=== PATIENT | female | born 1940 | race Two or more races ===

== ENCOUNTER 2018-01-15 13:59 | Inpatient (IN) | payer OTHER, BC ==
--- NOTE | 2018-01-15 14:09 | PDOC ---
History of Present Illness - General Stated Complaint: Ingestion Time Seen by Provider: 01/15/18 14:09 History Source: Family - History of Present Illness Initial Comments: 01/15/18 15:40 77 year old female with PMH kidney transplant (7-8 years ago), atrial fibrillation (unknown if anticoagulated), CKD on HD T/T/S, DM, HTN, HLD BIBA from [facility]. Per pt's son she was being treated for a chronic wound infection, he did not like the care she was receiving there, so he signed out AMA, called EMS and had her brought here. Per son pt's current complaints are altered mental status, paleness, foul-smelling yellow diarrhea. He is concerned she is anemic and has C. diff again. Patient's recent clinical history per the son: Pt was diagnosed with walking pneumonia 01/2017, was given antibiotics. Pt developed C. diff 02/2017 from antibiotic use. Pt was being treated for recurrent c. 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 He states that as a result of her illness her transplanted kidney failed. Pt was born with only one kidney, had a transplant when the one kidney failed 7-8 years ago, son does not know why. Pt had her one transplanted kidney removed 09/2017. He states that as a result of her diabetes and other comorbidities the surgical incision site has been complicated by infection and delayed healing. He states that she had a blood transfusion last sunday, 2 units , he does not know why. She was scheduled to get a PICC line to treat the chronic wound infection at [facility], pt left AMA prior to PICC line being placed. He states she has not had vascular access for days, and that she has been being treated with an antibiotic with dialysis for her wound. Allergies - NKDA Past History - Past Medical History Allergies/Adverse Reactions: Allergies Allergy/AdvReac Type Severity Reaction Status Date / Time No Known Allergies Allergy Verified 01/15/18 14:21 Home Medications: Ambulatory Orders Unobtainable 01/15/18 Review of Systems - Review of Systems Able to Perform ROS?: No Comments:: 01/15/18 15:50 ROS unable to be performed due to AMS. *Physical Exam - Physical Exam Comments: 01/15/18 15:50 Constitutional: Cachectic. contracted. HEENT: head is normocephalic, atraumatic. EOMI. PERRLA. Neck: supple. Full ROM. Heart: regular rhythm. no murmurs, rubs or gallops. Lungs: clear to auscultation bilaterally. no crackles, rhonchi or wheezing. no stridor. Abdomen: linear surgical scar to RLQ, dehiscence noted, no drainage, no surrounding erythema. soft. mild tenderness to palpation of RLQ at the incision site. normal bowel sounds. no rebound, guarding, masses. Extremities: AV fistula to left arm, pulse palpated. Peripheral pulses intact. No lower extremity edema. Neurological: CN 2-12 grossly intact. Moves all four extremities. Psych: awake, alert. combative. does not follow commands. confused. Skin: 9x6 cm sacral decubitus ulcer, stage 1. 8 cm area of erythema to left hip. dressings to bilateral heels, no wound to bilateral heels. Heart Score/ECG Review - ECG Impressions Comment:: 01/15/18 17:04 Rate 86, regular rhythm, normal axis, no acute ST changes. ED Treatment Course - LABORATORY CBC & Chemistry Diagram: 01/18/18 06:00 01/18/18 06:00 Medical Decision Making - Medical Decision Making 01/15/18 15:52 77 year old female with PMH kidney transplant (7-8 years ago), atrial fibrillation (unknown if anticoagulated), CKD on HD T/T/S, DM, HTN, HLD BIBA from [facility]. Per pt's son she was being treated for a chronic wound infection, he did not like the care she was receiving there, so he signed out AMA, called EMS and had her brought here. Per son pt's current complains are altered mental status, paleness, foul-smelling yellow diarrhea. He is concerned she is anemic and has C. diff again. Patient's clinical history per the son: Pt was diagnosed with walking pneumonia 01/2017, was given antibiotics. Pt developed C. diff 02/2017 from antibiotic use. Pt was being treated for recurrent c. 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 He states that as a result of her illness her transplanted kidney failed. Pt was born with only one kidney, had a transplant when the one kidney failed 7-8 years ago, son does not know why. Pt had her one transplanted kidney removed 09/2017. He states that as a result of her diabetes and other comorbidities the surgical incision site has been complicated by infection and delayed healing. He states that she had a blood transfusion last sunday, 2 units , he does not know why. She was scheduled to get a PICC line to treat the chronic wound infection at [facility], pt left AMA prior to PICC line being placed. He states she has not had vascular access for days, and that she has been being treated with Vancomycin with dialysis for her wound. Wounds to sacrum, left hip, RLQ - see HPI. Initial Vital Signs Pulse Resp BP Pulse Ox 83 18 111/55 L 99 01/15/18 14:07 01/15/18 14:07 01/15/18 14:07 01/15/18 14:07 No tachycardia. Rectal temperature 98.9F. Mild hypotension, likely dehydrated, possible early sepsis. Nurse was unable to get vascular access. Will attempt US guided IV. 01/15/18 16:22 Line secured using US guided IV in the right upper arm. Urine is brown and turbid. 01/15/18 16:28 Pt is combative, trying to scratch and hit medical equipment sales. 1 mg IV ativan ordered. IV infiltrated with ativan injection. 01/15/18 17:03 Line secured using US guided IV in the right AC. Blood work sent. 01/15/18 17:33 Urine Test Results Urine Color Yellow 01/15/18 16:25 Urine Appearance Turbid 01/15/18 16:25 Urine pH 7.0 (5.0-8.0) 01/15/18 16:25 Ur Specific [place] 1.014 (1.001-1.035) 01/15/18 16:25 Urine Protein 2+ (NEGATIVE) H 01/15/18 16:25 Urine Glucose (UA) Negative (NEGATIVE) 01/15/18 16:25 Urine Ketones Negative (NEGATIVE) 01/15/18 16:25 Urine Blood 3+ (NEGATIVE) H 01/15/18 16:25 Urine Nitrite Negative (NEGATIVE) 01/15/18 16:25 Urine Bilirubin Negative (<2.0 mg/dL) 01/15/18 16:25 Ur Leukocyte Esterase 2+ (NEGATIVE) H 01/15/18 16:25 Urine Bacteria Many /hpf (NONE SEEN) 01/15/18 16:25 UA displays evidence of UTI. - Pending urine culture. 01/15/18 17:[address] Presley, who was taking care of the patient at [facility], Pt was located at [address]. She states the patient has been admitted for 144 days. She was initially admitted for pneumonia, had recurrent c. diff, had a rejection of her transplanted kidney, requiring dialysis, was anticoagulated for a DVT (2 months ago), transplanted kidney was resected, anticoagulation was stopped when CT non con of abdomen/pelvis revealed fluid collection behind non- healing surgical wound to RLQ, R/O abscess/seroma/hematoma. Surgery recommended an IV contrast CT abdomen/pelvis. They lost vascular access Sunday and were unable to do a contrast study. PICC line was attempted yesterday, but failed. Repeat attempt at PICC line was scheduled for today, family signed the patient out AMA. Hospital stay was complicated by anemia requiring multiple blood transfusions, positive guiac, family refused colonscopy. Pt was decreasing oral intake, was possibly going to get a peg tube. CBC WBC 9.6 K/mm3 (4.0-10.0) 01/15/18 16:49 RBC 2.67 M/mm3 (3.60-5.2) L 01/15/18 16:49 Hgb 8.3 GM/dL (10.7-15.3) L 01/15/18 16:49 Hct 25.2 % (32.4-45.2) L 01/15/18 16:49 MCV 94.5 fl (80-96) 01/15/18 16:49 MCH 30.9 pg (25.7-33.7) 01/15/18 16:49 MCHC 32.7 g/dl (32.0-36.0) 01/15/18 16:49 RDW 18.6 % (11.6-15.6) H 01/15/18 16:49 Plt Count 269 K/MM3 (134-434) 01/15/18 16:49 MPV 8.9 fl (7.5-11.1) 01/15/18 16:49 Absolute Neuts (auto) 7.9 K/mm3 (1.5-8.0) 01/15/18 16:49 Neutrophils % 82.4 % (42.8-82.8) 01/15/18 16:49 Lymphocytes % 10.2 % (8-40) 01/15/18 16:49 Monocytes % 6.8 % (3.8-10.2) 01/15/18 16:49 Eosinophils % 0.2 % (0-4.5) 01/15/18 16:49 Basophils % 0.4 % (0-2.0) 01/15/18 16:49 Nucleated RBC % 0 % (0-0) 01/15/18 16:49 No leukocytosis. No left shift. CMP Sodium 139 mmol/L (136-145) 01/15/18 16:49 Potassium 4.2 mmol/L (3.5-5.1) 01/15/18 16:49 Chloride 101 mmol/L (98-107) 01/15/18 16:49 Carbon Dioxide 26 mmol/L (21-32) 01/15/18 16:49 Anion Gap 12 MMOL/L (8-16) 01/15/18 16:49 BUN 19 mg/dL (7-18) H 01/15/18 16:49 Creatinine 2.6 mg/dL (0.55-1.3) H 01/15/18 16:49 Creat Clearance w eGFR 17.80 (>60) 01/15/18 16:49 Random Glucose 66 mg/dL (74-106) L 01/15/18 16:49 Calcium 8.6 mg/dL (8.5-10.1) 01/15/18 16:49 Total Bilirubin 0.6 mg/dL (0.2-1) 01/15/18 16:49 AST 25 U/L (15-37) 01/15/18 16:49 ALT 12 U/L (13-61) L 01/15/18 16:49 Alkaline Phosphatase 143 U/L (45-117) H 01/15/18 16:49 Troponin I 0.02 ng/ml (0.00-0.05) 01/15/18 16:52 Total Protein 6.6 g/dl (6.4-8.2) 01/15/18 16:49 Albumin 1.4 g/dl (3.4-5.0) L 01/15/18 16:49 No electrolyte abnormalities. No hyperkalemia, no need for emergent dialysis at this time. Cr 2.6, secondary to CKD. Cardiac enzymes normal. Albumin low, likely secondary to malnutrition, pt is cachetic. ABG - metabolic alkalosis. 01/15/18 19:10 I discussed the case with Dr. Carpenter, who will take over care for the patient in the Emergency Department. Pending CT abdomen/pelvis with contrast. *DC/Admit/Observation/Transfer Diagnosis at time of Disposition: Post-operative infection, UTI (urinary tract infection), Altered mental status - Referrals - Patient Instructions - Post Discharge Activity
--- NOTE | 2018-01-15 14:20 | PDOC ---
Attending Attestation - Resident Resident Name: Janet Mckeon - ED Attending Attestation I have performed the following: I have examined & evaluated the patient, The case was reviewed & discussed with the resident, I agree w/resident's findings & plan, Exceptions are as noted - HPI HPI: 01/15/18 14:53 77y F hx of ESRD (on dialysis), recent pna c/b cdiff c/b renal failure sp resection of new kidney september 2017, s/p transfusion for anemia, nonhealing abd wound currently back on dialysis, has been continually hospitalized at [facility] for the majority of 2017, presents to the ED for further mangement. per family, the pt was hospitalized at [facility] and family took the patient left AMA and came directly here due to being unhappy with how they are managed at [facility]. They note she is a bit more altered than usual. The patient is unable to give much history. on exam pt is cachectic appearing confused dry mucus membranes, pulm: cta bl card: rrr, no mrg abd: soft nontender, wound on L abdomen is c/d/i will ck basic labs, will see what pt is being treated for at [facility] 01/15/18 17:52 after multiple attempts using US guided IV, 20g IV was placed in the L AC fossa successfully pt was given 2mg of ativan IM as pt was attempting to scratch and bite me during procedure. 01/15/18 18:23 per the medical team at [facility], as of most recently had a nonhealing wound and had a collection behind the wound that was pending a CT w/ contrast to evaluate what kind of collection is within her abdomen. - Physicial Exam PE: 01/15/18 19:47 see above - Medical Decision Making 01/15/18 18:30 Aries Ceferino - son - power of legislative advocate - [phone] discussed with Aries De La Vega - He is very adamant about not being transferred back to [facility], although all of his care, surgeons and history resides at [facility]. I had an extensive discussion with Aries that [facility] is the best place as there are the appropriate services that are not present at [facility] (ie: Transplant surgery). Apparently family was very unhappy with their service at [facility] and was looking to have the pt transferred out of the hospital to any other hospital. They have been unsuccessful in securing a ' lateral transfer'. So they initiated an AMA to go to another hospital (arrived via [facility] directly from med/surg floor from [facility]). 01/15/18 19:23 pt has ESRD, is dialysis dependent. pt needs a CT to further evaluate her collection. will try to get dialysis VIPIN sp CT Team will discuss with the pts Son and PoA to discuss risk of CT w/ contrast Heart Score/ECG Review - ECG Impressions Comment:: 01/15/18 17:11 Twelve-lead EKG was performed and reviewed by me. There is normal sinus rhythm with a normal rate. Rate of 86 Abnormal R wave progression Normal axis atc Interval of 516 no prior ekg for comparison
[2018-01-15] MEDS ORDERED: SODIUM CHLORIDE 1,000 ML IV STA (15:05)
[2018-01-15] MEDS ORDERED: LORazepam 2 MG/ML SDV VIAL ONE (16:23)
--- NOTE | 2018-01-15 16:41 | EKG ---
Test Reason : Blood Pressure : / mmHG Vent. Rate : 086 BPM Atrial Rate : 086 BPM P-R Int : 178 ms QRS Dur : 110 ms QT Int : 432 ms P-R-T Axes : 081 045 092 degrees QTc Int : 516 ms POOR DATA QUALITY, INTERPRETATION MAY BE ADVERSELY AFFECTED NORMAL SINUS RHYTHM ANTERIOR INFARCT , AGE UNDETERMINED PROLONGED QT ABNORMAL ECG NO PREVIOUS ECGS AVAILABLE Confirmed by MD Megha, Josh ([id number]) on 01/15/2018 4:40:53 PM Referred By: Confirmed By:Josh Cleveland MD
[2018-01-15 16:47] LABS: URINE APPEARANCE TURBID; URINE BILIRUBIN NEGATIVE (<2.0 mg/dL); URINE COLOR YELLOW; URINE GLUCOSE (UA) NEGATIVE (NEGATIVE); URINE KETONE NEGATIVE (NEGATIVE); URINE NITRITE NEGATIVE (NEGATIVE); URINE UROBILINOGEN NEGATIVE mg/dL (0.2-1.0)
[2018-01-15 17:05] LABS: URINE LEUK ESTERASE 2+ (NEGATIVE); URINE PROTEIN 2+ (NEGATIVE)
[2018-01-15 17:13] LABS: URINE BACTERIA MANY /hpf (NONE SEEN)
[2018-01-15 17:24] LABS: BASO % 0.4 % (0-2.0); EOS % 0.2 % (0-4.5); HEMATOCRIT 25.2 % (32.4-45.2); HEMOGLOBIN 8.3 GM/dL (10.7-15.3); LYMPH % 10.2 % (8-40); MCH 30.9 pg (25.7-33.7); MCHC 32.7 g/dl (32.0-36.0); MEAN CELL VOLUME 94.5 fl (80-96); MEAN PLT VOLUME 8.9 fl (7.5-11.1); MONO % 6.8 % (3.8-10.2); NEUT % 82.4 % (42.8-82.8); PLATELET COUNT 269 K/MM3 (134-434); RBC 2.67 M/mm3 (3.60-5.2); RDW 18.6 % (11.6-15.6); WHITE BLOOD COUNT 9.6 K/mm3 (4.0-10.0)
[2018-01-15 17:35] LABS: VENOUS PC02 39.6 mmHg (38-52); VENOUS PH 7.51 (7.32-7.42)
[2018-01-15 17:37] LABS: INR 1.22 (0.83-1.09); PROTHROMBIN TIME (PATIENT) 13.8 SEC (9.7-13.0)
[2018-01-15 17:39] LABS: VENOUS PO2 15.2 mmHg (28-48)
[2018-01-15 17:40] LABS: ACTIVATED PTT 28.3 SECONDS (25.2-36.5)
[2018-01-15 17:46] LABS: ALBUMIN 1.4 g/dl (3.4-5.0); ALK PHOS 143 U/L (45-117); ANION GAP 12 MMOL/L (8-16); BILIRUBIN,TOTAL 0.6 mg/dL (0.2-1); BLOOD UREA NITROGEN 19 mg/dL (7-18); CALCIUM 8.6 mg/dL (8.5-10.1); CHLORIDE 101 mmol/L (98-107); CO2 26 mmol/L (21-32); CREATININE 2.6 mg/dL (0.55-1.3); GLUCOSE,RANDOM 66 mg/dL (74-106); POTASSIUM 4.2 mmol/L (3.5-5.1); SGOT/AST 25 U/L (15-37); SGPT/ALT 12 U/L (13-61); SODIUM 139 mmol/L (136-145); TOT PROT 6.6 g/dl (6.4-8.2)
--- NOTE | 2018-01-15 19:43 | PDOC ---
*Physical Exam - Vital Signs Last Vital Signs Temp Pulse Resp BP Pulse Ox 98.8 F 73 16 110/56 L 96 01/15/18 14:30 01/15/18 18:00 01/15/18 18:00 01/15/18 18:00 01/15/18 18:00 ED Treatment Course - LABORATORY CBC & Chemistry Diagram: 01/15/18 16:49 01/15/18 16:49 - ADDITIONAL ORDERS Additional order review: Laboratory Results 01/15/18 01/15/18 01/15/18 16:52 16:49 16:49 PT with INR INR PTT (Actin FS) VBG pH POC VBG pCO2 POC VBG pO2 Mixed VBG HCO3 Sodium 139 Potassium 4.2 Chloride 101 Carbon Dioxide 26 Anion Gap 12 BUN 19 H Creatinine 2.6 H Creat Clearance w eGFR 17.80 Random Glucose 66 L Calcium 8.6 Total Bilirubin 0.6 AST 25 ALT 12 L Alkaline Phosphatase 143 H Troponin I 0.02 Total Protein 6.6 Albumin 1.4 L Urine Color Urine Appearance Urine pH Ur Specific [place] Urine Protein Urine Glucose (UA) Urine Ketones Urine Blood Urine Nitrite Urine Bilirubin Urine Urobilinogen Ur Leukocyte Esterase Urine WBC (Auto) Urine RBC (Auto) Urine Bacteria Blood Type O POSITIVE Antibody Screen Positive H 01/15/18 01/15/18 01/15/18 16:49 16:45 16:25 PT with INR 13.80 H INR 1.22 H PTT (Actin FS) 28.3 VBG pH 7.51 H POC VBG pCO2 39.6 POC VBG pO2 15.2 L* Mixed VBG HCO3 30.9 H Sodium Potassium Chloride Carbon Dioxide Anion Gap BUN Creatinine Creat Clearance w eGFR Random Glucose Calcium Total Bilirubin AST ALT Alkaline Phosphatase Troponin I Total Protein Albumin Urine Color Yellow Urine Appearance Turbid Urine pH 7.0 Ur Specific [place] 1.014 Urine Protein 2+ H Urine Glucose (UA) Negative Urine Ketones Negative Urine Blood 3+ H Urine Nitrite Negative Urine Bilirubin Negative Urine Urobilinogen Negative Ur Leukocyte Esterase 2+ H Urine WBC (Auto) 286 Urine RBC (Auto) 5 Urine Bacteria Many Blood Type Antibody Screen 01/15/18 16:49 RBC 2.67 L MCV 94.5 MCHC 32.7 RDW 18.6 H MPV 8.9 Neutrophils % 82.4 Lymphocytes % 10.2 Monocytes % 6.8 Eosinophils % 0.2 Basophils % 0.4 - Medications Given in the ED: ED Medications Discontinued Medications Generic Name Dose Route Start Last Admin Trade Name Freq PRN Reason Stop Dose Admin Sodium Chloride 1,000 mls @ 1,000 mls/hr 01/15/18 15:05 01/15/18 17:11 Normal Saline - IV 01/15/18 16:04 Not Given ASDIR STA Lorazepam 1 mg 01/15/18 16:19 01/15/18 16:38 Ativan Injection - IM 01/15/18 16:20 1 mg ONCE ONE Administration Lorazepam 1 mg 01/15/18 16:21 01/15/18 16:25 Ativan Injection - IVPUSH 01/15/18 16:22 1 mg ONCE ONE Administration Medical Decision Making - Medical Decision Making 01/15/18 19:41 Patient signed out by Dr. Mckeon (Resident) and Dr. Awan (Attending) 77 year old female presents to ED c/o 01/15/18 19:49 Case d/w patient's son 01/15/18 21:38 CT abdomen shows
--- NOTE | 2018-01-15 19:47 | PDOC ---
*Physical Exam - Vital Signs Last Vital Signs Temp Pulse Resp BP Pulse Ox 98.8 F 73 16 110/56 L 96 01/15/18 14:30 01/15/18 18:00 01/15/18 18:00 01/15/18 18:00 01/15/18 18:00 <Mohit Rios - Last Filed: 01/16/18 01:50> - Vital Signs Last Vital Signs Temp Pulse Resp BP Pulse Ox 98.8 F 73 16 110/56 L 96 01/15/18 14:30 01/15/18 18:00 01/15/18 18:00 01/15/18 18:00 01/15/18 18:00 <LateshaJoaquin - Last Filed: 01/16/18 02:38> ED Treatment Course - LABORATORY CBC & Chemistry Diagram: 01/15/18 16:49 01/15/18 16:49 - ADDITIONAL ORDERS Additional order review: Laboratory Results 01/15/18 01/15/18 01/15/18 16:52 16:49 16:49 PT with INR INR PTT (Actin FS) VBG pH POC VBG pCO2 POC VBG pO2 Mixed VBG HCO3 Sodium 139 Potassium 4.2 Chloride 101 Carbon Dioxide 26 Anion Gap 12 BUN 19 H Creatinine 2.6 H Creat Clearance w eGFR 17.80 Random Glucose 66 L Calcium 8.6 Total Bilirubin 0.6 AST 25 ALT 12 L Alkaline Phosphatase 143 H Troponin I 0.02 Total Protein 6.6 Albumin 1.4 L Urine Color Urine Appearance Urine pH Ur Specific [place] Urine Protein Urine Glucose (UA) Urine Ketones Urine Blood Urine Nitrite Urine Bilirubin Urine Urobilinogen Ur Leukocyte Esterase Urine WBC (Auto) Urine RBC (Auto) Urine Bacteria Blood Type O POSITIVE Antibody Screen Positive H 01/15/18 01/15/18 01/15/18 16:49 16:45 16:25 PT with INR 13.80 H INR 1.22 H PTT (Actin FS) 28.3 VBG pH 7.51 H POC VBG pCO2 39.6 POC VBG pO2 15.2 L* Mixed VBG HCO3 30.9 H Sodium Potassium Chloride Carbon Dioxide Anion Gap BUN Creatinine Creat Clearance w eGFR Random Glucose Calcium Total Bilirubin AST ALT Alkaline Phosphatase Troponin I Total Protein Albumin Urine Color Yellow Urine Appearance Turbid Urine pH 7.0 Ur Specific [place] 1.014 Urine Protein 2+ H Urine Glucose (UA) Negative Urine Ketones Negative Urine Blood 3+ H Urine Nitrite Negative Urine Bilirubin Negative Urine Urobilinogen Negative Ur Leukocyte Esterase 2+ H Urine WBC (Auto) 286 Urine RBC (Auto) 5 Urine Bacteria Many Blood Type Antibody Screen 01/15/18 16:49 RBC 2.67 L MCV 94.5 MCHC 32.7 RDW 18.6 H MPV 8.9 Neutrophils % 82.4 Lymphocytes % 10.2 Monocytes % 6.8 Eosinophils % 0.2 Basophils % 0.4 - Medications Given in the ED: ED Medications Discontinued Medications Generic Name Dose Route Start Last Admin Trade Name Earleq PRN Reason Stop Dose Admin Sodium Chloride 1,000 mls @ 1,000 mls/hr 01/15/18 15:05 01/15/18 17:11 Normal Saline - IV 01/15/18 16:04 Not Given ASDIR STA Lorazepam 1 mg 01/15/18 16:19 01/15/18 16:38 Ativan Injection - IM 01/15/18 16:20 1 mg ONCE ONE Administration Lorazepam 1 mg 01/15/18 16:21 01/15/18 16:25 Ativan Injection - IVPUSH 01/15/18 16:22 1 mg ONCE ONE Administration <Mohit Rios - Last Filed: 01/16/18 01:50> - LABORATORY CBC & Chemistry Diagram: 01/15/18 16:49 01/15/18 16:49 - ADDITIONAL ORDERS Additional order review: Laboratory Results 01/15/18 01/15/18 01/15/18 16:52 16:49 16:49 PT with INR INR PTT (Actin FS) VBG pH POC VBG pCO2 POC VBG pO2 Mixed VBG HCO3 Sodium 139 Potassium 4.2 Chloride 101 Carbon Dioxide 26 Anion Gap 12 BUN 19 H Creatinine 2.6 H Creat Clearance w eGFR 17.80 Random Glucose 66 L Calcium 8.6 Total Bilirubin 0.6 AST 25 ALT 12 L Alkaline Phosphatase 143 H Troponin I 0.02 Total Protein 6.6 Albumin 1.4 L Urine Color Urine Appearance Urine pH Ur Specific [place] Urine Protein Urine Glucose (UA) Urine Ketones Urine Blood Urine Nitrite Urine Bilirubin Urine Urobilinogen Ur Leukocyte Esterase Urine WBC (Auto) Urine RBC (Auto) Urine Bacteria Blood Type O POSITIVE Antibody Screen Positive H 01/15/18 01/15/18 01/15/18 16:49 16:45 16:25 PT with INR 13.80 H INR 1.22 H PTT (Actin FS) 28.3 VBG pH 7.51 H POC VBG pCO2 39.6 POC VBG pO2 15.2 L* Mixed VBG HCO3 30.9 H Sodium Potassium Chloride Carbon Dioxide Anion Gap BUN Creatinine Creat Clearance w eGFR Random Glucose Calcium Total Bilirubin AST ALT Alkaline Phosphatase Troponin I Total Protein Albumin Urine Color Yellow Urine Appearance Turbid Urine pH 7.0 Ur Specific [place] 1.014 Urine Protein 2+ H Urine Glucose (UA) Negative Urine Ketones Negative Urine Blood 3+ H Urine Nitrite Negative Urine Bilirubin Negative Urine Urobilinogen Negative Ur Leukocyte Esterase 2+ H Urine WBC (Auto) 286 Urine RBC (Auto) 5 Urine Bacteria Many Blood Type Antibody Screen 01/15/18 16:49 RBC 2.67 L MCV 94.5 MCHC 32.7 RDW 18.6 H MPV 8.9 Neutrophils % 82.4 Lymphocytes % 10.2 Monocytes % 6.8 Eosinophils % 0.2 Basophils % 0.4 - Medications Given in the ED: ED Medications Discontinued Medications Generic Name Dose Route Start Last Admin Trade Name Freq PRN Reason Stop Dose Admin Sodium Chloride 1,000 mls @ 1,000 mls/hr 01/15/18 15:05 01/15/18 17:11 Normal Saline - IV 01/15/18 16:04 Not Given ASDIR STA Lorazepam 1 mg 01/15/18 16:19 01/15/18 16:38 Ativan Injection - IM 01/15/18 16:20 1 mg ONCE ONE Administration Lorazepam 1 mg 01/15/18 16:21 01/15/18 16:25 Ativan Injection - IVPUSH 01/15/18 16:22 1 mg ONCE ONE Administration <Ou,Joaquin - Last Filed: 01/16/18 02:38> Medical Decision Making - Medical Decision Making 01/15/18 19:47 Call placed to Aries De La Vega, patient's son and power of employment attorney, for verbal telephone consent for CT. Case was discussed with resident Dr. Jaclyn Carpenter and son agreed. 9:45pm Call placed to [facility] for transfer, awaiting call back from medicine team. 01/15/18 22:[address] Kelly's answering service, surgeon phototypesetting equipment monitor, case was discussed. 01/16/18 01:24 Call placed to [facility] transfer center, awaiting call back back. 01/16/18 01:50 Call returned from [facility] transfer center. Transfer center notes the tranplant surgery is not available overnight and case and insurance will be reviewed at 8am and they will call back in the morning. <Mohit Rios - Last Filed: 01/16/18 01:50> - Medical Decision Making 01/15/18 21:39 Sign out received from Dr. Awan at 7PM. 77y F hx of ESRD (on dialysis), recent pna c/b cdiff c/b renal failure sp resection of new kidney september 2017, s/p transfusion for anemia, nonhealing abd wound currently back on dialysis. CT obtained, showing 4.5cm collection, likely representing abscess. Call to [facility] txfer center placed. 01/15/18 22:[address] Kelly, surgeon phototypesetting equipment monitor, who agrees that this pt requires higher level of care than can be offered here. Recommends transfer for evaluation by transplant surgery. 01/15/18 23:[address] Martinez, transplant surgeon at [facility], a well as hospitalist attending, both of whom refused to accept pt. Dr. Martinez believes pt's primary issues are medical (c diff, UTI, anemia) and does not wish to accept pt to renal transplant service. [facility] hospitalist (Dr. Ansari?) refuses to take pt onto medicine service on grounds that pt has post- op abscess. 01/15/18 23:29 [facility] transfer center called, awaiting callback. 01/16/18 00:30 Pt refused by healthcare corporate account director at [facility], Dr. Reyez, who does not want to accept pt without clarification of insurance information. Attempted to call son to verify, no answer. Pt reassessed - vitals stable, pt alert. 01/16/18 01:07 Attempted to transfer to [facility], who also refused. Dr. Sotelo, hospitalist, refuses to take patient as pt has surgeons at [facility]. HOWEVER, may be amenable to accepting transfer if the transplant surgeons at [facility] are willing to consult on the pt. Transfer center unwilling to call surgeon at this time and states they will try in the morning. 01/16/18 01:25 Pt refused by [facility] for transfer. 01/16/18 01:32 Attempting to transfer to [place] 01/16/18 01:47 [place] transfer center stating they will be unable to transfer until morning , when transplant team arrives. Pt's son no longer returning calls. 01/16/18 02:38 Pt admitted to hospitalist <Joaquin Charlton - Last Filed: 01/16/18 02:38> *DC/Admit/Observation/Transfer - Attestations Scribe Attestion: 01/15/18 19:52 Documentation prepared by Mohit Rios, acting as medical imaging tech for Joaquin Charlton MD. <Mohit Rios - Last Filed: 01/16/18 01:50> - Discharge Dispostion Decision to Admit order: Yes - Attestations Physician Attestion: 01/16/18 02:38 I, Dr. Joaquin Charlton MD, attest that this document has been prepared under my direction and personally reviewed by me in its entirety. I further attest, that it accurately reflects all work, treatment, procedures and medical decision -making performed by me. <Joaquin Charlton - Last Filed: 01/16/18 02:38> Diagnosis at time of Disposition: Post-operative infection, UTI (urinary tract infection), Altered mental status
[2018-01-15] MEDS ORDERED: PIPERACILLIN/TAZOB 4.5 GM 4.5 GM in DEXTROSE 5%-WATER 100 ML IVPB ONE (21:45)
[2018-01-15] MEDS ORDERED: VANCOMYCIN 1,000 MG in DEXTROSE 5%-WATER - 250 ML IVPB ONE (21:45)
[2018-01-15] MEDS ORDERED: DEXTROSE 50%-WATER - 25 GM/50 ML VIAL IVPUSH ONE (22:57)
[2018-01-15] MEDS ORDERED: VANCOMYCIN 1 GRAM (PRE-DOCKED) 1,000 MG/250 ML BAG IVPB ONE ×2 (23:12)
[2018-01-15] MEDS ORDERED: PIPERACILLIN/TAZOB 4.5 GM 4.5 GM/100 ML BAG IVPB ONE (23:12)
[2018-01-15] MEDS ORDERED: DEXTROSE 50%-WATER 25 GM/50 ML DISP.SYRIN ONE (23:40)
--- NOTE | 2018-01-16 02:22 | PN ---
Teaching Attending Note Name of Resident: Fernando Ricci ATTENDING PHYSICIAN STATEMENT I saw and evaluated the patient. I reviewed the resident's note and discussed the case with the resident. I agree with the resident's findings and plan as documented. SUBJECTIVE: 77 Y/O F poor historian and historian taken from ED documentation and discussion with ED physician. Patient was signed out AMA from [facility] by son. Patient reported to have renal failure s/p resection of new kidney on HD and nonhealing abdominal wound. H/o Anemia S/p transfusion. Patient reported to have possible fluid collection which was pending imaging with IV contrast. Family refusing continued care in [facility] and requesting evaluation at this facility or transfer out. OBJECTIVE: GEN:In Moderate distress, arousable but nonverbal HEENT:Temporal wasting, PERRLA, EOMI, Oral mucosa dry CVS:RRR, S1, S2 no murmur appreciated LUNGS: CTA, no wheezing ABD:Soft, NT, ND, BS+ RLQ surgical wound dehiscence with purulent/serous drainage Ext:generalized muscle atrophy and limited ROM with pain on movement Neuro: Alert, not following commands. sensation intact Skin: no rashes, sacral decubitus stage 1. Laboratory Results - last 24 hr 01/15/18 01/15/18 01/15/18 16:25 16:45 16:49 WBC 9.6 RBC 2.67 L Hgb 8.3 L Hct 25.2 L MCV 94.5 MCH 30.9 MCHC 32.7 RDW 18.6 H Plt Count 269 MPV 8.9 Absolute Neuts (auto) 7.9 Neutrophils % 82.4 Lymphocytes % 10.2 Monocytes % 6.8 Eosinophils % 0.2 Basophils % 0.4 Nucleated RBC % 0 PT with INR INR PTT (Actin FS) VBG pH 7.51 H POC VBG pCO2 39.6 POC VBG pO2 15.2 L* Mixed VBG HCO3 30.9 H Sodium Potassium Chloride Carbon Dioxide Anion Gap BUN Creatinine Creat Clearance w eGFR Random Glucose Calcium Total Bilirubin AST ALT Alkaline Phosphatase Troponin I Total Protein Albumin Urine Color Yellow Urine Appearance Turbid Urine pH 7.0 Ur Specific [place] 1.014 Urine Protein 2+ H Urine Glucose (UA) Negative Urine Ketones Negative Urine Blood 3+ H Urine Nitrite Negative Urine Bilirubin Negative Urine Urobilinogen Negative Ur Leukocyte Esterase 2+ H Urine WBC (Auto) 286 Urine RBC (Auto) 5 Urine Bacteria Many Blood Type Antibody Screen Antibody Identification Antigen Identification 01/15/18 01/15/18 01/15/18 16:49 16:49 16:49 WBC RBC Hgb Hct MCV MCH MCHC RDW Plt Count MPV Absolute Neuts (auto) Neutrophils % Lymphocytes % Monocytes % Eosinophils % Basophils % Nucleated RBC % PT with INR 13.80 H INR 1.22 H PTT (Actin FS) 28.3 VBG pH POC VBG pCO2 POC VBG pO2 Mixed VBG HCO3 Sodium 139 Potassium 4.2 Chloride 101 Carbon Dioxide 26 Anion Gap 12 BUN 19 H Creatinine 2.6 H Creat Clearance w eGFR 17.80 Random Glucose 66 L Calcium 8.6 Total Bilirubin 0.6 AST 25 ALT 12 L Alkaline Phosphatase 143 H Troponin I Total Protein 6.6 Albumin 1.4 L Urine Color Urine Appearance Urine pH Ur Specific [place] Urine Protein Urine Glucose (UA) Urine Ketones Urine Blood Urine Nitrite Urine Bilirubin Urine Urobilinogen Ur Leukocyte Esterase Urine WBC (Auto) Urine RBC (Auto) Urine Bacteria Blood Type O POSITIVE Antibody Screen Positive H Antibody Identification Anti c Antigen Identification c Antigen - NEGATIVE 01/15/18 16:52 WBC RBC Hgb Hct MCV MCH MCHC RDW Plt Count MPV Absolute Neuts (auto) Neutrophils % Lymphocytes % Monocytes % Eosinophils % Basophils % Nucleated RBC % PT with INR INR PTT (Actin FS) VBG pH POC VBG pCO2 POC VBG pO2 Mixed VBG HCO3 Sodium Potassium Chloride Carbon Dioxide Anion Gap BUN Creatinine Creat Clearance w eGFR Random Glucose Calcium Total Bilirubin AST ALT Alkaline Phosphatase Troponin I 0.02 Total Protein Albumin Urine Color Urine Appearance Urine pH Ur Specific [place] Urine Protein Urine Glucose (UA) Urine Ketones Urine Blood Urine Nitrite Urine Bilirubin Urine Urobilinogen Ur Leukocyte Esterase Urine WBC (Auto) Urine RBC (Auto) Urine Bacteria Blood Type Antibody Screen Antibody Identification Antigen Identification ASSESSMENT AND PLAN: Metabolic encephalopathy most likely secondary to uremic encephalopathy vs infection. 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 DVT prophylaxis. Case discussed with residence and plans agreed on.
--- NOTE | 2018-01-16 03:08 | HP ---
CHIEF COMPLAINT: PCP: HISTORY OF PRESENT ILLNESS: Pt is a poor historian, history taken from previous records and ED Physician. Pt is a 77 y/o lady with an extensive past medical history of ESRD on HD, resection of recently transplanted kidney (September 2017), DM, HTN, recent C. Diff infection, recent pneumonia, and HLD who was BIBA to [facility] from [facility] as the pt's family signed out AMA and decided to come to [facility]. ER course was notable for: (1) Urinalysis--> Leuk Est 2+ (2) CT Abd/Pelvis--> 4.5 cm collection/Abscess R Hemipelvis (3) Bun/Cr 19/2.6 respectively Recent Travel: None PAST MEDICAL HISTORY: PAST SURGICAL HISTORY: Social History: Smoking: Alcohol: Drugs: Family History: Allergies No Known Allergies Allergy (Verified 01/15/18 14:21) HOME MEDICATIONS: Home Medications Medication Instructions Recorded Unobtainable 01/15/18 REVIEW OF SYSTEMS Pt nonverbal, nonresponsive, unable to obtain ROS PHYSICAL EXAMINATION Vital Signs - 24 hr 01/15/18 01/15/18 01/15/18 14:07 14:30 15:40 Temperature 98.8 F Pulse Rate 83 88 Pulse Rate [ 88 Radial] Respiratory 18 18 16 Rate Blood Pressure 111/55 L 118/82 Blood Pressure 105/66 [Right Arm] O2 Sat by Pulse 99 96 96 Oximetry (%) 01/15/18 01/15/18 01/15/18 17:00 18:00 20:13 Temperature Pulse Rate Pulse Rate [ 71 73 Radial] Respiratory 16 16 Rate Blood Pressure Blood Pressure 104/80 110/56 L [Right Arm] O2 Sat by Pulse 96 96 96 Oximetry (%) 01/15/18 21:22 Temperature 98.4 F Pulse Rate Pulse Rate [ 74 Radial] Respiratory 16 Rate Blood Pressure Blood Pressure 127/67 [Right Arm] O2 Sat by Pulse 97 Oximetry (%) General: Obtunded HEENT: NC/AT. PERRLA. Neck: Supple. Full ROM. Heart: RRR No MRG S1 S2 Lungs: CTA B/L Abdomen: Left abdominal open wound s/p kidney resection, no drainage or discharge. Skin: sacral decubitus ulcer, stage 1. Laboratory Results - last 24 hr 01/15/18 01/15/18 01/15/18 16:25 16:45 16:49 WBC 9.6 RBC 2.67 L Hgb 8.3 L Hct 25.2 L MCV 94.5 MCH 30.9 MCHC 32.7 RDW 18.6 H Plt Count 269 MPV 8.9 Absolute Neuts (auto) 7.9 Neutrophils % 82.4 Lymphocytes % 10.2 Monocytes % 6.8 Eosinophils % 0.2 Basophils % 0.4 Nucleated RBC % 0 PT with INR INR PTT (Actin FS) VBG pH 7.51 H POC VBG pCO2 39.6 POC VBG pO2 15.2 L* Mixed VBG HCO3 30.9 H Sodium Potassium Chloride Carbon Dioxide Anion Gap BUN Creatinine Creat Clearance w eGFR Random Glucose Calcium Total Bilirubin AST ALT Alkaline Phosphatase Troponin I Total Protein Albumin Urine Color Yellow Urine Appearance Turbid Urine pH 7.0 Ur Specific [place] 1.014 Urine Protein 2+ H Urine Glucose (UA) Negative Urine Ketones Negative Urine Blood 3+ H Urine Nitrite Negative Urine Bilirubin Negative Urine Urobilinogen Negative Ur Leukocyte Esterase 2+ H Urine WBC (Auto) 286 Urine RBC (Auto) 5 Urine Bacteria Many Blood Type Antibody Screen Antibody Identification Antigen Identification 01/15/18 01/15/18 01/15/18 16:49 16:49 16:49 WBC RBC Hgb Hct MCV MCH MCHC RDW Plt Count MPV Absolute Neuts (auto) Neutrophils % Lymphocytes % Monocytes % Eosinophils % Basophils % Nucleated RBC % PT with INR 13.80 H INR 1.22 H PTT (Actin FS) 28.3 VBG pH POC VBG pCO2 POC VBG pO2 Mixed VBG HCO3 Sodium 139 Potassium 4.2 Chloride 101 Carbon Dioxide 26 Anion Gap 12 BUN 19 H Creatinine 2.6 H Creat Clearance w eGFR 17.80 Random Glucose 66 L Calcium 8.6 Total Bilirubin 0.6 AST 25 ALT 12 L Alkaline Phosphatase 143 H Troponin I Total Protein 6.6 Albumin 1.4 L Urine Color Urine Appearance Urine pH Ur Specific [place] Urine Protein Urine Glucose (UA) Urine Ketones Urine Blood Urine Nitrite Urine Bilirubin Urine Urobilinogen Ur Leukocyte Esterase Urine WBC (Auto) Urine RBC (Auto) Urine Bacteria Blood Type O POSITIVE Antibody Screen Positive H Antibody Identification Anti c Antigen Identification c Antigen - NEGATIVE 01/15/18 16:52 WBC RBC Hgb Hct MCV MCH MCHC RDW Plt Count MPV Absolute Neuts (auto) Neutrophils % Lymphocytes % Monocytes % Eosinophils % Basophils % Nucleated RBC % PT with INR INR PTT (Actin FS) VBG pH POC VBG pCO2 POC VBG pO2 Mixed VBG HCO3 Sodium Potassium Chloride Carbon Dioxide Anion Gap BUN Creatinine Creat Clearance w eGFR Random Glucose Calcium Total Bilirubin AST ALT Alkaline Phosphatase Troponin I 0.02 Total Protein Albumin Urine Color Urine Appearance Urine pH Ur Specific [place] Urine Protein Urine Glucose (UA) Urine Ketones Urine Blood Urine Nitrite Urine Bilirubin Urine Urobilinogen Ur Leukocyte Esterase Urine WBC (Auto) Urine RBC (Auto) Urine Bacteria Blood Type Antibody Screen Antibody Identification Antigen Identification ASSESSMENT/PLAN: Pt is a 77 y/o lady with an extensive past medical history of ESRD on HD, resection of recently transplanted kidney (September 2017), DM, HTN, recent C. Diff infection, recent pneumonia, and HLD who was BIBA to [facility] from [facility] as the pt's family signed out AMA and decided to come to [facility]. #Post-op fluid collection/Abscess Vanc/Zosyn in ED No WBC VSS UTI Pt already on Vanc/Zosyn #Renal Failure S/p recent resection of transplanted kidney #Hepatic Encephalopathy Mildly elevated BUN Per chart, pt's family states pt is less alert compared to yesterday #Common Bile duct Dilation No overt cholecystitis, sludge noted on CT FEN No Fluids Monitor electrolytes Renal Diet when tolerated DVT ppx: SCD's Dispo: Awaiting possible transfer to transplant center Visit type - Emergency Visit Emergency Visit: Yes Care time: The patient presented to the Emergency Department on the above date and was hospitalized for further evaluation of their emergent condition. - New Patient This patient is new to me today: Yes Date on this admission: 01/16/18 - Critical Care Critical Care patient: No Hospitalist Screening - Colonoscopy Questionnaire Colonoscopy Questionnaire: Colonoscopy Questionnaire - Patient: 50 - 75 years old and never had a screening colonoscopy: Unknown History of colon or rectal polyps, or CA: Unknown History of IBD, Crohn's disease or UC: Unknown History of abdominal radiation therapy as a child: Unknown - Relative: 1 with colon or rectal CA, or polyps at age 60 or younger: Unknown Colon or rectal CA diagnosed at age 45 or younger: Unknown Multiple relatives with colon or rectal CA: Unknown - Outcome: Screening Result: Negative Screen
[2018-01-16] MEDS ORDERED: MORPHINE SULFATE 2 MG/ML VIAL IVPUSH PRN (06:38)
[2018-01-16] MEDS ORDERED: MORPHINE SULFATE 2 MG/ML VIAL ONE (06:44)
[2018-01-16 09:09] LABS: BASO % 1.1 % (0-2.0); EOS % 0.6 % (0-4.5); HEMATOCRIT 23.7 % (32.4-45.2); HEMOGLOBIN 7.8 GM/dL (10.7-15.3); MCH 30.6 pg (25.7-33.7); MCHC 32.7 g/dl (32.0-36.0); MEAN CELL VOLUME 93.7 fl (80-96); MEAN PLT VOLUME 8.4 fl (7.5-11.1); MONO % 7.8 % (3.8-10.2); NEUT % 79.5 % (42.8-82.8); PLATELET COUNT 247 K/MM3 (134-434); RBC 2.53 M/mm3 (3.60-5.2); RDW 18.7 % (11.6-15.6); WHITE BLOOD COUNT 8.9 K/mm3 (4.0-10.0)
[2018-01-16 09:31] LABS: INR 1.15 (0.83-1.09)
[2018-01-16 09:34] LABS: ACTIVATED PTT 21.1 SECONDS (25.2-36.5)
[2018-01-16 09:44] LABS: ANION GAP 8 MMOL/L (8-16); BLOOD UREA NITROGEN 23 mg/dL (7-18); CALCIUM 8.6 mg/dL (8.5-10.1); CHLORIDE 100 mmol/L (98-107); CO2 27 mmol/L (21-32); CREATININE 3.1 mg/dL (0.55-1.3); GLUCOSE,RANDOM 117 mg/dL (74-106); MAGNESIUM 2.1 mg/dL (1.8-2.4); PHOSPHOROUS 4.2 mg/dL (2.5-4.9); POTASSIUM 4.3 mmol/L (3.5-5.1); SODIUM 135 mmol/L (136-145)
--- NOTE | 2018-01-16 12:30 | CONSULT ---
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 She is unable to give history. I called her son and he was able to give most of the history. She had a failed renal transplant. THe kidney was removed. She was taken off of immunusuppresive agents. She was last dialyzed yesterday. She received about 2 and a half hours of HD then it was stopped as her blood pressure was low. She received abx here in the ER. She is arousable but is very uncomfortable and unable to give history. There was a fluid colleciton seen on CT scan in the right hemipelvis that is about 4.5 cm. Family do not want the patient to go back to [facility]. Family feel that her mental status has been deteriorating over the last few weeks. - History Source History Provided By: Patient - Past Medical History Cardio/Vascular: Yes: HTN, Hyperlipdemia Renal/: Yes: Renal Failure, Renal Inusuff, Hemodialysis Heme/Onc: Yes: Anemia Infectious Disease: Yes: C-Diff Endocrine: Yes: Diabetes Mellitus - Past Surgical History Past Surgical History: Yes: Kidney Transplant Additional Surgical History: resection of transplanted kidney - Smoking History Smoking history: Never smoked Home Medications - Allergies Allergies/Adverse Reactions: Allergies Allergy/AdvReac Type Severity Reaction Status Date / Time No Known Allergies Allergy Verified 01/15/18 14:21 - Home Medications Home Medications: Ambulatory Orders Unobtainable 01/15/18 Family Disease History - Family Disease History Family History: Unable to Obtain Review of Systems Unable to obtain ROS, reason: pt not cooperating - Review of Systems Constitutional: reports: Malaise Eyes: reports: No Symptoms Cardiovascular: denies: Shortness of Breath Gastrointestinal: reports: Abdominal Pain Musculoskeletal: reports: No Symptoms Neurological: reports: Change in LOC, Other (pt is more drowsy) Physical Exam Vital Signs: Vital Signs Temperature 98.2 F 01/16/18 09:39 Pulse Rate 73 01/16/18 09:39 Respiratory Rate 14 01/16/18 09:39 Blood Pressure 108/62 01/16/18 09:39 O2 Sat by Pulse Oximetry (%) 96 01/16/18 09:39 Constitutional: Yes: Mild Distress Eyes: Yes: Conjunctiva Clear HENT: Yes: Atraumatic Cardiovascular: Yes: S1, S2 Respiratory: Yes: CTA Bilaterally Gastrointestinal: Yes: Tenderness, Other (dressing in place) Renal/: Yes: Other (dressing in place) Musculoskeletal: Yes: Muscle Weakness Edema: Yes Edema: LLE: Trace, RLE: Trace Neurological: Yes: Other (drowsy) Labs: CBC, BMP 01/16/18 08:50 01/16/18 08:50 Laboratory Tests 01/15/18 01/15/18 01/15/18 16:25 16:49 16:49 WBC 9.6 Hgb 8.3 L Plt Count 269 Sodium Potassium Chloride BUN 19 H Creatinine 2.6 H Albumin 1.4 L Urine Color Yellow Urine Protein 2+ H 01/16/18 01/16/18 08:50 08:50 WBC 8.9 Hgb 7.8 L Plt Count 247 Sodium 135 L Potassium 4.3 Chloride 100 BUN 23 H Creatinine 3.1 H Albumin Urine Color Urine Protein Imaging - Results Cat Scan: Report Reviewed Assessment/Plan Current Medications Generic Name Dose Route Start Last Admin Trade Name Freq PRN Reason Stop Dose Admin Morphine Sulfate 1 mg 01/16/18 06:38 01/16/18 06:55 Morphine Sulfate IVPUSH 1 mg Q4H PRN Administration PAIN LEVEL 7 - 10 Impression 1. ESRD 2. failed kidney transplant 3. hx DM 4. Hx HTN 5. altered mental status 6. post op infection 7. c.diff 8. a-fib Plan - called and discussed care with her son at length - awaiting records from [facility] arrange for HD tomorrow - ID eval - surgery eval - cont wound care - pt is not off of immunosuppresive agents - discussed with medical team - will follow pt
--- NOTE | 2018-01-16 13:21 | EKG ---
Test Reason : Blood Pressure : / mmHG Vent. Rate : 071 BPM Atrial Rate : 071 BPM P-R Int : 198 ms QRS Dur : 108 ms QT Int : 458 ms P-R-T Axes : 056 064 011 degrees QTc Int : 497 ms NORMAL SINUS RHYTHM LOW VOLTAGE QRS CANNOT RULE OUT ANTERIOR INFARCT (CITED ON OR BEFORE 15-JAN-2018) ABNORMAL ECG WHEN COMPARED WITH ECG OF 15-JAN-2018 15:15, T WAVE INVERSION NO LONGER EVIDENT IN LATERAL LEADS Confirmed by ADELAIDE MYERS MD ([id number]) on 01/16/2018 1:21:12 PM Referred By: Confirmed By:ADELAIDE MYERS MD
--- NOTE | 2018-01-16 14:55 | CON.ID ---
Consult Consult Specialty:: infectious disease Referred by:: hospitalist Reason for Consultation:: wound - History of Present Illness Chief Complaint: post op infection History of Present Illness: 77 yo female history of renal transplant left AMA after 144 day admission at [facility] - she was orignally admitted for pneumonia, then had cdiff with 4 recurrences requiring fecal transplan she had rejection of the transplanted kidney on September 2017 and is on HD she had a wound dehiscence and a question of a fluid collection at the site of the removed kidney no immunosuppressives now we are waiting records from [facility] no fevers apparently has been more lethargic over the last 2 weeks she got vancomycin and zosyn in ED no access, was supposed to get a picc line at [facility] family refuses to return there - History Source History Provided By: Medical Record Limitations to Obtaining History: Clinical Condition - Past Medical History Cardio/Vascular: Yes: AFIB, Deep Vein Thrombosis (2 months ago), HTN Renal/: Yes: Renal Failure Endocrine: Yes: Diabetes Mellitus - Past Surgical History Additional Surgical History: s/p kidney transplant and removal - Smoking History Smoking history: Never smoked - Social History Usual Living Arrangement: With Child ADL: Family Assistance Home Medications - Allergies Allergies/Adverse Reactions: Allergies Allergy/AdvReac Type Severity Reaction Status Date / Time No Known Allergies Allergy Verified 01/15/18 14:21 - Home Medications Home Medications: Ambulatory Orders Unobtainable 01/15/18 Family Disease History - Family Disease History Family History: Unable to Obtain Physical Exam Vital Signs: Vital Signs Temperature 98.2 F 01/16/18 09:39 Pulse Rate 73 01/16/18 09:39 Respiratory Rate 14 01/16/18 09:39 Blood Pressure 108/62 01/16/18 09:39 O2 Sat by Pulse Oximetry (%) 96 01/16/18 09:39 Constitutional: Yes: Cachectic, Other (combative) HENT: Yes: WNL Neck: Yes: WNL Cardiovascular: Yes: Regular Rate and Rhythm Respiratory: Yes: Regular, CTA Bilaterally Gastrointestinal: Yes: Normal Bowel Sounds, Soft, Other (shallow open wound no purulence or erythema at site of surgical incision) ...Rectal Exam: Yes: Deferred Musculoskeletal: Yes: WNL Edema: No Wound/Incision: Yes: Other (sacral ulcer eschar, no purulence, no erythema) Labs: CBC, BMP 01/16/18 08:50 01/16/18 08:50 Imaging - Results Chest X-ray: Report Reviewed, Image Reviewed Cat Scan: Report Reviewed Problem List - Problems (1) Post-operative infection Assessment/Plan: superficial abdominal wound is clean, no erythema collection at site of prior surgical removal of kidney- no fevers, would hold antibiotics and evaluate, ?IR drainage with cultures Code(s): T81.4XXA - INFECTION FOLLOWING A PROCEDURE, INITIAL ENCOUNTER (2) C. difficile colitis Assessment/Plan: history recurrence requiring fecal transplant will follow avoid unnescessary antibiotics Code(s): A04.72 - ENTEROCOLITIS D/T CLOSTRIDIUM DIFFICILE, NOT SPCF RECUR (3) Altered mental status Assessment/Plan: answers questions, knows name in Macedonian, is quite combative Code(s): R41.82 - ALTERED MENTAL STATUS, UNSPECIFIED (4) ESRD (end stage renal disease) on dialysis Code(s): N18.6 - END STAGE RENAL DISEASE; Z99.2 - DEPENDENCE ON RENAL DIALYSIS Assessment/Plan hold antibiotics evaluate abdominal collection, ir drainage if possible with appropriate cultures - routine, fungal clinically stable from ID standpoint
--- NOTE | 2018-01-16 15:52 | CONSULT ---
Consultation: REQUESTING PROVIDER:Ramses JOSÉ CONSULT REQUEST: We have been asked to evaluate this patient for sequelae of explantation of a renal transplant doen 10/08 HISTORY OF PRESENT ILLNESS:patient left [facility] after 140+ days after sequelae of a failed renal transplant; she was brought her by family for evaluation. Chart reviewed; patient cannot provide hx. PHYSICAL EXAMINATION Vital Signs - 24 hr 01/15/18 01/15/18 01/15/18 17:00 18:00 20:13 Temperature Pulse Rate [ Left Radial] Pulse Rate [ 71 73 Radial] Respiratory 16 16 Rate Blood Pressure 104/80 110/56 L [Right Arm] O2 Sat by Pulse 96 96 96 Oximetry (%) 01/15/18 01/16/18 01/16/18 21:22 08:23 09:39 Temperature 98.4 F 98 F 98.2 F Pulse Rate [ 73 Left Radial] Pulse Rate [ 74 76 Radial] Respiratory 16 16 14 Rate Blood Pressure 127/67 117/67 108/62 [Right Arm] O2 Sat by Pulse 97 97 96 Oximetry (%) 01/16/18 15:12 Temperature 98 F Pulse Rate [ 83 Left Radial] Pulse Rate [ Radial] Respiratory 18 Rate Blood Pressure 118/63 [Right Arm] O2 Sat by Pulse 98 Oximetry (%) GENERAL: Awake, alert, and not oriented, in no acute distress. HEAD: Normal with no signs of trauma. NECK: Normal range of motion, supple without lymphadenopathy, JVD, or masses. ABDOMEN: Soft, nontender, not distended, normoactive bowel sounds, no guarding, no rebound, no masses. No hepatomegaly or splenomegaly. No hernias; open wound right lower quadrant 98% healed by secondary intention MUSCULOSKELETAL: Normal range of motion at all joints. No bony deformities or tenderness. No CVA tenderness. UPPER EXTREMITIES: 2+ pulses, warm, well-perfused. No cyanosis. No clubbing. Cap refill <2 seconds. No peripheral edema. LOWER EXTREMITIES: 2+ pulses, warm, well-perfused. No calf tenderness. No peripheral edema. NEUROLOGICAL: Cranial nerves II-XII intact. PSYCHIATRIC: UnCooperative. Poor eye contact. InAppropriate mood and affect. SKIN: Warm, dry, normal turgor, no rashes or lesions noted. Laboratory Results - last 24 hr 01/15/18 01/15/18 01/15/18 08:50 16:25 16:45 WBC RBC Hgb Hct MCV MCH MCHC RDW Plt Count MPV Absolute Neuts (auto) Neutrophils % Lymphocytes % Monocytes % Eosinophils % Basophils % Nucleated RBC % PT with INR INR PTT (Actin FS) VBG pH 7.51 H POC VBG pCO2 39.6 POC VBG pO2 15.2 L* Mixed VBG HCO3 30.9 H Sodium Potassium Chloride Carbon Dioxide Anion Gap BUN Creatinine Creat Clearance w eGFR Random Glucose Calcium Phosphorus Magnesium Total Bilirubin AST ALT Alkaline Phosphatase Troponin I Total Protein Albumin Urine Color Yellow Urine Appearance Turbid Urine pH 7.0 Ur Specific [place] 1.014 Urine Protein 2+ H Urine Glucose (UA) Negative Urine Ketones Negative Urine Blood 3+ H Urine Nitrite Negative Urine Bilirubin Negative Urine Urobilinogen Negative Ur Leukocyte Esterase 2+ H Urine WBC (Auto) 286 Urine RBC (Auto) 5 Urine Bacteria Many Blood Type O POSITIVE Antibody Screen Antibody Identification Antigen Identification 01/15/18 01/15/18 01/15/18 16:49 16:49 16:49 WBC 9.6 RBC 2.67 L Hgb 8.3 L Hct 25.2 L MCV 94.5 MCH 30.9 MCHC 32.7 RDW 18.6 H Plt Count 269 MPV 8.9 Absolute Neuts (auto) 7.9 Neutrophils % 82.4 Lymphocytes % 10.2 Monocytes % 6.8 Eosinophils % 0.2 Basophils % 0.4 Nucleated RBC % 0 PT with INR 13.80 H INR 1.22 H PTT (Actin FS) 28.3 VBG pH POC VBG pCO2 POC VBG pO2 Mixed VBG HCO3 Sodium 139 Potassium 4.2 Chloride 101 Carbon Dioxide 26 Anion Gap 12 BUN 19 H Creatinine 2.6 H Creat Clearance w eGFR 17.80 Random Glucose 66 L Calcium 8.6 Phosphorus Magnesium Total Bilirubin 0.6 AST 25 ALT 12 L Alkaline Phosphatase 143 H Troponin I Total Protein 6.6 Albumin 1.4 L Urine Color Urine Appearance Urine pH Ur Specific [place] Urine Protein Urine Glucose (UA) Urine Ketones Urine Blood Urine Nitrite Urine Bilirubin Urine Urobilinogen Ur Leukocyte Esterase Urine WBC (Auto) Urine RBC (Auto) Urine Bacteria Blood Type Antibody Screen Antibody Identification Antigen Identification 01/15/18 01/15/18 01/16/18 16:49 16:52 08:50 WBC 8.9 RBC 2.53 L Hgb 7.8 L Hct 23.7 L MCV 93.7 MCH 30.6 MCHC 32.7 RDW 18.7 H Plt Count 247 MPV 8.4 Absolute Neuts (auto) 7.1 Neutrophils % 79.5 Lymphocytes % 11.0 Monocytes % 7.8 Eosinophils % 0.6 D Basophils % 1.1 Nucleated RBC % 0 PT with INR INR PTT (Actin FS) VBG pH POC VBG pCO2 POC VBG pO2 Mixed VBG HCO3 Sodium Potassium Chloride Carbon Dioxide Anion Gap BUN Creatinine Creat Clearance w eGFR Random Glucose Calcium Phosphorus Magnesium Total Bilirubin AST ALT Alkaline Phosphatase Troponin I 0.02 Total Protein Albumin Urine Color Urine Appearance Urine pH Ur Specific [place] Urine Protein Urine Glucose (UA) Urine Ketones Urine Blood Urine Nitrite Urine Bilirubin Urine Urobilinogen Ur Leukocyte Esterase Urine WBC (Auto) Urine RBC (Auto) Urine Bacteria Blood Type O POSITIVE Antibody Screen Positive H Antibody Identification Anti c Antigen Identification c Antigen - NEGATIVE 01/16/18 01/16/18 08:50 08:50 WBC RBC Hgb Hct MCV MCH MCHC RDW Plt Count MPV Absolute Neuts (auto) Neutrophils % Lymphocytes % Monocytes % Eosinophils % Basophils % Nucleated RBC % PT with INR 13.00 INR 1.15 H PTT (Actin FS) 21.1 L VBG pH POC VBG pCO2 POC VBG pO2 Mixed VBG HCO3 Sodium 135 L Potassium 4.3 Chloride 100 Carbon Dioxide 27 Anion Gap 8 BUN 23 H Creatinine 3.1 H Creat Clearance w eGFR 14.53 Random Glucose 117 H Calcium 8.6 Phosphorus 4.2 Magnesium 2.1 Total Bilirubin AST ALT Alkaline Phosphatase Troponin I Total Protein Albumin Urine Color Urine Appearance Urine pH Ur Specific [place] Urine Protein Urine Glucose (UA) Urine Ketones Urine Blood Urine Nitrite Urine Bilirubin Urine Urobilinogen Ur Leukocyte Esterase Urine WBC (Auto) Urine RBC (Auto) Urine Bacteria Blood Type Antibody Screen Antibody Identification Antigen Identification Active Medications Generic Name Dose Route Start Last Admin Trade Name Freq PRN Reason Stop Dose Admin Morphine Sulfate 1 mg 01/16/18 06:38 01/16/18 06:55 Morphine Sulfate IVPUSH 1 mg Q4H PRN Administration PAIN LEVEL 7 - 10 CT a/p reviewed ASSESSMENT/PLAN: Healing surgical wound and intraabdominal abscess; suggest IR evaluation for drainage and local wound care; no surgical intervention is indicated at this time. Joaquin Kelly MD FACS Visit type - Emergency Visit Emergency Visit: Yes ED Registration Date: 01/16/18 Care time: The patient presented to the Emergency Department on the above date and was hospitalized for further evaluation of their emergent condition. - New Patient This patient is new to me today: Yes Date on this admission: 01/17/18 - Critical Care Critical Care patient: No
[2018-01-16] MEDS ORDERED: SODIUM CHLORIDE 250 ML IV PRN (16:30)
[2018-01-16] MEDS ORDERED: ACETAMINOPHEN 1000 MG/100 ML VIAL (NON FORMULARY) IVPB PRN (17:50)
--- NOTE | 2018-01-16 17:53 | PN ---
Physical Exam: SUBJECTIVE: Patient seen and examined at bedside this morning. At baseline, patient is nonverbal, and moans with pain. OBJECTIVE: Vital Signs Period Temp Pulse Resp BP Sys/Franco Pulse Ox Last 24 Hr 98 F-98.4 F 73-83 14-18 108-127/56-67 96-98 GENERAL: Lying in bed, in no acute distress. LUNGS: Breath soundsclear to auscultation bilaterally. HEART: Regular rate and rhythm, S1, S2 without murmur, rub or gallop. ABDOMEN: Soft, nontender, nondistended, normoactive bowel sounds, +open wound, nonpurulent, no swelling or erythema, R periumbilical area EXTREMITIES: 2+ pulses, warm, well-perfused, no edema. SKIN: Warm, dry, normal turgor. Laboratory Results - last 24 hr 01/15/18 01/15/18 01/16/18 08:50 16:49 08:50 WBC 8.9 RBC 2.53 L Hgb 7.8 L Hct 23.7 L MCV 93.7 MCH 30.6 MCHC 32.7 RDW 18.7 H Plt Count 247 MPV 8.4 Absolute Neuts (auto) 7.1 Neutrophils % 79.5 Lymphocytes % 11.0 Monocytes % 7.8 Eosinophils % 0.6 D Basophils % 1.1 Nucleated RBC % 0 PT with INR INR PTT (Actin FS) Sodium Potassium Chloride Carbon Dioxide Anion Gap BUN Creatinine Creat Clearance w eGFR Random Glucose Calcium Phosphorus Magnesium Blood Type O POSITIVE O POSITIVE Antibody Screen Positive H Antibody Identification Anti c Antigen Identification c Antigen - NEGATIVE 01/16/18 01/16/18 08:50 08:50 WBC RBC Hgb Hct MCV MCH MCHC RDW Plt Count MPV Absolute Neuts (auto) Neutrophils % Lymphocytes % Monocytes % Eosinophils % Basophils % Nucleated RBC % PT with INR 13.00 INR 1.15 H PTT (Actin FS) 21.1 L Sodium 135 L Potassium 4.3 Chloride 100 Carbon Dioxide 27 Anion Gap 8 BUN 23 H Creatinine 3.1 H Creat Clearance w eGFR 14.53 Random Glucose 117 H Calcium 8.6 Phosphorus 4.2 Magnesium 2.1 Blood Type Antibody Screen Antibody Identification Antigen Identification Active Medications Generic Name Dose Route Start Last Admin Trade Name Freq PRN Reason Stop Dose Admin Acetaminophen 1,000 mg 01/16/18 17:50 Ofirmev Injection - IVPB Q6H PRN PAIN LEVEL 6-10 ASSESSMENT/PLAN: Patient is a 77 year old female, previously admitted at [facility] for 144 days (s/p failed renal transplant, s/p removal), discharged AMA, as per son, brought at the ED yesterday for lethargy. #Abdominal wound: post-op wound dehiscence -wound is clean, no purulence or erythema, with fluid collection -ID (Dr. Shanks) consulted. -Will hold antibiotics for now pending cultures -For IR-guided drainage of fluid collection -Send GS/routine culture with fungal cultures #ESRD: failed renal transplant, s/p removal -Nephrology (Dr. Winters) consulted. -For hemodialysis tomorrow. #Altered mental status -rule out metabolic encephalopathy from renal failure vs wound infection -Nephrology, ID, and surgery consulted. -Speech and swallow evaluation. -monitor closely #FEN -No access at this time. -Will need computer terminal operator access -Puree diet. -NPO after midnight for IR-guided drainage of fluid collection #Prophylaxis -SCDs,for possible IR-guided drainage of fluid collection #Disposition -Declined for transfer by multiple tertiary care centers. -Son declines transfer to [facility]. Visit type - Emergency Visit Emergency Visit: Yes ED Registration Date: 01/16/18 Care time: The patient presented to the Emergency Department on the above date and was hospitalized for further evaluation of their emergent condition. - New Patient This patient is new to me today: Yes Date on this admission: 01/16/18 - Critical Care Critical Care patient: No
--- NOTE | 2018-01-16 18:01 | PN ---
Teaching Attending Note Name of Resident: Marisela Simmons ATTENDING PHYSICIAN STATEMENT I saw and evaluated the patient. I reviewed the resident's note and discussed the case with the resident. I agree with the resident's findings and plan as documented with exceptions below. SUBJECTIVE: Patient seen and examined. Non verbal, moans, unable to do ROS. OBJECTIVE: Vital Signs Period Temp Pulse Resp BP Sys/Franco Pulse Ox Last 24 Hr 98 F-98.4 F 73-83 14-18 108-127/56-67 96-98 Intake & Output 01/13/18 01/14/18 01/15/18 01/16/18 23:59 23:59 23:59 23:59 Weight 90 lb General: lying in bed in no acute distress Chest: poor effort, no rales or wheezing Abdomen: soft, 4 cm open wound right jaspal-umbilical region, clean base, no active discharge or surrounding swelling or erythema noted, non specific on general palpation, no voluntary or involuntary guarding or rigidity, positive bowel sounds Extremities: no edema, moves freely Active Medications Acetaminophen (Ofirmev Injection -) 750 mg IVPB Q6H PRN PRN Reason: PAIN LEVEL 6-10 Laboratory Results - last 24 hr 01/15/18 01/15/18 01/16/18 08:50 16:49 08:50 WBC 8.9 RBC 2.53 L Hgb 7.8 L Hct 23.7 L MCV 93.7 MCH 30.6 MCHC 32.7 RDW 18.7 H Plt Count 247 MPV 8.4 Absolute Neuts (auto) 7.1 Neutrophils % 79.5 Lymphocytes % 11.0 Monocytes % 7.8 Eosinophils % 0.6 D Basophils % 1.1 Nucleated RBC % 0 PT with INR INR PTT (Actin FS) Sodium Potassium Chloride Carbon Dioxide Anion Gap BUN Creatinine Creat Clearance w eGFR Random Glucose Calcium Phosphorus Magnesium Blood Type O POSITIVE O POSITIVE Antibody Screen Positive H Antibody Identification Anti c Antigen Identification c Antigen - NEGATIVE 01/16/18 01/16/18 08:50 08:50 WBC RBC Hgb Hct MCV MCH MCHC RDW Plt Count MPV Absolute Neuts (auto) Neutrophils % Lymphocytes % Monocytes % Eosinophils % Basophils % Nucleated RBC % PT with INR 13.00 INR 1.15 H PTT (Actin FS) 21.1 L Sodium 135 L Potassium 4.3 Chloride 100 Carbon Dioxide 27 Anion Gap 8 BUN 23 H Creatinine 3.1 H Creat Clearance w eGFR 14.53 Random Glucose 117 H Calcium 8.6 Phosphorus 4.2 Magnesium 2.1 Blood Type Antibody Screen Antibody Identification Antigen Identification CT a/p results reviewed Microbiology 01/15/18 16:52 Blood - Peripheral Venous Blood Culture - Preliminary NO GROWTH OBTAINED AFTER 24 HOURS, INCUBATION TO CONTINUE FOR 4 DAYS. 01/15/18 16:52 Blood - Peripheral Venous Blood Culture - Preliminary NO GROWTH OBTAINED AFTER 24 HOURS, INCUBATION TO CONTINUE FOR 4 DAYS. Urine Test Results Urine Color Yellow 01/15/18 16:25 Urine Appearance Turbid 01/15/18 16:25 Urine pH 7.0 (5.0-8.0) 01/15/18 16:25 Ur Specific [place] 1.014 (1.001-1.035) 01/15/18 16:25 Urine Protein 2+ (NEGATIVE) H 01/15/18 16:25 Urine Glucose (UA) Negative (NEGATIVE) 01/15/18 16:25 Urine Ketones Negative (NEGATIVE) 01/15/18 16:25 Urine Blood 3+ (NEGATIVE) H 01/15/18 16:25 Urine Nitrite Negative (NEGATIVE) 01/15/18 16:25 Urine Bilirubin Negative (<2.0 mg/dL) 01/15/18 16:25 Ur Leukocyte Esterase 2+ (NEGATIVE) H 01/15/18 16:25 Urine Bacteria Many /hpf (NONE SEEN) 01/15/18 16:25 ASSESSMENT AND PLAN: 77 yof with reportedly prolonged stay at [facility] for PNA, cdiff (requiring fecal transplant), also with failed transplant kidney in 09/2017 s/p removal/off immunosuppressants on HD, son signed patient AMA, brought in with lethargy and for further care. 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 Surgery/ID input noted. u/a noted. Discussed with ID, given extensive C difficile history, hold off on antibiotics for now. IR guided fluid aspiration for gm stain/culture/fungal studies. Monitor closely for now. Renal consulted with Dr. Winters, case discussed. Plan for HD tomorrow. Retrieve prior records from [facility]. jail access RUE duplex neg. Dysphagia pureed diet with aspiration precautions. Speech/swallow eval. DVTPPX, hold for now pending possible IR guided drainage of the same. SOn adamantly declines transfer to [facility]. Declined for transfer by multiple tertiary care centers including [facility], [facility], [place]. Monitor closely, plan as above, address further management based on clinical course.
--- NOTE | 2018-01-17 08:36 | PN ---
Teaching Attending Note Name of Resident: Marisela Simmons ATTENDING PHYSICIAN STATEMENT I saw and evaluated the patient. I reviewed the resident's note and discussed the case with the resident. I agree with the resident's findings and plan as documented with exceptions below. SUBJECTIVE: Patient seen and examined. combative, son Constantin at bedside. unable to do ROS. OBJECTIVE: Vital Signs Period Temp Pulse Resp BP Sys/Franco Pulse Ox Last 24 Hr 96.8 F-98.2 F 73-103 14-20 92-119/52-63 94-98 Intake & Output 01/14/18 01/15/18 01/16/18 01/17/18 23:59 23:59 23:59 23:59 Weight 90 lb 90 lb 110 lb General: combative in bed, no acute distress Chest: limited exam given lack of co-operation, no rales or wheezing appreciated Abdomen: soft, non specific moaning on generalized exam, no voluntary or involuntary guarding or rigidity, ND, positive bowel sounds mild yellowish foul smelling ?purulent discharge from wound site, no surrounding swelling or erythema, unchanged exam otherwise Extremities: no edema Active Medications Acetaminophen (Ofirmev Injection -) 750 mg IVPB Q6H PRN PRN Reason: PAIN LEVEL 6-10 Albumin Human (Albumin Human 25%) 12.5 gm IVPB Q30M HARPAL Artificial Tears (Artificial Tears) 1 drop OU DAILY PRN PRN Reason: DRY EYES Epoetin Abe (Epogen -) 4,000 unit IVPUSH ONCE ONE Stop: 01/17/18 18:18 Sodium Chloride (Normal Saline -) 250 mls @ 3,000 mls/hr IV PRN PRN PRN Reason: Hypotension during Dialysis Stop: 01/17/18 18:17 Laboratory Results - last 24 hr 01/15/18 01/16/18 01/16/18 08:50 08:50 08:50 WBC 8.9 RBC 2.53 L Hgb 7.8 L Hct 23.7 L MCV 93.7 MCH 30.6 MCHC 32.7 RDW 18.7 H Plt Count 247 MPV 8.4 Absolute Neuts (auto) 7.1 Neutrophils % 79.5 Lymphocytes % 11.0 Monocytes % 7.8 Eosinophils % 0.6 D Basophils % 1.1 Nucleated RBC % 0 PT with INR 13.00 INR 1.15 H PTT (Actin FS) 21.1 L Sodium Potassium Chloride Carbon Dioxide Anion Gap BUN Creatinine Creat Clearance w eGFR Random Glucose Calcium Phosphorus Magnesium Blood Type O POSITIVE 01/16/18 08:50 WBC RBC Hgb Hct MCV MCH MCHC RDW Plt Count MPV Absolute Neuts (auto) Neutrophils % Lymphocytes % Monocytes % Eosinophils % Basophils % Nucleated RBC % PT with INR INR PTT (Actin FS) Sodium 135 L Potassium 4.3 Chloride 100 Carbon Dioxide 27 Anion Gap 8 BUN 23 H Creatinine 3.1 H Creat Clearance w eGFR 14.53 Random Glucose 117 H Calcium 8.6 Phosphorus 4.2 Magnesium 2.1 Blood Type Microbiology 01/15/18 16:25 Abdomen Wound Culture - Preliminary Non Lactose Fermenting Gnb Non Lactose Fermenting Gnb#2 Non Lactose Fermenting Gnb#3 01/15/18 16:25 Urine - Urine German Urine Culture - Preliminary Proteus Species 01/15/18 16:52 Blood - Peripheral Venous Blood Culture - Preliminary NO GROWTH OBTAINED AFTER 24 HOURS, INCUBATION TO CONTINUE FOR 4 DAYS. 01/15/18 16:52 Blood - Peripheral Venous Blood Culture - Preliminary NO GROWTH OBTAINED AFTER 24 HOURS, INCUBATION TO CONTINUE FOR 4 DAYS. ASSESSMENT AND PLAN: 77 yof with reportedly prolonged stay at [facility] for PNA, cdiff (requiring fecal transplant), also with failed transplant kidney in 09/2017 s/p removal/off immunosuppressants on HD, son signed patient AMA, brought in with lethargy and for further care. 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 Wound drainage recultures. Wound/urine cultures noted, discussed with Dr. Shanks, follow up recs. Surgery input noted. IR guided fluid aspiration for gm stain/culture/fungal studies. Discussed with Dr. Apple, recommend CT A/P with contrast study. Discussed with Dr. Winters, plan for HD after the study. Monitor closely for now. Plan for transfusion with HD today. Retrieve prior records from [facility]. Per son Constantin, his brother Aries who is the POA to bring in records today. terminal operator access RUE duplex neg. Check LE DVT. Dysphagia pureed diet with aspiration precautions. Speech/swallow eval. DVTPPX, hold for now pending possible IR guided drainage of the same. Son adamantly declines transfer to [facility]. Declined for transfer by multiple tertiary care centers including [facility], [facility], [place]. Monitor closely, plan as above, address further management based on clinical course. Plan discussed with dion Killian at bedside in detail, care co-ordinated with IR , Dr. Apple, Dr. Winters, Dr. Shanks nursing. Total time spent in patient care including above 45 min.
[2018-01-17] MEDS ORDERED: ARTIFICIAL TEARS (POLYVINYL ALCOHOL) OPTH DROPS OU PRN (10:00)
--- NOTE | 2018-01-17 10:35 | CONSULT ---
Admitting History and Physical - Primary Care Physician PCP: Alfredo Islas - Admission History of Present Illness: Per EMR: 77 yo f with reportedly prolonged stay at [facility] for PNA, cdiff (requiring fecal transplant), also with failed transplant kidney in 09/2017 s/p removal/off immunosuppressants on HD, son signed patient AMA, brought in with lethargy and for further care. 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 Selected Entries 01/17/18 01/17/18 02:00 06:00 Temperature 97.7 F 96.8 F L Laboratory Tests 01/16/18 08:50 WBC 8.9 History Source: Medical Record Limitations to Obtaining History: Clinical Condition - Past Medical History Cardiovascular: Yes: HTN, Hyperlipdemia Renal/: Yes: Renal Failure, Renal Inusuff, Hemodialysis ...: No Heme/Onc: Yes: Anemia Infectious Disease: Yes: C-Diff Endocrine: Yes: Diabetes Mellitus - Past Surgical History Past Surgical History: Yes: Kidney Transplant - Advance Directives Advance Directives: Yes: Health Care Proxy - Smoking History Smoking history: Never smoked Have you smoked in the past 12 months: No - Alcohol/Substance Use Hx Alcohol Use: No - Social History ADL: Family Assistance History - Admission Reason For Visit: POSTOPERATIVE INFECTION - Diagnostics X-ray: Report Reviewed - General Mental Status: Uncooperative Attention: Moderate Impairment (Opens eyes when aroused, seems completely awake but then curls up and closes eyes. Poor cooperation.) Speech Evaluation - Communication Primary Language: SOUTH SUDANESE - Speech Production Intelligibility: Yes: WNL (said a couple of words? "can't?") - Speech Characteristics Voice Phonatory-based Quality: Yes: Normal Nasal Resonance: Normal Articulation: Yes: Precise - Swallow Evaluation/Bedside Assessment Current Nutritional Intake: Dysphagia Pureed, Thin Liquids Oral Secretions: Yes: WFL Recommendations - Speech Evaluation, Impression/Plan Impression: Opens eyes when aroused, seems completely awake but then curls up and closes eyes. Poor cooperation.Lethargy vs confusion/AMS vs depression. Pt did not cooperate/participate. No PO trials could be given. Agree with puree for now. Feed only if interactive.To follow.
[2018-01-17] MEDS: ACETAMINOPHEN 1000 MG/100 ML VIAL (NON FORMULARY) IVPB PRN (13:30)
--- NOTE | 2018-01-17 14:13 | PN ---
Progress Note, Physician History of Present Illness: Pt seen and examined at bedside. She is going for a ct scan today with contrast. Will get HD after. She is more awake today but is uncomfortable. She denies shortness of breath. - Current Medication List Current Medications: Active Medications Acetaminophen (Ofirmev Injection -) 750 mg IVPB Q6H PRN PRN Reason: PAIN LEVEL 6-10 Last Admin: 01/17/18 13:30 Dose: 750 mg Albumin Human (Albumin Human 25%) 12.5 gm IVPB Q30M [facility] Artificial Tears (Artificial Tears) 1 drop OU DAILY PRN PRN Reason: DRY EYES Epoetin Abe (Epogen -) 4,000 unit IVPUSH ONCE ONE Stop: 01/17/18 18:18 Sodium Chloride (Normal Saline -) 250 mls @ 3,000 mls/hr IV PRN PRN PRN Reason: Hypotension during Dialysis Stop: 01/17/18 18:17 - Objective Vital Signs: Vital Signs Temperature 96.8 F L 01/17/18 06:00 Pulse Rate 76 01/17/18 06:00 Respiratory Rate 18 01/17/18 06:00 Blood Pressure 117/58 L 01/17/18 06:00 O2 Sat by Pulse Oximetry (%) 94 L 01/16/18 19:30 Constitutional: Yes: Mild Distress Eyes: Yes: Conjunctiva Clear HENT: Yes: Atraumatic Cardiovascular: Yes: S1, S2 Respiratory: Yes: CTA Bilaterally Gastrointestinal: Yes: Soft Genitourinary: Yes: Incontinence Musculoskeletal: Yes: Muscle Weakness Edema: No Wound/Incision: Yes: Dressing Dry and Intact Neurological: Yes: Oriented Psychiatric: Yes: Oriented Labs: CBC, BMP 01/16/18 08:50 01/16/18 08:50 INR, PTT INR 1.15 (0.83-1.09) H 01/16/18 08:50 Problem List - Problems (1) ESRD (end stage renal disease) on dialysis Code(s): N18.6 - END STAGE RENAL DISEASE; Z99.2 - DEPENDENCE ON RENAL DIALYSIS Assessment/Plan Current Medications Generic Name Dose Route Start Last Admin Trade Name Freq PRN Reason Stop Dose Admin Acetaminophen 750 mg 01/16/18 17:54 01/17/18 13:30 Ofirmev Injection - IVPB 750 mg Q6H PRN Administration PAIN LEVEL 6-10 Albumin Human 12.5 gm 01/17/18 18:30 Albumin Human 25% IVPB Q30M [facility] Artificial Tears 1 drop 01/17/18 10:00 Artificial Tears OU DAILY PRN DRY EYES Epoetin Abe 4,000 unit 01/17/18 18:17 Epogen - IVPUSH 01/17/18 18:18 ONCE ONE Sodium Chloride 250 mls @ 3,000 mls/hr 01/16/18 18:17 Normal Saline - IV 01/17/18 18:17 PRN PRN Hypotension during Dialysis Impression 1. ESRD 2. failed kidney transplant 3. hx DM 4. Hx HTN 5. altered mental status 6. post op infection 7. c.diff 8. a-fib Plan - will arrange for HD today - pt getting a unit of blood, can give on HD - follow up ct scan results - surgery follow up - pts son is bringing in her records - cont wound care - pt is off of immunosuppresive agents - discussed with medical team - will follow pt
[2018-01-17] MEDS ORDERED: EPOETIN ALFA 2,000 UNIT/1 ML VIAL IVPUSH ONE (16:45)
[2018-01-17] MEDS: LIDOCAINE 5% TOPICAL PATCH TP SCH (17:34)
--- NOTE | 2018-01-17 18:19 | PN ---
Physical Exam: SUBJECTIVE: Patient seen and examined at bedside this morning. No acute events overnight. Patient is nonverbal at baseline. OBJECTIVE: Vital Signs Period Temp Pulse Resp BP Sys/Franco Pulse Ox Last 24 Hr 96.5 F-98.1 F 76-113 18-20 92-117/43-58 94-94 GENERAL: Lying in bed, in no acute distress. LUNGS: Breath sounds clear to auscultation bilaterally. HEART: Regular rate and rhythm, S1, S2 without murmur, rub or gallop. ABDOMEN: Soft, nontender, nondistended, normoactive bowel sounds, +open wound with yellowish discharge, no swelling or erythema. EXTREMITIES: 2+ pulses, warm, well-perfused, no edema. SKIN: Warm, dry, normal turgor. Laboratory Results - last 24 hr 01/15/18 01/15/18 08:50 16:49 Blood Type O POSITIVE O POSITIVE Antibody Screen Positive H Antibody Identification Anti c Antigen Identification E Antigen - NEGATIVE c Antigen - NEGATIVE Crossmatch See Detail Active Medications Generic Name Dose Route Start Last Admin Trade Name Freq PRN Reason Stop Dose Admin Acetaminophen 750 mg 01/16/18 17:54 01/17/18 13:30 Ofirmev Injection - IVPB 750 mg Q6H PRN Administration PAIN LEVEL 6-10 Artificial Tears 1 drop 01/17/18 10:00 Artificial Tears OU DAILY PRN DRY EYES Lidocaine 1 patch 01/17/18 14:45 01/17/18 17:34 Lidoderm Patch - TP 1 patch DAILY [facility] Administration Miscellaneous 1 each 01/17/18 22:00 Lidoderm Patch Removal DAILY@2200 [facility] Microbiology 01/15/18 16:52 Blood - Peripheral Venous Blood Culture - Preliminary NO GROWTH OBTAINED AFTER 48 HOURS, INCUBATION TO CONTINUE FOR 3 DAYS. 01/15/18 16:52 Blood - Peripheral Venous Blood Culture - Preliminary NO GROWTH OBTAINED AFTER 48 HOURS, INCUBATION TO CONTINUE FOR 3 DAYS. 01/15/18 16:25 Abdomen Gram Stain - Final 01/15/18 16:25 Abdomen Wound Culture - Preliminary Non Lactose Fermenting Gnb Non Lactose Fermenting Gnb#2 Non Lactose Fermenting Gnb#3 01/15/18 16:25 Urine - Urine German Urine Culture - Preliminary Proteus Species ASSESSMENT/PLAN: Patient is a 77 year old female, previously admitted at [facility] for 144 days (s/p failed renal transplant, s/p removal), discharged AMA, as per son, brought at the ED for lethargy. #Abdominal wound: post-op wound dehiscence -(+)yellowish discharge draining from wound -Repeat wound cultures. -Surgery (Dr. Kelly) consulted. Recommendations appreciated. -ID (Dr. Shanks) consulted. Recommendations appreciated. -Will hold antibiotics. -For IR-guided drainage of fluid collection -Send GS/routine culture with fungal cultures. -Dr. Gamez consulted. Recommendations appreciated. -CT scan with contrast ordered for evaluation of fluid collection. -Obtained and reviewed records from [facility]. #ESRD: failed renal transplant, s/p removal -Nephrology (Dr. Winters) consulted. Recommendations appreciated. -For hemodialysis today after CT with contrast done. -For transfusion of 1 unit pRBC, can be given while on HD #Altered mental status -rule out metabolic encephalopathy from renal failure vs wound infection -Nephrology, ID, and surgery consulted. -Speech and swallow evaluation. Recommendations appreciated. -No PO trials could be given. -Agree with puree for now. -Feed only if interactive. -monitor closely #FEN -No access at this time. -Will need [facility] access -Puree diet. -NPO after midnight for IR-guided drainage of fluid collection #Prophylaxis -SCDs, for possible IR-guided drainage of fluid collection #Disposition -Declined for transfer by multiple tertiary care centers. -Son declines transfer to [facility]. Visit type - Emergency Visit Emergency Visit: Yes ED Registration Date: 01/16/18 Care time: The patient presented to the Emergency Department on the above date and was hospitalized for further evaluation of their emergent condition. - New Patient This patient is new to me today: Yes Date on this admission: 01/17/18 - Critical Care Critical Care patient: No
[2018-01-17] MEDS: ALBUMIN HUMAN 25% 12.5 GM/50 ML VIAL IVPB SCH ×4 (22:28→22:33)
[2018-01-17 22:31] LABS: HEMATOCRIT 29.2 % (32.4-45.2); HEMOGLOBIN 9.7 GM/dL (10.7-15.3); MCH 30.6 pg (25.7-33.7); MCHC 33.3 g/dl (32.0-36.0); MEAN CELL VOLUME 91.9 fl (80-96); MEAN PLT VOLUME 8.4 fl (7.5-11.1); PLATELET COUNT 287 K/MM3 (134-434); RBC 3.18 M/mm3 (3.60-5.2); RDW 16.8 % (11.6-15.6); WHITE BLOOD COUNT 3.4 K/mm3 (4.0-10.0)
[2018-01-17 22:59] LABS: ANION GAP 13 MMOL/L (8-16); BLOOD UREA NITROGEN 26 mg/dL (7-18); CALCIUM 9.1 mg/dL (8.5-10.1); CHLORIDE 100 mmol/L (98-107); CO2 24 mmol/L (21-32); CREATININE 3.2 mg/dL (0.55-1.3); GLUCOSE,RANDOM 98 mg/dL (74-106); POTASSIUM 4.3 mmol/L (3.5-5.1); SODIUM 136 mmol/L (136-145)
[2018-01-18] MEDS: LIDOCAINE PATCH REMOVAL MC SCH ×2 (00:11→22:24)
[2018-01-18] MEDS: ACETAMINOPHEN 1000 MG/100 ML VIAL (NON FORMULARY) IVPB PRN ×2 (01:46→10:34)
[2018-01-18 06:50] LABS: BASO % 0.9 % (0-2.0); EOS % 1.1 % (0-4.5); HEMATOCRIT 24.6 % (32.4-45.2); HEMOGLOBIN 8.3 GM/dL (10.7-15.3); LYMPH % 12.7 % (8-40); MCH 30.5 pg (25.7-33.7); MCHC 33.6 g/dl (32.0-36.0); MEAN CELL VOLUME 90.7 fl (80-96); MEAN PLT VOLUME 8.6 fl (7.5-11.1); MONO % 7.7 % (3.8-10.2); NEUT % 77.6 % (42.8-82.8); PLATELET COUNT 266 K/MM3 (134-434); RBC 2.71 M/mm3 (3.60-5.2); RDW 17.8 % (11.6-15.6); WHITE BLOOD COUNT 9.2 K/mm3 (4.0-10.0)
[2018-01-18 08:02] LABS: ALBUMIN 1.6 g/dl (3.4-5.0); ALK PHOS 111 U/L (45-117); ANION GAP 14 MMOL/L (8-16); BILIRUBIN,TOTAL 1.6 mg/dL (0.2-1); BLOOD UREA NITROGEN 23 mg/dL (7-18); CALCIUM 8.8 mg/dL (8.5-10.1); CHLORIDE 106 mmol/L (98-107); CO2 25 mmol/L (21-32); GLUCOSE,RANDOM 62 mg/dL (74-106); MAGNESIUM 1.9 mg/dL (1.8-2.4); PHOSPHOROUS 3.3 mg/dL (2.5-4.9); POTASSIUM 3.8 mmol/L (3.5-5.1); SGOT/AST 29 U/L (15-37); SGPT/ALT 14 U/L (13-61); SODIUM 144 mmol/L (136-145)
[2018-01-18] MEDS: LIDOCAINE 5% TOPICAL PATCH TP SCH (10:21)
--- NOTE | 2018-01-18 14:16 | PN ---
Progress Note, Physician History of Present Illness: Pt seen and examined at bedside. She had a BIJU drain placed by IR today. She was dialyzed last night. - Current Medication List Current Medications: Active Medications Acetaminophen (Ofirmev Injection -) 750 mg IVPB Q6H PRN PRN Reason: PAIN LEVEL 6-10 Last Admin: 01/18/18 10:34 Dose: 750 mg Artificial Tears (Artificial Tears) 1 drop OU DAILY PRN PRN Reason: DRY EYES Lidocaine (Lidoderm Patch -) 1 patch TP DAILY [facility] Last Admin: 01/18/18 10:21 Dose: 1 patch Miscellaneous (Lidoderm Patch Removal) 1 each MC DAILY@2200 [facility] Last Admin: 01/18/18 00:11 Dose: 1 each - Objective Vital Signs: Vital Signs Temperature 97.8 F 01/18/18 10:00 Pulse Rate 67 01/18/18 13:19 Respiratory Rate 19 01/18/18 13:19 Blood Pressure 120/71 01/18/18 13:19 O2 Sat by Pulse Oximetry (%) 100 01/18/18 13:19 Constitutional: Yes: Cachectic Cardiovascular: Yes: S1, S2 Respiratory: Yes: CTA Bilaterally Gastrointestinal: Yes: Soft, Other Genitourinary: Yes: Other (dressing in place, pt s/p IR drainage) Musculoskeletal: Yes: Muscle Weakness Edema: No Neurological: Yes: Other (awake) Psychiatric: Yes: Agitated Labs: CBC, BMP 01/18/18 06:00 01/18/18 06:00 INR, PTT INR 1.15 (0.83-1.09) H 01/16/18 08:50 Problem List - Problems (1) ESRD (end stage renal disease) on dialysis Code(s): N18.6 - END STAGE RENAL DISEASE; Z99.2 - DEPENDENCE ON RENAL DIALYSIS Assessment/Plan Current Medications Generic Name Dose Route Start Last Admin Trade Name Freq PRN Reason Stop Dose Admin Acetaminophen 750 mg 01/16/18 17:54 01/18/18 10:34 Ofirmev Injection - IVPB 750 mg Q6H PRN Administration PAIN LEVEL 6-10 Artificial Tears 1 drop 01/17/18 10:00 Artificial Tears OU DAILY PRN DRY EYES Lidocaine 1 patch 01/17/18 14:45 01/18/18 10:21 Lidoderm Patch - TP 1 patch DAILY [facility] Administration Miscellaneous 1 each 01/17/18 22:00 01/18/18 00:11 Lidoderm Patch Removal MC 1 each DAILY@2200 [facility] Administration Impression 1. ESRD 2. failed kidney transplant 3. hx DM 4. Hx HTN 5. altered mental status 6. post op infection 7. c.diff 8. a-fib Plan - HD tomorrow - s/p IR drainage - follow cultures - ID follow up - monitor hg - epogen for anemia - discussed with medical team - cont wound care - pt is off of immunosuppresive agents - discussed with medical team - will follow pt
--- NOTE | 2018-01-18 15:14 | PN ---
Teaching Attending Note Name of Resident: Marisela Simmons ATTENDING PHYSICIAN STATEMENT I saw and evaluated the patient. I reviewed the resident's note and discussed the case with the resident. I agree with the resident's findings and plan as documented with exceptions below. SUBJECTIVE: Patient seen and examined, calmer today, incomprehensible speech, unable to assess for ROS. Looks more comfortable today. OBJECTIVE: Vital Signs Period Temp Pulse Resp BP Sys/Franco Pulse Ox Last 24 Hr 97.4 F-98.4 F 67-106 18-27 94-142/43-95 95-100 Intake & Output 01/15/18 01/16/18 01/17/18 01/18/18 23:59 23:59 23:59 23:59 Intake Total 400 100 Balance 400 100 Weight 90 lb 90 lb 110 lb 110 lb General: lying in bed, opens eyes, comfortable, incomprehensible Chest: poor effort, no rales or wheezing Abdomen:soft, right sided abdominal wound exam unchanged, no surrounding erythema or discharge, Extremities: no edema Active Medications Acetaminophen (Ofirmev Injection -) 750 mg IVPB Q6H PRN PRN Reason: PAIN LEVEL 6-10 Last Admin: 01/18/18 10:34 Dose: 750 mg Albumin Human (Albumin Human 25%) 12.5 gm IVPB Q30M [facility] Artificial Tears (Artificial Tears) 1 drop OU DAILY PRN PRN Reason: DRY EYES Epoetin Abe (Epogen -) 6,000 unit IVPUSH ONCE ONE Stop: 01/19/18 14:17 Sodium Chloride (Normal Saline -) 250 mls @ 3,000 mls/hr IV PRN PRN PRN Reason: Hypotension during Dialysis Stop: 01/19/18 14:16 Lidocaine (Lidoderm Patch -) 1 patch TP DAILY [facility] Last Admin: 01/18/18 10:21 Dose: 1 patch Miscellaneous (Lidoderm Patch Removal) 1 each MC DAILY@2200 [facility] Last Admin: 01/18/18 00:11 Dose: 1 each Laboratory Results - last 24 hr 01/15/18 01/17/18 01/17/18 16:49 21:45 21:45 WBC 3.4 L RBC 3.18 L Hgb 9.7 L Hct 29.2 L D MCV 91.9 MCH 30.6 MCHC 33.3 RDW 16.8 H Plt Count 287 MPV 8.4 Absolute Neuts (auto) Neutrophils % Lymphocytes % Monocytes % Eosinophils % Basophils % Nucleated RBC % Sodium 136 Potassium 4.3 Chloride 100 Carbon Dioxide 24 Anion Gap 13 BUN 26 H Creatinine 3.2 H Creat Clearance w eGFR 14.01 Random Glucose 98 Calcium 9.1 Phosphorus Magnesium Total Bilirubin AST ALT Alkaline Phosphatase Total Protein Albumin Blood Type O POSITIVE Antibody Screen Positive H Antibody Identification Anti c Antigen Identification c Antigen - NEGATIVE Crossmatch See Detail 01/18/18 01/18/18 06:00 06:00 WBC 9.2 RBC 2.71 L Hgb 8.3 L Hct 24.6 L D MCV 90.7 MCH 30.5 MCHC 33.6 RDW 17.8 H Plt Count 266 MPV 8.6 Absolute Neuts (auto) 7.1 Neutrophils % 77.6 Lymphocytes % 12.7 Monocytes % 7.7 Eosinophils % 1.1 D Basophils % 0.9 Nucleated RBC % 0 Sodium 144 Potassium 3.8 Chloride 106 Carbon Dioxide 25 Anion Gap 14 BUN 23 H Creatinine 3.0 H Creat Clearance w eGFR 15.09 Random Glucose 62 L Calcium 8.8 Phosphorus 3.3 Magnesium 1.9 Total Bilirubin 1.6 H AST 29 ALT 14 Alkaline Phosphatase 111 Total Protein 6.0 L Albumin 1.6 L Blood Type Antibody Screen Antibody Identification Antigen Identification Crossmatch Microbiology 01/15/18 16:25 Abdomen Gram Stain - Final 01/15/18 16:25 Abdomen Wound Culture - Final Escherichia Coli Esbl Ship Ceiler Escherichia Coli Esbl Ship Ceiler#2 Proteus Mirabilis 01/15/18 16:25 Urine - Urine German Urine Culture - Final Escherichia Coli Esbl Ship Ceiler 01/17/18 11:40 Wound-Other Gram Stain - Final 01/17/18 11:40 Wound-Other Wound Culture - Preliminary Non Lactose Fermenting Gnb Proteus Species 01/15/18 16:52 Blood - Peripheral Venous Blood Culture - Preliminary NO GROWTH OBTAINED AFTER 48 HOURS, INCUBATION TO CONTINUE FOR 3 DAYS. 01/15/18 16:52 Blood - Peripheral Venous Blood Culture - Preliminary NO GROWTH OBTAINED AFTER 48 HOURS, INCUBATION TO CONTINUE FOR [address] guided ASSESSMENT AND PLAN: 77 yof with reportedly prolonged stay at [facility] for PNA, cdiff (requiring fecal transplant), 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 Superficial wound cx with ESBL. Discussed with Dr. Shanks, Ertapenem HD dosing. PO vanco given extensive C difficile history. Afebrile, normal WBC, hemodynamics stable. Surgery input noted. Renal Input appreciated, for HD tomorrow. Will need car painter access. Records from [facility] reviewed in detail, prolonged hospital stay with transplant nephrectomy 11/05, course complicated by afib/wide complex tachycardia (family declined coumadin, was on eliquis), also severe anemia (Hb 5.6 requiring multiple transfusion), declined PEG, was seen by palliative care. Found on fluid collection on CT A/p in 01/07, plan was for CT with contrast and IR guided aspiration as the last documentation. She was also planned for PICC, also reported MDR E. Coli, was on meropenem with HD for the same. Eliquis was discontinued given her anemia, fluid collection and plan for intervention. LE duplex here neg for DVT. Plan was discussed with son in detail and all questions answered on 01/17. DIscussed with Dr. Gamez, Dr. Winters, Dr. Shanks. Dysphagia pureed diet with aspiration precautions when awake as tolerated. Speech/swallow eval. DVTPPX, start on heparin now. Risks outweigh benefits for full dose AC given ongoing anemia, fluid collection, need for intervention and close hemodynamic monitoring. Current Duplex LE neg. . Son adamantly declines transfer to [facility]. Declined for transfer by multiple tertiary care centers including [facility], [facility], [facility]. Monitor closely, plan as above, address further management based on clinical course. Total time spent including detailed review of [facility] records, discussion with ID, production operations manager, IR, surgery and co-ordination of care 50 min.
--- NOTE | 2018-01-18 15:57 | PN ---
Progress Note (short form) - Note Progress Note: much more alert Vital Signs Period Temp Pulse Resp BP Sys/Franco Pulse Ox Last 24 Hr 97.4 F-98.4 F 67-106 18-27 94-142/43-95 95-100 cor-rrr lungs clear abd soft, +hanny drain with bloody cloudy fluid ext no edema CBC, BMP 01/18/18 06:00 01/18/18 06:00 Microbiology 01/15/18 16:25 Abdomen Gram Stain - Final 01/15/18 16:25 Abdomen Wound Culture - Final Escherichia Coli Esbl Trauma Nurse Escherichia Coli Esbl Trauma Nurse#2 Proteus Mirabilis 01/15/18 16:25 Urine - Urine German Urine Culture - Final Escherichia Coli Esbl Trauma Nurse 01/17/18 11:40 Wound-Other Gram Stain - Final 01/17/18 11:40 Wound-Other Wound Culture - Preliminary Non Lactose Fermenting Gnb Proteus Species 01/15/18 16:52 Blood - Peripheral Venous Blood Culture - Preliminary NO GROWTH OBTAINED AFTER 48 HOURS, INCUBATION TO CONTINUE FOR 3 DAYS. 01/15/18 16:52 Blood - Peripheral Venous Blood Culture - Preliminary NO GROWTH OBTAINED AFTER 48 HOURS, INCUBATION TO CONTINUE FOR 3 DAYS. a/p s/p IR drainage of infected hematoma?? start ertapenem dosed for HD add po vancomycin given cdiff history if no iv access this weekend can give gent 80 mg after hd in am until iv access can be obtained esrd/hd d/w hospitalist Problem List - Problems (1) Post-operative infection Code(s): T81.4XXA - (2) C. difficile colitis Code(s): A04.72 - ENTEROCOLITIS D/T CLOSTRIDIUM DIFFICILE, NOT SPCF RECUR (3) Altered mental status Code(s): R41.82 - ALTERED MENTAL STATUS, UNSPECIFIED (4) ESRD (end stage renal disease) on dialysis Code(s): N18.6 - END STAGE RENAL DISEASE; Z99.2 - DEPENDENCE ON RENAL DIALYSIS
[2018-01-18] MEDS: ERTAPENEM SODIUM 0.5 GM in SODIUM CHLORIDE 50 ML IVPB SCH (17:14)
[2018-01-18] MEDS: VANCOMYCIN 250 MG/5 ML ORAL SOLUTION PO SCH (17:14)
--- NOTE | 2018-01-18 17:18 | PN ---
Physical Exam: SUBJECTIVE: Patient seen and examined at bedside this morning. No acute events overnight. Patient is nonverbal at baseline. OBJECTIVE: Vital Signs Period Temp Pulse Resp BP Sys/Franco Pulse Ox Last 24 Hr 97.4 F-98.4 F 67-106 18- 94-142/43-95 95-100 GENERAL: Lying in bed, in no acute distress. LUNGS: Breath sounds clear to auscultation bilaterally. HEART: Regular rate and rhythm, S1, S2 without murmur, rub or gallop. ABDOMEN: Soft, nontender, nondistended, normoactive bowel sounds, +open wound with yellowish discharge, no swelling or erythema. BIJU drain in place draining thick, dark red fluid. EXTREMITIES: 2+ pulses, warm, well-perfused, no edema. SKIN: Warm, dry, normal turgor. Laboratory Results - last 24 hr 01/15/18 01/17/18 01/17/18 16:49 21:45 21:45 WBC 3.4 L RBC 3.18 L Hgb 9.7 L Hct 29.2 L D MCV 91.9 MCH 30.6 MCHC 33.3 RDW 16.8 H Plt Count 287 MPV 8.4 Absolute Neuts (auto) Neutrophils % Lymphocytes % Monocytes % Eosinophils % Basophils % Nucleated RBC % Sodium 136 Potassium 4.3 Chloride 100 Carbon Dioxide 24 Anion Gap 13 BUN 26 H Creatinine 3.2 H Creat Clearance w eGFR 14.01 Random Glucose 98 Calcium 9.1 Phosphorus Magnesium Total Bilirubin AST ALT Alkaline Phosphatase Total Protein Albumin Blood Type O POSITIVE Antibody Screen Positive H Antibody Identification Anti c Antigen Identification c Antigen - NEGATIVE Crossmatch See Detail 01/18/18 01/18/18 06:00 06:00 WBC 9.2 RBC 2.71 L Hgb 8.3 L Hct 24.6 L D MCV 90.7 MCH 30.5 MCHC 33.6 RDW 17.8 H Plt Count 266 MPV 8.6 Absolute Neuts (auto) 7.1 Neutrophils % 77.6 Lymphocytes % 12.7 Monocytes % 7.7 Eosinophils % 1.1 D Basophils % 0.9 Nucleated RBC % 0 Sodium 144 Potassium 3.8 Chloride 106 Carbon Dioxide 25 Anion Gap 14 BUN 23 H Creatinine 3.0 H Creat Clearance w eGFR 15.09 Random Glucose 62 L Calcium 8.8 Phosphorus 3.3 Magnesium 1.9 Total Bilirubin 1.6 H AST 29 ALT 14 Alkaline Phosphatase 111 Total Protein 6.0 L Albumin 1.6 L Blood Type Antibody Screen Antibody Identification Antigen Identification Crossmatch Active Medications Generic Name Dose Route Start Last Admin Trade Name Berta PRN Reason Stop Dose Admin Acetaminophen 750 mg 01/16/18 17:54 01/18/18 10:34 Ofirmev Injection - IVPB 750 mg Q6H PRN Administration PAIN LEVEL 6-10 Albumin Human 12.5 gm 01/19/18 14:30 Albumin Human 25% IVPB Q30M HARPAL Artificial Tears 1 drop 01/17/18 10:00 Artificial Tears OU DAILY PRN DRY EYES Epoetin Abe 6,000 unit 01/19/18 14:16 Epogen - IVPUSH 01/19/18 14:17 ONCE ONE Sodium Chloride 250 mls @ 3,000 mls/hr 01/18/18 14:16 Normal Saline - IV 01/19/18 14:16 PRN PRN Hypotension during Dialysis Ertapenem 0.5 gm/ Sodium 50 mls @ 100 mls/hr 01/18/18 16:00 01/18/18 17:14 Chloride IVPB 100 mls/hr DAILY HARPAL Administration Protocol Lidocaine 1 patch 01/17/18 14:45 01/18/18 10:21 Lidoderm Patch - TP 1 patch DAILY HARPAL Administration Miscellaneous 1 each 01/17/18 22:00 01/18/18 00:11 Lidoderm Patch Removal MC 1 each DAILY@2200 HARPAL Administration Vancomycin HCl 125 mg 01/18/18 18:00 01/18/18 17:14 Vancomycin Oral Solution PO 125 mg Q6HPO HARPAL Administration Microbiology 01/15/18 16:52 Blood - Peripheral Venous Blood Culture - Preliminary NO GROWTH OBTAINED AFTER 72 HOURS, INCUBATION TO CONTINUE FOR 2 DAYS. 01/15/18 16:52 Blood - Peripheral Venous Blood Culture - Preliminary NO GROWTH OBTAINED AFTER 72 HOURS, INCUBATION TO CONTINUE FOR 2 DAYS. 01/15/18 16:25 Abdomen Gram Stain - Final 01/15/18 16:25 Abdomen Wound Culture - Final Escherichia Coli Esbl Construction Management Instructor Escherichia Coli Esbl Construction Management Instructor#2 Proteus Mirabilis 01/15/18 16:25 Urine - Urine German Urine Culture - Final Escherichia Coli Esbl Construction Management Instructor 01/17/18 11:40 Wound-Other Gram Stain - Final 01/17/18 11:40 Wound-Other Wound Culture - Preliminary Non Lactose Fermenting Gnb Proteus Species ASSESSMENT/PLAN: Patient is a 77 year old female, previously admitted at [facility] for 144 days (s/p failed renal transplant, s/p removal), discharged AMA, as per son, brought at the ED for lethargy. #Abdominal wound: s/p IR-guided drainage of purulent fluid, 6cc drained -BIJU drain in place, flush catheter q8h -Fluid sent for cultures. -(+)yellowish discharge draining from wound -Repeat wound cultures - pending. -Surgery (Dr. Kelly) consulted. Recommendations appreciated. -ID (Dr. Shanks) consulted. Recommendations appreciated. -Will start Ertapenem dosed for HD -Add Vancomycin in the AM given Cdiff history -If no IV access this weekend, can give Gentamicin 80mg after HD in AM until IV access can be obtained. #ESRD: failed renal transplant, s/p removal -Nephrology (Dr. Winters) consulted. Recommendations appreciated. -For hemodialysis tomorrow. -For transfusion of 1 unit pRBC, can be given while on HD #Altered mental status -Speech and swallow evaluation. Recommendations appreciated. -No PO trials could be given. -Agree with puree for now. -Feed only if interactive. -monitor closely #Anemia -likely 2/2 iron deficiency and ESRD -Epogen may be given. #FEN -Will need termite inspector access -Electrolytes wnl, routine bmp monitoring -Puree diet. #Prophylaxis -Heparin 5000 units sq tid #Disposition -Declined for transfer by multiple tertiary care centers. -Son declines transfer to [facility]. Visit type - Emergency Visit Emergency Visit: Yes ED Registration Date: 01/16/18 Care time: The patient presented to the Emergency Department on the above date and was hospitalized for further evaluation of their emergent condition. - New Patient This patient is new to me today: Yes Date on this admission: 01/18/18 - Critical Care Critical Care patient: No
[2018-01-18] MEDS: ACETAMINOPHEN 325 MG TABLET (FP) PO PRN (18:08)
[2018-01-18] MEDS ORDERED: PT OWN MED DRAWER 7, Y5N ONE (22:07)
[2018-01-18] MEDS: HEPARIN NA (PORCINE) 5,000 UNITS/ML 1ML VIAL SQ SCH (22:24)
[2018-01-19] MEDS: VANCOMYCIN 250 MG/5 ML ORAL SOLUTION PO SCH ×5 (00:14→23:19)
[2018-01-19] MEDS: ACETAMINOPHEN 1000 MG/100 ML VIAL (NON FORMULARY) IVPB PRN (02:25)
[2018-01-19] MEDS ORDERED: EPOETIN ALFA 3,000 UNIT/1 ML ML IVPUSH ONE (06:30)
[2018-01-19] MEDS ORDERED: SODIUM CHLORIDE 250 ML IV PRN (06:35)
[2018-01-19] MEDS: HEPARIN NA (PORCINE) 5,000 UNITS/ML 1ML VIAL SQ SCH ×3 (06:44→23:19)
[2018-01-19] MEDS: ALBUMIN HUMAN 25% 12.5 GM/50 ML VIAL IVPB SCH ×5 (08:14→11:04)
[2018-01-19 08:57] LABS: BASO % 0.9 % (0-2.0); EOS % 0.6 % (0-4.5); HEMATOCRIT 24.9 % (32.4-45.2); HEMOGLOBIN 8.2 GM/dL (10.7-15.3); LYMPH % 18.7 % (8-40); MCH 30.2 pg (25.7-33.7); MCHC 32.8 g/dl (32.0-36.0); MEAN CELL VOLUME 91.9 fl (80-96); MEAN PLT VOLUME 9.1 fl (7.5-11.1); MONO % 8.3 % (3.8-10.2); NEUT % 71.5 % (42.8-82.8); PLATELET COUNT 273 K/MM3 (134-434); RBC 2.71 M/mm3 (3.60-5.2); RDW 17.7 % (11.6-15.6); WHITE BLOOD COUNT 9.4 K/mm3 (4.0-10.0)
--- NOTE | 2018-01-19 09:03 | PN ---
Teaching Attending Note Name of Resident: Amrik Carreon ATTENDING PHYSICIAN STATEMENT I saw and evaluated the patient. I reviewed the resident's note and discussed the case with the resident. I agree with the resident's findings and plan as documented with exceptions below. SUBJECTIVE: Patient seen and examined. More awake today, denies pain, further ROS limited. OBJECTIVE: Vital Signs Period Temp Pulse Resp BP Sys/Franco Pulse Ox Last 24 Hr 97.8 F-98.5 F 67-102 18-27 90-142/43-85 93-100 Intake & Output 01/16/18 01/17/18 01/18/18 01/19/18 23:59 23:59 23:59 23:59 Intake Total 400 275 Output Total 70 Balance 400 205 Weight 90 lb 110 lb 110 lb 110 lb General: anxious, restless in bed, attempting to get out of bed Chest: lack of co-operation, no rales or wheezing appreciated Abdomen:Soft, RLQ BIJU drain with dark red fluid, NT throughout, ND, positive bowel sounds Extremities: no edema, restraints as risk of pulling drain/harm to self, no edema or calf tenderness Active Medications Acetaminophen (Tylenol -) 650 mg PO Q6H PRN PRN Reason: Fever Last Admin: 01/18/18 18:08 Dose: 650 mg Artificial Tears (Artificial Tears) 1 drop OU DAILY PRN PRN Reason: DRY EYES Heparin Sodium (Porcine) (Heparin -) 5,000 unit SQ TID [facility] Last Admin: 01/19/18 06:44 Dose: 5,000 unit Sodium Chloride (Normal Saline -) 250 mls @ 3,000 mls/hr IV PRN PRN PRN Reason: Hypotension during Dialysis Stop: 01/20/18 06:34 Ertapenem 0.5 gm/ Sodium (Chloride) 50 mls @ 100 mls/hr IVPB DAILY [facility]; Protocol Last Admin: 01/18/18 17:14 Dose: 100 mls/hr Lidocaine (Lidoderm Patch -) 1 patch TP DAILY [facility] Last Admin: 01/18/18 10:21 Dose: 1 patch Miscellaneous (Lidoderm Patch Removal) 1 each MC DAILY@2200 HARPAL Last Admin: 01/18/18 22:24 Dose: 1 each Vancomycin HCl (Vancomycin Oral Solution) 125 mg PO Q6HPO [facility] Last Admin: 01/19/18 06:44 Dose: 125 mg Laboratory Results - last 24 hr 09/28/18 13:00 Hep C Ab Diagnostic 0.2 Liver Fibrosis Interp Microbiology 01/15/18 16:52 Blood - Peripheral Venous Blood Culture - Preliminary NO GROWTH OBTAINED AFTER 72 HOURS, INCUBATION TO CONTINUE FOR 2 DAYS. 01/15/18 16:52 Blood - Peripheral Venous Blood Culture - Preliminary NO GROWTH OBTAINED AFTER 72 HOURS, INCUBATION TO CONTINUE FOR 2 DAYS. 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 Plan: Follow up BIJU drain culturse. ID input noted. Superficial wound cx with ESBL. Ertapenem/PO vanco day 2. Afebrile, normal WBC, hemodynamics stable. Surgery input noted. Renal Input appreciated, continue HD. Will need usp access. Records from [facility] reviewed in detail, prolonged hospital stay with transplant nephrectomy 11/05, course complicated by afib/wide complex tachycardia (family declined coumadin, was on eliquis), also severe anemia (Hb 5.6 requiring multiple transfusion), declined PEG, was seen by palliative care. Found on fluid collection on CT A/p in 01/07, plan was for CT with contrast and IR guided aspiration as the last documentation. She was also planned for PICC, also reported MDR E. Coli, was on meropenem with HD for the same. Eliquis was discontinued given her anemia, fluid collection and plan for intervention. LE duplex here neg for DVT. Resume lopressor in 24 hours as hemodynamics tolerate. Dysphagia pureed diet with aspiration precautions when awake as tolerated. Speech/swallow eval noted. . DVTPPX, start on heparin now. Risks outweigh benefits for full dose AC given ongoing anemia, fluid collection, need for intervention and close hemodynamic monitoring. Current Duplex LE neg. . Son adamantly declines transfer to [facility]. Declined for transfer by multiple tertiary care centers including [facility], [place], [facility]. Monitor closely, plan as above, address further management based on clinical course.
[2018-01-19 10:07] LABS: ALBUMIN 1.5 g/dl (3.4-5.0); ALK PHOS 120 U/L (45-117); ANION GAP 9 MMOL/L (8-16); BILIRUBIN,TOTAL 0.6 mg/dL (0.2-1); BLOOD UREA NITROGEN 29 mg/dL (7-18); CALCIUM 8.5 mg/dL (8.5-10.1); CHLORIDE 106 mmol/L (98-107); CO2 26 mmol/L (21-32); CREATININE 4.1 mg/dL (0.55-1.3); GLUCOSE,RANDOM 80 mg/dL (74-106); PHOSPHOROUS 3.7 mg/dL (2.5-4.9); SGOT/AST 28 U/L (15-37); SGPT/ALT 14 U/L (13-61); SODIUM 142 mmol/L (136-145); TOT PROT 6.2 g/dl (6.4-8.2)
--- NOTE | 2018-01-19 10:17 | PN ---
Physical Exam: SUBJECTIVE: Patient seen and examined at bedside. Patient was concurrently undergoing hemodialysis. Patient was unable to respond to my questions, but she did nod "yes" when asked if she was in pain. OBJECTIVE: Vital Signs Period Temp Pulse Resp BP Sys/Franco Pulse Ox Last 24 Hr 97.8 F-98.5 F 67-102 18-27 90-142/43-76 93-100 GENERAL: A&Ox1, mild distress EYES: PERRLA, EOMI ENT: Dry NECK: No JVD LUNGS: Clear breath sounds HEART: mild systolic murmur noted on exam, RRR ABDOMEN: Soft, nontender, BS present, Drain noted on R side of abdomen, nontender and no surrounding erythema EXTREMITIES: 2+ pulses, no edema. Laboratory Results - last 24 hr 01/18/18 01/19/18 01/19/18 13:00 07:15 07:15 WBC 9.4 RBC 2.71 L Hgb 8.2 L Hct 24.9 L MCV 91.9 MCH 30.2 MCHC 32.8 RDW 17.7 H Plt Count 273 MPV 9.1 Absolute Neuts (auto) 6.7 Neutrophils % 71.5 Lymphocytes % 18.7 D Monocytes % 8.3 Eosinophils % 0.6 Basophils % 0.9 Nucleated RBC % 0 Sodium 142 Potassium 4.0 Chloride 106 Carbon Dioxide 26 Anion Gap 9 BUN 29 H Creatinine 4.1 H Creat Clearance w eGFR 10.52 Random Glucose 80 Calcium 8.5 Phosphorus 3.7 Magnesium 2.0 Total Bilirubin 0.6 AST 28 ALT 14 Alkaline Phosphatase 120 H Total Protein 6.2 L Albumin 1.5 L Hep C Ab Diagnostic 0.2 Liver Fibrosis Interp Active Medications Generic Name Dose Route Start Last Admin Trade Name Freq PRN Reason Stop Dose Admin Acetaminophen 650 mg 01/18/18 17:48 01/18/18 18:08 Tylenol - PO 650 mg Q6H PRN Administration Fever Artificial Tears 1 drop 01/17/18 10:00 Artificial Tears OU DAILY PRN DRY EYES Heparin Sodium (Porcine) 5,000 unit 01/18/18 22:00 01/19/18 06:44 Heparin - SQ 5,000 unit TID HARPAL Administration Sodium Chloride 250 mls @ 3,000 mls/hr 01/19/18 06:35 Normal Saline - IV 01/20/18 06:34 PRN PRN Hypotension during Dialysis Ertapenem 0.5 gm/ Sodium 50 mls @ 100 mls/hr 01/18/18 16:00 01/18/18 17:14 Chloride IVPB 100 mls/hr DAILY HARPAL Administration Protocol Lidocaine 1 patch 01/17/18 14:45 01/18/18 10:21 Lidoderm Patch - TP 1 patch DAILY HARPAL Administration Miscellaneous 1 each 01/17/18 22:00 01/18/18 22:24 Lidoderm Patch Removal MC 1 each DAILY@2200 HARPAL Administration Vancomycin HCl 125 mg 01/18/18 18:00 01/19/18 06:44 Vancomycin Oral Solution PO 125 mg Q6HPO HARPAL Administration ASSESSMENT/PLAN: Patient is a 77 year old female, previously admitted at [facility] for 144 days (s/p failed renal transplant, s/p removal), discharged AMA, as per son, brought at the ED for lethargy and currently being treated for abdominal wound infection, ESBL E. 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 #ESRD: failed renal transplant, s/p removal -Nephrology following -HD today -Hgb stable today #Altered mental status: unclear etiology, could be urine infection with ESBL vs renal origin vs abdominal infection as cause -continue to treat infection -Speech and swallow -Feed only if interactive -monitor for changes #Anemia: likely due to ESRD -stable, continue to monitor -follow nephro reccs for possibility of epogen #FEN -Will need manager terminal access -Electrolytes wnl, routine bmp monitoring -Puree diet. #Prophylaxis -Heparin 5000 units sq tid #Disposition -Declined for transfer by multiple tertiary care centers. -Son declines transfer to [facility]. Visit type - Emergency Visit Emergency Visit: No - New Patient This patient is new to me today: No - Critical Care Critical Care patient: No
[2018-01-19] MEDS: LIDOCAINE 5% TOPICAL PATCH TP SCH (10:50)
[2018-01-19] MEDS: ERTAPENEM SODIUM 0.5 GM in SODIUM CHLORIDE 50 ML IVPB SCH (10:50)
--- NOTE | 2018-01-19 15:05 | PN ---
Progress Note (short form) - Note Progress Note: covering dr belcher Problems 1. ESRD 2. failed kidney transplant 3. hx DM 4. Hx HTN 5. altered mental status 6. post op infection 7. c.diff 8. a-fib Current Medications Acetaminophen (Tylenol -) 650 mg PO Q6H PRN PRN Reason: Fever Last Admin: 01/18/18 18:08 Dose: 650 mg Artificial Tears (Artificial Tears) 1 drop OU DAILY PRN PRN Reason: DRY EYES Heparin Sodium (Porcine) (Heparin -) 5,000 unit SQ TID HARPAL Last Admin: 01/19/18 13:06 Dose: 5,000 unit Sodium Chloride (Normal Saline -) 250 mls @ 3,000 mls/hr IV PRN PRN PRN Reason: Hypotension during Dialysis Stop: 01/20/18 06:34 Ertapenem 0.5 gm/ Sodium (Chloride) 50 mls @ 100 mls/hr IVPB DAILY HARPAL; Protocol Last Admin: 01/19/18 10:50 Dose: 100 mls/hr Lidocaine (Lidoderm Patch -) 1 patch TP DAILY HARPAL Last Admin: 01/19/18 10:50 Dose: 1 patch Miscellaneous (Lidoderm Patch Removal) 1 each MC DAILY@2200 HARPAL Last Admin: 01/18/18 22:24 Dose: 1 each Vancomycin HCl (Vancomycin Oral Solution) 125 mg PO Q6HPO HARPAL Last Admin: 01/19/18 11:42 Dose: 125 mg Last Vital Signs Temp Pulse Resp BP Pulse Ox 98.2 F 100 H 18 114/72 94 L 01/19/18 07:10 01/19/18 11:02 01/19/18 11:02 01/19/18 11:02 01/19/18 10:00 CBC, BMP 01/19/18 07:15 01/19/18 07:15 s/p hemodialysis Plan - HD tomorrow - s/p IR drainage - follow cultures - ID follow up - monitor hg - epogen for anemia - discussed with medical team - cont wound care - pt is off of immunosuppresive agents - discussed with medical team - will follow pt
--- NOTE | 2018-01-19 16:21 | PN ---
Progress Note, Physician History of Present Illness: Awake. Not conversant Afebrile WBC 9.4 Final abscess c/s pending - Current Medication List Current Medications: Active Medications Acetaminophen (Tylenol -) 650 mg PO Q6H PRN PRN Reason: Fever Last Admin: 01/18/18 18:08 Dose: 650 mg Artificial Tears (Artificial Tears) 1 drop OU DAILY PRN PRN Reason: DRY EYES Heparin Sodium (Porcine) (Heparin -) 5,000 unit SQ TID [facility] Last Admin: 01/19/18 13:06 Dose: 5,000 unit Sodium Chloride (Normal Saline -) 250 mls @ 3,000 mls/hr IV PRN PRN PRN Reason: Hypotension during Dialysis Stop: 01/20/18 06:34 Ertapenem 0.5 gm/ Sodium (Chloride) 50 mls @ 100 mls/hr IVPB DAILY [facility]; Protocol Last Admin: 01/19/18 10:50 Dose: 100 mls/hr Lidocaine (Lidoderm Patch -) 1 patch TP DAILY [facility] Last Admin: 01/19/18 10:50 Dose: 1 patch Miscellaneous (Lidoderm Patch Removal) 1 each MC DAILY@2200 [facility] Last Admin: 01/18/18 22:24 Dose: 1 each Vancomycin HCl (Vancomycin Oral Solution) 125 mg PO Q6HPO [facility] Last Admin: 01/19/18 11:42 Dose: 125 mg - Objective Vital Signs: Vital Signs Temperature 98.3 F 01/19/18 15:21 Pulse Rate 98 H 01/19/18 15:21 Respiratory Rate 18 01/19/18 15:21 Blood Pressure 107/51 L 01/19/18 15:21 O2 Sat by Pulse Oximetry (%) 94 L 01/19/18 10:00 Constitutional: Yes: Thin Cardiovascular: Yes: Regular Rate and Rhythm, S1, S2 Respiratory: Yes: Diminished, Rhonchi Gastrointestinal: Yes: Normal Bowel Sounds. No: Tenderness Edema: Yes Labs: CBC, BMP 01/19/18 07:15 01/19/18 07:15 INR, PTT INR 1.15 (0.83-1.09) H 01/16/18 08:50 Assessment/Plan S/P IR drainage ? infected hematoma Hx ESBL Hx C difficile Continue ertapenem/ po vancomycin
[2018-01-19] MEDS: ACETAMINOPHEN 325 MG TABLET (FP) PO PRN (19:02)
[2018-01-19] MEDS ORDERED: PT OWN MED DRAWER 7, Y5N ONE (23:17)
[2018-01-19] MEDS: LIDOCAINE PATCH REMOVAL MC SCH (23:19)
[2018-01-20] MEDS: HEPARIN NA (PORCINE) 5,000 UNITS/ML 1ML VIAL SQ SCH ×3 (05:35→21:08)
[2018-01-20] MEDS: VANCOMYCIN 250 MG/5 ML ORAL SOLUTION PO SCH ×4 (05:35→23:32)
[2018-01-20 06:36] LABS: HBSAG SCREEN Negative (Negative); HEP A AB, IGM Negative (Negative); HEP B CORE AB, TOT Negative (Negative)
[2018-01-20] MEDS: METOPROLOL TARTRATE 25 MG TABLET (FP) PO SCH ×2 (11:24→21:09)
[2018-01-20] MEDS: LIDOCAINE 5% TOPICAL PATCH TP SCH (11:24)
[2018-01-20] MEDS: ERTAPENEM SODIUM 0.5 GM in SODIUM CHLORIDE 50 ML IVPB SCH (11:24)
--- NOTE | 2018-01-20 15:09 | PN ---
Physical Exam: SUBJECTIVE: Patient seen and examined, restless in bed, no acute distress. Limited ROS. OBJECTIVE: Vital Signs Period Temp Pulse Resp BP Sys/Franco Pulse Ox Last 24 Hr 97.1 F-98.6 F 71-98 18-20 99-160/51-81 97 GENERAL: restless in bed, no acute distress Abdomen;Soft, Minimal serosanguinous drainage from BIJU drain, ND, no voluntary or involuntary guarding or rigidity, positive bowel sounds, non specific grimacing on exam limited palpation Chest: no rales or wheezing, limited exam given lack of co-operation and poor effort CVS;S1S2 irregular Extremities: no edema or calf tenderness Laboratory Results - last 24 hr 01/18/18 06:00 Hep A IgM Ab Confirm Negative Hepatitis A Ab Total Positive H Hep Bs Antigen Negative Hep Bs Antibody Reactive Hep B Core Total Ab Negative Active Medications Generic Name Dose Route Start Last Admin Trade Name Freq PRN Reason Stop Dose Admin Acetaminophen 650 mg 01/18/18 17:48 01/19/18 19:02 Tylenol - PO 650 mg Q6H PRN Administration Fever Artificial Tears 1 drop 01/17/18 10:00 Artificial Tears OU DAILY PRN DRY EYES Heparin Sodium (Porcine) 5,000 unit 01/18/18 22:00 01/20/18 14:42 Heparin - SQ 5,000 unit TID HARPAL Administration Ertapenem 0.5 gm/ Sodium 50 mls @ 100 mls/hr 01/18/18 16:00 01/20/18 11:24 Chloride IVPB 100 mls/hr DAILY HARPAL Administration Protocol Lidocaine 1 patch 01/17/18 14:45 01/20/18 11:24 Lidoderm Patch - TP 1 patch DAILY HARPAL Administration Metoprolol Tartrate 25 mg 01/20/18 10:00 01/20/18 11:24 Lopressor - PO 25 mg BID HARPAL Administration Miscellaneous 1 each 01/17/18 22:00 01/19/18 23:19 Lidoderm Patch Removal MC 1 each DAILY@2200 HARPAL Administration Vancomycin HCl 125 mg 01/18/18 18:00 01/20/18 11:24 Vancomycin Oral Solution PO 125 mg Q6HPO HARPAL Administration Microbiology 01/18/18 12:52 Abscess Gram Stain - Final 01/18/18 12:52 Abscess Body Fluid Culture - Preliminary Escherichia Coli Esbl Closing Agent Non Lactose Fermenting Gnb#3 01/18/18 12:52 Abscess Anaerobic Culture - Preliminary Pending Organism 01/17/18 11:40 Wound-Other Gram Stain - Final 01/17/18 11:40 Wound-Other Wound Culture - Preliminary Escherichia Coli Proteus Species 01/15/18 16:52 Blood - Peripheral Venous Blood Culture - Preliminary NO GROWTH OBTAINED AFTER 96 HOURS, INCUBATION TO CONTINUE FOR 1 DAYS. 01/15/18 16:52 Blood - Peripheral Venous Blood Culture - Preliminary NO GROWTH OBTAINED AFTER 96 HOURS, INCUBATION TO CONTINUE FOR 1 DAYS. 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 -Prolonged QTc Plan: BIJU cultures noted. ID input noted. Superficial wound cx with ESBL. Ertapenem/PO vanco day 3. Afebrile, normal WBC, hemodynamics stable. Surgery input noted. Renal Input appreciated, continue HD. Will need long-term access. Start lopressor 25 mg BID and titrate as needed. Records from [facility] reviewed in detail, prolonged hospital stay with transplant nephrectomy 11/05, course complicated by afib/wide complex tachycardia (family declined coumadin, was on eliquis), also severe anemia (Hb 5.6 requiring multiple transfusion), declined PEG, was seen by palliative care. Found on fluid collection on CT A/p in 01/07, plan was for CT with contrast and IR guided aspiration as the last documentation. She was also planned for PICC, also reported MDR E. Coli, was on meropenem with HD for the same. Eliquis was discontinued given her anemia, fluid collection and plan for intervention. LE duplex here neg for DVT. Dysphagia pureed diet with aspiration precautions when awake as tolerated. Speech/swallow eval noted. Abdominal binder to minimize risk of pulling drain. Avoid haldol for now. Psych input if concerns of agitation or non -coperation noted. DVTPPX, subq heparin for now. Risks outweigh benefits for full dose AC given ongoing anemia, fluid collection, need for intervention and close hemodynamic monitoring. Current Duplex LE neg. . Son adamantly declined transfer to [facility]. Declined for transfer by multiple tertiary care centers including [facility], [facility], [facility]. Monitor closely, plan as above, address further management based on clinical course. Plan discussed with nursing and all questions answered. Visit type - Emergency Visit Emergency Visit: Yes ED Registration Date: 01/16/18 Care time: The patient presented to the Emergency Department on the above date and was hospitalized for further evaluation of their emergent condition. - New Patient This patient is new to me today: No - Critical Care Critical Care patient: No - Discharge Referral Referred to [facility] No
--- NOTE | 2018-01-20 19:38 | PN ---
Progress Note (short form) - Note Progress Note: covering dr belcher Problems 1. ESRD 2. failed kidney transplant 3. hx DM 4. Hx HTN 5. altered mental status 6. post op infection 7. c.diff 8. a-fib Current Medications Acetaminophen (Tylenol -) 650 mg PO Q6H PRN PRN Reason: Fever Last Admin: 01/19/18 19:02 Dose: 650 mg Artificial Tears (Artificial Tears) 1 drop OU DAILY PRN PRN Reason: DRY EYES Heparin Sodium (Porcine) (Heparin -) 5,000 unit SQ TID [facility] Last Admin: 01/20/18 14:42 Dose: 5,000 unit Ertapenem 0.5 gm/ Sodium (Chloride) 50 mls @ 100 mls/hr IVPB DAILY [facility]; Protocol Last Admin: 01/20/18 11:24 Dose: 100 mls/hr Lidocaine (Lidoderm Patch -) 1 patch TP DAILY [facility] Last Admin: 01/20/18 11:24 Dose: 1 patch Metoprolol Tartrate (Lopressor -) 25 mg PO BID [facility] Last Admin: 01/20/18 11:24 Dose: 25 mg Miscellaneous (Lidoderm Patch Removal) 1 each MC DAILY@2200 [facility] Last Admin: 01/19/18 23:19 Dose: 1 each Vancomycin HCl (Vancomycin Oral Solution) 125 mg PO Q6HPO [facility] Last Admin: 01/20/18 17:43 Dose: 125 mg Last Vital Signs Temp Pulse Resp BP Pulse Ox 98.4 F 76 18 139/73 97 01/20/18 16:30 01/20/18 16:30 01/20/18 16:30 01/20/18 16:30 01/20/18 09:00 non verbal today Lungs william Heart reg Abd soft nontender ext no edema CBC, BMP 01/19/18 07:15 01/19/18 07:15 esrd euvolemic Plan - HD sunday
[2018-01-20] MEDS: LIDOCAINE PATCH REMOVAL MC SCH (21:08)
[2018-01-21] MEDS: VANCOMYCIN 250 MG/5 ML ORAL SOLUTION PO SCH ×4 (05:43→23:07)
[2018-01-21] MEDS: HEPARIN NA (PORCINE) 5,000 UNITS/ML 1ML VIAL SQ SCH ×2 (05:54→14:09)
[2018-01-21 06:55] LABS: BASO % 1.4 % (0-2.0); EOS % 1.8 % (0-4.5); HEMATOCRIT 27.6 % (32.4-45.2); HEMOGLOBIN 9.2 GM/dL (10.7-15.3); LYMPH % 26.9 % (8-40); MCH 31.1 pg (25.7-33.7); MCHC 33.3 g/dl (32.0-36.0); MEAN CELL VOLUME 93.5 fl (80-96); MEAN PLT VOLUME 8.4 fl (7.5-11.1); MONO % 8.1 % (3.8-10.2); NEUT % 61.8 % (42.8-82.8); PLATELET COUNT 256 K/MM3 (134-434); RBC 2.95 M/mm3 (3.60-5.2); RDW 17.5 % (11.6-15.6)
[2018-01-21 07:13] LABS: ALK PHOS 126 U/L (45-117); ANION GAP 9 MMOL/L (8-16); BILIRUBIN,TOTAL 0.7 mg/dL (0.2-1); BLOOD UREA NITROGEN 21 mg/dL (7-18); CALCIUM 9.6 mg/dL (8.5-10.1); CHLORIDE 107 mmol/L (98-107); CO2 30 mmol/L (21-32); CREATININE 3.3 mg/dL (0.55-1.3); GLUCOSE,RANDOM 73 mg/dL (74-106); MAGNESIUM 1.9 mg/dL (1.8-2.4); POTASSIUM 4.1 mmol/L (3.5-5.1); SGOT/AST 20 U/L (15-37); SGPT/ALT 14 U/L (13-61); SODIUM 145 mmol/L (136-145); TOT PROT 6.6 g/dl (6.4-8.2)
--- NOTE | 2018-01-21 08:17 | PN ---
Teaching Attending Note Name of Resident: Marisela Simmons ATTENDING PHYSICIAN STATEMENT I saw and evaluated the patient. I reviewed the resident's note and discussed the case with the resident. I agree with the resident's findings and plan as documented with exceptions below. SUBJECTIVE: Patient seen and examined, no complaints, restless. No distress OBJECTIVE: Vital Signs Period Temp Pulse Resp BP Sys/Franco Pulse Ox Last 24 Hr 96.9 F-98.6 F 71-88 18-20 99-147/71-80 93-97 Intake & Output 01/18/18 01/19/18 01/20/18 01/21/18 23:59 23:59 23:59 23:59 Intake Total 275 470 570 Output Total 70 15 60 25 Balance 205 455 510 -25 Weight 110 lb 110 lb 110 lb general: lying in bed restless but no acute distress Abdomen:soft ND, BIJU drain with serosanguinous fluid, non specific grimacing on palpation limiting exam, positive bowel sounds, no voluntary or involuntary guarding or rigidity Extremities: no edema Chest: decreased effort, no rales or wheezing Active Medications Acetaminophen (Tylenol -) 650 mg PO Q6H PRN PRN Reason: Fever Last Admin: 01/19/18 19:02 Dose: 650 mg Artificial Tears (Artificial Tears) 1 drop OU DAILY PRN PRN Reason: DRY EYES Heparin Sodium (Porcine) (Heparin -) 5,000 unit SQ TID [facility] Last Admin: 01/21/18 05:54 Dose: 5,000 unit Ertapenem 0.5 gm/ Sodium (Chloride) 50 mls @ 100 mls/hr IVPB DAILY [facility]; Protocol Last Admin: 01/20/18 11:24 Dose: 100 mls/hr Lidocaine (Lidoderm Patch -) 1 patch TP DAILY [facility] Last Admin: 01/20/18 11:24 Dose: 1 patch Metoprolol Tartrate (Lopressor -) 25 mg PO BID [facility] Last Admin: 01/20/18 21:09 Dose: 25 mg Miscellaneous (Lidoderm Patch Removal) 1 each MC DAILY@2200 [facility] Last Admin: 01/20/18 21:08 Dose: 1 each Vancomycin HCl (Vancomycin Oral Solution) 125 mg PO Q6HPO [facility] Last Admin: 01/21/18 05:43 Dose: 125 mg Laboratory Results - last 24 hr 01/15/18 01/21/18 01/21/18 16:49 06:00 06:00 WBC 7.0 RBC 2.95 L Hgb 9.2 L Hct 27.6 L MCV 93.5 MCH 31.1 MCHC 33.3 RDW 17.5 H Plt Count 256 MPV 8.4 Absolute Neuts (auto) 4.3 Neutrophils % 61.8 Lymphocytes % 26.9 D Monocytes % 8.1 Eosinophils % 1.8 D Basophils % 1.4 Nucleated RBC % 0 Sodium 145 Potassium 4.1 Chloride 107 Carbon Dioxide 30 Anion Gap 9 BUN 21 H Creatinine 3.3 H Creat Clearance w eGFR 13.52 Random Glucose 73 L Calcium 9.6 Phosphorus 3.0 Magnesium 1.9 Total Bilirubin 0.7 AST 20 ALT 14 Alkaline Phosphatase 126 H Total Protein 6.6 Albumin 2.0 L Blood Type O POSITIVE Antibody Screen Positive H Antibody Identification Anti c Antigen Identification c Antigen - NEGATIVE Crossmatch See Detail Microbiology 01/15/18 16:52 Blood - Peripheral Venous Blood Culture - Final NO GROWTH AFTER 5 DAYS INCUBATION 01/15/18 16:52 Blood - Peripheral Venous Blood Culture - Final NO GROWTH AFTER 5 DAYS INCUBATION 01/18/18 12:52 Abscess Gram Stain - Final 01/18/18 12:52 Abscess Body Fluid Culture - Preliminary Escherichia Coli Esbl Furnace [employer] Wash Equipment Operator Non Lactose Fermenting Gnb#3 01/18/18 12:52 Abscess Anaerobic Culture - Preliminary Pending Organism 01/17/18 11:40 Wound-Other Gram Stain - Final 01/17/18 11:40 Wound-Other Wound Culture - Preliminary Escherichia Coli Proteus Species 01/15/18 16:25 Abdomen Gram Stain - Final 01/15/18 16:25 Abdomen Wound Culture - Final Escherichia Coli Esbl Furnace And Wash Equipment Operator Escherichia Coli Esbl Furnace And Wash Equipment Operator#2 Proteus Mirabilis 01/15/18 16:25 Urine - Urine German Urine Culture - Final Escherichia Coli Esbl Furnace And Wash Equipment Operator ASSESSMENT AND PLAN: 77 yof with reportedly prolonged stay at [facility] for PNA, cdiff (requiring fecal transplant), 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 -Prolonged QTc Plan: BIJU drain/superficial wound cultures noted. ID input noted. Ertapenem/PO vanco day 4. Afebrile, normal WBC, hemodynamics stable. Surgery input noted. Renal Input appreciated, continue HD. Discussed with paolo Gaona to start AC. HOld off on repeat imaging unless minimal drainage or new concerns. Patient with h/o splenic infarcts, also Afib and RLE at [facility]. Coumadin was offered but son declined and wanted his mother on eliquis. Called son again, confirmed wants his mother on eliquis and not coumadin. Resume eliquis with h/h monitoring. Will need rn long term care access. Continue lopressor 25 mg BID and titrate as needed. Dysphagia pureed diet with aspiration precautions when awake as tolerated. Speech/swallow eval noted. Abdominal binder to minimize risk of pulling drain. Avoid psychotropics given QTc > 500. Psych input if concerns of agitation or non -coperation noted. DVTPPX, start eliquis as above. Son adamantly declined transfer to [facility]. Declined for transfer by multiple tertiary care centers including [facility], [facility], [facility]. Monitor closely, plan as above, address further management based on clinical course. Plan discussed with nursing and all questions answered. Records from [facility] reviewed in detail, prolonged hospital stay with transplant nephrectomy 11/05, course complicated by afib/wide complex tachycardia (family declined coumadin, was on eliquis), also severe anemia (Hb 5.6 requiring multiple transfusion), declined PEG, was seen by palliative care. Found on fluid collection on CT A/p in 01/07, plan was for CT with contrast and IR guided aspiration as the last documentation. She was also planned for PICC, also reported MDR E. Coli, was on meropenem with HD for the same. Eliquis was discontinued given her anemia, fluid collection and plan for intervention.
[2018-01-21] MEDS: LIDOCAINE 5% TOPICAL PATCH TP SCH (10:29)
[2018-01-21] MEDS: ERTAPENEM SODIUM 0.5 GM in SODIUM CHLORIDE 50 ML IVPB SCH (10:29)
[2018-01-21] MEDS: METOPROLOL TARTRATE 25 MG TABLET (FP) PO SCH ×2 (10:29→22:18)
[2018-01-21] MEDS: ACETAMINOPHEN 325 MG TABLET (FP) PO PRN ×2 (12:42→22:18)
--- NOTE | 2018-01-21 14:34 | PN ---
Progress Note (short form) - Note Progress Note: much more alert Vital Signs Period Temp Pulse Resp BP Sys/Franco Pulse Ox Last 24 Hr 96.9 F-98.4 F 76-88 18-18 131-139/71-73 93-93 cor-rrr lungs clear abd +BIJU with minimal drainage ext Left arm AVF CBC, BMP 01/21/18 06:00 01/21/18 06:00 Microbiology 01/17/18 11:40 Wound-Other Gram Stain - Final 01/17/18 11:40 Wound-Other Wound Culture - Final Escherichia Coli Proteus Mirabilis 01/18/18 12:52 Abscess Gram Stain - Final 01/18/18 12:52 Abscess Body Fluid Culture - Final Escherichia Coli Esbl Filler Block Inserter Remover 01/18/18 12:52 Abscess Anaerobic Culture - Final 01/15/18 16:52 Blood - Peripheral Venous Blood Culture - Final NO GROWTH AFTER 5 DAYS INCUBATION 01/15/18 16:52 Blood - Peripheral Venous Blood Culture - Final NO GROWTH AFTER 5 DAYS INCUBATION 01/15/18 16:25 Abdomen Gram Stain - Final 01/15/18 16:25 Abdomen Wound Culture - Final Escherichia Coli Esbl Filler Block Inserter Remover Escherichia Coli Esbl Filler Block Inserter Remover#2 Proteus Mirabilis 01/15/18 16:25 Urine - Urine German Urine Culture - Final Escherichia Coli Esbl Filler Block Inserter Remover a/p s/p IR drainage of infected hematoma-ecolli esbl sensitive to ertapenem history cdiff- continue po vancomycin esrd/hd- faile renal transplant with removal of transplanted kidney contact isolation Problem List - Problems (1) Post-operative infection Code(s): T81.4XXA - (2) C. difficile colitis Code(s): A04.72 - ENTEROCOLITIS D/T CLOSTRIDIUM DIFFICILE, NOT SPCF RECUR (3) Altered mental status Code(s): R41.82 - ALTERED MENTAL STATUS, UNSPECIFIED (4) ESRD (end stage renal disease) on dialysis Code(s): N18.6 - END STAGE RENAL DISEASE; Z99.2 - DEPENDENCE ON RENAL DIALYSIS
[2018-01-21] MEDS ORDERED: SODIUM CHLORIDE 250 ML IV PRN (15:39)
--- NOTE | 2018-01-21 15:39 | PN ---
Progress Note, Physician History of Present Illness: Pt seen and examined at bedside. She is awake and appears comfortable. - Current Medication List Current Medications: Active Medications Acetaminophen (Tylenol -) 650 mg PO Q6H PRN PRN Reason: Fever Last Admin: 01/21/18 12:42 Dose: 650 mg Artificial Tears (Artificial Tears) 1 drop OU DAILY PRN PRN Reason: DRY EYES Heparin Sodium (Porcine) (Heparin -) 5,000 unit SQ TID [facility] Last Admin: 01/21/18 14:09 Dose: 5,000 unit Ertapenem 0.5 gm/ Sodium (Chloride) 50 mls @ 100 mls/hr IVPB DAILY [facility]; Protocol Last Admin: 01/21/18 10:29 Dose: 100 mls/hr Lidocaine (Lidoderm Patch -) 1 patch TP DAILY [facility] Last Admin: 01/21/18 10:29 Dose: 1 patch Metoprolol Tartrate (Lopressor -) 25 mg PO BID [facility] Last Admin: 01/21/18 10:29 Dose: 25 mg Miscellaneous (Lidoderm Patch Removal) 1 each MC DAILY@2200 [facility] Last Admin: 01/20/18 21:08 Dose: 1 each Vancomycin HCl (Vancomycin Oral Solution) 125 mg PO Q6HPO [facility] Last Admin: 01/21/18 12:42 Dose: 125 mg - Objective Vital Signs: Vital Signs Temperature 97.4 F L 01/21/18 14:49 Pulse Rate 73 01/21/18 14:49 Respiratory Rate 18 01/21/18 14:49 Blood Pressure 158/78 01/21/18 14:49 O2 Sat by Pulse Oximetry (%) 93 L 01/21/18 09:00 Constitutional: Yes: Calm, Cachectic Eyes: Yes: Conjunctiva Clear Cardiovascular: Yes: S1, S2 Respiratory: Yes: CTA Bilaterally Gastrointestinal: Yes: Soft Genitourinary: Yes: Other (hanny drain in place) Musculoskeletal: Yes: Muscle Weakness Edema: No Neurological: Yes: Other (awake) Labs: CBC, BMP 01/21/18 06:00 01/21/18 06:00 INR, PTT INR 1.15 (0.83-1.09) H 01/16/18 08:50 Problem List - Problems (1) ESRD (end stage renal disease) on dialysis Code(s): N18.6 - END STAGE RENAL DISEASE; Z99.2 - DEPENDENCE ON RENAL DIALYSIS Assessment/Plan Current Medications Generic Name Dose Route Start Last Admin Trade Name Berta PRN Reason Stop Dose Admin Acetaminophen 650 mg 01/18/18 17:48 01/21/18 12:42 Tylenol - PO 650 mg Q6H PRN Administration Fever Artificial Tears 1 drop 01/17/18 10:00 Artificial Tears OU DAILY PRN DRY EYES Heparin Sodium (Porcine) 5,000 unit 01/18/18 22:00 01/21/18 14:09 Heparin - SQ 5,000 unit TID [facility] Administration Ertapenem 0.5 gm/ Sodium 50 mls @ 100 mls/hr 01/18/18 16:00 01/21/18 10:29 Chloride IVPB 100 mls/hr DAILY [facility] Administration Protocol Lidocaine 1 patch 01/17/18 14:45 01/21/18 10:29 Lidoderm Patch - TP 1 patch DAILY [facility] Administration Metoprolol Tartrate 25 mg 01/20/18 10:00 01/21/18 10:29 Lopressor - PO 25 mg BID [facility] Administration Miscellaneous 1 each 01/17/18 22:00 01/20/18 21:08 Lidoderm Patch Removal MC 1 each DAILY@2200 [facility] Administration Vancomycin HCl 125 mg 01/18/18 18:00 01/21/18 12:42 Vancomycin Oral Solution PO 125 mg Q6HPO [facility] Administration Impression 1. ESRD 2. failed kidney transplant 3. hx DM 4. Hx HTN 5. altered mental status 6. post op infection 7. c.diff 8. a-fib Plan - will arrange for HD in am - can add nepro - monitor j/p output - epogen for anemia - cont wound care - discussed with family - will follow pt
--- NOTE | 2018-01-21 16:12 | PN ---
Physical Exam: SUBJECTIVE: Patient seen and examined at bedside this morning. No acute events overnight. Patient is more verbal and more alert. OBJECTIVE: Vital Signs Period Temp Pulse Resp BP Sys/Franco Pulse Ox Last 24 Hr 96.9 F-98.4 F 73-88 - 131-158/71-78 93-93 GENERAL: Lying in bed, in no acute distress. LUNGS: Breath sounds clear to auscultation bilaterally. HEART: Regular rate and rhythm, S1, S2 without murmur, rub or gallop. ABDOMEN: Soft, nontender, nondistended, normoactive bowel sounds, +open wound with yellowish discharge, no swelling or erythema. BIJU drain in place draining serosanguinous fluid. EXTREMITIES: palpable DP pulses bilaterally, warm, well-perfused, no edema. SKIN: Warm, dry, normal turgor. Laboratory Results - last 24 hr 01/15/18 01/21/18 01/21/18 16:49 06:00 06:00 WBC 7.0 RBC 2.95 L Hgb 9.2 L Hct 27.6 L MCV 93.5 MCH 31.1 MCHC 33.3 RDW 17.5 H Plt Count 256 MPV 8.4 Absolute Neuts (auto) 4.3 Neutrophils % 61.8 Lymphocytes % 26.9 D Monocytes % 8.1 Eosinophils % 1.8 D Basophils % 1.4 Nucleated RBC % 0 Sodium 145 Potassium 4.1 Chloride 107 Carbon Dioxide 30 Anion Gap 9 BUN 21 H Creatinine 3.3 H Creat Clearance w eGFR 13.52 Random Glucose 73 L Calcium 9.6 Phosphorus 3.0 Magnesium 1.9 Total Bilirubin 0.7 AST 20 ALT 14 Alkaline Phosphatase 126 H Total Protein 6.6 Albumin 2.0 L Blood Type O POSITIVE Antibody Screen Positive H Antibody Identification Anti c Antigen Identification c Antigen - NEGATIVE Crossmatch See Detail Active Medications Generic Name Dose Route Start Last Admin Trade Name Freq PRN Reason Stop Dose Admin Acetaminophen 650 mg 01/18/18 17:48 01/21/18 12:42 Tylenol - PO 650 mg Q6H PRN Administration Fever Albumin Human 12.5 gm 01/22/18 15:45 Albumin Human 25% IVPB Q30M [facility] Artificial Tears 1 drop 01/17/18 10:00 Artificial Tears OU DAILY PRN DRY EYES Epoetin Abe 6,000 unit 01/22/18 15:39 Epogen - IVPUSH 10/02/18 15:40 ONCE ONE Heparin Sodium (Porcine) 5,000 unit 01/18/18 22:00 01/21/18 14:09 Heparin - SQ 5,000 unit TID [facility] Administration Ertapenem 0.5 gm/ Sodium 50 mls @ 100 mls/hr 01/18/18 16:00 01/21/18 10:29 Chloride IVPB 100 mls/hr DAILY [facility] Administration Protocol Sodium Chloride 250 mls @ 3,000 mls/hr 01/21/18 15:39 Normal Saline - IV 01/22/18 15:39 PRN PRN Hypotension during Dialysis Lidocaine 1 patch 01/17/18 14:45 01/21/18 10:29 Lidoderm Patch - TP 1 patch DAILY [facility] Administration Metoprolol Tartrate 25 mg 01/20/18 10:00 01/21/18 10:29 Lopressor - PO 25 mg BID [facility] Administration Miscellaneous 1 each 01/17/18 22:00 01/20/18 21:08 Lidoderm Patch Removal MC 1 each DAILY@2200 [facility] Administration Vancomycin HCl 125 mg 01/18/18 18:00 01/21/18 12:42 Vancomycin Oral Solution PO 125 mg Q6HPO [facility] Administration Microbiology 01/18/18 12:52 Abscess AFB Smear Concentration - Preliminary 01/18/18 12:52 Abscess Mycobacterial Culture - Preliminary 01/18/18 12:52 Abscess ADOLFO Preparation - Preliminary 01/18/18 12:52 Abscess Fungal Culture - Preliminary 01/17/18 11:40 Wound-Other Gram Stain - Final 01/17/18 11:40 Wound-Other Wound Culture - Final Escherichia Coli Proteus Mirabilis 01/18/18 12:52 Abscess Gram Stain - Final 01/18/18 12:52 Abscess Body Fluid Culture - Final Escherichia Coli Esbl [employer] 01/18/18 12:52 Abscess Anaerobic Culture - Final 01/15/18 16:52 Blood - Peripheral Venous Blood Culture - Final NO GROWTH AFTER 5 DAYS INCUBATION 01/15/18 16:52 Blood - Peripheral Venous Blood Culture - Final NO GROWTH AFTER [address] abdomen/pelvis with contrast (01/17/2018) - Multiple surgical metallic clips again limiting evaluation of the right hemipelvis soft tissue due to beam hardening artifacts. Interval slight increase in size of previously described collection in the right hemipelvis with thick, irregular and enhancing wall. It is at the expected anatomical location of a resected pelvic kidney as per history. No gross free air or free fluid in the abdomen or pelvis. Multiple cystic densities in the pancreas for which correlation with MRI is needed. Limited visualization of the gallbladder due to motion/breathing artifact with suggestion of a sludge layering posteriorly again seen. Duplex US of RUE - No evidence of deep venous thrombosis. CT abdomen/pelvis with contrast (01/15/2018) - Small to moderate size hiatus hernia. Atelectatic changes with nodular opacities in the left lung base likely representing infiltrates for which a follow-up CT scan of the chest in one to 2 weeks is recommended. Moderate size hiatus hernia. Slightly overdistended gallbladder with suggestion of a sludge layering posteriorly. Dilated common bile duct measuring 1.3 cm multiple cystic densities in the pancreas with correlation with MRI. Bilateral atrophic kidneys. Multiple surgical metallic clips in the right hemipelvis obscuring the soft tissue details. However, there is a focal low-attenuation density in the right hemipelvis measuring 4.5 cm likely representing a collection/abscess at the site of prior right renal transplant that was resected according to the submitted clinical history. Extensive diverticulosis coli mainly in the sigmoid colon without evidence of acute diverticulitis. CXR - [id number] cardiomegaly without evidence of acute lung disease. ASSESSMENT/PLAN: Patient is a 77 year old female, previously admitted at [facility] for 144 days (s/p failed renal transplant, s/p removal), discharged AMA, as per son, brought at the ED for lethargy. #Abdominal wound: s/p IR-guided drainage of serosanguinous fluid -BIJU drain in place, drained 25ml today, flush catheter q8h -(+)yellowish discharge draining from wound -Fluid sent for cultures - +ESBL, +non-lactose fermenting gram negative bacilli -Repeat wound cultures -+E.coli, +Proteus -Surgery (Dr. Kelly) consulted. Recommendations appreciated. -ID (Dr. Shanks) consulted. Recommendations appreciated. -Continue Ertapenem and Vancomycin (Day 4) -Contact isolation. -Proper wound care. #ESRD: failed renal transplant, s/p removal -Nephrology (Dr. Winters) consulted. Recommendations appreciated. -For hemodialysis tomorrow (TTS) #Altered mental status -Speech and swallow evaluation. Recommendations appreciated. -No PO trials could be given. -Dysphagia puree diet. -Feed only if interactive. -monitor closely #RLE DVT -SCDs applied -Eliquis 2.5 mg BID started today. -I called the son, Aries, who is the HCP, and informed him that we will start patient on Eliquis. The son understood and agreed with the plan. -Will monitor H/H. -Will continue eliquis as long as patient remains hemodynamically stable. #Atrial fibrillation -Started eliquis 2.5 mg BID -Metoprolol (Lopressor) 25mg BID. #Anemia -likely 2/2 iron deficiency and ESRD -Epogen given. #FEN -Will need halfway access -Electrolytes wnl, routine bmp monitoring -dysphagia puree diet. #Prophylaxis -Eliquis 2.5 mg BID. #Disposition -Declined for transfer by multiple tertiary care centers. -Son declines transfer to [facility]. Visit type - Emergency Visit Emergency Visit: Yes ED Registration Date: 01/16/18 Care time: The patient presented to the Emergency Department on the above date and was hospitalized for further evaluation of their emergent condition. - New Patient This patient is new to me today: Yes Date on this admission: 01/21/18 - Critical Care Critical Care patient: No
[2018-01-21] MEDS: APIXABAN 2.5 MG TABLET PO SCH (22:18)
[2018-01-21] MEDS: LIDOCAINE PATCH REMOVAL MC SCH (22:18)
[2018-01-22] MEDS: ACETAMINOPHEN 325 MG TABLET (FP) PO PRN ×3 (05:33→22:30)
[2018-01-22] MEDS: VANCOMYCIN 250 MG/5 ML ORAL SOLUTION PO SCH ×4 (05:34→23:58)
[2018-01-22] MEDS: METOPROLOL TARTRATE 25 MG TABLET (FP) PO SCH ×2 (10:24→22:30)
[2018-01-22] MEDS: APIXABAN 2.5 MG TABLET PO SCH ×2 (10:24→22:30)
[2018-01-22] MEDS: LIDOCAINE 5% TOPICAL PATCH TP SCH (10:24)
--- NOTE | 2018-01-22 11:18 | PN ---
Progress Note, MUSEUM ARCHIVIST - Note Progress Note: Selected Entries 01/21/18 01/21/18 01/21/18 06:00 09:19 10:00 Breakfast 25% Supper Temperature 96.9 F L 97.5 F L 01/21/18 01/21/18 01/21/18 14:49 16:55 21:30 Breakfast Supper 100% Temperature 97.4 F L 97.8 F 01/21/18 01/22/18 01/22/18 22:31 06:00 10:00 Breakfast Supper Temperature 97.8 F 97.4 F L 98.0 F Improving. Lethargiuc but arousable. To continue on puree/thin for now. Not drinking a lot.Encourage Nepro.
[2018-01-22] MEDS: ERTAPENEM SODIUM 0.5 GM in SODIUM CHLORIDE 50 ML IVPB SCH (11:34)
[2018-01-22] MEDS ORDERED: EPOETIN ALFA 3,000 UNIT/1 ML ML IVPUSH ONE (12:00)
--- NOTE | 2018-01-22 12:38 | PN ---
Teaching Attending Note Name of Resident: Marisela Simmons ATTENDING PHYSICIAN STATEMENT I saw and evaluated the patient. I reviewed the resident's note and discussed the case with the resident. I agree with the resident's findings and plan as documented. SUBJECTIVE:resting comfortable OBJECTIVE: Last Vital Signs Temp Pulse Resp BP Pulse Ox 98.0 F 76 20 142/78 94 L 01/22/18 10:00 01/22/18 10:00 01/22/18 10:00 01/22/18 10:00 01/22/18 09:00 Intake & Output 01/19/18 01/20/18 01/21/18 01/22/18 23:59 23:59 23:59 23:59 Intake Total 470 570 450 0 Output Total 15 60 25 20 Balance 455 510 425 -20 Weight 110 lb 110 lb 113 lb 8 oz General NAD A&O x1 (self only) CV S1 S2 RRR +murmur Lungs CTA anteriorly Abdomen soft +guarding and refuses palpation. +abdominal binder +BIJU Drain in RLQ. 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 1. Abdominal wound dehiscence with fluid collection s/ BIJU drain placement 01/18. 20cc drainage. +ESBL ecoli in wound. on ertapenem day 5. will likely require mcfp abx. will d/w ID about duration and possible need for tunneled catheter.ID on board 2. Failed transplant kidney in 09/2017, s/p removal/off immunosuppressants, on HD. cont HD per normal schedule. renal on board 3. Acute metabolic toxic encephalopathy- likely due to renal failure and infection in setting of gradual decline from recent prolonged hospital stay. informed she is at baseline from her hospital course here. 4. 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 on vanco po, likely will require life long treatment. contact precautions. start pro-biotic 5. ESBL Ecoli UTI- on ertapenem 6. h/o RLE DVT, repeat duplex neg here 7. Anemia of chronic disease- 1 unit PRBC during this hospital stay. no indication for transfusion. no signs of bleeding 8. h/o AFib with wide complex tachycardia- on metoprolol/eliquis. Hgb remains stable 9. Prolonged QTc- Qtc 496. avoid QT prolonging medication 10. DVT ppx- eliquis 11. will need to d/w son about dispo when medically stable for discharge if desires to take home or placement.
--- NOTE | 2018-01-22 12:58 | PN ---
Physical Exam: SUBJECTIVE: Patient seen and examined at bedside this morning. No acute events overnight. Patient remains alert and is resting comfortably. OBJECTIVE: Vital Signs Period Temp Pulse Resp BP Sys/Franco Pulse Ox Last 24 Hr 97.4 F-98.0 F 73-76 18-20 142-158/73-91 94-94 GENERAL: Lying in bed, in no acute distress. LUNGS: Breath sounds clear to auscultation bilaterally. HEART: Regular rate and rhythm, S1, S2 without murmur, rub or gallop. ABDOMEN: Soft, nontender, nondistended, normoactive bowel sounds, +open wound with yellowish discharge, no swelling or erythema. BIJU drain in place draining serosanguinous fluid. EXTREMITIES: palpable DP pulses bilaterally, warm, well-perfused, no edema. SKIN: Warm, dry, normal turgor. Active Medications Generic Name Dose Route Start Last Admin Trade Name Freq PRN Reason Stop Dose Admin Acetaminophen 650 mg 01/18/18 17:48 01/22/18 05:33 Tylenol - PO 650 mg Q6H PRN Administration Fever Albumin Human 12.5 gm 01/22/18 12:00 Albumin Human 25% IVPB 01/22/18 13:31 Q30M [facility] Apixaban 2.5 mg 01/21/18 22:00 01/22/18 10:24 Eliquis - PO 2.5 mg BID [facility] Administration Artificial Tears 1 drop 01/17/18 10:00 Artificial Tears OU DAILY PRN DRY EYES Ertapenem 0.5 gm/ Sodium 50 mls @ 100 mls/hr 01/18/18 16:00 01/22/18 11:34 Chloride IVPB 100 mls/hr DAILY [facility] Administration Protocol Sodium Chloride 250 mls @ 3,000 mls/hr 01/21/18 15:39 Normal Saline - IV 01/22/18 15:39 PRN PRN Hypotension during Dialysis Lactobacillus Acidophilus 1 tab 01/23/18 10:00 Bacid - PO DAILY [facility] Lidocaine 1 patch 01/17/18 14:45 01/22/18 10:24 Lidoderm Patch - TP 1 patch DAILY [facility] Administration Metoprolol Tartrate 25 mg 01/20/18 10:00 01/22/18 10:24 Lopressor - PO 25 mg BID [facility] Administration Miscellaneous 1 each 01/17/18 22:00 01/21/18 22:18 Lidoderm Patch Removal MC 1 each DAILY@2200 [facility] Administration Vancomycin HCl 125 mg 01/18/18 18:00 01/22/18 11:46 Vancomycin Oral Solution PO 125 mg Q6HPO [facility] Administration Microbiology 01/18/18 12:52 Abscess AFB Smear Concentration - Preliminary 01/18/18 12:52 Abscess Mycobacterial Culture - Preliminary 01/18/18 12:52 Abscess ADOLFO Preparation - Preliminary 01/18/18 12:52 Abscess Fungal Culture - Preliminary 01/17/18 11:40 Wound-Other Gram Stain - Final 01/17/18 11:40 Wound-Other Wound Culture - Final Escherichia Coli Proteus Mirabilis 01/18/18 12:52 Abscess Gram Stain - Final 01/18/18 12:52 Abscess Body Fluid Culture - Final Escherichia Coli Esbl Control Specialist 01/18/18 12:52 Abscess Anaerobic Culture - Final 01/15/18 16:52 Blood - Peripheral Venous Blood Culture - Final NO GROWTH AFTER 5 DAYS INCUBATION 01/15/18 16:52 Blood - Peripheral Venous Blood Culture - Final NO GROWTH AFTER [address] abdomen/pelvis with contrast (01/17/2018) - Multiple surgical metallic clips again limiting evaluation of the right hemipelvis soft tissue due to beam hardening artifacts. Interval slight increase in size of previously described collection in the right hemipelvis with thick, irregular and enhancing wall. It is at the expected anatomical location of a resected pelvic kidney as per history. No gross free air or free fluid in the abdomen or pelvis. Multiple cystic densities in the pancreas for which correlation with MRI is needed. Limited visualization of the gallbladder due to motion/breathing artifact with suggestion of a sludge layering posteriorly again seen. Duplex US of RUE - No evidence of deep venous thrombosis. CT abdomen/pelvis with contrast (01/15/2018) - Small to moderate size hiatus hernia. Atelectatic changes with nodular opacities in the left lung base likely representing infiltrates for which a follow-up CT scan of the chest in one to 2 weeks is recommended. Moderate size hiatus hernia. Slightly overdistended gallbladder with suggestion of a sludge layering posteriorly. Dilated common bile duct measuring 1.3 cm multiple cystic densities in the pancreas with correlation with MRI. Bilateral atrophic kidneys. Multiple surgical metallic clips in the right hemipelvis obscuring the soft tissue details. However, there is a focal low-attenuation density in the right hemipelvis measuring 4.5 cm likely representing a collection/abscess at the site of prior right renal transplant that was resected according to the submitted clinical history. Extensive diverticulosis coli mainly in the sigmoid colon without evidence of acute diverticulitis. CXR - [id number] cardiomegaly without evidence of acute lung disease. ASSESSMENT/PLAN: Patient is a 77 year old female, previously admitted at [facility] for 144 days (s/p failed renal transplant, s/p removal), discharged AMA, as per son, brought at the ED for lethargy. #Abdominal wound: s/p IR-guided drainage of serosanguinous fluid -BIJU drain in place, drained 20ml today, flush catheter q8h -(+)yellowish discharge draining from wound -Fluid sent for cultures - +ESBL, +non-lactose fermenting gram negative bacilli -Repeat wound cultures -+E.coli, +Proteus -Surgery (Dr. Kelly) consulted. Recommendations appreciated. -ID (Dr. Shanks) consulted. Recommendations appreciated. -Continue Ertapenem and Vancomycin (Day 5) -Probiotic therapy. -Contact isolation. -Proper wound care. #ESRD: failed renal transplant, s/p removal -Nephrology (Dr. Winters) consulted. Recommendations appreciated. -For hemodialysis today.(TTS) #Altered mental status: patient remains at baseline from when she came here -likely acute metabolic toxic encephalopathy from renal failure and infection. -Speech and swallow evaluation. Recommendations appreciated. -No PO trials could be given. -Dysphagia puree diet. -Feed only if interactive. -monitor closely #RLE DVT -Duplex US of RUE - No evidence of deep venous thrombosis. -SCDs applied -Eliquis 2.5 mg BID started. -I called the son, Aries, who is the HCP, and informed him that we will start patient on Eliquis. The son understood and agreed with the plan. -Will monitor H/H. -Will continue eliquis as long as patient remains hemodynamically stable. #Atrial fibrillation -Started eliquis 2.5 mg BID -Metoprolol (Lopressor) 25mg BID. #Anemia -likely 2/2 iron deficiency and ESRD -Epogen given. #FEN -Not on any standing fluids. -Electrolytes wnl, routine bmp monitoring -dysphagia puree diet. #Prophylaxis -Eliquis 2.5 mg BID. #Disposition -Declined for transfer by multiple tertiary care centers. -Will discuss with son about dispo when patient is medically stable. Visit type - Emergency Visit Emergency Visit: Yes ED Registration Date: 01/16/18 Care time: The patient presented to the Emergency Department on the above date and was hospitalized for further evaluation of their emergent condition. - New Patient This patient is new to me today: Yes Date on this admission: 01/22/18 - Critical Care Critical Care patient: No
[2018-01-22 13:09] LABS: BASO % 1.1 % (0-2.0); EOS % 1.5 % (0-4.5); HEMATOCRIT 28.8 % (32.4-45.2); HEMOGLOBIN 9.4 GM/dL (10.7-15.3); LYMPH % 17.9 % (8-40); MCHC 32.5 g/dl (32.0-36.0); MEAN CELL VOLUME 95.3 fl (80-96); MEAN PLT VOLUME 8.9 fl (7.5-11.1); MONO % 7.7 % (3.8-10.2); NEUT % 71.8 % (42.8-82.8); PLATELET COUNT 284 K/MM3 (134-434); RBC 3.03 M/mm3 (3.60-5.2); RDW 17.5 % (11.6-15.6); WHITE BLOOD COUNT 7.4 K/mm3 (4.0-10.0)
[2018-01-22 13:34] LABS: ALBUMIN 1.8 g/dl (3.4-5.0); ALK PHOS 136 U/L (45-117); ANION GAP 0 MMOL/L (8-16); BILIRUBIN,TOTAL 0.5 mg/dL (0.2-1); BLOOD UREA NITROGEN 30 mg/dL (7-18); CALCIUM 8.9 mg/dL (8.5-10.1); CHLORIDE 109 mmol/L (98-107); CO2 28 mmol/L (21-32); CREATININE 4.4 mg/dL (0.55-1.3); GLUCOSE,RANDOM 122 mg/dL (74-106); PHOSPHOROUS 3.4 mg/dL (2.5-4.9); POTASSIUM 4.3 mmol/L (3.5-5.1); SGOT/AST 13 U/L (15-37); SGPT/ALT 13 U/L (13-61); SODIUM 137 mmol/L (136-145); TOT PROT 6.4 g/dl (6.4-8.2)
[2018-01-22] MEDS: ALBUMIN HUMAN 25% 12.5 GM/50 ML VIAL IVPB SCH ×2 (16:06→16:07)
--- NOTE | 2018-01-22 16:12 | PN ---
Progress Note, Physician History of Present Illness: Pt seen and examined at bedside. She is awake and appears comfortable. She is tolerating HD. - Current Medication List Current Medications: Active Medications Acetaminophen (Tylenol -) 650 mg PO Q6H PRN PRN Reason: Fever Last Admin: 01/22/18 14:29 Dose: 650 mg Apixaban (Eliquis -) 2.5 mg PO BID [facility] Last Admin: 01/22/18 10:24 Dose: 2.5 mg Artificial Tears (Artificial Tears) 1 drop OU DAILY PRN PRN Reason: DRY EYES Ertapenem 0.5 gm/ Sodium (Chloride) 50 mls @ 100 mls/hr IVPB DAILY [facility]; Protocol Last Admin: 01/22/18 11:34 Dose: 100 mls/hr Lactobacillus Acidophilus (Bacid -) 1 tab PO DAILY [facility] Lidocaine (Lidoderm Patch -) 1 patch TP DAILY [facility] Last Admin: 01/22/18 10:24 Dose: 1 patch Metoprolol Tartrate (Lopressor -) 25 mg PO BID [facility] Last Admin: 01/22/18 10:24 Dose: 25 mg Miscellaneous (Lidoderm Patch Removal) 1 each MC DAILY@2200 [facility] Last Admin: 01/21/18 22:18 Dose: 1 each Vancomycin HCl (Vancomycin Oral Solution) 125 mg PO Q6HPO [facility] Last Admin: 01/22/18 11:46 Dose: 125 mg - Objective Vital Signs: Vital Signs Temperature 98.1 F 01/22/18 12:25 Pulse Rate 87 01/22/18 15:35 Respiratory Rate 18 01/22/18 15:35 Blood Pressure 120/66 01/22/18 15:35 O2 Sat by Pulse Oximetry (%) 94 L 01/22/18 09:00 Constitutional: Yes: Calm, Cachectic Eyes: Yes: Conjunctiva Clear HENT: Yes: Atraumatic Neck: Yes: Supple Cardiovascular: Yes: S1, S2 Respiratory: Yes: CTA Bilaterally Gastrointestinal: Yes: Soft Genitourinary: Yes: Other (dressings in place) Edema: No Neurological: Yes: Other (awake) Labs: CBC, BMP 01/22/18 12:30 01/22/18 12:30 INR, PTT INR 1.15 (0.83-1.09) H 01/16/18 08:50 Problem List - Problems (1) ESRD (end stage renal disease) on dialysis Code(s): N18.6 - END STAGE RENAL DISEASE; Z99.2 - DEPENDENCE ON RENAL DIALYSIS Assessment/Plan Current Medications Generic Name Dose Route Start Last Admin Trade Name Freq PRN Reason Stop Dose Admin Acetaminophen 650 mg 01/18/18 17:48 01/22/18 14:29 Tylenol - PO 650 mg Q6H PRN Administration Fever Apixaban 2.5 mg 01/21/18 22:00 01/22/18 10:24 Eliquis - PO 2.5 mg BID [facility] Administration Artificial Tears 1 drop 01/17/18 10:00 Artificial Tears OU DAILY PRN DRY EYES Ertapenem 0.5 gm/ Sodium 50 mls @ 100 mls/hr 01/18/18 16:00 01/22/18 11:34 Chloride IVPB 100 mls/hr DAILY [facility] Administration Protocol Lactobacillus Acidophilus 1 tab 01/23/18 10:00 Bacid - PO DAILY [facility] Lidocaine 1 patch 01/17/18 14:45 01/22/18 10:24 Lidoderm Patch - TP 1 patch DAILY [facility] Administration Metoprolol Tartrate 25 mg 01/20/18 10:00 01/22/18 10:24 Lopressor - PO 25 mg BID [facility] Administration Miscellaneous 1 each 01/17/18 22:00 01/21/18 22:18 Lidoderm Patch Removal MC 1 each DAILY@2200 [facility] Administration Vancomycin HCl 125 mg 01/18/18 18:00 01/22/18 11:46 Vancomycin Oral Solution PO 125 mg Q6HPO [facility] Administration Impression 1. ESRD 2. failed kidney transplant 3. hx DM 4. Hx HTN 5. altered mental status 6. post op infection 7. c.diff 8. a-fib Plan - HD today - epogen for anemia - abx per primary team - surgery follow up for abscess/wound - encourage PO intake - cont wound care - will follow pt
--- NOTE | 2018-01-22 17:03 | PN ---
Progress Note (short form) - Note Progress Note: much more alert Vital Signs Period Temp Pulse Resp BP Sys/Franco Pulse Ox Last 24 Hr 97.4 F-98.1 F 74-97 18-20 103-157/63-91 94-94 cor-rrr lungs clear abd soft,nt, less hanny drainage ext no edema CBC, BMP 01/22/18 12:30 01/22/18 12:30 Microbiology 01/18/18 12:52 Abscess AFB Smear Concentration - Final 01/18/18 12:52 Abscess Mycobacterial Culture - Preliminary 01/18/18 12:52 Abscess ADOLFO Preparation - Preliminary 01/18/18 12:52 Abscess Fungal Culture - Preliminary 01/17/18 11:40 Wound-Other Gram Stain - Final 01/17/18 11:40 Wound-Other Wound Culture - Final Escherichia Coli Proteus Mirabilis 01/18/18 12:52 Abscess Gram Stain - Final 01/18/18 12:52 Abscess Body Fluid Culture - Final Escherichia Coli Esbl Controller Repairer And Tester 01/18/18 12:52 Abscess Anaerobic Culture - Final 01/15/18 16:52 Blood - Peripheral Venous Blood Culture - Final NO GROWTH AFTER 5 DAYS INCUBATION 01/15/18 16:52 Blood - Peripheral Venous Blood Culture - Final NO GROWTH AFTER 5 DAYS INCUBATION 01/15/18 16:25 Abdomen Gram Stain - Final 01/15/18 16:25 Abdomen Wound Culture - Final Escherichia Coli Esbl Controller Repairer And Tester Escherichia Coli Esbl Controller Repairer And Tester#2 Proteus Mirabilis 01/15/18 16:25 Urine - Urine German Urine Culture - Final Escherichia Coli Esbl Controller Repairer And Tester Current Medications Acetaminophen (Tylenol -) 650 mg PO Q6H PRN PRN Reason: Fever Last Admin: 01/22/18 14:29 Dose: 650 mg Apixaban (Eliquis -) 2.5 mg PO BID [facility] Last Admin: 01/22/18 10:24 Dose: 2.5 mg Artificial Tears (Artificial Tears) 1 drop OU DAILY PRN PRN Reason: DRY EYES Ertapenem 0.5 gm/ Sodium (Chloride) 50 mls @ 100 mls/hr IVPB DAILY [facility]; Protocol Last Admin: 01/22/18 11:34 Dose: 100 mls/hr Lactobacillus Acidophilus (Bacid -) 1 tab PO DAILY [facility] Lidocaine (Lidoderm Patch -) 1 patch TP DAILY [facility] Last Admin: 01/22/18 10:24 Dose: 1 patch Metoprolol Tartrate (Lopressor -) 25 mg PO BID [facility] Last Admin: 01/22/18 10:24 Dose: 25 mg Miscellaneous (Lidoderm Patch Removal) 1 each MC DAILY@2200 [facility] Last Admin: 01/21/18 22:18 Dose: 1 each Vancomycin HCl (Vancomycin Oral Solution) 125 mg PO Q6HPO [facility] Last Admin: 01/22/18 11:46 Dose: 125 mg d/w son at bedside a/p s/p IR drainage of infected hematoma-ecolli esbl sensitive to ertapenem-day #4 history cdiff- continue po vancomycin 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 difficile colitis Code(s): A04.72 - ENTEROCOLITIS D/T CLOSTRIDIUM DIFFICILE, NOT SPCF RECUR (3) Altered mental status Code(s): R41.82 - ALTERED MENTAL STATUS, UNSPECIFIED (4) ESRD (end stage renal disease) on dialysis Code(s): N18.6 - END STAGE RENAL DISEASE; Z99.2 - DEPENDENCE ON RENAL DIALYSIS
[2018-01-22] MEDS: LIDOCAINE PATCH REMOVAL MC SCH (22:31)
[2018-01-23] MEDS: ACETAMINOPHEN 325 MG TABLET (FP) PO PRN (05:26)
[2018-01-23] MEDS: VANCOMYCIN 250 MG/5 ML ORAL SOLUTION PO SCH ×3 (05:26→18:06)
[2018-01-23 06:33] LABS: HEMATOCRIT 29.2 % (32.4-45.2); HEMOGLOBIN 9.2 GM/dL (10.7-15.3); MCH 30.3 pg (25.7-33.7); MCHC 31.5 g/dl (32.0-36.0); MEAN CELL VOLUME 96.2 fl (80-96); MEAN PLT VOLUME 8.7 fl (7.5-11.1); PLATELET COUNT 242 K/MM3 (134-434); RBC 3.04 M/mm3 (3.60-5.2); RDW 17.2 % (11.6-15.6); WHITE BLOOD COUNT 9.3 K/mm3 (4.0-10.0)
[2018-01-23 06:59] LABS: ANION GAP 4 MMOL/L (8-16); BLOOD UREA NITROGEN 18 mg/dL (7-18); CALCIUM 9.1 mg/dL (8.5-10.1); CHLORIDE 106 mmol/L (98-107); CO2 35 mmol/L (21-32); CREATININE 2.7 mg/dL (0.55-1.3); GLUCOSE,RANDOM 92 mg/dL (74-106); POTASSIUM 3.9 mmol/L (3.5-5.1); SODIUM 145 mmol/L (136-145)
[2018-01-23] MEDS ORDERED: PT OWN MED DRAWER 7, Y5N ONE ×2 (08:45→09:10)
[2018-01-23] MEDS: LACTOBACILLUS ACIDOPHILUS 1 TABLET PO SCH (09:08)
[2018-01-23] MEDS: METOPROLOL TARTRATE 25 MG TABLET (FP) PO SCH ×2 (09:08→22:17)
[2018-01-23] MEDS: APIXABAN 2.5 MG TABLET PO SCH ×2 (09:09→22:17)
[2018-01-23] MEDS: LIDOCAINE 5% TOPICAL PATCH TP SCH (10:05)
[2018-01-23] MEDS: ERTAPENEM SODIUM 0.5 GM in SODIUM CHLORIDE 50 ML IVPB SCH (10:05)
[2018-01-23] MEDS ORDERED: SODIUM CHLORIDE 250 ML IV PRN (10:21)
--- NOTE | 2018-01-23 10:21 | PN ---
Progress Note, Physician History of Present Illness: Pt seen and examined at bedside. SHe is awake and appears comfortable. - Current Medication List Current Medications: Active Medications Acetaminophen (Tylenol -) 650 mg PO Q6H PRN PRN Reason: Fever Last Admin: 01/23/18 05:26 Dose: 650 mg Apixaban (Eliquis -) 2.5 mg PO BID [facility] Last Admin: 01/23/18 09:09 Dose: 2.5 mg Artificial Tears (Artificial Tears) 1 drop OU DAILY PRN PRN Reason: DRY EYES Ertapenem 0.5 gm/ Sodium (Chloride) 50 mls @ 100 mls/hr IVPB DAILY [facility]; Protocol Last Admin: 01/23/18 10:05 Dose: 100 mls/hr Lactobacillus Acidophilus (Bacid -) 1 tab PO DAILY [facility] Last Admin: 01/23/18 09:08 Dose: 1 tab Lidocaine (Lidoderm Patch -) 1 patch TP DAILY [facility] Last Admin: 01/23/18 10:05 Dose: 1 patch Metoprolol Tartrate (Lopressor -) 25 mg PO BID [facility] Last Admin: 01/23/18 09:08 Dose: 25 mg Miscellaneous (Lidoderm Patch Removal) 1 each MC DAILY@2200 [facility] Last Admin: 01/22/18 22:31 Dose: 1 each Vancomycin HCl (Vancomycin Oral Solution) 125 mg PO Q6HPO [facility] Last Admin: 01/23/18 05:26 Dose: 125 mg - Objective Vital Signs: Vital Signs Temperature 97.9 F 01/23/18 05:36 Pulse Rate 73 01/23/18 05:36 Respiratory Rate 20 01/23/18 05:36 Blood Pressure 146/75 01/23/18 05:36 O2 Sat by Pulse Oximetry (%) 100 01/22/18 21:00 Constitutional: Yes: Calm Eyes: Yes: Conjunctiva Clear HENT: Yes: Atraumatic Cardiovascular: Yes: S1, S2 Respiratory: Yes: CTA Bilaterally Gastrointestinal: Yes: Soft, Other (dressing in place, j/p drain in place) Genitourinary: Yes: Incontinence Musculoskeletal: Yes: Muscle Weakness Edema: No Neurological: Yes: Confusion, Other (awake) Labs: CBC, BMP 01/23/18 06:00 01/23/18 06:00 INR, PTT INR 1.15 (0.83-1.09) H 01/16/18 08:50 Problem List - Problems (1) ESRD (end stage renal disease) on dialysis Code(s): N18.6 - END STAGE RENAL DISEASE; Z99.2 - DEPENDENCE ON RENAL DIALYSIS Assessment/Plan Current Medications Generic Name Dose Route Start Last Admin Trade Name Freq PRN Reason Stop Dose Admin Acetaminophen 650 mg 01/18/18 17:48 01/23/18 05:26 Tylenol - PO 650 mg Q6H PRN Administration Fever Apixaban 2.5 mg 01/21/18 22:00 01/23/18 09:09 Eliquis - PO 2.5 mg BID [facility] Administration Artificial Tears 1 drop 01/17/18 10:00 Artificial Tears OU DAILY PRN DRY EYES Ertapenem 0.5 gm/ Sodium 50 mls @ 100 mls/hr 01/18/18 16:00 01/23/18 10:05 Chloride IVPB 100 mls/hr DAILY [facility] Administration Protocol Lactobacillus Acidophilus 1 tab 01/23/18 10:00 01/23/18 09:08 Bacid - PO 1 tab DAILY [facility] Administration Lidocaine 1 patch 01/17/18 14:45 01/23/18 10:05 Lidoderm Patch - TP 1 patch DAILY [facility] Administration Metoprolol Tartrate 25 mg 01/20/18 10:00 01/23/18 09:08 Lopressor - PO 25 mg BID [facility] Administration Miscellaneous 1 each 01/17/18 22:00 01/22/18 22:31 Lidoderm Patch Removal MC 1 each DAILY@2200 [facility] Administration Vancomycin HCl 125 mg 01/18/18 18:00 01/23/18 05:26 Vancomycin Oral Solution PO 125 mg Q6HPO [facility] Administration Impression 1. ESRD 2. failed kidney transplant 3. hx DM 4. Hx HTN 5. altered mental status 6. post op infection 7. c.diff 8. a-fib Plan - next hd tomorrow - epogen for anemia - encourage PO intake, continue nepro - abx per primary team - surgery follow up for abscess/wound - cont wound care - will follow pt
--- NOTE | 2018-01-23 10:55 | PN ---
Teaching Attending Note Name of Resident: Marisela Simmons ATTENDING PHYSICIAN STATEMENT I saw and evaluated the patient. I reviewed the resident's note and discussed the case with the resident. I agree with the resident's findings and plan as documented. SUBJECTIVE:resting comfortable. denies CP, SOB, fever, chills, N/V/C/D OBJECTIVE: Last Vital Signs Temp Pulse Resp BP Pulse Ox 97.9 F 73 20 146/75 94 L 01/23/18 05:36 01/23/18 05:36 01/23/18 09:00 01/23/18 05:36 01/23/18 09:00 Intake & Output 01/20/18 01/21/18 01/22/18 01/23/18 23:59 23:59 23:59 23:59 Intake Total 570 450 300 0 Output Total 60 25 40 15 Balance 510 425 260 -15 Weight 110 lb 113 lb 8 oz 112 lb 8 oz General NAD A&O x1 (self only) CV S1 S2 RRR +murmur Lungs CTA anteriorly Abdomen soft +guarding and refuses palpation. +abdominal binder +BIJU Drain in RLQ. no surrounding erythema Extremities no pedal edema ASSESSMENT AND PLAN: 77 yo F with reportedly prolonged stay at [facility] for PNA, cdiff (requiring fecal transplant), 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 1. Abdominal wound dehiscence with fluid collection s/ BIJU drain placement 01/18. +ESBL ecoli in wound. on ertapenem day 6. will likely require technician terminal and repeater abx. will d/w ID about duration and possible need for tunneled catheter.ID on board 2. Failed transplant kidney in 09/2017, s/p removal/off immunosuppressants, on HD. cont HD per normal schedule. renal on board 3. Acute metabolic toxic encephalopathy- likely due to renal failure and infection in setting of gradual decline from recent prolonged hospital stay. informed she is at baseline from her hospital course here. 4. 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 on vanco po, likely will require life long treatment. contact precautions. cont pro-biotic 5. ESBL Ecoli UTI- on ertapenem 6. h/o RLE DVT, repeat duplex neg here 7. Anemia of chronic disease- 1 unit PRBC during this hospital stay. no indication for transfusion. no signs of bleeding 8. h/o AFib with wide complex tachycardia- on metoprolol/eliquis. Hgb remains stable 9. Prolonged QTc- Qtc 496. avoid QT prolonging medication 10. DVT ppx- eliquis 11. will need to d/w son about dispo when medically stable for discharge if desires to take home or placement.
--- NOTE | 2018-01-23 11:50 | PN ---
Progress Note, CHIEF ANALYTICS OFFICER - Note Progress Note: Selected Entries 01/21/18 01/21/18 01/21/18 06:00 09:19 10:00 Breakfast 25% Supper Temperature 96.9 F L 97.5 F L 01/21/18 01/21/18 01/21/18 14:49 16:55 21:30 Breakfast Supper 100% Temperature 97.4 F L 97.8 F 01/21/18 01/22/18 01/22/18 22:31 06:00 10:00 Breakfast Supper Temperature 97.8 F 97.4 F L 98.0 F Selected Entries 01/22/18 01/22/18 01/22/18 06:00 10:00 11:14 Breakfast 100% Skin Risk Level Supper Total Score - Skin Risk Assessment Temperature 97.4 F L 98.0 F 01/22/18 01/22/18 01/22/18 12:25 17:00 19:41 Breakfast Skin Risk Level Supper 25% Total Score - Skin Risk Assessment Temperature 98.1 F 98.4 F 01/22/18 01/23/18 01/23/18 21:00 05:36 08:50 Breakfast 75% Skin Risk Level Supper Total Score - Skin Risk Assessment Temperature 98.1 F 97.9 F 01/23/18 10:00 Breakfast Skin Risk Level High Risk Supper Total Score - 12 Skin Risk Assessment Temperature 98.3 F Laboratory Tests 01/23/18 06:00 WBC 9.3 Improving. Lethargiuc but arousable. To continue on puree/thin . Please provide/encourage supplements. RD consult.
--- NOTE | 2018-01-23 13:05 | PN ---
Progress Note (short form) - Note Progress Note: much more alert son at bedside Vital Signs Period Temp Pulse Resp BP Sys/Franco Pulse Ox Last 24 Hr 97.9 F-98.4 F 73-97 18-20 103-154/55-88 94-100 cor-rrr lungs clear abd soft,nincision no drainage, no erythema hanny with minimal cloudy drainage ext no edema CBC, BMP 01/23/18 06:00 01/23/18 06:00 Microbiology 01/18/18 12:52 Abscess AFB Smear Concentration - Final 01/18/18 12:52 Abscess Mycobacterial Culture - Preliminary 01/18/18 12:52 Abscess ADOLFO Preparation - Preliminary 01/18/18 12:52 Abscess Fungal Culture - Preliminary 01/17/18 11:40 Wound-Other Gram Stain - Final 01/17/18 11:40 Wound-Other Wound Culture - Final Escherichia Coli Proteus Mirabilis 01/18/18 12:52 Abscess Gram Stain - Final 01/18/18 12:52 Abscess Body Fluid Culture - Final Escherichia Coli Esbl Production Posting Clerk 01/18/18 12:52 Abscess Anaerobic Culture - Final 01/15/18 16:52 Blood - Peripheral Venous Blood Culture - Final NO GROWTH AFTER 5 DAYS INCUBATION 01/15/18 16:52 Blood - Peripheral Venous Blood Culture - Final NO GROWTH AFTER 5 DAYS INCUBATION 01/15/18 16:25 Abdomen Gram Stain - Final 01/15/18 16:25 Abdomen Wound Culture - Final Escherichia Coli Esbl Production Posting Clerk Escherichia Coli Esbl Production Posting Clerk#2 Proteus Mirabilis 01/15/18 16:25 Urine - Urine German Urine Culture - Final Escherichia Coli Esbl Production Posting Clerk d/w son at bedside a/p s/p IR drainage of infected hematoma-ecolli esbl sensitive to ertapenem-day #[address] scan this week suspect she will need antibiotics for about a week after drain is pulled no po options history cdiff- continue po vancomycin- keep qid while on BS antibiotics and then slow taper 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 difficile colitis Code(s): A04.72 - ENTEROCOLITIS D/T CLOSTRIDIUM DIFFICILE, NOT SPCF RECUR (3) Altered mental status Code(s): R41.82 - ALTERED MENTAL STATUS, UNSPECIFIED (4) ESRD (end stage renal disease) on dialysis Code(s): N18.6 - END STAGE RENAL DISEASE; Z99.2 - DEPENDENCE ON RENAL DIALYSIS
--- NOTE | 2018-01-23 13:15 | PN ---
Physical Exam: SUBJECTIVE: Patient seen and examined at bedside this morning. No acute events overnight. Patient is resting comfortably and alert. OBJECTIVE: Vital Signs Period Temp Pulse Resp BP Sys/Franco Pulse Ox Last 24 Hr 97.9 F-98.4 F 73-97 18-20 103-154/55-88 94-100 GENERAL: Lying in bed, in no acute distress. LUNGS: Breath sounds clear to auscultation bilaterally. HEART: Regular rate and rhythm, S1, S2 without murmur, rub or gallop. ABDOMEN: Soft, nontender, nondistended, normoactive bowel sounds, +open wound with yellowish discharge, no swelling or erythema. BIJU drain in place draining serosanguinous fluid. EXTREMITIES: palpable DP pulses bilaterally, warm, well-perfused, no edema. SKIN: Warm, dry, normal turgor Laboratory Results - last 24 hr 01/22/18 01/23/18 01/23/18 12:30 06:00 06:00 WBC 9.3 RBC 3.04 L Hgb 9.2 L Hct 29.2 L MCV 96.2 H MCH 30.3 MCHC 31.5 L RDW 17.2 H Plt Count 242 MPV 8.7 Sodium 137 145 Potassium 4.3 3.9 Chloride 109 H 106 Carbon Dioxide 28 35 H Anion Gap 0 L 4 L BUN 30 H 18 Creatinine 4.4 H 2.7 H Creat Clearance w eGFR 9.70 17.04 POC Glucometer Random Glucose 122 H 92 Calcium 8.9 9.1 Phosphorus 3.4 Magnesium 2.0 Total Bilirubin 0.5 AST 13 L ALT 13 Alkaline Phosphatase 136 H Total Protein 6.4 Albumin 1.8 L 01/23/18 12:07 WBC RBC Hgb Hct MCV MCH MCHC RDW Plt Count MPV Sodium Potassium Chloride Carbon Dioxide Anion Gap BUN Creatinine Creat Clearance w eGFR POC Glucometer 150 Random Glucose Calcium Phosphorus Magnesium Total Bilirubin AST ALT Alkaline Phosphatase Total Protein Albumin Active Medications Generic Name Dose Route Start Last Admin Trade Name Freq PRN Reason Stop Dose Admin Acetaminophen 650 mg 01/18/18 17:48 01/23/18 05:26 Tylenol - PO 650 mg Q6H PRN Administration Fever Albumin Human 12.5 gm 01/24/18 10:30 Albumin Human 25% IVPB Q30M [facility] Apixaban 2.5 mg 01/21/18 22:00 01/23/18 09:09 Eliquis - PO 2.5 mg BID [facility] Administration Artificial Tears 1 drop 01/17/18 10:00 Artificial Tears OU DAILY PRN DRY EYES Epoetin Abe 6,000 unit 01/24/18 10:21 Epogen - IVPUSH 01/24/18 10:22 ONCE ONE Ertapenem 0.5 gm/ Sodium 50 mls @ 100 mls/hr 01/18/18 16:00 01/23/18 10:05 Chloride IVPB 100 mls/hr DAILY [facility] Administration Protocol Sodium Chloride 250 mls @ 3,000 mls/hr 01/23/18 10:21 Normal Saline - IV 01/24/18 10:21 PRN PRN Hypotension during Dialysis Lactobacillus Acidophilus 1 tab 01/23/18 10:00 01/23/18 09:08 Bacid - PO 1 tab DAILY [facility] Administration Lidocaine 1 patch 01/17/18 14:45 01/23/18 10:05 Lidoderm Patch - TP 1 patch DAILY [facility] Administration Metoprolol Tartrate 25 mg 01/20/18 10:00 01/23/18 09:08 Lopressor - PO 25 mg BID [facility] Administration Miscellaneous 1 each 01/17/18 22:00 01/22/18 22:31 Lidoderm Patch Removal MC 1 each DAILY@2200 [facility] Administration Vancomycin HCl 125 mg 01/18/18 18:00 01/23/18 12:24 Vancomycin Oral Solution PO 125 mg Q6HPO [facility] Administration Microbiology 01/18/18 12:52 Abscess AFB Smear Concentration - Preliminary 01/18/18 12:52 Abscess Mycobacterial Culture - Preliminary 01/18/18 12:52 Abscess ADOLFO Preparation - Preliminary 01/18/18 12:52 Abscess Fungal Culture - Preliminary 01/17/18 11:40 Wound-Other Gram Stain - Final 01/17/18 11:40 Wound-Other Wound Culture - Final Escherichia Coli Proteus Mirabilis 01/18/18 12:52 Abscess Gram Stain - Final 01/18/18 12:52 Abscess Body Fluid Culture - Final Escherichia Coli Esbl Risk Compliance Manager 01/18/18 12:52 Abscess Anaerobic Culture - Final 01/15/18 16:52 Blood - Peripheral Venous Blood Culture - Final NO GROWTH AFTER 5 DAYS INCUBATION 01/15/18 16:52 Blood - Peripheral Venous Blood Culture - Final NO GROWTH AFTER [address] abdomen/pelvis with contrast (01/17/2018) - Multiple surgical metallic clips again limiting evaluation of the right hemipelvis soft tissue due to beam hardening artifacts. Interval slight increase in size of previously described collection in the right hemipelvis with thick, irregular and enhancing wall. It is at the expected anatomical location of a resected pelvic kidney as per history. No gross free air or free fluid in the abdomen or pelvis. Multiple cystic densities in the pancreas for which correlation with MRI is needed. Limited visualization of the gallbladder due to motion/breathing artifact with suggestion of a sludge layering posteriorly again seen. Duplex US of RUE - No evidence of deep venous thrombosis. CT abdomen/pelvis with contrast (01/15/2018) - Small to moderate size hiatus hernia. Atelectatic changes with nodular opacities in the left lung base likely representing infiltrates for which a follow-up CT scan of the chest in one to 2 weeks is recommended. Moderate size hiatus hernia. Slightly overdistended gallbladder with suggestion of a sludge layering posteriorly. Dilated common bile duct measuring 1.3 cm multiple cystic densities in the pancreas with correlation with MRI. Bilateral atrophic kidneys. Multiple surgical metallic clips in the right hemipelvis obscuring the soft tissue details. However, there is a focal low-attenuation density in the right hemipelvis measuring 4.5 cm likely representing a collection/abscess at the site of prior right renal transplant that was resected according to the submitted clinical history. Extensive diverticulosis coli mainly in the sigmoid colon without evidence of acute diverticulitis. CXR - [id number] cardiomegaly without evidence of acute lung disease. ASSESSMENT/PLAN: Patient is a 77 year old female, previously admitted at [facility] for 144 days (s/p failed renal transplant, s/p removal), discharged AMA, as per son, brought at the ED for lethargy. #Abdominal wound: s/p IR-guided drainage of serosanguinous fluid -BIJU drain in place, drained 20ml today, flush catheter q8h -(+)yellowish discharge draining from wound -Fluid sent for cultures - +ESBL, +non-lactose fermenting gram negative bacilli -Repeat wound cultures -+E.coli, +Proteus -Surgery (Dr. Kelly) consulted. Recommendations appreciated. -ID (Dr. Shanks) consulted. Recommendations appreciated. -Continue Ertapenem (day 5) -Continue PO Vancomycin for hx of cdiff. Q6h while on Ertapenem and then slow taper -Probiotic therapy. -Contact isolation. -Consider repeat CT scan this week. -Suspect would need antibiotics for about a week after drain is pulled. -No PO options. -Proper wound care. #ESRD: failed renal transplant, s/p removal -Nephrology (Dr. Winters) consulted. Recommendations appreciated. -For hemodialysis tomorrow (TTS) #Altered mental status: patient improving from baseline from when she came here -likely acute metabolic toxic encephalopathy from renal failure and infection. -Speech and swallow evaluation. Recommendations appreciated. -No PO trials could be given. -Dysphagia puree diet/ thin liquids. -Please provide/encourage supplements. -monitor closely #RLE DVT -Duplex US of RUE - No evidence of deep venous thrombosis. -SCDs applied -Eliquis 2.5 mg BID started. -I called the son, Aries, who is the HCP, and informed him that we will start patient on Eliquis. The son understood and agreed with the plan. -Will monitor H/H. -Will continue eliquis as long as patient remains hemodynamically stable. #Atrial fibrillation -Started eliquis 2.5 mg BID -Metoprolol (Lopressor) 25mg BID. #Anemia -likely 2/2 iron deficiency and ESRD -Epogen given. #FEN -Not on any standing fluids. -Electrolytes wnl, routine bmp monitoring -dysphagia puree diet. #Prophylaxis -Eliquis 2.5 mg BID. #Disposition -Declined for transfer by multiple tertiary care centers. -Discussed with son about dispo when patient is medically stable. -Son will bring patient home with him once medically optimized. Visit type - Emergency Visit Emergency Visit: Yes ED Registration Date: 01/16/18 Care time: The patient presented to the Emergency Department on the above date and was hospitalized for further evaluation of their emergent condition. - New Patient This patient is new to me today: Yes Date on this admission: 01/23/18 - Critical Care Critical Care patient: No
[2018-01-23] MEDS: LIDOCAINE PATCH REMOVAL MC SCH (22:18)
[2018-01-24] MEDS: VANCOMYCIN 250 MG/5 ML ORAL SOLUTION PO SCH ×4 (00:27→17:42)
[2018-01-24] MEDS ORDERED: PT OWN MED DRAWER 7, Y5N ONE ×2 (08:35→10:01)
[2018-01-24] MEDS: LACTOBACILLUS ACIDOPHILUS 1 TABLET PO SCH (09:06)
[2018-01-24] MEDS: LIDOCAINE 5% TOPICAL PATCH TP SCH (09:06)
[2018-01-24] MEDS: APIXABAN 2.5 MG TABLET PO SCH ×2 (09:06→22:55)
[2018-01-24] MEDS: METOPROLOL TARTRATE 25 MG TABLET (FP) PO SCH ×2 (09:06→22:54)
[2018-01-24] MEDS ORDERED: EPOETIN ALFA 2,000 UNIT/1 ML VIAL IVPUSH ONE (10:21)
[2018-01-24] MEDS: ERTAPENEM SODIUM 0.5 GM in SODIUM CHLORIDE 50 ML IVPB SCH (10:25)
[2018-01-24] MEDS ORDERED: ALBUMIN HUMAN 25% 12.5 GM/50 ML VIAL IVPB SCH (10:30)
--- NOTE | 2018-01-24 11:20 | PN ---
Progress Note, CREATIVE DESIGNER - Note Progress Note: Maintain head of bed elevated with chin to neutral or flexed during mealtime and for at least an hour after meals. Feed slowly, teaspoon at a time Watch for swallow reflex before next bite/sip is given Inform Nursing if patient coughs, clears throat or sounds wet and gurgly during or after meals.
--- NOTE | 2018-01-24 12:47 | PN ---
Teaching Attending Note Name of Resident: Marisela Simmons ATTENDING PHYSICIAN STATEMENT I saw and evaluated the patient. I reviewed the resident's note and discussed the case with the resident. I agree with the resident's findings and plan as documented. SUBJECTIVE:resting comfortable. denies Cp, SOB, fever, chills, N/V/C/D OBJECTIVE: Last Vital Signs Temp Pulse Resp BP Pulse Ox 98.7 F 77 18 125/57 L 94 L 01/24/18 06:00 01/24/18 06:00 01/24/18 06:00 01/24/18 06:00 01/23/18 21:00 General NAD A&O x1 (self only) CV S1 S2 RRR +murmur Lungs CTA anteriorly Abdomen soft Nt/ND. +abdominal binder +BIJU Drain in RLQ. 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 1. Abdominal wound dehiscence with fluid collection s/ BIJU drain placement 01/18. +ESBL ecoli in wound. BIJU drain with 20cc output. will d/w IR about possible removing drain today. on ertapenem day 7. will need abx for 7 days after drain is removed and repeat imaging to evaluate if resolved.ID on board 2. Failed transplant kidney in 09/2017, s/p removal/off immunosuppressants, on HD. cont HD per normal schedule. renal on board 3. Acute metabolic toxic encephalopathy- likely due to renal failure and infection in setting of gradual decline from recent prolonged hospital stay. informed she is at baseline from her hospital course here. 4. 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 on vanco po, likely will require life long treatment. contact precautions. cont pro-biotic 5. ESBL Ecoli UTI- on ertapenem 6. h/o RLE DVT, repeat duplex neg here 7. Anemia of chronic disease- 1 unit PRBC during this hospital stay. no indication for transfusion. no signs of bleeding 8. h/o AFib with wide complex tachycardia- on metoprolol/eliquis. Hgb remains stable 9. Prolonged QTc- Qtc 496. avoid QT prolonging medication 10. DVT ppx- eliquis 11. spoke with son present at bedside. updated on current plan and need for longterm abx. will speak with brother about dispo
--- NOTE | 2018-01-24 13:16 | PN ---
Progress Note, Physician History of Present Illness: Pt seen and examined at bedside. She is awake and appears comfortable. Family at bedside and care was discussed with them. - Current Medication List Current Medications: Active Medications Acetaminophen (Tylenol -) 650 mg PO Q6H PRN PRN Reason: Fever Last Admin: 01/23/18 05:26 Dose: 650 mg Albumin Human (Albumin Human 25%) 12.5 gm IVPB Q30M [facility] Apixaban (Eliquis -) 2.5 mg PO BID [facility] Last Admin: 01/24/18 09:06 Dose: 2.5 mg Artificial Tears (Artificial Tears) 1 drop OU DAILY PRN PRN Reason: DRY EYES Epoetin Abe (Epogen -) 6,000 unit IVPUSH ONCE ONE Stop: 01/24/18 10:22 Ertapenem 0.5 gm/ Sodium (Chloride) 50 mls @ 100 mls/hr IVPB DAILY [facility]; Protocol Last Admin: 01/24/18 10:25 Dose: 100 mls/hr Sodium Chloride (Normal Saline -) 250 mls @ 3,000 mls/hr IV PRN PRN PRN Reason: Hypotension during Dialysis Stop: 01/24/18 10:21 Lactobacillus Acidophilus (Bacid -) 1 tab PO DAILY [facility] Last Admin: 01/24/18 09:06 Dose: 1 tab Lidocaine (Lidoderm Patch -) 1 patch TP DAILY [facility] Last Admin: 01/24/18 09:06 Dose: 1 patch Metoprolol Tartrate (Lopressor -) 25 mg PO BID [facility] Last Admin: 01/24/18 09:06 Dose: 25 mg Miscellaneous (Lidoderm Patch Removal) 1 each MC DAILY@2200 [facility] Last Admin: 01/23/18 22:18 Dose: 1 each Vancomycin HCl (Vancomycin Oral Solution) 125 mg PO Q6HPO [facility] Last Admin: 01/24/18 12:22 Dose: 125 mg - Objective Vital Signs: Vital Signs Temperature 98.7 F 01/24/18 06:00 Pulse Rate 77 01/24/18 06:00 Respiratory Rate 18 01/24/18 06:00 Blood Pressure 125/57 L 01/24/18 06:00 O2 Sat by Pulse Oximetry (%) 94 L 01/23/18 21:00 Constitutional: Yes: Calm Eyes: Yes: Conjunctiva Clear HENT: Yes: Atraumatic Neck: Yes: Supple Cardiovascular: Yes: S1, S2 Respiratory: Yes: CTA Bilaterally, Wheezes Gastrointestinal: Yes: Soft, Other Genitourinary: Yes: Other (j/p drain in place) Musculoskeletal: Yes: Muscle Weakness Edema: Yes Edema: LLE: Trace, RLE: Trace Neurological: Yes: Confusion, Other (awake) Labs: CBC, BMP 01/23/18 06:00 01/23/18 06:00 INR, PTT INR 1.15 (0.83-1.09) H 01/16/18 08:50 Problem List - Problems (1) ESRD (end stage renal disease) on dialysis Code(s): N18.6 - END STAGE RENAL DISEASE; Z99.2 - DEPENDENCE ON RENAL DIALYSIS Assessment/Plan Current Medications Generic Name Dose Route Start Last Admin Trade Name Freq PRN Reason Stop Dose Admin Acetaminophen 650 mg 01/18/18 17:48 01/23/18 05:26 Tylenol - PO 650 mg Q6H PRN Administration Fever Albumin Human 12.5 gm 01/24/18 10:30 Albumin Human 25% IVPB Q30M [facility] Apixaban 2.5 mg 01/21/18 22:00 01/24/18 09:06 Eliquis - PO 2.5 mg BID [facility] Administration Artificial Tears 1 drop 01/17/18 10:00 Artificial Tears OU DAILY PRN DRY EYES Epoetin Abe 6,000 unit 01/24/18 10:21 Epogen - IVPUSH 01/24/18 10:22 ONCE ONE Ertapenem 0.5 gm/ Sodium 50 mls @ 100 mls/hr 01/18/18 16:00 01/24/18 10:25 Chloride IVPB 100 mls/hr DAILY [facility] Administration Protocol Sodium Chloride 250 mls @ 3,000 mls/hr 01/23/18 10:21 Normal Saline - IV 01/24/18 10:21 PRN PRN Hypotension during Dialysis Lactobacillus Acidophilus 1 tab 01/23/18 10:00 01/24/18 09:06 Bacid - PO 1 tab DAILY [facility] Administration Lidocaine 1 patch 01/17/18 14:45 01/24/18 09:06 Lidoderm Patch - TP 1 patch DAILY [facility] Administration Metoprolol Tartrate 25 mg 01/20/18 10:00 01/24/18 09:06 Lopressor - PO 25 mg BID [facility] Administration Miscellaneous 1 each 01/17/18 22:00 01/23/18 22:18 Lidoderm Patch Removal MC 1 each DAILY@2200 [facility] Administration Vancomycin HCl 125 mg 01/18/18 18:00 01/24/18 12:22 Vancomycin Oral Solution PO 125 mg Q6HPO [facility] Administration Impression 1. ESRD 2. failed kidney transplant 3. hx DM 4. Hx HTN 5. altered mental status 6. post op infection 7. c.diff 8. a-fib Plan - HD today - cont wound care - epogen for anemia - encourage PO intake, continue nepro - abx per primary team - surgery follow up for abscess/wound
[2018-01-24 16:44] LABS: HEMATOCRIT 27.5 % (32.4-45.2); HEMOGLOBIN 8.8 GM/dL (10.7-15.3); MCH 30.9 pg (25.7-33.7); MEAN CELL VOLUME 96.4 fl (80-96); MEAN PLT VOLUME 9.3 fl (7.5-11.1); PLATELET COUNT 247 K/MM3 (134-434); RBC 2.85 M/mm3 (3.60-5.2); RDW 18.5 % (11.6-15.6); WHITE BLOOD COUNT 23.3 K/mm3 (4.0-10.0)
[2018-01-24 17:15] LABS: ANION GAP 5 MMOL/L (8-16); BLOOD UREA NITROGEN 27 mg/dL (7-18); CALCIUM 9.4 mg/dL (8.5-10.1); CHLORIDE 107 mmol/L (98-107); CO2 30 mmol/L (21-32); CREATININE 3.8 mg/dL (0.55-1.3); GLUCOSE,RANDOM 82 mg/dL (74-106); POTASSIUM 4.3 mmol/L (3.5-5.1); SODIUM 142 mmol/L (136-145)
--- NOTE | 2018-01-24 17:31 | PN ---
Physical Exam: SUBJECTIVE: Patient seen and examined at bedside this morning. No acute events overnight. Patient is lying in bed comfortably. OBJECTIVE: Vital Signs Period Temp Pulse Resp BP Sys/Franco Pulse Ox Last 24 Hr 97.1 F-99.5 F 54-78 18-18 125-151/57-83 94-94 GENERAL: Lying in bed, in no acute distress. LUNGS: Breath sounds clear to auscultation bilaterally. HEART: Regular rate and rhythm, S1, S2 without murmur, rub or gallop. ABDOMEN: Soft, nontender, nondistended, normoactive bowel sounds, +open wound with yellowish discharge, no swelling or erythema. BIJU drain in place draining yellowish fluid. EXTREMITIES: palpable DP pulses bilaterally, warm, well-perfused, no edema. SKIN: Warm, dry, normal turgor Laboratory Results - last 24 hr 01/24/18 01/24/18 16:00 16:00 WBC 23.3 H RBC 2.85 L Hgb 8.8 L Hct 27.5 L MCV 96.4 H MCH 30.9 MCHC 32.0 RDW 18.5 H Plt Count 247 MPV 9.3 Sodium 142 Potassium 4.3 Chloride 107 Carbon Dioxide 30 Anion Gap 5 L BUN 27 H Creatinine 3.8 H Creat Clearance w eGFR 11.49 Random Glucose 82 Calcium 9.4 Active Medications Generic Name Dose Route Start Last Admin Trade Name Freq PRN Reason Stop Dose Admin Acetaminophen 650 mg 01/18/18 17:48 01/23/18 05:26 Tylenol - PO 650 mg Q6H PRN Administration Fever Albumin Human 12.5 gm 01/24/18 10:30 Albumin Human 25% IVPB Q30M [facility] Apixaban 2.5 mg 01/21/18 22:00 01/24/18 09:06 Eliquis - PO 2.5 mg BID [facility] Administration Artificial Tears 1 drop 01/17/18 10:00 Artificial Tears OU DAILY PRN DRY EYES Epoetin Abe 6,000 unit 01/24/18 10:21 Epogen - IVPUSH 01/24/18 10:22 ONCE ONE Ertapenem 0.5 gm/ Sodium 50 mls @ 100 mls/hr 01/18/18 16:00 01/24/18 10:25 Chloride IVPB 100 mls/hr DAILY [facility] Administration Protocol Sodium Chloride 250 mls @ 3,000 mls/hr 01/23/18 10:21 Normal Saline - IV 01/24/18 10:21 PRN PRN Hypotension during Dialysis Lactobacillus Acidophilus 1 tab 01/23/18 10:00 01/24/18 09:06 Bacid - PO 1 tab DAILY [facility] Administration Lidocaine 1 patch 01/17/18 14:45 01/24/18 09:06 Lidoderm Patch - TP 1 patch DAILY [facility] Administration Metoprolol Tartrate 25 mg 01/20/18 10:00 01/24/18 09:06 Lopressor - PO 25 mg BID [facility] Administration Miscellaneous 1 each 01/17/18 22:00 01/23/18 22:18 Lidoderm Patch Removal MC 1 each DAILY@2200 [facility] Administration Vancomycin HCl 125 mg 01/18/18 18:00 01/24/18 12:22 Vancomycin Oral Solution PO 125 mg Q6HPO [facility] Administration Microbiology 01/18/18 12:52 Abscess AFB Smear Concentration - Preliminary 01/18/18 12:52 Abscess Mycobacterial Culture - Preliminary 01/18/18 12:52 Abscess ADOLFO Preparation - Preliminary 01/18/18 12:52 Abscess Fungal Culture - Preliminary 01/17/18 11:40 Wound-Other Gram Stain - Final 01/17/18 11:40 Wound-Other Wound Culture - Final Escherichia Coli Proteus Mirabilis 01/18/18 12:52 Abscess Gram Stain - Final 01/18/18 12:52 Abscess Body Fluid Culture - Final Escherichia Coli Esbl Chief Bank Examiner 01/18/18 12:52 Abscess Anaerobic Culture - Final 01/15/18 16:52 Blood - Peripheral Venous Blood Culture - Final NO GROWTH AFTER 5 DAYS INCUBATION 01/15/18 16:52 Blood - Peripheral Venous Blood Culture - Final NO GROWTH AFTER [address] abdomen/pelvis with contrast (01/17/2018) - Multiple surgical metallic clips again limiting evaluation of the right hemipelvis soft tissue due to beam hardening artifacts. Interval slight increase in size of previously described collection in the right hemipelvis with thick, irregular and enhancing wall. It is at the expected anatomical location of a resected pelvic kidney as per history. No gross free air or free fluid in the abdomen or pelvis. Multiple cystic densities in the pancreas for which correlation with MRI is needed. Limited visualization of the gallbladder due to motion/breathing artifact with suggestion of a sludge layering posteriorly again seen. Duplex US of RUE - No evidence of deep venous thrombosis. CT abdomen/pelvis with contrast (01/15/2018) - Small to moderate size hiatus hernia. Atelectatic changes with nodular opacities in the left lung base likely representing infiltrates for which a follow-up CT scan of the chest in one to 2 weeks is recommended. Moderate size hiatus hernia. Slightly overdistended gallbladder with suggestion of a sludge layering posteriorly. Dilated common bile duct measuring 1.3 cm multiple cystic densities in the pancreas with correlation with MRI. Bilateral atrophic kidneys. Multiple surgical metallic clips in the right hemipelvis obscuring the soft tissue details. However, there is a focal low-attenuation density in the right hemipelvis measuring 4.5 cm likely representing a collection/abscess at the site of prior right renal transplant that was resected according to the submitted clinical history. Extensive diverticulosis coli mainly in the sigmoid colon without evidence of acute diverticulitis. CXR - [id number] cardiomegaly without evidence of acute lung disease. ASSESSMENT/PLAN: Patient is a 77 year old female, previously admitted at [facility] for 144 days (s/p failed renal transplant, s/p removal), discharged AMA, as per son, brought at the ED for lethargy. #Abdominal wound: s/p IR-guided drainage of serosanguinous fluid -BIJU drain in place, drained 25ml today, flush catheter q8h -Fluid sent for cultures - +ESBL, +non-lactose fermenting gram negative bacilli -Repeat wound cultures -+E.coli, +Proteus -Surgery (Dr. Kelly) consulted. Recommendations appreciated. -ID (Dr. Shanks) consulted. Recommendations appreciated. -Continue Ertapenem (day 6) -Continue PO Vancomycin for hx of cdiff. Q6h while on Ertapenem and then slow taper -Probiotic therapy. -Contact isolation. -Consider repeat CT scan this week after BIJU removal. -Abscessogram ordered for evaluation of collection prior to BIJU withdrawal. -Would need antibiotics for about a week after drain is pulled. -No PO options. -Proper wound care. #ESRD: failed renal transplant, s/p removal -Nephrology (Dr. Winters) consulted. Recommendations appreciated. -Had HD today. (TTS) #Altered mental status: -likely acute metabolic toxic encephalopathy from renal failure and infection. -Speech and swallow evaluation. Recommendations appreciated: -Maintain head of bed elevated with chin to neutral or flexed during mealtime and for at least an hour after meals. -Feed slowly, 1/2 teaspoon at a time. -Watch for swallow reflex before next bite/sip is given. -Inform Nursing if patient coughs, clears throat or sounds wet and gurgly during or after meals. #RLE DVT -Duplex US of RUE - No evidence of deep venous thrombosis. -SCDs applied -Eliquis 2.5 mg BID started. -I called the sonAries, who is the HCP, and informed him that we will start patient on Eliquis. The son understood and agreed with the plan. -Will monitor H/H. -Will continue eliquis as long as patient remains hemodynamically stable. #Atrial fibrillation -Started eliquis 2.5 mg BID -Metoprolol (Lopressor) 25mg BID. #Anemia -likely 2/2 iron deficiency and ESRD -Epogen given. #FEN -Not on any standing fluids. -Electrolytes wnl, routine bmp monitoring -dysphagia puree diet. #Prophylaxis -Eliquis 2.5 mg BID. #Disposition -Declined for transfer by multiple tertiary care centers. -Son wants to bring patient home once medically optimized. -Tried to reach sonAries, today to explain option for SNF since plan to continue IV antibiotics for 1 week as outpatient. -Called 5 times but did not answer. Did not leave any other number to call. Visit type - Emergency Visit Emergency Visit: Yes ED Registration Date: 01/16/18 Care time: The patient presented to the Emergency Department on the above date and was hospitalized for further evaluation of their emergent condition. - New Patient This patient is new to me today: Yes Date on this admission: 01/24/18 - Critical Care Critical Care patient: No
[2018-01-24] MEDS: LIDOCAINE PATCH REMOVAL MC SCH (22:56)
[2018-01-24] MEDS: ACETAMINOPHEN 325 MG TABLET (FP) PO PRN (23:06)
[2018-01-25] MEDS: VANCOMYCIN 250 MG/5 ML ORAL SOLUTION PO SCH ×4 (00:49→17:44)
[2018-01-25 07:05] LABS: HEMOGLOBIN 9.4 GM/dL (10.7-15.3)
[2018-01-25 07:08] LABS: BASO % 0.4 % (0-2.0); EOS % 1.1 % (0-4.5); HEMATOCRIT 29.6 % (32.4-45.2); LYMPH % 8.4 % (8-40); MCH 30.9 pg (25.7-33.7); MCHC 31.7 g/dl (32.0-36.0); MEAN CELL VOLUME 97.3 fl (80-96); MONO % 4.2 % (3.8-10.2); NEUT % 85.9 % (42.8-82.8); RBC 3.04 M/mm3 (3.60-5.2); RDW 18.3 % (11.6-15.6); WHITE BLOOD COUNT 17.2 K/mm3 (4.0-10.0)
[2018-01-25 07:29] LABS: ALBUMIN 1.7 g/dl (3.4-5.0); ALK PHOS 142 U/L (45-117); ANION GAP 6 MMOL/L (8-16); BILIRUBIN,TOTAL 0.9 mg/dL (0.2-1); BLOOD UREA NITROGEN 33 mg/dL (7-18); CALCIUM 8.9 mg/dL (8.5-10.1); CHLORIDE 107 mmol/L (98-107); CO2 31 mmol/L (21-32); CREATININE 4.4 mg/dL (0.55-1.3); GLUCOSE,RANDOM 74 mg/dL (74-106); MAGNESIUM 2.1 mg/dL (1.8-2.4); PHOSPHOROUS 3.8 mg/dL (2.5-4.9); POTASSIUM 4.4 mmol/L (3.5-5.1); SGOT/AST 16 U/L (15-37); SGPT/ALT 8 U/L (13-61); SODIUM 144 mmol/L (136-145); TOT PROT 6.6 g/dl (6.4-8.2)
[2018-01-25] MEDS: ERTAPENEM SODIUM 0.5 GM in SODIUM CHLORIDE 50 ML IVPB SCH (09:35)
[2018-01-25] MEDS: METOPROLOL TARTRATE 25 MG TABLET (FP) PO SCH ×2 (09:43→21:09)
[2018-01-25] MEDS: LACTOBACILLUS ACIDOPHILUS 1 TABLET PO SCH (09:43)
[2018-01-25] MEDS: LIDOCAINE 5% TOPICAL PATCH TP SCH (09:44)
[2018-01-25] MEDS: APIXABAN 2.5 MG TABLET PO SCH ×2 (09:44→21:09)
--- NOTE | 2018-01-25 11:37 | PN ---
Progress Note (short form) - Note Progress Note: for tube check today now with elevated WBC for abscess tube check today nurse reports no diarrhea Vital Signs Period Temp Pulse Resp BP Sys/Franco Pulse Ox Last 24 Hr 97.4 F-99.5 F 72-74 18-18 137-156/65-92 94-94 cor-rrr lungs clear abd soft,nt ext no edema minimal drainage in BIJU drain CBC, BMP 01/25/18 06:00 01/25/18 06:00 Microbiology 01/18/18 12:52 Abscess AFB Smear Concentration - Final 01/18/18 12:52 Abscess Mycobacterial Culture - Preliminary 01/18/18 12:52 Abscess ADOLFO Preparation - Preliminary 01/18/18 12:52 Abscess Fungal Culture - Preliminary 01/17/18 11:40 Wound-Other Gram Stain - Final 01/17/18 11:40 Wound-Other Wound Culture - Final Escherichia Coli Proteus Mirabilis 01/18/18 12:52 Abscess Gram Stain - Final 01/18/18 12:52 Abscess Body Fluid Culture - Final Escherichia Coli Esbl Toaster Operator 01/18/18 12:52 Abscess Anaerobic Culture - Final 01/15/18 16:52 Blood - Peripheral Venous Blood Culture - Final NO GROWTH AFTER 5 DAYS INCUBATION 01/15/18 16:52 Blood - Peripheral Venous Blood Culture - Final NO GROWTH AFTER 5 DAYS INCUBATION 01/15/18 16:25 Abdomen Gram Stain - Final 01/15/18 16:25 Abdomen Wound Culture - Final Escherichia Coli Esbl Toaster Operator Escherichia Coli Esbl Toaster Operator#2 Proteus Mirabilis 01/15/18 16:25 Urine - Urine German Urine Culture - Final Escherichia Coli Esbl Toaster Operator Current Medications Acetaminophen (Tylenol -) 650 mg PO Q6H PRN PRN Reason: Fever Last Admin: 01/24/18 23:06 Dose: 650 mg Albumin Human (Albumin Human 25%) 12.5 gm IVPB Q30M [facility] Apixaban (Eliquis -) 2.5 mg PO BID [facility] Last Admin: 01/25/18 09:44 Dose: 2.5 mg Artificial Tears (Artificial Tears) 1 drop OU DAILY PRN PRN Reason: DRY EYES Epoetin Abe (Epogen -) 6,000 unit IVPUSH ONCE ONE Stop: 01/24/18 10:22 Ertapenem 0.5 gm/ Sodium (Chloride) 50 mls @ 100 mls/hr IVPB DAILY REPLACED BY [facility]; Protocol Last Admin: 01/24/18 10:25 Dose: 100 mls/hr Sodium Chloride (Normal Saline -) 250 mls @ 3,000 mls/hr IV PRN PRN PRN Reason: Hypotension during Dialysis Stop: 01/24/18 10:21 Lactobacillus Acidophilus (Bacid -) 1 tab PO DAILY REPLACED BY [facility] Last Admin: 01/25/18 09:43 Dose: 1 tab Lidocaine (Lidoderm Patch -) 1 patch TP DAILY REPLACED BY [facility] Last Admin: 01/25/18 09:44 Dose: 1 patch Metoprolol Tartrate (Lopressor -) 25 mg PO BID REPLACED BY [facility] Last Admin: 01/25/18 09:43 Dose: 25 mg Miscellaneous (Lidoderm Patch Removal) 1 each MC DAILY@2200 REPLACED BY [facility] Last Admin: 01/24/18 22:56 Dose: Not Given Vancomycin HCl (Vancomycin Oral Solution) 125 mg PO Q6HPO REPLACED BY [facility] Last Admin: 01/25/18 06:23 Dose: 125 mg a/p new leukocytosis s/p IR drainage of infected hematoma-ecolli esbl sensitive to ertapenem-day #7 d/w Dr Cuevas- for tube check today ct abdp/pelvis in am if needed repeat blood cultures with HD in am continue ertapenem for now history cdiff- continue po vancomycin- keep qid while on BS antibiotics and then slow taper no diarrhea per rn 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 difficile colitis Code(s): A04.72 - ENTEROCOLITIS D/T CLOSTRIDIUM DIFFICILE, NOT SPCF RECUR (3) Altered mental status Code(s): R41.82 - ALTERED MENTAL STATUS, UNSPECIFIED (4) ESRD (end stage renal disease) on dialysis Code(s): N18.6 - END STAGE RENAL DISEASE; Z99.2 - DEPENDENCE ON RENAL DIALYSIS
--- NOTE | 2018-01-25 11:45 | PN ---
Teaching Attending Note Name of Resident: Marisela Simmons ATTENDING PHYSICIAN STATEMENT I saw and evaluated the patient. I reviewed the resident's note and discussed the case with the resident. I agree with the resident's findings and plan as documented. SUBJECTIVE:resting comfortable. denies CP, SOB, fever, chills, N/V/C/D OBJECTIVE: Last Vital Signs Temp Pulse Resp BP Pulse Ox 97.4 F L 73 18 137/92 94 L 01/25/18 06:00 01/25/18 06:00 01/25/18 10:00 01/25/18 06:00 01/25/18 10:00 General NAD A&O x1 (self only) CV S1 S2 RRR +murmur Lungs CTA anteriorly Abdomen soft Nt/ND. +abdominal binder +BIJU Drain in RLQ. 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 1. Abdominal wound dehiscence with fluid collection s/ BIJU drain placement 01/18. +ESBL ecoli in wound. BIJU drain with 10cc output. leukocytosis trended up yesterday. will obtain abscessogram to evaluate if drain needs to be re- positioned. if nothing is seen with need to obtain CT abdomen/pelvis with contrast tomorrow prior to HD to further evaluate. on ertapenem day 8. will need abx for 7 days after drain is removed and repeat imaging to evaluate if resolved. ID on board 2. Failed transplant kidney in 09/2017, s/p removal/off immunosuppressants, on HD. cont HD per normal schedule. renal on board 3. Acute metabolic toxic encephalopathy- likely due to renal failure and infection in setting of gradual decline from recent prolonged hospital stay. informed she is at baseline from her hospital course here. 4. 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 on vanco po, cont QID dosing while on IV abx. contact precautions. cont pro-biotic 5. ESBL Ecoli UTI- on ertapenem 6. h/o RLE DVT, repeat duplex neg here 7. Anemia of chronic disease- 1 unit PRBC during this hospital stay. no indication for transfusion. no signs of bleeding 8. h/o AFib with wide complex tachycardia- on metoprolol/eliquis. Hgb remains stable 9. Prolonged QTc- Qtc 496. avoid QT prolonging medication 10. DVT ppx- eliquis 11. Family is still deciding on SNF vs home with home infusions.
--- NOTE | 2018-01-25 14:39 | PN ---
Physical Exam: SUBJECTIVE: Patient seen and examined at bedside this morning. Resting comfortably. No acute events overnight. 10cc BIJU drain overnight. OBJECTIVE: Vital Signs Period Temp Pulse Resp BP Sys/Franco Pulse Ox Last 24 Hr 97.4 F-99.5 F 72-74 18-18 137-156/65-92 94-94 GENERAL: Lying in bed, in no acute distress. LUNGS: Breath sounds clear to auscultation bilaterally. HEART: Regular rate and rhythm, S1, S2 without murmur, rub or gallop. ABDOMEN: Soft, nontender, nondistended, normoactive bowel sounds, +open wound with yellowish discharge, no swelling or erythema. BIJU drain in place draining yellowish fluid. EXTREMITIES: palpable DP pulses bilaterally, warm, well-perfused, no edema. SKIN: Warm, dry, normal turgor Laboratory Results - last 24 hr 01/24/18 01/24/18 01/25/18 16:00 16:00 06:00 WBC 23.3 H 17.2 H RBC 2.85 L 3.04 L Hgb 8.8 L 9.4 L Hct 27.5 L 29.6 L MCV 96.4 H 97.3 H MCH 30.9 30.9 MCHC 32.0 31.7 L RDW 18.5 H 18.3 H Plt Count 247 No Result Required. MPV 9.3 Compliance Intern Absolute Neuts (auto) 14.8 H Neutrophils % 85.9 H Lymphocytes % 8.4 D Monocytes % 4.2 Eosinophils % 1.1 Basophils % 0.4 Nucleated RBC % 0 Platelet Comment Slt plt clumping Sodium 142 Potassium 4.3 Chloride 107 Carbon Dioxide 30 Anion Gap 5 L BUN 27 H Creatinine 3.8 H Creat Clearance w eGFR 11.49 Random Glucose 82 Calcium 9.4 Phosphorus Magnesium Total Bilirubin AST ALT Alkaline Phosphatase Total Protein Albumin 01/25/18 06:00 WBC RBC Hgb Hct MCV MCH MCHC RDW Plt Count MPV Absolute Neuts (auto) Neutrophils % Lymphocytes % Monocytes % Eosinophils % Basophils % Nucleated RBC % Platelet Comment Sodium 144 Potassium 4.4 Chloride 107 Carbon Dioxide 31 Anion Gap 6 L BUN 33 H Creatinine 4.4 H Creat Clearance w eGFR 9.70 Random Glucose 74 Calcium 8.9 Phosphorus 3.8 Magnesium 2.1 Total Bilirubin 0.9 AST 16 ALT 8 L Alkaline Phosphatase 142 H Total Protein 6.6 Albumin 1.7 L Active Medications Generic Name Dose Route Start Last Admin Trade Name Freq PRN Reason Stop Dose Admin Acetaminophen 650 mg 01/18/18 17:48 01/24/18 23:06 Tylenol - PO 650 mg Q6H PRN Administration Fever Albumin Human 12.5 gm 01/24/18 10:30 Albumin Human 25% IVPB Q30M [facility] Apixaban 2.5 mg 01/21/18 22:00 01/25/18 09:44 Eliquis - PO 2.5 mg BID [facility] Administration Artificial Tears 1 drop 01/17/18 10:00 Artificial Tears OU DAILY PRN DRY EYES Epoetin Abe 6,000 unit 01/24/18 10:21 Epogen - IVPUSH 01/24/18 10:22 ONCE ONE Ertapenem 0.5 gm/ Sodium 50 mls @ 100 mls/hr 01/18/18 16:00 01/25/18 09:35 Chloride IVPB 100 mls/hr DAILY [facility] Administration Protocol Sodium Chloride 250 mls @ 3,000 mls/hr 01/23/18 10:21 Normal Saline - IV 01/24/18 10:21 PRN PRN Hypotension during Dialysis Lactobacillus Acidophilus 1 tab 01/23/18 10:00 01/25/18 09:43 Bacid - PO 1 tab DAILY [facility] Administration Lidocaine 1 patch 01/17/18 14:45 01/25/18 09:44 Lidoderm Patch - TP 1 patch DAILY [facility] Administration Metoprolol Tartrate 25 mg 01/20/18 10:00 01/25/18 09:43 Lopressor - PO 25 mg BID [facility] Administration Miscellaneous 1 each 01/17/18 22:00 01/24/18 22:56 Lidoderm Patch Removal MC Not Given DAILY@2200 [facility] Vancomycin HCl 125 mg 01/18/18 18:00 01/25/18 13:00 Vancomycin Oral Solution PO 125 mg Q6HPO [facility] Administration Microbiology 01/18/18 12:52 Abscess AFB Smear Concentration - Preliminary 01/18/18 12:52 Abscess Mycobacterial Culture - Preliminary 01/18/18 12:52 Abscess ADOLFO Preparation - Preliminary 01/18/18 12:52 Abscess Fungal Culture - Preliminary 01/17/18 11:40 Wound-Other Gram Stain - Final 01/17/18 11:40 Wound-Other Wound Culture - Final Escherichia Coli Proteus Mirabilis 01/18/18 12:52 Abscess Gram Stain - Final 01/18/18 12:52 Abscess Body Fluid Culture - Final Escherichia Coli Esbl Microbiology Teacher 01/18/18 12:52 Abscess Anaerobic Culture - Final 01/15/18 16:52 Blood - Peripheral Venous Blood Culture - Final NO GROWTH AFTER 5 DAYS INCUBATION 01/15/18 16:52 Blood - Peripheral Venous Blood Culture - Final NO GROWTH AFTER [address] abdomen/pelvis with contrast (01/17/2018) - Multiple surgical metallic clips again limiting evaluation of the right hemipelvis soft tissue due to beam hardening artifacts. Interval slight increase in size of previously described collection in the right hemipelvis with thick, irregular and enhancing wall. It is at the expected anatomical location of a resected pelvic kidney as per history. No gross free air or free fluid in the abdomen or pelvis. Multiple cystic densities in the pancreas for which correlation with MRI is needed. Limited visualization of the gallbladder due to motion/breathing artifact with suggestion of a sludge layering posteriorly again seen. Duplex US of RUE - No evidence of deep venous thrombosis. CT abdomen/pelvis with contrast (01/15/2018) - Small to moderate size hiatus hernia. Atelectatic changes with nodular opacities in the left lung base likely representing infiltrates for which a follow-up CT scan of the chest in one to 2 weeks is recommended. Moderate size hiatus hernia. Slightly overdistended gallbladder with suggestion of a sludge layering posteriorly. Dilated common bile duct measuring 1.3 cm multiple cystic densities in the pancreas with correlation with MRI. Bilateral atrophic kidneys. Multiple surgical metallic clips in the right hemipelvis obscuring the soft tissue details. However, there is a focal low-attenuation density in the right hemipelvis measuring 4.5 cm likely representing a collection/abscess at the site of prior right renal transplant that was resected according to the submitted clinical history. Extensive diverticulosis coli mainly in the sigmoid colon without evidence of acute diverticulitis. CXR - [id number] cardiomegaly without evidence of acute lung disease. ASSESSMENT/PLAN: Patient is a 77 year old female, previously admitted at [facility] for 144 days (s/p failed renal transplant, s/p removal), discharged AMA, as per son, brought at the ED for lethargy. #Abdominal wound: s/p IR-guided drainage of serosanguinous fluid -BIJU drain in place, drained 10ml today, flush catheter q8h -Fluid sent for cultures - +ESBL, +non-lactose fermenting gram negative bacilli -Repeat wound cultures -+E.coli, +Proteus -Abscessogram done today to assess if BIJU drain can be removed. -Surgery (Dr. Kelly) consulted. Recommendations appreciated. -ID (Dr. Shanks) consulted. Recommendations appreciated. -Continue Ertapenem (day 7) -Continue PO Vancomycin for hx of cdiff. Q6h while on Ertapenem and then slow taper -Probiotic therapy. -Contact isolation. -Consider repeat CT scan after BIJU removal. -Would need antibiotics for about a week after drain is pulled. -No PO options. -Proper wound care. #ESRD: failed renal transplant, s/p removal -Hemodialysis (TTS) -Nephrology (Dr. Winters) consulted. Recommendations appreciated. - pt could not complete HD yesterday as she appeared to be recirculating - called vascular surgery to evaluate the fistula - will likely dialyze in am - surgery follow up for abscess/wound -Vascular surgery (Dr. Neri) consulted. Recommendations appreciated. - Left femoral shiley placed. - Guidewire removed. - All ports flushed - consent obtained from son - Can use for HD #Altered mental status: -likely acute metabolic toxic encephalopathy from renal failure and infection. -Speech and swallow evaluation. Recommendations appreciated: -Maintain head of bed elevated with chin to neutral or flexed during mealtime and for at least an hour after meals. -Feed slowly, 1/2 teaspoon at a time. -Watch for swallow reflex before next bite/sip is given. -Inform Nursing if patient coughs, clears throat or sounds wet and gurgly during or after meals. #RLE DVT -Duplex US of RUE - No evidence of deep venous thrombosis. -SCDs applied -Eliquis 2.5 mg BID started. -I called the son, Aries, who is the HCP, and informed him that we will start patient on Eliquis. The son understood and agreed with the plan. -Will monitor H/H. -Will continue eliquis as long as patient remains hemodynamically stable. #Atrial fibrillation -Eliquis 2.5 mg BID -Metoprolol (Lopressor) 25mg BID. #Anemia -likely 2/2 iron deficiency and ESRD -Epogen given. #FEN -Not on any standing fluids. -Electrolytes wnl, routine bmp monitoring -dysphagia puree diet. #Prophylaxis -Eliquis 2.5 mg BID. #Disposition -Declined for transfer by multiple tertiary care centers. -Son wants to bring patient home once medically optimized. -Called HCP Aries to get telephone consent for abscessogram. SNF placement on discharge also brought up, explained to him that patient will need IV antibiotics that's why a long term is recommended. The son understood and said he will think about it. Will follow-up again tomorrow. Visit type - Emergency Visit Emergency Visit: Yes ED Registration Date: 01/16/18 Care time: The patient presented to the Emergency Department on the above date and was hospitalized for further evaluation of their emergent condition. - New Patient This patient is new to me today: Yes Date on this admission: 01/26/18 - Critical Care Critical Care patient: No
--- NOTE | 2018-01-25 16:23 | PN ---
Progress Note, Physician History of Present Illness: Pt seen and examined at bedside. She is awake and appears comfortable. She was not able to get HD yesterday. - Current Medication List Current Medications: Active Medications Acetaminophen (Tylenol -) 650 mg PO Q6H PRN PRN Reason: Fever Last Admin: 01/24/18 23:06 Dose: 650 mg Albumin Human (Albumin Human 25%) 12.5 gm IVPB Q30M [facility] Apixaban (Eliquis -) 2.5 mg PO BID [facility] Last Admin: 01/25/18 09:44 Dose: 2.5 mg Artificial Tears (Artificial Tears) 1 drop OU DAILY PRN PRN Reason: DRY EYES Epoetin Abe (Epogen -) 6,000 unit IVPUSH ONCE ONE Stop: 01/24/18 10:22 Ertapenem 0.5 gm/ Sodium (Chloride) 50 mls @ 100 mls/hr IVPB DAILY [facility]; Protocol Last Admin: 01/25/18 09:35 Dose: 100 mls/hr Sodium Chloride (Normal Saline -) 250 mls @ 3,000 mls/hr IV PRN PRN PRN Reason: Hypotension during Dialysis Stop: 01/24/18 10:21 Lactobacillus Acidophilus (Bacid -) 1 tab PO DAILY [facility] Last Admin: 01/25/18 09:43 Dose: 1 tab Lidocaine (Lidoderm Patch -) 1 patch TP DAILY [facility] Last Admin: 01/25/18 09:44 Dose: 1 patch Metoprolol Tartrate (Lopressor -) 25 mg PO BID [facility] Last Admin: 01/25/18 09:43 Dose: 25 mg Miscellaneous (Lidoderm Patch Removal) 1 each MC DAILY@2200 [facility] Last Admin: 01/24/18 22:56 Dose: Not Given Vancomycin HCl (Vancomycin Oral Solution) 125 mg PO Q6HPO [facility] Last Admin: 01/25/18 13:00 Dose: 125 mg - Objective Vital Signs: Vital Signs Temperature 98.2 F 01/25/18 14:41 Pulse Rate 75 01/25/18 14:41 Respiratory Rate 18 01/25/18 14:41 Blood Pressure 120/68 01/25/18 14:41 O2 Sat by Pulse Oximetry (%) 94 L 01/25/18 10:00 Constitutional: Yes: Calm Eyes: Yes: Conjunctiva Clear HENT: Yes: Atraumatic Neck: Yes: Supple Cardiovascular: Yes: S1, S2 Respiratory: Yes: Rhonchi Gastrointestinal: Yes: Soft, Other (dressing in place) Musculoskeletal: Yes: Muscle Weakness Edema: No Neurological: Yes: Confusion Labs: CBC, BMP 01/25/18 06:00 01/25/18 06:00 INR, PTT INR 1.15 (0.83-1.09) H 01/16/18 08:50 Problem List - Problems (1) ESRD (end stage renal disease) on dialysis Code(s): N18.6 - END STAGE RENAL DISEASE; Z99.2 - DEPENDENCE ON RENAL DIALYSIS Assessment/Plan Current Medications Generic Name Dose Route Start Last Admin Trade Name Freq PRN Reason Stop Dose Admin Acetaminophen 650 mg 01/18/18 17:48 01/24/18 23:06 Tylenol - PO 650 mg Q6H PRN Administration Fever Albumin Human 12.5 gm 01/24/18 10:30 Albumin Human 25% IVPB Q30M [facility] Apixaban 2.5 mg 01/21/18 22:00 01/25/18 09:44 Eliquis - PO 2.5 mg BID [facility] Administration Artificial Tears 1 drop 01/17/18 10:00 Artificial Tears OU DAILY PRN DRY EYES Epoetin Abe 6,000 unit 01/24/18 10:21 Epogen - IVPUSH 01/24/18 10:22 ONCE ONE Ertapenem 0.5 gm/ Sodium 50 mls @ 100 mls/hr 01/18/18 16:00 01/25/18 09:35 Chloride IVPB 100 mls/hr DAILY [facility] Administration Protocol Sodium Chloride 250 mls @ 3,000 mls/hr 01/23/18 10:21 Normal Saline - IV 01/24/18 10:21 PRN PRN Hypotension during Dialysis Lactobacillus Acidophilus 1 tab 01/23/18 10:00 01/25/18 09:43 Bacid - PO 1 tab DAILY [facility] Administration Lidocaine 1 patch 01/17/18 14:45 01/25/18 09:44 Lidoderm Patch - TP 1 patch DAILY [facility] Administration Metoprolol Tartrate 25 mg 01/20/18 10:00 01/25/18 09:43 Lopressor - PO 25 mg BID [facility] Administration Miscellaneous 1 each 01/17/18 22:00 01/24/18 22:56 Lidoderm Patch Removal MC Not Given DAILY@2200 [facility] Vancomycin HCl 125 mg 01/18/18 18:00 01/25/18 13:00 Vancomycin Oral Solution PO 125 mg Q6HPO [facility] Administration Impression 1. ESRD 2. failed kidney transplant 3. hx DM 4. Hx HTN 5. altered mental status 6. post op infection 7. c.diff 8. a-fib Plan - pt could not complete HD yesterday as she appeared to be recirculating - called vascular surgery to evaluate the fistula - will likely dialyze in am - cont wound care - epogen for anemia - encourage PO intake, continue nepro - abx per primary team - surgery follow up for abscess/wound
--- NOTE | 2018-01-25 18:28 | PN ---
Progress Note (short form) - Note Progress Note: Vascular Surgery Left femoral shiley placed. Guidewire removed. All ports flushed consent obtained from son Can use for HD
[2018-01-25] MEDS: ACETAMINOPHEN 325 MG TABLET (FP) PO PRN (21:10)
[2018-01-25] MEDS: LIDOCAINE PATCH REMOVAL MC SCH (21:10)
[2018-01-26] MEDS: VANCOMYCIN 250 MG/5 ML ORAL SOLUTION PO SCH ×4 (00:45→17:06)
[2018-01-26 08:24] LABS: HEMATOCRIT 28.4 % (32.4-45.2); HEMOGLOBIN 9.1 GM/dL (10.7-15.3); MCH 31.1 pg (25.7-33.7); MCHC 31.9 g/dl (32.0-36.0); MEAN CELL VOLUME 97.4 fl (80-96); MEAN PLT VOLUME 9.2 fl (7.5-11.1); PLATELET COUNT 222 K/MM3 (134-434); RBC 2.92 M/mm3 (3.60-5.2); RDW 19.8 % (11.6-15.6); WHITE BLOOD COUNT 7.5 K/mm3 (4.0-10.0)
[2018-01-26 08:38] LABS: ANION GAP 6 MMOL/L (8-16); BLOOD UREA NITROGEN 41 mg/dL (7-18); CALCIUM 9.2 mg/dL (8.5-10.1); CHLORIDE 107 mmol/L (98-107); CO2 33 mmol/L (21-32); CREATININE 4.9 mg/dL (0.55-1.3); GLUCOSE,RANDOM 71 mg/dL (74-106); POTASSIUM 4.3 mmol/L (3.5-5.1); SODIUM 145 mmol/L (136-145)
[2018-01-26] MEDS ORDERED: EPOETIN ALFA 4,000 UNIT, EPOETIN ALFA 3,000 UNIT IVPUSH ONE (09:00)
[2018-01-26] MEDS: ALBUMIN HUMAN 25% 12.5 GM/50 ML VIAL IVPB SCH ×3 (10:00→11:26)
[2018-01-26] MEDS: ERTAPENEM SODIUM 0.5 GM in SODIUM CHLORIDE 50 ML IVPB SCH (11:27)
--- NOTE | 2018-01-26 12:13 | PN ---
Progress Note (short form) - Note Progress Note: BIJU removed yesterday now with femoral dialysis access just completed HD Vital Signs Period Temp Pulse Resp BP Sys/Franco Pulse Ox Last 24 Hr 97.4 F-98.2 F 67-87 17-18 113-165/58-91 94 cor-rrr lungs clear abd soft,nt ext no edema +left femoral catheter CBC, BMP 01/26/18 07:45 01/26/18 07:45 Microbiology 01/18/18 12:52 Abscess AFB Smear Concentration - Final 01/18/18 12:52 Abscess Mycobacterial Culture - Preliminary 01/18/18 12:52 Abscess ADOLFO Preparation - Preliminary 01/18/18 12:52 Abscess Fungal Culture - Preliminary 01/17/18 11:40 Wound-Other Gram Stain - Final 01/17/18 11:40 Wound-Other Wound Culture - Final Escherichia Coli Proteus Mirabilis 01/18/18 12:52 Abscess Gram Stain - Final 01/18/18 12:52 Abscess Body Fluid Culture - Final Escherichia Coli Esbl Partition Assembler 01/18/18 12:52 Abscess Anaerobic Culture - Final 01/15/18 16:52 Blood - Peripheral Venous Blood Culture - Final NO GROWTH AFTER 5 DAYS INCUBATION 01/15/18 16:52 Blood - Peripheral Venous Blood Culture - Final NO GROWTH AFTER 5 DAYS INCUBATION 01/15/18 16:25 Abdomen Gram Stain - Final 01/15/18 16:25 Abdomen Wound Culture - Final Escherichia Coli Esbl Partition Assembler Escherichia Coli Esbl Partition Assembler#2 Proteus Mirabilis 01/15/18 16:25 Urine - Urine German Urine Culture - Final Escherichia Coli Esbl Partition Assembler Current Medications Acetaminophen (Tylenol -) 650 mg PO Q6H PRN PRN Reason: Fever Last Admin: 01/25/18 21:10 Dose: 650 mg Apixaban (Eliquis -) 2.5 mg PO BID [facility] Last Admin: 01/25/18 21:09 Dose: 2.5 mg Artificial Tears (Artificial Tears) 1 drop OU DAILY PRN PRN Reason: DRY EYES Ertapenem 0.5 gm/ Sodium (Chloride) 50 mls @ 100 mls/hr IVPB DAILY [facility]; Protocol Last Admin: 01/26/18 11:27 Dose: 100 mls/hr Sodium Chloride (Normal Saline -) 250 mls @ 3,000 mls/hr IV PRN PRN PRN Reason: Hypotension during Dialysis Stop: 01/26/18 17:43 Lactobacillus Acidophilus (Bacid -) 1 tab PO DAILY REPLACED BY [facility] Last Admin: 01/25/18 09:43 Dose: 1 tab Lidocaine (Lidoderm Patch -) 1 patch TP DAILY REPLACED BY [facility] Last Admin: 01/25/18 09:44 Dose: 1 patch Metoprolol Tartrate (Lopressor -) 25 mg PO BID REPLACED BY [facility] Last Admin: 01/25/18 21:09 Dose: 25 mg Miscellaneous (Lidoderm Patch Removal) 1 each MC DAILY@2200 REPLACED BY [facility] Last Admin: 01/25/18 21:10 Dose: 1 each Vancomycin HCl (Vancomycin Oral Solution) 125 mg PO Q6HPO REPLACED BY [facility] Last Admin: 01/26/18 06:07 Dose: 125 mg a/p new leukocytosis s/p IR drainage of infected hematoma-ecolli esbl sensitive to ertapenem-day #8 leukocytosis resolved continue ertapenem for now- will discuss duration with primary service history cdiff- continue po vancomycin- keep qid while on BS antibiotics and then slow taper no diarrhea per rn 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 difficile colitis Code(s): A04.72 - ENTEROCOLITIS D/T CLOSTRIDIUM DIFFICILE, NOT SPCF RECUR (3) Altered mental status Code(s): R41.82 - ALTERED MENTAL STATUS, UNSPECIFIED (4) ESRD (end stage renal disease) on dialysis Code(s): N18.6 - END STAGE RENAL DISEASE; Z99.2 - DEPENDENCE ON RENAL DIALYSIS
[2018-01-26] MEDS: APIXABAN 2.5 MG TABLET PO SCH ×2 (13:30→22:07)
[2018-01-26] MEDS: METOPROLOL TARTRATE 25 MG TABLET (FP) PO SCH ×2 (13:30→22:07)
[2018-01-26] MEDS: LACTOBACILLUS ACIDOPHILUS 1 TABLET PO SCH (13:31)
[2018-01-26] MEDS: LIDOCAINE 5% TOPICAL PATCH TP SCH (13:31)
--- NOTE | 2018-01-26 15:43 | PN ---
Progress Note, Physician History of Present Illness: Pt seen and examined at bedside. Pt tolerated HD today. Dejon was placed by vascular. - Current Medication List Current Medications: Active Medications Acetaminophen (Tylenol -) 650 mg PO Q6H PRN PRN Reason: Fever Last Admin: 01/25/18 21:10 Dose: 650 mg Apixaban (Eliquis -) 2.5 mg PO BID [facility] Last Admin: 01/26/18 13:30 Dose: 2.5 mg Artificial Tears (Artificial Tears) 1 drop OU DAILY PRN PRN Reason: DRY EYES Last Admin: 01/26/18 13:31 Dose: 1 drop Ertapenem 0.5 gm/ Sodium (Chloride) 50 mls @ 100 mls/hr IVPB DAILY [facility]; Protocol Last Admin: 01/26/18 11:27 Dose: 100 mls/hr Sodium Chloride (Normal Saline -) 250 mls @ 3,000 mls/hr IV PRN PRN PRN Reason: Hypotension during Dialysis Stop: 01/26/18 17:43 Lactobacillus Acidophilus (Bacid -) 1 tab PO DAILY [facility] Last Admin: 01/26/18 13:31 Dose: 1 tab Lidocaine (Lidoderm Patch -) 1 patch TP DAILY [facility] Last Admin: 01/26/18 13:31 Dose: 1 patch Metoprolol Tartrate (Lopressor -) 25 mg PO BID [facility] Last Admin: 01/26/18 13:30 Dose: 25 mg Miscellaneous (Lidoderm Patch Removal) 1 each MC DAILY@2200 [facility] Last Admin: 01/25/18 21:10 Dose: 1 each Vancomycin HCl (Vancomycin Oral Solution) 125 mg PO Q6HPO [facility] Last Admin: 01/26/18 13:31 Dose: 125 mg - Objective Vital Signs: Vital Signs Temperature 98.3 F 01/26/18 14:33 Pulse Rate 67 01/26/18 11:00 Respiratory Rate 18 01/26/18 14:33 Blood Pressure 109/78 01/26/18 14:33 O2 Sat by Pulse Oximetry (%) 94 L 01/26/18 10:00 Constitutional: Yes: Mild Distress Eyes: Yes: Conjunctiva Clear HENT: Yes: Atraumatic Neck: Yes: Supple Cardiovascular: Yes: S1, S2 Respiratory: Yes: CTA Bilaterally Gastrointestinal: Yes: Soft Genitourinary: Yes: Incontinence Musculoskeletal: Yes: Muscle Weakness Edema: No Integumentary: Yes: Pressure Ulcer Neurological: Yes: Confusion Labs: CBC, BMP 01/26/18 07:45 01/26/18 07:45 INR, PTT INR 1.15 (0.83-1.09) H 01/16/18 08:50 Problem List - Problems (1) ESRD (end stage renal disease) on dialysis Code(s): N18.6 - END STAGE RENAL DISEASE; Z99.2 - DEPENDENCE ON RENAL DIALYSIS Assessment/Plan Current Medications Generic Name Dose Route Start Last Admin Trade Name Freq PRN Reason Stop Dose Admin Acetaminophen 650 mg 01/18/18 17:48 01/25/18 21:10 Tylenol - PO 650 mg Q6H PRN Administration Fever Apixaban 2.5 mg 01/21/18 22:00 01/26/18 13:30 Eliquis - PO 2.5 mg BID [facility] Administration Artificial Tears 1 drop 01/17/18 10:00 01/26/18 13:31 Artificial Tears OU 1 drop DAILY PRN Administration DRY EYES Ertapenem 0.5 gm/ Sodium 50 mls @ 100 mls/hr 01/18/18 16:00 01/26/18 11:27 Chloride IVPB 100 mls/hr DAILY [facility] Administration Protocol Sodium Chloride 250 mls @ 3,000 mls/hr 01/26/18 17:42 Normal Saline - IV 01/26/18 17:43 PRN PRN Hypotension during Dialysis Lactobacillus Acidophilus 1 tab 01/23/18 10:00 01/26/18 13:31 Bacid - PO 1 tab DAILY [facility] Administration Lidocaine 1 patch 01/17/18 14:45 01/26/18 13:31 Lidoderm Patch - TP 1 patch DAILY [facility] Administration Metoprolol Tartrate 25 mg 01/20/18 10:00 01/26/18 13:30 Lopressor - PO 25 mg BID [facility] Administration Miscellaneous 1 each 01/17/18 22:00 01/25/18 21:10 Lidoderm Patch Removal MC 1 each DAILY@2200 [facility] Administration Vancomycin HCl 125 mg 01/18/18 18:00 01/26/18 13:31 Vancomycin Oral Solution PO 125 mg Q6HPO [facility] Administration Impression 1. ESRD 2. failed kidney transplant 3. hx DM 4. Hx HTN 5. altered mental status 6. post op infection 7. c.diff 8. a-fib Plan - HD today via shiley cath - vascular follow up for access plan - discussed with family - cont wound care - epogen for anemia - encourage PO intake, continue nepro - abx per primary team - surgery follow up for abscess/wound
--- NOTE | 2018-01-26 17:07 | PN ---
Progress Note (short form) - Note Progress Note: resting comfortable Current Medications Generic Name Dose Route Start Last Admin Trade Name Freq PRN Reason Stop Dose Admin Acetaminophen 650 mg 01/18/18 17:48 01/25/18 21:10 Tylenol - PO 650 mg Q6H PRN Administration Fever Apixaban 2.5 mg 01/21/18 22:00 01/26/18 13:30 Eliquis - PO 2.5 mg BID [facility] Administration Artificial Tears 1 drop 01/17/18 10:00 01/26/18 13:31 Artificial Tears OU 1 drop DAILY PRN Administration DRY EYES Ertapenem 0.5 gm/ Sodium 50 mls @ 100 mls/hr 01/18/18 16:00 01/26/18 11:27 Chloride IVPB 100 mls/hr DAILY [facility] Administration Protocol Sodium Chloride 250 mls @ 3,000 mls/hr 01/26/18 17:42 Normal Saline - IV 01/26/18 17:43 PRN PRN Hypotension during Dialysis Lactobacillus Acidophilus 1 tab 01/23/18 10:00 01/26/18 13:31 Bacid - PO 1 tab DAILY [facility] Administration Lidocaine 1 patch 01/17/18 14:45 01/26/18 13:31 Lidoderm Patch - TP 1 patch DAILY [facility] Administration Metoprolol Tartrate 25 mg 01/20/18 10:00 01/26/18 13:30 Lopressor - PO 25 mg BID [facility] Administration Miscellaneous 1 each 01/17/18 22:00 01/25/18 21:10 Lidoderm Patch Removal MC 1 each DAILY@2200 [facility] Administration Vancomycin HCl 125 mg 01/18/18 18:00 01/26/18 13:31 Vancomycin Oral Solution PO 125 mg Q6HPO [facility] Administration Last Vital Signs Temp Pulse Resp BP Pulse Ox 98.3 F 67 18 109/78 94 L 01/26/18 14:33 01/26/18 11:00 01/26/18 14:33 01/26/18 14:33 01/26/18 10:00 General NAD A&O x1 (self only) CV S1 S2 RRR +murmur Lungs CTA anteriorly Abdomen soft Nt/ND. bandage in RLQ c/d/i Extremities no pedal edema CBCD WBC 7.5 K/mm3 (4.0-10.0) 01/26/18 07:45 RBC 2.92 M/mm3 (3.60-5.2) L 01/26/18 07:45 Hgb 9.1 GM/dL (10.7-15.3) L 01/26/18 07:45 Hct 28.4 % (32.4-45.2) L 01/26/18 07:45 MCV 97.4 fl (80-96) H 01/26/18 07:45 MCHC 31.9 g/dl (32.0-36.0) L 01/26/18 07:45 RDW 19.8 % (11.6-15.6) H 01/26/18 07:45 Plt Count 222 K/MM3 (134-434) 01/26/18 07:45 MPV 9.2 fl (7.5-11.1) 01/26/18 07:45 CMP Sodium 145 mmol/L (136-145) 01/26/18 07:45 Potassium 4.3 mmol/L (3.5-5.1) 01/26/18 07:45 Chloride 107 mmol/L (98-107) 01/26/18 07:45 Carbon Dioxide 33 mmol/L (21-32) H 01/26/18 07:45 Anion Gap 6 MMOL/L (8-16) L 01/26/18 07:45 BUN 41 mg/dL (7-18) H 01/26/18 07:45 Creatinine 4.9 mg/dL (0.55-1.3) H 01/26/18 07:45 Creat Clearance w eGFR 8.57 (>60) 01/26/18 07:45 Calcium 9.2 mg/dL (8.5-10.1) 01/26/18 07:45 Total Bilirubin 0.9 mg/dL (0.2-1) 01/25/18 06:00 AST 16 U/L (15-37) 01/25/18 06:00 ALT 8 U/L (13-61) L 01/25/18 06:00 Alkaline Phosphatase 142 U/L (45-117) H 01/25/18 06:00 Total Protein 6.6 g/dl (6.4-8.2) 01/25/18 06:00 Albumin 1.7 g/dl (3.4-5.0) L 01/25/18 06:00 Microbiology 01/18/18 12:52 Abscess AFB Smear Concentration - Final 01/18/18 12:52 Abscess Mycobacterial Culture - Preliminary 01/18/18 12:52 Abscess ADOLFO Preparation - Preliminary 01/18/18 12:52 Abscess Fungal Culture - Preliminary 01/17/18 11:40 Wound-Other Gram Stain - Final 01/17/18 11:40 Wound-Other Wound Culture - Final Escherichia Coli Proteus Mirabilis 01/18/18 12:52 Abscess Gram Stain - Final 01/18/18 12:52 Abscess Body Fluid Culture - Final Escherichia Coli Esbl Bingo Worker 01/18/18 12:52 Abscess Anaerobic Culture - Final 01/15/18 16:52 Blood - Peripheral Venous Blood Culture - Final NO GROWTH AFTER 5 DAYS INCUBATION 01/15/18 16:52 Blood - Peripheral Venous Blood Culture - Final NO GROWTH AFTER 5 DAYS INCUBATION 01/15/18 16:25 Abdomen Gram Stain - Final 01/15/18 16:25 Abdomen Wound Culture - Final Escherichia Coli Esbl Bingo Worker Escherichia Coli Esbl Bingo Worker#2 Proteus Mirabilis 01/15/18 16:25 Urine - Urine German Urine Culture - Final Escherichia Coli Esbl Bingo Worker ASSESSMENT AND PLAN: 77 yo F with reportedly prolonged stay at [facility] for PNA, cdiff (requiring fecal transplant), 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 1. Abdominal wound dehiscence with fluid collection s/ BIJU drain placement 01/18. +ESBL ecoli in wound. BIJU drain removed yesterday. abscessogram done but not read. leukocytosis resolved with no fevers. will hold on repeat CT scan at this time. Spoke with ID about abx duration and possibly will only require a couple more days of IV abx. on ertapenem day 9. ID on board 2. Failed transplant kidney in 09/2017, s/p removal/off immunosuppressants, on HD. permacath was not working and shiley placed. will need to place permacath prior to leaving. HD today. cont HD per normal schedule. renal on board 3. Acute metabolic toxic encephalopathy- likely due to renal failure and infection in setting of gradual decline from recent prolonged hospital stay. informed she is at baseline from her hospital course here. 4. 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 on vanco po, cont QID dosing while on IV abx. contact precautions. cont pro-biotic 5. ESBL Ecoli UTI- on ertapenem 6. h/o RLE DVT, repeat duplex neg here 7. Anemia of chronic disease- 1 unit PRBC during this hospital stay. no indication for transfusion. no signs of bleeding 8. h/o AFib with wide complex tachycardia- on metoprolol/eliquis. Hgb remains stable 9. Prolonged QTc- Qtc 496. avoid QT prolonging medication 10. DVT ppx- eliquis Visit type - Emergency Visit Emergency Visit: Yes ED Registration Date: 01/16/18 Care time: The patient presented to the Emergency Department on the above date and was hospitalized for further evaluation of their emergent condition. - New Patient This patient is new to me today: No - Critical Care Critical Care patient: No - Discharge Referral Referred to [facility] No
[2018-01-26] MEDS ORDERED: SODIUM CHLORIDE 250 ML IV PRN (17:42)
[2018-01-26] MEDS ORDERED: EPOETIN ALFA 2,000 UNIT/1 ML VIAL IVPUSH ONE (17:42)
[2018-01-26] MEDS: LIDOCAINE PATCH REMOVAL MC SCH (22:07)
[2018-01-26] MEDS: ACETAMINOPHEN 325 MG TABLET (FP) PO PRN (22:09)
[2018-01-27] MEDS: VANCOMYCIN 250 MG/5 ML ORAL SOLUTION PO SCH ×4 (00:15→17:04)
--- NOTE | 2018-01-27 09:46 | PN ---
Teaching Attending Note Name of Resident: Amrik Carreon ATTENDING PHYSICIAN STATEMENT I saw and evaluated the patient. I reviewed the resident's note and discussed the case with the resident. I agree with the resident's findings and plan as documented. SUBJECTIVE:resting comfortable OBJECTIVE: Last Vital Signs Temp Pulse Resp BP Pulse Ox 98 F 68 20 164/85 92 L 01/27/18 06:19 01/27/18 06:19 01/27/18 06:19 01/27/18 06:19 01/26/18 21:00 General NAD Abdomen soft, ND. bandage in RLQ c/d/i ASSESSMENT AND PLAN: 77 yo F with reportedly prolonged stay at [facility] for PNA, cdiff (requiring fecal transplant), 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 1. Abdominal wound dehiscence with fluid collection s/ BIJU drain placement 01/18. +ESBL ecoli in wound. BIJU drain removed. abscessogram done but not read. leukocytosis resolved with no fevers. will hold on repeat CT scan at this time. Spoke with ID about abx duration and possibly will only require a couple more days of IV abx. on ertapenem day 10. ID on board 2. Failed transplant kidney in 09/2017, s/p removal/off immunosuppressants, on HD. permacath was not working and shiley placed. will need to place permacath prior to leaving. HD today. cont HD per normal schedule. renal on board 3. Acute metabolic toxic encephalopathy- likely due to renal failure and infection in setting of gradual decline from recent prolonged hospital stay. informed she is at baseline from her hospital course here. 4. 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 on vanco po, cont QID dosing while on IV abx. contact precautions. cont pro-biotic 5. ESBL Ecoli UTI- on ertapenem 6. h/o RLE DVT, repeat duplex neg here 7. Anemia of chronic disease- 1 unit PRBC during this hospital stay. no indication for transfusion. no signs of bleeding 8. h/o AFib with wide complex tachycardia- on metoprolol/eliquis. Hgb remains stable 9. Prolonged QTc- Qtc 496. avoid QT prolonging medication 10. DVT ppx- eliquis
[2018-01-27 09:56] LABS: BASO % 1.2 % (0-2.0); EOS % 1.1 % (0-4.5); HEMATOCRIT 26.7 % (32.4-45.2); HEMOGLOBIN 8.6 GM/dL (10.7-15.3); LYMPH % 23.7 % (8-40); MCH 31.4 pg (25.7-33.7); MCHC 32.2 g/dl (32.0-36.0); MEAN CELL VOLUME 97.3 fl (80-96); MEAN PLT VOLUME 9.5 fl (7.5-11.1); MONO % 10.3 % (3.8-10.2); NEUT % 63.7 % (42.8-82.8); PLATELET COUNT 196 K/MM3 (134-434); RBC 2.74 M/mm3 (3.60-5.2); RDW 19.1 % (11.6-15.6)
[2018-01-27] MEDS: APIXABAN 2.5 MG TABLET PO SCH ×2 (10:23→22:11)
[2018-01-27] MEDS: LIDOCAINE 5% TOPICAL PATCH TP SCH (10:24)
[2018-01-27] MEDS: METOPROLOL TARTRATE 25 MG TABLET (FP) PO SCH ×2 (10:24→22:11)
[2018-01-27] MEDS: LACTOBACILLUS ACIDOPHILUS 1 TABLET PO SCH (10:24)
[2018-01-27] MEDS: ERTAPENEM SODIUM 0.5 GM in SODIUM CHLORIDE 50 ML IVPB SCH (10:31)
[2018-01-27 11:51] LABS: ANION GAP 6 MMOL/L (8-16); BLOOD UREA NITROGEN 28 mg/dL (7-18); CALCIUM 9.4 mg/dL (8.5-10.1); CHLORIDE 103 mmol/L (98-107); CO2 31 mmol/L (21-32); CREATININE 3.9 mg/dL (0.55-1.3); GLUCOSE,RANDOM 69 mg/dL (74-106); POTASSIUM 4.3 mmol/L (3.5-5.1); SODIUM 141 mmol/L (136-145)
[2018-01-27] MEDS ORDERED: SODIUM CHLORIDE 250 ML IV PRN (12:00)
--- NOTE | 2018-01-27 12:53 | PN ---
Progress Note (short form) - Note Progress Note: BIJU removed Sunday s/p HD yesterday Vital Signs Period Temp Pulse Resp BP Sys/Franco Pulse Ox Last 24 Hr 97.4 F-98.3 F 62-68 18-20 109-164/57-85 92 cor-rrr lungs clear abd soft,nt ext no edema CBC, BMP 01/27/18 09:15 01/27/18 11:05 Microbiology 01/18/18 12:52 Abscess AFB Smear Concentration - Final 01/18/18 12:52 Abscess Mycobacterial Culture - Preliminary 01/18/18 12:52 Abscess ADOLFO Preparation - Preliminary 01/18/18 12:52 Abscess Fungal Culture - Preliminary 01/17/18 11:40 Wound-Other Gram Stain - Final 01/17/18 11:40 Wound-Other Wound Culture - Final Escherichia Coli Proteus Mirabilis 01/18/18 12:52 Abscess Gram Stain - Final 01/18/18 12:52 Abscess Body Fluid Culture - Final Escherichia Coli Esbl Ball Points Inspector 01/18/18 12:52 Abscess Anaerobic Culture - Final 01/15/18 16:52 Blood - Peripheral Venous Blood Culture - Final NO GROWTH AFTER 5 DAYS INCUBATION 01/15/18 16:52 Blood - Peripheral Venous Blood Culture - Final NO GROWTH AFTER 5 DAYS INCUBATION 01/15/18 16:25 Abdomen Gram Stain - Final 01/15/18 16:25 Abdomen Wound Culture - Final Escherichia Coli Esbl Ball Points Inspector Escherichia Coli Esbl Ball Points Inspector#2 Proteus Mirabilis 01/15/18 16:25 Urine - Urine German Urine Culture - Final Escherichia Coli Esbl Ball Points Inspector a/p new leukocytosis s/p IR drainage of infected hematoma-ecolli esbl sensitive to ertapenem-day #9 leukocytosis resolved continue ertapenem for now- will discuss duration with primary service-will d/w IR in am results of abscessogram history cdiff- continue po vancomycin- keep qid while on BS antibiotics and then slow taper no diarrhea per rn 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 difficile colitis Code(s): A04.72 - ENTEROCOLITIS D/T CLOSTRIDIUM DIFFICILE, NOT SPCF RECUR (3) Altered mental status Code(s): R41.82 - ALTERED MENTAL STATUS, UNSPECIFIED (4) ESRD (end stage renal disease) on dialysis Code(s): N18.6 - END STAGE RENAL DISEASE; Z99.2 - DEPENDENCE ON RENAL DIALYSIS
--- NOTE | 2018-01-27 15:24 | PN ---
Physical Exam: SUBJECTIVE: Patient seen and examined at bedside. No current complaints. OBJECTIVE: Vital Signs Period Temp Pulse Resp BP Sys/Franco Pulse Ox Last 24 Hr 97.4 F-98.6 F 62-70 18-20 112-164/57-85 92-92 GENERAL: A&Ox1, mild distress EYES: PERRLA, EOMI ENT: Moist mucus membranes NECK: No JVD LUNGS: CTA, no wheezes HEART: systolic murmur appreciated on exam, no murmurs ABDOMEN: Soft, nontender, BS present, shiley catheter in L groin placed, small healed incisions in place where drainage tube used to be. MUSCULOSKELETAL: No CVA Tenderness EXTREMITIES: 2+ pulses, no edema. Laboratory Results - last 24 hr 01/27/18 01/27/18 01/27/18 09:15 11:05 12:04 WBC 7.0 RBC 2.74 L Hgb 8.6 L Hct 26.7 L MCV 97.3 H MCH 31.4 MCHC 32.2 RDW 19.1 H Plt Count 196 MPV 9.5 Absolute Neuts (auto) 4.5 Neutrophils % 63.7 D Lymphocytes % 23.7 D Monocytes % 10.3 H D Eosinophils % 1.1 Basophils % 1.2 Nucleated RBC % 0 Sodium 141 Potassium 4.3 Chloride 103 Carbon Dioxide 31 Anion Gap 6 L BUN 28 H Creatinine 3.9 H Creat Clearance w eGFR 11.15 POC Glucometer 65 Random Glucose 69 L Calcium 9.4 01/27/18 13:16 WBC RBC Hgb Hct MCV MCH MCHC RDW Plt Count MPV Absolute Neuts (auto) Neutrophils % Lymphocytes % Monocytes % Eosinophils % Basophils % Nucleated RBC % Sodium Potassium Chloride Carbon Dioxide Anion Gap BUN Creatinine Creat Clearance w eGFR POC Glucometer 72 Random Glucose Calcium Active Medications Generic Name Dose Route Start Last Admin Trade Name Freq PRN Reason Stop Dose Admin Acetaminophen 650 mg 01/18/18 17:48 01/26/18 22:09 Tylenol - PO 650 mg Q6H PRN Administration Fever Apixaban 2.5 mg 01/21/18 22:00 01/27/18 10:23 Eliquis - PO 2.5 mg BID [facility] Administration Artificial Tears 1 drop 01/17/18 10:00 01/26/18 13:31 Artificial Tears OU 1 drop DAILY PRN Administration DRY EYES Ertapenem 0.5 gm/ Sodium 50 mls @ 100 mls/hr 01/18/18 16:00 01/27/18 10:31 Chloride IVPB 100 mls/hr DAILY [facility] Administration Protocol Lactobacillus Acidophilus 1 tab 01/23/18 10:00 01/27/18 10:24 Bacid - PO 1 tab DAILY [facility] Administration Lidocaine 1 patch 01/17/18 14:45 01/27/18 10:24 Lidoderm Patch - TP 1 patch DAILY [facility] Administration Metoprolol Tartrate 25 mg 01/20/18 10:00 01/27/18 10:24 Lopressor - PO 25 mg BID [facility] Administration Miscellaneous 1 each 01/17/18 22:00 01/26/18 22:07 Lidoderm Patch Removal MC 1 each DAILY@2200 [facility] Administration Vancomycin HCl 125 mg 01/18/18 18:00 01/27/18 12:32 Vancomycin Oral Solution PO 125 mg Q6HPO [facility] Administration ASSESSMENT/PLAN: Patient is a 77 year old female, previously admitted at [facility] for 144 days (s/p failed renal transplant, s/p removal), discharged AMA, as per son, brought at the ED for lethargy. #Infected Abdominal Hematoma: s/p IR-guided drainage of serosanguinous fluid -BIJU drain removed -Abscessogram done today to assess if BIJU drain can be removed. -Surgery (Dr. Kelly) consulted. Recommendations appreciated. -ID (Dr. Shanks) consulted. Recommendations appreciated. -Continue Ertapenem (day 10) -Continue PO Vancomycin for hx of cdiff. Q6h -Contact isolation. #ESRD: failed renal transplant, s/p removal -Hemodialysis (TTS), had dialysis yesterday, stable -Nephrology (Dr. Winters) consulted. Recommendations appreciated. -Vascular surgery (Dr. Neri) consulted. Recommendations appreciated. -L shiley placed and used for dialysis -will need permacath prior to discharge -epogen for anemia -for dialysis sunday #Altered mental status: likely acute metabolic toxic encephalopathy from renal failure and infection - patient currently at baseline -Maintain head of bed elevated with chin to neutral or flexed during mealtime and for at least an hour after meals. -follow speech reccs #RLE DVT: previous -Duplex US of RUE - No evidence of deep venous thrombosis. -SCDs applied -Eliquis 2.5 mg BID started. #Atrial fibrillation -Eliquis 2.5 mg BID -Metoprolol (Lopressor) 25mg BID. #Anemia -likely 2/2 iron deficiency and ESRD -Epogen given. #FEN -Not on any standing fluids. -Electrolytes wnl, routine bmp monitoring -dysphagia puree diet. #Prophylaxis -Eliquis 2.5 mg BID. #Disposition -continue to monitor on tele Visit type - Emergency Visit Emergency Visit: No - New Patient This patient is new to me today: No - Critical Care Critical Care patient: No
--- NOTE | 2018-01-27 15:43 | PN ---
Progress Note, Physician History of Present Illness: Pt seen and examined at bedside. She is awake however is uncomfortable from ulcer. Her PO intake remains poor. - Current Medication List Current Medications: Active Medications Acetaminophen (Tylenol -) 650 mg PO Q6H PRN PRN Reason: Fever Last Admin: 01/26/18 22:09 Dose: 650 mg Apixaban (Eliquis -) 2.5 mg PO BID [facility] Last Admin: 01/27/18 10:23 Dose: 2.5 mg Artificial Tears (Artificial Tears) 1 drop OU DAILY PRN PRN Reason: DRY EYES Last Admin: 01/26/18 13:31 Dose: 1 drop Ertapenem 0.5 gm/ Sodium (Chloride) 50 mls @ 100 mls/hr IVPB DAILY [facility]; Protocol Last Admin: 01/27/18 10:31 Dose: 100 mls/hr Lactobacillus Acidophilus (Bacid -) 1 tab PO DAILY [facility] Last Admin: 01/27/18 10:24 Dose: 1 tab Lidocaine (Lidoderm Patch -) 1 patch TP DAILY [facility] Last Admin: 01/27/18 10:24 Dose: 1 patch Metoprolol Tartrate (Lopressor -) 25 mg PO BID [facility] Last Admin: 01/27/18 10:24 Dose: 25 mg Miscellaneous (Lidoderm Patch Removal) 1 each MC DAILY@2200 [facility] Last Admin: 01/26/18 22:07 Dose: 1 each Vancomycin HCl (Vancomycin Oral Solution) 125 mg PO Q6HPO [facility] Last Admin: 01/27/18 12:32 Dose: 125 mg - Objective Vital Signs: Vital Signs Temperature 98.6 F 01/27/18 14:11 Pulse Rate 70 01/27/18 14:11 Respiratory Rate 20 01/27/18 14:11 Blood Pressure 145/66 01/27/18 14:11 O2 Sat by Pulse Oximetry (%) 92 L 01/27/18 09:00 Constitutional: Yes: Calm Eyes: Yes: Conjunctiva Clear HENT: Yes: Atraumatic Neck: Yes: Supple Cardiovascular: Yes: S1, S2 Respiratory: Yes: CTA Bilaterally Gastrointestinal: Yes: Soft, Other (dressing in place) Genitourinary: Yes: Incontinence Musculoskeletal: Yes: Muscle Weakness Edema: No Neurological: Yes: Other (awake) Labs: CBC, BMP 01/27/18 09:15 01/27/18 11:05 INR, PTT INR 1.15 (0.83-1.09) H 01/16/18 08:50 Problem List - Problems (1) ESRD (end stage renal disease) on dialysis Code(s): N18.6 - END STAGE RENAL DISEASE; Z99.2 - DEPENDENCE ON RENAL DIALYSIS Assessment/Plan Current Medications Generic Name Dose Route Start Last Admin Trade Name Freq PRN Reason Stop Dose Admin Acetaminophen 650 mg 01/18/18 17:48 01/26/18 22:09 Tylenol - PO 650 mg Q6H PRN Administration Fever Apixaban 2.5 mg 01/21/18 22:00 01/27/18 10:23 Eliquis - PO 2.5 mg BID [facility] Administration Artificial Tears 1 drop 01/17/18 10:00 01/26/18 13:31 Artificial Tears OU 1 drop DAILY PRN Administration DRY EYES Ertapenem 0.5 gm/ Sodium 50 mls @ 100 mls/hr 01/18/18 16:00 01/27/18 10:31 Chloride IVPB 100 mls/hr DAILY [facility] Administration Protocol Lactobacillus Acidophilus 1 tab 01/23/18 10:00 01/27/18 10:24 Bacid - PO 1 tab DAILY [facility] Administration Lidocaine 1 patch 01/17/18 14:45 01/27/18 10:24 Lidoderm Patch - TP 1 patch DAILY [facility] Administration Metoprolol Tartrate 25 mg 01/20/18 10:00 01/27/18 10:24 Lopressor - PO 25 mg BID [facility] Administration Miscellaneous 1 each 01/17/18 22:00 01/26/18 22:07 Lidoderm Patch Removal MC 1 each DAILY@2200 [facility] Administration Vancomycin HCl 125 mg 01/18/18 18:00 01/27/18 12:32 Vancomycin Oral Solution PO 125 mg Q6HPO [facility] Administration Impression 1. ESRD 2. failed kidney transplant 3. hx DM 4. Hx HTN 5. altered mental status 6. post op infection 7. c.diff 8. a-fib Plan - HD tomorrow - remove shiley after HD - vascular follow up for thrombectomy/access placement - discussed with family - cont wound care - epogen for anemia - encourage PO intake, continue nepro - abx per primary team - surgery follow up for abscess/wound
[2018-01-27] MEDS: ACETAMINOPHEN 325 MG TABLET (FP) PO PRN ×2 (17:17→22:11)
[2018-01-27] MEDS: LIDOCAINE PATCH REMOVAL MC SCH (22:12)
[2018-01-28] MEDS: VANCOMYCIN 250 MG/5 ML ORAL SOLUTION PO SCH ×5 (00:11→23:01)
[2018-01-28] MEDS ORDERED: PT OWN MED DRAWER 7, Y5N ONE ×2 (09:41→10:38)
[2018-01-28] MEDS: APIXABAN 2.5 MG TABLET PO SCH ×2 (09:56→22:42)
[2018-01-28] MEDS: LACTOBACILLUS ACIDOPHILUS 1 TABLET PO SCH (09:56)
[2018-01-28] MEDS: LIDOCAINE 5% TOPICAL PATCH TP SCH (09:56)
[2018-01-28] MEDS: METOPROLOL TARTRATE 25 MG TABLET (FP) PO SCH ×2 (10:30→22:42)
--- NOTE | 2018-01-28 12:01 | PN ---
Progress Note (short form) - Note Progress Note: alert, being fed lunch by son both sons at bedside d/w IR- no residual fluid noted, no fustula noted Vital Signs Period Temp Pulse Resp BP Sys/Franco Pulse Ox Last 24 Hr 97.5 F-98.6 F 60-72 18-20 140-189/62-97 92-93 cor-rrr lungs clear abd soft,nt, no drainage from incision site ext no edema CBC, BMP 01/27/18 09:15 01/27/18 11:05 Microbiology 01/18/18 12:52 Abscess AFB Smear Concentration - Final 01/18/18 12:52 Abscess Mycobacterial Culture - Preliminary 01/18/18 12:52 Abscess ADOLFO Preparation - Preliminary 01/18/18 12:52 Abscess Fungal Culture - Preliminary 01/17/18 11:40 Wound-Other Gram Stain - Final 01/17/18 11:40 Wound-Other Wound Culture - Final Escherichia Coli Proteus Mirabilis 01/18/18 12:52 Abscess Gram Stain - Final 01/18/18 12:52 Abscess Body Fluid Culture - Final Escherichia Coli Esbl Banking Supervisor 01/18/18 12:52 Abscess Anaerobic Culture - Final 01/15/18 16:52 Blood - Peripheral Venous Blood Culture - Final NO GROWTH AFTER 5 DAYS INCUBATION 01/15/18 16:52 Blood - Peripheral Venous Blood Culture - Final NO GROWTH AFTER 5 DAYS INCUBATION 01/15/18 16:25 Abdomen Gram Stain - Final 01/15/18 16:25 Abdomen Wound Culture - Final Escherichia Coli Esbl Banking Supervisor Escherichia Coli Esbl Banking Supervisor#2 Proteus Mirabilis 01/15/18 16:25 Urine - Urine German Urine Culture - Final Escherichia Coli Esbl Banking Supervisor a/p s/p drainage of infected fluid collection- ecoli esbl continue ertapenem for now- will discuss duration with primary service day #10 ertapenem history cdiff- continue po vancomycin- keep qid while on BS antibiotics and then slow taper no diarrhea per rn s/p fecal transplant in June 2017 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 difficile colitis Code(s): A04.72 - ENTEROCOLITIS D/T CLOSTRIDIUM DIFFICILE, NOT SPCF RECUR (3) Altered mental status Code(s): R41.82 - ALTERED MENTAL STATUS, UNSPECIFIED (4) ESRD (end stage renal disease) on dialysis Code(s): N18.6 - END STAGE RENAL DISEASE; Z99.2 - DEPENDENCE ON RENAL DIALYSIS
[2018-01-28] MEDS: ERTAPENEM SODIUM 0.5 GM in SODIUM CHLORIDE 50 ML IVPB SCH (12:08)
--- NOTE | 2018-01-28 12:33 | PN ---
Progress Note, Physician History of Present Illness: Pt seen and examined at bedside. She is awake and more interactive today. She still is confused. - Current Medication List Current Medications: Active Medications Acetaminophen (Tylenol -) 650 mg PO Q6H PRN PRN Reason: Fever Last Admin: 01/27/18 22:11 Dose: 650 mg Albumin Human (Albumin Human 25%) 12.5 gm IVPB Q30M [facility] Stop: 01/28/18 13:46 Apixaban (Eliquis -) 2.5 mg PO BID [facility] Last Admin: 01/28/18 09:56 Dose: 2.5 mg Artificial Tears (Artificial Tears) 1 drop OU DAILY PRN PRN Reason: DRY EYES Last Admin: 01/26/18 13:31 Dose: 1 drop Epoetin Abe (Procrit -) 7,000 unit IVPUSH ONCE ONE Stop: 01/28/18 13:01 Ertapenem 0.5 gm/ Sodium (Chloride) 50 mls @ 100 mls/hr IVPB DAILY [facility]; Protocol Last Admin: 01/28/18 12:08 Dose: 100 mls/hr Lactobacillus Acidophilus (Bacid -) 1 tab PO DAILY [facility] Last Admin: 01/28/18 09:56 Dose: 1 tab Lidocaine (Lidoderm Patch -) 1 patch TP DAILY [facility] Last Admin: 01/28/18 09:56 Dose: 1 patch Metoprolol Tartrate (Lopressor -) 25 mg PO BID [facility] Last Admin: 01/28/18 10:30 Dose: 25 mg Miscellaneous (Lidoderm Patch Removal) 1 each MC DAILY@2200 [facility] Last Admin: 01/27/18 22:12 Dose: 1 each Vancomycin HCl (Vancomycin Oral Solution) 125 mg PO Q6HPO [facility] Last Admin: 01/28/18 12:17 Dose: 125 mg - Objective Vital Signs: Vital Signs Temperature 97.6 F 01/28/18 10:00 Pulse Rate 63 01/28/18 10:00 Respiratory Rate 18 01/28/18 10:00 Blood Pressure 173/88 H 01/28/18 10:00 O2 Sat by Pulse Oximetry (%) 93 L 01/28/18 09:00 Constitutional: Yes: Cachectic Eyes: Yes: Conjunctiva Clear Cardiovascular: Yes: S1, S2 Respiratory: Yes: Rhonchi Gastrointestinal: Yes: Soft Genitourinary: Yes: Incontinence Musculoskeletal: Yes: Muscle Weakness Edema: No Neurological: Yes: Confusion Labs: CBC, BMP 01/27/18 09:15 01/27/18 11:05 INR, PTT INR 1.15 (0.83-1.09) H 01/16/18 08:50 Problem List - Problems (1) ESRD (end stage renal disease) on dialysis Code(s): N18.6 - END STAGE RENAL DISEASE; Z99.2 - DEPENDENCE ON RENAL DIALYSIS Assessment/Plan Current Medications Generic Name Dose Route Start Last Admin Trade Name Freq PRN Reason Stop Dose Admin Acetaminophen 650 mg 01/18/18 17:48 01/27/18 22:11 Tylenol - PO 650 mg Q6H PRN Administration Fever Albumin Human 12.5 gm 01/28/18 12:15 Albumin Human 25% IVPB 01/28/18 13:46 Q30M [facility] Apixaban 2.5 mg 01/21/18 22:00 01/28/18 09:56 Eliquis - PO 2.5 mg BID [facility] Administration Artificial Tears 1 drop 01/17/18 10:00 01/26/18 13:31 Artificial Tears OU 1 drop DAILY PRN Administration DRY EYES Epoetin Abe 7,000 unit 01/28/18 13:00 Procrit - IVPUSH 01/28/18 13:01 ONCE ONE Ertapenem 0.5 gm/ Sodium 50 mls @ 100 mls/hr 01/18/18 16:00 01/28/18 12:08 Chloride IVPB 100 mls/hr DAILY [facility] Administration Protocol Lactobacillus Acidophilus 1 tab 01/23/18 10:00 01/28/18 09:56 Bacid - PO 1 tab DAILY [facility] Administration Lidocaine 1 patch 01/17/18 14:45 01/28/18 09:56 Lidoderm Patch - TP 1 patch DAILY [facility] Administration Metoprolol Tartrate 25 mg 01/20/18 10:00 01/28/18 10:30 Lopressor - PO 25 mg BID [facility] Administration Miscellaneous 1 each 01/17/18 22:00 01/27/18 22:12 Lidoderm Patch Removal MC 1 each DAILY@2200 [facility] Administration Vancomycin HCl 125 mg 01/18/18 18:00 01/28/18 12:17 Vancomycin Oral Solution PO 125 mg Q6HPO [facility] Administration Impression 1. ESRD 2. failed kidney transplant 3. hx DM 4. Hx HTN 5. altered mental status 6. post op infection 7. c.diff 8. a-fib 9. failure to thrive 10.malnutrition Plan - HD today - spoke to gracie davalos to be removed after HD - thrombectomy to be done in OR - cont wound care - epogen for anemia - encourage PO intake, continue nepro to help with nutritional status - abx per primary team - surgery follow up for abscess/wound
[2018-01-28] MEDS ORDERED: EPOETIN ALFA 10,000 UNIT/1 ML VIAL IVPUSH ONE (13:00)
[2018-01-28 13:48] LABS: HEMATOCRIT 28.6 % (32.4-45.2); HEMOGLOBIN 9.2 GM/dL (10.7-15.3); MCH 31.4 pg (25.7-33.7); MCHC 32.1 g/dl (32.0-36.0); MEAN CELL VOLUME 97.9 fl (80-96); MEAN PLT VOLUME 9.4 fl (7.5-11.1); PLATELET COUNT 215 K/MM3 (134-434); RBC 2.92 M/mm3 (3.60-5.2); RDW 20.6 % (11.6-15.6)
[2018-01-28 14:13] LABS: ANION GAP 5 MMOL/L (8-16); BLOOD UREA NITROGEN 26 mg/dL (7-18); CALCIUM 8.5 mg/dL (8.5-10.1); CHLORIDE 103 mmol/L (98-107); CO2 32 mmol/L (21-32); CREATININE 3.8 mg/dL (0.55-1.3); GLUCOSE,RANDOM 123 mg/dL (74-106); POTASSIUM 4.1 mmol/L (3.5-5.1); SODIUM 141 mmol/L (136-145)
[2018-01-28] MEDS: ALBUMIN HUMAN 25% 12.5 GM/50 ML VIAL IVPB SCH ×3 (15:05→15:07)
--- NOTE | 2018-01-28 16:15 | PN ---
Progress Note (short form) - Note Progress Note: VAsc[facility] Surgery Will do declot of left avf possible permacath on sun. PA service will remove left femoral shiley after hd today. Simeon Neri DO
--- NOTE | 2018-01-28 16:33 | PN ---
Physical Exam: SUBJECTIVE: Patient seen and examined at bedside this morning. No acute events overnight. Patient is more alert today and resting comfortably. OBJECTIVE: Vital Signs Period Temp Pulse Resp BP Sys/Franco Pulse Ox Last 24 Hr 97.5 F-98.2 F 60-72 16-48 116-189/60-97 92-93 GENERAL: Lying in bed, in no acute distress. LUNGS: Breath sounds clear to auscultation bilaterally. HEART: Regular rate and rhythm, S1, S2 without murmur, rub or gallop. ABDOMEN: Soft, nontender, nondistended, normoactive bowel sounds, +open wound with yellowish discharge, no swelling or erythema. BIJU drain in place draining yellowish fluid. EXTREMITIES: palpable DP pulses bilaterally, warm, well-perfused, no edema. SKIN: Warm, dry, normal turgor Laboratory Results - last 24 hr 01/28/18 01/28/18 12:30 12:30 WBC 5.0 RBC 2.92 L Hgb 9.2 L Hct 28.6 L MCV 97.9 H MCH 31.4 MCHC 32.1 RDW 20.6 H Plt Count 215 MPV 9.4 Sodium 141 Potassium 4.1 Chloride 103 Carbon Dioxide 32 Anion Gap 5 L BUN 26 H Creatinine 3.8 H Creat Clearance w eGFR 11.49 Random Glucose 123 H Calcium 8.5 Active Medications Generic Name Dose Route Start Last Admin Trade Name Freq PRN Reason Stop Dose Admin Acetaminophen 650 mg 01/18/18 17:48 01/27/18 22:11 Tylenol - PO 650 mg Q6H PRN Administration Fever Apixaban 2.5 mg 01/21/18 22:00 01/28/18 09:56 Eliquis - PO 2.5 mg BID [facility] Administration Artificial Tears 1 drop 01/17/18 10:00 01/26/18 13:31 Artificial Tears OU 1 drop DAILY PRN Administration DRY EYES Ertapenem 0.5 gm/ Sodium 50 mls @ 100 mls/hr 01/18/18 16:00 01/28/18 12:08 Chloride IVPB 100 mls/hr DAILY [facility] Administration Protocol Lactobacillus Acidophilus 1 tab 01/23/18 10:00 01/28/18 09:56 Bacid - PO 1 tab DAILY [facility] Administration Lidocaine 1 patch 01/17/18 14:45 01/28/18 09:56 Lidoderm Patch - TP 1 patch DAILY [facility] Administration Metoprolol Tartrate 25 mg 01/20/18 10:00 01/28/18 10:30 Lopressor - PO 25 mg BID [facility] Administration Miscellaneous 1 each 01/17/18 22:00 01/27/18 22:12 Lidoderm Patch Removal MC 1 each DAILY@2200 [facility] Administration Vancomycin HCl 125 mg 01/18/18 18:00 01/28/18 12:17 Vancomycin Oral Solution PO 125 mg Q6HPO [facility] Administration Microbiology 01/18/18 12:52 Abscess AFB Smear Concentration - Preliminary 01/18/18 12:52 Abscess Mycobacterial Culture - Preliminary 01/18/18 12:52 Abscess ADOLFO Preparation - Preliminary 01/18/18 12:52 Abscess Fungal Culture - Preliminary 01/17/18 11:40 Wound-Other Gram Stain - Final 01/17/18 11:40 Wound-Other Wound Culture - Final Escherichia Coli Proteus Mirabilis 01/18/18 12:52 Abscess Gram Stain - Final 01/18/18 12:52 Abscess Body Fluid Culture - Final Escherichia Coli Esbl Polysomnography Technologist 01/18/18 12:52 Abscess Anaerobic Culture - Final 01/15/18 16:52 Blood - Peripheral Venous Blood Culture - Final NO GROWTH AFTER 5 DAYS INCUBATION 01/15/18 16:52 Blood - Peripheral Venous Blood Culture - Final NO GROWTH AFTER [address] abdomen/pelvis with contrast (01/17/2018) - Multiple surgical metallic clips again limiting evaluation of the right hemipelvis soft tissue due to beam hardening artifacts. Interval slight increase in size of previously described collection in the right hemipelvis with thick, irregular and enhancing wall. It is at the expected anatomical location of a resected pelvic kidney as per history. No gross free air or free fluid in the abdomen or pelvis. Multiple cystic densities in the pancreas for which correlation with MRI is needed. Limited visualization of the gallbladder due to motion/breathing artifact with suggestion of a sludge layering posteriorly again seen. Duplex US of RUE - No evidence of deep venous thrombosis. CT abdomen/pelvis with contrast (01/15/2018) - Small to moderate size hiatus hernia. Atelectatic changes with nodular opacities in the left lung base likely representing infiltrates for which a follow-up CT scan of the chest in one to 2 weeks is recommended. Moderate size hiatus hernia. Slightly overdistended gallbladder with suggestion of a sludge layering posteriorly. Dilated common bile duct measuring 1.3 cm multiple cystic densities in the pancreas with correlation with MRI. Bilateral atrophic kidneys. Multiple surgical metallic clips in the right hemipelvis obscuring the soft tissue details. However, there is a focal low-attenuation density in the right hemipelvis measuring 4.5 cm likely representing a collection/abscess at the site of prior right renal transplant that was resected according to the submitted clinical history. Extensive diverticulosis coli mainly in the sigmoid colon without evidence of acute diverticulitis. CXR - [id number] cardiomegaly without evidence of acute lung disease. ASSESSMENT/PLAN: Patient is a 77 year old female, previously admitted at [facility] for 144 days (s/p failed renal transplant, s/p removal), discharged AMA, as per son, brought at the ED for lethargy. #Abdominal wound: s/p IR-guided drainage of serosanguinous fluid -Fluid sent for cultures - +ESBL, +non-lactose fermenting gram negative bacilli -Repeat wound cultures -+E.coli, +Proteus -Surgery (Dr. Kelly) consulted. Recommendations appreciated. -ID (Dr. Shanks) consulted. Recommendations appreciated. -Continue Ertapenem (day 11) -Continue PO Vancomycin for hx of cdiff. Q6h while on Ertapenem and then slow taper -Probiotic therapy. -Contact isolation. -BIJU removed -Will follow up abscessogram results -Decision to continue IV antibiotics pending abscessogram results -Proper wound care. #ESRD: failed renal transplant, s/p removal -Hemodialysis (TTS) -Nephrology (Dr. Winters) consulted. Recommendations appreciated. - HD today - spoke to vascular, shiley to be removed after HD - thrombectomy to be done in OR -Vascular surgery (Dr. Neri) consulted. Recommendations appreciated. - PA service will remove left femoral shiley after HD today. - Will do declot of left avf possible permacath on sun. #Altered mental status: -likely acute metabolic toxic encephalopathy from renal failure and infection. -Speech and swallow evaluation. Recommendations appreciated: -Maintain head of bed elevated with chin to neutral or flexed during mealtime and for at least an hour after meals. -Feed slowly, 1/2 teaspoon at a time. -Watch for swallow reflex before next bite/sip is given. -Inform Nursing if patient coughs, clears throat or sounds wet and gurgly during or after meals. #RLE DVT -Duplex US of RUE - No evidence of deep venous thrombosis. -SCDs applied -Eliquis 2.5 mg BID started. -I called the son, Aries, who is the HCP, and informed him that we will start patient on Eliquis. The son understood and agreed with the plan. -Will monitor H/H. -Will continue eliquis as long as patient remains hemodynamically stable. #Atrial fibrillation -Eliquis 2.5 mg BID -Metoprolol (Lopressor) 25mg BID. #Anemia -likely 2/2 iron deficiency and ESRD -Epogen given. #FEN -Not on any standing fluids. -Electrolytes wnl, routine bmp monitoring -dysphagia puree diet. #Prophylaxis -Eliquis 2.5 mg BID. #Disposition -Declined for transfer by multiple tertiary care centers. -Son wants to bring patient home once medically optimized. - SNF placement on discharge also brought up, explained to him that patient will need IV antibiotics that's why a assisted is recommended. The son understood and said he will think about it. Will follow-up again tomorrow. Visit type - Emergency Visit Emergency Visit: Yes ED Registration Date: 01/16/18 Care time: The patient presented to the Emergency Department on the above date and was hospitalized for further evaluation of their emergent condition. - New Patient This patient is new to me today: Yes Date on this admission: 01/28/18 - Critical Care Critical Care patient: No
--- NOTE | 2018-01-28 17:00 | PN ---
Teaching Attending Note Name of Resident: Marisela Simmons ATTENDING PHYSICIAN STATEMENT I saw and evaluated the patient. I reviewed the resident's note and discussed the case with the resident. I agree with the resident's findings and plan as documented. SUBJECTIVE:resting comfortable OBJECTIVE: Last Vital Signs Temp Pulse Resp BP Pulse Ox 98.1 F 64 48 H 135/88 93 L 01/28/18 15:34 01/28/18 16:12 01/28/18 16:12 01/28/18 16:12 01/28/18 09:00 General NAD Abdomen soft, ND. bandage in RLQ c/d/i ASSESSMENT AND PLAN: 77 yo F with reportedly prolonged stay at [facility] for PNA, cdiff (requiring fecal transplant), 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 1. Abdominal wound dehiscence with fluid collection s/ BIJU drain placement 01/18. +ESBL ecoli in wound. BIJU drain removed. abscessogram done but not read. leukocytosis resolved with no fevers. Spoke with ID about abx duration and possibly will only require a couple more days of IV abx. on ertapenem day 10. ID on board 2. Failed transplant kidney in 09/2017, s/p removal/off immunosuppressants, on HD. permacath was not working and shiley placed. will need to place permacath prior to leaving. HD today. cont HD per normal schedule. renal on board 3. Acute metabolic toxic encephalopathy- likely due to renal failure and infection in setting of gradual decline from recent prolonged hospital stay. informed she is at baseline from her hospital course here. 4. 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 on vanco po, cont QID dosing while on IV abx. contact precautions. cont pro-biotic 5. ESBL Ecoli UTI- on ertapenem 6. h/o RLE DVT, repeat duplex neg here 7. Anemia of chronic disease- 1 unit PRBC during this hospital stay. no indication for transfusion. no signs of bleeding 8. h/o AFib with wide complex tachycardia- on metoprolol/eliquis. Hgb remains stable 9. Prolonged QTc- Qtc 496. avoid QT prolonging medication 10. DVT ppx- eliquis
[2018-01-28] MEDS: LIDOCAINE PATCH REMOVAL MC SCH (22:42)
[2018-01-28] MEDS: ACETAMINOPHEN 325 MG TABLET (FP) PO PRN (22:48)
[2018-01-29] MEDS: VANCOMYCIN 250 MG/5 ML ORAL SOLUTION PO SCH ×4 (05:07→23:21)
--- NOTE | 2018-01-29 08:03 | PROC ---
Procedure Note Procedure: Vascular surgery: Left femoral shiley removed(intact). Pressure held for 10 minutes and pressure dressing applied. The site remained dry/without masses or bleeding. Plan for AVF /permacath tomorrow.
--- NOTE | 2018-01-29 09:06 | SPA.PREOP ---
- PRE-OP NOTE Dx: ESRD. Thrombosed AV fistula Planned Procedure: AV fistula thrombectomy, possible permacath insertion Surgeon: Simeon Neri Consent: To be obtained by surgeon after risks, benefits and alternatives explained to patient. Last Vital Signs Temp Pulse Resp BP Pulse Ox 98.3 F 62 18 140/78 94 L 01/29/18 06:00 01/29/18 06:00 01/29/18 06:00 01/29/18 06:00 01/28/18 21:00 Lab Results WBC 5.0 K/mm3 (4.0-10.0) 01/28/18 12:30 RBC 2.92 M/mm3 (3.60-5.2) L 01/28/18 12:30 Hgb 9.2 GM/dL (10.7-15.3) L 01/28/18 12:30 Hct 28.6 % (32.4-45.2) L 01/28/18 12:30 MCV 97.9 fl (80-96) H 01/28/18 12:30 MCHC 32.1 g/dl (32.0-36.0) 01/28/18 12:30 RDW 20.6 % (11.6-15.6) H 01/28/18 12:30 Plt Count 215 K/MM3 (134-434) 01/28/18 12:30 Sodium 141 mmol/L (136-145) 01/28/18 12:30 Potassium 4.1 mmol/L (3.5-5.1) 01/28/18 12:30 Chloride 103 mmol/L (98-107) 01/28/18 12:30 Carbon Dioxide 32 mmol/L (21-32) 01/28/18 12:30 Anion Gap 5 MMOL/L (8-16) L 01/28/18 12:30 BUN 26 mg/dL (7-18) H 01/28/18 12:30 Creatinine 3.8 mg/dL (0.55-1.3) H 01/28/18 12:30 Random Glucose 123 mg/dL (74-106) H 01/28/18 12:30 Calcium 8.5 mg/dL (8.5-10.1) 01/28/18 12:30 Blood Type O POSITIVE 01/15/18 16:49 Antibody Screen Positive H 01/15/18 16:49 INR 1.15 (0.83-1.09) H 01/16/18 08:50 - ASSESSMENT/PLAN 1. Make NPO after midnight except po meds 2. GI/DVT PPX 3. Medical optimization / clearance Visit type - Case Type Case Type: ED Admission - New patient This patient is new to me today: Yes Date on this admission: 01/29/18
[2018-01-29] MEDS: ERTAPENEM SODIUM 0.5 GM in SODIUM CHLORIDE 50 ML IVPB SCH (09:43)
[2018-01-29] MEDS: LIDOCAINE 5% TOPICAL PATCH TP SCH (09:43)
[2018-01-29] MEDS: METOPROLOL TARTRATE 25 MG TABLET (FP) PO SCH ×2 (09:44→21:37)
[2018-01-29] MEDS: LACTOBACILLUS ACIDOPHILUS 1 TABLET PO SCH (09:44)
[2018-01-29] MEDS: APIXABAN 2.5 MG TABLET PO SCH ×2 (09:44→21:37)
--- NOTE | 2018-01-29 12:55 | PN ---
Progress Note, TOPPER PRESS OPERATOR AUTOMATIC - Note Progress Note: Family bring pt soft foods including rice and beans, cheese, with good tolerance. Maintain head of bed elevated with chin to neutral or flexed during mealtime and for at least an hour after meals. Feed slowly, teaspoon at a time Watch for swallow reflex before next bite/sip is given Inform Nursing if patient coughs, clears throat or sounds wet and gurgly during or after meals. Consider :diet upgrade to Chopped diet, as tolerated. Monitor tolerance
--- NOTE | 2018-01-29 13:08 | PN ---
Teaching Attending Note Name of Resident: Marisela Simmons ATTENDING PHYSICIAN STATEMENT I saw and evaluated the patient. I reviewed the resident's note and discussed the case with the resident. I agree with the resident's findings and plan as documented with exceptions below SUBJECTIVE: Patient seen and examined. Minimal interactions, more awake and interactive today than seen last week. OBJECTIVE: Vital Signs Period Temp Pulse Resp BP Sys/Franco Pulse Ox Last 24 Hr 97.9 F-98.3 F 59-67 16-48 120-145/60-88 94 Intake & Output 01/26/18 01/27/18 01/28/18 01/29/18 23:59 23:59 23:59 23:59 Intake Total 150 100 450 Balance 150 100 450 Weight 113 lb 7.995 oz General: lying in bed in no acute distress Abdomen:soft, grimacing on non specific palpation of chest/abdomen, ND, positive bowel sounds, no voluntary or involuntary guarding or rigidity positive bowel sounds Extremities: no edema Chest: decreased effort, no rales or wheezing Active Medications Acetaminophen (Tylenol -) 650 mg PO Q6H PRN PRN Reason: Fever Last Admin: 01/28/18 22:48 Dose: 650 mg Apixaban (Eliquis -) 2.5 mg PO BID [facility] Last Admin: 01/29/18 09:44 Dose: 2.5 mg Artificial Tears (Artificial Tears) 1 drop OU DAILY PRN PRN Reason: DRY EYES Last Admin: 01/26/18 13:31 Dose: 1 drop Ertapenem 0.5 gm/ Sodium (Chloride) 50 mls @ 100 mls/hr IVPB DAILY [facility]; Protocol Last Admin: 01/29/18 09:43 Dose: 100 mls/hr Lactobacillus Acidophilus (Bacid -) 1 tab PO DAILY [facility] Last Admin: 01/29/18 09:44 Dose: 1 tab Lidocaine (Lidoderm Patch -) 1 patch TP DAILY [facility] Last Admin: 01/29/18 09:43 Dose: 1 patch Metoprolol Tartrate (Lopressor -) 25 mg PO BID [facility] Last Admin: 01/29/18 09:44 Dose: 25 mg Miscellaneous (Lidoderm Patch Removal) 1 each MC DAILY@2200 [facility] Last Admin: 01/28/18 22:42 Dose: 1 each Vancomycin HCl (Vancomycin Oral Solution) 125 mg PO Q6HPO [facility] Last Admin: 01/29/18 05:07 Dose: 125 mg Laboratory Results - last 24 hr 01/28/18 01/28/18 01/29/18 12:30 12:30 11:17 WBC 5.0 RBC 2.92 L Hgb 9.2 L Hct 28.6 L MCV 97.9 H MCH 31.4 MCHC 32.1 RDW 20.6 H Plt Count 215 MPV 9.4 Sodium 141 Potassium 4.1 Chloride 103 Carbon Dioxide 32 Anion Gap 5 L BUN 26 H Creatinine 3.8 H Creat Clearance w eGFR 11.49 POC Glucometer 85 Random Glucose 123 H Calcium 8.5 Microbiology 01/18/18 12:52 Abscess AFB Smear Concentration - Final 01/18/18 12:52 Abscess Mycobacterial Culture - Preliminary 01/18/18 12:52 Abscess ADOLFO Preparation - Preliminary 01/18/18 12:52 Abscess Fungal Culture - Preliminary 01/17/18 11:40 Wound-Other Gram Stain - Final 01/17/18 11:40 Wound-Other Wound Culture - Final Escherichia Coli Proteus Mirabilis 01/18/18 12:52 Abscess Gram Stain - Final 01/18/18 12:52 Abscess Body Fluid Culture - Final Escherichia Coli Esbl Mainstreaming Facilitator 01/18/18 12:52 Abscess Anaerobic Culture - Final 01/15/18 16:52 Blood - Peripheral Venous Blood Culture - Final NO GROWTH AFTER 5 DAYS INCUBATION 01/15/18 16:52 Blood - Peripheral Venous Blood Culture - Final NO GROWTH AFTER 5 DAYS INCUBATION 01/15/18 16:25 Abdomen Gram Stain - Final 01/15/18 16:25 Abdomen Wound Culture - Final Escherichia Coli Esbl Mainstreaming Facilitator Escherichia Coli Esbl Mainstreaming Facilitator#2 Proteus Mirabilis 01/15/18 16:25 Urine - Urine German Urine Culture - Final Escherichia Coli Esbl Mainstreaming Facilitator ASSESSMENT AND PLAN: 77 yof with reportedly prolonged stay at [facility] for PNA, cdiff (requiring fecal transplant), 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 -Abdominal wound dehiscence with fluid collection s/ BIJU drain placement 01/18, s/ p removal 01/25/2018 -Left AV fistula thrombus -Failed transplant kidney in 09/2017, s/p removal/off immunosuppressants, on HD -AMS, r/o metabolic toxic encephalopathy from renal failure/infection vs gradual decline in mental status from above,improved, close to baseline -Bacteruria -Recent reported PNA -Reported C difficile x 4 s/p fecal transplant -h/o RLE DVT, repeat duplex neg here -h/o AFib with wide complex tachycardia. -Prolonged QTc Plan: ID input noted. Ertapenem/PO vanco day 10. Discuss with ID about duration of abx. PO vanco while on ertapenem, then slow taper. Discussed with Dr. Gamez, no concerns reported on abscessogram, BIJU drain removed accordingly, no additional testing indicated. Vascular surgery input noted For AV fistulogram/clot removal in AM. NPO after midnight. Afebrile, normal WBC, hemodynamics stable. Surgery input noted. Renal Input appreciated, continue HD. Shiley cath removed. Patient with h/o splenic infarcts, also Afib and RLE at [facility]. Coumadin was offered but son declined and wanted his mother on eliquis. Continue eliquis.. Continue lopressor 25 mg BID and titrate as needed. Dysphagia pureed diet with aspiration precautions when awake as tolerated. Speech/swallow eval noted. Avoid psychotropics given QTc > 500. Psych input if concerns of agitation or non -coperation noted. DVTPPX, Eliquis as above. Dispo planning in 24 hours pending ID input, surgical intervention for Av fistula .Address dc planning with family. (Son adamantly declined transfer to [facility] on admission. Declined for transfer by multiple tertiary care centers including [facility], [facility], [place]. Records from [facility] have been reviewed in detail, prolonged hospital stay with transplant nephrectomy 11/05, course complicated by afib/wide complex tachycardia (family declined coumadin, was on eliquis), also severe anemia (Hb 5.6 requiring multiple transfusion), declined PEG, was seen by palliative care. Found on fluid collection on CT A/p in 01/07, plan was for CT with contrast and IR guided aspiration as the last documentation. She was also planned for PICC, also reported MDR E. Coli, was on meropenem with HD for the same. Eliquis was discontinued given her anemia, fluid collection and plan for intervention.)
[2018-01-29 13:41] LABS: EOS % 1.3 % (0-4.5); HEMATOCRIT 32.3 % (32.4-45.2); HEMOGLOBIN 10.3 GM/dL (10.7-15.3); MCH 31.3 pg (25.7-33.7); MCHC 31.8 g/dl (32.0-36.0); MEAN CELL VOLUME 98.4 fl (80-96); NEUT % 66.7 % (42.8-82.8); PLATELET COUNT 227 K/MM3 (134-434); RBC 3.29 M/mm3 (3.60-5.2); RDW 20.2 % (11.6-15.6); WHITE BLOOD COUNT 5.5 K/mm3 (4.0-10.0)
[2018-01-29 13:54] LABS: INR 1.81 (0.83-1.09); PROTHROMBIN TIME (PATIENT) 21.5 SEC (9.7-13.0)
[2018-01-29 14:07] LABS: ALBUMIN 2.3 g/dl (3.4-5.0); ALK PHOS 163 U/L (45-117); ANION GAP 4 MMOL/L (8-16); BILIRUBIN,TOTAL 0.8 mg/dL (0.2-1); BLOOD UREA NITROGEN 20 mg/dL (7-18); CALCIUM 9.1 mg/dL (8.5-10.1); CHLORIDE 107 mmol/L (98-107); CO2 34 mmol/L (21-32); CREATININE 3.3 mg/dL (0.55-1.3); GLUCOSE,RANDOM 91 mg/dL (74-106); PHOSPHOROUS 3.6 mg/dL (2.5-4.9); POTASSIUM 4.1 mmol/L (3.5-5.1); SGOT/AST 20 U/L (15-37); SGPT/ALT 10 U/L (13-61); SODIUM 145 mmol/L (136-145); TOT PROT 7.6 g/dl (6.4-8.2)
--- NOTE | 2018-01-29 15:41 | PN ---
Progress Note, Physician History of Present Illness: Pt seen and examined at bedside. She is awake and appears comfortable. - Current Medication List Current Medications: Active Medications Acetaminophen (Tylenol -) 650 mg PO Q6H PRN PRN Reason: Fever Last Admin: 01/28/18 22:48 Dose: 650 mg Apixaban (Eliquis -) 2.5 mg PO BID [facility] Last Admin: 01/29/18 09:44 Dose: 2.5 mg Artificial Tears (Artificial Tears) 1 drop OU DAILY PRN PRN Reason: DRY EYES Last Admin: 01/26/18 13:31 Dose: 1 drop Ertapenem 0.5 gm/ Sodium (Chloride) 50 mls @ 100 mls/hr IVPB DAILY [facility]; Protocol Last Admin: 01/29/18 09:43 Dose: 100 mls/hr Lactobacillus Acidophilus (Bacid -) 1 tab PO DAILY [facility] Last Admin: 01/29/18 09:44 Dose: 1 tab Lidocaine (Lidoderm Patch -) 1 patch TP DAILY [facility] Last Admin: 01/29/18 09:43 Dose: 1 patch Metoprolol Tartrate (Lopressor -) 25 mg PO BID [facility] Last Admin: 01/29/18 09:44 Dose: 25 mg Miscellaneous (Lidoderm Patch Removal) 1 each MC DAILY@2200 [facility] Last Admin: 01/28/18 22:42 Dose: 1 each Vancomycin HCl (Vancomycin Oral Solution) 125 mg PO Q6HPO [facility] Last Admin: 01/29/18 12:28 Dose: 125 mg - Objective Vital Signs: Vital Signs Temperature 97.4 F L 01/29/18 13:45 Pulse Rate 60 01/29/18 13:45 Respiratory Rate 14 01/29/18 13:45 Blood Pressure 133/65 01/29/18 13:45 O2 Sat by Pulse Oximetry (%) 94 L 01/29/18 09:00 Constitutional: Yes: Calm, Cachectic Eyes: Yes: Conjunctiva Clear Cardiovascular: Yes: S1, S2 Respiratory: Yes: CTA Bilaterally Gastrointestinal: Yes: Soft Genitourinary: Yes: Incontinence Musculoskeletal: Yes: Muscle Weakness Edema: No Neurological: Yes: Confusion Labs: CBC, BMP 01/29/18 13:20 01/29/18 13:20 INR, PTT INR 1.81 (0.83-1.09) H 01/29/18 13:20 Problem List - Problems (1) ESRD (end stage renal disease) on dialysis Code(s): N18.6 - END STAGE RENAL DISEASE; Z99.2 - DEPENDENCE ON RENAL DIALYSIS Assessment/Plan Current Medications Generic Name Dose Route Start Last Admin Trade Name Berta PRN Reason Stop Dose Admin Acetaminophen 650 mg 01/18/18 17:48 01/28/18 22:48 Tylenol - PO 650 mg Q6H PRN Administration Fever Apixaban 2.5 mg 01/21/18 22:00 01/29/18 09:44 Eliquis - PO 2.5 mg BID [facility] Administration Artificial Tears 1 drop 01/17/18 10:00 01/26/18 13:31 Artificial Tears OU 1 drop DAILY PRN Administration DRY EYES Ertapenem 0.5 gm/ Sodium 50 mls @ 100 mls/hr 01/18/18 16:00 01/29/18 09:43 Chloride IVPB 100 mls/hr DAILY [facility] Administration Protocol Lactobacillus Acidophilus 1 tab 01/23/18 10:00 01/29/18 09:44 Bacid - PO 1 tab DAILY [facility] Administration Lidocaine 1 patch 01/17/18 14:45 01/29/18 09:43 Lidoderm Patch - TP 1 patch DAILY [facility] Administration Metoprolol Tartrate 25 mg 01/20/18 10:00 01/29/18 09:44 Lopressor - PO 25 mg BID [facility] Administration Miscellaneous 1 each 01/17/18 22:00 01/28/18 22:42 Lidoderm Patch Removal MC 1 each DAILY@2200 [facility] Administration Vancomycin HCl 125 mg 01/18/18 18:00 01/29/18 12:28 Vancomycin Oral Solution PO 125 mg Q6HPO [facility] Administration Impression 1. ESRD 2. failed kidney transplant 3. hx DM 4. Hx HTN 5. altered mental status 6. post op infection 7. c.diff 8. a-fib 9. failure to thrive 10.malnutrition Plan - pt tolerated HD yesterday - going for thrombectomy tomorrow - gracie removed - hanny removed - repeat labs in am - cont wound care - epogen for anemia - encourage PO intake, continue nepro to help with nutritional status - abx per primary team
[2018-01-29] MEDS: ACETAMINOPHEN 325 MG TABLET (FP) PO PRN (17:41)
--- NOTE | 2018-01-29 18:57 | PN ---
Physical Exam: SUBJECTIVE: Patient seen and examined at bedside this morning. Patient is resting comfortably. No acute events overnight. OBJECTIVE: Vital Signs Period Temp Pulse Resp BP Sys/Franco Pulse Ox Last 24 Hr 97.0 F-98.3 F 59-67 14-19 133-158/62-84 94-94 GENERAL: Lying in bed, in no acute distress. LUNGS: Breath sounds clear to auscultation bilaterally. HEART: Regular rate and rhythm, S1, S2 without murmur, rub or gallop. ABDOMEN: Soft, nontender, nondistended, normoactive bowel sounds, +open wound with yellowish discharge, no swelling or erythema. BIJU drain in place draining yellowish fluid. EXTREMITIES: palpable DP pulses bilaterally, warm, well-perfused, no edema. SKIN: Warm, dry, normal turgor Laboratory Results - last 24 hr 01/29/18 01/29/18 01/29/18 11:17 13:20 13:20 WBC 5.5 RBC 3.29 L Hgb 10.3 L Hct 32.3 L MCV 98.4 H MCH 31.3 MCHC 31.8 L RDW 20.2 H Plt Count 227 MPV 9.0 Absolute Neuts (auto) 3.7 Neutrophils % 66.7 Lymphocytes % 21.0 Monocytes % 10.0 Eosinophils % 1.3 Basophils % 1.0 Nucleated RBC % 0 PT with INR 21.50 H INR 1.81 H Sodium Potassium Chloride Carbon Dioxide Anion Gap BUN Creatinine Creat Clearance w eGFR POC Glucometer 85 Random Glucose Calcium Phosphorus Total Bilirubin AST ALT Alkaline Phosphatase Total Protein Albumin 01/29/18 13:20 WBC RBC Hgb Hct MCV MCH MCHC RDW Plt Count MPV Absolute Neuts (auto) Neutrophils % Lymphocytes % Monocytes % Eosinophils % Basophils % Nucleated RBC % PT with INR INR Sodium 145 Potassium 4.1 Chloride 107 Carbon Dioxide 34 H Anion Gap 4 L BUN 20 H Creatinine 3.3 H Creat Clearance w eGFR 13.52 POC Glucometer Random Glucose 91 Calcium 9.1 Phosphorus 3.6 Total Bilirubin 0.8 AST 20 ALT 10 L Alkaline Phosphatase 163 H Total Protein 7.6 Albumin 2.3 L Active Medications Generic Name Dose Route Start Last Admin Trade Name Freq PRN Reason Stop Dose Admin Acetaminophen 650 mg 01/18/18 17:48 01/29/18 17:41 Tylenol - PO 650 mg Q6H PRN Administration Fever Apixaban 2.5 mg 01/21/18 22:00 01/29/18 09:44 Eliquis - PO 2.5 mg BID [facility] Administration Artificial Tears 1 drop 01/17/18 10:00 01/26/18 13:31 Artificial Tears OU 1 drop DAILY PRN Administration DRY EYES Ertapenem 0.5 gm/ Sodium 50 mls @ 100 mls/hr 01/18/18 16:00 01/29/18 09:43 Chloride IVPB 100 mls/hr DAILY [facility] Administration Protocol Lactobacillus Acidophilus 1 tab 01/23/18 10:00 01/29/18 09:44 Bacid - PO 1 tab DAILY [facility] Administration Lidocaine 1 patch 01/17/18 14:45 01/29/18 09:43 Lidoderm Patch - TP 1 patch DAILY [facility] Administration Metoprolol Tartrate 25 mg 01/20/18 10:00 01/29/18 09:44 Lopressor - PO 25 mg BID [facility] Administration Miscellaneous 1 each 01/17/18 22:00 01/28/18 22:42 Lidoderm Patch Removal MC 1 each DAILY@2200 [facility] Administration Vancomycin HCl 125 mg 01/18/18 18:00 01/29/18 17:40 Vancomycin Oral Solution PO 125 mg Q6HPO [facility] Administration Microbiology 01/18/18 12:52 Abscess AFB Smear Concentration - Preliminary 01/18/18 12:52 Abscess Mycobacterial Culture - Preliminary 01/18/18 12:52 Abscess ADOLFO Preparation - Preliminary 01/18/18 12:52 Abscess Fungal Culture - Preliminary 01/17/18 11:40 Wound-Other Gram Stain - Final 01/17/18 11:40 Wound-Other Wound Culture - Final Escherichia Coli Proteus Mirabilis 01/18/18 12:52 Abscess Gram Stain - Final 01/18/18 12:52 Abscess Body Fluid Culture - Final Escherichia Coli Esbl Interface Developer 01/18/18 12:52 Abscess Anaerobic Culture - Final 01/15/18 16:52 Blood - Peripheral Venous Blood Culture - Final NO GROWTH AFTER 5 DAYS INCUBATION 01/15/18 16:52 Blood - Peripheral Venous Blood Culture - Final NO GROWTH AFTER [address] abdomen/pelvis with contrast (01/17/2018) - Multiple surgical metallic clips again limiting evaluation of the right hemipelvis soft tissue due to beam hardening artifacts. Interval slight increase in size of previously described collection in the right hemipelvis with thick, irregular and enhancing wall. It is at the expected anatomical location of a resected pelvic kidney as per history. No gross free air or free fluid in the abdomen or pelvis. Multiple cystic densities in the pancreas for which correlation with MRI is needed. Limited visualization of the gallbladder due to motion/breathing artifact with suggestion of a sludge layering posteriorly again seen. Duplex US of RUE - No evidence of deep venous thrombosis. CT abdomen/pelvis with contrast (01/15/2018) - Small to moderate size hiatus hernia. Atelectatic changes with nodular opacities in the left lung base likely representing infiltrates for which a follow-up CT scan of the chest in one to 2 weeks is recommended. Moderate size hiatus hernia. Slightly overdistended gallbladder with suggestion of a sludge layering posteriorly. Dilated common bile duct measuring 1.3 cm multiple cystic densities in the pancreas with correlation with MRI. Bilateral atrophic kidneys. Multiple surgical metallic clips in the right hemipelvis obscuring the soft tissue details. However, there is a focal low-attenuation density in the right hemipelvis measuring 4.5 cm likely representing a collection/abscess at the site of prior right renal transplant that was resected according to the submitted clinical history. Extensive diverticulosis coli mainly in the sigmoid colon without evidence of acute diverticulitis. CXR - [id number] cardiomegaly without evidence of acute lung disease. ASSESSMENT/PLAN: Patient is a 77 year old female, previously admitted at [facility] for 144 days (s/p failed renal transplant, s/p removal), discharged AMA, as per son, brought at the ED for lethargy. #Abdominal wound: s/p IR-guided drainage of serosanguinous fluid -Fluid sent for cultures - +ESBL, +non-lactose fermenting gram negative bacilli -Repeat wound cultures -+E.coli, +Proteus -Surgery (Dr. Kelly) consulted. Recommendations appreciated. -ID (Dr. Shanks) consulted. Recommendations appreciated. -Continue Ertapenem (day 11) -Continue PO Vancomycin for hx of cdiff. Q6h while on Ertapenem and then slow taper -Probiotic therapy. -Contact isolation. -Abscessogram done. BIJU removed. -Proper wound care. #ESRD: failed renal transplant, s/p removal -Hemodialysis ([facility]) -Nephrology (Dr. Winters) consulted. Recommendations appreciated. - HD ([facility]) -Vascular surgery (Dr. Neri) consulted. Recommendations appreciated. - Left femoral shiley removed today. - Thrombectomy of AVF, or possible permacath insertion tomorrow - NPO after midnight. #Altered mental status: -likely acute metabolic toxic encephalopathy from renal failure and infection. -Speech and swallow evaluation. Recommendations appreciated: -May advance to chopped diet. -Maintain head of bed elevated with chin to neutral or flexed during mealtime and for at least an hour after meals. -Feed slowly, 1/2 teaspoon at a time. -Watch for swallow reflex before next bite/sip is given. -Inform Nursing if patient coughs, clears throat or sounds wet and gurgly during or after meals. #RLE DVT -Duplex US of RUE - No evidence of deep venous thrombosis. -SCDs applied -Eliquis 2.5 mg BID started. -I called the son, Aries, who is the HCP, and informed him that we will start patient on Eliquis. The son understood and agreed with the plan. -Will monitor H/H. -Will continue eliquis as long as patient remains hemodynamically stable. #Atrial fibrillation -Eliquis 2.5 mg BID -Metoprolol (Lopressor) 25mg BID. #Anemia -likely 2/2 iron deficiency and ESRD -Epogen given. #FEN -Not on any standing fluids. -Electrolytes wnl, routine bmp monitoring -dysphagia puree diet. #Prophylaxis -Eliquis 2.5 mg BID. #Disposition -Declined for transfer by multiple tertiary care centers. -Son wants to bring patient home once medically optimized. - SNF placement on discharge also brought up, explained to him that patient might need prolonged IV antibiotics that's why a skilled nursing is suggested. The son understood and said he will think about it. Will follow-up again tomorrow. Visit type - Emergency Visit Emergency Visit: Yes ED Registration Date: 01/16/18 Care time: The patient presented to the Emergency Department on the above date and was hospitalized for further evaluation of their emergent condition. - New Patient This patient is new to me today: Yes Date on this admission: 01/29/18 - Critical Care Critical Care patient: No
[2018-01-29] MEDS: LIDOCAINE PATCH REMOVAL MC SCH (21:38)
[2018-01-30] MEDS: VANCOMYCIN 250 MG/5 ML ORAL SOLUTION PO SCH ×4 (05:06→23:20)
[2018-01-30 07:03] LABS: BASO % 0.9 % (0-2.0); HEMATOCRIT 24.4 % (32.4-45.2); LYMPH % 31.8 % (8-40); MCH 32.4 pg (25.7-33.7); MCHC 32.8 g/dl (32.0-36.0); MEAN CELL VOLUME 98.5 fl (80-96); MONO % 10.3 % (3.8-10.2); PLATELET COUNT 226 K/MM3 (134-434); RBC 2.48 M/mm3 (3.60-5.2); RDW 19.8 % (11.6-15.6); WHITE BLOOD COUNT 5.8 K/mm3 (4.0-10.0)
--- NOTE | 2018-01-30 07:19 | PN ---
Teaching Attending Note Name of Resident: Marisela Simmons ATTENDING PHYSICIAN STATEMENT I saw and evaluated the patient. I reviewed the resident's note and discussed the case with the resident. I agree with the resident's findings and plan as documented with exceptions below. SUBJECTIVE: Patient seen and examined. awake but minimal responses. Unable to assess for ROS. OBJECTIVE: Vital Signs Period Temp Pulse Resp BP Sys/Franco Pulse Ox Last 24 Hr 97.0 F-98.5 F 59-68 14-19 133-158/62-84 94-96 Intake & Output 01/27/18 01/28/18 01/29/18 01/30/18 23:59 23:59 23:59 23:59 Intake Total 100 450 850 Balance 100 450 850 General: lying in bed, no acute distres Chest:decreased effort, no rales or wheezing Abdomen:soft, ND, positive bowel sounds, non specific grimacing on generalized palpation of chest or abdomen Extremities: no edema Rectal: stool with dark blood half cupful in the diaper Active Medications Acetaminophen (Tylenol -) 650 mg PO Q6H PRN PRN Reason: Fever Last Admin: 01/29/18 17:41 Dose: 650 mg Apixaban (Eliquis -) 2.5 mg PO BID [facility] Last Admin: 01/29/18 21:37 Dose: 2.5 mg Artificial Tears (Artificial Tears) 1 drop OU DAILY PRN PRN Reason: DRY EYES Last Admin: 01/26/18 13:31 Dose: 1 drop Ertapenem 0.5 gm/ Sodium (Chloride) 50 mls @ 100 mls/hr IVPB DAILY [facility]; Protocol Last Admin: 01/29/18 09:43 Dose: 100 mls/hr Lactobacillus Acidophilus (Bacid -) 1 tab PO DAILY [facility] Last Admin: 01/29/18 09:44 Dose: 1 tab Lidocaine (Lidoderm Patch -) 1 patch TP DAILY [facility] Last Admin: 01/29/18 09:43 Dose: 1 patch Metoprolol Tartrate (Lopressor -) 25 mg PO BID [facility] Last Admin: 01/29/18 21:37 Dose: 25 mg Miscellaneous (Lidoderm Patch Removal) 1 each MC DAILY@2200 [facility] Last Admin: 01/29/18 21:38 Dose: Not Given Vancomycin HCl (Vancomycin Oral Solution) 125 mg PO Q6HPO [facility] Last Admin: 01/30/18 05:06 Dose: 125 mg Laboratory Results - last 24 hr 01/29/18 01/29/18 01/29/18 11:17 13:20 13:20 WBC 5.5 RBC 3.29 L Hgb 10.3 L Hct 32.3 L MCV 98.4 H MCH 31.3 MCHC 31.8 L RDW 20.2 H Plt Count 227 MPV 9.0 Absolute Neuts (auto) 3.7 Neutrophils % 66.7 Lymphocytes % 21.0 Monocytes % 10.0 Eosinophils % 1.3 Basophils % 1.0 Nucleated RBC % 0 PT with INR 21.50 H INR 1.81 H Sodium Potassium Chloride Carbon Dioxide Anion Gap BUN Creatinine Creat Clearance w eGFR POC Glucometer 85 Random Glucose Calcium Phosphorus Total Bilirubin AST ALT Alkaline Phosphatase Total Protein Albumin 01/29/18 01/30/18 13:20 06:00 WBC 5.8 RBC 2.48 L Hgb 8.0 L Hct 24.4 L D MCV 98.5 H MCH 32.4 MCHC 32.8 RDW 19.8 H Plt Count 226 MPV 9.0 Absolute Neuts (auto) 3.2 Neutrophils % 55.0 Lymphocytes % 31.8 D Monocytes % 10.3 H Eosinophils % 2.0 Basophils % 0.9 Nucleated RBC % 0 PT with INR INR Sodium 145 Potassium 4.1 Chloride 107 Carbon Dioxide 34 H Anion Gap 4 L BUN 20 H Creatinine 3.3 H Creat Clearance w eGFR 13.52 POC Glucometer Random Glucose 91 Calcium 9.1 Phosphorus 3.6 Total Bilirubin 0.8 AST 20 ALT 10 L Alkaline Phosphatase 163 H Total Protein 7.6 Albumin 2.3 L Microbiology 01/28/18 14:25 Blood - Pre-Dialysis Blood Culture - Preliminary NO GROWTH OBTAINED AFTER 24 HOURS, INCUBATION TO CONTINUE FOR 4 DAYS. 01/28/18 15:00 Blood - Pre-Dialysis Blood Culture - Preliminary NO GROWTH OBTAINED AFTER 24 HOURS, INCUBATION TO CONTINUE FOR 4 DAYS. 01/18/18 12:52 Abscess AFB Smear Concentration - Final 01/18/18 12:52 Abscess Mycobacterial Culture - Preliminary 01/18/18 12:52 Abscess ADOLFO Preparation - Preliminary 01/18/18 12:52 Abscess Fungal Culture - Preliminary 01/17/18 11:40 Wound-Other Gram Stain - Final 01/17/18 11:40 Wound-Other Wound Culture - Final Escherichia Coli Proteus Mirabilis 01/18/18 12:52 Abscess Gram Stain - Final 01/18/18 12:52 Abscess Body Fluid Culture - Final Escherichia Coli Esbl Petrol Tanker Driver 01/18/18 12:52 Abscess Anaerobic Culture - Final 01/15/18 16:52 Blood - Peripheral Venous Blood Culture - Final NO GROWTH AFTER 5 DAYS INCUBATION 01/15/18 16:52 Blood - Peripheral Venous Blood Culture - Final NO GROWTH AFTER 5 DAYS INCUBATION 01/15/18 16:25 Abdomen Gram Stain - Final 01/15/18 16:25 Abdomen Wound Culture - Final Escherichia Coli Esbl Petrol Tanker Driver Escherichia Coli Esbl Petrol Tanker Driver#2 Proteus Mirabilis 01/15/18 16:25 Urine - Urine German Urine Culture - Final Escherichia Coli Esbl Petrol Tanker Driver ASSESSMENT AND PLAN: 77 yof with reportedly prolonged stay at [facility] for PNA, cdiff (requiring fecal transplant), 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 -Prolonged QTc Plan: Overnight events noted. Hold eliquis for now, monitor h/h. Transfuse PRBC with HD. GI consult, case discussed with Dr. Ro. Place on PPI, monitor closely for now. Place cardiac surgeon, discussed with nursing. Discussed with Dr. Neri, plan to hold off on AVF thrombectomy for now as will need heparin for the same. Plan for SHiley and PRBC with HD. Care co-ordinated with Surgery PA and Dr. Winters. Hypoglycemic this AM, D50 25 gm X1. Discussed with renal, place on D5w at 30 cc/hr while NPO. ID input noted. Ertapenem/PO vanco day 11. Discussed with Dr. Shanks, plan for abx for next 2-3 days. PO flagyl for now. Discussed with Dr. Gamez, no concerns reported on abscessogram, BIJU drain removed accordingly, no additional testing indicated. Afebrile, normal WBC, hemodynamics stable. Surgery input noted. Patient with h/o splenic infarcts, also Afib and RLE at [facility]. Coumadin was offered but son declined and wanted his mother on eliquis. Eliquis on hold as above, will address based on clinical course. Continue lopressor 25 mg BID as tolerated. NPO for now. Avoid psychotropics given QTc > 500. Psych input if concerns of agitation or non -coperation noted. DVTPPX, SCDs in bed while eliquis on hold. no DVT on current exam, CT A/P with splenic concerns. Continuation of eliquis risks outweigh benefits at this stage. d/c for now. Dispo planning on hold given GIB concerns. Total time spent including patient visit, discussion with RN, Dr. Neri, Dr. Winters, Dr. Shanks, GI and co-ordination of care 45 min. (Son adamantly declined transfer to [facility] on admission. Declined for transfer by multiple tertiary care centers including [facility], [facility], [facility]. Records from [facility] have been reviewed in detail, prolonged hospital stay with transplant nephrectomy 11/05, course complicated by afib/wide complex tachycardia (family declined coumadin, was on eliquis), also severe anemia (Hb 5.6 requiring multiple transfusion), declined PEG, was seen by palliative care. Found on fluid collection on CT A/p in 01/07, plan was for CT with contrast and IR guided aspiration as the last documentation. She was also planned for PICC, also reported MDR E. Coli, was on meropenem with HD for the same. Eliquis was discontinued given her anemia, fluid collection and plan for intervention.)
[2018-01-30 08:33] LABS: ALK PHOS 145 U/L (45-117); ANION GAP 6 MMOL/L (8-16); BILIRUBIN,TOTAL 0.6 mg/dL (0.2-1); BLOOD UREA NITROGEN 23 mg/dL (7-18); CALCIUM 9.4 mg/dL (8.5-10.1); CHLORIDE 110 mmol/L (98-107); CO2 30 mmol/L (21-32); CREATININE 3.7 mg/dL (0.55-1.3); GLUCOSE,RANDOM 61 mg/dL (74-106); MAGNESIUM 2.1 mg/dL (1.8-2.4); PHOSPHOROUS 3.9 mg/dL (2.5-4.9); POTASSIUM 4.6 mmol/L (3.5-5.1); SGOT/AST 14 U/L (15-37); SGPT/ALT 7 U/L (13-61); SODIUM 146 mmol/L (136-145); TOT PROT 6.6 g/dl (6.4-8.2)
[2018-01-30] MEDS ORDERED: PANTOPRAZOLE SODIUM 40 MG VIAL IVPUSH SCH (10:00)
[2018-01-30] MEDS: LIDOCAINE 5% TOPICAL PATCH TP SCH (10:06)
[2018-01-30] MEDS: LACTOBACILLUS ACIDOPHILUS 1 TABLET PO SCH (10:06)
[2018-01-30] MEDS: ERTAPENEM SODIUM 0.5 GM in SODIUM CHLORIDE 50 ML IVPB SCH (10:06)
[2018-01-30] MEDS: METOPROLOL TARTRATE 25 MG TABLET (FP) PO SCH ×2 (10:07→22:24)
--- NOTE | 2018-01-30 11:54 | PROC ---
Central Line Insertion - Procedure Note TIME OUT performed prior to this procedure with verbal confirmation of correct patient identity, correct side, agreement of the procedure, correct patient position, availability of necessary equipment. The consent form is complete and accurate. Risk of possible infection, bleeding and pneumothorax have been discussed with the patient. Safety precautions based on patient history or medication use has been addressed. Indication: Poor Venous Access ( and Dialysis) Consent on Chart: Yes (telephone consent via HCP) Central Line: Dialysis Cath, Tri Lumen Position: Supine Area prepped with Chlorhexidine solution then draped using sterile barrier protection. Anesthesia: Lidocaine 1% Technique used: Seldinger Ultrasound Guided Assistance: Yes Site: Right Femoral Dark venous non-pulsatile flow noted from hub of needle. The catheter was introduced. Guide wire removed intact. Each port aspirated then flushed with heparin flush in preparation for dialysis later today. normal saline and capped. Line secured to skin with silk suture. Biopatch placed around base of line. Sterile occlusive dressing applied. No complications. Patient tolerated the procedure well. Senior PA, Kitty Cardoza, was present and supervised for the entire procedure.
[2018-01-30] MEDS ORDERED: DEXTROSE 50%-WATER 25 GM/50 ML DISP.SYRIN IVPUSH ONE (12:29)
[2018-01-30] MEDS ORDERED: EPOETIN ALFA 2,000 UNIT/1 ML VIAL IVPUSH ONE (12:35)
--- NOTE | 2018-01-30 12:35 | PN ---
Progress Note, Physician History of Present Illness: Pt seen and examined at bedside. She is having a GI bleed and her Hg is dropping. - Current Medication List Current Medications: Active Medications Acetaminophen (Tylenol -) 650 mg PO Q6H PRN PRN Reason: Fever Last Admin: 01/29/18 17:41 Dose: 650 mg Artificial Tears (Artificial Tears) 1 drop OU DAILY PRN PRN Reason: DRY EYES Last Admin: 01/26/18 13:31 Dose: 1 drop Ertapenem 0.5 gm/ Sodium (Chloride) 50 mls @ 100 mls/hr IVPB DAILY [facility]; Protocol Last Admin: 01/30/18 10:06 Dose: 100 mls/hr Lactobacillus Acidophilus (Bacid -) 1 tab PO DAILY [facility] Last Admin: 01/30/18 10:06 Dose: Not Given Lidocaine (Lidoderm Patch -) 1 patch TP DAILY [facility] Last Admin: 01/30/18 10:06 Dose: 1 patch Metoprolol Tartrate (Lopressor -) 25 mg PO BID [facility] Last Admin: 01/30/18 10:07 Dose: Not Given Miscellaneous (Lidoderm Patch Removal) 1 each MC DAILY@2200 [facility] Last Admin: 01/29/18 21:38 Dose: Not Given Pantoprazole Sodium (Protonix Iv) 40 mg IVPUSH DAILY [facility] Last Admin: 01/30/18 10:07 Dose: 40 mg Vancomycin HCl (Vancomycin Oral Solution) 125 mg PO Q6HPO [facility] Last Admin: 01/30/18 12:14 Dose: Not Given - Objective Vital Signs: Vital Signs Temperature 97.4 F L 01/30/18 08:50 Pulse Rate 67 01/30/18 08:50 Respiratory Rate 18 01/30/18 09:00 Blood Pressure 148/80 01/30/18 08:50 O2 Sat by Pulse Oximetry (%) 94 L 01/30/18 09:00 Constitutional: Yes: Calm Eyes: Yes: Conjunctiva Clear HENT: Yes: Atraumatic Cardiovascular: Yes: S1, S2 Respiratory: Yes: CTA Bilaterally Gastrointestinal: Yes: Soft, Other (dressing in place) Genitourinary: Yes: Incontinence Musculoskeletal: Yes: Muscle Weakness Edema: No Neurological: Yes: Confusion Labs: CBC, BMP 01/30/18 06:00 01/30/18 06:00 INR, PTT INR 1.81 (0.83-1.09) H 01/29/18 13:20 Problem List - Problems (1) ESRD (end stage renal disease) on dialysis Code(s): N18.6 - END STAGE RENAL DISEASE; Z99.2 - DEPENDENCE ON RENAL DIALYSIS Assessment/Plan Current Medications Generic Name Dose Route Start Last Admin Trade Name Freq PRN Reason Stop Dose Admin Acetaminophen 650 mg 01/18/18 17:48 01/29/18 17:41 Tylenol - PO 650 mg Q6H PRN Administration Fever Artificial Tears 1 drop 01/17/18 10:00 01/26/18 13:31 Artificial Tears OU 1 drop DAILY PRN Administration DRY EYES Dextrose 25 gm 01/30/18 12:29 D50w (Vial) - IVPUSH 01/30/18 12:30 NOW ONE Ertapenem 0.5 gm/ Sodium 50 mls @ 100 mls/hr 01/18/18 16:00 01/30/18 10:06 Chloride IVPB 100 mls/hr DAILY [facility] Administration Protocol Lactobacillus Acidophilus 1 tab 01/23/18 10:00 01/30/18 10:06 Bacid - PO Not Given DAILY [facility] Lidocaine 1 patch 01/17/18 14:45 01/30/18 10:06 Lidoderm Patch - TP 1 patch DAILY [facility] Administration Metoprolol Tartrate 25 mg 01/20/18 10:00 01/30/18 10:07 Lopressor - PO Not Given BID [facility] Miscellaneous 1 each 01/17/18 22:00 01/29/18 21:38 Lidoderm Patch Removal MC Not Given DAILY@2200 [facility] Pantoprazole Sodium 40 mg 01/30/18 10:00 01/30/18 10:07 Protonix Iv IVPUSH 40 mg DAILY [facility] Administration Vancomycin HCl 125 mg 01/18/18 18:00 01/30/18 12:14 Vancomycin Oral Solution PO Not Given Q6HPO [facility] Impression 1. ESRD 2. failed kidney transplant 3. hx DM 4. Hx HTN 5. altered mental status 6. post op infection 7. c.diff 8. a-fib 9. failure to thrive 10.malnutrition 11. anemia 12. GI bleed Plan - prbc transfusion per primary team - gracie placed for HD - can give blood products with HD - GI eval - can give an amp of d50 and start d5w at 30 as her sugar was low, cont to monitor blood sugar - cont wound care - epogen for anemia - abx per primary team
[2018-01-30 13:08] LABS: BASO % 1.1 % (0-2.0); EOS % 0.7 % (0-4.5); HEMATOCRIT 27.1 % (32.4-45.2); HEMOGLOBIN 8.7 GM/dL (10.7-15.3); LYMPH % 25.2 % (8-40); MCH 31.6 pg (25.7-33.7); MEAN CELL VOLUME 98.7 fl (80-96); MONO % 9.8 % (3.8-10.2); NEUT % 63.2 % (42.8-82.8); PLATELET COUNT 246 K/MM3 (134-434); RBC 2.75 M/mm3 (3.60-5.2); RDW 20.1 % (11.6-15.6)
[2018-01-30] MEDS ORDERED: DEXTROSE 50%-WATER 25 GM/50 ML DISP.SYRIN ONE (13:15)
[2018-01-30] MEDS ORDERED: SODIUM CHLORIDE 250 ML IV PRN (15:05)
--- NOTE | 2018-01-30 15:12 | PN ---
Physical Exam: SUBJECTIVE: Patient seen and examined at bedside this morning. Patient complains of vague abdominal pain. Patient was noted to have dark red blood per rectum. OBJECTIVE: Vital Signs Period Temp Pulse Resp BP Sys/Franco Pulse Ox Last 24 Hr 97.0 F-98.5 F 64-78 16-18 118-158/71-84 94-96 GENERAL: Lying in bed, in no acute distress. LUNGS: Breath sounds clear to auscultation bilaterally. HEART: Regular rate and rhythm, S1, S2 without murmur, rub or gallop. ABDOMEN: Soft, nontender, nondistended, normoactive bowel sounds, +open wound with yellowish discharge, no swelling or erythema. BIJU drain in place draining yellowish fluid. EXTREMITIES: palpable DP pulses bilaterally, warm, well-perfused, no edema. SKIN: Warm, dry, normal turgor JOSE: +dark red, clotted blood per rectum, amounting to more than 1 cup on the diaper; sphincter intact, no fissures, hemorrhoids or masses appreciated. Laboratory Results - last 24 hr 01/30/18 01/30/18 01/30/18 06:00 06:00 09:40 WBC 5.8 RBC 2.48 L Hgb 8.0 L Hct 24.4 L D MCV 98.5 H MCH 32.4 MCHC 32.8 RDW 19.8 H Plt Count 226 MPV 9.0 Absolute Neuts (auto) 3.2 Neutrophils % 55.0 Lymphocytes % 31.8 D Monocytes % 10.3 H Eosinophils % 2.0 Basophils % 0.9 Nucleated RBC % 0 Sodium 146 H Potassium 4.6 Chloride 110 H Carbon Dioxide 30 Anion Gap 6 L BUN 23 H Creatinine 3.7 H Creat Clearance w eGFR 11.85 POC Glucometer Random Glucose 61 L Calcium 9.4 Phosphorus 3.9 Magnesium 2.1 Total Bilirubin 0.6 AST 14 L ALT 7 L Alkaline Phosphatase 145 H Total Protein 6.6 Albumin 2.0 L Blood Type O POSITIVE Antibody Screen Positive H Antibody Identification Anti-lc Antigen Identification c Antigen - NEGATIVE Crossmatch See Detail 01/30/18 01/30/18 12:40 12:53 WBC 7.0 RBC 2.75 L Hgb 8.7 L Hct 27.1 L MCV 98.7 H MCH 31.6 MCHC 32.0 RDW 20.1 H Plt Count 246 MPV 9.0 Absolute Neuts (auto) 4.4 Neutrophils % 63.2 Lymphocytes % 25.2 D Monocytes % 9.8 Eosinophils % 0.7 Basophils % 1.1 Nucleated RBC % 0 Sodium Potassium Chloride Carbon Dioxide Anion Gap BUN Creatinine Creat Clearance w eGFR POC Glucometer 65 Random Glucose Calcium Phosphorus Magnesium Total Bilirubin AST ALT Alkaline Phosphatase Total Protein Albumin Blood Type Antibody Screen Antibody Identification Antigen Identification Crossmatch Active Medications Generic Name Dose Route Start Last Admin Trade Name Freq PRN Reason Stop Dose Admin Acetaminophen 650 mg 01/18/18 17:48 01/29/18 17:41 Tylenol - PO 650 mg Q6H PRN Administration Fever Artificial Tears 1 drop 01/17/18 10:00 01/26/18 13:31 Artificial Tears OU 1 drop DAILY PRN Administration DRY EYES Epoetin Abe 3,000 unit/ 5,000 unit 01/30/18 15:15 Epoetin Abe 2,000 unit IVPUSH 01/30/18 15:16 ONCE ONE Ertapenem 0.5 gm/ Sodium 50 mls @ 100 mls/hr 01/18/18 16:00 01/30/18 10:06 Chloride IVPB 100 mls/hr DAILY [facility] Administration Protocol Sodium Chloride 250 mls @ 3,000 mls/hr 01/30/18 15:05 Normal Saline - IV 01/31/18 15:04 PRN PRN Hypotension during Dialysis Lactobacillus Acidophilus 1 tab 01/23/18 10:00 01/30/18 10:06 Bacid - PO Not Given DAILY [facility] Lidocaine 1 patch 01/17/18 14:45 01/30/18 10:06 Lidoderm Patch - TP 1 patch DAILY [facility] Administration Metoprolol Tartrate 25 mg 01/20/18 10:00 01/30/18 10:07 Lopressor - PO Not Given BID [facility] Miscellaneous 1 each 01/17/18 22:00 01/29/18 21:38 Lidoderm Patch Removal MC Not Given DAILY@2200 [facility] Pantoprazole Sodium 40 mg 01/30/18 10:00 01/30/18 10:07 Protonix Iv IVPUSH 40 mg DAILY [facility] Administration Vancomycin HCl 125 mg 01/18/18 18:00 01/30/18 12:14 Vancomycin Oral Solution PO Not Given Q6HPO [facility] Microbiology 01/18/18 12:52 Abscess AFB Smear Concentration - Preliminary 01/18/18 12:52 Abscess Mycobacterial Culture - Preliminary 01/18/18 12:52 Abscess ADOLFO Preparation - Preliminary 01/18/18 12:52 Abscess Fungal Culture - Preliminary 01/17/18 11:40 Wound-Other Gram Stain - Final 01/17/18 11:40 Wound-Other Wound Culture - Final Escherichia Coli Proteus Mirabilis 01/18/18 12:52 Abscess Gram Stain - Final 01/18/18 12:52 Abscess Body Fluid Culture - Final Escherichia Coli Esbl Bingo Floater 01/18/18 12:52 Abscess Anaerobic Culture - Final 01/15/18 16:52 Blood - Peripheral Venous Blood Culture - Final NO GROWTH AFTER 5 DAYS INCUBATION 01/15/18 16:52 Blood - Peripheral Venous Blood Culture - Final NO GROWTH AFTER [address] abdomen/pelvis with contrast (01/17/2018) - Multiple surgical metallic clips again limiting evaluation of the right hemipelvis soft tissue due to beam hardening artifacts. Interval slight increase in size of previously described collection in the right hemipelvis with thick, irregular and enhancing wall. It is at the expected anatomical location of a resected pelvic kidney as per history. No gross free air or free fluid in the abdomen or pelvis. Multiple cystic densities in the pancreas for which correlation with MRI is needed. Limited visualization of the gallbladder due to motion/breathing artifact with suggestion of a sludge layering posteriorly again seen. Duplex US of RUE - No evidence of deep venous thrombosis. CT abdomen/pelvis with contrast (01/15/2018) - Small to moderate size hiatus hernia. Atelectatic changes with nodular opacities in the left lung base likely representing infiltrates for which a follow-up CT scan of the chest in one to 2 weeks is recommended. Moderate size hiatus hernia. Slightly overdistended gallbladder with suggestion of a sludge layering posteriorly. Dilated common bile duct measuring 1.3 cm multiple cystic densities in the pancreas with correlation with MRI. Bilateral atrophic kidneys. Multiple surgical metallic clips in the right hemipelvis obscuring the soft tissue details. However, there is a focal low-attenuation density in the right hemipelvis measuring 4.5 cm likely representing a collection/abscess at the site of prior right renal transplant that was resected according to the submitted clinical history. Extensive diverticulosis coli mainly in the sigmoid colon without evidence of acute diverticulitis. CXR - [id number] cardiomegaly without evidence of acute lung disease. ASSESSMENT/PLAN: Patient is a 77 year old female, previously admitted at [facility] for 144 days (s/p failed renal transplant, s/p removal), discharged AMA, as per son, brought at the ED for lethargy. #Abdominal wound: s/p IR-guided drainage of serosanguinous fluid -Fluid sent for cultures - +ESBL, +non-lactose fermenting gram negative bacilli -Repeat wound cultures -+E.coli, +Proteus -Surgery (Dr. Kelly) consulted. Recommendations appreciated. -ID (Dr. Shanks) consulted. Recommendations appreciated. -Continue Ertapenem (day 12 of 14) -Continue PO Vancomycin for hx of cdiff. Plan to extend for 2 weeks and then slow taper. -Probiotic therapy. -Contact isolation. -Abscessogram done. BIJU removed. -Proper wound care. #ESRD: failed renal transplant, s/p removal -Hemodialysis (MWF) -Nephrology (Dr. Winters) consulted. Recommendations appreciated. - HD (MWF) - Can give blood products with HD - Can give an amp of D50 and start D5W at 30ml/hr as sugar was low - continue to monitor blood sugar -Vascular surgery (Dr. Neri) consulted. Recommendations appreciated. - Thrombectomy of AVF, or possible permacath insertion - procedure withheld - Insertion of tri lumen catheter done for HD #Acute GI bleeding: likely LGIB t/c diverticular vs angiectasis vs adenoCA; can not totally rule out UGIB -Dark red, clotted blood per rectum, amounting to more than a cup, noted this morning. -Eliquis discontinued -Tri lumen catheter established. -Type and screen stat. Patient received 2 u pRBC today. -Repeat Hgb post transfusion : 11 -Will continue to monitor. -GI (Dr. Cruz) consulted. Recommendations appreciated. -NPO except ice chips. -Protonix 40mg IV BID -Transfuse to a Hgb between 9 and 10 -Hold anticoagulation -For Upper endoscopy tomorrow if family agrees. -If patient were to re-bleed again, would also order a nuclear medicine bleeding scan or CT angiogram -Cardiology (Dr. Holden) consulted. Recommendations appreciated. -Prolonged QTc: More likely secondary to prominent U-waves than an actual QT prolongation -Would continue Beta Blockers if tolerated -Holding AC for GI bleed -There are no direct cardiac contraindications to GI procedures. #Altered mental status: -likely acute metabolic toxic encephalopathy from renal failure and infection. -Speech and swallow evaluation. Recommendations appreciated: -May advance to chopped diet. -Maintain head of bed elevated with chin to neutral or flexed during mealtime and for at least an hour after meals. -Feed slowly, 1/2 teaspoon at a time. -Watch for swallow reflex before next bite/sip is given. -Inform Nursing if patient coughs, clears throat or sounds wet and gurgly during or after meals. #RLE DVT -Duplex US of RUE - No evidence of deep venous thrombosis. -SCDs applied -Eliquis 2.5 mg BID put on hold in setting of GI bleed. -Will monitor H/H. #Atrial fibrillation -Eliquis 2.5 mg BID -Metoprolol (Lopressor) 25mg BID. #Anemia -likely 2/2 iron deficiency and ESRD -Epogen given. #FEN -D5W at 30ml/hr for hypoglycemia -Electrolytes wnl, routine bmp monitoring -dysphagia puree diet. NPO after midnight for EGD tomorrow. #Prophylaxis -Hold Eliquis 2.5 mg BID due to GI bleed. #Disposition -Declined for transfer by multiple tertiary care centers. -Son wants to bring patient home once medically optimized. Visit type - Emergency Visit Emergency Visit: Yes ED Registration Date: 01/16/18 Care time: The patient presented to the Emergency Department on the above date and was hospitalized for further evaluation of their emergent condition. - New Patient This patient is new to me today: Yes Date on this admission: 01/30/18 - Critical Care Critical Care patient: No
[2018-01-30] MEDS ORDERED: EPOETIN ALFA 3,000 UNIT, EPOETIN ALFA 2,000 UNIT IVPUSH ONE (15:15)
--- NOTE | 2018-01-30 15:16 | EKG ---
Test Reason : Blood Pressure : / mmHG Vent. Rate : 068 BPM Atrial Rate : 068 BPM P-R Int : 196 ms QRS Dur : 110 ms QT Int : 482 ms P-R-T Axes : 065 007 090 degrees QTc Int : 512 ms NORMAL SINUS RHYTHM INCOMPLETE LEFT BUNDLE BRANCH BLOCK PROLONGED QT ABNORMAL ECG WHEN COMPARED WITH ECG OF 16-JAN-2018 10:45, MINIMAL CRITERIA FOR ANTERIOR INFARCT ARE NO LONGER PRESENT NONSPECIFIC T WAVE ABNORMALITY NOW EVIDENT IN LATERAL LEADS Confirmed by ADELAIDE MYERS MD ([id number]) on 01/30/2018 3:16:06 PM [facility] By[facility] Confirmed By:ADELAIDE MYERS MD
--- NOTE | 2018-01-30 15:30 | CON.CARD ---
Consult Consult Specialty:: Cardiology Consult Reason for Consultation:: AFIB - History of Present Illness Chief Complaint: Agitated History of Present Illness: This is a 77 year old female with a PMH of a renal transplant about 7 years ago , AFIB, ESRD on HD, and HLD. She was at [facility] but signed out AMA. H/O a DVT right femoral 06/14/17 and AC was started. Last echcardiogram at [facility] was 06/12/17 EF 60%, normal LV function. LVEF 60% QTc Noted to be 516 ms. GI bleed, AC is currently held. GI evaluation in progress. - Past Medical History Cardio/Vascular: Yes: HTN, Hyperlipdemia Renal/: Yes: Renal Failure, Renal Inusuff, Hemodialysis ...: No Infectious Disease: Yes: C-Diff Endocrine: Yes: Diabetes Mellitus - Past Surgical History Past Surgical History: Yes: Kidney Transplant Additional Surgical History: resection of transplanted kidney - Alcohol/Substance Use Hx Alcohol Use: No - Smoking History Smoking history: Never smoked Have you smoked in the past 12 months: No - Social History Usual Living Arrangement: With Child ADL: Family Assistance Home Medications - Allergies Allergies/Adverse Reactions: Allergies Allergy/AdvReac Type Severity Reaction Status Date / Time No Known Allergies Allergy Verified 01/15/18 14:21 - Home Medications Home Medications: Ambulatory Orders Unobtainable 01/15/18 Vital Signs: Vital Signs Temperature 97.5 F L 01/30/18 14:35 Pulse Rate 78 01/30/18 14:40 Respiratory Rate 18 01/30/18 14:40 Blood Pressure 118/74 01/30/18 14:40 O2 Sat by Pulse Oximetry (%) 94 L 01/30/18 09:00 Constitutional: Yes: Anxious Eyes: Yes: WNL HENT: Yes: WNL Neck: Yes: WNL Respiratory: Yes: CTA Bilaterally Gastrointestinal: Yes: Normal Bowel Sounds, Soft Cardiovascular: Yes: Regular Rate and Rhythm (NL S1S2) JVD: No Extremities: Yes: WNL Edema: No Neurological: Yes: Alert (Agitated) - Other Data Labs, Other Data: CBC, BMP 01/30/18 12:40 01/30/18 06:00 INR, PTT INR 1.81 (0.83-1.09) H 01/29/18 13:20 Assessment/Plan 77 year old female with a PMH of a renal transplant about 7 years ago, AFIB, ESRD on HD, and HLD. She was at [facility] but signed out AMA. H/O a DVT right femoral 06/14/17 and AC was started. Last echcardiogram at [facility] was 06/12/17 EF 60%, normal LV function. LVEF 60% QTc Noted to be 516 ms. GI bleed, AC is currently held. GI evaluation in progress. Prolonged QTc More likely secondary to prominent U-waves than an actual QT prolongation Would continue Beta Blockers if tolerated AFIB Now in NSR. Holding AC for GI bleed There are no direct cardiac contraindications to GI procedures.
--- NOTE | 2018-01-30 15:30 | PN ---
Progress Note (short form) - Note Progress Note: episode rectal bleeding this am much more alert Vital Signs Period Temp Pulse Resp BP Sys/Franco Pulse Ox Last 24 Hr 97.0 F-98.5 F 64-78 16-18 118-158/71-84 94-96 cor-rrr lungs clear abd soft,+BS superficial wound clean +right femoral HD access ext no edema CBC, BMP 01/30/18 12:40 01/30/18 06:00 Microbiology 01/28/18 14:25 Blood - Pre-Dialysis Blood Culture - Preliminary NO GROWTH OBTAINED AFTER 24 HOURS, INCUBATION TO CONTINUE FOR 4 DAYS. 01/28/18 15:00 Blood - Pre-Dialysis Blood Culture - Preliminary NO GROWTH OBTAINED AFTER 24 HOURS, INCUBATION TO CONTINUE FOR 4 DAYS. 01/18/18 12:52 Abscess AFB Smear Concentration - Final 01/18/18 12:52 Abscess Mycobacterial Culture - Preliminary 01/18/18 12:52 Abscess ADOLFO Preparation - Preliminary 01/18/18 12:52 Abscess Fungal Culture - Preliminary 01/17/18 11:40 Wound-Other Gram Stain - Final 01/17/18 11:40 Wound-Other Wound Culture - Final Escherichia Coli Proteus Mirabilis 01/18/18 12:52 Abscess Gram Stain - Final 01/18/18 12:52 Abscess Body Fluid Culture - Final Escherichia Coli Esbl Facility Coordinator 01/18/18 12:52 Abscess Anaerobic Culture - Final 01/15/18 16:52 Blood - Peripheral Venous Blood Culture - Final NO GROWTH AFTER 5 DAYS INCUBATION 01/15/18 16:52 Blood - Peripheral Venous Blood Culture - Final NO GROWTH AFTER 5 DAYS INCUBATION 01/15/18 16:25 Abdomen Gram Stain - Final 01/15/18 16:25 Abdomen Wound Culture - Final Escherichia Coli Esbl Facility Coordinator Escherichia Coli Esbl Facility Coordinator#2 Proteus Mirabilis 01/15/18 16:25 Urine - Urine German Urine Culture - Final Escherichia Coli Esbl Facility Coordinator a/p gi bleed- d/w hospitalist, has had prior gi bleeding while on coumadin while at [facility]- now NPO, GI consult s/p IR drainage of infected fluid collection ertapenem day #12/ continue po vancomycin plan to extend 2 weeks qid then slow taper esrd/hd d/w hospitalist Problem List - Problems (1) Post-operative infection Code(s): T81.4XXA - (2) C. difficile colitis Code(s): A04.72 - ENTEROCOLITIS D/T CLOSTRIDIUM DIFFICILE, NOT SPCF RECUR (3) Altered mental status Code(s): R41.82 - ALTERED MENTAL STATUS, UNSPECIFIED (4) ESRD (end stage renal disease) on dialysis Code(s): N18.6 - END STAGE RENAL DISEASE; Z99.2 - DEPENDENCE ON RENAL DIALYSIS
--- NOTE | 2018-01-30 17:46 | CONS ---
DATE OF CONSULTATION: DATE OF DICTATION: 01-30-2017 The patient is a 77-year-old female, past medical history of renal transplant 7 years ago, atrial fibrillation, end-stage renal disease, on hemodialysis, hyperlipidemia, history of DVT, on anticoagulation, also with a history of C difficile colitis and diabetes. She has been on Eliquis, last received it last night, and developed episodes, as per the nursing staff, of hematochezia with clots. There is no history of any melena, abdominal pain, nausea, vomiting, or hematemesis. She has not had a recent endoscopic examination. Last colonoscopy was three years ago reported normal and egd was done last year - no ulcers reported. Past medical and surgical history as listed in the HPI. ALLERGIES: No known drug allergies. SOCIAL HISTORY: Does not drink, smoke, or use drugs. FAMILY HISTORY: Noncontributory. MEDICATIONS: Home medications were reviewed. REVIEW OF SYSTEMS: Negative except for pertinent positives as in the HPI. LABORATORY DATA: White blood cell count 7, hemoglobin 8.7, hematocrit 27, MCV 98, platelet count 246. Currently receiving a blood transfusion. Hemoglobin on the 9th was 10 and earlier this morning, hemoglobin was 8. Baseline hemoglobin appears to be between 8 and 10. Platelet count 246. INR 1.8, PT 21. Sodium 146, potassium 4.6, BUN 23, creatinine 3.7, glucose 61, alkaline phosphatase 145, ALT 7, AST 14. Blood cultures are negative. She does have a positive Gram stain from the of body fluid culture, which was positive for ESBL E coli. Blood cultures have been negative. Urine culture with E coli also. There has been no recent abdominal imaging performed on this patient. PHYSICAL EXAMINATION: Vital Signs: Temperature 97, pulse 74, respiratory rate 12, blood pressure 130/ 80. She has not been tachycardic or hypotensive. General: No acute distress. Divehi speaking. HEENT: Anicteric sclerae. Cardiovascular: S1, S2, regular rate and rhythm. Lungs: Bilaterally clear to auscultation anteriorly. Abdomen: Soft, nontender. Extremities: No edema. Currently on hemodialysis at the time of my exam. IMPRESSION: Normocytic anemia and hematochezia in the setting of Eliquis therapy. Included in the differential diagnosis is diverticular bleed, angiectasias, adenocarcinoma. She is hemodynamically stable. I doubt that this is an upper GI bleed; however, it cannot be completely excluded at this time. RECOMMENDATION: N.p.o. except ice chips. Start her on Protonix 40 mg IV b.i.d. , transfuse to a hemoglobin between 9 and 10, hold anticoagulation. Cardiac risk stratification noted. Clear liquid diet tomorrow plan for diagnostic upper endoscopy Sunday. Discussed the plan of care with the sone and HCP - he is in agreement with an egd and if needed colonoscopy. Risk of the procedure including but not limited to perforation bleeding sedation missed lesion explained in detail. If the patient were to develop any further episode of GI bleed obtain a nuclear medicine bleeding scan . This patient will be followed by the GI service. DO LEONID WILDER/[id number] MTDD
[2018-01-30 18:52] LABS: HEMATOCRIT 33.5 % (32.4-45.2); MCH 31.2 pg (25.7-33.7); MEAN CELL VOLUME 94.6 fl (80-96); MEAN PLT VOLUME 9.3 fl (7.5-11.1); PLATELET COUNT 198 K/MM3 (134-434); RBC 3.54 M/mm3 (3.60-5.2); RDW 17.3 % (11.6-15.6); WHITE BLOOD COUNT 6.4 K/mm3 (4.0-10.0)
[2018-01-30] MEDS ORDERED: DEXTROSE 5%-WATER - 1,000 ML IV SCH ×2 (19:00→19:45)
[2018-01-30] MEDS: PANTOPRAZOLE SODIUM 40 MG VIAL IVPUSH SCH (22:24)
[2018-01-30] MEDS: LIDOCAINE PATCH REMOVAL MC SCH (22:24)
[2018-01-31] MEDS ORDERED: ACETAMINOPHEN 1000 MG/100 ML VIAL (NON FORMULARY) IVPB ONE (01:13)
[2018-01-31] MEDS: VANCOMYCIN 250 MG/5 ML ORAL SOLUTION PO SCH ×4 (05:47→23:34)
--- NOTE | 2018-01-31 07:20 | PN ---
Teaching Attending Note Name of Resident: Marisela Simmons ATTENDING PHYSICIAN STATEMENT I saw and evaluated the patient. I reviewed the resident's note and discussed the case with the resident. I agree with the resident's findings and plan as documented with exceptions below. SUBJECTIVE: Patient seen and examined. awake but wouldn't answer except when asked if could turn her, when stated an emphatic 'no'. OBJECTIVE: Vital Signs Period Temp Pulse Resp BP Sys/Franco Pulse Ox Last 24 Hr 97.2 F-98.1 F 61-84 18-20 96-160/52-89 94-94 Intake & Output 01/28/18 01/29/18 01/30/18 01/31/18 23:59 23:59 23:59 23:59 Intake Total 450 850 800 Balance 450 850 800 General: lying in bed, no acute distress Chest: poor effort, no rales or wheezing Abdomen:soft, non specific grimacing on generalized chest and abdominal palpation, no voluntary or involuntary guarding or rigidity Rectal: stool mixed with blood in the diaper Extremities: no edema Active Medications Acetaminophen (Tylenol -) 650 mg PO Q6H PRN PRN Reason: Fever Last Admin: 01/29/18 17:41 Dose: 650 mg Artificial Tears (Artificial Tears) 1 drop OU DAILY PRN PRN Reason: DRY EYES Last Admin: 01/26/18 13:31 Dose: 1 drop Ertapenem 0.5 gm/ Sodium (Chloride) 50 mls @ 100 mls/hr IVPB DAILY [facility]; Protocol Last Admin: 01/30/18 10:06 Dose: 100 mls/hr Sodium Chloride (Normal Saline -) 250 mls @ 3,000 mls/hr IV PRN PRN PRN Reason: Hypotension during Dialysis Stop: 01/31/18 15:04 Dextrose (D5w -) 1,000 mls @ 41.987 mls/hr IV ASDIR [facility] Last Admin: 01/30/18 19:46 Dose: 30 mls/hr Lactobacillus Acidophilus (Bacid -) 1 tab PO DAILY [facility] Last Admin: 01/30/18 10:06 Dose: Not Given Lidocaine (Lidoderm Patch -) 1 patch TP DAILY [facility] Last Admin: 01/30/18 10:06 Dose: 1 patch Metoprolol Tartrate (Lopressor -) 25 mg PO BID [facility] Last Admin: 01/30/18 22:24 Dose: 25 mg Miscellaneous (Lidoderm Patch Removal) 1 each MC DAILY@2200 [facility] Last Admin: 01/30/18 22:24 Dose: 1 each Pantoprazole Sodium (Protonix Iv) 40 mg IVPUSH BID [facility] Last Admin: 01/30/18 22:24 Dose: 40 mg Vancomycin HCl (Vancomycin Oral Solution) 125 mg PO Q6HPO [facility] Last Admin: 01/31/18 05:47 Dose: 125 mg ASSESSMENT AND PLAN: 77 yof with reportedly prolonged stay at 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 -Prolonged QTc Plan: s/p 2 units PRBC 01/30, h/h drifting down, still with ongoing bloody stools. Hemodynamics stable. Start protonix drip. GI input noted, plan for EGD tomorrow. Discuss colonoscopy and additional w/u including nuclear bleeding scan. Close h/h monitoring. Discussed with Dr. Neri, plan to hold off on AVF thrombectomy for now as will need heparin for the same. s/p Shiley and HD on 01/30. D5W at 30 cc/hr , d/c as tolerating po and blood sugars stable. ID input noted. Ertapenem/PO vanco day 12. Discussed with Dr. Gamez, no concerns reported on abscessogram, BIJU drain removed accordingly, no additional testing indicated. Afebrile, normal WBC, hemodynamics stable. Surgery input noted. Cardiology input appreciated. Patient with h/o splenic infarcts, also Afib and RLE at [facility]. Coumadin was offered but son declined and wanted his mother on eliquis. Eliquis on hold as above, will address based on clinical course. recurrent bleed and severe anemia concerns on AC in the past, poor candidate for intermediate card tender AC. Continue lopressor 25 mg BID as tolerated. Avoid psychotropics given QTc > 500. Psych input if concerns of agitation or non -coperation noted. DVTPPX, SCDs in bed while eliquis on hold. no DVT on current exam, CT A/P with no current splenic concerns. Continuation of eliquis risks outweigh benefits at this stage. Dispo planning on hold given GIB concerns. Plan discussed with nursing and all questions answered. (Son adamantly declined transfer to [facility] on admission. Declined for transfer by multiple tertiary care centers including [facility], [facility], [place]. Records from [facility] have been reviewed in detail, prolonged hospital stay with transplant nephrectomy 11/05, course complicated by afib/wide complex tachycardia (family declined coumadin, was on eliquis), also severe anemia (Hb 5.6 requiring multiple transfusion), declined PEG, was seen by palliative care. Found on fluid collection on CT A/p in 01/07, plan was for CT with contrast and IR guided aspiration as the last documentation. She was also planned for PICC, also reported MDR E. Coli, was on meropenem with HD for the same. Eliquis was discontinued given her anemia, fluid collection and plan for intervention.)
[2018-01-31 07:37] LABS: HEMATOCRIT 31.2 % (32.4-45.2); HEMOGLOBIN 10.3 GM/dL (10.7-15.3); MCH 30.8 pg (25.7-33.7); MEAN CELL VOLUME 93.3 fl (80-96); MEAN PLT VOLUME 9.3 fl (7.5-11.1); PLATELET COUNT 193 K/MM3 (134-434); RBC 3.34 M/mm3 (3.60-5.2); RDW 17.8 % (11.6-15.6); WHITE BLOOD COUNT 5.2 K/mm3 (4.0-10.0)
[2018-01-31 08:03] LABS: INR 1.5 (0.83-1.09); PROTHROMBIN TIME (PATIENT) 17.8 SEC (9.7-13.0)
[2018-01-31] MEDS ORDERED: DEXTROSE 50%-WATER - 25 GM/50 ML VIAL IVPUSH ONE (10:00)
[2018-01-31] MEDS ORDERED: DEXTROSE 50%-WATER 25 GM/50 ML DISP.SYRIN ONE (10:01)
[2018-01-31] MEDS ORDERED: PT OWN MED DRAWER 7, Y5N ONE ×2 (10:02→13:46)
[2018-01-31] MEDS: LIDOCAINE 5% TOPICAL PATCH TP SCH (10:08)
[2018-01-31] MEDS: METOPROLOL TARTRATE 25 MG TABLET (FP) PO SCH ×2 (10:08→21:17)
[2018-01-31] MEDS: ERTAPENEM SODIUM 0.5 GM in SODIUM CHLORIDE 50 ML IVPB SCH (10:08)
[2018-01-31] MEDS: LACTOBACILLUS ACIDOPHILUS 1 TABLET PO SCH (10:08)
[2018-01-31] MEDS: PANTOPRAZOLE SODIUM 40 MG VIAL IVPUSH SCH (10:17)
[2018-01-31] MEDS: DEXTROSE 5%-WATER - 1,000 ML IV SCH (11:40)
--- NOTE | 2018-01-31 13:23 | PN ---
Physical Exam: SUBJECTIVE: Patient seen and examined at bedside this morning. Patient reported to have 2 episodes of BRBPR overnight. She remains hemodynamically stable. For EGD and possible colonoscopy tomorrow. OBJECTIVE: Vital Signs Period Temp Pulse Resp BP Sys/Franco Pulse Ox Last 24 Hr 97.2 F-98.1 F 58-84 18-20 96-177/52-89 94-94 GENERAL: Lying in bed, in no acute distress. LUNGS: Breath sounds clear to auscultation bilaterally. HEART: Regular rate and rhythm, S1, S2 without murmur, rub or gallop. ABDOMEN: Soft, nontender, nondistended, normoactive bowel sounds, +open wound with yellowish discharge, no swelling or erythema. EXTREMITIES: palpable DP pulses bilaterally, warm, well-perfused, no edema. SKIN: Warm, dry, normal turgor Laboratory Results - last 24 hr 01/30/18 01/30/18 01/30/18 09:40 15:13 16:48 WBC RBC Hgb Hct MCV MCH MCHC RDW Plt Count MPV PT with INR INR POC Glucometer 173 123 Blood Type O POSITIVE Antibody Screen Positive H Antibody Identification Anti-lc Antigen Identification c Antigen - NEGATIVE Crossmatch See Detail 01/30/18 01/31/18 01/31/18 18:00 00:50 06:00 WBC 6.4 RBC 3.54 L Hgb 11.0 Hct 33.5 D MCV 94.6 MCH 31.2 MCHC 33.0 RDW 17.3 H Plt Count 198 MPV 9.3 PT with INR 17.80 H INR 1.50 H POC Glucometer 65 Blood Type Antibody Screen Antibody Identification Antigen Identification Crossmatch 01/31/18 01/31/18 01/31/18 06:00 08:59 11:38 WBC 5.2 RBC 3.34 L Hgb 10.3 L Hct 31.2 L MCV 93.3 MCH 30.8 MCHC 33.0 RDW 17.8 H Plt Count 193 MPV 9.3 PT with INR INR POC Glucometer 60 118 Blood Type Antibody Screen Antibody Identification Antigen Identification Crossmatch Active Medications Generic Name Dose Route Start Last Admin Trade Name Freq PRN Reason Stop Dose Admin Acetaminophen 650 mg 01/18/18 17:48 01/29/18 17:41 Tylenol - PO 650 mg Q6H PRN Administration Fever Artificial Tears 1 drop 01/17/18 10:00 01/26/18 13:31 Artificial Tears OU 1 drop DAILY PRN Administration DRY EYES Ertapenem 0.5 gm/ Sodium 50 mls @ 100 mls/hr 01/18/18 16:00 01/31/18 10:08 Chloride IVPB 100 mls/hr DAILY [facility] Administration Protocol Sodium Chloride 250 mls @ 3,000 mls/hr 01/30/18 15:05 Normal Saline - IV 01/31/18 15:04 PRN PRN Hypotension during Dialysis Dextrose 1,000 mls @ 30 mls/hr 01/31/18 10:00 01/31/18 11:40 D5w - IV 30 mls/hr ASDIR [facility] Administration Pantoprazole Sodium 80 mg/ 100 mls @ 10 mls/hr 01/31/18 13:00 Sodium Chloride IVPB Q10H [facility] 8 MG/HR Lactobacillus Acidophilus 1 tab 01/23/18 10:00 01/31/18 10:08 Bacid - PO 1 tab DAILY [facility] Administration Lidocaine 1 patch 01/17/18 14:45 01/31/18 10:08 Lidoderm Patch - TP 1 patch DAILY [facility] Administration Metoprolol Tartrate 25 mg 01/20/18 10:00 01/31/18 10:08 Lopressor - PO 25 mg BID [facility] Administration Miscellaneous 1 each 01/17/18 22:00 01/30/18 22:24 Lidoderm Patch Removal MC 1 each DAILY@2200 [facility] Administration Vancomycin HCl 125 mg 01/18/18 18:00 01/31/18 05:47 Vancomycin Oral Solution PO 125 mg Q6HPO [facility] Administration Microbiology 01/18/18 12:52 Abscess AFB Smear Concentration - Preliminary 01/18/18 12:52 Abscess Mycobacterial Culture - Preliminary 01/18/18 12:52 Abscess ADOLFO Preparation - Preliminary 01/18/18 12:52 Abscess Fungal Culture - Preliminary 01/17/18 11:40 Wound-Other Gram Stain - Final 01/17/18 11:40 Wound-Other Wound Culture - Final Escherichia Coli Proteus Mirabilis 01/18/18 12:52 Abscess Gram Stain - Final 01/18/18 12:52 Abscess Body Fluid Culture - Final Escherichia Coli Esbl [employer] 01/18/18 12:52 Abscess Anaerobic Culture - Final 01/15/18 16:52 Blood - Peripheral Venous Blood Culture - Final NO GROWTH AFTER 5 DAYS INCUBATION 01/15/18 16:52 Blood - Peripheral Venous Blood Culture - Final NO GROWTH AFTER [address] abdomen/pelvis with contrast (01/17/2018) - Multiple surgical metallic clips again limiting evaluation of the right hemipelvis soft tissue due to beam hardening artifacts. Interval slight increase in size of previously described collection in the right hemipelvis with thick, irregular and enhancing wall. It is at the expected anatomical location of a resected pelvic kidney as per history. No gross free air or free fluid in the abdomen or pelvis. Multiple cystic densities in the pancreas for which correlation with MRI is needed. Limited visualization of the gallbladder due to motion/breathing artifact with suggestion of a sludge layering posteriorly again seen. Duplex US of RUE - No evidence of deep venous thrombosis. CT abdomen/pelvis with contrast (01/15/2018) - Small to moderate size hiatus hernia. Atelectatic changes with nodular opacities in the left lung base likely representing infiltrates for which a follow-up CT scan of the chest in one to 2 weeks is recommended. Moderate size hiatus hernia. Slightly overdistended gallbladder with suggestion of a sludge layering posteriorly. Dilated common bile duct measuring 1.3 cm multiple cystic densities in the pancreas with correlation with MRI. Bilateral atrophic kidneys. Multiple surgical metallic clips in the right hemipelvis obscuring the soft tissue details. However, there is a focal low-attenuation density in the right hemipelvis measuring 4.5 cm likely representing a collection/abscess at the site of prior right renal transplant that was resected according to the submitted clinical history. Extensive diverticulosis coli mainly in the sigmoid colon without evidence of acute diverticulitis. CXR - [id number] cardiomegaly without evidence of acute lung disease. ASSESSMENT/PLAN: Patient is a 77 year old female, previously admitted at [facility] for 144 days (s/p failed renal transplant, s/p removal), discharged AMA, as per son, brought at the ED for lethargy. #Abdominal wound: s/p IR-guided drainage of serosanguinous fluid -Fluid sent for cultures - +ESBL, +non-lactose fermenting gram negative bacilli -Repeat wound cultures -+E.coli, +Proteus -Surgery (Dr. Kelly) consulted. Recommendations appreciated. -ID (Dr. Shanks) consulted. Recommendations appreciated. -Continue Ertapenem (day 12 of 14) -Continue PO Vancomycin for hx of cdiff. Plan to extend for 2 weeks and then slow taper. -Probiotic therapy. -Contact isolation. -Abscessogram done. BIJU removed. -Proper wound care. #ESRD: failed renal transplant, s/p removal -Hemodialysis (MWF) -Nephrology (Dr. Winters) consulted. Recommendations appreciated. - HD ([facility]) - Can give blood products with HD - Continue D5W at 30ml/hr as sugar was low - continue to monitor blood sugar -Vascular surgery (Dr. Neri) consulted. Recommendations appreciated. - Thrombectomy of AVF, or possible permacath insertion - procedure withheld - Insertion of tri lumen catheter done for HD #Acute GI bleeding: likely LGIB t/c diverticular vs angiectasis vs adenoCA; can not totally rule out UGIB -JOSE: +dark red, clotted blood per rectum, amounting to more than 1 cup on the diaper; sphincter intact, no fissures, hemorrhoids or masses appreciated. -Eliquis discontinued -Tri lumen catheter established. -Type and screen stat. Patient received 2 u pRBC. Hgb post transfusion: 11 -Will continue to monitor. -Protonix drip started. -GI (Dr. Cruz) consulted. Recommendations appreciated. -NPO except ice chips. -Transfuse to a Hgb between 9 and 10 -Hold anticoagulation -For Upper endoscopy on Sunday. Possible Colonscopy. -CT scan with contrast ordered. -Cardiology (Dr. Holden) consulted. Recommendations appreciated. -Prolonged QTc: More likely secondary to prominent U-waves than an actual QT prolongation -Would continue Beta Blockers if tolerated -Holding AC for GI bleed -There are no direct cardiac contraindications to GI procedures. #Altered mental status: -likely acute metabolic toxic encephalopathy from renal failure and infection. -Speech and swallow evaluation. Recommendations appreciated: -May advance to chopped diet. -Maintain head of bed elevated with chin to neutral or flexed during mealtime and for at least an hour after meals. -Feed slowly, 1/2 teaspoon at a time. -Watch for swallow reflex before next bite/sip is given. -Inform Nursing if patient coughs, clears throat or sounds wet and gurgly during or after meals. #RLE DVT -Duplex US of RUE - No evidence of deep venous thrombosis. -SCDs applied -Eliquis 2.5 mg BID put on hold in setting of GI bleed. -Will monitor H/H. #Atrial fibrillation -Eliquis 2.5 mg BID held. -Metoprolol (Lopressor) 25mg BID. #Anemia -likely 2/2 iron deficiency and ESRD -Epogen given. #FEN -D5W at 30ml/hr for hypoglycemia -Electrolytes wnl, routine bmp monitoring -Clear liquid diet. #Prophylaxis -Hold Eliquis 2.5 mg BID due to GI bleed. #Disposition -Declined for transfer by multiple tertiary care centers. -Son wants to bring patient home once medically optimized. Visit type - Emergency Visit Emergency Visit: Yes ED Registration Date: 01/16/18 Care time: The patient presented to the Emergency Department on the above date and was hospitalized for further evaluation of their emergent condition. - New Patient This patient is new to me today: Yes Date on this admission: 01/31/18 - Critical Care Critical Care patient: No
[2018-01-31] MEDS: PANTOPRAZOLE SODIUM 80 MG in SODIUM CHLORIDE 100 ML IVPB SCH ×2 (13:55→23:34)
--- NOTE | 2018-01-31 15:55 | PN ---
Progress Note (short form) - Note Progress Note: episode rectal bleeding this am again s/p transfusion yestereday Vital Signs Period Temp Pulse Resp BP Sys/Franco Pulse Ox Last 24 Hr 97.4 F-98.1 F 58-84 18-20 96-177/61-89 94-94 cor-rrr lungs clear abd soft,nt, incision no drainage ext no edema CBC, BMP 01/30/18 06:00 cbc pending a/p gi bleed- - now NPO, GI consult for endoscopy in am s/p IR drainage of infected fluid collection ertapenem day #13/ continue po vancomycin plan to extend 2 weeks qid then slow taper esrd/hd Problem List - Problems (1) Post-operative infection Code(s): T81.4XXA - (2) C. difficile colitis Code(s): A04.72 - ENTEROCOLITIS D/T CLOSTRIDIUM DIFFICILE, NOT SPCF RECUR (3) Altered mental status Code(s): R41.82 - ALTERED MENTAL STATUS, UNSPECIFIED (4) ESRD (end stage renal disease) on dialysis Code(s): N18.6 - END STAGE RENAL DISEASE; Z99.2 - DEPENDENCE ON RENAL DIALYSIS
[2018-01-31] MEDS ORDERED: SODIUM CHLORIDE 250 ML IV PRN (16:02)
--- NOTE | 2018-01-31 16:02 | PN ---
Progress Note, Physician History of Present Illness: Pt seen and examined at bedside. She remain in tele. She is awake but confused. - Current Medication List Current Medications: Active Medications Acetaminophen (Tylenol -) 650 mg PO Q6H PRN PRN Reason: Fever Last Admin: 01/29/18 17:41 Dose: 650 mg Artificial Tears (Artificial Tears) 1 drop OU DAILY PRN PRN Reason: DRY EYES Last Admin: 01/26/18 13:31 Dose: 1 drop Ertapenem 0.5 gm/ Sodium (Chloride) 50 mls @ 100 mls/hr IVPB DAILY [facility]; Protocol Last Admin: 01/31/18 10:08 Dose: 100 mls/hr Dextrose (D5w -) 1,000 mls @ 30 mls/hr IV ASDIR [facility] Last Admin: 01/31/18 11:40 Dose: 30 mls/hr Pantoprazole Sodium 80 mg/ (Sodium Chloride) 100 mls @ 10 mls/hr IVPB Q10H [facility] Last Admin: 01/31/18 13:55 Dose: 10 mls/hr Lactobacillus Acidophilus (Bacid -) 1 tab PO DAILY [facility] Last Admin: 01/31/18 10:08 Dose: 1 tab Lidocaine (Lidoderm Patch -) 1 patch TP DAILY [facility] Last Admin: 01/31/18 10:08 Dose: 1 patch Metoprolol Tartrate (Lopressor -) 25 mg PO BID [facility] Last Admin: 01/31/18 10:08 Dose: 25 mg Miscellaneous (Lidoderm Patch Removal) 1 each MC DAILY@2200 [facility] Last Admin: 01/30/18 22:24 Dose: 1 each Vancomycin HCl (Vancomycin Oral Solution) 125 mg PO Q6HPO [facility] Last Admin: 01/31/18 13:30 Dose: 125 mg - Objective Vital Signs: Vital Signs Temperature 97.7 F 01/31/18 08:28 Pulse Rate 58 L 01/31/18 08:28 Respiratory Rate 20 01/31/18 08:28 Blood Pressure 165/76 01/31/18 08:28 O2 Sat by Pulse Oximetry (%) 94 L 01/31/18 08:28 Constitutional: Yes: Mild Distress Eyes: Yes: Conjunctiva Clear HENT: Yes: Atraumatic Cardiovascular: Yes: S1, S2 Respiratory: Yes: CTA Bilaterally Gastrointestinal: Yes: Soft Genitourinary: Yes: Incontinence Musculoskeletal: Yes: Muscle Weakness Edema: No Neurological: Yes: Confusion Labs: CBC, BMP 01/30/18 06:00 INR, PTT INR 1.50 (0.83-1.09) H 01/31/18 06:00 Problem List - Problems (1) ESRD (end stage renal disease) on dialysis Code(s): N18.6 - END STAGE RENAL DISEASE; Z99.2 - DEPENDENCE ON RENAL DIALYSIS Assessment/Plan Current Medications Generic Name Dose Route Start Last Admin Trade Name Freq PRN Reason Stop Dose Admin Acetaminophen 650 mg 01/18/18 17:48 01/29/18 17:41 Tylenol - PO 650 mg Q6H PRN Administration Fever Artificial Tears 1 drop 01/17/18 10:00 01/26/18 13:31 Artificial Tears OU 1 drop DAILY PRN Administration DRY EYES Ertapenem 0.5 gm/ Sodium 50 mls @ 100 mls/hr 01/18/18 16:00 01/31/18 10:08 Chloride IVPB 100 mls/hr DAILY [facility] Administration Protocol Dextrose 1,000 mls @ 30 mls/hr 01/31/18 10:00 01/31/18 11:40 D5w - IV 30 mls/hr ASDIR [facility] Administration Pantoprazole Sodium 80 mg/ 100 mls @ 10 mls/hr 01/31/18 13:00 01/31/18 13:55 Sodium Chloride IVPB 10 mls/hr Q10H [facility] Administration 8 MG/HR Lactobacillus Acidophilus 1 tab 01/23/18 10:00 01/31/18 10:08 Bacid - PO 1 tab DAILY [facility] Administration Lidocaine 1 patch 01/17/18 14:45 01/31/18 10:08 Lidoderm Patch - TP 1 patch DAILY [facility] Administration Metoprolol Tartrate 25 mg 01/20/18 10:00 01/31/18 10:08 Lopressor - PO 25 mg BID [facility] Administration Miscellaneous 1 each 01/17/18 22:00 01/30/18 22:24 Lidoderm Patch Removal MC 1 each DAILY@2200 [facility] Administration Vancomycin HCl 125 mg 01/18/18 18:00 01/31/18 13:30 Vancomycin Oral Solution PO 125 mg Q6HPO [facility] Administration Impression 1. ESRD 2. failed kidney transplant 3. hx DM 4. Hx HTN 5. altered mental status 6. post op infection 7. c.diff 8. a-fib 9. failure to thrive 10.malnutrition 11. anemia 12. GI bleed Plan - HD in am - monitor hg - monitor blood sugar - cont wound care - epogen for anemia - abx per primary team - vascular follow up for thrombectomy
--- NOTE | 2018-01-31 16:45 | PN ---
Progress Note, Physician Chief Complaint: No new complaints History of Present Illness: This is a 77 year old female with a PMH of a renal transplant about 7 years ago , AFIB, ESRD on HD, and HLD. She was at [facility] but signed out AMA. H/O a DVT right femoral 06/14/17 and AC was started. Last echcardiogram at [facility] was 06/12/17 EF 60%, normal LV function. LVEF 60% QTc Noted to be 516 ms. GI bleed, AC is currently held. GI evaluation in progress. S/P PRBC - Current Medication List Current Medications: Active Medications Acetaminophen (Tylenol -) 650 mg PO Q6H PRN PRN Reason: Fever Last Admin: 01/29/18 17:41 Dose: 650 mg Artificial Tears (Artificial Tears) 1 drop OU DAILY PRN PRN Reason: DRY EYES Last Admin: 01/26/18 13:31 Dose: 1 drop Epoetin Abe (Epogen -) 7,000 unit IVPUSH ONCE ONE Stop: 02/01/18 16:03 Ertapenem 0.5 gm/ Sodium (Chloride) 50 mls @ 100 mls/hr IVPB DAILY [facility]; Protocol Last Admin: 01/31/18 10:08 Dose: 100 mls/hr Dextrose (D5w -) 1,000 mls @ 30 mls/hr IV ASDIR [facility] Last Admin: 01/31/18 11:40 Dose: 30 mls/hr Pantoprazole Sodium 80 mg/ (Sodium Chloride) 100 mls @ 10 mls/hr IVPB Q10H [facility] Last Admin: 01/31/18 13:55 Dose: 10 mls/hr Sodium Chloride (Normal Saline -) 250 mls @ 3,000 mls/hr IV PRN PRN PRN Reason: Hypotension during Dialysis Stop: 02/01/18 16:02 Lactobacillus Acidophilus (Bacid -) 1 tab PO DAILY [facility] Last Admin: 01/31/18 10:08 Dose: 1 tab Lidocaine (Lidoderm Patch -) 1 patch TP DAILY [facility] Last Admin: 01/31/18 10:08 Dose: 1 patch Metoprolol Tartrate (Lopressor -) 25 mg PO BID [facility] Last Admin: 01/31/18 10:08 Dose: 25 mg Miscellaneous (Lidoderm Patch Removal) 1 each MC DAILY@2200 [facility] Last Admin: 01/30/18 22:24 Dose: 1 each Vancomycin HCl (Vancomycin Oral Solution) 125 mg PO Q6HPO [facility] Last Admin: 01/31/18 13:30 Dose: 125 mg - Objective Vital Signs: Vital Signs Temperature 97.5 F L 01/31/18 13:40 Pulse Rate 58 L 01/31/18 13:40 Respiratory Rate 16 01/31/18 13:40 Blood Pressure 162/65 01/31/18 13:40 O2 Sat by Pulse Oximetry (%) 94 L 01/31/18 08:28 Constitutional: Yes: No Distress HENT: Yes: WNL Neck: Yes: WNL Cardiovascular: Yes: WNL, Regular Rate and Rhythm (NL S1S2) Respiratory: Yes: CTA Bilaterally Gastrointestinal: Yes: Soft Neurological: Yes: Alert (Restrainted Agitated) Labs: CBC, BMP 01/30/18 06:00 INR, PTT INR 1.50 (0.83-1.09) H 01/31/18 06:00 Assessment/Plan 77 year old female with a PMH of a renal transplant about 7 years ago, AFIB, ESRD on HD, and HLD. She was at [facility] but signed out AMA. H/O a DVT right femoral 06/14/17 and AC was started. Last echcardiogram at [facility] was 06/12/17 EF 60%, normal LV function. LVEF 60% QTc Noted to be 516 ms. GI bleed, AC is currently held. GI evaluation in progress. Prolonged QTc More likely secondary to prominent U-waves than an actual QT prolongation Would continue Beta Blockers if tolerated AFIB Now in NSR. Holding AC for GI bleed There are no direct cardiac contraindications to GI procedures. Call us prn
[2018-01-31 16:54] LABS: HEMATOCRIT 30.7 % (32.4-45.2); HEMOGLOBIN 10.4 GM/dL (10.7-15.3); MCH 31.8 pg (25.7-33.7); MCHC 33.8 g/dl (32.0-36.0); MEAN CELL VOLUME 93.9 fl (80-96); MEAN PLT VOLUME 9.5 fl (7.5-11.1); PLATELET COUNT 198 K/MM3 (134-434); RBC 3.27 M/mm3 (3.60-5.2)
[2018-01-31] MEDS ORDERED: PEG3350/SOD SULF,BICARB,CL/KCL 4,000 ML SOLN.RECON PO ONE (18:45)
--- NOTE | 2018-01-31 18:51 | PN ---
GI Progress Note Subjective: Appreciate Dr. Cruz's evaluation yesterday Continued rectal bleeding. Received 2 U PRBC during HD yesterday No abdominal pain - Objective Vital Signs: Vital Signs Temperature 97.5 F L 01/31/18 13:40 Pulse Rate 58 L 01/31/18 13:40 Respiratory Rate 16 01/31/18 13:40 Blood Pressure 162/65 01/31/18 13:40 O2 Sat by Pulse Oximetry (%) 94 L 01/31/18 08:28 Constitutional: Calm Eyes: No: Sclera Icterus Cardiovascular: Yes: Regular Rate and Rhythm Respiratory: Yes: Diminished (at bases bilaterally) Gastrointestinal Inspection: No: Distention ...Auscultate: Yes: Normoactive Bowel Sounds, Other (+ wound dressed in RLQ) ...Palpate: No: Hepatomegaly, Splenomegaly, Tenderness Edema: No (No LE edema) Neurological: Yes: Alert Labs: CBC, BMP 01/31/18 15:10 01/30/18 06:00 INR, PTT INR 1.50 (0.83-1.09) H 01/31/18 06:00 Problem List - Problems (1) Rectal bleeding Assessment/Plan: continued rectal bleeding reported Plan was for upper endoscopy tomorrow however given hemodynamic stability and response to PRBC transfusion, lower GI source would need to be considered. I ordered a bowel prep as well with marco antonio to have colonoscopy performed as well. I explained this to Ms. De La Vega. She stated that she wanted to discuss things with her son first. I explained this to her nurse and she in turn called her son Aries to explain this to him. he in turn asked her why I went in to speak to his mother and hung up the phone. I called him back but he could not talk to me "because he was driving to the hospital. I will discuss this with him when able. Code(s): K62.5 - HEMORRHAGE OF ANUS AND RECTUM
[2018-01-31] MEDS: ACETAMINOPHEN 325 MG TABLET (FP) PO PRN (21:16)
[2018-01-31] MEDS: LIDOCAINE PATCH REMOVAL MC SCH (21:17)
[2018-01-31 22:11] LABS: HEMATOCRIT 27.8 % (32.4-45.2); HEMOGLOBIN 9.3 GM/dL (10.7-15.3); MCH 31.5 pg (25.7-33.7); MCHC 33.5 g/dl (32.0-36.0); MEAN PLT VOLUME 9.9 fl (7.5-11.1); PLATELET COUNT 186 K/MM3 (134-434); RBC 2.96 M/mm3 (3.60-5.2); RDW 17.6 % (11.6-15.6); WHITE BLOOD COUNT 7.3 K/mm3 (4.0-10.0)
[2018-02-01] MEDS: VANCOMYCIN 250 MG/5 ML ORAL SOLUTION PO SCH ×4 (06:06→23:22)
[2018-02-01 08:39] LABS: BASO % 0.7 % (0-2.0); EOS % 2.5 % (0-4.5); HEMATOCRIT 31.3 % (32.4-45.2); HEMOGLOBIN 10.2 GM/dL (10.7-15.3); LYMPH % 27.6 % (8-40); MCH 30.9 pg (25.7-33.7); MCHC 32.5 g/dl (32.0-36.0); MEAN CELL VOLUME 95.2 fl (80-96); MEAN PLT VOLUME 8.2 fl (7.5-11.1); MONO % 8.6 % (3.8-10.2); NEUT % 60.6 % (42.8-82.8); PLATELET COUNT 74 K/MM3 (134-434); RBC 3.29 M/mm3 (3.60-5.2); RDW 17.8 % (11.6-15.6); WHITE BLOOD COUNT 6.5 K/mm3 (4.0-10.0)
[2018-02-01] MEDS ORDERED: DEXTROSE 50%-WATER 25 GM/50 ML DISP.SYRIN ONE (08:51)
[2018-02-01] MEDS ORDERED: DEXTROSE 50%-WATER 25 GM/50 ML DISP.SYRIN IVPUSH ONE (08:55)
[2018-02-01 09:06] LABS: ALBUMIN 1.8 g/dl (3.4-5.0); ALK PHOS 137 U/L (45-117); ANION GAP 9 MMOL/L (8-16); BLOOD UREA NITROGEN 15 mg/dL (7-18); CALCIUM 8.3 mg/dL (8.5-10.1); CHLORIDE 101 mmol/L (98-107); CO2 27 mmol/L (21-32); GLUCOSE,RANDOM 63 mg/dL (74-106); MAGNESIUM 1.8 mg/dL (1.8-2.4); PHOSPHOROUS 4.4 mg/dL (2.5-4.9); POTASSIUM 4.5 mmol/L (3.5-5.1); SGOT/AST 41 U/L (15-37); SGPT/ALT 7 U/L (13-61); SODIUM 137 mmol/L (136-145); TOT PROT 6.4 g/dl (6.4-8.2)
[2018-02-01] MEDS ORDERED: PT OWN MED DRAWER 7, Y5N ONE ×2 (10:29→18:45)
[2018-02-01] MEDS: PANTOPRAZOLE SODIUM 80 MG in SODIUM CHLORIDE 100 ML IVPB SCH (10:32)
[2018-02-01] MEDS: LACTOBACILLUS ACIDOPHILUS 1 TABLET PO SCH (10:32)
[2018-02-01] MEDS: LIDOCAINE 5% TOPICAL PATCH TP SCH (10:33)
[2018-02-01] MEDS: METOPROLOL TARTRATE 25 MG TABLET (FP) PO SCH ×2 (10:33→22:12)
[2018-02-01] MEDS: DEXTROSE 5%-WATER - 1,000 ML IV SCH (10:34)
[2018-02-01] MEDS: ERTAPENEM SODIUM 0.5 GM in SODIUM CHLORIDE 50 ML IVPB SCH (10:34)
[2018-02-01] MEDS ORDERED: ACETAMINOPHEN 1000 MG/100 ML VIAL (NON FORMULARY) IVPB PRN (10:57)
--- NOTE | 2018-02-01 11:46 | PN ---
Teaching Attending Note Name of Resident: Marisela Simmons ATTENDING PHYSICIAN STATEMENT I saw and evaluated the patient. I reviewed the resident's note and discussed the case with the resident. I agree with the resident's findings and plan as documented with exceptions below. SUBJECTIVE: Patient seen and examined, awake smiling, conversant in upper sorbian. denies any pain or new concerns. OBJECTIVE: Vital Signs Period Temp Pulse Resp BP Sys/Franco Pulse Ox Last 24 Hr 97.5 F-97.6 F 58-68 16-20 128-162/65-78 94-98 Intake & Output 01/29/18 01/30/18 01/31/18 02/01/18 23:59 23:59 23:59 23:59 Intake Total 850 800 870 280 Balance 850 800 870 280 Weight 107 lb 109 lb General: lying in bed awake,smiling, no acute distress Chest: decreased effort, no rales or wheezing Abdomen:soft, RLQ wound clean with no surrounding swelling or erythema, no voluntary or involuntary guarding or rigidity, positive bowel sounds Extremities: no edema Active Medications Acetaminophen (Tylenol -) 650 mg PO Q6H PRN PRN Reason: Fever Last Admin: 01/31/18 21:16 Dose: 650 mg Acetaminophen (Ofirmev Injection -) 1,000 mg IVPB Q6H PRN PRN Reason: PAIN Artificial Tears (Artificial Tears) 1 drop OU DAILY PRN PRN Reason: DRY EYES Last Admin: 01/26/18 13:31 Dose: 1 drop Epoetin Abe 3,000 unit/ (Epoetin Abe 4,000 unit) 7,000 unit IVPUSH ONCE ONE Stop: 02/01/18 12:01 Ertapenem 0.5 gm/ Sodium (Chloride) 50 mls @ 100 mls/hr IVPB DAILY [facility]; Protocol Last Admin: 02/01/18 10:34 Dose: 100 mls/hr Dextrose (D5w -) 1,000 mls @ 30 mls/hr IV ASDIR [facility] Last Admin: 02/01/18 10:34 Dose: Not Given Pantoprazole Sodium 80 mg/ (Sodium Chloride) 100 mls @ 10 mls/hr IVPB Q10H [facility] Last Admin: 02/01/18 10:32 Dose: 10 mls/hr Sodium Chloride (Normal Saline -) 250 mls @ 3,000 mls/hr IV PRN PRN PRN Reason: Hypotension during Dialysis Stop: 02/01/18 16:02 Lactobacillus Acidophilus (Bacid -) 1 tab PO DAILY [facility] Last Admin: 02/01/18 10:32 Dose: 1 tab Lidocaine (Lidoderm Patch -) 1 patch TP DAILY [facility] Last Admin: 02/01/18 10:33 Dose: 1 patch Metoprolol Tartrate (Lopressor -) 25 mg PO BID [facility] Last Admin: 02/01/18 10:33 Dose: 25 mg Miscellaneous (Lidoderm Patch Removal) 1 each MC DAILY@2200 [facility] Last Admin: 01/31/18 21:17 Dose: 1 each Vancomycin HCl (Vancomycin Oral Solution) 125 mg PO Q6HPO [facility] Last Admin: 02/01/18 06:06 Dose: 125 mg Laboratory Results - last 24 hr 01/31/18 01/31/18 01/31/18 11:38 15:10 16:46 WBC 6.0 RBC 3.27 L Hgb 10.4 L Hct 30.7 L MCV 93.9 MCH 31.8 MCHC 33.8 RDW 18.0 H Plt Count 198 MPV 9.5 Absolute Neuts (auto) Neutrophils % Lymphocytes % Monocytes % Eosinophils % Basophils % Nucleated RBC % Sodium Potassium Chloride Carbon Dioxide Anion Gap BUN Creatinine Creat Clearance w eGFR POC Glucometer 118 67 Random Glucose Calcium Phosphorus Magnesium Total Bilirubin AST ALT Alkaline Phosphatase Total Protein Albumin 01/31/18 02/01/18 02/01/18 21:45 01:55 08:13 WBC 7.3 RBC 2.96 L Hgb 9.3 L Hct 27.8 L MCV 94.0 MCH 31.5 MCHC 33.5 RDW 17.6 H Plt Count 186 MPV 9.9 Absolute Neuts (auto) Neutrophils % Lymphocytes % Monocytes % Eosinophils % Basophils % Nucleated RBC % Sodium Potassium Chloride Carbon Dioxide Anion Gap BUN Creatinine Creat Clearance w eGFR POC Glucometer 68 63 Random Glucose Calcium Phosphorus Magnesium Total Bilirubin AST ALT Alkaline Phosphatase Total Protein Albumin 02/01/18 02/01/18 08:25 08:25 WBC 6.5 RBC 3.29 L Hgb 10.2 L Hct 31.3 L MCV 95.2 MCH 30.9 MCHC 32.5 RDW 17.8 H Plt Count 74 L D MPV 8.2 D Absolute Neuts (auto) 3.9 Neutrophils % 60.6 Lymphocytes % 27.6 Monocytes % 8.6 Eosinophils % 2.5 D Basophils % 0.7 Nucleated RBC % 1 H Sodium 137 Potassium 4.5 Chloride 101 Carbon Dioxide 27 Anion Gap 9 BUN 15 Creatinine 3.0 H Creat Clearance w eGFR 15.09 POC Glucometer Random Glucose 63 L Calcium 8.3 L Phosphorus 4.4 Magnesium 1.8 Total Bilirubin 1.0 AST 41 H ALT 7 L Alkaline Phosphatase 137 H Total Protein 6.4 Albumin 1.8 L Microbiology 01/28/18 14:25 Blood - Pre-Dialysis Blood Culture - Preliminary NO GROWTH OBTAINED AFTER 72 HOURS, INCUBATION TO CONTINUE FOR 2 DAYS. 01/28/18 15:00 Blood - Pre-Dialysis Blood Culture - Preliminary NO GROWTH OBTAINED AFTER 72 HOURS, INCUBATION TO CONTINUE FOR 2 DAYS. 01/18/18 12:52 Abscess AFB Smear Concentration - Final 01/18/18 12:52 Abscess Mycobacterial Culture - Preliminary 01/18/18 12:52 Abscess ADOLFO Preparation - Preliminary 01/18/18 12:52 Abscess Fungal Culture - Preliminary 01/17/18 11:40 Wound-Other Gram Stain - Final 01/17/18 11:40 Wound-Other Wound Culture - Final Escherichia Coli Proteus Mirabilis 01/18/18 12:52 Abscess Gram Stain - Final 01/18/18 12:52 Abscess Body Fluid Culture - Final Escherichia Coli Esbl Blueprinter 01/18/18 12:52 Abscess Anaerobic Culture - Final 01/15/18 16:52 Blood - Peripheral Venous Blood Culture - Final NO GROWTH AFTER 5 DAYS INCUBATION 01/15/18 16:52 Blood - Peripheral Venous Blood Culture - Final NO GROWTH AFTER 5 DAYS INCUBATION 01/15/18 16:25 Abdomen Gram Stain - Final 01/15/18 16:25 Abdomen Wound Culture - Final Escherichia Coli Esbl Blueprinter Escherichia Coli Esbl Blueprinter#2 Proteus Mirabilis 01/15/18 16:25 Urine - Urine German Urine Culture - Final Escherichia Coli Esbl Blueprinter CTA abdomen/Pelvis done, results pending ASSESSMENT AND PLAN: 77 yof with reportedly prolonged stay at [facility] for PNA, cdiff (requiring fecal transplant), 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 -Prolonged QTc Plan: s/p 2 units PRBC 01/30, h/h stable today Still with ongoing bloody stools. GI input noted, for EGD +/- colonoscopy today. Patient unable to tolerate bowel prep, son declined NG tube. Continue protonix drip. Discussed with Dr. Neri, plan to hold off on AVF thrombectomy for now as will need heparin for the same. s/p Shiley and HD on 01/30. Plan per vascular/renal. D5W at 30 cc/hr , d/c once tolerating po and blood sugars stable. ID input noted. Ertapenem/PO vanco day 13/14. Discussed with Dr. Gamez, no concerns reported on abscessogram, BIJU drain removed accordingly, no additional testing indicated. Afebrile, normal WBC, hemodynamics stable. Surgery input noted. Cardiology input appreciated. Patient with h/o splenic infarcts, also Afib and RLE at [facility]. Coumadin was offered but son declined and wanted his mother on eliquis. Eliquis on hold as above, will address based on clinical course. Recurrent bleed and severe anemia concerns on AC in the past, poor candidate for jail AC. Continue lopressor 25 mg BID as tolerated. Avoid psychotropics given QTc > 500. Psych input if concerns of agitation or non -coperation noted. DVTPPX, SCDs in bed while eliquis on hold. no DVT on current exam, CT A/P with no current splenic concerns. Continuation of eliquis risks outweigh benefits at this stage. Dispo planning on hold given GIB concerns. Plan discussed with nursing and all questions answered. (Son adamantly declined transfer to [facility] on admission. Declined for transfer by multiple tertiary care centers including [facility], [facility], [facility]. Records from [facility] have been reviewed in detail, prolonged hospital stay with transplant nephrectomy 11/05, course complicated by afib/wide complex tachycardia (family declined coumadin, was on eliquis), also severe anemia (Hb 5.6 requiring multiple transfusion), declined PEG, was seen by palliative care. Found on fluid collection on CT A/p in 01/07, plan was for CT with contrast and IR guided aspiration as the last documentation. She was also planned for PICC, also reported MDR E. Coli, was on meropenem with HD for the same. Eliquis was discontinued given her anemia, fluid collection and plan for intervention.)
[2018-02-01] MEDS ORDERED: EPOETIN ALFA 3,000 UNIT, EPOETIN ALFA 4,000 UNIT IVPUSH ONE (12:00)
--- NOTE | 2018-02-01 14:06 | PN ---
Progress Note (short form) - Note Progress Note: EGD / Colonoscopy complete. Reports left in procedural section of the physical chart and to be scanned into [facility] Problem List - Problems (1) Rectal bleeding Code(s): K62.5 - HEMORRHAGE OF ANUS AND RECTUM
--- NOTE | 2018-02-01 15:04 | PN ---
Progress Note (short form) - Note Progress Note: s/p egd and colonoscopy- suspected diverticular bleed alert no abdominal pain Vital Signs Period Temp Pulse Resp BP Sys/Franco Pulse Ox Last 24 Hr 97.5 F-97.6 F 56-68 16-20 84-155/60-78 94-99 cor-rrr lungs clear abd soft,nt ext no edema CBC, BMP 02/01/18 08:25 02/01/18 08:25 a/p gi bleed- - s/p endoscopy management per primary service s/p IR drainage of infected fluid collection ertapenem day # will d/c continue po vancomycin for 2 weeks qid then slow taper esrd/hd please call back if needed Problem List - Problems (1) Post-operative infection Code(s): T81.4XXA - (2) C. difficile colitis Code(s): A04.72 - ENTEROCOLITIS D/T CLOSTRIDIUM DIFFICILE, NOT SPCF RECUR (3) Altered mental status Code(s): R41.82 - ALTERED MENTAL STATUS, UNSPECIFIED (4) ESRD (end stage renal disease) on dialysis Code(s): N18.6 - END STAGE RENAL DISEASE; Z99.2 - DEPENDENCE ON RENAL DIALYSIS
--- NOTE | 2018-02-01 15:24 | PN ---
Progress Note, Physician History of Present Illness: Pt seen and examined at bedside. She went for endoscopy today. - Current Medication List Current Medications: Active Medications Acetaminophen (Tylenol -) 650 mg PO Q6H PRN PRN Reason: Fever Last Admin: 01/31/18 21:16 Dose: 650 mg Acetaminophen (Ofirmev Injection -) 1,000 mg IVPB Q6H PRN PRN Reason: PAIN Artificial Tears (Artificial Tears) 1 drop OU DAILY PRN PRN Reason: DRY EYES Last Admin: 01/26/18 13:31 Dose: 1 drop Ertapenem 0.5 gm/ Sodium (Chloride) 50 mls @ 100 mls/hr IVPB DAILY [facility]; Protocol Last Admin: 02/01/18 10:34 Dose: 100 mls/hr Dextrose (D5w -) 1,000 mls @ 30 mls/hr IV ASDIR [facility] Last Admin: 02/01/18 10:34 Dose: Not Given Sodium Chloride (Normal Saline -) 250 mls @ 3,000 mls/hr IV PRN PRN PRN Reason: Hypotension during Dialysis Stop: 02/01/18 16:02 Lactobacillus Acidophilus (Bacid -) 1 tab PO DAILY [facility] Last Admin: 02/01/18 10:32 Dose: 1 tab Lidocaine (Lidoderm Patch -) 1 patch TP DAILY [facility] Last Admin: 02/01/18 10:33 Dose: 1 patch Metoprolol Tartrate (Lopressor -) 25 mg PO BID [facility] Last Admin: 02/01/18 10:33 Dose: 25 mg Miscellaneous (Lidoderm Patch Removal) 1 each MC DAILY@2200 [facility] Last Admin: 01/31/18 21:17 Dose: 1 each Vancomycin HCl (Vancomycin Oral Solution) 125 mg PO Q6HPO [facility] Last Admin: 02/01/18 14:52 Dose: Not Given - Objective Vital Signs: Vital Signs Temperature 97.5 F L 02/01/18 14:20 Pulse Rate 64 02/01/18 14:47 Respiratory Rate 20 02/01/18 14:47 Blood Pressure 115/61 02/01/18 14:47 O2 Sat by Pulse Oximetry (%) 97 02/01/18 14:20 Constitutional: Yes: Calm Eyes: Yes: Conjunctiva Clear Cardiovascular: Yes: S1, S2 Respiratory: Yes: Rhonchi Gastrointestinal: Yes: Soft Genitourinary: Yes: Incontinence Musculoskeletal: Yes: Muscle Weakness Edema: No Neurological: Yes: Confusion Labs: CBC, BMP 02/01/18 08:25 02/01/18 08:25 INR, PTT INR 1.50 (0.83-1.09) H 01/31/18 06:00 Problem List - Problems (1) ESRD (end stage renal disease) on dialysis Code(s): N18.6 - END STAGE RENAL DISEASE; Z99.2 - DEPENDENCE ON RENAL DIALYSIS Assessment/Plan Current Medications Generic Name Dose Route Start Last Admin Trade Name Freq PRN Reason Stop Dose Admin Acetaminophen 650 mg 01/18/18 17:48 01/31/18 21:16 Tylenol - PO 650 mg Q6H PRN Administration Fever Acetaminophen 1,000 mg 02/01/18 10:57 Ofirmev Injection - IVPB Q6H PRN PAIN Artificial Tears 1 drop 01/17/18 10:00 01/26/18 13:31 Artificial Tears OU 1 drop DAILY PRN Administration DRY EYES Ertapenem 0.5 gm/ Sodium 50 mls @ 100 mls/hr 01/18/18 16:00 02/01/18 10:34 Chloride IVPB 100 mls/hr DAILY [facility] Administration Protocol Dextrose 1,000 mls @ 30 mls/hr 01/31/18 10:00 02/01/18 10:34 D5w - IV Not Given ASDIR [facility] Sodium Chloride 250 mls @ 3,000 mls/hr 01/31/18 16:02 Normal Saline - IV 02/01/18 16:02 PRN PRN Hypotension during Dialysis Lactobacillus Acidophilus 1 tab 01/23/18 10:00 02/01/18 10:32 Bacid - PO 1 tab DAILY [facility] Administration Lidocaine 1 patch 01/17/18 14:45 02/01/18 10:33 Lidoderm Patch - TP 1 patch DAILY [facility] Administration Metoprolol Tartrate 25 mg 01/20/18 10:00 02/01/18 10:33 Lopressor - PO 25 mg BID [facility] Administration Miscellaneous 1 each 01/17/18 22:00 01/31/18 21:17 Lidoderm Patch Removal MC 1 each DAILY@2200 [facility] Administration Vancomycin HCl 125 mg 01/18/18 18:00 02/01/18 14:52 Vancomycin Oral Solution PO Not Given Q6HPO [facility] Impression 1. ESRD 2. failed kidney transplant 3. hx DM 4. Hx HTN 5. altered mental status 6. post op infection 7. c.diff 8. a-fib 9. failure to thrive 10.malnutrition 11. anemia 12. GI bleed Plan - HD today - spoke to vascular to remove shiley after HD - will still need fistula repair - monitor Hg - cont wound care - epogen for anemia - abx per primary team
[2018-02-01] MEDS ORDERED: EPOETIN ALFA 2,000 UNIT/1 ML VIAL IVPUSH ONE (16:02)
--- NOTE | 2018-02-01 16:15 | PN ---
Physical Exam: SUBJECTIVE: Patient seen and examined at bedside this morning. Patient reported to still have rectal bleeding. Otherwise, remains hemodynamically stable. For CT scan with contrast, EGD/Colonoscopy and HD today. OBJECTIVE: Vital Signs Period Temp Pulse Resp BP Sys/Franco Pulse Ox Last 24 Hr 97.5 F-97.6 F 56-68 16-20 84-155/60-78 94-99 GENERAL: Lying in bed, in no acute distress. LUNGS: Breath sounds clear to auscultation bilaterally. HEART: Regular rate and rhythm, S1, S2 without murmur, rub or gallop. ABDOMEN: Soft, nontender, nondistended, normoactive bowel sounds, +open wound on the RLQ, clean, dry, intact, no purulent discharge. EXTREMITIES: palpable DP pulses bilaterally, warm, well-perfused, no edema. SKIN: Warm, dry, normal turgor Laboratory Results - last 24 hr 01/31/18 01/31/18 01/31/18 15:10 16:46 21:45 WBC 6.0 7.3 RBC 3.27 L 2.96 L Hgb 10.4 L 9.3 L Hct 30.7 L 27.8 L MCV 93.9 94.0 MCH 31.8 31.5 MCHC 33.8 33.5 RDW 18.0 H 17.6 H Plt Count 198 186 MPV 9.5 9.9 Absolute Neuts (auto) Neutrophils % Lymphocytes % Monocytes % Eosinophils % Basophils % Nucleated RBC % Sodium Potassium Chloride Carbon Dioxide Anion Gap BUN Creatinine Creat Clearance w eGFR POC Glucometer 67 Random Glucose Calcium Phosphorus Magnesium Total Bilirubin AST ALT Alkaline Phosphatase Total Protein Albumin 02/01/18 02/01/18 02/01/18 01:55 08:13 08:25 WBC 6.5 RBC 3.29 L Hgb 10.2 L Hct 31.3 L MCV 95.2 MCH 30.9 MCHC 32.5 RDW 17.8 H Plt Count 74 L D MPV 8.2 D Absolute Neuts (auto) 3.9 Neutrophils % 60.6 Lymphocytes % 27.6 Monocytes % 8.6 Eosinophils % 2.5 D Basophils % 0.7 Nucleated RBC % 1 H Sodium Potassium Chloride Carbon Dioxide Anion Gap BUN Creatinine Creat Clearance w eGFR POC Glucometer 68 63 Random Glucose Calcium Phosphorus Magnesium Total Bilirubin AST ALT Alkaline Phosphatase Total Protein Albumin 02/01/18 08:25 WBC RBC Hgb Hct MCV MCH MCHC RDW Plt Count MPV Absolute Neuts (auto) Neutrophils % Lymphocytes % Monocytes % Eosinophils % Basophils % Nucleated RBC % Sodium 137 Potassium 4.5 Chloride 101 Carbon Dioxide 27 Anion Gap 9 BUN 15 Creatinine 3.0 H Creat Clearance w eGFR 15.09 POC Glucometer Random Glucose 63 L Calcium 8.3 L Phosphorus 4.4 Magnesium 1.8 Total Bilirubin 1.0 AST 41 H ALT 7 L Alkaline Phosphatase 137 H Total Protein 6.4 Albumin 1.8 L Active Medications Generic Name Dose Route Start Last Admin Trade Name Freq PRN Reason Stop Dose Admin Acetaminophen 650 mg 01/18/18 17:48 01/31/18 21:16 Tylenol - PO 650 mg Q6H PRN Administration Fever Acetaminophen 1,000 mg 02/01/18 10:57 Ofirmev Injection - IVPB Q6H PRN PAIN Artificial Tears 1 drop 01/17/18 10:00 01/26/18 13:31 Artificial Tears OU 1 drop DAILY PRN Administration DRY EYES Ertapenem 0.5 gm/ Sodium 50 mls @ 100 mls/hr 01/18/18 16:00 02/01/18 10:34 Chloride IVPB 100 mls/hr DAILY [facility]ARP[facility] Administration Protocol Dextrose 1,000 mls @ 30 mls/hr 01/31/18 10:00 02/01/18 10:34 D5w - IV Not Given ASDIR [facility] Lactobacillus Acidophilus 1 tab 01/23/18 10:00 02/01/18 10:32 Bacid - PO 1 tab DAILY HARP[facility] Administration Lidocaine 1 patch 01/17/18 14:45 02/01/18 10:33 Lidoderm Patch - TP 1 patch DAILY [facility] Administration Metoprolol Tartrate 25 mg 01/20/18 10:00 02/01/18 10:33 Lopressor - PO 25 mg BID HARPAL Administration Miscellaneous 1 each 01/17/18 22:00 01/31/18 21:17 Lidoderm Patch Removal MC 1 each DAILY@2200 HARP[facility] Administration Vancomycin HCl 125 mg 01/18/18 18:00 02/01/18 14:52 Vancomycin Oral Solution PO Not Given Q6HPO [facility] Microbiology 01/18/18 12:52 Abscess AFB Smear Concentration - Preliminary 01/18/18 12:52 Abscess Mycobacterial Culture - Preliminary 01/18/18 12:52 Abscess ADOLFO Preparation - Preliminary 01/18/18 12:52 Abscess Fungal Culture - Preliminary 01/17/18 11:40 Wound-Other Gram Stain - Final 01/17/18 11:40 Wound-Other Wound Culture - Final Escherichia Coli Proteus Mirabilis 01/18/18 12:52 Abscess Gram Stain - Final 01/18/18 12:52 Abscess Body Fluid Culture - Final Escherichia Coli Esbl Cyber Security Manager 01/18/18 12:52 Abscess Anaerobic Culture - Final 01/15/18 16:52 Blood - Peripheral Venous Blood Culture - Final NO GROWTH AFTER 5 DAYS INCUBATION 01/15/18 16:52 Blood - Peripheral Venous Blood Culture - Final NO GROWTH AFTER [address] abdomen/pelvis with contrast (01/17/2018) - Multiple surgical metallic clips again limiting evaluation of the right hemipelvis soft tissue due to beam hardening artifacts. Interval slight increase in size of previously described collection in the right hemipelvis with thick, irregular and enhancing wall. It is at the expected anatomical location of a resected pelvic kidney as per history. No gross free air or free fluid in the abdomen or pelvis. Multiple cystic densities in the pancreas for which correlation with MRI is needed. Limited visualization of the gallbladder due to motion/breathing artifact with suggestion of a sludge layering posteriorly again seen. Duplex US of RUE - No evidence of deep venous thrombosis. CT abdomen/pelvis with contrast (01/15/2018) - Small to moderate size hiatus hernia. Atelectatic changes with nodular opacities in the left lung base likely representing infiltrates for which a follow-up CT scan of the chest in one to 2 weeks is recommended. Moderate size hiatus hernia. Slightly overdistended gallbladder with suggestion of a sludge layering posteriorly. Dilated common bile duct measuring 1.3 cm multiple cystic densities in the pancreas with correlation with MRI. Bilateral atrophic kidneys. Multiple surgical metallic clips in the right hemipelvis obscuring the soft tissue details. However, there is a focal low-attenuation density in the right hemipelvis measuring 4.5 cm likely representing a collection/abscess at the site of prior right renal transplant that was resected according to the submitted clinical history. Extensive diverticulosis coli mainly in the sigmoid colon without evidence of acute diverticulitis. CXR - [id number] cardiomegaly without evidence of acute lung disease. ASSESSMENT/PLAN: Patient is a 77 year old female, previously admitted at [facility] for 144 days (s/p failed renal transplant, s/p removal), discharged AMA, as per son, brought at the ED for lethargy. #Abdominal wound: s/p IR-guided drainage of serosanguinous fluid -Fluid sent for cultures - +ESBL, +non-lactose fermenting gram negative bacilli -Repeat wound cultures -+E.coli, +Proteus -Surgery (Dr. Kelly) consulted. Recommendations appreciated. -ID (Dr. Shanks) consulted. Recommendations appreciated. -Ertapenem completed . Will discontinue. -Continue PO Vancomycin for hx of cdiff. Plan to extend for 2 weeks and then slow taper. -Probiotic therapy. -Contact isolation. -Proper wound care. #ESRD: failed renal transplant, s/p removal -Hemodialysis (MWF) -Nephrology (Dr. Winters) consulted. Recommendations appreciated. - HD today - spoke to vascular to remove shiley after HD - will still need fistula repair - monitor Hg - epogen for anemia -Vascular surgery (Dr. Neri) consulted. Recommendations appreciated. - Thrombectomy of AVF, or possible permacath insertion - procedure withheld - Removal of tri lumen catheter today #GI bleeding: s/p EGD/Colonoscopy: Hiatal hernia, Gastritis, Diverticulosis, Hemorrhoids, No active bleeding -Eliquis discontinued -Will continue to monitor H/H and GI bleeding. -Protonix drip discontinued -GI (Dr. Torres) consulted. Recommendations appreciated. -Full liquid diet -CT scan with contrast done -pending final read -Cardiology (Dr. Holden) consulted. Recommendations appreciated. -Prolonged QTc: More likely secondary to prominent U-waves than an actual QT prolongation -Would continue Beta Blockers if tolerated -Holding AC for GI bleed #Altered mental status: improving -likely acute metabolic toxic encephalopathy from renal failure and infection. -Speech and swallow evaluation. Recommendations appreciated: -May advance to chopped diet. -Maintain head of bed elevated with chin to neutral or flexed during mealtime and for at least an hour after meals. -Feed slowly, 1/2 teaspoon at a time. -Watch for swallow reflex before next bite/sip is given. -Inform Nursing if patient coughs, clears throat or sounds wet and gurgly during or after meals. #RLE DVT -Duplex US of RUE - No evidence of deep venous thrombosis. -SCDs applied -Eliquis 2.5 mg BID put on hold in setting of GI bleed. -Will monitor H/H. #Atrial fibrillation -Eliquis 2.5 mg BID held. -Metoprolol (Lopressor) 25mg BID. #Anemia -likely 2/2 iron deficiency and ESRD -Epogen given. #FEN -D5W at 30ml/hr for hypoglycemia -Electrolytes wnl, routine bmp monitoring -Full liquid diet. #Prophylaxis -Hold Eliquis 2.5 mg BID due to GI bleed. -SCDs to both legs #Disposition -Declined for transfer by multiple tertiary care centers. -Son wants to bring patient home once medically optimized. Visit type - Emergency Visit Emergency Visit: Yes ED Registration Date: 01/16/18 Care time: The patient presented to the Emergency Department on the above date and was hospitalized for further evaluation of their emergent condition. - New Patient This patient is new to me today: Yes Date on this admission: 02/01/18 - Critical Care Critical Care patient: No
[2018-02-01] MEDS: ACETAMINOPHEN 325 MG TABLET (FP) PO PRN (17:34)
[2018-02-01 17:42] LABS: ANION GAP 10 MMOL/L (8-16); BLOOD UREA NITROGEN 16 mg/dL (7-18); CALCIUM 8.3 mg/dL (8.5-10.1); CHLORIDE 100 mmol/L (98-107); CO2 28 mmol/L (21-32); CREATININE 3.1 mg/dL (0.55-1.3); GLUCOSE,RANDOM 77 mg/dL (74-106); POTASSIUM 3.8 mmol/L (3.5-5.1); SODIUM 138 mmol/L (136-145)
[2018-02-01] MEDS: LIDOCAINE PATCH REMOVAL MC SCH (22:12)
[2018-02-02] MEDS: ACETAMINOPHEN 325 MG TABLET (FP) PO PRN (01:07)
[2018-02-02] MEDS: VANCOMYCIN 250 MG/5 ML ORAL SOLUTION PO SCH ×4 (05:33→23:25)
--- NOTE | 2018-02-02 08:26 | PN ---
Progress Note, Physician Chief Complaint: Covering for Dr. Ro per the staff and record - no further episodes of GI bleed - Current Medication List Current Medications: Active Medications Acetaminophen (Tylenol -) 650 mg PO Q6H PRN PRN Reason: Fever Last Admin: 02/02/18 01:07 Dose: 650 mg Acetaminophen (Ofirmev Injection -) 1,000 mg IVPB Q6H PRN PRN Reason: PAIN Artificial Tears (Artificial Tears) 1 drop OU DAILY PRN PRN Reason: DRY EYES Last Admin: 01/26/18 13:31 Dose: 1 drop Dextrose (D5w -) 1,000 mls @ 30 mls/hr IV ASDIR [facility] Last Admin: 02/01/18 10:34 Dose: Not Given Lactobacillus Acidophilus (Bacid -) 1 tab PO DAILY [facility] Last Admin: 02/01/18 10:32 Dose: 1 tab Lidocaine (Lidoderm Patch -) 1 patch TP DAILY [facility] Last Admin: 02/01/18 10:33 Dose: 1 patch Metoprolol Tartrate (Lopressor -) 25 mg PO BID [facility] Last Admin: 02/01/18 22:12 Dose: 25 mg Miscellaneous (Lidoderm Patch Removal) 1 each MC DAILY@2200 [facility] Last Admin: 02/01/18 22:12 Dose: 1 each Vancomycin HCl (Vancomycin Oral Solution) 125 mg PO Q6HPO [facility] Last Admin: 02/02/18 05:33 Dose: 125 mg - Objective Vital Signs: Vital Signs Temperature 97.7 F 02/02/18 02:14 Pulse Rate 68 02/02/18 02:14 Respiratory Rate 18 02/02/18 02:14 Blood Pressure 113/67 02/02/18 02:14 O2 Sat by Pulse Oximetry (%) 94 L 02/01/18 21:00 Constitutional: Yes: Well Nourished, No Distress, Calm Eyes: Yes: WNL HENT: Yes: WNL Neck: Yes: WNL Cardiovascular: Yes: WNL, Regular Rate and Rhythm Respiratory: Yes: WNL, Regular, CTA Bilaterally Gastrointestinal: Yes: WNL, Normal Bowel Sounds Musculoskeletal: Yes: WNL Extremities: Yes: WNL Edema: No Labs: CBC, BMP 02/01/18 08:25 02/01/18 16:20 INR, PTT INR 1.50 (0.83-1.09) H 01/31/18 06:00 Problem List - Problems (1) GI bleed Assessment/Plan: S/p egd / colonoscopy etiology of her GI bleed appears to be secondary to a diverticular bleed. H/H noted - no clinical sign of recurrent active GI bleed at this time. REC: transfuse PRBC trend h/h qd while hospitalized c/w PPI therapy for gastritis avoid nsaid Code(s): K92.2 - GASTROINTESTINAL HEMORRHAGE, UNSPECIFIED
[2018-02-02] MEDS ORDERED: DEXTROSE 50%-WATER - 25 GM/50 ML VIAL IVPUSH ONE (08:54)
[2018-02-02 08:58] LABS: EOS % 1.2 % (0-4.5); HEMATOCRIT 21.3 % (32.4-45.2); HEMOGLOBIN 7.1 GM/dL (10.7-15.3); MCH 31.7 pg (25.7-33.7); MCHC 33.3 g/dl (32.0-36.0); MEAN CELL VOLUME 95.2 fl (80-96); MEAN PLT VOLUME 9.6 fl (7.5-11.1); NEUT % 64.8 % (42.8-82.8); PLATELET COUNT 149 K/MM3 (134-434); RBC 2.24 M/mm3 (3.60-5.2); RDW 17.4 % (11.6-15.6); WHITE BLOOD COUNT 6.5 K/mm3 (4.0-10.0)
--- NOTE | 2018-02-02 09:08 | PN ---
Teaching Attending Note Name of Resident: Marisela Simmons ATTENDING PHYSICIAN STATEMENT I saw and evaluated the patient. I reviewed the resident's note and discussed the case with the resident. I agree with the resident's findings and plan as documented with exceptions below. SUBJECTIVE: Patient seen and examined. Says "good morning" but then no further response. Denies any pain. OBJECTIVE: Vital Signs Period Temp Pulse Resp BP Sys/Franco Pulse Ox Last 24 Hr 97.5 F-97.7 F 56-73 17-20 84-133/41-78 94-99 Intake & Output 01/30/18 01/31/18 02/01/18 02/02/18 23:59 23:59 23:59 23:59 Intake Total 023 491 8792 210 Balance 102 303 3240 210 Weight 107 lb 109 lb General:lying in bed in no acute distress Chest: Decreased effort, no rales or wheezing Abdomen:soft, surgical wound clean, no voluntary or involuntary guarding or rigidity Positive bowel sounds Extremities: no edema Active Medications Acetaminophen (Tylenol -) 650 mg PO Q6H PRN PRN Reason: Fever Last Admin: 02/02/18 01:07 Dose: 650 mg Acetaminophen (Ofirmev Injection -) 1,000 mg IVPB Q6H PRN PRN Reason: PAIN Artificial Tears (Artificial Tears) 1 drop OU DAILY PRN PRN Reason: DRY EYES Last Admin: 01/26/18 13:31 Dose: 1 drop Dextrose (D5w -) 1,000 mls @ 30 mls/hr IV ASDIR [facility] Last Admin: 02/01/18 10:34 Dose: Not Given Lactobacillus Acidophilus (Bacid -) 1 tab PO DAILY [facility] Last Admin: 02/01/18 10:32 Dose: 1 tab Lidocaine (Lidoderm Patch -) 1 patch TP DAILY [facility] Last Admin: 02/01/18 10:33 Dose: 1 patch Metoprolol Tartrate (Lopressor -) 25 mg PO BID [facility] Last Admin: 02/01/18 22:12 Dose: 25 mg Miscellaneous (Lidoderm Patch Removal) 1 each MC DAILY@2200 [facility] Last Admin: 02/01/18 22:12 Dose: 1 each Vancomycin HCl (Vancomycin Oral Solution) 125 mg PO Q6HPO [facility] Last Admin: 02/02/18 05:33 Dose: 125 mg Laboratory Results - last 24 hr 02/01/18 02/01/18 02/02/18 16:20 16:38 00:24 WBC RBC Hgb Hct MCV MCH MCHC RDW Plt Count MPV Absolute Neuts (auto) Neutrophils % Lymphocytes % Monocytes % Eosinophils % Basophils % Nucleated RBC % Sodium 138 Potassium 3.8 Chloride 100 Carbon Dioxide 28 Anion Gap 10 BUN 16 Creatinine 3.1 H Creat Clearance w eGFR 14.53 POC Glucometer 68 67 Random Glucose 77 Calcium 8.3 L 02/02/18 02/02/18 08:10 08:44 WBC 6.5 RBC 2.24 L Hgb 7.1 L Hct 21.3 L D MCV 95.2 MCH 31.7 MCHC 33.3 RDW 17.4 H Plt Count 149 D MPV 9.6 D Absolute Neuts (auto) 4.2 Neutrophils % 64.8 Lymphocytes % 26.0 Monocytes % 7.0 Eosinophils % 1.2 Basophils % 1.0 Nucleated RBC % 0 Sodium Potassium Chloride Carbon Dioxide Anion Gap BUN Creatinine Creat Clearance w eGFR POC Glucometer 59 Random Glucose Calcium Microbiology 01/28/18 14:25 Blood - Pre-Dialysis Blood Culture - Preliminary NO GROWTH OBTAINED AFTER 96 HOURS, INCUBATION TO CONTINUE FOR 1 DAYS. 01/28/18 15:00 Blood - Pre-Dialysis Blood Culture - Preliminary NO GROWTH OBTAINED AFTER 96 HOURS, INCUBATION TO CONTINUE FOR 1 DAYS. 01/18/18 12:52 Abscess AFB Smear Concentration - Final 01/18/18 12:52 Abscess Mycobacterial Culture - Preliminary 01/18/18 12:52 Abscess ADOLFO Preparation - Preliminary 01/18/18 12:52 Abscess Fungal Culture - Preliminary 01/17/18 11:40 Wound-Other Gram Stain - Final 01/17/18 11:40 Wound-Other Wound Culture - Final Escherichia Coli Proteus Mirabilis 01/18/18 12:52 Abscess Gram Stain - Final 01/18/18 12:52 Abscess Body Fluid Culture - Final Escherichia Coli Esbl Security Consultant 01/18/18 12:52 Abscess Anaerobic Culture - Final 01/15/18 16:52 Blood - Peripheral Venous Blood Culture - Final NO GROWTH AFTER 5 DAYS INCUBATION 01/15/18 16:52 Blood - Peripheral Venous Blood Culture - Final NO GROWTH AFTER 5 DAYS INCUBATION 01/15/18 16:25 Abdomen Gram Stain - Final 01/15/18 16:25 Abdomen Wound Culture - Final Escherichia Coli Esbl Security Consultant Escherichia Coli Esbl Security Consultant#2 Proteus Mirabilis 01/15/18 16:25 Urine - Urine German Urine Culture - Final Escherichia Coli Esbl Security Consultant ASSESSMENT AND PLAN: 77 yof with reportedly prolonged stay at [facility] for PNA, cdiff (requiring fecal transplant), 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 -Prolonged QTc Plan: EGD/colonscopy results noted. No further bleed overnight. h/h dropped this AM, but no gross evidence of bleed or hemodynamic instability. Repeat h/h. Follow up BMP. Follow up CT results. Transfusion +/- HD accordingly. Shiley clogged removed. s/p 2 units PRBC 01/30 Off PPI drip. Discuss with dr. Neri for additional HD access as indicated. Poor po intake, recurrent hypoglycemia, Continue D5w at 30 cc/hr. encourage PO intake. ID input noted. Ertapenem day . D/c today. PO vanco q6hy x 2 weeks then slow taper. Discussed with Dr. Gamez, no concerns reported on abscessogram, BIJU drain removed accordingly, no additional testing indicated. Afebrile, normal WBC, hemodynamics stable. Surgery input noted. Cardiology input appreciated. Patient with h/o splenic infarcts, also Afib and RLE at [facility]. Coumadin was offered but son declined and wanted his mother on eliquis. Eliquis on hold as above, will address based on clinical course. Recurrent bleed and severe anemia concerns on AC in the past, poor candidate for care home AC. Continue lopressor 25 mg BID as tolerated. Avoid psychotropics given QTc > 500. Psych input if concerns of agitation or non -coperation noted. DVTPPX, SCDs in bed while eliquis on hold. no DVT on current exam, CT A/P with no current splenic concerns. Continuation of eliquis risks outweigh benefits at this stage. Dispo planning on hold given GIB and acute anemia concerns. (Son adamantly declined transfer to [facility] on admission. Declined for transfer by multiple tertiary care centers including [facility], [facility], [facility]. Records from [facility] have been reviewed in detail, prolonged hospital stay with transplant nephrectomy 11/05, course complicated by afib/wide complex tachycardia (family declined coumadin, was on eliquis), also severe anemia (Hb 5.6 requiring multiple transfusion), declined PEG, was seen by palliative care. Found on fluid collection on CT A/p in 01/07, plan was for CT with contrast and IR guided aspiration as the last documentation. She was also planned for PICC, also reported MDR E. Coli, was on meropenem with HD for the same. Eliquis was discontinued given her anemia, fluid collection and plan for intervention.)
[2018-02-02 09:17] LABS: ALBUMIN 1.8 g/dl (3.4-5.0); ALK PHOS 127 U/L (45-117); ANION GAP 7 MMOL/L (8-16); BILIRUBIN,TOTAL 0.6 mg/dL (0.2-1); BLOOD UREA NITROGEN 16 mg/dL (7-18); CALCIUM 8.2 mg/dL (8.5-10.1); CHLORIDE 102 mmol/L (98-107); CO2 27 mmol/L (21-32); CREATININE 3.3 mg/dL (0.55-1.3); GLUCOSE,RANDOM 55 mg/dL (74-106); MAGNESIUM 1.6 mg/dL (1.8-2.4); PHOSPHOROUS 4.4 mg/dL (2.5-4.9); POTASSIUM 3.9 mmol/L (3.5-5.1); SGOT/AST 11 U/L (15-37); SGPT/ALT < 6 U/L (13-61); SODIUM 135 mmol/L (136-145)
--- NOTE | 2018-02-02 09:43 | PN ---
Physical Exam: SUBJECTIVE: Patient seen and examined at bedside this morning. Patient remained hemodynamically stable. BGM has been at the 60s overnight on D5W. BGM this morning is 55, D50 given. No rectal bleeding noted overnight. Patient reported to have poor appetite. Otherwise, she's alert and awake today, with no complaints of pain. OBJECTIVE: Vital Signs Period Temp Pulse Resp BP Sys/Franco Pulse Ox Last 24 Hr 97.5 F-97.7 F 56-73 17-20 84-133/41-78 94-99 GENERAL: Lying in bed, in no acute distress. LUNGS: Breath sounds clear to auscultation bilaterally. HEART: Regular rate and rhythm, S1, S2 without murmur, rub or gallop. ABDOMEN: Soft, nontender, nondistended, normoactive bowel sounds, +open wound on the RLQ, clean, dry, intact, no purulent discharge. EXTREMITIES: palpable DP pulses bilaterally, warm, well-perfused, no edema. SKIN: Warm, dry, normal turgor Laboratory Results - last 24 hr 02/01/18 02/01/18 02/02/18 16:20 16:38 00:24 WBC RBC Hgb Hct MCV MCH MCHC RDW Plt Count MPV Absolute Neuts (auto) Neutrophils % Lymphocytes % Monocytes % Eosinophils % Basophils % Nucleated RBC % Sodium 138 Potassium 3.8 Chloride 100 Carbon Dioxide 28 Anion Gap 10 BUN 16 Creatinine 3.1 H Creat Clearance w eGFR 14.53 POC Glucometer 68 67 Random Glucose 77 Calcium 8.3 L Phosphorus Magnesium Total Bilirubin AST ALT Alkaline Phosphatase Total Protein Albumin 02/02/18 02/02/18 02/02/18 08:10 08:10 08:44 WBC 6.5 RBC 2.24 L Hgb 7.1 L Hct 21.3 L D MCV 95.2 MCH 31.7 MCHC 33.3 RDW 17.4 H Plt Count 149 D MPV 9.6 D Absolute Neuts (auto) 4.2 Neutrophils % 64.8 Lymphocytes % 26.0 Monocytes % 7.0 Eosinophils % 1.2 Basophils % 1.0 Nucleated RBC % 0 Sodium 135 L Potassium 3.9 Chloride 102 Carbon Dioxide 27 Anion Gap 7 L BUN 16 Creatinine 3.3 H Creat Clearance w eGFR 13.52 POC Glucometer 59 Random Glucose 55 L Calcium 8.2 L Phosphorus 4.4 Magnesium 1.6 L Total Bilirubin 0.6 AST 11 L ALT < 6 L Alkaline Phosphatase 127 H Total Protein 6.0 L Albumin 1.8 L Active Medications Generic Name Dose Route Start Last Admin Trade Name Berta PRN Reason Stop Dose Admin Acetaminophen 650 mg 01/18/18 17:48 02/02/18 01:07 Tylenol - PO 650 mg Q6H PRN Administration Fever Acetaminophen 1,000 mg 02/01/18 10:57 Ofirmev Injection - IVPB Q6H PRN PAIN Artificial Tears 1 drop 01/17/18 10:00 01/26/18 13:31 Artificial Tears OU 1 drop DAILY PRN Administration DRY EYES Dextrose 1,000 mls @ 30 mls/hr 01/31/18 10:00 02/01/18 10:34 D5w - IV Not Given ASDIR HARPAL Lactobacillus Acidophilus 1 tab 01/23/18 10:00 02/01/18 10:32 Bacid - PO 1 tab DAILY HARPAL Administration Lidocaine 1 patch 01/17/18 14:45 02/01/18 10:33 Lidoderm Patch - TP 1 patch DAILY HARPAL Administration Metoprolol Tartrate 25 mg 01/20/18 10:00 02/01/18 22:12 Lopressor - PO 25 mg BID HARPAL Administration Miscellaneous 1 each 01/17/18 22:00 02/01/18 22:12 Lidoderm Patch Removal MC 1 each DAILY@2200 HARPAL Administration Vancomycin HCl 125 mg 01/18/18 18:00 02/02/18 05:33 Vancomycin Oral Solution PO 125 mg Q6HPO HARPAL Administration Microbiology 01/18/18 12:52 Abscess AFB Smear Concentration - Preliminary 01/18/18 12:52 Abscess Mycobacterial Culture - Preliminary 01/18/18 12:52 Abscess ADOLFO Preparation - Preliminary 01/18/18 12:52 Abscess Fungal Culture - Preliminary 01/17/18 11:40 Wound-Other Gram Stain - Final 01/17/18 11:40 Wound-Other Wound Culture - Final Escherichia Coli Proteus Mirabilis 01/18/18 12:52 Abscess Gram Stain - Final 01/18/18 12:52 Abscess Body Fluid Culture - Final Escherichia Coli Esbl Tissue Technician 01/18/18 12:52 Abscess Anaerobic Culture - Final 01/15/18 16:52 Blood - Peripheral Venous Blood Culture - Final NO GROWTH AFTER 5 DAYS INCUBATION 01/15/18 16:52 Blood - Peripheral Venous Blood Culture - Final NO GROWTH AFTER [address] abdomen/pelvis with contrast (01/17/2018) - Multiple surgical metallic clips again limiting evaluation of the right hemipelvis soft tissue due to beam hardening artifacts. Interval slight increase in size of previously described collection in the right hemipelvis with thick, irregular and enhancing wall. It is at the expected anatomical location of a resected pelvic kidney as per history. No gross free air or free fluid in the abdomen or pelvis. Multiple cystic densities in the pancreas for which correlation with MRI is needed. Limited visualization of the gallbladder due to motion/breathing artifact with suggestion of a sludge layering posteriorly again seen. Duplex US of RUE - No evidence of deep venous thrombosis. CT abdomen/pelvis with contrast (01/15/2018) - Small to moderate size hiatus hernia. Atelectatic changes with nodular opacities in the left lung base likely representing infiltrates for which a follow-up CT scan of the chest in one to 2 weeks is recommended. Moderate size hiatus hernia. Slightly overdistended gallbladder with suggestion of a sludge layering posteriorly. Dilated common bile duct measuring 1.3 cm multiple cystic densities in the pancreas with correlation with MRI. Bilateral atrophic kidneys. Multiple surgical metallic clips in the right hemipelvis obscuring the soft tissue details. However, there is a focal low-attenuation density in the right hemipelvis measuring 4.5 cm likely representing a collection/abscess at the site of prior right renal transplant that was resected according to the submitted clinical history. Extensive diverticulosis coli mainly in the sigmoid colon without evidence of acute diverticulitis. CXR - [id number] cardiomegaly without evidence of acute lung disease. ASSESSMENT/PLAN: Patient is a 77 year old female, previously admitted at [facility] for 144 days (s/p failed renal transplant, s/p removal), discharged AMA, as per son, brought at the ED for lethargy. #Abdominal wound: s/p IR-guided drainage of serosanguinous fluid -Fluid sent for cultures - +ESBL, +non-lactose fermenting gram negative bacilli -Repeat wound cultures -+E.coli, +Proteus -ID (Dr. Shanks) consulted. Recommendations appreciated. -Ertapenem completed . Will discontinue. -Continue PO Vancomycin for hx of cdiff. Plan to extend for 2 weeks and then slow taper. -Probiotic therapy. -Contact isolation. -Proper wound care. #ESRD: failed renal transplant, s/p removal -Hemodialysis (MWF) -Nephrology (Dr. Winters) consulted. Recommendations appreciated. - HD yesterday incomplete as line clotted. - Monitor H/H and bmp - BMP wnl, HD not indicated today. Will dialyze on Sunday. - will still need fistula repair - epogen for anemia -Vascular surgery (Dr. Neri) consulted. Recommendations appreciated. - Thrombectomy of AVF, or possible permacath insertion - procedure withheld - Tri lumen catheter removed yesterday #GI bleeding: no active bleeding overnight -s/p EGD/Colonoscopy: Hiatal hernia, Gastritis, Diverticulosis, Hemorrhoids, No active bleeding -Will continue to monitor H/H and GI bleeding. -Will transfuse as needed. -Protonix drip discontinued -GI (Dr. Torres) consulted. Recommendations appreciated. -Full liquid diet -CTA of abdomen and pelvis done -pending final read -Cardiology (Dr. Holden) consulted. Recommendations appreciated. -Prolonged QTc: More likely secondary to prominent U-waves than an actual QT prolongation -Would continue Beta Blockers if tolerated -Holding AC for GI bleed #Hypoglycemia: BGM today at 55, at 60s overnight -D50 IVpush ordered. -On D5W at 30ml/hr -Encouraged patient to increase PO intake. -on full liquid diet #Altered mental status: ?at baseline from when she came in at the hospital -likely acute metabolic toxic encephalopathy from renal failure and infection. -Speech and swallow evaluation. Recommendations appreciated: -May advance to chopped diet. -Maintain head of bed elevated with chin to neutral or flexed during mealtime and for at least an hour after meals. -Feed slowly, 1/2 teaspoon at a time. -Watch for swallow reflex before next bite/sip is given. -Inform Nursing if patient coughs, clears throat or sounds wet and gurgly during or after meals. #Hx of RLE DVT -Duplex US of RUE - No evidence of deep venous thrombosis. -SCDs applied -Eliquis 2.5 mg BID put on hold in setting of GI bleed. -Will monitor H/H. #Atrial fibrillation -Eliquis 2.5 mg BID held. -Metoprolol (Lopressor) 25mg BID. #Anemia -likely 2/2 iron deficiency and ESRD -Epogen given. #FEN -D5W at 30ml/hr for hypoglycemia -Electrolytes wnl, routine bmp monitoring -Full liquid diet. #Prophylaxis -Hold Eliquis 2.5 mg BID due to GI bleed. -SCDs to both legs #Disposition -Declined for transfer by multiple tertiary care centers. -Son wants to bring patient home once medically optimized. Visit type - Emergency Visit Emergency Visit: Yes ED Registration Date: 01/16/18 Care time: The patient presented to the Emergency Department on the above date and was hospitalized for further evaluation of their emergent condition. - New Patient This patient is new to me today: Yes Date on this admission: 02/02/18 - Critical Care Critical Care patient: No
[2018-02-02] MEDS: LACTOBACILLUS ACIDOPHILUS 1 TABLET PO SCH (10:39)
[2018-02-02] MEDS: LIDOCAINE 5% TOPICAL PATCH TP SCH (10:39)
[2018-02-02] MEDS: METOPROLOL TARTRATE 25 MG TABLET (FP) PO SCH ×2 (10:40→21:18)
[2018-02-02] MEDS: DEXTROSE 5%-WATER - 1,000 ML IV SCH (10:41)
--- NOTE | 2018-02-02 13:33 | PN ---
Progress Note (short form) - Note Progress Note: RENAL Pt is awake and alert family by bedside Last Vital Signs Temp Pulse Resp BP Pulse Ox 97.5 F L 68 18 127/74 94 L 02/02/18 09:37 02/02/18 09:37 02/02/18 09:37 02/02/18 09:37 02/01/18 21:00 lungs clear anteriorly cvs s1s2 rr abd soft ext no edema neuro a+o CBC, BMP 02/02/18 08:10 02/02/18 08:10
--- NOTE | 2018-02-02 13:36 | PN ---
Progress Note (short form) - Note Progress Note: RENAL Pt is awake and alert family by bedside Last Vital Signs Temp Pulse Resp BP Pulse Ox 97.5 F L 68 18 127/74 94 L 02/02/18 09:37 02/02/18 09:37 02/02/18 09:37 02/02/18 09:37 02/01/18 21:00 lungs clear anteriorly cvs s1s2 rr abd soft ext no edema neuro a+o CBC, BMP 02/02/18 08:10 02/02/18 08:10 Impression 1. ESRD- no acute indication for HDnow 2. failed kidney transplant 3. hx DM 4. Hx HTN 5. altered mental status 6. post op infection 7. c.diff 8. a-fib 9. failure to thrive 10.malnutrition 11. anemia 12. GI bleed Plan - would repeat cbc to rule out lab error. If hgb dropping would insert a trialysis catheter so she can be transfused one unit. I would not dialyze however until Sunday 02/04 - cont wound care - epogen for anemia - abx per primary team MV
[2018-02-02 14:19] LABS: HEMATOCRIT 24.5 % (32.4-45.2); HEMOGLOBIN 8.2 GM/dL (10.7-15.3); MCH 32.1 pg (25.7-33.7); MCHC 33.3 g/dl (32.0-36.0); MEAN CELL VOLUME 96.3 fl (80-96); MEAN PLT VOLUME 9.4 fl (7.5-11.1); PLATELET COUNT 169 K/MM3 (134-434); RBC 2.54 M/mm3 (3.60-5.2); RDW 18.9 % (11.6-15.6); WHITE BLOOD COUNT 8.2 K/mm3 (4.0-10.0)
--- NOTE | 2018-02-02 16:32 | PN ---
Progress Note (short form) - Note Progress Note: Vascular Surgery Pt seen and examined. Left femoral trialysis cath placed. cAn transfuse PRBC Can do HD on sunday Can place permacath on sunday. Guidewire removed. all ports flushed. Can use cath for HD Simeon Neri DO
[2018-02-02] MEDS: LIDOCAINE PATCH REMOVAL MC SCH (21:18)
[2018-02-03] MEDS: VANCOMYCIN 250 MG/5 ML ORAL SOLUTION PO SCH ×5 (05:11→23:25)
[2018-02-03 09:28] LABS: EOS % 1.7 % (0-4.5); HEMATOCRIT 22.2 % (32.4-45.2); HEMOGLOBIN 7.7 GM/dL (10.7-15.3); LYMPH % 21.8 % (8-40); MCH 32.1 pg (25.7-33.7); MCHC 34.4 g/dl (32.0-36.0); MEAN CELL VOLUME 93.3 fl (80-96); MEAN PLT VOLUME 9.6 fl (7.5-11.1); MONO % 8.5 % (3.8-10.2); PLATELET COUNT 167 K/MM3 (134-434); RBC 2.38 M/mm3 (3.60-5.2); RDW 17.3 % (11.6-15.6); WHITE BLOOD COUNT 7.1 K/mm3 (4.0-10.0)
[2018-02-03] MEDS: LACTOBACILLUS ACIDOPHILUS 1 TABLET PO SCH (10:28)
[2018-02-03] MEDS: DEXTROSE 5%-WATER - 1,000 ML IV SCH (10:29)
[2018-02-03] MEDS: LIDOCAINE 5% TOPICAL PATCH TP SCH (10:29)
[2018-02-03] MEDS: METOPROLOL TARTRATE 25 MG TABLET (FP) PO SCH ×2 (10:30→21:51)
--- NOTE | 2018-02-03 11:14 | PN ---
Progress Note (short form) - Note Progress Note: RENAL pt is awake appears comfortable Last Vital Signs Temp Pulse Resp BP Pulse Ox 97.3 F L 63 18 127/60 96 02/03/18 06:00 02/03/18 06:00 02/03/18 06:00 02/03/18 06:00 02/02/18 21:00 lungs clear cvs s1s2 rr abd soft ext no edema neuro alert CBC, BMP 02/03/18 08:30 02/02/18 08:10 Current Medications Generic Name Dose Route Start Last Admin Trade Name Freq PRN Reason Stop Dose Admin Acetaminophen 650 mg 01/18/18 17:48 02/02/18 01:07 Tylenol - PO 650 mg Q6H PRN Administration Fever Acetaminophen 1,000 mg 02/01/18 10:57 Ofirmev Injection - IVPB Q6H PRN PAIN Artificial Tears 1 drop 01/17/18 10:00 01/26/18 13:31 Artificial Tears OU 1 drop DAILY PRN Administration DRY EYES Dextrose 1,000 mls @ 30 mls/hr 01/31/18 10:00 02/03/18 10:29 D5w - IV 30 mls/hr ASDIR HARPAL Administration Lactobacillus Acidophilus 1 tab 01/23/18 10:00 02/03/18 10:28 Bacid - PO 1 tab DAILY HARPAL Administration Lidocaine 1 patch 01/17/18 14:45 02/03/18 10:29 Lidoderm Patch - TP 1 patch DAILY HARAPL Administration Metoprolol Tartrate 25 mg 01/20/18 10:00 02/03/18 10:30 Lopressor - PO 25 mg BID HARPAL Administration Miscellaneous 1 each 01/17/18 22:00 02/02/18 21:18 Lidoderm Patch Removal MC 1 each DAILY@2200 HARPAL Administration Vancomycin HCl 125 mg 01/18/18 18:00 02/03/18 05:13 Vancomycin Oral Solution PO Not Given Q6HPO HARPAL Impression 1. ESRD- no acute indication for HDnow 2. failed kidney transplant 3. hx DM 4. Hx HTN 5. altered mental status 6. post op infection 7. c.diff 8. a-fib 9. failure to thrive 10.malnutrition 11. anemia 12. GI bleed Plan -hd tomorrow -give ddavp if not already given for bleeding 0.3 mg per kg - cont wound care - epogen for anemia - abx per primary team MV
[2018-02-03] MEDS ORDERED: EPOETIN ALFA 3,000 UNIT/1 ML ML SQ ONE (11:17)
--- NOTE | 2018-02-03 11:23 | PN ---
Physical Exam: SUBJECTIVE: Patient seen and examined, opens eyes, nods to few questions, occasional verbal responses. OBJECTIVE: Vital Signs Period Temp Pulse Resp BP Sys/Franco Pulse Ox Last 24 Hr 97.3 F-97.7 F 59-70 16-20 108-151/43-84 96 GENERAL: lying in bed in no acute distress CVS;S1s2 irregular Chest: poor effort, no rales or wheezing appreciated, limited exam Abdomen:soft, RLQ wound clean, ND, no voluntary or involuntary guarding or rigidity, positive bowel sounds Extremities: no edema Laboratory Results - last 24 hr 01/30/18 02/02/18 02/02/18 09:40 09:55 13:40 WBC 8.2 RBC 2.54 L Hgb 8.2 L Hct 24.5 L D MCV 96.3 H MCH 32.1 MCHC 33.3 RDW 18.9 H Plt Count 169 MPV 9.4 Absolute Neuts (auto) Neutrophils % Lymphocytes % Monocytes % Eosinophils % Basophils % Nucleated RBC % POC Glucometer Blood Type O POSITIVE O POSITIVE Antibody Screen Positive H Positive H Antibody Identification Anti-lc Anti-c Antigen Identification c Antigen - NEGATIVE No Result Required. Crossmatch See Detail See Detail 02/02/18 02/03/18 16:56 08:30 WBC 7.1 RBC 2.38 L Hgb 7.7 L Hct 22.2 L MCV 93.3 MCH 32.1 MCHC 34.4 RDW 17.3 H Plt Count 167 MPV 9.6 Absolute Neuts (auto) 4.7 Neutrophils % 67.0 Lymphocytes % 21.8 Monocytes % 8.5 Eosinophils % 1.7 Basophils % 1.0 Nucleated RBC % 0 POC Glucometer 70 Blood Type Antibody Screen Antibody Identification Antigen Identification Crossmatch Active Medications Generic Name Dose Route Start Last Admin Trade Name Freq PRN Reason Stop Dose Admin Acetaminophen 650 mg 01/18/18 17:48 02/02/18 01:07 Tylenol - PO 650 mg Q6H PRN Administration Fever Acetaminophen 1,000 mg 02/01/18 10:57 Ofirmev Injection - IVPB Q6H PRN PAIN Artificial Tears 1 drop 01/17/18 10:00 01/26/18 13:31 Artificial Tears OU 1 drop DAILY PRN Administration DRY EYES Epoetin Abe 5,000 unit 02/03/18 11:17 Procrit - SQ 02/03/18 11:18 ONCE ONE Dextrose 1,000 mls @ 30 mls/hr 01/31/18 10:00 02/03/18 10:29 D5w - IV 30 mls/hr ASDIR HARPAL Administration Sodium Chloride 250 mls @ 3,000 mls/hr 02/03/18 11:17 Normal Saline - IV 02/04/18 11:17 PRN PRN Hypotension during Dialysis Lactobacillus Acidophilus 1 tab 01/23/18 10:00 02/03/18 10:28 Bacid - PO 1 tab DAILY HARPAL Administration Lidocaine 1 patch 01/17/18 14:45 02/03/18 10:29 Lidoderm Patch - TP 1 patch DAILY HARPAL Administration Metoprolol Tartrate 25 mg 01/20/18 10:00 02/03/18 10:30 Lopressor - PO 25 mg BID HARPAL Administration Miscellaneous 1 each 01/17/18 22:00 02/02/18 21:18 Lidoderm Patch Removal MC 1 each DAILY@2200 HARPAL Administration Vancomycin HCl 125 mg 01/18/18 18:00 02/03/18 05:13 Vancomycin Oral Solution PO Not Given Q6HPO HARPAL ASSESSMENT/PLAN: 77 yof with reportedly prolonged stay at [facility] for PNA, cdiff (requiring fecal transplant), 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 -Prolonged QTc Plan: EGD/colonscopy results noted. s/p 1 U pRBC on 02/02 (2 units on 01/30) recurrent anemia with no gross evidence of bleed or hemodynamic instability currently. Suspect multifactorial. Transfuse 1 unit PRBC. Hold off ddavp for now. CT A/P prelim results noted. renal input noted. Plan for HD tomorrow. vascular surgery input appreciated, s/p Dejon on 02/02. Plan for permacath on sunday, will follow up. Off PPI drip. ID input noted. Ertapenem day . stopped 02/03. PO vanco q6hy x 2 weeks day 05/06 then slow taper. Discussed with Dr. Gamez, no concerns reported on abscessogram, BIJU drain removed accordingly, no additional testing indicated. Afebrile, normal WBC, hemodynamics stable. Surgery input noted. Cardiology input appreciated. Continue lopressor 25 mg BID as tolerated. Avoid psychotropics given QTc > 500. Psych input if concerns of agitation or non -coperation noted. Patient with h/o splenic infarcts, also Afib and RLE at [facility]. Coumadin was offered but son declined and wanted his mother on eliquis. Eliquis on hold as above, will address based on clinical course. Recurrent bleed and severe anemia concerns on AC in the past, poor candidate for jail AC. DVTPPX, SCDs in bed while eliquis on hold. no DVT on current exam, CT A/P with no current splenic concerns. Continuation of eliquis risks outweigh benefits at this stage. Dispo planning on hold given renal access and anemia concerns. Recurrent hypoglycemia with poor oral intake and ongoing refusal to care. Palliative care consult to continue to address overall goals of care. (Son adamantly declined transfer to [facility] on admission. Declined for transfer by multiple tertiary care centers including [facility], [facility], [facility]. Records from [facility] have been reviewed in detail, prolonged hospital stay with transplant nephrectomy 11/05, course complicated by afib/wide complex tachycardia (family declined coumadin, was on eliquis), also severe anemia (Hb 5.6 requiring multiple transfusion), declined PEG, was seen by palliative care. Found on fluid collection on CT A/p in 01/07, plan was for CT with contrast and IR guided aspiration as the last documentation. She was also planned for PICC, also reported MDR E. Coli, was on meropenem with HD for the same. Eliquis was discontinued given her anemia, fluid collection and plan for intervention.) Visit type - Emergency Visit Emergency Visit: Yes ED Registration Date: 01/16/18 Care time: The patient presented to the Emergency Department on the above date and was hospitalized for further evaluation of their emergent condition. - New Patient This patient is new to me today: No - Critical Care Critical Care patient: No - Discharge Referral Referred to [facility] No
[2018-02-03] MEDS: ACETAMINOPHEN 325 MG TABLET (FP) PO PRN (15:28)
[2018-02-03] MEDS ORDERED: SODIUM CHLORIDE 250 ML IV PRN (16:13)
[2018-02-03] MEDS: LIDOCAINE PATCH REMOVAL MC SCH (21:51)
[2018-02-04] MEDS: VANCOMYCIN 250 MG/5 ML ORAL SOLUTION PO SCH ×4 (06:07→23:42)
--- NOTE | 2018-02-04 08:17 | PN ---
Teaching Attending Note Name of Resident: Marisela Simmons ATTENDING PHYSICIAN STATEMENT I saw and evaluated the patient. I reviewed the resident's note and discussed the case with the resident. I agree with the resident's findings and plan as documented with exceptions below. SUBJECTIVE: Patient seen and examined. No complaints, limited co-operation and ROS. OBJECTIVE: Vital Signs Period Temp Pulse Resp BP Sys/Franco Pulse Ox Last 24 Hr 97 F-98.4 F 59-72 18-20 139-162/58-88 95-95 Intake & Output 02/01/18 02/02/18 02/03/18 02/04/18 23:59 23:59 23:59 23:59 Intake Total 1000 1630 670 360 Balance 1000 1630 670 360 Weight 109 lb General: lying in bed in no acute distress, responds to questions in rwandan, reports had breakfast chest: poor effort, no rales or wheezing appreciated, exam limited by lack of co -operation Abdomen:soft, wound site clean, no voluntary or involuntary guarding or rigidity , positive bowel sounds Extremities: no edema Active Medications Acetaminophen (Tylenol -) 650 mg PO Q6H PRN PRN Reason: Fever Last Admin: 02/03/18 15:28 Dose: 650 mg Acetaminophen (Ofirmev Injection -) 1,000 mg IVPB Q6H PRN PRN Reason: PAIN Artificial Tears (Artificial Tears) 1 drop OU DAILY PRN PRN Reason: DRY EYES Last Admin: 01/26/18 13:31 Dose: 1 drop Epoetin Abe 3,000 unit/ (Epoetin Abe 2,000 unit) 5,000 unit IVPUSH ONCE ONE Stop: 02/03/18 12:08 Dextrose (D5w -) 1,000 mls @ 30 mls/hr IV ASDIR [facility] Last Admin: 02/03/18 10:29 Dose: 30 mls/hr Sodium Chloride (Normal Saline -) 250 mls @ 3,000 mls/hr IV PRN PRN PRN Reason: Hypotension during Dialysis Stop: 02/04/18 11:17 Lactobacillus Acidophilus (Bacid -) 1 tab PO DAILY [facility] Last Admin: 02/03/18 10:28 Dose: 1 tab Lidocaine (Lidoderm Patch -) 1 patch TP DAILY [facility] Last Admin: 02/03/18 10:29 Dose: 1 patch Metoprolol Tartrate (Lopressor -) 25 mg PO BID [facility] Last Admin: 02/03/18 21:51 Dose: 25 mg Miscellaneous (Lidoderm Patch Removal) 1 each MC DAILY@2200 [facility] Last Admin: 02/03/18 21:51 Dose: 1 each Vancomycin HCl (Vancomycin Oral Solution) 125 mg PO Q6HPO [facility] Last Admin: 02/04/18 06:07 Dose: 125 mg ASSESSMENT AND PLAN: 77 yof with reportedly prolonged stay at [facility] for PNA, cdiff (requiring fecal transplant), 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 -Prolonged QTc Plan: EGD/colonscopy results noted. s/p 4 units PRBC ( 2 on 01/30, 1 on 02/02 and 1 on 02/03) recurrent anemia with no gross evidence of bleed or hemodynamic instability currently. Suspect multifactorial. Hold off ddavp for now as high risk for thrombosis. Follow up labs today. CT A/P prelim results noted. renal input noted. Plan for HD via trialysis today. vascular surgery input appreciated, for permacath tomorrow Off PPI drip. ID input noted. s/p 14 days of ertapenem on 02/03 PO vanco q6hy x 2 weeks day 06/06 then slow taper. Surgery input noted. Cardiology input appreciated. Continue lopressor 25 mg BID as tolerated. Avoid psychotropics given QTc > 500. Psych input if concerns of agitation or non -coperation noted. Patient with h/o splenic infarcts, also Afib and RLE at [facility]. Coumadin was offered but son declined and wanted his mother on eliquis. Eliquis on hold as above, will address based on clinical course. No DVT on current exam, CT A/P with no current splenic concerns. Continuation of eliquis risks outweigh benefits at this stage. 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 DVTPPX, SCDs in bed while eliquis on hold. will place on heparin DVTPPx once h/ h stable Dispo planning on hold given renal access and anemia concerns. Recurrent hypoglycemia with poor oral intake and ongoing refusal to care. Palliative care consult to continue to address overall goals of care. psychology input to assess for underlying depression/anxiety disorder. (Son adamantly declined transfer to [facility] on admission. Declined for transfer by multiple tertiary care centers including [facility], [facility], [facility]. Records from [facility] have been reviewed in detail, prolonged hospital stay with transplant nephrectomy 11/05, course complicated by afib/wide complex tachycardia (family declined coumadin, was on eliquis), also severe anemia (Hb 5.6 requiring multiple transfusion), declined PEG, was seen by palliative care. Found on fluid collection on CT A/p in 01/07, plan was for CT with contrast and IR guided aspiration as the last documentation. She was also planned for PICC, also reported MDR E. Coli, was on meropenem with HD for the same. Eliquis was discontinued given her anemia, fluid collection and plan for intervention.)
[2018-02-04] MEDS ORDERED: PT OWN MED DRAWER 7, Y5N ONE (09:37)
[2018-02-04] MEDS: LACTOBACILLUS ACIDOPHILUS 1 TABLET PO SCH (09:46)
[2018-02-04] MEDS: METOPROLOL TARTRATE 25 MG TABLET (FP) PO SCH ×2 (09:46→22:35)
[2018-02-04] MEDS: LIDOCAINE 5% TOPICAL PATCH TP SCH (09:46)
[2018-02-04] MEDS: DEXTROSE 5%-WATER - 1,000 ML IV SCH ×2 (09:47→19:35)
--- NOTE | 2018-02-04 11:20 | PN ---
Progress Note, Physician History of Present Illness: Pt seen and examined at bedside. She is much more awake and alert. She denies shortness of breath. - Current Medication List Current Medications: Active Medications Acetaminophen (Tylenol -) 650 mg PO Q6H PRN PRN Reason: Fever Last Admin: 02/03/18 15:28 Dose: 650 mg Acetaminophen (Ofirmev Injection -) 1,000 mg IVPB Q6H PRN PRN Reason: PAIN Artificial Tears (Artificial Tears) 1 drop OU DAILY PRN PRN Reason: DRY EYES Last Admin: 01/26/18 13:31 Dose: 1 drop Epoetin Abe 3,000 unit/ (Epoetin Abe 2,000 unit) 5,000 unit IVPUSH ONCE ONE Stop: 02/03/18 12:08 Dextrose (D5w -) 1,000 mls @ 30 mls/hr IV ASDIR [facility] Last Admin: 02/04/18 09:47 Dose: Not Given Sodium Chloride (Normal Saline -) 250 mls @ 3,000 mls/hr IV PRN PRN PRN Reason: Hypotension during Dialysis Stop: 02/04/18 11:17 Lactobacillus Acidophilus (Bacid -) 1 tab PO DAILY [facility] Last Admin: 02/04/18 09:46 Dose: 1 tab Lidocaine (Lidoderm Patch -) 1 patch TP DAILY [facility] Last Admin: 02/04/18 09:46 Dose: 1 patch Metoprolol Tartrate (Lopressor -) 25 mg PO BID [facility] Last Admin: 02/04/18 09:46 Dose: 25 mg Miscellaneous (Lidoderm Patch Removal) 1 each MC DAILY@2200 [facility] Last Admin: 02/03/18 21:51 Dose: 1 each Vancomycin HCl (Vancomycin Oral Solution) 125 mg PO Q6HPO [facility] Last Admin: 02/04/18 06:07 Dose: 125 mg - Objective Vital Signs: Vital Signs Temperature 98.4 F 02/04/18 06:00 Pulse Rate 72 02/04/18 06:00 Respiratory Rate 18 02/04/18 06:00 Blood Pressure 145/66 02/04/18 06:00 O2 Sat by Pulse Oximetry (%) 95 02/03/18 21:00 Constitutional: Yes: Calm Eyes: Yes: Conjunctiva Clear HENT: Yes: Atraumatic Neck: Yes: Supple Cardiovascular: Yes: S1, S2 Respiratory: Yes: CTA Bilaterally Gastrointestinal: Yes: Soft Genitourinary: Yes: Incontinence Musculoskeletal: Yes: Muscle Weakness Edema: No Neurological: Yes: Other (mental status is improved) Labs: CBC, BMP 02/03/18 08:30 02/02/18 08:10 INR, PTT INR 1.50 (0.83-1.09) H 01/31/18 06:00 Problem List - Problems (1) ESRD (end stage renal disease) on dialysis Code(s): N18.6 - END STAGE RENAL DISEASE; Z99.2 - DEPENDENCE ON RENAL DIALYSIS Assessment/Plan Current Medications Generic Name Dose Route Start Last Admin Trade Name Freq PRN Reason Stop Dose Admin Acetaminophen 650 mg 01/18/18 17:48 02/03/18 15:28 Tylenol - PO 650 mg Q6H PRN Administration Fever Acetaminophen 1,000 mg 02/01/18 10:57 Ofirmev Injection - IVPB Q6H PRN PAIN Artificial Tears 1 drop 01/17/18 10:00 01/26/18 13:31 Artificial Tears OU 1 drop DAILY PRN Administration DRY EYES Epoetin Abe 3,000 unit/ 5,000 unit 02/03/18 12:07 Epoetin Abe 2,000 unit IVPUSH 02/03/18 12:08 ONCE ONE Dextrose 1,000 mls @ 30 mls/hr 01/31/18 10:00 02/04/18 09:47 D5w - IV Not Given ASDIR [facility] Sodium Chloride 250 mls @ 3,000 mls/hr 02/03/18 11:17 Normal Saline - IV 02/04/18 11:17 PRN PRN Hypotension during Dialysis Lactobacillus Acidophilus 1 tab 01/23/18 10:00 02/04/18 09:46 Bacid - PO 1 tab DAILY [facility] Administration Lidocaine 1 patch 01/17/18 14:45 02/04/18 09:46 Lidoderm Patch - TP 1 patch DAILY [facility] Administration Metoprolol Tartrate 25 mg 01/20/18 10:00 02/04/18 09:46 Lopressor - PO 25 mg BID [facility] Administration Miscellaneous 1 each 01/17/18 22:00 02/03/18 21:51 Lidoderm Patch Removal MC 1 each DAILY@2200 [facility] Administration Vancomycin HCl 125 mg 01/18/18 18:00 02/04/18 06:07 Vancomycin Oral Solution PO 125 mg Q6HPO [facility] Administration Impression 1. ESRD 2. failed kidney transplant 3. hx DM 4. Hx HTN 5. altered mental status 6. post op infection 7. c.diff 8. a-fib 9. failure to thrive 10.malnutrition 11. anemia 12. GI bleed Plan - HD today - vascular surgery follow up for shiley removal and access placement - monitor Hg - cont wound care - epogen for anemia - abx per primary team
--- NOTE | 2018-02-04 11:41 | CON.PSL ---
Psychology Consult Consult Specialty:: Clinical Psychology and Neuropsychology History Provided By: Patient Limitations to Obtaining History: Other (The patient was seen this afternoon again to see if she could be more responsive.) Current Medications: Active Medications Acetaminophen (Tylenol -) 650 mg PO Q6H PRN PRN Reason: Fever Last Admin: 02/03/18 15:28 Dose: 650 mg Acetaminophen (Ofirmev Injection -) 1,000 mg IVPB Q6H PRN PRN Reason: PAIN Artificial Tears (Artificial Tears) 1 drop OU DAILY PRN PRN Reason: DRY EYES Last Admin: 01/26/18 13:31 Dose: 1 drop Epoetin Abe 3,000 unit/ (Epoetin Abe 2,000 unit) 5,000 unit IVPUSH ONCE ONE Stop: 02/03/18 12:08 Dextrose (D5w -) 1,000 mls @ 30 mls/hr IV ASDIR [facility] Last Admin: 02/04/18 09:47 Dose: Not Given Sodium Chloride (Normal Saline -) 250 mls @ 3,000 mls/hr IV PRN PRN PRN Reason: Hypotension during Dialysis Stop: 02/04/18 11:17 Lactobacillus Acidophilus (Bacid -) 1 tab PO DAILY [facility] Last Admin: 02/04/18 09:46 Dose: 1 tab Lidocaine (Lidoderm Patch -) 1 patch TP DAILY [facility] Last Admin: 02/04/18 09:46 Dose: 1 patch Metoprolol Tartrate (Lopressor -) 25 mg PO BID [facility] Last Admin: 02/04/18 09:46 Dose: 25 mg Miscellaneous (Lidoderm Patch Removal) 1 each MC DAILY@2200 [facility] Last Admin: 02/03/18 21:51 Dose: 1 each Vancomycin HCl (Vancomycin Oral Solution) 125 mg PO Q6HPO [facility] Last Admin: 02/04/18 06:07 Dose: 125 mg Allergies: Allergies Allergy/AdvReac Type Severity Reaction Status Date / Time No Known Allergies Allergy Verified 01/15/18 14:21 Does patient have pain?: Yes Pain Location Body Site: Leg Pain Description: Sharp (Pain appeared to be exacerbated by motion of limb.) Pain Intensity: 9 Hx Alcohol Use: No (No information was available as patient was unresponsive.) Hx Substance Use: No (No information was available as patient unresponsive.) Hx Substance Use Treatment: No Current Medical Exam-Psy Orientation: Person, Place Immediate Term Memory: 04/25 Expressive: Incoherent Receptive: Delayed Receptive Comprehension Hallucinations: Absent Thought Process: Loosening of Associations Depression: Moderate Danger to Self and Others: No Sleep: Fair Appetite: Poor Serial Sevens Intact: No Repeats 3 words told earlier: 04/25 Support System: Child/Children (Patient has two sons in the area who visit her regularly. They are very attentive to her needs. One son is her health care agent according to his brother who was seen today. It is felt by them that their mother has no capacity to make decisions for herself.) Problem List - Problem (1) Depressed Code(s): F32.9 - MAJOR DEPRESSIVE DISORDER, SINGLE EPISODE, UNSPECIFIED Qualifiers: Major depression recurrence: single episode Active/Remission status: currently active Major depression episode severity: severe Psychotic features: without psychotic features (2) Pain aggravated by changing postions Code(s): R52 - PAIN, UNSPECIFIED Assessment/Plan * The patient was awake and alert this morning. She was oriented to place and person. However, her responses to the examination questions were limited. She was unable to perform serial 7's indicating poor concentration and her memory for 3 words was poor as well as she recalled only one word. One of the nurses translated some of questions or repeated them to assure that the patient understood what was asked of her. The patient did complain of pain in one of her legs as indicated earlier. We were limited in obtaining all the information as the patient appeared confused at times. Upon returning to repeat parts of the examination, her son was present and he translated some of he questions. His mother was unable to respond as she was evidently in severe pain per her grimacing. She was unresponsive to the examination questions. Her altered mental status makes it difficult to ascertain the presence of an anxiety disorder or the degree of depression present. Per this examination, this patient was unable to explain what her medical condition is nor was she able to state what treatments if any she would desire. It appears that she lacks the capacity to make health care decisions for herself. Thank you for the referral.
[2018-02-04] MEDS: ACETAMINOPHEN 325 MG TABLET (FP) PO PRN ×2 (12:07→22:35)
--- NOTE | 2018-02-04 12:35 | PN ---
Progress Note (short form) - Note Progress Note: Vascular surgery For permacath insertion lara afternoon. Please optimize from a medical standpoint. Will not take out trialyiss till after the OR, since pt does not have good IV access. Simeon day dO
[2018-02-04] MEDS ORDERED: EPOETIN ALFA 3,000 UNIT, EPOETIN ALFA 2,000 UNIT IVPUSH ONE (16:15)
[2018-02-04 16:45] LABS: EOS % 1.8 % (0-4.5); HEMATOCRIT 29.7 % (32.4-45.2); HEMOGLOBIN 10.1 GM/dL (10.7-15.3); LYMPH % 21.6 % (8-40); MCH 31.4 pg (25.7-33.7); MCHC 33.9 g/dl (32.0-36.0); MEAN CELL VOLUME 92.7 fl (80-96); MEAN PLT VOLUME 9.3 fl (7.5-11.1); MONO % 8.7 % (3.8-10.2); NEUT % 66.9 % (42.8-82.8); PLATELET COUNT 194 K/MM3 (134-434); RDW 16.5 % (11.6-15.6); WHITE BLOOD COUNT 6.9 K/mm3 (4.0-10.0)
--- NOTE | 2018-02-04 17:06 | PN ---
Physical Exam: SUBJECTIVE: Patient seen and examined at bedside this morning. No acute events overnight. Patient remained hemodynamically stable. BGMs at the 70s with D5w. For HD today. OBJECTIVE: Vital Signs Period Temp Pulse Resp BP Sys/Franco Pulse Ox Last 24 Hr 97.3 F-98.4 F 58-81 18-18 144-163/58-104 95-95 GENERAL: Lying in bed, in no acute distress. LUNGS: Breath sounds clear to auscultation bilaterally. HEART: Regular rate and rhythm, S1, S2 without murmur, rub or gallop. ABDOMEN: Soft, nontender, nondistended, normoactive bowel sounds, +open wound on the RLQ, clean, dry, intact, no purulent discharge. EXTREMITIES: palpable DP pulses bilaterally, warm, well-perfused, no edema. SKIN: Warm, dry, normal turgor Laboratory Results - last 24 hr 02/03/18 02/03/18 02/04/18 17:06 21:35 16:00 WBC 6.9 RBC 3.20 L Hgb 10.1 L Hct 29.7 L D MCV 92.7 MCH 31.4 MCHC 33.9 RDW 16.5 H Plt Count 194 MPV 9.3 Absolute Neuts (auto) 4.6 Neutrophils % 66.9 Lymphocytes % 21.6 Monocytes % 8.7 Eosinophils % 1.8 Basophils % 1.0 Nucleated RBC % 0 POC Glucometer 112 72 Phosphorus Magnesium 02/04/18 16:00 WBC RBC Hgb Hct MCV MCH MCHC RDW Plt Count MPV Absolute Neuts (auto) Neutrophils % Lymphocytes % Monocytes % Eosinophils % Basophils % Nucleated RBC % POC Glucometer Phosphorus Cancelled Magnesium Cancelled Active Medications Generic Name Dose Route Start Last Admin Trade Name Freq PRN Reason Stop Dose Admin Acetaminophen 650 mg 01/18/18 17:48 02/04/18 12:07 Tylenol - PO 650 mg Q6H PRN Administration Fever Acetaminophen 1,000 mg 02/01/18 10:57 Ofirmev Injection - IVPB Q6H PRN PAIN Artificial Tears 1 drop 01/17/18 10:00 01/26/18 13:31 Artificial Tears OU 1 drop DAILY PRN Administration DRY EYES Dextrose 1,000 mls @ 30 mls/hr 01/31/18 10:00 02/04/18 09:47 D5w - IV Not Given ASDIR [facility] Lactobacillus Acidophilus 1 tab 01/23/18 10:00 02/04/18 09:46 Bacid - PO 1 tab DAILY [facility] Administration Lidocaine 1 patch 01/17/18 14:45 02/04/18 09:46 Lidoderm Patch - TP 1 patch DAILY [facility] Administration Metoprolol Tartrate 25 mg 01/20/18 10:00 02/04/18 09:46 Lopressor - PO 25 mg BID [facility] Administration Miscellaneous 1 each 01/17/18 22:00 02/03/18 21:51 Lidoderm Patch Removal MC 1 each DAILY@2200 [facility] Administration Vancomycin HCl 125 mg 01/18/18 18:00 02/04/18 12:08 Vancomycin Oral Solution PO 125 mg Q6HPO [facility] Administration Microbiology 01/18/18 12:52 Abscess AFB Smear Concentration - Preliminary 01/18/18 12:52 Abscess Mycobacterial Culture - Preliminary 01/18/18 12:52 Abscess ADOLFO Preparation - Preliminary 01/18/18 12:52 Abscess Fungal Culture - Preliminary 01/17/18 11:40 Wound-Other Gram Stain - Final 01/17/18 11:40 Wound-Other Wound Culture - Final Escherichia Coli Proteus Mirabilis 01/18/18 12:52 Abscess Gram Stain - Final 01/18/18 12:52 Abscess Body Fluid Culture - Final Escherichia Coli 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 Interval slight increase in size of previously described collection in the right hemipelvis with thick, irregular and enhancing wall. It is at the expected anatomical location of a resected pelvic kidney as per history. No gross free air or free fluid in the abdomen or pelvis. Multiple cystic densities in the pancreas for which correlation with MRI is needed. Limited visualization of the gallbladder due to motion/breathing artifact with suggestion of a sludge layering posteriorly again seen. Duplex US of RUE - No evidence of deep venous thrombosis. CT abdomen/pelvis with contrast (01/15/2018) - Small to moderate size hiatus hernia. Atelectatic changes with nodular opacities in the left lung base likely representing infiltrates for which a follow-up CT scan of the chest in one to 2 weeks is recommended. Moderate size hiatus hernia. Slightly overdistended gallbladder with suggestion of a sludge layering posteriorly. Dilated common bile duct measuring 1.3 cm multiple cystic densities in the pancreas with correlation with MRI. Bilateral atrophic kidneys. Multiple surgical metallic clips in the right hemipelvis obscuring the soft tissue details. However, there is a focal low-attenuation density in the right hemipelvis measuring 4.5 cm likely representing a collection/abscess at the site of prior right renal transplant that was resected according to the submitted clinical history. Extensive diverticulosis coli mainly in the sigmoid colon without evidence of acute diverticulitis. CXR - Egiq-[id number] cardiomegaly without evidence of acute lung disease. ASSESSMENT/PLAN: Patient is a 77 year old female, previously admitted at [facility] for 144 days (s/p failed renal transplant, s/p removal), discharged AMA, as per son, brought at the ED for lethargy. #Abdominal wound: s/p IR-guided drainage of serosanguinous fluid -Fluid sent for cultures - +ESBL, +non-lactose fermenting gram negative bacilli -Repeat wound cultures -+E.coli, +Proteus -ID (Dr. Shanks) consulted. Recommendations appreciated. -Ertapenem completed . Will discontinue. -Continue PO Vancomycin for hx of cdiff. -Vancomycin 750mg PO day 06/06. Then slow taper. -Probiotic therapy. -Contact isolation. -Proper wound care. #ESRD: failed renal transplant, s/p removal -Hemodialysis (MWF) -Nephrology (Dr. Winters) consulted. Recommendations appreciated. - For HD today. - Monitor H/H and bmp - will still need fistula repair - epogen for anemia -Vascular surgery (Dr. Neri) consulted. Recommendations appreciated. - For permacath insertion tomorrow. - NPO after midnight. #GI bleeding: no active bleeding overnight -s/p EGD/Colonoscopy: Hiatal hernia, Gastritis, Diverticulosis, Hemorrhoids, No active bleeding -Will continue to monitor H/H and GI bleeding. -Will transfuse as needed. -Protonix drip discontinued -Will start Heparin 5000unit sq tid after permacath insertion -Consulted with Dr. Shell: -CTA had OTILIO stenosis and sigmoid bleeding. -pt is a poor candidate for IR-guided embolectomy -Monitor H/H -GI (Dr. Torres) consulted. Recommendations appreciated. -Full liquid diet -CTA of abdomen and pelvis done -pending final read -Cardiology (Dr. Holden) consulted. Recommendations appreciated. -Prolonged QTc: More likely secondary to prominent U-waves than an actual QT prolongation -Would continue Beta Blockers if tolerated -Holding AC for GI bleed #Hypoglycemia: BGM today at 70s -On D5W at 30ml/hr -Encouraged patient to increase PO intake. -on full liquid diet #Depression vs Anxiety -Psychologist consulted. Recommendations appreciated. #Altered mental status: ?at baseline from when she came in at the hospital -likely acute metabolic toxic encephalopathy from renal failure and infection. -Speech and swallow evaluation. Recommendations appreciated: -May advance to chopped diet. -Maintain head of bed elevated with chin to neutral or flexed during mealtime and for at least an hour after meals. -Feed slowly, 1/2 teaspoon at a time. -Watch for swallow reflex before next bite/sip is given. -Inform Nursing if patient coughs, clears throat or sounds wet and gurgly during or after meals. #Hx of RLE DVT -Duplex US of RUE - No evidence of deep venous thrombosis. -SCDs applied -Eliquis 2.5 mg BID put on hold in setting of GI bleed. -Will monitor H/H. #Atrial fibrillation -Eliquis 2.5 mg BID held. -Metoprolol (Lopressor) 25mg BID. #Anemia -likely 2/2 iron deficiency and ESRD -Epogen given. #FEN -D5W at 30ml/hr for hypoglycemia -Electrolytes wnl, routine bmp monitoring -Full liquid diet. #Prophylaxis -Hold Eliquis 2.5 mg BID due to GI bleed. -SCDs to both legs #Disposition -Declined for transfer by multiple tertiary care centers. -Son wants to bring patient home once medically optimized. Visit type - Emergency Visit Emergency Visit: Yes ED Registration Date: 01/16/18 Care time: The patient presented to the Emergency Department on the above date and was hospitalized for further evaluation of their emergent condition. - New Patient This patient is new to me today: Yes Date on this admission: 02/04/18 - Critical Care Critical Care patient: No
[2018-02-04 17:33] LABS: ANION GAP 10 MMOL/L (8-16); BLOOD UREA NITROGEN 29 mg/dL (7-18); CALCIUM 7.6 mg/dL (8.5-10.1); CHLORIDE 96 mmol/L (98-107); CO2 25 mmol/L (21-32); CREATININE 4.3 mg/dL (0.55-1.3); GLUCOSE,RANDOM 82 mg/dL (74-106); MAGNESIUM 1.7 mg/dL (1.8-2.4); PHOSPHOROUS 6.8 mg/dL (2.5-4.9); POTASSIUM 4.5 mmol/L (3.5-5.1); SODIUM 132 mmol/L (136-145)
[2018-02-04] MEDS ORDERED: MAGNESIUM OXIDE 400 MG TABLET (FP) PO ONE (18:09)
[2018-02-04] MEDS: LIDOCAINE PATCH REMOVAL MC SCH (22:36)
[2018-02-05] MEDS: VANCOMYCIN 250 MG/5 ML ORAL SOLUTION PO SCH ×3 (05:23→17:43)
[2018-02-05 06:58] LABS: BASO % 1.1 % (0-2.0); HEMATOCRIT 27.2 % (32.4-45.2); HEMOGLOBIN 9.3 GM/dL (10.7-15.3); LYMPH % 27.4 % (8-40); MCH 31.4 pg (25.7-33.7); MCHC 34.2 g/dl (32.0-36.0); MEAN CELL VOLUME 91.9 fl (80-96); MEAN PLT VOLUME 9.2 fl (7.5-11.1); MONO % 9.1 % (3.8-10.2); NEUT % 60.4 % (42.8-82.8); PLATELET COUNT 145 K/MM3 (134-434); RBC 2.96 M/mm3 (3.60-5.2); RDW 16.4 % (11.6-15.6)
[2018-02-05 07:34] LABS: ALBUMIN 1.6 g/dl (3.4-5.0); ALK PHOS 204 U/L (45-117); ANION GAP 10 MMOL/L (8-16); BILIRUBIN,TOTAL 0.6 mg/dL (0.2-1); BLOOD UREA NITROGEN 27 mg/dL (7-18); CALCIUM 7.2 mg/dL (8.5-10.1); CHLORIDE 97 mmol/L (98-107); CO2 24 mmol/L (21-32); CREATININE 4.2 mg/dL (0.55-1.3); GLUCOSE,RANDOM 58 mg/dL (74-106); MAGNESIUM 1.6 mg/dL (1.8-2.4); POTASSIUM 4.5 mmol/L (3.5-5.1); SGOT/AST 46 U/L (15-37); SGPT/ALT 8 U/L (13-61); SODIUM 131 mmol/L (136-145); TOT PROT 5.6 g/dl (6.4-8.2)
[2018-02-05] MEDS: METOPROLOL TARTRATE 25 MG TABLET (FP) PO SCH ×2 (09:42→22:18)
[2018-02-05] MEDS: LIDOCAINE 5% TOPICAL PATCH TP SCH (09:42)
[2018-02-05] MEDS: ACETAMINOPHEN 325 MG TABLET (FP) PO PRN (09:42)
[2018-02-05] MEDS: DEXTROSE 5%-WATER - 1,000 ML IV SCH ×2 (09:43→17:50)
[2018-02-05] MEDS: LACTOBACILLUS ACIDOPHILUS 1 TABLET PO SCH (09:43)
--- NOTE | 2018-02-05 10:21 | PN ---
Progress Note (short form) - Note Progress Note: The patient was non-responsive to my greeting. She appeared fast asleep although my voice was loud. I spoke in both Divehi and Belgian saying "good morning". Although she is well versed in Divehi, she appears to prefer using Belgian, her kashia tongue. 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 Her behavior is suggestive of depression but also the possibility of dementia as per a conversation with one of her son's yesterday. It appears that according to her son, his mother's cognitive functions may have been be declining prior to arrival here. Problem List - Problems (1) Depressed Code(s): F32.9 - MAJOR DEPRESSIVE DISORDER, SINGLE EPISODE, UNSPECIFIED Qualifiers: Major depression recurrence: single episode Active/Remission status: currently active Major depression episode severity: severe Psychotic features: without psychotic features (2) Pain aggravated by changing postions Code(s): R52 - PAIN, UNSPECIFIED
[2018-02-05] MEDS ORDERED: SODIUM CHLORIDE 250 ML IV PRN (13:19)
--- NOTE | 2018-02-05 13:19 | PN ---
Progress Note, Physician History of Present Illness: Pt seen and examined at bedside. She is awake and appears comfortable. She denies shortness of breath. - Current Medication List Current Medications: Active Medications Acetaminophen (Tylenol -) 650 mg PO Q6H PRN PRN Reason: Fever Last Admin: 02/05/18 09:42 Dose: 650 mg Acetaminophen (Ofirmev Injection -) 1,000 mg IVPB Q6H PRN PRN Reason: PAIN Artificial Tears (Artificial Tears) 1 drop OU DAILY PRN PRN Reason: DRY EYES Last Admin: 01/26/18 13:31 Dose: 1 drop Dextrose (D5w -) 1,000 mls @ 30 mls/hr IV [facility] Last Admin: 02/05/18 09:43 Dose: Not Given Lactobacillus Acidophilus (Bacid -) 1 tab PO DAILY [facility] Last Admin: 02/05/18 09:43 Dose: 1 tab Lidocaine (Lidoderm Patch -) 1 patch TP DAILY [facility] Last Admin: 02/05/18 09:42 Dose: 1 patch Metoprolol Tartrate (Lopressor -) 25 mg PO BID [facility] Last Admin: 02/05/18 09:42 Dose: 25 mg Miscellaneous (Lidoderm Patch Removal) 1 each MC DAILY@2200 [facility] Last Admin: 02/04/18 22:36 Dose: 1 each Vancomycin HCl (Vancomycin Oral Solution) 125 mg PO Q6HPO [facility] Last Admin: 02/05/18 05:23 Dose: 125 mg - Objective Vital Signs: Vital Signs Temperature 97.3 F L 02/05/18 10:00 Pulse Rate 63 02/05/18 10:00 Respiratory Rate 18 02/05/18 10:00 Blood Pressure 151/81 02/05/18 10:00 O2 Sat by Pulse Oximetry (%) 99 02/05/18 09:00 Constitutional: Yes: Calm Eyes: Yes: Conjunctiva Clear HENT: Yes: Atraumatic Neck: Yes: Supple Cardiovascular: Yes: S1, S2 Respiratory: Yes: CTA Bilaterally Gastrointestinal: Yes: Soft, Other (dressing in place) Musculoskeletal: Yes: Muscle Weakness Edema: No Neurological: Yes: Oriented Labs: CBC, BMP 02/05/18 06:00 02/05/18 06:00 INR, PTT INR 1.50 (0.83-1.09) H 01/31/18 06:00 Problem List - Problems (1) ESRD (end stage renal disease) on dialysis Code(s): N18.6 - END STAGE RENAL DISEASE; Z99.2 - DEPENDENCE ON RENAL DIALYSIS Assessment/Plan Current Medications Generic Name Dose Route Start Last Admin Trade Name Freq PRN Reason Stop Dose Admin Acetaminophen 650 mg 01/18/18 17:48 02/05/18 09:42 Tylenol - PO 650 mg Q6H PRN Administration Fever Acetaminophen 1,000 mg 02/01/18 10:57 Ofirmev Injection - IVPB Q6H PRN PAIN Artificial Tears 1 drop 01/17/18 10:00 01/26/18 13:31 Artificial Tears OU 1 drop DAILY PRN Administration DRY EYES Dextrose 1,000 mls @ 30 mls/hr 01/31/18 10:00 02/05/18 09:43 D5w - IV Not Given ASDIR [facility] Lactobacillus Acidophilus 1 tab 01/23/18 10:00 02/05/18 09:43 Bacid - PO 1 tab DAILY [facility] Administration Lidocaine 1 patch 01/17/18 14:45 02/05/18 09:42 Lidoderm Patch - TP 1 patch DAILY [facility] Administration Metoprolol Tartrate 25 mg 01/20/18 10:00 02/05/18 09:42 Lopressor - PO 25 mg BID [facility] Administration Miscellaneous 1 each 01/17/18 22:00 02/04/18 22:36 Lidoderm Patch Removal MC 1 each DAILY@2200 H[facility] Administration Vancomycin HCl 125 mg 01/18/18 18:00 02/05/18 05:23 Vancomycin Oral Solution PO 125 mg Q6HPO [facility] Administration Impression 1. ESRD 2. failed kidney transplant 3. hx DM 4. Hx HTN 5. altered mental status 6. post op infection 7. c.diff 8. a-fib 9. failure to thrive 10.malnutrition 11. anemia 12. GI bleed Plan - pt is going for a permacath today - shiley clotted after about an hour of HD yesterday - HD tomorrow - monitor Hg - cont wound care - epogen for anemia - abx per primary team - discussed with family, they are pleased at the progress that she has made since admission Dr Winters
[2018-02-05] MEDS ORDERED: HEPARIN NA (PORCINE) 5,000 UNITS/ML 1ML VIAL ONE (13:59)
--- NOTE | 2018-02-05 14:35 | PN ---
Physical Exam: SUBJECTIVE: Patient seen and examined at bedside this morning. No acute events overnight. Patient has no complaints today, no rectal bleeding. OBJECTIVE: Vital Signs Period Temp Pulse Resp BP Sys/Franco Pulse Ox Last 24 Hr 97.2 F-98.3 F 58-81 18-20 106-163/58-104 96-99 GENERAL: Lying in bed, in no acute distress. LUNGS: Breath sounds clear to auscultation bilaterally. HEART: Regular rate and rhythm, S1, S2 without murmur, rub or gallop. ABDOMEN: Soft, nontender, nondistended, normoactive bowel sounds, +open wound on the RLQ, clean, dry, intact, no purulent discharge. EXTREMITIES: palpable DP pulses bilaterally, warm, well-perfused, no edema. SKIN: Warm, dry, normal turgor Laboratory Results - last 24 hr 02/04/18 02/04/18 02/04/18 16:00 16:00 16:00 WBC 6.9 RBC 3.20 L Hgb 10.1 L Hct 29.7 L D MCV 92.7 MCH 31.4 MCHC 33.9 RDW 16.5 H Plt Count 194 MPV 9.3 Absolute Neuts (auto) 4.6 Neutrophils % 66.9 Lymphocytes % 21.6 Monocytes % 8.7 Eosinophils % 1.8 Basophils % 1.0 Nucleated RBC % 0 Sodium 132 L Potassium 4.5 Chloride 96 L Carbon Dioxide 25 Anion Gap 10 BUN 29 H Creatinine 4.3 H Creat Clearance w eGFR 9.96 POC Glucometer Random Glucose 82 Calcium 7.6 L Phosphorus Cancelled 6.8 H Magnesium Cancelled 1.7 L Total Bilirubin AST ALT Alkaline Phosphatase Total Protein Albumin 02/04/18 02/05/18 02/05/18 16:59 01:57 06:00 WBC 6.0 RBC 2.96 L Hgb 9.3 L Hct 27.2 L MCV 91.9 MCH 31.4 MCHC 34.2 RDW 16.4 H Plt Count 145 D MPV 9.2 Absolute Neuts (auto) 3.6 Neutrophils % 60.4 Lymphocytes % 27.4 D Monocytes % 9.1 Eosinophils % 2.0 Basophils % 1.1 Nucleated RBC % 0 Sodium Potassium Chloride Carbon Dioxide Anion Gap BUN Creatinine Creat Clearance w eGFR POC Glucometer 135 86 Random Glucose Calcium Phosphorus Magnesium Total Bilirubin AST ALT Alkaline Phosphatase Total Protein Albumin 02/05/18 02/05/18 06:00 11:21 WBC RBC Hgb Hct MCV MCH MCHC RDW Plt Count MPV Absolute Neuts (auto) Neutrophils % Lymphocytes % Monocytes % Eosinophils % Basophils % Nucleated RBC % Sodium 131 L Potassium 4.5 Chloride 97 L Carbon Dioxide 24 Anion Gap 10 BUN 27 H Creatinine 4.2 H Creat Clearance w eGFR 10.24 POC Glucometer 73 Random Glucose 58 L Calcium 7.2 L Phosphorus 6.0 H Magnesium 1.6 L Total Bilirubin 0.6 AST 46 H ALT 8 L Alkaline Phosphatase 204 H Total Protein 5.6 L Albumin 1.6 L Active Medications Generic Name Dose Route Start Last Admin Trade Name Freq PRN Reason Stop Dose Admin Acetaminophen 650 mg 01/18/18 17:48 02/05/18 09:42 Tylenol - PO 650 mg Q6H PRN Administration Fever Acetaminophen 1,000 mg 02/01/18 10:57 Ofirmev Injection - IVPB Q6H PRN PAIN Artificial Tears 1 drop 01/17/18 10:00 01/26/18 13:31 Artificial Tears OU 1 drop DAILY PRN Administration DRY EYES Epoetin Abe 6,000 unit 02/06/18 13:19 Epogen - IVPUSH 02/06/18 13:20 ONCE ONE Dextrose 1,000 mls @ 30 mls/hr 01/31/18 10:00 02/05/18 09:43 D5w - IV Not Given ASDIR [facility] Sodium Chloride 250 mls @ 3,000 mls/hr 02/05/18 13:19 Normal Saline - IV 02/06/18 13:19 PRN PRN Hypotension during Dialysis Lactobacillus Acidophilus 1 tab 01/23/18 10:00 02/05/18 09:43 Bacid - PO 1 tab DAILY [facility] Administration Lidocaine 1 patch 01/17/18 14:45 02/05/18 09:42 Lidoderm Patch - TP 1 patch DAILY [facility] Administration Metoprolol Tartrate 25 mg 01/20/18 10:00 02/05/18 09:42 Lopressor - PO 25 mg BID [facility] Administration Miscellaneous 1 each 01/17/18 22:00 02/04/18 22:36 Lidoderm Patch Removal MC 1 each DAILY@2200 [facility] Administration Vancomycin HCl 125 mg 01/18/18 18:00 02/05/18 13:00 Vancomycin Oral Solution PO 125 mg Q6HPO [facility] Administration Microbiology 01/18/18 12:52 Abscess AFB Smear Concentration - Preliminary 01/18/18 12:52 Abscess Mycobacterial Culture - Preliminary 01/18/18 12:52 Abscess ADOLFO Preparation - Preliminary 01/18/18 12:52 Abscess Fungal Culture - Preliminary 01/17/18 11:40 Wound-Other Gram Stain - Final 01/17/18 11:40 Wound-Other Wound Culture - Final Escherichia Coli Proteus Mirabilis 01/18/18 12:52 Abscess Gram Stain - Final 01/18/18 12:52 Abscess Body Fluid Culture - Final Escherichia Coli 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 Interval slight increase in size of previously described collection in the right hemipelvis with thick, irregular and enhancing wall. It is at the expected anatomical location of a resected pelvic kidney as per history. No gross free air or free fluid in the abdomen or pelvis. Multiple cystic densities in the pancreas for which correlation with MRI is needed. Limited visualization of the gallbladder due to motion/breathing artifact with suggestion of a sludge layering posteriorly again seen. Duplex US of RUE - No evidence of deep venous thrombosis. CT abdomen/pelvis with contrast (01/15/2018) - Small to moderate size hiatus hernia. Atelectatic changes with nodular opacities in the left lung base likely representing infiltrates for which a follow-up CT scan of the chest in one to 2 weeks is recommended. Moderate size hiatus hernia. Slightly overdistended gallbladder with suggestion of a sludge layering posteriorly. Dilated common bile duct measuring 1.3 cm multiple cystic densities in the pancreas with correlation with MRI. Bilateral atrophic kidneys. Multiple surgical metallic clips in the right hemipelvis obscuring the soft tissue details. However, there is a focal low-attenuation density in the right hemipelvis measuring 4.5 cm likely representing a collection/abscess at the site of prior right renal transplant that was resected according to the submitted clinical history. Extensive diverticulosis coli mainly in the sigmoid colon without evidence of acute diverticulitis. CXR - Body-nr-[id number] cardiomegaly without evidence of acute lung disease. ASSESSMENT/PLAN: Patient is a 77 year old female, previously admitted at [facility] for 144 days (s/p failed renal transplant, s/p removal), discharged AMA, as per son, brought at the ED for lethargy. #Abdominal wound: s/p IR-guided drainage of serosanguinous fluid -Fluid sent for cultures - +ESBL, +non-lactose fermenting gram negative bacilli -Repeat wound cultures -+E.coli, +Proteus -ID (Dr. Shanks) consulted. Recommendations appreciated. -Ertapenem completed . -Continue PO Vancomycin for hx of cdiff. -Vancomycin 750mg PO day 07/04. Then slow taper. -Probiotic therapy. -Contact isolation. -Proper wound care. #ESRD: failed renal transplant, s/p removal -Hemodialysis (MWF) -Nephrology (Dr. Winters) consulted. Recommendations appreciated. - For HD tomorrow. - epogen for anemia -Vascular surgery (Dr. Neri) consulted. Recommendations appreciated. - Permacath insertion done today. #GI bleeding: no active bleeding overnight -s/p EGD/Colonoscopy: Hiatal hernia, Gastritis, Diverticulosis, Hemorrhoids, No active bleeding -Will start Heparin 5000unit sq tid after permacath insertion -Consulted with Dr. Shell: -CTA had OTILIO stenosis and sigmoid bleeding. -pt is a poor candidate for IR-guided embolectomy -Monitor H/H -GI (Dr. Torres) consulted. Recommendations appreciated. -CTA of abdomen and pelvis done -Cardiology (Dr. Holden) consulted. Recommendations appreciated. -Prolonged QTc: More likely secondary to prominent U-waves than an actual QT prolongation -Would continue Beta Blockers if tolerated -Holding AC for GI bleed #Hypoglycemia: BGM today at 70s -On D5W at 30ml/hr -Encouraged patient to increase PO intake. #Depression vs Anxiety -Psychologist consulted. Recommendations appreciated. #Altered mental status: ?at baseline from when she came in at the hospital -likely acute metabolic toxic encephalopathy from renal failure and infection. -Speech and swallow evaluation. Recommendations appreciated: -May advance to chopped diet. -Maintain head of bed elevated with chin to neutral or flexed during mealtime and for at least an hour after meals. -Feed slowly, 1/2 teaspoon at a time. -Watch for swallow reflex before next bite/sip is given. -Inform Nursing if patient coughs, clears throat or sounds wet and gurgly during or after meals. #Hx of RLE DVT -Duplex US of RUE - No evidence of deep venous thrombosis. -SCDs applied -Eliquis 2.5 mg BID put on hold in setting of GI bleed. -Patient not a good candidate to be on AC #Atrial fibrillation -Eliquis 2.5 mg BID held. -Metoprolol (Lopressor) 25mg BID. #Anemia -likely 2/2 iron deficiency and ESRD -Epogen given. #FEN -D5W at 30ml/hr for hypoglycemia -Electrolytes wnl -May resume diet after permacath insertion. #Prophylaxis -Hold Eliquis 2.5 mg BID due to GI bleed. -SCDs to both legs #Disposition -Declined for transfer by multiple tertiary care centers. -Son wants to bring patient home once medically optimized. -For possible discharge tomorrow. -CCC on the case. Would need to arrange HD as outpatient. Visit type - Emergency Visit Emergency Visit: Yes ED Registration Date: 01/16/18 Care time: The patient presented to the Emergency Department on the above date and was hospitalized for further evaluation of their emergent condition. - New Patient This patient is new to me today: Yes Date on this admission: 02/05/18 - Critical Care Critical Care patient: No
[2018-02-05] MEDS ORDERED: PROPOFOL 20 ML ONE (14:41)
--- NOTE | 2018-02-05 15:07 | PN ---
Teaching Attending Note Name of Resident: Marisela Simmons ATTENDING PHYSICIAN STATEMENT I saw and evaluated the patient. I reviewed the resident's note and discussed the case with the resident. I agree with the resident's findings and plan as documented. SUBJECTIVE:resting comfortable OBJECTIVE: Last Vital Signs Temp Pulse Resp BP Pulse Ox 97.8 F 60 18 138/69 99 02/05/18 14:00 02/05/18 14:00 02/05/18 14:00 02/05/18 14:00 02/05/18 09:00 General NAD, face is slightly puffy Lungs decreased breath sounds. poor inspiratory effort Abdomen soft, ND. 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 1. Abdominal wound dehiscence with fluid collection s/ BIJU drain placement 01/18. +ESBL ecoli in wound. completed abx course. off abx. ID on board 2. Acute GI bleed- likely diverticular. s/p EGD/colonoscopy. with 4 units PRBC transfused here. no active signs of bleeding. no indication for transfusion at this time. was on eliquis 3. Failed transplant kidney in 09/2017, s/p removal/off immunosuppressants, on HD. has missed 2 session of HD now due to non functioning access. plan for permacath today. 4. Acute metabolic toxic encephalopathy- likely due to renal failure and infection in setting of gradual decline from recent prolonged hospital stay. informed she is at baseline from her hospital course here. 5. 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 on vanco po, cont QID day 3 then will need taper. contact precautions. cont pro-biotic 6. ESBL Ecoli UTI- completed abx course 7. h/o RLE DVT, repeat duplex neg here 8. h/o AFib with wide complex tachycardia- on metoprolol. now off NOAC. will need to hold due to risk of bleeding outweighs clinical benefit. family is aware 9. Prolonged QTc- Qtc 496. avoid QT prolonging medication 10. DVT ppx- SCD. hold pharmacologic anticoagulation 11. spoke with both sons present at bedside. informed them that she has clinically improved and awaiting permacath placement for HD. they are still unsure if they want SNF placement or home. informed them that this she will be medically optimized for discharge once access is secured.
[2018-02-05] MEDS ORDERED: LIDOCAINE HCL 1%, 10 MG/ML (20ML VIAL) NR ONE ×2 (15:12→15:13)
--- NOTE | 2018-02-05 15:48 | OP ---
Operative Note - Note: Operative Date: 02/05/18 Pre-Operative Diagnosis: ESRD Operation: Insertion of permacath Post-Operative Diagnosis: Same as Pre-op Surgeon: Simeon Neri Anesthesia: Fractional Estimated Blood Loss (mls): 20 Operative Report Dictated: Yes
[2018-02-05] MEDS ORDERED: ARTIFICIAL TEARS (POLYVINYL ALCOHOL) OPTH DROPS OU PRN (16:05)
[2018-02-05] MEDS ORDERED: EPOETIN ALFA 2,000 UNIT/1 ML VIAL IVPUSH ONE (16:05)
--- NOTE | 2018-02-05 16:52 | OP ---
DATE OF OPERATION: 02/05/2018 PREOPERATIVE DIAGNOSIS: End-stage renal disease. POSTOPERATIVE DIAGNOSIS: End-stage renal disease. PROCEDURE: Insertion of Permacath. SURGEON: Simeon Honeycutt DO ANESTHESIA: Fractional. BLOOD LOSS: 20 mL. Patient is a 77-year-old female that needs temporary dialysis catheter placement. Patient's family consented for the procedure understanding all risks, benefits, and alternatives. Patient was then brought into the operating room and laid on the operating table in a supine manner. Area of the right neck and chest were prepped and draped in sterile surgical manner. We then went ahead and under ultrasound guidance visualized the right internal jugular vein and 10 mL of lidocaine 1% was injected there. We then, under ultrasound guidance, went ahead and using our micropuncture needle punctured the right internal jugular vein. Micropuncture wire was inserted, and micropuncture sheath was inserted. A 0.035 floppy guidewire was inserted under fluoroscopy. We then injected 10 mL of lidocaine 1% above and below the clavicle. We then took an 11 blade and made a 1-cm incision at the puncture site. Using a 15 blade, made a 1-cm incision below the clavicle. We then tunneled the Permacath up to the puncture site. We then took our breakaway sheath and placed over the guidewire into the vein under fluoroscopy. and guidewire were removed. Catheter was placed inside the sheath. Sheath was broken away. The catheter was placed inside the vein. Neck of the catheter was nice and smooth. Tip of the catheter was located inside the right atrium. We then jarrell back on each port of the catheter, and there was good flow. Heparinized saline was injected, and 2000 units of IV heparin was injected into each port. Biosyn 4-0 was then used in 2 simple stitches was placed at the puncture site. Nylon 3-0 was used, and the catheter was attached to the skin. BIOPATCH, 4 x 4's, Steri-Strips, and Tegaderm were placed. Patient tolerated the procedure with no complications. Patient was transferred to PACU in stable condition where a chest x-ray will be obtained. SIMEON HONEYCUTT DO INTERVENTIONAL SALE CONSULTANT/[id number]
[2018-02-05] MEDS ORDERED: LIDOCAINE PATCH REMOVAL MC SCH (22:00)
[2018-02-05] MEDS: ACETAMINOPHEN 1000 MG/100 ML VIAL (NON FORMULARY) IVPB PRN (22:18)
[2018-02-05] MEDS: LIDOCAINE PATCH REMOVAL MC SCH (22:18)
[2018-02-06] MEDS: VANCOMYCIN 250 MG/5 ML ORAL SOLUTION PO SCH ×4 (00:28→18:10)
[2018-02-06] MEDS: ACETAMINOPHEN 1000 MG/100 ML VIAL (NON FORMULARY) IVPB PRN (05:18)
[2018-02-06] MEDS: DEXTROSE 5%-WATER - 1,000 ML IV SCH (05:30)
[2018-02-06] MEDS ORDERED: SODIUM CHLORIDE 250 ML IV PRN (09:36)
--- NOTE | 2018-02-06 09:57 | PN ---
Progress Note, CHANNELING MACHINE RUNNER - Note Progress Note: Selected Entries 01/28/18 01/28/18 01/28/18 06:00 09:57 10:00 Breakfast 25% Lunch Supper Temperature 97.5 F L 97.6 F 01/28/18 01/28/18 01/28/18 11:25 15:34 16:50 Breakfast Lunch 75% Supper Temperature 98.1 F 98.1 F 97.9 F 01/28/18 01/28/18 01/29/18 21:00 23:47 06:00 Breakfast Lunch Supper 50% Temperature 98.1 F 98.3 F 01/29/18 02/05/18 02/05/18 11:13 06:00 10:00 Breakfast 75% Lunch Supper Temperature 97.2 F L 97.3 F L 02/05/18 02/05/18 02/05/18 14:00 15:42 16:42 Breakfast Lunch Supper Temperature 97.8 F 97.6 F 97.8 F 02/05/18 02/05/18 02/05/18 18:00 18:54 20:41 Breakfast Lunch Supper 75% Temperature 96.0 F L 97.6 F 02/06/18 06:00 Breakfast Lunch Supper Temperature 98.4 F Laboratory Tests 01/28/18 02/05/18 12:30 06:00 WBC 5.0 6.0 Pt on full fluid diet. Medical events noted. REC;Maintain head of bed elevated with chin to neutral or flexed during mealtime and for at least an hour after meals. Feed slowly, teaspoon at a time Watch for swallow reflex before next bite/sip is given Inform Nursing if patient coughs, clears throat or sounds wet and gurgly during or after meals. Monitor tolerance
[2018-02-06] MEDS ORDERED: EPOETIN ALFA 3,000 UNIT/1 ML ML IVPUSH ONE (10:00)
[2018-02-06 10:45] LABS: HEMATOCRIT 26.1 % (32.4-45.2); HEMOGLOBIN 8.5 GM/dL (10.7-15.3); MCH 30.5 pg (25.7-33.7); MCHC 32.5 g/dl (32.0-36.0); MEAN CELL VOLUME 93.9 fl (80-96); MEAN PLT VOLUME 9.4 fl (7.5-11.1); PLATELET COUNT 175 K/MM3 (134-434); RBC 2.78 M/mm3 (3.60-5.2); RDW 16.7 % (11.6-15.6); WHITE BLOOD COUNT 5.6 K/mm3 (4.0-10.0)
[2018-02-06] MEDS: ACETAMINOPHEN 325 MG TABLET (FP) PO PRN (10:56)
[2018-02-06 11:14] LABS: ANION GAP 6 MMOL/L (8-16); BLOOD UREA NITROGEN 33 mg/dL (7-18); CALCIUM 7.6 mg/dL (8.5-10.1); CHLORIDE 98 mmol/L (98-107); CO2 22 mmol/L (21-32); CREATININE 4.5 mg/dL (0.55-1.3); GLUCOSE,RANDOM 80 mg/dL (74-106); POTASSIUM 4.9 mmol/L (3.5-5.1); SODIUM 127 mmol/L (136-145)
--- NOTE | 2018-02-06 11:37 | PN ---
Progress Note, Physician History of Present Illness: Pt seen and examined at bedside. She is awake and responsive. She is tolerating HD. She had permacath placed. - Current Medication List Current Medications: Active Medications Acetaminophen (Tylenol -) 650 mg PO Q6H PRN PRN Reason: Fever Last Admin: 02/06/18 10:56 Dose: 650 mg Acetaminophen (Ofirmev Injection -) 1,000 mg IVPB Q6H PRN PRN Reason: PAIN 1-3 Last Admin: 02/06/18 05:18 Dose: 1,000 mg Artificial Tears (Artificial Tears) 1 drop OU DAILY PRN PRN Reason: DRY EYES Fentanyl (Sublimaze Injection -) 25 mcg IVPUSH [id number] PRN PRN Reason: PAIN-PACU ORDER X 4 DOSES ONLY Lactobacillus Acidophilus (Bacid -) 1 tab PO DAILY COUNT INCLUDES THE [facility] Lidocaine (Lidoderm Patch -) 1 patch TP DAILY COUNT INCLUDES THE [facility] Metoprolol Tartrate (Lopressor -) 25 mg PO BID COUNT INCLUDES THE [facility] Last Admin: 02/05/18 22:18 Dose: 25 mg Miscellaneous (Lidoderm Patch Removal) 1 each MC DAILY@2200 COUNT INCLUDES THE [facility] Last Admin: 02/05/18 22:18 Dose: 1 each Vancomycin HCl (Vancomycin Oral Solution) 125 mg PO Q6HPO COUNT INCLUDES THE [facility] Last Admin: 02/06/18 05:18 Dose: 125 mg - Objective Vital Signs: Vital Signs Temperature 98.5 F 02/06/18 09:55 Pulse Rate 60 02/06/18 10:00 Respiratory Rate 18 02/06/18 10:00 Blood Pressure 122/59 L 02/06/18 10:00 O2 Sat by Pulse Oximetry (%) 100 02/05/18 20:43 Constitutional: Yes: Calm Eyes: Yes: Conjunctiva Clear HENT: Yes: Atraumatic Cardiovascular: Yes: S1, S2 Respiratory: Yes: On Nasal O2, Rhonchi Gastrointestinal: Yes: Soft Musculoskeletal: Yes: Other (generalized pain) Edema: No Neurological: Yes: Oriented Psychiatric: Yes: Agitated Labs: CBC, BMP 02/06/18 10:00 02/06/18 10:00 INR, PTT INR 1.50 (0.83-1.09) H 01/31/18 06:00 Problem List - Problems (1) ESRD (end stage renal disease) on dialysis Code(s): N18.6 - END STAGE RENAL DISEASE; Z99.2 - DEPENDENCE ON RENAL DIALYSIS Assessment/Plan Current Medications Generic Name Dose Route Start Last Admin Trade Name Freq PRN Reason Stop Dose Admin Acetaminophen 650 mg 02/05/18 16:05 02/06/18 10:56 Tylenol - PO 650 mg Q6H PRN Administration Fever Acetaminophen 1,000 mg 02/05/18 16:05 02/06/18 05:18 Ofirmev Injection - IVPB 1,000 mg Q6H PRN Administration PAIN 1-3 Artificial Tears 1 drop 02/05/18 16:05 Artificial Tears OU DAILY PRN DRY EYES Fentanyl 25 mcg 02/05/18 16:05 Sublimaze Injection - IVPUSH [id number] PRN PAIN-PACU ORDER X 4 DOSES ONLY Lactobacillus Acidophilus 1 tab 02/06/18 10:00 Bacid - PO DAILY [facility] Lidocaine 1 patch 02/06/18 10:00 Lidoderm Patch - TP DAILY [facility] Metoprolol Tartrate 25 mg 02/05/18 22:00 02/05/18 22:18 Lopressor - PO 25 mg BID HARPAL Administration Miscellaneous 1 each 02/05/18 22:00 02/05/18 22:18 Lidoderm Patch Removal MC 1 each DAILY@2200 HARP[facility] Administration Vancomycin HCl 125 mg 02/05/18 18:00 02/06/18 05:18 Vancomycin Oral Solution PO 125 mg Q6HPO HARP[facility] Administration Impression 1. ESRD 2. failed kidney transplant 3. hx DM 4. Hx HTN 5. altered mental status 6. post op infection 7. c.diff 8. a-fib 9. failure to thrive 10.malnutrition 11. anemia 12. GI bleed Plan - HD today - pt had permacath placed - will need fistula repair/revision - will need placement for HD - will UF volume - congestion on cxr yesterday - epogen for anemia - abx per primary team Dr Winters
--- NOTE | 2018-02-06 12:04 | PN ---
Teaching Attending Note Name of Resident: Marisela Simmons ATTENDING PHYSICIAN STATEMENT I saw and evaluated the patient. I reviewed the resident's note and discussed the case with the resident. I agree with the resident's findings and plan as documented. SUBJECTIVE:c/o sudden onset of RLE pain that started this AM. worse on movement. denies Cp, SOB, fever,chills, N/v/C/D more alert today. conversing in Turkish and Tajik fluently OBJECTIVE: Last Vital Signs Temp Pulse Resp BP Pulse Ox 98.5 F 60 18 122/59 L 100 02/06/18 09:55 02/06/18 10:00 02/06/18 10:00 02/06/18 10:00 02/05/18 20:43 Intake & Output 02/03/18 02/04/18 02/05/18 02/06/18 23:59 23:59 23:59 23:59 Intake Total 718 149 5964 Output Total 15 Balance 090 989 7425 Weight 119 lb 122 lb 2 oz General NAD, Lungs decreased breath sounds. poor inspiratory effort Abdomen soft, ND. bandage in RLQ c/d/i Extremities R calf tenderness, ASSESSMENT AND PLAN: 77 yo F with reportedly prolonged stay at [facility] for PNA, cdiff (requiring fecal transplant), 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 1. Abdominal wound dehiscence with fluid collection s/ BIJU drain placement 01/18. +ESBL ecoli in wound. completed abx course. off abx. ID on board 2. Acute GI bleed- likely diverticular. s/p EGD/colonoscopy. with 4 units PRBC transfused here. no active signs of bleeding. no indication for transfusion at this time. will monitor while here. now off eliquis 3. Failed transplant kidney in 09/2017, s/p removal/off immunosuppressants, on HD. has missed 2 session of HD now due to non functioning access. s/p permacath placement yesterday. undergoing HD at this time. plan for 1-1.5Kg fluid removal. 4. R calf pain- high concern for DVT as pt is hypercoagable however not a candidate for NOAC due to bleeding risk. other possibility is electrolyte disturbance causing muscle cramps. undergoing HD. awaiting todays labs. check doppler of the leg. will need to consider IVC filter if +for DVT 5. Acute metabolic toxic encephalopathy- likely due to renal failure and infection in setting of gradual decline from recent prolonged hospital stay. very alert and responsive today. first time she conversing. 6. 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 on vanco po, cont QID day 08/04 then will need taper. contact precautions. cont pro-biotic 7. ESBL Ecoli UTI- completed abx course 8. h/o RLE DVT, 9. h/o AFib with wide complex tachycardia- on metoprolol. now off NOAC. will need to hold due to risk of bleeding outweighs clinical benefit. family is aware 10. Prolonged QTc- Qtc 496. avoid QT prolonging medication 11. DVT ppx- SCD. hold pharmacologic anticoagulation 12. Medically optimized after HD. will need to have plan with son about dispo as they have been changing their minds frequently. decision to be made today
[2018-02-06] MEDS ORDERED: EPOETIN ALFA 2,000 UNIT/1 ML VIAL IVPUSH ONE (13:19)
[2018-02-06] MEDS: METOPROLOL TARTRATE 25 MG TABLET (FP) PO SCH ×2 (13:22→22:54)
[2018-02-06] MEDS: LIDOCAINE 5% TOPICAL PATCH TP SCH (13:22)
[2018-02-06] MEDS: LACTOBACILLUS ACIDOPHILUS 1 TABLET PO SCH (13:22)
--- NOTE | 2018-02-06 16:10 | PN ---
Physical Exam: SUBJECTIVE: Patient seen and examined at bedside this morning. No acute events overnight. Patient was more active today. She was talking to me more that she's ever had. She still complains of right leg pain. OBJECTIVE: Vital Signs Period Temp Pulse Resp BP Sys/Franco Pulse Ox Last 24 Hr 96.0 F-98.5 F 50-82 15-20 117-181/56-88 95-100 GENERAL: Lying in bed, in no acute distress. LUNGS: Breath sounds clear to auscultation bilaterally. HEART: Regular rate and rhythm, S1, S2 without murmur, rub or gallop. ABDOMEN: Soft, nontender, nondistended, normoactive bowel sounds, +open wound on the RLQ, clean, dry, intact, no purulent discharge. EXTREMITIES: palpable DP pulses bilaterally, warm, well-perfused, no edema. SKIN: Warm, dry, normal turgor Laboratory Results - last 24 hr 02/02/18 02/05/18 02/06/18 09:55 17:16 01:57 WBC RBC Hgb Hct MCV MCH MCHC RDW Plt Count MPV Sodium Potassium Chloride Carbon Dioxide Anion Gap BUN Creatinine Creat Clearance w eGFR POC Glucometer 102 92 Random Glucose Calcium Blood Type O POSITIVE Antibody Screen Positive H Antibody Identification Anti-c Crossmatch See Detail 02/06/18 02/06/18 10:00 10:00 WBC 5.6 RBC 2.78 L Hgb 8.5 L Hct 26.1 L MCV 93.9 MCH 30.5 MCHC 32.5 RDW 16.7 H Plt Count 175 D MPV 9.4 Sodium 127 L Potassium 4.9 Chloride 98 Carbon Dioxide 22 Anion Gap 6 L BUN 33 H Creatinine 4.5 H Creat Clearance w eGFR 9.45 POC Glucometer Random Glucose 80 Calcium 7.6 L Blood Type Antibody Screen Antibody Identification Crossmatch Active Medications Generic Name Dose Route Start Last Admin Trade Name Freq PRN Reason Stop Dose Admin Acetaminophen 650 mg 02/05/18 16:05 02/06/18 10:56 Tylenol - PO 650 mg Q6H PRN Administration Fever Acetaminophen 1,000 mg 02/05/18 16:05 02/06/18 05:18 Ofirmev Injection - IVPB 1,000 mg Q6H PRN Administration PAIN 1-3 Artificial Tears 1 drop 02/05/18 16:05 Artificial Tears OU DAILY PRN DRY EYES Fentanyl 25 mcg 02/05/18 16:05 Sublimaze Injection - IVPUSH [id number] PRN PAIN-PACU ORDER X 4 DOSES ONLY Lactobacillus Acidophilus 1 tab 02/06/18 10:00 02/06/18 13:22 Bacid - PO 1 tab DAILY HARPAL Administration Lidocaine 1 patch 02/06/18 10:00 02/06/18 13:22 Lidoderm Patch - TP 1 patch DAILY HARPAL Administration Metoprolol Tartrate 25 mg 02/05/18 22:00 02/06/18 13:22 Lopressor - PO 25 mg BID HARPAL Administration Miscellaneous 1 each 02/05/18 22:00 02/05/18 22:18 Lidoderm Patch Removal MC 1 each DAILY@2200 HARPAL Administration Vancomycin HCl 125 mg 02/05/18 18:00 02/06/18 14:15 Vancomycin Oral Solution PO 125 mg Q6HPO HARPAL Administration Microbiology 01/18/18 12:52 Abscess AFB Smear Concentration - Preliminary 01/18/18 12:52 Abscess Mycobacterial Culture - Preliminary 01/18/18 12:52 Abscess ADOLFO Preparation - Preliminary 01/18/18 12:52 Abscess Fungal Culture - Preliminary 01/17/18 11:40 Wound-Other Gram Stain - Final 01/17/18 11:40 Wound-Other Wound Culture - Final Escherichia Coli Proteus Mirabilis 01/18/18 12:52 Abscess Gram Stain - Final 01/18/18 12:52 Abscess Body Fluid Culture - Final Escherichia Coli Esbl [employer] Services Sales Representative 01/18/18 12:52 Abscess Anaerobic Culture - Final 01/15/18 16:52 Blood - Peripheral Venous Blood Culture - Final NO GROWTH AFTER 5 DAYS INCUBATION 01/15/18 16:52 Blood - Peripheral Venous Blood Culture - Final NO GROWTH AFTER [address] abdomen/pelvis with contrast (01/17/2018) - Multiple surgical metallic clips again limiting evaluation of the right hemipelvis soft tissue due to beam hardening artifacts. Interval slight increase in size of previously described collection in the right hemipelvis with thick, irregular and enhancing wall. It is at the expected anatomical location of a resected pelvic kidney as per history. No gross free air or free fluid in the abdomen or pelvis. Multiple cystic densities in the pancreas for which correlation with MRI is needed. Limited visualization of the gallbladder due to motion/breathing artifact with suggestion of a sludge layering posteriorly again seen. Duplex US of RUE - No evidence of deep venous thrombosis. CT abdomen/pelvis with contrast (01/15/2018) - Small to moderate size hiatus hernia. Atelectatic changes with nodular opacities in the left lung base likely representing infiltrates for which a follow-up CT scan of the chest in one to 2 weeks is recommended. Moderate size hiatus hernia. Slightly overdistended gallbladder with suggestion of a sludge layering posteriorly. Dilated common bile duct measuring 1.3 cm multiple cystic densities in the pancreas with correlation with MRI. Bilateral atrophic kidneys. Multiple surgical metallic clips in the right hemipelvis obscuring the soft tissue details. However, there is a focal low-attenuation density in the right hemipelvis measuring 4.5 cm likely representing a collection/abscess at the site of prior right renal transplant that was resected according to the submitted clinical history. Extensive diverticulosis coli mainly in the sigmoid colon without evidence of acute diverticulitis. CXR - [id number] cardiomegaly without evidence of acute lung disease. ASSESSMENT/PLAN: Patient is a 77 year old female, previously admitted at [facility] for 144 days (s/p failed renal transplant, s/p removal), discharged AMA, as per son, brought at the ED for lethargy. #Abdominal wound: s/p IR-guided drainage of serosanguinous fluid -Fluid sent for cultures - +ESBL, +non-lactose fermenting gram negative bacilli -Repeat wound cultures -+E.coli, +Proteus -ID (Dr. Shanks) consulted. Recommendations appreciated. -Ertapenem completed . -Continue PO Vancomycin for hx of cdiff. -Vancomycin 750mg PO day 07/04. Then slow taper. -Probiotic therapy. -Contact isolation. -Proper wound care. #ESRD: failed renal transplant, s/p removal -Hemodialysis (MWF) -Nephrology (Dr. Winters) consulted. Recommendations appreciated. - For HD. - epogen for anemia -Vascular surgery (Dr. Neri) consulted. Recommendations appreciated. - Permacath insertion done today. #GI bleeding: no active bleeding overnight -s/p EGD/Colonoscopy: Hiatal hernia, Gastritis, Diverticulosis, Hemorrhoids, No active bleeding -Will start Heparin 5000unit sq tid after permacath insertion -Consulted with Dr. Shell: -CTA had OTILIO stenosis and sigmoid bleeding. -pt is a poor candidate for IR-guided embolectomy -Monitor H/H -GI (Dr. Torres) consulted. Recommendations appreciated. -CTA of abdomen and pelvis done -Cardiology (Dr. Holden) consulted. Recommendations appreciated. -Prolonged QTc: More likely secondary to prominent U-waves than an actual QT prolongation -Would continue Beta Blockers if tolerated -Holding AC for GI bleed #Hypoglycemia: -On D5W at 30ml/hr -Encouraged patient to increase PO intake. #Depression vs Anxiety -Psychologist consulted. Recommendations appreciated. #Altered mental status: ?at baseline from when she came in at the hospital -likely acute metabolic toxic encephalopathy from renal failure and infection. -Speech and swallow evaluation. Recommendations appreciated: -May advance to chopped diet. -Maintain head of bed elevated with chin to neutral or flexed during mealtime and for at least an hour after meals. -Feed slowly, 1/2 teaspoon at a time. -Watch for swallow reflex before next bite/sip is given. -Inform Nursing if patient coughs, clears throat or sounds wet and gurgly during or after meals. #Hx of RLE DVT -Duplex US of RUE - No evidence of deep venous thrombosis. -SCDs applied -Eliquis 2.5 mg BID put on hold in setting of GI bleed. -Patient not a good candidate to be on AC #Atrial fibrillation -Eliquis 2.5 mg BID held. -Metoprolol (Lopressor) 25mg BID. #Anemia -likely 2/2 iron deficiency and ESRD -Epogen given. #FEN -D5W at 30ml/hr for hypoglycemia -Electrolytes wnl -May resume diet after permacath insertion. #Prophylaxis -Hold Eliquis 2.5 mg BID due to GI bleed. -SCDs to both legs #Disposition -Declined for transfer by multiple tertiary care centers. -Son wants to bring patient home once medically optimized. -For possible discharge tomorrow. -CCC on the case. Would need to arrange HD as outpatient. Patient will need the following at home: 1.Semi-electric hospital bed with a gel overlay mattress -Patient has limited mobility and cognitive functioning due to her diagnosis of ESRD and metabolic toxic encephalopathy. Patient will require frequent body position changes which she cannot complete independently and are not feasible with a regular bed to alleviate pain, prevent aspiration, and prevent further skin breakdown. 2. Lightweight wheelchair -Patient will need a lightweight wheelchair in order to complete ADLs within the home. Patient cannot self-propel in a standard wheelchair due to the metabolic encephalopathy and ESRD. Visit type - Emergency Visit Emergency Visit: Yes ED Registration Date: 01/16/18 Care time: The patient presented to the Emergency Department on the above date and was hospitalized for further evaluation of their emergent condition. - New Patient This patient is new to me today: Yes Date on this admission: 02/07/18 - Critical Care Critical Care patient: No
[2018-02-06] MEDS ORDERED: PT OWN MED DRAWER 7, Y5N ONE (22:09)
[2018-02-06] MEDS: LIDOCAINE PATCH REMOVAL MC SCH (22:56)
[2018-02-07] MEDS: VANCOMYCIN 250 MG/5 ML ORAL SOLUTION PO SCH ×5 (01:37→23:14)
[2018-02-07] MEDS: LIDOCAINE 5% TOPICAL PATCH TP SCH (09:15)
[2018-02-07] MEDS: METOPROLOL TARTRATE 25 MG TABLET (FP) PO SCH ×2 (09:15→21:48)
[2018-02-07] MEDS: LACTOBACILLUS ACIDOPHILUS 1 TABLET PO SCH (09:15)
--- NOTE | 2018-02-07 12:26 | PN ---
Teaching Attending Note Name of Resident: Marisela Simmons ATTENDING PHYSICIAN STATEMENT I saw and evaluated the patient. I reviewed the resident's note and discussed the case with the resident. I agree with the resident's findings and plan as documented. SUBJECTIVE:resting comfortable pulled out permacath last night. states she doesnt recall the event OBJECTIVE: Last Vital Signs Temp Pulse Resp BP Pulse Ox 98.1 F 66 18 165/80 100 02/07/18 10:00 02/07/18 10:02/07/18 10:02/07/18 10:02/07/18 09:00 General NAD, Lungs CTA B/L no wheezing/rales/rhonchi Extremities diffuse B/L tenderness, legs thin and frail ASSESSMENT AND PLAN: 77 yo F with reportedly prolonged stay at [facility] for PNA, cdiff (requiring fecal transplant), 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 1. Abdominal wound dehiscence with fluid collection s/ BIJU drain placement 01/18. +ESBL ecoli in wound. completed abx course. off abx. ID on board 2. Acute GI bleed- likely diverticular. s/p EGD/colonoscopy. with 4 units PRBC transfused here. no active signs of bleeding. no indication for transfusion at this time. will monitor while here. now off eliquis 3. Failed transplant kidney in 09/2017, s/p removal/off immunosuppressants, on HD. tolerated HD yesterday. pt pulled out permacath last night. will need to be replaced. outpatient HD is being set up. 4. R calf pain-appears to be more chronic in nature. pt is tender all over both legs and now stating she has had for a long time. doppler negative for DVT. 5. Acute metabolic toxic encephalopathy- likely due to renal failure and infection in setting of gradual decline from recent prolonged hospital stay. resolved. alert and responsive 6. 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 on vanco po, cont QID day 09/03 then will need taper. contact precautions. cont pro-biotic 7. ESBL Ecoli UTI- completed abx course 8. h/o RLE DVT, 9. h/o AFib with wide complex tachycardia- on metoprolol. now off NOAC. will need to hold due to risk of bleeding outweighs clinical benefit. family is aware 10. Prolonged QTc- Qtc 496. avoid QT prolonging medication 11. DVT ppx- SCD. hold pharmacologic anticoagulation 12. will need permacath replaced. call placed out to vasc surgery.
--- NOTE | 2018-02-07 13:57 | PN ---
Physical Exam: SUBJECTIVE: Patient seen and examined at bedside this morning. Patient pulled out her permacath last night. Otherwise, she remained hemodynamically stable. Patient still complains of right leg pain. US done yesterday is negative for DVT. OBJECTIVE: Vital Signs Period Temp Pulse Resp BP Sys/Franco Pulse Ox Last 24 Hr 97.3 F-98.4 F 59-82 18-20 131-165/56-80 100-100 GENERAL: Lying in bed, in no acute distress. LUNGS: Breath sounds clear to auscultation bilaterally. HEART: Regular rate and rhythm, S1, S2 without murmur, rub or gallop. ABDOMEN: Soft, nontender, nondistended, normoactive bowel sounds, +open wound on the RLQ, clean, dry, intact, no purulent discharge. EXTREMITIES: palpable DP pulses bilaterally, warm, well-perfused, no edema. SKIN: Warm, dry, normal turgor Laboratory Results - last 24 hr 02/06/18 16:21 POC Glucometer 132 Active Medications Generic Name Dose Route Start Last Admin Trade Name Earleq PRN Reason Stop Dose Admin Acetaminophen 650 mg 02/05/18 16:05 02/06/18 10:56 Tylenol - PO 650 mg Q6H PRN Administration Fever Acetaminophen 1,000 mg 02/05/18 16:05 02/06/18 05:18 Ofirmev Injection - IVPB 1,000 mg Q6H PRN Administration PAIN 1-3 Artificial Tears 1 drop 02/05/18 16:05 Artificial Tears OU DAILY PRN DRY EYES Fentanyl 25 mcg 02/05/18 16:05 Sublimaze Injection - IVPUSH [id number] PRN PAIN-PACU ORDER X 4 DOSES ONLY Lactobacillus Acidophilus 1 tab 02/06/18 10:00 02/07/18 09:15 Bacid - PO 1 tab DAILY HARPAL Administration Lidocaine 1 patch 02/06/18 10:00 02/07/18 09:15 Lidoderm Patch - TP 1 patch DAILY HARPAL Administration Metoprolol Tartrate 25 mg 02/05/18 22:00 02/07/18 09:15 Lopressor - PO 25 mg BID HARPAL Administration Miscellaneous 1 each 02/05/18 22:00 02/06/18 22:56 Lidoderm Patch Removal MC 1 each DAILY@2200 HARPAL Administration Vancomycin HCl 125 mg 02/05/18 18:00 02/07/18 12:16 Vancomycin Oral Solution PO 125 mg Q6HPO HARPAL Administration Microbiology 01/18/18 12:52 Abscess AFB Smear Concentration - Preliminary 01/18/18 12:52 Abscess Mycobacterial Culture - Preliminary 01/18/18 12:52 Abscess ADOLFO Preparation - Preliminary 01/18/18 12:52 Abscess Fungal Culture - Preliminary 01/17/18 11:40 Wound-Other Gram Stain - Final 01/17/18 11:40 Wound-Other Wound Culture - Final Escherichia Coli Proteus Mirabilis 01/18/18 12:52 Abscess Gram Stain - Final 01/18/18 12:52 Abscess Body Fluid Culture - Final Escherichia Coli Esbl Lead Php Developer 01/18/18 12:52 Abscess Anaerobic Culture - Final 01/15/18 16:52 Blood - Peripheral Venous Blood Culture - Final NO GROWTH AFTER 5 DAYS INCUBATION 01/15/18 16:52 Blood - Peripheral Venous Blood Culture - Final NO GROWTH AFTER [address] abdomen/pelvis with contrast (01/17/2018) - Multiple surgical metallic clips again limiting evaluation of the right hemipelvis soft tissue due to beam hardening artifacts. Interval slight increase in size of previously described collection in the right hemipelvis with thick, irregular and enhancing wall. It is at the expected anatomical location of a resected pelvic kidney as per history. No gross free air or free fluid in the abdomen or pelvis. Multiple cystic densities in the pancreas for which correlation with MRI is needed. Limited visualization of the gallbladder due to motion/breathing artifact with suggestion of a sludge layering posteriorly again seen. Duplex US of RUE - No evidence of deep venous thrombosis. CT abdomen/pelvis with contrast (01/15/2018) - Small to moderate size hiatus hernia. Atelectatic changes with nodular opacities in the left lung base likely representing infiltrates for which a follow-up CT scan of the chest in one to 2 weeks is recommended. Moderate size hiatus hernia. Slightly overdistended gallbladder with suggestion of a sludge layering posteriorly. Dilated common bile duct measuring 1.3 cm multiple cystic densities in the pancreas with correlation with MRI. Bilateral atrophic kidneys. Multiple surgical metallic clips in the right hemipelvis obscuring the soft tissue details. However, there is a focal low-attenuation density in the right hemipelvis measuring 4.5 cm likely representing a collection/abscess at the site of prior right renal transplant that was resected according to the submitted clinical history. Extensive diverticulosis coli mainly in the sigmoid colon without evidence of acute diverticulitis. CXR - [id number] cardiomegaly without evidence of acute lung disease. ASSESSMENT/PLAN: Patient is a 77 year old female, previously admitted at [facility] for 144 days (s/p failed renal transplant, s/p removal), discharged AMA, as per son, brought at the ED for lethargy. #Abdominal wound: s/p IR-guided drainage of serosanguinous fluid -Fluid sent for cultures - +ESBL, +non-lactose fermenting gram negative bacilli -Repeat wound cultures -+E.coli, +Proteus -ID (Dr. Shanks) consulted. Recommendations appreciated. -Ertapenem completed . -Continue PO Vancomycin for hx of cdiff. -Vancomycin 750mg PO day 09/03. Then slow taper. -Probiotic therapy. -Contact isolation. -Proper wound care. #ESRD: failed renal transplant, s/p removal -Hemodialysis (MWF) -Nephrology (Dr. Winters) consulted. Recommendations appreciated. - For HD. - epogen for anemia -Vascular surgery (Dr. Neri) consulted. Recommendations appreciated. - Permacath insertion done today. #GI bleeding: no active bleeding overnight -s/p EGD/Colonoscopy: Hiatal hernia, Gastritis, Diverticulosis, Hemorrhoids, No active bleeding -Will start Heparin 5000unit sq tid after permacath insertion -Consulted with Dr. Shell: -CTA had OTILIO stenosis and sigmoid bleeding. -pt is a poor candidate for IR-guided embolectomy -Monitor H/H -GI (Dr. Torres) consulted. Recommendations appreciated. -Cardiology (Dr. Holden) consulted. Recommendations appreciated. -Prolonged QTc: More likely secondary to prominent U-waves than an actual QT prolongation -Would continue Beta Blockers if tolerated -Holding AC for GI bleed #Hypoglycemia: -Not on any standing fluids, patient has no access. -Encouraged patient to increase PO intake. #Depression vs Anxiety -Psychologist consulted. Recommendations appreciated. #Altered mental status: ?at baseline from when she came in at the hospital -likely acute metabolic toxic encephalopathy from renal failure and infection. -Speech and swallow evaluation. Recommendations appreciated: -May advance to chopped diet. -Maintain head of bed elevated with chin to neutral or flexed during mealtime and for at least an hour after meals. -Feed slowly, 1/2 teaspoon at a time. -Watch for swallow reflex before next bite/sip is given. -Inform Nursing if patient coughs, clears throat or sounds wet and gurgly during or after meals. #Hx of RLE DVT -Duplex US of RUE - No evidence of deep venous thrombosis. -SCDs applied -Eliquis 2.5 mg BID put on hold in setting of GI bleed. -Patient not a good candidate to be on AC #Atrial fibrillation -Eliquis 2.5 mg BID held. -Metoprolol (Lopressor) 25mg BID. #Anemia -likely 2/2 iron deficiency and ESRD -Epogen given. #FEN -D5W at 30ml/hr for hypoglycemia -Electrolytes wnl -Full liquid diet. #Prophylaxis -Hold Eliquis 2.5 mg BID due to GI bleed. -SCDs to both legs #Disposition -Declined for transfer by multiple tertiary care centers. -Son wants to bring patient home once medically optimized. -CCC on the case. Would need to arrange HD as outpatient. Patient will need the following at home: 1.Semi-electric hospital bed with a gel overlay mattress -Patient has limited mobility and cognitive functioning due to her diagnosis of ESRD and metabolic toxic encephalopathy. Patient will require frequent body position changes which she cannot complete independently and are not feasible with a regular bed to alleviate pain, prevent aspiration, and prevent further skin breakdown. 2. Lightweight wheelchair -Patient will need a lightweight wheelchair in order to complete ADLs within the home. Patient cannot self-propel in a standard wheelchair due to the metabolic encephalopathy and ESRD. Visit type - Emergency Visit Emergency Visit: Yes ED Registration Date: 01/16/18 Care time: The patient presented to the Emergency Department on the above date and was hospitalized for further evaluation of their emergent condition. - New Patient This patient is new to me today: Yes Date on this admission: 02/07/18 - Critical Care Critical Care patient: No
--- NOTE | 2018-02-07 16:35 | PN ---
Progress Note, Physician History of Present Illness: Pt seen and examined at bedside. SHe is awake and appears comfortable. She pulled out her permacath. - Current Medication List Current Medications: Active Medications Acetaminophen (Tylenol -) 650 mg PO Q6H PRN PRN Reason: Fever Last Admin: 02/06/18 10:56 Dose: 650 mg Acetaminophen (Ofirmev Injection -) 1,000 mg IVPB Q6H PRN PRN Reason: PAIN 1-3 Last Admin: 02/06/18 05:18 Dose: 1,000 mg Artificial Tears (Artificial Tears) 1 drop OU DAILY PRN PRN Reason: DRY EYES Fentanyl (Sublimaze Injection -) 25 mcg IVPUSH [id number] PRN PRN Reason: PAIN-PACU ORDER X 4 DOSES ONLY Lactobacillus Acidophilus (Bacid -) 1 tab PO DAILY [facility] Last Admin: 02/07/18 09:15 Dose: 1 tab Lidocaine (Lidoderm Patch -) 1 patch TP DAILY [facility] Last Admin: 02/07/18 09:15 Dose: 1 patch Metoprolol Tartrate (Lopressor -) 25 mg PO BID [facility] Last Admin: 02/07/18 09:15 Dose: 25 mg Miscellaneous (Lidoderm Patch Removal) 1 each MC DAILY@2200 [facility] Last Admin: 02/06/18 22:56 Dose: 1 each Vancomycin HCl (Vancomycin Oral Solution) 125 mg PO Q6HPO [facility] Last Admin: 02/07/18 12:16 Dose: 125 mg - Objective Vital Signs: Vital Signs Temperature 98.0 F 02/07/18 14:00 Pulse Rate 69 02/07/18 14:00 Respiratory Rate 18 02/07/18 14:00 Blood Pressure 152/75 02/07/18 14:00 O2 Sat by Pulse Oximetry (%) 100 02/07/18 09:00 Constitutional: Yes: Calm Eyes: Yes: Conjunctiva Clear Cardiovascular: Yes: S1, S2 Respiratory: Yes: CTA Bilaterally Gastrointestinal: Yes: Soft Genitourinary: Yes: Incontinence Musculoskeletal: Yes: Muscle Weakness Edema: No Labs: CBC, BMP 02/06/18 10:00 02/06/18 10:00 INR, PTT INR 1.50 (0.83-1.09) H 01/31/18 06:00 Problem List - Problems (1) ESRD (end stage renal disease) on dialysis Code(s): N18.6 - END STAGE RENAL DISEASE; Z99.2 - DEPENDENCE ON RENAL DIALYSIS Assessment/Plan Current Medications Generic Name Dose Route Start Last Admin Trade Name Freq PRN Reason Stop Dose Admin Acetaminophen 650 mg 02/05/18 16:05 02/06/18 10:56 Tylenol - PO 650 mg Q6H PRN Administration Fever Acetaminophen 1,000 mg 02/05/18 16:05 02/06/18 05:18 Ofirmev Injection - IVPB 1,000 mg Q6H PRN Administration PAIN 1-3 Artificial Tears 1 drop 02/05/18 16:05 Artificial Tears OU DAILY PRN DRY EYES Fentanyl 25 mcg 02/05/18 16:05 Sublimaze Injection - IVPUSH [id number] PRN PAIN-PACU ORDER X 4 DOSES ONLY Lactobacillus Acidophilus 1 tab 02/06/18 10:00 02/07/18 09:15 Bacid - PO 1 tab DAILY [facility] Administration Lidocaine 1 patch 02/06/18 10:00 02/07/18 09:15 Lidoderm Patch - TP 1 patch DAILY [facility] Administration Metoprolol Tartrate 25 mg 02/05/18 22:00 02/07/18 09:15 Lopressor - PO 25 mg BID [facility] Administration Miscellaneous 1 each 02/05/18 22:00 02/06/18 22:56 Lidoderm Patch Removal MC 1 each DAILY@2200 [facility] Administration Vancomycin HCl 125 mg 02/05/18 18:00 02/07/18 12:16 Vancomycin Oral Solution PO 125 mg Q6HPO [facility] Administration Impression 1. ESRD 2. failed kidney transplant 3. hx DM 4. Hx HTN 5. altered mental status 6. post op infection 7. c.diff 8. a-fib 9. failure to thrive 10.malnutrition 11. anemia 12. GI bleed Plan - next HD tomorrow - spoke to vascular, will place permacath - will need fistula repair/revision - epogen for anemia - abx per primary team Dr Winters
[2018-02-07] MEDS: ACETAMINOPHEN 325 MG TABLET (FP) PO PRN (17:36)
[2018-02-07] MEDS: LIDOCAINE PATCH REMOVAL MC SCH (21:51)
[2018-02-08] MEDS: VANCOMYCIN 250 MG/5 ML ORAL SOLUTION PO SCH ×3 (05:08→17:47)
[2018-02-08] MEDS ORDERED: GLUCAGON 1 MG KIT IM ONE (06:00)
[2018-02-08] MEDS ORDERED: SODIUM CHLORIDE 250 ML IV PRN ×2 (06:52→07:01)
[2018-02-08] MEDS ORDERED: EPOETIN ALFA 10,000 UNIT/1 ML VIAL IVPUSH ONE ×2 (07:00→12:30)
[2018-02-08] MEDS: METOPROLOL TARTRATE 25 MG TABLET (FP) PO SCH ×2 (09:31→21:26)
[2018-02-08] MEDS ORDERED: HEPARIN NA (PORCINE) 5,000 UNITS/ML 1ML VIAL ONE (09:42)
[2018-02-08] MEDS ORDERED: LIDOCAINE HCL 1%, 10 MG/ML (20ML VIAL) ONE (09:43)
[2018-02-08] MEDS ORDERED: MIDAZOLAM HCL 2 MG/2 ML SINGLE DOSE VIAL ONE (10:05)
--- NOTE | 2018-02-08 10:55 | PN ---
Teaching Attending Note Name of Resident: Marisela Simmons ATTENDING PHYSICIAN STATEMENT I saw and evaluated the patient. I reviewed the resident's note and discussed the case with the resident. I agree with the resident's findings and plan as documented. SUBJECTIVE:resting comfortable. denies Cp, SOB, fever, chills, N/V/C/D OBJECTIVE: Last Vital Signs Temp Pulse Resp BP Pulse Ox 98 F 65 18 162/62 94 L 02/08/18 05:53 02/08/18 06:30 02/08/18 06:30 02/08/18 06:30 02/07/18 21:00 General NAD, Lungs CTA B/L no wheezing/rales/rhonchi Extremities diffuse B/L tenderness, legs thin and frail ASSESSMENT AND PLAN: 77 yo F with reportedly prolonged stay at [facility] for PNA, cdiff (requiring fecal transplant), 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 1. Abdominal wound dehiscence with fluid collection s/ BIJU drain placement 01/18. +ESBL ecoli in wound. completed abx course. off abx. ID on board 2. Acute GI bleed- likely diverticular. s/p EGD/colonoscopy. with 4 units PRBC transfused here. no active signs of bleeding. no indication for transfusion at this time. will monitor while here. now off eliquis 3. Failed transplant kidney in 09/2017, s/p removal/off immunosuppressants, on HD. tolerated HD yesterday. NPO for permacath placement today.scheduled for HD after. outpatient HD is being set up. 4. R calf pain-appears to be more chronic in nature. pt is tender all over both legs and now stating she has had for a long time. doppler negative for DVT. 5. Acute metabolic toxic encephalopathy- likely due to renal failure and infection in setting of gradual decline from recent prolonged hospital stay. resolved. alert and responsive 6. 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 on vanco po, cont QID day 10/04 then will need taper. contact precautions. cont pro-biotic 7. ESBL Ecoli UTI- completed abx course 8. h/o RLE DVT, 9. h/o AFib with wide complex tachycardia- on metoprolol. now off NOAC. will need to hold due to risk of bleeding outweighs clinical benefit. family is aware 10. Prolonged QTc- Qtc 496. avoid QT prolonging medication 11. DVT ppx- SCD. hold pharmacologic anticoagulation 12. once permacath is secured will be optimized for discharge and plan is for home at family request and also not having any SNF days left for the year. will need to eventually have AV graft fixed so that it can be functioning. once outpatient HD is establish is ready for discharge
[2018-02-08] MEDS ORDERED: ceFAZolin SODIUM 1 GM VIAL ONE (11:03)
[2018-02-08] MEDS ORDERED: ceFAZolin SODIUM 1 GM VIAL IVPB ONE (11:10)
[2018-02-08] MEDS ORDERED: LIDOCAINE HCL 1%, 10 MG/ML (50 mL VIAL) IJ ONE (11:15)
--- NOTE | 2018-02-08 11:37 | OP ---
Operative Note - Note: Operative Date: 02/08/18 Pre-Operative Diagnosis: ESRD Operation: Insertion of permacath Post-Operative Diagnosis: Same as Pre-op Surgeon: Simeon Neri Anesthesia: Fractional Estimated Blood Loss (mls): 20 Operative Report Dictated: Yes
[2018-02-08] MEDS ORDERED: ARTIFICIAL TEARS (POLYVINYL ALCOHOL) OPTH DROPS OU PRN (12:12)
[2018-02-08] MEDS ORDERED: LIDOCAINE PATCH REMOVAL MC SCH (12:12)
--- NOTE | 2018-02-08 12:54 | PN ---
Physical Exam: SUBJECTIVE: Patient seen and examined at bedside this morning. No acute events overnight. Patient has no new complaints. BGM at 50s-60s. OJ given. Patient for permacath insertion followed by hemodialysis today. OBJECTIVE: Vital Signs Period Temp Pulse Resp BP Sys/Franco Pulse Ox Last 24 Hr 97 F-98.0 F 50-69 14-18 152-184/58-94 94-99 GENERAL: Lying in bed, in no acute distress. LUNGS: Breath sounds clear to auscultation bilaterally. HEART: Regular rate and rhythm, S1, S2 without murmur, rub or gallop. ABDOMEN: Soft, nontender, nondistended, normoactive bowel sounds, +open wound on the RLQ, clean, dry, intact, no purulent discharge. EXTREMITIES: palpable DP pulses bilaterally, warm, well-perfused, no edema. SKIN: Warm, dry, normal turgor Laboratory Results - last 24 hr 02/07/18 02/07/18 02/08/18 21:47 22:55 05:12 POC Glucometer 67 77 64 02/08/18 02/08/18 06:07 06:48 POC Glucometer 62 77 Active Medications Generic Name Dose Route Start Last Admin Trade Name Freq PRN Reason Stop Dose Admin Acetaminophen 650 mg 02/08/18 12:12 Tylenol - PO Q6H PRN Fever Artificial Tears 1 drop 02/08/18 12:12 Artificial Tears OU DAILY PRN DRY EYES Sodium Chloride 250 mls @ 3,000 mls/hr 02/08/18 12:12 Normal Saline - IV PRN PRN Hypotension during Dialysis Lactobacillus Acidophilus 1 tab 02/09/18 10:00 Bacid - PO DAILY [facility] Lidocaine 1 patch 02/09/18 10:00 Lidoderm Patch - TP DAILY [facility] Metoprolol Tartrate 25 mg 02/08/18 22:00 Lopressor - PO BID [facility] Miscellaneous 1 each 02/08/18 22:00 Lidoderm Patch Removal MC DAILY@2200 [facility] Vancomycin HCl 125 mg 02/08/18 18:00 Vancomycin Oral Solution PO Q6HPO [facility] Microbiology 01/18/18 12:52 Abscess AFB Smear Concentration - Preliminary 01/18/18 12:52 Abscess Mycobacterial Culture - Preliminary 01/18/18 12:52 Abscess ADOLFO Preparation - Preliminary 01/18/18 12:52 Abscess Fungal Culture - Preliminary 01/17/18 11:40 Wound-Other Gram Stain - Final 01/17/18 11:40 Wound-Other Wound Culture - Final Escherichia Coli Proteus Mirabilis 01/18/18 12:52 Abscess Gram Stain - Final 01/18/18 12:52 Abscess Body Fluid Culture - Final Escherichia Coli Esbl Earth Observations Chief Scientist 01/18/18 12:52 Abscess Anaerobic Culture - Final 01/15/18 16:52 Blood - Peripheral Venous Blood Culture - Final NO GROWTH AFTER 5 DAYS INCUBATION 01/15/18 16:52 Blood - Peripheral Venous Blood Culture - Final NO GROWTH AFTER [address] abdomen/pelvis with contrast (01/17/2018) - Multiple surgical metallic clips again limiting evaluation of the right hemipelvis soft tissue due to beam hardening artifacts. Interval slight increase in size of previously described collection in the right hemipelvis with thick, irregular and enhancing wall. It is at the expected anatomical location of a resected pelvic kidney as per history. No gross free air or free fluid in the abdomen or pelvis. Multiple cystic densities in the pancreas for which correlation with MRI is needed. Limited visualization of the gallbladder due to motion/breathing artifact with suggestion of a sludge layering posteriorly again seen. Duplex US of RUE - No evidence of deep venous thrombosis. CT abdomen/pelvis with contrast (01/15/2018) - Small to moderate size hiatus hernia. Atelectatic changes with nodular opacities in the left lung base likely representing infiltrates for which a follow-up CT scan of the chest in one to 2 weeks is recommended. Moderate size hiatus hernia. Slightly overdistended gallbladder with suggestion of a sludge layering posteriorly. Dilated common bile duct measuring 1.3 cm multiple cystic densities in the pancreas with correlation with MRI. Bilateral atrophic kidneys. Multiple surgical metallic clips in the right hemipelvis obscuring the soft tissue details. However, there is a focal low-attenuation density in the right hemipelvis measuring 4.5 cm likely representing a collection/abscess at the site of prior right renal transplant that was resected according to the submitted clinical history. Extensive diverticulosis coli mainly in the sigmoid colon without evidence of acute diverticulitis. CXR - [id number] cardiomegaly without evidence of acute lung disease. ASSESSMENT/PLAN: Patient is a 77 year old female, previously admitted at [facility] for 144 days (s/p failed renal transplant, s/p removal), discharged AMA, as per son, brought at the ED for lethargy. #Abdominal wound: s/p IR-guided drainage of serosanguinous fluid -Fluid sent for cultures - +ESBL, +non-lactose fermenting gram negative bacilli -Repeat wound cultures -+E.coli, +Proteus -ID (Dr. Shanks) consulted. Recommendations appreciated. -Ertapenem completed . -Continue PO Vancomycin for hx of cdiff. -Vancomycin 750mg PO day 10/04. Then slow taper. -Probiotic therapy. -Contact isolation. -Proper wound care. #ESRD: failed renal transplant, s/p removal -Hemodialysis (MWF) -Nephrology (Dr. Winters) consulted. Recommendations appreciated. - For HD. - epogen for anemia -Vascular surgery (Dr. Neri) consulted. Recommendations appreciated. - Permacath insertion done today. #GI bleeding: no active bleeding overnight -s/p EGD/Colonoscopy: Hiatal hernia, Gastritis, Diverticulosis, Hemorrhoids, No active bleeding -Will start Heparin 5000unit sq tid after permacath insertion -Consulted with Dr. Shell: -CTA had OTILIO stenosis and sigmoid bleeding. -pt is a poor candidate for IR-guided embolectomy -Monitor H/H -GI (Dr. Torres) consulted. Recommendations appreciated. -Cardiology (Dr. Holden) consulted. Recommendations appreciated. -Prolonged QTc: More likely secondary to prominent U-waves than an actual QT prolongation -Would continue Beta Blockers if tolerated -Holding AC for GI bleed #Hypoglycemia: BGM 50s today -NPO overnight for permacath insertion today. -Not on any standing fluids, patient has no access. -Lawrence juice 30 ml given -BGM q6h #Depression vs Anxiety -Psychologist consulted. Recommendations appreciated. #Altered mental status: ?at baseline from when she came in at the hospital -likely acute metabolic toxic encephalopathy from renal failure and infection. -Speech and swallow evaluation. Recommendations appreciated: -May advance to chopped diet. -Maintain head of bed elevated with chin to neutral or flexed during mealtime and for at least an hour after meals. -Feed slowly, 1/2 teaspoon at a time. -Watch for swallow reflex before next bite/sip is given. -Inform Nursing if patient coughs, clears throat or sounds wet and gurgly during or after meals. #Hx of RLE DVT -Duplex US of RUE - No evidence of deep venous thrombosis. -SCDs applied -Eliquis 2.5 mg BID put on hold in setting of GI bleed. -Patient not a good candidate to be on AC #Atrial fibrillation -Eliquis 2.5 mg BID held. -Metoprolol (Lopressor) 25mg BID. #Anemia -likely 2/2 iron deficiency and ESRD -Epogen given. #FEN -D5W at 30ml/hr for hypoglycemia -Electrolytes wnl -Full liquid diet. #Prophylaxis -Hold Eliquis 2.5 mg BID due to GI bleed. -SCDs to both legs #Disposition -Declined for transfer by multiple tertiary care centers. -Son wants to bring patient home once medically optimized. -CCC on the case. Would need to arrange HD as outpatient. Patient will need the following at home: 1.Semi-electric hospital bed with a gel overlay mattress -Patient has limited mobility and cognitive functioning due to her diagnosis of ESRD and metabolic toxic encephalopathy. Patient will require frequent body position changes which she cannot complete independently and are not feasible with a regular bed to alleviate pain, prevent aspiration, and prevent further skin breakdown. 2. Lightweight wheelchair -Patient will need a lightweight wheelchair in order to complete ADLs within the home. Patient cannot self-propel in a standard wheelchair due to the metabolic encephalopathy and ESRD. Visit type - Emergency Visit Emergency Visit: Yes ED Registration Date: 01/16/18 Care time: The patient presented to the Emergency Department on the above date and was hospitalized for further evaluation of their emergent condition. - New Patient This patient is new to me today: Yes Date on this admission: 02/08/18 - Critical Care Critical Care patient: No
--- NOTE | 2018-02-08 13:24 | OP ---
DATE OF OPERATION: 02/08/2018 PREOPERATIVE DIAGNOSIS: End-stage renal disease. POSTOPERATIVE DIAGNOSIS: End-stage renal disease. PROCEDURE: Insertion of Permacath. SURGEON: Simeon Honeycutt DO ANESTHESIA: Fractional. BLOOD LOSS: 20 mL. Patient is a 77-year-old female that needs a new Permacath. The Permacath had been pulled out. Patient's family consented for the procedure understanding all risks, benefits, and alternatives. Patient was then brought into the operating room and laid on the operating table in a supine manner. Area of the right neck and chest were prepped and draped in sterile surgical manner. We, under ultrasound guidance, visualized the right internal jugular vein and 10 mL of lidocaine 1% was injected there. We then, under ultrasound guidance, used our micropuncture needle and punctured the right internal jugular vein. Micropuncture wire was inserted, and micropuncture sheath was inserted, and a 0.035 floppy guidewire was inserted under fluoroscopy. We then injected 10 mL of lidocaine 1% above and below the clavicle. We then used a No. 11 blade and made a 1-cm incision at the puncture site. We then went ahead and used our old exit wound below the clavicle, and we tunneled the Permacath up to the puncture site. We then used our breakaway sheath and placed over the guidewire into the vein under fluoroscopy, and the cannula and guidewire were removed. Catheter was placed inside the sheath. Sheath was broken away. The catheter was placed inside the vein. Neck of the catheter was nice and smooth. Tip of the catheter was located inside the right atrium. We then jarrell back on each port of the catheter, and there was good flow. Heparinized saline was injected, and 2000 units of IV heparin was injected into each port. Biosyn 4-0 was then used in 3 simple stitches was placed at the puncture site. Nylon 3-0 was used, and the catheter was attached to the skin. BIOPATCH, 4 x 4's, Steri-Strips, and Tegaderm were placed. Patient tolerated the procedure with no complications. Patient was transferred to PACU in stable condition where a chest x-ray will be obtained. SIMEON HONEYCUTT DO MEDICINE AIDE/[id number]
[2018-02-08] MEDS: LACTOBACILLUS ACIDOPHILUS 1 TABLET PO SCH (13:29)
[2018-02-08] MEDS: LIDOCAINE 5% TOPICAL PATCH TP SCH ×2 (13:34→13:35)
[2018-02-08 14:17] LABS: HEMATOCRIT 25.7 % (32.4-45.2); HEMOGLOBIN 8.2 GM/dL (10.7-15.3); MCH 30.6 pg (25.7-33.7); MCHC 31.9 g/dl (32.0-36.0); MEAN PLT VOLUME 8.8 fl (7.5-11.1); PLATELET COUNT 191 K/MM3 (134-434); RBC 2.67 M/mm3 (3.60-5.2); RDW 16.8 % (11.6-15.6); WHITE BLOOD COUNT 5.4 K/mm3 (4.0-10.0)
[2018-02-08 14:58] LABS: CREATININE 3.5 mg/dL (0.55-1.3)
[2018-02-08 15:12] LABS: ANION GAP 5 MMOL/L (8-16); BLOOD UREA NITROGEN 21 mg/dL (7-18); CHLORIDE 104 mmol/L (98-107); CO2 28 mmol/L (21-32); GLUCOSE,RANDOM 124 mg/dL (74-106); POTASSIUM 4.7 mmol/L (3.5-5.1); SODIUM 137 mmol/L (136-145)
--- NOTE | 2018-02-08 15:27 | PN ---
Progress Note, Physician History of Present Illness: Pt seen and examined at bedside. She tolerated HD. She is tolerating diet. - Current Medication List Current Medications: Active Medications Acetaminophen (Tylenol -) 650 mg PO Q6H PRN PRN Reason: Fever Artificial Tears (Artificial Tears) 1 drop OU DAILY PRN PRN Reason: DRY EYES Sodium Chloride (Normal Saline -) 250 mls @ 3,000 mls/hr IV PRN PRN PRN Reason: Hypotension during Dialysis Lactobacillus Acidophilus (Bacid -) 1 tab PO DAILY [facility] Lidocaine (Lidoderm Patch -) 1 patch TP DAILY [facility] Last Admin: 02/08/18 13:34 Dose: 1 patch Metoprolol Tartrate (Lopressor -) 25 mg PO BID [facility] Miscellaneous (Lidoderm Patch Removal) 1 each MC DAILY@2200 [facility] Vancomycin HCl (Vancomycin Oral Solution) 125 mg PO Q6HPO [facility] - Objective Vital Signs: Vital Signs Temperature 97.5 F L 02/08/18 14:43 Pulse Rate 62 02/08/18 14:43 Respiratory Rate 18 02/08/18 14:43 Blood Pressure 133/72 02/08/18 14:43 O2 Sat by Pulse Oximetry (%) 99 02/08/18 13:00 Constitutional: Yes: Calm Eyes: Yes: Conjunctiva Clear HENT: Yes: Atraumatic Cardiovascular: Yes: S1, S2 Respiratory: Yes: CTA Bilaterally Gastrointestinal: Yes: Normal Bowel Sounds, Soft Genitourinary: Yes: WNL Musculoskeletal: Yes: Muscle Weakness Edema: No Neurological: Yes: Oriented Labs: CBC, BMP 02/08/18 13:40 02/08/18 13:40 INR, PTT INR 1.50 (0.83-1.09) H 01/31/18 06:00 Problem List - Problems (1) ESRD (end stage renal disease) on dialysis Code(s): N18.6 - END STAGE RENAL DISEASE; Z99.2 - DEPENDENCE ON RENAL DIALYSIS Assessment/Plan Current Medications Generic Name Dose Route Start Last Admin Trade Name Freq PRN Reason Stop Dose Admin Acetaminophen 650 mg 02/08/18 12:12 Tylenol - PO Q6H PRN Fever Artificial Tears 1 drop 02/08/18 12:12 Artificial Tears OU DAILY PRN DRY EYES Sodium Chloride 250 mls @ 3,000 mls/hr 02/08/18 12:12 Normal Saline - IV PRN PRN Hypotension during Dialysis Lactobacillus Acidophilus 1 tab 02/09/18 10:00 Bacid - PO DAILY [facility] Lidocaine 1 patch 02/09/18 10:00 02/08/18 13:34 Lidoderm Patch - TP 1 patch DAILY [facility] Administration Metoprolol Tartrate 25 mg 02/08/18 22:00 Lopressor - PO BID [facility] Miscellaneous 1 each 02/08/18 22:00 Lidoderm Patch Removal MC DAILY@2200 [facility] Vancomycin HCl 125 mg 02/08/18 18:00 Vancomycin Oral Solution PO Q6HPO [facility] Impression 1. ESRD 2. failed kidney transplant 3. hx DM 4. Hx HTN 5. altered mental status 6. post op infection 7. c.diff 8. a-fib 9. failure to thrive 10.malnutrition 11. anemia 12. GI bleed Plan - HD today - she had a permacath placed - pending placement in outpt HD unit - will need fistula repair/revision - epogen for anemia - abx per primary team Dr Winters
[2018-02-08] MEDS: ACETAMINOPHEN 325 MG TABLET (FP) PO PRN (21:26)
[2018-02-08] MEDS: LIDOCAINE PATCH REMOVAL MC SCH (21:27)
[2018-02-09] MEDS: VANCOMYCIN 250 MG/5 ML ORAL SOLUTION PO SCH ×4 (00:51→17:07)
[2018-02-09 07:25] LABS: HEMATOCRIT 26.3 % (32.4-45.2); HEMOGLOBIN 8.6 GM/dL (10.7-15.3); MCHC 32.6 g/dl (32.0-36.0); MEAN CELL VOLUME 95.1 fl (80-96); MEAN PLT VOLUME 8.8 fl (7.5-11.1); PLATELET COUNT 175 K/MM3 (134-434); RBC 2.77 M/mm3 (3.60-5.2); RDW 16.6 % (11.6-15.6); WHITE BLOOD COUNT 4.7 K/mm3 (4.0-10.0)
[2018-02-09] MEDS: METOPROLOL TARTRATE 25 MG TABLET (FP) PO SCH ×2 (10:27→22:17)
[2018-02-09] MEDS: LIDOCAINE 5% TOPICAL PATCH TP SCH (10:27)
[2018-02-09] MEDS: LACTOBACILLUS ACIDOPHILUS 1 TABLET PO SCH (10:27)
--- NOTE | 2018-02-09 14:35 | PN ---
Progress Note (short form) - Note Progress Note: resting comfortable. Current Medications Generic Name Dose Route Start Last Admin Trade Name Freq PRN Reason Stop Dose Admin Acetaminophen 650 mg 02/08/18 12:12 02/08/18 21:26 Tylenol - PO 650 mg Q6H PRN Administration Fever Artificial Tears 1 drop 02/08/18 12:12 Artificial Tears OU DAILY PRN DRY EYES Sodium Chloride 250 mls @ 3,000 mls/hr 02/08/18 12:12 Normal Saline - IV PRN PRN Hypotension during Dialysis Lactobacillus Acidophilus 1 tab 02/09/18 10:00 02/09/18 10:27 Bacid - PO 1 tab DAILY [facility] Administration Lidocaine 1 patch 02/09/18 10:00 02/09/18 10:27 Lidoderm Patch - TP 1 patch DAILY [facility] Administration Metoprolol Tartrate 25 mg 02/08/18 22:00 02/09/18 10:27 Lopressor - PO 25 mg BID [facility] Administration Miscellaneous 1 each 02/08/18 22:00 02/08/18 21:27 Lidoderm Patch Removal MC 1 each DAILY@2200 [facility] Administration Vancomycin HCl 125 mg 02/08/18 18:00 02/09/18 06:20 Vancomycin Oral Solution PO 125 mg Q6HPO [facility] Administration Last Vital Signs Temp Pulse Resp BP Pulse Ox 97.8 F 64 18 158/72 99 02/09/18 10:00 02/09/18 10:00 02/09/18 10:00 02/09/18 10:00 02/09/18 07:53 General NAD, Lungs CTA B/L no wheezing/rales/rhonchi Extremities diffuse B/L tenderness, legs thin and frail CBCD WBC 4.7 K/mm3 (4.0-10.0) 02/09/18 06:30 RBC 2.77 M/mm3 (3.60-5.2) L 02/09/18 06:30 Hgb 8.6 GM/dL (10.7-15.3) L 02/09/18 06:30 Hct 26.3 % (32.4-45.2) L 02/09/18 06:30 MCV 95.1 fl (80-96) 02/09/18 06:30 MCHC 32.6 g/dl (32.0-36.0) 02/09/18 06:30 RDW 16.6 % (11.6-15.6) H 02/09/18 06:30 Plt Count 175 K/MM3 (134-434) 02/09/18 06:30 MPV 8.8 fl (7.5-11.1) 02/09/18 06:30 ASSESSMENT AND PLAN: 77 yo F with reportedly prolonged stay at [facility] for PNA, cdiff (requiring fecal transplant), 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 1. Abdominal wound dehiscence with fluid collection s/ BIJU drain placement 01/18. +ESBL ecoli in wound. completed abx course. off abx. ID on board 2. Acute GI bleed- likely diverticular. s/p EGD/colonoscopy. with 4 units PRBC transfused here. no active signs of bleeding. no indication for transfusion at this time. will monitor while here. now off eliquis 3. Failed transplant kidney in 09/2017, s/p removal/off immunosuppressants, on HD. s/p permacath placement 02/08. tolerated HD yesterday. awaiting for HD outpatient to be set up. 4. R calf pain-appears to be more chronic in nature. pt is tender all over both legs and now stating she has had for a long time. doppler negative for DVT. 5. Acute metabolic toxic encephalopathy- likely due to renal failure and infection in setting of gradual decline from recent prolonged hospital stay. resolved. alert and responsive 6. 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 on vanco po, cont QID day 11/03 then will need taper. contact precautions. cont pro-biotic 7. ESBL Ecoli UTI- completed abx course 8. h/o RLE DVT, 9. h/o AFib with wide complex tachycardia- on metoprolol. now off NOAC. will need to hold due to risk of bleeding outweighs clinical benefit. family is aware 10. Prolonged QTc- Qtc 496. avoid QT prolonging medication 11. DVT ppx- SCD. hold pharmacologic anticoagulation 12. pt is medically optimized for discharge at this time. However unable to secure HD at outpatient center. will remain hospitalized until can be arranged. Visit type - Emergency Visit Emergency Visit: Yes ED Registration Date: 01/16/18 Care time: The patient presented to the Emergency Department on the above date and was hospitalized for further evaluation of their emergent condition. - New Patient This patient is new to me today: No - Critical Care Critical Care patient: No - Discharge Referral Referred to [facility] No
[2018-02-09] MEDS ORDERED: PT OWN MED DRAWER 7, Y5N ONE (18:45)
--- NOTE | 2018-02-09 20:09 | PN ---
Progress Note (short form) - Note Progress Note: covering dr belcher Problems 1. ESRD 2. failed kidney transplant 3. hx DM 4. Hx HTN 5. altered mental status 6. post op infection 7. c.diff 8. a-fib 9. failure to thrive 10.malnutrition 11. anemia 12. GI bleed Current Medications Acetaminophen (Tylenol -) 650 mg PO Q6H PRN PRN Reason: Fever Last Admin: 02/08/18 21:26 Dose: 650 mg Artificial Tears (Artificial Tears) 1 drop OU DAILY PRN PRN Reason: DRY EYES Sodium Chloride (Normal Saline -) 250 mls @ 3,000 mls/hr IV PRN PRN PRN Reason: Hypotension during Dialysis Lactobacillus Acidophilus (Bacid -) 1 tab PO DAILY [facility] Last Admin: 02/10/18 09:41 Dose: 1 tab Lidocaine (Lidoderm Patch -) 1 patch TP DAILY [facility] Last Admin: 02/10/18 09:40 Dose: 1 patch Metoprolol Tartrate (Lopressor -) 25 mg PO BID [facility] Last Admin: 02/10/18 09:41 Dose: 25 mg Miscellaneous (Lidoderm Patch Removal) 1 each MC DAILY@2200 [facility] Last Admin: 02/09/18 22:17 Dose: 1 each Vancomycin HCl (Vancomycin Oral Solution) 125 mg PO Q6HPO [facility] Last Admin: 02/10/18 12:40 Dose: 125 mg Last Vital Signs Temp Pulse Resp BP Pulse Ox 97.9 F 86 18 148/78 99 02/10/18 09:48 02/10/18 09:48 02/10/18 09:48 02/10/18 09:48 02/10/18 07:55 lungs clear heart reg abd soft CBC, BMP 02/09/18 06:30 02/08/18 13:40 Plan- hd sunday - pending placement in outpt HD unit - will need fistula repair/revision - epogen for anemia - abx per primary team Plan - HD sunday
[2018-02-09] MEDS: LIDOCAINE PATCH REMOVAL MC SCH (22:17)
[2018-02-10] MEDS: VANCOMYCIN 250 MG/5 ML ORAL SOLUTION PO SCH ×5 (00:05→23:06)
[2018-02-10] MEDS: LIDOCAINE 5% TOPICAL PATCH TP SCH (09:40)
[2018-02-10] MEDS: METOPROLOL TARTRATE 25 MG TABLET (FP) PO SCH ×2 (09:41→22:26)
[2018-02-10] MEDS: LACTOBACILLUS ACIDOPHILUS 1 TABLET PO SCH (09:41)
--- NOTE | 2018-02-10 12:20 | PN ---
Physical Exam: SUBJECTIVE: Patient seen and examined at bedside this morning. No acute events overnight. Patient was put on wrist restraints due to pulling of IV lines. BGMs overnight wnl, and patient is reported to have a good appetite. OBJECTIVE: Vital Signs Period Temp Pulse Resp BP Sys/Franco Pulse Ox Last 24 Hr 97.8 F-97.9 F 73-86 18-18 148-164/78-83 99-99 GENERAL: Lying in bed, in no acute distress. LUNGS: Breath sounds clear to auscultation bilaterally. HEART: Regular rate and rhythm, S1, S2 without murmur, rub or gallop. ABDOMEN: Soft, nontender, nondistended, normoactive bowel sounds, +open wound on the RLQ, clean, dry, intact, no purulent discharge. EXTREMITIES: palpable DP pulses bilaterally, warm, well-perfused, no edema. +R knee tenderness SKIN: Warm, dry, normal turgor Laboratory Results - last 24 hr 02/09/18 02/09/18 02/10/18 16:28 20:39 05:39 POC Glucometer 270 128 86 02/10/18 11:21 POC Glucometer 98 Active Medications Generic Name Dose Route Start Last Admin Trade Name Freq PRN Reason Stop Dose Admin Acetaminophen 650 mg 02/08/18 12:12 02/08/18 21:26 Tylenol - PO 650 mg Q6H PRN Administration Fever Artificial Tears 1 drop 02/08/18 12:12 Artificial Tears OU DAILY PRN DRY EYES Sodium Chloride 250 mls @ 3,000 mls/hr 02/08/18 12:12 Normal Saline - IV PRN PRN Hypotension during Dialysis Lactobacillus Acidophilus 1 tab 02/09/18 10:00 02/10/18 09:41 Bacid - PO 1 tab DAILY [facility] Administration Lidocaine 1 patch 02/09/18 10:00 02/10/18 09:40 Lidoderm Patch - TP 1 patch DAILY [facility] Administration Metoprolol Tartrate 25 mg 02/08/18 22:00 02/10/18 09:41 Lopressor - PO 25 mg BID [facility] Administration Miscellaneous 1 each 02/08/18 22:00 02/09/18 22:17 Lidoderm Patch Removal MC 1 each DAILY@2200 [facility] Administration Vancomycin HCl 125 mg 02/08/18 18:00 02/10/18 06:03 Vancomycin Oral Solution PO 125 mg Q6HPO [facility] Administration Microbiology 01/18/18 12:52 Abscess AFB Smear Concentration - Preliminary 01/18/18 12:52 Abscess Mycobacterial Culture - Preliminary 01/18/18 12:52 Abscess ADOLFO Preparation - Preliminary 01/18/18 12:52 Abscess Fungal Culture - Preliminary 01/17/18 11:40 Wound-Other Gram Stain - Final 01/17/18 11:40 Wound-Other Wound Culture - Final Escherichia Coli Proteus Mirabilis 01/18/18 12:52 Abscess Gram Stain - Final 01/18/18 12:52 Abscess Body Fluid Culture - Final Escherichia Coli Esbl Coremaker Pipe 01/18/18 12:52 Abscess Anaerobic Culture - Final 01/15/18 16:52 Blood - Peripheral Venous Blood Culture - Final NO GROWTH AFTER 5 DAYS INCUBATION 01/15/18 16:52 Blood - Peripheral Venous Blood Culture - Final NO GROWTH AFTER [address] abdomen/pelvis with contrast (01/17/2018) - Multiple surgical metallic clips again limiting evaluation of the right hemipelvis soft tissue due to beam hardening artifacts. Interval slight increase in size of previously described collection in the right hemipelvis with thick, irregular and enhancing wall. It is at the expected anatomical location of a resected pelvic kidney as per history. No gross free air or free fluid in the abdomen or pelvis. Multiple cystic densities in the pancreas for which correlation with MRI is needed. Limited visualization of the gallbladder due to motion/breathing artifact with suggestion of a sludge layering posteriorly again seen. Duplex US of RUE - No evidence of deep venous thrombosis. CT abdomen/pelvis with contrast (01/15/2018) - Small to moderate size hiatus hernia. Atelectatic changes with nodular opacities in the left lung base likely representing infiltrates for which a follow-up CT scan of the chest in one to 2 weeks is recommended. Moderate size hiatus hernia. Slightly overdistended gallbladder with suggestion of a sludge layering posteriorly. Dilated common bile duct measuring 1.3 cm multiple cystic densities in the pancreas with correlation with MRI. Bilateral atrophic kidneys. Multiple surgical metallic clips in the right hemipelvis obscuring the soft tissue details. However, there is a focal low-attenuation density in the right hemipelvis measuring 4.5 cm likely representing a collection/abscess at the site of prior right renal transplant that was resected according to the submitted clinical history. Extensive diverticulosis coli mainly in the sigmoid colon without evidence of acute diverticulitis. CXR - [id number] cardiomegaly without evidence of acute lung disease. ASSESSMENT/PLAN: Patient is a 77 year old female, previously admitted at [facility] for 144 days (s/p failed renal transplant, s/p removal), discharged AMA, as per son, brought at the ED for lethargy. #Abdominal wound: s/p IR-guided drainage of serosanguinous fluid -Fluid sent for cultures - +ESBL, +non-lactose fermenting gram negative bacilli -Repeat wound cultures -+E.coli, +Proteus -ID (Dr. Shanks) consulted. Recommendations appreciated. -Ertapenem completed . -Continue PO Vancomycin for hx of cdiff. -Vancomycin 750mg PO day 12/04. Then slow taper. -Probiotic therapy. -Contact isolation. -Proper wound care. #ESRD: failed renal transplant, s/p removal -Hemodialysis (MWF) -Nephrology (Dr. Winters) consulted. Recommendations appreciated. - For HD tomorrow. - epogen for anemia -Vascular surgery (Dr. Neri) consulted. Recommendations appreciated. - Permacath insertion done. #GI bleeding: no active bleeding overnight -s/p EGD/Colonoscopy: Hiatal hernia, Gastritis, Diverticulosis, Hemorrhoids, No active bleeding -Consulted with Dr. Shell: -CTA had OTILIO stenosis and sigmoid bleeding. -pt is a poor candidate for IR-guided embolectomy -GI (Dr. Torres) consulted. Recommendations appreciated. -Cardiology (Dr. Holden) consulted. Recommendations appreciated. -Prolonged QTc: More likely secondary to prominent U-waves than an actual QT prolongation -Would continue Beta Blockers if tolerated -Holding AC for GI bleed #Hypoglycemia: BGM at 80s-120s -PAtient reported to have good appetite -BGM q6h #Depression vs Anxiety -Psychologist consulted. Recommendations appreciated. #Altered mental status: ?at baseline from when she came in at the hospital -likely acute metabolic toxic encephalopathy from renal failure and infection. -Speech and swallow evaluation. Recommendations appreciated: -chopped diet. -Maintain head of bed elevated with chin to neutral or flexed during mealtime and for at least an hour after meals. -Feed slowly, 1/2 teaspoon at a time. -Watch for swallow reflex before next bite/sip is given. -Inform Nursing if patient coughs, clears throat or sounds wet and gurgly during or after meals. #Hx of RLE DVT -Duplex US of RUE - No evidence of deep venous thrombosis. -SCDs applied -Eliquis 2.5 mg BID put on hold in setting of GI bleed. -Patient not a good candidate to be on AC #Atrial fibrillation -Eliquis 2.5 mg BID discontinued -Metoprolol (Lopressor) 25mg BID. #Anemia -likely 2/2 iron deficiency and ESRD -Epogen given. #FEN -D5W at 30ml/hr for hypoglycemia -Electrolytes wnl -Full liquid diet. #Prophylaxis -Hold Eliquis 2.5 mg BID due to GI bleed. -SCDs to both legs #Disposition -Declined for transfer by multiple tertiary care centers. -For discharge tomorrow pending outpatient HD arrangement. -Keep patient on wrist restraints for pulling out equipment (IV lines/permacath) Patient will need the following at home: 1.Semi-electric hospital bed with a gel overlay mattress -Patient has limited mobility and cognitive functioning due to her diagnosis of ESRD and metabolic toxic encephalopathy. Patient will require frequent body position changes which she cannot complete independently and are not feasible with a regular bed to alleviate pain, prevent aspiration, and prevent further skin breakdown. 2. Lightweight wheelchair -Patient will need a lightweight wheelchair in order to complete ADLs within the home. Patient cannot self-propel in a standard wheelchair due to the metabolic encephalopathy and ESRD. Visit type - Emergency Visit Emergency Visit: Yes ED Registration Date: 01/16/18 Care time: The patient presented to the Emergency Department on the above date and was hospitalized for further evaluation of their emergent condition. - New Patient This patient is new to me today: Yes Date on this admission: 02/10/18 - Critical Care Critical Care patient: No
--- NOTE | 2018-02-10 12:30 | PN ---
Teaching Attending Note Name of Resident: Marisela Simmons ATTENDING PHYSICIAN STATEMENT I saw and evaluated the patient. I reviewed the resident's note and discussed the case with the resident. I agree with the resident's findings and plan as documented. SUBJECTIVE:asymptomatic. offered no complaints. denies Cp, SOB, fever, chills, N /V/C/D OBJECTIVE: Last Vital Signs Temp Pulse Resp BP Pulse Ox 97.9 F 86 18 148/78 99 02/10/18 09:48 02/10/18 09:48 02/10/18 09:48 02/10/18 09:48 02/10/18 07:55 General NAD abdomen soft NT/ND ASSESSMENT AND PLAN: 77 yo F with reportedly prolonged stay at [facility] for PNA, cdiff (requiring fecal transplant), 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 1. Abdominal wound dehiscence with fluid collection s/ BIJU drain placement 01/18. +ESBL ecoli in wound. completed abx course. off abx. ID on board 2. Acute GI bleed- likely diverticular. s/p EGD/colonoscopy. with 4 units PRBC transfused here. no active signs of bleeding. no indication for transfusion at this time. will monitor while here. now off eliquis 3. Failed transplant kidney in 09/2017, s/p removal/off immunosuppressants, on HD. s/p permacath placement 02/08. tolerated HD. awaiting for HD outpatient to be set up. 4. R calf pain-appears to be more chronic in nature. pt is tender all over both legs and now stating she has had for a long time. doppler negative for DVT. 5. Acute metabolic toxic encephalopathy- likely due to renal failure and infection in setting of gradual decline from recent prolonged hospital stay. resolved. alert and responsive 6. 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 on vanco po, cont QID day 12/04 then will need taper. contact precautions. cont pro-biotic 7. ESBL Ecoli UTI- completed abx course 8. h/o RLE DVT, 9. h/o AFib with wide complex tachycardia- on metoprolol. now off NOAC. will need to hold due to risk of bleeding outweighs clinical benefit. family is aware 10. Prolonged QTc- Qtc 496. avoid QT prolonging medication 11. DVT ppx- SCD. hold pharmacologic anticoagulation 12. pt is medically optimized for discharge at this time. However unable to secure HD at outpatient center. will remain hospitalized until can be arranged.
--- NOTE | 2018-02-10 15:02 | PN ---
Progress Note (short form) - Note Progress Note: covering dr belcher Problems 1. ESRD 2. failed kidney transplant 3. hx DM 4. Hx HTN 5. altered mental status 6. post op infection 7. c.diff 8. a-fib 9. failure to thrive 10.malnutrition 11. anemia 12. GI bleed Current Medications Acetaminophen (Tylenol -) 650 mg PO Q6H PRN PRN Reason: Fever Last Admin: 02/08/18 21:26 Dose: 650 mg Artificial Tears (Artificial Tears) 1 drop OU DAILY PRN PRN Reason: DRY EYES Sodium Chloride (Normal Saline -) 250 mls @ 3,000 mls/hr IV PRN PRN PRN Reason: Hypotension during Dialysis Lactobacillus Acidophilus (Bacid -) 1 tab PO DAILY [facility] Last Admin: 02/10/18 09:41 Dose: 1 tab Lidocaine (Lidoderm Patch -) 1 patch TP DAILY [facility] Last Admin: 02/10/18 09:40 Dose: 1 patch Metoprolol Tartrate (Lopressor -) 25 mg PO BID [facility] Last Admin: 02/10/18 09:41 Dose: 25 mg Miscellaneous (Lidoderm Patch Removal) 1 each MC DAILY@2200 [facility] Last Admin: 02/09/18 22:17 Dose: 1 each Vancomycin HCl (Vancomycin Oral Solution) 125 mg PO Q6HPO [facility] Last Admin: 02/10/18 12:40 Dose: 125 mg Last Vital Signs Temp Pulse Resp BP Pulse Ox 97.9 F 86 18 148/78 99 02/10/18 09:48 02/10/18 09:48 02/10/18 09:48 02/10/18 09:48 02/10/18 07:55 lungs clear heart reg abd soft ext no edema labs reviewed CBC, BMP 02/09/18 06:30 02/08/18 13:40 Plan - she had a permacath placed - pending placement in outpt HD unit - will need fistula repair/revision - epogen for anemia - abx per primary team
[2018-02-10] MEDS ORDERED: amLODIPine BESYLATE 5 MG TABLET (FP) PO ONE (17:30)
[2018-02-10] MEDS: LIDOCAINE PATCH REMOVAL MC SCH (22:26)
[2018-02-11] MEDS: VANCOMYCIN 250 MG/5 ML ORAL SOLUTION PO SCH ×3 (05:22→17:17)
--- NOTE | 2018-02-11 11:00 | PN ---
Teaching Attending Note Name of Resident: Amrik Carreon ATTENDING PHYSICIAN STATEMENT I saw and evaluated the patient. I reviewed the resident's note and discussed the case with the resident. I agree with the resident's findings and plan as documented. SUBJECTIVE:asymptomatic. 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 1. Abdominal wound dehiscence with fluid collection s/ BIJU drain placement 01/18. +ESBL ecoli in wound. completed abx course. off abx. ID on board 2. Acute GI bleed- likely diverticular. s/p EGD/colonoscopy. with 4 units PRBC transfused here. no active signs of bleeding. no indication for transfusion at this time. will monitor while here. now off eliquis 3. Failed transplant kidney in 09/2017, s/p removal/off immunosuppressants, on HD. s/p permacath placement 02/08. tolerated HD. awaiting for HD outpatient to be set up. 4. HTN- will start standing norvasc to optimize BP control 5. Acute metabolic toxic encephalopathy- likely due to renal failure and infection in setting of gradual decline from recent prolonged hospital stay. resolved. alert and responsive 6. 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 on vanco po, cont QID day 01/04 then will need taper. contact precautions. cont pro-biotic 7. ESBL Ecoli UTI- completed abx course 8. h/o RLE DVT, 9. h/o AFib with wide complex tachycardia- on metoprolol. now off NOAC. will need to hold due to risk of bleeding outweighs clinical benefit. family is aware 10. Prolonged QTc- Qtc 496. avoid QT prolonging medication 11. DVT ppx- SCD. hold pharmacologic anticoagulation 12. pt is medically optimized for discharge at this time. However unable to secure HD at outpatient center. will remain hospitalized until can be arranged.
[2018-02-11 11:38] LABS: HEMOGLOBIN 8.1 GM/dL (10.7-15.3); MCHC 32.5 g/dl (32.0-36.0); MEAN CELL VOLUME 95.5 fl (80-96); MEAN PLT VOLUME 8.6 fl (7.5-11.1); PLATELET COUNT 168 K/MM3 (134-434); RBC 2.62 M/mm3 (3.60-5.2); RDW 16.5 % (11.6-15.6); WHITE BLOOD COUNT 4.9 K/mm3 (4.0-10.0)
[2018-02-11 12:09] LABS: ANION GAP 10 MMOL/L (8-16); BLOOD UREA NITROGEN 17 mg/dL (7-18); CALCIUM 7.5 mg/dL (8.5-10.1); CHLORIDE 104 mmol/L (98-107); CO2 28 mmol/L (21-32); CREATININE 3.6 mg/dL (0.55-1.3); GLUCOSE,RANDOM 79 mg/dL (74-106); POTASSIUM 4.3 mmol/L (3.5-5.1); SODIUM 142 mmol/L (136-145)
[2018-02-11] MEDS ORDERED: SODIUM CHLORIDE 250 ML IV PRN (12:12)
[2018-02-11] MEDS ORDERED: EPOETIN ALFA 10,000 UNIT/1 ML VIAL IVPUSH ONE (12:15)
[2018-02-11] MEDS ORDERED: PT OWN MED DRAWER 7, Y5N ONE (14:47)
[2018-02-11] MEDS: ACETAMINOPHEN 325 MG TABLET (FP) PO PRN (14:58)
[2018-02-11] MEDS: LACTOBACILLUS ACIDOPHILUS 1 TABLET PO SCH (14:59)
[2018-02-11] MEDS: LIDOCAINE 5% TOPICAL PATCH TP SCH (14:59)
[2018-02-11] MEDS: METOPROLOL TARTRATE 25 MG TABLET (FP) PO SCH ×2 (15:18→22:00)
--- NOTE | 2018-02-11 15:34 | PN ---
Progress Note, Physician History of Present Illness: Pt seen and examined at bedside. She is awake and appears comfortable. - Current Medication List Current Medications: Active Medications Acetaminophen (Tylenol -) 650 mg PO Q6H PRN PRN Reason: Fever Last Admin: 02/11/18 14:58 Dose: 650 mg Artificial Tears (Artificial Tears) 1 drop OU DAILY PRN PRN Reason: DRY EYES Sodium Chloride (Normal Saline -) 250 mls @ 3,000 mls/hr IV PRN PRN PRN Reason: Hypotension during Dialysis Lactobacillus Acidophilus (Bacid -) 1 tab PO DAILY [facility] Last Admin: 02/11/18 14:59 Dose: 1 tab Lidocaine (Lidoderm Patch -) 1 patch TP DAILY [facility] Last Admin: 02/11/18 14:59 Dose: 1 patch Metoprolol Tartrate (Lopressor -) 25 mg PO BID [facility] Last Admin: 02/11/18 15:18 Dose: Not Given Miscellaneous (Lidoderm Patch Removal) 1 each MC DAILY@2200 [facility] Last Admin: 02/10/18 22:26 Dose: 1 each Vancomycin HCl (Vancomycin Oral Solution) 125 mg PO Q6HPO [facility] Last Admin: 02/11/18 14:59 Dose: 125 mg - Objective Vital Signs: Vital Signs Temperature 97.3 F L 02/11/18 13:35 Pulse Rate 68 02/11/18 13:35 Respiratory Rate 18 02/11/18 13:35 Blood Pressure 140/78 02/11/18 13:35 O2 Sat by Pulse Oximetry (%) 94 L 02/10/18 21:00 Constitutional: Yes: Calm, Cachectic Eyes: Yes: Conjunctiva Clear HENT: Yes: Atraumatic Cardiovascular: Yes: S1, S2 Respiratory: Yes: CTA Bilaterally Gastrointestinal: Yes: Soft Genitourinary: Yes: Incontinence Musculoskeletal: Yes: Muscle Weakness Edema: No Neurological: Yes: Oriented Psychiatric: Yes: Oriented Labs: CBC, BMP 02/11/18 10:30 02/11/18 10:30 INR, PTT INR 1.50 (0.83-1.09) H 01/31/18 06:00 Problem List - Problems (1) ESRD (end stage renal disease) on dialysis Code(s): N18.6 - END STAGE RENAL DISEASE; Z99.2 - DEPENDENCE ON RENAL DIALYSIS Assessment/Plan Current Medications Generic Name Dose Route Start Last Admin Trade Name Freq PRN Reason Stop Dose Admin Acetaminophen 650 mg 02/08/18 12:12 02/11/18 14:58 Tylenol - PO 650 mg Q6H PRN Administration Fever Artificial Tears 1 drop 02/08/18 12:12 Artificial Tears OU DAILY PRN DRY EYES Sodium Chloride 250 mls @ 3,000 mls/hr 02/11/18 12:12 Normal Saline - IV PRN PRN Hypotension during Dialysis Lactobacillus Acidophilus 1 tab 02/09/18 10:00 02/11/18 14:59 Bacid - PO 1 tab DAILY [facility] Administration Lidocaine 1 patch 02/09/18 10:00 02/11/18 14:59 Lidoderm Patch - TP 1 patch DAILY [facility] Administration Metoprolol Tartrate 25 mg 02/08/18 22:00 02/11/18 15:18 Lopressor - PO Not Given BID [facility] Miscellaneous 1 each 02/08/18 22:00 02/10/18 22:26 Lidoderm Patch Removal MC 1 each DAILY@2200 [facility] Administration Vancomycin HCl 125 mg 02/08/18 18:00 02/11/18 14:59 Vancomycin Oral Solution PO 125 mg Q6HPO [facility] Administration Impression 1. ESRD 2. failed kidney transplant 3. hx DM 4. Hx HTN 5. altered mental status 6. post op infection 7. c.diff 8. a-fib 9. failure to thrive 10.malnutrition 11. anemia 12. GI bleed Plan - pt tolerated HD - pending HD placement - will need fistula repair/revision - epogen for anemia - discussed with family Dr Winters
--- NOTE | 2018-02-11 16:52 | PN ---
Physical Exam: SUBJECTIVE: Patient seen and examined at bedside. No acute overnight events. No pain, no SOB. OBJECTIVE: Vital Signs Period Temp Pulse Resp BP Sys/Franco Pulse Ox Last 24 Hr 97.3 F-98.8 F 60-88 18-18 119-187/70-104 94 GENERAL: A&Ox 3 no acute distess LUNGS: CTA HEART: RRR, mild systolic murmur appreciated ABDOMEN: soft, nontender, BS present, wound on abdomen RLQ non-draining, dry EXTREMITIES: mild leg tenderness b/l SKIN: Warm, dry, normal turgor Laboratory Results - last 24 hr 02/10/18 02/10/18 02/11/18 16:30 22:27 05:25 WBC RBC Hgb Hct MCV MCH MCHC RDW Plt Count MPV Sodium Potassium Chloride Carbon Dioxide Anion Gap BUN Creatinine Creat Clearance w eGFR POC Glucometer 158 82 77 Random Glucose Calcium Blood Type Antibody Screen Antibody Identification Antigen Identification 02/11/18 02/11/18 02/11/18 10:30 10:30 10:30 WBC 4.9 RBC 2.62 L Hgb 8.1 L Hct 25.0 L MCV 95.5 MCH 31.0 MCHC 32.5 RDW 16.5 H Plt Count 168 MPV 8.6 Sodium 142 Potassium 4.3 Chloride 104 Carbon Dioxide 28 Anion Gap 10 BUN 17 Creatinine 3.6 H Creat Clearance w eGFR 12.23 POC Glucometer Random Glucose 79 Calcium 7.5 L Blood Type O POSITIVE Antibody Screen Positive H Antibody Identification Anit-c Antigen Identification No Result Required. 02/11/18 11:20 WBC RBC Hgb Hct MCV MCH MCHC RDW Plt Count MPV Sodium Potassium Chloride Carbon Dioxide Anion Gap BUN Creatinine Creat Clearance w eGFR POC Glucometer 139 Random Glucose Calcium Blood Type Antibody Screen Antibody Identification Antigen Identification Active Medications Generic Name Dose Route Start Last Admin Trade Name Freq PRN Reason Stop Dose Admin Acetaminophen 650 mg 02/08/18 12:12 02/11/18 14:58 Tylenol - PO 650 mg Q6H PRN Administration Fever Artificial Tears 1 drop 02/08/18 12:12 Artificial Tears OU DAILY PRN DRY EYES Sodium Chloride 250 mls @ 3,000 mls/hr 02/11/18 12:12 Normal Saline - IV PRN PRN Hypotension during Dialysis Lactobacillus Acidophilus 1 tab 02/09/18 10:00 02/11/18 14:59 Bacid - PO 1 tab DAILY [facility] Administration Lidocaine 1 patch 02/09/18 10:00 02/11/18 14:59 Lidoderm Patch - TP 1 patch DAILY [facility] Administration Metoprolol Tartrate 25 mg 02/08/18 22:00 02/11/18 15:18 Lopressor - PO Not Given BID [facility] Miscellaneous 1 each 02/08/18 22:00 02/10/18 22:26 Lidoderm Patch Removal 1 each DAILY@2200 [facility] Administration Vancomycin HCl 125 mg 02/08/18 18:00 02/11/18 14:59 Vancomycin Oral Solution PO 125 mg Q6HPO [facility] Administration -Fluid sent for cultures - +ESBL, +non-lactose fermenting gram negative bacilli -Repeat wound cultures -+E.coli, +Proteus ASSESSMENT/PLAN: Patient is a 77 year old female, previously admitted at [facility] for 144 days (s/p failed renal transplant, s/p removal), discharged AMA, as per son, brought at the ED for lethargy. #ESRD: failed renal transplant, s/p removal, permacath in place, waiting for chair at HD and equipmnt to be delivered at home -Hemodialysis (MWF) -Nephrology (Dr. Winters) -epogen -Vascular surgery (Dr. Neri) #Abdominal wound: resolved, s/p IR guided drainage -ID (Dr. Shanks) consulted. Recommendations appreciated. -off IV abx -Continue PO Vancomycin for hx of cdiff -Vancomycin [id number] -Contact isolation. 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 -GI (Dr. Torres) consult -Cardiology (Dr. Holden) consult -Holding AC for GI bleed, decided not to restart #Hypoglycemia: resolved -PAtient reported to have good appetite -BGM q6h #Altered mental status: Resolved #Atrial fibrillation -Eliquis 2.5 mg BID discontinued -continue Metoprolol (Lopressor) 25mg BID. #Anemia: stable -Epogen given. #FEN -Electrolytes wnl -renal diet. #Prophylaxis -Hold Eliquis 2.5 mg BID due to GI bleed. -SCDs to both legs #Disposition -For discharge tomorrow pending outpatient HD arrangement. -Keep patient on wrist restraints for pulling out equipment (IV lines/permacath) Patient will need the following at home: 1.Semi-electric hospital bed with a gel overlay mattress -Patient has limited mobility and cognitive functioning due to her diagnosis of ESRD and metabolic toxic encephalopathy. Patient will require frequent body position changes which she cannot complete independently and are not feasible with a regular bed to alleviate pain, prevent aspiration, and prevent further skin breakdown. 2. Lightweight wheelchair -Patient will need a lightweight wheelchair in order to complete ADLs within the home. Patient cannot self-propel in a standard wheelchair due to the metabolic encephalopathy and ESRD. Visit type - Emergency Visit Emergency Visit: Yes ED Registration Date: 01/16/18 Care time: The patient presented to the Emergency Department on the above date and was hospitalized for further evaluation of their emergent condition. - New Patient This patient is new to me today: Yes Date on this admission: 02/11/18 - Critical Care Critical Care patient: No
[2018-02-11] MEDS: LIDOCAINE PATCH REMOVAL MC SCH (22:00)
[2018-02-12] MEDS: VANCOMYCIN 250 MG/5 ML ORAL SOLUTION PO SCH ×5 (00:38→23:00)
[2018-02-12] MEDS ORDERED: PT OWN MED DRAWER 7, Y5N ONE (06:48)
[2018-02-12] MEDS: ACETAMINOPHEN 325 MG TABLET (FP) PO PRN (06:51)
[2018-02-12] MEDS: LIDOCAINE 5% TOPICAL PATCH TP SCH (09:35)
[2018-02-12] MEDS: amLODIPine BESYLATE 5 MG TABLET (FP) PO SCH (09:35)
[2018-02-12] MEDS: LACTOBACILLUS ACIDOPHILUS 1 TABLET PO SCH (09:35)
[2018-02-12] MEDS: METOPROLOL TARTRATE 25 MG TABLET (FP) PO SCH ×2 (09:35→22:12)
--- NOTE | 2018-02-12 10:08 | PN ---
Progress Note (short form) - Note Progress Note: The patient was seen today. She experienced a groupy cough three times during our session. She was awake, alert and communicative for the first time since consulting on her case. The patient was taught a deep breathing and relaxation exercise to reduce her level 9 back pain. When asked the specific location of her pain or its descriptive qualities, she did not provide these particulars. The pain management intervention unfortunately did not change her pain level. This may be due to the possibility that she was unable to follow or understand the instructions even after several explanations. She was asked if she would like a visit from our pastoral care department. She agreed to the pastoral care visit. She expressed that she thought she would soon due to her pain experiences. 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 That helped develop rapport between us. The patient was grateful for the visit and wished me a pleasant day which suggests that she was oriented to person and place. Problem List - Problems (1) Depressed Code(s): F32.9 - MAJOR DEPRESSIVE DISORDER, SINGLE EPISODE, UNSPECIFIED Qualifiers: Major depression recurrence: single episode Active/Remission status: currently active Major depression episode severity: severe Psychotic features: without psychotic features (2) Pain aggravated by changing postions Code(s): R52 - PAIN, UNSPECIFIED
--- NOTE | 2018-02-12 11:14 | PN ---
Teaching Attending Note Name of Resident: Fernando Ricci ATTENDING PHYSICIAN STATEMENT I saw and evaluated the patient. I reviewed the resident's note and discussed the case with the resident. I agree with the resident's findings and plan as documented. SUBJECTIVE:resting comfortable. 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 1. Abdominal wound dehiscence with fluid collection s/ BIJU drain placement 01/18. +ESBL ecoli in wound. completed abx course. off abx. ID on board 2. Acute GI bleed- likely diverticular. s/p EGD/colonoscopy. with 4 units PRBC transfused here. no active signs of bleeding. no indication for transfusion at this time. will monitor while here. now off eliquis 3. Failed transplant kidney in 09/2017, s/p removal/off immunosuppressants, on HD. s/p permacath placement 02/08. tolerated HD. awaiting for HD outpatient to be set up. 4. HTN- monitoring on norvasc. titrate to optimize control 5. Acute metabolic toxic encephalopathy- likely due to renal failure and infection in setting of gradual decline from recent prolonged hospital stay. resolved. alert and responsive 6. 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 on vanco po, cont QID day 02/03 then will need taper. contact precautions. cont pro-biotic 7. ESBL Ecoli UTI- completed abx course 8. h/o RLE DVT, 9. h/o AFib with wide complex tachycardia- on metoprolol. now off NOAC. will need to hold due to risk of bleeding outweighs clinical benefit. family is aware 10. Prolonged QTc- Qtc 496. avoid QT prolonging medication 11. DVT ppx- SCD. hold pharmacologic anticoagulation 12. pt is medically optimized for discharge at this time. However unable to secure HD at outpatient center. will remain hospitalized until can be arranged.
--- NOTE | 2018-02-12 13:12 | PN ---
Progress Note, MEDICAL TECHNOLOGIST CHIEF - Note Progress Note: Selected Entries 02/11/18 02/11/18 02/11/18 06:00 10:25 10:46 Breakfast 75% Lunch Supper Temperature 98.2 F 98.8 F 02/11/18 02/11/18 02/11/18 13:35 16:30 21:08 Breakfast Lunch 100% Supper Temperature 97.3 F L 99.8 F H 98.9 F 02/11/18 02/12/18 02/12/18 23:38 06:03 09:00 Breakfast Lunch Supper 50% Temperature 98.1 F 97.8 F 02/12/18 11:04 Breakfast 75% Lunch Supper Temperature Laboratory Tests 02/11/18 10:30 WBC 4.9
--- NOTE | 2018-02-12 13:34 | PN ---
Progress Note, Physician History of Present Illness: Pt seen and examined at bedside. She is awake and appears comfortable. - Current Medication List Current Medications: Active Medications Acetaminophen (Tylenol -) 650 mg PO Q6H PRN PRN Reason: Fever Last Admin: 02/12/18 06:51 Dose: 650 mg Amlodipine Besylate (Norvasc -) 5 mg PO DAILY [facility] Last Admin: 02/12/18 09:35 Dose: 5 mg Artificial Tears (Artificial Tears) 1 drop OU DAILY PRN PRN Reason: DRY EYES Sodium Chloride (Normal Saline -) 250 mls @ 3,000 mls/hr IV PRN PRN PRN Reason: Hypotension during Dialysis Lactobacillus Acidophilus (Bacid -) 1 tab PO DAILY [facility] Last Admin: 02/12/18 09:35 Dose: 1 tab Lidocaine (Lidoderm Patch -) 1 patch TP DAILY [facility] Last Admin: 02/12/18 09:35 Dose: 1 patch Metoprolol Tartrate (Lopressor -) 25 mg PO BID [facility] Last Admin: 02/12/18 09:35 Dose: 25 mg Miscellaneous (Lidoderm Patch Removal) 1 each MC DAILY@2200 [facility] Last Admin: 02/11/18 22:00 Dose: Not Given Vancomycin HCl (Vancomycin Oral Solution) 125 mg PO Q6HPO [facility] Last Admin: 02/12/18 06:05 Dose: 125 mg - Objective Vital Signs: Vital Signs Temperature 97.8 F 02/12/18 09:00 Pulse Rate 68 02/12/18 09:00 Respiratory Rate 18 02/12/18 09:00 Blood Pressure 184/90 H 02/12/18 09:00 O2 Sat by Pulse Oximetry (%) 96 02/12/18 09:00 Constitutional: Yes: Calm Eyes: Yes: Conjunctiva Clear HENT: Yes: Atraumatic Cardiovascular: Yes: S1, S2 Respiratory: Yes: CTA Bilaterally Gastrointestinal: Yes: Soft Genitourinary: Yes: Incontinence Musculoskeletal: Yes: Muscle Weakness Edema: No Neurological: Yes: Oriented Labs: CBC, BMP 02/11/18 10:30 02/11/18 10:30 INR, PTT INR 1.50 (0.83-1.09) H 01/31/18 06:00 Problem List - Problems (1) ESRD (end stage renal disease) on dialysis Code(s): N18.6 - END STAGE RENAL DISEASE; Z99.2 - DEPENDENCE ON RENAL DIALYSIS Assessment/Plan Current Medications Generic Name Dose Route Start Last Admin Trade Name Freq PRN Reason Stop Dose Admin Acetaminophen 650 mg 02/08/18 12:12 02/12/18 06:51 Tylenol - PO 650 mg Q6H PRN Administration Fever Amlodipine Besylate 5 mg 02/12/18 10:00 02/12/18 09:35 Norvasc - PO 5 mg DAILY [facility] Administration Artificial Tears 1 drop 02/08/18 12:12 Artificial Tears OU DAILY PRN DRY EYES Sodium Chloride 250 mls @ 3,000 mls/hr 02/11/18 12:12 Normal Saline - IV PRN PRN Hypotension during Dialysis Lactobacillus Acidophilus 1 tab 02/09/18 10:00 02/12/18 09:35 Bacid - PO 1 tab DAILY [facility] Administration Lidocaine 1 patch 02/09/18 10:00 02/12/18 09:35 Lidoderm Patch - TP 1 patch DAILY [facility] Administration Metoprolol Tartrate 25 mg 02/08/18 22:00 02/12/18 09:35 Lopressor - PO 25 mg BID [facility] Administration Miscellaneous 1 each 02/08/18 22:00 02/11/18 22:00 Lidoderm Patch Removal MC Not Given DAILY@2200 [facility] Vancomycin HCl 125 mg 02/08/18 18:00 02/12/18 06:05 Vancomycin Oral Solution PO 125 mg Q6HPO [facility] Administration Impression 1. ESRD 2. failed kidney transplant 3. hx DM 4. Hx HTN 5. altered mental status 6. post op infection 7. c.diff 8. a-fib 9. failure to thrive 10.malnutrition 11. anemia 12. GI bleed Plan - HD in am - pending placement in HD unit - will need fistula repair/revision - epogen for anemia Dr Winters
--- NOTE | 2018-02-12 17:49 | PN ---
Physical Exam: SUBJECTIVE: Patient seen and examined a bedside. Pt c/o generalized pain. No acute events overnight. Denies chest pain or shortness of breath. OBJECTIVE: Vital Signs Period Temp Pulse Resp BP Sys/Franco Pulse Ox Last 24 Hr 97.8 F-98.9 F 67-73 16-18 166-184/82-90 96-96 GENERAL: A&Ox 3 no acute distess LUNGS: CTA B/L HEART: RRR, No MRG ABDOMEN: Soft, nontender, BS +, nondistended EXTREMITIES: Muscle atrophy b/l lower extremities. SKIN: Warm, dry, no rashes or lesions appreciated. Laboratory Results - last 24 hr 02/11/18 02/12/18 02/12/18 20:44 05:38 11:22 POC Glucometer 108 73 79 02/12/18 17:00 POC Glucometer 157 Active Medications Generic Name Dose Route Start Last Admin Trade Name Freq PRN Reason Stop Dose Admin Acetaminophen 650 mg 02/08/18 12:12 02/12/18 06:51 Tylenol - PO 650 mg Q6H PRN Administration Fever Amlodipine Besylate 5 mg 02/12/18 10:00 02/12/18 09:35 Norvasc - PO 5 mg DAILY [facility] Administration Artificial Tears 1 drop 02/08/18 12:12 Artificial Tears OU DAILY PRN DRY EYES Epoetin Abe 8,000 unit 02/13/18 13:34 Epogen - IVPUSH 02/13/18 13:35 ONCE ONE Sodium Chloride 250 mls @ 3,000 mls/hr 02/11/18 12:12 Normal Saline - IV PRN PRN Hypotension during Dialysis Sodium Chloride 250 mls @ 3,000 mls/hr 02/12/18 13:34 Normal Saline - IV 02/13/18 13:34 PRN PRN Hypotension during Dialysis Lactobacillus Acidophilus 1 tab 02/09/18 10:00 02/12/18 09:35 Bacid - PO 1 tab DAILY [facility] Administration Lidocaine 1 patch 02/09/18 10:00 02/12/18 09:35 Lidoderm Patch - TP 1 patch DAILY [facility] Administration Metoprolol Tartrate 25 mg 02/08/18 22:00 02/12/18 09:35 Lopressor - PO 25 mg BID [facility] Administration Miscellaneous 1 each 02/08/18 22:00 02/11/18 22:00 Lidoderm Patch Removal MC Not Given DAILY@2200 [facility] Vancomycin HCl 125 mg 02/08/18 18:00 02/12/18 13:40 Vancomycin Oral Solution PO 125 mg Q6HPO [facility] Administration ASSESSMENT/PLAN: Patient is a 77 year old female, previously admitted at [facility] for 144 days (s/p failed renal transplant, s/p removal), discharged AMA, as per son, brought at the ED for lethargy. #ESRD: failed renal transplant, s/p removal, permacath in place, waiting for chair at HD and equipment to be delivered at home -Hemodialysis (MWF) -Nephrology (Dr. Winters)--> HD in am. Still awaiting HD chair placement. -epogen -Vascular surgery (Dr. Neri) -DME delivered today to pt's home per son Aries. #Abdominal wound: resolved, s/p IR guided drainage -ID (Dr. Shanks) consulted. Recommendations appreciated. -off IV abx -Continue PO Vancomycin for hx of cdiff -Vancomycin [id number]. Day 10 of 14. Will taper as follows: 1.Vancomycin 125mg twice a day for 7 days, THEN... 2. Vancomycin 125mg once a day for 7 days, THEN... 3. Vancomycin 125mg every 2-3 days for 1 month. -Contact isolation. #Hypertension BP 183/90. Amlodipine 5 mg PO Daily started. 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 -GI (Dr. Torres) consult -Cardiology (Dr. Holden) consult -Holding for GI bleed, decided not to restart #Hypoglycemia: resolved -Patient reported to have good appetite -BGM q6h #Altered mental status: Resolved #Atrial fibrillation -Eliquis 2.5 mg BID discontinued -continue Metoprolol (Lopressor) 25mg BID. #Anemia: stable. 8.05/17 (02/11) -Epogen #FEN -Electrolytes wnl -renal diet. #Prophylaxis -SCDs to both legs #Disposition -For discharge contingent upon outpatient HD arrangement. Visit type - Emergency Visit Emergency Visit: No - New Patient This patient is new to me today: Yes Date on this admission: 02/12/18 - Critical Care Critical Care patient: No - Discharge Referral Referred to [facility] Med P.C.: No
[2018-02-12] MEDS: LIDOCAINE PATCH REMOVAL MC SCH (22:12)
[2018-02-13] MEDS: VANCOMYCIN 250 MG/5 ML ORAL SOLUTION PO SCH ×4 (05:13→23:42)
[2018-02-13] MEDS ORDERED: SODIUM CHLORIDE 250 ML IV PRN (07:06)
[2018-02-13 08:59] LABS: HEMATOCRIT 25.7 % (32.4-45.2); HEMOGLOBIN 8.5 GM/dL (10.7-15.3); MCH 31.6 pg (25.7-33.7); MCHC 33.2 g/dl (32.0-36.0); MEAN CELL VOLUME 95.3 fl (80-96); MEAN PLT VOLUME 8.9 fl (7.5-11.1); PLATELET COUNT 156 K/MM3 (134-434); RDW 16.4 % (11.6-15.6)
[2018-02-13] MEDS ORDERED: EPOETIN ALFA 10,000 UNIT/1 ML VIAL IVPUSH ONE (09:30)
[2018-02-13 09:39] LABS: ANION GAP 9 MMOL/L (8-16); BLOOD UREA NITROGEN 14 mg/dL (7-18); CALCIUM 7.8 mg/dL (8.5-10.1); CHLORIDE 104 mmol/L (98-107); CO2 31 mmol/L (21-32); CREATININE 2.9 mg/dL (0.55-1.3); GLUCOSE,RANDOM 55 mg/dL (74-106); POTASSIUM 3.7 mmol/L (3.5-5.1); SODIUM 143 mmol/L (136-145)
--- NOTE | 2018-02-13 11:13 | PN ---
Progress Note, Physician History of Present Illness: Pt seen and examined at bedside. She is awake and denies shortness of breath. She is tolerating HD. - Current Medication List Current Medications: Active Medications Acetaminophen (Tylenol -) 650 mg PO Q6H PRN PRN Reason: Fever Last Admin: 02/12/18 06:51 Dose: 650 mg Amlodipine Besylate (Norvasc -) 5 mg PO DAILY [facility] Last Admin: 02/12/18 09:35 Dose: 5 mg Artificial Tears (Artificial Tears) 1 drop OU DAILY PRN PRN Reason: DRY EYES Sodium Chloride (Normal Saline -) 250 mls @ 3,000 mls/hr IV PRN PRN PRN Reason: Hypotension during Dialysis Sodium Chloride (Normal Saline -) 250 mls @ 3,000 mls/hr IV PRN PRN PRN Reason: Hypotension during Dialysis Stop: 02/14/18 07:05 Lactobacillus Acidophilus (Bacid -) 1 tab PO DAILY [facility] Last Admin: 02/12/18 09:35 Dose: 1 tab Lidocaine (Lidoderm Patch -) 1 patch TP DAILY [facility] Last Admin: 02/12/18 09:35 Dose: 1 patch Metoprolol Tartrate (Lopressor -) 25 mg PO BID [facility] Last Admin: 02/12/18 22:12 Dose: 25 mg Miscellaneous (Lidoderm Patch Removal) 1 each MC DAILY@2200 [facility] Last Admin: 02/12/18 22:12 Dose: 1 each Vancomycin HCl (Vancomycin Oral Solution) 125 mg PO Q6HPO [facility] Last Admin: 02/13/18 05:13 Dose: 125 mg - Objective Vital Signs: Vital Signs Temperature 97.8 F 02/13/18 10:40 Pulse Rate 67 02/13/18 10:40 Respiratory Rate 18 02/13/18 10:40 Blood Pressure 140/96 02/13/18 10:40 O2 Sat by Pulse Oximetry (%) 94 L 02/12/18 21:00 Constitutional: Yes: Calm, Cachectic Eyes: Yes: Conjunctiva Clear HENT: Yes: Atraumatic Cardiovascular: Yes: S1, S2 Respiratory: Yes: Rhonchi Gastrointestinal: Yes: Normal Bowel Sounds, Soft Genitourinary: Yes: Incontinence Musculoskeletal: Yes: Muscle Weakness Edema: No Neurological: Yes: Oriented Labs: CBC, BMP 02/13/18 07:00 02/13/18 07:00 INR, PTT INR 1.50 (0.83-1.09) H 01/31/18 06:00 Problem List - Problems (1) ESRD (end stage renal disease) on dialysis Code(s): N18.6 - END STAGE RENAL DISEASE; Z99.2 - DEPENDENCE ON RENAL DIALYSIS Assessment/Plan Current Medications Generic Name Dose Route Start Last Admin Trade Name Freq PRN Reason Stop Dose Admin Acetaminophen 650 mg 02/08/18 12:12 02/12/18 06:51 Tylenol - PO 650 mg Q6H PRN Administration Fever Amlodipine Besylate 5 mg 02/12/18 10:00 02/12/18 09:35 Norvasc - PO 5 mg DAILY [facility] Administration Artificial Tears 1 drop 02/08/18 12:12 Artificial Tears OU DAILY PRN DRY EYES Sodium Chloride 250 mls @ 3,000 mls/hr 02/11/18 12:12 Normal Saline - IV PRN PRN Hypotension during Dialysis Sodium Chloride 250 mls @ 3,000 mls/hr 02/13/18 07:06 Normal Saline - IV 02/14/18 07:05 PRN PRN Hypotension during Dialysis Lactobacillus Acidophilus 1 tab 02/09/18 10:00 02/12/18 09:35 Bacid - PO 1 tab DAILY [facility] Administration Lidocaine 1 patch 02/09/18 10:00 02/12/18 09:35 Lidoderm Patch - TP 1 patch DAILY [facility] Administration Metoprolol Tartrate 25 mg 02/08/18 22:00 02/12/18 22:12 Lopressor - PO 25 mg BID [facility] Administration Miscellaneous 1 each 02/08/18 22:00 02/12/18 22:12 Lidoderm Patch Removal MC 1 each DAILY@2200 [facility] Administration Vancomycin HCl 125 mg 02/08/18 18:00 02/13/18 05:13 Vancomycin Oral Solution PO 125 mg Q6HPO [facility] Administration Impression 1. ESRD 2. failed kidney transplant 3. hx DM 4. Hx HTN 5. altered mental status 6. post op infection 7. c.diff 8. a-fib 9. failure to thrive 10.malnutrition 11. anemia 12. GI bleed Plan - pt tolerating HD - pending placement in HD - will need fistula repair/revision - will need vascular follow up - cont pt - epogen for anemia Dr Winters
--- NOTE | 2018-02-13 13:04 | PN ---
Teaching Attending Note Name of Resident: Fernando Ricci ATTENDING PHYSICIAN STATEMENT I saw and evaluated the patient. I reviewed the resident's note and discussed the case with the resident. I agree with the resident's findings and plan as documented. SUBJECTIVE:asymptomatic. states she is sleepy during HD. denies CP, SOB, fever, chills, N/V/C?D OBJECTIVE: Last Vital Signs Temp Pulse Resp BP Pulse Ox 97.8 F 67 18 140/96 94 L 02/13/18 10:40 02/13/18 10:40 02/13/18 10:40 02/13/18 10:40 02/12/18 21:00 General NAD Lungs CTA anteriorly abdomen soft NT/ND ASSESSMENT AND PLAN: 77 yo F with reportedly prolonged stay at [facility] for PNA, cdiff (requiring fecal transplant), 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 1. Abdominal wound dehiscence with fluid collection s/ BIJU drain placement 01/18. +ESBL ecoli in wound. completed abx course. off abx. ID on board 2. Acute GI bleed- likely diverticular. s/p EGD/colonoscopy. with 4 units PRBC transfused here. no active signs of bleeding. no indication for transfusion at this time. will monitor while here. now off eliquis 3. Failed transplant kidney in 09/2017, s/p removal/off immunosuppressants, on HD. s/p permacath placement 02/08. tolerated HD. awaiting for HD outpatient to be set up. Facility considering at this time however need to confirm some more information prior to accepting 4. HTN- monitoring on norvasc. titrate to optimize control 5. Acute metabolic toxic encephalopathy- likely due to renal failure and infection in setting of gradual decline from recent prolonged hospital stay. resolved. alert and responsive 6. 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 on vanco po, cont QID day 03/06 then will need taper. contact precautions. cont pro-biotic 7. ESBL Ecoli UTI- completed abx course 8. h/o RLE DVT, 9. h/o AFib with wide complex tachycardia- on metoprolol. now off NOAC. will need to hold due to risk of bleeding outweighs clinical benefit. family is aware 10. Prolonged QTc- Qtc 496. avoid QT prolonging medication 11. DVT ppx- SCD. hold pharmacologic anticoagulation 12. pt is medically optimized for discharge at this time. However unable to secure HD at outpatient center. will remain hospitalized until can be arranged.
[2018-02-13] MEDS: amLODIPine BESYLATE 5 MG TABLET (FP) PO SCH (13:41)
[2018-02-13] MEDS: LACTOBACILLUS ACIDOPHILUS 1 TABLET PO SCH (13:41)
[2018-02-13] MEDS: ACETAMINOPHEN 325 MG TABLET (FP) PO PRN (13:42)
[2018-02-13] MEDS: METOPROLOL TARTRATE 25 MG TABLET (FP) PO SCH ×2 (13:45→22:27)
[2018-02-13] MEDS: LIDOCAINE 5% TOPICAL PATCH TP SCH (13:54)
--- NOTE | 2018-02-13 21:51 | PN ---
Physical Exam: SUBJECTIVE: Patient seen and examined at bedside. No acute events overnight. B/ l wrist restraints in place. Denies chest pain, shortness of breath, fever, or chills. Asking for son Aries. OBJECTIVE: Vital Signs Period Temp Pulse Resp BP Sys/Franco Pulse Ox Last 24 Hr 97.6 F-98.2 F 61-87 18-20 126-182/73-96 95-96 GENERAL: NAD, AAOx3. HEAD:NC/AT EYES: PERRLA, EOMI ENT: MMM NECK: Trachea midline, full range of motion, supple. LUNGS: CTA B/L HEART: RRR No MRG S1S2 ABDOMEN: Open abdominal wound, small amount of purulent drainage. EXTREMITIES: 2+ pulses, warm, well-perfused, no edema. NEUROLOGICAL: CN 2-12 intact PSYCH: Normal mood, normal affect. SKIN: Ulcer Right heal. Laboratory Results - last 24 hr 02/12/18 02/13/18 02/13/18 22:16 05:16 07:00 WBC RBC Hgb Hct MCV MCH MCHC RDW Plt Count MPV Sodium 143 Potassium 3.7 Chloride 104 Carbon Dioxide 31 Anion Gap 9 BUN 14 Creatinine 2.9 H Creat Clearance w eGFR 15.69 POC Glucometer 87 85 Random Glucose 55 L Calcium 7.8 L 02/13/18 02/13/18 02/13/18 07:00 12:05 17:11 WBC 6.0 RBC 2.70 L Hgb 8.5 L Hct 25.7 L MCV 95.3 MCH 31.6 MCHC 33.2 RDW 16.4 H Plt Count 156 MPV 8.9 Sodium Potassium Chloride Carbon Dioxide Anion Gap BUN Creatinine Creat Clearance w eGFR POC Glucometer 77 86 Random Glucose Calcium Active Medications Generic Name Dose Route Start Last Admin Trade Name Freq PRN Reason Stop Dose Admin Acetaminophen 650 mg 02/08/18 12:12 02/13/18 13:42 Tylenol - PO 650 mg Q6H PRN Administration Fever Amlodipine Besylate 5 mg 02/12/18 10:00 02/13/18 13:41 Norvasc - PO 5 mg DAILY HARPAL Administration Artificial Tears 1 drop 02/08/18 12:12 Artificial Tears OU DAILY PRN DRY EYES Sodium Chloride 250 mls @ 3,000 mls/hr 02/11/18 12:12 Normal Saline - IV PRN PRN Hypotension during Dialysis Sodium Chloride 250 mls @ 3,000 mls/hr 02/13/18 07:06 Normal Saline - IV 02/14/18 07:05 PRN PRN Hypotension during Dialysis Lactobacillus Acidophilus 1 tab 02/09/18 10:00 02/13/18 13:41 Bacid - PO 1 tab DAILY HARPAL Administration Lidocaine 1 patch 02/09/18 10:00 02/13/18 13:54 Lidoderm Patch - TP 1 patch DAILY HARPAL Administration Metoprolol Tartrate 25 mg 02/08/18 22:00 02/13/18 13:45 Lopressor - PO 25 mg BID HARPAL Administration Miscellaneous 1 each 02/08/18 22:00 02/12/18 22:12 Lidoderm Patch Removal MC 1 each DAILY@2200 HARPAL Administration Vancomycin HCl 125 mg 02/08/18 18:00 02/13/18 17:25 Vancomycin Oral Solution PO 125 mg Q6HPO HARPAL Administration ASSESSMENT/PLAN: Patient is a 77 year old female, previously admitted at [facility] for 144 days (s/p failed renal transplant, s/p removal), discharged AMA, as per son, brought at the ED for lethargy. #ESRD: failed renal transplant, s/p removal, permacath in place, waiting for chair at HD and equipment to be delivered at home -Hemodialysis (MWF) -Nephrology (Dr. Winters)--> HD placement contingent upon need to confirm some more information prior to accepting -epogen -Vascular surgery (Dr. Neri) -DME delivered to pt's home per son Aries. #Abdominal wound: resolved, s/p IR guided drainage -off IV abx -Continue PO Vancomycin for hx of cdiff -Vancomycin [id number]. Day 10 of 14. Will taper as follows: 1.Vancomycin 125mg twice a day for 7 days, THEN... 2. Vancomycin 125mg once a day for 7 days, THEN... 3. Vancomycin 125mg every 2-3 days for 1 month. -Contact isolation. #Hypertension Amlodipine 5 mg PO Daily started. 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 -Holding AC for GI bleed, decided not to restart #Atrial fibrillation -Eliquis 2.5 mg BID discontinued -continue Metoprolol (Lopressor) 25mg BID. #Anemia: stable. 8.5/25.7 (02/13) -Epogen #FEN -Electrolytes wnl -renal diet. #Prophylaxis -SCDs to both legs #Disposition -For discharge contingent upon outpatient HD arrangement. Visit type - Emergency Visit Emergency Visit: Yes ED Registration Date: 01/16/18 Care time: The patient presented to the Emergency Department on the above date and was hospitalized for further evaluation of their emergent condition. - New Patient This patient is new to me today: No - Critical Care Critical Care patient: No - Discharge Referral Referred to [facility] Med [facility] No
[2018-02-13] MEDS: LIDOCAINE PATCH REMOVAL MC SCH (22:27)
[2018-02-14] MEDS: VANCOMYCIN 250 MG/5 ML ORAL SOLUTION PO SCH ×4 (05:21→23:12)
[2018-02-14] MEDS: amLODIPine BESYLATE 5 MG TABLET (FP) PO SCH (10:29)
[2018-02-14] MEDS: METOPROLOL TARTRATE 25 MG TABLET (FP) PO SCH ×2 (10:29→21:38)
[2018-02-14] MEDS: LIDOCAINE 5% TOPICAL PATCH TP SCH (10:29)
[2018-02-14] MEDS: LACTOBACILLUS ACIDOPHILUS 1 TABLET PO SCH (10:29)
[2018-02-14 11:41] VITALS: BMI 23.0
--- NOTE | 2018-02-14 12:11 | PN ---
Progress Note, DIRECTOR OF GLOBAL SALES - Note Progress Note: Selected Entries 02/13/18 02/13/18 02/13/18 06:00 07:00 10:40 Breakfast Lunch Supper Temperature 97.6 F 98.0 F 97.8 F 02/13/18 02/13/18 02/13/18 14:06 18:00 22:00 Breakfast Lunch 100% Supper Temperature 97.7 F 98.0 F 97.7 F 02/13/18 02/14/18 02/14/18 22:04 10:00 11:27 Breakfast 50% Lunch Supper 50% Temperature 97.9 F Laboratory Tests 02/11/18 02/13/18 10:30 07:00 WBC 4.9 6.0 Pt on reg diet/thin liquid since 02/08. Pt's son reports congestion, cough, expectorating thick phlegm. Good vocal quality. Swallow reassessed without responsive cough to 3 oz water test. Pt does have a cough before and after po trials. Case reviewed with nursing. Etiology of congestion? Silent aspiration can not be r/o at bedside.Last CXR . WBC/Temp ok.
--- NOTE | 2018-02-14 13:17 | PN ---
Teaching Attending Note Name of Resident: Fernando Ricci ATTENDING PHYSICIAN STATEMENT I saw and evaluated the patient. I reviewed the resident's note and discussed the case with the resident. I agree with the resident's findings and plan as documented. SUBJECTIVE:resting comfortable. OBJECTIVE: Last Vital Signs Temp Pulse Resp BP Pulse Ox 97.9 F 67 18 115/41 L 95 02/14/18 10:00 02/14/18 10:00 02/14/18 10:00 02/14/18 10:02/13/18 20:57 General NAD Lungs CTA anteriorly ASSESSMENT AND PLAN: 77 yo F with reportedly prolonged stay at [facility] for PNA, cdiff (requiring fecal transplant), 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 1. Abdominal wound dehiscence with fluid collection s/ BIJU drain placement 01/18. +ESBL ecoli in wound. completed abx course. off abx. ID on board 2. Acute GI bleed- likely diverticular. s/p EGD/colonoscopy. with 4 units PRBC transfused here. no active signs of bleeding. no indication for transfusion at this time. will monitor while here. now off eliquis 3. Failed transplant kidney in 09/2017, s/p removal/off immunosuppressants, on HD. s/p permacath placement 02/08. tolerated HD. HD outpatient has been established however unable to accomodate until Sunday (02/19) plan is for her to complete HD on Sunday and then can go home and arrive for HD on sunday. 4. HTN- monitoring on norvasc. titrate to optimize control 5. Acute metabolic toxic encephalopathy- likely due to renal failure and infection in setting of gradual decline from recent prolonged hospital stay. resolved. alert and responsive 6. 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 on vanco po, cont QID day 04/05 then will need taper. contact precautions. cont pro-biotic 7. ESBL Ecoli UTI- completed abx course 8. h/o RLE DVT, 9. h/o AFib with wide complex tachycardia- on metoprolol. now off NOAC. will need to hold due to risk of bleeding outweighs clinical benefit. family is aware 10. Prolonged QTc- Qtc 496. avoid QT prolonging medication 11. DVT ppx- SCD. hold pharmacologic anticoagulation 12. pt is medically optimized for discharge at this time. HD outpatient secured and can start on 02/19. will require HD today (02/14) and sunday (02/16) can d /c home on 02/16. DME has been received at the house already
--- NOTE | 2018-02-14 14:39 | PN ---
Progress Note, Physician History of Present Illness: Pt seen and examined at bedside. She appears comfortable. She denies shortness of breath. - Current Medication List Current Medications: Active Medications Acetaminophen (Tylenol -) 650 mg PO Q6H PRN PRN Reason: Fever Last Admin: 02/13/18 13:42 Dose: 650 mg Amlodipine Besylate (Norvasc -) 5 mg PO DAILY [facility] Last Admin: 02/14/18 10:29 Dose: 5 mg Artificial Tears (Artificial Tears) 1 drop OU DAILY PRN PRN Reason: DRY EYES Sodium Chloride (Normal Saline -) 250 mls @ 3,000 mls/hr IV PRN PRN PRN Reason: Hypotension during Dialysis Lactobacillus Acidophilus (Bacid -) 1 tab PO DAILY [facility] Last Admin: 02/14/18 10:29 Dose: 1 tab Lidocaine (Lidoderm Patch -) 1 patch TP DAILY [facility] Last Admin: 02/14/18 10:29 Dose: 1 patch Metoprolol Tartrate (Lopressor -) 25 mg PO BID [facility] Last Admin: 02/14/18 10:29 Dose: 25 mg Miscellaneous (Lidoderm Patch Removal) 1 each MC DAILY@2200 [facility] Last Admin: 02/13/18 22:27 Dose: 1 each Vancomycin HCl (Vancomycin Oral Solution) 125 mg PO Q6HPO [facility] Last Admin: 02/14/18 13:03 Dose: 125 mg - Objective Vital Signs: Vital Signs Temperature 97.2 F L 02/14/18 13:27 Pulse Rate 57 L 02/14/18 13:27 Respiratory Rate 18 02/14/18 13:27 Blood Pressure 136/71 02/14/18 13:27 O2 Sat by Pulse Oximetry (%) 95 02/14/18 09:00 Constitutional: Yes: Calm Eyes: Yes: Conjunctiva Clear HENT: Yes: Atraumatic Cardiovascular: Yes: S1, S2 Respiratory: Yes: CTA Bilaterally Gastrointestinal: Yes: Soft Genitourinary: Yes: Incontinence Musculoskeletal: Yes: Muscle Weakness Edema: No Neurological: Yes: Oriented Labs: CBC, BMP 02/13/18 07:00 02/13/18 07:00 INR, PTT INR 1.50 (0.83-1.09) H 01/31/18 06:00 Problem List - Problems (1) ESRD (end stage renal disease) on dialysis Code(s): N18.6 - END STAGE RENAL DISEASE; Z99.2 - DEPENDENCE ON RENAL DIALYSIS Assessment/Plan Current Medications Generic Name Dose Route Start Last Admin Trade Name Freq PRN Reason Stop Dose Admin Acetaminophen 650 mg 02/08/18 12:12 02/13/18 13:42 Tylenol - PO 650 mg Q6H PRN Administration Fever Amlodipine Besylate 5 mg 02/12/18 10:00 02/14/18 10:29 Norvasc - PO 5 mg DAILY HARPAL Administration Artificial Tears 1 drop 02/08/18 12:12 Artificial Tears OU DAILY PRN DRY EYES Sodium Chloride 250 mls @ 3,000 mls/hr 02/11/18 12:12 Normal Saline - IV PRN PRN Hypotension during Dialysis Lactobacillus Acidophilus 1 tab 02/09/18 10:00 02/14/18 10:29 Bacid - PO 1 tab DAILY [facility] Administration Lidocaine 1 patch 02/09/18 10:00 02/14/18 10:29 Lidoderm Patch - TP 1 patch DAILY HARPAL Administration Metoprolol Tartrate 25 mg 02/08/18 22:00 02/14/18 10:29 Lopressor - PO 25 mg BID HARPAL Administration Miscellaneous 1 each 02/08/18 22:00 02/13/18 22:27 Lidoderm Patch Removal MC 1 each DAILY@2200 HARPAL Administration Vancomycin HCl 125 mg 02/08/18 18:00 02/14/18 13:03 Vancomycin Oral Solution PO 125 mg Q6HPO HARPAL Administration Impression 1. ESRD 2. failed kidney transplant 3. hx DM 4. Hx HTN 5. altered mental status 6. post op infection 7. c.diff 8. a-fib 9. failure to thrive 10.malnutrition 11. anemia 12. GI bleed Plan - HD in am, pt on MWF schedule - pending placement in HD unit - pt tolerated HD yesterday - cont pt - epogen for anemia Dr Winters
--- NOTE | 2018-02-14 20:58 | PN ---
Physical Exam: SUBJECTIVE: Patient seen and examined at bedside. No acute events overnight. Endorses generalized body pain. OBJECTIVE: Vital Signs Period Temp Pulse Resp BP Sys/Franco Pulse Ox Last 24 Hr 97.2 F-98.0 F 57-69 18-20 115-178/41-91 95-95 GENERAL: Facial grimacing, AAOx3. HEAD: NC/AT EYES:PERRLA EOMI ENT: MMM NECK: Trachea midline, full range of motion, supple. LUNGS: CTA B/L HEART: RRR No MRG S1 S2 ABDOMEN: Open surgical wound right abdomen. EXTREMITIES: R heel ulcer. Muscle wasting b/l lower extremities NEUROLOGICAL: CN 2-12 intact PSYCH: Normal mood, normal affect. SKIN: Sacral decubitus ulcer Laboratory Results - last 24 hr 02/13/18 02/14/18 02/14/18 22:31 05:23 12:02 POC Glucometer 97 66 103 02/14/18 16:47 POC Glucometer 104 Active Medications Generic Name Dose Route Start Last Admin Trade Name Freq PRN Reason Stop Dose Admin Acetaminophen 650 mg 02/08/18 12:12 02/13/18 13:42 Tylenol - PO 650 mg Q6H PRN Administration Fever Amlodipine Besylate 5 mg 02/12/18 10:00 02/14/18 10:29 Norvasc - PO 5 mg DAILY [facility] Administration Artificial Tears 1 drop 02/08/18 12:12 Artificial Tears OU DAILY PRN DRY EYES Epoetin Abe 8,000 unit 02/15/18 14:39 Epogen - IVPUSH 02/15/18 14:40 ONCE ONE Sodium Chloride 250 mls @ 3,000 mls/hr 02/11/18 12:12 Normal Saline - IV PRN PRN Hypotension during Dialysis Sodium Chloride 250 mls @ 3,000 mls/hr 02/15/18 14:00 Normal Saline - IV 02/15/18 14:01 PRN PRN Hypotension during Dialysis Lactobacillus Acidophilus 1 tab 02/09/18 10:00 02/14/18 10:29 Bacid - PO 1 tab DAILY HARPAL Administration Lidocaine 1 patch 02/09/18 10:00 02/14/18 10:29 Lidoderm Patch - TP 1 patch DAILY HARPAL Administration Metoprolol Tartrate 25 mg 02/08/18 22:00 02/14/18 10:29 Lopressor - PO 25 mg BID HARPAL Administration Miscellaneous 1 each 02/08/18 22:00 02/13/18 22:27 Lidoderm Patch Removal MC 1 each DAILY@2200 HARPAL Administration Vancomycin HCl 125 mg 02/08/18 18:00 02/14/18 17:04 Vancomycin Oral Solution PO 125 mg Q6HPO HARPAL Administration ASSESSMENT/PLAN: Patient is a 77 year old female, previously admitted at [facility] for 144 days (s/p failed renal transplant, s/p removal), discharged AMA, as per son, brought at the ED for lethargy. #ESRD: failed renal transplant, s/p removal, permacath in place, waiting for chair at HD and equipment to be delivered at home -Hemodialysis (MWF) -Nephrology (Dr. Winters)--> HD placement contingent upon need to confirm some more information prior to accepting -epogen #Abdominal wound: resolved, s/p IR guided drainage -off IV abx -Continue PO Vancomycin for hx of cdiff -Vancomycin [id number]. Day 10 of 14. Will taper as follows: 1.Vancomycin 125mg twice a day for 7 days, THEN... 2. Vancomycin 125mg once a day for 7 days, THEN... 3. Vancomycin 125mg every 2-3 days for 1 month. -Contact isolation. #Hypertension Amlodipine 5 mg PO Daily started. 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 -Holding AC for GI bleed, decided not to restart #Atrial fibrillation -Eliquis 2.5 mg BID discontinued -continue Metoprolol (Lopressor) 25mg BID. #Anemia: stable. 8.5/25.7 (02/13) -Epogen #FEN -Electrolytes wnl -renal diet. #Prophylaxis -Eliquis on hold #Disposition -For discharge contingent upon outpatient HD arrangement. Visit type - Emergency Visit Emergency Visit: Yes ED Registration Date: 01/16/18 Care time: The patient presented to the Emergency Department on the above date and was hospitalized for further evaluation of their emergent condition. - New Patient This patient is new to me today: No - Critical Care Critical Care patient: No - Discharge Referral Referred to [facility] Med [facility].: No
[2018-02-14] MEDS: LIDOCAINE PATCH REMOVAL MC SCH (21:38)
[2018-02-15] MEDS: VANCOMYCIN 250 MG/5 ML ORAL SOLUTION PO SCH ×2 (05:24→12:06)
[2018-02-15] MEDS: ACETAMINOPHEN 325 MG TABLET (FP) PO PRN ×2 (09:34→18:14)
[2018-02-15] MEDS: amLODIPine BESYLATE 5 MG TABLET (FP) PO SCH (09:34)
[2018-02-15] MEDS: METOPROLOL TARTRATE 25 MG TABLET (FP) PO SCH ×2 (09:34→22:16)
[2018-02-15] MEDS: LACTOBACILLUS ACIDOPHILUS 1 TABLET PO SCH (09:34)
[2018-02-15] MEDS: LIDOCAINE 5% TOPICAL PATCH TP SCH (09:34)
--- NOTE | 2018-02-15 09:49 | PN ---
Progress Note, Physician History of Present Illness: Pt seen and examined at bedside. She is awake and appears comfortable. - Current Medication List Current Medications: Active Medications Acetaminophen (Tylenol -) 650 mg PO Q6H PRN PRN Reason: Fever Last Admin: 02/15/18 09:34 Dose: 650 mg Amlodipine Besylate (Norvasc -) 5 mg PO DAILY [facility] Last Admin: 02/15/18 09:34 Dose: 5 mg Artificial Tears (Artificial Tears) 1 drop OU DAILY PRN PRN Reason: DRY EYES Last Admin: 02/15/18 09:35 Dose: 1 drop Epoetin Abe (Epogen -) 8,000 unit IVPUSH ONCE ONE Stop: 02/15/18 14:40 Sodium Chloride (Normal Saline -) 250 mls @ 3,000 mls/hr IV PRN PRN PRN Reason: Hypotension during Dialysis Sodium Chloride (Normal Saline -) 250 mls @ 3,000 mls/hr IV PRN PRN PRN Reason: Hypotension during Dialysis Stop: 02/15/18 14:01 Lactobacillus Acidophilus (Bacid -) 1 tab PO DAILY [facility] Last Admin: 02/15/18 09:34 Dose: 1 tab Lidocaine (Lidoderm Patch -) 1 patch TP DAILY [facility] Last Admin: 02/15/18 09:34 Dose: 1 patch Metoprolol Tartrate (Lopressor -) 25 mg PO BID [facility] Last Admin: 02/15/18 09:34 Dose: 25 mg Miscellaneous (Lidoderm Patch Removal) 1 each MC DAILY@2200 [facility] Last Admin: 02/14/18 21:38 Dose: 1 each Vancomycin HCl (Vancomycin Oral Solution) 125 mg PO Q6HPO [facility] Last Admin: 02/15/18 05:24 Dose: 125 mg - Objective Vital Signs: Vital Signs Temperature 97.5 F L 02/15/18 09:39 Pulse Rate 67 02/15/18 09:39 Respiratory Rate 18 02/15/18 09:39 Blood Pressure 178/92 H 02/15/18 09:39 O2 Sat by Pulse Oximetry (%) 98 02/14/18 21:00 Constitutional: Yes: Calm, Cachectic Eyes: Yes: Conjunctiva Clear HENT: Yes: Atraumatic Neck: Yes: Supple Cardiovascular: Yes: S1, S2 Respiratory: Yes: CTA Bilaterally Gastrointestinal: Yes: Soft Genitourinary: Yes: Incontinence Musculoskeletal: Yes: Muscle Weakness Edema: No Neurological: Yes: Oriented Labs: CBC, BMP 02/13/18 07:00 02/13/18 07:00 INR, PTT INR 1.50 (0.83-1.09) H 01/31/18 06:00 Problem List - Problems (1) ESRD (end stage renal disease) on dialysis Code(s): N18.6 - END STAGE RENAL DISEASE; Z99.2 - DEPENDENCE ON RENAL DIALYSIS Assessment/Plan Current Medications Generic Name Dose Route Start Last Admin Trade Name Freq PRN Reason Stop Dose Admin Acetaminophen 650 mg 02/08/18 12:12 02/15/18 09:34 Tylenol - PO 650 mg Q6H PRN Administration Fever Amlodipine Besylate 5 mg 02/12/18 10:00 02/15/18 09:34 Norvasc - PO 5 mg DAILY [facility] Administration Artificial Tears 1 drop 02/08/18 12:12 02/15/18 09:35 Artificial Tears OU 1 drop DAILY PRN Administration DRY EYES Epoetin Abe 8,000 unit 02/15/18 14:39 Epogen - IVPUSH 02/15/18 14:40 ONCE ONE Sodium Chloride 250 mls @ 3,000 mls/hr 02/11/18 12:12 Normal Saline - IV PRN PRN Hypotension during Dialysis Sodium Chloride 250 mls @ 3,000 mls/hr 02/15/18 14:00 Normal Saline - IV 02/15/18 14:01 PRN PRN Hypotension during Dialysis Lactobacillus Acidophilus 1 tab 02/09/18 10:00 02/15/18 09:34 Bacid - PO 1 tab DAILY [facility] Administration Lidocaine 1 patch 02/09/18 10:00 02/15/18 09:34 Lidoderm Patch - TP 1 patch DAILY [facility] Administration Metoprolol Tartrate 25 mg 02/08/18 22:00 02/15/18 09:34 Lopressor - PO 25 mg BID HARPAL Administration Miscellaneous 1 each 02/08/18 22:00 02/14/18 21:38 Lidoderm Patch Removal MC 1 each DAILY@2200 HARPAL Administration Vancomycin HCl 125 mg 02/08/18 18:00 02/15/18 05:24 Vancomycin Oral Solution PO 125 mg Q6HPO HARPAL Administration Impression 1. ESRD 2. failed kidney transplant 3. hx DM 4. Hx HTN 5. altered mental status 6. post op infection 7. c.diff 8. a-fib 9. failure to thrive 10.malnutrition 11. anemia 12. GI bleed Plan - HD today - pt has HD set up at [facility] for MWF - encourage PO intake, will need one to one feeds - will need vascular follow up after discharge for av fistula - cont supplements - monitor bp after am meds - epogen for anemia Dr Winters
--- NOTE | 2018-02-15 10:36 | PN ---
Progress Note, AEROSPACE STRESS ENGINEER - Note Progress Note: Selected Entries 02/14/18 02/14/18 02/14/18 10:00 11:27 13:27 Breakfast 50% Lunch 100% Supper Temperature 97.9 F 97.2 F L 02/14/18 02/14/18 02/14/18 18:00 19:05 21:30 Breakfast Lunch Supper 50% Temperature 98.0 F 97.8 F 02/15/18 09:39 Breakfast Lunch Supper Temperature 97.5 F L Laboratory Tests 02/13/18 07:00 WBC 6.0 Case discussed with PNP and nursing. Good appetite.
[2018-02-15] MEDS ORDERED: SODIUM CHLORIDE 250 ML IV PRN (12:04)
[2018-02-15] MEDS ORDERED: EPOETIN ALFA 2,000 UNIT/1 ML VIAL IVPUSH ONE (12:15)
[2018-02-15 12:47] LABS: HEMATOCRIT 26.4 % (32.4-45.2); HEMOGLOBIN 8.5 GM/dL (10.7-15.3); MCH 30.7 pg (25.7-33.7); MCHC 32.1 g/dl (32.0-36.0); MEAN CELL VOLUME 95.5 fl (80-96); MEAN PLT VOLUME 8.8 fl (7.5-11.1); PLATELET COUNT 134 K/MM3 (134-434); RBC 2.77 M/mm3 (3.60-5.2); RDW 16.4 % (11.6-15.6); WHITE BLOOD COUNT 6.3 K/mm3 (4.0-10.0)
[2018-02-15 13:14] LABS: ANION GAP 7 MMOL/L (8-16); BLOOD UREA NITROGEN 13 mg/dL (7-18); CALCIUM 7.7 mg/dL (8.5-10.1); CHLORIDE 100 mmol/L (98-107); CO2 32 mmol/L (21-32); CREATININE 2.9 mg/dL (0.55-1.3); GLUCOSE,RANDOM 68 mg/dL (74-106); POTASSIUM 3.8 mmol/L (3.5-5.1); SODIUM 139 mmol/L (136-145)
--- NOTE | 2018-02-15 13:39 | DS ---
Physical Exam: SUBJECTIVE: Patient seen and examined at bedside. No acute events overnight. Endorsing generalized pain. OBJECTIVE: Vital Signs Period Temp Pulse Resp BP Sys/Franco Pulse Ox Last 24 Hr 97.5 F-98.0 F 61-67 18-19 165-178/82-92 98 PHYSICAL EXAM GENERAL: AAOx3, facial grimacing, cachexia HEAD: NC/AT EYES: EOMI ENT: MMM LUNGS: CTA B/L HEART: RRR No MRG S1S2 ABDOMEN: R abdominal open wound s/p kidney transplant resection EXTREMITIES: Ulcer R heel. Muscle wasting all 4 extremities SKIN: Stage 3 sacral decubitus ulcer. No draiange or odor. LABS Laboratory Results - last 24 hr 02/14/18 02/14/18 02/15/18 16:47 21:38 06:01 WBC RBC Hgb Hct MCV MCH MCHC RDW Plt Count MPV Sodium Potassium Chloride Carbon Dioxide Anion Gap BUN Creatinine Creat Clearance w eGFR POC Glucometer 104 90 69 Random Glucose Calcium 02/15/18 02/15/18 02/15/18 07:00 11:58 12:00 WBC RBC Hgb Hct MCV MCH MCHC RDW Plt Count MPV Sodium 139 Potassium 3.8 Chloride 100 Carbon Dioxide 32 Anion Gap 7 L BUN 13 Creatinine 2.9 H Creat Clearance w eGFR 15.69 POC Glucometer 91 90 Random Glucose 68 L Calcium 7.7 L 02/15/18 12:00 WBC 6.3 RBC 2.77 L Hgb 8.5 L Hct 26.4 L MCV 95.5 MCH 30.7 MCHC 32.1 RDW 16.4 H Plt Count 134 MPV 8.8 Sodium Potassium Chloride Carbon Dioxide Anion Gap BUN Creatinine Creat Clearance w eGFR POC Glucometer Random Glucose Calcium HOSPITAL COURSE: Date of Admission:01/16/18 Date of Discharge: 02/15/18 Discharge Summary Reason For Visit: POSTOPERATIVE INFECTION Current Active Problems Altered mental status (Acute) C. difficile colitis (Acute) Depressed (Acute) ESRD (end stage renal disease) on dialysis (Acute) GI bleed (Acute) Pain aggravated by changing postions (Acute) Post-operative infection (Acute) Rectal bleeding (Acute) UTI (urinary tract infection) (Acute) Condition: Improved - Instructions Diet, Activity, Other Instructions: You were admitted for the treatment of abdominal wound infection. CAT scan was done which showed some fluid that was collecting behind the wound on your belly. The fluid was drained and you were given IV antibiotics. You also had episodes of bleeding from your rectum. Colonoscopy was done which showed some diverticula, which are pouches in the ag of the bowel. It did not show any active bleeding at the time of colonoscopy and since has resolved. You were noted to have a stool infection, for which you will need to continue taking the antibiotics for a few more weeks. PLEASE TAKE THE FOLLOWING MEDICATION DESCRIBED BELOW IN ORDER: 1. Vancomycin 125mg twice a day for 7 days, THEN... 2. Vancomycin 125mg once a day for 7 days, THEN... 3. Vancomycin 125mg every 2-3 days for 1 month. 4. Follow with the infectious disease specialist after 1 month for further evaluation of the infection You received hemodialysis while you were here in the hospital. We arranged a place for you where you can have your hemodialysis as outpatient ([facility]). You will get this information before you leave the hospital. Please follow-up with your primary care doctor within 1-2 weeks prior to discharge. Other Medication Recommendations: Please take metoprolol 25mg twice a day for blood pressure. Please take norvasc 5mg once daily for your blood pressure. Call 911 or go the ED if with any worsening headaches, chest pain, shortness of breath, belly pain, bloody stools, or any new concerns noted. Referrals: Kermit Torres DO [Staff Physician] - 1 Week Danielle Winters MD [Staff Physician] - 1 Week Disposition: VNS/HOME HEALTH CARE - Home Medications Comprehensive Discharge Medication List: Ambulatory Orders Lactobacillus Acidophilus [Bacid -] 1 tab PO DAILY #30 tab 02/11/18 Metoprolol Tartrate [Lopressor -] 25 mg PO BID #60 tablet 02/11/18 Vancomycin Oral Solution 125 mg PO Q6HPO #100 ml 02/11/18 - Discharge Referral Referred to [facility] Med [facility] No
--- NOTE | 2018-02-15 16:28 | PN ---
Teaching Attending Note Name of Resident: Fernando Ricci ATTENDING PHYSICIAN STATEMENT I saw and evaluated the patient. I reviewed the resident's note and discussed the case with the resident. I agree with the resident's findings and plan as documented. SUBJECTIVE: Has no complaints at this time. no over night events, OBJECTIVE: Selected Entries 02/13/18 02/15/18 02/15/18 07:30 13:45 14:15 Pulse Rate 65 68 Blood Pressure 167/89 152/78 145/85 02/15/18 02/15/18 02/15/18 14:45 15:00 15:17 Pulse Rate Blood Pressure 158/84 158/84 161/76 Current Medications Generic Name Dose Route Start Last Admin Trade Name Freq PRN Reason Stop Dose Admin Acetaminophen 650 mg 02/08/18 12:12 02/15/18 09:34 Tylenol - PO 650 mg Q6H PRN Administration Fever Amlodipine Besylate 5 mg 02/12/18 10:00 02/15/18 09:34 Norvasc - PO 5 mg DAILY HARPAL Administration Artificial Tears 1 drop 02/08/18 12:12 02/15/18 09:35 Artificial Tears OU 1 drop DAILY PRN Administration DRY EYES Sodium Chloride 250 mls @ 3,000 mls/hr 02/11/18 12:12 Normal Saline - IV PRN PRN Hypotension during Dialysis Lactobacillus Acidophilus 1 tab 02/09/18 10:00 02/15/18 09:34 Bacid - PO 1 tab DAILY HARPAL Administration Lidocaine 1 patch 02/09/18 10:00 02/15/18 09:34 Lidoderm Patch - TP 1 patch DAILY HARPAL Administration Metoprolol Tartrate 25 mg 02/08/18 22:00 02/15/18 09:34 Lopressor - PO 25 mg BID HARPAL Administration Miscellaneous 1 each 02/08/18 22:00 02/14/18 21:38 Lidoderm Patch Removal MC 1 each DAILY@2200 HARPAL Administration Vancomycin HCl 125 mg 02/08/18 18:00 02/15/18 12:06 Vancomycin Oral Solution PO 125 mg Q6HPO HARPAL Administration She is in no distress, MMM No occlar discharge No nasal discharge CVS'S1S2+ MURMUR Abd; BS+ NT/ND Cachectic ASSESSMENT AND PLAN: 77 yo F LOS 30 days, ESRD on HD, failed transplant kidney in 09/2017 s/p removal/ off immunosuppressants, P/W AMS in the setting of metabolic encephalopathy, complicated course whit GIB, C.Diff. now was ready to be DCed pending HD center acceptance. 1) ESRD on HD:At this time she is in no distress, tolerating HD well. 2. GI bleedS/P transfusion: likely diverticular/ also large hiatal hernia. s/p EGD/ehmusechklq19/12/2018. will discuss with the GI regards to reinitiate AC as she has no active ulcer that is bleeding and also will discuss with the family about reintroducing AC. 3) cachectia and possibility of malnutrition: Will ask nutrition consult to evaluate the patient. 4. HTN- increase norvasc to 10 mg dailt. has to be further managed by nephrology as O/P. 5) Afib: h/o AFib with wide complex tachycardia- on metoprolol. now off NOAC. she has no active ulcer that is bleeding and family is not willing to restart AC at this time. Prolonged QTc- Qtc 496. avoid QT prolonging medication Will F/U with cardiology for final recommendations and possible EP evaluation as O/P. 6. 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 on vanco po, cont QID day 04/05 then will need taper. contact precautions. cont pro-biotic 11. DVT ppx- SCD. retart SQ heparin 12. pt is medically optimized for discharge at this time. HD outpatient secured and can start on 02/19.
--- NOTE | 2018-02-15 22:14 | PN ---
Physical Exam: SUBJECTIVE: Patient seen and examined at bedside. No acute events overnight. Endorses generalized body pain. OBJECTIVE: Vital Signs Period Temp Pulse Resp BP Sys/Franco Pulse Ox Last 24 Hr 97.2 F-98.0 F 61-68 18-18 135-178/74-99 98 GENERAL: AAOx3, facial grimacing, cachexia HEAD: NC/AT EYES: EOMI ENT: MMM LUNGS: CTA B/L HEART: RRR No MRG S1S2 ABDOMEN: R abdominal open wound s/p kidney transplant resection EXTREMITIES: Ulcer R heel. Muscle wasting all 4 extremities SKIN: Stage 3 sacral decubitus ulcer. No draiange or odor. Laboratory Results - last 24 hr 02/15/18 02/15/18 02/15/18 06:01 07:00 11:58 WBC RBC Hgb Hct MCV MCH MCHC RDW Plt Count MPV Sodium Potassium Chloride Carbon Dioxide Anion Gap BUN Creatinine Creat Clearance w eGFR POC Glucometer 69 91 90 Random Glucose Calcium 02/15/18 02/15/18 12:00 12:00 WBC 6.3 RBC 2.77 L Hgb 8.5 L Hct 26.4 L MCV 95.5 MCH 30.7 MCHC 32.1 RDW 16.4 H Plt Count 134 MPV 8.8 Sodium 139 Potassium 3.8 Chloride 100 Carbon Dioxide 32 Anion Gap 7 L BUN 13 Creatinine 2.9 H Creat Clearance w eGFR 15.69 POC Glucometer Random Glucose 68 L Calcium 7.7 L Active Medications Generic Name Dose Route Start Last Admin Trade Name Freq PRN Reason Stop Dose Admin Acetaminophen 650 mg 02/08/18 12:12 02/15/18 18:14 Tylenol - PO 650 mg Q6H PRN Administration Fever Amlodipine Besylate 5 mg 02/12/18 10:00 02/15/18 09:34 Norvasc - PO 5 mg DAILY HARPAL Administration Artificial Tears 1 drop 02/08/18 12:12 02/15/18 09:35 Artificial Tears OU 1 drop DAILY PRN Administration DRY EYES Heparin Sodium (Porcine) 5,000 unit 02/15/18 22:00 Heparin - SQ BID HARPAL Sodium Chloride 250 mls @ 3,000 mls/hr 02/11/18 12:12 Normal Saline - IV PRN PRN Hypotension during Dialysis Lactobacillus Acidophilus 1 tab 02/09/18 10:00 02/15/18 09:34 Bacid - PO 1 tab DAILY HARPAL Administration Lidocaine 1 patch 02/09/18 10:00 02/15/18 09:34 Lidoderm Patch - TP 1 patch DAILY HARPAL Administration Metoprolol Tartrate 25 mg 02/08/18 22:00 02/15/18 09:34 Lopressor - PO 25 mg BID HARPAL Administration Miscellaneous 1 each 02/08/18 22:00 02/14/18 21:38 Lidoderm Patch Removal MC 1 each DAILY@2200 HARPAL Administration ASSESSMENT/PLAN: Patient is a 77 year old female, previously admitted at [facility] for 144 days (s/p failed renal transplant, s/p removal), discharged AMA, as per son, brought at the ED for lethargy. #ESRD: failed renal transplant, s/p removal, permacath in place, waiting for chair at HD and equipment to be delivered at home -Hemodialysis (MWF) -Nephrology (Dr. Winters)--> HD placement contingent upon need to confirm some more information prior to accepting -epogen #Abdominal wound: resolved, s/p IR guided drainage -off IV abx -Continue PO Vancomycin for hx of cdiff -Vancomycin [id number]. Day 11 of 14. Will taper as follows: 1.Vancomycin 125mg twice a day for 7 days, THEN... 2. Vancomycin 125mg once a day for 7 days, THEN... 3. Vancomycin 125mg every 2-3 days for 1 month. -Contact isolation. #Hypertension Amlodipine 5 mg PO Daily started. Increased to 10 daily #Sacral decubitus ulcer -Daily wound care. 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 -Holding AC for GI bleed, continuation of AC recommended as no active bleeding, ulcers not bleeding #Atrial fibrillation -Eliquis 2.5 mg BID discontinued -continue Metoprolol (Lopressor) 25mg BID. #Anemia: stable. 8.5/25.7 (02/13) -Epogen #FEN -Electrolytes wnl -renal diet. #Prophylaxis -Eliquis on hold #Disposition -For discharge contingent upon outpatient HD arrangement. Visit type - Emergency Visit Emergency Visit: Yes ED Registration Date: 01/16/18 Care time: The patient presented to the Emergency Department on the above date and was hospitalized for further evaluation of their emergent condition. - New Patient This patient is new to me today: No - Critical Care Critical Care patient: No - Discharge Referral Referred to [facility] No
[2018-02-15] MEDS: LIDOCAINE PATCH REMOVAL MC SCH (22:15)
[2018-02-15] MEDS: HEPARIN NA (PORCINE) 5,000 UNITS/ML 1ML VIAL SQ SCH (22:15)
[2018-02-16] MEDS: VANCOMYCIN 250 MG/5 ML ORAL SOLUTION PO SCH ×3 (00:56→11:47)
--- NOTE | 2018-02-16 08:41 | PN ---
Physical Exam: SUBJECTIVE: Patient seen and examined, no acute complaints. OBJECTIVE: Vital Signs Period Temp Pulse Resp BP Sys/Franco Pulse Ox Last 24 Hr 97.2 F-98.1 F 61-69 18-18 135-178/73-99 98-98 GENERAL: AAOx3, cachectic HEAD: NC/AT EYES: EOMI ENT: MMM LUNGS: CTA B/L HEART: RRR No MRG S1S2 ABDOMEN: R abdominal open wound s/p kidney transplant resection EXTREMITIES: Ulcer R heel. Muscle wasting all 4 extremities SKIN: Stage 3 sacral decubitus ulcer. No drainage or odor. Laboratory Results - last 24 hr 02/15/18 02/15/18 02/15/18 11:58 12:00 12:00 WBC 6.3 RBC 2.77 L Hgb 8.5 L Hct 26.4 L MCV 95.5 MCH 30.7 MCHC 32.1 RDW 16.4 H Plt Count 134 MPV 8.8 Sodium 139 Potassium 3.8 Chloride 100 Carbon Dioxide 32 Anion Gap 7 L BUN 13 Creatinine 2.9 H Creat Clearance w eGFR 15.69 POC Glucometer 90 Random Glucose 68 L Calcium 7.7 L 02/16/18 05:53 WBC RBC Hgb Hct MCV MCH MCHC RDW Plt Count MPV Sodium Potassium Chloride Carbon Dioxide Anion Gap BUN Creatinine Creat Clearance w eGFR POC Glucometer 81 Random Glucose Calcium Active Medications Generic Name Dose Route Start Last Admin Trade Name Freq PRN Reason Stop Dose Admin Acetaminophen 650 mg 02/08/18 12:12 02/15/18 18:14 Tylenol - PO 650 mg Q6H PRN Administration Fever Amlodipine Besylate 5 mg 02/12/18 10:00 02/15/18 09:34 Norvasc - PO 5 mg DAILY HARPAL Administration Artificial Tears 1 drop 02/08/18 12:12 02/15/18 09:35 Artificial Tears OU 1 drop DAILY PRN Administration DRY EYES Heparin Sodium (Porcine) 5,000 unit 02/15/18 22:00 02/15/18 22:15 Heparin - SQ 5,000 unit BID HARPAL Administration Sodium Chloride 250 mls @ 3,000 mls/hr 02/11/18 12:12 Normal Saline - IV PRN PRN Hypotension during Dialysis Lactobacillus Acidophilus 1 tab 02/09/18 10:00 02/15/18 09:34 Bacid - PO 1 tab DAILY HARPAL Administration Lidocaine 1 patch 02/09/18 10:00 02/15/18 09:34 Lidoderm Patch - TP 1 patch DAILY HARPAL Administration Metoprolol Tartrate 25 mg 02/08/18 22:00 02/15/18 22:16 Lopressor - PO 25 mg BID HARPAL Administration Miscellaneous 1 each 02/08/18 22:00 02/15/18 22:15 Lidoderm Patch Removal MC 1 each DAILY@2200 HARPAL Administration Vancomycin HCl 125 mg 02/16/18 00:00 02/16/18 06:35 Vancomycin Oral Solution PO 125 grams Q6HPO HARPAL Administration ASSESSMENT/PLAN: Patient is a 77 year old female, previously admitted at [facility] for 144 days (s/p failed renal transplant, s/p removal), discharged AMA, as per son, brought at the ED for lethargy. #ESRD: failed renal transplant, s/p removal, permacath in place, waiting for chair at HD and equipment to be delivered at home -Hemodialysis (MWF) -Placed at facility, will be up for DC today. -epogen #Abdominal wound: resolved, s/p IR guided drainage -off IV abx -Continue PO Vancomycin for hx of cdiff -Vancomycin [id number]. Day 12 of 14. Will taper as follows: 1.Vancomycin 125mg twice a day for 7 days, THEN... 2. Vancomycin 125mg once a day for 7 days, THEN... 3. Vancomycin 125mg every 2-3 days for 1 month. -Contact isolation. #Hypertension continue amlodipine 10 #Sacral decubitus ulcer -Daily wound care. 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 -Holding AC for GI bleed, continuation of AC recommended as no active bleeding, ulcers not bleeding #Atrial fibrillation: off AC due to GI bleed -continue Metoprolol (Lopressor) 25mg BID. #Anemia: stable -Epogen #FEN -Electrolytes wnl -renal diet. #Prophylaxis -Eliquis on hold #Disposition -For discharge today Visit type - Emergency Visit Emergency Visit: No - New Patient This patient is new to me today: No - Critical Care Critical Care patient: No
[2018-02-16] MEDS ORDERED: PT OWN MED DRAWER 7, Y5N ONE (09:47)
[2018-02-16] MEDS: LIDOCAINE 5% TOPICAL PATCH TP SCH (10:06)
[2018-02-16] MEDS: HEPARIN NA (PORCINE) 5,000 UNITS/ML 1ML VIAL SQ SCH (10:06)
[2018-02-16] MEDS: amLODIPine BESYLATE 5 MG TABLET (FP) PO SCH (10:06)
[2018-02-16] MEDS: METOPROLOL TARTRATE 25 MG TABLET (FP) PO SCH (10:06)
[2018-02-16] MEDS: LACTOBACILLUS ACIDOPHILUS 1 TABLET PO SCH (10:06)
--- NOTE | 2018-02-16 11:01 | PN ---
Teaching Attending Note Name of Resident: Amrik Carreon ATTENDING PHYSICIAN STATEMENT I saw and evaluated the patient. I reviewed the resident's note and discussed the case with the resident. I agree with the resident's findings and plan as documented. SUBJECTIVE: She has no complaint at this time, is S/P HD yesterday. OBJECTIVE: Last Vital Signs Temp Pulse Resp BP Pulse Ox 97.9 F 66 18 145/75 98 02/16/18 06:00 02/16/18 06:00 02/16/18 06:00 02/16/18 06:00 02/15/18 21:00 in no distress, she looks depressed tone of her voice has decreased, She has slow speach flow, poor eye contact, denies any SI/HI at this time. states that is ready to go home. MMM s1s2, murmur+ CTAB Abd; bs+ EXT; + fistula no erythema, ASSESSMENT AND PLAN: She is a 77 Y/O F W Prolonged hosptial stay due to AMS in the setting of metabolic encephalopathy in the setting of uremia, now improved on HD, ready to be DCed . for depresse mood: out patient psych evaluation she denies any SI/HI at this time.
[2018-02-16 15:07] VITALS: BP 160/84; PULSE 72; TEMP 97.7
--- NOTE | 2018-02-16 16:08 | PN ---
Progress Note, Physician History of Present Illness: Pt seen and examined at bedside She is awake and appears comfortable. Family are at bedside. She is being discharged today. - Objective Vital Signs: Vital Signs Temperature 97.7 F 02/16/18 10:00 Pulse Rate 72 02/16/18 10:00 Respiratory Rate 18 02/16/18 10:00 Blood Pressure 160/84 02/16/18 10:00 O2 Sat by Pulse Oximetry (%) 95 02/16/18 10:00 Constitutional: Yes: Calm Eyes: Yes: Conjunctiva Clear HENT: Yes: Atraumatic Cardiovascular: Yes: S1, S2 Respiratory: Yes: CTA Bilaterally Gastrointestinal: Yes: Normal Bowel Sounds, Soft Genitourinary: Yes: WNL Musculoskeletal: Yes: Muscle Weakness Edema: No Neurological: Yes: Oriented Labs: CBC, BMP 02/15/18 12:00 02/15/18 12:00 INR, PTT INR 1.50 (0.83-1.09) H 01/31/18 06:00 Problem List - Problems (1) ESRD (end stage renal disease) on dialysis Code(s): N18.6 - END STAGE RENAL DISEASE; Z99.2 - DEPENDENCE ON RENAL DIALYSIS Assessment/Plan Impression 1. ESRD 2. failed kidney transplant 3. hx DM 4. Hx HTN 5. altered mental status 6. post op infection 7. c.diff 8. a-fib 9. failure to thrive 10.malnutrition 11. anemia 12. GI bleed Plan - pt has HD scheduled as outpt on Sunday - pt will need to find and follow with a PMD as well - HD orders called in - vascular follow up for fistula - discussed plan with family at length - concepción for anemia Dr Winters
== END 2018-02-16 15:53 | disposition home health service (06) | DRG 862 ==
LOC: JER 13:59 → JERBED 01-16 02:38 → OBSVTOIN 01-16 12:35 → J5S 01-16 17:32 → J4S 01-16 19:00
PROVIDERS: ADMIT Internal Medicine; ATTEND Internal Medicine
PROC: 30233N1 Transfusion of Nonautologous Red Blood Cells into Peripheral Vein, Percutaneous Approach (ICD-10-PCS; 2018-01-17)
PROC: 5A1D70Z Performance of Urinary Filtration, Intermittent, Less than 6 Hours Per Day (ICD-10-PCS; 2018-01-17)
PROC: 0W9G30Z Drainage of Peritoneal Cavity with Drainage Device, Percutaneous Approach (ICD-10-PCS; 2018-01-18)
PROC: 5A1D70Z Performance of Urinary Filtration, Intermittent, Less than 6 Hours Per Day (ICD-10-PCS; 2018-01-19)
PROC: 5A1D70Z Performance of Urinary Filtration, Intermittent, Less than 6 Hours Per Day (ICD-10-PCS; 2018-01-22)
PROC: 5A1D70Z Performance of Urinary Filtration, Intermittent, Less than 6 Hours Per Day (ICD-10-PCS; 2018-01-26)
PROC: 0DJ08ZZ Inspection of Upper Intestinal Tract, Via Natural or Artificial Opening Endoscopic (ICD-10-PCS; 2018-02-01)
PROC: 0DJD8ZZ Inspection of Lower Intestinal Tract, Via Natural or Artificial Opening Endoscopic (ICD-10-PCS; 2018-02-01)
PROC: 0JH63XZ Insertion of Tunneled Vascular Access Device into Chest Subcutaneous Tissue and Fascia, Percutaneous Approach (ICD-10-PCS; 2018-02-05)
PROC: 02H633Z Insertion of Infusion Device into Right Atrium, Percutaneous Approach (ICD-10-PCS; principal; 2018-02-05 16:30)
PROC: 05HM33Z Insertion of Infusion Device into Right Internal Jugular Vein, Percutaneous Approach (ICD-10-PCS; 2018-02-08)
PROC: B513ZZA Fluoroscopy of Right Jugular Veins, Guidance (ICD-10-PCS; 2018-02-08)
DX: T81.49XA Infection following a procedure, other surgical site, initial encounter (principal); N18.6 End stage renal disease; E43 Unspecified severe protein-calorie malnutrition; G93.41 Metabolic encephalopathy; K65.1 Peritoneal abscess; K57.31 Diverticulosis of large intestine without perforation or abscess with bleeding; T81.31XA Disruption of external operation (surgical) wound, not elsewhere classified, initial encounter; I12.0 Hypertensive chronic kidney disease with stage 5 chronic kidney disease or end stage renal disease; N39.0 Urinary tract infection, site not specified; R18.8 Other ascites; T86.12 Kidney transplant failure; D62 Acute posthemorrhagic anemia; A04.72 Enterocolitis due to Clostridium difficile, not specified as recurrent; R64 Cachexia; T82.868A Thrombosis due to vascular prosthetic devices, implants and grafts, initial encounter; E11.22 Type 2 diabetes mellitus with diabetic chronic kidney disease; Y83.8 Other surgical procedures as the cause of abnormal reaction of the patient, or of later complication, without mention of misadventure at the time of the procedure; Z99.2 Dependence on renal dialysis; B96.20 Unspecified Escherichia coli [E. coli] as the cause of diseases classified elsewhere; Z68.23 Body mass index [BMI] 23.0-23.9, adult; D64.9 Anemia, unspecified; K44.9 Diaphragmatic hernia without obstruction or gangrene; R62.7 Adult failure to thrive; F32.9 Major depressive disorder, single episode, unspecified; E86.0 Dehydration; I48.91 Unspecified atrial fibrillation; R41.82 Altered mental status, unspecified; B96.4 Proteus (mirabilis) (morganii) as the cause of diseases classified elsewhere; I45.81 Long QT syndrome; K64.8 Other hemorrhoids; K29.70 Gastritis, unspecified, without bleeding; Z86.718 Personal history of other venous thrombosis and embolism
CPT/HCPCS: 36415; 36430; 36511; 49406; 49424; 71045-TC-FY; 74174-TC; 74177-TC; 76000-TC-FY; 76080-TC-FY; 76098-TC-FY; 76380-TC; 80048; 80053; 81003; 81015; 82803; 82962; 83735; 84100; 84484; 85025; 85027; 85610; 85730; 86704; 86706; 86708; 86803; 86850; 86870; 86900; 86901; 86902; 86922; 87040; 87070; 87075; 87086; 87102; 87116; 87186; 87205; 87206; 87210; 87340; 87899; 93005; 93010; 93971; 93971-TC; 94760; 97116-GP; 97161-GP; 99285-25; C1729; C1769; G0378; J0131; J0885; J1644; P9038; P9047; P9058

== ENCOUNTER 2018-02-18 20:59 | Emergency (ER) | payer OTHER, BC ==
--- NOTE | 2018-02-18 21:49 | PDOC ---
History of Present Illness - General History Source: Patient, Family (sons) Exam Limitations: Other (pt not properly responding) - History of Present Illness Initial Comments: 02/18/18 21:46 Pt is a 77yo f with PMH of ESRD on HD m/w/f s/p nephrectomy, DM, HTN, Afib not on AC, GI bleed, CDiff, presenting to ED after dialysis for bruising on the R side of the face and L hand swelling. Pt was recently d/c from hospital 2 days ago. Per family, pt has not been eating and they noticed bruising on the face and swelling in the L hand since the discharge. They were told to come to ED after HD from dialysis team. Since discharge, pt has not had fevers, chills, falls, LOC, n/v/d, dark stools, bloody stools. She is tolerating PO but has loss of appetite. <Tatiana Hough - Last Filed: 02/18/18 21:49> <Sofia Srinivasan - Last Filed: 02/19/18 01:25> - General Chief Complaint: Eye Problem Stated Complaint: BRUISING ON FACE Time Seen by Provider: 02/18/18 21:23 Past History - Past Medical History Anemia: No Asthma: No Cancer: No Cardiac Disorders: No CVA: No COPD: No CHF: No Dementia: Yes Diabetes: Yes GI Disorders: No Disorders: No HTN: Yes Hypercholesterolemia: Yes Seizures: No Thyroid Disease: No - Suicide/Smoking/Psychosocial Hx Smoking History: Never smoked Have you smoked in the past 12 months: No Hx Alcohol Use: No (No information was available as patient was unresponsive.) Drug/Substance Use Hx: No (No information was available as patient unresponsive. ) Substance Use Type: None Hx Substance Use Treatment: No <Tatiana Hough - Last Filed: 02/18/18 21:49> <Sofia Srinivasan - Last Filed: 02/19/18 01:25> - Past Medical History Allergies/Adverse Reactions: Allergies Allergy/AdvReac Type Severity Reaction Status Date / Time No Known Allergies Allergy Verified 02/18/18 21:53 Home Medications: Ambulatory Orders Lactobacillus Acidophilus [Bacid -] 1 tab PO DAILY #30 tab 02/11/18 Metoprolol Tartrate [Lopressor -] 25 mg PO BID #60 tablet 02/11/18 Vancomycin Oral Solution 125 mg PO Q6HPO #100 ml 02/11/18 Amlodipine Besylate [Norvasc -] 5 mg PO DAILY #30 tablet 02/16/18 Miscellaneous Medical Supply [Glucometer Device] 1 each SQ ASDIR #1 kit Miscellaneous Medical Supply [Glucometer Test Strips #50] 1 each SQ ASDIR #1 box 02/16/18 Miscellaneous Medical Supply [Lancets] 1 each SQ ASDIR #1 box 02/16/18 Miscellaneous Medical Supply [Outpatient Order] 1 each ASDIR #1 misc *Physical Exam - Physical Exam Cardiovascular: positive: Systolic Murmur Vascular Pulses: Carotid (R): 2+, Carotid (L): 2+, Dorsalis-Pedis (R): 1+, Doralis-Pedis (L): 1+ Integumentary: positive: Other (stage 3 decubitus sacral ulcer) <Tatiana Hough - Last Filed: 02/18/18 21:49> - Vital Signs Last Vital Signs Temp Pulse Resp BP Pulse Ox 96.6 F L 66 16 157/92 100 02/18/18 21:00 02/18/18 21:00 02/18/18 21:00 02/18/18 21:00 02/18/18 21:00 <Sofia Srinivasan - Last Filed: 02/19/18 01:25> ED Treatment Course - LABORATORY CBC & Chemistry Diagram: 02/18/18 23:05 02/19/18 00:25 - ADDITIONAL ORDERS Additional order review: Laboratory Results 02/19/18 02/19/18 02/19/18 00:25 00:25 00:25 PT with INR 14.30 H INR 1.21 H PTT (Actin FS) 32.3 Sodium 138 Potassium 3.7 Chloride 102 Carbon Dioxide 30 Anion Gap 6 L BUN 7 Creatinine 1.8 H Creat Clearance w eGFR 27.21 POC Glucometer Random Glucose 107 H Calcium 7.8 L Phosphorus 2.1 L Magnesium 1.8 Total Bilirubin 0.6 AST 30 ALT 6 L Alkaline Phosphatase 295 H Total Protein 6.2 L Albumin 1.6 L 02/18/18 21:51 PT with INR INR PTT (Actin FS) Sodium Potassium Chloride Carbon Dioxide Anion Gap BUN Creatinine Creat Clearance w eGFR POC Glucometer 113.09958 Random Glucose Calcium Phosphorus Magnesium Total Bilirubin AST ALT Alkaline Phosphatase Total Protein Albumin 02/18/18 02/18/18 23:05 21:51 RBC 2.77 L MCV 95.9 MCHC 32.7 RDW 17.4 H MPV 9.4 Neutrophils % 67.2 Lymphocytes % 19.0 D Monocytes % 9.4 Eosinophils % 3.1 Basophils % 1.3 POC Glucometer 113.21969 <Sofia Srinivasan - Last Filed: 02/19/18 01:25> *DC/Admit/Observation/Transfer <Tatiana Hough - Last Filed: 02/18/18 21:49> - Discharge Dispostion Decision to Admit order: No <Sofia Srinivasan - Last Filed: 02/19/18 01:25> Diagnosis at time of Disposition: Bruising - Discharge Dispostion Disposition: HOME Condition at time of disposition: Stable - Patient Instructions Printed Discharge Instructions: DI for Hematoma (Bruise) Additional Instructions: You were seen in the ED for complaints of bruising. In the ED you were evaluated with labwork and imaging. Your results were unremarkable. There does not appear to be an acute need for immediate hospitalization. You are advised to follow up with your Primary Care Physician within 1 week. Return to the ED immediately if you experience worsening bruising, blood from the nose, in the urine or the stool, nausea, vomiting, headaches, loss of consciousness, chest pain or shortness of breath.
[2018-02-18 21:53] VITALS: BMI 25.4
--- NOTE | 2018-02-18 22:27 | PDOC ---
Attending Attestation - HPI HPI: 02/18/18 23:07 The patient is a 75 year old female with a significant past medical history of ESRD on HD m/w/f s/p nephrectomy, DM, HTN, Afib not on AC, GI bleed, CDiff, presenting to the ED after dialysis for bruising on the R side of the face and L hand swelling. As per family, the patient has not been eating much lately and they noticed bruising on the face and swelling in the L hand. The patient denies chest pain, shortness of breath, headache and dizziness. The patient denies fever, chills, nausea, vomit, diarrhea and constipation. The patient denies dysuria, frequency, urgency and hematuria. Allergies: NKDA Past surgical history: s/p nephrectomy - Physicial Exam PE: 02/18/18 23:08 GENERAL: (+) frail, cachectic. No apparent distress. HEENT: (+) bilateraly periorbital ecchymosis. Mild swelling and ecchymosis to right zygoma. Mild echymosis on left no swelling. No hematomas. No scalp lacerations. Normocephalic, PERRL, EOM intact. TM intact. NECK: nontender. No CLAD. CARDIOVASCULAR: Normal S1, S2. Regular rate and rhythm. PULMONARY: Clear to auscultation bilaterally. ABDOMEN: Soft, non-distended, non-tender. EXTREMITIES: Normal ROM in all four extremities. No gross deformities. SKIN: (+) decubitus sacral ulcer stage 2-3. Warm, dry. No rash NEUROLOGICAL: Alert and conversant. Moving all extremities purposefully. No focal neurological deficits. - Medical Decision Making 02/18/18 23:08 Documentation prepared by Phoebe Brooks, acting as medical claims processor for Carlita Etienne MD EXAM#: TYPE/EXAM: RESULT: [id number] CT/HEAD CT WITHOUT CONTRAST Cranial CT without contrast Impression: No CT evidence of acute intracranial pathology. Mild to moderate periventricular chronic microvascular ischemic changes. Paranasal sinus disease and bilateral mastoid fluid accumulation as discussed above. Reported By: Zac Can MD 02/19/18 0003 <Phoebe Brooks - Last Filed: 02/19/18 00:29> - Resident Resident Name: Tatiana Hough - ED Attending Attestation I have performed the following: I have examined & evaluated the patient, The case was reviewed & discussed with the resident, I agree w/resident's findings & plan, Exceptions are as noted - HPI HPI: 02/18/18 22:24 79-year-old female brought in by family for perioral ecchymosis and some zygomatic ecchymosis. He is denying any history of recent trauma. Patient was admitted for the last month as [facility] and just discharged February 16. Patient has a history of end-stage renal disease and was at dialysis today when the ecchymosis was noted - Medical Decision Making 02/18/18 23:49 This patient has been home with her daughter since her discharge on February 16 and the daughter is NOT aware of any trauma. Plan CAT scan to rule out any trauma. Patient did go to dialysis today 02/19/18 01:24 02/19/18 01:25 ct scan was negative for any acute intracranial pathology coags were fine with INR=1.12 createnine was 1.8 and the potassium was normal imp facial bruising <Carlita Etienne - Last Filed: 02/19/18 01:28>
[2018-02-18 23:14] LABS: BASO % 1.3 % (0-2.0); EOS % 3.1 % (0-4.5); HEMATOCRIT 26.6 % (32.4-45.2); HEMOGLOBIN 8.7 GM/dL (10.7-15.3); MCH 31.3 pg (25.7-33.7); MCHC 32.7 g/dl (32.0-36.0); MEAN CELL VOLUME 95.9 fl (80-96); MEAN PLT VOLUME 9.4 fl (7.5-11.1); MONO % 9.4 % (3.8-10.2); NEUT % 67.2 % (42.8-82.8); PLATELET COUNT 131 K/MM3 (134-434); RBC 2.77 M/mm3 (3.60-5.2); RDW 17.4 % (11.6-15.6); WHITE BLOOD COUNT 6.5 K/mm3 (4.0-10.0)
[2018-02-19 01:12] LABS: INR 1.21 (0.83-1.09); PROTHROMBIN TIME (PATIENT) 14.3 SEC (9.7-13.0)
[2018-02-19 01:18] LABS: ALBUMIN 1.6 g/dl (3.4-5.0); ALK PHOS 295 U/L (45-117); ANION GAP 6 MMOL/L (8-16); BILIRUBIN,TOTAL 0.6 mg/dL (0.2-1); BLOOD UREA NITROGEN 7 mg/dL (7-18); CALCIUM 7.8 mg/dL (8.5-10.1); CHLORIDE 102 mmol/L (98-107); CO2 30 mmol/L (21-32); CREATININE 1.8 mg/dL (0.55-1.3); GLUCOSE,RANDOM 107 mg/dL (74-106); MAGNESIUM 1.8 mg/dL (1.8-2.4); PHOSPHOROUS 2.1 mg/dL (2.5-4.9); POTASSIUM 3.7 mmol/L (3.5-5.1); SGOT/AST 30 U/L (15-37); SGPT/ALT 6 U/L (13-61); SODIUM 138 mmol/L (136-145); TOT PROT 6.2 g/dl (6.4-8.2)
[2018-02-19 01:43] VITALS: BP 147/69; PULSE 58; TEMP 97.9
== END 2018-02-19 01:45 | disposition home or self-care (01) ==
LOC: JER 20:59
DX: S05.12XA Contusion of eyeball and orbital tissues, left eye, initial encounter (principal); S05.11XA Contusion of eyeball and orbital tissues, right eye, initial encounter; X58.XXXA Exposure to other specified factors, initial encounter; Y93.9 Activity, unspecified; Y92.89 Other specified places as the place of occurrence of the external cause; Y99.8 Other external cause status; I12.0 Hypertensive chronic kidney disease with stage 5 chronic kidney disease or end stage renal disease; E11.22 Type 2 diabetes mellitus with diabetic chronic kidney disease; N18.6 End stage renal disease; N17.8 Other acute kidney failure; Z99.2 Dependence on renal dialysis; I48.91 Unspecified atrial fibrillation; E78.00 Pure hypercholesterolemia, unspecified; F03.90 Unspecified dementia, unspecified severity, without behavioral disturbance, psychotic disturbance, mood disturbance, and anxiety; Z86.19 Personal history of other infectious and parasitic diseases; Z87.19 Personal history of other diseases of the digestive system; Z90.5 Acquired absence of kidney
CPT/HCPCS: 36415; 70450-TC; 80053; 82962; 83735; 84100; 85025; 85610; 85730; 99281-25

== ENCOUNTER 2018-02-19 17:05 | Inpatient (IN) | payer OTHER, BC ==
--- NOTE | 2018-02-19 17:41 | PDOC ---
History of Present Illness - History of Present Illness Initial Comments: The patient is a 77F w/ a history of ESRD on iHD who presents for evaluation of chronic wounds. The patient was recently evaluated yesterday at this facility but these concerns were not voiced at that time. Stage IV decub ulcers reportedly brought to patient's family attention this morning. No wound care at home. Denies drainage from wound. Last iHD yesterday Denies fevers/chills, increasing pain at site of wound Denies chest pain, shortness 02/19/18 17:30 <Torsten Sifuentes - Last Filed: 02/19/18 17:54> <Carlita Etienne - Last Filed: 02/19/18 22:48> - General Chief Complaint: Wound Stated Complaint: WOUND Past History - Past Medical History Anemia: No Asthma: No Cancer: No Cardiac Disorders: No CVA: No COPD: No CHF: No Dementia: Yes Diabetes: Yes Dialysis: Yes GI Disorders: No Disorders: No HTN: Yes Hypercholesterolemia: Yes Seizures: No Thyroid Disease: No - Immunization History Immunization Up to Date: Yes - Suicide/Smoking/Psychosocial Hx Smoking History: Unknown if ever smoked Have you smoked in the past 12 months: No Information on smoking cessation initiated: No Hx Alcohol Use: No Drug/Substance Use Hx: No Substance Use Type: None Hx Substance Use Treatment: No <Torsten Sifuentes - Last Filed: 02/19/18 17:54> <Carlita Etienne - Last Filed: 02/19/18 22:48> - Past Medical History Allergies/Adverse Reactions: Allergies Allergy/AdvReac Type Severity Reaction Status Date / Time No Known Allergies Allergy Verified 02/18/18 21:53 Home Medications: Ambulatory Orders Lactobacillus Acidophilus [Bacid -] 1 tab PO DAILY #30 tab 02/11/18 Metoprolol Tartrate [Lopressor -] 25 mg PO BID #60 tablet 02/11/18 Vancomycin Oral Solution 125 mg PO Q6HPO #100 ml 02/11/18 Amlodipine Besylate [Norvasc -] 5 mg PO DAILY #30 tablet 02/16/18 Miscellaneous Medical Supply [Glucometer Device] 1 each SQ ASDIR #1 kit Miscellaneous Medical Supply [Glucometer Test Strips #50] 1 each SQ ASDIR #1 box 02/16/18 Miscellaneous Medical Supply [Lancets] 1 each SQ ASDIR #1 box 02/16/18 Miscellaneous Medical Supply [Outpatient Order] 1 each ASDIR #1 misc *Physical Exam - Vital Signs Last Vital Signs Temp Pulse Resp BP Pulse Ox 97.4 F L 72 18 161/88 97 02/19/18 17:23 02/19/18 17:23 02/19/18 17:23 02/19/18 17:23 02/19/18 17:23 <Torsten Sifuentes - Last Filed: 02/19/18 17:54> - Vital Signs Last Vital Signs Temp Pulse Resp BP Pulse Ox 98.6 F 72 17 164/75 96 02/19/18 21:44 02/19/18 21:44 02/19/18 21:44 02/19/18 21:44 02/19/18 21:44 <Carlita Etienne - Last Filed: 02/19/18 22:48> Medical Decision Making - Medical Decision Making The patient is a 77F with a history of ESRD on iHD (last yesterday) who presents for evaluation for chronic Stage IV sacral wound because the patient's family states that they never received wound care instructions. Social work consulted to establish wound care at home Patient seen by social work today Patient given instructions on wound care Patient with clean Stage IV sacral decubitus ulcer Plan for D/C w/ PCP f/u 02/19/18 17:51 <Torsten Sifuentes - Last Filed: 02/19/18 17:54> *DC/Admit/Observation/Transfer <Torsten Sifuentes - Last Filed: 02/19/18 17:54> - Discharge Dispostion Decision to Admit order: Yes <Carlita Etienne - Last Filed: 02/19/18 22:48> Diagnosis at time of Disposition: Stage 4 skin ulcer of sacral region, ESRD (end stage renal disease) on dialysis Sacral decubitus ulcer Qualifiers: Pressure injury stage: stage 4 Qualified Code(s): L89.154 - Pressure ulcer of sacral region, stage 4 - Discharge Dispostion Condition at time of disposition: Good
--- NOTE | 2018-02-19 17:43 | PDOC ---
Attending Attestation - HPI HPI: 02/19/18 18:49 The patient is a 77 year old female who is frail with a complicated medical history. She was recently seen in our hospital for portacath replacement and ESRD at the end of December. Prior to that [place] She was seen last night in the ED for some bruising on the face. CT scan done negative with unremarkable chemistries. Discharged home. Today, the visiting nurse came and saw stage iv decubitus wound and told the family to bring her to the ED for wound care. The patient has been institutionalized all of last year except for the last 3 days. She was d/c on the 16 of February, came back on and d/c. - Physicial Exam PE: 02/19/18 18:50 Frail cachectic 77 y/o female head no obvious scalp lacs, forehead hematoma over left eye which was there yesterday Periorbital ecchymosis, initially seen yesterday, that is improving neck supple oropharynx no exudates Heart RRR. No gallops, murmurs, or rubs. lungs clear to auscultation bilaterally abd soft,nontender Stage IV decubitus ulcer +ecchymosis on upper left arm. Right portacath. MAEx4 skin very dry, no rashes neuro alert <Iban Aguiar - Last Filed: 02/19/18 18:51> - Resident Resident Name: Torsten Sifuentes - ED Attending Attestation I have performed the following: I have examined & evaluated the patient, The case was reviewed & discussed with the resident, I agree w/resident's findings & plan, Exceptions are as noted - HPI HPI: 02/19/18 17:42 77 yo female - Medical Decision Making 02/19/18 20:33 I tried to resolve this issue when the social media sr strategy manager was available in the hospital. foot worker did come down and gave the family an address of an internal medicine physician in the [place] . However, the family stated that that was not appropriate to them since they live in [place] and this patient needs transportation via ambulance /ambulette to be transported to the doctor's appointments. Today, a visiting nurse came to see the patient for first time and saw her stage IV decubitus wound. Since the family was unaware of this. They were very upset and the visiting nurse told them to return to the hospital to have this situation requires a home care nurse who could do wound care. Explained to the family that there is nothing I could do myself immediately to arrange for visiting wound care nurse since there was no field nurse case manager available at this time. This pt had been hospitalized for 12 months at [facility] prior to her admission on Jan 18 here for surgery for dialysis access. 02/19/18 22:39 pt will be admitted for wound care of stage 4 decubitus ulcer <Carlita Etienne - Last Filed: 02/19/18 22:47> Attestations - Attestations Documentation prepared by Iban Aguiar, acting as durable medical equipment repairer for Carlita Etienne MD. <Iban Aguiar - Last Filed: 02/19/18 18:51>
--- NOTE | 2018-02-19 21:52 | PDOC ---
*Physical Exam - Vital Signs Last Vital Signs Temp Pulse Resp BP Pulse Ox 98.6 F 72 17 164/75 96 02/19/18 21:44 02/19/18 21:44 02/19/18 21:44 02/19/18 21:44 02/19/18 21:44 Medical Decision Making - Medical Decision Making 02/19/18 21:50 Pt signed out by Dr. Sifuentes. Pt was seen by me yesterday. Labs at pt baseline. Pt brought today for sacral ulcer which was documented yesterday, does not look infected today. Pt needs proper wound care. Social work paged however no response. Pt will need to be admitted as short stay obs until social work can arrange wound care. *DC/Admit/Observation/Transfer Diagnosis at time of Disposition: Sacral decubitus ulcer Qualifiers: Pressure injury stage: stage 4 Qualified Code(s): L89.154 - Pressure ulcer of sacral region, stage 4 - Discharge Dispostion Condition at time of disposition: Stable Decision to Admit order Date/Time: Decision to Admit Order Category Date Time Status Decision to Admit to Hospital Routine Admission 02/19/18 21:42 Ordered - Referrals - Patient Instructions Printed Discharge Instructions: DI for Pressure Sores Additional Instructions: You were seen in the Emergency Room today for evaluation of sacral/pressure wounds. Please review the handouts provided at discharge. Please maintain follow up with your primary care provider who will establish wound care follow up if necessary. Return to the Emergency Room if you develop fevers, purulent drainage from the wound, increasing redness around the wound, or any new/concerning symptoms - Post Discharge Activity
--- NOTE | 2018-02-20 01:27 | HP ---
CHIEF COMPLAINT: sacral ulcer PCP: HISTORY OF PRESENT ILLNESS: Patient is a 77 year old female with history of ESRD on HD Mon, Wed, Sun, s/p kidney transplant 10/08, diabetes mellitus, hypertension, Afib not on anticoagulation due to GI bleed on prior admission, recently discharged from [facility] for abdominal wound infection drained by IR, permacath placement 02/08/2018 , and GI bleed with 4 units PRBS, and colonscopy significant for diverticulosis. She presents after a sacral ulcer was noted by her home visiting nurse service and was instructed by the VNS to return to emergency department. Patient is uncertain as to duration, or history of the ulcer, however endorses pain at site of sacral ulcer. Denies fevers, chills, shortness of breath, chest pain, palpitations, abdominal pain, nausea, vomiting, diarrhea , hematochezia, dysuria, hematuria. Her last hemodialysis was 02/18/2018. Upon discussion with her son (who is her power of research attorney), he is requesting all measures possible to be performed, to ensure healing of the wound. Confirms that patient is full code. ER course was notable for: (1) Sacral decubitus ulcer 3cm x 3cm with probing to bone. Purulent discharge. Cultures taken. (2) Permacath blood cultures drawn (3) Recent Travel: denies PAST MEDICAL HISTORY: ESRD, diabetes mellitus, hypertension, Afib, diverticulosis PAST SURGICAL HISTORY: renal transplant 09/2017, former AV fistula placement, permacath placement, Social History: Smoking: denies Alcohol: denies Drugs: denies Family History: unable to obtain from patient Allergies No Known Allergies Allergy (Verified 02/18/18 21:53) HOME MEDICATIONS: Home Medications Medication Instructions Recorded Lactobacillus Acidophilus [Bacid -] 1 tab PO DAILY #30 tab 02/11/18 Metoprolol Tartrate [Lopressor -] 25 mg PO BID #60 tablet 02/11/18 Vancomycin Oral Solution 125 mg PO Q6HPO #100 ml 02/11/18 Amlodipine Besylate [Norvasc -] 5 mg PO DAILY #30 tablet 02/16/18 Miscellaneous Medical Supply 1 each SQ ASDIR #1 kit 02/16/18 [Glucometer Device] Miscellaneous Medical Supply 1 each SQ ASDIR #1 box 02/16/18 [Glucometer Test Strips #50] Miscellaneous Medical Supply 1 each SQ ASDIR #1 box 02/16/18 [Lancets] Miscellaneous Medical Supply 1 each ASDIR #1 misc 02/16/18 [Outpatient Order] REVIEW OF SYSTEMS CONSTITUTIONAL: Admits: generalized weakness, malaise, loss of appetite. Absent: fever, chills, diaphoresis, weight change HEENT: Absent: rhinorrhea, nasal congestion, throat pain, throat swelling, difficulty swallowing, mouth swelling, ear pain, eye pain, visual changes CARDIOVASCULAR: Absent: chest pain, syncope, palpitations, irregular heart rate, lightheadedness , peripheral edema RESPIRATORY: Absent: cough, shortness of breath, dyspnea with exertion, orthopnea, wheezing, stridor, hemoptysis GASTROINTESTINAL: Absent: abdominal pain, abdominal distension, nausea, vomiting, diarrhea, constipation, melena, hematochezia GENITOURINARY: Absent: dysuria, frequency, urgency, hesitancy, hematuria, flank pain, genital pain MUSCULOSKELETAL: Absent: myalgia, arthralgia, joint swelling, back pain, neck pain SKIN: Absent: rash, itching, pallor HEMATOLOGIC/IMMUNOLOGIC: Absent: easy bleeding, easy bruising, lymphadenopathy, frequent infections ENDOCRINE: Absent: unexplained weight gain, unexplained weight loss, heat intolerance, cold intolerance NEUROLOGIC: Absent: headache, focal weakness or paresthesias, dizziness, unsteady gait, seizure, mental status changes, bladder or bowel incontinence PSYCHIATRIC: Absent: anxiety, depression, suicidal or homicidal ideation, hallucinations. PHYSICAL EXAMINATION Vital Signs - 24 hr 02/19/18 02/19/18 02/19/18 17:23 17:50 21:44 Temperature 97.4 F L 100.0 F H 98.6 F Pulse Rate 72 Pulse Rate [ 72 Apical] Respiratory 18 17 Rate Blood Pressure 161/88 Blood Pressure 164/75 [Left Arm] O2 Sat by Pulse 97 96 Oximetry (%) 02/20/18 00:15 Temperature Pulse Rate Pulse Rate [ 72 Apical] Respiratory 17 Rate Blood Pressure Blood Pressure 152/78 [Left Arm] O2 Sat by Pulse 96 Oximetry (%) GENERAL: Awake, alert, and fully oriented, in no acute distress. HEAD: Bruising noted over left eyebrow. EYES: Pupils equal, round and reactive to light, extraocular movements intact b/ l without nystagus. conjunctiva not injected. EARS, NOSE, THROAT: Oropharynx clear without exudates without lesions. Moist mucous membranes. NECK: Normal range of motion, supple without lymphadenopathy. Permacath noted on right side, painful to palpation at insertion site. Dirty dressing noted overlying permacath. LUNGS: Breath sounds equal, clear to auscultation bilaterally. No wheezes, and no crackles. No accessory muscle use. HEART: Regular rate and rhythm, normal S1 and S2 without murmur, rub or gallop. ABDOMEN: Soft, nontender, not distended, normoactive bowel sounds, no guarding, no rebound, no masses. No hepatomegaly or splenomegaly. MUSCULOSKELETAL: Thin, emaciated b/l upper and lower extremities. UPPER EXTREMITIES: 2+ radial pulses b/l, warm, well-perfused. Right arm swollen compared to left. 2+ pitting edema right hand. LOWER EXTREMITIES: 2+ dorsalis pedis pulses b/l, warm, well-perfused. No pitting edema b/l. NEUROLOGICAL: Cranial nerves II-XII intact. Normal speech. Unable to observe gait as patient is bed-bound. PSYCHIATRIC: Cooperative. Appropriate mood and affect upon my encounter. SKIN: medial right lower leg, and left lateral malleoulus healing lesions, left lateral sacral ulcer stage 3 (1cm x 1cm), sacral decubitus ulcer (3cm x 3cm) with probing to bone, and purulent discharge, left forearm eschar 2cm. ASSESSMENT/PLAN: Patient is a 77 year old female with history of ESRD on HD Mon, Wed, Sun, s/p kidney transplant 10/08, diabetes mellitus, hypertension, Afib not on anticoagulation due to GI bleed on prior admission, recently discharged from [facility], presents for complaint of sacral ulcer, requiring wound care. Stage IV sacral decubitus ulcer -3cm X 3cm, purulent discharge, probing to bone -Wound care consult (Dr. Neri) -F/U wound culture -F/U blood cultures ESRD on hemodialysis -Nephrology consult (Dr. Winters) -F/U permacath drawn blood cultures C. difficile infection -Continue Vancomycin 125mg PO Q12H -Contact precautions Atrial fibrillation -Continue Metoprolol 25mg Po daily -Currently not on anticoagulation due to GI bleeding on prior admission. -Consider reinstating anticoagulation if deemed appropriate. Hypertension -Continue Norvasc 5mg PO daily Malnutrition -F/U sales assistant entertainment and media consult FEN No IV fluids Follow CMP Renal, sodium controlled, diabetic diet. Prophylaxis -SCDs, TEDs b/l lower extremities Disposition -Observation in medical surgical floor. Visit type - Emergency Visit Emergency Visit: Yes ED Registration Date: 02/19/18 Care time: The patient presented to the Emergency Department on the above date and was hospitalized for further evaluation of their emergent condition. - New Patient This patient is new to me today: Yes Date on this admission: 02/20/18 - Critical Care Critical Care patient: No
--- NOTE | 2018-02-20 01:30 | PN ---
Teaching Attending Note Name of Resident: Elizabeth Mcintosh ATTENDING PHYSICIAN STATEMENT I saw and evaluated the patient. I reviewed the resident's note and discussed the case with the resident. I agree with the resident's findings and plan as documented. SUBJECTIVE: Seen and examined; further history info per resident note. In summary, this is a patient who is presenting to the ER for wound care for a sacral decubitus ulcer. She has a complicated PMH significant for ESRD on HD (MWF via permacath with h/o failed renal transplant), DM, HTN, Anemia, Cdiff (on current PO Vanco taper), Afib (was on AC, appears to have been held on DC), OTILIO stenosis with diverticulosis (not actively bleeding on recent EGD/c-scope by Dr. Torres), malnutrition, failure to thrive, possible dementia vs depression. She was seen here yesterday in the ER for bruising after HD and was discharged home. She was discharged from a prolonged hospitalization on 02/16 from the medicine service where she was seen for a variety of issues including GIB, sacral wound with WC done inpatient, ESRD on HD requiring permacath placement by vascular, and C Difficile colitis which she is on taper for and saw ID for. She was seen by psych for her depression vs dementia as well during that visit. Family today cannot provide wound care; unfortunately they were not available when I came down but the resident was able to speak to her. VNA service aparently made the call that the wound needed evaluated. She gets nursing services at home. She had no acute complaints today. Evaluation of the permacath site showed a dressing with soilage on it that was not sticking to the site; the line was touching the un-stuck soiled site and with movement the exposed area was going in and out of the patient. Dressing replaced and culturing off the line as low grade fever to 100 in ER. Will admit, follow up cultures, consult wound care and nutrition, and elucidate further information regarding her AC. 10 sys ROS done and negative aside from HPI Lives at home with VNA, may be depressed vs. demented, bedbound and cannot walk , no EtOH or tobacco FH asked and noncontributory PMH/PSH per chart and reviewed above OBJECTIVE: VSS, labs and imaging reviewed. Low grade febrile to 100 NAD, resting in bed Stage IV decub on sacrum probing to the bone; several other small ulcers that are better healed (dime sized L-iliac, L-ankle). Some drainage so sent for cx. Permacath inserted and sutured in place R-SC but dressing peeling off and soiled with line sliding in and out RRR s1/2 no mgr NT ND +BS Blunted affect with what appears to be her baseline mood and appropriate behavior CN2-12 grossly intact, no FNDs ASSESSMENT AND PLAN: Mrs. De La Vega is a 77 y/o HF with a complicated PMH sent back to the ER for the second time in 2 days after DC from a prolonged hospitalization; reason for presentation was VNA concern for sacral decubitus ulcer and need for more intensive wound care. She had a low grade fever with no s/s sepsis. 1) Sacral Decubitus, Stage IV -Doesn't appear acutely infected; obtaining culture to see whats growing. High risk of contamination with enteral bacteria. -Consulting Dr. Neri in wound care for further recommendation -Discuss with family their capabilities with the visiting home health services; she may need placed. Consulting PT and OT to help mobilize as best as we can. Due to her bedridden status she is requiring help with ADLs and IADLs. 2) Low grade fever -Can be reactive; monitor and check blood cultures. Cultured off permacath to ensure no line infection given the appearance of the dressing. Requesting dressing change -Continue PO Vancomycin taper for the Cdiff infection as prescribed by ID -No new abx; monitor CBC and clinically. 3) C Difficile Colitis -Continue vancomycin taper per ID 4) HTN -Continue home meds 5) ESRD on HD -Consulting nephrology for HD in AM. -Monitor BMP 6) Anemia -Trend CBC; nonacute 7) History of GIB -Elucidate the status of AC use; no active bleeding on scope but was discharged off AC per DC records; will speak with the treatment team and see what the plan was regardign this. -No s/s acute bleed 8) Atrial Fibrillation -Elevated CV so on AC prior but now not on it; elucidate as stated above and continue other home meds. Rate is wnl 9) Malnutrition/Failure to thrive -Check prealbumin and consult nutrition 10) Failed renal xp -Off all immunosuppression Full Code
[2018-02-20 08:09] LABS: HEMATOCRIT 25.1 % (32.4-45.2); HEMOGLOBIN 8.1 GM/dL (10.7-15.3); MCH 30.9 pg (25.7-33.7); MCHC 32.4 g/dl (32.0-36.0); MEAN CELL VOLUME 95.5 fl (80-96); MEAN PLT VOLUME 8.6 fl (7.5-11.1); PLATELET COUNT 151 K/MM3 (134-434); RBC 2.63 M/mm3 (3.60-5.2); RDW 17.1 % (11.6-15.6); WHITE BLOOD COUNT 5.5 K/mm3 (4.0-10.0)
[2018-02-20 08:30] LABS: ALBUMIN 1.7 g/dl (3.4-5.0); ALK PHOS 306 U/L (45-117); ANION GAP 6 MMOL/L (8-16); BILIRUBIN,TOTAL 0.7 mg/dL (0.2-1); BLOOD UREA NITROGEN 14 mg/dL (7-18); CALCIUM 7.9 mg/dL (8.5-10.1); CHLORIDE 100 mmol/L (98-107); CO2 32 mmol/L (21-32); GLUCOSE,RANDOM 64 mg/dL (74-106); MAGNESIUM 2.1 mg/dL (1.8-2.4); PHOSPHOROUS 3.3 mg/dL (2.5-4.9); POTASSIUM 3.9 mmol/L (3.5-5.1); SGOT/AST 26 U/L (15-37); SGPT/ALT 8 U/L (13-61); SODIUM 138 mmol/L (136-145); TOT PROT 6.5 g/dl (6.4-8.2)
--- NOTE | 2018-02-20 09:24 | CONSULT ---
- Consultation REQUESTING PROVIDER: CONSULT REQUEST: We have been asked to surgically evaluate this patient for Sacral decubitus ulcer PCP:Rachael Nieves HISTORY OF PRESENT ILLNESS: 77yo female well known by the vascular surgery team with history of ESRD (HD Sun, Sun, Sun) s/p kidney transplant 10/08, diabetes mellitus, hypertension, Afib not on anticoagulation due to GI bleed on prior admission, recently discharged from [facility] for abdominal wound infection drained by IR, permacath placement 02/08/2018, and GI bleed with 4 units PRBS, and colonscopy significant for diverticulosis. She presents after a sacral ulcer was noted by her home visiting nurse service and was instructed by the VNS to return to emergency department. Patient is uncertain as to duration, or history of the ulcer, however endorses pain at site of sacral ulcer. Patient noted to have significant bruising over the right side of her face, when asked what happened she states she doesn't know. Patient is a poor historian. Her last hemodialysis was 02/18/2018. Recent Travel: denies PMHx: ESRD, diabetes mellitus, hypertension, Afib, diverticulosis PSHx: renal transplant 09/2017, former AV fistula placement, permacath placement, Home Medications Medication Instructions Recorded Lactobacillus Acidophilus [Bacid -] 1 tab PO DAILY #30 tab 02/11/18 Metoprolol Tartrate [Lopressor -] 25 mg PO BID #60 tablet 02/11/18 Vancomycin Oral Solution 125 mg PO Q6HPO #100 ml 02/11/18 Amlodipine Besylate [Norvasc -] 5 mg PO DAILY #30 tablet 02/16/18 Miscellaneous Medical Supply 1 each SQ ASDIR #1 kit 02/16/18 [Glucometer Device] Miscellaneous Medical Supply 1 each SQ ASDIR #1 box 02/16/18 [Glucometer Test Strips #50] Miscellaneous Medical Supply 1 each SQ ASDIR #1 box 02/16/18 [Lancets] Miscellaneous Medical Supply 1 each MC ASDIR #1 misc 02/16/18 [Outpatient Order] Allergies Allergy/AdvReac Type Severity Reaction Status Date / Time No Known Allergies Allergy Verified 02/18/18 21:53 REVIEW OF SYSTEMS: unable to obtain PHYSICAL EXAM: GENERAL: Awake, alert, NAD. HEAD: diffuse bruising over right side of face and around orbit EYES: sclera anicteric, LUNGS: Unlabored resp on RA, No accessory muscle use. Stage 4 sacral decubitus ulcer with fibrinous exudate over bony base, 4.5x3.5cm no tunneling or evidence of purulant d/c, no significant foul smell, rolled boarders, TTP throughout. Left hip small healing ulcer over greater trochanter with chronic changes throughout, currently stable with no d/c or sign of infection. chronic skin changes and stage 1 pressure ulcer over left greater trochanter, stable Right heel with healing ulcer,scabbed over surrounded by Deep tissue injury TTP throughout- stable. left lateral malleolus with chronic skin changes, stable with no brakdown. LOWER EXTREMITIES: warm to touch, No peripheral edema. NEUROLOGICAL: gait not observed. PSYCH: Cooperative. Good eye contact. SKIN: Warm, dry, normal turgor, Vital Signs Temperature 97.6 F 02/20/18 08:58 Pulse Rate 71 02/20/18 08:58 Respiratory Rate 20 02/20/18 08:58 Blood Pressure 165/79 02/20/18 08:58 O2 Sat by Pulse Oximetry (%) 96 02/20/18 00:15 Lab Results WBC 5.5 K/mm3 (4.0-10.0) 02/20/18 07:30 RBC 2.63 M/mm3 (3.60-5.2) L 02/20/18 07:30 Hgb 8.1 GM/dL (10.7-15.3) L 02/20/18 07:30 Hct 25.1 % (32.4-45.2) L 02/20/18 07:30 MCV 95.5 fl (80-96) 02/20/18 07:30 MCHC 32.4 g/dl (32.0-36.0) 02/20/18 07:30 RDW 17.1 % (11.6-15.6) H 02/20/18 07:30 Plt Count 151 K/MM3 (134-434) 02/20/18 07:30 Sodium 138 mmol/L (136-145) 02/20/18 07:30 Potassium 3.9 mmol/L (3.5-5.1) 02/20/18 07:30 Chloride 100 mmol/L (98-107) 02/20/18 07:30 Carbon Dioxide 32 mmol/L (21-32) 02/20/18 07:30 Anion Gap 6 MMOL/L (8-16) L 02/20/18 07:30 BUN 14 mg/dL (7-18) 02/20/18 07:30 Creatinine 3.0 mg/dL (0.55-1.3) H 02/20/18 07:30 Random Glucose 64 mg/dL (74-106) L 02/20/18 07:30 Calcium 7.9 mg/dL (8.5-10.1) L 02/20/18 07:30 Problem List - Problems (1) Sacral decubitus ulcer Assessment/Plan: 77yo with stae 4 sacral decubitus ulcer and multiple pressure ulcers of various stages. Currently stable with no need for surgical intervention. Will proceed with conservative management. 1) Santyl to sacrum daily, 2) Alleven over sacrum, b/l hips (over greater troch) 3) Alleven over b/l heels 4) Offload pressure areas with frequent repositioning. 5) Re-consult vascular surgery PRN Evaluation and plan discussed with Dr Neri. Code(s): L89.159 - PRESSURE ULCER OF SACRAL REGION, UNSPECIFIED STAGE Qualifiers: Pressure injury stage: stage 4 Qualified Code(s): L89.154 - Pressure ulcer of sacral region, stage 4 (2) Stage 4 skin ulcer of sacral region Code(s): L98.429 - NON-PRESSURE CHRONIC ULCER OF BACK WITH UNSPECIFIED SEVERITY
[2018-02-20] MEDS: METOPROLOL TARTRATE 25 MG TABLET (FP) PO SCH ×2 (09:55→23:22)
[2018-02-20] MEDS: LACTOBACILLUS ACIDOPHILUS 1 TABLET PO SCH (09:55)
[2018-02-20] MEDS: VANCOMYCIN 250 MG/5 ML ORAL SOLUTION PO SCH ×2 (09:59→23:22)
[2018-02-20] MEDS ORDERED: amLODIPine BESYLATE 5 MG TABLET (FP) PO SCH (10:00)
--- NOTE | 2018-02-20 11:02 | PN ---
Physical Exam: SUBJECTIVE: Patient seen and examined at bedside. Endorses pain at permacath site. Denies chest pain, sob, fever, or chills. OBJECTIVE: Vital Signs Period Temp Pulse Resp BP Sys/Franco Pulse Ox Last 24 Hr 97.4 F-100.0 F 68-72 17-20 152-165/69-88 96-97 GENERAL: AAOx3, NAD, cachetic HEAD: B/L brusing around orbital areas 2/2 mechanical fall at dialysis 2 days ago. LUNGS: CTA B/L, No wheezing, rales, or rhonchi HEART: RRR No MRG S1S2 ABDOMEN: NTND EXTREMITIES: Muscle atrophy, wasting SKIN: sacral decubitus ulcer (3cm x 3cm) with probing to bone, and purulent discharge. Healing wound left heel. Left lateral sacral ulcer stage 3 (1cm x 1cm ). Laboratory Results - last 24 hr 02/20/18 02/20/18 02/20/18 06:30 07:30 07:30 WBC 5.5 RBC 2.63 L Hgb 8.1 L Hct 25.1 L MCV 95.5 MCH 30.9 MCHC 32.4 RDW 17.1 H Plt Count 151 MPV 8.6 Sodium 138 Potassium 3.9 Chloride 100 Carbon Dioxide 32 Anion Gap 6 L BUN 14 Creatinine 3.0 H Creat Clearance w eGFR 15.09 POC Glucometer 77 Random Glucose 64 L Calcium 7.9 L Phosphorus 3.3 Magnesium 2.1 Total Bilirubin 0.7 AST 26 ALT 8 L Alkaline Phosphatase 306 H Total Protein 6.5 Albumin 1.7 L Active Medications Generic Name Dose Route Start Last Admin Trade Name Berta PRN Reason Stop Dose Admin Amlodipine Besylate 5 mg 02/20/18 10:00 02/20/18 09:55 Norvasc - PO 5 mg DAILY HARPAL Administration Collagenase 1 applic 02/20/18 10:00 Santyl - TP DAILY HARPAL Protocol Insulin Aspart 1 vial 02/20/18 07:00 Novolog Vial Sliding Scale - SQ ACHS HARPAL Protocol Lactobacillus Acidophilus 1 tab 02/20/18 10:00 02/20/18 09:55 Bacid - PO 1 tab DAILY HARPAL Administration Metoprolol Tartrate 25 mg 02/20/18 10:00 02/20/18 09:55 Lopressor - PO 25 mg BID HARPAL Administration Vancomycin HCl 125 mg 02/20/18 10:00 10/31/18 09:59 Vancomycin Oral Solution PO 125 mg BID HARPAL Administration ASSESSMENT/PLAN: gordo is a 77 year old female with history of ESRD on HD Mon, Wed, Sun, s/p kidney transplant 10/08, diabetes mellitus, hypertension, Afib not on anticoagulation due to GI bleed on prior admission, recently discharged from [facility], presents for complaint of sacral ulcer, requiring wound care. Stage IV sacral decubitus ulcer -3cm X 3cm, purulent discharge, probing to bone -Surgery--> Santyl to sacrum daily, Alleven over sacrum, Alleven over b/l heels , Offload pressure areas with frequent repositioning, -F/U wound culture -F/U blood cultures - Will obtain MRI of Lumbar spine and Pelvis to evaluate for osteomyelitis. ESRD on hemodialysis -Nephrology-Dr Ellis on board. HD Tomorrow in am Nov 1 -F/U permacath drawn blood cultures C. Difficile infection -Continue Vancomycin 125mg PO Q12H -Contact precautions Atrial fibrillation -Continue Metoprolol 25mg PO daily -Currently not on anticoagulation due to GI bleeding on prior admission. -Consider reinstating anticoagulation if deemed appropriate. Hypertension -Continue [id number] mg PO daily Malnutrition -F/U impregnating helper consult -Spoke with RD today, will add prosource as pt malnourished FEN No IV fluids Follow CMP Renal, sodium controlled, diabetic diet. Prophylaxis -SCDs, TEDs b/l lower extremities Disposition -For discharge tomorrow Visit type - Emergency Visit Emergency Visit: Yes ED Registration Date: 02/19/18 Care time: The patient presented to the Emergency Department on the above date and was hospitalized for further evaluation of their emergent condition. - New Patient This patient is new to me today: Yes Date on this admission: 02/20/18 - Critical Care Critical Care patient: No - Discharge Referral Referred to [facility] Med P.C.: No
[2018-02-20] MEDS: INSULIN SLIDING SCALE (NOVOLOG) 1 VIAL SQ SCH ×4 (11:29→23:28)
--- NOTE | 2018-02-20 12:04 | EKG ---
Test Reason : Blood Pressure : / mmHG Vent. Rate : 070 BPM Atrial Rate : 070 BPM P-R Int : 210 ms QRS Dur : 104 ms QT Int : 464 ms P-R-T Axes : 066 040 093 degrees QTc Int : 501 ms SINUS RHYTHM WITH 1ST DEGREE A-V BLOCK ANTEROSEPTAL INFARCT , AGE UNDETERMINED ABNORMAL ECG WHEN COMPARED WITH ECG OF 30-JAN-2018 13:26, ANTEROSEPTAL INFARCT IS NOW PRESENT Confirmed by LOUIS JOSÉ, ADELAIDE ([id number]) on 02/20/2018 12:04:26 PM Referred By: Confirmed By:ADELAIDE MYERS MD
[2018-02-20] MEDS: COLLAGENASE CLOSTRIDIUM HIST. 30 GRAMS TUBE TP SCH (12:48)
--- NOTE | 2018-02-20 13:04 | PN ---
Teaching Attending Note Name of Resident: Fernando Ricci ATTENDING PHYSICIAN STATEMENT I saw and evaluated the patient. I reviewed the resident's note and discussed the case with the resident. I agree with the resident's findings and plan as documented. SUBJECTIVE: OBJECTIVE: Last Vital Signs Temp Pulse Resp BP Pulse Ox 97.6 F 71 20 165/79 96 02/20/18 08:58 02/20/18 08:58 02/20/18 08:58 02/20/18 08:58 02/20/18 00:15 General NAD, bitemporal wasting, prominent clavicles, thin extremities, brusing to R temporal region CV S1 S2 + Lungs CTA B/L No wheezing/rales/rhonchi Sacrum 4 cm sacral ulcer stage 4, +slough, good margins, no active drainage. no exposed bone. bone is palpated with no subcutaneous fat present ASSESSMENT AND PLAN: 77 yo F with reportedly prolonged stay at [facility] for PNA, cdiff (requiring fecal transplant), 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 Sacral wound- does not appear infected. ESR/CRP is elevated which could also be in setting of recent illness and infection. bone is palpated but believe this is more on the basis of lack of subcutaneous fat and bone is just palpated. however will need to verify that there is no signs of OM. will obtain MRI of the sacrum to evaluate. wound care instructions per vasc surgery 2. ESRD on HD- HD per normal schedule 3. Anemia- Hgb is at baseline. no signs of bleeding. no indication for transfusion. 4. Cdiff- contact precautions. on tapering dose of vanco. as per last discharge. no active diarrhea noted 5. R facial brusing- witnessed fall at HD on 02/18. imaging is negative 6. Severe malnutition- evident by body habitus and BMI. dietary supplements per watch dial maker 7. HTN- improved however above goal. increase norvasc to 10mg 8. DVT ppx- EAM/SCD
[2018-02-20] MEDS ORDERED: ACETAMINOPHEN 500 MG TABLET (FP) PO ONE (16:25)
[2018-02-20] MEDS: AMINO ACIDS/PROTEIN HYDROLYS 30 ML LIQUID.PKT PO SCH (16:41)
[2018-02-20] MEDS ORDERED: SODIUM CHLORIDE 250 ML IV PRN (17:20)
--- NOTE | 2018-02-20 17:30 | CON.NEP ---
Consult Consult Specialty:: Nephrology Referred by:: sajan Reason for Consultation:: esrd maintenance dialysis - History of Present Illness Chief Complaint: hemodialysis History of Present Illness: esrd admitted for eval of sacral ulcer to r/o Osteomyelitis she has loose bm from cdiff she was recently in the hospital her los is expected to be short targeted at eval of OM she has been stable on dialysis regimen - History Source History Provided By: Patient, Medical Record - Past Medical History Cardio/Vascular: Yes: HTN, Hyperlipdemia Renal/: Yes: Renal Failure, Renal Inusuff, Hemodialysis ...: No Infectious Disease: Yes: C-Diff Endocrine: Yes: Diabetes Mellitus - Past Surgical History Past Surgical History: Yes: Kidney Transplant - Alcohol/Substance Use Hx Alcohol Use: No - Smoking History Smoking history: Unknown if ever smoked Have you smoked in the past 12 months: No - Social History Usual Living Arrangement: With Child ADL: Family Assistance Home Medications - Allergies Allergies/Adverse Reactions: Allergies Allergy/AdvReac Type Severity Reaction Status Date / Time No Known Allergies Allergy Verified 02/18/18 21:53 - Home Medications Home Medications: Ambulatory Orders Lactobacillus Acidophilus [Bacid -] 1 tab PO DAILY #30 tab 02/11/18 Metoprolol Tartrate [Lopressor -] 25 mg PO BID #60 tablet 02/11/18 Vancomycin Oral Solution 125 mg PO Q6HPO #100 ml 02/11/18 Amlodipine Besylate [Norvasc -] 5 mg PO DAILY #30 tablet 02/16/18 Miscellaneous Medical Supply [Glucometer Device] 1 each SQ ASDIR #1 kit Miscellaneous Medical Supply [Glucometer Test Strips #50] 1 each SQ ASDIR #1 box 02/16/18 Miscellaneous Medical Supply [Lancets] 1 each SQ ASDIR #1 box 02/16/18 Miscellaneous Medical Supply [Outpatient Order] 1 each ASDIR #1 misc Nephrology Consult - Height Height: 5 ft 4 in - Weight Weight: 112 lb - BMI Body Mass Index (BMI): 19.2 - Lab Results CBC,BMP: CBC, BMP 02/20/18 07:30 02/20/18 07:30 Anion Gap: Anion Gap Anion Gap 6 MMOL/L (8-16) L 02/20/18 07:30 - Physical Examination Vital Signs: Vital Signs Temperature 97.3 F L 02/20/18 14:00 Pulse Rate 69 02/20/18 14:00 Respiratory Rate 20 02/20/18 16:00 Blood Pressure 136/70 02/20/18 14:00 O2 Sat by Pulse Oximetry (%) 95 02/20/18 16:00 Constitutional: Yes: Well Nourished Neck: Yes: WNL, Supple, Trachea Midline Cardiovascular: Yes: WNL, Regular Rate and Rhythm Respiratory: Yes: WNL, Regular, CTA Bilaterally Gastrointestinal: Yes: WNL, Normal Bowel Sounds Access for Hemodialysis: Permacath Musculoskeletal: Yes: WNL Extremities: Yes: WNL Edema: No Peripheral Pulses WNL: Yes Wound/Incision: Yes: Other Neurological: Yes: Alert Psychiatric: Yes: WNL Assessment/Plan esrd on hd via pc c diff no evidence of fluid overload or deficit sacral ulcer infected recent pna h/o fecal transplant h/o failed kidney transplant september 2017 s/p discontinuation of immunosuppressant meds s/p gi bleed/diverticular disease anemia malnutrition s/p r facial bruise plan- hd tomorrow in am prior to discharge if she is being discharged
[2018-02-20] MEDS ORDERED: INSULIN (NOVOLOG) ASPART 100 UNITS/ML 10ML VIAL ONE (21:00)
[2018-02-20] MEDS: ACETAMINOPHEN 325 MG TABLET (FP) PO PRN (23:21)
[2018-02-21] MEDS: INSULIN SLIDING SCALE (NOVOLOG) 1 VIAL SQ SCH ×4 (06:10→22:45)
[2018-02-21] MEDS: AMINO ACIDS/PROTEIN HYDROLYS 30 ML LIQUID.PKT PO SCH ×2 (09:00→17:38)
[2018-02-21 09:33] LABS: HEMATOCRIT 23.8 % (32.4-45.2); HEMOGLOBIN 7.7 GM/dL (10.7-15.3); MCH 30.7 pg (25.7-33.7); MCHC 32.2 g/dl (32.0-36.0); MEAN CELL VOLUME 95.4 fl (80-96); MEAN PLT VOLUME 9.1 fl (7.5-11.1); PLATELET COUNT 157 K/MM3 (134-434); RBC 2.49 M/mm3 (3.60-5.2); RDW 17.3 % (11.6-15.6); WHITE BLOOD COUNT 5.2 K/mm3 (4.0-10.0)
[2018-02-21 09:58] LABS: ALBUMIN 1.5 g/dl (3.4-5.0); ALK PHOS 288 U/L (45-117); ANION GAP 8 MMOL/L (8-16); BILIRUBIN,TOTAL 0.6 mg/dL (0.2-1); BLOOD UREA NITROGEN 24 mg/dL (7-18); CALCIUM 7.8 mg/dL (8.5-10.1); CHLORIDE 100 mmol/L (98-107); CO2 30 mmol/L (21-32); CREATININE 3.5 mg/dL (0.55-1.3); GLUCOSE,RANDOM 79 mg/dL (74-106); PHOSPHOROUS 3.7 mg/dL (2.5-4.9); POTASSIUM 4.1 mmol/L (3.5-5.1); SGOT/AST 26 U/L (15-37); SGPT/ALT 9 U/L (13-61); SODIUM 138 mmol/L (136-145); TOT PROT 6.1 g/dl (6.4-8.2)
[2018-02-21] MEDS: LACTOBACILLUS ACIDOPHILUS 1 TABLET PO SCH (11:00)
[2018-02-21] MEDS: ACETAMINOPHEN 325 MG TABLET (FP) PO PRN (11:00)
[2018-02-21] MEDS: METOPROLOL TARTRATE 25 MG TABLET (FP) PO SCH ×2 (11:00→22:44)
[2018-02-21] MEDS ORDERED: EPOETIN ALFA 10,000 UNIT/1 ML VIAL IVPUSH ONE (11:00)
[2018-02-21] MEDS: VANCOMYCIN 250 MG/5 ML ORAL SOLUTION PO SCH ×2 (11:00→22:45)
[2018-02-21] MEDS: amLODIPine BESYLATE 10 MG TABLET (FP) PO SCH (11:00)
[2018-02-21 13:05] LABS: CREATININE 0.9 mg/dL (0.55-1.3)
--- NOTE | 2018-02-21 13:19 | PN ---
Progress Note, Physician History of Present Illness: Pt seen and examined at bedside. She is awake and tolerated HD. She has discomfort from her sacral wound. - Current Medication List Current Medications: Active Medications Acetaminophen (Tylenol -) 650 mg PO Q6H PRN PRN Reason: FEVER Last Admin: 02/20/18 23:21 Dose: 650 mg Amino Acids (Prosource No Carb Liquid Pkt) 30 ml PO BID@0800,1730 [facility] Last Admin: 02/20/18 16:41 Dose: 30 ml Amlodipine Besylate (Norvasc -) 10 mg PO DAILY [facility] Collagenase (Santyl -) 1 applic TP DAILY [facility]; Protocol Last Admin: 02/20/18 12:48 Dose: 1 applic Sodium Chloride (Normal Saline -) 250 mls @ 3,000 mls/hr IV PRN PRN PRN Reason: Hypotension during Dialysis Stop: 02/21/18 17:21 Insulin Aspart (Novolog Vial Sliding Scale -) 1 vial SQ ACHS [facility]; Protocol Last Admin: 02/21/18 06:10 Dose: Not Given Lactobacillus Acidophilus (Bacid -) 1 tab PO DAILY [facility] Last Admin: 02/20/18 09:55 Dose: 1 tab Metoprolol Tartrate (Lopressor -) 25 mg PO BID [facility] Last Admin: 02/20/18 23:22 Dose: 25 mg Vancomycin HCl (Vancomycin Oral Solution) 125 mg PO BID [facility] Last Admin: 02/20/18 23:22 Dose: 125 mg - Objective Vital Signs: Vital Signs Temperature 98.2 F 02/21/18 08:45 Pulse Rate 72 02/21/18 12:31 Respiratory Rate 18 02/21/18 12:31 Blood Pressure 144/62 02/21/18 12:31 O2 Sat by Pulse Oximetry (%) 95 02/20/18 22:00 Constitutional: Yes: Calm HENT: Yes: Other (facial bruising) Cardiovascular: Yes: S1, S2 Respiratory: Yes: CTA Bilaterally Gastrointestinal: Yes: Soft Genitourinary: Yes: WNL Musculoskeletal: Yes: Muscle Weakness Edema: No Wound/Incision: Yes: Dressing Dry and Intact Neurological: Yes: Oriented Labs: CBC, BMP 02/21/18 08:45 02/21/18 12:00 Problem List - Problems (1) ESRD (end stage renal disease) on dialysis Code(s): N18.6 - END STAGE RENAL DISEASE; Z99.2 - DEPENDENCE ON RENAL DIALYSIS (2) Sacral decubitus ulcer Code(s): L89.159 - PRESSURE ULCER OF SACRAL REGION, UNSPECIFIED STAGE Qualifiers: Pressure injury stage: stage 4 Qualified Code(s): L89.154 - Pressure ulcer of sacral region, stage 4 Assessment/Plan Current Medications Generic Name Dose Route Start Last Admin Trade Name Berta PRN Reason Stop Dose Admin Acetaminophen 650 mg 02/20/18 22:37 02/20/18 23:21 Tylenol - PO 650 mg Q6H PRN Administration FEVER Amino Acids 30 ml 02/20/18 17:30 02/20/18 16:41 Prosource No Carb Liquid Pkt PO 30 ml BID@0800,1730 [facility] Administration Amlodipine Besylate 10 mg 02/20/18 13:03 Norvasc - PO DAILY [facility] Collagenase 1 applic 02/20/18 10:00 02/20/18 12:48 Santyl - TP 1 applic DAILY [facility] Administration Protocol Sodium Chloride 250 mls @ 3,000 mls/hr 02/20/18 17:20 Normal Saline - IV 02/21/18 17:21 PRN PRN Hypotension during Dialysis Insulin Aspart 1 vial 02/20/18 07:00 02/21/18 06:10 Novolog Vial Sliding Scale - SQ Not Given ACHS [facility]ARPAL Protocol Lactobacillus Acidophilus 1 tab 02/20/18 10:00 02/20/18 09:55 Bacid - PO 1 tab DAILY [facility] Administration Metoprolol Tartrate 25 mg 02/20/18 10:00 02/20/18 23:22 Lopressor - PO 25 mg BID HARPAL Administration Vancomycin HCl 125 mg 02/20/18 10:00 02/20/18 23:22 Vancomycin Oral Solution PO 125 mg BID HARPAL Administration Impression 1. ESRD 2. failed kidney transplant 3. hx DM 4. Hx HTN 5. sacral ulcer 6. post op infection 7. c.diff 8. a-fib 9. failure to thrive 10.malnutrition 11. anemia 12. GI bleed Plan - HD today - cont wound care - epogen for anemia - bp is table - cont bp meds - discussed with family - will follow Dr Winters
--- NOTE | 2018-02-21 13:23 | PN ---
Teaching Attending Note Name of Resident: Fernando Ricci ATTENDING PHYSICIAN STATEMENT I saw and evaluated the patient. I reviewed the resident's note and discussed the case with the resident. I agree with the resident's findings and plan as documented. SUBJECTIVE:c/o pain at sacral wound. denies Cp, SOB, fever, chills, N/V/C/D OBJECTIVE: Last Vital Signs Temp Pulse Resp BP Pulse Ox 98.2 F 72 18 144/62 95 02/21/18 08:45 02/21/18 12:31 02/21/18 12:31 02/21/18 12:31 02/20/18 22:00 General NAD, bitemporal wasting, prominent clavicles, thin extremities, brusing to R temporal region CV S1 S2 + Lungs CTA B/L No wheezing/rales/rhonchi Sacrum 4 cm sacral ulcer stage 4, +slough, good margins, no active drainage. no exposed bone. bone is palpated with no subcutaneous fat present ASSESSMENT AND PLAN: 77 yo F with reportedly prolonged stay at [facility] for PNA, cdiff (requiring fecal transplant), 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 Sacral wound- will need to r/o OM in setting of elevated ESR/CRP. MRI completed this Am and awaiting results. wound care instructions per vasc surgery 2. ESRD on HD- HD per normal schedule. was unable to complete HD yesterday. plan for today. 3. Anemia- slight downtrend in Hgb. no signs of active bleeding. no indication for transfusion. epogen weekly 4. Cdiff- contact precautions. on tapering dose of vanco. as per last discharge. no active diarrhea noted 5. R facial brusing- witnessed fall at HD on 02/18. imaging is negative 6. Severe malnutrition- evident by body habitus and BMI. dietary supplements per sample cutter 7. HTN- improved. cont norvasc 8. DVT ppx- EAM/SCD 9. spoke with HCP, dinora. Informed him awaiting MRI results for next step. all questions answered.
[2018-02-21] MEDS: COLLAGENASE CLOSTRIDIUM HIST. 30 GRAMS TUBE TP SCH (15:20)
--- NOTE | 2018-02-21 15:51 | PN ---
Physical Exam: SUBJECTIVE: Patient seen and examined at bedside. Endorses back pain. Went for MRI Lumbar spine and pelvis this afternoon. For 3-phase bone scan tomorrow. OBJECTIVE: Vital Signs Period Temp Pulse Resp BP Sys/Franco Pulse Ox Last 24 Hr 97.1 F-98.3 F 60-90 18-20 128-156/61-84 95-95 GENERAL: Awake Alert, cachexia, Bruising b/l periorbital areas. R permacath in place. HEAD: Normal with no signs of trauma. EYES: EOMI, PERRLA LUNGS: CTA B/L, no wheezing rhonchi or rales appreciated HEART: RRR No MRG S1S2 ABDOMEN: NDNT EXTREMITIES: Muscle atrophy, wasting PSYCH: Normal mood, normal affect. SKIN: sacral decubitus ulcer (3cm x 3cm) with probing to bone, and purulent discharge. Healing wound left heel. Left lateral sacral ulcer stage 3 (1cm x 1cm ) Laboratory Results - last 24 hr 02/20/18 02/20/18 02/21/18 16:36 23:26 08:45 WBC 5.2 RBC 2.49 L Hgb 7.7 L Hct 23.8 L MCV 95.4 MCH 30.7 MCHC 32.2 RDW 17.3 H Plt Count 157 MPV 9.1 Sodium Potassium Chloride Carbon Dioxide Anion Gap BUN Creatinine Creat Clearance w eGFR POC Glucometer 117 118 Random Glucose Calcium Phosphorus Total Bilirubin AST ALT Alkaline Phosphatase Total Protein Albumin Blood Type Antibody Screen 02/21/18 02/21/18 02/21/18 08:45 10:15 12:00 WBC RBC Hgb Hct MCV MCH MCHC RDW Plt Count MPV Sodium 138 Potassium 4.1 Chloride 100 Carbon Dioxide 30 Anion Gap 8 BUN 24 H 6 L Creatinine 3.5 H 0.9 Creat Clearance w eGFR 12.63 POC Glucometer Random Glucose 79 Calcium 7.8 L Phosphorus 3.7 Total Bilirubin 0.6 AST 26 ALT 9 L Alkaline Phosphatase 288 H Total Protein 6.1 L Albumin 1.5 L Blood Type O POSITIVE Antibody Screen Positive H Active Medications Generic Name Dose Route Start Last Admin Trade Name Freq PRN Reason Stop Dose Admin Acetaminophen 650 mg 02/20/18 22:37 02/21/18 11:00 Tylenol - PO 650 mg Q6H PRN Administration FEVER Amino Acids 30 ml 02/20/18 17:30 02/21/18 09:00 Prosource No Carb Liquid Pkt PO 30 ml BID@0800,1730 HARPAL Administration Amlodipine Besylate 10 mg 02/20/18 13:03 02/21/18 11:00 Norvasc - PO 10 mg DAILY HARPAL Administration Collagenase 1 applic 02/20/18 10:00 02/21/18 15:20 Santyl - TP 1 applic DAILY HARPAL Administration Protocol Sodium Chloride 250 mls @ 3,000 mls/hr 02/20/18 17:20 Normal Saline - IV 02/21/18 17:21 PRN PRN Hypotension during Dialysis Insulin Aspart 1 vial 02/20/18 07:00 02/21/18 15:21 Novolog Vial Sliding Scale - SQ Not Given ACHS HARPAL Protocol Lactobacillus Acidophilus 1 tab 02/20/18 10:00 02/21/18 11:00 Bacid - PO 1 tab DAILY HARPAL Administration Metoprolol Tartrate 25 mg 02/20/18 10:00 02/21/18 11:00 Lopressor - PO 25 mg BID HARPAL Administration Vancomycin HCl 125 mg 02/20/18 10:00 02/21/18 11:00 Vancomycin Oral Solution PO 125 mg BID HARPAL Administration ASSESSMENT/PLAN: Patient is a 77 year old female with history of ESRD on HD Mon, Wed, Sun, s/p kidney transplant 10/08, diabetes mellitus, hypertension, Afib not on anticoagulation due to GI bleed on prior admission, recently discharged from [facility], presents for complaint of sacral ulcer, requiring wound care. Stage IV sacral decubitus ulcer -3cm X 3cm, purulent discharge, probing to bone -Surgery--> Santyl to sacrum daily, Alleven over sacrum, Alleven over b/l heels , Offload pressure areas with frequent repositioning, -F/U wound culture -F/U blood cultures - Will obtain MRI of Lumbar spine and Pelvis to evaluate for osteomyelitis -Tomorrow 02/22--> 3 phase bone scan to r/o osteo ESRD on hemodialysis -Nephrology-Dr Winters on board. HD today for 3 hours. 3.00 KG WT REMOVED - Permacath drawn blood cultures--NO GROWTH - Wound culture--Proteus species C. Difficile infection -Continue Vancomycin 125mg PO Q12H -Contact precautions Atrial fibrillation -Continue Metoprolol 25mg PO daily -Currently not on anticoagulation due to GI bleeding on prior admission. -Consider reinstating anticoagulation if deemed appropriate. Hypertension -Continue [id number] mg PO daily Malnutrition -F/U shape hand consult -Spoke with RD today, will add prosource as pt malnourished FEN No IV fluids Follow CMP Renal, sodium controlled, diabetic diet. Prophylaxis -SCDs, TEDs b/l lower extremities Disposition -For discharge tomorrow pending tentatively pending 3 phase bone scan study Visit type - Emergency Visit Emergency Visit: Yes ED Registration Date: 02/19/18 Care time: The patient presented to the Emergency Department on the above date and was hospitalized for further evaluation of their emergent condition. - New Patient This patient is new to me today: No - Critical Care Critical Care patient: No - Discharge Referral Referred to [facility] Med P.C.: No
[2018-02-22] MEDS: ACETAMINOPHEN 325 MG TABLET (FP) PO PRN ×2 (02:09→09:15)
[2018-02-22] MEDS: INSULIN SLIDING SCALE (NOVOLOG) 1 VIAL SQ SCH ×4 (06:45→22:36)
[2018-02-22 07:17] LABS: HEMATOCRIT 25.7 % (32.4-45.2); HEMOGLOBIN 8.2 GM/dL (10.7-15.3); MCH 30.5 pg (25.7-33.7); MCHC 31.8 g/dl (32.0-36.0); MEAN CELL VOLUME 95.9 fl (80-96); MEAN PLT VOLUME 9.2 fl (7.5-11.1); PLATELET COUNT 180 K/MM3 (134-434); RBC 2.68 M/mm3 (3.60-5.2); RDW 17.4 % (11.6-15.6); WHITE BLOOD COUNT 5.2 K/mm3 (4.0-10.0)
[2018-02-22] MEDS: AMINO ACIDS/PROTEIN HYDROLYS 30 ML LIQUID.PKT PO SCH ×2 (08:50→17:34)
[2018-02-22] MEDS: LACTOBACILLUS ACIDOPHILUS 1 TABLET PO SCH (09:15)
[2018-02-22] MEDS: amLODIPine BESYLATE 10 MG TABLET (FP) PO SCH (09:15)
[2018-02-22] MEDS: VANCOMYCIN 250 MG/5 ML ORAL SOLUTION PO SCH ×2 (09:15→22:35)
[2018-02-22] MEDS: METOPROLOL TARTRATE 25 MG TABLET (FP) PO SCH ×2 (09:15→22:35)
[2018-02-22] MEDS: COLLAGENASE CLOSTRIDIUM HIST. 30 GRAMS TUBE TP SCH (09:16)
--- NOTE | 2018-02-22 09:40 | PN ---
Physical Exam: SUBJECTIVE: Patient seen and examined today at bedside. Endorses lower back pain. No acute events overnight. OBJECTIVE: Vital Signs Period Temp Pulse Resp BP Sys/Franco Pulse Ox Last 24 Hr 97.4 F-98.2 F 60-90 18-20 131-158/61-76 95-96 GENERAL: Cachechtic appearing, Lethargic HEAD: Periorbital bruising B/L EYES: PERRLA EOMI ENT: Dry mucous mebranes NECK: Prominet clavicles LUNGS: B/L rhonchi, wet sounding cough. HEART: RRR No MRG S1S2 ABDOMEN: ND NT No HSM EXTREMITIES: Frail, muscle atrophy all 4 extremities SKIN: Sacral decubitus ulcer (3cm x 3cm) with probing to bone, and purulent discharge. Healing wound left heel. Left lateral sacral ulcer stage 3 (1cm x 1cm ) Laboratory Results - last 24 hr 02/21/18 02/21/18 02/21/18 08:45 08:45 10:15 WBC 5.2 RBC 2.49 L Hgb 7.7 L Hct 23.8 L MCV 95.4 MCH 30.7 MCHC 32.2 RDW 17.3 H Plt Count 157 MPV 9.1 Sodium 138 Potassium 4.1 Chloride 100 Carbon Dioxide 30 Anion Gap 8 BUN 24 H Creatinine 3.5 H Creat Clearance w eGFR 12.63 POC Glucometer Random Glucose 79 Calcium 7.8 L Phosphorus 3.7 Total Bilirubin 0.6 AST 26 ALT 9 L Alkaline Phosphatase 288 H Total Protein 6.1 L Albumin 1.5 L Hep C Ab Diagnostic 0.1 Blood Type Antibody Screen 02/21/18 02/21/18 02/21/18 10:15 12:00 17:37 WBC RBC Hgb Hct MCV MCH MCHC RDW Plt Count MPV Sodium Potassium Chloride Carbon Dioxide Anion Gap BUN 6 L Creatinine 0.9 Creat Clearance w eGFR POC Glucometer 77 Random Glucose Calcium Phosphorus Total Bilirubin AST ALT Alkaline Phosphatase Total Protein Albumin Hep C Ab Diagnostic Blood Type O POSITIVE Antibody Screen Positive H 02/21/18 02/22/18 22:38 06:00 WBC 5.2 RBC 2.68 L Hgb 8.2 L Hct 25.7 L MCV 95.9 MCH 30.5 MCHC 31.8 L RDW 17.4 H Plt Count 180 MPV 9.2 Sodium Potassium Chloride Carbon Dioxide Anion Gap BUN Creatinine Creat Clearance w eGFR POC Glucometer 74 Random Glucose Calcium Phosphorus Total Bilirubin AST ALT Alkaline Phosphatase Total Protein Albumin Hep C Ab Diagnostic Blood Type Antibody Screen Active Medications Generic Name Dose Route Start Last Admin Trade Name Berta PRN Reason Stop Dose Admin Acetaminophen 650 mg 02/20/18 22:37 02/22/18 09:15 Tylenol - PO 650 mg Q6H PRN Administration FEVER Amino Acids 30 ml 02/20/18 17:30 02/22/18 08:50 Prosource No Carb Liquid Pkt PO 30 ml BID@0800,1730 HARPAL Administration Amlodipine Besylate 10 mg 02/20/18 13:03 02/22/18 09:15 Norvasc - PO 10 mg DAILY HARPAL Administration Collagenase 1 applic 02/20/18 10:00 02/22/18 09:16 Santyl - TP 1 applic DAILY HARPAL Administration Protocol Sodium Chloride 250 mls @ 3,000 mls/hr 02/20/18 17:20 Normal Saline - IV 02/21/18 17:21 PRN PRN Hypotension during Dialysis Insulin Aspart 1 vial 02/20/18 07:00 02/22/18 06:45 Novolog Vial Sliding Scale - SQ Not Given ACHS HARPAL Protocol Lactobacillus Acidophilus 1 tab 02/20/18 10:00 02/22/18 09:15 Bacid - PO 1 tab DAILY HARPAL Administration Metoprolol Tartrate 25 mg 02/20/18 10:00 02/22/18 09:15 Lopressor - PO 25 mg BID HARPAL Administration Vancomycin HCl 125 mg 02/20/18 10:00 02/22/18 09:15 Vancomycin Oral Solution PO 125 mg BID HARPAL Administration ASSESSMENT/PLAN: Patient is a 77 year old female with history of ESRD on HD Mon, Wed, Sun, s/p kidney transplant 10/08, diabetes mellitus, hypertension, Afib not on anticoagulation due to GI bleed on prior admission, recently discharged from [facility], presents for complaint of sacral ulcer, requiring wound care. Stage IV sacral decubitus ulcer -3cm X 3cm, purulent discharge, probing to bone -Surgery--> Santyl to sacrum daily, Alleven over sacrum, Alleven over b/l heels , Offload pressure areas with frequent repositioning, - MRI of Lumbar spine and Pelvis ---> "Osteomyelitis cannot be excluded 02/20/18 " - 3 phase bone scan to r/o osteo NOT DONE. Per ID, low clinical suspicion 02/22 ESRD on hemodialysis -Nephrology-Dr Winters on board. HD 02/21/18. 3.00 KG WT REMOVED - Permacath drawn blood cultures--NO GROWTH - Wound culture--Proteus species C. Difficile infection -Continue Vancomycin 125mg PO Q12H -Contact precautions Atrial fibrillation -Continue Metoprolol 25mg PO daily -Currently not on anticoagulation due to GI bleeding on prior admission. -Consider reinstating anticoagulation if deemed appropriate. Hypertension -Continue [id number] mg PO daily Malnutrition -F/U chips screen tender consult - prosource as pt malnourished FEN No IV fluids Follow CMP Renal, sodium controlled, diabetic diet. Prophylaxis -SCDs, TEDs b/l lower extremities Disposition -Pt was discharged 02/22/18 however family refusing to leave. Visit type - Emergency Visit Emergency Visit: Yes ED Registration Date: 02/19/18 Care time: The patient presented to the Emergency Department on the above date and was hospitalized for further evaluation of their emergent condition. - New Patient This patient is new to me today: No - Critical Care Critical Care patient: No - Discharge Referral Referred to [facility] Med P.C.: No
[2018-02-22] MEDS ORDERED: SODIUM CHLORIDE 250 ML IV PRN (12:56)
--- NOTE | 2018-02-22 12:56 | PN ---
Progress Note, Physician History of Present Illness: Pt seen and examined at bedside. She is awake and alert. She denies shortness of breath. - Current Medication List Current Medications: Active Medications Acetaminophen (Tylenol -) 650 mg PO Q6H PRN PRN Reason: FEVER Last Admin: 02/22/18 09:15 Dose: 650 mg Amino Acids (Prosource No Carb Liquid Pkt) 30 ml PO BID@0800,1730 COUNT INCLUDES THE [facility] Last Admin: 02/22/18 08:50 Dose: 30 ml Amlodipine Besylate (Norvasc -) 10 mg PO DAILY COUNT INCLUDES THE [facility] Last Admin: 02/22/18 09:15 Dose: 10 mg Collagenase (Santyl -) 1 applic TP DAILY COUNT INCLUDES THE [facility]; Protocol Last Admin: 02/22/18 09:16 Dose: 1 applic Sodium Chloride (Normal Saline -) 250 mls @ 3,000 mls/hr IV PRN PRN PRN Reason: Hypotension during Dialysis Stop: 02/21/18 17:21 Insulin Aspart (Novolog Vial Sliding Scale -) 1 vial SQ ACHS COUNT INCLUDES THE [facility]; Protocol Last Admin: 02/22/18 11:52 Dose: Not Given Lactobacillus Acidophilus (Bacid -) 1 tab PO DAILY COUNT INCLUDES THE [facility] Last Admin: 02/22/18 09:15 Dose: 1 tab Metoprolol Tartrate (Lopressor -) 25 mg PO BID COUNT INCLUDES THE [facility] Last Admin: 02/22/18 09:15 Dose: 25 mg Vancomycin HCl (Vancomycin Oral Solution) 125 mg PO BID COUNT INCLUDES THE [facility] Last Admin: 02/22/18 09:15 Dose: 125 mg - Objective Vital Signs: Vital Signs Temperature 97.8 F 02/22/18 08:59 Pulse Rate 64 02/22/18 08:59 Respiratory Rate 18 02/22/18 08:59 Blood Pressure 145/68 02/22/18 08:59 O2 Sat by Pulse Oximetry (%) 95 02/22/18 08:00 Constitutional: Yes: Calm Eyes: Yes: Conjunctiva Clear Cardiovascular: Yes: S1, S2 Respiratory: Yes: CTA Bilaterally Gastrointestinal: Yes: Soft Genitourinary: Yes: Incontinence Musculoskeletal: Yes: Muscle Weakness Edema: No Neurological: Yes: Oriented Labs: CBC, BMP 02/22/18 06:00 02/21/18 12:00 Problem List - Problems (1) ESRD (end stage renal disease) on dialysis Code(s): N18.6 - END STAGE RENAL DISEASE; Z99.2 - DEPENDENCE ON RENAL DIALYSIS (2) Sacral decubitus ulcer Code(s): L89.159 - PRESSURE ULCER OF SACRAL REGION, UNSPECIFIED STAGE Qualifiers: Pressure injury stage: stage 4 Qualified Code(s): L89.154 - Pressure ulcer of sacral region, stage 4 Assessment/Plan Current Medications Generic Name Dose Route Start Last Admin Trade Name Berta PRN Reason Stop Dose Admin Acetaminophen 650 mg 02/20/18 22:37 02/22/18 09:15 Tylenol - PO 650 mg Q6H PRN Administration FEVER Amino Acids 30 ml 02/20/18 17:30 02/22/18 08:50 Prosource No Carb Liquid Pkt PO 30 ml BID@0800,1730 HARPAL Administration Amlodipine Besylate 10 mg 02/20/18 13:03 02/22/18 09:15 Norvasc - PO 10 mg DAILY HARPAL Administration Collagenase 1 applic 02/20/18 10:00 02/22/18 09:16 Santyl - TP 1 applic DAILY HARPAL Administration Protocol Sodium Chloride 250 mls @ 3,000 mls/hr 02/20/18 17:20 Normal Saline - IV 02/21/18 17:21 PRN PRN Hypotension during Dialysis Insulin Aspart 1 vial 02/20/18 07:00 02/22/18 11:52 Novolog Vial Sliding Scale - SQ Not Given ACHS HARPAL Protocol Lactobacillus Acidophilus 1 tab 02/20/18 10:00 02/22/18 09:15 Bacid - PO 1 tab DAILY HARPAL Administration Metoprolol Tartrate 25 mg 02/20/18 10:00 02/22/18 09:15 Lopressor - PO 25 mg BID HARPAL Administration Vancomycin HCl 125 mg 02/20/18 10:00 02/22/18 09:15 Vancomycin Oral Solution PO 125 mg BID HARPAL Administration Impression 1. ESRD 2. failed kidney transplant 3. hx DM 4. Hx HTN 5. sacral ulcer 6. post op infection 7. c.diff 8. a-fib 9. failure to thrive 10.malnutrition 11. anemia 12. GI bleed Plan - will arrange for HD in am - epogen for anemia - pt going for ct scan today - discussed with medical team - cont wound care - cont bp meds - discussed with family - will follow Dr Winters
--- NOTE | 2018-02-22 14:03 | PN ---
Teaching Attending Note Name of Resident: Fernando Ricci ATTENDING PHYSICIAN STATEMENT I saw and evaluated the patient. I reviewed the resident's note and discussed the case with the resident. I agree with the resident's findings and plan as documented. SUBJECTIVE:has buttock pain which is controlled with pain medication. denies CP , SOB, fevr, chills, N/V/C/D OBJECTIVE: Last Vital Signs Temp Pulse Resp BP Pulse Ox 97.8 F 64 18 145/68 95 02/22/18 08:59 02/22/18 08:59 02/22/18 08:59 02/22/18 08:59 02/22/18 08:00 General NAD, bitemporal wasting, prominent clavicles, thin extremities, brusing to R temporal region ASSESSMENT AND PLAN: 77 yo F with reportedly prolonged stay at [facility] for PNA, cdiff (requiring fecal transplant), 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 Sacral wound- will need to r/o OM in setting of elevated ESR/CRP. MRI inconclusive. consulted ID and discussed in details as pt is well known to both parties from last admission. as pt has clinically improved and has been on extended abx recently. very unlikely pt has acute OM that would warrant treatment. most importantly the patient needs to improve on nutritional status and wound care for the lesions. wound care instruction given. stressed importance for following up with technology sales specialist who can monitor closely. 2. ESRD on HD- HD per normal schedule. tolerated HD yesterday. 3. Anemia- Hgb stable. no signs of active bleeding. no indication for transfusion. epogen weekly 4. Cdiff- contact precautions. on tapering dose of vanco. as per last discharge. no active diarrhea noted 5. R facial brusing- witnessed fall at HD on 02/18. imaging is negative 6. Severe malnutrition- evident by body habitus and BMI. dietary supplements per window cutter 7. HTN- improved. cont norvasc 8. DVT ppx- EAM/SCD 9. d/c home
--- NOTE | 2018-02-22 14:26 | CON.ID ---
Consult Consult Specialty:: infectious disease Referred by:: hospitalist service Reason for Consultation:: sacral ulcer - History of Present Illness Chief Complaint: sent by VNS to ED for sacral ulcer History of Present Illness: 77 yo female with esrd/hd known to me from last admission-01/16 to 02/16- when her family had her signout of [facility]MA and came to [facility] she has a history of failed renal transplant- and post op wound infection-ecoli esbl- we treated her with 2 weeks of iv ertapenem cdiff requiring fecal transplant GI bleed no fevers quite alert - History Source History Provided By: Medical Record - Past Medical History Cardio/Vascular: Yes: HTN, Hyperlipdemia Renal/: Yes: Renal Failure, Renal Inusuff, Hemodialysis ...: No Infectious Disease: Yes: C-Diff, Other (ecoli esbl wound infection) Endocrine: Yes: Diabetes Mellitus - Past Surgical History Past Surgical History: Yes: Kidney Transplant Additional Surgical History: removal of kidney transplant - Alcohol/Substance Use Hx Alcohol Use: No - Smoking History Smoking history: Unknown if ever smoked Have you smoked in the past 12 months: No - Social History Usual Living Arrangement: With Child ADL: Family Assistance History of Recent Travel: No Home Medications - Allergies Allergies/Adverse Reactions: Allergies Allergy/AdvReac Type Severity Reaction Status Date / Time No Known Allergies Allergy Verified 02/18/18 21:53 - Home Medications Home Medications: Ambulatory Orders Lactobacillus Acidophilus [Bacid -] 1 tab PO DAILY #30 tab 02/11/18 Metoprolol Tartrate [Lopressor -] 25 mg PO BID #60 tablet 02/11/18 Vancomycin Oral Solution 125 mg PO Q6HPO #100 ml 02/11/18 Amlodipine Besylate [Norvasc -] 5 mg PO DAILY #30 tablet 02/16/18 Miscellaneous Medical Supply [Glucometer Device] 1 each SQ ASDIR #1 kit Miscellaneous Medical Supply [Glucometer Test Strips #50] 1 each SQ ASDIR #1 box 02/16/18 Miscellaneous Medical Supply [Lancets] 1 each SQ ASDIR #1 box 02/16/18 Miscellaneous Medical Supply [Outpatient Order] 1 each ASDIR #1 misc Family Disease History - Family Disease History Family History: Unable to Obtain Review of Systems - Review of Systems Constitutional: reports: No Symptoms Eyes: reports: No Symptoms HENT: reports: No Symptoms Neck: reports: No Symptoms Cardiovascular: reports: No Symptoms Respiratory: reports: No Symptoms Physical Exam Vital Signs: Vital Signs Temperature 97.8 F 02/22/18 08:59 Pulse Rate 64 02/22/18 08:59 Respiratory Rate 18 02/22/18 08:59 Blood Pressure 145/68 02/22/18 08:59 O2 Sat by Pulse Oximetry (%) 95 02/22/18 08:00 Constitutional: Yes: No Distress, Thin Eyes: Yes: Conjunctiva Clear HENT: Yes: Atraumatic, Normocephalic Neck: Yes: Supple Cardiovascular: Yes: Regular Rate and Rhythm Respiratory: Yes: Regular, CTA Bilaterally Gastrointestinal: Yes: Normal Bowel Sounds, Soft, Other (healed surgical scar no drainage) ...Rectal Exam: Yes: Deferred Musculoskeletal: Yes: WNL Extremities: Yes: WNL Edema: No Wound/Incision: Yes: Other (unstageable sacral ulcer approximately 4 by 3 cm diameter- no erythema, minimal drainage) Psychiatric: Yes: Alert Labs: CBC, BMP 02/22/18 06:00 02/21/18 12:00 Microbiology 02/19/18 23:45 Ulcer Gram Stain - Final 02/19/18 23:45 Ulcer Wound Culture - Preliminary Proteus Mirabilis Group D Strep Or Entero Coccus Staphylococcus Species 02/20/18 00:04 Blood - Almaz Cath Blood Culture - Preliminary NO GROWTH OBTAINED AFTER 48 HOURS, INCUBATION TO CONTINUE FOR 3 DAYS. Imaging - Results MRI: Report Reviewed Problem List - Problems (1) Sacral decubitus ulcer Code(s): L89.159 - PRESSURE ULCER OF SACRAL REGION, UNSPECIFIED STAGE Qualifiers: Pressure injury stage: stage 4 Qualified Code(s): L89.154 - Pressure ulcer of sacral region, stage 4 (2) ESRD (end stage renal disease) on dialysis Code(s): N18.6 - END STAGE RENAL DISEASE; Z99.2 - DEPENDENCE ON RENAL DIALYSIS (3) C. difficile colitis Code(s): A04.72 - ENTEROCOLITIS D/T CLOSTRIDIUM DIFFICILE, NOT SPCF RECUR (4) History of ESBL E. coli infection Code(s): Z86.19 - PERSONAL HISTORY OF OTHER INFECTIOUS AND PARASITIC DISEASES Assessment/Plan is on slow vancomycin taper from recent admission abdominal wound is well healed mental status is improved continue local care to sacral ulcer per surgery will f/u imaging studies low suspician for sacral osteomyelitis contact isolation
[2018-02-23 00:08] LABS: HBSAG SCREEN Negative (Negative); HEP A AB, IGM Negative (Negative); HEP B CORE AB, TOT Negative (Negative)
[2018-02-23] MEDS: INSULIN SLIDING SCALE (NOVOLOG) 1 VIAL SQ SCH ×4 (06:47→22:09)
[2018-02-23] MEDS ORDERED: PT OWN MED DRAWER 7, Y5N ONE (08:46)
[2018-02-23] MEDS: AMINO ACIDS/PROTEIN HYDROLYS 30 ML LIQUID.PKT PO SCH ×2 (09:20→17:26)
[2018-02-23] MEDS: VANCOMYCIN 250 MG/5 ML ORAL SOLUTION PO SCH ×2 (10:13→22:10)
[2018-02-23] MEDS: LACTOBACILLUS ACIDOPHILUS 1 TABLET PO SCH (10:15)
[2018-02-23] MEDS: amLODIPine BESYLATE 10 MG TABLET (FP) PO SCH (10:15)
[2018-02-23] MEDS: METOPROLOL TARTRATE 25 MG TABLET (FP) PO SCH ×2 (10:15→22:09)
[2018-02-23] MEDS: ACETAMINOPHEN 325 MG TABLET (FP) PO PRN (10:26)
[2018-02-23] MEDS ORDERED: EPOETIN ALFA 10,000 UNIT/1 ML VIAL IVPUSH ONE (11:00)
--- NOTE | 2018-02-23 11:30 | PN ---
Progress Note (short form) - Note Progress Note: RENAL pt is awake and alert currently on hemodialysis Last Vital Signs Temp Pulse Resp BP Pulse Ox 97.7 F 69 20 139/64 95 02/23/18 06:00 02/23/18 06:00 02/23/18 06:00 02/23/18 06:00 02/23/18 00:00 lungs clear cvs s1s2 rr abd soft ext no edema neuro a+ox3 CBC, BMP 02/22/18 06:00 02/21/18 12:00 Current Medications Generic Name Dose Route Start Last Admin Trade Name Frehood PRN Reason Stop Dose Admin Acetaminophen 650 mg 02/20/18 22:37 02/23/18 10:26 Tylenol - PO 650 mg Q6H PRN Administration FEVER Amino Acids 30 ml 02/20/18 17:30 02/23/18 09:20 Prosource No Carb Liquid Pkt PO 30 ml BID@0800,1730 HARPAL Administration Amlodipine Besylate 10 mg 02/20/18 13:03 02/23/18 10:15 Norvasc - PO 10 mg DAILY HARPAL Administration Collagenase 1 applic 02/20/18 10:00 02/22/18 09:16 Santyl - TP 1 applic DAILY HARPAL Administration Protocol Sodium Chloride 250 mls @ 3,000 mls/hr 02/22/18 12:56 Normal Saline - IV 02/23/18 12:56 PRN PRN Hypotension during Dialysis Insulin Aspart 1 vial 02/20/18 07:00 02/23/18 06:47 Novolog Vial Sliding Scale - SQ Not Given ACHS HARPAL Protocol Lactobacillus Acidophilus 1 tab 02/20/18 10:00 02/23/18 10:15 Bacid - PO 1 tab DAILY HARPAL Administration Metoprolol Tartrate 25 mg 02/20/18 10:00 02/23/18 10:15 Lopressor - PO 25 mg BID HARPAL Administration Vancomycin HCl 125 mg 02/20/18 10:00 02/23/18 10:13 Vancomycin Oral Solution PO 125 mg BID HARPAL Administration Impression 1. ESRD 2. failed kidney transplant 3. hx DM 4. Hx HTN 5. sacral ulcer 6. post op infection 7. c.diff 8. a-fib 9. failure to thrive 10.malnutrition 11. anemia 12. GI bleed Plan being dialyzed now will repeat BMP ID note reviewed MV
[2018-02-23 12:25] LABS: HEMATOCRIT 23.8 % (32.4-45.2); HEMOGLOBIN 8.2 GM/dL (10.7-15.3); MCH 32.8 pg (25.7-33.7); MCHC 34.4 g/dl (32.0-36.0); MEAN CELL VOLUME 95.3 fl (80-96); MEAN PLT VOLUME 9.2 fl (7.5-11.1); PLATELET COUNT 221 K/MM3 (134-434); RBC 2.49 M/mm3 (3.60-5.2); RDW 16.6 % (11.6-15.6); WHITE BLOOD COUNT 4.7 K/mm3 (4.0-10.0)
[2018-02-23 13:12] LABS: ANION GAP 9 MMOL/L (8-16); BLOOD UREA NITROGEN 27 mg/dL (7-18); CALCIUM 7.9 mg/dL (8.5-10.1); CHLORIDE 98 mmol/L (98-107); CO2 29 mmol/L (21-32); GLUCOSE,RANDOM 83 mg/dL (74-106); POTASSIUM 3.7 mmol/L (3.5-5.1); SODIUM 137 mmol/L (136-145)
--- NOTE | 2018-02-23 14:34 | PN ---
Progress Note (short form) - Note Progress Note: seen in HD. has no complaints. denies CP, SOB, fever, chills, N/V/C?D Current Medications Generic Name Dose Route Start Last Admin Trade Name Berta PRN Reason Stop Dose Admin Acetaminophen 650 mg 02/20/18 22:37 02/23/18 10:26 Tylenol - PO 650 mg Q6H PRN Administration FEVER Amino Acids 30 ml 02/20/18 17:30 02/23/18 09:20 Prosource No Carb Liquid Pkt PO 30 ml BID@0800,1730 HARPAL Administration Amlodipine Besylate 10 mg 02/20/18 13:03 02/23/18 10:15 Norvasc - PO 10 mg DAILY HARPAL Administration Collagenase 1 applic 02/20/18 10:00 02/22/18 09:16 Santyl - TP 1 applic DAILY HARPAL Administration Protocol Insulin Aspart 1 vial 02/20/18 07:00 02/23/18 06:47 Novolog Vial Sliding Scale - SQ Not Given ACHS HARPAL Protocol Lactobacillus Acidophilus 1 tab 02/20/18 10:00 02/23/18 10:15 Bacid - PO 1 tab DAILY HARPAL Administration Metoprolol Tartrate 25 mg 02/20/18 10:00 02/23/18 10:15 Lopressor - PO 25 mg BID HARPAL Administration Vancomycin HCl 125 mg 02/20/18 10:00 02/23/18 10:13 Vancomycin Oral Solution PO 125 mg BID HARPAL Administration Last Vital Signs Temp Pulse Resp BP Pulse Ox 97.8 F 58 L 18 125/61 88 L 02/23/18 10:50 02/23/18 13:55 02/23/18 13:55 02/23/18 13:55 02/23/18 08:00 General NAD, bitemporal wasting, prominent clavicles, thin extremities, brusing to R temporal region ASSESSMENT AND PLAN: 77 yo F with reportedly prolonged stay at [facility] for PNA, cdiff (requiring fecal transplant), 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 Sacral wound- will need to r/o OM in setting of elevated ESR/CRP. MRI inconclusive. as discussed with ID due to low suspicion for OM clinically would not pursue further imaging to evaluate. also commiting this patient to care home abx would result in more harm to the patient then benefit as pt is clinically improved since previous admission and recent extended rowley with cdiff. d/w ID today about wound cx results and will evaluate if any abx would be necessary. wound care instructions as instructed by vascular. 2. ESRD on HD- HD per normal schedule. tolerating HD 3. Anemia- Hgb stable. no signs of active bleeding. no indication for transfusion. epogen weekly 4. Cdiff- contact precautions. on tapering dose of vanco. as per last discharge. no active diarrhea noted 5. R facial brusing- witnessed fall at HD on 02/18. imaging is negative 6. Severe malnutrition- evident by body habitus and BMI. dietary supplements per immunology specialist 7. HTN- improved. cont norvasc 8. DVT ppx- EAM/SCD 9. patient was discharged yesterday due to no medical necessity for hospitalization. son is refusing to accept her into his home. Multiple attempts to reach son, Aries, By myself, nursing staff and CM has been unsuccessful and no one has been able to reach him Visit type - Emergency Visit Emergency Visit: Yes ED Registration Date: 02/19/18 Care time: The patient presented to the Emergency Department on the above date and was hospitalized for further evaluation of their emergent condition. - New Patient This patient is new to me today: No - Critical Care Critical Care patient: No - Discharge Referral Referred to [facility] Med P.C.: No
--- NOTE | 2018-02-23 15:51 | PN ---
Progress Note (short form) - Note Progress Note: seen at HD she is complaining of pain in her legs otherwise alert Vital Signs Period Temp Pulse Resp BP Sys/Franco Pulse Ox Last 24 Hr 97.7 F-98.2 F 58-72 18-20 104-149/43-94 88-95 cor-rrr lungs clear abd soft,nt sacral wound examined yesterday CBC, BMP 02/23/18 11:20 02/23/18 11:20 Microbiology 02/19/18 23:45 Ulcer Gram Stain - Final 02/19/18 23:45 Ulcer Wound Culture - Preliminary Proteus Mirabilis Vr Ec Faecalis Presumptive Mrsa (Pbp2a Pos) 02/20/18 00:04 Blood - Almaz Cath Blood Culture - Preliminary NO GROWTH OBTAINED AFTER 72 HOURS, INCUBATION TO CONTINUE FOR 2 DAYS. a/p Low clinical suspicison for osteomyelitis she has received multiple courses of antibiotics in the last 15 months and has continuously been in the hospital! 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 difficile colitis Code(s): A04.72 - ENTEROCOLITIS D/T CLOSTRIDIUM DIFFICILE, NOT SPCF RECUR (4) History of ESBL E. coli infection Code(s): Z86.19 - PERSONAL HISTORY OF OTHER INFECTIOUS AND PARASITIC DISEASES
[2018-02-23] MEDS: COLLAGENASE CLOSTRIDIUM HIST. 30 GRAMS TUBE TP SCH (17:25)
[2018-02-24] MEDS ORDERED: GLUCAGON 1 MG KIT ONE (05:52)
[2018-02-24] MEDS ORDERED: DEXTROSE 50%-WATER 25 GM/50 ML DISP.SYRIN ONE (05:57)
--- NOTE | 2018-02-24 06:08 | RAPID ---
Physical Examination Vital Signs: Vital Signs Temperature 97.9 F 02/24/18 05:00 Pulse Rate 77 02/24/18 05:00 Respiratory Rate 16 02/24/18 05:00 Blood Pressure 144/77 02/24/18 05:00 O2 Sat by Pulse Oximetry (%) 94 L 02/24/18 00:00 Labs: CBC, BMP 02/23/18 11:20 02/23/18 11:20 Rapid Response - Rapid Response Assessment: Rapid called around 5:50 am On ariving at pt's bedside, pt was unresponsive. Initial vitals 150/72, pulse 69. BGM performed by nurse prior to arrival was in 20's. 1 amp d50 was given and pt became more responsive immediately. Pt stable.
[2018-02-24] MEDS ORDERED: DEXTROSE 50%-WATER - 25 GM/50 ML VIAL IVPUSH ONE (06:09)
[2018-02-24] MEDS: INSULIN SLIDING SCALE (NOVOLOG) 1 VIAL SQ SCH ×4 (06:25→21:14)
[2018-02-24] MEDS ORDERED: PT OWN MED DRAWER 7, Y5N ONE (09:10)
--- NOTE | 2018-02-24 09:45 | PN ---
Teaching Attending Note Name of Resident: Amrik Carreon ATTENDING PHYSICIAN STATEMENT I saw and evaluated the patient. I reviewed the resident's note and discussed the case with the resident. I agree with the resident's findings and plan as documented. SUBJECTIVE:resting comfortable. no complaints. no recall of event last night HEARING CONSULTANT called last night due to patient being unresponsive. BGM 20. 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 Sacral wound- will need to r/o OM in setting of elevated ESR/CRP. MRI inconclusive. Wound cx likely colonization and not requiring abx. cont wound care as instructed. 2. hypogycemia-now resolved as per RN pt ate half of her meals yesterday. unclear what caused sugars to drop as low. will cont to monitor glucose closely. encourage po intake 3. ESRD on HD- HD per normal schedule. tolerating HD 4. Anemia- Hgb stable. no signs of active bleeding. no indication for transfusion. epogen weekly 5. Cdiff- contact precautions. on tapering dose of vanco. as per last discharge. no active diarrhea noted 6. R facial brusing- witnessed fall at HD on 02/18. imaging is negative 7. Severe malnutrition- evident by body habitus and BMI. dietary supplements per windows infrastructure engineer 8. HTN- improved. cont norvasc 9. DVT ppx- EAM/SCD 10. patient has been discharged as of 02/22 as there is no medical indication for hospital stay. Son, HCP, Aries has been aware since discharge date. He has been unreachable since 02/22 and refuses to answer multiple attempts to reach him. attempted again this AM with no response, message left. will attempt again later today. CM and RN supervisor stave cutting is aware
--- NOTE | 2018-02-24 09:48 | PN ---
Progress Note (short form) - Note Progress Note: RENAL sleeping does not want to wake up told me to go to sleep also was hypoglycemic Last Vital Signs Temp Pulse Resp BP Pulse Ox 97.9 F 77 16 144/77 94 L 02/24/18 05:00 02/24/18 05:00 02/24/18 06:55 02/24/18 05:00 02/24/18 06:55 lungs has some wheezing cvs s1s2 rr abd soft ext no edema neuro a+ox3 Current Medications Generic Name Dose Route Start Last Admin Trade Name Freq PRN Reason Stop Dose Admin Acetaminophen 650 mg 02/20/18 22:37 02/23/18 10:26 Tylenol - PO 650 mg Q6H PRN Administration FEVER Amino Acids 30 ml 02/20/18 17:30 02/23/18 17:26 Prosource No Carb Liquid Pkt PO 30 ml BID@0800,1730 HARPAL Administration Amlodipine Besylate 10 mg 02/20/18 13:03 02/23/18 10:15 Norvasc - PO 10 mg DAILY HARPAL Administration Collagenase 1 applic 02/20/18 10:00 02/23/18 17:25 Santyl - TP 1 applic DAILY HARPAL Administration Protocol Insulin Aspart 1 vial 02/24/18 09:43 Novolog Vial Sliding Scale - SQ ACHS HARPAL Protocol Lactobacillus Acidophilus 1 tab 02/20/18 10:00 02/23/18 10:15 Bacid - PO 1 tab DAILY HARPAL Administration Metoprolol Tartrate 25 mg 02/20/18 10:00 02/23/18 22:09 Lopressor - PO 25 mg BID HARPAL Administration Vancomycin HCl 125 mg 02/20/18 10:00 02/23/18 22:10 Vancomycin Oral Solution PO 125 mg BID HARPAL Administration CBC, BMP 02/23/18 11:20 02/23/18 11:20 Impression 1. ESRD 2. failed kidney transplant 3. hx DM 4. Hx HTN 5. sacral ulcer 6. post op infection 7. c.diff 8. a-fib 9. failure to thrive 10.malnutrition 11. anemia 12. GI bleed 13. hypoglycemia Plan will need to have a septic work up given low temp of 92 reproted by nurse cxr would likely need to be transferred to ICU for closer monitoring, she is at risk for cardiac arrhythmias with hypothermia MV
[2018-02-24] MEDS: LACTOBACILLUS ACIDOPHILUS 1 TABLET PO SCH (10:00)
[2018-02-24] MEDS: COLLAGENASE CLOSTRIDIUM HIST. 30 GRAMS TUBE TP SCH (10:00)
[2018-02-24] MEDS: amLODIPine BESYLATE 10 MG TABLET (FP) PO SCH (10:00)
[2018-02-24] MEDS: METOPROLOL TARTRATE 25 MG TABLET (FP) PO SCH ×2 (10:00→21:15)
[2018-02-24] MEDS: AMINO ACIDS/PROTEIN HYDROLYS 30 ML LIQUID.PKT PO SCH ×2 (10:00→18:07)
[2018-02-24] MEDS: VANCOMYCIN 250 MG/5 ML ORAL SOLUTION PO SCH ×2 (10:00→21:15)
--- NOTE | 2018-02-24 11:27 | PN ---
Physical Exam: SUBJECTIVE: Patient seen and examined at bedside. No new complaints. BGM was 23 ovn, patient given D50 through tunneled catheter, BGM improved. OBJECTIVE: Vital Signs Period Temp Pulse Resp BP Sys/Franco Pulse Ox Last 24 Hr 91.9 F-98.8 F 58-81 16-20 117-156/58-94 94-94 GENERAL: Awake Alert, cachexia, Bruising b/l periorbital areas. R permacath in place. HEAD: Normal with no signs of trauma. EYES: EOMI, PERRLA LUNGS: CTA B/L, no wheezing rhonchi or rales appreciated HEART: RRR No MRG S1S2 ABDOMEN: NDNT EXTREMITIES: Muscle atrophy, wasting PSYCH: Normal mood, normal affect. SKIN: sacral decubitus ulcer (3cm x 3cm) with probing to bone, and purulent discharge. Healing wound left heel. Left lateral sacral ulcer stage 3 (1cm x 1cm ) Laboratory Results - last 24 hr 02/23/18 02/23/18 02/23/18 11:20 16:56 20:47 Sodium 137 Potassium 3.7 Chloride 98 Carbon Dioxide 29 Anion Gap 9 BUN 27 H Creatinine 3.0 H Creat Clearance w eGFR 15.09 POC Glucometer 122 169 Random Glucose 83 Calcium 7.9 L 02/24/18 02/24/18 05:42 06:36 Sodium Potassium Chloride Carbon Dioxide Anion Gap BUN Creatinine Creat Clearance w eGFR POC Glucometer 23 122 Random Glucose Calcium Active Medications Generic Name Dose Route Start Last Admin Trade Name Freq PRN Reason Stop Dose Admin Acetaminophen 650 mg 02/20/18 22:37 02/23/18 10:26 Tylenol - PO 650 mg Q6H PRN Administration FEVER Amino Acids 30 ml 02/20/18 17:30 02/23/18 17:26 Prosource No Carb Liquid Pkt PO 30 ml BID@0800,1730 HARPAL Administration Amlodipine Besylate 10 mg 02/20/18 13:03 02/23/18 10:15 Norvasc - PO 10 mg DAILY HARPAL Administration Collagenase 1 applic 02/20/18 10:00 02/23/18 17:25 Santyl - TP 1 applic DAILY HARPAL Administration Protocol Insulin Aspart 1 vial 02/24/18 09:43 Novolog Vial Sliding Scale - SQ ACHS HARPAL Protocol Lactobacillus Acidophilus 1 tab 02/20/18 10:00 02/23/18 10:15 Bacid - PO 1 tab DAILY HARPAL Administration Metoprolol Tartrate 25 mg 02/20/18 10:00 02/23/18 22:09 Lopressor - PO 25 mg BID HARPAL Administration Vancomycin HCl 125 mg 02/20/18 10:00 02/23/18 22:10 Vancomycin Oral Solution PO 125 mg BID HARPAL Administration ASSESSMENT/PLAN: Patient is a 77 year old female, previously admitted at [facility] for 144 days (s/p failed renal transplant, s/p removal), admitted for evaluation of sacral wound #Sacral Wound: wound itself is growing, VRE + MRSA, likely colonization and not infection -ID does not recommend treatment -patient was not able to get bone scan -pursue appropriate wound care #ESRD: failed renal transplant, s/p removal, permacath in place, waiting for chair at HD and equipmnt to be delivered at home -Hemodialysis (MWF) -Nephrology (Dr. Winters) -epogen -Vascular surgery (Dr. Neri) #C-diff: chronic -continue PO vancomycin #Hypoglycemia: resolved -Patient reported to have good appetite -BGM q6h #Altered mental status: Resolved #Atrial fibrillation -Eliquis 2.5 mg BID discontinued on prior admission -continue Metoprolol (Lopressor) 25mg BID. #Anemia: stable -Epogen given. #FEN -Electrolytes wnl -renal diet. #Prophylaxis -SCDs to both legs #Disposition -For discharge- son was failed to be contacted - will attempt again today Visit type - Emergency Visit Emergency Visit: No - New Patient This patient is new to me today: No - Critical Care Critical Care patient: No
[2018-02-24] MEDS ORDERED: VANCOMYCIN 1 GRAM (PRE-DOCKED) 1,000 MG/250 ML BAG IVPB ONE (12:43)
[2018-02-24] MEDS ORDERED: MEROPENEM 500 MG in DEXTROSE 5%-WATER 100 ML IVPB ONE (13:15)
[2018-02-25] MEDS: ACETAMINOPHEN 325 MG TABLET (FP) PO PRN (01:30)
[2018-02-25] MEDS: INSULIN SLIDING SCALE (NOVOLOG) 1 VIAL SQ SCH ×4 (06:04→21:50)
[2018-02-25 09:11] LABS: BASO % 2.4 % (0-2.0); EOS % 1.4 % (0-4.5); HEMATOCRIT 22.1 % (32.4-45.2); HEMOGLOBIN 7.5 GM/dL (10.7-15.3); LYMPH % 23.4 % (8-40); MCH 32.7 pg (25.7-33.7); MCHC 34.2 g/dl (32.0-36.0); MEAN CELL VOLUME 95.6 fl (80-96); MEAN PLT VOLUME 9.3 fl (7.5-11.1); MONO % 10.4 % (3.8-10.2); NEUT % 62.4 % (42.8-82.8); PLATELET COUNT 216 K/MM3 (134-434); RBC 2.31 M/mm3 (3.60-5.2); RDW 16.8 % (11.6-15.6); WHITE BLOOD COUNT 5.6 K/mm3 (4.0-10.0)
[2018-02-25 09:30] LABS: ANION GAP 6 MMOL/L (8-16); BLOOD UREA NITROGEN 31 mg/dL (7-18); CALCIUM 8.3 mg/dL (8.5-10.1); CHLORIDE 103 mmol/L (98-107); CO2 32 mmol/L (21-32); CREATININE 2.7 mg/dL (0.55-1.3); GLUCOSE,RANDOM 77 mg/dL (74-106); POTASSIUM 3.4 mmol/L (3.5-5.1); SODIUM 141 mmol/L (136-145)
[2018-02-25] MEDS ORDERED: PT OWN MED DRAWER 7, Y5N ONE ×2 (09:39→14:29)
[2018-02-25] MEDS: amLODIPine BESYLATE 10 MG TABLET (FP) PO SCH (09:47)
[2018-02-25] MEDS: LACTOBACILLUS ACIDOPHILUS 1 TABLET PO SCH (09:47)
[2018-02-25] MEDS: AMINO ACIDS/PROTEIN HYDROLYS 30 ML LIQUID.PKT PO SCH ×2 (09:48→17:04)
[2018-02-25] MEDS: METOPROLOL TARTRATE 25 MG TABLET (FP) PO SCH ×2 (10:19→21:43)
[2018-02-25] MEDS: VANCOMYCIN 250 MG/5 ML ORAL SOLUTION PO SCH ×2 (10:19→21:42)
--- NOTE | 2018-02-25 13:06 | PN ---
Progress Note, Physician History of Present Illness: Pt seen and examined at bedside. She complains of discomfort from her ulcer. - Current Medication List Current Medications: Active Medications Acetaminophen (Tylenol -) 650 mg PO Q6H PRN PRN Reason: FEVER Last Admin: 02/25/18 01:30 Dose: 650 mg Amino Acids (Prosource No Carb Liquid Pkt) 30 ml PO BID@0800,1730 [facility] Last Admin: 02/25/18 09:48 Dose: 30 ml Amlodipine Besylate (Norvasc -) 10 mg PO DAILY [facility] Last Admin: 02/25/18 09:47 Dose: 10 mg Collagenase (Santyl -) 1 applic TP DAILY [facility]; Protocol Last Admin: 02/24/18 10:00 Dose: 1 applic Meropenem 500 mg/ Dextrose 100 mls @ 200 mls/hr IVPB DAILY [facility] Insulin Aspart (Novolog Vial Sliding Scale -) 1 vial SQ ACHS [facility]; Protocol Last Admin: 02/25/18 12:40 Dose: Not Given Lactobacillus Acidophilus (Bacid -) 1 tab PO DAILY [facility] Last Admin: 02/25/18 09:47 Dose: 1 tab Metoprolol Tartrate (Lopressor -) 25 mg PO BID [facility] Last Admin: 02/25/18 10:19 Dose: 25 mg Vancomycin HCl (Vancomycin Oral Solution) 125 mg PO BID [facility] Last Admin: 02/25/18 10:19 Dose: 125 mg - Objective Vital Signs: Vital Signs Temperature 97.8 F 02/25/18 09:00 Pulse Rate 66 02/25/18 09:00 Respiratory Rate 18 02/25/18 09:00 Blood Pressure 141/69 02/25/18 09:00 O2 Sat by Pulse Oximetry (%) 94 L 02/25/18 06:41 Constitutional: Yes: Calm Eyes: Yes: Conjunctiva Clear HENT: Yes: Atraumatic Cardiovascular: Yes: S1, S2 Respiratory: Yes: CTA Bilaterally Gastrointestinal: Yes: Soft Genitourinary: Yes: Incontinence Musculoskeletal: Yes: Muscle Weakness Edema: No Neurological: Yes: Oriented Psychiatric: Yes: Oriented Labs: CBC, BMP 02/25/18 08:40 02/25/18 08:40 Problem List - Problems (1) ESRD (end stage renal disease) on dialysis Code(s): N18.6 - END STAGE RENAL DISEASE; Z99.2 - DEPENDENCE ON RENAL DIALYSIS (2) Sacral decubitus ulcer Code(s): L89.159 - PRESSURE ULCER OF SACRAL REGION, UNSPECIFIED STAGE Qualifiers: Pressure injury stage: stage 4 Qualified Code(s): L89.154 - Pressure ulcer of sacral region, stage 4 Assessment/Plan Current Medications Generic Name Dose Route Start Last Admin Trade Name Freq PRN Reason Stop Dose Admin Acetaminophen 650 mg 02/20/18 22:37 02/25/18 01:30 Tylenol - PO 650 mg Q6H PRN Administration FEVER Amino Acids 30 ml 02/20/18 17:30 02/25/18 09:48 Prosource No Carb Liquid Pkt PO 30 ml BID@0800,1730 HARPAL Administration Amlodipine Besylate 10 mg 02/20/18 13:03 02/25/18 09:47 Norvasc - PO 10 mg DAILY HARPAL Administration Collagenase 1 applic 02/20/18 10:00 02/24/18 10:00 Santyl - TP 1 applic DAILY HARPAL Administration Protocol Meropenem 500 mg/ Dextrose 100 mls @ 200 mls/hr 02/24/18 12:45 IVPB DAILY [facility]AL Insulin Aspart 1 vial 02/24/18 09:43 02/25/18 12:40 Novolog Vial Sliding Scale - SQ Not Given ACHS HARPAL Protocol Lactobacillus Acidophilus 1 tab 02/20/18 10:00 02/25/18 09:47 Bacid - PO 1 tab DAILY HARPAL Administration Metoprolol Tartrate 25 mg 02/20/18 10:00 02/25/18 10:19 Lopressor - PO 25 mg BID HARPAL Administration Vancomycin HCl 125 mg 02/20/18 10:00 02/25/18 10:19 Vancomycin Oral Solution PO 125 mg BID HARPAL Administration Impression 1. ESRD 2. failed kidney transplant 3. hx DM 4. Hx HTN 5. sacral ulcer 6. post op infection 7. c.diff 8. a-fib 9. failure to thrive 10.malnutrition 11. anemia 12. GI bleed Plan - HD tomorrow - pt is off schedule as she is on a MWF schedule - epogen for anemia - sacral wound workup per primary team - cont wound care - discussed with family - will follow Dr Winters
--- NOTE | 2018-02-25 13:16 | PN ---
Progress Note (short form) - Note Progress Note: seen in her room with the hospitalist Dr Cuevas and sons and daughterin law she is alert c/o pain Vital Signs Period Temp Pulse Resp BP Sys/Franco Pulse Ox Last 24 Hr 95.0 F-98.8 F 66-98 18-20 123-147/55-74 94-95 cor-rrr lungs decreased bs at bases abd soft,nt sacral ulcer -no exposed bone, no purulence, +fibrinous exudate - 3 by 3 cm left ischial ulcer- 1 by 1 cm CBC, BMP 02/25/18 08:40 02/25/18 08:40 cxray with right pleural effusion, ?atelectasis a/p Long conversation with family imaging reviewed with radiology- unlikely sacral osteo by MRI ct scan 02/01 sacral bones intact reviewed her history of cdiff requiring fecal transplant, poor nutritional status with albumin of 1.5 also imaging above making sacral osteo unlikely do not feel she would benefit from bone biopsy at this time will repeat pelvic ct scan today, no contrast no plans to repeat MRI family agrees with this plan they are aware that her overall status is poor at best hypothermia felt to be secondary to malfunctioning equipment resolved spontaneously blood cultures pending ?volume overload repeat cxray after HD d/w hospitalist over 40 minutes spent in formulating plan with family continue contact isolation wound care per surgery no need to treat ulcer wound culture at this time Problem List - Problems (1) Sacral decubitus ulcer Code(s): L89.159 - PRESSURE ULCER OF SACRAL REGION, UNSPECIFIED STAGE Qualifiers: Qualified Code(s): L89.154 - Pressure ulcer of sacral region, stage 4 (2) ESRD (end stage renal disease) on dialysis Code(s): N18.6 - END STAGE RENAL DISEASE; Z99.2 - DEPENDENCE ON RENAL DIALYSIS (3) C. difficile colitis Code(s): A04.72 - ENTEROCOLITIS D/T CLOSTRIDIUM DIFFICILE, NOT SPCF RECUR (4) History of ESBL E. coli infection Code(s): Z86.19 - PERSONAL HISTORY OF OTHER INFECTIOUS AND PARASITIC DISEASES
--- NOTE | 2018-02-25 13:54 | PN ---
Teaching Attending Note Name of Resident: Fernando Ricci ATTENDING PHYSICIAN STATEMENT I saw and evaluated the patient. I reviewed the resident's note and discussed the case with the resident. I agree with the resident's findings and plan as documented. SUBJECTIVE:c/o diffuse body aches. denies CP, SOB, fever, chills, N/V/C/D, cough OBJECTIVE: Last Vital Signs Temp Pulse Resp BP Pulse Ox 97.8 F 66 18 141/69 94 L 02/25/18 09:00 02/25/18 09:00 02/25/18 09:00 02/25/18 09:00 02/25/18 06:41 General NAD, bitemporal wasting, prominent clavicles, thin extremities, bruising to R temporal region CV S1 S2 RRR no murmur/rub/gallop Lungs CTA B/L no wheezing Sacrum 4 cm ulcer with fibrinous base, does no probe to bone, no exposed bone, no active drainage no surrounding erythema ASSESSMENT AND PLAN: 77 yo F with reportedly prolonged stay at [facility] for PNA, cdiff (requiring fecal transplant), 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 Sacral wound-low suspicion for OM based on clinical presentation. Radiology re-evaluated imaging with ID. will repeat CT of the pelvis to evaluate OM. will have [facility] surgery re-evaluate for wound vac placement if she is a candidate. cont offloading and wound care instruction by surgical team. 2. Hypothermia- likely due to faulty equipment. quickly resolved without treatment. no recurrent episodes. no leukocytosis. CXR showing questionable infiltrate but clinically low suspicion for infection. Will repeat CXR after HD. BCx drawn. will monitor for 24H to ensure hypothermia does not recur and results are negative. 2. hypogycemia-now resolved. no recurrent episodes. encourage po intake 3. ESRD on HD- HD per normal schedule. tolerating HD 4. Anemia- Hgb stable. no signs of active bleeding. no indication for transfusion. epogen weekly 5. Cdiff- contact precautions. on tapering dose of vanco. as per last discharge. no active diarrhea noted 6. R facial brusing- witnessed fall at HD on 02/18. imaging is negative 7. Severe malnutrition- evident by body habitus and BMI. dietary supplements per business support professional 8. HTN- improved. cont norvasc 9. DVT ppx- EAM/SCD 10. family meeting with son, dinora and . Discuss current status and plan. Agreeable to plan at this time. Plan for D/C tomorrow if remains normothermic and Bcx negative. d/w CM as well who is aware of plan. Confirmed HD chair is still available
--- NOTE | 2018-02-25 14:11 | PN ---
Progress Note (short form) - Note Progress Note: VAscular Surgery Pt seen and examined. spoke to son and daughter in law at bedside. Evaluated stage 4 sacral ulcer. Daughter in law wanted to know if a vac could be applied. Due to slough in the wound, would not apply vac. Continue santyl. Family understands. Spoke to son about the fact that his mom is not eating. Spoke to son about other options such as peg tube for nourishment. Son was amenable to having peg placed. Please intiate GI consultation for education about peg tube. Cont to offlad all areas. Willl follow. Simeon Neri DO
--- NOTE | 2018-02-25 14:39 | EKG ---
Test Reason : Blood Pressure : / mmHG Vent. Rate : 065 BPM Atrial Rate : 065 BPM P-R Int : 208 ms QRS Dur : 102 ms QT Int : 502 ms P-R-T Axes : 045 068 039 degrees QTc Int : 522 ms NORMAL SINUS RHYTHM LEFT VENTRICULAR HYPERTROPHY WITH REPOLARIZATION ABNORMALITY CANNOT RULE OUT SEPTAL INFARCT (CITED ON OR BEFORE 15-JAN-2018) PROLONGED QT NONSPECIFIC ST AND T WAVE ABNORMALITY ABNORMAL ECG WHEN COMPARED WITH ECG OF 19-FEB-2018 23:34, NO SIGNIFICANT CHANGE WAS FOUND Confirmed by ELISA JOSÉ, DICKSON ([id number]) on 02/25/2018 2:38:50 PM Referred By: [facility] EP[facility] Confirmed By:DICKSON PÉREZ MD
[2018-02-25] MEDS: MEROPENEM 500 MG in DEXTROSE 5%-WATER 100 ML IVPB SCH (15:30)
[2018-02-25] MEDS: COLLAGENASE CLOSTRIDIUM HIST. 30 GRAMS TUBE TP SCH (17:04)
--- NOTE | 2018-02-25 19:14 | PN ---
Physical Exam: SUBJECTIVE: Patient seen and examined at bedside. Awake and alert. States she has lower back pain and that her legs hurt. No acute events overnight. OBJECTIVE: Vital Signs Period Temp Pulse Resp BP Sys/Franco Pulse Ox Last 24 Hr 97.0 F-98.8 F 66-98 18-20 123-141/60-81 94-95 GENERAL:Cachectic, muscle atrophy HEAD: NC/AT, periorbital brusing residing EYES: PERRLA EOMI NECK: Trachea midline, full range of motion, supple. LUNGS: CTA B/L HEART: RRR, No MRG S1S2 ABDOMEN: NDNT No HSM. Prominent Illiac crests 2/2 malnutrition EXTREMITIES: Muscle atrophy and wasting. Bandages on heels PSYCH: Normal mood, normal affect. SKIN: Sacral Decubitus ulcer. No exposed bone, no drainage. Laboratory Results - last 24 hr 02/24/18 02/25/18 02/25/18 21:12 03:08 06:03 WBC RBC Hgb Hct MCV MCH MCHC RDW Plt Count MPV Absolute Neuts (auto) Neutrophils % Lymphocytes % Monocytes % Eosinophils % Basophils % Nucleated RBC % Sodium Potassium Chloride Carbon Dioxide Anion Gap BUN Creatinine Creat Clearance w eGFR POC Glucometer 145 260 161 Random Glucose Calcium 02/25/18 02/25/18 02/25/18 08:40 08:40 11:32 WBC 5.6 RBC 2.31 L Hgb 7.5 L Hct 22.1 L MCV 95.6 MCH 32.7 MCHC 34.2 RDW 16.8 H Plt Count 216 MPV 9.3 Absolute Neuts (auto) 3.5 Neutrophils % 62.4 Lymphocytes % 23.4 D Monocytes % 10.4 H Eosinophils % 1.4 Basophils % 2.4 H Nucleated RBC % 0 Sodium 141 Potassium 3.4 L Chloride 103 Carbon Dioxide 32 Anion Gap 6 L BUN 31 H Creatinine 2.7 H Creat Clearance w eGFR 17.04 POC Glucometer 104 Random Glucose 77 Calcium 8.3 L 02/25/18 16:46 WBC RBC Hgb Hct MCV MCH MCHC RDW Plt Count MPV Absolute Neuts (auto) Neutrophils % Lymphocytes % Monocytes % Eosinophils % Basophils % Nucleated RBC % Sodium Potassium Chloride Carbon Dioxide Anion Gap BUN Creatinine Creat Clearance w eGFR POC Glucometer 155 Random Glucose Calcium Active Medications Generic Name Dose Route Start Last Admin Trade Name Freq PRN Reason Stop Dose Admin Acetaminophen 650 mg 02/20/18 22:37 02/25/18 01:30 Tylenol - PO 650 mg Q6H PRN Administration FEVER Amino Acids 30 ml 02/20/18 17:30 02/25/18 17:04 Prosource No Carb Liquid Pkt PO 30 ml BID@0800,1730 [facility] Administration Amlodipine Besylate 10 mg 02/20/18 13:03 02/25/18 09:47 Norvasc - PO 10 mg DAILY [facility] Administration Collagenase 1 applic 02/20/18 10:00 02/25/18 17:04 Santyl - TP 1 applic DAILY [facility] Administration Protocol Epoetin Abe 10,000 unit 02/26/18 13:08 Procrit - IVPUSH 02/26/18 13:09 ONCE ONE Sodium Chloride 250 mls @ 3,000 mls/hr 02/25/18 13:08 Normal Saline - IV 02/26/18 13:08 PRN PRN Hypotension during Dialysis Insulin Aspart 1 vial 02/24/18 09:43 02/25/18 16:54 Novolog Vial Sliding Scale - SQ Not Given ACHS [facility] Protocol Lactobacillus Acidophilus 1 tab 02/20/18 10:00 02/25/18 09:47 Bacid - PO 1 tab DAILY [facility] Administration Metoprolol Tartrate 25 mg 02/20/18 10:00 02/25/18 10:19 Lopressor - PO 25 mg BID [facility] Administration Vancomycin HCl 125 mg 02/20/18 10:00 02/25/18 10:19 Vancomycin Oral Solution PO 125 mg BID [facility] Administration ASSESSMENT/PLAN: Patient is a 77 year old female with history of ESRD on HD Mon, Wed, Sun, s/p kidney transplant 10/08, diabetes mellitus, hypertension, Afib not on anticoagulation due to GI bleed on prior admission, recently discharged from [facility], presents for complaint of sacral ulcer, requiring wound care. Stage IV sacral decubitus ulcer -Surgery--> Santyl to sacrum daily, Alleven over sacrum, Alleven over b/l heels , Offload pressure areas with frequent repositioning, - MRI of Lumbar spine and Pelvis ---> "Osteomyelitis cannot be excluded 02/20/18 " 3 phase bone scan to r/o osteo NOT DONE. Per ID, low clinical suspicion -02/25/18 ID and Hospitalist discussed treatment with family this afternoon. Will do CT Pelvis tomorrow. Bone biopsy not recommended at this time. Low clinical suspicion for osteomyelitis. Radiology re-evaluated imaging with ID and concur osteo very unlikely in light of recent imaging studies. ESRD on hemodialysis -Nephrology-Dr Winters on board. HD tomorrow Sunday02/26/18 - Permacath drawn blood cultures--NO GROWTH - Wound culture--Proteus species, MRSA, VR EC F -Blood cultures 02/25 pending C. Difficile infection -Continue Vancomycin 125mg PO Q12H -Contact precautions Atrial fibrillation -Lopressor 25 po bid -No AC at this time H/H 7. Hypertension -Continue [id number] mg PO daily Malnutrition -F/U senior sql server developer consult - prosource as pt malnourished FEN No IV fluids Follow CMP Renal, sodium controlled, diabetic diet. Prophylaxis -SCDs, TEDs b/l lower extremities Disposition -For tentative discharge tomorrow 02/26/18 Visit type - Emergency Visit Emergency Visit: Yes ED Registration Date: 02/19/18 Care time: The patient presented to the Emergency Department on the above date and was hospitalized for further evaluation of their emergent condition. - New Patient This patient is new to me today: No - Critical Care Critical Care patient: No - Discharge Referral Referred to [facility] Med P.C.: No
[2018-02-26] MEDS: INSULIN SLIDING SCALE (NOVOLOG) 1 VIAL SQ SCH ×4 (06:05→23:24)
[2018-02-26] MEDS ORDERED: SODIUM CHLORIDE 250 ML IV PRN (09:49)
[2018-02-26] MEDS ORDERED: EPOETIN ALFA 10,000 UNIT/1 ML VIAL IVPUSH ONE (10:15)
[2018-02-26 11:03] LABS: HEMOGLOBIN 7.9 GM/dL (10.7-15.3); MCH 32.6 pg (25.7-33.7); MCHC 34.3 g/dl (32.0-36.0); MEAN CELL VOLUME 95.1 fl (80-96); MEAN PLT VOLUME 8.9 fl (7.5-11.1); PLATELET COUNT 237 K/MM3 (134-434); RBC 2.42 M/mm3 (3.60-5.2); RDW 16.6 % (11.6-15.6); WHITE BLOOD COUNT 6.9 K/mm3 (4.0-10.0)
[2018-02-26 11:54] LABS: ANION GAP 9 MMOL/L (8-16); BLOOD UREA NITROGEN 47 mg/dL (7-18); CALCIUM 8.1 mg/dL (8.5-10.1); CHLORIDE 99 mmol/L (98-107); CO2 30 mmol/L (21-32); CREATININE 3.3 mg/dL (0.55-1.3); GLUCOSE,RANDOM 71 mg/dL (74-106); POTASSIUM 4.2 mmol/L (3.5-5.1); SODIUM 137 mmol/L (136-145)
[2018-02-26] MEDS: METOPROLOL TARTRATE 25 MG TABLET (FP) PO SCH ×2 (14:06→23:25)
[2018-02-26] MEDS: amLODIPine BESYLATE 10 MG TABLET (FP) PO SCH (14:06)
[2018-02-26] MEDS: AMINO ACIDS/PROTEIN HYDROLYS 30 ML LIQUID.PKT PO SCH ×2 (14:06→16:43)
[2018-02-26] MEDS: LACTOBACILLUS ACIDOPHILUS 1 TABLET PO SCH (14:06)
[2018-02-26] MEDS: COLLAGENASE CLOSTRIDIUM HIST. 30 GRAMS TUBE TP SCH (14:14)
[2018-02-26] MEDS: VANCOMYCIN 250 MG/5 ML ORAL SOLUTION PO SCH ×2 (14:15→23:25)
--- NOTE | 2018-02-26 16:23 | PN ---
Progress Note, Physician History of Present Illness: Pt seen and examined at bedside. Pt tolerated Hd. - Current Medication List Current Medications: Active Medications Acetaminophen (Tylenol -) 650 mg PO Q6H PRN PRN Reason: FEVER Last Admin: 02/25/18 01:30 Dose: 650 mg Amino Acids (Prosource No Carb Liquid Pkt) 30 ml PO BID@0800,1730 [facility] Last Admin: 02/26/18 14:06 Dose: 30 ml Amlodipine Besylate (Norvasc -) 10 mg PO DAILY [facility] Last Admin: 02/26/18 14:06 Dose: 10 mg Collagenase (Santyl -) 1 applic TP DAILY [facility]; Protocol Last Admin: 02/26/18 14:14 Dose: 1 applic Insulin Aspart (Novolog Vial Sliding Scale -) 1 vial SQ ACHS [facility]; Protocol Last Admin: 02/26/18 06:05 Dose: Not Given Lactobacillus Acidophilus (Bacid -) 1 tab PO DAILY [facility] Last Admin: 02/26/18 14:06 Dose: 1 tab Metoprolol Tartrate (Lopressor -) 25 mg PO BID [facility] Last Admin: 02/26/18 14:06 Dose: 25 mg Vancomycin HCl (Vancomycin Oral Solution) 125 mg PO BID [facility] Last Admin: 02/26/18 14:15 Dose: 125 mg - Objective Vital Signs: Vital Signs Temperature 97.8 F 02/26/18 10:30 Pulse Rate 86 02/26/18 14:00 Respiratory Rate 18 02/26/18 14:00 Blood Pressure 134/70 02/26/18 14:00 O2 Sat by Pulse Oximetry (%) 98 02/26/18 07:00 Constitutional: Yes: Calm Eyes: Yes: Conjunctiva Clear HENT: Yes: Atraumatic Neck: Yes: Supple Cardiovascular: Yes: S1, S2 Respiratory: Yes: CTA Bilaterally Gastrointestinal: Yes: Soft Genitourinary: Yes: Incontinence Musculoskeletal: Yes: Muscle Weakness Edema: No Wound/Incision: Yes: Dressing Dry and Intact Neurological: Yes: Confusion Labs: CBC, BMP 02/26/18 10:40 02/26/18 10:40 Problem List - Problems (1) ESRD (end stage renal disease) on dialysis Code(s): N18.6 - END STAGE RENAL DISEASE; Z99.2 - DEPENDENCE ON RENAL DIALYSIS (2) Sacral decubitus ulcer Code(s): L89.159 - PRESSURE ULCER OF SACRAL REGION, UNSPECIFIED STAGE Qualifiers: Pressure injury stage: stage 4 Qualified Code(s): L89.154 - Pressure ulcer of sacral region, stage 4 Assessment/Plan Current Medications Generic Name Dose Route Start Last Admin Trade Name Freq PRN Reason Stop Dose Admin Acetaminophen 650 mg 02/20/18 22:37 02/25/18 01:30 Tylenol - PO 650 mg Q6H PRN Administration FEVER Amino Acids 30 ml 02/20/18 17:30 02/26/18 14:06 Prosource No Carb Liquid Pkt PO 30 ml BID@0800,1730 [facility] Administration Amlodipine Besylate 10 mg 02/20/18 13:03 02/26/18 14:06 Norvasc - PO 10 mg DAILY [facility] Administration Collagenase 1 applic 02/20/18 10:00 02/26/18 14:14 Santyl - TP 1 applic DAILY [facility] Administration Protocol Insulin Aspart 1 vial 02/24/18 09:43 02/26/18 06:05 Novolog Vial Sliding Scale - SQ Not Given ACHS [facility] Protocol Lactobacillus Acidophilus 1 tab 02/20/18 10:00 02/26/18 14:06 Bacid - PO 1 tab DAILY [facility] Administration Metoprolol Tartrate 25 mg 02/20/18 10:00 02/26/18 14:06 Lopressor - PO 25 mg BID [facility] Administration Vancomycin HCl 125 mg 02/20/18 10:00 02/26/18 14:15 Vancomycin Oral Solution PO 125 mg BID [facility] Administration Impression 1. ESRD 2. failed kidney transplant 3. hx DM 4. Hx HTN 5. sacral ulcer 6. post op infection 7. c.diff 8. a-fib 9. failure to thrive 10.malnutrition 11. anemia 12. GI bleed Plan - pt tolerated HD - she was agitated earlier but is calm now - epogen for anemia - sacral wound workup per primary team - cont wound care - will follow Dr Winters
--- NOTE | 2018-02-26 18:23 | PN ---
Teaching Attending Note Name of Resident: Fernando Ricci ATTENDING PHYSICIAN STATEMENT I saw and evaluated the patient. I reviewed the resident's note and discussed the case with the resident. I agree with the resident's findings and plan as documented. SUBJECTIVE: OBJECTIVE: Vital Signs Period Temp Pulse Resp BP Sys/Franco Pulse Ox Last 24 Hr 97.3 F-99.0 F 73-89 18-20 126-154/50-79 95-98 Laboratory Results - last 24 hr 02/25/18 02/25/18 02/26/18 08:40 21:46 01:36 WBC RBC Hgb Hct MCV MCH MCHC RDW Plt Count MPV Sodium 141 Potassium 3.4 L Chloride 103 Carbon Dioxide 32 Anion Gap 6 L BUN 31 H Creatinine 2.7 H Creat Clearance w eGFR 17.04 POC Glucometer 97 122 Random Glucose 77 Calcium 8.3 L Creatine Kinase 29 Troponin I 0.04 02/26/18 02/26/18 02/26/18 06:02 10:40 10:40 WBC 6.9 RBC 2.42 L Hgb 7.9 L Hct 23.0 L MCV 95.1 MCH 32.6 MCHC 34.3 RDW 16.6 H Plt Count 237 MPV 8.9 Sodium 137 Potassium 4.2 Chloride 99 Carbon Dioxide 30 Anion Gap 9 BUN 47 H Creatinine 3.3 H Creat Clearance w eGFR 13.52 POC Glucometer 107 Random Glucose 71 L Calcium 8.1 L Creatine Kinase Troponin I 02/26/18 02/26/18 14:09 16:45 WBC RBC Hgb Hct MCV MCH MCHC RDW Plt Count MPV Sodium Potassium Chloride Carbon Dioxide Anion Gap BUN Creatinine Creat Clearance w eGFR POC Glucometer 119 170 Random Glucose Calcium Creatine Kinase Troponin I Current Medications Generic Name Dose Route Start Last Admin Trade Name Freq PRN Reason Stop Dose Admin Acetaminophen 650 mg 02/20/18 22:37 02/25/18 01:30 Tylenol - PO 650 mg Q6H PRN Administration FEVER Amino Acids 30 ml 02/20/18 17:30 02/26/18 16:43 Prosource No Carb Liquid Pkt PO 30 ml BID@0800,1730 [facility] Administration Amlodipine Besylate 10 mg 02/20/18 13:03 02/26/18 14:06 Norvasc - PO 10 mg DAILY [facility] Administration Collagenase 1 applic 02/20/18 10:00 02/26/18 14:14 Santyl - TP 1 applic DAILY [facility] Administration Protocol Insulin Aspart 1 vial 02/24/18 09:43 02/26/18 16:49 Novolog Vial Sliding Scale - SQ Not Given ACHS [facility] Protocol Lactobacillus Acidophilus 1 tab 02/20/18 10:00 02/26/18 14:06 Bacid - PO 1 tab DAILY [facility] Administration Metoprolol Tartrate 25 mg 02/20/18 10:00 02/26/18 14:06 Lopressor - PO 25 mg BID [facility] Administration Vancomycin HCl 125 mg 02/20/18 10:00 02/26/18 14:15 Vancomycin Oral Solution PO 125 mg BID [facility] Administration ASSESSMENT AND PLAN:
--- NOTE | 2018-02-26 19:41 | CONS ---
DATE OF CONSULTATION: DATE OF DICTATION: 02/26/2018 HISTORY OF PRESENT ILLNESS: Mrs. De La Vega is a 77-year-old female, past medical history of end-stage renal disease, on hemodialysis, status post kidney transplant in 2018, diabetes, hypertension, atrial fibrillation, not on anticoagulation secondary to GI bleed, for which she was recently admitted. She was sent to the ER by her visiting nurse for a sacral ulcer. During the course, it was noted she is not eating very much, with poor appetite. Patient denies any abdominal pain, nausea, vomiting, change in bowel habit. She is a poor historian but states she just does admit to not having much of an appetite at this time. Past medical and surgical history is as listed in the HPI. ALLERGIES: No known drug allergies. Home medications were reviewed and include lactobacillus, metoprolol, vancomycin p.o., amlodipine. REVIEW OF SYSTEMS: Negative except for pertinent positives in the HPI. SOCIAL HISTORY: Does not smoke, drink, or use drugs. FAMILY HISTORY: Noncontributory. PHYSICAL EXAMINATION: General: In no acute distress. Vital Signs: Temperature 97, pulse 73, respiratory rate 12, blood pressure 140/ 68. HEENT: Anicteric sclerae. Cardiovascular: S1, S2, regular rate and rhythm. Lungs: Bilaterally clear to auscultation. Abdomen: Soft and nontender. normal bowel sounds Extremities: No edema. LABORATORY DATA: White blood cell count 6.9, hemoglobin 7.9, hematocrit 23, MCV 95. Hemoglobin has been between 7 and 8 during this admission, platelet count 237. Sodium 137, potassium 4.2, BUN 47, creatinine 3.3, glucose 71. She had pelvis CT scan on this admission, which revealed no evidence of osteomyelitis. She has not had any swallow evaluation, as per the record. IMPRESSION: Failure to thrive secondary to multiple comorbidities. RECOMMENDATION: Speech and swallow evaluation, calorie count. Encourage p.o. intake. Would prefer to hold off on any invasive procedure such as percutaneous gastrostomy tube placement in this patient at this time. Further recommendations to follow her speech and swallow evaluation evaluation as well as calorie count. Trial of appetite stimulant may be an option for now. This patient will be followed by the GI service. DO LEONID WILDER/[id number] MTDD
--- NOTE | 2018-02-26 20:12 | PN ---
Physical Exam: SUBJECTIVE: Patient seen and examined at bedside. No acute events overnight. Underwent HD earlier today. CT Pelvis performed as well . OBJECTIVE: Vital Signs Period Temp Pulse Resp BP Sys/Franco Pulse Ox Last 24 Hr 97.3 F-99.0 F 73-89 18-20 126-154/50-79 95-98 GENERAL: Awake and Alert. Cachechtic, muscle atrophy HEAD: NC/AT EYES: PERRLA EOMI, jaspal-orbital bruising residing. ENT: MMM NECK: Trachea midline, full range of motion, supple. LUNGS: Scattered Rhonchi HEART:RRR No MRG S1S2 ABDOMEN: NDNT EXTREMITIES: Muscle atrophy and wasting, thin emaciated PSYCH: Normal mood, normal affect. SKIN: Sacral Decubitus ulcer with fibrinous tissue showing. No bone appreciated Laboratory Results - last 24 hr 02/25/18 02/25/18 02/26/18 08:40 21:46 01:36 WBC RBC Hgb Hct MCV MCH MCHC RDW Plt Count MPV Sodium 141 Potassium 3.4 L Chloride 103 Carbon Dioxide 32 Anion Gap 6 L BUN 31 H Creatinine 2.7 H Creat Clearance w eGFR 17.04 POC Glucometer 97 122 Random Glucose 77 Calcium 8.3 L Creatine Kinase 29 Troponin I 0.04 02/26/18 02/26/18 02/26/18 06:02 10:40 10:40 WBC 6.9 RBC 2.42 L Hgb 7.9 L Hct 23.0 L MCV 95.1 MCH 32.6 MCHC 34.3 RDW 16.6 H Plt Count 237 MPV 8.9 Sodium 137 Potassium 4.2 Chloride 99 Carbon Dioxide 30 Anion Gap 9 BUN 47 H Creatinine 3.3 H Creat Clearance w eGFR 13.52 POC Glucometer 107 Random Glucose 71 L Calcium 8.1 L Creatine Kinase Troponin I 02/26/18 02/26/18 14:09 16:45 WBC RBC Hgb Hct MCV MCH MCHC RDW Plt Count MPV Sodium Potassium Chloride Carbon Dioxide Anion Gap BUN Creatinine Creat Clearance w eGFR POC Glucometer 119 170 Random Glucose Calcium Creatine Kinase Troponin I Active Medications Generic Name Dose Route Start Last Admin Trade Name Freq PRN Reason Stop Dose Admin Acetaminophen 650 mg 02/20/18 22:37 02/25/18 01:30 Tylenol - PO 650 mg Q6H PRN Administration FEVER Amino Acids 30 ml 02/20/18 17:30 02/26/18 16:43 Prosource No Carb Liquid Pkt PO 30 ml BID@0800,1730 [facility] Administration Amlodipine Besylate 10 mg 02/20/18 13:03 02/26/18 14:06 Norvasc - PO 10 mg DAILY [facility] Administration Collagenase 1 applic 02/20/18 10:00 02/26/18 14:14 Santyl - TP 1 applic DAILY [facility] Administration Protocol Insulin Aspart 1 vial 02/24/18 09:43 02/26/18 16:49 Novolog Vial Sliding Scale - SQ Not Given ACHS [facility] Protocol Lactobacillus Acidophilus 1 tab 02/20/18 10:00 02/26/18 14:06 Bacid - PO 1 tab DAILY [facility] Administration Metoprolol Tartrate 25 mg 02/20/18 10:00 02/26/18 14:06 Lopressor - PO 25 mg BID [facility] Administration Vancomycin HCl 125 mg 02/20/18 10:00 02/26/18 14:15 Vancomycin Oral Solution PO 125 mg BID [facility] Administration ASSESSMENT/PLAN: Patient is a 77 year old female with history of ESRD on HD Mon, Wed, Sun, s/p kidney transplant 10/08, diabetes mellitus, hypertension, Afib not on anticoagulation due to GI bleed on prior admission, recently discharged from [facility], presents for complaint of sacral ulcer, requiring wound care. Stage IV sacral decubitus ulcer -Surgery--> Santyl to sacrum daily, Alleven over sacrum, Alleven over b/l heels , Offload pressure areas with frequent repositioning, - MRI of Lumbar spine and Pelvis ---> "Osteomyelitis cannot be excluded 02/20/18 " 3 phase bone scan to r/o osteo NOT DONE. Per ID, low clinical suspicion -02/25/18 ID and Hospitalist discussed treatment with family this afternoon. Will do CT Pelvis tomorrow. Bone biopsy not recommended at this time. Low clinical suspicion for osteomyelitis. Radiology re-evaluated imaging with ID and concur osteo very unlikely in light of recent imaging studies. 02/26/18 CT Abd/Pelvis--> No CT Evidence of osteomyelitis. Meeting tomorrow, 02/27/18, with medical insurance clerk, social workers, risk assesment for plan of action and next step moving forward. ESRD on hemodialysis -Nephrology-Dr Samarneh on board. HD done today 02/26/18--> 2.00 KG WT REMOVED. - Permacath drawn blood cultures--NO GROWTH - Wound culture--Proteus species, MRSA, VR EC F -Blood cultures 02/25 Negative C. Difficile infection -Continue Vancomycin 125mg PO Q12H -Contact precautions Atrial fibrillation -Lopressor 25 po bid -No AC at this time H/H 7.9/23.0 02/26/18 Hypertension -Continue Norvasc 10 mg PO daily Malnutrition -F/U elementary substitute teacher consult - prosource as pt malnourished FEN No IV fluids Follow CMP Renal, sodium controlled, diabetic diet. Prophylaxis -SCDs, TEDs b/l lower extremities Disposition -For tentative discharge tomorrow 02/27/18 Visit type - Emergency Visit Emergency Visit: Yes ED Registration Date: 02/19/18 Care time: The patient presented to the Emergency Department on the above date and was hospitalized for further evaluation of their emergent condition. - New Patient This patient is new to me today: No - Critical Care Critical Care patient: No - Discharge Referral Referred to [facility] Med P.C.: No
[2018-02-26] MEDS ORDERED: PT OWN MED DRAWER 7, Y5N ONE (21:48)
[2018-02-27] MEDS: INSULIN SLIDING SCALE (NOVOLOG) 1 VIAL SQ SCH ×4 (06:44→22:59)
[2018-02-27] MEDS: AMINO ACIDS/PROTEIN HYDROLYS 30 ML LIQUID.PKT PO SCH ×3 (08:17→22:58)
[2018-02-27] MEDS: METOPROLOL TARTRATE 25 MG TABLET (FP) PO SCH ×2 (10:00→22:58)
[2018-02-27] MEDS: LACTOBACILLUS ACIDOPHILUS 1 TABLET PO SCH (10:00)
[2018-02-27] MEDS: amLODIPine BESYLATE 10 MG TABLET (FP) PO SCH (10:00)
[2018-02-27] MEDS: VANCOMYCIN 250 MG/5 ML ORAL SOLUTION PO SCH ×2 (10:02→22:59)
[2018-02-27] MEDS: COLLAGENASE CLOSTRIDIUM HIST. 30 GRAMS TUBE TP SCH (10:03)
[2018-02-27] MEDS: ACETAMINOPHEN 325 MG TABLET (FP) PO PRN (11:35)
[2018-02-27] MEDS ORDERED: SODIUM CHLORIDE 250 ML IV PRN (11:51)
--- NOTE | 2018-02-27 11:51 | PN ---
Progress Note, Physician History of Present Illness: Pt seen and examined at bedside. She appears comfortable. She does get easily agitated. - Current Medication List Current Medications: Active Medications Acetaminophen (Tylenol -) 650 mg PO Q6H PRN PRN Reason: FEVER Last Admin: 02/27/18 11:35 Dose: 650 mg Amino Acids (Prosource No Carb Liquid Pkt) 30 ml PO BID@0800,1730 [facility] Last Admin: 02/27/18 08:17 Dose: 30 ml Amlodipine Besylate (Norvasc -) 10 mg PO DAILY [facility] Last Admin: 02/27/18 10:00 Dose: 10 mg Collagenase (Santyl -) 1 applic TP DAILY [facility]; Protocol Last Admin: 02/27/18 10:03 Dose: 1 applic Insulin Aspart (Novolog Vial Sliding Scale -) 1 vial SQ ACHS [facility]; Protocol Last Admin: 02/27/18 11:28 Dose: Not Given Lactobacillus Acidophilus (Bacid -) 1 tab PO DAILY [facility] Last Admin: 02/27/18 10:00 Dose: 1 tab Metoprolol Tartrate (Lopressor -) 25 mg PO BID [facility] Last Admin: 02/27/18 10:00 Dose: 25 mg Vancomycin HCl (Vancomycin Oral Solution) 125 mg PO BID [facility] Last Admin: 02/27/18 10:02 Dose: 125 mg - Objective Vital Signs: Vital Signs Temperature 97.4 F L 02/27/18 10:00 Pulse Rate 70 02/27/18 10:00 Respiratory Rate 18 02/27/18 10:00 Blood Pressure 139/61 02/27/18 10:00 O2 Sat by Pulse Oximetry (%) 98 02/26/18 07:00 Constitutional: Yes: Cachectic Eyes: Yes: Conjunctiva Clear HENT: Yes: Atraumatic Cardiovascular: Yes: S1, S2 Respiratory: Yes: Rhonchi Gastrointestinal: Yes: Soft Genitourinary: Yes: Incontinence Musculoskeletal: Yes: Muscle Weakness Edema: No Neurological: Yes: Oriented Psychiatric: Yes: Oriented, Agitated Labs: CBC, BMP 02/26/18 10:40 02/26/18 10:40 Problem List - Problems (1) ESRD (end stage renal disease) on dialysis Code(s): N18.6 - END STAGE RENAL DISEASE; Z99.2 - DEPENDENCE ON RENAL DIALYSIS (2) Sacral decubitus ulcer Code(s): L89.159 - PRESSURE ULCER OF SACRAL REGION, UNSPECIFIED STAGE Qualifiers: Pressure injury stage: stage 4 Qualified Code(s): L89.154 - Pressure ulcer of sacral region, stage 4 Assessment/Plan Current Medications Generic Name Dose Route Start Last Admin Trade Name Freq PRN Reason Stop Dose Admin Acetaminophen 650 mg 02/20/18 22:37 02/27/18 11:35 Tylenol - PO 650 mg Q6H PRN Administration FEVER Amino Acids 30 ml 02/20/18 17:30 02/27/18 08:17 Prosource No Carb Liquid Pkt PO 30 ml BID@0800,1730 [facility] Administration Amlodipine Besylate 10 mg 02/20/18 13:03 02/27/18 10:00 Norvasc - PO 10 mg DAILY [facility] Administration Collagenase 1 applic 02/20/18 10:00 02/27/18 10:03 Santyl - TP 1 applic DAILY [facility] Administration Protocol Insulin Aspart 1 vial 02/24/18 09:43 02/27/18 11:28 Novolog Vial Sliding Scale - SQ Not Given ACHS [facility] Protocol Lactobacillus Acidophilus 1 tab 02/20/18 10:00 02/27/18 10:00 Bacid - PO 1 tab DAILY [facility] Administration Metoprolol Tartrate 25 mg 02/20/18 10:00 02/27/18 10:00 Lopressor - PO 25 mg BID [facility] Administration Vancomycin HCl 125 mg 02/20/18 10:00 02/27/18 10:02 Vancomycin Oral Solution PO 125 mg BID [facility] Administration Impression 1. ESRD 2. failed kidney transplant 3. hx DM 4. Hx HTN 5. sacral ulcer 6. post op infection 7. c.diff 8. a-fib 9. failure to thrive 10.malnutrition 11. anemia 12. GI bleed Plan - HD in am - epogen for anemia - encourage PO intake - follow up MRI - sacral wound workup per primary team - cont wound care - will follow Dr Winters
--- NOTE | 2018-02-27 12:34 | PN ---
Physical Exam: SUBJECTIVE: Patient seen and examined at bedside. Complaining of back pain. Per nurse, pt's O2 saturation dropped to 85% this am, went up to 96% on #L NC. Meeting today with Pt's son and medical team, social workers. Plan of care discussed. OBJECTIVE: Vital Signs Period Temp Pulse Resp BP Sys/Franco Pulse Ox Last 24 Hr 97.4 F-98.0 F 68-89 18-18 126-153/60-79 GENERAL: Awake responsive. Facial grimacing 2/2 pain HEAD: NC/AT EYES: PERRLa EOMI ENT: MMM LUNGS: Decreased BS at bases. HEART: RRR ABDOMEN: NTND No HSM EXTREMITIES: Cachexia, muscle atrophy, wasting PSYCH: Normal mood, normal affect. SKIN: Sacral decubitus ulcer, no probing to bone. Laboratory Results - last 24 hr 02/26/18 02/26/18 02/26/18 14:09 16:45 23:24 POC Glucometer 119 170 89 02/27/18 02/27/18 06:43 11:17 POC Glucometer 70 110 Active Medications Generic Name Dose Route Start Last Admin Trade Name Freq PRN Reason Stop Dose Admin Acetaminophen 650 mg 02/20/18 22:37 02/27/18 11:35 Tylenol - PO 650 mg Q6H PRN Administration FEVER Albumin Human 12.5 gm 02/28/18 12:00 Albumin Human 25% IVPB Q30M [facility] Amino Acids 30 ml 02/20/18 17:30 02/27/18 08:17 Prosource No Carb Liquid Pkt PO 30 ml BID@0800,1730 [facility] Administration Amlodipine Besylate 10 mg 02/20/18 13:03 02/27/18 10:00 Norvasc - PO 10 mg DAILY [facility] Administration Collagenase 1 applic 02/20/18 10:00 02/27/18 10:03 Santyl - TP 1 applic DAILY [facility] Administration Protocol Epoetin Abe 10,000 unit 02/28/18 11:51 Epogen - IVPUSH 02/28/18 11:52 ONCE ONE Sodium Chloride 250 mls @ 3,000 mls/hr 02/27/18 11:51 Normal Saline - IV 02/28/18 11:51 PRN PRN Hypotension during Dialysis Insulin Aspart 1 vial 02/24/18 09:43 02/27/18 11:28 Novolog Vial Sliding Scale - SQ Not Given ACHS [facility] Protocol Lactobacillus Acidophilus 1 tab 02/20/18 10:00 02/27/18 10:00 Bacid - PO 1 tab DAILY [facility] Administration Metoprolol Tartrate 25 mg 02/20/18 10:00 02/27/18 10:00 Lopressor - PO 25 mg BID [facility] Administration Vancomycin HCl 125 mg 02/20/18 10:00 02/27/18 10:02 Vancomycin Oral Solution PO 125 mg BID [facility] Administration ASSESSMENT/PLAN: Patient is a 77 year old female with history of ESRD on HD Mon, Wed, Sun, s/p kidney transplant 10/08, diabetes mellitus, hypertension, Afib not on anticoagulation due to GI bleed on prior admission, recently discharged from [facility], presents for complaint of sacral ulcer, requiring wound care. Stage IV sacral decubitus ulcer -Surgery--> Santyl to sacrum daily, Alleven over sacrum, Alleven over b/l heels , Offload pressure areas with frequent repositioning, - MRI of Lumbar spine and Pelvis ---> "Osteomyelitis cannot be excluded 02/20/18 " 3 phase bone scan to r/o osteo NOT DONE. Per ID, low clinical suspicion -02/25/18 ID and Hospitalist discussed treatment with family this afternoon. Will do CT Pelvis tomorrow. Bone biopsy not recommended at this time. Low clinical suspicion for osteomyelitis. Radiology re-evaluated imaging with ID and concur osteo very unlikely in light of recent imaging studies. 02/26/18 CT Abd/Pelvis--> No CT Evidence of osteomyelitis. Meeting today, 02/27/18, with medical lead, social workers, risk assesment for plan of action and next step moving forward. ESRD on hemodialysis -Nephrology-Dr Winters on board. HD done today 02/26/18--> 2.00 KG WT REMOVED. - Permacath drawn blood cultures--NO GROWTH - Wound culture--Proteus species, MRSA, VR EC F -Blood cultures 02/25 Negative -Stool studies C. Difficile infection -ID On board. Recommends following: decrease to daily now for 7 days the po vancomycin 125 mg every 2 days for another month then every 3 days for another month. -Contact precautions Atrial fibrillation -Lopressor 25 po bid -No AC at this time Hypertension -Continue Norvasc 10 mg PO daily Malnutrition -F/U repacker consult -- Spoke with Payroll Coordinator today. Recommends following: -Banatrol Prosource 3 times per day -Consider Marinol for appetite . FEN No IV fluids Follow CMP Renal, sodium controlled, diabetic diet. Prophylaxis -SCDs, TEDs b/l lower extremities Disposition -Upgrade to inpatient Visit type - Emergency Visit Emergency Visit: Yes ED Registration Date: 02/19/18 Care time: The patient presented to the Emergency Department on the above date and was hospitalized for further evaluation of their emergent condition. - New Patient This patient is new to me today: No - Critical Care Critical Care patient: No - Discharge Referral Referred to [facility] Med P.C.: No
--- NOTE | 2018-02-27 13:54 | PN ---
Progress Note (short form) - Note Progress Note: seen in her room resting comfortably Vital Signs Period Temp Pulse Resp BP Sys/Franco Pulse Ox Last 24 Hr 97.4 F-98.0 F 68-86 18-18 134-153/60-79 cor-rrr lungs decreased bs at bases abd soft,nt ext no edema CBC, BMP 02/26/18 10:40 02/26/18 10:40 repeat cxray after HD with smaller right pleural effusion, ?atelectasis pelvic ct and mri- no ostoemyelitis a/p sacral ulcer- needs good wound care and nutrition currently no evidence of osteomyelitis family is aware that her overall status is poor at best cxray c/w volume overload- improved after hd history of cdiff- on slow vancomycin taper, decrease to daily now for 7 days the po vancomycin 125 mg every 2 days for another month then every 3 days for another month esrd/hd anemia continue contact isolation wound care per surgery no need to treat ulcer wound culture at this time with antibiotics' please call back if needed Problem List - Problems (1) Sacral decubitus ulcer Code(s): L89.159 - PRESSURE ULCER OF SACRAL REGION, UNSPECIFIED STAGE Qualifiers: Pressure injury stage: stage 4 Qualified Code(s): L89.154 - Pressure ulcer of sacral region, stage 4 (2) ESRD (end stage renal disease) on dialysis Code(s): N18.6 - END STAGE RENAL DISEASE; Z99.2 - DEPENDENCE ON RENAL DIALYSIS (3) C. difficile colitis Code(s): A04.72 - ENTEROCOLITIS D/T CLOSTRIDIUM DIFFICILE, NOT SPCF RECUR (4) History of ESBL E. coli infection Code(s): Z86.19 - PERSONAL HISTORY OF OTHER INFECTIOUS AND PARASITIC DISEASES
[2018-02-27] MEDS ORDERED: PT OWN MED DRAWER 7, Y5N ONE ×2 (16:45→22:51)
--- NOTE | 2018-02-27 17:43 | PN ---
Teaching Attending Note Name of Resident: Fernando Ricci ATTENDING PHYSICIAN STATEMENT I saw and evaluated the patient. I reviewed the resident's note and discussed the case with the resident. I agree with the resident's findings and plan as documented. SUBJECTIVE: OBJECTIVE: Vital Signs Period Temp Pulse Resp BP Sys/Franco Pulse Ox Last 24 Hr 97.4 F-98.3 F 68-76 18-18 139-153/60-83 96 Laboratory Results - last 24 hr 02/26/18 02/27/18 02/27/18 23:24 06:43 11:17 POC Glucometer 89 70 110 02/27/18 16:36 POC Glucometer 82 Current Medications Generic Name Dose Route Start Last Admin Trade Name Freq PRN Reason Stop Dose Admin Acetaminophen 650 mg 02/20/18 22:37 02/27/18 11:35 Tylenol - PO 650 mg Q6H PRN Administration FEVER Albumin Human 12.5 gm 02/28/18 12:00 Albumin Human 25% IVPB Q30M [facility] Amino Acids 30 ml 02/20/18 17:30 02/27/18 17:28 Prosource No Carb Liquid Pkt PO 30 ml BID@0800,1730 [facility] Administration Amlodipine Besylate 10 mg 02/20/18 13:03 02/27/18 10:00 Norvasc - PO 10 mg DAILY [facility] Administration Collagenase 1 applic 02/20/18 10:00 02/27/18 10:03 Santyl - TP 1 applic DAILY [facility] Administration Protocol Epoetin Abe 10,000 unit 02/28/18 11:51 Epogen - IVPUSH 02/28/18 11:52 ONCE ONE Sodium Chloride 250 mls @ 3,000 mls/hr 02/27/18 11:51 Normal Saline - IV 02/28/18 11:51 PRN PRN Hypotension during Dialysis Insulin Aspart 1 vial 02/24/18 09:43 02/27/18 17:28 Novolog Vial Sliding Scale - SQ Not Given ACHS [facility] Protocol Lactobacillus Acidophilus 1 tab 02/20/18 10:00 02/27/18 10:00 Bacid - PO 1 tab DAILY [facility] Administration Metoprolol Tartrate 25 mg 02/20/18 10:00 02/27/18 10:00 Lopressor - PO 25 mg BID [facility] Administration Vancomycin HCl 125 mg 02/20/18 10:00 02/27/18 10:02 Vancomycin Oral Solution PO 125 mg BID [facility] Administration ASSESSMENT AND PLAN:
[2018-02-27] MEDS: BANATROL PLUS POWDER PACKET PO SCH (22:59)
[2018-02-28] MEDS: INSULIN SLIDING SCALE (NOVOLOG) 1 VIAL SQ SCH ×4 (06:31→22:44)
[2018-02-28] MEDS: AMINO ACIDS/PROTEIN HYDROLYS 30 ML LIQUID.PKT PO SCH ×3 (06:31→22:44)
[2018-02-28] MEDS: BANATROL PLUS POWDER PACKET PO SCH ×3 (06:31→22:44)
[2018-02-28] MEDS ORDERED: PT OWN MED DRAWER 7, Y5N ONE ×3 (10:09→20:52)
[2018-02-28] MEDS: VANCOMYCIN 250 MG/5 ML ORAL SOLUTION PO SCH ×2 (10:15→23:00)
[2018-02-28] MEDS: METOPROLOL TARTRATE 25 MG TABLET (FP) PO SCH ×2 (10:15→22:44)
[2018-02-28] MEDS: LACTOBACILLUS ACIDOPHILUS 1 TABLET PO SCH (10:16)
[2018-02-28] MEDS: COLLAGENASE CLOSTRIDIUM HIST. 30 GRAMS TUBE TP SCH (10:16)
--- NOTE | 2018-02-28 10:37 | PN ---
Physical Exam: SUBJECTIVE: Patient seen and examined at bedside. Complaining of back pain at ulcer site. Underwent dialysis today 2kgs fluid removal. Had urinary retention overnight. Bladder scan done reveals a retention of 381 ml urine. OBJECTIVE: Vital Signs Period Temp Pulse Resp BP Sys/Franco Pulse Ox Last 24 Hr 97.9 F-98.8 F 64-77 16-18 141-146/65-95 96-99 GENERAL: Awake, lethargic. HEAD: NC/AT EYES: EOMI, PERRLA LUNGS: Dec at bases, Rhonchi b/l HEART: RRR no MRG S1S2 ABDOMEN: Suprapubic tenderness EXTREMITIES: 2+ pulses, warm, well-perfused, no edema. PSYCH: Normal mood, normal affect. SKIN: Sacral Decubitus ulcer. Laboratory Results - last 24 hr 02/27/18 02/27/18 02/27/18 11:17 16:36 22:57 POC Glucometer 110 82 100 02/28/18 06:29 POC Glucometer 84 Active Medications Generic Name Dose Route Start Last Admin Trade Name Freq PRN Reason Stop Dose Admin Acetaminophen 650 mg 02/20/18 22:37 02/27/18 11:35 Tylenol - PO 650 mg Q6H PRN Administration FEVER Albumin Human 12.5 gm 02/28/18 12:00 Albumin Human 25% IVPB Q30M [facility] Amino Acids 30 ml 02/27/18 22:00 02/28/18 06:31 Prosource No Carb Liquid Pkt PO 30 ml TID [facility] Administration Amlodipine Besylate 10 mg 02/20/18 13:03 02/27/18 10:00 Norvasc - PO 10 mg DAILY [facility] Administration Collagenase 1 applic 02/20/18 10:00 02/28/18 10:16 Santyl - TP 1 applic DAILY [facility] Administration Protocol Epoetin Abe 10,000 unit 02/28/18 11:51 Epogen - IVPUSH 02/28/18 11:52 ONCE ONE Sodium Chloride 250 mls @ 3,000 mls/hr 02/27/18 11:51 Normal Saline - IV 02/28/18 11:51 PRN PRN Hypotension during Dialysis Insulin Aspart 1 vial 02/24/18 09:43 02/28/18 06:31 Novolog Vial Sliding Scale - SQ Not Given ACHS [facility] Protocol Lactobacillus Acidophilus 1 tab 02/20/18 10:00 02/28/18 10:16 Bacid - PO 1 tab DAILY [facility] Administration Metoprolol Tartrate 25 mg 02/20/18 10:00 02/28/18 10:15 Lopressor - PO 25 mg BID [facility] Administration Vancomycin HCl 125 mg 02/20/18 10:00 02/28/18 10:15 Vancomycin Oral Solution PO 125 mg BID [facility] Administration ASSESSMENT/PLAN: Patient is a 77 year old female with history of ESRD on HD Mon, Wed, Sun, s/p kidney transplant 10/08, diabetes mellitus, hypertension, Afib not on anticoagulation due to GI bleed on prior admission, recently discharged from [facility], presents for complaint of sacral ulcer, requiring wound care. Stage IV sacral decubitus ulcer -Surgery--> Santyl to sacrum daily, Alleven over sacrum, Alleven over b/l heels , Offload pressure areas with frequent repositioning, - MRI of Lumbar spine and Pelvis ---> "Osteomyelitis cannot be excluded 02/20/18 " 3 phase bone scan to r/o osteo NOT DONE. Per ID, low clinical suspicion -02/25/18 ID and Hospitalist discussed treatment with family this afternoon. Will do CT Pelvis tomorrow. Bone biopsy not recommended at this time. Low clinical suspicion for osteomyelitis. Radiology re-evaluated imaging with ID and concur osteo very unlikely in light of recent imaging studies. - Pt's pain unrelenting to Tylenol. Morphine 10 mg/5ml liquid Q6H PRN Pain 02/26/18 CT Abd/Pelvis--> No CT Evidence of osteomyelitis. Meeting 02/27/18, with medical attendant, social workers, risk assesment for plan of action and next step moving forward. # Right Base infiltrate -Chest XRAY 02/28/18- Right pulmonary and pleural changes have increased. There is progressive fluid with infiltrate. -Pt afebrile, no WBC however pt may not be able to mount white count. *Discussed with ID, will give PO Augmentin tonight and likely start IV antibiotics tomorrow with dialysis. Discussed with renal about possibility of starting dialysis tomorrow for IV antibiotic coverage. Marvel Chris was called for update, was unable to reach. Will attempt again tomorrow. ESRD on hemodialysis -Nephrology-Dr Winters on board. HD done today 02/28/18--> 2.00 KG WT REMOVED. - Permacath drawn blood cultures--NO GROWTH - Wound culture--Proteus species, MRSA, VR EC F -Blood cultures 02/25 Negative -Stool studies C. Difficile infection -ID On board. Recommends following: decrease to daily now for 6 days the po vancomycin 125 mg every 2 days for another month then every 3 days for another month. -Contact precautions Atrial fibrillation -Lopressor 25 po bid -No AC at this time Hypertension -Continue Norvasc 10 mg PO daily Malnutrition -Spoke with National Van Truck Driver today. Recommends following: -Banatrol -Prosource 3 times per day -Consider Marinol for appetite . FEN No IV fluids Follow CMP Renal, sodium controlled, diabetic diet. Prophylaxis -SCDs, TEDs b/l lower extremities Disposition- Med-Surg Visit type - Emergency Visit Emergency Visit: Yes ED Registration Date: 02/27/18 Care time: The patient presented to the Emergency Department on the above date and was hospitalized for further evaluation of their emergent condition. - New Patient This patient is new to me today: No - Critical Care Critical Care patient: No - Discharge Referral Referred to [facility] Med P.C.: No
[2018-02-28 11:53] LABS: HEMATOCRIT 23.5 % (32.4-45.2); HEMOGLOBIN 7.5 GM/dL (10.7-15.3); MCH 30.8 pg (25.7-33.7); MCHC 31.9 g/dl (32.0-36.0); MEAN CELL VOLUME 96.6 fl (80-96); MEAN PLT VOLUME 8.6 fl (7.5-11.1); PLATELET COUNT 227 K/MM3 (134-434); RBC 2.43 M/mm3 (3.60-5.2); RDW 17.2 % (11.6-15.6); WHITE BLOOD COUNT 6.3 K/mm3 (4.0-10.0)
[2018-02-28] MEDS: amLODIPine BESYLATE 10 MG TABLET (FP) PO SCH (11:55)
[2018-02-28] MEDS: ALBUMIN HUMAN 25% 12.5 GM/50 ML VIAL IVPB SCH ×4 (12:00→13:30)
[2018-02-28 12:14] LABS: ANION GAP 9 MMOL/L (8-16); BLOOD UREA NITROGEN 47 mg/dL (7-18); CHLORIDE 101 mmol/L (98-107); CO2 30 mmol/L (21-32); GLUCOSE,RANDOM 106 mg/dL (74-106); POTASSIUM 3.8 mmol/L (3.5-5.1); SODIUM 140 mmol/L (136-145)
[2018-02-28] MEDS ORDERED: EPOETIN ALFA 10,000 UNIT/1 ML VIAL IVPUSH ONE (12:30)
--- NOTE | 2018-02-28 12:49 | PN ---
Teaching Attending Note Name of Resident: Fernando Ricci ATTENDING PHYSICIAN STATEMENT I saw and evaluated the patient. I reviewed the resident's note and discussed the case with the resident. I agree with the resident's findings and plan as documented. SUBJECTIVE: OBJECTIVE: Vital Signs Period Temp Pulse Resp BP Sys/Franco Pulse Ox Last 24 Hr 97.9 F-98.8 F 64-77 16-18 127-146/63-95 96-99 Laboratory Results - last 24 hr 02/27/18 02/27/18 02/28/18 16:36 22:57 06:29 WBC RBC Hgb Hct MCV MCH MCHC RDW Plt Count MPV Sodium Potassium Chloride Carbon Dioxide Anion Gap BUN Creatinine Creat Clearance w eGFR POC Glucometer 82 100 84 Random Glucose Calcium 02/28/18 02/28/18 02/28/18 11:20 11:20 11:53 WBC 6.3 RBC 2.43 L Hgb 7.5 L Hct 23.5 L MCV 96.6 H MCH 30.8 MCHC 31.9 L RDW 17.2 H Plt Count 227 MPV 8.6 Sodium 140 Potassium 3.8 Chloride 101 Carbon Dioxide 30 Anion Gap 9 BUN 47 H Creatinine 3.0 H Creat Clearance w eGFR 15.09 POC Glucometer 151 Random Glucose 106 Calcium 8.0 L Current Medications Generic Name Dose Route Start Last Admin Trade Name Freq PRN Reason Stop Dose Admin Acetaminophen 650 mg 02/20/18 22:37 02/27/18 11:35 Tylenol - PO 650 mg Q6H PRN Administration FEVER Albumin Human 12.5 gm 02/28/18 12:00 Albumin Human 25% IVPB 02/28/18 13:31 Q30M [facility] Amino Acids 30 ml 02/27/18 22:00 02/28/18 06:31 Prosource No Carb Liquid Pkt PO 30 ml TID [facility] Administration Amlodipine Besylate 10 mg 02/20/18 13:03 02/28/18 11:55 Norvasc - PO 10 mg DAILY [facility] Administration Collagenase 1 applic 02/20/18 10:00 02/28/18 10:16 Santyl - TP 1 applic DAILY [facility] Administration Protocol Sodium Chloride 250 mls @ 3,000 mls/hr 02/27/18 11:51 Normal Saline - IV 02/28/18 18:00 PRN PRN Hypotension during Dialysis Insulin Aspart 1 vial 02/24/18 09:43 02/28/18 06:31 Novolog Vial Sliding Scale - SQ Not Given ACHS [facility] Protocol Lactobacillus Acidophilus 1 tab 02/20/18 10:00 02/28/18 10:16 Bacid - PO 1 tab DAILY [facility] Administration Metoprolol Tartrate 25 mg 02/20/18 10:00 02/28/18 10:15 Lopressor - PO 25 mg BID [facility] Administration Vancomycin HCl 125 mg 02/20/18 10:00 02/28/18 10:15 Vancomycin Oral Solution PO 125 mg BID [facility] Administration ASSESSMENT AND PLAN:
[2018-02-28] MEDS ORDERED: morphine SULFATE 4 MG/ML VIAL IVPUSH PRN (13:33)
--- NOTE | 2018-02-28 14:48 | CONSULT ---
Admitting History and Physical - Admission History of Present Illness: Seen during last admission:02/14 note Pt on reg diet/thin liquid since 02/08. Pt's son reports congestion, cough, expectorating thick phlegm. Good vocal quality. Swallow reassessed without responsive cough to 3 oz water test. Pt does have a cough before and after po trials. Case reviewed with nursing. Etiology of congestion? Silent aspiration can not be r/o at bedside.Last CXR . WBC/Temp ok. [id number] cxray after HD with smaller right pleural effusion, ? atelectasis sacral ulcer- needs good wound care and nutrition currently no evidence of osteomyelitis cxray c/w volume overload- improved after hd Poor PO acceptance. Coughing with PO intake and in between. Selected Entries 02/28/18 02/28/18 02/28/18 01:35 06:00 09:40 Breakfast 50% Lunch Temperature 98.1 F 98.8 F 02/28/18 02/28/18 10:00 14:05 Breakfast Lunch 0 Temperature 98.1 F 98.0 F Laboratory Tests 02/28/18 11:20 WBC 6.3 Only accepted a few sips of water, refused lunch, trial of Nepro, took one bite of Magic cup. Pt ate some of breakfast this am. History Source: Medical Record Limitations to Obtaining History: Clinical Condition - Past Medical History Cardiovascular: Yes: HTN, Hyperlipdemia Renal/: Yes: Renal Failure, Renal Inusuff, Hemodialysis ...: No Heme/Onc: Yes: Anemia Infectious Disease: Yes: C-Diff, Other (ecoli esbl wound infection) Endocrine: Yes: Diabetes Mellitus - Past Surgical History Past Surgical History: Yes: Kidney Transplant - Smoking History Smoking history: Unknown if ever smoked Have you smoked in the past 12 months: No - Alcohol/Substance Use Hx Alcohol Use: No - Social History ADL: Family Assistance History of Recent Travel: No History - Admission Reason For Visit: STAGE 4 SKIN ULCER OF SACRAL REGION/END STAGE VEENA - Diagnostics X-ray: Report Reviewed - General Mental Status: Awake and Alert, Able to Follow Commands, Vague (c/o pain. Seems unhappy.) Attention: Intact Ability to Follow Directions: Fair Head/Neck Control: Fair - Hearing Hearing: Normal Speech Evaluation - Communication Primary Language: HEBREW Communication: Yes: Within Normal Limits, Simple Responses - Speech Characteristics Articulation: Yes: Precise - Swallow Evaluation/Bedside Assessment Current Nutritional Intake: Soft, Thin Liquids Facial Symmetry at Rest: Symmetrical Lingual Movement: Symmetric Laryngeal Movement: Able to Palpate Bolus Size: Small Labial Seal: WFL Oral Prep Time: WFL A-P Transit: WFL Timing of Swallow: Delayed Coughing/Throat Clear: Yes (with and without po intake) Recommendations - Speech Evaluation, Impression/Plan Impression: Poor PO acceptance. Coughing with PO intake and in between. CXR noted. Just completed dialysis and sounds congested. Reviewed with Renal. Unlikely fluids. Aspiration? Phlegm/secretions. Suggest MBS to r/o aspiration. - Dysphagia Impressions/Plan Dysphagia Impressions: Ongoing Evaluation *Silent aspiration: cannot be R/O at bedside Recommendations: Modified Barium Swallow - Recommendations Diet Consistency: Dysphagia Whole Medication Administration: Crushed with applesauce Liquids: [place] Thick Supplement: Magic Cup, Ensure Pudding
--- NOTE | 2018-02-28 16:32 | PN ---
Progress Note, Physician History of Present Illness: Pt seen and examined at bedside. She tolerated HD. - Current Medication List Current Medications: Active Medications Acetaminophen (Tylenol -) 650 mg PO Q6H PRN PRN Reason: FEVER Last Admin: 02/27/18 11:35 Dose: 650 mg Amino Acids (Prosource No Carb Liquid Pkt) 30 ml PO TID [facility] Last Admin: 02/28/18 13:35 Dose: 30 ml Amlodipine Besylate (Norvasc -) 10 mg PO DAILY [facility] Last Admin: 02/28/18 11:55 Dose: 10 mg Collagenase (Santyl -) 1 applic TP DAILY [facility]; Protocol Last Admin: 02/28/18 10:16 Dose: 1 applic Sodium Chloride (Normal Saline -) 250 mls @ 3,000 mls/hr IV PRN PRN PRN Reason: Hypotension during Dialysis Stop: 02/28/18 18:00 Insulin Aspart (Novolog Vial Sliding Scale -) 1 vial SQ ACHS [facility]; Protocol Last Admin: 02/28/18 15:31 Dose: Not Given Lactobacillus Acidophilus (Bacid -) 1 tab PO DAILY [facility] Last Admin: 02/28/18 10:16 Dose: 1 tab Metoprolol Tartrate (Lopressor -) 25 mg PO BID [facility] Last Admin: 02/28/18 10:15 Dose: 25 mg Morphine Sulfate (Morphine 10 Mg/5 Ml Liquid) 5 mg PO Q6H PRN PRN Reason: PAIN LEVEL 7 - 10 Vancomycin HCl (Vancomycin Oral Solution) 125 mg PO BID [facility] Last Admin: 02/28/18 10:15 Dose: 125 mg - Objective Vital Signs: Vital Signs Temperature 98.0 F 02/28/18 14:05 Pulse Rate 68 02/28/18 14:50 Respiratory Rate 18 02/28/18 14:50 Blood Pressure 133/67 02/28/18 14:50 O2 Sat by Pulse Oximetry (%) 96 02/28/18 15:00 Constitutional: Yes: Calm Eyes: Yes: Conjunctiva Clear HENT: Yes: Atraumatic Cardiovascular: Yes: S1, S2 Respiratory: Yes: On Nasal O2 Gastrointestinal: Yes: Soft Musculoskeletal: Yes: Muscle Weakness Edema: No Neurological: Yes: Oriented Labs: CBC, BMP 02/28/18 11:20 02/28/18 11:20 Problem List - Problems (1) ESRD (end stage renal disease) on dialysis Code(s): N18.6 - END STAGE RENAL DISEASE; Z99.2 - DEPENDENCE ON RENAL DIALYSIS (2) Sacral decubitus ulcer Code(s): L89.159 - PRESSURE ULCER OF SACRAL REGION, UNSPECIFIED STAGE Qualifiers: Pressure injury stage: stage 4 Qualified Code(s): L89.154 - Pressure ulcer of sacral region, stage 4 Assessment/Plan Current Medications Generic Name Dose Route Start Last Admin Trade Name Freq PRN Reason Stop Dose Admin Acetaminophen 650 mg 02/20/18 22:37 02/27/18 11:35 Tylenol - PO 650 mg Q6H PRN Administration FEVER Amino Acids 30 ml 02/27/18 22:00 02/28/18 13:35 Prosource No Carb Liquid Pkt PO 30 ml TID [facility] Administration Amlodipine Besylate 10 mg 02/20/18 13:03 02/28/18 11:55 Norvasc - PO 10 mg DAILY [facility] Administration Collagenase 1 applic 02/20/18 10:00 02/28/18 10:16 Santyl - TP 1 applic DAILY [facility] Administration Protocol Sodium Chloride 250 mls @ 3,000 mls/hr 02/27/18 11:51 Normal Saline - IV 02/28/18 18:00 PRN PRN Hypotension during Dialysis Insulin Aspart 1 vial 02/24/18 09:43 02/28/18 15:31 Novolog Vial Sliding Scale - SQ Not Given ACHS [facility] Protocol Lactobacillus Acidophilus 1 tab 02/20/18 10:00 02/28/18 10:16 Bacid - PO 1 tab DAILY [facility] Administration Metoprolol Tartrate 25 mg 02/20/18 10:00 02/28/18 10:15 Lopressor - PO 25 mg BID [facility] Administration Morphine Sulfate 5 mg 02/28/18 15:09 Morphine 10 Mg/5 Ml Liquid PO Q6H PRN PAIN LEVEL 7 - 10 Vancomycin HCl 125 mg 02/20/18 10:00 02/28/18 10:15 Vancomycin Oral Solution PO 125 mg BID [facility] Administration Impression 1. ESRD 2. failed kidney transplant 3. hx DM 4. Hx HTN 5. sacral ulcer 6. post op infection 7. c.diff 8. a-fib 9. failure to thrive 10.malnutrition 11. anemia 12. GI bleed Plan - HD today - follow up cxr - swallow eval in progress - sacral wound workup per primary team - cont wound care - will follow Dr Winters
[2018-02-28] MEDS ORDERED: AMOX TR/POT CLAV 875MG/125MG TABLETS (FP) PO ONE (17:30)
[2018-02-28] MEDS: morphine SULFATE 10 MG/5 ML UNIT-DOSE CUP PO PRN ×2 (17:43→22:48)
--- NOTE | 2018-02-28 18:33 | CON.GU ---
Consult - History of Present Illness History of Present Illness: 77 yo female on HD, noted to have elevated pvr on bladder scan. Leon could not be inserted by nursing or house staff - Past Medical History Cardio/Vascular: Yes: HTN, Hyperlipdemia Renal/: Yes: Renal Failure, Renal Inusuff, Hemodialysis ...: No Infectious Disease: Yes: C-Diff, Other (ecoli esbl wound infection) Endocrine: Yes: Diabetes Mellitus - Past Surgical History Past Surgical History: Yes: Kidney Transplant Additional Surgical History: removal of kidney transplant - Alcohol/Substance Use Hx Alcohol Use: No - Smoking History Smoking history: Unknown if ever smoked Have you smoked in the past 12 months: No - Social History Usual Living Arrangement: With Child ADL: Family Assistance History of Recent Travel: No Home Medications - Allergies Allergies/Adverse Reactions: Allergies Allergy/AdvReac Type Severity Reaction Status Date / Time No Known Allergies Allergy Verified 02/18/18 21:53 - Home Medications Home Medications: Ambulatory Orders Lactobacillus Acidophilus [Bacid -] 1 tab PO DAILY #30 tab 02/11/18 Metoprolol Tartrate [Lopressor -] 25 mg PO BID #60 tablet 02/11/18 Vancomycin Oral Solution 125 mg PO Q6HPO #100 ml 02/11/18 Amlodipine Besylate [Norvasc -] 5 mg PO DAILY #30 tablet 02/16/18 Miscellaneous Medical Supply [Glucometer Device] 1 each SQ ASDIR #1 kit Miscellaneous Medical Supply [Glucometer Test Strips #50] 1 each SQ ASDIR #1 box 02/16/18 Miscellaneous Medical Supply [Lancets] 1 each SQ ASDIR #1 box 02/16/18 Miscellaneous Medical Supply [Outpatient Order] 1 each MC ASDIR #1 misc Amino Acids/Protein Hydrolys [Prosource No Carb Liquid Pkt] 30 ml PO BID #10 liquid.pkt 02/22/18 Amino Acids/Protein Hydrolys [Prosource No Carb Liquid Pkt] 30 ml PO BID #30 liquid.pkt 02/22/18 Amlodipine Besylate [Norvasc -] 10 mg PO DAILY #30 tablet 02/22/18 Collagenase Clostridium Hist. [Santyl] 1 bottle TP DAILY #5 oint...g. 02/22/18 Gauze Bandage [Gauze] 1 box TP DAILY #5 bandage 02/22/18 Gauze Bandage [Gauze] 1 each TP DAILY #30 bandage 02/22/18 Nut.tx.imp.renal Fxn,Lac-Reduc [Nepro Carb Steady] 237 ml PO DAILY #30 liquid Nut.tx.imp.renal Fxn,Lac-Reduc [Nepro Carb Steady] 237 ml PO DAILY #30 liquid Review of Systems - Review of Systems Genitourinary: reports: Other (retention) Physical Exam- Vital Signs: Vital Signs Temperature 98.0 F 02/28/18 14:05 Pulse Rate 68 02/28/18 14:50 Respiratory Rate 18 02/28/18 14:50 Blood Pressure 133/67 02/28/18 14:50 O2 Sat by Pulse Oximetry (%) 96 02/28/18 15:00 Renal/: Yes: Other (retention) Labs: CBC, BMP 02/28/18 11:20 02/28/18 11:20 Assessment/Plan urinary retention leon inserted august d/c leon when no lnger medically necessary for output measurement
[2018-03-01] MEDS: INSULIN SLIDING SCALE (NOVOLOG) 1 VIAL SQ SCH ×4 (06:17→22:25)
[2018-03-01] MEDS ORDERED: CEFTAZIDIME PENTAHYDRATE 2 GM in DEXTROSE 5%-WATER - 100 ML IVPB ONE (09:43)
[2018-03-01] MEDS ORDERED: VANCOMYCIN 1 GRAM (PRE-DOCKED) 1,000 MG/250 ML BAG IVPB ONE ×2 (09:46→15:45)
--- NOTE | 2018-03-01 10:26 | PN ---
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 Coughing with PO intake and in between. - Dysphagia Impressions/Plan Dysphagia Impressions: Ongoing Evaluation *Silent aspiration: cannot be R/O at bedside Recommendations: Modified Barium Swallow - Recommendations Diet Consistency: Dysphagia Whole Medication Administration: Crushed with applesauce Liquids: [place] Thick Supplement: Magic Cup, Ensure Pudding MBS Sunday, if stronger and accepting PO/cooperative.
[2018-03-01] MEDS: VANCOMYCIN 250 MG/5 ML ORAL SOLUTION PO SCH ×2 (10:35→22:26)
[2018-03-01] MEDS: AMINO ACIDS/PROTEIN HYDROLYS 30 ML LIQUID.PKT PO SCH ×3 (10:35→22:26)
[2018-03-01] MEDS: LACTOBACILLUS ACIDOPHILUS 1 TABLET PO SCH (10:35)
[2018-03-01] MEDS: METOPROLOL TARTRATE 25 MG TABLET (FP) PO SCH ×2 (10:35→22:25)
[2018-03-01] MEDS: amLODIPine BESYLATE 10 MG TABLET (FP) PO SCH (10:35)
[2018-03-01] MEDS: BANATROL PLUS POWDER PACKET PO SCH ×3 (10:35→22:24)
[2018-03-01] MEDS: COLLAGENASE CLOSTRIDIUM HIST. 30 GRAMS TUBE TP SCH (15:02)
[2018-03-01] MEDS ORDERED: PT OWN MED DRAWER 7, Y5N ONE ×2 (15:30→21:12)
--- NOTE | 2018-03-01 15:33 | PN ---
Progress Note (short form) - Note Progress Note: seen in her room resting comfortably asked to f/u by primary service abnormal cxray increasing right effusion/infiltrate despite HD no fever Vital Signs Period Temp Pulse Resp BP Sys/Franco Pulse Ox Last 24 Hr 98.0 F-99.6 F 70-87 18-22 115-153/56-86 95-99 cor-rrr lungs decreased bs at bases abd soft,nt ext no edema CBC, BMP 02/28/18 11:20 02/28/18 11:20 repeat cxray after HD with larger right pleural effusion, infiltrate pelvic ct and mri- no ostoemyelitis a/p ?pnemonia-+effusion despite HD consider thoracentesis vancomycin/fortaz with HD today- no IV access can redose Sunday sacral ulcer- needs good wound care and nutrition currently no evidence of osteomyelitis family is aware that her overall status is poor at best cxray c/w volume overload- improved after hd history of cdiff- on slow vancomycin taper, decrease to daily now for 7 days the po vancomycin 125 mg every 2 days for another month then every 3 days for another month esrd/hd anemia continue contact isolation wound care per surgery d/w resident Dr Lauri aguayo Problem List - Problems (1) Sacral decubitus ulcer Code(s): L89.159 - PRESSURE ULCER OF SACRAL REGION, UNSPECIFIED STAGE Qualifiers: Pressure injury stage: stage 4 Qualified Code(s): L89.154 - Pressure ulcer of sacral region, stage 4 (2) ESRD (end stage renal disease) on dialysis Code(s): N18.6 - END STAGE RENAL DISEASE; Z99.2 - DEPENDENCE ON RENAL DIALYSIS (3) C. difficile colitis Code(s): A04.72 - ENTEROCOLITIS D/T CLOSTRIDIUM DIFFICILE, NOT SPCF RECUR (4) History of ESBL E. coli infection Code(s): Z86.19 - PERSONAL HISTORY OF OTHER INFECTIOUS AND PARASITIC DISEASES
--- NOTE | 2018-03-01 15:35 | PN ---
Progress Note, Physician History of Present Illness: Pt seen and examined at bedside. She is awake and appears comfortable. - Current Medication List Current Medications: Active Medications Acetaminophen (Tylenol -) 650 mg PO Q6H PRN PRN Reason: FEVER Last Admin: 02/27/18 11:35 Dose: 650 mg Amino Acids (Prosource No Carb Liquid Pkt) 30 ml PO TID [facility] Last Admin: 03/01/18 15:02 Dose: Not Given Amlodipine Besylate (Norvasc -) 10 mg PO DAILY [facility] Last Admin: 03/01/18 10:35 Dose: Not Given Collagenase (Santyl -) 1 applic TP DAILY [facility]; Protocol Last Admin: 03/01/18 15:02 Dose: 1 applic Epoetin Abe (Procrit -) 10,000 unit IVPUSH ONCE ONE Stop: 03/01/18 10:32 Sodium Chloride (Normal Saline -) 250 mls @ 3,000 mls/hr IV PRN PRN PRN Reason: Hypotension during Dialysis Stop: 03/02/18 10:32 Insulin Aspart (Novolog Vial Sliding Scale -) 1 vial SQ ACHS [facility]; Protocol Last Admin: 03/01/18 12:24 Dose: Not Given Lactobacillus Acidophilus (Bacid -) 1 tab PO DAILY [facility] Last Admin: 03/01/18 10:35 Dose: Not Given Metoprolol Tartrate (Lopressor -) 25 mg PO BID [facility] Last Admin: 03/01/18 10:35 Dose: Not Given Morphine Sulfate (Morphine 10 Mg/5 Ml Liquid) 5 mg PO Q6H PRN PRN Reason: PAIN LEVEL 7 - 10 Last Admin: 02/28/18 22:48 Dose: 5 mg Vancomycin HCl (Vancomycin Oral Solution) 125 mg PO BID [facility] Last Admin: 03/01/18 10:35 Dose: Not Given - Objective Vital Signs: Vital Signs Temperature 99.6 F 03/01/18 13:51 Pulse Rate 82 03/01/18 10:00 Respiratory Rate 20 03/01/18 13:51 Blood Pressure 122/56 L 03/01/18 10:00 O2 Sat by Pulse Oximetry (%) 95 03/01/18 10:00 Constitutional: Yes: Calm Eyes: Yes: Conjunctiva Clear HENT: Yes: Atraumatic Cardiovascular: Yes: S1, S2 Respiratory: Yes: CTA Bilaterally Gastrointestinal: Yes: Soft Genitourinary: Yes: Incontinence Musculoskeletal: Yes: Muscle Weakness Edema: No Neurological: Yes: Oriented Labs: CBC, BMP 02/28/18 11:20 02/28/18 11:20 Problem List - Problems (1) ESRD (end stage renal disease) on dialysis Code(s): N18.6 - END STAGE RENAL DISEASE; Z99.2 - DEPENDENCE ON RENAL DIALYSIS (2) Sacral decubitus ulcer Code(s): L89.159 - PRESSURE ULCER OF SACRAL REGION, UNSPECIFIED STAGE Qualifiers: Qualified Code(s): L89.154 - Pressure ulcer of sacral region, stage 4 Assessment/Plan Current Medications Generic Name Dose Route Start Last Admin Trade Name Freq PRN Reason Stop Dose Admin Acetaminophen 650 mg 02/20/18 22:37 02/27/18 11:35 Tylenol - PO 650 mg Q6H PRN Administration FEVER Amino Acids 30 ml 02/27/18 22:00 03/01/18 15:02 Prosource No Carb Liquid Pkt PO Not Given TID [facility] Amlodipine Besylate 10 mg 02/20/18 13:03 03/01/18 10:35 Norvasc - PO Not Given DAILY [facility] Collagenase 1 applic 02/20/18 10:00 03/01/18 15:02 Santyl - TP 1 applic DAILY [facility] Administration Protocol Epoetin Abe 10,000 unit 03/01/18 10:31 Procrit - IVPUSH 03/01/18 10:32 ONCE ONE Sodium Chloride 250 mls @ 3,000 mls/hr 03/01/18 10:31 Normal Saline - IV 03/02/18 10:32 PRN PRN Hypotension during Dialysis Insulin Aspart 1 vial 02/24/18 09:43 03/01/18 12:24 Novolog Vial Sliding Scale - SQ Not Given ACHS [facility] Protocol Lactobacillus Acidophilus 1 tab 02/20/18 10:00 03/01/18 10:35 Bacid - PO Not Given DAILY [facility]ARP[facility] Metoprolol Tartrate 25 mg 02/20/18 10:00 03/01/18 10:35 Lopressor - PO Not Given BID [facility] Morphine Sulfate 5 mg 02/28/18 15:09 02/28/18 22:48 Morphine 10 Mg/5 Ml Liquid PO 5 mg Q6H PRN Administration PAIN LEVEL 7 - 10 Vancomycin HCl 125 mg 02/20/18 10:00 03/01/18 10:35 Vancomycin Oral Solution PO Not Given BID [facility]ARP[facility] Vancomycin HCl 1,000 mg 03/01/18 15:45 Vancomycin (Pre-Docked) IVPB 03/01/18 15:46 ONCE ONE Protocol Impression 1. ESRD 2. failed kidney transplant 3. hx DM 4. Hx HTN 5. sacral ulcer 6. post op infection 7. c.diff 8. a-fib 9. failure to thrive 10.malnutrition 11. anemia 12. GI bleed 13. PNA Plan - pt does not have IV access, will dialyze today in order to give abx and to get her back on her MWF schedule - hd orders written - abx per ID - sacral wound workup per primary team - cont wound care - will follow Dr Winters
[2018-03-01] MEDS ORDERED: SODIUM CHLORIDE 250 ML IV PRN (16:06)
[2018-03-01] MEDS ORDERED: EPOETIN ALFA 10,000 UNIT/1 ML VIAL IVPUSH ONE (16:15)
--- NOTE | 2018-03-01 16:36 | PN ---
Physical Exam: SUBJECTIVE: Patient refusing to be examined. C/o generalized discomfort. Urology saw last night, german inserted with 150 ml return. HD Today. OBJECTIVE: Vital Signs Period Temp Pulse Resp BP Sys/Franco Pulse Ox Last 24 Hr 98.0 F-99.6 F 70-87 18-22 115-153/56-86 95-99 Pt refused physical exam Laboratory Results - last 24 hr 02/28/18 02/28/18 03/01/18 16:46 22:41 05:50 POC Glucometer 63 103 70 03/01/18 12:07 POC Glucometer 55 Active Medications Generic Name Dose Route Start Last Admin Trade Name Freq PRN Reason Stop Dose Admin Acetaminophen 650 mg 02/20/18 22:37 02/27/18 11:35 Tylenol - PO 650 mg Q6H PRN Administration FEVER Amino Acids 30 ml 02/27/18 22:00 03/01/18 15:02 Prosource No Carb Liquid Pkt PO Not Given TID [facility] Amlodipine Besylate 10 mg 02/20/18 13:03 03/01/18 10:35 Norvasc - PO Not Given DAILY [facility] Collagenase 1 applic 02/20/18 10:00 03/01/18 15:02 Santyl - TP 1 applic DAILY [facility] Administration Protocol Sodium Chloride 250 mls @ 3,000 mls/hr 03/01/18 16:06 Normal Saline - IV 03/02/18 16:05 PRN PRN Hypotension during Dialysis Insulin Aspart 1 vial 02/24/18 09:43 03/01/18 12:24 Novolog Vial Sliding Scale - SQ Not Given ACHS [facility] Protocol Lactobacillus Acidophilus 1 tab 02/20/18 10:00 03/01/18 10:35 Bacid - PO Not Given DAILY [facility] Metoprolol Tartrate 25 mg 02/20/18 10:00 03/01/18 10:35 Lopressor - PO Not Given BID [facility] Morphine Sulfate 5 mg 02/28/18 15:09 02/28/18 22:48 Morphine 10 Mg/5 Ml Liquid PO 5 mg Q6H PRN Administration PAIN LEVEL 7 - 10 Vancomycin HCl 125 mg 02/20/18 10:00 03/01/18 10:35 Vancomycin Oral Solution PO Not Given BID [facility] ASSESSMENT/PLAN: Patient is a 77 year old female with history of ESRD on HD Mon, Wed, Fri, s/p kidney transplant 10/08, diabetes mellitus, hypertension, Afib not on anticoagulation due to GI bleed on prior admission, recently discharged from [facility], presents for complaint of sacral ulcer, requiring wound care. Stage IV sacral decubitus ulcer -Surgery--> Santyl to sacrum daily, Alleven over sacrum, Alleven over b/l heels , Offload pressure areas with frequent repositioning, - MRI of Lumbar spine and Pelvis ---> "Osteomyelitis cannot be excluded 02/20/18 " 3 phase bone scan to r/o osteo NOT DONE. Per ID, low clinical suspicion -02/25/18 ID and Hospitalist discussed treatment with family this afternoon. Bone biopsy not recommended at this time. Low clinical suspicion for osteomyelitis. Radiology re-evaluated imaging with ID and concur osteo very unlikely in light of recent imaging studies. - Pt's pain unrelenting to Tylenol. Morphine 10 mg/5ml liquid Q6H PRN Pain 02/26/18 CT Abd/Pelvis--> No CT Evidence of osteomyelitis. Meeting 02/27/18, with chief medical physicist, social workers, risk assesment for plan of action and next step moving forward. # Right Base infiltrate -Chest XRAY 02/28/18- Right pulmonary and pleural changes have increased. There is progressive fluid with infiltrate. -Pt afebrile, no WBC however pt may not be able to mount white count. -03/01/18 vancomycin/fortaz administered with HD today in light of no I.V access -Legionella urine antigen negative, Strep pneumo urine antigen negative ESRD on hemodialysis -Nephrology-Dr Winters on board. HD done today --> 2.00 KG WT REMOVED. - Permacath drawn blood cultures--NO GROWTH - Wound culture--Proteus species, MRSA, VR EC F -Blood cultures 02/25 Negative -Stool studies C. Difficile infection -ID On board. Recommends following: decrease to daily now for 5 days then po vancomycin 125 mg every 2 days for another month then every 3 days for another month. -Contact precautions Atrial fibrillation -Lopressor 25 po bid -No AC at this time Hypertension -Continue Norvasc 10 mg PO daily Malnutrition -Banatrol -Prosource 3 times per day -Modified Barium Swallow tentative for sunday -Dysphagia Whole, Crushed with applesauce, [place] Thick liquids, Magic Cup, Ensure Pudding #Urinary Retention -Urology on board -German inserted overnight -150 cc urine drained -Continue to monitor urine output FEN No IV fluids Follow CMP Renal, sodium controlled, diabetic diet. Prophylaxis -SCDs, TEDs b/l lower extremities Disposition- Med-Surg Visit type - Emergency Visit Emergency Visit: Yes ED Registration Date: 02/27/18 Care time: The patient presented to the Emergency Department on the above date and was hospitalized for further evaluation of their emergent condition. - New Patient This patient is new to me today: No - Critical Care Critical Care patient: No - Discharge Referral Referred to [facility] Med P.C.: No
[2018-03-01 16:42] LABS: HEMATOCRIT 24.1 % (32.4-45.2); MCH 32.4 pg (25.7-33.7); MCHC 33.4 g/dl (32.0-36.0); MEAN CELL VOLUME 97.1 fl (80-96); MEAN PLT VOLUME 9.1 fl (7.5-11.1); PLATELET COUNT 230 K/MM3 (134-434); RBC 2.48 M/mm3 (3.60-5.2); RDW 17.9 % (11.6-15.6); WHITE BLOOD COUNT 9.6 K/mm3 (4.0-10.0)
--- NOTE | 2018-03-01 16:53 | PN ---
Teaching Attending Note ATTENDING PHYSICIAN STATEMENT I saw and evaluated the patient. I reviewed the resident's note and discussed the case with the resident. I agree with the resident's findings and plan as documented. SUBJECTIVE: She is awake, does not want to communicate but responds properly to the questions asked from her. No complaints at this time OBJECTIVE: multiple pressure ulcers, moves all limbs, very cachectic, just answers some questions. CVS:S1S2, IRregular she does not take deep breath and evaluation for breath sounds is limites bd: soft, NT/ND ext: No edema mutliple pressure ulcers. Last Vital Signs Temp Pulse Resp BP Pulse Ox 99.6 F 86 18 136/61 95 03/01/18 13:51 03/01/18 15:55 03/01/18 15:55 03/01/18 15:55 03/01/18 10:00 CBCD WBC 9.6 K/mm3 (4.0-10.0) 03/01/18 16:00 RBC 2.48 M/mm3 (3.60-5.2) L 03/01/18 16:00 Hgb 8.0 GM/dL (10.7-15.3) L 03/01/18 16:00 Hct 24.1 % (32.4-45.2) L 03/01/18 16:00 MCV 97.1 fl (80-96) H 03/01/18 16:00 MCHC 33.4 g/dl (32.0-36.0) 03/01/18 16:00 RDW 17.9 % (11.6-15.6) H 03/01/18 16:00 Plt Count 230 K/MM3 (134-434) 03/01/18 16:00 MPV 9.1 fl (7.5-11.1) 03/01/18 16:00 CMP Sodium 140 mmol/L (136-145) 02/28/18 11:20 Potassium 3.8 mmol/L (3.5-5.1) 02/28/18 11:20 Chloride 101 mmol/L (98-107) 02/28/18 11:20 Carbon Dioxide 30 mmol/L (21-32) 02/28/18 11:20 Anion Gap 9 MMOL/L (8-16) 02/28/18 11:20 BUN 47 mg/dL (7-18) H 02/28/18 11:20 Creatinine 3.0 mg/dL (0.55-1.3) H 02/28/18 11:20 Creat Clearance w eGFR 15.09 (>60) 02/28/18 11:20 Calcium 8.0 mg/dL (8.5-10.1) L 02/28/18 11:20 Total Bilirubin 0.6 mg/dL (0.2-1) 02/21/18 08:45 AST 26 U/L (15-37) 02/21/18 08:45 ALT 9 U/L (13-61) L 02/21/18 08:45 Alkaline Phosphatase 288 U/L (45-117) H 02/21/18 08:45 Total Protein 6.1 g/dl (6.4-8.2) L 02/21/18 08:45 Albumin 1.5 g/dl (3.4-5.0) L 02/21/18 08:45 ASSESSMENT AND PLAN: 77 yo F W ESRDS on HD, severe malnutrition and cachectia, Afib( not on AC due to diverticular bleeding), HX of cdiff (requiring fecal transplant), P/W multiple pressure ulcers, initially concern for M int he sacral bone which was R /O. multiple pressure ulcers, most likely in the setting of severe malnutrition; will C/W encouraging po intake Malnutrition due to poor PO intake: will rediscuss with GI for PEG placement as she is a goo candidate, she has good mental status and is still getting HD unclear why GI dose not want to place PEG. being followed by nutrition consult ESRDS:c/w HD She has worsening of CXR and per ID as there was concern for aspiration PNA she was started on vanc and zosyn, considering that she has such significant HX of C.Diff I would rather DC the antibiotics but will F/U with ID first. afib: on rate control Cdiff- contact precautions. on tapering dose of vanco. as per last discharge. no active diarrhea noted as she is back on antibioitics she will need to be on vanc po for 14 days after the past dose f antibiotics. R facial brusing- witnessed fall at HD on 02/18. imaging is negative HTN- improved. cont norvasc DVT ppx- EAM/SCD family meeting with son, dinora and . Discuss current status and plan. Agreeable to plan at this time. janie cardenas Will consider palliative care consult on Sunday
[2018-03-01 17:29] LABS: ANION GAP 10 MMOL/L (8-16); BLOOD UREA NITROGEN 36 mg/dL (7-18); CALCIUM 7.9 mg/dL (8.5-10.1); CHLORIDE 101 mmol/L (98-107); CO2 30 mmol/L (22-28); CREATININE 2.5 mg/dL (0.55-1.3); POTASSIUM 3.7 mmol/L (3.5-5.1); SODIUM 141 mmol/L (136-145)
[2018-03-01 17:34] LABS: GLUCOSE,RANDOM 49 mg/dL (74-106)
[2018-03-01] MEDS ORDERED: DEXTROSE 50%-WATER - 25 GM/50 ML VIAL IVPUSH ONE (17:38)
[2018-03-01] MEDS ORDERED: DEXTROSE 50%-WATER - 25 GM/50 ML VIAL ONE (17:56)
[2018-03-02] MEDS: BANATROL PLUS POWDER PACKET PO SCH ×3 (06:04→21:38)
[2018-03-02] MEDS: AMINO ACIDS/PROTEIN HYDROLYS 30 ML LIQUID.PKT PO SCH ×3 (06:04→21:50)
[2018-03-02] MEDS: INSULIN SLIDING SCALE (NOVOLOG) 1 VIAL SQ SCH ×4 (06:05→21:50)
[2018-03-02] MEDS ORDERED: PT OWN MED DRAWER 7, Y5N ONE (09:47)
[2018-03-02] MEDS: METOPROLOL TARTRATE 25 MG TABLET (FP) PO SCH ×2 (10:37→21:39)
[2018-03-02] MEDS: COLLAGENASE CLOSTRIDIUM HIST. 30 GRAMS TUBE TP SCH (10:37)
[2018-03-02] MEDS: amLODIPine BESYLATE 10 MG TABLET (FP) PO SCH (10:37)
[2018-03-02] MEDS: LACTOBACILLUS ACIDOPHILUS 1 TABLET PO SCH (10:37)
[2018-03-02] MEDS: VANCOMYCIN 250 MG/5 ML ORAL SOLUTION PO SCH (10:39)
[2018-03-02] MEDS: morphine SULFATE 10 MG/5 ML UNIT-DOSE CUP PO PRN (11:06)
--- NOTE | 2018-03-02 11:24 | PN ---
Teaching Attending Note Name of Resident: Fernando Ricci ATTENDING PHYSICIAN STATEMENT I saw and evaluated the patient. I reviewed the resident's note and discussed the case with the resident. I agree with the resident's findings and plan as documented. SUBJECTIVE: OBJECTIVE: ASSESSMENT AND PLAN: Patient is a 77 year old female with history of ESRD on HD Mon, Wed, Fri, s/p kidney transplant 10/08, diabetes mellitus, hypertension, Afib not on anticoagulation due to GI bleed on prior admission, recently discharged from [facility], presents for complaint of sacral ulcer, requiring wound care. Stage IV sacral decubitus ulcer -Surgery--> Santyl to sacrum daily, Alleven over sacrum, Alleven over b/l heels , Offload pressure areas with frequent repositioning, - MRI of Lumbar spine and Pelvis ---> "Osteomyelitis cannot be excluded 02/20/18 " 3 phase bone scan to r/o osteo NOT DONE. Per ID, low clinical suspicion -02/25/18 ID and Hospitalist discussed treatment with family this afternoon. Bone biopsy not recommended at this time. Low clinical suspicion for osteomyelitis. Radiology re-evaluated imaging with ID and concur osteo very unlikely in light of recent imaging studies. - Pt's pain unrelenting to Tylenol. Morphine 10 mg/5ml liquid Q6H PRN Pain 02/26/18 CT Abd/Pelvis--> No CT Evidence of osteomyelitis. Meeting 02/27/18, with esthetician and manager medical spa, social workers, risk assesment for plan of action and next step moving forward. Right Base infiltrate - stable without any fever -03/01/18 vancomycin/fortaz administered with HD today in light of no I.V access ESRD on hemodialysis - Permacath drawn blood cultures--NO GROWTH C. Difficile infection -vancomycin 125 mg every 2 days per ID recommendation then every 3 days for another month. -Contact precautions Atrial fibrillation -rate control with metprolol 25mg twice a day NOT ON ANTICOAGULATION DUE TO HISTORY OF GI BLEEDING Hypertension -Continue amlodipine 10 mg PO daily Malnutrition -Banatrol -Prosource 3 times per day -Dysphagia Whole, Crushed with applesauce, [place] Thick liquids, Magic Cup, Ensure Pudding #Urinary Retention -Urology on board -German inserted overnight -150 cc urine drained FEN No IV fluids Follow CMP Renal, sodium controlled, diabetic diet. Prophylaxis -SCDs, TEDs b/l lower extremities
--- NOTE | 2018-03-02 11:48 | PN ---
Physical Exam: SUBJECTIVE: Patient seen and examined at bedside. C/o itching over body. Responds to questions appropriately. Denies chest pain or shortness of breath. Agitated overnight, refused all hs meds. Spoke with son Aries this morning at bedside regarding pt's status. OBJECTIVE: Vital Signs Period Temp Pulse Resp BP Sys/Franco Pulse Ox Last 24 Hr 97.8 F-99.6 F 71-94 18-20 101-140/50-90 95 GENERAL: Resting in bed, responds to questions appropriately HEAD: NC/AT. EYES: EOMI PERRLA ENT:MMM LUNGS: Upper airway rhonchi, CTA b/l HEART: Regular rate and rhythm, S1, S2 without murmur, rub or gallop. ABDOMEN: Soft, n/d n/t, EXTREMITIES: Cachexia, muscle atrophy all 4 extremities. PSYCH: Normal mood, normal affect. SKIN: Sacral ulcer examined this morning with Dr Chen. Sloughing appreciated. Laboratory Results - last 24 hr 03/01/18 03/01/18 03/01/18 12:07 16:00 16:00 WBC 9.6 RBC 2.48 L Hgb 8.0 L Hct 24.1 L MCV 97.1 H MCH 32.4 MCHC 33.4 RDW 17.9 H Plt Count 230 MPV 9.1 Sodium 141 Potassium 3.7 Chloride 101 Carbon Dioxide 30 H Anion Gap 10 BUN 36 H Creatinine 2.5 H Creat Clearance w eGFR 18.63 POC Glucometer 55 Random Glucose 49 L* Calcium 7.9 L 03/02/18 03/02/18 03/02/18 01:11 05:56 09:07 WBC RBC Hgb Hct MCV MCH MCHC RDW Plt Count MPV Sodium Potassium Chloride Carbon Dioxide Anion Gap BUN Creatinine Creat Clearance w eGFR POC Glucometer 71 151 85 Random Glucose Calcium Active Medications Generic Name Dose Route Start Last Admin Trade Name Freq PRN Reason Stop Dose Admin Acetaminophen 650 mg 02/20/18 22:37 02/27/18 11:35 Tylenol - PO 650 mg Q6H PRN Administration FEVER Amino Acids 30 ml 02/27/18 22:00 03/02/18 06:04 Prosource No Carb Liquid Pkt PO Not Given TID [facility] Amlodipine Besylate 10 mg 02/20/18 13:03 03/02/18 10:37 Norvasc - PO 10 mg DAILY [facility] Administration Collagenase 1 applic 02/20/18 10:00 03/02/18 10:37 Santyl - TP 1 applic DAILY [facility] Administration Protocol Sodium Chloride 250 mls @ 3,000 mls/hr 03/01/18 16:06 Normal Saline - IV 03/02/18 16:05 PRN PRN Hypotension during Dialysis Insulin Aspart 1 vial 02/24/18 09:43 03/02/18 06:05 Novolog Vial Sliding Scale - SQ Not Given ACHS [facility] Protocol Lactobacillus Acidophilus 1 tab 02/20/18 10:00 03/02/18 10:37 Bacid - PO 1 tab DAILY [facility] Administration Metoprolol Tartrate 25 mg 02/20/18 10:00 03/02/18 10:37 Lopressor - PO 25 mg BID [facility] Administration Morphine Sulfate 5 mg 02/28/18 15:09 03/02/18 11:06 Morphine 10 Mg/5 Ml Liquid PO 5 mg Q6H PRN Administration PAIN LEVEL 7 - 10 Vancomycin HCl 125 mg 02/20/18 10:00 03/02/18 10:39 Vancomycin Oral Solution PO 125 mg BID [facility] Administration ASSESSMENT/PLAN: Patient is a 77 year old female with history of ESRD on HD Mon, Wed, Sun, s/p kidney transplant 10/08, diabetes mellitus, hypertension, Afib not on anticoagulation due to GI bleed on prior admission, recently discharged from [facility], presents for complaint of sacral ulcer, requiring wound care. Stage IV sacral decubitus ulcer -Surgery--> Santyl to sacrum daily, Alleven over sacrum, Alleven over b/l heels , Offload pressure areas with frequent repositioning, - MRI of Lumbar spine and Pelvis ---> "Osteomyelitis cannot be excluded 02/20/18 " 3 phase bone scan to r/o osteo NOT DONE. Per ID, low clinical suspicion -02/25/18 ID and Hospitalist discussed treatment with family this afternoon. Bone biopsy not recommended at this time. Low clinical suspicion for osteomyelitis. Radiology re-evaluated imaging with ID and concur osteo very unlikely in light of recent imaging studies. - Pt's pain unrelenting to Tylenol. Morphine 10 mg/5ml liquid Q6H PRN Pain 02/26/18 CT Abd/Pelvis--> No CT Evidence of osteomyelitis. Meeting 02/27/18, with medical billing manager, social workers, risk assesment for plan of action and next step moving forward. # Right Base infiltrate -Chest XRAY 02/28/18- Right pulmonary and pleural changes have increased. There is progressive fluid with infiltrate. -Pt afebrile, no WBC however pt may not be able to mount white count. -03/01/18 vancomycin/fortaz administered with HD in light of no I.V access -Legionella urine antigen negative, Strep pneumo urine antigen negative ESRD on hemodialysis -Nephrology-Dr Winters on board. HD 03/01/18--> 2.00 KG WT REMOVED. - Permacath drawn blood cultures--NO GROWTH - Wound culture--Proteus species, MRSA, VR EC F -Blood cultures 02/25 Negative C. Difficile infection -ID On board. Recommends following: decrease to daily now for 4 days then po vancomycin 125 mg every 2 days for another month then every 3 days for another month. -Contact precautions Atrial fibrillation -Lopressor 25 po bid -No AC at this time due to h/o G.I bleed on last admission. Hypertension -Continue Norvasc 10 mg PO daily Malnutrition -Banatrol -Prosource 3 times per day -Modified Barium Swallow tentative for Sunday -Dysphagia Whole, Crushed with applesauce, [place] Thick liquids, Magic Cup, Ensure Pudding #Urinary Retention -Urology on board -Leon inserted overnight -150 cc urine drained -Continue to monitor urine output -Will d/c leon today 03/02/11 FEN No IV fluids Monitor electrolytes Renal, sodium controlled, diabetic diet. Prophylaxis -SCDs, TEDs b/l lower extremities Disposition- Med-Surg Visit type - Emergency Visit Emergency Visit: Yes ED Registration Date: 02/27/18 Care time: The patient presented to the Emergency Department on the above date and was hospitalized for further evaluation of their emergent condition. - New Patient This patient is new to me today: No - Critical Care Critical Care patient: No - Discharge Referral Referred to [facility] Med P.C[facility] No
[2018-03-02] MEDS: MINERAL OIL/PET HY-PHL TOPICAL OINTMENT 454 GM JAR TP SCH (18:53)
--- NOTE | 2018-03-02 18:58 | PN ---
Progress Note, Physician History of Present Illness: Pt seen and examined. She is at baseline mental status. She denies shortness of breath. - Current Medication List Current Medications: Active Medications Acetaminophen (Tylenol -) 650 mg PO Q6H PRN PRN Reason: FEVER Last Admin: 02/27/18 11:35 Dose: 650 mg Amino Acids (Prosource No Carb Liquid Pkt) 30 ml PO TID [facility] Last Admin: 03/02/18 15:33 Dose: Not Given Amlodipine Besylate (Norvasc -) 10 mg PO DAILY [facility] Last Admin: 03/02/18 10:37 Dose: 10 mg Collagenase (Santyl -) 1 applic TP DAILY [facility]; Protocol Last Admin: 03/02/18 10:37 Dose: 1 applic Emollient Ointment (Aquaphor -) 1 applic TP DAILY [facility] Last Admin: 03/02/18 18:53 Dose: 1 applic Insulin Aspart (Novolog Vial Sliding Scale -) 1 vial SQ ACHS [facility]; Protocol Last Admin: 03/02/18 16:49 Dose: Not Given Lactobacillus Acidophilus (Bacid -) 1 tab PO DAILY [facility] Last Admin: 03/02/18 10:37 Dose: 1 tab Metoprolol Tartrate (Lopressor -) 25 mg PO BID [facility] Last Admin: 03/02/18 10:37 Dose: 25 mg Morphine Sulfate (Morphine 10 Mg/5 Ml Liquid) 5 mg PO Q6H PRN PRN Reason: PAIN LEVEL 7 - 10 Last Admin: 03/02/18 11:06 Dose: 5 mg Vancomycin HCl (Vancomycin Oral Solution) 125 mg PO DAILY [facility] - Objective Vital Signs: Vital Signs Temperature 97.5 F L 03/02/18 14:31 Pulse Rate 56 L 03/02/18 14:31 Respiratory Rate 18 03/02/18 14:31 Blood Pressure 125/74 03/02/18 14:31 O2 Sat by Pulse Oximetry (%) 97 03/02/18 10:00 Constitutional: Yes: Calm Eyes: Yes: Conjunctiva Clear HENT: Yes: Atraumatic Neck: Yes: Supple Cardiovascular: Yes: S1, S2 Respiratory: Yes: CTA Bilaterally Gastrointestinal: Yes: Soft Genitourinary: Yes: Incontinence Musculoskeletal: Yes: Muscle Weakness Edema: No Neurological: Yes: Oriented Labs: CBC, BMP 03/01/18 16:00 03/01/18 16:00 Problem List - Problems (1) ESRD (end stage renal disease) on dialysis Code(s): N18.6 - END STAGE RENAL DISEASE; Z99.2 - DEPENDENCE ON RENAL DIALYSIS (2) Sacral decubitus ulcer Code(s): L89.159 - PRESSURE ULCER OF SACRAL REGION, UNSPECIFIED STAGE Qualifiers: Pressure injury stage: stage 4 Qualified Code(s): L89.154 - Pressure ulcer of sacral region, stage 4 Assessment/Plan Current Medications Generic Name Dose Route Start Last Admin Trade Name Freq PRN Reason Stop Dose Admin Acetaminophen 650 mg 02/20/18 22:37 02/27/18 11:35 Tylenol - PO 650 mg Q6H PRN Administration FEVER Amino Acids 30 ml 02/27/18 22:00 03/02/18 15:33 Prosource No Carb Liquid Pkt PO Not Given TID [facility] Amlodipine Besylate 10 mg 02/20/18 13:03 03/02/18 10:37 Norvasc - PO 10 mg DAILY [facility] Administration Collagenase 1 applic 02/20/18 10:00 03/02/18 10:37 Santyl - TP 1 applic DAILY [facility] Administration Protocol Emollient Ointment 1 applic 03/02/18 18:00 03/02/18 18:53 Aquaphor - TP 1 applic DAILY [facility] Administration Insulin Aspart 1 vial 02/24/18 09:43 03/02/18 16:49 Novolog Vial Sliding Scale - SQ Not Given ACHS [facility] Protocol Lactobacillus Acidophilus 1 tab 02/20/18 10:00 03/02/18 10:37 Bacid - PO 1 tab DAILY [facility] Administration Metoprolol Tartrate 25 mg 02/20/18 10:00 03/02/18 10:37 Lopressor - PO 25 mg BID [facility] Administration Morphine Sulfate 5 mg 02/28/18 15:09 03/02/18 11:06 Morphine 10 Mg/5 Ml Liquid PO 5 mg Q6H PRN Administration PAIN LEVEL 7 - 10 Vancomycin HCl 125 mg 03/03/18 10:00 Vancomycin Oral Solution PO DAILY [facility] Impression 1. ESRD 2. failed kidney transplant 3. hx DM 4. Hx HTN 5. sacral ulcer 6. post op infection 7. c.diff 8. a-fib 9. failure to thrive 10.malnutrition 11. anemia 12. GI bleed 13. PNA Plan - pt tolerated HD yesterday - next HD on Sunday - abx with HD - cont wound care - will follow Dr Winters
[2018-03-03] MEDS: BANATROL PLUS POWDER PACKET PO SCH ×4 (06:34→22:37)
[2018-03-03] MEDS: AMINO ACIDS/PROTEIN HYDROLYS 30 ML LIQUID.PKT PO SCH ×4 (06:34→22:38)
[2018-03-03] MEDS: INSULIN SLIDING SCALE (NOVOLOG) 1 VIAL SQ SCH ×4 (06:34→22:38)
[2018-03-03 08:23] LABS: HEMATOCRIT 26.8 % (32.4-45.2); HEMOGLOBIN 8.6 GM/dL (10.7-15.3); MCH 31.4 pg (25.7-33.7); MCHC 32.1 g/dl (32.0-36.0); MEAN CELL VOLUME 97.8 fl (80-96); MEAN PLT VOLUME 9.2 fl (7.5-11.1); PLATELET COUNT 232 K/MM3 (134-434); RBC 2.74 M/mm3 (3.60-5.2); RDW 19.6 % (11.6-15.6); WHITE BLOOD COUNT 5.2 K/mm3 (4.0-10.0)
[2018-03-03 08:30] LABS: ANION GAP 8 MMOL/L (8-16); BLOOD UREA NITROGEN 28 mg/dL (7-18); CALCIUM 8.3 mg/dL (8.5-10.1); CHLORIDE 99 mmol/L (98-107); CO2 32 mmol/L (21-32); CREATININE 2.9 mg/dL (0.55-1.3); GLUCOSE,RANDOM 69 mg/dL (74-106); PHOSPHOROUS 3.8 mg/dL (2.5-4.9); POTASSIUM 3.7 mmol/L (3.5-5.1); SODIUM 139 mmol/L (136-145)
[2018-03-03] MEDS: LACTOBACILLUS ACIDOPHILUS 1 TABLET PO SCH (09:09)
[2018-03-03] MEDS: morphine SULFATE 10 MG/5 ML UNIT-DOSE CUP PO PRN (09:09)
[2018-03-03] MEDS: amLODIPine BESYLATE 10 MG TABLET (FP) PO SCH (09:09)
[2018-03-03] MEDS: METOPROLOL TARTRATE 25 MG TABLET (FP) PO SCH ×2 (09:09→22:11)
[2018-03-03] MEDS: MINERAL OIL/PET HY-PHL TOPICAL OINTMENT 454 GM JAR TP SCH (09:15)
[2018-03-03] MEDS: COLLAGENASE CLOSTRIDIUM HIST. 30 GRAMS TUBE TP SCH (09:17)
[2018-03-03] MEDS: VANCOMYCIN 250 MG/5 ML ORAL SOLUTION PO SCH (10:33)
--- NOTE | 2018-03-03 11:13 | PN ---
Progress Note (short form) - Note Progress Note: patient is doing well she is not complaining of anything PE: aaox3 lungs CTA good air entry abdomen soft non-tender cachetic temporal wasting no edema ASSESSMENT AND PLAN: Patient is a 77 year old female with history of ESRD on HD Mon, Wed, Fri, s/p kidney transplant 10/08, diabetes mellitus, hypertension, Afib not on anticoagulation due to GI bleed on prior admission, recently discharged from [facility], presents for complaint of sacral ulcer, requiring wound care. Stage IV sacral decubitus ulcer -Surgery--> Santyl to sacrum daily, Alleven over sacrum, Alleven over b/l heels , Offload pressure areas with frequent repositioning, - MRI of Lumbar spine and Pelvis ---> "Osteomyelitis cannot be excluded 02/20/18 " 3 phase bone scan to r/o osteo NOT DONE. Per ID, low clinical suspicion -02/25/18 ID and Hospitalist discussed treatment with family this afternoon. Bone biopsy not recommended at this time. Low clinical suspicion for osteomyelitis. Radiology re-evaluated imaging with ID and concur osteo very unlikely in light of recent imaging studies. - Pt's pain unrelenting to Tylenol. Morphine 10 mg/5ml liquid Q6H PRN Pain Right Base infiltrate - stable without any fever -03/01/18 vancomycin/fortaz administered with HD today in light of no I.V access ESRD on hemodialysis - Permacath drawn blood cultures--NO GROWTH C. Difficile infection -vancomycin 125 mg every 2 days per ID recommendation then every 3 days for another month. -Contact precautions Atrial fibrillation -rate control with metprolol 25mg twice a day NOT ON ANTICOAGULATION DUE TO HISTORY OF GI BLEEDING Hypertension -Continue amlodipine 10 mg PO daily Malnutrition -Banatrol -Prosource 3 times per day -Dysphagia Whole, Crushed with applesauce, [place] Thick liquids, Magic Cup, Ensure Pudding #Urinary Retention -Urology on board -German inserted overnight -150 cc urine drained FEN No IV fluids Follow CMP Renal, sodium controlled, diabetic diet. Prophylaxis -SCDs, TEDs b/l lower extremitie
--- NOTE | 2018-03-03 15:10 | PN ---
Progress Note, Physician History of Present Illness: Pt seen and examined at bedside. She is awake and appears comfortable. - Current Medication List Current Medications: Active Medications Acetaminophen (Tylenol -) 650 mg PO Q6H PRN PRN Reason: FEVER Last Admin: 02/27/18 11:35 Dose: 650 mg Amino Acids (Prosource No Carb Liquid Pkt) 30 ml PO TID [facility] Last Admin: 03/03/18 06:34 Dose: Not Given Amlodipine Besylate (Norvasc -) 10 mg PO DAILY [facility] Last Admin: 03/03/18 09:09 Dose: 10 mg Collagenase (Santyl -) 1 applic TP DAILY [facility]; Protocol Last Admin: 03/03/18 09:17 Dose: 1 applic Emollient Ointment (Aquaphor -) 1 applic TP DAILY [facility] Last Admin: 03/03/18 09:15 Dose: 1 applic Insulin Aspart (Novolog Vial Sliding Scale -) 1 vial SQ ACHS [facility]; Protocol Last Admin: 03/03/18 11:20 Dose: Not Given Lactobacillus Acidophilus (Bacid -) 1 tab PO DAILY [facility] Last Admin: 03/03/18 09:09 Dose: 1 tab Metoprolol Tartrate (Lopressor -) 25 mg PO BID [facility] Last Admin: 03/03/18 09:09 Dose: 25 mg Morphine Sulfate (Morphine 10 Mg/5 Ml Liquid) 5 mg PO Q6H PRN PRN Reason: PAIN LEVEL 7 - 10 Last Admin: 03/03/18 09:09 Dose: 5 mg Vancomycin HCl (Vancomycin Oral Solution) 125 mg PO DAILY [facility] Last Admin: 03/03/18 10:33 Dose: 125 mg - Objective Vital Signs: Vital Signs Temperature 97.5 F L 03/03/18 14:51 Pulse Rate 65 03/03/18 14:51 Respiratory Rate 20 03/03/18 14:51 Blood Pressure 142/93 03/03/18 14:51 O2 Sat by Pulse Oximetry (%) 95 03/03/18 09:00 Constitutional: Yes: Calm, Cachectic Eyes: Yes: Conjunctiva Clear HENT: Yes: Atraumatic Cardiovascular: Yes: S1, S2 Respiratory: Yes: CTA Bilaterally Gastrointestinal: Yes: Normal Bowel Sounds, Soft Genitourinary: Yes: Incontinence Musculoskeletal: Yes: WNL Edema: No Neurological: Yes: Oriented Labs: CBC, BMP 03/03/18 06:59 03/03/18 06:59 Problem List - Problems (1) ESRD (end stage renal disease) on dialysis Code(s): N18.6 - END STAGE RENAL DISEASE; Z99.2 - DEPENDENCE ON RENAL DIALYSIS (2) Sacral decubitus ulcer Code(s): L89.159 - PRESSURE ULCER OF SACRAL REGION, UNSPECIFIED STAGE Qualifiers: Pressure injury stage: stage 4 Qualified Code(s): L89.154 - Pressure ulcer of sacral region, stage 4 Assessment/Plan Current Medications Generic Name Dose Route Start Last Admin Trade Name Freq PRN Reason Stop Dose Admin Acetaminophen 650 mg 02/20/18 22:37 02/27/18 11:35 Tylenol - PO 650 mg Q6H PRN Administration FEVER Amino Acids 30 ml 02/27/18 22:00 03/03/18 15:07 Prosource No Carb Liquid Pkt PO Not Given TID [facility] Amlodipine Besylate 10 mg 02/20/18 13:03 03/03/18 09:09 Norvasc - PO 10 mg DAILY [facility] Administration Collagenase 1 applic 02/20/18 10:00 03/03/18 09:17 Santyl - TP 1 applic DAILY [facility] Administration Protocol Emollient Ointment 1 applic 03/02/18 18:00 03/03/18 09:15 Aquaphor - TP 1 applic DAILY [facility] Administration Insulin Aspart 1 vial 02/24/18 09:43 03/03/18 11:20 Novolog Vial Sliding Scale - SQ Not Given ACHS [facility] Protocol Lactobacillus Acidophilus 1 tab 02/20/18 10:00 03/03/18 09:09 Bacid - PO 1 tab DAILY [facility] Administration Metoprolol Tartrate 25 mg 02/20/18 10:00 03/03/18 09:09 Lopressor - PO 25 mg BID [facility] Administration Vancomycin HCl 125 mg 03/03/18 10:00 03/03/18 10:33 Vancomycin Oral Solution PO 125 mg DAILY [facility] Administration Impression 1. ESRD 2. failed kidney transplant 3. hx DM 4. Hx HTN 5. sacral ulcer 6. post op infection 7. c.diff 8. a-fib 9. failure to thrive 10.malnutrition 11. anemia 12. GI bleed 13. PNA Plan - HD in am - pt to get abx with HD, spoke to ID - discussed with family - BP is stable - epogen for anemia - cont wound care - will follow Dr Winters
[2018-03-03] MEDS ORDERED: PT OWN MED DRAWER 7, Y5N ONE ×2 (19:42→21:15)
[2018-03-04] MEDS: AMINO ACIDS/PROTEIN HYDROLYS 30 ML LIQUID.PKT PO SCH ×3 (05:48→22:44)
[2018-03-04] MEDS: BANATROL PLUS POWDER PACKET PO SCH ×3 (05:48→22:43)
[2018-03-04] MEDS: INSULIN SLIDING SCALE (NOVOLOG) 1 VIAL SQ SCH ×4 (06:37→22:44)
--- NOTE | 2018-03-04 08:55 | PN ---
Physical Exam: SUBJECTIVE: Patient seen and examined at bedside. Pt appears confused, asking " who is she?". In apparent pain, facial grimacing. Itchying. Refused all medications overnight. For HD today. No acute events overnight. OBJECTIVE: Vital Signs Period Temp Pulse Resp BP Sys/Franco Pulse Ox Last 24 Hr 97.5 F-97.9 F 59-75 18-20 113-145/66-93 95-95 GENERAL: Facial grimacing, cachexia, confused HEAD: NC/AT EYES: EOMI PERRL LUNGS: poor inspiratory effort HEART: RRR ABDOMEN: NDNT EXTREMITIES: Bandages on b/l feet, muscle atrophy SKIN: Sacral ulcer. Laboratory Results - last 24 hr 03/03/18 03/03/18 03/03/18 06:59 11:17 16:07 WBC 5.2 RBC 2.74 L Hgb 8.6 L Hct 26.8 L MCV 97.8 H MCH 31.4 MCHC 32.1 RDW 19.6 H Plt Count 232 MPV 9.2 POC Glucometer 105 74 03/03/18 03/04/18 22:16 02:33 WBC RBC Hgb Hct MCV MCH MCHC RDW Plt Count MPV POC Glucometer 71 91 Active Medications Generic Name Dose Route Start Last Admin Trade Name Freq PRN Reason Stop Dose Admin Acetaminophen 650 mg 02/20/18 22:37 02/27/18 11:35 Tylenol - PO 650 mg Q6H PRN Administration FEVER Amino Acids 30 ml 02/27/18 22:00 03/04/18 05:48 Prosource No Carb Liquid Pkt PO Not Given TID [facility] Amlodipine Besylate 10 mg 02/20/18 13:03 03/03/18 09:09 Norvasc - PO 10 mg DAILY [facility] Administration Collagenase 1 applic 02/20/18 10:00 03/03/18 09:17 Santyl - TP 1 applic DAILY [facility] Administration Protocol Emollient Ointment 1 applic 03/02/18 18:00 03/03/18 09:15 Aquaphor - TP 1 applic DAILY [facility] Administration Epoetin Abe 10,000 unit 03/03/18 16:00 Procrit - IVPUSH 03/03/18 16:01 ONCE ONE Sodium Chloride 250 mls @ 3,000 mls/hr 03/03/18 15:10 Normal Saline - IV 03/04/18 15:10 PRN PRN Hypotension during Dialysis Insulin Aspart 1 vial 02/24/18 09:43 03/04/18 06:37 Novolog Vial Sliding Scale - SQ Not Given ACHS [facility] Protocol Lactobacillus Acidophilus 1 tab 02/20/18 10:00 03/03/18 09:09 Bacid - PO 1 tab DAILY [facility] Administration Metoprolol Tartrate 25 mg 02/20/18 10:00 03/03/18 22:11 Lopressor - PO 25 mg BID [facility] Administration Morphine Sulfate 5 mg 03/04/18 08:39 Morphine 10 Mg/5 Ml Liquid PO Q6H PRN PAIN LEVEL 7 - 10 Vancomycin HCl 125 mg 03/03/18 10:00 03/03/18 10:33 Vancomycin Oral Solution PO 125 mg DAILY [facility] Administration ASSESSMENT/PLAN: Patient is a 77 year old female with history of ESRD on HD Mon, Wed, Sun, s/p kidney transplant 10/08, diabetes mellitus, hypertension, Afib not on anticoagulation due to GI bleed on prior admission, recently discharged from [facility], presents for complaint of sacral ulcer, requiring wound care. Stage IV sacral decubitus ulcer -Surgery--> Santyl to sacrum daily, Alleven over sacrum, Alleven over b/l heels , Offload pressure areas with frequent repositioning, - MRI of Lumbar spine and Pelvis ---> "Osteomyelitis cannot be excluded 02/20/18 " -3 phase bone scan to r/o osteo NOT DONE. Per ID, low clinical suspicion -02/25/18 ID and Hospitalist discussed treatment with family this afternoon. Bone biopsy not recommended at this time. Low clinical suspicion for osteomyelitis. Radiology re-evaluated imaging with ID and concur osteo very unlikely in light of recent imaging studies. - Pt's pain unrelenting to Tylenol. Morphine 10 mg/5ml liquid Q6H PRN Pain 02/26/18 CT Abd/Pelvis--> No CT Evidence of osteomyelitis. Meeting 02/27/18, with medical chief technician, social workers, risk assesment for plan of action and next step moving forward. # Right Base infiltrate -Chest XRAY 02/28/18- Right pulmonary and pleural changes have increased. There is progressive fluid with infiltrate. -Pt afebrile, no WBC however pt may not be able to mount white count. -03/01/18 vancomycin/fortaz administered with HD in light of no I.V access -Legionella urine antigen negative, Strep pneumo urine antigen negative -Will get Vanco and Fortaz with each HD session as pt has no peripheral I.V access. ESRD on hemodialysis -Nephrology-Dr Winters on board. HD 03/04/18 today--> 2.00 KG WT REMOVED. - Permacath drawn blood cultures--NO GROWTH - Wound culture--Proteus species, MRSA, VR EC F -Blood cultures 02/25 Negative C. Difficile infection -ID On board. Recommends following: decrease to daily now for 3 days then po vancomycin 125 mg every 2 days for another month then every 3 days for another month. -Contact precautions Atrial fibrillation -Lopressor 25 po bid -No AC at this time due to h/o G.I bleed on last admission. Hypertension -Continue Norvasc 10 mg PO daily Malnutrition -Banatrol -Prosource 3 times per day -Modified Barium Swallow tentative for Sunday -Dysphagia Whole, Crushed with applesauce, [place] Thick liquids, Magic Cup, Ensure Pudding #Urinary Retention -Urology on board -German inserted -Continue to monitor urine output FEN No IV fluids Monitor electrolytes Renal, sodium controlled, diabetic diet. Prophylaxis -SCDs, TEDs b/l lower extremities Disposition- Med-Surg Visit type - Emergency Visit Emergency Visit: Yes ED Registration Date: 02/27/18 Care time: The patient presented to the Emergency Department on the above date and was hospitalized for further evaluation of their emergent condition. - New Patient This patient is new to me today: No - Critical Care Critical Care patient: No - Discharge Referral Referred to [facility] Med P.C.: No
[2018-03-04] MEDS: morphine SULFATE 10 MG/5 ML UNIT-DOSE CUP PO PRN (09:28)
--- NOTE | 2018-03-04 10:15 | PN ---
Progress Note, STUDIO RECEPTIONIST - Note Progress Note: Selected Entries 02/28/18 02/28/18 02/28/18 01:35 06:00 09:40 Breakfast 50% Diet Tolerated Lunch Supper Temperature 98.1 F 98.8 F 02/28/18 02/28/18 02/28/18 10:00 14:05 19:12 Breakfast Diet Tolerated Lunch 0 Supper Temperature 98.1 F 98.0 F 98.5 F 02/28/18 03/01/18 03/01/18 22:00 01:41 06:15 Breakfast Diet Tolerated Lunch Supper Temperature 99 F 98.4 F 98.0 F 03/01/18 03/03/18 03/03/18 10:00 06:00 09:09 Breakfast 25% Diet Tolerated Poor Lunch Supper Temperature 98.9 F 98.2 F 03/03/18 03/03/18 03/03/18 10:00 14:51 18:00 Breakfast Diet Tolerated Poor Poor Lunch 0 Supper 0 Temperature 97.9 F 97.5 F L 97.6 F 03/03/18 03/04/18 03/04/18 22:00 06:00 10:02 Breakfast 0 Diet Tolerated Refused Lunch Supper Temperature 97.8 F 97.8 F Laboratory Tests 02/28/18 03/03/18 11:20 06:59 WBC 6.3 5.2 On Dys whole/ [place] thick liquids. Accepting very little. Defer MBS. Would likely not foreign exchange clerk at this time. Pt's End of life wishes regarding TF and code status?
[2018-03-04] MEDS: MINERAL OIL/PET HY-PHL TOPICAL OINTMENT 454 GM JAR TP SCH (11:23)
[2018-03-04] MEDS: COLLAGENASE CLOSTRIDIUM HIST. 30 GRAMS TUBE TP SCH (11:23)
[2018-03-04] MEDS: LACTOBACILLUS ACIDOPHILUS 1 TABLET PO SCH (11:24)
[2018-03-04] MEDS: amLODIPine BESYLATE 10 MG TABLET (FP) PO SCH (11:25)
[2018-03-04] MEDS: METOPROLOL TARTRATE 25 MG TABLET (FP) PO SCH ×2 (11:25→22:43)
[2018-03-04] MEDS: VANCOMYCIN 250 MG/5 ML ORAL SOLUTION PO SCH (11:34)
--- NOTE | 2018-03-04 11:45 | PN ---
Progress Note, Physician History of Present Illness: Pt seen and examined at bedside. No great change in status. - Current Medication List Current Medications: Active Medications Acetaminophen (Tylenol -) 650 mg PO Q6H PRN PRN Reason: FEVER Last Admin: 02/27/18 11:35 Dose: 650 mg Amino Acids (Prosource No Carb Liquid Pkt) 30 ml PO TID COUNTS INCLUDE 234 BEDS AT THE [facility] Last Admin: 03/04/18 05:48 Dose: Not Given Amlodipine Besylate (Norvasc -) 10 mg PO DAILY COUNTS INCLUDE 234 BEDS AT THE [facility] Last Admin: 03/04/18 11:25 Dose: 10 mg Collagenase (Santyl -) 1 applic TP DAILY COUNTS INCLUDE 234 BEDS AT THE [facility]; Protocol Last Admin: 03/04/18 11:23 Dose: 1 applic Emollient Ointment (Aquaphor -) 1 applic TP DAILY COUNTS INCLUDE 234 BEDS AT THE [facility] Last Admin: 03/04/18 11:23 Dose: 1 applic Epoetin Abe (Procrit -) 10,000 unit IVPUSH ONCE ONE Stop: 03/03/18 16:01 Sodium Chloride (Normal Saline -) 250 mls @ 3,000 mls/hr IV PRN PRN PRN Reason: Hypotension during Dialysis Stop: 03/04/18 15:10 Insulin Aspart (Novolog Vial Sliding Scale -) 1 vial SQ ACHS COUNTS INCLUDE 234 BEDS AT THE [facility]; Protocol Last Admin: 03/04/18 06:37 Dose: Not Given Lactobacillus Acidophilus (Bacid -) 1 tab PO DAILY COUNTS INCLUDE 234 BEDS AT THE [facility] Last Admin: 03/04/18 11:24 Dose: 1 tab Metoprolol Tartrate (Lopressor -) 25 mg PO BID COUNTS INCLUDE 234 BEDS AT THE [facility] Last Admin: 03/04/18 11:25 Dose: 25 mg Morphine Sulfate (Morphine 10 Mg/5 Ml Liquid) 5 mg PO Q6H PRN PRN Reason: PAIN LEVEL 7 - 10 Last Admin: 03/04/18 09:28 Dose: 5 mg Vancomycin HCl (Vancomycin Oral Solution) 125 mg PO DAILY COUNTS INCLUDE 234 BEDS AT THE [facility] Last Admin: 03/04/18 11:34 Dose: 125 mg - Objective Vital Signs: Vital Signs Temperature 97.2 F L 03/04/18 10:00 Pulse Rate 64 03/04/18 10:00 Respiratory Rate 18 03/04/18 10:00 Blood Pressure 119/68 03/04/18 10:00 O2 Sat by Pulse Oximetry (%) 95 03/03/18 21:00 Constitutional: Yes: Calm, Cachectic Eyes: Yes: Conjunctiva Clear HENT: Yes: Atraumatic Neck: Yes: Supple Cardiovascular: Yes: S1, S2 Respiratory: Yes: Rhonchi Gastrointestinal: Yes: Soft Genitourinary: Yes: Incontinence Musculoskeletal: Yes: Muscle Weakness Edema: No Neurological: Yes: Oriented Labs: CBC, BMP 03/03/18 06:59 03/03/18 06:59 Problem List - Problems (1) ESRD (end stage renal disease) on dialysis Code(s): N18.6 - END STAGE RENAL DISEASE; Z99.2 - DEPENDENCE ON RENAL DIALYSIS (2) Sacral decubitus ulcer Code(s): L89.159 - PRESSURE ULCER OF SACRAL REGION, UNSPECIFIED STAGE Qualifiers: Pressure injury stage: stage 4 Qualified Code(s): L89.154 - Pressure ulcer of sacral region, stage 4 Assessment/Plan Current Medications Generic Name Dose Route Start Last Admin Trade Name Freq PRN Reason Stop Dose Admin Acetaminophen 650 mg 02/20/18 22:37 02/27/18 11:35 Tylenol - PO 650 mg Q6H PRN Administration FEVER Amino Acids 30 ml 02/27/18 22:00 03/04/18 05:48 Prosource No Carb Liquid Pkt PO Not Given TID HARPAL Amlodipine Besylate 10 mg 02/20/18 13:03 03/04/18 11:25 Norvasc - PO 10 mg DAILY HARPAL Administration Collagenase 1 applic 02/20/18 10:00 03/04/18 11:23 Santyl - TP 1 applic DAILY HARPAL Administration Protocol Emollient Ointment 1 applic 03/02/18 18:00 03/04/18 11:23 Aquaphor - TP 1 applic DAILY HARPAL Administration Epoetin Abe 10,000 unit 03/03/18 16:00 Procrit - IVPUSH 03/03/18 16:01 ONCE ONE Sodium Chloride 250 mls @ 3,000 mls/hr 03/03/18 15:10 Normal Saline - IV 03/04/18 15:10 PRN PRN Hypotension during Dialysis Insulin Aspart 1 vial 02/24/18 09:43 03/04/18 06:37 Novolog Vial Sliding Scale - SQ Not Given ACHS HARPAL Protocol Lactobacillus Acidophilus 1 tab 02/20/18 10:00 03/04/18 11:24 Bacid - PO 1 tab DAILY HARPAL Administration Metoprolol Tartrate 25 mg 02/20/18 10:00 03/04/18 11:25 Lopressor - PO 25 mg BID HARPAL Administration Morphine Sulfate 5 mg 03/04/18 08:39 03/04/18 09:28 Morphine 10 Mg/5 Ml Liquid PO 5 mg Q6H PRN Administration PAIN LEVEL 7 - 10 Vancomycin HCl 125 mg 03/03/18 10:00 03/04/18 11:34 Vancomycin Oral Solution PO 125 mg DAILY HARPAL Administration Impression 1. ESRD 2. failed kidney transplant 3. hx DM 4. Hx HTN 5. sacral ulcer 6. post op infection 7. c.diff 8. a-fib 9. failure to thrive 10.malnutrition 11. anemia 12. GI bleed 13. PNA Plan - HD today - abx with HD as she doesnt have access - follow speech and swallow - discuss GOC with respect to feeding with family - monitor bp - cont wound care - epogen for anemia - will follow Dr Winters
[2018-03-04] MEDS ORDERED: DEXTROSE 50%-WATER - 25 GM/50 ML VIAL ONE (12:23)
[2018-03-04 13:28] LABS: HEMATOCRIT 26.1 % (32.4-45.2); HEMOGLOBIN 8.3 GM/dL (10.7-15.3); MCH 31.5 pg (25.7-33.7); MCHC 31.9 g/dl (32.0-36.0); MEAN CELL VOLUME 98.8 fl (80-96); MEAN PLT VOLUME 8.7 fl (7.5-11.1); PLATELET COUNT 252 K/MM3 (134-434); RBC 2.64 M/mm3 (3.60-5.2); WHITE BLOOD COUNT 4.7 K/mm3 (4.0-10.0)
[2018-03-04 13:58] LABS: ANION GAP 7 MMOL/L (8-16); BLOOD UREA NITROGEN 33 mg/dL (7-18); CALCIUM 8.6 mg/dL (8.5-10.1); CHLORIDE 98 mmol/L (98-107); CO2 31 mmol/L (21-32); CREATININE 3.7 mg/dL (0.55-1.3); GLUCOSE,RANDOM 61 mg/dL (74-106); POTASSIUM 4.2 mmol/L (3.5-5.1); SODIUM 137 mmol/L (136-145)
[2018-03-04] MEDS ORDERED: DEXTROSE 50%-WATER - 25 GM/50 ML VIAL IVPUSH ONE (14:15)
--- NOTE | 2018-03-04 14:20 | PN ---
Teaching Attending Note Name of Resident: Fernando Ricci ATTENDING PHYSICIAN STATEMENT I saw and evaluated the patient. I reviewed the resident's note and discussed the case with the resident. I agree with the resident's findings and plan as documented. SUBJECTIVE:c/o diffuse body aches. denie CP, SOB, fever, chills refused to answer if tolerating diet OBJECTIVE: Last Vital Signs Temp Pulse Resp BP Pulse Ox 97.2 F L 78 18 115/56 L 95 03/04/18 10:00 03/04/18 13:00 03/04/18 13:00 03/04/18 13:00 03/03/18 21:00 General NAD, bitemporal wasting, prominent clavicles, thin extremities, CV S1 S2 RRR no murmur/rub/gallop Lungs CTA B/L no wheezing ASSESSMENT AND PLAN: 77 yo F with reportedly prolonged stay at [facility] for PNA, cdiff (requiring fecal transplant), 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 Sacral wound-repeat CT showing no signs of OM. cont with local wound care, frequent turning. not a candidate for wound vac. 2. Severe malnutrition- as evident by body habitus and low BMI. calorie count showing not consuming enough to sustain body weight and promote healing. WIll need to d/w family about goals of care and GI if able to place PEG. patient has been refusing all care and may not be agreeable to PEG in which case will need psych to further evaluate. will d/w family first. appetite stimulant is a possible option (if it is effective) however would not use megace as increased risk of thrombosis. 3. Hypoglycemia- having periods of hypoglycemia due to poor oral intake. cont BGM Q6H, D50 prn 4. PNA- likely aspiration. no peripheral acess. cont with vanco/ceftaz with HD 5. Cdiff- no more diarrhea. on vanco taper. currently daily for 7 days/ contact precautions 6. Anemia- Hjgb stable. no indication for transfusion. epogen 7. ESRD on HD- cont per normal schedule 8. DVT ppx- SCD. would hold pharmacolgic anticoagulation with recent large GI bleed 9. will need to d/w family more about goals of care. will wait on getting psych on board at this time as she seen them in the past as family was very upset they were not consulted prior to psych evaluating the patient.
[2018-03-04] MEDS ORDERED: PT OWN MED DRAWER 7, Y5N ONE ×2 (14:55→22:26)
[2018-03-04] MEDS ORDERED: SODIUM CHLORIDE 250 ML IV PRN (15:04)
[2018-03-04] MEDS ORDERED: EPOETIN ALFA 10,000 UNIT/1 ML VIAL IVPUSH ONE ×2 (15:10→15:15)
[2018-03-04 16:22] VITALS: BMI 18.0
--- NOTE | 2018-03-04 17:23 | PN ---
Progress Note (short form) - Note Progress Note: seen in her room resting comfortably Vital Signs Period Temp Pulse Resp BP Sys/Franco Pulse Ox Last 24 Hr 97.2 F-97.8 F 59-79 18-18 77-145/48-76 95-95 cor-rrr lungs decreased bs at bases abd soft,nt ext trace edema CBC, BMP 03/04/18 12:30 03/04/18 12:30 repeat cxray after HD with larger right pleural effusion, infiltrate-02/[address] and mri- no ostoemyelitis a/p ?pneumonia-+effusion despite HD consider thoracentesis vancomycin/fortaz with HD today- no IV access d/w residents earlier today, should get vancomycin and fortaz with each HD as no peripheral access repeat cxray after next HD sacral ulcer- needs good wound care and nutrition currently no evidence of osteomyelitis family is aware that her overall status is poor at best cxray c/w volume overload- improved after hd history of cdiff- o esrd/hd anemia continue contact isolation wound care per surgery d/w resident Dr Lauri aguayo Problem List - Problems (1) Sacral decubitus ulcer Code(s): L89.159 - PRESSURE ULCER OF SACRAL REGION, UNSPECIFIED STAGE Qualifiers: Pressure injury stage: stage 4 Qualified Code(s): L89.154 - Pressure ulcer of sacral region, stage 4 (2) ESRD (end stage renal disease) on dialysis Code(s): N18.6 - END STAGE RENAL DISEASE; Z99.2 - DEPENDENCE ON RENAL DIALYSIS (3) C. difficile colitis Code(s): A04.72 - ENTEROCOLITIS D/T CLOSTRIDIUM DIFFICILE, NOT SPCF RECUR (4) History of ESBL E. coli infection Code(s): Z86.19 - PERSONAL HISTORY OF OTHER INFECTIOUS AND PARASITIC DISEASES
[2018-03-05] MEDS: BANATROL PLUS POWDER PACKET PO SCH ×3 (05:50→21:35)
[2018-03-05] MEDS: AMINO ACIDS/PROTEIN HYDROLYS 30 ML LIQUID.PKT PO SCH ×3 (05:50→21:35)
[2018-03-05] MEDS: INSULIN SLIDING SCALE (NOVOLOG) 1 VIAL SQ SCH ×4 (06:35→22:39)
[2018-03-05] MEDS ORDERED: PT OWN MED DRAWER 7, Y5N ONE (09:35)
[2018-03-05] MEDS: amLODIPine BESYLATE 10 MG TABLET (FP) PO SCH (10:08)
[2018-03-05] MEDS: METOPROLOL TARTRATE 25 MG TABLET (FP) PO SCH ×2 (10:08→21:37)
[2018-03-05] MEDS: LACTOBACILLUS ACIDOPHILUS 1 TABLET PO SCH (10:08)
[2018-03-05] MEDS: MINERAL OIL/PET HY-PHL TOPICAL OINTMENT 454 GM JAR TP SCH (10:09)
[2018-03-05] MEDS: COLLAGENASE CLOSTRIDIUM HIST. 30 GRAMS TUBE TP SCH (10:09)
[2018-03-05] MEDS: VANCOMYCIN 250 MG/5 ML ORAL SOLUTION PO SCH (13:31)
--- NOTE | 2018-03-05 13:58 | PN ---
Teaching Attending Note Name of Resident: Fernando Ricci ATTENDING PHYSICIAN STATEMENT I saw and evaluated the patient. I reviewed the resident's note and discussed the case with the resident. I agree with the resident's findings and plan as documented. SUBJECTIVE:c/o diffuse body aches. denies CP, SOB, fever, chills, N/V/C/D OBJECTIVE: Last Vital Signs Temp Pulse Resp BP Pulse Ox 97.7 F 73 20 145/73 95 03/05/18 06:00 03/05/18 06:00 03/05/18 06:00 03/05/18 06:00 03/04/18 22:00 General NAD, bitemporal wasting, prominent clavicles, thin extremities, CV S1 S2 RRR no murmur/rub/gallop Lungs CTA B/L no wheezing ASSESSMENT AND PLAN: 77 yo F with reportedly prolonged stay at [facility] for PNA, cdiff (requiring fecal transplant), 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 Sacral wound-repeat CT showing no signs of OM. cont with local wound care, frequent turning. not a candidate for wound vac. 2. Severe malnutrition- as evident by body habitus and low BMI. spoke with patient who seems to be agreeable to PEG. will reach out to GI to notify. call placed out to sonAries, no response. to discuss if also agreeable to PEG placement if pt is a candidate. 3. Hypoglycemia- having periods of hypoglycemia due to poor oral intake. refuses IV access. glucagon prn for hypoglycemia. ccont BGM Q6H, D50 prn 4. PNA- likely aspiration. no peripheral access. cont with vanco/ceftaz with HD. did not receive yesterdays dose. 5. Cdiff- no more diarrhea. on vanco taper. currently daily for 7 days/ contact precautions 6. Anemia- Hgb stable. no indication for transfusion. epogen 7. ESRD on HD- cont per normal schedule 8. DVT ppx- SCD. would hold pharmacolgic anticoagulation with recent large GI bleed 9. call placed out to dion farias to discuss updates and next steps in management. Message left. awaiting call. will also need to discuss about psych determining competency as patient has been refusing most treatments and to eat, however does agree to PEG tube today. will wait on placing consult as family very upset previous admission when not consults were not first discussed with him. RN aware needs to speak wiht family if they arrive
--- NOTE | 2018-03-05 14:47 | PN ---
Progress Note (short form) - Note Progress Note: On HD via PC. Will await result of vein mapping --> more definitive operative plan once above study is completed. Dr. Neri made aware and agrees.
--- NOTE | 2018-03-05 14:50 | PN ---
Physical Exam: SUBJECTIVE: Patient seen and examined at bedside, itchying all over, appears confused. No acute events overnight. OBJECTIVE: Vital Signs Period Temp Pulse Resp BP Sys/Franco Pulse Ox Last 24 Hr 97.2 F-98.0 F 63-82 18-20 86-146/51-77 94-95 GENERAL: AD, cachectic, facial grimacing HEAD: NC/AT EYES: PERRLA EOMI LUNGS: Decreased breath sounds at bases HEART: RRR No MRG S1S2 ABDOMEN: NDNT EXTREMITIES: Muscle atrophy all 4 extremities, bandages b/l heels SKIN: Sacral ulcer Laboratory Results - last 24 hr 03/04/18 03/04/18 03/05/18 18:02 22:38 02:09 POC Glucometer 92 52 65 03/05/18 03/05/18 06:16 11:44 POC Glucometer 63 72 Active Medications Generic Name Dose Route Start Last Admin Trade Name Freq PRN Reason Stop Dose Admin Acetaminophen 650 mg 02/20/18 22:37 02/27/18 11:35 Tylenol - PO 650 mg Q6H PRN Administration FEVER Amino Acids 30 ml 02/27/18 22:00 03/05/18 05:50 Prosource No Carb Liquid Pkt PO Not Given TID HARPAL Amlodipine Besylate 10 mg 02/20/18 13:03 03/05/18 10:08 Norvasc - PO Not Given DAILY HARPAL Collagenase 1 applic 02/20/18 10:00 03/05/18 10:09 Santyl - TP 1 applic DAILY HARPAL Administration Protocol Emollient Ointment 1 applic 03/02/18 18:00 03/05/18 10:09 Aquaphor - TP 1 applic DAILY HARPAL Administration Glucagon 1 mg 03/05/18 13:52 Glucagon - SQ [id number] PRN HYPOGLYCEMIA Ceftazidime 2 gm/ Dextrose 100 mls @ 200 mls/hr 03/06/18 10:00 IVPB 03/06/18 10:29 ONCE ONE Protocol Insulin Aspart 1 vial 02/24/18 09:43 03/05/18 12:36 Novolog Vial Sliding Scale - SQ Not Given ACHS HARPAL Protocol Lactobacillus Acidophilus 1 tab 02/20/18 10:00 03/05/18 10:08 Bacid - PO Not Given DAILY HARPAL Metoprolol Tartrate 25 mg 02/20/18 10:00 03/05/18 10:08 Lopressor - PO 25 mg BID HARPAL Administration Morphine Sulfate 5 mg 03/04/18 08:39 03/04/18 09:28 Morphine 10 Mg/5 Ml Liquid PO 5 mg Q6H PRN Administration PAIN LEVEL 7 - 10 Vancomycin HCl 125 mg 03/03/18 10:00 03/05/18 13:31 Vancomycin Oral Solution PO Not Given DAILY HARPAL Vancomycin HCl 1,000 mg 03/06/18 10:00 Vancomycin (Pre-Docked) IVPB 03/06/18 10:01 ONCE ONE Protocol ASSESSMENT/PLAN: Patient is a 77 year old female with history of ESRD on HD Mon, Wed, Sun, s/p kidney transplant 10/08, diabetes mellitus, hypertension, Afib not on anticoagulation due to GI bleed on prior admission, recently discharged from [facility], presents for complaint of sacral ulcer, requiring wound care. Stage IV sacral decubitus ulcer -Surgery--> Santyl to sacrum daily, Alleven over sacrum, Alleven over b/l heels , Offload pressure areas with frequent repositioning, - MRI of Lumbar spine and Pelvis ---> "Osteomyelitis cannot be excluded 02/20/18 " -3 phase bone scan to r/o osteo NOT DONE. Per ID, low clinical suspicion -02/25/18 ID and Hospitalist discussed treatment with family this afternoon. Bone biopsy not recommended at this time. Low clinical suspicion for osteomyelitis. Radiology re-evaluated imaging with ID and concur osteo very unlikely in light of recent imaging studies. - Pt's pain unrelenting to Tylenol. Morphine 10 mg/5ml liquid Q6H PRN Pain 02/26/18 CT Abd/Pelvis--> No CT Evidence of osteomyelitis. Meeting 02/27/18, with nuclear medical tech, social workers, risk assesment for plan of action and next step moving forward. # Right Base infiltrate -Chest XRAY 02/28/18- Right pulmonary and pleural changes have increased. There is progressive fluid with infiltrate. -Pt afebrile, no WBC however pt may not be able to mount white count. -03/01/18 vancomycin/fortaz administered with HD in light of no I.V access -Legionella urine antigen negative, Strep pneumo urine antigen negative -Will get Vanco and Fortaz with each HD session as pt has no peripheral I.V access. HD in am 03/06/18 ESRD on hemodialysis -Nephrology-Dr Winters on board. HD 03/04/18 - Permacath drawn blood cultures--NO GROWTH - Wound culture--Proteus species, MRSA, VR EC F -Blood cultures 02/25 Negative C. Difficile infection -ID On board. Recommends following: decrease to daily now for 2 days then po vancomycin 125 mg every 2 days for another month then every 3 days for another month. -Contact precautions Atrial fibrillation -Lopressor 25 po bid -No AC at this time due to h/o G.I bleed on last admission. Hypertension -Continue Norvasc 10 mg PO daily Malnutrition -Banatrol -Prosource 3 times per day -Modified Barium Swallow tentative for Sunday -Dysphagia Whole, Crushed with applesauce, [place] Thick liquids, Magic Cup, Ensure Pudding -Evaluated by [facility] this afternoon, 03/05/18, for possible PEG tube placement. PER GI, pt not wanting PEG at this time. GI discussed this with Marvel Chris. Aries will speak to pt and further discuss with primary team. Psych evalauation agreed by son. #Urinary Retention -Urology on board -Continue to monitor urine output FEN No IV fluids Monitor electrolytes Renal, sodium controlled, diabetic diet. Prophylaxis -SCDs, TEDs b/l lower extremities. No anticoagulation in light of G.I bleed on previous admission. Disposition- Med-Surg Visit type - Emergency Visit Emergency Visit: Yes ED Registration Date: 02/27/18 Care time: The patient presented to the Emergency Department on the above date and was hospitalized for further evaluation of their emergent condition. - New Patient This patient is new to me today: No - Critical Care Critical Care patient: No - Discharge Referral Referred to [facility] Med P.C.: No
--- NOTE | 2018-03-05 15:01 | PN ---
GI Progress Note Subjective: Asked to reevaluate: as per certified medical records coder patient agreeing to PEG Reported poor PO intake by functional skills tutor - Objective Vital Signs: Vital Signs Temperature 97.2 F L 03/05/18 14:39 Pulse Rate 63 03/05/18 14:39 Respiratory Rate 20 03/05/18 14:39 Blood Pressure 127/77 03/05/18 14:39 O2 Sat by Pulse Oximetry (%) 94 L 03/05/18 09:00 Constitutional: Calm Cardiovascular: Yes: Regular Rate and Rhythm Respiratory: Yes: Diminished (at bases, did not cooperate with exam) Gastrointestinal Inspection: Yes: Other (Limited exam as patient would not turn on her back). No: Distention ...Auscultate: Yes: Normoactive Bowel Sounds Edema: No (No LE edema) Labs: CBC, BMP 03/04/18 12:30 03/04/18 12:30 Problem List - Problems (1) Failure to thrive in adult Assessment/Plan: Patient with poor PO intake. I discussed PEG placement with Ms. De La Vega. I explained that it is a way of placing direct feeding access into the stomach as she is not eating enough to maintain herself. I explained potential risks of the procedure like but not limited to bleeding, perforation, infection, perotinitis, a life threatening infection of the abdominal cavity it the tube was prematurely dislodged, sedation medication effects all of which could be potentially life threatening. I explained that malnutrition could lead to . She said "No, I will think about it". She did have a large hiatal hernia noted on recent EGD. This could make endoscopic placement of a gastrostomy more difficult or even preclude placement. This may lead to alternate ways of gastrostomy placement being considered such as surgery. I discussed all the above things with her son Aries [phone]. He will speak to his family regarding this and speak to the primary team Will need psych evaluation Recall when decision making issues and patient wishes regarding PEG placement are evaluated and resolved and if final determination is that PEG is to be placed. Consider alternate means of nutrition: Likely would not tolerate NG tube for enteral feeds. Consider TPN. Code(s): R62.7 - ADULT FAILURE TO THRIVE
[2018-03-05] MEDS ORDERED: SODIUM CHLORIDE 250 ML IV PRN (16:13)
--- NOTE | 2018-03-05 16:13 | PN ---
Progress Note, Physician History of Present Illness: Pt seen and examined at bedside. No great change in status. - Current Medication List Current Medications: Active Medications Acetaminophen (Tylenol -) 650 mg PO Q6H PRN PRN Reason: FEVER Last Admin: 02/27/18 11:35 Dose: 650 mg Amino Acids (Prosource No Carb Liquid Pkt) 30 ml PO TID PENDING SALE TO [facility] Last Admin: 03/05/18 05:50 Dose: Not Given Amlodipine Besylate (Norvasc -) 10 mg PO DAILY [facility]ENDING S[facility] TO [facility] Last Admin: 03/05/18 10:08 Dose: Not Given Collagenase (Santyl -) 1 applic TP DAILY PENDING [facility] TO [facility]; Protocol Last Admin: 03/05/18 10:09 Dose: 1 applic Emollient Ointment (Aquaphor -) 1 applic TP DAILY PENDING S[facility] TO [facility] Last Admin: 03/05/18 10:09 Dose: 1 applic Glucagon (Glucagon -) 1 mg SQ [id number] PRN PRN Reason: HYPOGLYCEMIA Ceftazidime 2 gm/ Dextrose 100 mls @ 200 mls/hr IVPB ONCE ONE; Protocol Stop: 03/06/18 10:29 Insulin Aspart (Novolog Vial Sliding Scale -) 1 vial SQ ACHS PENDING SALE TO [facility]; Protocol Last Admin: 03/05/18 12:36 Dose: Not Given Lactobacillus Acidophilus (Bacid -) 1 tab PO DAILY PENDING S[facility] TO [facility] Last Admin: 03/05/18 10:08 Dose: Not Given Metoprolol Tartrate (Lopressor -) 25 mg PO BID PENDING S[facility] TO [facility] Last Admin: 03/05/18 10:08 Dose: 25 mg Morphine Sulfate (Morphine 10 Mg/5 Ml Liquid) 5 mg PO Q6H PRN PRN Reason: PAIN LEVEL 7 - 10 Last Admin: 03/04/18 09:28 Dose: 5 mg Vancomycin HCl (Vancomycin Oral Solution) 125 mg PO DAILY PENDING S[facility] TO [facility] Last Admin: 03/05/18 13:31 Dose: Not Given Vancomycin HCl (Vancomycin (Pre-Docked)) 1,000 mg IVPB ONCE ONE; Protocol Stop: 03/06/18 10:01 - Objective Vital Signs: Vital Signs Temperature 97.2 F L 03/05/18 14:39 Pulse Rate 63 03/05/18 14:39 Respiratory Rate 20 03/05/18 14:39 Blood Pressure 127/77 03/05/18 14:39 O2 Sat by Pulse Oximetry (%) 94 L 03/05/18 09:00 Constitutional: Yes: Calm, Cachectic Eyes: Yes: Conjunctiva Clear HENT: Yes: Atraumatic Cardiovascular: Yes: S1, S2 Respiratory: Yes: CTA Bilaterally Gastrointestinal: Yes: Soft Genitourinary: Yes: Incontinence Musculoskeletal: Yes: Muscle Weakness Edema: No Neurological: Yes: Oriented Labs: CBC, BMP 03/04/18 12:30 03/04/18 12:30 Problem List - Problems (1) ESRD (end stage renal disease) on dialysis Code(s): N18.6 - END STAGE RENAL DISEASE; Z99.2 - DEPENDENCE ON RENAL DIALYSIS (2) Sacral decubitus ulcer Code(s): L89.159 - PRESSURE ULCER OF SACRAL REGION, UNSPECIFIED STAGE Qualifiers: Pressure injury stage: stage 4 Qualified Code(s): L89.154 - Pressure ulcer of sacral region, stage 4 Assessment/Plan Current Medications Generic Name Dose Route Start Last Admin Trade Name Freq PRN Reason Stop Dose Admin Acetaminophen 650 mg 02/20/18 22:37 02/27/18 11:35 Tylenol - PO 650 mg Q6H PRN Administration FEVER Amino Acids 30 ml 02/27/18 22:00 03/05/18 05:50 Prosource No Carb Liquid Pkt PO Not Given TID HARPAL Amlodipine Besylate 10 mg 02/20/18 13:03 03/05/18 10:08 Norvasc - PO Not Given DAILY HARPAL Collagenase 1 applic 02/20/18 10:00 03/05/18 10:09 Santyl - TP 1 applic DAILY HARPAL Administration Protocol Emollient Ointment 1 applic 03/02/18 18:00 03/05/18 10:09 Aquaphor - TP 1 applic DAILY HARPAL Administration Glucagon 1 mg 03/05/18 13:52 Glucagon - SQ [id number] PRN HYPOGLYCEMIA Ceftazidime 2 gm/ Dextrose 100 mls @ 200 mls/hr 03/06/18 10:00 IVPB 03/06/18 10:29 ONCE ONE Protocol Insulin Aspart 1 vial 02/24/18 09:43 03/05/18 12:36 Novolog Vial Sliding Scale - SQ Not Given ACHS HARPAL Protocol Lactobacillus Acidophilus 1 tab 02/20/18 10:00 03/05/18 10:08 Bacid - PO Not Given DAILY HARPAL Metoprolol Tartrate 25 mg 02/20/18 10:00 03/05/18 10:08 Lopressor - PO 25 mg BID HARPAL Administration Morphine Sulfate 5 mg 03/04/18 08:39 03/04/18 09:28 Morphine 10 Mg/5 Ml Liquid PO 5 mg Q6H PRN Administration PAIN LEVEL 7 - 10 Vancomycin HCl 125 mg 03/03/18 10:00 03/05/18 13:31 Vancomycin Oral Solution PO Not Given DAILY HARPAL Vancomycin HCl 1,000 mg 03/06/18 10:00 Vancomycin (Pre-Docked) IVPB 03/06/18 10:01 ONCE ONE Protocol Impression 1. ESRD 2. failed kidney transplant 3. hx DM 4. Hx HTN 5. sacral ulcer 6. post op infection 7. c.diff 8. a-fib 9. failure to thrive 10.malnutrition 11. anemia 12. GI bleed 13. PNA Plan - HD in am - abx with HD - GI input appreciated, pt however does not have IV access for nutrition - family are discussing GOC - cont wound care - epogen for anemia - will follow Dr Winters
[2018-03-06] MEDS: AMINO ACIDS/PROTEIN HYDROLYS 30 ML LIQUID.PKT PO SCH ×3 (05:22→22:37)
[2018-03-06] MEDS: BANATROL PLUS POWDER PACKET PO SCH ×3 (05:22→22:36)
[2018-03-06] MEDS: INSULIN SLIDING SCALE (NOVOLOG) 1 VIAL SQ SCH ×4 (06:12→22:37)
[2018-03-06] MEDS: morphine SULFATE 10 MG/5 ML UNIT-DOSE CUP PO PRN (07:45)
[2018-03-06] MEDS ORDERED: VANCOMYCIN 1 GRAM (PRE-DOCKED) 1,000 MG/250 ML BAG IVPB ONE (08:15)
[2018-03-06 08:26] LABS: HEMOGLOBIN 8.3 GM/dL (10.7-15.3); MCH 31.6 pg (25.7-33.7); MCHC 32.1 g/dl (32.0-36.0); MEAN CELL VOLUME 98.4 fl (80-96); MEAN PLT VOLUME 9.4 fl (7.5-11.1); PLATELET COUNT 232 K/MM3 (134-434); RBC 2.64 M/mm3 (3.60-5.2); RDW 19.8 % (11.6-15.6); WHITE BLOOD COUNT 4.8 K/mm3 (4.0-10.0)
[2018-03-06] MEDS ORDERED: EPOETIN ALFA 10,000 UNIT/1 ML VIAL IVPUSH ONE (09:00)
[2018-03-06 09:11] LABS: ALBUMIN 1.7 g/dl (3.4-5.0); ALK PHOS 220 U/L (45-117); ANION GAP 9 MMOL/L (8-16); BILIRUBIN,TOTAL 0.6 mg/dL (0.2-1); BLOOD UREA NITROGEN 17 mg/dL (7-18); CALCIUM 8.4 mg/dL (8.5-10.1); CHLORIDE 102 mmol/L (98-107); CO2 30 mmol/L (21-32); CREATININE 3.2 mg/dL (0.55-1.3); GLUCOSE,RANDOM 55 mg/dL (74-106); PHOSPHOROUS 3.4 mg/dL (2.5-4.9); POTASSIUM 4.3 mmol/L (3.5-5.1); SGOT/AST 18 U/L (15-37); SGPT/ALT 10 U/L (13-61); SODIUM 142 mmol/L (136-145); TOT PROT 6.9 g/dl (6.4-8.2)
[2018-03-06] MEDS ORDERED: CEFTAZIDIME PENTAHYDRATE 2 GM in DEXTROSE 5%-WATER 100 ML IVPB ONE (10:00)
[2018-03-06] MEDS ORDERED: PT OWN MED DRAWER 7, Y5N ONE (10:58)
[2018-03-06] MEDS: MINERAL OIL/PET HY-PHL TOPICAL OINTMENT 454 GM JAR TP SCH (11:27)
[2018-03-06] MEDS: METOPROLOL TARTRATE 25 MG TABLET (FP) PO SCH ×2 (11:56→22:37)
[2018-03-06] MEDS: amLODIPine BESYLATE 10 MG TABLET (FP) PO SCH (11:57)
[2018-03-06] MEDS: VANCOMYCIN 250 MG/5 ML ORAL SOLUTION PO SCH (11:57)
[2018-03-06] MEDS: LACTOBACILLUS ACIDOPHILUS 1 TABLET PO SCH (11:57)
--- NOTE | 2018-03-06 12:50 | PN ---
Progress Note, Physician History of Present Illness: Pt seen and examined at bedside. She is in better spirits today. She tolerated HD. - Current Medication List Current Medications: Active Medications Acetaminophen (Tylenol -) 650 mg PO Q6H PRN PRN Reason: FEVER Last Admin: 02/27/18 11:35 Dose: 650 mg Amino Acids (Prosource No Carb Liquid Pkt) 30 ml PO TID [facility] Last Admin: 03/06/18 05:22 Dose: Not Given Amlodipine Besylate (Norvasc -) 10 mg PO DAILY [facility] Last Admin: 03/06/18 11:57 Dose: Not Given Collagenase (Santyl -) 1 applic TP DAILY [facility]; Protocol Last Admin: 03/05/18 10:09 Dose: 1 applic Emollient Ointment (Aquaphor -) 1 applic TP DAILY [facility] Last Admin: 03/05/18 10:09 Dose: 1 applic Glucagon (Glucagon -) 1 mg SQ [id number] PRN PRN Reason: HYPOGLYCEMIA Sodium Chloride (Normal Saline -) 250 mls @ 3,000 mls/hr IV PRN PRN PRN Reason: Hypotension during Dialysis Stop: 03/06/18 16:13 Insulin Aspart (Novolog Vial Sliding Scale -) 1 vial SQ ACHS [facility]; Protocol Last Admin: 03/06/18 11:57 Dose: Not Given Lactobacillus Acidophilus (Bacid -) 1 tab PO DAILY [facility] Last Admin: 03/06/18 11:57 Dose: Not Given Metoprolol Tartrate (Lopressor -) 25 mg PO BID [facility] Last Admin: 03/06/18 11:56 Dose: Not Given Morphine Sulfate (Morphine 10 Mg/5 Ml Liquid) 5 mg PO Q6H PRN PRN Reason: PAIN LEVEL 7 - 10 Last Admin: 03/06/18 07:45 Dose: 5 mg Vancomycin HCl (Vancomycin Oral Solution) 125 mg PO DAILY [facility] Last Admin: 03/06/18 11:57 Dose: Not Given - Objective Vital Signs: Vital Signs Temperature 98.5 F 03/06/18 06:55 Pulse Rate 82 03/06/18 10:35 Respiratory Rate 18 03/06/18 10:35 Blood Pressure 112/60 03/06/18 10:35 O2 Sat by Pulse Oximetry (%) 95 03/05/18 21:00 Constitutional: Yes: Calm Eyes: Yes: Conjunctiva Clear HENT: Yes: Atraumatic Neck: Yes: Supple Cardiovascular: Yes: S1, S2 Respiratory: Yes: CTA Bilaterally Gastrointestinal: Yes: Normal Bowel Sounds, Soft Genitourinary: Yes: Incontinence Musculoskeletal: Yes: Muscle Weakness Edema: No Neurological: Yes: Oriented Labs: CBC, BMP 03/06/18 07:00 03/06/18 07:00 Problem List - Problems (1) ESRD (end stage renal disease) on dialysis Code(s): N18.6 - END STAGE RENAL DISEASE; Z99.2 - DEPENDENCE ON RENAL DIALYSIS (2) Sacral decubitus ulcer Code(s): L89.159 - PRESSURE ULCER OF SACRAL REGION, UNSPECIFIED STAGE Qualifiers: Pressure injury stage: stage 4 Qualified Code(s): L89.154 - Pressure ulcer of sacral region, stage 4 Assessment/Plan Current Medications Generic Name Dose Route Start Last Admin Trade Name Freq PRN Reason Stop Dose Admin Acetaminophen 650 mg 02/20/18 22:37 02/27/18 11:35 Tylenol - PO 650 mg Q6H PRN Administration FEVER Amino Acids 30 ml 02/27/18 22:00 03/06/18 05:22 Prosource No Carb Liquid Pkt PO Not Given TID [facility] Amlodipine Besylate 10 mg 02/20/18 13:03 03/06/18 11:57 Norvasc - PO Not Given DAILY [facility] Collagenase 1 applic 02/20/18 10:00 03/05/18 10:09 Santyl - TP 1 applic DAILY [facility] Administration Protocol Emollient Ointment 1 applic 03/02/18 18:00 03/05/18 10:09 Aquaphor - TP 1 applic DAILY [facility] Administration Glucagon 1 mg 03/05/18 13:52 Glucagon - SQ [id number] PRN HYPOGLYCEMIA Sodium Chloride 250 mls @ 3,000 mls/hr 03/05/18 16:13 Normal Saline - IV 03/06/18 16:13 PRN PRN Hypotension during Dialysis Insulin Aspart 1 vial 02/24/18 09:43 03/06/18 11:57 Novolog Vial Sliding Scale - SQ Not Given ACHS [facility] Protocol Lactobacillus Acidophilus 1 tab 02/20/18 10:00 03/06/18 11:57 Bacid - PO Not Given DAILY [facility] Metoprolol Tartrate 25 mg 02/20/18 10:00 03/06/18 11:56 Lopressor - PO Not Given BID [facility] Morphine Sulfate 5 mg 03/04/18 08:39 03/06/18 07:45 Morphine 10 Mg/5 Ml Liquid PO 5 mg Q6H PRN Administration PAIN LEVEL 7 - 10 Vancomycin HCl 125 mg 03/03/18 10:00 03/06/18 11:57 Vancomycin Oral Solution PO Not Given DAILY [facility] Impression 1. ESRD 2. failed kidney transplant 3. hx DM 4. Hx HTN 5. sacral ulcer 6. post op infection 7. c.diff 8. a-fib 9. failure to thrive 10.malnutrition 11. anemia 12. GI bleed 13. PNA Plan - pt tolerated HD - abx per ID - cont rehab - encourage PO intake - cont wound care - epogen for anemia - will follow Dr Winters
--- NOTE | 2018-03-06 13:26 | CON.PSY ---
Psychiatry Consult Chief Complaint: 77 yeraold female with a diagnosis of Dementia nad on going chronic medical conditions and failue to thrive. Patient apparantly needs PEG and she has been ossilating with her consent. Symptoms: reports: Anhedonia, Decreased Motivation, Anorexic Behavior - Previous Psychiatric Treatment Outpatient: None Inpatient: None - Previous Substance Abuse Treatment Outpatient: None Inpatient: None - Current Medications Current Medications: Active Medications Acetaminophen (Tylenol -) 650 mg PO Q6H PRN PRN Reason: FEVER Last Admin: 02/27/18 11:35 Dose: 650 mg Amino Acids (Prosource No Carb Liquid Pkt) 30 ml PO TID [facility] Last Admin: 03/06/18 05:22 Dose: Not Given Amlodipine Besylate (Norvasc -) 10 mg PO DAILY [facility] Last Admin: 03/06/18 11:57 Dose: Not Given Collagenase (Santyl -) 1 applic TP DAILY [facility]; Protocol Last Admin: 03/05/18 10:09 Dose: 1 applic Emollient Ointment (Aquaphor -) 1 applic TP DAILY [facility] Last Admin: 03/05/18 10:09 Dose: 1 applic Glucagon (Glucagon -) 1 mg SQ [id number] PRN PRN Reason: HYPOGLYCEMIA Sodium Chloride (Normal Saline -) 250 mls @ 3,000 mls/hr IV PRN PRN PRN Reason: Hypotension during Dialysis Stop: 03/06/18 16:13 Insulin Aspart (Novolog Vial Sliding Scale -) 1 vial SQ ACHS [facility]; Protocol Last Admin: 03/06/18 11:57 Dose: Not Given Lactobacillus Acidophilus (Bacid -) 1 tab PO DAILY [facility] Last Admin: 03/06/18 11:57 Dose: Not Given Metoprolol Tartrate (Lopressor -) 25 mg PO BID [facility] Last Admin: 03/06/18 11:56 Dose: Not Given Morphine Sulfate (Morphine 10 Mg/5 Ml Liquid) 5 mg PO Q6H PRN PRN Reason: PAIN LEVEL 7 - 10 Last Admin: 03/06/18 07:45 Dose: 5 mg Vancomycin HCl (Vancomycin Oral Solution) 125 mg PO DAILY [facility] Last Admin: 03/06/18 11:57 Dose: Not Given - Allergies Allergies: Allergies Allergy/AdvReac Type Severity Reaction Status Date / Time No Known Allergies Allergy Verified 02/18/18 21:53 - Current Living Status Usual Living Arrangement: With Significant Other - Current Mental Status Evaluation Appearance: Disheveled Attitude: Guarded - Affect Affect: Constrictive Appropriateness: Not Appropriate - Mood Mood: Depressed - Speech/Language Expressive: Coherent, Delayed Receptive: Age Appropriate Comprehension of Spoken Words - Psychomotor Activity Psychomotor Activity: Slowed - Thought Process Thought Process: Circumstantial - Thought Content Hallucinations: Absent Delusions: Absent - Self Perception Self Perception: No Impairment - Cognition Attention: Diminished Memory, Immediate Recall: Impaired Memory, Short Term: 2/3 Memory, Remote with Promptin/3 - Concentration Serial Sevens Intact: No Simple Calculations Intact: No - Abstraction Proverb Interpretation: Impaired Judgement: Moderately Impaired - Insight Insight: Impaired - Impulse Control Impulse Control: Minimally Impaired - Suicidal Ideation Suicidal Ideation: No - Homicidal Ideation Homicidal Ideation: No Assessment/Plan 1) remeron 15mg po hs. 2) Patient lacks functional capacity to make informed medical decisions at this time.
--- NOTE | 2018-03-06 13:37 | PN ---
Teaching Attending Note Name of Resident: Fernando Ricci ATTENDING PHYSICIAN STATEMENT I saw and evaluated the patient. I reviewed the resident's note and discussed the case with the resident. I agree with the resident's findings and plan as documented. SUBJECTIVE:states she hurts all over and is tired. states she needs help making decisions OBJECTIVE: Last Vital Signs Temp Pulse Resp BP Pulse Ox 98.5 F 82 18 112/60 95 03/06/18 06:55 03/06/18 10:35 03/06/18 10:35 03/06/18 10:35 03/05/18 21:00 General NAD, bitemporal wasting, prominent clavicles, thin extremities, CV S1 S2 RRR no murmur/rub/gallop Lungs CTA B/L no wheezing ASSESSMENT AND PLAN: 77 yo F with reportedly prolonged stay at [facility] for PNA, cdiff (requiring fecal transplant), 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 Sacral wound-repeat CT showing no signs of OM. cont with local wound care, frequent turning. not a candidate for wound vac. 2. Severe malnutrition- as evident by body habitus and low BMI. yesterday with me was agreeable with PEG and then stated she did not want it later in the day. family wants PEG. psych to evaluate for competency. will need to get Ethics involved as well. unable to give Clinimix or TPN as pt has no IV access and has pulled out multiple lines already on this stay. 3. depression- believe patient is depressed and may be aiding to her refusal of treatment and care. psych to evaluate and may benefit from anti-depressant which may also increase appetite. 4. Hypoglycemia- having periods of hypoglycemia due to poor oral intake. refuses IV access. glucagon prn for hypoglycemia. cont BGM Q6H, D50 prn 5. PNA- likely aspiration. no peripheral access. cont with vanco/ceftaz with HD. 6. Cdiff- no more diarrhea. on vanco taper. currently daily for 7 days. contact precautions 7. Anemia- Hgb stable. no indication for transfusion. epogen 8. ESRD on HD- cont per normal schedule 9. DVT ppx- SCD. would hold pharmacolgic anticoagulation with recent large GI bleed 10. Ethics consulted to help with how to proceed in the event that pt is determined not competent and family wants to pursue with PEG placement (which they said they will). also awaiting for son to procure documents indicating that he is HCP, as there is no documentation at this time. palliative care on board.
--- NOTE | 2018-03-06 15:02 | PN ---
Progress Note (short form) - Note Progress Note: seen in her room resting comfortably intermittently refusing meds Vital Signs Period Temp Pulse Resp BP Sys/Franco Pulse Ox Last 24 Hr 97.7 F-98.5 F 67-82 18-20 95-144/43-70 95 cor-rrr llungs decreased bs at bases abd soft,nt ext no edema CBC, BMP 03/06/18 07:00 03/06/18 07:[address] and mri- no ostoemyelitis a/p ?pneumonia-+effusion despite HD consider thoracentesis vancomycin/fortaz with HD today- no IV access d/w residents earlier today, should get vancomycin and fortaz with each HD as no peripheral access repeat cxray after next HD check vanco trough with next HD sacral ulcer- needs good wound care and nutrition currently no evidence of osteomyelitis family is aware that her overall status is poor at best cxray c/w volume overload- improved after hd history of cdiff- continue po vancomycin esrd/hd anemia history of ecoli esbl wound infection continue contact isolation wound care per surgery d/w resident Dr Lauri aguayo Problem List - Problems (1) Sacral decubitus ulcer Code(s): L89.159 - PRESSURE ULCER OF SACRAL REGION, UNSPECIFIED STAGE Qualifiers: Pressure injury stage: stage 4 Qualified Code(s): L89.154 - Pressure ulcer of sacral region, stage 4 (2) ESRD (end stage renal disease) on dialysis Code(s): N18.6 - END STAGE RENAL DISEASE; Z99.2 - DEPENDENCE ON RENAL DIALYSIS (3) C. difficile colitis Code(s): A04.72 - ENTEROCOLITIS D/T CLOSTRIDIUM DIFFICILE, NOT SPCF RECUR (4) History of ESBL E. coli infection Code(s): Z86.19 - PERSONAL HISTORY OF OTHER INFECTIOUS AND PARASITIC DISEASES
--- NOTE | 2018-03-06 17:30 | PN ---
Physical Exam: SUBJECTIVE: Patient seen and examined at bedside. Agitated overnight. HD today. OBJECTIVE: Vital Signs Period Temp Pulse Resp BP Sys/Franco Pulse Ox Last 24 Hr 97.7 F-98.5 F 67-82 18-20 95-144/43-70 95 GENERAL: Cachechtic, AD, Facial grimacing HEAD: NC/AT LUNGS: CTA B/L HEART: RRR No MRG S1S2. EXTREMITIES: muscle atrophy throughout, thin/frail, SKIN: Sacral Ulcer Laboratory Results - last 24 hr 03/05/18 03/06/18 03/06/18 22:38 07:00 07:00 WBC 4.8 RBC 2.64 L Hgb 8.3 L Hct 26.0 L MCV 98.4 H MCH 31.6 MCHC 32.1 RDW 19.8 H Plt Count 232 MPV 9.4 Sodium 142 Potassium 4.3 Chloride 102 Carbon Dioxide 30 Anion Gap 9 BUN 17 Creatinine 3.2 H Creat Clearance w eGFR 14.01 POC Glucometer 72 Random Glucose 55 L Calcium 8.4 L Phosphorus 3.4 Total Bilirubin 0.6 AST 18 ALT 10 L Alkaline Phosphatase 220 H Total Protein 6.9 Albumin 1.7 L Blood Type Antibody Screen Antibody Identification Antigen Identification Direct Antiglob Test 03/06/18 03/06/18 07:00 11:16 WBC RBC Hgb Hct MCV MCH MCHC RDW Plt Count MPV Sodium Potassium Chloride Carbon Dioxide Anion Gap BUN Creatinine Creat Clearance w eGFR POC Glucometer 140 Random Glucose Calcium Phosphorus Total Bilirubin AST ALT Alkaline Phosphatase Total Protein Albumin Blood Type O POSITIVE Antibody Screen Positive H Antibody Identification Anti-lc Antigen Identification No Result Required. Direct Antiglob Test Negative Active Medications Generic Name Dose Route Start Last Admin Trade Name Freq PRN Reason Stop Dose Admin Acetaminophen 650 mg 02/20/18 22:37 02/27/18 11:35 Tylenol - PO 650 mg Q6H PRN Administration FEVER Amino Acids 30 ml 02/27/18 22:00 03/06/18 05:22 Prosource No Carb Liquid Pkt PO Not Given TID [facility] Amlodipine Besylate 10 mg 02/20/18 13:03 03/06/18 11:57 Norvasc - PO Not Given DAILY [facility] Collagenase 1 applic 02/20/18 10:00 03/05/18 10:09 Santyl - TP 1 applic DAILY [facility] Administration Protocol Emollient Ointment 1 applic 03/02/18 18:00 03/05/18 10:09 Aquaphor - TP 1 applic DAILY [facility] Administration Glucagon 1 mg 03/05/18 13:52 Glucagon - SQ [id number] PRN HYPOGLYCEMIA Insulin Aspart 1 vial 02/24/18 09:43 03/06/18 11:57 Novolog Vial Sliding Scale - SQ Not Given ACHS [facility] Protocol Lactobacillus Acidophilus 1 tab 02/20/18 10:00 03/06/18 11:57 Bacid - PO Not Given DAILY [facility] Metoprolol Tartrate 25 mg 02/20/18 10:00 03/06/18 11:56 Lopressor - PO Not Given BID [facility] Mirtazapine 15 mg 03/06/18 22:00 Remeron - PO HS [facility] Morphine Sulfate 5 mg 03/04/18 08:39 03/06/18 07:45 Morphine 10 Mg/5 Ml Liquid PO 5 mg Q6H PRN Administration PAIN LEVEL 7 - 10 Vancomycin HCl 125 mg 03/03/18 10:00 03/06/18 11:57 Vancomycin Oral Solution PO Not Given DAILY [facility] ASSESSMENT/PLAN: Patient is a 77 year old female with history of ESRD on HD Mon, Wed, Sun, s/p kidney transplant 10/08, diabetes mellitus, hypertension, Afib not on anticoagulation due to GI bleed on prior admission, recently discharged from [facility], presents for complaint of sacral ulcer, requiring wound care. Stage IV sacral decubitus ulcer -Surgery--> Santyl to sacrum daily, Alleven over sacrum, Alleven over b/l heels , Offload pressure areas with frequent repositioning, - MRI of Lumbar spine and Pelvis ---> "Osteomyelitis cannot be excluded 02/20/18 " -3 phase bone scan to r/o osteo NOT DONE. Per ID, low clinical suspicion -02/25/18 ID and Hospitalist discussed treatment with family this afternoon. Bone biopsy not recommended at this time. Low clinical suspicion for osteomyelitis. Radiology re-evaluated imaging with ID and concur osteo very unlikely in light of recent imaging studies. - Pt's pain unrelenting to Tylenol. Morphine 10 mg/5ml liquid Q6H PRN Pain 02/26/18 CT Abd/Pelvis--> No CT Evidence of osteomyelitis. Meeting 02/27/18, with medical research associate, social workers, risk assesment for plan of action and next step moving forward. # Right Base infiltrate -Chest XRAY 02/28/18- Right pulmonary and pleural changes have increased. There is progressive fluid with infiltrate. -Pt afebrile, no WBC however pt may not be able to mount white count. -03/01/18 vancomycin/fortaz administered with HD in light of no I.V access -Legionella urine antigen negative, Strep pneumo urine antigen negative -Will get Vanco and Fortaz with each HD session as pt has no peripheral I.V access. HD today 03/06/18--> REMOVED 1.5 KGS ESRD on hemodialysis -Nephrology-Dr Winters on board. HD 03/04/18 - Permacath drawn blood cultures--NO GROWTH - Wound culture--Proteus species, MRSA, VR EC F -Blood cultures 02/25 Negative C. Difficile infection -ID On board. Recommends following: decrease to daily now for 1 more day and then po vancomycin 125 mg every 2 days for another month then every 3 days for another month. -Contact precautions Atrial fibrillation -Lopressor 25 po bid -No AC at this time due to h/o G.I bleed on last admission. Hypertension -Continue Norvasc 10 mg PO daily Malnutrition -Banatrol -Prosource 3 times per day -Modified Barium Swallow tentative for Sunday -Dysphagia Whole, Crushed with applesauce, [place] Thick liquids, Magic Cup, Ensure Pudding -Evaluated by [facility] 03/05/18, for possible PEG tube placement. PER GI, pt not wanting PEG at this time. GI discussed this with Son Aries. Aries will speak to pt and further discuss with primary team. -Psychiatry, Dr Milligan evaluated pt this afternoon 03/06/18, deemed pt not competent to give informed consent regarding her medical treatment. Pt started on Remeron 15 HS. Ethics consulted #Urinary Retention -Urology on board -Continue to monitor urine output FEN No IV fluids Monitor electrolytes Renal, sodium controlled, diabetic diet. Prophylaxis -SCDs, TEDs b/l lower extremities. No anticoagulation in light of G.I bleed on previous admission. Disposition- Med-Surg Visit type - Emergency Visit Emergency Visit: Yes ED Registration Date: 02/27/18 Care time: The patient presented to the Emergency Department on the above date and was hospitalized for further evaluation of their emergent condition. - New Patient This patient is new to me today: No - Critical Care Critical Care patient: No - Discharge Referral Referred to [facility] Med P.C.: No
[2018-03-06] MEDS: COLLAGENASE CLOSTRIDIUM HIST. 30 GRAMS TUBE TP SCH (18:27)
[2018-03-06] MEDS: MIRTAZAPINE 15 MG TABLET (FP) PO SCH (22:39)
[2018-03-07] MEDS: AMINO ACIDS/PROTEIN HYDROLYS 30 ML LIQUID.PKT PO SCH ×3 (06:32→21:29)
[2018-03-07] MEDS: BANATROL PLUS POWDER PACKET PO SCH ×3 (06:32→21:29)
[2018-03-07] MEDS: INSULIN SLIDING SCALE (NOVOLOG) 1 VIAL SQ SCH ×4 (06:33→21:30)
[2018-03-07] MEDS: amLODIPine BESYLATE 10 MG TABLET (FP) PO SCH (10:08)
[2018-03-07] MEDS: MINERAL OIL/PET HY-PHL TOPICAL OINTMENT 454 GM JAR TP SCH (10:08)
[2018-03-07] MEDS: LACTOBACILLUS ACIDOPHILUS 1 TABLET PO SCH (10:08)
[2018-03-07] MEDS: METOPROLOL TARTRATE 25 MG TABLET (FP) PO SCH ×2 (10:08→21:29)
[2018-03-07] MEDS: VANCOMYCIN 250 MG/5 ML ORAL SOLUTION PO SCH (10:09)
[2018-03-07] MEDS: COLLAGENASE CLOSTRIDIUM HIST. 30 GRAMS TUBE TP SCH (10:14)
--- NOTE | 2018-03-07 13:25 | PN ---
Teaching Attending Note Name of Resident: Fernando Ricci ATTENDING PHYSICIAN STATEMENT I saw and evaluated the patient. I reviewed the resident's note and discussed the case with the resident. I agree with the resident's findings and plan as documented. SUBJECTIVE:c/o diffuse body pains. can not specify if one area is more painful. denies CP or SOB OBJECTIVE: Last Vital Signs Temp Pulse Resp BP Pulse Ox 98.2 F 71 20 150/58 L 94 L 03/07/18 09:57 03/07/18 09:57 03/07/18 09:57 03/07/18 09:57 03/07/18 09:00 General NAD, frail CV S1 S2 RRR no murmur/rub/gallop Lungs CTA B/L no wheezing ASSESSMENT AND PLAN: 77 yo F with reportedly prolonged stay at [facility] for PNA, cdiff (requiring fecal transplant), 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 Sacral wound-repeat CT showing no signs of OM. cont with local wound care, frequent turning. not a candidate for wound vac. 2. Severe malnutrition- as evident by body habitus and low BMI. family wants peg. awaiting ethics to determine next step as pt has been refusing everything. no IV access to give nutritional support. cont encouragement to eat. 3. depression-started on remeron. 4. Hypoglycemia- having periods of hypoglycemia due to poor oral intake. refuses IV access. glucagon prn for hypoglycemia. cont BGM Q6H, D50 prn 5. PNA- likely aspiration. no peripheral access. cont with vanco/ceftaz with HD. 6. Cdiff- no more diarrhea. on vanco taper. currently daily for 7 days. contact precautions 7. Anemia- Hgb stable. no indication for transfusion. epogen 8. ESRD on HD- cont per normal schedule. plan to do vein maping and as much as possible during this hospital stay to start process of obtaining new HD access 9. DVT ppx- SCD. would hold pharmacolgic anticoagulation with recent large GI bleed 10. pt lacks decision making capacity. awaiting for son to procure HCP forms and ethics on next step on how to proceed
--- NOTE | 2018-03-07 13:44 | PN ---
Progress Note, Physician History of Present Illness: Pt seen and examined at bedside. She appears comfortable. She went for vein mapping. - Current Medication List Current Medications: Active Medications Acetaminophen (Tylenol -) 650 mg PO Q6H PRN PRN Reason: FEVER Last Admin: 02/27/18 11:35 Dose: 650 mg Amino Acids (Prosource No Carb Liquid Pkt) 30 ml PO TID [facility] Last Admin: 03/07/18 06:32 Dose: Not Given Amlodipine Besylate (Norvasc -) 10 mg PO DAILY [facility] Last Admin: 03/07/18 10:08 Dose: 10 mg Collagenase (Santyl -) 1 applic TP DAILY [facility]; Protocol Last Admin: 03/07/18 10:14 Dose: 1 applic Emollient Ointment (Aquaphor -) 1 applic TP DAILY [facility] Last Admin: 03/07/18 10:08 Dose: 1 applic Glucagon (Glucagon -) 1 mg SQ [id number] PRN PRN Reason: HYPOGLYCEMIA Ceftazidime 2 gm/ Dextrose 100 mls @ 200 mls/hr IVPB ONCE ONE; Protocol Stop: 03/08/18 10:29 Insulin Aspart (Novolog Vial Sliding Scale -) 1 vial SQ ACHS [facility]; Protocol Last Admin: 03/07/18 13:25 Dose: Not Given Lactobacillus Acidophilus (Bacid -) 1 tab PO DAILY [facility] Last Admin: 03/07/18 10:08 Dose: 1 tab Metoprolol Tartrate (Lopressor -) 25 mg PO BID [facility] Last Admin: 03/07/18 10:08 Dose: 25 mg Mirtazapine (Remeron -) 15 mg PO HS [facility] Last Admin: 03/06/18 22:39 Dose: 15 mg Vancomycin HCl (Vancomycin Oral Solution) 125 mg PO DAILY [facility] Last Admin: 03/07/18 10:09 Dose: 125 mg Vancomycin HCl (Vancomycin (Pre-Docked)) 1,000 mg IVPB ONCE ONE; Protocol Stop: 03/08/18 10:01 - Objective Vital Signs: Vital Signs Temperature 98.2 F 03/07/18 09:57 Pulse Rate 71 03/07/18 09:57 Respiratory Rate 20 03/07/18 09:57 Blood Pressure 150/58 L 03/07/18 09:57 O2 Sat by Pulse Oximetry (%) 94 L 03/07/18 09:00 Constitutional: Yes: Calm Eyes: Yes: Conjunctiva Clear HENT: Yes: Atraumatic Neck: Yes: Supple Cardiovascular: Yes: S1, S2 Respiratory: Yes: CTA Bilaterally Gastrointestinal: Yes: Soft Genitourinary: Yes: Incontinence Edema: No Neurological: Yes: Oriented Labs: CBC, BMP 03/06/18 07:00 03/06/18 07:00 Problem List - Problems (1) ESRD (end stage renal disease) on dialysis Code(s): N18.6 - END STAGE RENAL DISEASE; Z99.2 - DEPENDENCE ON RENAL DIALYSIS (2) Sacral decubitus ulcer Code(s): L89.159 - PRESSURE ULCER OF SACRAL REGION, UNSPECIFIED STAGE Qualifiers: Pressure injury stage: stage 4 Qualified Code(s): L89.154 - Pressure ulcer of sacral region, stage 4 Assessment/Plan Current Medications Generic Name Dose Route Start Last Admin Trade Name Freq PRN Reason Stop Dose Admin Acetaminophen 650 mg 02/20/18 22:37 02/27/18 11:35 Tylenol - PO 650 mg Q6H PRN Administration FEVER Amino Acids 30 ml 02/27/18 22:00 03/07/18 06:32 Prosource No Carb Liquid Pkt PO Not Given TID [facility] Amlodipine Besylate 10 mg 02/20/18 13:03 03/07/18 10:08 Norvasc - PO 10 mg DAILY [facility] Administration Collagenase 1 applic 02/20/18 10:00 03/07/18 10:14 Santyl - TP 1 applic DAILY [facility] Administration Protocol Emollient Ointment 1 applic 03/02/18 18:00 03/07/18 10:08 Aquaphor - TP 1 applic DAILY [facility] Administration Glucagon 1 mg 03/05/18 13:52 Glucagon - SQ [id number] PRN HYPOGLYCEMIA Ceftazidime 2 gm/ Dextrose 100 mls @ 200 mls/hr 03/08/18 10:00 IVPB 03/08/18 10:29 ONCE ONE Protocol Insulin Aspart 1 vial 02/24/18 09:43 03/07/18 13:25 Novolog Vial Sliding Scale - SQ Not Given ACHS [facility] Protocol Lactobacillus Acidophilus 1 tab 02/20/18 10:00 03/07/18 10:08 Bacid - PO 1 tab DAILY [facility] Administration Metoprolol Tartrate 25 mg 02/20/18 10:00 03/07/18 10:08 Lopressor - PO 25 mg BID [facility] Administration Mirtazapine 15 mg 03/06/18 22:00 03/06/18 22:39 Remeron - PO 15 mg HS [facility] Administration Vancomycin HCl 125 mg 03/03/18 10:00 03/07/18 10:09 Vancomycin Oral Solution PO 125 mg DAILY [facility] Administration Vancomycin HCl 1,000 mg 03/08/18 10:00 Vancomycin (Pre-Docked) IVPB 03/08/18 10:01 ONCE ONE Protocol Impression 1. ESRD 2. failed kidney transplant 3. hx DM 4. Hx HTN 5. sacral ulcer 6. post op infection 7. c.diff 8. a-fib 9. failure to thrive 10.malnutrition 11. anemia 12. GI bleed 13. PNA Plan - HD in am - abx per ID with HD - cont rehab - cont wound care - follow vein mapping - epogen for anemia - will follow Dr Winters
--- NOTE | 2018-03-07 15:13 | PN ---
Physical Exam: SUBJECTIVE: Patient seen and examined at bedside. Agitated overnight, refusing PO intake. Confused this morning, incoherent. Itching all over. OBJECTIVE: Vital Signs Period Temp Pulse Resp BP Sys/Franco Pulse Ox Last 24 Hr 97.8 F-98.4 F 65-79 20-20 131-151/58-77 94-95 GENERAL: Agitated, confused, cachexia, lethargic HEAD: NC/AT LUNGS: CTA Anteriorly HEART: RRR No MRG S1S2 ABDOMEN: NDNT No HSM EXTREMITIES: Frail, muscle atrophy, bandages on heels b/l SKIN: Sacral ulcer Laboratory Results - last 24 hr 03/06/18 03/06/18 03/07/18 17:20 22:31 06:29 POC Glucometer 73 68 96 03/07/18 12:12 POC Glucometer 130 Active Medications Generic Name Dose Route Start Last Admin Trade Name Freq PRN Reason Stop Dose Admin Acetaminophen 650 mg 02/20/18 22:37 02/27/18 11:35 Tylenol - PO 650 mg Q6H PRN Administration FEVER Amino Acids 30 ml 02/27/18 22:00 03/07/18 13:58 Prosource No Carb Liquid Pkt PO 30 ml TID [facility] Administration Amlodipine Besylate 10 mg 02/20/18 13:03 03/07/18 10:08 Norvasc - PO 10 mg DAILY [facility] Administration Collagenase 1 applic 02/20/18 10:00 03/07/18 10:14 Santyl - TP 1 applic DAILY [facility] Administration Protocol Emollient Ointment 1 applic 03/02/18 18:00 03/07/18 10:08 Aquaphor - TP 1 applic DAILY [facility] Administration Epoetin Abe 10,000 unit 03/08/18 13:44 Epogen - IVPUSH 03/08/18 13:45 ONCE ONE Glucagon 1 mg 03/05/18 13:52 Glucagon - SQ [id number] PRN HYPOGLYCEMIA Ceftazidime 2 gm/ Dextrose 100 mls @ 200 mls/hr 03/08/18 10:00 IVPB 03/08/18 10:29 ONCE ONE Protocol Sodium Chloride 250 mls @ 3,000 mls/hr 03/07/18 13:44 Normal Saline - IV 03/08/18 13:44 PRN PRN Hypotension during Dialysis Insulin Aspart 1 vial 02/24/18 09:43 03/07/18 13:25 Novolog Vial Sliding Scale - SQ Not Given ACHS [facility] Protocol Lactobacillus Acidophilus 1 tab 02/20/18 10:00 03/07/18 10:08 Bacid - PO 1 tab DAILY [facility] Administration Metoprolol Tartrate 25 mg 02/20/18 10:00 03/07/18 10:08 Lopressor - PO 25 mg BID [facility] Administration Mirtazapine 15 mg 03/06/18 22:00 03/06/18 22:39 Remeron - PO 15 mg HS [facility] Administration Vancomycin HCl 125 mg 03/03/18 10:00 03/07/18 10:09 Vancomycin Oral Solution PO 125 mg DAILY [facility] Administration Vancomycin HCl 1,000 mg 03/08/18 10:00 Vancomycin (Pre-Docked) IVPB 03/08/18 10:01 ONCE ONE Protocol ASSESSMENT/PLAN: Patient is a 77 year old female with history of ESRD on HD Mon, Wed, Fri, s/p kidney transplant 10/08, diabetes mellitus, hypertension, Afib not on anticoagulation due to GI bleed on prior admission, recently discharged from [facility], presents for complaint of sacral ulcer, requiring wound care. Stage IV sacral decubitus ulcer -Surgery--> Santyl to sacrum daily, Alleven over sacrum, Alleven over b/l heels , Offload pressure areas with frequent repositioning, - MRI of Lumbar spine and Pelvis ---> "Osteomyelitis cannot be excluded 02/20/18 " -3 phase bone scan to r/o osteo NOT DONE. Per ID, low clinical suspicion -02/25/18 ID and Hospitalist discussed treatment with family this afternoon. Bone biopsy not recommended at this time. Low clinical suspicion for osteomyelitis. Radiology re-evaluated imaging with ID and concur osteo very unlikely in light of recent imaging studies. - Pt's pain unrelenting to Tylenol. Morphine 10 mg/5ml liquid Q6H PRN Pain 02/26/18 CT Abd/Pelvis--> No CT Evidence of osteomyelitis. Meeting 02/27/18, with medical liaison, social workers, risk assesment for plan of action and next step moving forward. -Vein Mapping today 03/07/18 # Right Base infiltrate -Chest XRAY 02/28/18- Right pulmonary and pleural changes have increased. There is progressive fluid with infiltrate. -Pt afebrile, no WBC however pt may not be able to mount white count. -03/01/18 vancomycin/fortaz administered with HD in light of no I.V access -Legionella urine antigen negative, Strep pneumo urine antigen negative -Will get Vanco and Fortaz with each HD session as pt has no peripheral I.V access. HD 03/05/18--> REMOVED 1.5 KGS ESRD on hemodialysis -Nephrology-Dr Winters on board. HD 03/04/18 - Permacath drawn blood cultures--NO GROWTH - Wound culture--Proteus species, MRSA, VR EC F -Blood cultures 02/25 Negative C. Difficile infection -ID On board. Recommends following: po vancomycin 125 mg every 2 days for another month then every 3 days for another month. -Contact precautions Atrial fibrillation -Lopressor 25 po bid -No AC at this time due to h/o G.I bleed on last admission. Hypertension -Continue Norvasc 10 mg PO daily Malnutrition -Dr Alvarado to be contacted regarding Ethics issue if PEG placement as pt not competent to make decision and son wants to proceed with PEG placement. -Banatrol -Prosource 3 times per day -Modified Barium Swallow tentative for Sunday -Dysphagia Whole, Crushed with applesauce, [place] Thick liquids, Magic Cup, Ensure Pudding -Evaluated by [facility] 03/05/18, for possible PEG tube placement. PER GI, pt not wanting PEG at this time. GI discussed this with Son Aries. Aries will speak to pt and further discuss with primary team. -Psychiatry, Dr Milligan evaluated pt 03/06/18, deemed pt not competent to give informed consent regarding her medical treatment. Pt started on Remeron 15 HS. #Urinary Retention -Urology on board -Continue to monitor urine output FEN No IV fluids Monitor electrolytes Renal, sodium controlled, diabetic diet. Prophylaxis -SCDs, TEDs b/l lower extremities. No anticoagulation in light of G.I bleed on previous admission. Disposition- Med-Surg Visit type - Emergency Visit Emergency Visit: Yes ED Registration Date: 02/27/18 Care time: The patient presented to the Emergency Department on the above date and was hospitalized for further evaluation of their emergent condition. - New Patient This patient is new to me today: No - Critical Care Critical Care patient: No - Discharge Referral Referred to [facility] No
--- NOTE | 2018-03-07 16:30 | PN ---
Progress Note (short form) - Note Progress Note: seen in her room resting comfortably intermittently refusing meds Vital Signs Period Temp Pulse Resp BP Sys/Franco Pulse Ox Last 24 Hr 97.8 F-98.4 F 65-79 20-20 131-151/58-77 94-95 cor-rrr lungs decreased bs at bases abd soft,nt ext no edema CBC, BMP 03/06/18 07:00 03/06/18 07:[address] and mri- no osteomyelitis a/p ?pneumonia-+effusion despite HD consider thoracentesis vancomycin/fortaz with HD in am cxray markedly improved- suspect combination fluid and possible infiltrate would d/c antibiotics after tomorrows dose and observe- will have completed one week sacral ulcer- needs good wound care and nutrition currently no evidence of osteomyelitis family is aware that her overall status is poor at best cxray c/w volume overload- improved after hd history of cdiff- continue po vancomycin esrd/hd anemia history of ecoli esbl wound infection continue contact isolation wound care per surgery d/w resident Dr Lauri aguayo Problem List - Problems (1) Sacral decubitus ulcer Code(s): L89.159 - PRESSURE ULCER OF SACRAL REGION, UNSPECIFIED STAGE Qualifiers: Pressure injury stage: stage 4 Qualified Code(s): L89.154 - Pressure ulcer of sacral region, stage 4 (2) ESRD (end stage renal disease) on dialysis Code(s): N18.6 - END STAGE RENAL DISEASE; Z99.2 - DEPENDENCE ON RENAL DIALYSIS (3) C. difficile colitis Code(s): A04.72 - ENTEROCOLITIS D/T CLOSTRIDIUM DIFFICILE, NOT SPCF RECUR (4) History of ESBL E. coli infection Code(s): Z86.19 - PERSONAL HISTORY OF OTHER INFECTIOUS AND PARASITIC DISEASES
[2018-03-07] MEDS: MIRTAZAPINE 15 MG TABLET (FP) PO SCH (21:29)
[2018-03-08] MEDS: BANATROL PLUS POWDER PACKET PO SCH ×3 (06:25→22:06)
[2018-03-08] MEDS: AMINO ACIDS/PROTEIN HYDROLYS 30 ML LIQUID.PKT PO SCH ×3 (06:25→22:06)
[2018-03-08] MEDS: INSULIN SLIDING SCALE (NOVOLOG) 1 VIAL SQ SCH ×4 (06:26→22:06)
[2018-03-08] MEDS ORDERED: SODIUM CHLORIDE 250 ML IV PRN (08:00)
[2018-03-08 08:45] LABS: HEMATOCRIT 27.2 % (32.4-45.2); HEMOGLOBIN 8.4 GM/dL (10.7-15.3); MEAN CELL VOLUME 100.1 fl (80-96); MEAN PLT VOLUME 8.8 fl (7.5-11.1); PLATELET COUNT 231 K/MM3 (134-434); RBC 2.72 M/mm3 (3.60-5.2); RDW 20.3 % (11.6-15.6); WHITE BLOOD COUNT 6.9 K/mm3 (4.0-10.0)
--- NOTE | 2018-03-08 09:00 | PN ---
Progress Note (short form) - Note Progress Note: UE vein mapping done. Awaiting official results before establishing operative plan.
[2018-03-08 09:33] LABS: ANION GAP 6 MMOL/L (8-16); BLOOD UREA NITROGEN 19 mg/dL (7-18); CALCIUM 8.4 mg/dL (8.5-10.1); CHLORIDE 106 mmol/L (98-107); CO2 31 mmol/L (21-32); CREATININE 3.4 mg/dL (0.55-1.3); GLUCOSE,RANDOM 79 mg/dL (74-106); SODIUM 144 mmol/L (136-145)
[2018-03-08] MEDS ORDERED: PT OWN MED DRAWER 7, Y5N ONE (09:38)
[2018-03-08] MEDS ORDERED: EPOETIN ALFA 10,000 UNIT/1 ML VIAL IVPUSH ONE (10:00)
[2018-03-08] MEDS ORDERED: VANCOMYCIN 1,000 MG in DEXTROSE 5%-WATER - 250 ML IVPB ONE (10:00)
[2018-03-08] MEDS ORDERED: CEFTAZIDIME PENTAHYDRATE 2 GM in DEXTROSE 5%-WATER 100 ML IVPB ONE (10:00)
[2018-03-08] MEDS ORDERED: VANCOMYCIN 1 GRAM (PRE-DOCKED) 1,000 MG/250 ML BAG IVPB ONE (10:00)
--- NOTE | 2018-03-08 11:06 | PN ---
Physical Exam: SUBJECTIVE: Patient seen and examined at bedside. No overnight events, resting comfortably in bed while room being set up for dialysis. Nurse reported that patient refusing much of her care. OBJECTIVE: Vital Signs Period Temp Pulse Resp BP Sys/Franco Pulse Ox Last 24 Hr 98 F-98.4 F 66-68 20-20 136-144/60-72 9 GENERAL: confused and oriented x1 this morning LUNGS: CTA HEART: RRR ABDOMEN: Nontender, BS present EXTREMITIES: cachectic appearing with muscular atrophy SKIN: Sacral ulcer unchanged from prior exam Laboratory Results - last 24 hr 03/07/18 03/07/18 03/07/18 12:12 16:50 21:05 WBC RBC Hgb Hct MCV MCH MCHC RDW Plt Count MPV Sodium Potassium Chloride Carbon Dioxide Anion Gap BUN Creatinine Creat Clearance w eGFR POC Glucometer 130 77 136 Random Glucose Calcium 03/07/18 03/08/18 03/08/18 21:09 05:53 07:15 WBC RBC Hgb Hct MCV MCH MCHC RDW Plt Count MPV Sodium 144 Potassium 4.0 Chloride 106 Carbon Dioxide 31 Anion Gap 6 L BUN 19 H Creatinine 3.4 H Creat Clearance w eGFR 13.06 POC Glucometer 349 77 Random Glucose 79 Calcium 8.4 L 03/08/18 07:15 WBC 6.9 RBC 2.72 L Hgb 8.4 L Hct 27.2 L MCV 100.1 H MCH 31.0 MCHC 31.0 L RDW 20.3 H Plt Count 231 MPV 8.8 Sodium Potassium Chloride Carbon Dioxide Anion Gap BUN Creatinine Creat Clearance w eGFR POC Glucometer Random Glucose Calcium Active Medications Generic Name Dose Route Start Last Admin Trade Name Berta PRN Reason Stop Dose Admin Acetaminophen 650 mg 02/20/18 22:37 02/27/18 11:35 Tylenol - PO 650 mg Q6H PRN Administration FEVER Amino Acids 30 ml 02/27/18 22:00 03/08/18 06:25 Prosource No Carb Liquid Pkt PO Not Given TID [facility] Amlodipine Besylate 10 mg 02/20/18 13:03 03/07/18 10:08 Norvasc - PO 10 mg DAILY [facility] Administration Collagenase 1 applic 02/20/18 10:00 03/07/18 10:14 Santyl - TP 1 applic DAILY [facility] Administration Protocol Emollient Ointment 1 applic 03/02/18 18:00 11/15/18 10:08 Aquaphor - TP 1 applic DAILY [facility] Administration Glucagon 1 mg 03/05/18 13:52 Glucagon - SQ [id number] PRN HYPOGLYCEMIA Insulin Aspart 1 vial 02/24/18 09:43 03/08/18 06:26 Novolog Vial Sliding Scale - SQ Not Given ACHS [facility] Protocol Lactobacillus Acidophilus 1 tab 02/20/18 10:00 03/07/18 10:08 Bacid - PO 1 tab DAILY [facility] Administration Metoprolol Tartrate 25 mg 02/20/18 10:00 03/07/18 21:29 Lopressor - PO 25 mg BID [facility] Administration Mirtazapine 15 mg 03/06/18 22:00 03/07/18 21:29 Remeron - PO 15 mg HS [facility] Administration Vancomycin HCl 125 mg 03/03/18 10:00 03/07/18 10:09 Vancomycin Oral Solution PO 125 mg DAILY [facility] Administration ASSESSMENT/PLAN: Patient is a 77 year old female with history of ESRD on HD Sun, Sun, Sun, s/p kidney transplant 10/08, diabetes mellitus, hypertension, Afib not on anticoagulation due to GI bleed on prior admission, recently discharged from [facility], presents for complaint of sacral ulcer, requiring wound care. #Stage IV sacral decubitus ulcer: stable, unchanged from yesterday -Santyl to sacrum daily, Alleven over sacrum, Alleven over b/l heels, Offload pressure areas with frequent repositioning, -Pt's pain unrelenting to Tylenol. Morphine 10 mg/5ml liquid Q6H PRN Pain -Vein Mapping done #Failure to Thrive: conversations continue to take place about PEG placement -will need to confirm with family what the plan would be for PEG placement -psych deemed patient incapable of signing consent -Prosource 3 times per day -Modified Barium Swallow tentative for Sunday -Dysphagia Whole, Crushed with applesauce, [place] Thick liquids, Magic Cup, Ensure Pudding -continue f/u by dietary #Right Base infiltrate: resolved -last dose of vanc/fortaz during dialysis and then observe per ID #ESRD on hemodialysis -Dialysis today #C. Difficile infection -continue PO vanc #Atrial fibrillation -Lopressor 25 po bid -No AC at this time due to h/o G.I bleed on last admission #Hypertension -Continue Norvasc 10 mg PO daily #Urinary Retention -Urology on board -Continue to monitor urine output FEN No IV fluids Monitor electrolytes Renal, sodium controlled, diabetic diet. Prophylaxis -SCDs, TEDs b/l lower extremities. No anticoagulation in light of G.I bleed on previous admission. Disposition- -continue to monitor on med surg Visit type - Emergency Visit Emergency Visit: No - New Patient This patient is new to me today: No - Critical Care Critical Care patient: No
--- NOTE | 2018-03-08 12:23 | PN ---
Teaching Attending Note Name of Resident: Amrik Carreon ATTENDING PHYSICIAN STATEMENT I saw and evaluated the patient. I reviewed the resident's note and discussed the case with the resident. I agree with the resident's findings and plan as documented. SUBJECTIVE:no complaints. pt noted to attempting to pull on Shiley catheter today. 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 Sacral wound-repeat CT showing no signs of OM. cont with local wound care, frequent turning. not a candidate for wound vac. 2. Severe malnutrition- as evident by body habitus and low BMI. family wants peg. awaiting ethics to determine next step as pt has been refusing everything. no IV access to give nutritional support. cont encouragement to eat and requested family to bring in favorite foods to encourage po. on remeron will hope will increase po. 3. depression-started on remeron. continues to refuse treatment and becomes agitated with staff. has attempted to pull out shiley and as per candy rolling machine operator does try to pull it out almost every session and also "swings" at her when trying to connect her. psych determine she lacks capacity 4. Hypoglycemia- having periods of hypoglycemia due to poor oral intake. refuses IV access. glucagon prn for hypoglycemia. cont BGM Q6H, D50 prn 5. PNA- likely aspiration. no peripheral access. cont with vanco/ceftaz with HD. will d/c after today 6. Cdiff- no more diarrhea. on vanco taper. currently daily for 7 days. contact precautions 7. Anemia- Hgb stable. no indication for transfusion. epogen 8. ESRD on HD- cont per normal schedule. vein maping completed yesterday. 9. DVT ppx- SCD. would hold pharmacolgic anticoagulation with recent large GI bleed 10. pt lacks decision making capacity. awaiting ethics board to determine if its ethical to proceed with PEG placement as patient has continued to refuse and becomes combative with treatment. if decides not to go forward with PEG placement pt would also stop HD and make patient comfortable on hospice.
[2018-03-08] MEDS: amLODIPine BESYLATE 10 MG TABLET (FP) PO SCH (13:29)
[2018-03-08] MEDS: LACTOBACILLUS ACIDOPHILUS 1 TABLET PO SCH (13:29)
[2018-03-08] MEDS: METOPROLOL TARTRATE 25 MG TABLET (FP) PO SCH ×2 (13:29→22:22)
[2018-03-08] MEDS: VANCOMYCIN 250 MG/5 ML ORAL SOLUTION PO SCH (13:33)
[2018-03-08] MEDS: COLLAGENASE CLOSTRIDIUM HIST. 30 GRAMS TUBE TP SCH (14:55)
[2018-03-08] MEDS: MINERAL OIL/PET HY-PHL TOPICAL OINTMENT 454 GM JAR TP SCH (14:55)
--- NOTE | 2018-03-08 17:43 | PN ---
Progress Note (short form) - Note Progress Note: 1. ESRD 2. failed kidney transplant 3. hx DM 4. Hx HTN 5. sacral ulcer 6. post op infection 7. c.diff 8. a-fib 9. failure to thrive 10.malnutrition 11. anemia 12. GI bleed 13. PNA Current Medications Acetaminophen (Tylenol -) 650 mg PO Q6H PRN PRN Reason: FEVER Last Admin: 02/27/18 11:35 Dose: 650 mg Amino Acids (Prosource No Carb Liquid Pkt) 30 ml PO TID [facility] Last Admin: 03/08/18 13:31 Dose: Not Given Amlodipine Besylate (Norvasc -) 10 mg PO DAILY [facility] Last Admin: 03/08/18 13:29 Dose: 10 mg Collagenase (Santyl -) 1 applic TP DAILY [facility]; Protocol Last Admin: 03/08/18 14:55 Dose: 1 applic Emollient Ointment (Aquaphor -) 1 applic TP DAILY [facility] Last Admin: 03/08/18 14:55 Dose: 1 applic Glucagon (Glucagon -) 1 mg SQ [id number] PRN PRN Reason: HYPOGLYCEMIA Insulin Aspart (Novolog Vial Sliding Scale -) 1 vial SQ ACHS [facility]; Protocol Last Admin: 03/08/18 16:46 Dose: Not Given Lactobacillus Acidophilus (Bacid -) 1 tab PO DAILY [facility] Last Admin: 03/08/18 13:29 Dose: 1 tab Metoprolol Tartrate (Lopressor -) 25 mg PO BID [facility] Last Admin: 03/08/18 13:29 Dose: 25 mg Mirtazapine (Remeron -) 15 mg PO HS [facility] Last Admin: 03/07/18 21:29 Dose: 15 mg Vancomycin HCl (Vancomycin Oral Solution) 125 mg PO DAILY [facility] Last Admin: 03/08/18 13:33 Dose: 125 mg Last Vital Signs Temp Pulse Resp BP Pulse Ox 97.0 F L 68 20 127/75 9 L 03/08/18 15:38 03/08/18 15:38 03/08/18 15:38 03/08/18 15:55 03/07/18 21:00 CBC, BMP 03/08/18 07:15 03/08/18 07:15 IMP- esrd tolerated dialysis Plan hd next week
[2018-03-08] MEDS: MIRTAZAPINE 15 MG TABLET (FP) PO SCH (22:22)
[2018-03-09] MEDS: BANATROL PLUS POWDER PACKET PO SCH ×3 (06:59→22:35)
[2018-03-09] MEDS: AMINO ACIDS/PROTEIN HYDROLYS 30 ML LIQUID.PKT PO SCH ×3 (06:59→22:35)
[2018-03-09] MEDS: INSULIN SLIDING SCALE (NOVOLOG) 1 VIAL SQ SCH ×4 (07:02→22:34)
--- NOTE | 2018-03-09 07:44 | PN ---
Progress Note (short form) - Note Progress Note: resting comfortable. no complaints today Current Medications Generic Name Dose Route Start Last Admin Trade Name Frehood PRN Reason Stop Dose Admin Acetaminophen 650 mg 02/20/18 22:37 02/27/18 11:35 Tylenol - PO 650 mg Q6H PRN Administration FEVER Amino Acids 30 ml 02/27/18 22:00 03/09/18 06:59 Prosource No Carb Liquid Pkt PO Not Given TID [facility] Amlodipine Besylate 10 mg 02/20/18 13:03 03/08/18 13:29 Norvasc - PO 10 mg DAILY [facility] Administration Collagenase 1 applic 02/20/18 10:00 03/08/18 14:55 Santyl - TP 1 applic DAILY [facility] Administration Protocol Emollient Ointment 1 applic 03/02/18 18:00 03/08/18 14:55 Aquaphor - TP 1 applic DAILY [facility] Administration Glucagon 1 mg 03/05/18 13:52 Glucagon - SQ [id number] PRN HYPOGLYCEMIA Insulin Aspart 1 vial 02/24/18 09:43 03/09/18 07:02 Novolog Vial Sliding Scale - SQ Not Given ACHS [facility] Protocol Lactobacillus Acidophilus 1 tab 02/20/18 10:00 03/08/18 13:29 Bacid - PO 1 tab DAILY [facility] Administration Metoprolol Tartrate 25 mg 02/20/18 10:00 03/08/18 22:22 Lopressor - PO Not Given BID [facility] Mirtazapine 15 mg 03/06/18 22:00 03/08/18 22:22 Remeron - PO Not Given HS [facility] Vancomycin HCl 125 mg 03/03/18 10:00 03/08/18 13:33 Vancomycin Oral Solution PO 125 mg DAILY [facility] Administration Last Vital Signs Temp Pulse Resp BP Pulse Ox 97.7 F 75 20 148/68 96 03/09/18 06:01 03/09/18 06:01 03/09/18 06:01 03/09/18 06:01 03/08/18 20:52 General NAD, frail CV S1 S2 RRR no murmur/rub/gallop Lungs CTA B/L no wheezing ASSESSMENT AND PLAN: 77 yo F with reportedly prolonged stay at [facility] for PNA, cdiff (requiring fecal transplant), 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 Sacral wound-repeat CT showing no signs of OM. cont with local wound care, frequent turning. not a candidate for wound vac. 2. Severe malnutrition- as evident by body habitus and low BMI. family wants peg. awaiting ethics to determine next step as pt has been refusing everything. no IV access to give nutritional support. cont encouragement to eat and requested family to bring in favorite foods to encourage po. on remeron will hope will increase po. 3. depression-started on remeron. continues to refuse treatment and becomes agitated with staff. has attempted to pull out shiley and as per take out waiter does try to pull it out almost every session and also "swings" at her when trying to connect her. psych determine she lacks capacity 4. Hypoglycemia- having periods of hypoglycemia due to poor oral intake. refuses IV access. glucagon prn for hypoglycemia. cont BGM Q6H, D50 prn 5. PNA- likely aspiration. no peripheral access. completed abx course. monitor off abx 6. Cdiff- no more diarrhea. on vanco taper day 7. will d/c after today. contact precautions 7. Anemia- Hgb stable. no indication for transfusion. epogen 8. ESRD on HD- cont per normal schedule. vein maping completed yesterday. 9. DVT ppx- SCD. would hold pharmacolgic anticoagulation with recent large GI bleed 10. pt lacks decision making capacity. awaiting ethics board to determine if its ethical to proceed with PEG placement as patient has continued to refuse and becomes combative with treatment. if decides not to go forward with PEG placement pt would also stop HD and make patient comfortable on hospice. Visit type - Emergency Visit Emergency Visit: Yes ED Registration Date: 02/27/18 Care time: The patient presented to the Emergency Department on the above date and was hospitalized for further evaluation of their emergent condition. - New Patient This patient is new to me today: No - Critical Care Critical Care patient: No - Discharge Referral Referred to [facility] Med P.C.: No Physician Referral: Rubén Calhoun MD ([facility])
[2018-03-09] MEDS: LACTOBACILLUS ACIDOPHILUS 1 TABLET PO SCH (11:12)
[2018-03-09] MEDS: amLODIPine BESYLATE 10 MG TABLET (FP) PO SCH (11:12)
[2018-03-09] MEDS: METOPROLOL TARTRATE 25 MG TABLET (FP) PO SCH ×2 (11:12→22:35)
[2018-03-09] MEDS: MINERAL OIL/PET HY-PHL TOPICAL OINTMENT 454 GM JAR TP SCH (11:12)
[2018-03-09] MEDS: VANCOMYCIN 250 MG/5 ML ORAL SOLUTION PO SCH (11:13)
--- NOTE | 2018-03-09 15:14 | PN ---
Progress Note (short form) - Note Progress Note: 1. ESRD 2. failed kidney transplant 3. hx DM 4. Hx HTN 5. sacral ulcer 6. post op infection 7. c.diff 8. a-fib 9. failure to thrive 10.malnutrition 11. anemia 12. GI bleed 13. PNA Current Medications Acetaminophen (Tylenol -) 650 mg PO Q6H PRN PRN Reason: FEVER Last Admin: 02/27/18 11:35 Dose: 650 mg Amino Acids (Prosource No Carb Liquid Pkt) 30 ml PO TID [facility] Last Admin: 03/09/18 06:59 Dose: Not Given Amlodipine Besylate (Norvasc -) 10 mg PO DAILY [facility] Last Admin: 03/09/18 11:12 Dose: 10 mg Collagenase (Santyl -) 1 applic TP DAILY [facility]; Protocol Last Admin: 03/08/18 14:55 Dose: 1 applic Emollient Ointment (Aquaphor -) 1 applic TP DAILY [facility] Last Admin: 03/09/18 11:12 Dose: 1 applic Glucagon (Glucagon -) 1 mg SQ [id number] PRN PRN Reason: HYPOGLYCEMIA Insulin Aspart (Novolog Vial Sliding Scale -) 1 vial SQ ACHS [facility]; Protocol Last Admin: 03/09/18 11:09 Dose: Not Given Lactobacillus Acidophilus (Bacid -) 1 tab PO DAILY [facility] Last Admin: 03/09/18 11:12 Dose: 1 tab Metoprolol Tartrate (Lopressor -) 25 mg PO BID [facility] Last Admin: 03/09/18 11:12 Dose: 25 mg Mirtazapine (Remeron -) 15 mg PO HS [facility] Last Admin: 03/08/18 22:22 Dose: Not Given Vancomycin HCl (Vancomycin Oral Solution) 125 mg PO DAILY [facility] Last Admin: 03/09/18 11:13 Dose: 125 mg Last Vital Signs Temp Pulse Resp BP Pulse Ox 97.7 F 75 20 148/68 96 03/09/18 06:01 03/09/18 06:01 03/09/18 06:01 03/09/18 06:01 03/08/18 20:52 CBC, BMP 03/08/18 07:15 03/08/18 07:15 IMP- esrd tolerated dialysis yesterday Plan hd next week
[2018-03-09] MEDS: COLLAGENASE CLOSTRIDIUM HIST. 30 GRAMS TUBE TP SCH (18:19)
[2018-03-09] MEDS: MIRTAZAPINE 15 MG TABLET (FP) PO SCH (22:35)
[2018-03-10] MEDS: AMINO ACIDS/PROTEIN HYDROLYS 30 ML LIQUID.PKT PO SCH ×2 (06:20→21:51)
[2018-03-10] MEDS: BANATROL PLUS POWDER PACKET PO SCH (06:20)
[2018-03-10] MEDS: INSULIN SLIDING SCALE (NOVOLOG) 1 VIAL SQ SCH ×4 (06:21→21:50)
--- NOTE | 2018-03-10 09:11 | PN ---
Teaching Attending Note Name of Resident: Fernando Ricci ATTENDING PHYSICIAN STATEMENT I saw and evaluated the patient. I reviewed the resident's note and discussed the case with the resident. I agree with the resident's findings and plan as documented. SUBJECTIVE:asymptomatic. no pain. no diarrhea. 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 Sacral wound-repeat CT showing no signs of OM. cont with local wound care, frequent turning. not a candidate for wound vac. 2. Severe malnutrition- as evident by body habitus and low BMI. family wants peg. awaiting ethics to determine next step as pt has been refusing everything. no IV access to give nutritional support. cont encouragement to eat and requested family to bring in favorite foods to encourage po. on remeron will hope will increase po. not safe to place central line as patient has been repetively attempting to pull out her peripheral lines and permacath. believe the risks of placing a central line and pulling it out poses risks during placement unless patient can be completely sedated for the procedure. 3. depression-started on remeron. continues to refuse treatment and becomes agitated with staff. has attempted to pull out shiley and as per business support administrator does try to pull it out almost every session and also "swings" at her when trying to connect her. psych determine she lacks capacity 4. Hypoglycemia- having periods of hypoglycemia due to poor oral intake. refuses IV access. glucagon prn for hypoglycemia. cont BGM Q6H, D50 prn 5. PNA- likely aspiration. no peripheral access. completed abx course. monitor off abx 6. Cdiff- no more diarrhea. completed vanco taper yesterday. contact precautions 7. Anemia- Hgb stable. no indication for transfusion. epogen 8. ESRD on HD- cont per normal schedule via permacath. vein maping completed. 9. DVT ppx- SCD. would hold pharmacolgic anticoagulation with recent large GI bleed 10. pt lacks decision making capacity. awaiting ethics board to determine if its ethical to proceed with PEG placement as patient has continued to refuse and becomes combative with treatment. if decides not to go forward with PEG placement pt would also stop HD and make patient comfortable on hospice.
[2018-03-10] MEDS: LACTOBACILLUS ACIDOPHILUS 1 TABLET PO SCH (10:01)
[2018-03-10] MEDS: MINERAL OIL/PET HY-PHL TOPICAL OINTMENT 454 GM JAR TP SCH (10:01)
[2018-03-10] MEDS: METOPROLOL TARTRATE 25 MG TABLET (FP) PO SCH ×2 (10:01→21:47)
[2018-03-10] MEDS: amLODIPine BESYLATE 10 MG TABLET (FP) PO SCH (10:02)
--- NOTE | 2018-03-10 10:47 | PN ---
Physical Exam: SUBJECTIVE: Patient seen and examined at bedside. hypoglycemic overnight. Weld juice given. OBJECTIVE: Vital Signs Period Temp Pulse Resp BP Sys/Franco Pulse Ox Last 24 Hr 97.7 F-98 F 71-88 18-20 141-152/66-70 97 GENERAL: Cachechtic, facial grimacing. HEAD: Normal with no signs of trauma. LUNGS: Poor inspiratory effort HEART: RRR No MRG [id number] EXTREMITIES: Muscle atrophy, cachechtic, bandages on b/l heels SKIN: Sacral ulcer Laboratory Results - last 24 hr 03/09/18 03/09/18 03/10/18 11:08 22:10 06:17 POC Glucometer 103 62 69 Active Medications Generic Name Dose Route Start Last Admin Trade Name Freq PRN Reason Stop Dose Admin Acetaminophen 650 mg 02/20/18 22:37 02/27/18 11:35 Tylenol - PO 650 mg Q6H PRN Administration FEVER Amino Acids 30 ml 02/27/18 22:00 03/10/18 06:20 Prosource No Carb Liquid Pkt PO Not Given TID [facility] Amlodipine Besylate 10 mg 02/20/18 13:03 03/10/18 10:02 Norvasc - PO Not Given DAILY [facility] Collagenase 1 applic 02/20/18 10:00 03/09/18 18:19 Santyl - TP Not Given DAILY [facility] Protocol Emollient Ointment 1 applic 03/02/18 18:00 03/10/18 10:01 Aquaphor - TP 1 applic DAILY [facility] Administration Glucagon 1 mg 03/05/18 13:52 Glucagon - SQ [id number] PRN HYPOGLYCEMIA Insulin Aspart 1 vial 02/24/18 09:43 03/10/18 06:21 Novolog Vial Sliding Scale - SQ Not Given ACHS H[facility] Protocol Lactobacillus Acidophilus 1 tab 02/20/18 10:00 03/10/18 10:01 Bacid - PO Not Given DAILY [facility] Metoprolol Tartrate 25 mg 02/20/18 10:00 03/10/18 10:01 Lopressor - PO Not Given BID H[facility] Mirtazapine 15 mg 03/06/18 22:00 03/09/18 22:35 Remeron - PO Not Given HS [facility] ASSESSMENT/PLAN: Patient is a 77 year old female with history of ESRD on HD Mon, Wed, Fri, s/p kidney transplant 10/08, diabetes mellitus, hypertension, Afib not on anticoagulation due to GI bleed on prior admission, recently discharged from [facility], presents for complaint of sacral ulcer, requiring wound care. Stage IV sacral decubitus ulcer -Surgery--> Santyl to sacrum daily, Alleven over sacrum, Alleven over b/l heels , Offload pressure areas with frequent repositioning, - MRI of Lumbar spine and Pelvis ---> "Osteomyelitis cannot be excluded 02/20/18 " -3 phase bone scan to r/o osteo NOT DONE. Per ID, low clinical suspicion -02/25/18 ID and Hospitalist discussed treatment with family this afternoon. Bone biopsy not recommended at this time. Low clinical suspicion for osteomyelitis. Radiology re-evaluated imaging with ID and concur osteo very unlikely in light of recent imaging studies. 02/26/18 CT Abd/Pelvis--> No CT Evidence of osteomyelitis. Meeting 02/27/18, with medical records auditor, social workers, risk assessment for plan of action and next step moving forward. -Vein Mapping completed -AWAITING ETHICS COMMITTEE INPUT TO PEG PLACEMENT. # Right Base infiltrate -Chest XRAY 03/06/18- Right pulmonary and pleural changes have DIMINISHED. STILL SOME CONGESTIVE CHANGES WITH BIBASILAR INFILTRATES. -Pt afebrile, no WBC however pt may not be able to mount white count. -03/01/18 vancomycin/fortaz administered with HD in light of no I.V access -Legionella urine antigen negative, Strep pneumo urine antigen negative Vanco/Fortaz D/C'ed. ESRD on hemodialysis -Nephrology-Dr Winters on board. HD 03/04/18 - Permacath drawn blood cultures--NO GROWTH - Wound culture--Proteus species, MRSA, VR EC F -Blood cultures 02/25 Negative #Hypoglycemia -Glucagon Q15 min SQ PRN hypoglycemia C. Difficile infection -Vanco 125 po every 48 hours -Contact precautions Atrial fibrillation -Lopressor 25 po bid -No AC at this time due to h/o G.I bleed on last admission. Hypertension -Continue Norvasc 10 mg PO daily Malnutrition -Dr Alvarado to be contacted regarding Ethics issue if PEG placement as pt not competent to make decision and son wants to proceed with PEG placement. -Prosource 3 times per day -Dysphagia Whole, Crushed with applesauce, [place] Thick liquids, Magic Cup, Ensure Pudding -Evaluated by [facility] 03/05/18, for possible PEG tube placement. PER GI, pt not wanting PEG at this time. GI discussed this with Son Aries. -Psychiatry, Dr Milligan evaluated pt 03/06/18, deemed pt not competent to give informed consent regarding her medical treatment. Pt started on Remeron 15 HS for depression and in aid in increase PO. #Urinary Retention -Urology on board -Continue to monitor urine output FEN No IV fluids Monitor electrolytes Renal, sodium controlled, diabetic diet. Prophylaxis -SCDs, TEDs b/l lower extremities. No anticoagulation in light of [facility] bleed on previous admission. Disposition- Med-Surg Visit type - Emergency Visit Emergency Visit: Yes ED Registration Date: 02/27/18 Care time: The patient presented to the Emergency Department on the above date and was hospitalized for further evaluation of their emergent condition. - New Patient This patient is new to me today: No - Critical Care Critical Care patient: No - Discharge Referral Referred to [facility] Med P.C.: No
[2018-03-10] MEDS: COLLAGENASE CLOSTRIDIUM HIST. 30 GRAMS TUBE TP SCH (17:09)
[2018-03-10] MEDS ORDERED: SODIUM CHLORIDE 250 ML IV PRN (19:13)
[2018-03-10] MEDS: MIRTAZAPINE 15 MG TABLET (FP) PO SCH (21:47)
[2018-03-11] MEDS: INSULIN SLIDING SCALE (NOVOLOG) 1 VIAL SQ SCH ×4 (06:09→22:13)
[2018-03-11] MEDS ORDERED: VANCOMYCIN 250 MG/5 ML ORAL SOLUTION PO SCH (10:00)
[2018-03-11] MEDS: LACTOBACILLUS ACIDOPHILUS 1 TABLET PO SCH (10:30)
[2018-03-11] MEDS: METOPROLOL TARTRATE 25 MG TABLET (FP) PO SCH ×2 (10:30→22:12)
[2018-03-11] MEDS: amLODIPine BESYLATE 10 MG TABLET (FP) PO SCH (10:31)
[2018-03-11] MEDS: VANCOMYCIN 250 MG/5 ML ORAL SOLUTION PO SCH (10:33)
[2018-03-11] MEDS: MINERAL OIL/PET HY-PHL TOPICAL OINTMENT 454 GM JAR TP SCH (10:35)
[2018-03-11] MEDS: COLLAGENASE CLOSTRIDIUM HIST. 30 GRAMS TUBE TP SCH (10:35)
--- NOTE | 2018-03-11 12:39 | PN ---
Teaching Attending Note Name of Resident: Fernando Ricci ATTENDING PHYSICIAN STATEMENT I saw and evaluated the patient. I reviewed the resident's note and discussed the case with the resident. I agree with the resident's findings and plan as documented. SUBJECTIVE:asymptomatic. denies CP, SOB, fever, chills, N/V/C/D OBJECTIVE: Last Vital Signs Temp Pulse Resp BP Pulse Ox 98.8 F 84 18 94/58 L 94 L 03/11/18 07:10 03/11/18 10:40 03/11/18 10:40 03/11/18 10:40 03/11/18 09:00 General NAD, frail CV S1 S2 RRR no murmur/rub/gallop Lungs CTA B/L no wheezing ASSESSMENT AND PLAN: 77 yo F with reportedly prolonged stay at [facility] for PNA, cdiff (requiring fecal transplant), 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 Sacral wound-repeat CT showing no signs of OM. cont with local wound care, frequent turning. not a candidate for wound vac. 2. Severe malnutrition- as evident by body habitus and low BMI. family wants peg. awaiting ethics to determine next step as pt has been refusing everything. no IV access to give nutritional support. cont encouragement to eat and requested family to bring in favorite foods to encourage po. on remeron will hope will increase po. not safe to place central line as patient has been repetively attempting to pull out her peripheral lines and permacath. believe the risks of placing a central line and pulling it out poses risks during placement unless patient can be completely sedated for the procedure. 3. depression-started on remeron. continues to refuse treatment and becomes agitated with staff. has attempted to pull out shiley and as per mail handlers supervisor does try to pull it out almost every session and also "swings" at her when trying to connect her. psych determine she lacks capacity 4. Hypoglycemia- having periods of hypoglycemia due to poor oral intake. refuses IV access. glucagon prn for hypoglycemia. cont BGM Q6H, D50 prn 5. PNA- likely aspiration. no peripheral access. completed abx course. monitor off abx 6. Cdiff- no more diarrhea. completed vanco taper yesterday. contact precautions 7. Anemia- Hgb stable. no indication for transfusion. epogen 8. ESRD on HD- cont per normal schedule via permacath. vein maping completed. 9. DVT ppx- SCD. would hold pharmacolgic anticoagulation with recent large GI bleed 10. pt lacks decision making capacity. awaiting ethics board to determine if its ethical to proceed with PEG placement as patient has continued to refuse and becomes combative with treatment. if decides not to go forward with PEG placement pt would also stop HD and make patient comfortable on hospice.
[2018-03-11] MEDS: AMINO ACIDS/PROTEIN HYDROLYS 30 ML LIQUID.PKT PO SCH ×2 (14:53→22:18)
--- NOTE | 2018-03-11 16:57 | PN ---
Progress Note, Physician History of Present Illness: Pt seen and examined at bedside. She tolerated HD today. - Current Medication List Current Medications: Active Medications Acetaminophen (Tylenol -) 650 mg PO Q6H PRN PRN Reason: FEVER Last Admin: 02/27/18 11:35 Dose: 650 mg Amino Acids (Prosource No Carb Liquid Pkt) 30 ml PO TID [facility] Last Admin: 03/11/18 14:53 Dose: Not Given Amlodipine Besylate (Norvasc -) 10 mg PO DAILY [facility] Last Admin: 03/11/18 10:31 Dose: Not Given Collagenase (Santyl -) 1 applic TP DAILY [facility]; Protocol Last Admin: 03/11/18 10:35 Dose: 1 applic Emollient Ointment (Aquaphor -) 1 applic TP DAILY [facility] Last Admin: 03/11/18 10:35 Dose: 1 applic Glucagon (Glucagon -) 1 mg SQ [id number] PRN PRN Reason: HYPOGLYCEMIA Sodium Chloride (Normal Saline -) 250 mls @ 3,000 mls/hr IV PRN PRN PRN Reason: Hypotension during Dialysis Stop: 03/11/18 19:13 Insulin Aspart (Novolog Vial Sliding Scale -) 1 vial SQ ACHS [facility]; Protocol Last Admin: 03/11/18 16:48 Dose: Not Given Lactobacillus Acidophilus (Bacid -) 1 tab PO DAILY [facility] Last Admin: 03/11/18 10:30 Dose: 1 tab Metoprolol Tartrate (Lopressor -) 25 mg PO BID [facility] Last Admin: 03/11/18 10:30 Dose: Not Given Mirtazapine (Remeron -) 15 mg PO HS [facility] Last Admin: 03/10/18 21:47 Dose: 15 mg Morphine Sulfate (Morphine 10 Mg/5 Ml Liquid) 5 mg PO Q6H PRN PRN Reason: PAIN LEVEL 7 - 10 Vancomycin HCl (Vancomycin Oral Solution) 125 mg PO Q2D [facility] Last Admin: 03/11/18 10:33 Dose: 125 mg - Objective Vital Signs: Vital Signs Temperature 98.2 F 03/11/18 13:47 Pulse Rate 84 03/11/18 10:40 Respiratory Rate 18 03/11/18 10:40 Blood Pressure 94/58 L 03/11/18 10:40 O2 Sat by Pulse Oximetry (%) 94 L 03/11/18 09:00 Constitutional: Yes: Calm Eyes: Yes: Conjunctiva Clear HENT: Yes: Atraumatic Neck: Yes: Supple Cardiovascular: Yes: S1, S2 Respiratory: Yes: CTA Bilaterally Gastrointestinal: Yes: Soft Genitourinary: Yes: Incontinence Musculoskeletal: Yes: Muscle Weakness Edema: No Neurological: Yes: Oriented Labs: CBC, BMP 03/08/18 07:15 03/08/18 07:15 Problem List - Problems (1) ESRD (end stage renal disease) on dialysis Code(s): N18.6 - END STAGE RENAL DISEASE; Z99.2 - DEPENDENCE ON RENAL DIALYSIS (2) Sacral decubitus ulcer Code(s): L89.159 - PRESSURE ULCER OF SACRAL REGION, UNSPECIFIED STAGE Qualifiers: Pressure injury stage: stage 4 Qualified Code(s): L89.154 - Pressure ulcer of sacral region, stage 4 Assessment/Plan Current Medications Generic Name Dose Route Start Last Admin Trade Name Freq PRN Reason Stop Dose Admin Acetaminophen 650 mg 02/20/18 22:37 02/27/18 11:35 Tylenol - PO 650 mg Q6H PRN Administration FEVER Amino Acids 30 ml 02/27/18 22:00 03/11/18 14:53 Prosource No Carb Liquid Pkt PO Not Given TID [facility] Amlodipine Besylate 10 mg 02/20/18 13:03 03/11/18 10:31 Norvasc - PO Not Given DAILY [facility] Collagenase 1 applic 02/20/18 10:00 03/11/18 10:35 Santyl - TP 1 applic DAILY [facility] Administration Protocol Emollient Ointment 1 applic 03/02/18 18:00 03/11/18 10:35 Aquaphor - TP 1 applic DAILY [facility] Administration Glucagon 1 mg 03/05/18 13:52 Glucagon - SQ [id number] PRN HYPOGLYCEMIA Sodium Chloride 250 mls @ 3,000 mls/hr 03/10/18 19:13 Normal Saline - IV 03/11/18 19:13 PRN PRN Hypotension during Dialysis Insulin Aspart 1 vial 02/24/18 09:43 03/11/18 16:48 Novolog Vial Sliding Scale - SQ Not Given ACHS [facility] Protocol Lactobacillus Acidophilus 1 tab 02/20/18 10:00 03/11/18 10:30 Bacid - PO 1 tab DAILY [facility] Administration Metoprolol Tartrate 25 mg 02/20/18 10:00 03/11/18 10:30 Lopressor - PO Not Given BID [facility] Mirtazapine 15 mg 03/06/18 22:00 03/10/18 21:47 Remeron - PO 15 mg HS [facility] Administration Morphine Sulfate 5 mg 03/11/18 11:13 Morphine 10 Mg/5 Ml Liquid PO Q6H PRN PAIN LEVEL 7 - 10 Vancomycin HCl 125 mg 03/11/18 10:00 03/11/18 10:33 Vancomycin Oral Solution PO 125 mg Q2D [facility] Administration Impression 1. ESRD 2. failed kidney transplant 3. hx DM 4. Hx HTN 5. sacral ulcer 6. post op infection 7. c.diff 8. a-fib 9. failure to thrive 10.malnutrition 11. anemia 12. GI bleed 13. PNA Plan - HD today - wound care - monitor vitals - vascular follow up - epogen for anemia - will follow Dr Winters
[2018-03-11] MEDS: morphine SULFATE 10 MG/5 ML UNIT-DOSE CUP PO PRN (17:29)
--- NOTE | 2018-03-11 19:47 | PN ---
Physical Exam: SUBJECTIVE: Patient seen and examined at bedside this am. Undergoing HD. Eating well this am. Hypoglycemic late last night. Ethics committee meeting tentatively this Sunday03/13/18 OBJECTIVE: Vital Signs Period Temp Pulse Resp BP Sys/Franco Pulse Ox Last 24 Hr 97.3 F-98.8 F 60-104 18-20 90-152/49-74 94-94 GENERAL: Frail, Facial Grimacing, Agitated cachechtic HEAD: NC/AT EYES: EOMI LUNGS: Poor inspiratory effort HEART: RRR No MRG S1S2 ABDOMEN:Soft NDNT EXTREMITIES: Bandages on both heels. Extremities frail, muscle wasting/atrophy SKIN: Unchanged since previous exam. Sacral Ulcer. Laboratory Results - last 24 hr 03/10/18 03/11/18 03/11/18 21:44 05:00 11:31 POC Glucometer 88 62 124 03/11/18 16:16 POC Glucometer 77 Active Medications Generic Name Dose Route Start Last Admin Trade Name Freq PRN Reason Stop Dose Admin Acetaminophen 650 mg 02/20/18 22:37 02/27/18 11:35 Tylenol - PO 650 mg Q6H PRN Administration FEVER Amino Acids 30 ml 02/27/18 22:00 03/11/18 14:53 Prosource No Carb Liquid Pkt PO Not Given TID HARPAL Amlodipine Besylate 10 mg 02/20/18 13:03 03/11/18 10:31 Norvasc - PO Not Given DAILY HARPAL Collagenase 1 applic 02/20/18 10:00 03/11/18 10:35 Santyl - TP 1 applic DAILY HARPAL Administration Protocol Emollient Ointment 1 applic 03/02/18 18:00 03/11/18 10:35 Aquaphor - TP 1 applic DAILY HARPAL Administration Glucagon 1 mg 03/05/18 13:52 Glucagon - SQ [id number] PRN HYPOGLYCEMIA Sodium Chloride 250 mls @ 3,000 mls/hr 03/10/18 19:13 Normal Saline - IV 03/11/18 19:13 PRN PRN Hypotension during Dialysis Insulin Aspart 1 vial 02/24/18 09:43 03/11/18 16:48 Novolog Vial Sliding Scale - SQ Not Given ACHS HARPAL Protocol Lactobacillus Acidophilus 1 tab 02/20/18 10:00 03/11/18 10:30 Bacid - PO 1 tab DAILY HARPAL Administration Metoprolol Tartrate 25 mg 02/20/18 10:00 03/11/18 10:30 Lopressor - PO Not Given BID HARPAL Mirtazapine 15 mg 03/06/18 22:00 03/10/18 21:47 Remeron - PO 15 mg HS HARPAL Administration Morphine Sulfate 5 mg 03/11/18 11:13 03/11/18 17:29 Morphine 10 Mg/5 Ml Liquid PO 5 mg Q6H PRN Administration PAIN LEVEL 7 - 10 Vancomycin HCl 125 mg 03/11/18 10:00 03/11/18 10:33 Vancomycin Oral Solution PO 125 mg Q2D HARPAL Administration ASSESSMENT/PLAN: Patient is a 77 year old female with history of ESRD on HD Sun, Sun, Sun, s/p kidney transplant 10/08, diabetes mellitus, hypertension, Afib not on anticoagulation due to GI bleed on prior admission, recently discharged from [facility], presents for complaint of sacral ulcer, requiring wound care. Stage IV sacral decubitus ulcer -Surgery--> Santyl to sacrum daily, Alleven over sacrum, Alleven over b/l heels , Offload pressure areas with frequent repositioning, - MRI of Lumbar spine and Pelvis ---> "Osteomyelitis cannot be excluded 02/20/18 " -3 phase bone scan to r/o osteo NOT DONE. Per ID, low clinical suspicion -02/25/18 ID and Hospitalist discussed treatment with family this afternoon. Bone biopsy not recommended at this time. Low clinical suspicion for osteomyelitis. Radiology re-evaluated imaging with ID and concur osteo very unlikely in light of recent imaging studies. 02/26/18 CT Abd/Pelvis--> No CT Evidence of osteomyelitis. Meeting 02/27/18, with medical referral coordinator, social workers, risk assessment for plan of action and next step moving forward. -Vein Mapping completed -AWAITING ETHICS COMMITTEE INPUT TO PEG PLACEMENT. Tentative for this Sunday03/13/18 # Right Base infiltrate -Chest XRAY 03/06/18- Right pulmonary and pleural changes have DIMINISHED. STILL SOME CONGESTIVE CHANGES WITH BIBASILAR INFILTRATES. -Pt afebrile, no WBC however pt may not be able to mount white count. -03/01/18 vancomycin/fortaz administered with HD in light of no I.V access -Legionella urine antigen negative, Strep pneumo urine antigen negative Vanco/Fortaz D/C'ed. ESRD on hemodialysis -Nephrology-Dr Winters on board. HD today 03/11/18-->REMOVED 1 KG - Permacath drawn blood cultures--NO GROWTH - Wound culture--Proteus species, MRSA, VR EC F -Blood cultures 02/25 Negative #Hypoglycemia -Glucagon Q15 min SQ PRN hypoglycemia C. Difficile infection -Vanco 125 po every 48 hours -Contact precautions Atrial fibrillation -Lopressor 25 po bid -No AC at this time due to h/o G.I bleed on last admission. Hypertension -Continue Norvasc 10 mg PO daily Malnutrition -Dr Alvarado to be contacted regarding Ethics issue if PEG placement as pt not competent to make decision and son wants to proceed with PEG placement. -Prosource 3 times per day -Dysphagia Whole, Crushed with applesauce, [place] Thick liquids, Magic Cup, Ensure Pudding -Evaluated by [facility] 03/05/18, for possible PEG tube placement. PER GI, pt not wanting PEG at this time. GI discussed this with Son Aries. -Psychiatry, Dr Milligan evaluated pt 03/06/18, deemed pt not competent to give informed consent regarding her medical treatment. Pt started on Remeron 15 HS for depression and in aid in increase PO. #Urinary Retention -Urology on board -Continue to monitor urine output FEN No IV fluids Monitor electrolytes Renal, sodium controlled, diabetic diet. Prophylaxis -SCDs, TEDs b/l lower extremities. No anticoagulation in light of G.I bleed on previous admission. Disposition- Med-Surg Visit type - Emergency Visit Emergency Visit: Yes ED Registration Date: 02/27/18 Care time: The patient presented to the Emergency Department on the above date and was hospitalized for further evaluation of their emergent condition. - New Patient This patient is new to me today: No - Critical Care Critical Care patient: No - Discharge Referral Referred to [facility] Med P.C.: No
[2018-03-11] MEDS ORDERED: PT OWN MED DRAWER 7, Y5N ONE (21:39)
[2018-03-11] MEDS: MIRTAZAPINE 15 MG TABLET (FP) PO SCH (22:13)
[2018-03-12] MEDS: INSULIN SLIDING SCALE (NOVOLOG) 1 VIAL SQ SCH ×4 (06:22→22:18)
--- NOTE | 2018-03-12 07:50 | PN ---
Progress Note (short form) - Note Progress Note: UE vein mapping completed 03/07/18. Awaiting official results before establishing operative plan. Called Radiology Dept. --> Dr. Campos not in. Left message to have him call me so we can move forward Vascular Surgery Team to cont following.
[2018-03-12] MEDS: METOPROLOL TARTRATE 25 MG TABLET (FP) PO SCH ×2 (09:48→22:07)
[2018-03-12] MEDS: amLODIPine BESYLATE 10 MG TABLET (FP) PO SCH (09:48)
[2018-03-12] MEDS: LACTOBACILLUS ACIDOPHILUS 1 TABLET PO SCH (09:48)
[2018-03-12] MEDS: MINERAL OIL/PET HY-PHL TOPICAL OINTMENT 454 GM JAR TP SCH (09:49)
[2018-03-12] MEDS: COLLAGENASE CLOSTRIDIUM HIST. 30 GRAMS TUBE TP SCH (09:50)
--- NOTE | 2018-03-12 11:39 | PN ---
Physical Exam: SUBJECTIVE: Patient seen and examined at bedside. No acute events overnight. Denies any pain. OBJECTIVE: Vital Signs Period Temp Pulse Resp BP Sys/Franco Pulse Ox Last 24 Hr 97.3 F-98.2 F 73-78 17-18 138-145/72-84 95 GENERAL: Frail, Facial Grimacing, Agitated cachechtic HEAD: NC/AT EYES: EOMI LUNGS: Poor inspiratory effort HEART: RRR No MRG S1S2 ABDOMEN: Soft NDNT EXTREMITIES: Bandages remain on both heels. Thin, emaciated, muscle atrophy SKIN: Sacral Ulcer Laboratory Results - last 24 hr 03/11/18 03/11/18 03/11/18 11:31 16:16 22:10 POC Glucometer 124 77 86 03/12/18 06:21 POC Glucometer 61 Active Medications Generic Name Dose Route Start Last Admin Trade Name Freq PRN Reason Stop Dose Admin Acetaminophen 650 mg 02/20/18 22:37 02/27/18 11:35 Tylenol - PO 650 mg Q6H PRN Administration FEVER Amino Acids 30 ml 02/27/18 22:00 03/11/18 22:18 Prosource No Carb Liquid Pkt PO 30 ml TID HARPAL Administration Amlodipine Besylate 10 mg 02/20/18 13:03 03/12/18 09:48 Norvasc - PO 10 mg DAILY HARPAL Administration Collagenase 1 applic 02/20/18 10:00 03/12/18 09:50 Santyl - TP 1 applic DAILY HARPAL Administration Protocol Emollient Ointment 1 applic 03/02/18 18:00 03/12/18 09:49 Aquaphor - TP 1 applic DAILY HARPAL Administration Glucagon 1 mg 03/05/18 13:52 Glucagon - SQ [id number] PRN HYPOGLYCEMIA Sodium Chloride 250 mls @ 3,000 mls/hr 03/10/18 19:13 Normal Saline - IV 03/11/18 19:13 PRN PRN Hypotension during Dialysis Insulin Aspart 1 vial 02/24/18 09:43 03/12/18 06:22 Novolog Vial Sliding Scale - SQ Not Given ACHS HARPAL Protocol Lactobacillus Acidophilus 1 tab 02/20/18 10:00 03/12/18 09:48 Bacid - PO 1 tab DAILY HARPAL Administration Metoprolol Tartrate 25 mg 02/20/18 10:00 03/12/18 09:48 Lopressor - PO 25 mg BID HARPAL Administration Mirtazapine 15 mg 03/06/18 22:00 03/11/18 22:13 Remeron - PO 15 mg HS HARPAL Administration Morphine Sulfate 5 mg 03/11/18 11:13 03/11/18 17:29 Morphine 10 Mg/5 Ml Liquid PO 5 mg Q6H PRN Administration PAIN LEVEL 7 - 10 Vancomycin HCl 125 mg 03/11/18 10:00 03/11/18 10:33 Vancomycin Oral Solution PO 125 mg Q2D HARPAL Administration ASSESSMENT/PLAN: Patient is a 77 year old female with history of ESRD on HD Sun, Sun, Sun, s/p kidney transplant 10/08, diabetes mellitus, hypertension, Afib not on anticoagulation due to GI bleed on prior admission, recently discharged from [facility], presents for complaint of sacral ulcer, requiring wound care. Stage IV sacral decubitus ulcer -Surgery--> Santyl to sacrum daily, Alleven over sacrum, Alleven over b/l heels , Offload pressure areas with frequent repositioning, - MRI of Lumbar spine and Pelvis ---> "Osteomyelitis cannot be excluded 02/20/18 " -3 phase bone scan to r/o osteo NOT DONE. Per ID, low clinical suspicion -02/25/18 ID and Hospitalist discussed treatment with family this afternoon. Bone biopsy not recommended at this time. Low clinical suspicion for osteomyelitis. Radiology re-evaluated imaging with ID and concur osteo very unlikely in light of recent imaging studies. 02/26/18 CT Abd/Pelvis--> No CT Evidence of osteomyelitis. Meeting 02/27/18, with medical staff services coordinator, social workers, risk assessment for plan of action and next step moving forward. -Vein Mapping completed -AWAITING ETHICS COMMITTEE INPUT TO PEG PLACEMENT. Tentative for this Sunday03/13/18 # Right Base infiltrate -Chest XRAY 03/06/18- Right pulmonary and pleural changes have DIMINISHED. STILL SOME CONGESTIVE CHANGES WITH BIBASILAR INFILTRATES. -Pt afebrile, no WBC however pt may not be able to mount white count. -03/01/18 vancomycin/fortaz administered with HD in light of no I.V access -Legionella urine antigen negative, Strep pneumo urine antigen negative Vanco/Fortaz D/C'ed. ESRD on hemodialysis -Nephrology-Dr Winters on board. HD today 03/11/18-->REMOVED 1 KG - Permacath drawn blood cultures--NO GROWTH - Wound culture--Proteus species, MRSA, VR EC F -Blood cultures 02/25 Negative #Hypoglycemia -Glucagon Q15 min SQ PRN hypoglycemia C. Difficile infection -Vanco 125 po every 48 hours -Contact precautions Atrial fibrillation -Lopressor 25 po bid -No AC at this time due to h/o G.I bleed on last admission. Hypertension -Continue Norvasc 10 mg PO daily Malnutrition -Dr Alvarado to be contacted regarding Ethics issue if PEG placement as pt not competent to make decision and son wants to proceed with PEG placement. -Ethics meeting tomorrow 03/13/18 -Prosource 3 times per day -Dysphagia Whole, Crushed with applesauce, [place] Thick liquids, Magic Cup, Ensure Pudding -Evaluated by [facility] 03/05/18, for possible PEG tube placement. PER GI, pt not wanting PEG at this time. GI discussed this with Marvel Chris. -Psychiatry, Dr Milligan evaluated pt 03/06/18, deemed pt not competent to give informed consent regarding her medical treatment. Pt started on Remeron 15 HS for depression and in aid in increase PO. #Urinary Retention -Urology on board -Continue to monitor urine output FEN No IV fluids Monitor electrolytes Renal, sodium controlled, diabetic diet. Prophylaxis -SCDs, TEDs b/l lower extremities. No anticoagulation in light of G.I bleed on previous admission. Disposition- Med-Surg Visit type - Emergency Visit Emergency Visit: Yes ED Registration Date: 02/27/18 Care time: The patient presented to the Emergency Department on the above date and was hospitalized for further evaluation of their emergent condition. - New Patient This patient is new to me today: No - Critical Care Critical Care patient: No - Discharge Referral Referred to [facility] Med P.C.: No
[2018-03-12] MEDS: morphine SULFATE 10 MG/5 ML UNIT-DOSE CUP PO PRN (13:45)
--- NOTE | 2018-03-12 14:03 | PN ---
Progress Note, Physician History of Present Illness: Pt seen and examined at bedside. She appears comfortable. - Current Medication List Current Medications: Active Medications Acetaminophen (Tylenol -) 650 mg PO Q6H PRN PRN Reason: FEVER Last Admin: 02/27/18 11:35 Dose: 650 mg Amino Acids (Prosource No Carb Liquid Pkt) 30 ml PO TID [facility] Last Admin: 03/11/18 22:18 Dose: 30 ml Amlodipine Besylate (Norvasc -) 10 mg PO DAILY [facility] Last Admin: 03/12/18 09:48 Dose: 10 mg Collagenase (Santyl -) 1 applic TP DAILY [facility]; Protocol Last Admin: 03/12/18 09:50 Dose: 1 applic Emollient Ointment (Aquaphor -) 1 applic TP DAILY [facility] Last Admin: 03/12/18 09:49 Dose: 1 applic Glucagon (Glucagon -) 1 mg SQ [id number] PRN PRN Reason: HYPOGLYCEMIA Insulin Aspart (Novolog Vial Sliding Scale -) 1 vial SQ ACHS [facility]; Protocol Last Admin: 03/12/18 11:36 Dose: Not Given Lactobacillus Acidophilus (Bacid -) 1 tab PO DAILY [facility] Last Admin: 03/12/18 09:48 Dose: 1 tab Metoprolol Tartrate (Lopressor -) 25 mg PO BID [facility] Last Admin: 03/12/18 09:48 Dose: 25 mg Mirtazapine (Remeron -) 15 mg PO HS [facility] Last Admin: 03/11/18 22:13 Dose: 15 mg Morphine Sulfate (Morphine 10 Mg/5 Ml Liquid) 5 mg PO Q6H PRN PRN Reason: PAIN LEVEL 7 - 10 Last Admin: 03/12/18 13:45 Dose: 5 mg Vancomycin HCl (Vancomycin Oral Solution) 125 mg PO Q2D [facility] Last Admin: 03/11/18 10:33 Dose: 125 mg - Objective Vital Signs: Vital Signs Temperature 98.1 F 03/12/18 08:43 Pulse Rate 74 03/12/18 08:43 Respiratory Rate 17 03/12/18 08:43 Blood Pressure 142/84 03/12/18 08:43 O2 Sat by Pulse Oximetry (%) 96 03/12/18 09:00 Constitutional: Yes: Calm Eyes: Yes: Conjunctiva Clear HENT: Yes: Atraumatic Cardiovascular: Yes: S1, S2 Respiratory: Yes: CTA Bilaterally Gastrointestinal: Yes: Normal Bowel Sounds, Soft Musculoskeletal: Yes: Muscle Weakness Neurological: Yes: Oriented Labs: CBC, BMP 03/08/18 07:15 03/08/18 07:15 Problem List - Problems (1) ESRD (end stage renal disease) on dialysis Code(s): N18.6 - END STAGE RENAL DISEASE; Z99.2 - DEPENDENCE ON RENAL DIALYSIS (2) Sacral decubitus ulcer Code(s): L89.159 - PRESSURE ULCER OF SACRAL REGION, UNSPECIFIED STAGE Qualifiers: Pressure injury stage: stage 4 Qualified Code(s): L89.154 - Pressure ulcer of sacral region, stage 4 Assessment/Plan Current Medications Generic Name Dose Route Start Last Admin Trade Name Freq PRN Reason Stop Dose Admin Acetaminophen 650 mg 02/20/18 22:37 02/27/18 11:35 Tylenol - PO 650 mg Q6H PRN Administration FEVER Amino Acids 30 ml 02/27/18 22:00 03/11/18 22:18 Prosource No Carb Liquid Pkt PO 30 ml TID HARPAL Administration Amlodipine Besylate 10 mg 02/20/18 13:03 03/12/18 09:48 Norvasc - PO 10 mg DAILY HARPAL Administration Collagenase 1 applic 02/20/18 10:00 03/12/18 09:50 Santyl - TP 1 applic DAILY HARPAL Administration Protocol Emollient Ointment 1 applic 03/02/18 18:00 03/12/18 09:49 Aquaphor - TP 1 applic DAILY HARPAL Administration Glucagon 1 mg 03/05/18 13:52 Glucagon - SQ [id number] PRN HYPOGLYCEMIA Insulin Aspart 1 vial 02/24/18 09:43 03/12/18 11:36 Novolog Vial Sliding Scale - SQ Not Given ACHS HARPAL Protocol Lactobacillus Acidophilus 1 tab 02/20/18 10:00 03/12/18 09:48 Bacid - PO 1 tab DAILY HARPAL Administration Metoprolol Tartrate 25 mg 02/20/18 10:00 03/12/18 09:48 Lopressor - PO 25 mg BID HARPAL Administration Mirtazapine 15 mg 03/06/18 22:00 03/11/18 22:13 Remeron - PO 15 mg HS HARPAL Administration Morphine Sulfate 5 mg 03/11/18 11:13 03/12/18 13:45 Morphine 10 Mg/5 Ml Liquid PO 5 mg Q6H PRN Administration PAIN LEVEL 7 - 10 Vancomycin HCl 125 mg 03/11/18 10:00 03/11/18 10:33 Vancomycin Oral Solution PO 125 mg Q2D HARPAL Administration Impression 1. ESRD 2. failed kidney transplant 3. hx DM 4. Hx HTN 5. sacral ulcer 6. post op infection 7. c.diff 8. a-fib 9. failure to thrive 10.malnutrition 11. anemia 12. GI bleed 13. PNA Plan - HD in am - pending possible peg placement - one to one feeds - vascular follow up - epogen for anemia - will follow Dr Winters
[2018-03-12] MEDS ORDERED: SODIUM CHLORIDE 250 ML IV PRN (14:04)
[2018-03-12] MEDS: AMINO ACIDS/PROTEIN HYDROLYS 30 ML LIQUID.PKT PO SCH ×3 (15:29→22:19)
--- NOTE | 2018-03-12 16:33 | PN ---
Progress Note (short form) - Note Progress Note: Had D/W Dolly Escalona today. States that Ms. De La Vega in agreement with PEG are the patient's sons. They had family discussion today. Plan for possible PEG tomorrow. Left message on number provided for Aries, her son to obtain consent for PEG. Will need cosent for anesthesia as well. AM labs NPO after midnight Nutrition follow-up regarding steps to avoid potential refeeding syndrome Problem List - Problems (1) Failure to thrive in adult Code(s): R62.7 - ADULT FAILURE TO THRIVE
--- NOTE | 2018-03-12 17:27 | PN ---
Teaching Attending Note Name of Resident: Fernando Ricci ATTENDING PHYSICIAN STATEMENT I saw and evaluated the patient. I reviewed the resident's note and discussed the case with the resident. I agree with the resident's findings and plan as documented with exceptions below. SUBJECTIVE: patient seen and examined. No complaints, does not feel like eating, denies any pain currently. OBJECTIVE: Vital Signs Period Temp Pulse Resp BP Sys/Franco Pulse Ox Last 24 Hr 97.6 F-98.2 F 72-78 17-18 138-143/70-84 95-96 Intake & Output 03/09/18 03/10/18 03/11/18 03/12/18 23:59 23:59 23:59 23:59 Intake Total 50 340 0 240 Balance 50 340 0 240 general: lying in bed, cachectic in no acute distress Chest: decreased effort, no rales or wheezing Abdomen:soft, NT, positive bowel sounds Extremities: no edema Home Medications Medication Instructions Recorded Lactobacillus Acidophilus [Bacid -] 1 tab PO DAILY #30 tab 02/11/18 Metoprolol Tartrate [Lopressor -] 25 mg PO BID #60 tablet 02/11/18 Vancomycin Oral Solution 125 mg PO Q6HPO #100 ml 02/11/18 Amlodipine Besylate [Norvasc -] 5 mg PO DAILY #30 tablet 02/16/18 Miscellaneous Medical Supply 1 each SQ ASDIR #1 kit 02/16/18 [Glucometer Device] Miscellaneous Medical Supply 1 each SQ ASDIR #1 box 02/16/18 [Glucometer Test Strips #50] Miscellaneous Medical Supply 1 each SQ ASDIR #1 box 02/16/18 [Lancets] Miscellaneous Medical Supply 1 each ASDIR #1 misc 02/16/18 [Outpatient Order] Amino Acids/Protein Hydrolys 30 ml PO BID #10 liquid.pkt 02/22/18 [Prosource No Carb Liquid Pkt] Amino Acids/Protein Hydrolys 30 ml PO BID #30 liquid.pkt 02/22/18 [Prosource No Carb Liquid Pkt] Amlodipine Besylate [Norvasc -] 10 mg PO DAILY #30 tablet 02/22/18 Collagenase Clostridium Hist. 1 bottle TP DAILY #5 oint...g. 02/22/18 [Santyl] Gauze Bandage [Gauze] 1 box TP DAILY #5 bandage 02/22/18 Gauze Bandage [Gauze] 1 each TP DAILY #30 bandage 02/22/18 Nut.tx.imp.renal Fxn,Lac-Reduc 237 ml PO DAILY #30 liquid 02/22/18 [Nepro Carb Steady] Nut.tx.imp.renal Fxn,Lac-Reduc 237 ml PO DAILY #30 liquid 02/22/18 [Nepro Carb Steady] Active Medications Acetaminophen (Tylenol -) 650 mg PO Q6H PRN PRN Reason: FEVER Last Admin: 02/27/18 11:35 Dose: 650 mg Amino Acids (Prosource No Carb Liquid Pkt) 30 ml PO TID [facility] Last Admin: 03/12/18 15:29 Dose: 30 ml Amlodipine Besylate (Norvasc -) 10 mg PO DAILY [facility] Last Admin: 03/12/18 09:48 Dose: 10 mg Collagenase (Santyl -) 1 applic TP DAILY [facility]; Protocol Last Admin: 03/12/18 09:50 Dose: 1 applic Emollient Ointment (Aquaphor -) 1 applic TP DAILY [facility] Last Admin: 03/12/18 09:49 Dose: 1 applic Epoetin Abe (Procrit -) 10,000 unit IVPUSH ONCE ONE Stop: 03/13/18 14:05 Glucagon (Glucagon -) 1 mg SQ [id number] PRN PRN Reason: HYPOGLYCEMIA Sodium Chloride (Normal Saline -) 250 mls @ 3,000 mls/hr IV PRN PRN PRN Reason: Hypotension during Dialysis Stop: 03/13/18 14:04 Insulin Aspart (Novolog Vial Sliding Scale -) 1 vial SQ ACHS [facility]; Protocol Last Admin: 03/12/18 11:36 Dose: Not Given Lactobacillus Acidophilus (Bacid -) 1 tab PO DAILY [facility] Last Admin: 03/12/18 09:48 Dose: 1 tab Metoprolol Tartrate (Lopressor -) 25 mg PO BID [facility] Last Admin: 03/12/18 09:48 Dose: 25 mg Mirtazapine (Remeron -) 15 mg PO HS [facility] Last Admin: 03/11/18 22:13 Dose: 15 mg Vancomycin HCl (Vancomycin Oral Solution) 125 mg PO Q2D [facility] Last Admin: 03/11/18 10:33 Dose: 125 mg Laboratory Results - last 24 hr 1103/12/18 03/12/18 22:10 06:21 11:33 POC Glucometer 86 61 124 Microbiology 02/25/18 08:55 Blood - Peripheral Venous Blood Culture - Final NO GROWTH AFTER 5 DAYS INCUBATION 02/25/18 08:40 Blood - Peripheral Venous Blood Culture - Final NO GROWTH AFTER 5 DAYS INCUBATION 02/28/18 20:00 Urine For Antigen Detection Legionella Antigen - Final 02/28/18 20:00 Urine For Antigen Detection Streptococcus pneumoniae Antigen (M - Final 02/20/18 00:04 Blood - Almaz Cath Blood Culture - Final NO GROWTH AFTER 5 DAYS INCUBATION 02/19/18 23:45 Ulcer Gram Stain - Final 02/19/18 23:45 Ulcer Wound Culture - Final Proteus Mirabilis Vr Ec Faecalis Mr S Aureus ASSESSMENT AND PLAN: 77 yo F with reportedly prolonged stay at [facility] for PNA, cdiff (requiring fecal transplant), also with failed transplant kidney in 09/2017 s/p removal/off immunosuppressants on HD, GI diverticular bleed presented to the ER after sacral wound -Sacral wound -Severe malnutrition -Depression -Hypoglycemia, from poor oral intake -Recent PNA, likely aspiration, off abx -C difficile diarrhea, s/p vanco taper -Anemia -ESRD on HD via permacath, vein mapping done Plan: Repeat CT with no signs of OM. Local wound care, frequent turning, not candidate for wound vac. Psych input noted. Continue remeron. Extensive discussion held with edgar Aries and Constantin. Ethics committee, Social work, Palliative care Dolly present. Marvel Chris reports patient clearly expressing "I want to live' in her lucid states and would want PEG and aggressive measures respecting patient wishes. Son Constantin in agreement of the same. Palliative care input noted. Discussed with Dr. Ro, plan for PEG tomorrow. Nutrition consult. Continue HD. Epogen per renal. Glucagon and BGM prn till PEG in place and appropriate nutrition started. DVTPPX SCDs, given recent large Diverticular bleed. Dispo plan for home dc with services in 1-2 days after PEG placement if no concerns. Total time spent including patient visit and extensive family discussion about goals of care 35 min.
[2018-03-12] MEDS: MIRTAZAPINE 15 MG TABLET (FP) PO SCH (22:07)
[2018-03-13] MEDS: AMINO ACIDS/PROTEIN HYDROLYS 30 ML LIQUID.PKT PO SCH ×3 (05:25→22:39)
[2018-03-13] MEDS: INSULIN SLIDING SCALE (NOVOLOG) 1 VIAL SQ SCH ×4 (06:11→22:57)
--- NOTE | 2018-03-13 07:57 | PN ---
Progress Note (short form) - Note Progress Note: Nursing unable to reach patient's sons re: consent for PEG. I have left further messages using the contact numbers provided for both her sons Constantin and Aries De La Vega. Will need consent prior to PEG. Endo unit closed and sun for holiday. Problem List - Problems (1) Failure to thrive in adult Code(s): R62.7 - ADULT FAILURE TO THRIVE
[2018-03-13 08:46] LABS: INR 1.08 (0.83-1.09); PROTHROMBIN TIME (PATIENT) 12.7 SEC (9.7-13.0)
[2018-03-13 08:49] LABS: ACTIVATED PTT 33.3 SECONDS (25.2-36.5); BASO % 1.2 % (0-2.0); EOS % 2.5 % (0-4.5); HEMATOCRIT 31.6 % (32.4-45.2); HEMOGLOBIN 9.8 GM/dL (10.7-15.3); LYMPH % 37.2 % (8-40); MCH 31.1 pg (25.7-33.7); MCHC 31.2 g/dl (32.0-36.0); MEAN CELL VOLUME 99.9 fl (80-96); MEAN PLT VOLUME 9.4 fl (7.5-11.1); MONO % 9.8 % (3.8-10.2); NEUT % 49.3 % (42.8-82.8); PLATELET COUNT 226 K/MM3 (134-434); RBC 3.16 M/mm3 (3.60-5.2); RDW 19.4 % (11.6-15.6); WHITE BLOOD COUNT 5.9 K/mm3 (4.0-10.0)
[2018-03-13] MEDS ORDERED: MIDAZOLAM HCL 2 MG/2 ML SINGLE DOSE VIAL ONE (08:55)
[2018-03-13] MEDS ORDERED: ceFAZolin SODIUM 1 GM VIAL ONE (09:01)
[2018-03-13 09:33] LABS: ALBUMIN 1.8 g/dl (3.4-5.0); ALK PHOS 194 U/L (45-117); ANION GAP 6 MMOL/L (8-16); BILIRUBIN,TOTAL 0.6 mg/dL (0.2-1); BLOOD UREA NITROGEN 26 mg/dL (7-18); CHLORIDE 103 mmol/L (98-107); CO2 32 mmol/L (21-32); CREATININE 3.5 mg/dL (0.55-1.3); GLUCOSE,RANDOM 69 mg/dL (74-106); POTASSIUM 4.4 mmol/L (3.5-5.1); SGOT/AST 16 U/L (15-37); SGPT/ALT 8 U/L (13-61); SODIUM 141 mmol/L (136-145)
--- NOTE | 2018-03-13 10:50 | PN ---
Progress Note (short form) - Note Progress Note: Still waiting on official report on RUE vein mapping. Called down to Radiology and spoke with Dr. Kay's admin who assured me he will see and read today. Informed her to tell him that our operative plan is pending his interpretation of the study.
--- NOTE | 2018-03-13 11:18 | PN ---
Progress Note (short form) - Note Progress Note: Awaiting call back from family re: consent for anesthesia. Anesthesia needs to talk with family directly. I had the opportunity to discuss the procedural risks/benefits with Mr. Aries mikegiulia. Also IV access is an issue. Anesthesia has attempted peripheral access multiple times this morning unsuccessfully. Discussed these current rate limiting steps in PEG placement with Dr. Islas. She will also need dialysis today. If unable to correct the above by this afternoon, I advised her dialysis nurse that she should proceed with HD. Would then plan tentatively for PEG placement thursday 03/15 if the above can be corrected. Will need slow introduction to feeding if PEG can be placed endoscopically and would likely need to be monitored in hospital for refeeding syndrome prior to discharge. Problem List - Problems (1) Failure to thrive in adult Code(s): R62.7 - ADULT FAILURE TO THRIVE
--- NOTE | 2018-03-13 11:37 | PN ---
Progress Note (short form) - Note Progress Note: Called by anesthesiologist. She was unable to get IV access on Ms. De La Vega. Will need IV access prior to proceeding with EGD Problem List - Problems (1) Failure to thrive in adult Code(s): R62.7 - ADULT FAILURE TO THRIVE
--- NOTE | 2018-03-13 12:45 | PN ---
Progress Note, Physician History of Present Illness: Pt seen and examined at bedside. PEG tube cancelled because she does not have access. - Current Medication List Current Medications: Active Medications Acetaminophen (Tylenol -) 650 mg PO Q6H PRN PRN Reason: FEVER Last Admin: 02/27/18 11:35 Dose: 650 mg Amino Acids (Prosource No Carb Liquid Pkt) 30 ml PO TID [facility] Last Admin: 03/13/18 05:25 Dose: Not Given Amlodipine Besylate (Norvasc -) 10 mg PO DAILY [facility] Last Admin: 03/12/18 09:48 Dose: 10 mg Collagenase (Santyl -) 1 applic TP DAILY [facility]; Protocol Last Admin: 03/12/18 09:50 Dose: 1 applic Emollient Ointment (Aquaphor -) 1 applic TP DAILY [facility] Last Admin: 03/12/18 09:49 Dose: 1 applic Epoetin Abe (Procrit -) 10,000 unit IVPUSH ONCE ONE Stop: 03/13/18 14:05 Glucagon (Glucagon -) 1 mg SQ [id number] PRN PRN Reason: HYPOGLYCEMIA Sodium Chloride (Normal Saline -) 250 mls @ 3,000 mls/hr IV PRN PRN PRN Reason: Hypotension during Dialysis Stop: 03/13/18 14:04 Insulin Aspart (Novolog Vial Sliding Scale -) 1 vial SQ ACHS [facility]; Protocol Last Admin: 03/13/18 06:11 Dose: Not Given Lactobacillus Acidophilus (Bacid -) 1 tab PO DAILY [facility] Last Admin: 03/12/18 09:48 Dose: 1 tab Metoprolol Tartrate (Lopressor -) 25 mg PO BID [facility] Last Admin: 03/12/18 22:07 Dose: 25 mg Mirtazapine (Remeron -) 15 mg PO HS [facility] Last Admin: 03/12/18 22:07 Dose: 15 mg Vancomycin HCl (Vancomycin Oral Solution) 125 mg PO Q2D [facility] Last Admin: 03/11/18 10:33 Dose: 125 mg - Objective Vital Signs: Vital Signs Temperature 98.3 F 03/13/18 10:00 Pulse Rate 88 03/13/18 10:00 Respiratory Rate 17 03/13/18 10:00 Blood Pressure 126/86 03/13/18 10:00 O2 Sat by Pulse Oximetry (%) 95 03/12/18 21:00 Constitutional: Yes: Calm Eyes: Yes: Conjunctiva Clear HENT: Yes: Atraumatic Neck: Yes: Supple Cardiovascular: Yes: S1, S2 Respiratory: Yes: CTA Bilaterally Gastrointestinal: Yes: Normal Bowel Sounds, Soft Genitourinary: Yes: Incontinence Musculoskeletal: Yes: Muscle Weakness Edema: No Neurological: Yes: Oriented Labs: CBC, BMP 03/13/18 07:40 03/13/18 07:40 INR, PTT INR 1.08 (0.83-1.09) 03/13/18 07:40 Problem List - Problems (1) ESRD (end stage renal disease) on dialysis Code(s): N18.6 - END STAGE RENAL DISEASE; Z99.2 - DEPENDENCE ON RENAL DIALYSIS (2) Sacral decubitus ulcer Code(s): L89.159 - PRESSURE ULCER OF SACRAL REGION, UNSPECIFIED STAGE Qualifiers: Pressure injury stage: stage 4 Qualified Code(s): L89.154 - Pressure ulcer of sacral region, stage 4 Assessment/Plan Current Medications Generic Name Dose Route Start Last Admin Trade Name Berta PRN Reason Stop Dose Admin Acetaminophen 650 mg 02/20/18 22:37 02/27/18 11:35 Tylenol - PO 650 mg Q6H PRN Administration FEVER Amino Acids 30 ml 02/27/18 22:00 03/13/18 05:25 Prosource No Carb Liquid Pkt PO Not Given TID [facility] Amlodipine Besylate 10 mg 02/20/18 13:03 03/12/18 09:48 Norvasc - PO 10 mg DAILY [facility] Administration Collagenase 1 applic 02/20/18 10:00 03/12/18 09:50 Santyl - TP 1 applic DAILY [facility] Administration Protocol Emollient Ointment 1 applic 03/02/18 18:00 03/12/18 09:49 Aquaphor - TP 1 applic DAILY [facility] Administration Epoetin Abe 10,000 unit 03/13/18 14:04 Procrit - IVPUSH 03/13/18 14:05 ONCE ONE Glucagon 1 mg 03/05/18 13:52 Glucagon - SQ [id number] PRN HYPOGLYCEMIA Sodium Chloride 250 mls @ 3,000 mls/hr 03/12/18 14:04 Normal Saline - IV 03/13/18 14:04 PRN PRN Hypotension during Dialysis Insulin Aspart 1 vial 02/24/18 09:43 03/13/18 06:11 Novolog Vial Sliding Scale - SQ Not Given ACHS [facility] Protocol Lactobacillus Acidophilus 1 tab 02/20/18 10:00 03/12/18 09:48 Bacid - PO 1 tab DAILY [facility] Administration Metoprolol Tartrate 25 mg 02/20/18 10:00 03/12/18 22:07 Lopressor - PO 25 mg BID [facility] Administration Mirtazapine 15 mg 03/06/18 22:00 03/12/18 22:07 Remeron - PO 15 mg HS [facility] Administration Vancomycin HCl 125 mg 03/11/18 10:00 03/11/18 10:33 Vancomycin Oral Solution PO 125 mg Q2D [facility] Administration Impression 1. ESRD 2. failed kidney transplant 3. hx DM 4. Hx HTN 5. sacral ulcer 6. post op infection 7. c.diff 8. a-fib 9. failure to thrive 10.malnutrition 11. anemia 12. GI bleed 13. PNA Plan - HD today - peg cancelled as she does not have access - encourage PO intake with one to one feeds - epogen for anemia - will follow Dr Winters
[2018-03-13] MEDS ORDERED: morphine SULFATE 10 MG/5 ML UNIT-DOSE CUP PO PRN (13:05)
[2018-03-13] MEDS: METOPROLOL TARTRATE 25 MG TABLET (FP) PO SCH ×2 (13:18→22:39)
[2018-03-13] MEDS: amLODIPine BESYLATE 10 MG TABLET (FP) PO SCH (13:19)
[2018-03-13] MEDS: LACTOBACILLUS ACIDOPHILUS 1 TABLET PO SCH (13:19)
[2018-03-13] MEDS: MINERAL OIL/PET HY-PHL TOPICAL OINTMENT 454 GM JAR TP SCH (13:20)
[2018-03-13] MEDS: COLLAGENASE CLOSTRIDIUM HIST. 30 GRAMS TUBE TP SCH (13:21)
[2018-03-13] MEDS ORDERED: EPOETIN ALFA 10,000 UNIT/1 ML VIAL IVPUSH ONE (14:04)
[2018-03-13] MEDS: VANCOMYCIN 250 MG/5 ML ORAL SOLUTION PO SCH (16:40)
[2018-03-13] MEDS: morphine SULFATE 10 MG/5 ML UNIT-DOSE CUP PO PRN (16:41)
--- NOTE | 2018-03-13 18:16 | PN ---
Physical Exam: SUBJECTIVE: Patient seen and examined at bedside. For PEG tube earlier. PEG not performed 2/2 unobtainable peripheral I.V access. HD earlier today. OBJECTIVE: Vital Signs Period Temp Pulse Resp BP Sys/Franco Pulse Ox Last 24 Hr 97.5 F-98.4 F 60-97 17-18 89-143/38-92 95-96 GENERAL: Cachechtic. NAD HEAD: NC/AT EYES: EOMI No scleral icterus conjunctiva not injected LUNGS: Poor inspiratory effort HEART: RRR No MRG S1S2 ABDOMEN: Soft NDNT EXTREMITIES: diffuse muscle atrophy all 4 extremities. Laboratory Results - last 24 hr 03/12/18 03/13/18 03/13/18 22:16 05:53 07:40 WBC 5.9 RBC 3.16 L Hgb 9.8 L Hct 31.6 L D MCV 99.9 H MCH 31.1 MCHC 31.2 L RDW 19.4 H Plt Count 226 MPV 9.4 Absolute Neuts (auto) 2.9 Neutrophils % 49.3 D Lymphocytes % 37.2 D Monocytes % 9.8 Eosinophils % 2.5 Basophils % 1.2 Nucleated RBC % 0 PT with INR INR PTT (Actin FS) Sodium Potassium Chloride Carbon Dioxide Anion Gap BUN Creatinine Creat Clearance w eGFR POC Glucometer 99 77 Random Glucose Calcium Total Bilirubin AST ALT Alkaline Phosphatase Total Protein Albumin 03/13/18 03/13/18 03/13/18 07:40 07:40 12:08 WBC RBC Hgb Hct MCV MCH MCHC RDW Plt Count MPV Absolute Neuts (auto) Neutrophils % Lymphocytes % Monocytes % Eosinophils % Basophils % Nucleated RBC % PT with INR 12.70 INR 1.08 PTT (Actin FS) 33.3 Sodium 141 Potassium 4.4 Chloride 103 Carbon Dioxide 32 Anion Gap 6 L BUN 26 H Creatinine 3.5 H Creat Clearance w eGFR 12.63 POC Glucometer 67 Random Glucose 69 L Calcium 9.0 Total Bilirubin 0.6 AST 16 ALT 8 L Alkaline Phosphatase 194 H Total Protein 8.0 Albumin 1.8 L 03/13/18 16:44 WBC RBC Hgb Hct MCV MCH MCHC RDW Plt Count MPV Absolute Neuts (auto) Neutrophils % Lymphocytes % Monocytes % Eosinophils % Basophils % Nucleated RBC % PT with INR INR PTT (Actin FS) Sodium Potassium Chloride Carbon Dioxide Anion Gap BUN Creatinine Creat Clearance w eGFR POC Glucometer 135 Random Glucose Calcium Total Bilirubin AST ALT Alkaline Phosphatase Total Protein Albumin Active Medications Generic Name Dose Route Start Last Admin Trade Name Freq PRN Reason Stop Dose Admin Acetaminophen 650 mg 02/20/18 22:37 02/27/18 11:35 Tylenol - PO 650 mg Q6H PRN Administration FEVER Amino Acids 30 ml 02/27/18 22:00 03/13/18 13:19 Prosource No Carb Liquid Pkt PO 30 ml TID [facility] Administration Amlodipine Besylate 10 mg 02/20/18 13:03 03/13/18 13:19 Norvasc - PO 10 mg DAILY [facility] Administration Collagenase 1 applic 02/20/18 10:00 03/13/18 13:21 Santyl - TP 1 applic DAILY [facility] Administration Protocol Emollient Ointment 1 applic 03/02/18 18:00 03/13/18 13:20 Aquaphor - TP 1 applic DAILY [facility] Administration Epoetin Abe 10,000 unit 03/13/18 14:04 Procrit - IVPUSH 03/13/18 14:05 ONCE ONE Glucagon 1 mg 03/05/18 13:52 Glucagon - SQ [id number] PRN HYPOGLYCEMIA Sodium Chloride 250 mls @ 3,000 mls/hr 03/12/18 14:04 Normal Saline - IV 03/13/18 14:04 PRN PRN Hypotension during Dialysis Insulin Aspart 1 vial 02/24/18 09:43 03/13/18 17:02 Novolog Vial Sliding Scale - SQ Not Given ACHS [facility] Protocol Lactobacillus Acidophilus 1 tab 02/20/18 10:00 03/13/18 13:19 Bacid - PO 1 tab DAILY [facility] Administration Metoprolol Tartrate 25 mg 02/20/18 10:00 03/13/18 13:18 Lopressor - PO 25 mg BID [facility] Administration Mirtazapine 15 mg 03/06/18 22:00 03/12/18 22:07 Remeron - PO 15 mg HS [facility] Administration Morphine Sulfate 5 mg 03/13/18 13:30 03/13/18 16:41 Morphine 10 Mg/5 Ml Liquid PO 5 mg Q6H PRN Administration PAIN LEVEL 1-5 Vancomycin HCl 125 mg 03/11/18 10:00 03/13/18 16:40 Vancomycin Oral Solution PO 125 mg Q2D [facility] Administration ASSESSMENT/PLAN: Patient is a 77 year old female with history of ESRD on HD Wed, Sun, s/p kidney transplant 10/08, diabetes mellitus, hypertension, Afib not on anticoagulation due to GI bleed on prior admission, recently discharged from [facility], presents for complaint of sacral ulcer, requiring wound care. Stage IV sacral decubitus ulcer -Surgery--> Santyl to sacrum daily, Alleven over sacrum, Alleven over b/l heels , Offload pressure areas with frequent repositioning, 02/26/18 CT Abd/Pelvis--> No CT Evidence of osteomyelitis. #ESRD on hemodialysis -Nephrology-Dr Winters on board. HD today 03/13/18--> FAIRLY TOLERATED. 1.00 KG WT REMOVED #Hypoglycemia -Glucagon Q15 min SQ PRN hypoglycemia #C. Difficile infection -Vanco 125 po every 48 hours -Contact precautions #Atrial fibrillation -Lopressor 25 po bid -No AC at this time due to h/o G.I bleed on last admission. #Hypertension -Continue Norvasc 10 mg PO daily #Malnutrition -PEG Tube agreed upon by family and medical team. Went for procedure earlier today, Peripheral I.V acess was not attainable, PEG procedure deferred to Sunday Tentatively -Psychiatry, Dr Milligan evaluated pt 03/06/18, deemed pt not competent to give informed consent regarding her medical treatment. Pt started on Remeron 15 HS for depression and in aid in increase PO. #FEN No IV fluids Monitor electrolytes Renal, sodium controlled, diabetic diet. Prophylaxis No anticoagulation in light of G.I bleed on previous admission. Disposition- Med-Surg Visit type - Emergency Visit Emergency Visit: Yes ED Registration Date: 02/27/18 Care time: The patient presented to the Emergency Department on the above date and was hospitalized for further evaluation of their emergent condition. - New Patient This patient is new to me today: No - Critical Care Critical Care patient: No - Discharge Referral Referred to [facility] Med P.C.: No
--- NOTE | 2018-03-13 18:35 | PN ---
Teaching Attending Note Name of Resident: Fernando Ricci ATTENDING PHYSICIAN STATEMENT I saw and evaluated the patient. I reviewed the resident's note and discussed the case with the resident. I agree with the resident's findings and plan as documented with exceptions below. SUBJECTIVE: Patient seen and examined. Hungry, asking to eat, no complaints. OBJECTIVE: Vital Signs Period Temp Pulse Resp BP Sys/Franco Pulse Ox Last 24 Hr 97.5 F-98.4 F 60-97 17-18 89-143/38-92 95-96 Intake & Output 03/10/18 03/11/18 03/12/18 03/13/18 23:59 23:59 23:59 23:59 Intake Total 340 0 720 100 Balance 340 0 720 100 General: sitting in bed getting HD, cachectic Chest: decreased effort, no rales or wheezing Abdomen:soft, NT, ND Extremities: no edema Active Medications Acetaminophen (Tylenol -) 650 mg PO Q6H PRN PRN Reason: FEVER Last Admin: 02/27/18 11:35 Dose: 650 mg Amino Acids (Prosource No Carb Liquid Pkt) 30 ml PO TID [facility] Last Admin: 03/13/18 13:19 Dose: 30 ml Amlodipine Besylate (Norvasc -) 10 mg PO DAILY [facility] Last Admin: 03/13/18 13:19 Dose: 10 mg Collagenase (Santyl -) 1 applic TP DAILY [facility]; Protocol Last Admin: 03/13/18 13:21 Dose: 1 applic Emollient Ointment (Aquaphor -) 1 applic TP DAILY [facility] Last Admin: 03/13/18 13:20 Dose: 1 applic Epoetin Abe (Procrit -) 10,000 unit IVPUSH ONCE ONE Stop: 03/13/18 14:05 Glucagon (Glucagon -) 1 mg SQ [id number] PRN PRN Reason: HYPOGLYCEMIA Sodium Chloride (Normal Saline -) 250 mls @ 3,000 mls/hr IV PRN PRN PRN Reason: Hypotension during Dialysis Stop: 03/13/18 14:04 Insulin Aspart (Novolog Vial Sliding Scale -) 1 vial SQ ACHS [facility]; Protocol Last Admin: 03/13/18 17:02 Dose: Not Given Lactobacillus Acidophilus (Bacid -) 1 tab PO DAILY [facility] Last Admin: 03/13/18 13:19 Dose: 1 tab Metoprolol Tartrate (Lopressor -) 25 mg PO BID [facility] Last Admin: 03/13/18 13:18 Dose: 25 mg Mirtazapine (Remeron -) 15 mg PO HS [facility] Last Admin: 03/12/18 22:07 Dose: 15 mg Morphine Sulfate (Morphine 10 Mg/5 Ml Liquid) 5 mg PO Q6H PRN PRN Reason: PAIN LEVEL 1-5 Last Admin: 03/13/18 16:41 Dose: 5 mg Vancomycin HCl (Vancomycin Oral Solution) 125 mg PO Q2D [facility] Last Admin: 03/13/18 16:40 Dose: 125 mg Laboratory Results - last 24 hr 03/12/18 03/13/18 03/13/18 22:16 05:53 07:40 WBC 5.9 RBC 3.16 L Hgb 9.8 L Hct 31.6 L D MCV 99.9 H MCH 31.1 MCHC 31.2 L RDW 19.4 H Plt Count 226 MPV 9.4 Absolute Neuts (auto) 2.9 Neutrophils % 49.3 D Lymphocytes % 37.2 D Monocytes % 9.8 Eosinophils % 2.5 Basophils % 1.2 Nucleated RBC % 0 PT with INR INR PTT (Actin FS) Sodium Potassium Chloride Carbon Dioxide Anion Gap BUN Creatinine Creat Clearance w eGFR POC Glucometer 99 77 Random Glucose Calcium Total Bilirubin AST ALT Alkaline Phosphatase Total Protein Albumin 03/13/18 03/13/18 03/13/18 07:40 07:40 12:08 WBC RBC Hgb Hct MCV MCH MCHC RDW Plt Count MPV Absolute Neuts (auto) Neutrophils % Lymphocytes % Monocytes % Eosinophils % Basophils % Nucleated RBC % PT with INR 12.70 INR 1.08 PTT (Actin FS) 33.3 Sodium 141 Potassium 4.4 Chloride 103 Carbon Dioxide 32 Anion Gap 6 L BUN 26 H Creatinine 3.5 H Creat Clearance w eGFR 12.63 POC Glucometer 67 Random Glucose 69 L Calcium 9.0 Total Bilirubin 0.6 AST 16 ALT 8 L Alkaline Phosphatase 194 H Total Protein 8.0 Albumin 1.8 L 03/13/18 16:44 WBC RBC Hgb Hct MCV MCH MCHC RDW Plt Count MPV Absolute Neuts (auto) Neutrophils % Lymphocytes % Monocytes % Eosinophils % Basophils % Nucleated RBC % PT with INR INR PTT (Actin FS) Sodium Potassium Chloride Carbon Dioxide Anion Gap BUN Creatinine Creat Clearance w eGFR POC Glucometer 135 Random Glucose Calcium Total Bilirubin AST ALT Alkaline Phosphatase Total Protein Albumin Microbiology 02/25/18 08:55 Blood - Peripheral Venous Blood Culture - Final NO GROWTH AFTER 5 DAYS INCUBATION 02/25/18 08:40 Blood - Peripheral Venous Blood Culture - Final NO GROWTH AFTER 5 DAYS INCUBATION 02/28/18 20:00 Urine For Antigen Detection Legionella Antigen - Final 02/28/18 20:00 Urine For Antigen Detection Streptococcus pneumoniae Antigen (M - Final 02/20/18 00:04 Blood - Almaz Cath Blood Culture - Final NO GROWTH AFTER 5 DAYS INCUBATION 02/19/18 23:45 Ulcer Gram Stain - Final 02/19/18 23:45 Ulcer Wound Culture - Final Proteus Mirabilis Vr Ec Faecalis Mr S Aureus ASSESSMENT AND PLAN: 77 yo F with reportedly prolonged stay at [facility] for PNA, cdiff (requiring fecal transplant), also with failed transplant kidney in 09/2017 s/p removal/off immunosuppressants on HD, GI diverticular bleed presented to the ER after sacral wound -Sacral wound -Severe malnutrition -Depression -Hypoglycemia, from poor oral intake -Recent PNA, likely aspiration, off abx -C difficile diarrhea, s/p vanco taper -Anemia -ESRD on HD via permacath, vein mapping done Plan: GI/anesthesia input noted. Discussed with Dr. Johnson and anesthesiologist. As discussed with IR earlier, PICC access unlikely given AV fistula and HD access concerns in upper extremity. May need short term femoral access jaspal-procedural, surgery input. Would avoid for prolonged period given risk for infection and risk of pulling. Re-attempt PEG placement on Sunday as discussed with Dr. Ro and access prior to procedure. Repeat CT with no signs of OM. Local wound care, frequent turning, not candidate for wound vac. Psych input noted. Continue remeron. Ethics committe meeting on 03/13, Son Aries reports patient clearly expressing "I want to live' in her lucid states and would want PEG and aggressive measures respecting patient wishes. Marvel Killian in agreement of the same. Palliative care input noted. Nutrition consult. Continue HD. Epogen per renal. Glucagon and BGM prn till PEG in place and appropriate nutrition started. DVTPPX SCDs, given recent large Diverticular bleed. Dispo plan for home dc with services after PEG placement if no concerns.
[2018-03-13] MEDS ORDERED: INSULIN (NOVOLOG) ASPART 100 UNITS/ML 10ML VIAL ONE (19:00)
[2018-03-13] MEDS: MIRTAZAPINE 15 MG TABLET (FP) PO SCH (22:39)
[2018-03-14] MEDS: AMINO ACIDS/PROTEIN HYDROLYS 30 ML LIQUID.PKT PO SCH ×3 (05:34→21:18)
[2018-03-14] MEDS: INSULIN SLIDING SCALE (NOVOLOG) 1 VIAL SQ SCH ×4 (06:02→22:58)
[2018-03-14] MEDS: MINERAL OIL/PET HY-PHL TOPICAL OINTMENT 454 GM JAR TP SCH (11:50)
[2018-03-14] MEDS: amLODIPine BESYLATE 10 MG TABLET (FP) PO SCH (11:50)
[2018-03-14] MEDS: METOPROLOL TARTRATE 25 MG TABLET (FP) PO SCH ×3 (11:50→22:31)
[2018-03-14] MEDS: LACTOBACILLUS ACIDOPHILUS 1 TABLET PO SCH (11:50)
[2018-03-14] MEDS: COLLAGENASE CLOSTRIDIUM HIST. 30 GRAMS TUBE TP SCH (11:51)
--- NOTE | 2018-03-14 13:07 | PN ---
Progress Note, Physician History of Present Illness: Pt seen and examined at bedside. She appears calm. - Current Medication List Current Medications: Active Medications Acetaminophen (Tylenol -) 650 mg PO Q6H PRN PRN Reason: FEVER Last Admin: 02/27/18 11:35 Dose: 650 mg Amino Acids (Prosource No Carb Liquid Pkt) 30 ml PO TID [facility] Last Admin: 03/14/18 05:34 Dose: Not Given Amlodipine Besylate (Norvasc -) 10 mg PO DAILY [facility] Last Admin: 03/14/18 11:50 Dose: 10 mg Collagenase (Santyl -) 1 applic TP DAILY [facility]; Protocol Last Admin: 03/14/18 11:51 Dose: 1 applic Emollient Ointment (Aquaphor -) 1 applic TP DAILY [facility] Last Admin: 03/14/18 11:50 Dose: 1 applic Epoetin Abe (Procrit -) 10,000 unit IVPUSH ONCE ONE Stop: 03/13/18 14:05 Glucagon (Glucagon -) 1 mg SQ [id number] PRN PRN Reason: HYPOGLYCEMIA Sodium Chloride (Normal Saline -) 250 mls @ 3,000 mls/hr IV PRN PRN PRN Reason: Hypotension during Dialysis Stop: 03/13/18 14:04 Insulin Aspart (Novolog Vial Sliding Scale -) 1 vial SQ ACHS [facility]; Protocol Last Admin: 03/14/18 06:02 Dose: Not Given Lactobacillus Acidophilus (Bacid -) 1 tab PO DAILY [facility] Last Admin: 03/14/18 11:50 Dose: 1 tab Metoprolol Tartrate (Lopressor -) 25 mg PO BID [facility] Last Admin: 03/14/18 11:50 Dose: 25 mg Mirtazapine (Remeron -) 15 mg PO HS [facility] Last Admin: 03/13/18 22:39 Dose: 15 mg Morphine Sulfate (Morphine 10 Mg/5 Ml Liquid) 5 mg PO Q6H PRN PRN Reason: PAIN LEVEL 1-5 Last Admin: 03/13/18 16:41 Dose: 5 mg Vancomycin HCl (Vancomycin Oral Solution) 125 mg PO Q2D [facility] Last Admin: 03/13/18 16:40 Dose: 125 mg - Objective Vital Signs: Vital Signs Temperature 97.4 F L 03/14/18 06:21 Pulse Rate 83 03/14/18 06:21 Respiratory Rate 18 03/14/18 06:21 Blood Pressure 132/65 03/14/18 06:21 O2 Sat by Pulse Oximetry (%) 96 03/13/18 21:00 Constitutional: Yes: Calm Eyes: Yes: Conjunctiva Clear Cardiovascular: Yes: S1, S2 Respiratory: Yes: CTA Bilaterally Gastrointestinal: Yes: Soft Genitourinary: Yes: Incontinence Musculoskeletal: Yes: Muscle Weakness Edema: No Neurological: Yes: Confusion Labs: CBC, BMP 03/13/18 07:40 03/13/18 07:40 INR, PTT INR 1.08 (0.83-1.09) 03/13/18 07:40 Problem List - Problems (1) ESRD (end stage renal disease) on dialysis Code(s): N18.6 - END STAGE RENAL DISEASE; Z99.2 - DEPENDENCE ON RENAL DIALYSIS (2) Sacral decubitus ulcer Code(s): L89.159 - PRESSURE ULCER OF SACRAL REGION, UNSPECIFIED STAGE Qualifiers: Pressure injury stage: stage 4 Qualified Code(s): L89.154 - Pressure ulcer of sacral region, stage 4 Assessment/Plan Current Medications Generic Name Dose Route Start Last Admin Trade Name Freq PRN Reason Stop Dose Admin Acetaminophen 650 mg 02/20/18 22:37 02/27/18 11:35 Tylenol - PO 650 mg Q6H PRN Administration FEVER Amino Acids 30 ml 02/27/18 22:00 03/14/18 05:34 Prosource No Carb Liquid Pkt PO Not Given TID [facility] Amlodipine Besylate 10 mg 02/20/18 13:03 03/14/18 11:50 Norvasc - PO 10 mg DAILY [facility] Administration Collagenase 1 applic 02/20/18 10:00 03/14/18 11:51 Santyl - TP 1 applic DAILY [facility] Administration Protocol Emollient Ointment 1 applic 03/02/18 18:00 03/14/18 11:50 Aquaphor - TP 1 applic DAILY [facility] Administration Epoetin Abe 10,000 unit 03/13/18 14:04 Procrit - IVPUSH 03/13/18 14:05 ONCE ONE Glucagon 1 mg 03/05/18 13:52 Glucagon - SQ [id number] PRN HYPOGLYCEMIA Sodium Chloride 250 mls @ 3,000 mls/hr 03/12/18 14:04 Normal Saline - IV 03/13/18 14:04 PRN PRN Hypotension during Dialysis Insulin Aspart 1 vial 02/24/18 09:43 03/14/18 06:02 Novolog Vial Sliding Scale - SQ Not Given ACHS [facility] Protocol Lactobacillus Acidophilus 1 tab 02/20/18 10:00 03/14/18 11:50 Bacid - PO 1 tab DAILY [facility] Administration Metoprolol Tartrate 25 mg 02/20/18 10:00 03/14/18 11:50 Lopressor - PO 25 mg BID [facility] Administration Mirtazapine 15 mg 03/06/18 22:00 03/13/18 22:39 Remeron - PO 15 mg HS [facility] Administration Morphine Sulfate 5 mg 03/13/18 13:30 03/13/18 16:41 Morphine 10 Mg/5 Ml Liquid PO 5 mg Q6H PRN Administration PAIN LEVEL 1-5 Vancomycin HCl 125 mg 03/11/18 10:00 03/13/18 16:40 Vancomycin Oral Solution PO 125 mg Q2D [facility] Administration Impression 1. ESRD 2. failed kidney transplant 3. hx DM 4. Hx HTN 5. sacral ulcer 6. post op infection 7. c.diff 8. a-fib 9. failure to thrive 10.malnutrition 11. anemia 12. GI bleed 13. PNA Plan - HD in am - encourage PO intake - will need IV access - epogen for anemia - will follow Dr Winters
--- NOTE | 2018-03-14 13:17 | CON.GI ---
Consult - Past Medical History Cardio/Vascular: Yes: HTN, Hyperlipdemia Renal/: Yes: Renal Failure, Renal Inusuff, Hemodialysis ...: No Infectious Disease: Yes: C-Diff, Other (ecoli esbl wound infection) Endocrine: Yes: Diabetes Mellitus - Past Surgical History Past Surgical History: Yes: Kidney Transplant Additional Surgical History: removal of kidney transplant - Alcohol/Substance Use Hx Alcohol Use: No - Smoking History Smoking history: Unknown if ever smoked Have you smoked in the past 12 months: No - Social History Usual Living Arrangement: With Significant Other ADL: Family Assistance History of Recent Travel: No Home Medications - Allergies Allergies/Adverse Reactions: Allergies Allergy/AdvReac Type Severity Reaction Status Date / Time No Known Allergies Allergy Verified 02/18/18 21:53 - Home Medications Home Medications: Ambulatory Orders Lactobacillus Acidophilus [Bacid -] 1 tab PO DAILY #30 tab 02/11/18 Metoprolol Tartrate [Lopressor -] 25 mg PO BID #60 tablet 02/11/18 Vancomycin Oral Solution 125 mg PO Q6HPO #100 ml 02/11/18 Amlodipine Besylate [Norvasc -] 5 mg PO DAILY #30 tablet 02/16/18 Miscellaneous Medical Supply [Glucometer Device] 1 each SQ ASDIR #1 kit Miscellaneous Medical Supply [Glucometer Test Strips #50] 1 each SQ ASDIR #1 box 02/16/18 Miscellaneous Medical Supply [Lancets] 1 each SQ ASDIR #1 box 02/16/18 Miscellaneous Medical Supply [Outpatient Order] 1 each MC ASDIR #1 misc Amino Acids/Protein Hydrolys [Prosource No Carb Liquid Pkt] 30 ml PO BID #10 liquid.pkt 02/22/18 Amino Acids/Protein Hydrolys [Prosource No Carb Liquid Pkt] 30 ml PO BID #30 liquid.pkt 02/22/18 Amlodipine Besylate [Norvasc -] 10 mg PO DAILY #30 tablet 02/22/18 Collagenase Clostridium Hist. [Santyl] 1 bottle TP DAILY #5 oint...g. 02/22/18 Gauze Bandage [Gauze] 1 box TP DAILY #5 bandage 02/22/18 Gauze Bandage [Gauze] 1 each TP DAILY #30 bandage 02/22/18 Nut.tx.imp.renal Fxn,Lac-Reduc [Nepro Carb Steady] 237 ml PO DAILY #30 liquid Nut.tx.imp.renal Fxn,Lac-Reduc [Nepro Carb Steady] 237 ml PO DAILY #30 liquid Physical Exam-GI Vital Signs: Vital Signs Temperature 97.4 F L 03/14/18 06:21 Pulse Rate 83 03/14/18 06:21 Respiratory Rate 18 03/14/18 06:21 Blood Pressure 132/65 03/14/18 06:21 O2 Sat by Pulse Oximetry (%) 96 03/13/18 21:00 Labs: CBC, BMP 03/13/18 07:40 03/13/18 07:40 INR, PTT INR 1.08 (0.83-1.09) 03/13/18 07:40 Problem List - Problems (1) Failure to thrive in adult Code(s): R62.7 - ADULT FAILURE TO THRIVE
--- NOTE | 2018-03-14 14:23 | PN ---
Teaching Attending Note Name of Resident: Fernando Ricci ATTENDING PHYSICIAN STATEMENT I saw and evaluated the patient. I reviewed the resident's note and discussed the case with the resident. I agree with the resident's findings and plan as documented with exceptions below. SUBJECTIVE: Patient seen and examined. pleasant, asking to eat, no complaints. OBJECTIVE: Vital Signs Period Temp Pulse Resp BP Sys/Franco Pulse Ox Last 24 Hr 97.4 F-98.1 F 60-97 -18 89-132/38-92 96 Intake & Output 03/11/18 03/12/18 03/13/18 03/14/18 23:59 23:59 23:59 23:59 Intake Total 0 720 250 50 Balance 0 720 250 50 General: awake, pleasant, no acute distress, cachectic female Chest: poor effort Abdomen:soft, NT, ND Extremities: no edema, heel dressings Active Medications Acetaminophen (Tylenol -) 650 mg PO Q6H PRN PRN Reason: FEVER Last Admin: 02/27/18 11:35 Dose: 650 mg Amino Acids (Prosource No Carb Liquid Pkt) 30 ml PO TID [facility] Last Admin: 03/14/18 13:52 Dose: 30 ml Amlodipine Besylate (Norvasc -) 10 mg PO DAILY [facility] Last Admin: 03/14/18 11:50 Dose: 10 mg Collagenase (Santyl -) 1 applic TP DAILY [facility]; Protocol Last Admin: 03/14/18 11:51 Dose: 1 applic Emollient Ointment (Aquaphor -) 1 applic TP DAILY [facility] Last Admin: 03/14/18 11:50 Dose: 1 applic Epoetin Abe (Procrit -) 10,000 unit IVPUSH ONCE ONE Stop: 03/13/18 14:05 Epoetin Abe (Epogen -) 10,000 unit IVPUSH ONCE ONE Stop: 03/15/18 13:09 Glucagon (Glucagon -) 1 mg SQ [id number] PRN PRN Reason: HYPOGLYCEMIA Sodium Chloride (Normal Saline -) 250 mls @ 3,000 mls/hr IV PRN PRN PRN Reason: Hypotension during Dialysis Stop: 03/13/18 14:04 Sodium Chloride (Normal Saline -) 250 mls @ 3,000 mls/hr IV PRN PRN PRN Reason: Hypotension during Dialysis Stop: 11/23/18 13:08 Insulin Aspart (Novolog Vial Sliding Scale -) 1 vial SQ ACHS [facility]; Protocol Last Admin: 03/14/18 13:52 Dose: Not Given Lactobacillus Acidophilus (Bacid -) 1 tab PO DAILY [facility] Last Admin: 03/14/18 11:50 Dose: 1 tab Metoprolol Tartrate (Lopressor -) 25 mg PO BID [facility] Last Admin: 03/14/18 11:50 Dose: 25 mg Mirtazapine (Remeron -) 15 mg PO HS [facility] Last Admin: 03/13/18 22:39 Dose: 15 mg Morphine Sulfate (Morphine 10 Mg/5 Ml Liquid) 5 mg PO Q6H PRN PRN Reason: PAIN LEVEL 1-5 Last Admin: 03/13/18 16:41 Dose: 5 mg Vancomycin HCl (Vancomycin Oral Solution) 125 mg PO Q2D [facility] Last Admin: 03/13/18 16:40 Dose: 125 mg Laboratory Results - last 24 hr 03/13/18 03/13/18 16:44 22:56 POC Glucometer 135 140 ASSESSMENT AND PLAN: 77 yo F with reportedly prolonged stay at [facility] for PNA, cdiff (requiring fecal transplant), also with failed transplant kidney in 09/2017 s/p removal/off immunosuppressants on HD, GI diverticular bleed presented to the ER after sacral wound -Sacral wound -Severe malnutrition -Depression -Hypoglycemia, from poor oral intake -Recent PNA, likely aspiration, off abx -C difficile diarrhea, s/p vanco taper -Anemia -ESRD on HD via permacath, vein mapping done Plan: Plan for PEG, surgical input for IV access as not a candidate for PICC currently. Repeat CT with no signs of OM. Local wound care, frequent turning, not candidate for wound vac. Psych input noted. Continue remeron. Ethics committe meeting on 03/13, Son Aries reports patient clearly expressing "I want to live' in her lucid states and would want PEG and aggressive measures respecting patient wishes. Son Constantin in agreement of the same. Palliative care input noted. Nutrition consult. Continue HD. Epogen per renal. Glucagon and BGM prn till PEG in place and appropriate nutrition started. DVTPPX SCDs, given recent large Diverticular bleed. Dispo plan for home dc with services after PEG placement if no concerns.
--- NOTE | 2018-03-14 18:40 | PN ---
Physical Exam: SUBJECTIVE: Patient seen and examined at bedside. No acute events overnight. HD tomorrow AM. I.V access needed for placement of PEG. OBJECTIVE: Vital Signs Period Temp Pulse Resp BP Sys/Franco Pulse Ox Last 24 Hr 97.4 F-98.8 F 69-88 18-18 105-132/49-81 96-96 GENERAL: Frail Appearing female. Cachechtic HEAD: NC/AT EYES: EOMI No scleral icterus conjunctiva not injected LUNGS: Poor inspiratory effort HEART: RRR No MRG S1S2 ABDOMEN: Soft NDNT EXTREMITIES: Thin, atrophy, bandage right heel. Laboratory Results - last 24 hr 03/13/18 22:56 POC Glucometer 140 Active Medications Generic Name Dose Route Start Last Admin Trade Name Freq PRN Reason Stop Dose Admin Acetaminophen 650 mg 02/20/18 22:37 02/27/18 11:35 Tylenol - PO 650 mg Q6H PRN Administration FEVER Amino Acids 30 ml 02/27/18 22:00 03/14/18 13:52 Prosource No Carb Liquid Pkt PO 30 ml TID [facility] Administration Amlodipine Besylate 10 mg 02/20/18 13:03 03/14/18 11:50 Norvasc - PO 10 mg DAILY [facility] Administration Collagenase 1 applic 02/20/18 10:00 03/14/18 11:51 Santyl - TP 1 applic DAILY [facility] Administration Protocol Emollient Ointment 1 applic 03/02/18 18:00 03/14/18 11:50 Aquaphor - TP 1 applic DAILY [facility] Administration Epoetin Abe 10,000 unit 03/13/18 14:04 Procrit - IVPUSH 03/13/18 14:05 ONCE ONE Epoetin Abe 10,000 unit 03/15/18 13:08 Epogen - IVPUSH 03/15/18 13:09 ONCE ONE Glucagon 1 mg 03/05/18 13:52 Glucagon - SQ [id number] PRN HYPOGLYCEMIA Sodium Chloride 250 mls @ 3,000 mls/hr 03/12/18 14:04 Normal Saline - IV 03/13/18 14:04 PRN PRN Hypotension during Dialysis Sodium Chloride 250 mls @ 3,000 mls/hr 03/14/18 13:08 Normal Saline - IV 03/15/18 13:08 PRN PRN Hypotension during Dialysis Insulin Aspart 1 vial 02/24/18 09:43 03/14/18 13:52 Novolog Vial Sliding Scale - SQ Not Given ACHS [facility] Protocol Lactobacillus Acidophilus 1 tab 02/20/18 10:00 03/14/18 11:50 Bacid - PO 1 tab DAILY [facility] Administration Metoprolol Tartrate 25 mg 02/20/18 10:00 03/14/18 11:50 Lopressor - PO 25 mg BID [facility] Administration Mirtazapine 15 mg 03/06/18 22:00 03/13/18 22:39 Remeron - PO 15 mg HS [facility] Administration Morphine Sulfate 5 mg 03/13/18 13:30 03/13/18 16:41 Morphine 10 Mg/5 Ml Liquid PO 5 mg Q6H PRN Administration PAIN LEVEL 1-5 Vancomycin HCl 125 mg 03/11/18 10:00 03/13/18 16:40 Vancomycin Oral Solution PO 125 mg Q2D [facility] Administration ASSESSMENT/PLAN: Patient is a 77 year old female with history of ESRD on HD Sun, Sun, Sun, s/p kidney transplant 10/08, diabetes mellitus, hypertension, Afib not on anticoagulation due to GI bleed on prior admission, recently discharged from [facility], presents for complaint of sacral ulcer, requiring wound care. Stage IV sacral decubitus ulcer -Surgery--> Santyl to sacrum daily, Alleven over sacrum, Alleven over b/l heels , Offload pressure areas with frequent repositioning, 02/26/18 CT Abd/Pelvis--> No CT Evidence of osteomyelitis. #ESRD on hemodialysis -Nephrology-Dr Winters on board. HD 03/13/18--> FAIRLY TOLERATED. 1.00 KG WT REMOVED -HD in AM 03/15/18. Epogen per renal. #Hypoglycemia -Glucagon Q15 min SQ PRN hypoglycemia #C. Difficile infection -Vanco 125 po every 48 hours -Contact precautions #Atrial fibrillation -Lopressor 25 po bid -No AC at this time due to h/o G.I bleed on last admission. #Hypertension -Continue Norvasc 10 mg PO daily #Malnutrition -PEG Tube agreed upon by family and medical team. Went for procedure Sunday. Peripheral I.V acess was not attainable, PEG procedure deferred to tomorrow. -Psychiatry, Dr Milligan evaluated pt 03/06/18, deemed pt not competent to give informed consent regarding her medical treatment. Pt started on Remeron 15 HS for depression and in aid in increase PO. #FEN No IV fluids Monitor electrolytes NPO after midnight Prophylaxis No anticoagulation in light of G.I bleed on previous admission. Disposition- Home if PEG successful Visit type - Emergency Visit Emergency Visit: Yes ED Registration Date: 02/27/18 Care time: The patient presented to the Emergency Department on the above date and was hospitalized for further evaluation of their emergent condition. - New Patient This patient is new to me today: No - Critical Care Critical Care patient: No - Discharge Referral Referred to [facility] No
[2018-03-14] MEDS: MIRTAZAPINE 15 MG TABLET (FP) PO SCH (22:28)
[2018-03-15] MEDS: AMINO ACIDS/PROTEIN HYDROLYS 30 ML LIQUID.PKT PO SCH ×3 (05:01→21:50)
[2018-03-15] MEDS: INSULIN SLIDING SCALE (NOVOLOG) 1 VIAL SQ SCH ×4 (06:19→21:43)
[2018-03-15] MEDS: LACTOBACILLUS ACIDOPHILUS 1 TABLET PO SCH (10:19)
[2018-03-15] MEDS: METOPROLOL TARTRATE 25 MG TABLET (FP) PO SCH ×2 (10:19→21:50)
[2018-03-15] MEDS: MINERAL OIL/PET HY-PHL TOPICAL OINTMENT 454 GM JAR TP SCH (10:19)
[2018-03-15] MEDS: amLODIPine BESYLATE 10 MG TABLET (FP) PO SCH (10:20)
[2018-03-15] MEDS: COLLAGENASE CLOSTRIDIUM HIST. 30 GRAMS TUBE TP SCH (10:20)
[2018-03-15] MEDS: VANCOMYCIN 250 MG/5 ML ORAL SOLUTION PO SCH (10:21)
--- NOTE | 2018-03-15 12:30 | PN ---
Progress Note (short form) - Note Progress Note: No IV access as of yet for PEG. This was discussed Sunday after attempt for PEG aborted due to lack of anesthesia consent and no IV access. This was discussed between anesthesia and Dr. Islas this past Sunday. Awaiting IV access. Discussed with Anesthesia and Dr. Islas today. Problem List - Problems (1) Failure to thrive in adult Code(s): R62.7 - ADULT FAILURE TO THRIVE
[2018-03-15] MEDS: GLUCAGON 1 MG KIT SQ PRN (13:08)
--- NOTE | 2018-03-15 15:44 | PN ---
Physical Exam: SUBJECTIVE: Patient seen and examined at bedside. Appears more confused. BGM hypoglycemic range earlier this am. Awaiting I.V access for PEG tube placement. OBJECTIVE: Vital Signs Period Temp Pulse Resp BP Sys/Franco Pulse Ox Last 24 Hr 97.5 F-98.4 F 70-75 18-20 119-136/65-68 95-96 GENERAL: AAOx1, Lethargic, Diffuse muscle wasting HEAD: NC/AT EYES: EOMI No scleral icterus conjunctiva not injected LUNGS: Poor inspiratory effort HEART: RRR No MRG S1S2 ABDOMEN: Soft NDNT EXTREMITIES: Diffuse Muscle atrophy, Sacral Ulcer, cachechtic. Laboratory Results - last 24 hr 03/14/18 03/14/18 03/14/18 18:07 18:31 22:42 POC Glucometer 62 105 87 03/15/18 03/15/18 03/15/18 05:52 12:15 12:55 POC Glucometer 88 58 45 03/15/18 14:02 POC Glucometer 81 Active Medications Generic Name Dose Route Start Last Admin Trade Name Berta PRN Reason Stop Dose Admin Acetaminophen 650 mg 02/20/18 22:37 02/27/18 11:35 Tylenol - PO 650 mg Q6H PRN Administration FEVER Amino Acids 30 ml 02/27/18 22:00 03/15/18 05:01 Prosource No Carb Liquid Pkt PO Not Given TID [facility] Amlodipine Besylate 10 mg 02/20/18 13:03 03/15/18 10:20 Norvasc - PO 10 mg DAILY [facility] Administration Collagenase 1 applic 02/20/18 10:00 03/15/18 10:20 Santyl - TP Not Given DAILY [facility] Protocol Emollient Ointment 1 applic 03/02/18 18:00 03/15/18 10:19 Aquaphor - TP 1 applic DAILY [facility] Administration Epoetin Abe 10,000 unit 03/15/18 13:08 Epogen - IVPUSH 03/15/18 13:09 ONCE ONE Glucagon 1 mg 03/05/18 13:52 03/15/18 13:08 Glucagon - SQ 1 mg [id number] PRN Administration HYPOGLYCEMIA Sodium Chloride 250 mls @ 3,000 mls/hr 03/14/18 13:08 Normal Saline - IV 03/15/18 13:08 PRN PRN Hypotension during Dialysis Insulin Aspart 1 vial 02/24/18 09:43 03/15/18 11:10 Novolog Vial Sliding Scale - SQ Not Given ACHS [facility] Protocol Lactobacillus Acidophilus 1 tab 02/20/18 10:00 03/15/18 10:19 Bacid - PO 1 tab DAILY [facility] Administration Metoprolol Tartrate 25 mg 02/20/18 10:00 03/15/18 10:19 Lopressor - PO 25 mg BID [facility] Administration Mirtazapine 15 mg 03/06/18 22:00 03/14/18 22:28 Remeron - PO 15 mg HS [facility] Administration Morphine Sulfate 5 mg 03/13/18 13:30 03/13/18 16:41 Morphine 10 Mg/5 Ml Liquid PO 5 mg Q6H PRN Administration PAIN LEVEL 1-5 Vancomycin HCl 125 mg 03/11/18 10:00 03/15/18 10:21 Vancomycin Oral Solution PO 125 mg Q2D [facility] Administration ASSESSMENT/PLAN: Patient is a 77 year old female with history of ESRD on HD Sun, Sun, Sun, s/p kidney transplant 10/08, diabetes mellitus, hypertension, Afib not on anticoagulation due to GI bleed on prior admission, recently discharged from [facility], presents for complaint of sacral ulcer, requiring wound care. #Malnutrition -PEG Tube agreed upon by family and medical team. Went for procedure Sunday. Peripheral I.V access was not attainable, PEG procedure deferred to today. Still has no I.V access, awaiting placement. -Psychiatry, Dr Milligan evaluated pt 03/06/18, deemed pt not competent to give informed consent regarding her medical treatment. Pt started on Remeron 15 HS for depression and in aid in increase PO. #Stage IV sacral decubitus ulcer -Surgery--> Santyl to sacrum daily, Alleven over sacrum, Alleven over b/l heels , Offload pressure areas with frequent repositioning, 02/26/18 CT Abd/Pelvis--> No CT Evidence of osteomyelitis. #ESRD on hemodialysis -Nephrology-Dr Winters on board. HD Today 03/15/18 - Epogen per renal. #Hypoglycemia -Glucagon Q15 min SQ PRN hypoglycemia #C. Difficile infection -Vanco 125 po every 48 hours -Contact precautions #Atrial fibrillation -Lopressor 25 po bid -No AC at this time due to h/o G.I bleed on last admission. #Hypertension -Continue Norvasc 10 mg PO daily #FEN No IV fluids Monitor electrolytes NPO after midnight Prophylaxis No anticoagulation in light of G.I bleed on previous admission. Disposition- Home if PEG successful Visit type - Emergency Visit Emergency Visit: Yes ED Registration Date: 02/27/18 Care time: The patient presented to the Emergency Department on the above date and was hospitalized for further evaluation of their emergent condition. - New Patient This patient is new to me today: No - Critical Care Critical Care patient: No - Discharge Referral Referred to [facility] No
--- NOTE | 2018-03-15 16:10 | PN ---
Progress Note (short form) - Note Progress Note: Spoke with Dr. Islas. She will be communicating with surgery to have femoral access placed this weekend. If access available, plan for PEG sunday 03/18. Problem List - Problems (1) Failure to thrive in adult Code(s): R62.7 - ADULT FAILURE TO THRIVE
--- NOTE | 2018-03-15 16:22 | PN ---
Progress Note, Physician History of Present Illness: Pt seen and examined at bedside. Peg again was cancelled as she does not have access. - Current Medication List Current Medications: Active Medications Acetaminophen (Tylenol -) 650 mg PO Q6H PRN PRN Reason: FEVER Last Admin: 02/27/18 11:35 Dose: 650 mg Amino Acids (Prosource No Carb Liquid Pkt) 30 ml PO TID [facility] Last Admin: 03/15/18 05:01 Dose: Not Given Amlodipine Besylate (Norvasc -) 10 mg PO DAILY [facility] Last Admin: 03/15/18 10:20 Dose: 10 mg Collagenase (Santyl -) 1 applic TP DAILY [facility]; Protocol Last Admin: 03/15/18 10:20 Dose: Not Given Emollient Ointment (Aquaphor -) 1 applic TP DAILY [facility] Last Admin: 03/15/18 10:19 Dose: 1 applic Epoetin Abe (Epogen -) 10,000 unit IVPUSH ONCE ONE Stop: 03/15/18 13:09 Glucagon (Glucagon -) 1 mg SQ [id number] PRN PRN Reason: HYPOGLYCEMIA Last Admin: 03/15/18 13:08 Dose: 1 mg Sodium Chloride (Normal Saline -) 250 mls @ 3,000 mls/hr IV PRN PRN PRN Reason: Hypotension during Dialysis Stop: 03/15/18 13:08 Insulin Aspart (Novolog Vial Sliding Scale -) 1 vial SQ ACHS [facility]; Protocol Last Admin: 03/15/18 11:10 Dose: Not Given Lactobacillus Acidophilus (Bacid -) 1 tab PO DAILY [facility] Last Admin: 03/15/18 10:19 Dose: 1 tab Metoprolol Tartrate (Lopressor -) 25 mg PO BID [facility] Last Admin: 03/15/18 10:19 Dose: 25 mg Mirtazapine (Remeron -) 15 mg PO HS [facility] Last Admin: 03/14/18 22:28 Dose: 15 mg Morphine Sulfate (Morphine 10 Mg/5 Ml Liquid) 5 mg PO Q6H PRN PRN Reason: PAIN LEVEL 1-5 Last Admin: 03/13/18 16:41 Dose: 5 mg Vancomycin HCl (Vancomycin Oral Solution) 125 mg PO Q2D [facility] Last Admin: 03/15/18 10:21 Dose: 125 mg - Objective Vital Signs: Vital Signs Temperature 97.5 F L 03/15/18 15:28 Pulse Rate 74 03/15/18 15:28 Respiratory Rate 20 03/15/18 15:28 Blood Pressure 120/66 03/15/18 15:28 O2 Sat by Pulse Oximetry (%) 96 03/15/18 09:00 Constitutional: Yes: Calm Eyes: Yes: Conjunctiva Clear HENT: Yes: Atraumatic Neck: Yes: Supple Cardiovascular: Yes: S1, S2 Respiratory: Yes: CTA Bilaterally Gastrointestinal: Yes: Normal Bowel Sounds, Soft Genitourinary: Yes: Incontinence Musculoskeletal: Yes: Muscle Weakness Edema: No Neurological: Yes: Confusion Labs: CBC, BMP 03/13/18 07:40 03/13/18 07:40 INR, PTT INR 1.08 (0.83-1.09) 03/13/18 07:40 Problem List - Problems (1) ESRD (end stage renal disease) on dialysis Code(s): N18.6 - END STAGE RENAL DISEASE; Z99.2 - DEPENDENCE ON RENAL DIALYSIS (2) Sacral decubitus ulcer Code(s): L89.159 - PRESSURE ULCER OF SACRAL REGION, UNSPECIFIED STAGE Qualifiers: Pressure injury stage: stage 4 Qualified Code(s): L89.154 - Pressure ulcer of sacral region, stage 4 Assessment/Plan Current Medications Generic Name Dose Route Start Last Admin Trade Name Freq PRN Reason Stop Dose Admin Acetaminophen 650 mg 02/20/18 22:37 02/27/18 11:35 Tylenol - PO 650 mg Q6H PRN Administration FEVER Amino Acids 30 ml 02/27/18 22:00 03/15/18 05:01 Prosource No Carb Liquid Pkt PO Not Given TID [facility] Amlodipine Besylate 10 mg 02/20/18 13:03 03/15/18 10:20 Norvasc - PO 10 mg DAILY [facility] Administration Collagenase 1 applic 02/20/18 10:00 03/15/18 10:20 Santyl - TP Not Given DAILY [facility] Protocol Emollient Ointment 1 applic 03/02/18 18:00 03/15/18 10:19 Aquaphor - TP 1 applic DAILY [facility] Administration Epoetin Abe 10,000 unit 03/15/18 13:08 Epogen - IVPUSH 03/15/18 13:09 ONCE ONE Glucagon 1 mg 03/05/18 13:52 03/15/18 13:08 Glucagon - SQ 1 mg [id number] PRN Administration HYPOGLYCEMIA Sodium Chloride 250 mls @ 3,000 mls/hr 03/14/18 13:08 Normal Saline - IV 03/15/18 13:08 PRN PRN Hypotension during Dialysis Insulin Aspart 1 vial 02/24/18 09:43 03/15/18 11:10 Novolog Vial Sliding Scale - SQ Not Given ACHS [facility] Protocol Lactobacillus Acidophilus 1 tab 02/20/18 10:00 03/15/18 10:19 Bacid - PO 1 tab DAILY [facility] Administration Metoprolol Tartrate 25 mg 02/20/18 10:00 03/15/18 10:19 Lopressor - PO 25 mg BID [facility] Administration Mirtazapine 15 mg 03/06/18 22:00 03/14/18 22:28 Remeron - PO 15 mg HS [facility] Administration Morphine Sulfate 5 mg 03/13/18 13:30 03/13/18 16:41 Morphine 10 Mg/5 Ml Liquid PO 5 mg Q6H PRN Administration PAIN LEVEL 1-5 Vancomycin HCl 125 mg 03/11/18 10:00 03/15/18 10:21 Vancomycin Oral Solution PO 125 mg Q2D [facility] Administration Impression 1. ESRD 2. failed kidney transplant 3. hx DM 4. Hx HTN 5. sacral ulcer 6. post op infection 7. c.diff 8. a-fib 9. failure to thrive 10.malnutrition 11. anemia 12. GI bleed 13. PNA Plan - HD today - pt needs IV access - pt pending peg - encourage PO intake, one to one feeds - epogen for anemia - will follow Dr Winters
[2018-03-15] MEDS ORDERED: SODIUM CHLORIDE 250 ML IV PRN (17:37)
--- NOTE | 2018-03-15 18:03 | PN ---
Teaching Attending Note Name of Resident: Fernando Ricci ATTENDING PHYSICIAN STATEMENT I saw and evaluated the patient. I reviewed the resident's note and discussed the case with the resident. I agree with the resident's findings and plan as documented with exceptions below. SUBJECTIVE: Patient seen and examined, awake, interactive, agreable to eat. no complaints. OBJECTIVE: Vital Signs Period Temp Pulse Resp BP Sys/Franco Pulse Ox Last 24 Hr 97.5 F-98.4 F 70-75 18-20 119-136/65-68 95-97 Intake & Output 03/12/18 03/13/18 03/14/18 03/15/18 23:59 23:59 23:59 23:59 Intake Total 720 250 500 120 Balance 720 250 500 120 General: lying in bed in no acute distress, cachectic Chest: poor effort, no rales or wheezing Abdomen:soft, NT Extremities: no edema Active Medications Acetaminophen (Tylenol -) 650 mg PO Q6H PRN PRN Reason: FEVER Last Admin: 02/27/18 11:35 Dose: 650 mg Amino Acids (Prosource No Carb Liquid Pkt) 30 ml PO TID [facility] Last Admin: 03/15/18 17:53 Dose: Not Given Amlodipine Besylate (Norvasc -) 10 mg PO DAILY [facility] Last Admin: 03/15/18 10:20 Dose: 10 mg Collagenase (Santyl -) 1 applic TP DAILY [facility]; Protocol Last Admin: 03/15/18 10:20 Dose: Not Given Emollient Ointment (Aquaphor -) 1 applic TP DAILY [facility] Last Admin: 03/15/18 10:19 Dose: 1 applic Epoetin Abe (Procrit -) 10,000 unit IVPUSH ONCE ONE Stop: 03/15/18 18:31 Glucagon (Glucagon -) 1 mg SQ [id number] PRN PRN Reason: HYPOGLYCEMIA Last Admin: 03/15/18 13:08 Dose: 1 mg Sodium Chloride (Normal Saline -) 250 mls @ 3,000 mls/hr IV PRN PRN PRN Reason: Hypotension during Dialysis Stop: 03/16/18 06:00 Insulin Aspart (Novolog Vial Sliding Scale -) 1 vial SQ ACHS [facility]; Protocol Last Admin: 03/15/18 17:53 Dose: Not Given Lactobacillus Acidophilus (Bacid -) 1 tab PO DAILY [facility] Last Admin: 03/15/18 10:19 Dose: 1 tab Metoprolol Tartrate (Lopressor -) 25 mg PO BID [facility] Last Admin: 03/15/18 10:19 Dose: 25 mg Mirtazapine (Remeron -) 15 mg PO HS [facility] Last Admin: 03/14/18 22:28 Dose: 15 mg Morphine Sulfate (Morphine 10 Mg/5 Ml Liquid) 5 mg PO Q6H PRN PRN Reason: PAIN LEVEL 1-5 Last Admin: 03/13/18 16:41 Dose: 5 mg Vancomycin HCl (Vancomycin Oral Solution) 125 mg PO Q2D [facility] Last Admin: 03/15/18 10:21 Dose: 125 mg Laboratory Results - last 24 hr 03/14/18 03/14/18 03/14/18 18:07 18:31 22:42 POC Glucometer 62 105 87 03/15/18 03/15/18 03/15/18 05:52 12:15 12:55 POC Glucometer 88 58 45 03/15/18 03/15/18 14:02 16:23 POC Glucometer 81 80 ASSESSMENT AND PLAN: 77 yo F with reportedly prolonged stay at [facility] for PNA, cdiff (requiring fecal transplant), also with failed transplant kidney in 09/2017 s/p removal/off immunosuppressants on HD, GI diverticular bleed presented to the ER after sacral wound -Sacral wound -Severe malnutrition -Depression -Hypoglycemia, from poor oral intake -Recent PNA, likely aspiration, off abx -C difficile diarrhea, s/p vanco taper -Anemia -ESRD on HD via permacath, vein mapping done Plan: Plan for PEG, surgical input for IV access as not a candidate for PICC currently. Discussed with surgical PA, Anesthesia, GI. Plan for right femoral access prior to PEG placement. Avoid prolonged femoral access given risk for infection. Repeat CT with no signs of OM. Local wound care, frequent turning, not candidate for wound vac. Psych input noted. Continue remeron. Ethics committe meeting on 03/13, Son Aries reports patient clearly expressing "I want to live' in her lucid states and would want PEG and aggressive measures respecting patient wishes. Son Constantin in agreement of the same. Palliative care input noted. Nutrition consult. Continue HD. Epogen per renal. Glucagon and BGM prn till PEG in place and appropriate nutrition started. DVTPPX SCDs, given recent large Diverticular bleed. Dispo plan for home dc with services after PEG placement if no concerns.
[2018-03-15 18:11] LABS: HEMATOCRIT 26.8 % (32.4-45.2); HEMOGLOBIN 9.2 GM/dL (10.7-15.3); MCH 33.4 pg (25.7-33.7); MCHC 34.1 g/dl (32.0-36.0); MEAN CELL VOLUME 97.8 fl (80-96); MEAN PLT VOLUME 9.8 fl (7.5-11.1); PLATELET COUNT 221 K/MM3 (134-434); RBC 2.74 M/mm3 (3.60-5.2); RDW 18.6 % (11.6-15.6); WHITE BLOOD COUNT 6.7 K/mm3 (4.0-10.0)
[2018-03-15] MEDS ORDERED: EPOETIN ALFA 10,000 UNIT/1 ML VIAL IVPUSH ONE (18:30)
[2018-03-15 18:37] LABS: ANION GAP 5 MMOL/L (8-16); BLOOD UREA NITROGEN 33 mg/dL (7-18); CALCIUM 8.2 mg/dL (8.5-10.1); CHLORIDE 105 mmol/L (98-107); CO2 32 mmol/L (21-32); CREATININE 3.6 mg/dL (0.55-1.3); GLUCOSE,RANDOM 57 mg/dL (74-106); POTASSIUM 4.7 mmol/L (3.5-5.1); SODIUM 142 mmol/L (136-145)
[2018-03-15] MEDS ORDERED: PT OWN MED DRAWER 7, Y5N ONE (20:27)
[2018-03-15] MEDS: morphine SULFATE 10 MG/5 ML UNIT-DOSE CUP PO PRN (21:49)
[2018-03-15] MEDS: MIRTAZAPINE 15 MG TABLET (FP) PO SCH (21:50)
[2018-03-16] MEDS: INSULIN SLIDING SCALE (NOVOLOG) 1 VIAL SQ SCH ×4 (06:23→22:52)
[2018-03-16] MEDS: AMINO ACIDS/PROTEIN HYDROLYS 30 ML LIQUID.PKT PO SCH ×3 (06:26→22:53)
[2018-03-16] MEDS: LACTOBACILLUS ACIDOPHILUS 1 TABLET PO SCH (10:00)
[2018-03-16] MEDS: METOPROLOL TARTRATE 25 MG TABLET (FP) PO SCH ×2 (10:00→22:52)
[2018-03-16] MEDS: ACETAMINOPHEN 325 MG TABLET (FP) PO PRN (10:01)
[2018-03-16] MEDS: amLODIPine BESYLATE 10 MG TABLET (FP) PO SCH (10:02)
[2018-03-16] MEDS: COLLAGENASE CLOSTRIDIUM HIST. 30 GRAMS TUBE TP SCH (10:04)
[2018-03-16] MEDS: MINERAL OIL/PET HY-PHL TOPICAL OINTMENT 454 GM JAR TP SCH (10:04)
--- NOTE | 2018-03-16 11:41 | PN ---
Teaching Attending Note Name of Resident: Frenando Peter ATTENDING PHYSICIAN STATEMENT I saw and evaluated the patient. I reviewed the resident's note and discussed the case with the resident. I agree with the resident's findings and plan as documented with exceptions below. SUBJECTIVE: Patient seen and examined. Agreable to eat, pleasant, no complaints. OBJECTIVE: Vital Signs Period Temp Pulse Resp BP Sys/Franco Pulse Ox Last 24 Hr 97.4 F-98.2 F 71-99 16-20 91-141/56-100 100 Intake & Output 03/13/18 03/14/18 03/15/18 03/16/18 23:59 23:59 23:59 23:59 Intake Total 250 500 140 200 Balance 250 500 140 200 General: lying in bed in no acute distress Chest: decreased effort Abdomen:Soft, NT, ND Extremities: no edema Active Medications Acetaminophen (Tylenol -) 650 mg PO Q6H PRN PRN Reason: FEVER Last Admin: 03/16/18 10:01 Dose: 650 mg Amino Acids (Prosource No Carb Liquid Pkt) 30 ml PO TID [facility] Last Admin: 03/16/18 06:26 Dose: Not Given Amlodipine Besylate (Norvasc -) 10 mg PO DAILY [facility] Last Admin: 03/16/18 10:02 Dose: 10 mg Collagenase (Santyl -) 1 applic TP DAILY [facility]; Protocol Last Admin: 03/16/18 10:04 Dose: 1 applic Emollient Ointment (Aquaphor -) 1 applic TP DAILY [facility] Last Admin: 03/16/18 10:04 Dose: 1 applic Glucagon (Glucagon -) 1 mg SQ [id number] PRN PRN Reason: HYPOGLYCEMIA Last Admin: 03/15/18 13:08 Dose: 1 mg Insulin Aspart (Novolog Vial Sliding Scale -) 1 vial SQ ACHS [facility]; Protocol Last Admin: 03/16/18 06:23 Dose: Not Given Lactobacillus Acidophilus (Bacid -) 1 tab PO DAILY [facility] Last Admin: 03/16/18 10:00 Dose: 1 tab Metoprolol Tartrate (Lopressor -) 25 mg PO BID [facility] Last Admin: 03/16/18 10:00 Dose: 25 mg Mirtazapine (Remeron -) 15 mg PO HS [facility] Last Admin: 03/15/18 21:50 Dose: 15 mg Morphine Sulfate (Morphine 10 Mg/5 Ml Liquid) 5 mg PO Q6H PRN PRN Reason: PAIN LEVEL 1-5 Last Admin: 03/15/18 21:49 Dose: 5 mg Vancomycin HCl (Vancomycin Oral Solution) 125 mg PO Q2D [facility] Last Admin: 03/15/18 10:21 Dose: 125 mg Laboratory Results - last 24 hr 03/15/18 03/15/18 03/15/18 12:15 12:55 14:02 WBC RBC Hgb Hct MCV MCH MCHC RDW Plt Count MPV Sodium Potassium Chloride Carbon Dioxide Anion Gap BUN Creatinine Creat Clearance w eGFR POC Glucometer 58 45 81 Random Glucose Calcium 03/15/18 03/15/18 03/15/18 16:23 16:52 17:15 WBC 6.7 RBC 2.74 L Hgb 9.2 L Hct 26.8 L D MCV 97.8 H MCH 33.4 MCHC 34.1 RDW 18.6 H Plt Count 221 MPV 9.8 Sodium 142 Potassium 4.7 Chloride 105 Carbon Dioxide 32 Anion Gap 5 L BUN 33 H Creatinine 3.6 H Creat Clearance w eGFR 12.23 POC Glucometer 80 Random Glucose 57 L Calcium 8.2 L 03/15/18 03/16/18 03/16/18 21:41 02:00 02:45 WBC RBC Hgb Hct MCV MCH MCHC RDW Plt Count MPV Sodium Potassium Chloride Carbon Dioxide Anion Gap BUN Creatinine Creat Clearance w eGFR POC Glucometer 101 58 64 Random Glucose Calcium 03/16/18 06:21 WBC RBC Hgb Hct MCV MCH MCHC RDW Plt Count MPV Sodium Potassium Chloride Carbon Dioxide Anion Gap BUN Creatinine Creat Clearance w eGFR POC Glucometer 68 Random Glucose Calcium Microbiology 02/25/18 08:55 Blood - Peripheral Venous Blood Culture - Final NO GROWTH AFTER 5 DAYS INCUBATION 02/25/18 08:40 Blood - Peripheral Venous Blood Culture - Final NO GROWTH AFTER 5 DAYS INCUBATION 02/28/18 20:00 Urine For Antigen Detection Legionella Antigen - Final 02/28/18 20:00 Urine For Antigen Detection Streptococcus pneumoniae Antigen (M - Final 02/20/18 00:04 Blood - Almaz Cath Blood Culture - Final NO GROWTH AFTER 5 DAYS INCUBATION 02/19/18 23:45 Ulcer Gram Stain - Final 02/19/18 23:45 Ulcer Wound Culture - Final Proteus Mirabilis Vr Ec Faecalis Mr S Aureus ASSESSMENT AND PLAN: 77 yo F with reportedly prolonged stay at [facility] for PNA, cdiff (requiring fecal transplant), also with failed transplant kidney in 09/2017 s/p removal/off immunosuppressants on HD, GI diverticular bleed presented to the ER after sacral wound -Sacral wound -Severe malnutrition -Depression -Hypoglycemia, from poor oral intake -Recent PNA, likely aspiration, off abx -C difficile diarrhea, s/p vanco taper -Anemia -ESRD on HD via permacath, vein mapping done Plan: Plan for PEG, surgical input for IV access as not a candidate for PICC currently. Discussed with surgery, Anesthesia, GI. Plan for right femoral access prior to PEG placement. Avoid prolonged femoral access given risk for infection. Repeat CT with no signs of OM. Local wound care, frequent turning, not candidate for wound vac. Psych input noted. Continue remeron. Ethics committe meeting on 03/13, Son Aries reports patient clearly expressing "I want to live' in her lucid states and would want PEG and aggressive measures respecting patient wishes. Son Constantin in agreement of the same. Palliative care input noted. Nutrition consult. Continue HD. Epogen per renal. Glucagon and BGM prn till PEG in place and appropriate nutrition started. DVTPPX SCDs, given recent large Diverticular bleed. Dispo plan for home dc with services after PEG placement if no concerns.
--- NOTE | 2018-03-16 11:58 | PN ---
Physical Exam: SUBJECTIVE: Patient seen and examined at bedside. Pt states she feels weak today. No other complaints. Sugars have been on the low side. Nursing has been giving juice and coffee with sugar packets. Pt tolerates somewhat. OBJECTIVE: Vital Signs Period Temp Pulse Resp BP Sys/Franco Pulse Ox Last 24 Hr 97.4 F-98.2 F 71-99 16-20 91-141/56-100 100 Gen: NAD, lying comfortably in bed, AAOx2, frail appearing with temporal wasting , thenar wasting, prominent clavicles/ribs HEENT: NCAT, EOMI Neck: no jvd Cardio: rrr, normal s1s2, no mrg appreciated Pulm: cta b/l Abd: nondistended, + bs, soft, nontender ext: 1+ pulses, no edema Laboratory Results - last 24 hr 03/15/18 03/15/18 03/15/18 12:15 12:55 14:02 WBC RBC Hgb Hct MCV MCH MCHC RDW Plt Count MPV Sodium Potassium Chloride Carbon Dioxide Anion Gap BUN Creatinine Creat Clearance w eGFR POC Glucometer 58 45 81 Random Glucose Calcium 03/15/18 03/15/18 03/15/18 16:23 16:52 17:15 WBC 6.7 RBC 2.74 L Hgb 9.2 L Hct 26.8 L D MCV 97.8 H MCH 33.4 MCHC 34.1 RDW 18.6 H Plt Count 221 MPV 9.8 Sodium 142 Potassium 4.7 Chloride 105 Carbon Dioxide 32 Anion Gap 5 L BUN 33 H Creatinine 3.6 H Creat Clearance w eGFR 12.23 POC Glucometer 80 Random Glucose 57 L Calcium 8.2 L 03/15/18 03/16/18 03/16/18 21:41 02:00 02:45 WBC RBC Hgb Hct MCV MCH MCHC RDW Plt Count MPV Sodium Potassium Chloride Carbon Dioxide Anion Gap BUN Creatinine Creat Clearance w eGFR POC Glucometer 101 58 64 Random Glucose Calcium 03/16/18 06:21 WBC RBC Hgb Hct MCV MCH MCHC RDW Plt Count MPV Sodium Potassium Chloride Carbon Dioxide Anion Gap BUN Creatinine Creat Clearance w eGFR POC Glucometer 68 Random Glucose Calcium Active Medications Generic Name Dose Route Start Last Admin Trade Name Freq PRN Reason Stop Dose Admin Acetaminophen 650 mg 02/20/18 22:37 03/16/18 10:01 Tylenol - PO 650 mg Q6H PRN Administration FEVER Amino Acids 30 ml 02/27/18 22:00 03/16/18 06:26 Prosource No Carb Liquid Pkt PO Not Given TID [facility] Amlodipine Besylate 10 mg 02/20/18 13:03 03/16/18 10:02 Norvasc - PO 10 mg DAILY [facility] Administration Collagenase 1 applic 02/20/18 10:00 03/16/18 10:04 Santyl - TP 1 applic DAILY [facility] Administration Protocol Emollient Ointment 1 applic 03/02/18 18:00 03/16/18 10:04 Aquaphor - TP 1 applic DAILY [facility] Administration Glucagon 1 mg 03/05/18 13:52 03/15/18 13:08 Glucagon - SQ 1 mg [id number] PRN Administration HYPOGLYCEMIA Insulin Aspart 1 vial 02/24/18 09:43 03/16/18 06:23 Novolog Vial Sliding Scale - SQ Not Given ACHS [facility] Protocol Lactobacillus Acidophilus 1 tab 02/20/18 10:00 03/16/18 10:00 Bacid - PO 1 tab DAILY [facility] Administration Metoprolol Tartrate 25 mg 02/20/18 10:00 03/16/18 10:00 Lopressor - PO 25 mg BID [facility] Administration Mirtazapine 15 mg 03/06/18 22:00 03/15/18 21:50 Remeron - PO 15 mg HS [facility] Administration Morphine Sulfate 5 mg 03/13/18 13:30 03/15/18 21:49 Morphine 10 Mg/5 Ml Liquid PO 5 mg Q6H PRN Administration PAIN LEVEL 1-5 Vancomycin HCl 125 mg 03/11/18 10:00 03/15/18 10:21 Vancomycin Oral Solution PO 125 mg Q2D [facility] Administration ASSESSMENT/PLAN: 77 yo F with reportedly prolonged stay at [facility] for PNA, cdiff (requiring fecal transplant), 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 calorie count ongoing -Pt for PEG pending IV access #Hypoglycemia, from poor oral intake -For PEG -Juice w/ sugar packets prn -Glucagon prn #Recent PNA, likely aspiration, off abx -resolved #Sacral wound -chronic -no OM on imaging #Depression -remeron #Anemia -on procrit #ESRD on HD via permacath, vein mapping done -HD yest -f/u with nephro for recs #C difficile diarrhea, s/p vanco taper -no longer having diarrhea #FEN -not on fluids -lytes wnl -poor PO intake #PPx -SCDs #Dipso -Medsurg Fernando Peter MD PGY-2 IM Visit type - Emergency Visit Emergency Visit: No - New Patient This patient is new to me today: No - Critical Care Critical Care patient: No - Discharge Referral Referred to [facility] Med P.C.: No
[2018-03-16] MEDS: morphine SULFATE 10 MG/5 ML UNIT-DOSE CUP PO PRN ×2 (14:47→22:59)
[2018-03-16] MEDS ORDERED: SENNOSIDES 8.6MG TABLET (FP) PO PRN (15:20)
[2018-03-16] MEDS ORDERED: DOCUSATE NA 100 MG/10 ML UNIT-DOSE CUPS PO PRN (15:21)
--- NOTE | 2018-03-16 18:03 | CONSULT ---
Consult - Past Medical History Cardio/Vascular: Yes: HTN, Hyperlipdemia Renal/: Yes: Renal Failure, Renal Inusuff, Hemodialysis ...: No Infectious Disease: Yes: C-Diff, Other (ecoli esbl wound infection) Endocrine: Yes: Diabetes Mellitus - Past Surgical History Past Surgical History: Yes: Kidney Transplant Additional Surgical History: removal of kidney transplant - Alcohol/Substance Use Hx Alcohol Use: No - Smoking History Smoking history: Unknown if ever smoked Have you smoked in the past 12 months: No - Social History Usual Living Arrangement: With Significant Other ADL: Family Assistance History of Recent Travel: No Home Medications - Allergies Allergies/Adverse Reactions: Allergies Allergy/AdvReac Type Severity Reaction Status Date / Time No Known Allergies Allergy Verified 02/18/18 21:53 - Home Medications Home Medications: Ambulatory Orders Lactobacillus Acidophilus [Bacid -] 1 tab PO DAILY #30 tab 02/11/18 Metoprolol Tartrate [Lopressor -] 25 mg PO BID #60 tablet 02/11/18 Vancomycin Oral Solution 125 mg PO Q6HPO #100 ml 02/11/18 Amlodipine Besylate [Norvasc -] 5 mg PO DAILY #30 tablet 02/16/18 Miscellaneous Medical Supply [Glucometer Device] 1 each SQ ASDIR #1 kit Miscellaneous Medical Supply [Glucometer Test Strips #50] 1 each SQ ASDIR #1 box 02/16/18 Miscellaneous Medical Supply [Lancets] 1 each SQ ASDIR #1 box 02/16/18 Miscellaneous Medical Supply [Outpatient Order] 1 each MC ASDIR #1 misc Amino Acids/Protein Hydrolys [Prosource No Carb Liquid Pkt] 30 ml PO BID #10 liquid.pkt 02/22/18 Amino Acids/Protein Hydrolys [Prosource No Carb Liquid Pkt] 30 ml PO BID #30 liquid.pkt 02/22/18 Amlodipine Besylate [Norvasc -] 10 mg PO DAILY #30 tablet 02/22/18 Collagenase Clostridium Hist. [Santyl] 1 bottle TP DAILY #5 oint...g. 02/22/18 Gauze Bandage [Gauze] 1 box TP DAILY #5 bandage 02/22/18 Gauze Bandage [Gauze] 1 each TP DAILY #30 bandage 02/22/18 Nut.tx.imp.renal Fxn,Lac-Reduc [Nepro Carb Steady] 237 ml PO DAILY #30 liquid Nut.tx.imp.renal Fxn,Lac-Reduc [Nepro Carb Steady] 237 ml PO DAILY #30 liquid Physical Exam Vital Signs: Vital Signs Temperature 98.2 F 03/16/18 16:30 Pulse Rate 71 03/16/18 16:30 Respiratory Rate 16 03/16/18 16:30 Blood Pressure 126/60 03/16/18 16:30 O2 Sat by Pulse Oximetry (%) 100 03/16/18 09:00 Labs: CBC, BMP 03/15/18 17:15 03/15/18 16:52
--- NOTE | 2018-03-16 19:38 | PROC ---
Central Line Insertion Indication: Poor Venous Access Risks and Benefits Explained: Yes Consent on Chart: Yes Central Line: Triple Lumen Catheter Anesthesia: 1% Lidocaine Sterile Technique: Yes Ultrasound Guided Assistance: Yes Position: Right Femoral Post Insertion: Yes: Other (right pelvic xray ordered) Sterile Dressing Applied: Yes
[2018-03-16] MEDS ORDERED: PT OWN MED DRAWER 7, Y5N ONE (21:13)
[2018-03-16] MEDS: MIRTAZAPINE 15 MG TABLET (FP) PO SCH (22:52)
[2018-03-17] MEDS ORDERED: MORPHINE SULFATE 2 MG/ML VIAL IVPUSH ONE (01:45)
[2018-03-17] MEDS: AMINO ACIDS/PROTEIN HYDROLYS 30 ML LIQUID.PKT PO SCH ×3 (06:54→23:00)
[2018-03-17] MEDS: INSULIN SLIDING SCALE (NOVOLOG) 1 VIAL SQ SCH ×4 (06:58→22:59)
[2018-03-17] MEDS: VANCOMYCIN 250 MG/5 ML ORAL SOLUTION PO SCH (10:04)
[2018-03-17] MEDS: amLODIPine BESYLATE 10 MG TABLET (FP) PO SCH (10:04)
[2018-03-17] MEDS: LACTOBACILLUS ACIDOPHILUS 1 TABLET PO SCH (10:04)
[2018-03-17] MEDS: METOPROLOL TARTRATE 25 MG TABLET (FP) PO SCH ×2 (10:05→22:58)
[2018-03-17] MEDS: MINERAL OIL/PET HY-PHL TOPICAL OINTMENT 454 GM JAR TP SCH (10:06)
[2018-03-17] MEDS: COLLAGENASE CLOSTRIDIUM HIST. 30 GRAMS TUBE TP SCH (10:06)
[2018-03-17] MEDS: morphine SULFATE 10 MG/5 ML UNIT-DOSE CUP PO PRN ×2 (12:18→22:58)
--- NOTE | 2018-03-17 14:49 | PN ---
Physical Exam: SUBJECTIVE: Patient seen and examined, pleasant, does not feel like eating currently, no complaints.Reports feeling tired. OBJECTIVE: Vital Signs Period Temp Pulse Resp BP Sys/Franco Pulse Ox Last 24 Hr 97.4 F-98.2 F 69-96 16-20 126-154/52-75 99-100 GENERAL: awake, co-operative, no acute distress, cachectic female in bed Chest: Decreased effort, no rales or wheezing Abdomen:Soft, NT, Right groin femoral line in place Extremities: cachectic, heel dressings, no edema Laboratory Results - last 24 hr 03/16/18 03/16/18 03/16/18 16:28 18:38 22:51 POC Glucometer 103 104 124 03/17/18 03/17/18 03/17/18 03:15 06:49 11:37 POC Glucometer 126 71 172 Active Medications Generic Name Dose Route Start Last Admin Trade Name Freq PRN Reason Stop Dose Admin Acetaminophen 650 mg 02/20/18 22:37 03/16/18 10:01 Tylenol - PO 650 mg Q6H PRN Administration FEVER Amino Acids 30 ml 02/27/18 22:00 03/17/18 13:43 Prosource No Carb Liquid Pkt PO 30 ml TID [facility] Administration Amlodipine Besylate 10 mg 02/20/18 13:03 03/17/18 10:04 Norvasc - PO 10 mg DAILY [facility] Administration Collagenase 1 applic 02/20/18 10:00 03/17/18 10:06 Santyl - TP 1 applic DAILY [facility] Administration Protocol Docusate Sodium 100 mg 03/16/18 15:21 Colace Liquid - PO DAILY PRN CONSTIPATION Emollient Ointment 1 applic 03/02/18 18:00 03/17/18 10:06 Aquaphor - TP 1 applic DAILY [facility] Administration Glucagon 1 mg 03/05/18 13:52 03/15/18 13:08 Glucagon - SQ 1 mg [id number] PRN Administration HYPOGLYCEMIA Dextrose 1,000 mls @ 42 mls/hr 03/18/18 00:01 D5w - IV .[id number] [facility] Insulin Aspart 1 vial 02/24/18 09:43 03/17/18 11:44 Novolog Vial Sliding Scale - SQ Not Given ACHS [facility] Protocol Lactobacillus Acidophilus 1 tab 02/20/18 10:00 03/17/18 10:04 Bacid - PO 1 tab DAILY [facility] Administration Metoprolol Tartrate 25 mg 02/20/18 10:00 03/17/18 10:05 Lopressor - PO 25 mg BID [facility] Administration Mirtazapine 15 mg 03/06/18 22:00 03/16/18 22:52 Remeron - PO 15 mg HS [facility] Administration Morphine Sulfate 5 mg 03/16/18 13:58 03/17/18 12:18 Morphine 10 Mg/5 Ml Liquid PO 5 mg Q6H PRN Administration PAIN LEVEL 1-5 Senna 2 tab 03/16/18 15:20 Senna - PO HS PRN CONSTIPATION Vancomycin HCl 125 mg 03/11/18 10:00 03/17/18 10:04 Vancomycin Oral Solution PO 125 mg Q2D [facility] Administration ASSESSMENT/PLAN: 77 yo F with reportedly prolonged stay at [facility] for PNA, cdiff (requiring fecal transplant), 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 NPO after midnight for PEG tomorrow. D5W KVO to start at midnight today ( discussed with nursing) Repeat CT with no signs of OM. Local wound care, frequent turning, not candidate for wound vac. Psych input noted. Continue remeron. Ethics committe meeting on 03/13, Son Aries reports patient clearly expressing "I want to live' in her lucid states and would want PEG and aggressive measures respecting patient wishes. Marvel Killian in agreement of the same. Palliative care input noted. Nutrition consult. Continue HD. Epogen per renal. Glucagon and BGM prn till PEG in place and appropriate nutrition started. DVTPPX SCDs, given recent large Diverticular bleed. Dispo plan for home dc with services after PEG placement if no concerns. Plan discussed with nursing in detail, all questions answered. Visit type - Emergency Visit Emergency Visit: Yes ED Registration Date: 02/27/18 Care time: The patient presented to the Emergency Department on the above date and was hospitalized for further evaluation of their emergent condition. - New Patient This patient is new to me today: No - Critical Care Critical Care patient: No - Discharge Referral Referred to [facility] Med P.C.: No
[2018-03-17] MEDS ORDERED: PT OWN MED DRAWER 7, Y5N ONE (20:26)
[2018-03-17] MEDS: MIRTAZAPINE 15 MG TABLET (FP) PO SCH (22:58)
[2018-03-18] MEDS ORDERED: DEXTROSE 5%-WATER - 1,000 ML IV SCH ×2 (00:01→15:12)
[2018-03-18] MEDS: AMINO ACIDS/PROTEIN HYDROLYS 30 ML LIQUID.PKT PO SCH ×3 (06:07→22:31)
[2018-03-18] MEDS: INSULIN SLIDING SCALE (NOVOLOG) 1 VIAL SQ SCH ×4 (06:07→22:32)
[2018-03-18 06:42] LABS: BASO % 1.1 % (0-2.0); EOS % 3.6 % (0-4.5); HEMATOCRIT 27.3 % (32.4-45.2); HEMOGLOBIN 9.3 GM/dL (10.7-15.3); MCH 33.1 pg (25.7-33.7); MEAN CELL VOLUME 97.5 fl (80-96); MEAN PLT VOLUME 9.8 fl (7.5-11.1); MONO % 10.2 % (3.8-10.2); NEUT % 47.1 % (42.8-82.8); PLATELET COUNT 209 K/MM3 (134-434); RDW 17.9 % (11.6-15.6); WHITE BLOOD COUNT 3.9 K/mm3 (4.0-10.0)
[2018-03-18 07:40] LABS: ANION GAP 7 MMOL/L (8-16); BLOOD UREA NITROGEN 29 mg/dL (7-18); CALCIUM 8.5 mg/dL (8.5-10.1); CHLORIDE 103 mmol/L (98-107); CO2 30 mmol/L (21-32); CREATININE 3.7 mg/dL (0.55-1.3); GLUCOSE,RANDOM 68 mg/dL (74-106); PHOSPHOROUS 5.1 mg/dL (2.5-4.9); POTASSIUM 4.2 mmol/L (3.5-5.1); SODIUM 140 mmol/L (136-145)
[2018-03-18 07:47] LABS: INR 1.13 (0.83-1.09); PROTHROMBIN TIME (PATIENT) 13.3 SEC (9.7-13.0)
[2018-03-18] MEDS ORDERED: PT OWN MED DRAWER 7, Y5N ONE (09:56)
[2018-03-18] MEDS: METOPROLOL TARTRATE 25 MG TABLET (FP) PO SCH (09:59)
[2018-03-18] MEDS: COLLAGENASE CLOSTRIDIUM HIST. 30 GRAMS TUBE TP SCH (09:59)
[2018-03-18] MEDS: LACTOBACILLUS ACIDOPHILUS 1 TABLET PO SCH (09:59)
[2018-03-18] MEDS: amLODIPine BESYLATE 10 MG TABLET (FP) PO SCH (09:59)
[2018-03-18] MEDS: MINERAL OIL/PET HY-PHL TOPICAL OINTMENT 454 GM JAR TP SCH (09:59)
[2018-03-18] MEDS ORDERED: ceFAZolin SODIUM 1 GM VIAL ONE ×2 (12:33→14:47)
[2018-03-18] MEDS ORDERED: CEFAZOLIN 1 GM in DEXTROSE 5%-WATER - 50 ML IVPB ONE ×2 (13:02→14:45)
--- NOTE | 2018-03-18 13:03 | PN ---
Progress Note (short form) - Note Progress Note: EGD / PEG complete. Report placed in procedural section of physical chart and to be scanned into [employer] Problem List - Problems (1) Failure to thrive in adult Code(s): R62.7 - ADULT FAILURE TO THRIVE
[2018-03-18] MEDS: GLUCAGON 1 MG KIT SQ PRN (13:37)
--- NOTE | 2018-03-18 14:07 | PN ---
Progress Note, Physician History of Present Illness: Pt seen and examined at bedside. She is awake and alert. She had the peg tube placed. - Current Medication List Current Medications: Active Medications Acetaminophen (Tylenol -) 650 mg PO Q6H PRN PRN Reason: FEVER Last Admin: 03/16/18 10:01 Dose: 650 mg Amino Acids (Prosource No Carb Liquid Pkt) 30 ml PO TID [facility] Last Admin: 03/18/18 13:43 Dose: Not Given Amlodipine Besylate (Norvasc -) 10 mg PO DAILY [facility] Last Admin: 03/18/18 09:59 Dose: 10 mg Bacitracin (Bacitracin -) 1 applic TP BID [facility] Stop: 03/24/18 09:59 Collagenase (Santyl -) 1 applic TP DAILY [facility]; Protocol Last Admin: 03/18/18 09:59 Dose: 1 applic Docusate Sodium (Colace Liquid -) 100 mg PO DAILY PRN PRN Reason: CONSTIPATION Last Admin: 03/17/18 23:00 Dose: 100 mg Emollient Ointment (Aquaphor -) 1 applic TP DAILY [facility] Last Admin: 03/18/18 09:59 Dose: 1 applic Glucagon (Glucagon -) 1 mg SQ [id number] PRN PRN Reason: HYPOGLYCEMIA Last Admin: 03/18/18 13:37 Dose: 1 mg Dextrose (D5w -) 1,000 mls @ 42 mls/hr IV .[id number] [facility] Last Admin: 03/18/18 00:12 Dose: 42 mls/hr Insulin Aspart (Novolog Vial Sliding Scale -) 1 vial SQ ACHS [facility]; Protocol Last Admin: 03/18/18 12:13 Dose: Not Given Lactobacillus Acidophilus (Bacid -) 1 tab PO DAILY [facility] Last Admin: 03/18/18 09:59 Dose: Not Given Metoprolol Tartrate (Lopressor -) 25 mg PO BID [facility] Last Admin: 03/18/18 09:59 Dose: 25 mg Mirtazapine (Remeron -) 15 mg PO HS [facility] Last Admin: 03/17/18 22:58 Dose: 15 mg Morphine Sulfate (Morphine 10 Mg/5 Ml Liquid) 5 mg PO Q6H PRN PRN Reason: PAIN LEVEL 1-5 Last Admin: 03/17/18 22:58 Dose: 5 mg Senna (Senna -) 2 tab PO HS PRN PRN Reason: CONSTIPATION - Objective Vital Signs: Vital Signs Temperature 97.4 F L 03/18/18 13:45 Pulse Rate 69 03/18/18 13:45 Respiratory Rate 16 03/18/18 13:45 Blood Pressure 124/66 03/18/18 13:45 O2 Sat by Pulse Oximetry (%) 98 03/18/18 13:45 Constitutional: Yes: Calm Eyes: Yes: Conjunctiva Clear HENT: Yes: Atraumatic Cardiovascular: Yes: S1, S2 Respiratory: Yes: CTA Bilaterally Gastrointestinal: Yes: Other (dressing in place) Musculoskeletal: Yes: Muscle Weakness Edema: No Neurological: Yes: Confusion Labs: CBC, BMP 03/18/18 06:00 03/18/18 06:00 INR, PTT INR 1.13 (0.83-1.09) H 03/18/18 06:00 Problem List - Problems (1) ESRD (end stage renal disease) on dialysis Code(s): N18.6 - END STAGE RENAL DISEASE; Z99.2 - DEPENDENCE ON RENAL DIALYSIS (2) Sacral decubitus ulcer Code(s): L89.159 - PRESSURE ULCER OF SACRAL REGION, UNSPECIFIED STAGE Qualifiers: Pressure injury stage: stage 4 Qualified Code(s): L89.154 - Pressure ulcer of sacral region, stage 4 Assessment/Plan Current Medications Generic Name Dose Route Start Last Admin Trade Name Freq PRN Reason Stop Dose Admin Acetaminophen 650 mg 02/20/18 22:37 03/16/18 10:01 Tylenol - PO 650 mg Q6H PRN Administration FEVER Amino Acids 30 ml 02/27/18 22:00 03/18/18 13:43 Prosource No Carb Liquid Pkt PO Not Given TID [facility] Amlodipine Besylate 10 mg 02/20/18 13:03 03/18/18 09:59 Norvasc - PO 10 mg DAILY [facility] Administration Bacitracin 1 applic 03/19/18 10:00 Bacitracin - TP 03/24/18 09:59 BID [facility] Collagenase 1 applic 02/20/18 10:00 03/18/18 09:59 Santyl - TP 1 applic DAILY [facility] Administration Protocol Docusate Sodium 100 mg 03/16/18 15:21 03/17/18 23:00 Colace Liquid - PO 100 mg DAILY PRN Administration CONSTIPATION Emollient Ointment 1 applic 03/02/18 18:00 03/18/18 09:59 Aquaphor - TP 1 applic DAILY [facility] Administration Epoetin Abe 10,000 unit 03/18/18 14:04 Epogen - IVPUSH 03/18/18 14:05 ONCE ONE Glucagon 1 mg 03/05/18 13:52 03/18/18 13:37 Glucagon - SQ 1 mg [id number] PRN Administration HYPOGLYCEMIA Dextrose 1,000 mls @ 42 mls/hr 03/18/18 00:01 03/18/18 00:12 D5w - IV 42 mls/hr .[id number] [facility] Administration Sodium Chloride 250 mls @ 3,000 mls/hr 03/18/18 14:04 Normal Saline - IV 03/19/18 14:04 PRN PRN Hypotension during Dialysis Insulin Aspart 1 vial 02/24/18 09:43 03/18/18 12:13 Novolog Vial Sliding Scale - SQ Not Given ACHS [facility] Protocol Lactobacillus Acidophilus 1 tab 02/20/18 10:00 03/18/18 09:59 Bacid - PO Not Given DAILY [facility] Metoprolol Tartrate 25 mg 02/20/18 10:00 03/18/18 09:59 Lopressor - PO 25 mg BID [facility] Administration Mirtazapine 15 mg 03/06/18 22:00 03/17/18 22:58 Remeron - PO 15 mg HS [facility] Administration Morphine Sulfate 5 mg 03/16/18 13:58 03/17/18 22:58 Morphine 10 Mg/5 Ml Liquid PO 5 mg Q6H PRN Administration PAIN LEVEL 1-5 Senna 2 tab 03/16/18 15:20 Senna - PO HS PRN CONSTIPATION Impression 1. ESRD 2. failed kidney transplant 3. hx DM 4. Hx HTN 5. sacral ulcer 6. post op infection 7. c.diff 8. a-fib 9. failure to thrive 10.malnutrition 11. anemia 12. GI bleed 13. PNA Plan - will arrange for HD today - pt is s/p peg tube - epogen for anemia - feeds per GI recommendations, start slow and monitor for refeeding - will follow Dr Winters
[2018-03-18] MEDS ORDERED: SODIUM CHLORIDE 250 ML IV PRN (14:29)
[2018-03-18] MEDS ORDERED: EPOETIN ALFA 10,000 UNIT/1 ML VIAL IVPUSH ONE (14:30)
--- NOTE | 2018-03-18 14:45 | PN ---
Teaching Attending Note Name of Resident: Fernando Ricci ATTENDING PHYSICIAN STATEMENT I saw and evaluated the patient. I reviewed the resident's note and discussed the case with the resident. I agree with the resident's findings and plan as documented with exceptions below. SUBJECTIVE: Patient seen and examined, pleasant, conversing, no complaints. OBJECTIVE: Vital Signs Period Temp Pulse Resp BP Sys/Franco Pulse Ox Last 24 Hr 97.4 F-98.6 F 62-79 15-20 111-149/55-97 96-98 Intake & Output 03/15/18 03/16/18 03/17/18 03/18/18 23:59 23:59 23:59 23:59 Intake Total 140 230 50 494 Balance 140 230 50 494 General: lying in bed in no acute distress Abdomen:soft, NT, right groin with femoral central line in place Extremities: contractures, no edema Active Medications Acetaminophen (Tylenol -) 650 mg PO Q6H PRN PRN Reason: FEVER Last Admin: 03/16/18 10:01 Dose: 650 mg Amino Acids (Prosource No Carb Liquid Pkt) 30 ml PO TID [facility] Last Admin: 03/18/18 13:43 Dose: Not Given Amlodipine Besylate (Norvasc -) 10 mg PO DAILY [facility] Last Admin: 03/18/18 09:59 Dose: 10 mg Bacitracin (Bacitracin -) 1 applic TP BID [facility] Stop: 03/24/18 09:59 Collagenase (Santyl -) 1 applic TP DAILY [facility]; Protocol Last Admin: 03/18/18 09:59 Dose: 1 applic Docusate Sodium (Colace Liquid -) 100 mg PO DAILY PRN PRN Reason: CONSTIPATION Last Admin: 03/17/18 23:00 Dose: 100 mg Emollient Ointment (Aquaphor -) 1 applic TP DAILY [facility] Last Admin: 03/18/18 09:59 Dose: 1 applic Glucagon (Glucagon -) 1 mg SQ [id number] PRN PRN Reason: HYPOGLYCEMIA Last Admin: 03/18/18 13:37 Dose: 1 mg Dextrose (D5w -) 1,000 mls @ 42 mls/hr IV .[id number] [facility] Last Admin: 03/18/18 00:12 Dose: 42 mls/hr Sodium Chloride (Normal Saline -) 250 mls @ 3,000 mls/hr IV PRN PRN PRN Reason: Hypotension during Dialysis Stop: 03/19/18 14:28 Cefazolin Sodium 1 gm/ (Dextrose) 50 mls @ 100 mls/hr IVPB ONCE ONE Stop: 03/18/18 15:14 Insulin Aspart (Novolog Vial Sliding Scale -) 1 vial SQ ACHS [facility]; Protocol Last Admin: 03/18/18 12:13 Dose: Not Given Lactobacillus Acidophilus (Bacid -) 1 tab PO DAILY [facility] Last Admin: 03/18/18 09:59 Dose: Not Given Metoprolol Tartrate (Lopressor -) 25 mg PO BID [facility] Last Admin: 03/18/18 09:59 Dose: 25 mg Mirtazapine (Remeron -) 15 mg PO HS [facility] Last Admin: 03/17/18 22:58 Dose: 15 mg Morphine Sulfate (Morphine 10 Mg/5 Ml Liquid) 5 mg PO Q6H PRN PRN Reason: PAIN LEVEL 1-5 Last Admin: 03/17/18 22:58 Dose: 5 mg Senna (Senna -) 2 tab PO HS PRN PRN Reason: CONSTIPATION Laboratory Results - last 24 hr 03/17/18 03/17/18 03/17/18 02:41 02:45 16:38 WBC RBC Hgb Hct MCV MCH MCHC RDW Plt Count MPV Absolute Neuts (auto) Neutrophils % Lymphocytes % Monocytes % Eosinophils % Basophils % Nucleated RBC % PT with INR INR Sodium Potassium Chloride Carbon Dioxide Anion Gap BUN Creatinine Creat Clearance w eGFR POC Glucometer 328 83 71 Random Glucose Calcium Phosphorus Magnesium 03/17/18 03/18/18 03/18/18 22:57 04:10 04:14 WBC RBC Hgb Hct MCV MCH MCHC RDW Plt Count MPV Absolute Neuts (auto) Neutrophils % Lymphocytes % Monocytes % Eosinophils % Basophils % Nucleated RBC % PT with INR INR Sodium Potassium Chloride Carbon Dioxide Anion Gap BUN Creatinine Creat Clearance w eGFR POC Glucometer 81 518 66 Random Glucose Calcium Phosphorus Magnesium 03/18/18 03/18/18 03/18/18 05:50 06:00 06:00 WBC 3.9 L RBC 2.80 L Hgb 9.3 L Hct 27.3 L MCV 97.5 H MCH 33.1 MCHC 34.0 RDW 17.9 H Plt Count 209 MPV 9.8 Absolute Neuts (auto) 1.9 Neutrophils % 47.1 Lymphocytes % 38.0 Monocytes % 10.2 Eosinophils % 3.6 Basophils % 1.1 Nucleated RBC % 0 PT with INR 13.30 H INR 1.13 H Sodium Potassium Chloride Carbon Dioxide Anion Gap BUN Creatinine Creat Clearance w eGFR POC Glucometer 74 Random Glucose Calcium Phosphorus Magnesium 03/18/18 03/18/18 03/18/18 06:00 13:31 13:50 WBC RBC Hgb Hct MCV MCH MCHC RDW Plt Count MPV Absolute Neuts (auto) Neutrophils % Lymphocytes % Monocytes % Eosinophils % Basophils % Nucleated RBC % PT with INR INR Sodium 140 Potassium 4.2 Chloride 103 Carbon Dioxide 30 Anion Gap 7 L BUN 29 H Creatinine 3.7 H Creat Clearance w eGFR 11.85 POC Glucometer 44 63 Random Glucose 68 L Calcium 8.5 Phosphorus 5.1 H Magnesium 2.0 03/18/18 14:22 WBC RBC Hgb Hct MCV MCH MCHC RDW Plt Count MPV Absolute Neuts (auto) Neutrophils % Lymphocytes % Monocytes % Eosinophils % Basophils % Nucleated RBC % PT with INR INR Sodium Potassium Chloride Carbon Dioxide Anion Gap BUN Creatinine Creat Clearance w eGFR POC Glucometer 92 Random Glucose Calcium Phosphorus Magnesium ASSESSMENT AND PLAN: 77 yo F with reportedly prolonged stay at [facility] for PNA, cdiff (requiring fecal transplant), 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 Discuss with nutrition about starting feeds. D/c femoral line in [address] with no signs of OM. Local wound care, frequent turning, not candidate for wound vac. Psych input noted. Continue remeron. Ethics committe meeting on 03/13, Son Aries reports patient clearly expressing "I want to live' in her lucid states and would want PEG and aggressive measures respecting patient wishes. Son Constantin in agreement of the same. Palliative care input noted. Nutrition consult. Continue HD. Epogen per renal. Glucagon and BGM prn till PEG in place and appropriate nutrition started. D5W via femoral line for now. DVTPPX SCDs, given recent large Diverticular bleed. Dispo plan for home dc with services in 24-48 hours after PEG placement if no concerns and tolerating feeds well. Plan discussed with nursing in detail, all questions answered.
[2018-03-18] MEDS ORDERED: DEXTROSE 5%-WATER - 50 ML IVPB ONE (14:47)
[2018-03-18] MEDS: ACETAMINOPHEN 325 MG TABLET (FP) PO PRN (15:20)
[2018-03-18] MEDS: morphine SULFATE 10 MG/5 ML UNIT-DOSE CUP PO PRN ×2 (16:10→23:29)
--- NOTE | 2018-03-18 19:38 | PN ---
Physical Exam: SUBJECTIVE: Patient seen and examined at bedside this am. Went for successful PEG tub placement by Gastroenterology earlier today. Will tentatively begin tube feeds tomorrow per G.I. Underwent HD today. OBJECTIVE: Vital Signs Period Temp Pulse Resp BP Sys/Franco Pulse Ox Last 24 Hr 97.4 F-98.2 F 62-82 15-20 107-149/61-98 96-98 GENERAL:Confused, Cachechtic, Somnolent. HEAD: NC/AT EYES: EOMI, Conjunctiva not injected LUNGS: Poor inspiratory effort HEART: RRR No MRG S1S2 ABDOMEN: Soft NDNT EXTREMITIES: Diffuse Muscle atrophy Laboratory Results - last 24 hr 03/17/18 03/17/18 03/17/18 02:41 02:45 22:57 WBC RBC Hgb Hct MCV MCH MCHC RDW Plt Count MPV Absolute Neuts (auto) Neutrophils % Lymphocytes % Monocytes % Eosinophils % Basophils % Nucleated RBC % PT with INR INR Sodium Potassium Chloride Carbon Dioxide Anion Gap BUN Creatinine Creat Clearance w eGFR POC Glucometer 328 83 81 Random Glucose Calcium Phosphorus Magnesium 03/18/18 03/18/18 03/18/18 04:10 04:14 05:50 WBC RBC Hgb Hct MCV MCH MCHC RDW Plt Count MPV Absolute Neuts (auto) Neutrophils % Lymphocytes % Monocytes % Eosinophils % Basophils % Nucleated RBC % PT with INR INR Sodium Potassium Chloride Carbon Dioxide Anion Gap BUN Creatinine Creat Clearance w eGFR POC Glucometer 518 66 74 Random Glucose Calcium Phosphorus Magnesium 03/18/18 03/18/18 03/18/18 06:00 06:00 06:00 WBC 3.9 L RBC 2.80 L Hgb 9.3 L Hct 27.3 L MCV 97.5 H MCH 33.1 MCHC 34.0 RDW 17.9 H Plt Count 209 MPV 9.8 Absolute Neuts (auto) 1.9 Neutrophils % 47.1 Lymphocytes % 38.0 Monocytes % 10.2 Eosinophils % 3.6 Basophils % 1.1 Nucleated RBC % 0 PT with INR 13.30 H INR 1.13 H Sodium 140 Potassium 4.2 Chloride 103 Carbon Dioxide 30 Anion Gap 7 L BUN 29 H Creatinine 3.7 H Creat Clearance w eGFR 11.85 POC Glucometer Random Glucose 68 L Calcium 8.5 Phosphorus 5.1 H Magnesium 2.0 03/18/18 03/18/18 03/18/18 13:31 13:50 14:22 WBC RBC Hgb Hct MCV MCH MCHC RDW Plt Count MPV Absolute Neuts (auto) Neutrophils % Lymphocytes % Monocytes % Eosinophils % Basophils % Nucleated RBC % PT with INR INR Sodium Potassium Chloride Carbon Dioxide Anion Gap BUN Creatinine Creat Clearance w eGFR POC Glucometer 44 63 92 Random Glucose Calcium Phosphorus Magnesium 03/18/18 16:14 WBC RBC Hgb Hct MCV MCH MCHC RDW Plt Count MPV Absolute Neuts (auto) Neutrophils % Lymphocytes % Monocytes % Eosinophils % Basophils % Nucleated RBC % PT with INR INR Sodium Potassium Chloride Carbon Dioxide Anion Gap BUN Creatinine Creat Clearance w eGFR POC Glucometer 163 Random Glucose Calcium Phosphorus Magnesium Active Medications Generic Name Dose Route Start Last Admin Trade Name Freq PRN Reason Stop Dose Admin Acetaminophen 650 mg 02/20/18 22:37 03/18/18 15:20 Tylenol - PO 650 mg Q6H PRN Administration FEVER Amino Acids 30 ml 02/27/18 22:00 03/18/18 13:43 Prosource No Carb Liquid Pkt PO Not Given TID [facility] Amlodipine Besylate 10 mg 02/20/18 13:03 03/18/18 09:59 Norvasc - PO 10 mg DAILY [facility] Administration Bacitracin 1 applic 03/19/18 10:00 Bacitracin - TP 03/24/18 09:59 BID [facility] Collagenase 1 applic 02/20/18 10:00 03/18/18 09:59 Santyl - TP 1 applic DAILY [facility] Administration Protocol Docusate Sodium 100 mg 03/16/18 15:21 03/17/18 23:00 Colace Liquid - PO 100 mg DAILY PRN Administration CONSTIPATION Emollient Ointment 1 applic 03/02/18 18:00 03/18/18 09:59 Aquaphor - TP 1 applic DAILY [facility] Administration Glucagon 1 mg 03/05/18 13:52 03/18/18 13:37 Glucagon - SQ 1 mg [id number] PRN Administration HYPOGLYCEMIA Sodium Chloride 250 mls @ 3,000 mls/hr 03/18/18 14:29 Normal Saline - IV 03/19/18 14:28 PRN PRN Hypotension during Dialysis Dextrose 1,000 mls @ 75 mls/hr 03/18/18 15:12 D5w - IV .[id number] [facility] Insulin Aspart 1 vial 02/24/18 09:43 03/18/18 16:19 Novolog Vial Sliding Scale - SQ Not Given ACHS [facility] Protocol Lactobacillus Acidophilus 1 tab 02/20/18 10:00 03/18/18 09:59 Bacid - PO Not Given DAILY [facility] Metoprolol Tartrate 25 mg 02/20/18 10:00 03/18/18 09:59 Lopressor - PO 25 mg BID [facility] Administration Mirtazapine 15 mg 03/06/18 22:00 03/17/18 22:58 Remeron - PO 15 mg HS [facility] Administration Morphine Sulfate 5 mg 03/16/18 13:58 03/18/18 16:10 Morphine 10 Mg/5 Ml Liquid PO 5 mg Q6H PRN Administration PAIN LEVEL 1-5 Senna 2 tab 03/16/18 15:20 Senna - PO HS PRN CONSTIPATION ASSESSMENT/PLAN: Patient is a 77 year old female with history of ESRD on HD Sun, Sun, Sun, s/p kidney transplant 10/08, diabetes mellitus, hypertension, Afib not on anticoagulation due to GI bleed on prior admission, recently discharged from [facility], presents for complaint of sacral ulcer, requiring wound care. #Malnutrition Femoral Line placed by Dr Galaviz Sunday. Pt subsequently underwent successful PEG tube placement earlier today, 03/18/18, with Dr Torres. Will resume feeds tomorrow pending G.I input. -Psychiatry, Dr Milligan evaluated pt 03/06/18, deemed pt not competent to give informed consent regarding her medical treatment. Pt started on Remeron 15 HS for depression and in aid in increase PO. #Stage IV sacral decubitus ulcer -Surgery--> Santyl to sacrum daily, Alleven over sacrum, Alleven over b/l heels , Offload pressure areas with frequent repositioning, 02/26/18 CT Abd/Pelvis--> No CT Evidence of osteomyelitis. #ESRD on hemodialysis -Nephrology-Dr Winters on board. HD Today 03/18/18.----> 0.5 KG WT REMOVED - Epogen per renal. #Hypoglycemia -Glucagon Q15 min SQ PRN hypoglycemia #C. Difficile infection -Vanco 125 po every 48 hours -Contact precautions #Atrial fibrillation -Lopressor 25 po bid -No AC at this time due to h/o G.I bleed on last admission. #Hypertension -Continue Norvasc 10 mg PO daily #FEN No IV fluids Monitor electrolytes Tube Feeds Tomorrow Prophylaxis No anticoagulation in light of G.I bleed on previous admission. Disposition- Possible D/C this week Visit type - Emergency Visit Emergency Visit: Yes ED Registration Date: 02/27/18 Care time: The patient presented to the Emergency Department on the above date and was hospitalized for further evaluation of their emergent condition. - New Patient This patient is new to me today: No - Critical Care Critical Care patient: No - Discharge Referral Referred to [facility] Med P.C.: No
[2018-03-18] MEDS: MIRTAZAPINE 15 MG TABLET (FP) PO SCH (22:30)
[2018-03-19] MEDS: AMINO ACIDS/PROTEIN HYDROLYS 30 ML LIQUID.PKT PO SCH ×2 (06:19→16:16)
[2018-03-19] MEDS: INSULIN SLIDING SCALE (NOVOLOG) 1 VIAL SQ SCH ×4 (06:20→22:50)
[2018-03-19 07:00] LABS: BASO % 0.3 % (0-2.0); EOS % 0.2 % (0-4.5); HEMOGLOBIN 8.5 GM/dL (10.7-15.3); LYMPH % 3.6 % (8-40); MCH 32.2 pg (25.7-33.7); MCHC 32.8 g/dl (32.0-36.0); MEAN PLT VOLUME 9.6 fl (7.5-11.1); NEUT % 93.9 % (42.8-82.8); PLATELET COUNT 167 K/MM3 (134-434); RBC 2.66 M/mm3 (3.60-5.2); RDW 17.5 % (11.6-15.6)
[2018-03-19 07:45] LABS: BLOOD UREA NITROGEN 14 mg/dL (7-18); CALCIUM 7.8 mg/dL (8.5-10.1); CHLORIDE 100 mmol/L (98-107); CO2 30 mmol/L (21-32); CREATININE 2.1 mg/dL (0.55-1.3); GLUCOSE,RANDOM 75 mg/dL (74-106); MAGNESIUM 1.5 mg/dL (1.8-2.4); PHOSPHOROUS 2.8 mg/dL (2.5-4.9); POTASSIUM 3.6 mmol/L (3.5-5.1); SODIUM 136 mmol/L (136-145)
[2018-03-19 07:46] LABS: ANION GAP 7 MMOL/L (8-16)
[2018-03-19] MEDS: morphine SULFATE 10 MG/5 ML UNIT-DOSE CUP PO PRN ×2 (08:27→18:15)
--- NOTE | 2018-03-19 08:39 | PN ---
Progress Note (short form) - Note Progress Note: Abdomen examine: Patient found laying in position Abdomen: Abdominal binder was in place. soft, non-distended, normoactive BS. G- Tube in upper abdomen @ 2cm pam at level of abdominal wall. Rotating freely. no induration/fluctuance. some tenderness st the insertion site. insertion site cleaned with betadine. OK to use PEG for feeds Follow G-Tube care instructions as outlined in procedure report Aspiration precautions Problem List - Problems (1) Failure to thrive in adult Code(s): R62.7 - ADULT FAILURE TO THRIVE
[2018-03-19] MEDS: MINERAL OIL/PET HY-PHL TOPICAL OINTMENT 454 GM JAR TP SCH (09:57)
[2018-03-19] MEDS: BACITRACIN 15 GM TUBE TOPICAL OINTMENT TP SCH ×2 (09:57→22:45)
[2018-03-19] MEDS: COLLAGENASE CLOSTRIDIUM HIST. 30 GRAMS TUBE TP SCH (09:57)
[2018-03-19 10:37] LABS: ANISOCYTOSIS 1+; MACROCYTOSIS 1+; OVALOCYTE 1+; PLATELET ESTIMATE NORMAL
[2018-03-19] MEDS: amLODIPine BESYLATE 10 MG TABLET (FP) PO SCH (11:27)
[2018-03-19] MEDS: LACTOBACILLUS ACIDOPHILUS 1 TABLET PO SCH (11:27)
[2018-03-19] MEDS: METOPROLOL TARTRATE 25 MG TABLET (FP) PO SCH (11:28)
--- NOTE | 2018-03-19 12:30 | PN ---
Teaching Attending Note Name of Resident: Fernando Ricci ATTENDING PHYSICIAN STATEMENT I saw and evaluated the patient. I reviewed the resident's note and discussed the case with the resident. I agree with the resident's findings and plan as documented. SUBJECTIVE:requested to be left alone. OBJECTIVE: Last Vital Signs Temp Pulse Resp BP Pulse Ox 97.7 F 78 20 139/80 98 03/19/18 06:00 03/19/18 06:00 03/19/18 06:00 03/19/18 06:00 03/18/18 21:00 General NAD, resting comfortable refused physical exam or for interview ASSESSMENT AND PLAN: 77 yo F with reportedly prolonged stay at [facility] for PNA, cdiff (requiring fecal transplant), 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 Sacral wound-repeat CT showing no signs of OM. cont with local wound care, frequent turning. not a candidate for wound vac. 2. Severe malnutrition- as evident by body habitus and low BMI. s/p PEG 03/18. plan to start TF today at 10cc/H for 24H and then increase by 10cc Q8H. for goal of 40cc/H, monitor for re-feeding syndrome. cont recreational feeds. as per RN consumed most of breakfast but daily caloric intake fluctuates. 3. depression-refused exam today. on remeron. continues to refuse treatment intermittently. 4. Hypoglycemia- having periods of hypoglycemia due to poor oral intake. cont BGM Q6H, D50 prn 5. PNA- likely aspiration. no peripheral access. completed abx course. monitor off abx 6. Cdiff- no more diarrhea. on vanco Q48H x1 month. contact precautions 7. Anemia- Hgb stable. no indication for transfusion. epogen 8. ESRD on HD- cont per normal schedule via permacath. vein maping completed. 9. DVT ppx- SCD. would hold pharmacolgic anticoagulation with recent large GI bleed 10. once tolerating feeds can d/c home. anticipate in 48H
[2018-03-19] MEDS ORDERED: SODIUM CHLORIDE 250 ML IV PRN (13:44)
--- NOTE | 2018-03-19 13:44 | PN ---
Progress Note, Physician History of Present Illness: Pt seen and examined at bedside. She is awake and appears comfortable. She is going to start feeds today. - Current Medication List Current Medications: Active Medications Acetaminophen (Tylenol -) 650 mg PO Q6H PRN PRN Reason: FEVER Last Admin: 03/18/18 15:20 Dose: 650 mg Amino Acids (Prosource No Carb Liquid Pkt) 30 ml PO TID [facility] Last Admin: 03/19/18 06:19 Dose: 30 ml Amlodipine Besylate (Norvasc -) 10 mg PO DAILY [facility] Last Admin: 03/19/18 11:27 Dose: 10 mg Bacitracin (Bacitracin -) 1 applic TP BID [facility] Stop: 03/24/18 09:59 Last Admin: 03/19/18 09:57 Dose: 1 applic Collagenase (Santyl -) 1 applic TP DAILY [facility]; Protocol Last Admin: 03/19/18 09:57 Dose: 1 applic Docusate Sodium (Colace Liquid -) 100 mg PO DAILY PRN PRN Reason: CONSTIPATION Last Admin: 03/17/18 23:00 Dose: 100 mg Emollient Ointment (Aquaphor -) 1 applic TP DAILY [facility] Last Admin: 03/19/18 09:57 Dose: 1 applic Glucagon (Glucagon -) 1 mg SQ [id number] PRN PRN Reason: HYPOGLYCEMIA Last Admin: 03/18/18 13:37 Dose: 1 mg Sodium Chloride (Normal Saline -) 250 mls @ 3,000 mls/hr IV PRN PRN PRN Reason: Hypotension during Dialysis Stop: 03/19/18 14:28 Dextrose (D5w -) 1,000 mls @ 75 mls/hr IV .[id number] [facility] Insulin Aspart (Novolog Vial Sliding Scale -) 1 vial SQ ACHS [facility]; Protocol Last Admin: 03/19/18 11:51 Dose: Not Given Lactobacillus Acidophilus (Bacid -) 1 tab PO DAILY [facility] Last Admin: 03/19/18 11:27 Dose: 1 tab Metoprolol Tartrate (Lopressor -) 25 mg PO BID [facility] Last Admin: 03/19/18 11:28 Dose: 25 mg Mirtazapine (Remeron -) 15 mg PO HS [facility] Last Admin: 03/18/18 22:30 Dose: 15 mg Morphine Sulfate (Morphine 10 Mg/5 Ml Liquid) 5 mg PO Q6H PRN PRN Reason: PAIN LEVEL 1-5 Last Admin: 03/19/18 08:27 Dose: 5 mg Senna (Senna -) 2 tab PO HS PRN PRN Reason: CONSTIPATION - Objective Vital Signs: Vital Signs Temperature 97.4 F L 03/19/18 10:00 Pulse Rate 69 03/19/18 10:00 Respiratory Rate 18 03/19/18 10:00 Blood Pressure 124/85 03/19/18 10:00 O2 Sat by Pulse Oximetry (%) 98 03/19/18 09:00 Constitutional: Yes: Calm, Cachectic Eyes: Yes: Conjunctiva Clear HENT: Yes: Atraumatic Cardiovascular: Yes: S1, S2 Respiratory: Yes: CTA Bilaterally Gastrointestinal: Yes: Soft, Other (peg) Genitourinary: Yes: Incontinence Musculoskeletal: Yes: Muscle Weakness Edema: No Neurological: Yes: Confusion Labs: CBC, BMP 03/19/18 06:00 03/19/18 06:00 INR, PTT INR 1.13 (0.83-1.09) H 03/18/18 06:00 Problem List - Problems (1) ESRD (end stage renal disease) on dialysis Code(s): N18.6 - END STAGE RENAL DISEASE; Z99.2 - DEPENDENCE ON RENAL DIALYSIS (2) Sacral decubitus ulcer Code(s): L89.159 - PRESSURE ULCER OF SACRAL REGION, UNSPECIFIED STAGE Qualifiers: Pressure injury stage: stage 4 Qualified Code(s): L89.154 - Pressure ulcer of sacral region, stage 4 Assessment/Plan Current Medications Generic Name Dose Route Start Last Admin Trade Name Freq PRN Reason Stop Dose Admin Acetaminophen 650 mg 02/20/18 22:37 03/18/18 15:20 Tylenol - PO 650 mg Q6H PRN Administration FEVER Amino Acids 30 ml 02/27/18 22:00 03/19/18 06:19 Prosource No Carb Liquid Pkt PO 30 ml TID [facility] Administration Amlodipine Besylate 10 mg 02/20/18 13:03 03/19/18 11:27 Norvasc - PO 10 mg DAILY [facility] Administration Bacitracin 1 applic 03/19/18 10:00 03/19/18 09:57 Bacitracin - TP 03/24/18 09:59 1 applic BID [facility] Administration Collagenase 1 applic 02/20/18 10:00 03/19/18 09:57 Santyl - TP 1 applic DAILY [facility] Administration Protocol Docusate Sodium 100 mg 03/16/18 15:21 03/17/18 23:00 Colace Liquid - PO 100 mg DAILY PRN Administration CONSTIPATION Emollient Ointment 1 applic 03/02/18 18:00 03/19/18 09:57 Aquaphor - TP 1 applic DAILY [facility] Administration Glucagon 1 mg 03/05/18 13:52 03/18/18 13:37 Glucagon - SQ 1 mg [id number] PRN Administration HYPOGLYCEMIA Sodium Chloride 250 mls @ 3,000 mls/hr 03/18/18 14:29 Normal Saline - IV 03/19/18 14:28 PRN PRN Hypotension during Dialysis Dextrose 1,000 mls @ 75 mls/hr 03/18/18 15:12 D5w - IV .[id number] [facility] Insulin Aspart 1 vial 02/24/18 09:43 03/19/18 11:51 Novolog Vial Sliding Scale - SQ Not Given ACHS [facility] Protocol Lactobacillus Acidophilus 1 tab 02/20/18 10:00 03/19/18 11:27 Bacid - PO 1 tab DAILY [facility] Administration Metoprolol Tartrate 25 mg 02/20/18 10:00 03/19/18 11:28 Lopressor - PO 25 mg BID [facility] Administration Mirtazapine 15 mg 03/06/18 22:00 03/18/18 22:30 Remeron - PO 15 mg HS [facility] Administration Morphine Sulfate 5 mg 03/16/18 13:58 03/19/18 08:27 Morphine 10 Mg/5 Ml Liquid PO 5 mg Q6H PRN Administration PAIN LEVEL 1-5 Senna 2 tab 03/16/18 15:20 Senna - PO HS PRN CONSTIPATION Impression 1. ESRD 2. failed kidney transplant 3. hx DM 4. Hx HTN 5. sacral ulcer 6. post op infection 7. c.diff 8. a-fib 9. failure to thrive 10.malnutrition 11. anemia 12. GI bleed 13. PNA Plan - decrease rate of dextrose - stop fluid once diet starts and glucose is stable - next HD in am - monitor for refeeding - epogen for anemia - will follow Dr Winters
--- NOTE | 2018-03-19 14:02 | PATH ---
Surgical Pathology Report Patient Name: RAYMUNDO MERCADO Med. Rec. #: [id number] /Age/Gender: 1940 (Age: 77) / F Account: [id number] Location: [facility] MED/SURG Taken: 03/18/2018 Received: 03/18/2018 Reported: 03/19/2018 Physicians: Alex Finn M.D. Specimen(s) Received BX ANTRUM AND BODY Clinical History Failure to thrive Postoperative diagnosis: Gastritis status post PEG Final Diagnosis ANTRUM AND BODY, BIOPSY: GASTRIC MUCOSA WITH CHRONIC GASTRITIS. IMMUNOSTAIN FOR H. PYLORI IS NEGATIVE. NEGATIVE FOR INTESTINAL METAPLASIA. Electronically Signed Regina Coyle M.D. Gross Description Received in formalin, labeled "biopsy antrum and body" are 2 spencer, irregular portions of soft tissue averaging 0.4 cm. in greatest dimension. The specimens are submitted in toto in one cassette. 03/18/201803/18/2018
--- NOTE | 2018-03-19 18:01 | PN ---
Physical Exam: SUBJECTIVE: Patient seen and examined at bedside. No acute events overnight. OBJECTIVE: Vital Signs Period Temp Pulse Resp BP Sys/Franco Pulse Ox Last 24 Hr 97.4 F-98.5 F 69-82 18-20 124-146/64-92 98-98 NAD, Resting comfortably. Pt refused physical exam today Laboratory Results - last 24 hr 03/18/18 03/19/18 03/19/18 23:27 03:44 06:00 WBC 10.0 RBC 2.66 L Hgb 8.5 L Hct 26.0 L MCV 98.0 H MCH 32.2 MCHC 32.8 RDW 17.5 H Plt Count 167 D MPV 9.6 Absolute Neuts (auto) 9.4 H Neutrophils % 93.9 H D Neutrophils % (Manual) 85.0 H Band Neutrophils % 7.0 Lymphocytes % 3.6 L D Lymphocytes % (Manual) 5.0 L Monocytes % 2.0 L D Monocytes % (Manual) 3 L Eosinophils % 0.2 D Eosinophils % (Manual) 0.0 Basophils % 0.3 Basophils % (Manual) 0.0 Myelocytes % (Man) 0 Promyelocytes % (Man) 0 Blast Cells % (Manual) 0 Nucleated RBC % 0 Metamyelocytes 0 Hypochromia 0 Platelet Estimate Normal Polychromasia 0 Poikilocytosis 0 Anisocytosis 1+ Microcytosis 0 Macrocytosis 1+ Ovalocytes 1+ Sodium Potassium Chloride Carbon Dioxide Anion Gap BUN Creatinine Creat Clearance w eGFR POC Glucometer 75 67 Random Glucose Calcium Phosphorus Magnesium 03/19/18 03/19/18 03/19/18 06:00 06:18 11:49 WBC RBC Hgb Hct MCV MCH MCHC RDW Plt Count MPV Absolute Neuts (auto) Neutrophils % Neutrophils % (Manual) Band Neutrophils % Lymphocytes % Lymphocytes % (Manual) Monocytes % Monocytes % (Manual) Eosinophils % Eosinophils % (Manual) Basophils % Basophils % (Manual) Myelocytes % (Man) Promyelocytes % (Man) Blast Cells % (Manual) Nucleated RBC % Metamyelocytes Hypochromia Platelet Estimate Polychromasia Poikilocytosis Anisocytosis Microcytosis Macrocytosis Ovalocytes Sodium 136 Potassium 3.6 Chloride 100 Carbon Dioxide 30 Anion Gap 7 L BUN 14 Creatinine 2.1 H Creat Clearance w eGFR 22.78 POC Glucometer 75 87 Random Glucose 75 Calcium 7.8 L Phosphorus 2.8 Magnesium 1.5 L 03/19/18 03/19/18 14:03 16:39 WBC RBC Hgb Hct MCV MCH MCHC RDW Plt Count MPV Absolute Neuts (auto) Neutrophils % Neutrophils % (Manual) Band Neutrophils % Lymphocytes % Lymphocytes % (Manual) Monocytes % Monocytes % (Manual) Eosinophils % Eosinophils % (Manual) Basophils % Basophils % (Manual) Myelocytes % (Man) Promyelocytes % (Man) Blast Cells % (Manual) Nucleated RBC % Metamyelocytes Hypochromia Platelet Estimate Polychromasia Poikilocytosis Anisocytosis Microcytosis Macrocytosis Ovalocytes Sodium Potassium Chloride Carbon Dioxide Anion Gap BUN Creatinine Creat Clearance w eGFR POC Glucometer 76 77 Random Glucose Calcium Phosphorus Magnesium Active Medications Generic Name Dose Route Start Last Admin Trade Name Freq PRN Reason Stop Dose Admin Acetaminophen 650 mg 02/20/18 22:37 03/18/18 15:20 Tylenol - PO 650 mg Q6H PRN Administration FEVER Amino Acids 30 ml 02/27/18 22:00 03/19/18 16:16 Prosource No Carb Liquid Pkt PO 30 ml TID [facility] Administration Amlodipine Besylate 10 mg 02/20/18 13:03 03/19/18 11:27 Norvasc - PO 10 mg DAILY [facility] Administration Bacitracin 1 applic 03/19/18 10:00 03/19/18 09:57 Bacitracin - TP 03/24/18 09:59 1 applic BID [facility] Administration Collagenase 1 applic 02/20/18 10:00 03/19/18 09:57 Santyl - TP 1 applic DAILY [facility] Administration Protocol Docusate Sodium 100 mg 03/16/18 15:21 03/17/18 23:00 Colace Liquid - PO 100 mg DAILY PRN Administration CONSTIPATION Emollient Ointment 1 applic 03/02/18 18:00 03/19/18 09:57 Aquaphor - TP 1 applic DAILY [facility] Administration Epoetin Abe 10,000 unit 03/20/18 13:44 Epogen - IVPUSH 03/20/18 13:45 ONCE ONE Glucagon 1 mg 03/05/18 13:52 03/18/18 13:37 Glucagon - SQ 1 mg [id number] PRN Administration HYPOGLYCEMIA Dextrose 1,000 mls @ 75 mls/hr 03/18/18 15:12 D5w - IV .[id number] [facility] Sodium Chloride 250 mls @ 3,000 mls/hr 03/19/18 13:44 Normal Saline - IV 03/20/18 13:44 PRN PRN Hypotension during Dialysis Insulin Aspart 1 vial 02/24/18 09:43 03/19/18 17:31 Novolog Vial Sliding Scale - SQ Not Given ACHS [facility] Protocol Lactobacillus Acidophilus 1 tab 02/20/18 10:00 03/19/18 11:27 Bacid - PO 1 tab DAILY [facility] Administration Metoprolol Tartrate 25 mg 02/20/18 10:00 03/19/18 11:28 Lopressor - PO 25 mg BID [facility] Administration Mirtazapine 15 mg 03/06/18 22:00 03/18/18 22:30 Remeron - PO 15 mg HS [facility] Administration Morphine Sulfate 5 mg 03/16/18 13:58 03/19/18 08:27 Morphine 10 Mg/5 Ml Liquid PO 5 mg Q6H PRN Administration PAIN LEVEL 1-5 Senna 2 tab 03/16/18 15:20 Senna - PO HS PRN CONSTIPATION ASSESSMENT/PLAN: Patient is a 77 year old female with history of ESRD on HD Mon, Wed, Sun, s/p kidney transplant 10/08, diabetes mellitus, hypertension, Afib not on anticoagulation due to GI bleed on prior admission, recently discharged from [facility], presents for complaint of sacral ulcer, requiring wound care. #Malnutrition PEG Tube intact, functional. Tube Feeds begun today at 10cc/H for 24H and then increase by 10cc Q8H. for goal of 40cc/H, monitor for re-feeding syndrome. -Psychiatry, Dr Milligan evaluated pt 03/06/18, deemed pt not competent to give informed consent regarding her medical treatment. Pt started on Remeron 15 HS for depression and in aid in increase PO. #Stage IV sacral decubitus ulcer -Surgery--> Santyl to sacrum daily, Alleven over sacrum, Alleven over b/l heels , Offload pressure areas with frequent repositioning, 02/26/18 CT Abd/Pelvis--> No CT Evidence of osteomyelitis. #ESRD on hemodialysis -Nephrology-Dr Winters on board. HD 03/18/18.----> 0.5 KG WT REMOVED - Epogen per renal. #Hypoglycemia -Glucagon Q15 min SQ PRN hypoglycemia #C. Difficile infection -Vanco 125 po every 48 hours -Contact precautions #Atrial fibrillation -Lopressor 25 po bid -No AC at this time due to h/o G.I bleed on last admission. #Hypertension -Continue Norvasc 10 mg PO daily #FEN No IV fluids Monitor electrolytes Tube Feeds Prophylaxis No anticoagulation in light of G.I bleed on previous admission. Disposition- Possible D/C or Sunday Visit type - Emergency Visit Emergency Visit: Yes ED Registration Date: 02/27/18 Care time: The patient presented to the Emergency Department on the above date and was hospitalized for further evaluation of their emergent condition. - New Patient This patient is new to me today: No - Critical Care Critical Care patient: No - Discharge Referral Referred to [facility] P.[facility].: No
[2018-03-19] MEDS ORDERED: GLUCAGON 1 MG KIT SQ PRN (18:24)
[2018-03-19] MEDS ORDERED: MIRTAZAPINE 15 MG TABLET (FP) GT SCH (18:26)
[2018-03-19] MEDS ORDERED: DOCUSATE NA 100 MG/10 ML UNIT-DOSE CUPS GT PRN (18:26)
[2018-03-19] MEDS ORDERED: ACETAMINOPHEN 650 MG/20.3 ML ORAL SOLUTION (CUPS) GT PRN (18:28)
[2018-03-19] MEDS ORDERED: PT OWN MED DRAWER 7, Y5N ONE (22:32)
[2018-03-19] MEDS: AMINO ACIDS/PROTEIN HYDROLYS 30 ML LIQUID.PKT GT SCH (22:44)
[2018-03-19] MEDS: morphine SULFATE 10 MG/5 ML UNIT-DOSE CUP GT PRN (22:44)
[2018-03-19] MEDS: METOPROLOL TARTRATE 25 MG TABLET (FP) GT SCH (22:50)
[2018-03-19] MEDS: MIRTAZAPINE 15 MG TABLET (FP) GT SCH (22:50)
[2018-03-20] MEDS: AMINO ACIDS/PROTEIN HYDROLYS 30 ML LIQUID.PKT GT SCH ×3 (05:43→22:01)
[2018-03-20] MEDS: INSULIN SLIDING SCALE (NOVOLOG) 1 VIAL SQ SCH ×4 (06:11→22:01)
[2018-03-20] MEDS: MINERAL OIL/PET HY-PHL TOPICAL OINTMENT 454 GM JAR TP SCH (10:43)
[2018-03-20] MEDS: BACITRACIN 15 GM TUBE TOPICAL OINTMENT TP SCH ×2 (10:43→22:00)
[2018-03-20] MEDS: amLODIPine BESYLATE 10 MG TABLET (FP) GT SCH ×2 (10:43→13:14)
[2018-03-20] MEDS: COLLAGENASE CLOSTRIDIUM HIST. 30 GRAMS TUBE TP SCH (10:44)
--- NOTE | 2018-03-20 11:03 | PN ---
Progress Note, Physician History of Present Illness: Pt seen and examined at bedside. She appears comfortable. She did vomit last night. - Current Medication List Current Medications: Active Medications Acetaminophen (Tylenol Oral Solution -) 650 mg GT Q6H PRN PRN Reason: FEVER Amino Acids (Prosource No Carb Liquid Pkt) 30 ml GT TID [facility] Last Admin: 03/20/18 05:43 Dose: 30 ml Amlodipine Besylate (Norvasc -) 10 mg GT DAILY [facility] Bacitracin (Bacitracin -) 1 applic TP BID [facility]ARP[facility] Stop: 03/24/18 09:59 Last Admin: 03/20/18 10:43 Dose: 1 applic Collagenase (Santyl -) 1 applic TP DAILY [facility]; Protocol Last Admin: 03/20/18 10:44 Dose: 1 applic Docusate Sodium (Colace Liquid -) 100 mg GT DAILY PRN PRN Reason: CONSTIPATION Emollient Ointment (Aquaphor -) 1 applic TP DAILY [facility] Last Admin: 03/20/18 10:43 Dose: 1 applic Epoetin Abe (Epogen -) 10,000 unit IVPUSH ONCE ONE Stop: 03/20/18 13:45 Glucagon (Glucagon -) 1 mg SQ [id number] PRN PRN Reason: HYPOGLYCEMIA Dextrose (D5w -) 1,000 mls @ 75 mls/hr IV .[id number] [facility] Sodium Chloride (Normal Saline -) 250 mls @ 3,000 mls/hr IV PRN PRN PRN Reason: Hypotension during Dialysis Stop: 03/20/18 13:44 Insulin Aspart (Novolog Vial Sliding Scale -) 1 vial SQ ACHS [facility]; Protocol Last Admin: 03/20/18 06:11 Dose: Not Given Lactobacillus Acidophilus (Bacid -) 1 tab GT DAILY [facility] Metoprolol Tartrate (Lopressor -) 25 mg GT BID [facility] Last Admin: 03/19/18 22:50 Dose: 25 mg Mirtazapine (Remeron -) 15 mg GT HS [facility] Last Admin: 03/19/18 22:50 Dose: 15 mg Morphine Sulfate (Morphine 10 Mg/5 Ml Liquid) 5 mg GT Q6H PRN PRN Reason: PAIN LEVEL 1-5 Last Admin: 03/19/18 22:44 Dose: 5 mg Senna (Senna -) 2 tab PO HS PRN PRN Reason: CONSTIPATION - Objective Vital Signs: Vital Signs Temperature 97.8 F 03/20/18 06:00 Pulse Rate 80 03/20/18 06:00 Respiratory Rate 22 H 03/20/18 06:00 Blood Pressure 133/80 03/20/18 06:00 O2 Sat by Pulse Oximetry (%) 96 03/19/18 21:00 Constitutional: Yes: Calm Eyes: Yes: Conjunctiva Clear HENT: Yes: Atraumatic Neck: Yes: Supple Cardiovascular: Yes: S1, S2 Respiratory: Yes: CTA Bilaterally Gastrointestinal: Yes: Soft, Other (peg) Genitourinary: Yes: Incontinence Musculoskeletal: Yes: Muscle Weakness Edema: No Neurological: Yes: Confusion Labs: CBC, BMP 03/19/18 06:00 03/19/18 06:00 INR, PTT INR 1.13 (0.83-1.09) H 03/18/18 06:00 Problem List - Problems (1) ESRD (end stage renal disease) on dialysis Code(s): N18.6 - END STAGE RENAL DISEASE; Z99.2 - DEPENDENCE ON RENAL DIALYSIS (2) Sacral decubitus ulcer Code(s): L89.159 - PRESSURE ULCER OF SACRAL REGION, UNSPECIFIED STAGE Qualifiers: Pressure injury stage: stage 4 Qualified Code(s): L89.154 - Pressure ulcer of sacral region, stage 4 Assessment/Plan Current Medications Generic Name Dose Route Start Last Admin Trade Name Freq PRN Reason Stop Dose Admin Acetaminophen 650 mg 03/19/18 18:28 Tylenol Oral Solution - GT Q6H PRN FEVER Amino Acids 30 ml 03/19/18 22:00 03/20/18 05:43 Prosource No Carb Liquid Pkt GT 30 ml TID [facility]ARPAL Administration Amlodipine Besylate 10 mg 03/19/18 18:26 Norvasc - GT DAILY [facility] Bacitracin 1 applic 03/19/18 10:00 03/20/18 10:43 Bacitracin - TP 03/24/18 09:59 1 applic BID [facility] Administration Collagenase 1 applic 02/20/18 10:00 03/20/18 10:44 Santyl - TP 1 applic DAILY [facility] Administration Protocol Docusate Sodium 100 mg 03/19/18 18:26 Colace Liquid - GT DAILY PRN CONSTIPATION Emollient Ointment 1 applic 03/02/18 18:00 03/20/18 10:43 Aquaphor - TP 1 applic DAILY [facility] Administration Epoetin Abe 10,000 unit 03/20/18 13:44 Epogen - IVPUSH 03/20/18 13:45 ONCE ONE Glucagon 1 mg 03/19/18 18:24 Glucagon - SQ [id number] PRN HYPOGLYCEMIA Dextrose 1,000 mls @ 75 mls/hr 03/18/18 15:12 D5w - IV .[id number] [facility] Sodium Chloride 250 mls @ 3,000 mls/hr 03/19/18 13:44 Normal Saline - IV 03/20/18 13:44 PRN PRN Hypotension during Dialysis Insulin Aspart 1 vial 02/24/18 09:43 03/20/18 06:11 Novolog Vial Sliding Scale - SQ Not Given ACHS [facility] Protocol Lactobacillus Acidophilus 1 tab 03/19/18 18:26 Bacid - GT DAILY [facility] Metoprolol Tartrate 25 mg 03/19/18 18:26 03/19/18 22:50 Lopressor - GT 25 mg BID [facility] Administration Mirtazapine 15 mg 03/19/18 22:00 03/19/18 22:50 Remeron - GT 15 mg HS [facility] Administration Morphine Sulfate 5 mg 03/19/18 18:26 03/19/18 22:44 Morphine 10 Mg/5 Ml Liquid GT 5 mg Q6H PRN Administration PAIN LEVEL 1-5 Senna 2 tab 03/16/18 15:20 Senna - PO HS PRN CONSTIPATION Impression 1. ESRD 2. failed kidney transplant 3. hx DM 4. Hx HTN 5. sacral ulcer 6. post op infection 7. c.diff 8. a-fib 9. failure to thrive 10.malnutrition 11. anemia 12. GI bleed 13. PNA Plan - HD today - feeds restarted, check residuals - discussed with medical team - pt off of fluids (she does not have access) - monitor for refeeding - epogen for anemia - will follow Dr Winters
[2018-03-20] MEDS: morphine SULFATE 10 MG/5 ML UNIT-DOSE CUP GT PRN (11:17)
--- NOTE | 2018-03-20 12:46 | PN ---
Teaching Attending Note Name of Resident: Fernando Ricci ATTENDING PHYSICIAN STATEMENT I saw and evaluated the patient. I reviewed the resident's note and discussed the case with the resident. I agree with the resident's findings and plan as documented. SUBJECTIVE:asymptomatic as per RN pt vomited last night and noted to have 80cc residual in PEG and TF were stopped OBJECTIVE: Last Vital Signs Temp Pulse Resp BP Pulse Ox 97.8 F 76 20 125/79 94 L 03/20/18 06:00 03/20/18 11:03/20/18 11:03/20/18 11:03/20/18 09:00 General NAD, resting comfortable CV S1 S2 RRR no murmur/rub/gallop Lungs CTA B/L no wheezing/rales/rhonchi Abdomen soft NT/ND +PEG in LUQ no drainage or erythema, hypoactive BS ASSESSMENT AND PLAN: 77 yo F with reportedly prolonged stay at [facility] for PNA, cdiff (requiring fecal transplant), 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 Sacral wound-repeat CT showing no signs of OM. cont with local wound care, frequent turning. not a candidate for wound vac. 2. Severe malnutrition- as evident by body habitus and low BMI. s/p PEG 03/18. some nausea last night however not having high residuals. abdomen is soft. will re-start TF at 10cc/H and go up slowly as tolerated. will need to confirm with SW that patient will get feeding pump at home. 3. depression-refused exam today. on remeron. continues to refuse treatment intermittently. 4. Hypoglycemia- having periods of hypoglycemia due to poor oral intake. cont BGM Q6H, D50 prn 5. PNA- likely aspiration. no peripheral access. completed abx course. monitor off abx 6. Cdiff- no more diarrhea. on vanco Q48H x1 month. contact precautions 7. Anemia- Hgb stable. no indication for transfusion. epogen 8. ESRD on HD- cont per normal schedule via permacath. vein maping completed. 9. DVT ppx- SCD. would hold pharmacolgic anticoagulation with recent large GI bleed
[2018-03-20] MEDS ORDERED: morphine SULFATE 10 MG/5 ML UNIT-DOSE CUP PEG ONE (13:02)
[2018-03-20] MEDS: LACTOBACILLUS ACIDOPHILUS 1 TABLET GT SCH (13:13)
[2018-03-20] MEDS: METOPROLOL TARTRATE 25 MG TABLET (FP) GT SCH ×2 (13:13→22:01)
--- NOTE | 2018-03-20 14:41 | PN ---
Physical Exam: SUBJECTIVE: Patient seen and examined at bedside. Episodes of Emesis overnight per RN. Dialysis today. OBJECTIVE: Vital Signs Period Temp Pulse Resp BP Sys/Franco Pulse Ox Last 24 Hr 97.4 F-97.8 F 68-89 18-22 67-150/52-87 94-96 GENERAL: More Alert Responds to questions HEAD: NC/AT EYES: EOMI LUNGS: Poor inspiratory effort HEART: RRR No MRG S1S2 ABDOMEN: Soft NDNT, PEG tube in place. EXTREMITIES: Cachechtic, muscle wasting Laboratory Results - last 24 hr 03/19/18 03/19/18 03/20/18 16:39 22:43 05:37 POC Glucometer 77 74 83 03/20/18 03/20/18 11:40 14:14 POC Glucometer 82 90 Active Medications Generic Name Dose Route Start Last Admin Trade Name Freq PRN Reason Stop Dose Admin Acetaminophen 650 mg 03/19/18 18:28 Tylenol Oral Solution - GT Q6H PRN FEVER Amino Acids 30 ml 03/19/18 22:00 03/20/18 13:14 Prosource No Carb Liquid Pkt GT 30 ml TID [facility] Administration Amlodipine Besylate 10 mg 03/19/18 18:26 03/20/18 13:14 Norvasc - GT 10 mg DAILY [facility] Administration Bacitracin 1 applic 03/19/18 10:00 03/20/18 10:43 Bacitracin - TP 03/24/18 09:59 1 applic BID [facility] Administration Collagenase 1 applic 02/20/18 10:00 03/20/18 10:44 Santyl - TP 1 applic DAILY [facility] Administration Protocol Docusate Sodium 100 mg 03/19/18 18:26 Colace Liquid - GT DAILY PRN CONSTIPATION Emollient Ointment 1 applic 03/02/18 18:00 03/20/18 10:43 Aquaphor - TP 1 applic DAILY [facility] Administration Epoetin Abe 10,000 unit 03/20/18 13:44 Epogen - IVPUSH 03/20/18 13:45 ONCE ONE Glucagon 1 mg 03/19/18 18:24 Glucagon - SQ [id number] PRN HYPOGLYCEMIA Dextrose 1,000 mls @ 75 mls/hr 03/18/18 15:12 D5w - IV .[id number] [facility] Sodium Chloride 250 mls @ 3,000 mls/hr 03/19/18 13:44 Normal Saline - IV 03/20/18 13:44 PRN PRN Hypotension during Dialysis Insulin Aspart 1 vial 02/24/18 09:43 03/20/18 13:00 Novolog Vial Sliding Scale - SQ Not Given ACHS [facility] Protocol Lactobacillus Acidophilus 1 tab 03/19/18 18:26 03/20/18 13:13 Bacid - GT 1 tab DAILY [facility] Administration Metoprolol Tartrate 25 mg 03/19/18 18:26 03/20/18 13:13 Lopressor - GT 25 mg BID [facility] Administration Mirtazapine 15 mg 03/19/18 22:00 03/19/18 22:50 Remeron - GT 15 mg HS [facility] Administration Morphine Sulfate 5 mg 03/19/18 18:26 03/20/18 11:17 Morphine 10 Mg/5 Ml Liquid GT 5 mg Q6H PRN Administration PAIN LEVEL 1-5 Senna 2 tab 03/16/18 15:20 Senna - PO HS PRN CONSTIPATION ASSESSMENT/PLAN: Patient is a 77 year old female with history of ESRD on HD Sun, Sun, Sun, s/p kidney transplant 10/08, diabetes mellitus, hypertension, Afib not on anticoagulation due to GI bleed on prior admission, recently discharged from [facility], presents for complaint of sacral ulcer, requiring wound care. #Malnutrition PEG Tube intact, functional. monitor for re-feeding syndrome. Tube feeding at 5cc/hr with 10cc/hr of free water -Psychiatry, Dr Milligan evaluated pt 03/06/18, deemed pt not competent to give informed consent regarding her medical treatment. Pt started on Remeron 15 HS for depression and in aid in increase PO. #Stage IV sacral decubitus ulcer -Surgery--> Santyl to sacrum daily, Alleven over sacrum, Alleven over b/l heels , Offload pressure areas with frequent repositioning, 02/26/18 CT Abd/Pelvis--> No CT Evidence of osteomyelitis. #ESRD on hemodialysis -Nephrology-Dr Winters on board. HD 03/18/18.----> 0.5 KG WT REMOVED. HD today - Epogen per renal. #Hypoglycemia -Glucagon Q15 min SQ PRN hypoglycemia #C. Difficile infection -Vanco 125 po every 48 hours -Contact precautions #Atrial fibrillation -Lopressor 25 po bid -No AC at this time due to h/o G.I bleed on last admission. #Hypertension -Continue Norvasc 10 mg PO daily #FEN No I.V access, no fluids Monitor electrolytes Tube Feeds -tube feeding at 5cc/hr with 10cc/hr of free water Prophylaxis No anticoagulation in light of G.I bleed on previous admission. Disposition- Possible D/C Tomorrow or Sunday Visit type - Emergency Visit Emergency Visit: Yes ED Registration Date: 02/27/18 Care time: The patient presented to the Emergency Department on the above date and was hospitalized for further evaluation of their emergent condition. - New Patient This patient is new to me today: No - Critical Care Critical Care patient: No - Discharge Referral Referred to [facility] Med P.C.: No
[2018-03-20] MEDS ORDERED: EPOETIN ALFA 10,000 UNIT/1 ML VIAL IVPUSH ONE (16:00)
[2018-03-20 17:12] LABS: HEMATOCRIT 27.8 % (32.4-45.2); HEMOGLOBIN 9.7 GM/dL (10.7-15.3); MCH 33.5 pg (25.7-33.7); MCHC 34.9 g/dl (32.0-36.0); MEAN CELL VOLUME 95.8 fl (80-96); MEAN PLT VOLUME 10.4 fl (7.5-11.1); PLATELET COUNT 205 K/MM3 (134-434); RDW 17.3 % (11.6-15.6); WHITE BLOOD COUNT 8.6 K/mm3 (4.0-10.0)
[2018-03-20 17:45] LABS: ALBUMIN 1.6 g/dl (3.4-5.0); ALK PHOS 145 U/L (45-117); ANION GAP 12 MMOL/L (8-16); BILIRUBIN,TOTAL 0.4 mg/dL (0.2-1); BLOOD UREA NITROGEN 28 mg/dL (7-18); CALCIUM 8.1 mg/dL (8.5-10.1); CHLORIDE 94 mmol/L (98-107); CO2 30 mmol/L (21-32); CREATININE 3.3 mg/dL (0.55-1.3); GLUCOSE,RANDOM 82 mg/dL (74-106); MAGNESIUM 1.6 mg/dL (1.8-2.4); PHOSPHOROUS 4.3 mg/dL (2.5-4.9); POTASSIUM 3.7 mmol/L (3.5-5.1); SGOT/AST 14 U/L (15-37); SGPT/ALT < 6 U/L (13-61); SODIUM 136 mmol/L (136-145); TOT PROT 6.9 g/dl (6.4-8.2)
[2018-03-20] MEDS ORDERED: PT OWN MED DRAWER 7, Y5N ONE (20:58)
[2018-03-20] MEDS: MIRTAZAPINE 15 MG TABLET (FP) GT SCH (22:02)
[2018-03-21] MEDS: INSULIN SLIDING SCALE (NOVOLOG) 1 VIAL SQ SCH ×4 (06:42→23:09)
[2018-03-21] MEDS: AMINO ACIDS/PROTEIN HYDROLYS 30 ML LIQUID.PKT GT SCH ×3 (06:42→23:08)
[2018-03-21] MEDS: MINERAL OIL/PET HY-PHL TOPICAL OINTMENT 454 GM JAR TP SCH (09:47)
[2018-03-21] MEDS: amLODIPine BESYLATE 10 MG TABLET (FP) GT SCH (09:48)
[2018-03-21] MEDS: LACTOBACILLUS ACIDOPHILUS 1 TABLET GT SCH (09:48)
[2018-03-21] MEDS: METOPROLOL TARTRATE 25 MG TABLET (FP) GT SCH ×2 (09:48→23:09)
[2018-03-21] MEDS: COLLAGENASE CLOSTRIDIUM HIST. 30 GRAMS TUBE TP SCH (09:49)
[2018-03-21] MEDS: BACITRACIN 15 GM TUBE TOPICAL OINTMENT TP SCH ×2 (09:49→23:10)
--- NOTE | 2018-03-21 11:57 | EKG ---
Test Reason : Blood Pressure : / mmHG Vent. Rate : 066 BPM Atrial Rate : 066 BPM P-R Int : 200 ms QRS Dur : 104 ms QT Int : 426 ms P-R-T Axes : 072 043 038 degrees QTc Int : 446 ms NORMAL SINUS RHYTHM LOW VOLTAGE QRS CANNOT RULE OUT ANTEROSEPTAL INFARCT (CITED ON OR BEFORE 15-JAN-2018) ABNORMAL ECG WHEN COMPARED WITH ECG OF 25-FEB-2018 15:09, QT HAS SHORTENED Confirmed by FRANCES ARMENDARIZ MD ([id number]) on 03/21/2018 11:57:18 AM Referred By: HYACINTH MORALES Confirmed By:FRANCES ARMENDARIZ MD
[2018-03-21] MEDS ORDERED: METOCLOPRAMIDE HCL 10 MG TABLET (FP) PO ONE (14:00)
--- NOTE | 2018-03-21 14:05 | PN ---
Physical Exam: SUBJECTIVE: Patient seen and examined at bedside. Residual at 4:00am was 25cc per RN. 100 cc residual this AM. Feeds resumed at 10cc/hr. OBJECTIVE: Vital Signs Period Temp Pulse Resp BP Sys/Franco Pulse Ox Last 24 Hr 97 F-98 F 67-97 18-20 107-151/50-97 94-96 GENERAL: Cachechtic, Somnolent HEAD: Normal with no signs of trauma. EYES: EOMI No scleral icterus, Conjunctivae clear NECK: Trachea midline, full range of motion, supple. LUNGS: Poor inspiratory effort. HEART: RRR No MRG S1S2 ABDOMEN: NDNT EXTREMITIES: diffuse muscle atrophy, Laboratory Results - last 24 hr 03/20/18 03/20/18 03/20/18 14:14 16:00 16:00 WBC 8.6 RBC 2.90 L Hgb 9.7 L Hct 27.8 L MCV 95.8 MCH 33.5 MCHC 34.9 RDW 17.3 H Plt Count 205 D MPV 10.4 Sodium 136 Potassium 3.7 Chloride 94 L Carbon Dioxide 30 Anion Gap 12 BUN 28 H Creatinine 3.3 H Creat Clearance w eGFR 13.52 POC Glucometer 90 Random Glucose 82 Calcium 8.1 L Phosphorus 4.3 Magnesium 1.6 L Total Bilirubin 0.4 AST 14 L ALT < 6 L Alkaline Phosphatase 145 H Total Protein 6.9 Albumin 1.6 L 03/20/18 03/20/18 03/21/18 16:16 22:03 06:39 WBC RBC Hgb Hct MCV MCH MCHC RDW Plt Count MPV Sodium Potassium Chloride Carbon Dioxide Anion Gap BUN Creatinine Creat Clearance w eGFR POC Glucometer 101 99 81 Random Glucose Calcium Phosphorus Magnesium Total Bilirubin AST ALT Alkaline Phosphatase Total Protein Albumin 03/21/18 11:16 WBC RBC Hgb Hct MCV MCH MCHC RDW Plt Count MPV Sodium Potassium Chloride Carbon Dioxide Anion Gap BUN Creatinine Creat Clearance w eGFR POC Glucometer 74 Random Glucose Calcium Phosphorus Magnesium Total Bilirubin AST ALT Alkaline Phosphatase Total Protein Albumin Active Medications Generic Name Dose Route Start Last Admin Trade Name Freq PRN Reason Stop Dose Admin Acetaminophen 650 mg 03/19/18 18:28 Tylenol Oral Solution - GT Q6H PRN FEVER Amino Acids 30 ml 03/19/18 22:00 03/21/18 06:42 Prosource No Carb Liquid Pkt GT 30 ml TID [facility] Administration Amlodipine Besylate 10 mg 03/19/18 18:26 03/21/18 09:48 Norvasc - GT 10 mg DAILY [facility] Administration Bacitracin 1 applic 03/19/18 10:00 03/21/18 09:49 Bacitracin - TP 03/24/18 09:59 1 applic BID [facility] Administration Collagenase 1 applic 02/20/18 10:00 03/21/18 09:49 Santyl - TP 1 applic DAILY [facility] Administration Protocol Docusate Sodium 100 mg 03/19/18 18:26 03/21/18 11:00 Colace Liquid - GT 100 mg DAILY PRN Administration CONSTIPATION Emollient Ointment 1 applic 03/02/18 18:00 03/21/18 09:47 Aquaphor - TP 1 applic DAILY [facility] Administration Glucagon 1 mg 03/19/18 18:24 Glucagon - SQ [id number] PRN HYPOGLYCEMIA Dextrose 1,000 mls @ 75 mls/hr 03/18/18 15:12 D5w - IV .[id number] [facility] Insulin Aspart 1 vial 02/24/18 09:43 03/21/18 11:21 Novolog Vial Sliding Scale - SQ Not Given ACHS [facility] Protocol Lactobacillus Acidophilus 1 tab 03/19/18 18:26 03/21/18 09:48 Bacid - GT 1 tab DAILY [facility] Administration Metoprolol Tartrate 25 mg 03/19/18 18:26 03/21/18 09:48 Lopressor - GT 25 mg BID [facility] Administration Mirtazapine 15 mg 03/19/18 22:00 03/20/18 22:02 Remeron - GT 15 mg HS [facility] Administration Morphine Sulfate 5 mg 03/19/18 18:26 03/20/18 11:17 Morphine 10 Mg/5 Ml Liquid GT 5 mg Q6H PRN Administration PAIN LEVEL 1-5 Senna 2 tab 03/16/18 15:20 Senna - PO HS PRN CONSTIPATION ASSESSMENT/PLAN: Patient is a 77 year old female with history of ESRD on HD Mon, Wed, Fri, s/p kidney transplant 10/08, diabetes mellitus, hypertension, Afib not on anticoagulation due to GI bleed on prior admission, recently discharged from [facility], presents for complaint of sacral ulcer, requiring wound care. #Malnutrition PEG Tube intact, functional. Monitor for re-feeding syndrome. 03/21/18---> Tube feeding at 5cc/hr with 10cc/hr of free water. Spoke with Kami, Email Marketing Coordinator, and Dr Wolf. Agrees with resuming tube feeds . Metoclopramide 10 mg in light of Ileus. EKG QTc today: 446 -Colace given for bowl prep. -Psychiatry, Dr Milliagn evaluated pt 03/06/18, deemed pt not competent to give informed consent regarding her medical treatment. Pt started on Remeron 15 HS for depression and in aid in increase PO. #Stage IV sacral decubitus ulcer -Surgery--> Santyl to sacrum daily, Alleven over sacrum, Alleven over b/l heels , Offload pressure areas with frequent repositioning, 02/26/18 CT Abd/Pelvis--> No CT Evidence of osteomyelitis. #ESRD on hemodialysis -Nephrology-Dr Winters on board. HD 03/20/18.----> 1.5kgs fluid removal - Epogen per renal. #Hypoglycemia -Glucagon Q15 min SQ PRN hypoglycemia #C. Difficile infection -Vanco 125 po every 48 hours -Contact precautions #Atrial fibrillation -Lopressor 25 po bid -No AC at this time due to h/o G.I bleed on last admission. #Hypertension -Continue Norvasc 10 mg PO daily #FEN No I.V access, no fluids Monitor electrolytes Tube Feeds -tube feeding at 5cc/hr with 10cc/hr of free water--> increased to 10cc/hr Prophylaxis No anticoagulation in light of G.I bleed on previous admission. Disposition- Med-Surg Visit type - Emergency Visit Emergency Visit: Yes ED Registration Date: 02/27/18 Care time: The patient presented to the Emergency Department on the above date and was hospitalized for further evaluation of their emergent condition. - New Patient This patient is new to me today: No - Critical Care Critical Care patient: No - Discharge Referral Referred to [facility] Med P.C.: No
--- NOTE | 2018-03-21 15:28 | PN ---
Teaching Attending Note Name of Resident: Fernando Ricci ATTENDING PHYSICIAN STATEMENT I saw and evaluated the patient. I reviewed the resident's note and discussed the case with the resident. I agree with the resident's findings and plan as documented. SUBJECTIVE:resting comfortable. offers no complaints pt noted to have nausea all day yesterday with vomiting. AXR done showing diffuse ileus. TF re-started at lower dose last night, No BM in several days OBJECTIVE: Last Vital Signs Temp Pulse Resp BP Pulse Ox 97 F L 67 20 127/50 L 96 03/21/18 13:55 03/21/18 13:55 03/21/18 13:55 03/21/18 13:55 03/21/18 09:00 General NAD, resting comfortable Abdomen soft NT/ND +PEG in LUQ no drainage or erythema, no BS abdominal binder in place ASSESSMENT AND PLAN: 77 yo F with reportedly prolonged stay at [facility] for PNA, cdiff (requiring fecal transplant), 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 Sacral wound-repeat CT showing no signs of OM. cont with local wound care, frequent turning. not a candidate for wound vac. 2. Severe malnutrition- as evident by body habitus and low BMI. s/p PEG 03/18. nausea due to ileus. TF started last night at 5cc/H been tolerating >12H. will increase to 10cc now and monitor closely. will increase very slowly. as per RN ate majority of lunch today as well. 3. Ileus- due to lack of GI nutrition and movement for extended period of time. now tolerating very low dose TF. consider starting motility agent. check EKG for Qtc first. 3. depression-on remeron. continues to refuse treatment intermittently. 4. Hypoglycemia- having periods of hypoglycemia due to poor oral intake. cont BGM Q6H, D50 prn 5. PNA- likely aspiration. no peripheral access. completed abx course. monitor off abx 6. Cdiff- no more diarrhea. on vanco Q48H x1 month. contact precautions 7. Anemia- Hgb stable. no indication for transfusion. epogen 8. ESRD on HD- cont per normal schedule via permacath. vein maping completed. 9. DVT ppx- SCD. would hold pharmacolgic anticoagulation with recent large GI bleed
--- NOTE | 2018-03-21 16:54 | PN ---
Progress Note, Physician History of Present Illness: Pt seen and examined at bedside. She is awake and appears comfortable. She did vomit yesterday. Her feeds are now at 10 cc per hour. - Current Medication List Current Medications: Active Medications Acetaminophen (Tylenol Oral Solution -) 650 mg GT Q6H PRN PRN Reason: FEVER Amino Acids (Prosource No Carb Liquid Pkt) 30 ml GT TID [facility] Last Admin: 03/21/18 15:12 Dose: 30 ml Amlodipine Besylate (Norvasc -) 10 mg GT DAILY [facility] Last Admin: 03/21/18 09:48 Dose: 10 mg Bacitracin (Bacitracin -) 1 applic TP BID [facility] Stop: 03/24/18 09:59 Last Admin: 03/21/18 09:49 Dose: 1 applic Collagenase (Santyl -) 1 applic TP DAILY [facility]; Protocol Last Admin: 03/21/18 09:49 Dose: 1 applic Docusate Sodium (Colace Liquid -) 100 mg GT DAILY PRN PRN Reason: CONSTIPATION Last Admin: 03/21/18 11:00 Dose: 100 mg Emollient Ointment (Aquaphor -) 1 applic TP DAILY [facility] Last Admin: 03/21/18 09:47 Dose: 1 applic Glucagon (Glucagon -) 1 mg SQ [id number] PRN PRN Reason: HYPOGLYCEMIA Dextrose (D5w -) 1,000 mls @ 75 mls/hr IV .[id number] [facility] Insulin Aspart (Novolog Vial Sliding Scale -) 1 vial SQ ACHS [facility]; Protocol Last Admin: 03/21/18 16:15 Dose: Not Given Lactobacillus Acidophilus (Bacid -) 1 tab GT DAILY [facility] Last Admin: 03/21/18 09:48 Dose: 1 tab Metoprolol Tartrate (Lopressor -) 25 mg GT BID [facility] Last Admin: 03/21/18 09:48 Dose: 25 mg Mirtazapine (Remeron -) 15 mg GT HS [facility] Last Admin: 03/20/18 22:02 Dose: 15 mg Morphine Sulfate (Morphine 10 Mg/5 Ml Liquid) 5 mg GT Q6H PRN PRN Reason: PAIN LEVEL 1-5 Last Admin: 03/20/18 11:17 Dose: 5 mg Senna (Senna -) 2 tab PO HS PRN PRN Reason: CONSTIPATION - Objective Vital Signs: Vital Signs Temperature 97 F L 03/21/18 13:55 Pulse Rate 67 03/21/18 13:55 Respiratory Rate 20 03/21/18 13:55 Blood Pressure 127/50 L 03/21/18 13:55 O2 Sat by Pulse Oximetry (%) 96 03/21/18 09:00 Constitutional: Yes: Calm Eyes: Yes: Conjunctiva Clear HENT: Yes: Atraumatic Neck: Yes: Supple Cardiovascular: Yes: S1, S2 Respiratory: Yes: CTA Bilaterally Gastrointestinal: Yes: Soft, Other (peg) Genitourinary: Yes: Incontinence Musculoskeletal: Yes: Muscle Weakness Edema: No Neurological: Yes: Confusion Labs: CBC, BMP 03/20/18 16:00 03/20/18 16:00 INR, PTT INR 1.13 (0.83-1.09) H 03/18/18 06:00 Problem List - Problems (1) ESRD (end stage renal disease) on dialysis Code(s): N18.6 - END STAGE RENAL DISEASE; Z99.2 - DEPENDENCE ON RENAL DIALYSIS (2) Sacral decubitus ulcer Code(s): L89.159 - PRESSURE ULCER OF SACRAL REGION, UNSPECIFIED STAGE Qualifiers: Qualified Code(s): L89.154 - Pressure ulcer of sacral region, stage 4 Assessment/Plan Current Medications Generic Name Dose Route Start Last Admin Trade Name Freq PRN Reason Stop Dose Admin Acetaminophen 650 mg 03/19/18 18:28 Tylenol Oral Solution - GT Q6H PRN FEVER Amino Acids 30 ml 03/19/18 22:00 03/21/18 15:12 Prosource No Carb Liquid Pkt GT 30 ml TID [facility] Administration Amlodipine Besylate 10 mg 03/19/18 18:26 03/21/18 09:48 Norvasc - GT 10 mg DAILY [facility] Administration Bacitracin 1 applic 03/19/18 10:00 03/21/18 09:49 Bacitracin - TP 03/24/18 09:59 1 applic BID [facility] Administration Collagenase 1 applic 02/20/18 10:00 03/21/18 09:49 Santyl - TP 1 applic DAILY [facility] Administration Protocol Docusate Sodium 100 mg 03/19/18 18:26 03/21/18 11:00 Colace Liquid - GT 100 mg DAILY PRN Administration CONSTIPATION Emollient Ointment 1 applic 03/02/18 18:00 03/21/18 09:47 Aquaphor - TP 1 applic DAILY [facility] Administration Glucagon 1 mg 03/19/18 18:24 Glucagon - SQ [id number] PRN HYPOGLYCEMIA Dextrose 1,000 mls @ 75 mls/hr 03/18/18 15:12 D5w - IV .[id number] [facility] Insulin Aspart 1 vial 02/24/18 09:43 03/21/18 16:15 Novolog Vial Sliding Scale - SQ Not Given ACHS [facility] Protocol Lactobacillus Acidophilus 1 tab 03/19/18 18:26 03/21/18 09:48 Bacid - GT 1 tab DAILY [facility] Administration Metoprolol Tartrate 25 mg 03/19/18 18:26 03/21/18 09:48 Lopressor - GT 25 mg BID [facility] Administration Mirtazapine 15 mg 03/19/18 22:00 03/20/18 22:02 Remeron - GT 15 mg HS [facility] Administration Morphine Sulfate 5 mg 03/19/18 18:26 03/20/18 11:17 Morphine 10 Mg/5 Ml Liquid GT 5 mg Q6H PRN Administration PAIN LEVEL 1-5 Senna 2 tab 03/16/18 15:20 Senna - PO HS PRN CONSTIPATION Impression 1. ESRD 2. failed kidney transplant 3. hx DM 4. Hx HTN 5. sacral ulcer 6. post op infection 7. c.diff 8. a-fib 9. failure to thrive 10.malnutrition 11. anemia 12. GI bleed 13. PNA Plan - HD in am - peg feeds as tolerated - monitor for refeeding - epogen for anemia - will follow Dr Winters
[2018-03-21] MEDS: MIRTAZAPINE 15 MG TABLET (FP) GT SCH (23:08)
[2018-03-22] MEDS: AMINO ACIDS/PROTEIN HYDROLYS 30 ML LIQUID.PKT GT SCH ×2 (05:53→23:01)
[2018-03-22] MEDS: INSULIN SLIDING SCALE (NOVOLOG) 1 VIAL SQ SCH ×4 (06:00→23:01)
[2018-03-22] MEDS ORDERED: PT OWN MED DRAWER 7, Y5N ONE (09:51)
[2018-03-22] MEDS: MINERAL OIL/PET HY-PHL TOPICAL OINTMENT 454 GM JAR TP SCH (11:56)
[2018-03-22] MEDS: LACTOBACILLUS ACIDOPHILUS 1 TABLET GT SCH (11:56)
[2018-03-22] MEDS: amLODIPine BESYLATE 10 MG TABLET (FP) GT SCH (11:56)
[2018-03-22] MEDS: METOPROLOL TARTRATE 25 MG TABLET (FP) GT SCH ×2 (11:56→22:52)
[2018-03-22] MEDS: COLLAGENASE CLOSTRIDIUM HIST. 30 GRAMS TUBE TP SCH (11:57)
[2018-03-22] MEDS: BACITRACIN 15 GM TUBE TOPICAL OINTMENT TP SCH ×2 (11:57→22:52)
--- NOTE | 2018-03-22 14:15 | PN ---
Progress Note, Physician History of Present Illness: Pt seen and examined at bedside. She is tolerating feeds so far. She responds to questions and is pleasant. - Current Medication List Current Medications: Active Medications Acetaminophen (Tylenol Oral Solution -) 650 mg GT Q6H PRN PRN Reason: FEVER Amino Acids (Prosource No Carb Liquid Pkt) 30 ml GT TID [facility] Last Admin: 03/22/18 05:53 Dose: 30 ml Amlodipine Besylate (Norvasc -) 10 mg GT DAILY [facility] Last Admin: 03/22/18 11:56 Dose: 10 mg Bacitracin (Bacitracin -) 1 applic TP BID [facility] Stop: 03/24/18 09:59 Last Admin: 03/22/18 11:57 Dose: 1 applic Collagenase (Santyl -) 1 applic TP DAILY [facility]; Protocol Last Admin: 03/22/18 11:57 Dose: 1 applic Docusate Sodium (Colace Liquid -) 100 mg GT DAILY PRN PRN Reason: CONSTIPATION Last Admin: 03/21/18 11:00 Dose: 100 mg Emollient Ointment (Aquaphor -) 1 applic TP DAILY [facility] Last Admin: 03/22/18 11:56 Dose: 1 applic Epoetin Abe (Epogen -) 10,000 unit IVPUSH ONCE ONE Stop: 03/22/18 16:56 Glucagon (Glucagon -) 1 mg SQ [id number] PRN PRN Reason: HYPOGLYCEMIA Dextrose (D5w -) 1,000 mls @ 75 mls/hr IV .[id number] [facility] Sodium Chloride (Normal Saline -) 250 mls @ 3,000 mls/hr IV PRN PRN PRN Reason: Hypotension during Dialysis Stop: 03/22/18 16:55 Influenza Virus Vaccine Quadrival (Flulaval Quad [id number]) 60 mcg IM .ONCE ONE Stop: 03/22/18 13:33 Insulin Aspart (Novolog Vial Sliding Scale -) 1 vial SQ ACHS [facility]; Protocol Last Admin: 03/22/18 11:58 Dose: Not Given Lactobacillus Acidophilus (Bacid -) 1 tab GT DAILY [facility] Last Admin: 03/22/18 11:56 Dose: 1 tab Metoprolol Tartrate (Lopressor -) 25 mg GT BID [facility] Last Admin: 03/22/18 11:56 Dose: 25 mg Mirtazapine (Remeron -) 15 mg GT HS [facility] Last Admin: 03/21/18 23:08 Dose: 15 mg Morphine Sulfate (Morphine 10 Mg/5 Ml Liquid) 5 mg GT Q6H PRN PRN Reason: PAIN LEVEL 1-5 Last Admin: 03/20/18 11:17 Dose: 5 mg Pneumococcal 13-Valent Conj Vacc (Prevnar 13 Syringe -) 0.5 ml IM .ONCE ONE Stop: 03/22/18 13:34 Senna (Senna -) 2 tab PO HS PRN PRN Reason: CONSTIPATION - Objective Vital Signs: Vital Signs Temperature 98.6 F 03/22/18 06:00 Pulse Rate 66 03/22/18 06:00 Respiratory Rate 20 03/22/18 06:00 Blood Pressure 120/53 L 03/22/18 06:00 O2 Sat by Pulse Oximetry (%) 96 03/21/18 21:00 Constitutional: Yes: Calm Eyes: Yes: Conjunctiva Clear HENT: Yes: Atraumatic Neck: Yes: Supple Cardiovascular: Yes: S1, S2 Respiratory: Yes: CTA Bilaterally Gastrointestinal: Yes: Other (peg) Genitourinary: Yes: Incontinence Musculoskeletal: Yes: WNL Edema: No Neurological: Yes: Oriented Labs: CBC, BMP 03/20/18 16:00 03/20/18 16:00 INR, PTT INR 1.13 (0.83-1.09) H 03/18/18 06:00 Problem List - Problems (1) ESRD (end stage renal disease) on dialysis Code(s): N18.6 - END STAGE RENAL DISEASE; Z99.2 - DEPENDENCE ON RENAL DIALYSIS (2) Sacral decubitus ulcer Code(s): L89.159 - PRESSURE ULCER OF SACRAL REGION, UNSPECIFIED STAGE Qualifiers: Pressure injury stage: stage 4 Qualified Code(s): L89.154 - Pressure ulcer of sacral region, stage 4 Assessment/Plan Current Medications Generic Name Dose Route Start Last Admin Trade Name Freq PRN Reason Stop Dose Admin Acetaminophen 650 mg 03/19/18 18:28 Tylenol Oral Solution - GT Q6H PRN FEVER Amino Acids 30 ml 03/19/18 22:00 03/22/18 05:53 Prosource No Carb Liquid Pkt GT 30 ml TID [facility] Administration Amlodipine Besylate 10 mg 03/19/18 18:26 03/22/18 11:56 Norvasc - GT 10 mg DAILY [facility] Administration Bacitracin 1 applic 03/19/18 10:00 03/22/18 11:57 Bacitracin - TP 03/24/18 09:59 1 applic BID [facility] Administration Collagenase 1 applic 02/20/18 10:00 03/22/18 11:57 Santyl - TP 1 applic DAILY [facility] Administration Protocol Docusate Sodium 100 mg 03/19/18 18:26 03/21/18 11:00 Colace Liquid - GT 100 mg DAILY PRN Administration CONSTIPATION Emollient Ointment 1 applic 03/02/18 18:00 03/22/18 11:56 Aquaphor - TP 1 applic DAILY [facility] Administration Epoetin Abe 10,000 unit 03/22/18 16:55 Epogen - IVPUSH 03/22/18 16:56 ONCE ONE Glucagon 1 mg 03/19/18 18:24 Glucagon - SQ [id number] PRN HYPOGLYCEMIA Dextrose 1,000 mls @ 75 mls/hr 03/18/18 15:12 D5w - IV .[id number] [facility] Sodium Chloride 250 mls @ 3,000 mls/hr 03/21/18 16:55 Normal Saline - IV 03/22/18 16:55 PRN PRN Hypotension during Dialysis Influenza Virus Vaccine Quadrival 60 mcg 03/22/18 13:32 Flulaval Quad [id number] IM 03/22/18 13:33 .ONCE ONE Insulin Aspart 1 vial 02/24/18 09:43 03/22/18 11:58 Novolog Vial Sliding Scale - SQ Not Given ACHS [facility] Protocol Lactobacillus Acidophilus 1 tab 03/19/18 18:26 03/22/18 11:56 Bacid - GT 1 tab DAILY [facility] Administration Metoprolol Tartrate 25 mg 03/19/18 18:26 03/22/18 11:56 Lopressor - GT 25 mg BID [facility] Administration Mirtazapine 15 mg 03/19/18 22:00 03/21/18 23:08 Remeron - GT 15 mg HS [facility] Administration Morphine Sulfate 5 mg 03/19/18 18:26 03/20/18 11:17 Morphine 10 Mg/5 Ml Liquid GT 5 mg Q6H PRN Administration PAIN LEVEL 1-5 Pneumococcal 13-Valent Conj Vacc 0.5 ml 03/22/18 13:33 Prevnar 13 Syringe - IM 03/22/18 13:34 .ONCE ONE Senna 2 tab 03/16/18 15:20 Senna - PO HS PRN CONSTIPATION Impression 1. ESRD 2. failed kidney transplant 3. hx DM 4. Hx HTN 5. sacral ulcer 6. post op infection 7. c.diff 8. a-fib 9. failure to thrive 10.malnutrition 11. anemia 12. GI bleed 13. PNA Plan - HD today - pt tolerating diet so far - monitor for refeeding - epogen for anemia - will follow Dr Winters
--- NOTE | 2018-03-22 14:43 | PN ---
Teaching Attending Note Name of Resident: Fernando Ricci ATTENDING PHYSICIAN STATEMENT I saw and evaluated the patient. I reviewed the resident's note and discussed the case with the resident. I agree with the resident's findings and plan as documented. SUBJECTIVE:asymptomatic. denies Cp, SOb, fever, chills, N/V/D, tolerating feeds. no BM OBJECTIVE: Last Vital Signs Temp Pulse Resp BP Pulse Ox 98.6 F 66 20 120/53 L 96 03/22/18 06:00 03/22/18 06:00 03/22/18 06:00 03/22/18 06:00 03/21/18 21:00 General NAD, resting comfortable Abdomen soft NT/ND +PEG in LUQ no drainage or erythema, normoactive BS abdominal binder in place ASSESSMENT AND PLAN: 77 yo F with reportedly prolonged stay at [facility] for PNA, cdiff (requiring fecal transplant), 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 Sacral wound-repeat CT showing no signs of OM. cont with local wound care, frequent turning. not a candidate for wound vac. 2. Severe malnutrition- as evident by body habitus and low BMI. s/p PEG 03/18. tolerating TF. now at 20cc/H. will cont nephro as is currently tolerating and pt is HD and would benefit this formulation unless she continues to have GI upset. goal rate 40cc/H. titrate Q8H. cont reglan Q8H. daily EKG checks. recreational feeds. 3. Ileus- due to lack of GI nutrition and movement for extended period of time. continuing to tolerate. can switch to Vital if continues to have nausea and vomiting. low residuals noted. 3. depression-on remeron. continues to refuse treatment intermittently. 4. Hypoglycemia- having periods of hypoglycemia due to poor oral intake. cont BGM Q6H, D50 prn 5. PNA- likely aspiration. no peripheral access. completed abx course. monitor off abx 6. Cdiff- no more diarrhea. on vanco Q48H x1 month. contact precautions 7. Anemia- Hgb stable. no indication for transfusion. epogen 8. ESRD on HD- cont per normal schedule via permacath. vein maping completed. 9. DVT ppx- SCD. would hold pharmacolgic anticoagulation with recent large GI bleed 10. spoke with son present at bedside. expressed once she is tolerating feeds and can confirm HD chair is available will be ready for d/c. anticipate tolerating feeds in next 24H. verbalized this to son.
[2018-03-22] MEDS ORDERED: SODIUM CHLORIDE 250 ML IV PRN (17:24)
[2018-03-22] MEDS ORDERED: EPOETIN ALFA 10,000 UNIT/1 ML VIAL IVPUSH ONE (17:45)
[2018-03-22] MEDS ORDERED: FLU VACCINE QUAD 60 MCG/0.5 ML (MDV 18-19) IM ONE (19:30)
[2018-03-22] MEDS ORDERED: PNEUMOC 13-VAL CONJ-DIP CRM/PF 0.5 ML DISP.SYRIN IM ONE (19:30)
[2018-03-22 19:46] LABS: HEMATOCRIT 26.8 % (32.4-45.2); HEMOGLOBIN 9.1 GM/dL (10.7-15.3); MCH 33.1 pg (25.7-33.7); MCHC 34.1 g/dl (32.0-36.0); MEAN PLT VOLUME 9.9 fl (7.5-11.1); PLATELET COUNT 180 K/MM3 (134-434); RBC 2.76 M/mm3 (3.60-5.2); RDW 17.8 % (11.6-15.6); WHITE BLOOD COUNT 4.7 K/mm3 (4.0-10.0)
--- NOTE | 2018-03-22 20:05 | PN ---
Physical Exam: SUBJECTIVE: Patient seen and examined at bedside. Feeding titrated to 20cc/hr with 10cc/hr fluid. No acute events overnight. OBJECTIVE: Vital Signs Period Temp Pulse Resp BP Sys/Franco Pulse Ox Last 24 Hr 98.2 F-98.7 F 66-87 18-20 95-141/53-84 96 GENERAL: Somnolent diffuse muscle wasting, cachechtic frail, confused HEAD: NC/AT EYES: EOMI NECK: Supple No JVD LUNGS: Inspiratory effort poor. HEART: RRR No MRG S1S2 ABDOMEN: NDNT EXTREMITIES: Diffuse atrophy, muscle atrophy Laboratory Results - last 24 hr 03/21/18 03/22/18 03/22/18 23:05 05:56 11:53 WBC RBC Hgb Hct MCV MCH MCHC RDW Plt Count MPV POC Glucometer 116 89 95 03/22/18 03/22/18 17:30 19:02 WBC 4.7 RBC 2.76 L Hgb 9.1 L Hct 26.8 L MCV 97.0 H MCH 33.1 MCHC 34.1 RDW 17.8 H Plt Count 180 MPV 9.9 POC Glucometer 117 Active Medications Generic Name Dose Route Start Last Admin Trade Name Freq PRN Reason Stop Dose Admin Acetaminophen 650 mg 03/19/18 18:28 Tylenol Oral Solution - GT Q6H PRN FEVER Amino Acids 30 ml 03/19/18 22:00 03/22/18 05:53 Prosource No Carb Liquid Pkt GT 30 ml TID [facility] Administration Amlodipine Besylate 10 mg 03/19/18 18:26 03/22/18 11:56 Norvasc - GT 10 mg DAILY [facility] Administration Bacitracin 1 applic 03/19/18 10:00 03/22/18 11:57 Bacitracin - TP 03/24/18 09:59 1 applic BID [facility] Administration Collagenase 1 applic 02/20/18 10:00 03/22/18 11:57 Santyl - TP 1 applic DAILY [facility] Administration Protocol Docusate Sodium 100 mg 03/19/18 18:26 03/21/18 11:00 Colace Liquid - GT 100 mg DAILY PRN Administration CONSTIPATION Emollient Ointment 1 applic 03/02/18 18:00 03/22/18 11:56 Aquaphor - TP 1 applic DAILY [facility] Administration Glucagon 1 mg 03/19/18 18:24 Glucagon - SQ [id number] PRN HYPOGLYCEMIA Dextrose 1,000 mls @ 75 mls/hr 03/18/18 15:12 D5w - IV .[id number] [facility] Insulin Aspart 1 vial 02/24/18 09:43 03/22/18 16:30 Novolog Vial Sliding Scale - SQ Not Given ACHS [facility] Protocol Lactobacillus Acidophilus 1 tab 03/19/18 18:26 03/22/18 11:56 Bacid - GT 1 tab DAILY [facility] Administration Metoprolol Tartrate 25 mg 03/19/18 18:26 03/22/18 11:56 Lopressor - GT 25 mg BID [facility] Administration Mirtazapine 15 mg 03/19/18 22:00 03/21/18 23:08 Remeron - GT 15 mg HS [facility] Administration Senna 2 tab 03/16/18 15:20 Senna - PO HS PRN CONSTIPATION ASSESSMENT/PLAN: Patient is a 77 year old female with history of ESRD on HD Mon, Wed, Sun, s/p kidney transplant 10/08, diabetes mellitus, hypertension, Afib not on anticoagulation due to GI bleed on prior admission, recently discharged from [facility], presents for complaint of sacral ulcer, requiring wound care. #Malnutrition PEG Tube intact, functional. Monitor for re-feeding syndrome. 03/21/18---> Tube feeding at 5cc/hr with 10cc/hr of free water. Spoke with Kami, Pulp Mixer, and Dr Wolf. Agrees with resuming tube feeds . Metoclopramide 10 mg in light of Ileus. EKG QTc 03/21: 446 -Colace given for bowl prep. -Feeds titrated to 20cc/hr with 10cc/hr fluid overnight. -Psychiatry, Dr Milligan evaluated pt 03/06/18, deemed pt not competent to give informed consent regarding her medical treatment. Pt started on Remeron 15 HS for depression and in aid in increase PO. #Stage IV sacral decubitus ulcer -Surgery--> Santyl to sacrum daily, Alleven over sacrum, Alleven over b/l heels , Offload pressure areas with frequent repositioning, 02/26/18 CT Abd/Pelvis--> No CT Evidence of osteomyelitis. #ESRD on hemodialysis -Nephrology-Dr Winters on board. HD today 03/22/18. Confirm HD chair placement for D/C. - Epogen per renal. #Hypoglycemia -Glucagon Q15 min SQ PRN hypoglycemia #C. Difficile infection -Vanco 125 po every 48 hours -Contact precautions #Atrial fibrillation -Lopressor 25 po bid -No AC at this time due to h/o G.I bleed on last admission. #Hypertension -Continue Norvasc 10 mg PO daily #FEN No I.V access, no fluids Monitor electrolytes Tube Feeds -tube feeding at 20cc/hr with 10cc/hr of free water Prophylaxis No anticoagulation in light of G.I bleed on previous admission. Disposition- Med-Surg Visit type - Emergency Visit Emergency Visit: Yes ED Registration Date: 02/27/18 Care time: The patient presented to the Emergency Department on the above date and was hospitalized for further evaluation of their emergent condition. - New Patient This patient is new to me today: No - Critical Care Critical Care patient: No - Discharge Referral Referred to [facility] Med P.C.: No
[2018-03-22 20:35] LABS: ALBUMIN 1.5 g/dl (3.4-5.0); ALK PHOS 153 U/L (45-117); BILIRUBIN,TOTAL 0.4 mg/dL (0.2-1); BLOOD UREA NITROGEN 19 mg/dL (7-18); CALCIUM 7.5 mg/dL (8.5-10.1); CHLORIDE 106 mmol/L (98-107); CO2 30 mmol/L (21-32); CREATININE 1.8 mg/dL (0.55-1.3); GLUCOSE,RANDOM 151 mg/dL (74-106); SGOT/AST 15 U/L (15-37); SGPT/ALT < 6 U/L (13-61); SODIUM 145 mmol/L (136-145); TOT PROT 6.4 g/dl (6.4-8.2)
[2018-03-22 20:36] LABS: ANION GAP 8 MMOL/L (8-16)
[2018-03-22 20:43] LABS: POTASSIUM 2.7 mmol/L (3.5-5.1)
[2018-03-22] MEDS ORDERED: POTASSIUM CHLORIDE ORAL LIQUID 20 MEQ/15 ML PO ONE ×2 (21:00)
[2018-03-22] MEDS: MIRTAZAPINE 15 MG TABLET (FP) GT SCH (22:52)
[2018-03-23] MEDS ORDERED: ACETAMINOPHEN 650 MG/20.3 ML ORAL SOLUTION (CUPS) GT PRN (00:12)
[2018-03-23] MEDS ORDERED: SENNOSIDES 8.6MG TABLET (FP) PO PRN ×2 (00:12→19:18)
[2018-03-23] MEDS ORDERED: DOCUSATE NA 100 MG/10 ML UNIT-DOSE CUPS GT PRN ×2 (00:12→19:18)
[2018-03-23] MEDS ORDERED: DEXTROSE 5%-WATER - 1,000 ML IV SCH (00:12)
[2018-03-23] MEDS ORDERED: GLUCAGON 1 MG KIT SQ PRN ×2 (00:12→19:18)
[2018-03-23 02:16] LABS: ANION GAP 5 MMOL/L (8-16); BLOOD UREA NITROGEN 20 mg/dL (7-18); CHLORIDE 104 mmol/L (98-107); CO2 32 mmol/L (21-32); CREATININE 2.1 mg/dL (0.55-1.3); GLUCOSE,RANDOM 86 mg/dL (74-106); POTASSIUM 3.8 mmol/L (3.5-5.1); SODIUM 140 mmol/L (136-145)
[2018-03-23] MEDS: INSULIN SLIDING SCALE (NOVOLOG) 1 VIAL SQ SCH ×4 (06:31→21:28)
--- NOTE | 2018-03-23 08:11 | PN ---
Progress Note (short form) - Note Progress Note: resting comfortable. no complaints. states she is not hungry pt was noted to be hypokalemic last night and was transferred to tele noted to have 100cc residual and tube feeds were held. now at 5cc/H Current Medications Generic Name Dose Route Start Last Admin Trade Name Freq PRN Reason Stop Dose Admin Acetaminophen 650 mg 03/23/18 00:12 Tylenol Oral Solution - GT Q6H PRN FEVER Amino Acids 30 ml 03/23/18 08:00 Prosource No Carb Liquid Pkt GT TIDCM [facility] Amlodipine Besylate 10 mg 03/23/18 10:00 Norvasc - GT DAILY [facility] Bacitracin 1 applic 03/23/18 10:00 Bacitracin - TP 03/24/18 09:59 BID [facility] Collagenase 1 applic 03/23/18 10:00 Santyl - TP DAILY [facility] Protocol Docusate Sodium 100 mg 03/23/18 00:12 Colace Liquid - GT DAILY PRN CONSTIPATION Emollient Ointment 1 applic 03/23/18 10:00 Aquaphor - TP DAILY [facility] Glucagon 1 mg 03/23/18 00:12 Glucagon - SQ Q15M PRN HYPOGLYCEMIA Insulin Aspart 1 vial 03/23/18 07:00 03/23/18 06:31 Novolog Vial Sliding Scale - SQ Not Given ACHS [facility] Protocol Lactobacillus Acidophilus 1 tab 03/23/18 10:00 Bacid - GT DAILY [facility] Metoprolol Tartrate 25 mg 03/23/18 10:00 Lopressor - GT BID [facility] Mirtazapine 15 mg 03/23/18 22:00 Remeron - GT HS [facility] Senna 2 tab 03/23/18 00:12 Senna - PO HS PRN CONSTIPATION Last Vital Signs Temp Pulse Resp BP Pulse Ox 97.5 F L 69 22 H 142/73 96 03/23/18 06:00 03/23/18 06:00 03/23/18 06:00 03/23/18 06:00 03/22/18 21:00 General NAD, resting comfortable CV S1 S2 RRR no murmur/rub/gallop Lungs CTA B/L no wheezing/rale/srhonchi Abdomen soft NT/ND +PEG in LUQ no drainage or erythema, normoactive BS abdominal binder in place CBCD WBC 4.7 K/mm3 (4.0-10.0) 03/22/18 17:30 RBC 2.76 M/mm3 (3.60-5.2) L 03/22/18 17:30 Hgb 9.1 GM/dL (10.7-15.3) L 03/22/18 17:30 Hct 26.8 % (32.4-45.2) L 03/22/18 17:30 MCV 97.0 fl (80-96) H 03/22/18 17:30 MCHC 34.1 g/dl (32.0-36.0) 03/22/18 17:30 RDW 17.8 % (11.6-15.6) H 03/22/18 17:30 Plt Count 180 K/MM3 (134-434) 03/22/18 17:30 MPV 9.9 fl (7.5-11.1) 03/22/18 17:30 CMP Sodium 140 mmol/L (136-145) 03/23/18 00:50 Potassium 3.8 mmol/L (3.5-5.1) 03/23/18 00:50 Chloride 104 mmol/L (98-107) 03/23/18 00:50 Carbon Dioxide 32 mmol/L (21-32) 03/23/18 00:50 Anion Gap 5 MMOL/L (8-16) L 03/23/18 00:50 BUN 20 mg/dL (7-18) H 03/23/18 00:50 Creatinine 2.1 mg/dL (0.55-1.3) H 03/23/18 00:50 Creat Clearance w eGFR 22.78 (>60) 03/23/18 00:50 Calcium 8.0 mg/dL (8.5-10.1) L 03/23/18 00:50 Total Bilirubin 0.4 mg/dL (0.2-1) 03/22/18 17:30 AST 15 U/L (15-37) 03/22/18 17:30 ALT < 6 U/L (13-61) L 03/22/18 17:30 Alkaline Phosphatase 153 U/L (45-117) H 03/22/18 17:30 Total Protein 6.4 g/dl (6.4-8.2) 03/22/18 17:30 Albumin 1.5 g/dl (3.4-5.0) L 03/22/18 17:30 ASSESSMENT AND PLAN: 77 yo F with reportedly prolonged stay at [facility] for PNA, cdiff (requiring fecal transplant), 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 Sacral wound-repeat CT showing no signs of OM. cont with local wound care, frequent turning. not a candidate for wound vac. 2. Severe malnutrition- as evident by body habitus and low BMI. s/p PEG 03/18. TF held last night due to high residuals. no vomiting., now re-started at 5cc/ H. will titrate up as toleratd. cont reglan Q8H. daily EKG checks. recreational feeds. 3. Ileus- due to lack of GI nutrition and movement for extended period of time. continuing to tolerate. can switch to Vital if continues to have nausea and vomiting. 4. hypokalemia- liekly due to poor intake. and was transferred to [facility] for cardiac monitoring. given Kcl po. now resolved. 5. depression-on remeron. continues to refuse treatment intermittently. 6. Hypoglycemia- having periods of hypoglycemia due to poor oral intake. cont BGM Q6H, D50 prn 7. PNA- likely aspiration. no peripheral access. completed abx course. monitor off abx 8. Cdiff- no more diarrhea. on vanco Q48H x1 month. contact precautions 9. Anemia- Hgb stable. no indication for transfusion. epogen 10. ESRD on HD- cont per normal schedule via permacath. vein maping completed. 11. DVT ppx- SCD. would hold pharmacolgic anticoagulation with recent large GI bleed 12. can d/c cardiac monitoring Visit type - Emergency Visit Emergency Visit: Yes ED Registration Date: 02/27/18 Care time: The patient presented to the Emergency Department on the above date and was hospitalized for further evaluation of their emergent condition. - New Patient This patient is new to me today: No - Critical Care Critical Care patient: No - Discharge Referral Referred to [facility] No
[2018-03-23] MEDS ORDERED: amLODIPine BESYLATE 10 MG TABLET (FP) GT SCH (10:00)
[2018-03-23] MEDS ORDERED: BACITRACIN 15 GM TUBE TOPICAL OINTMENT TP SCH ×2 (10:00→22:00)
[2018-03-23] MEDS ORDERED: COLLAGENASE CLOSTRIDIUM HIST. 30 GRAMS TUBE TP SCH (10:00)
[2018-03-23] MEDS ORDERED: MINERAL OIL/PET HY-PHL TOPICAL OINTMENT 454 GM JAR TP SCH (10:00)
[2018-03-23] MEDS ORDERED: LACTOBACILLUS ACIDOPHILUS 1 TABLET GT SCH (10:00)
[2018-03-23] MEDS ORDERED: METOPROLOL TARTRATE 25 MG TABLET (FP) GT SCH (10:00)
[2018-03-23] MEDS: AMINO ACIDS/PROTEIN HYDROLYS 30 ML LIQUID.PKT GT SCH ×5 (10:59→19:28)
--- NOTE | 2018-03-23 17:14 | EKG ---
Test Reason : Blood Pressure : / mmHG Vent. Rate : 077 BPM Atrial Rate : 077 BPM P-R Int : 184 ms QRS Dur : 100 ms QT Int : 444 ms P-R-T Axes : 053 041 100 degrees QTc Int : 502 ms NORMAL SINUS RHYTHM NONSPECIFIC T WAVE ABNORMALITY PROLONGED QT ABNORMAL ECG WHEN COMPARED WITH ECG OF 22-MAR-2018 10:02, QT HAS LENGTHENED Confirmed by MD GT, GABRIELLE ([id number]) on 03/23/2018 5:14:20 PM Referred By: Confirmed By:GABRIELLE DEL REAL MD
--- NOTE | 2018-03-23 17:23 | EKG ---
Test Reason : Blood Pressure : / mmHG Vent. Rate : 079 BPM Atrial Rate : 079 BPM P-R Int : 186 ms QRS Dur : 112 ms QT Int : 384 ms P-R-T Axes : 075 060 003 degrees QTc Int : 440 ms NORMAL SINUS RHYTHM SEPTAL INFARCT (CITED ON OR BEFORE 15-JAN-2018) ABNORMAL ECG WHEN COMPARED WITH ECG OF 21-MAR-2018 09:07, QUESTIONABLE CHANGE IN INITIAL FORCES OF SEPTAL LEADS NONSPECIFIC T WAVE ABNORMALITY NOW EVIDENT IN LATERAL LEADS Confirmed by MD GT, GABRIELLE ([id number]) on 03/23/2018 5:22:43 PM Referred By: Confirmed By:GABRIELLE DEL REAL MD
--- NOTE | 2018-03-23 21:20 | PN ---
Progress Note (short form) - Note Progress Note: 1. ESRD 2. failed kidney transplant 3. hx DM 4. Hx HTN 5. sacral ulcer 6. post op infection 7. c.diff 8. a-fib 9. failure to thrive 10.malnutrition 11. anemia 12. GI bleed 13. PNA Current Medications Acetaminophen (Tylenol Oral Solution -) 650 mg GT Q6H PRN PRN Reason: FEVER Amino Acids (Prosource No Carb Liquid Pkt) 30 ml GT TIDCM [facility] Amlodipine Besylate (Norvasc -) 10 mg GT DAILY [facility] Bacitracin (Bacitracin -) 1 applic TP BID [facility] Stop: 03/24/18 09:59 Collagenase (Santyl -) 1 applic TP DAILY [facility]; Protocol Docusate Sodium (Colace Liquid -) 100 mg GT DAILY PRN PRN Reason: CONSTIPATION Emollient Ointment (Aquaphor -) 1 applic TP DAILY [facility] Glucagon (Glucagon -) 1 mg SQ Q15M PRN PRN Reason: HYPOGLYCEMIA Insulin Aspart (Novolog Vial Sliding Scale -) 1 vial SQ ACHS [facility]; Protocol Lactobacillus Acidophilus (Bacid -) 1 tab GT DAILY [facility] Metoprolol Tartrate (Lopressor -) 25 mg GT BID [facility] Mirtazapine (Remeron -) 15 mg GT HS H[facility] Senna (Senna -) 2 tab PO HS PRN PRN Reason: CONSTIPATION Last Vital Signs Temp Pulse Resp BP Pulse Ox 97.5 F L 65 19 141/79 95 03/23/18 18:00 03/23/18 18:00 03/23/18 18:00 03/23/18 18:00 03/23/18 09:00 CBC, BMP 03/22/18 17:30 03/23/18 00:50 IMP- esrd tolerated dialysis yesterday Plan - HD sunday - pt tolerating diet so far - monitor for refeeding - epogen for anemia - will follow
[2018-03-23] MEDS: METOPROLOL TARTRATE 25 MG TABLET (FP) GT SCH (21:27)
[2018-03-23] MEDS: MIRTAZAPINE 15 MG TABLET (FP) GT SCH (21:28)
[2018-03-23] MEDS: ACETAMINOPHEN 650 MG/20.3 ML ORAL SOLUTION (CUPS) GT PRN (21:29)
[2018-03-23] MEDS ORDERED: MIRTAZAPINE 15 MG TABLET (FP) GT SCH (22:00)
[2018-03-24] MEDS: INSULIN SLIDING SCALE (NOVOLOG) 1 VIAL SQ SCH ×4 (06:04→22:28)
[2018-03-24] MEDS: MINERAL OIL/PET HY-PHL TOPICAL OINTMENT 454 GM JAR TP SCH (10:56)
[2018-03-24] MEDS: amLODIPine BESYLATE 10 MG TABLET (FP) GT SCH (10:56)
[2018-03-24] MEDS: AMINO ACIDS/PROTEIN HYDROLYS 30 ML LIQUID.PKT GT SCH ×3 (10:56→18:26)
[2018-03-24] MEDS: LACTOBACILLUS ACIDOPHILUS 1 TABLET GT SCH (10:57)
[2018-03-24] MEDS: COLLAGENASE CLOSTRIDIUM HIST. 30 GRAMS TUBE TP SCH (10:57)
[2018-03-24] MEDS: METOPROLOL TARTRATE 25 MG TABLET (FP) GT SCH ×2 (10:57→22:28)
--- NOTE | 2018-03-24 11:40 | PN ---
Physical Exam: SUBJECTIVE: Patient seen and examined at bedside. Currently tolerating tube feeds. Advancing slowly. OBJECTIVE: Vital Signs Period Temp Pulse Resp BP Sys/Franco Pulse Ox Last 24 Hr 97.5 F-98.1 F 63-70 18-20 132-146/71-79 95 Gen: cachectic with temporal wasting, prominent clavicles and ribs, thenar wasting, confused. AAO to person HEENT: NCAT, EOMI Neck: supple, no jvd, central line in place cdi Cardio: rrr, norm s1s2, no mrg appreciated Pulm: limited exam due to poor insp effort. Cta b/l Abd: binder in place. G tube cdi Ext: 2+ pulses, no edema Laboratory Results - last 24 hr 03/23/18 03/23/18 03/23/18 11:01 16:47 18:27 POC Glucometer 87 68 124 03/23/18 03/24/18 20:46 05:39 POC Glucometer 107 80 Active Medications Generic Name Dose Route Start Last Admin Trade Name Freq PRN Reason Stop Dose Admin Acetaminophen 650 mg 03/23/18 19:18 03/23/18 21:29 Tylenol Oral Solution - GT 650 mg Q6H PRN Administration FEVER Amino Acids 30 ml 03/24/18 08:00 03/24/18 10:56 Prosource No Carb Liquid Pkt GT 30 ml TIDCM [facility] Administration Amlodipine Besylate 10 mg 03/24/18 10:00 03/24/18 10:56 Norvasc - GT 10 mg DAILY H[facility] Administration Collagenase 1 applic 03/24/18 10:00 03/24/18 10:57 Santyl - TP 1 applic DAILY [facility] Administration Protocol Docusate Sodium 100 mg 03/23/18 19:18 Colace Liquid - GT DAILY PRN CONSTIPATION Emollient Ointment 1 applic 03/24/18 10:00 03/24/18 10:56 Aquaphor - TP 1 applic DAILY [facility] Administration Glucagon 1 mg 03/23/18 19:18 Glucagon - SQ Q15M PRN HYPOGLYCEMIA Insulin Aspart 1 vial 03/23/18 22:00 03/24/18 11:09 Novolog Vial Sliding Scale - SQ Not Given ACHS H[facility]AL Protocol Lactobacillus Acidophilus 1 tab 03/24/18 10:00 03/24/18 10:57 Bacid - GT 1 tab DAILY [facility] Administration Metoprolol Tartrate 25 mg 03/23/18 22:00 03/24/18 10:57 Lopressor - GT 25 mg BID H[facility] Administration Mirtazapine 15 mg 03/23/18 22:00 03/23/18 21:28 Remeron - GT 15 mg HS H[facility]AL Administration Senna 2 tab 03/23/18 19:18 Senna - PO HS PRN CONSTIPATION ASSESSMENT/PLAN: Pt is a 77 y/o F with many medical problems and recent long hospital stay at [facility] and no prolonged hospitalization at this facility. PMH sig for failed renal transplant, GIB, C. diff, PNA, chronic sacral wound for which pt presented. #Sacral wound -no OM on CT -frequent turns -local care #Malnutrition/failure to thrive -Pt often refuses PO diet for prolonged period -wasting, BMI 18 -PEG placed 03/18 -advancing tube feeds as tolerated. Currently at 25 ml/hr and tolerating Vital #Ileus -likely 2/2 to decreased PO intake for prolonged period #HypoK -repleted. -monitor BMP today #Depression -On remeron #Hypoglycemia -recurrent -likely due to decreased PO -BMGs -D50 PRN -Glucagon IM PRN if no IV access (pt pulls IVs frequently and has been difficult access) #PNA-resolved -completed abx #C.diff -No diarrhea at this time -Vanco #Anemia -stable -Epogen #ESRD -on HD via permacath #FEN -not on fluids -lytes wnl -Vital G tube feeds #PPx -hold AC in setting of GIB #Dispo -d/c planning pending tube feeds at target Fernando Peter MD PGY-2 IM Visit type - Emergency Visit Emergency Visit: Yes ED Registration Date: 02/27/18 Care time: The patient presented to the Emergency Department on the above date and was hospitalized for further evaluation of their emergent condition. - New Patient This patient is new to me today: No - Critical Care Critical Care patient: No
--- NOTE | 2018-03-24 12:20 | PN ---
Teaching Attending Note Name of Resident: Fernando Peter ATTENDING PHYSICIAN STATEMENT I saw and evaluated the patient. I reviewed the resident's note and discussed the case with the resident. I agree with the resident's findings and plan as documented. SUBJECTIVE:resting comfortable. 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 Sacral wound-repeat CT showing no signs of OM. cont with local wound care, frequent turning. not a candidate for wound vac. 2. Severe malnutrition- as evident by body habitus and low BMI. s/p PEG 03/18. tolerating TF. no episodes of nauasea or vomiting. at 25cc/H at this time. cont reglan Q8H. daily EKG checks. recreational feeds. 3. Ileus- due to lack of GI nutrition and movement for extended period of time. continuing to tolerate. 4. hypokalemia- liekly due to poor intake. resolved 5. depression-on remeron. continues to refuse treatment intermittently. 6. Hypoglycemia- having periods of hypoglycemia due to poor oral intake. cont BGM Q6H, D50 prn 7. PNA- likely aspiration. no peripheral access. completed abx course. monitor off abx 8. Cdiff- no more diarrhea. on vanco Q48H x1 month. contact precautions 9. Anemia- Hgb stable. no indication for transfusion. epogen 10. ESRD on HD- cont per normal schedule via permacath. vein maping completed. 11. DVT ppx- SCD. would hold pharmacolgic anticoagulation with recent large GI bleed 12. can d/c cardiac monitoring. possible d/c tomorrow pending if HD seat is available and if tolerating feeds
[2018-03-24 12:44] LABS: ANION GAP 10 MMOL/L (8-16); BLOOD UREA NITROGEN 32 mg/dL (7-18); CALCIUM 8.5 mg/dL (8.5-10.1); CHLORIDE 102 mmol/L (98-107); CO2 29 mmol/L (21-32); CREATININE 3.2 mg/dL (0.55-1.3); GLUCOSE,RANDOM 99 mg/dL (74-106); POTASSIUM 3.5 mmol/L (3.5-5.1); SODIUM 140 mmol/L (136-145)
--- NOTE | 2018-03-24 18:45 | PN ---
Progress Note (short form) - Note Progress Note: 1. ESRD 2. failed kidney transplant 3. hx DM 4. Hx HTN 5. sacral ulcer 6. post op infection 7. c.diff 8. a-fib 9. failure to thrive 10.malnutrition 11. anemia 12. GI bleed 13. PNA Current Medications Acetaminophen (Tylenol Oral Solution -) 650 mg GT Q6H PRN PRN Reason: FEVER Last Admin: 03/23/18 21:29 Dose: 650 mg Amino Acids (Prosource No Carb Liquid Pkt) 30 ml GT TIDCM [facility]ARPAL Last Admin: 03/24/18 18:26 Dose: 30 ml Amlodipine Besylate (Norvasc -) 10 mg GT DAILY [facility]ARPAL Last Admin: 03/24/18 10:56 Dose: 10 mg Collagenase (Santyl -) 1 applic TP DAILY [facility]; Protocol Last Admin: 03/24/18 10:57 Dose: 1 applic Docusate Sodium (Colace Liquid -) 100 mg GT DAILY PRN PRN Reason: CONSTIPATION Emollient Ointment (Aquaphor -) 1 applic TP DAILY [facility] Last Admin: 03/24/18 10:56 Dose: 1 applic Glucagon (Glucagon -) 1 mg SQ Q15M PRN PRN Reason: HYPOGLYCEMIA Insulin Aspart (Novolog Vial Sliding Scale -) 1 vial SQ ACHS [facility]; Protocol Last Admin: 03/24/18 18:24 Dose: Not Given Lactobacillus Acidophilus (Bacid -) 1 tab GT DAILY [facility] Last Admin: 03/24/18 10:57 Dose: 1 tab Metoprolol Tartrate (Lopressor -) 25 mg GT BID [facility] Last Admin: 03/24/18 10:57 Dose: 25 mg Mirtazapine (Remeron -) 15 mg GT HS [facility] Last Admin: 03/23/18 21:28 Dose: 15 mg Senna (Senna -) 2 tab PO HS PRN PRN Reason: CONSTIPATION Last Vital Signs Temp Pulse Resp BP Pulse Ox 99.1 F 67 18 125/57 L 96 03/24/18 18:00 03/24/18 18:00 03/24/18 18:00 03/24/18 18:00 03/24/18 09:00 awake in nad neck no jvd lungs clear heart reg abd soft nontender ext no edema CBC, BMP 03/22/18 17:30 12/02/18 10:45 IMP- esrd clinically uneventful uneventful course so far Plan - HD sunday - pt tolerating diet so far - monitor for refeeding - epogen for anemia - will follow
[2018-03-24] MEDS ORDERED: SODIUM CHLORIDE 250 ML IV PRN (18:46)
[2018-03-24] MEDS: MIRTAZAPINE 15 MG TABLET (FP) GT SCH (22:27)
[2018-03-25] MEDS: INSULIN SLIDING SCALE (NOVOLOG) 1 VIAL SQ SCH ×4 (06:19→22:43)
[2018-03-25] MEDS: AMINO ACIDS/PROTEIN HYDROLYS 30 ML LIQUID.PKT GT SCH ×3 (08:00→18:29)
[2018-03-25 09:23] LABS: HEMATOCRIT 29.6 % (32.4-45.2); HEMOGLOBIN 9.3 GM/dL (10.7-15.3); MCHC 31.2 g/dl (32.0-36.0); MEAN CELL VOLUME 99.1 fl (80-96); MEAN PLT VOLUME 9.7 fl (7.5-11.1); PLATELET COUNT 219 K/MM3 (134-434); RBC 2.99 M/mm3 (3.60-5.2); RDW 18.8 % (11.6-15.6); WHITE BLOOD COUNT 8.6 K/mm3 (4.0-10.0)
[2018-03-25 09:50] LABS: ALBUMIN 1.4 g/dl (3.4-5.0); ALK PHOS 170 U/L (45-117); ANION GAP 9 MMOL/L (8-16); BILIRUBIN,TOTAL 0.4 mg/dL (0.2-1); BLOOD UREA NITROGEN 40 mg/dL (7-18); CALCIUM 8.1 mg/dL (8.5-10.1); CHLORIDE 101 mmol/L (98-107); CO2 29 mmol/L (21-32); GLUCOSE,RANDOM 110 mg/dL (74-106); PHOSPHOROUS 2.8 mg/dL (2.5-4.9); POTASSIUM 3.8 mmol/L (3.5-5.1); SGOT/AST 14 U/L (15-37); SGPT/ALT < 6 U/L (13-61); SODIUM 139 mmol/L (136-145); TOT PROT 6.6 g/dl (6.4-8.2)
[2018-03-25] MEDS ORDERED: PT OWN MED DRAWER 7, Y5N ONE (11:03)
[2018-03-25] MEDS: METOPROLOL TARTRATE 25 MG TABLET (FP) GT SCH ×2 (12:24→22:42)
[2018-03-25] MEDS: amLODIPine BESYLATE 10 MG TABLET (FP) GT SCH (12:24)
[2018-03-25] MEDS: LACTOBACILLUS ACIDOPHILUS 1 TABLET GT SCH (12:24)
--- NOTE | 2018-03-25 12:38 | PN ---
Progress Note, Physician History of Present Illness: Pt seen and examined at bedside. She tolerated HD. She is tolerating diet. - Current Medication List Current Medications: Active Medications Acetaminophen (Tylenol Oral Solution -) 650 mg GT Q6H PRN PRN Reason: FEVER Last Admin: 03/23/18 21:29 Dose: 650 mg Amino Acids (Prosource No Carb Liquid Pkt) 30 ml GT TIDCM [facility] Last Admin: 03/25/18 08:00 Dose: Not Given Amlodipine Besylate (Norvasc -) 10 mg GT DAILY [facility] Last Admin: 03/24/18 10:56 Dose: 10 mg Collagenase (Santyl -) 1 applic TP DAILY [facility]; Protocol Last Admin: 03/24/18 10:57 Dose: 1 applic Docusate Sodium (Colace Liquid -) 100 mg GT DAILY PRN PRN Reason: CONSTIPATION Emollient Ointment (Aquaphor -) 1 applic TP DAILY [facility] Last Admin: 03/24/18 10:56 Dose: 1 applic Glucagon (Glucagon -) 1 mg SQ Q15M PRN PRN Reason: HYPOGLYCEMIA Sodium Chloride (Normal Saline -) 250 mls @ 3,000 mls/hr IV PRN PRN PRN Reason: Hypotension during Dialysis Stop: 03/25/18 18:46 Insulin Aspart (Novolog Vial Sliding Scale -) 1 vial SQ ACHS [facility]; Protocol Last Admin: 03/25/18 11:43 Dose: Not Given Lactobacillus Acidophilus (Bacid -) 1 tab GT DAILY [facility] Last Admin: 03/24/18 10:57 Dose: 1 tab Metoprolol Tartrate (Lopressor -) 25 mg GT BID [facility] Last Admin: 03/24/18 22:28 Dose: 25 mg Mirtazapine (Remeron -) 15 mg GT HS [facility] Last Admin: 03/24/18 22:27 Dose: 15 mg Senna (Senna -) 2 tab PO HS PRN PRN Reason: CONSTIPATION - Objective Vital Signs: Vital Signs Temperature 98.2 F 03/25/18 07:15 Pulse Rate 72 03/25/18 11:30 Respiratory Rate 18 03/25/18 11:30 Blood Pressure 126/74 03/25/18 11:30 O2 Sat by Pulse Oximetry (%) 94 L 03/24/18 21:00 Constitutional: Yes: Calm Eyes: Yes: Conjunctiva Clear HENT: Yes: Atraumatic Neck: Yes: Supple Cardiovascular: Yes: S1, S2 Respiratory: Yes: CTA Bilaterally Gastrointestinal: Yes: Soft, Other (peg) Genitourinary: Yes: Incontinence Musculoskeletal: Yes: Muscle Weakness Edema: No Neurological: Yes: Confusion Labs: CBC, BMP 03/25/18 07:30 03/25/18 07:30 INR, PTT INR 1.13 (0.83-1.09) H 03/18/18 06:00 Problem List - Problems (1) ESRD (end stage renal disease) on dialysis Code(s): N18.6 - END STAGE RENAL DISEASE; Z99.2 - DEPENDENCE ON RENAL DIALYSIS (2) Sacral decubitus ulcer Code(s): L89.159 - PRESSURE ULCER OF SACRAL REGION, UNSPECIFIED STAGE Qualifiers: Pressure injury stage: stage 4 Qualified Code(s): L89.154 - Pressure ulcer of sacral region, stage 4 Assessment/Plan Current Medications Generic Name Dose Route Start Last Admin Trade Name Freq PRN Reason Stop Dose Admin Acetaminophen 650 mg 03/23/18 19:18 03/23/18 21:29 Tylenol Oral Solution - GT 650 mg Q6H PRN Administration FEVER Amino Acids 30 ml 03/24/18 08:00 03/25/18 08:00 Prosource No Carb Liquid Pkt GT Not Given TIDCM [facility] Amlodipine Besylate 10 mg 03/24/18 10:00 03/24/18 10:56 Norvasc - GT 10 mg DAILY [facility] Administration Collagenase 1 applic 03/24/18 10:00 03/24/18 10:57 Santyl - TP 1 applic DAILY [facility] Administration Protocol Docusate Sodium 100 mg 03/23/18 19:18 Colace Liquid - GT DAILY PRN CONSTIPATION Emollient Ointment 1 applic 03/24/18 10:00 03/24/18 10:56 Aquaphor - TP 1 applic DAILY [facility] Administration Glucagon 1 mg 03/23/18 19:18 Glucagon - SQ Q15M PRN HYPOGLYCEMIA Sodium Chloride 250 mls @ 3,000 mls/hr 03/24/18 18:46 Normal Saline - IV 03/25/18 18:46 PRN PRN Hypotension during Dialysis Insulin Aspart 1 vial 03/23/18 22:00 03/25/18 11:43 Novolog Vial Sliding Scale - SQ Not Given ACHS [facility] Protocol Lactobacillus Acidophilus 1 tab 03/24/18 10:00 03/24/18 10:57 Bacid - GT 1 tab DAILY [facility] Administration Metoprolol Tartrate 25 mg 03/23/18 22:00 03/24/18 22:28 Lopressor - GT 25 mg BID [facility] Administration Mirtazapine 15 mg 03/23/18 22:00 03/24/18 22:27 Remeron - GT 15 mg HS [facility] Administration Senna 2 tab 03/23/18 19:18 Senna - PO HS PRN CONSTIPATION Impression 1. ESRD 2. failed kidney transplant 3. hx DM 4. Hx HTN 5. sacral ulcer 6. post op infection 7. c.diff 8. a-fib 9. failure to thrive 10.malnutrition 11. anemia 12. GI bleed 13. PNA Plan - pt tolerated HD today - cont feeds - pt tolerating diet so far - epogen for anemia - will follow Dr Winters
--- NOTE | 2018-03-25 14:17 | PN ---
Teaching Attending Note Name of Resident: Fernando Ricci ATTENDING PHYSICIAN STATEMENT I saw and evaluated the patient. I reviewed the resident's note and discussed the case with the resident. I agree with the resident's findings and plan as documented. SUBJECTIVE:resting comfortable OBJECTIVE: Last Vital Signs Temp Pulse Resp BP Pulse Ox 97.6 F 71 18 135/63 95 03/25/18 12:20 03/25/18 12:20 03/25/18 12:20 03/25/18 12:20 03/25/18 09:00 General NAD Abdomen soft NT/ND +PEG tube ASSESSMENT AND PLAN: 77 yo F with reportedly prolonged stay at [facility] for PNA, cdiff (requiring fecal transplant), 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 Sacral wound-repeat CT showing no signs of OM. cont with local wound care, frequent turning. not a candidate for wound vac. 2. Severe malnutrition- as evident by body habitus and low BMI. s/p PEG 03/18. tolerating TF. no episodes of nauasea or vomiting. at 40cc/H at this time. cont reglan Q8H. daily EKG checks. recreational feeds. 3. Ileus- due to lack of GI nutrition and movement for extended period of time. continuing to tolerate. 4. hypokalemia- liekly due to poor intake. resolved 5. depression-on remeron. continues to refuse treatment intermittently. 6. Hypoglycemia- having periods of hypoglycemia due to poor oral intake. cont BGM Q6H, D50 prn 7. PNA- likely aspiration. no peripheral access. completed abx course. monitor off abx 8. Cdiff- no more diarrhea. on vanco Q48H x1 month. contact precautions 9. Anemia- Hgb stable. no indication for transfusion. epogen 10. ESRD on HD- cont per normal schedule via permacath. vein maping completed. 11. DVT ppx- SCD. would hold pharmacolgic anticoagulation with recent large GI bleed 12.awaiting to determine if HD seat is available. can d/c when seat is confirmed
[2018-03-25] MEDS: MINERAL OIL/PET HY-PHL TOPICAL OINTMENT 454 GM JAR TP SCH (14:54)
[2018-03-25] MEDS: COLLAGENASE CLOSTRIDIUM HIST. 30 GRAMS TUBE TP SCH (14:54)
--- NOTE | 2018-03-25 14:54 | PN ---
Physical Exam: SUBJECTIVE: Patient seen and examined at bedside. HD earlier this am. No acute events overnight. OBJECTIVE: Vital Signs Period Temp Pulse Resp BP Sys/Franco Pulse Ox Last 24 Hr 97.3 F-99.1 F 60-78 18-18 105-147/57-95 94-95 GENERAL: Awake , Lethargic HEAD: NC/AT EYES: EOMI NECK: Supple No JVD LUNGS: Inspiratory effort poor. HEART: RRR No MRG S1S2 ABDOMEN: NDNT EXTREMITIES: Diffuse atrophy, muscle atrophy Laboratory Results - last 24 hr 03/24/18 03/24/18 03/25/18 18:23 22:26 05:51 WBC RBC Hgb Hct MCV MCH MCHC RDW Plt Count MPV Sodium Potassium Chloride Carbon Dioxide Anion Gap BUN Creatinine Creat Clearance w eGFR POC Glucometer 108 89 122 Random Glucose Calcium Phosphorus Total Bilirubin AST ALT Alkaline Phosphatase Total Protein Albumin 03/25/18 03/25/18 03/25/18 07:30 07:30 11:41 WBC 8.6 RBC 2.99 L Hgb 9.3 L Hct 29.6 L MCV 99.1 H MCH 31.0 MCHC 31.2 L RDW 18.8 H Plt Count 219 D MPV 9.7 Sodium 139 Potassium 3.8 Chloride 101 Carbon Dioxide 29 Anion Gap 9 BUN 40 H Creatinine 4.0 H Creat Clearance w eGFR 10.83 POC Glucometer 152 Random Glucose 110 H Calcium 8.1 L Phosphorus 2.8 Total Bilirubin 0.4 AST 14 L ALT < 6 L Alkaline Phosphatase 170 H Total Protein 6.6 Albumin 1.4 L Active Medications Generic Name Dose Route Start Last Admin Trade Name Freq PRN Reason Stop Dose Admin Acetaminophen 650 mg 03/23/18 19:18 03/23/18 21:29 Tylenol Oral Solution - GT 650 mg Q6H PRN Administration FEVER Amino Acids 30 ml 03/24/18 08:00 03/25/18 12:24 Prosource No Carb Liquid Pkt GT 30 ml TIDCM [facility] Administration Amlodipine Besylate 10 mg 03/24/18 10:00 03/25/18 12:24 Norvasc - GT 10 mg DAILY [facility] Administration Collagenase 1 applic 03/24/18 10:00 03/24/18 10:57 Santyl - TP 1 applic DAILY [facility] Administration Protocol Docusate Sodium 100 mg 12/01/18 19:18 Colace Liquid - GT DAILY PRN CONSTIPATION Emollient Ointment 1 applic 03/24/18 10:00 03/24/18 10:56 Aquaphor - TP 1 applic DAILY [facility] Administration Glucagon 1 mg 03/23/18 19:18 Glucagon - SQ Q15M PRN HYPOGLYCEMIA Sodium Chloride 250 mls @ 3,000 mls/hr 03/24/18 18:46 Normal Saline - IV 03/25/18 18:46 PRN PRN Hypotension during Dialysis Insulin Aspart 1 vial 03/23/18 22:00 03/25/18 11:43 Novolog Vial Sliding Scale - SQ Not Given ACHS [facility] Protocol Lactobacillus Acidophilus 1 tab 03/24/18 10:00 03/25/18 12:24 Bacid - GT 1 tab DAILY [facility] Administration Metoprolol Tartrate 25 mg 03/23/18 22:00 03/25/18 12:24 Lopressor - GT 25 mg BID [facility] Administration Mirtazapine 15 mg 03/23/18 22:00 03/24/18 22:27 Remeron - GT 15 mg HS [facility] Administration Senna 2 tab 03/23/18 19:18 Senna - PO HS PRN CONSTIPATION ASSESSMENT/PLAN: Patient is a 77 year old female with history of ESRD on HD Mon, Wed, Sun, s/p kidney transplant 10/08, diabetes mellitus, hypertension, Afib not on anticoagulation due to GI bleed on prior admission, recently discharged from [facility], presents for complaint of sacral ulcer, requiring wound care. #Malnutrition PEG Tube intact, functional. Monitor for re-feeding syndrome. 03/21/18---> Tube feeding at 5cc/hr with 10cc/hr of free water. Spoke with Kami, Forcer Maker, and Dr Wolf. Agrees with resuming tube feeds . Metoclopramide 10 mg in light of Ileus. EKG QTc 03/21: 446 -Colace given for bowl prep. -Feeds titrated to 20cc/hr with 10cc/hr fluid overnight. -Psychiatry, Dr Milligan evaluated pt 03/06/18, deemed pt not competent to give informed consent regarding her medical treatment. Pt started on Remeron 15 HS for depression and in aid in increase PO. #Stage IV sacral decubitus ulcer -Surgery--> Santyl to sacrum daily, Alleven over sacrum, Alleven over b/l heels , Offload pressure areas with frequent repositioning, 02/26/18 CT Abd/Pelvis--> No CT Evidence of osteomyelitis. #ESRD on hemodialysis -Nephrology-Dr Winters on board. HD today 03/25/18. 1.00 KG WT REMOVED Confirm HD chair placement for D/C. - Epogen per renal. #Hypoglycemia -Glucagon Q15 min SQ PRN hypoglycemia #C. Difficile infection -Vanco 125 po every 2 days per week for 2 weeks. Spoke with I.D this evening and in agreement. -Contact precautions #Atrial fibrillation -Lopressor 25 po bid -No AC at this time due to h/o G.I bleed on last admission. #Hypertension -Continue Norvasc 10 mg PO daily #FEN No I.V access, no fluids Monitor electrolytes Tube Feeds -tube feeding at 40cc/hr with 10cc/hr of free water Forcer Maker input appreciated and noted---> " trials of bolus or gravity feeding on a standard enteral feeding formula. Pt is currently receiving TF Nepro @ 40 ml/hr goal rate. This rate was reached yesterday and pt has been tolerating goal rate. Suggest using gravity feeding vs. bolus with TF TwoCal: 1 can 237 ml slow gravity TID (711 ml total volume- 1422 kcal/60 gm Prot/ 497 ml free water) Recommend using 50 ml water flush before and after each can of enteral feeding and 100 ml additional TID. Total free water - 1100 ml. Also recommend Prosource 30 ml BID and to continue with Reglan to help increase TF tolerance. Recommend pt sitting up during gravity feeding to prevent aspiration. Pt also has the ability to take PO foods - Renal chopped with nectar thick liquids. Monitor TF tolerance, s/s aspiration and renal labs. RD will continue to follow. " Prophylaxis No anticoagulation in light of G.I bleed on previous admission. Disposition- Possible D/C in am Visit type - Emergency Visit Emergency Visit: Yes ED Registration Date: 02/27/18 Care time: The patient presented to the Emergency Department on the above date and was hospitalized for further evaluation of their emergent condition. - New Patient This patient is new to me today: No - Critical Care Critical Care patient: No - Discharge Referral Referred to [facility] Med P.C.: No
[2018-03-25] MEDS ORDERED: VANCOMYCIN 250 MG/5 ML ORAL SOLUTION PO SCH (16:30)
--- NOTE | 2018-03-25 17:08 | EKG ---
Test Reason : Blood Pressure : / mmHG Vent. Rate : 069 BPM Atrial Rate : 069 BPM P-R Int : 122 ms QRS Dur : 102 ms QT Int : 458 ms P-R-T Axes : 062 058 011 degrees QTc Int : 490 ms NORMAL SINUS RHYTHM SEPTAL INFARCT , AGE UNDETERMINED ABNORMAL ECG WHEN COMPARED WITH ECG OF 22-MAR-2018 21:16, T WAVE VARIATION Confirmed by DICKSON PÉREZ MD ([id number]) on 03/25/2018 5:07:48 PM Referred By: TAZ VAUGHAN Confirmed By:DICKSON PÉREZ MD
[2018-03-25] MEDS: VANCOMYCIN 250 MG/5 ML ORAL SOLUTION PO SCH (22:42)
[2018-03-25] MEDS: MIRTAZAPINE 15 MG TABLET (FP) GT SCH (22:42)
[2018-03-26] MEDS: INSULIN SLIDING SCALE (NOVOLOG) 1 VIAL SQ SCH ×4 (06:56→22:11)
[2018-03-26] MEDS: METOPROLOL TARTRATE 25 MG TABLET (FP) GT SCH ×2 (09:09→22:00)
[2018-03-26] MEDS: AMINO ACIDS/PROTEIN HYDROLYS 30 ML LIQUID.PKT GT SCH ×3 (09:09→17:22)
[2018-03-26] MEDS: LACTOBACILLUS ACIDOPHILUS 1 TABLET GT SCH (09:09)
[2018-03-26] MEDS: amLODIPine BESYLATE 10 MG TABLET (FP) GT SCH (09:09)
[2018-03-26] MEDS: COLLAGENASE CLOSTRIDIUM HIST. 30 GRAMS TUBE TP SCH (09:12)
--- NOTE | 2018-03-26 09:18 | PN ---
Teaching Attending Note Name of Resident: Fernando Ricci ATTENDING PHYSICIAN STATEMENT I saw and evaluated the patient. I reviewed the resident's note and discussed the case with the resident. I agree with the resident's findings and plan as documented with exceptions below. SUBJECTIVE: Patient seen and examined. awake, responds to name, no complaints, not hungry, does not feel like eating. OBJECTIVE: Vital Signs Period Temp Pulse Resp BP Sys/Franco Pulse Ox Last 24 Hr 97.6 F-98.8 F 70-97 18-18 101-144/59-74 95 Intake & Output 03/23/18 03/24/18 03/25/18 03/26/18 23:59 23:59 23:59 23:59 Intake Total 940 720 837 237 Balance 940 720 837 237 General: cachectic malnourished female in bed Abdomen: soft Peg in place with abdominal binder, NT, positive bowel sounds Extremities:cachectic, no edema Chest: decreased effort, no rales or wheezing Home Medications Medication Instructions Recorded Lactobacillus Acidophilus [Bacid -] 1 tab PO DAILY #30 tab 02/11/18 Metoprolol Tartrate [Lopressor -] 25 mg PO BID #60 tablet 02/11/18 Vancomycin Oral Solution 125 mg PO Q6HPO #100 ml 02/11/18 Amlodipine Besylate [Norvasc -] 5 mg PO DAILY #30 tablet 02/16/18 Miscellaneous Medical Supply 1 each SQ ASDIR #1 kit 02/16/18 [Glucometer Device] Miscellaneous Medical Supply 1 each SQ ASDIR #1 box 02/16/18 [Glucometer Test Strips #50] Miscellaneous Medical Supply 1 each SQ ASDIR #1 box 02/16/18 [Lancets] Miscellaneous Medical Supply 1 each ASDIR #1 misc 02/16/18 [Outpatient Order] Amino Acids/Protein Hydrolys 30 ml PO BID #10 liquid.pkt 02/22/18 [Prosource No Carb Liquid Pkt] Amino Acids/Protein Hydrolys 30 ml PO BID #30 liquid.pkt 02/22/18 [Prosource No Carb Liquid Pkt] Amlodipine Besylate [Norvasc -] 10 mg PO DAILY #30 tablet 02/22/18 Collagenase Clostridium Hist. 1 bottle TP DAILY #5 oint...g. 02/22/18 [Santyl] Gauze Bandage [Gauze] 1 box TP DAILY #5 bandage 02/22/18 Gauze Bandage [Gauze] 1 each TP DAILY #30 bandage 02/22/18 Nut.tx.imp.renal Fxn,Lac-Reduc 237 ml PO DAILY #30 liquid 02/22/18 [Nepro Carb Steady] Nut.tx.imp.renal Fxn,Lac-Reduc 237 ml PO DAILY #30 liquid 02/22/18 [Nepro Carb Steady] Active Medications Acetaminophen (Tylenol Oral Solution -) 650 mg GT Q6H PRN PRN Reason: FEVER Last Admin: 03/23/18 21:29 Dose: 650 mg Amino Acids (Prosource No Carb Liquid Pkt) 30 ml GT TIDCM [facility] Last Admin: 03/25/18 18:29 Dose: 30 ml Amlodipine Besylate (Norvasc -) 10 mg GT DAILY [facility] Last Admin: 03/25/18 12:24 Dose: 10 mg Collagenase (Santyl -) 1 applic TP DAILY [facility]; Protocol Last Admin: 03/25/18 14:54 Dose: 1 applic Docusate Sodium (Colace Liquid -) 100 mg GT DAILY PRN PRN Reason: CONSTIPATION Emollient Ointment (Aquaphor -) 1 applic TP DAILY [facility] Last Admin: 03/25/18 14:54 Dose: 1 applic Glucagon (Glucagon -) 1 mg SQ Q15M PRN PRN Reason: HYPOGLYCEMIA Sodium Chloride (Normal Saline -) 250 mls @ 3,000 mls/hr IV PRN PRN PRN Reason: Hypotension during Dialysis Stop: 03/25/18 18:46 Insulin Aspart (Novolog Vial Sliding Scale -) 1 vial SQ ACHS [facility]; Protocol Last Admin: 03/26/18 06:56 Dose: Not Given Lactobacillus Acidophilus (Bacid -) 1 tab GT DAILY [facility] Last Admin: 03/25/18 12:24 Dose: 1 tab Metoprolol Tartrate (Lopressor -) 25 mg GT BID [facility] Last Admin: 03/25/18 22:42 Dose: 25 mg Mirtazapine (Remeron -) 15 mg GT HS [facility] Last Admin: 03/25/18 22:42 Dose: 15 mg Senna (Senna -) 2 tab PO HS PRN PRN Reason: CONSTIPATION Vancomycin HCl (Vancomycin Oral Solution) 125 mg PO Q3D@1000 [facility] Last Admin: 03/25/18 22:42 Dose: 125 mg Laboratory Results - last 24 hr 03/25/18 03/25/18 03/25/18 07:30 07:30 09:00 WBC 8.6 RBC 2.99 L Hgb 9.3 L Hct 29.6 L MCV 99.1 H MCH 31.0 MCHC 31.2 L RDW 18.8 H Plt Count 219 D MPV 9.7 Sodium 139 Potassium 3.8 Chloride 101 Carbon Dioxide 29 Anion Gap 9 BUN 40 H Creatinine 4.0 H Creat Clearance w eGFR 10.83 POC Glucometer Random Glucose 110 H Calcium 8.1 L Phosphorus 2.8 Total Bilirubin 0.4 AST 14 L ALT < 6 L Alkaline Phosphatase 170 H Total Protein 6.6 Albumin 1.4 L Hep C Ab Diagnostic 0.2 03/25/18 03/25/18 03/26/18 11:41 22:40 03:20 WBC RBC Hgb Hct MCV MCH MCHC RDW Plt Count MPV Sodium Potassium Chloride Carbon Dioxide Anion Gap BUN Creatinine Creat Clearance w eGFR POC Glucometer 152 81 114 Random Glucose Calcium Phosphorus Total Bilirubin AST ALT Alkaline Phosphatase Total Protein Albumin Hep C Ab Diagnostic 03/26/18 06:19 WBC RBC Hgb Hct MCV MCH MCHC RDW Plt Count MPV Sodium Potassium Chloride Carbon Dioxide Anion Gap BUN Creatinine Creat Clearance w eGFR POC Glucometer 72 Random Glucose Calcium Phosphorus Total Bilirubin AST ALT Alkaline Phosphatase Total Protein Albumin Hep C Ab Diagnostic ASSESSMENT AND PLAN: 77 yo F with reportedly prolonged stay at [facility] for PNA, cdiff (requiring fecal transplant), 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 Tolerating tube feeds. Bolus feeds Twocal 1 can TID 50 ml water flush before and after each can of enteral feeding and 100 ml additional TID. Repeat CT with no signs of OM. Local wound care, frequent turning, not candidate for wound vac. Psych input noted. Continue remeron. Ethics committe meeting on 03/13, Son Aries reports patient clearly expressing "I want to live' in her lucid states and would want PEG and aggressive measures respecting patient wishes. Son Constantin in agreement of the same. Palliative care input noted. Nutrition consult. Continue HD. Epogen per renal. Vascular surgery input noted. outpatient follow up for HD access. DVTPPX SCDs, given recent large Diverticular bleed. patient with severe malnutrition, ongoing poor oral intake resulting in recurrent episodes of hypoglycemia, requiring nutritional supplementation through alternate enteral means to ensure adequate nutrition and avoid life threatening hyperglycemia. Current clinical state strongly warrants alternative nutrition via enteral route/PEG. Given overall clincal decline and irreversability of many comorbidities, anticipate PEG needs for more than 3 months at this stage. Discussed with social work. Dispo plan for home dc with services in 24 hours pending home feeds arrangements. Plan discussed with nursing in detail, all questions answered.
[2018-03-26] MEDS: MINERAL OIL/PET HY-PHL TOPICAL OINTMENT 454 GM JAR TP SCH (11:54)
--- NOTE | 2018-03-26 14:25 | PN ---
Progress Note, Physician History of Present Illness: Pt seen and examined at bedside. She is awake and appears comfortable. - Current Medication List Current Medications: Active Medications Acetaminophen (Tylenol Oral Solution -) 650 mg GT Q6H PRN PRN Reason: FEVER Last Admin: 03/23/18 21:29 Dose: 650 mg Amino Acids (Prosource No Carb Liquid Pkt) 30 ml GT TIDCM [facility] Last Admin: 03/26/18 13:47 Dose: Not Given Amlodipine Besylate (Norvasc -) 10 mg GT DAILY [facility] Last Admin: 03/26/18 09:09 Dose: 10 mg Collagenase (Santyl -) 1 applic TP DAILY [facility]; Protocol Last Admin: 03/26/18 09:12 Dose: 1 applic Docusate Sodium (Colace Liquid -) 100 mg GT DAILY PRN PRN Reason: CONSTIPATION Emollient Ointment (Aquaphor -) 1 applic TP DAILY [facility] Last Admin: 03/26/18 11:54 Dose: 1 applic Glucagon (Glucagon -) 1 mg SQ Q15M PRN PRN Reason: HYPOGLYCEMIA Sodium Chloride (Normal Saline -) 250 mls @ 3,000 mls/hr IV PRN PRN PRN Reason: Hypotension during Dialysis Stop: 03/25/18 18:46 Insulin Aspart (Novolog Vial Sliding Scale -) 1 vial SQ ACHS [facility]; Protocol Last Admin: 03/26/18 11:54 Dose: Not Given Lactobacillus Acidophilus (Bacid -) 1 tab GT DAILY [facility] Last Admin: 03/26/18 09:09 Dose: 1 tab Metoprolol Tartrate (Lopressor -) 25 mg GT BID [facility] Last Admin: 03/26/18 09:09 Dose: 25 mg Mirtazapine (Remeron -) 15 mg GT HS [facility] Last Admin: 03/25/18 22:42 Dose: 15 mg Senna (Senna -) 2 tab PO HS PRN PRN Reason: CONSTIPATION Vancomycin HCl (Vancomycin Oral Solution) 125 mg PO Q3D@1000 [facility] Last Admin: 03/25/18 22:42 Dose: 125 mg - Objective Vital Signs: Vital Signs Temperature 98.2 F 03/26/18 13:56 Pulse Rate 67 03/26/18 13:56 Respiratory Rate 18 03/26/18 13:56 Blood Pressure 112/46 L 03/26/18 13:56 O2 Sat by Pulse Oximetry (%) 95 03/25/18 21:00 Constitutional: Yes: Calm Eyes: Yes: Conjunctiva Clear HENT: Yes: Atraumatic Neck: Yes: Supple Cardiovascular: Yes: S1, S2 Respiratory: Yes: CTA Bilaterally Gastrointestinal: Yes: Soft Genitourinary: Yes: Incontinence Musculoskeletal: Yes: Muscle Weakness Edema: No Neurological: Yes: Confusion Labs: CBC, BMP 03/25/18 07:30 03/25/18 07:30 INR, PTT INR 1.13 (0.83-1.09) H 03/18/18 06:00 Problem List - Problems (1) ESRD (end stage renal disease) on dialysis Code(s): N18.6 - END STAGE RENAL DISEASE; Z99.2 - DEPENDENCE ON RENAL DIALYSIS (2) Sacral decubitus ulcer Code(s): L89.159 - PRESSURE ULCER OF SACRAL REGION, UNSPECIFIED STAGE Qualifiers: Pressure injury stage: stage 4 Qualified Code(s): L89.154 - Pressure ulcer of sacral region, stage 4 Assessment/Plan Current Medications Generic Name Dose Route Start Last Admin Trade Name Freq PRN Reason Stop Dose Admin Acetaminophen 650 mg 03/23/18 19:18 03/23/18 21:29 Tylenol Oral Solution - GT 650 mg Q6H PRN Administration FEVER Amino Acids 30 ml 03/24/18 08:00 03/26/18 13:47 Prosource No Carb Liquid Pkt GT Not Given TIDCM [facility] Amlodipine Besylate 10 mg 03/24/18 10:00 03/26/18 09:09 Norvasc - GT 10 mg DAILY [facility] Administration Collagenase 1 applic 03/24/18 10:00 03/26/18 09:12 Santyl - TP 1 applic DAILY [facility] Administration Protocol Docusate Sodium 100 mg 03/23/18 19:18 Colace Liquid - GT DAILY PRN CONSTIPATION Emollient Ointment 1 applic 03/24/18 10:00 03/26/18 11:54 Aquaphor - TP 1 applic DAILY [facility] Administration Glucagon 1 mg 03/23/18 19:18 Glucagon - SQ Q15M PRN HYPOGLYCEMIA Sodium Chloride 250 mls @ 3,000 mls/hr 03/24/18 18:46 Normal Saline - IV 03/25/18 18:46 PRN PRN Hypotension during Dialysis Insulin Aspart 1 vial 03/23/18 22:00 03/26/18 11:54 Novolog Vial Sliding Scale - SQ Not Given ACHS [facility] Protocol Lactobacillus Acidophilus 1 tab 03/24/18 10:00 03/26/18 09:09 Bacid - GT 1 tab DAILY [facility] Administration Metoprolol Tartrate 25 mg 03/23/18 22:00 03/26/18 09:09 Lopressor - GT 25 mg BID [facility] Administration Mirtazapine 15 mg 03/23/18 22:00 03/25/18 22:42 Remeron - GT 15 mg HS [facility] Administration Senna 2 tab 03/23/18 19:18 Senna - PO HS PRN CONSTIPATION Vancomycin HCl 125 mg 03/25/18 17:30 03/25/18 22:42 Vancomycin Oral Solution PO 125 mg Q3D@1000 [facility] Administration Impression 1. ESRD 2. failed kidney transplant 3. hx DM 4. Hx HTN 5. sacral ulcer 6. post op infection 7. c.diff 8. a-fib 9. failure to thrive 10.malnutrition 11. anemia 12. GI bleed 13. PNA Plan - HD in am - cont tube feeds and PO feeds - discussed with medical team - epogen for anemia - will follow Dr Winters
[2018-03-26] MEDS ORDERED: SODIUM CHLORIDE 250 ML IV PRN (15:00)
--- NOTE | 2018-03-26 16:20 | PN ---
Physical Exam: SUBJECTIVE: Patient seen and examined at bedside. No acute events overnight. OBJECTIVE: Vital Signs Period Temp Pulse Resp BP Sys/Franco Pulse Ox Last 24 Hr 98.2 F-98.8 F 65-97 18-18 101-144/46-72 95 GENERAL: Somnolent, facial grimacing HEAD: NC/AT EYES: EOMI NECK: Supple No JVD LUNGS: poor inspiratory effort HEART: RRR No MRG S1S2 ABDOMEN: NDNT EXTREMITIES: Frail, muscle wasting Laboratory Results - last 24 hr 03/25/18 03/25/18 03/26/18 09:00 22:40 03:20 POC Glucometer 81 114 Hep C Ab Diagnostic 0.2 03/26/18 03/26/18 06:19 11:28 POC Glucometer 72 75 Hep C Ab Diagnostic Active Medications Generic Name Dose Route Start Last Admin Trade Name Freq PRN Reason Stop Dose Admin Acetaminophen 650 mg 03/23/18 19:18 03/23/18 21:29 Tylenol Oral Solution - GT 650 mg Q6H PRN Administration FEVER Amino Acids 30 ml 03/26/18 17:30 Prosource No Carb Liquid Pkt GT BID@0800,1730 [facility] Amlodipine Besylate 10 mg 03/24/18 10:00 03/26/18 09:09 Norvasc - GT 10 mg DAILY [facility] Administration Collagenase 1 applic 03/24/18 10:00 03/26/18 09:12 Santyl - TP 1 applic DAILY [facility] Administration Protocol Docusate Sodium 100 mg 03/23/18 19:18 Colace Liquid - GT DAILY PRN CONSTIPATION Emollient Ointment 1 applic 03/24/18 10:00 03/26/18 11:54 Aquaphor - TP 1 applic DAILY [facility] Administration Epoetin Abe 10,000 unit 03/27/18 14:25 Epogen - IVPUSH 03/27/18 14:26 ONCE ONE Glucagon 1 mg 03/23/18 19:18 Glucagon - SQ Q15M PRN HYPOGLYCEMIA Sodium Chloride 250 mls @ 3,000 mls/hr 03/26/18 14:25 Normal Saline - IV 03/27/18 14:25 PRN PRN Hypotension during Dialysis Insulin Aspart 1 vial 03/23/18 22:00 03/26/18 11:54 Novolog Vial Sliding Scale - SQ Not Given ACHS [facility] Protocol Lactobacillus Acidophilus 1 tab 03/24/18 10:00 03/26/18 09:09 Bacid - GT 1 tab DAILY [facility] Administration Metoprolol Tartrate 25 mg 03/23/18 22:00 03/26/18 09:09 Lopressor - GT 25 mg BID [facility] Administration Mirtazapine 15 mg 03/23/18 22:00 03/25/18 22:42 Remeron - GT 15 mg HS [facility] Administration Senna 2 tab 03/23/18 19:18 Senna - PO HS PRN CONSTIPATION Vancomycin HCl 125 mg 03/25/18 17:30 03/25/18 22:42 Vancomycin Oral Solution PO 125 mg Q3D@1000 [facility] Administration ASSESSMENT/PLAN: Patient is a 77 year old female with history of ESRD on HD Mon, Wed, Sun, s/p kidney transplant 10/08, diabetes mellitus, hypertension, Afib not on anticoagulation due to GI bleed on prior admission, recently discharged from [facility], presents for complaint of sacral ulcer, requiring wound care. #Malnutrition Tolerating tube feeds. Bolus feeds Twocal 1 can TID 50 ml water flush before and after each can of enteral feeding and 100 ml additional TID. #Stage IV sacral decubitus ulcer -Surgery--> Santyl to sacrum daily, Alleven over sacrum, Alleven over b/l heels , Offload pressure areas with frequent repositioning, 02/26/18 CT Abd/Pelvis--> No CT Evidence of osteomyelitis. #ESRD on hemodialysis -Nephrology-Dr Winters on board. - Epogen per renal. -HD seat confirmed. Will attend [facility] #Hypoglycemia -Glucagon Q15 min SQ PRN hypoglycemia #C. Difficile infection -Vanco 125 po every 2 days per week for 2 weeks. Spoke with I.D this evening and in agreement. -Contact precautions #Atrial fibrillation -Lopressor 25 po bid -No AC at this time due to h/o G.I bleed on last admission. #Hypertension -Continue Norvasc 10 mg PO daily #FEN No I.V access, no fluids Monitor electrolytes Tube Feeds Prophylaxis No anticoagulation in light of G.I bleed on previous admission. Disposition- Possible D/C in am Visit type - Emergency Visit Emergency Visit: Yes ED Registration Date: 02/27/18 Care time: The patient presented to the Emergency Department on the above date and was hospitalized for further evaluation of their emergent condition. - New Patient This patient is new to me today: No - Critical Care Critical Care patient: No - Discharge Referral Referred to [facility] Med P.C.: No
--- NOTE | 2018-03-26 16:59 | EKG ---
Test Reason : Blood Pressure : / mmHG Vent. Rate : 065 BPM Atrial Rate : 065 BPM P-R Int : 202 ms QRS Dur : 098 ms QT Int : 458 ms P-R-T Axes : 054 082 007 degrees QTc Int : 476 ms NORMAL SINUS RHYTHM ANTERIOR INFARCT (CITED ON OR BEFORE 25-MAR-2018) ABNORMAL ECG Confirmed by MD JOSUE, CLEMENTE ([id number]) on 03/26/2018 4:58:52 PM Referred By: Confirmed By:CLEMENTE SALAS MD
[2018-03-26] MEDS: MIRTAZAPINE 15 MG TABLET (FP) GT SCH (22:00)
[2018-03-27 00:06] LABS: HBSAG SCREEN Negative (Negative); HEP A AB, IGM Negative (Negative); HEP B CORE AB, TOT Negative (Negative)
[2018-03-27] MEDS: INSULIN SLIDING SCALE (NOVOLOG) 1 VIAL SQ SCH ×4 (06:06→21:29)
[2018-03-27] MEDS: AMINO ACIDS/PROTEIN HYDROLYS 30 ML LIQUID.PKT GT SCH ×2 (08:16→18:29)
[2018-03-27] MEDS: MINERAL OIL/PET HY-PHL TOPICAL OINTMENT 454 GM JAR TP SCH (09:36)
[2018-03-27] MEDS: amLODIPine BESYLATE 10 MG TABLET (FP) GT SCH (09:37)
[2018-03-27] MEDS: METOPROLOL TARTRATE 25 MG TABLET (FP) GT SCH ×2 (09:37→21:06)
[2018-03-27] MEDS: LACTOBACILLUS ACIDOPHILUS 1 TABLET GT SCH (09:37)
[2018-03-27] MEDS: COLLAGENASE CLOSTRIDIUM HIST. 30 GRAMS TUBE TP SCH (09:37)
[2018-03-27] MEDS: ACETAMINOPHEN 650 MG/20.3 ML ORAL SOLUTION (CUPS) GT PRN (12:13)
--- NOTE | 2018-03-27 12:34 | PN ---
Progress Note, Physician History of Present Illness: Pt seen and examined at bedside. She is awake and appears comfortable. She is tolerating feeds. - Current Medication List Current Medications: Active Medications Acetaminophen (Tylenol Oral Solution -) 650 mg GT Q6H PRN PRN Reason: FEVER Last Admin: 03/27/18 12:13 Dose: 650 mg Amino Acids (Prosource No Carb Liquid Pkt) 30 ml GT BID@0800,1730 [facility] Last Admin: 03/27/18 08:16 Dose: 30 ml Amlodipine Besylate (Norvasc -) 10 mg GT DAILY [facility] Last Admin: 03/27/18 09:37 Dose: 10 mg Collagenase (Santyl -) 1 applic TP DAILY [facility]; Protocol Last Admin: 03/27/18 09:37 Dose: 1 applic Docusate Sodium (Colace Liquid -) 100 mg GT DAILY PRN PRN Reason: CONSTIPATION Emollient Ointment (Aquaphor -) 1 applic TP DAILY [facility] Last Admin: 03/27/18 09:36 Dose: 1 applic Epoetin Abe (Epogen -) 10,000 unit IVPUSH ONCE ONE Stop: 03/27/18 14:26 Glucagon (Glucagon -) 1 mg SQ Q15M PRN PRN Reason: HYPOGLYCEMIA Sodium Chloride (Normal Saline -) 250 mls @ 3,000 mls/hr IV PRN PRN PRN Reason: Hypotension during Dialysis Stop: 03/27/18 14:25 Insulin Aspart (Novolog Vial Sliding Scale -) 1 vial SQ ACHS [facility]; Protocol Last Admin: 03/27/18 11:47 Dose: Not Given Lactobacillus Acidophilus (Bacid -) 1 tab GT DAILY [facility] Last Admin: 03/27/18 09:37 Dose: 1 tab Metoprolol Tartrate (Lopressor -) 25 mg GT BID [facility] Last Admin: 03/27/18 09:37 Dose: 25 mg Mirtazapine (Remeron -) 15 mg GT HS [facility] Last Admin: 03/26/18 22:00 Dose: 15 mg Senna (Senna -) 2 tab PO HS PRN PRN Reason: CONSTIPATION Vancomycin HCl (Vancomycin Oral Solution) 125 mg PO Q3D@1000 [facility] Last Admin: 03/25/18 22:42 Dose: 125 mg - Objective Vital Signs: Vital Signs Temperature 976 F H 03/27/18 08:00 Pulse Rate 68 03/27/18 08:00 Respiratory Rate 03/27/18 08:00 Blood Pressure 147/76 03/27/18 08:00 O2 Sat by Pulse Oximetry (%) 96 03/26/18 21:00 Constitutional: Yes: Calm Eyes: Yes: Conjunctiva Clear HENT: Yes: Atraumatic Cardiovascular: Yes: S1, S2 Respiratory: Yes: CTA Bilaterally Gastrointestinal: Yes: Other (peg) Musculoskeletal: Yes: Muscle Weakness Edema: No Neurological: Yes: Confusion Labs: CBC, BMP 03/25/18 07:30 03/25/18 07:30 INR, PTT INR 1.13 (0.83-1.09) H 03/18/18 06:00 Problem List - Problems (1) ESRD (end stage renal disease) on dialysis Code(s): N18.6 - END STAGE RENAL DISEASE; Z99.2 - DEPENDENCE ON RENAL DIALYSIS (2) Sacral decubitus ulcer Code(s): L89.159 - PRESSURE ULCER OF SACRAL REGION, UNSPECIFIED STAGE Qualifiers: Pressure injury stage: stage 4 Qualified Code(s): L89.154 - Pressure ulcer of sacral region, stage 4 Assessment/Plan Current Medications Generic Name Dose Route Start Last Admin Trade Name Freq PRN Reason Stop Dose Admin Acetaminophen 650 mg 03/23/18 19:18 03/27/18 12:13 Tylenol Oral Solution - GT 650 mg Q6H PRN Administration FEVER Amino Acids 30 ml 03/26/18 17:30 03/27/18 08:16 Prosource No Carb Liquid Pkt GT 30 ml BID@0800,1730 [facility] Administration Amlodipine Besylate 10 mg 03/24/18 10:00 03/27/18 09:37 Norvasc - GT 10 mg DAILY [facility] Administration Collagenase 1 applic 03/24/18 10:00 03/27/18 09:37 Santyl - TP 1 applic DAILY [facility] Administration Protocol Docusate Sodium 100 mg 03/23/18 19:18 Colace Liquid - GT DAILY PRN CONSTIPATION Emollient Ointment 1 applic 03/24/18 10:00 03/27/18 09:36 Aquaphor - TP 1 applic DAILY [facility] Administration Epoetin Abe 10,000 unit 03/27/18 14:25 Epogen - IVPUSH 03/27/18 14:26 ONCE ONE Glucagon 1 mg 03/23/18 19:18 Glucagon - SQ Q15M PRN HYPOGLYCEMIA Sodium Chloride 250 mls @ 3,000 mls/hr 03/26/18 14:25 Normal Saline - IV 03/27/18 14:25 PRN PRN Hypotension during Dialysis Insulin Aspart 1 vial 03/23/18 22:00 03/27/18 11:47 Novolog Vial Sliding Scale - SQ Not Given ACHS [facility] Protocol Lactobacillus Acidophilus 1 tab 03/24/18 10:00 03/27/18 09:37 Bacid - GT 1 tab DAILY [facility] Administration Metoprolol Tartrate 25 mg 03/23/18 22:00 03/27/18 09:37 Lopressor - GT 25 mg BID [facility] Administration Mirtazapine 15 mg 03/23/18 22:00 03/26/18 22:00 Remeron - GT 15 mg HS [facility] Administration Senna 2 tab 03/23/18 19:18 Senna - PO HS PRN CONSTIPATION Vancomycin HCl 125 mg 03/25/18 17:30 03/25/18 22:42 Vancomycin Oral Solution PO 125 mg Q3D@1000 [facility] Administration Impression 1. ESRD 2. failed kidney transplant 3. hx DM 4. Hx HTN 5. sacral ulcer 6. post op infection 7. c.diff 8. a-fib 9. failure to thrive 10.malnutrition 11. anemia 12. GI bleed 13. PNA Plan - HD today - cont feeds - check labs - will need placement - epogen for anemia - will follow Dr Winters
[2018-03-27] MEDS ORDERED: EPOETIN ALFA 10,000 UNIT/1 ML VIAL IVPUSH ONE (15:00)
--- NOTE | 2018-03-27 15:12 | PN ---
Teaching Attending Note Name of Resident: Fernando Ricci ATTENDING PHYSICIAN STATEMENT I saw and evaluated the patient. I reviewed the resident's note and discussed the case with the resident. I agree with the resident's findings and plan as documented with exceptions below. SUBJECTIVE: Patient seen and examined. No complaints. OBJECTIVE: Vital Signs Period Temp Pulse Resp BP Sys/Franco Pulse Ox Last 24 Hr 97.6 F-976 F 67-70 16-18 109-147/59-76 96 Intake & Output 03/24/18 03/25/18 03/26/18 03/27/18 23:59 23:59 23:59 23:59 Intake Total 720 837 574 0 Balance 720 837 574 0 General: sitting in bed in no acute distress Abdomen:soft, PEG in place, abdominal binder, non tenderness Extremities: cachectic Home Medications Medication Instructions Recorded Lactobacillus Acidophilus [Bacid -] 1 tab PO DAILY #30 tab 02/11/18 Metoprolol Tartrate [Lopressor -] 25 mg PO BID #60 tablet 02/11/18 Vancomycin Oral Solution 125 mg PO Q6HPO #100 ml 02/11/18 Amlodipine Besylate [Norvasc -] 5 mg PO DAILY #30 tablet 02/16/18 Miscellaneous Medical Supply 1 each SQ ASDIR #1 kit 02/16/18 [Glucometer Device] Miscellaneous Medical Supply 1 each SQ ASDIR #1 box 02/16/18 [Glucometer Test Strips #50] Miscellaneous Medical Supply 1 each SQ ASDIR #1 box 02/16/18 [Lancets] Miscellaneous Medical Supply 1 each MC ASDIR #1 misc 02/16/18 [Outpatient Order] Amino Acids/Protein Hydrolys 30 ml PO BID #10 liquid.pkt 02/22/18 [Prosource No Carb Liquid Pkt] Amino Acids/Protein Hydrolys 30 ml PO BID #30 liquid.pkt 02/22/18 [Prosource No Carb Liquid Pkt] Amlodipine Besylate [Norvasc -] 10 mg PO DAILY #30 tablet 02/22/18 Collagenase Clostridium Hist. 1 bottle TP DAILY #5 oint...g. 02/22/18 [Santyl] Gauze Bandage [Gauze] 1 box TP DAILY #5 bandage 02/22/18 Gauze Bandage [Gauze] 1 each TP DAILY #30 bandage 02/22/18 Nut.tx.imp.renal Fxn,Lac-Reduc 237 ml PO DAILY #30 liquid 02/22/18 [Nepro Carb Steady] Nut.tx.imp.renal Fxn,Lac-Reduc 237 ml PO DAILY #30 liquid 02/22/18 [Nepro Carb Steady] Active Medications Acetaminophen (Tylenol Oral Solution -) 650 mg GT Q6H PRN PRN Reason: FEVER Last Admin: 03/27/18 12:13 Dose: 650 mg Amino Acids (Prosource No Carb Liquid Pkt) 30 ml GT BID@0800,1730 [facility] Last Admin: 03/27/18 08:16 Dose: 30 ml Amlodipine Besylate (Norvasc -) 10 mg GT DAILY [facility] Last Admin: 03/27/18 09:37 Dose: 10 mg Collagenase (Santyl -) 1 applic TP DAILY [facility]; Protocol Last Admin: 03/27/18 09:37 Dose: 1 applic Docusate Sodium (Colace Liquid -) 100 mg GT DAILY PRN PRN Reason: CONSTIPATION Emollient Ointment (Aquaphor -) 1 applic TP DAILY [facility] Last Admin: 03/27/18 09:36 Dose: 1 applic Epoetin Abe (Epogen -) 10,000 unit IVPUSH ONCE ONE Stop: 03/27/18 14:26 Glucagon (Glucagon -) 1 mg SQ Q15M PRN PRN Reason: HYPOGLYCEMIA Sodium Chloride (Normal Saline -) 250 mls @ 3,000 mls/hr IV PRN PRN PRN Reason: Hypotension during Dialysis Stop: 03/27/18 14:25 Insulin Aspart (Novolog Vial Sliding Scale -) 1 vial SQ ACHS [facility]; Protocol Last Admin: 03/27/18 11:47 Dose: Not Given Lactobacillus Acidophilus (Bacid -) 1 tab GT DAILY [facility] Last Admin: 03/27/18 09:37 Dose: 1 tab Metoprolol Tartrate (Lopressor -) 25 mg GT BID [facility] Last Admin: 03/27/18 09:37 Dose: 25 mg Mirtazapine (Remeron -) 15 mg GT HS [facility] Last Admin: 03/26/18 22:00 Dose: 15 mg Senna (Senna -) 2 tab PO HS PRN PRN Reason: CONSTIPATION Vancomycin HCl (Vancomycin Oral Solution) 125 mg PO Q3D@1000 [facility] Last Admin: 03/25/18 22:42 Dose: 125 mg Laboratory Results - last 24 hr 03/25/18 03/26/18 03/26/18 09:00 17:16 22:01 POC Glucometer 107 130 Hep A IgM Ab Confirm Negative Hepatitis A Ab Total Positive H Hep Bs Antigen Negative Hep Bs Antibody Reactive Hep B Core Total Ab Negative 03/27/18 03/27/18 05:40 11:37 POC Glucometer 98 154 Hep A IgM Ab Confirm Hepatitis A Ab Total Hep Bs Antigen Hep Bs Antibody Hep B Core Total Ab ASSESSMENT AND PLAN: 77 yo F with reportedly prolonged stay at [facility] for PNA, cdiff (requiring fecal transplant), 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 Tolerating tube feeds. Bolus feeds Twocal 1 can TID 50 ml water flush before and after each can of enteral feeding and 100 ml additional TID. Repeat CT with no signs of OM. Local wound care, frequent turning, not candidate for wound vac. Psych input noted. Continue remeron. Ethics committe meeting on 03/13, Son Aries reports patient clearly expressing "I want to live' in her lucid states and would want PEG and aggressive measures respecting patient wishes. Marvel Killian in agreement of the same. Palliative care input noted. Nutrition consult. Continue HD. Epogen per renal. Vascular surgery input noted. outpatient follow up for HD access. DVTPPX SCDs, given recent large Diverticular bleed. Discussed with social work. Arranging home bolus feeds. Dispo plan for home dc with services tomorrow. .
--- NOTE | 2018-03-27 15:46 | EKG ---
Test Reason : Blood Pressure : / mmHG Vent. Rate : 070 BPM Atrial Rate : 070 BPM P-R Int : 220 ms QRS Dur : 102 ms QT Int : 426 ms P-R-T Axes : 053 092 008 degrees QTc Int : 460 ms SINUS RHYTHM WITH 1ST DEGREE A-V BLOCK RIGHTWARD AXIS LOW VOLTAGE QRS ANTEROSEPTAL INFARCT (CITED ON OR BEFORE 25-MAR-2018) ABNORMAL ECG WHEN COMPARED WITH ECG OF 26-MAR-2018 10:23, NO SIGNIFICANT CHANGE WAS FOUND Confirmed by ADELAIDE MYERS MD ([id number]) on 03/27/2018 3:45:34 PM Referred By: ISAURO VAUGHAN Confirmed By:ADELAIDE MYERS MD
[2018-03-27 16:25] LABS: HEMATOCRIT 26.2 % (32.4-45.2); HEMOGLOBIN 8.9 GM/dL (10.7-15.3); MCH 33.4 pg (25.7-33.7); MCHC 34.1 g/dl (32.0-36.0); MEAN CELL VOLUME 97.8 fl (80-96); MEAN PLT VOLUME 9.9 fl (7.5-11.1); PLATELET COUNT 177 K/MM3 (134-434); RBC 2.68 M/mm3 (3.60-5.2); RDW 18.8 % (11.6-15.6); WHITE BLOOD COUNT 2.4 K/mm3 (4.0-10.0)
[2018-03-27 16:46] LABS: ALBUMIN 1.4 g/dl (3.4-5.0); ALK PHOS 142 U/L (45-117); ANION GAP 7 MMOL/L (8-16); BILIRUBIN,TOTAL 0.3 mg/dL (0.2-1); BLOOD UREA NITROGEN 26 mg/dL (7-18); CALCIUM 7.5 mg/dL (8.5-10.1); CHLORIDE 106 mmol/L (98-107); CO2 31 mmol/L (21-32); CREATININE 1.9 mg/dL (0.55-1.3); GLUCOSE,RANDOM 145 mg/dL (74-106); POTASSIUM 3.5 mmol/L (3.5-5.1); SGOT/AST 17 U/L (15-37); SGPT/ALT < 6 U/L (13-61); SODIUM 144 mmol/L (136-145); TOT PROT 6.2 g/dl (6.4-8.2)
--- NOTE | 2018-03-27 20:28 | PN ---
Physical Exam: SUBJECTIVE: Patient seen and examined at bedside. No acute events overnight. OBJECTIVE: Vital Signs Period Temp Pulse Resp BP Sys/Franco Pulse Ox Last 24 Hr 97.3 F-976 F 62-74 16-18 95-147/59-76 96-97 GENERAL: Cachechtic HEAD: NC/AT EYES: EOMI NECK: Supple No JVD LUNGS: Poor inspiratory effort HEART: RRR No MRG S1S2 ABDOMEN: NDNT, PEg in place, no erythema around site EXTREMITIES: Frail, muscle wasting Laboratory Results - last 24 hr 03/25/18 03/26/18 03/27/18 09:00 22:01 05:40 WBC RBC Hgb Hct MCV MCH MCHC RDW Plt Count MPV Sodium Potassium Chloride Carbon Dioxide Anion Gap BUN Creatinine Creat Clearance w eGFR POC Glucometer 130 98 Random Glucose Calcium Total Bilirubin AST ALT Alkaline Phosphatase Total Protein Albumin Hep A IgM Ab Confirm Negative Hepatitis A Ab Total Positive H Hep Bs Antigen Negative Hep Bs Antibody Reactive Hep B Core Total Ab Negative 03/27/18 03/27/18 03/27/18 11:37 15:00 15:00 WBC 2.4 L RBC 2.68 L Hgb 8.9 L Hct 26.2 L MCV 97.8 H MCH 33.4 MCHC 34.1 RDW 18.8 H Plt Count 177 MPV 9.9 Sodium 144 Potassium 3.5 Chloride 106 Carbon Dioxide 31 Anion Gap 7 L BUN 26 H Creatinine 1.9 H Creat Clearance w eGFR 25.57 POC Glucometer 154 Random Glucose 145 H Calcium 7.5 L Total Bilirubin 0.3 AST 17 ALT < 6 L Alkaline Phosphatase 142 H Total Protein 6.2 L Albumin 1.4 L Hep A IgM Ab Confirm Hepatitis A Ab Total Hep Bs Antigen Hep Bs Antibody Hep B Core Total Ab 03/27/18 16:22 WBC RBC Hgb Hct MCV MCH MCHC RDW Plt Count MPV Sodium Potassium Chloride Carbon Dioxide Anion Gap BUN Creatinine Creat Clearance w eGFR POC Glucometer 147 Random Glucose Calcium Total Bilirubin AST ALT Alkaline Phosphatase Total Protein Albumin Hep A IgM Ab Confirm Hepatitis A Ab Total Hep Bs Antigen Hep Bs Antibody Hep B Core Total Ab Active Medications Generic Name Dose Route Start Last Admin Trade Name Freq PRN Reason Stop Dose Admin Acetaminophen 650 mg 03/23/18 19:18 03/27/18 12:13 Tylenol Oral Solution - GT 650 mg Q6H PRN Administration FEVER Amino Acids 30 ml 12/04/18 17:30 03/27/18 18:29 Prosource No Carb Liquid Pkt GT 30 ml BID@0800,1730 [facility] Administration Amlodipine Besylate 10 mg 03/24/18 10:00 03/27/18 09:37 Norvasc - GT 10 mg DAILY [facility] Administration Collagenase 1 applic 03/24/18 10:00 03/27/18 09:37 Santyl - TP 1 applic DAILY [facility] Administration Protocol Docusate Sodium 100 mg 03/23/18 19:18 Colace Liquid - GT DAILY PRN CONSTIPATION Emollient Ointment 1 applic 03/24/18 10:00 03/27/18 09:36 Aquaphor - TP 1 applic DAILY [facility] Administration Glucagon 1 mg 03/23/18 19:18 Glucagon - SQ Q15M PRN HYPOGLYCEMIA Insulin Aspart 1 vial 03/23/18 22:00 03/27/18 17:19 Novolog Vial Sliding Scale - SQ Not Given ACHS [facility] Protocol Lactobacillus Acidophilus 1 tab 03/24/18 10:00 03/27/18 09:37 Bacid - GT 1 tab DAILY [facility] Administration Metoprolol Tartrate 25 mg 03/23/18 22:00 03/27/18 09:37 Lopressor - GT 25 mg BID [facility] Administration Mirtazapine 15 mg 03/23/18 22:00 03/26/18 22:00 Remeron - GT 15 mg HS [facility] Administration Senna 2 tab 03/23/18 19:18 Senna - PO HS PRN CONSTIPATION Vancomycin HCl 125 mg 03/25/18 17:30 03/25/18 22:42 Vancomycin Oral Solution PO 125 mg Q3D@1000 [facility] Administration ASSESSMENT/PLAN: Patient is a 77 year old female with history of ESRD on HD Mon, Wed, Sun, s/p kidney transplant 10/08, diabetes mellitus, hypertension, Afib not on anticoagulation due to GI bleed on prior admission, recently discharged from [facility], presents for complaint of sacral ulcer, requiring wound care. #Malnutrition Tolerating tube feeds. Bolus feeds Twocal 1 can TID 50 ml water flush before and after each can of enteral feeding and 100 ml additional TID. #Stage IV sacral decubitus ulcer -Surgery--> Santyl to sacrum daily, Alleven over sacrum, Alleven over b/l heels , Offload pressure areas with frequent repositioning, 02/26/18 CT Abd/Pelvis--> No CT Evidence of osteomyelitis. #ESRD on hemodialysis -Nephrology-Dr Winters on board. - Epogen per renal. -HD as outpatient. Will attend [facility] #Hypoglycemia -Glucagon Q15 min SQ PRN hypoglycemia #C. Difficile infection -Vanco 125 po every 2 days per week for 2 weeks. -Contact precautions #Atrial fibrillation -Lopressor 25 po bid -No AC at this time due to h/o G.I bleed on last admission. #Hypertension -Continue Norvasc 10 mg PO daily #FEN No I.V access, no fluids Monitor electrolytes Tube Feeds. Per RD--> Resuming Dysphagia Renal/chopped/nectar thick liquids PO diet Prophylaxis No anticoagulation in light of G.I bleed on previous admission. Disposition- Possible D/C in am Visit type - Emergency Visit Emergency Visit: Yes ED Registration Date: 02/27/18 Care time: The patient presented to the Emergency Department on the above date and was hospitalized for further evaluation of their emergent condition. - New Patient This patient is new to me today: No - Critical Care Critical Care patient: No - Discharge Referral Referred to [facility] Med P.C.: No
[2018-03-27] MEDS: MIRTAZAPINE 15 MG TABLET (FP) GT SCH (21:06)
[2018-03-28] MEDS: INSULIN SLIDING SCALE (NOVOLOG) 1 VIAL SQ SCH ×4 (06:10→22:03)
--- NOTE | 2018-03-28 07:29 | PN ---
Teaching Attending Note Name of Resident: Fernando Ricci ATTENDING PHYSICIAN STATEMENT I saw and evaluated the patient. I reviewed the resident's note and discussed the case with the resident. I agree with the resident's findings and plan as documented with exceptions below. SUBJECTIVE: patient seen and examined. No complaints, minimal responses, awake and pleasant. OBJECTIVE: Vital Signs Period Temp Pulse Resp BP Sys/Franco Pulse Ox Last 24 Hr 97.3 F-976 F 62-74 18-20 95-147/54-76 97-97 Intake & Output 03/25/18 03/26/18 03/27/18 03/28/18 23:59 23:59 23:59 23:59 Intake Total 837 574 460 Balance 837 574 460 General: lying in bed in no acute distress Abdomen: soft, NT, ND, PEG in place Extremities: cachectic Chest: decreased effort Home Medications Medication Instructions Recorded Lactobacillus Acidophilus [Bacid -] 1 tab PO DAILY #30 tab 02/11/18 Metoprolol Tartrate [Lopressor -] 25 mg PO BID #60 tablet 02/11/18 Vancomycin Oral Solution 125 mg PO Q6HPO #100 ml 02/11/18 Amlodipine Besylate [Norvasc -] 5 mg PO DAILY #30 tablet 02/16/18 Miscellaneous Medical Supply 1 each SQ ASDIR #1 kit 02/16/18 [Glucometer Device] Miscellaneous Medical Supply 1 each SQ ASDIR #1 box 02/16/18 [Glucometer Test Strips #50] Miscellaneous Medical Supply 1 each SQ ASDIR #1 box 02/16/18 [Lancets] Miscellaneous Medical Supply 1 each ASDIR #1 misc 02/16/18 [Outpatient Order] Amino Acids/Protein Hydrolys 30 ml PO BID #10 liquid.pkt 02/22/18 [Prosource No Carb Liquid Pkt] Amino Acids/Protein Hydrolys 30 ml PO BID #30 liquid.pkt 02/22/18 [Prosource No Carb Liquid Pkt] Amlodipine Besylate [Norvasc -] 10 mg PO DAILY #30 tablet 02/22/18 Collagenase Clostridium Hist. 1 bottle TP DAILY #5 oint...g. 02/22/18 [Santyl] Gauze Bandage [Gauze] 1 box TP DAILY #5 bandage 11/02/18 Gauze Bandage [Gauze] 1 each TP DAILY #30 bandage 02/22/18 Nut.tx.imp.renal Fxn,Lac-Reduc 237 ml PO DAILY #30 liquid 02/22/18 [Nepro Carb Steady] Nut.tx.imp.renal Fxn,Lac-Reduc 237 ml PO DAILY #30 liquid 02/22/18 [Nepro Carb Steady] Laboratory Results - last 24 hr 03/27/18 03/27/18 03/27/18 11:37 15:00 15:00 WBC 2.4 L RBC 2.68 L Hgb 8.9 L Hct 26.2 L MCV 97.8 H MCH 33.4 MCHC 34.1 RDW 18.8 H Plt Count 177 MPV 9.9 Sodium 144 Potassium 3.5 Chloride 106 Carbon Dioxide 31 Anion Gap 7 L BUN 26 H Creatinine 1.9 H Creat Clearance w eGFR 25.57 POC Glucometer 154 Random Glucose 145 H Calcium 7.5 L Total Bilirubin 0.3 AST 17 ALT < 6 L Alkaline Phosphatase 142 H Total Protein 6.2 L Albumin 1.4 L 03/27/18 03/27/18 03/28/18 16:22 21:28 05:49 WBC RBC Hgb Hct MCV MCH MCHC RDW Plt Count MPV Sodium Potassium Chloride Carbon Dioxide Anion Gap BUN Creatinine Creat Clearance w eGFR POC Glucometer 147 198 80 Random Glucose Calcium Total Bilirubin AST ALT Alkaline Phosphatase Total Protein Albumin ASSESSMENT AND PLAN: 77 yo F with reportedly prolonged stay at [facility] for PNA, cdiff (requiring fecal transplant), 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 Tolerating tube feeds. Bolus feeds Twocal 1 can TID 50 ml water flush before and after each can of enteral feeding and 100 ml additional TID. Prosource BID and dysphagia nectar thick. Repeat CT with no signs of OM. Local wound care, frequent turning, not candidate for wound vac. Psych input noted. Continue remeron. Ethics committe meeting on 03/13, Marvel Chris reports patient clearly expressing "I want to live' in her lucid states and would want PEG and aggressive measures respecting patient wishes. Son Constantin in agreement of the same. Palliative care input noted. Nutrition consult. Continue HD. Epogen per renal. Vascular surgery input noted. outpatient follow up for HD access. DVTPPX SCDs, given recent large Diverticular bleed. Discussed with social work. Arranging home bolus feeds. PLan for d/c home with services today awaiting final social work input.
[2018-03-28] MEDS ORDERED: PT OWN MED DRAWER 7, Y5N ONE ×2 (10:24→10:43)
[2018-03-28] MEDS: AMINO ACIDS/PROTEIN HYDROLYS 30 ML LIQUID.PKT GT SCH ×2 (10:34→17:32)
[2018-03-28] MEDS: METOPROLOL TARTRATE 25 MG TABLET (FP) GT SCH ×2 (10:34→22:05)
[2018-03-28] MEDS: COLLAGENASE CLOSTRIDIUM HIST. 30 GRAMS TUBE TP SCH (10:34)
[2018-03-28] MEDS: LACTOBACILLUS ACIDOPHILUS 1 TABLET GT SCH (10:34)
[2018-03-28] MEDS: amLODIPine BESYLATE 10 MG TABLET (FP) GT SCH (10:34)
[2018-03-28] MEDS: MINERAL OIL/PET HY-PHL TOPICAL OINTMENT 454 GM JAR TP SCH (10:34)
[2018-03-28] MEDS: VANCOMYCIN 250 MG/5 ML ORAL SOLUTION PO SCH (11:15)
--- NOTE | 2018-03-28 15:06 | PN ---
Progress Note, Physician History of Present Illness: Pt seen and examined at bedside. No great clinical change in status. - Current Medication List Current Medications: Active Medications Acetaminophen (Tylenol Oral Solution -) 650 mg GT Q6H PRN PRN Reason: FEVER Last Admin: 03/27/18 12:13 Dose: 650 mg Amino Acids (Prosource No Carb Liquid Pkt) 30 ml GT BID@0800,1730 [facility] Last Admin: 03/28/18 10:34 Dose: 30 ml Amlodipine Besylate (Norvasc -) 10 mg GT DAILY [facility] Last Admin: 03/28/18 10:34 Dose: 10 mg Collagenase (Santyl -) 1 applic TP DAILY [facility]; Protocol Last Admin: 03/28/18 10:34 Dose: 1 applic Docusate Sodium (Colace Liquid -) 100 mg GT DAILY PRN PRN Reason: CONSTIPATION Emollient Ointment (Aquaphor -) 1 applic TP DAILY [facility] Last Admin: 03/28/18 10:34 Dose: 1 applic Glucagon (Glucagon -) 1 mg SQ Q15M PRN PRN Reason: HYPOGLYCEMIA Insulin Aspart (Novolog Vial Sliding Scale -) 1 vial SQ ACHS [facility]; Protocol Last Admin: 03/28/18 11:57 Dose: Not Given Lactobacillus Acidophilus (Bacid -) 1 tab GT DAILY [facility] Last Admin: 03/28/18 10:34 Dose: 1 tab Metoprolol Tartrate (Lopressor -) 25 mg GT BID [facility] Last Admin: 03/28/18 10:34 Dose: 25 mg Mirtazapine (Remeron -) 15 mg GT HS [facility] Last Admin: 03/27/18 21:06 Dose: 15 mg Senna (Senna -) 2 tab PO HS PRN PRN Reason: CONSTIPATION Vancomycin HCl (Vancomycin Oral Solution) 125 mg PO Q3D@1000 [facility] Last Admin: 03/28/18 11:15 Dose: 125 mg - Objective Vital Signs: Vital Signs Temperature 98.6 F 03/28/18 14:43 Pulse Rate 68 03/28/18 14:43 Respiratory Rate 18 03/28/18 14:43 Blood Pressure 145/67 03/28/18 14:43 O2 Sat by Pulse Oximetry (%) 98 03/28/18 09:30 Constitutional: Yes: Calm Eyes: Yes: Conjunctiva Clear HENT: Yes: Atraumatic Neck: Yes: Supple Cardiovascular: Yes: S1, S2 Respiratory: Yes: CTA Bilaterally Gastrointestinal: Yes: Soft, Other (peg) Genitourinary: Yes: Incontinence Musculoskeletal: Yes: Muscle Weakness Edema: No Neurological: Yes: Confusion Labs: CBC, BMP 03/27/18 15:00 03/27/18 15:00 INR, PTT INR 1.13 (0.83-1.09) H 03/18/18 06:00 Problem List - Problems (1) ESRD (end stage renal disease) on dialysis Code(s): N18.6 - END STAGE RENAL DISEASE; Z99.2 - DEPENDENCE ON RENAL DIALYSIS (2) Sacral decubitus ulcer Code(s): L89.159 - PRESSURE ULCER OF SACRAL REGION, UNSPECIFIED STAGE Qualifiers: Pressure injury stage: stage 4 Qualified Code(s): L89.154 - Pressure ulcer of sacral region, stage 4 Assessment/Plan Current Medications Generic Name Dose Route Start Last Admin Trade Name Freq PRN Reason Stop Dose Admin Acetaminophen 650 mg 03/23/18 19:18 03/27/18 12:13 Tylenol Oral Solution - GT 650 mg Q6H PRN Administration FEVER Amino Acids 30 ml 03/26/18 17:30 03/28/18 10:34 Prosource No Carb Liquid Pkt GT 30 ml BID@0800,1730 [facility] Administration Amlodipine Besylate 10 mg 03/24/18 10:00 03/28/18 10:34 Norvasc - GT 10 mg DAILY [facility] Administration Collagenase 1 applic 03/24/18 10:00 03/28/18 10:34 Santyl - TP 1 applic DAILY [facility] Administration Protocol Docusate Sodium 100 mg 03/23/18 19:18 Colace Liquid - GT DAILY PRN CONSTIPATION Emollient Ointment 1 applic 03/24/18 10:00 03/28/18 10:34 Aquaphor - TP 1 applic DAILY [facility] Administration Glucagon 1 mg 03/23/18 19:18 Glucagon - SQ Q15M PRN HYPOGLYCEMIA Insulin Aspart 1 vial 03/23/18 22:00 03/28/18 11:57 Novolog Vial Sliding Scale - SQ Not Given ACHS [facility] Protocol Lactobacillus Acidophilus 1 tab 03/24/18 10:00 03/28/18 10:34 Bacid - GT 1 tab DAILY [facility] Administration Metoprolol Tartrate 25 mg 03/23/18 22:00 03/28/18 10:34 Lopressor - GT 25 mg BID [facility] Administration Mirtazapine 15 mg 03/23/18 22:00 03/27/18 21:06 Remeron - GT 15 mg HS [facility] Administration Senna 2 tab 03/23/18 19:18 Senna - PO HS PRN CONSTIPATION Vancomycin HCl 125 mg 03/25/18 17:30 03/28/18 11:15 Vancomycin Oral Solution PO 125 mg Q3D@1000 [facility] Administration Impression 1. ESRD 2. failed kidney transplant 3. hx DM 4. Hx HTN 5. sacral ulcer 6. post op infection 7. c.diff 8. a-fib 9. failure to thrive 10.malnutrition 11. anemia 12. GI bleed 13. PNA Plan - HD in am - check labs in am - epogen for anemia - cont feeds and encourage PO intake - will use 3 k bath tomorrow as her last potassium was 3.5 - epogen for anemia - will follow Dr Winters
--- NOTE | 2018-03-28 18:40 | PN ---
Physical Exam: SUBJECTIVE: Patient seen and examined at bedside. No acute events overnight. OBJECTIVE: Vital Signs Period Temp Pulse Resp BP Sys/Franco Pulse Ox Last 24 Hr 97.3 F-98.6 F 68-69 18-20 130-145/54-69 97-98 GENERAL: Cachexia Diffuse muscle wasting HEAD: NC/AT EYES: EOMI NECK: Supple No JVD LUNGS: Poor inspiratory effort HEART: RRR No MRG S1S2 ABDOMEN: NDNT, PEG in place, no erythema around site EXTREMITIES: Diffuse wasting, frail Laboratory Results - last 24 hr 03/27/18 03/28/18 03/28/18 21:28 05:49 11:33 POC Glucometer 198 80 118 03/28/18 17:24 POC Glucometer 73 Active Medications Generic Name Dose Route Start Last Admin Trade Name Freq PRN Reason Stop Dose Admin Acetaminophen 650 mg 03/23/18 19:18 03/27/18 12:13 Tylenol Oral Solution - GT 650 mg Q6H PRN Administration FEVER Amino Acids 30 ml 03/26/18 17:30 03/28/18 17:32 Prosource No Carb Liquid Pkt GT 30 ml BID@0800,1730 [facility] Administration Amlodipine Besylate 10 mg 03/24/18 10:00 03/28/18 10:34 Norvasc - GT 10 mg DAILY [facility] Administration Collagenase 1 applic 03/24/18 10:00 03/28/18 10:34 Santyl - TP 1 applic DAILY [facility] Administration Protocol Docusate Sodium 100 mg 03/23/18 19:18 Colace Liquid - GT DAILY PRN CONSTIPATION Emollient Ointment 1 applic 03/24/18 10:00 03/28/18 10:34 Aquaphor - TP 1 applic DAILY [facility] Administration Epoetin Abe 10,000 unit 03/29/18 15:06 Epogen - IVPUSH 03/29/18 15:07 ONCE ONE Glucagon 1 mg 03/23/18 19:18 Glucagon - SQ Q15M PRN HYPOGLYCEMIA Sodium Chloride 250 mls @ 3,000 mls/hr 03/28/18 15:06 Normal Saline - IV 03/29/18 15:06 PRN PRN Hypotension during Dialysis Insulin Aspart 1 vial 03/23/18 22:00 03/28/18 17:25 Novolog Vial Sliding Scale - SQ Not Given ACHS [facility] Protocol Lactobacillus Acidophilus 1 tab 03/24/18 10:00 03/28/18 10:34 Bacid - GT 1 tab DAILY [facility] Administration Metoprolol Tartrate 25 mg 03/23/18 22:00 03/28/18 10:34 Lopressor - GT 25 mg BID [facility] Administration Mirtazapine 15 mg 03/23/18 22:00 03/27/18 21:06 Remeron - GT 15 mg HS [facility] Administration Senna 2 tab 03/23/18 19:18 Senna - PO HS PRN CONSTIPATION Vancomycin HCl 125 mg 03/25/18 17:30 03/28/18 11:15 Vancomycin Oral Solution PO 125 mg Q3D@1000 [facility] Administration ASSESSMENT/PLAN: Patient is a 77 year old female with history of ESRD on HD Mon, Wed, Sun, s/p kidney transplant 10/08, diabetes mellitus, hypertension, Afib not on anticoagulation due to GI bleed on prior admission, recently discharged from [facility], presents for complaint of sacral ulcer, requiring wound care. #Malnutrition Tolerating tube feeds. Bolus feeds Twocal 1 can TID 50 ml water flush before and after each can of enteral feeding and 100 ml additional TID. #Stage IV sacral decubitus ulcer -Surgery--> Santyl to sacrum daily, Alleven over sacrum, Alleven over b/l heels , Offload pressure areas with frequent repositioning, 02/26/18 CT Abd/Pelvis--> No CT Evidence of osteomyelitis. #ESRD on hemodialysis -Nephrology-Dr Winters on board. - Epogen per renal. -HD as outpatient. Will attend [facility] -Plan for HD in am tomorrow per Renal. #Hypoglycemia -Glucagon Q15 min SQ PRN hypoglycemia #C. Difficile infection -Vanco 125 po every 2 days per week for 2 weeks. -Contact precautions #Atrial fibrillation -Lopressor 25 po bid -No AC at this time due to h/o G.I bleed on last admission. #Hypertension -Continue Norvasc 10 mg PO daily #FEN No I.V access, no fluids Monitor electrolytes Tube Feeds. Per RD--> Resuming Dysphagia Renal/chopped/nectar thick liquids PO diet Prophylaxis No anticoagulation in light of G.I bleed on previous admission. Disposition- D/C in am pending discussion of bolus feeding with family Visit type - Emergency Visit Emergency Visit: Yes ED Registration Date: 02/27/18 Care time: The patient presented to the Emergency Department on the above date and was hospitalized for further evaluation of their emergent condition. - New Patient This patient is new to me today: No - Critical Care Critical Care patient: No - Discharge Referral Referred to [facility] Med P.C.: No
[2018-03-28] MEDS: MIRTAZAPINE 15 MG TABLET (FP) GT SCH (22:05)
[2018-03-29] MEDS: INSULIN SLIDING SCALE (NOVOLOG) 1 VIAL SQ SCH ×4 (06:12→21:24)
[2018-03-29] MEDS ORDERED: SODIUM CHLORIDE 250 ML IV PRN (06:55)
[2018-03-29] MEDS ORDERED: EPOETIN ALFA 10,000 UNIT/1 ML VIAL IVPUSH ONE (08:00)
[2018-03-29] MEDS ORDERED: PT OWN MED DRAWER 7, Y5N ONE (10:24)
[2018-03-29] MEDS: MINERAL OIL/PET HY-PHL TOPICAL OINTMENT 454 GM JAR TP SCH (10:34)
[2018-03-29] MEDS: LACTOBACILLUS ACIDOPHILUS 1 TABLET GT SCH (10:34)
[2018-03-29] MEDS: AMINO ACIDS/PROTEIN HYDROLYS 30 ML LIQUID.PKT GT SCH ×2 (10:34→16:47)
[2018-03-29] MEDS: amLODIPine BESYLATE 10 MG TABLET (FP) GT SCH (10:34)
[2018-03-29] MEDS: METOPROLOL TARTRATE 25 MG TABLET (FP) GT SCH ×2 (10:34→21:24)
[2018-03-29] MEDS: COLLAGENASE CLOSTRIDIUM HIST. 30 GRAMS TUBE TP SCH (10:35)
[2018-03-29 14:29] LABS: ALK PHOS 161 U/L (45-117); ANION GAP 21 MMOL/L (8-16); BILIRUBIN,TOTAL 0.3 mg/dL (0.2-1); BLOOD UREA NITROGEN 55 mg/dL (7-18); CHLORIDE 95 mmol/L (98-107); CO2 15 mmol/L (21-32); CREATININE 3.3 mg/dL (0.55-1.3); GLUCOSE,RANDOM 56 mg/dL (74-106); PHOSPHOROUS 4.1 mg/dL (2.5-4.9); POTASSIUM 5.4 mmol/L (3.5-5.1); SGOT/AST 19 U/L (15-37); SGPT/ALT 7 U/L (13-61); SODIUM 132 mmol/L (136-145); TOT PROT 6.8 g/dl (6.4-8.2)
[2018-03-29 14:44] LABS: CALCIUM 8.5 mg/dL (8.5-10.1)
[2018-03-29 15:02] LABS: WHITE BLOOD COUNT 8.2 K/mm3 (4.0-10.0)
[2018-03-29 15:03] LABS: HEMOGLOBIN 9.9 GM/dL (10.7-15.3); MCH 33.1 pg (25.7-33.7); MCHC 34.1 g/dl (32.0-36.0); MEAN PLT VOLUME 10.3 fl (7.5-11.1); PLATELET COUNT 225 K/MM3 (134-434); RBC 2.99 M/mm3 (3.60-5.2); RDW 18.8 % (11.6-15.6)
--- NOTE | 2018-03-29 16:05 | PN ---
Progress Note, Physician History of Present Illness: Pt seen and examined at bedside. She is awake and appears comfortable. She is tolerating diet. - Current Medication List Current Medications: Active Medications Acetaminophen (Tylenol Oral Solution -) 650 mg GT Q6H PRN PRN Reason: FEVER Last Admin: 03/27/18 12:13 Dose: 650 mg Amino Acids (Prosource No Carb Liquid Pkt) 30 ml GT BID@0800,1730 [facility] Last Admin: 03/29/18 10:34 Dose: 30 ml Amlodipine Besylate (Norvasc -) 10 mg GT DAILY [facility] Last Admin: 03/29/18 10:34 Dose: 10 mg Collagenase (Santyl -) 1 applic TP DAILY [facility]; Protocol Last Admin: 03/29/18 10:35 Dose: 1 applic Docusate Sodium (Colace Liquid -) 100 mg GT DAILY PRN PRN Reason: CONSTIPATION Last Admin: 03/29/18 10:34 Dose: 100 mg Emollient Ointment (Aquaphor -) 1 applic TP DAILY [facility] Last Admin: 03/29/18 10:34 Dose: 1 applic Glucagon (Glucagon -) 1 mg SQ Q15M PRN PRN Reason: HYPOGLYCEMIA Sodium Chloride (Normal Saline -) 250 mls @ 3,000 mls/hr IV PRN PRN PRN Reason: Hypotension during Dialysis Stop: 03/29/18 19:00 Insulin Aspart (Novolog Vial Sliding Scale -) 1 vial SQ ACHS [facility]; Protocol Last Admin: 03/29/18 11:03 Dose: Not Given Lactobacillus Acidophilus (Bacid -) 1 tab GT DAILY [facility] Last Admin: 03/29/18 10:34 Dose: 1 tab Metoprolol Tartrate (Lopressor -) 25 mg GT BID [facility] Last Admin: 03/29/18 10:34 Dose: 25 mg Mirtazapine (Remeron -) 15 mg GT HS [facility] Last Admin: 03/28/18 22:05 Dose: 15 mg Senna (Senna -) 2 tab PO HS PRN PRN Reason: CONSTIPATION Vancomycin HCl (Vancomycin Oral Solution) 125 mg PO Q3D@1000 [facility] Last Admin: 03/28/18 11:15 Dose: 125 mg - Objective Vital Signs: Vital Signs Temperature 7 F L 03/29/18 15:00 Pulse Rate 78 03/29/18 15:30 Respiratory Rate 18 03/29/18 15:30 Blood Pressure 120/67 03/29/18 15:30 O2 Sat by Pulse Oximetry (%) 96 03/29/18 09:00 Constitutional: Yes: Calm Eyes: Yes: Conjunctiva Clear HENT: Yes: Atraumatic Neck: Yes: Supple Cardiovascular: Yes: S1, S2 Respiratory: Yes: CTA Bilaterally Gastrointestinal: Yes: Soft Genitourinary: Yes: Incontinence Musculoskeletal: Yes: Muscle Weakness Edema: No Integumentary: Yes: Pressure Ulcer Neurological: Yes: Confusion Labs: CBC, BMP 03/29/18 13:10 03/29/18 13:10 INR, PTT INR 1.13 (0.83-1.09) H 03/18/18 06:00 Problem List - Problems (1) ESRD (end stage renal disease) on dialysis Code(s): N18.6 - END STAGE RENAL DISEASE; Z99.2 - DEPENDENCE ON RENAL DIALYSIS (2) Sacral decubitus ulcer Code(s): L89.159 - PRESSURE ULCER OF SACRAL REGION, UNSPECIFIED STAGE Qualifiers: Pressure injury stage: stage 4 Qualified Code(s): L89.154 - Pressure ulcer of sacral region, stage 4 Assessment/Plan Current Medications Generic Name Dose Route Start Last Admin Trade Name Freq PRN Reason Stop Dose Admin Acetaminophen 650 mg 03/23/18 19:18 03/27/18 12:13 Tylenol Oral Solution - GT 650 mg Q6H PRN Administration FEVER Amino Acids 30 ml 03/26/18 17:30 03/29/18 10:34 Prosource No Carb Liquid Pkt GT 30 ml BID@0800,1730 [facility] Administration Amlodipine Besylate 10 mg 03/24/18 10:00 03/29/18 10:34 Norvasc - GT 10 mg DAILY [facility] Administration Collagenase 1 applic 03/24/18 10:00 03/29/18 10:35 Santyl - TP 1 applic DAILY [facility] Administration Protocol Docusate Sodium 100 mg 03/23/18 19:18 03/29/18 10:34 Colace Liquid - GT 100 mg DAILY PRN Administration CONSTIPATION Emollient Ointment 1 applic 03/24/18 10:00 03/29/18 10:34 Aquaphor - TP 1 applic DAILY [facility] Administration Glucagon 1 mg 03/23/18 19:18 Glucagon - SQ Q15M PRN HYPOGLYCEMIA Sodium Chloride 250 mls @ 3,000 mls/hr 03/29/18 06:55 Normal Saline - IV 03/29/18 19:00 PRN PRN Hypotension during Dialysis Insulin Aspart 1 vial 03/23/18 22:00 03/29/18 11:03 Novolog Vial Sliding Scale - SQ Not Given ACHS [facility] Protocol Lactobacillus Acidophilus 1 tab 03/24/18 10:00 03/29/18 10:34 Bacid - GT 1 tab DAILY [facility] Administration Metoprolol Tartrate 25 mg 03/23/18 22:00 03/29/18 10:34 Lopressor - GT 25 mg BID [facility] Administration Mirtazapine 15 mg 03/23/18 22:00 03/28/18 22:05 Remeron - GT 15 mg HS [facility] Administration Senna 2 tab 03/23/18 19:18 Senna - PO HS PRN CONSTIPATION Vancomycin HCl 125 mg 03/25/18 17:30 03/28/18 11:15 Vancomycin Oral Solution PO 125 mg Q3D@1000 [facility] Administration Impression 1. ESRD 2. failed kidney transplant 3. hx DM 4. Hx HTN 5. sacral ulcer 6. post op infection 7. c.diff 8. a-fib 9. failure to thrive 10.malnutrition 11. anemia 12. GI bleed 13. PNA Plan - switched to a 2 k bath, will add 15 minutes to treatment - cont tube feeds - cont with HD as scheduled - recommend nepro for feeds - epogen for anemia - will follow Dr Winters
--- NOTE | 2018-03-29 16:27 | PN ---
Teaching Attending Note Name of Resident: Fernando Ricci ATTENDING PHYSICIAN STATEMENT I saw and evaluated the patient. I reviewed the resident's note and discussed the case with the resident. I agree with the resident's findings and plan as documented with exceptions below. SUBJECTIVE: Patient seen and examined, responds to name, wakes up and smiles. OBJECTIVE: Vital Signs Period Temp Pulse Resp BP Sys/Franco Pulse Ox Last 24 Hr 7 F-98.1 F 65-87 -18 102-138/58-76 96-96 Intake & Output 03/26/18 03/27/18 03/28/18 03/29/18 23:59 23:59 23:59 23:59 Intake Total 574 460 774 50 Balance 574 460 774 50 General: lying in bed, opens eyes, smiles, no acute distress Chest:decreased effort Abdomen:Soft, NT, PEG in place Extremities: contracted Home Medications Medication Instructions Recorded Lactobacillus Acidophilus [Bacid -] 1 tab PO DAILY #30 tab 02/11/18 Metoprolol Tartrate [Lopressor -] 25 mg PO BID #60 tablet 02/11/18 Miscellaneous Medical Supply 1 each SQ ASDIR #1 kit 02/16/18 [Glucometer Device] Miscellaneous Medical Supply 1 each SQ ASDIR #1 box 02/16/18 [Glucometer Test Strips #50] Miscellaneous Medical Supply 1 each SQ ASDIR #1 box 02/16/18 [Lancets] Miscellaneous Medical Supply 1 each ASDIR #1 misc 02/16/18 [Outpatient Order] Amino Acids/Protein Hydrolys 30 ml PO BID #30 liquid.pkt 02/22/18 [Prosource No Carb Liquid Pkt] Amlodipine Besylate [Norvasc -] 10 mg PO DAILY #30 tablet 02/22/18 Collagenase Clostridium Hist. 1 bottle TP DAILY #5 oint...g. 02/22/18 [Santyl] Gauze Bandage [Gauze] 1 each TP DAILY #30 bandage 02/22/18 Nut.tx.imp.renal Fxn,Lac-Reduc 237 ml PO DAILY #30 liquid 02/22/18 [Nepro Carb Steady] Foam Bandage [Allevyn Gentle 1 each TP DAILY #30 bandage 03/28/18 Border Heel] Mirtazapine [Remeron -] 15 mg GT HS #10 tablet 03/28/18 Silver Sulfadiaz/Foam Bandage 1 each TP DAILY #30 bandage 03/28/18 [Allevyn Ag Adhesive 5"X5"] Vancomycin Oral Solution 125 mg PO Q3D@1000 #9 ml 03/28/18 Laboratory Results - last 24 hr 03/28/18 03/28/18 03/29/18 17:24 20:48 05:41 WBC RBC Hgb Hct MCV MCH MCHC RDW Plt Count MPV Sodium Potassium Chloride Carbon Dioxide Anion Gap BUN Creatinine Creat Clearance w eGFR POC Glucometer 73 103 96 Random Glucose Calcium Phosphorus Total Bilirubin AST ALT Alkaline Phosphatase Total Protein Albumin 03/29/18 03/29/18 03/29/18 10:59 13:10 13:10 WBC 8.2 RBC 2.99 L Hgb 9.9 L Hct 29.0 L MCV 97.0 H MCH 33.1 MCHC 34.1 RDW 18.8 H Plt Count 225 D MPV 10.3 Sodium 132 L Potassium 5.4 H Chloride 95 L Carbon Dioxide 15 L Anion Gap 21 H BUN 55 H Creatinine 3.3 H Creat Clearance w eGFR 13.52 POC Glucometer 83 Random Glucose 56 L Calcium 8.5 Phosphorus 4.1 Total Bilirubin 0.3 AST 19 ALT 7 L Alkaline Phosphatase 161 H Total Protein 6.8 Albumin 0.0 L ASSESSMENT AND PLAN: 77 yo F with reportedly prolonged stay at [facility] for PNA, cdiff (requiring fecal transplant), 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 Tolerating tube feeds. Bolus feeds Twocal 1 can TID 50 ml water flush before and after each can of enteral feeding and 100 ml additional TID. Prosource BID and dysphagia nectar thick. Repeat CT with no signs of OM. Local wound care, frequent turning, not candidate for wound vac. Psych input noted. Continue remeron. Ethics committe meeting on 03/13, Son Aries reports patient clearly expressing "I want to live' in her lucid states and would want PEG and aggressive measures respecting patient wishes. Son Constantin in agreement of the same. Palliative care input noted. Nutrition consult. Continue HD. Epogen per renal. Vascular surgery input noted. outpatient follow up for HD access. DVTPPX SCDs, given recent large Diverticular bleed. Discussed with social work. D/c home with services. Social work making multiple attempts to reach family, will continue to follow.
--- NOTE | 2018-03-29 17:52 | PN ---
Physical Exam: SUBJECTIVE: Patient seen and examined at bedside. Responding to verbal stimuli. HD earlier today. No acute events overnight. OBJECTIVE: Vital Signs Period Temp Pulse Resp BP Sys/Franco Pulse Ox Last 24 Hr 7 F-98.1 F 65-87 18-18 102-138/54-76 96-96 GENERAL: Opens eyes upon verbal stimuli, cahcechtic, frail HEAD: NC/AT EYES: EOMI Conjunctiva are clear NECK: Supple No JVD LUNGS: Poor inspiratory effort HEART: RRR No MRG appreciated S1S2 ABDOMEN: NDNT, PEG in place, no erythema around site EXTREMITIES: Diffuse wasting, frail Laboratory Results - last 24 hr 03/28/18 03/29/18 03/29/18 20:48 05:41 10:59 WBC RBC Hgb Hct MCV MCH MCHC RDW Plt Count MPV Sodium Potassium Chloride Carbon Dioxide Anion Gap BUN Creatinine Creat Clearance w eGFR POC Glucometer 103 96 83 Random Glucose Calcium Phosphorus Total Bilirubin AST ALT Alkaline Phosphatase Total Protein Albumin 03/29/18 03/29/18 03/29/18 13:10 13:10 16:30 WBC 8.2 RBC 2.99 L Hgb 9.9 L Hct 29.0 L MCV 97.0 H MCH 33.1 MCHC 34.1 RDW 18.8 H Plt Count 225 D MPV 10.3 Sodium 132 L Potassium 5.4 H Chloride 95 L Carbon Dioxide 15 L Anion Gap 21 H BUN 55 H Creatinine 3.3 H Creat Clearance w eGFR 13.52 POC Glucometer 125 Random Glucose 56 L Calcium 8.5 Phosphorus 4.1 Total Bilirubin 0.3 AST 19 ALT 7 L Alkaline Phosphatase 161 H Total Protein 6.8 Albumin 0.0 L Active Medications Generic Name Dose Route Start Last Admin Trade Name Freq PRN Reason Stop Dose Admin Acetaminophen 650 mg 03/23/18 19:18 03/27/18 12:13 Tylenol Oral Solution - GT 650 mg Q6H PRN Administration FEVER Amino Acids 30 ml 03/26/18 17:30 03/29/18 16:47 Prosource No Carb Liquid Pkt GT 30 ml BID@0800,1730 [facility] Administration Amlodipine Besylate 10 mg 03/24/18 10:00 03/29/18 10:34 Norvasc - GT 10 mg DAILY [facility] Administration Collagenase 1 applic 03/24/18 10:00 03/29/18 10:35 Santyl - TP 1 applic DAILY [facility] Administration Protocol Docusate Sodium 100 mg 03/23/18 19:18 03/29/18 10:34 Colace Liquid - GT 100 mg DAILY PRN Administration CONSTIPATION Emollient Ointment 1 applic 03/24/18 10:00 03/29/18 10:34 Aquaphor - TP 1 applic DAILY [facility] Administration Glucagon 1 mg 03/23/18 19:18 Glucagon - SQ Q15M PRN HYPOGLYCEMIA Sodium Chloride 250 mls @ 3,000 mls/hr 03/29/18 06:55 Normal Saline - IV 03/29/18 19:00 PRN PRN Hypotension during Dialysis Insulin Aspart 1 vial 03/23/18 22:00 03/29/18 16:34 Novolog Vial Sliding Scale - SQ Not Given ACHS [facility] Protocol Lactobacillus Acidophilus 1 tab 03/24/18 10:00 03/29/18 10:34 Bacid - GT 1 tab DAILY [facility] Administration Metoprolol Tartrate 25 mg 03/23/18 22:00 03/29/18 10:34 Lopressor - GT 25 mg BID [facility] Administration Mirtazapine 15 mg 03/23/18 22:00 03/28/18 22:05 Remeron - GT 15 mg HS [facility] Administration Senna 2 tab 03/23/18 19:18 Senna - PO HS PRN CONSTIPATION Vancomycin HCl 125 mg 03/25/18 17:30 03/28/18 11:15 Vancomycin Oral Solution PO 125 mg Q3D@1000 [facility] Administration ASSESSMENT/PLAN: Patient is a 77 year old female with history of ESRD on HD Mon, Wed, Sun, s/p kidney transplant 10/08, diabetes mellitus, hypertension, Afib not on anticoagulation due to GI bleed on prior admission, recently discharged from [facility], presents for complaint of sacral ulcer, requiring wound care. #Malnutrition Tolerating tube feeds. Bolus feeds Twocal 1 can TID 50 ml water flush before and after each can of enteral feeding and 100 ml additional TID. -Social Work on board and has reached out to family to confirm. #Stage IV sacral decubitus ulcer -Surgery--> Santyl to sacrum daily, Alleven over sacrum, Alleven over b/l heels , Offload pressure areas with frequent repositioning, 02/26/18 CT Abd/Pelvis--> No CT Evidence of osteomyelitis. #ESRD on hemodialysis -Nephrology-Dr Winters on board. - Epogen per renal. -HD as outpatient. Will attend [facility] -HD today 03/29/18---> 1.5 KG WT REMOVED #Hypoglycemia -Glucagon Q15 min SQ PRN hypoglycemia #C. Difficile infection -Vanco 125 po every 2 days per week for 2 weeks. -Contact precautions #Atrial fibrillation -Lopressor 25 po bid -No AC at this time due to h/o G.I bleed on last admission. #Hypertension -Continue Norvasc 10 mg PO daily #FEN No I.V access, no fluids Monitor electrolytes Tube Feeds. Per RD--> Resuming Dysphagia Renal/chopped/nectar thick liquids PO diet Prophylaxis No anticoagulation in light of G.I bleed on previous admission. Disposition- Per Social Work: Multiple attempts to contact family with no success. Visit type - Emergency Visit Emergency Visit: Yes ED Registration Date: 02/27/18 Care time: The patient presented to the Emergency Department on the above date and was hospitalized for further evaluation of their emergent condition. - New Patient This patient is new to me today: No - Critical Care Critical Care patient: No - Discharge Referral Referred to [facility] Med P.C.: No
[2018-03-29] MEDS: MIRTAZAPINE 15 MG TABLET (FP) GT SCH (21:25)
[2018-03-30] MEDS: INSULIN SLIDING SCALE (NOVOLOG) 1 VIAL SQ SCH ×4 (06:23→22:09)
--- NOTE | 2018-03-30 08:51 | PN ---
Teaching Attending Note Name of Resident: Fernando Ricci ATTENDING PHYSICIAN STATEMENT I saw and evaluated the patient. I reviewed the resident's note and discussed the case with the resident. I agree with the resident's findings and plan as documented with exceptions below. SUBJECTIVE: Patient seen and examined. opens eyes, minimal conversation. OBJECTIVE: Vital Signs Period Temp Pulse Resp BP Sys/Franco Pulse Ox Last 24 Hr 7 F-98.4 F 65-87 18-18 102-154/54-77 95-96 Intake & Output 03/27/18 03/28/18 03/29/18 03/30/18 23:59 23:59 23:59 23:59 Intake Total 774 863 8453 50 Balance 617 460 0497 50 General: lying in bed in no acute distress Chest: poor effort Abdomen:Soft, PEG in place, NT Extremities: contractures Home Medications Medication Instructions Recorded Lactobacillus Acidophilus [Bacid -] 1 tab PO DAILY #30 tab 02/11/18 Metoprolol Tartrate [Lopressor -] 25 mg PO BID #60 tablet 02/11/18 Miscellaneous Medical Supply 1 each SQ ASDIR #1 kit 02/16/18 [Glucometer Device] Miscellaneous Medical Supply 1 each SQ ASDIR #1 box 02/16/18 [Glucometer Test Strips #50] Miscellaneous Medical Supply 1 each SQ ASDIR #1 box 02/16/18 [Lancets] Miscellaneous Medical Supply 1 each MC ASDIR #1 misc 02/16/18 [Outpatient Order] Amino Acids/Protein Hydrolys 30 ml PO BID #30 liquid.pkt 02/22/18 [Prosource No Carb Liquid Pkt] Amlodipine Besylate [Norvasc -] 10 mg PO DAILY #30 tablet 02/22/18 Collagenase Clostridium Hist. 1 bottle TP DAILY #5 oint...g. 02/22/18 [Santyl] Gauze Bandage [Gauze] 1 each TP DAILY #30 bandage 02/22/18 Nut.tx.imp.renal Fxn,Lac-Reduc 237 ml PO DAILY #30 liquid 02/22/18 [Nepro Carb Steady] Foam Bandage [Allevyn Gentle 1 each TP DAILY #30 bandage 03/28/18 Border Heel] Mirtazapine [Remeron -] 15 mg GT HS #10 tablet 03/28/18 Silver Sulfadiaz/Foam Bandage 1 each TP DAILY #30 bandage 03/28/18 [Biomodavyn Ag Adhesive 5"X5"] Vancomycin Oral Solution 125 mg PO Q3D@1000 #9 ml 03/28/18 Active Medications Acetaminophen (Tylenol Oral Solution -) 650 mg GT Q6H PRN PRN Reason: FEVER Last Admin: 03/27/18 12:13 Dose: 650 mg Amino Acids (Prosource No Carb Liquid Pkt) 30 ml GT BID@0800,1730 [facility] Last Admin: 03/29/18 16:47 Dose: 30 ml Amlodipine Besylate (Norvasc -) 10 mg GT DAILY [facility] Last Admin: 03/29/18 10:34 Dose: 10 mg Collagenase (Santyl -) 1 applic TP DAILY [facility]; Protocol Last Admin: 03/29/18 10:35 Dose: 1 applic Docusate Sodium (Colace Liquid -) 100 mg GT DAILY PRN PRN Reason: CONSTIPATION Last Admin: 03/29/18 10:34 Dose: 100 mg Emollient Ointment (Aquaphor -) 1 applic TP DAILY [facility] Last Admin: 03/29/18 10:34 Dose: 1 applic Glucagon (Glucagon -) 1 mg SQ Q15M PRN PRN Reason: HYPOGLYCEMIA Insulin Aspart (Novolog Vial Sliding Scale -) 1 vial SQ ACHS [facility]; Protocol Last Admin: 03/30/18 06:23 Dose: Not Given Lactobacillus Acidophilus (Bacid -) 1 tab GT DAILY [facility] Last Admin: 03/29/18 10:34 Dose: 1 tab Metoprolol Tartrate (Lopressor -) 25 mg GT BID [facility] Last Admin: 03/29/18 21:24 Dose: 25 mg Mirtazapine (Remeron -) 15 mg GT HS [facility] Last Admin: 03/29/18 21:25 Dose: 15 mg Senna (Senna -) 2 tab PO HS PRN PRN Reason: CONSTIPATION Vancomycin HCl (Vancomycin Oral Solution) 125 mg PO Q3D@1000 [facility] Last Admin: 03/28/18 11:15 Dose: 125 mg Laboratory Results - last 24 hr 03/29/18 03/29/18 03/29/18 10:59 13:10 13:10 WBC 8.2 RBC 2.99 L Hgb 9.9 L Hct 29.0 L MCV 97.0 H MCH 33.1 MCHC 34.1 RDW 18.8 H Plt Count 225 D MPV 10.3 Sodium 132 L Potassium 5.4 H Chloride 95 L Carbon Dioxide 15 L Anion Gap 21 H BUN 55 H Creatinine 3.3 H Creat Clearance w eGFR 13.52 POC Glucometer 83 Random Glucose 56 L Calcium 8.5 Phosphorus 4.1 Total Bilirubin 0.3 AST 19 ALT 7 L Alkaline Phosphatase 161 H Total Protein 6.8 Albumin 0.0 L 03/29/18 03/29/18 03/30/18 16:30 21:23 05:22 WBC RBC Hgb Hct MCV MCH MCHC RDW Plt Count MPV Sodium Potassium Chloride Carbon Dioxide Anion Gap BUN Creatinine Creat Clearance w eGFR POC Glucometer 125 96 98 Random Glucose Calcium Phosphorus Total Bilirubin AST ALT Alkaline Phosphatase Total Protein Albumin ASSESSMENT AND PLAN: 77 yo F with reportedly prolonged stay at [facility] for PNA, cdiff (requiring fecal transplant), 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 Tolerating tube feeds. Bolus feeds Twocal 1 can TID 50 ml water flush before and after each can of enteral feeding and 100 ml additional TID. Prosource BID and dysphagia nectar thick. Repeat CT with no signs of OM. Local wound care, frequent turning, not candidate for wound vac. Psych input noted. Continue remeron. Ethics committe meeting on 03/13, Son Aries reports patient clearly expressing "I want to live' in her lucid states and would want PEG and aggressive measures respecting patient wishes. Son Constantin in agreement of the same. Palliative care input noted. Nutrition consult. Continue HD. Epogen per renal. Vascular surgery input noted. outpatient follow up for HD access. DVTPPX SCDs, given recent large Diverticular bleed. Patient is medically appropriate for d/c. However social work unable to reach family. Will continue to attempt.
[2018-03-30] MEDS ORDERED: PT OWN MED DRAWER 7, Y5N ONE (10:00)
[2018-03-30] MEDS: LACTOBACILLUS ACIDOPHILUS 1 TABLET GT SCH (10:05)
[2018-03-30] MEDS: amLODIPine BESYLATE 10 MG TABLET (FP) GT SCH (10:05)
[2018-03-30] MEDS: AMINO ACIDS/PROTEIN HYDROLYS 30 ML LIQUID.PKT GT SCH ×2 (10:05→17:21)
[2018-03-30] MEDS: METOPROLOL TARTRATE 25 MG TABLET (FP) GT SCH ×2 (10:05→22:09)
[2018-03-30] MEDS: COLLAGENASE CLOSTRIDIUM HIST. 30 GRAMS TUBE TP SCH (10:06)
[2018-03-30] MEDS: MINERAL OIL/PET HY-PHL TOPICAL OINTMENT 454 GM JAR TP SCH (10:06)
--- NOTE | 2018-03-30 12:47 | PN ---
Physical Exam: SUBJECTIVE: Patient seen and examined at bedside. Two episodes of vomiting yesterday evening. OBJECTIVE: Vital Signs Period Temp Pulse Resp BP Sys/Franco Pulse Ox Last 24 Hr 7 F-98.4 F 65-87 18-18 102-154/54-77 95 GENERAL: Responds to questioning. NAD. No facial grimacing HEAD: NC/AT EYES: EOMI Conjunctiva are clear NECK: Supple No JVD LUNGS:CTA B/L, inspiratory effort better this am HEART: RRR No MRG appreciated S1S2 ABDOMEN: NDNT, PEG in place, no erythema around site EXTREMITIES: Diffuse wasting, frail Laboratory Results - last 24 hr 03/29/18 03/29/18 03/29/18 13:10 13:10 16:30 WBC 8.2 RBC 2.99 L Hgb 9.9 L Hct 29.0 L MCV 97.0 H MCH 33.1 MCHC 34.1 RDW 18.8 H Plt Count 225 D MPV 10.3 Sodium 132 L Potassium 5.4 H Chloride 95 L Carbon Dioxide 15 L Anion Gap 21 H BUN 55 H Creatinine 3.3 H Creat Clearance w eGFR 13.52 POC Glucometer 125 Random Glucose 56 L Calcium 8.5 Phosphorus 4.1 Total Bilirubin 0.3 AST 19 ALT 7 L Alkaline Phosphatase 161 H Total Protein 6.8 Albumin 0.0 L 03/29/18 03/30/18 03/30/18 21:23 05:22 11:20 WBC RBC Hgb Hct MCV MCH MCHC RDW Plt Count MPV Sodium Potassium Chloride Carbon Dioxide Anion Gap BUN Creatinine Creat Clearance w eGFR POC Glucometer 96 98 98 Random Glucose Calcium Phosphorus Total Bilirubin AST ALT Alkaline Phosphatase Total Protein Albumin Active Medications Generic Name Dose Route Start Last Admin Trade Name Freq PRN Reason Stop Dose Admin Acetaminophen 650 mg 03/23/18 19:18 03/27/18 12:13 Tylenol Oral Solution - GT 650 mg Q6H PRN Administration FEVER Amino Acids 30 ml 03/26/18 17:30 03/30/18 10:05 Prosource No Carb Liquid Pkt GT 30 ml BID@0800,1730 [facility] Administration Amlodipine Besylate 10 mg 03/24/18 10:00 03/30/18 10:05 Norvasc - GT 10 mg DAILY [facility] Administration Collagenase 1 applic 03/24/18 10:00 03/30/18 10:06 Santyl - TP 1 applic DAILY [facility] Administration Protocol Docusate Sodium 100 mg 03/23/18 19:18 03/29/18 10:34 Colace Liquid - GT 100 mg DAILY PRN Administration CONSTIPATION Emollient Ointment 1 applic 03/24/18 10:00 03/30/18 10:06 Aquaphor - TP 1 applic DAILY [facility] Administration Glucagon 1 mg 03/23/18 19:18 Glucagon - SQ Q15M PRN HYPOGLYCEMIA Insulin Aspart 1 vial 03/23/18 22:00 03/30/18 12:05 Novolog Vial Sliding Scale - SQ Not Given ACHS [facility] Protocol Lactobacillus Acidophilus 1 tab 03/24/18 10:00 03/30/18 10:05 Bacid - GT 1 tab DAILY [facility] Administration Metoprolol Tartrate 25 mg 03/23/18 22:00 03/30/18 10:05 Lopressor - GT 25 mg BID [facility] Administration Mirtazapine 15 mg 03/23/18 22:00 03/29/18 21:25 Remeron - GT 15 mg HS [facility] Administration Senna 2 tab 03/23/18 19:18 Senna - PO HS PRN CONSTIPATION Vancomycin HCl 125 mg 03/25/18 17:30 03/28/18 11:15 Vancomycin Oral Solution PO 125 mg Q3D@1000 [facility] Administration ASSESSMENT/PLAN: Patient is a 77 year old female with history of ESRD on HD Mon, Wed, Sun, s/p kidney transplant 10/08, diabetes mellitus, hypertension, Afib not on anticoagulation due to GI bleed on prior admission, recently discharged from [facility], presents for complaint of sacral ulcer, requiring wound care. #Malnutrition Tolerating tube feeds. Bolus feeds Twocal 1 can TID 50 ml water flush before and after each can of enteral feeding and 100 ml additional TID. -Social Work on board and has reached out to family to confirm. -[facility] aware faxed d/c summary and HD flowsheets to [facility] to reinstate patient's Dialysis schedule. Pt set up for HD at [facility]. #Stage IV sacral decubitus ulcer -Surgery--> Santyl to sacrum daily, Alleven over sacrum, Alleven over b/l heels , Offload pressure areas with frequent repositioning, 02/26/18 CT Abd/Pelvis--> No CT Evidence of osteomyelitis. #ESRD on hemodialysis -Nephrology-Dr Winters on board. - Epogen per renal. -HD as outpatient. Will attend [facility] -HD 03/29/18---> 1.5 KG WT REMOVED -Potassium 03/29/18 5.4. #Hypoglycemia -Glucagon Q15 min SQ PRN hypoglycemia #C. Difficile infection -Vanco 125 po every 2 days per week for 2 weeks. -Contact precautions #Atrial fibrillation -Lopressor 25 po bid -No AC at this time due to h/o G.I bleed on last admission. #Hypertension -Continue Norvasc 10 mg PO daily #FEN No I.V access, no fluids Monitor electrolytes Tube Feeds. Per RD--> Resuming Dysphagia Renal/chopped/nectar thick liquids PO diet Prophylaxis No anticoagulation in light of G.I bleed on previous admission. Disposition- Per Social Work: Multiple attempts to contact family with no success. Visit type - Emergency Visit Emergency Visit: Yes ED Registration Date: 02/27/18 Care time: The patient presented to the Emergency Department on the above date and was hospitalized for further evaluation of their emergent condition. - New Patient This patient is new to me today: No - Critical Care Critical Care patient: No - Discharge Referral Referred to [facility] Med P.C.: No
--- NOTE | 2018-03-30 15:12 | PN ---
Progress Note, Physician History of Present Illness: Pt seen and examined at bedside. She is awake and appears comfortable. She denies shortness of breath. - Current Medication List Current Medications: Active Medications Acetaminophen (Tylenol Oral Solution -) 650 mg GT Q6H PRN PRN Reason: FEVER Last Admin: 03/27/18 12:13 Dose: 650 mg Amino Acids (Prosource No Carb Liquid Pkt) 30 ml GT BID@0800,1730 [facility] Last Admin: 03/30/18 10:05 Dose: 30 ml Amlodipine Besylate (Norvasc -) 10 mg GT DAILY [facility] Last Admin: 03/30/18 10:05 Dose: 10 mg Collagenase (Santyl -) 1 applic TP DAILY [facility]; Protocol Last Admin: 03/30/18 10:06 Dose: 1 applic Docusate Sodium (Colace Liquid -) 100 mg GT DAILY PRN PRN Reason: CONSTIPATION Last Admin: 03/29/18 10:34 Dose: 100 mg Emollient Ointment (Aquaphor -) 1 applic TP DAILY [facility] Last Admin: 03/30/18 10:06 Dose: 1 applic Glucagon (Glucagon -) 1 mg SQ Q15M PRN PRN Reason: HYPOGLYCEMIA Insulin Aspart (Novolog Vial Sliding Scale -) 1 vial SQ ACHS [facility]; Protocol Last Admin: 03/30/18 12:05 Dose: Not Given Lactobacillus Acidophilus (Bacid -) 1 tab GT DAILY [facility] Last Admin: 03/30/18 10:05 Dose: 1 tab Metoprolol Tartrate (Lopressor -) 25 mg GT BID [facility] Last Admin: 03/30/18 10:05 Dose: 25 mg Mirtazapine (Remeron -) 15 mg GT HS [facility] Last Admin: 03/29/18 21:25 Dose: 15 mg Senna (Senna -) 2 tab PO HS PRN PRN Reason: CONSTIPATION Vancomycin HCl (Vancomycin Oral Solution) 125 mg PO Q3D@1000 [facility] Last Admin: 03/28/18 11:15 Dose: 125 mg - Objective Vital Signs: Vital Signs Temperature 98.0 F 03/30/18 06:00 Pulse Rate 78 03/30/18 06:00 Respiratory Rate 18 03/30/18 06:00 Blood Pressure 154/69 03/30/18 06:00 O2 Sat by Pulse Oximetry (%) 95 03/29/18 21:00 Constitutional: Yes: Calm Eyes: Yes: Conjunctiva Clear HENT: Yes: Atraumatic Cardiovascular: Yes: S1, S2 Respiratory: Yes: CTA Bilaterally Gastrointestinal: Yes: Other (peg) Musculoskeletal: Yes: Muscle Weakness Edema: No Neurological: Yes: Confusion Labs: CBC, BMP 03/29/18 13:10 03/29/18 13:10 INR, PTT INR 1.13 (0.83-1.09) H 03/18/18 06:00 Problem List - Problems (1) ESRD (end stage renal disease) on dialysis Code(s): N18.6 - END STAGE RENAL DISEASE; Z99.2 - DEPENDENCE ON RENAL DIALYSIS (2) Sacral decubitus ulcer Code(s): L89.159 - PRESSURE ULCER OF SACRAL REGION, UNSPECIFIED STAGE Qualifiers: Pressure injury stage: stage 4 Qualified Code(s): L89.154 - Pressure ulcer of sacral region, stage 4 Assessment/Plan Current Medications Generic Name Dose Route Start Last Admin Trade Name Freq PRN Reason Stop Dose Admin Acetaminophen 650 mg 03/23/18 19:18 03/27/18 12:13 Tylenol Oral Solution - GT 650 mg Q6H PRN Administration FEVER Amino Acids 30 ml 03/26/18 17:30 03/30/18 10:05 Prosource No Carb Liquid Pkt GT 30 ml BID@0800,1730 [facility] Administration Amlodipine Besylate 10 mg 03/24/18 10:00 03/30/18 10:05 Norvasc - GT 10 mg DAILY [facility] Administration Collagenase 1 applic 03/24/18 10:00 03/30/18 10:06 Santyl - TP 1 applic DAILY [facility] Administration Protocol Docusate Sodium 100 mg 03/23/18 19:18 03/29/18 10:34 Colace Liquid - GT 100 mg DAILY PRN Administration CONSTIPATION Emollient Ointment 1 applic 03/24/18 10:00 03/30/18 10:06 Aquaphor - TP 1 applic DAILY [facility] Administration Glucagon 1 mg 03/23/18 19:18 Glucagon - SQ Q15M PRN HYPOGLYCEMIA Insulin Aspart 1 vial 03/23/18 22:00 03/30/18 12:05 Novolog Vial Sliding Scale - SQ Not Given ACHS [facility] Protocol Lactobacillus Acidophilus 1 tab 03/24/18 10:00 03/30/18 10:05 Bacid - GT 1 tab DAILY [facility] Administration Metoprolol Tartrate 25 mg 03/23/18 22:00 03/30/18 10:05 Lopressor - GT 25 mg BID [facility] Administration Mirtazapine 15 mg 03/23/18 22:00 03/29/18 21:25 Remeron - GT 15 mg HS [facility] Administration Senna 2 tab 03/23/18 19:18 Senna - PO HS PRN CONSTIPATION Vancomycin HCl 125 mg 03/25/18 17:30 03/28/18 11:15 Vancomycin Oral Solution PO 125 mg Q3D@1000 [facility] Administration Impression 1. ESRD 2. failed kidney transplant 3. hx DM 4. Hx HTN 5. sacral ulcer 6. post op infection 7. c.diff 8. a-fib 9. failure to thrive 10.malnutrition 11. anemia 12. GI bleed 13. PNA Plan - pt dialyzed yesterday - encourage PO intake - next HD on Sunday - recommend nepro for feeds if possible - epogen for anemia - will follow Dr Winters
[2018-03-30] MEDS: MIRTAZAPINE 15 MG TABLET (FP) GT SCH (22:09)
[2018-03-31] MEDS: INSULIN SLIDING SCALE (NOVOLOG) 1 VIAL SQ SCH ×4 (07:12→22:10)
[2018-03-31] MEDS: AMINO ACIDS/PROTEIN HYDROLYS 30 ML LIQUID.PKT GT SCH ×2 (08:45→17:49)
[2018-03-31] MEDS: METOPROLOL TARTRATE 25 MG TABLET (FP) GT SCH ×2 (09:02→21:36)
[2018-03-31] MEDS: amLODIPine BESYLATE 10 MG TABLET (FP) GT SCH (09:02)
[2018-03-31] MEDS: MINERAL OIL/PET HY-PHL TOPICAL OINTMENT 454 GM JAR TP SCH (09:02)
[2018-03-31] MEDS: LACTOBACILLUS ACIDOPHILUS 1 TABLET GT SCH (09:02)
[2018-03-31] MEDS: VANCOMYCIN 250 MG/5 ML ORAL SOLUTION PO SCH (09:02)
[2018-03-31] MEDS: COLLAGENASE CLOSTRIDIUM HIST. 30 GRAMS TUBE TP SCH (09:03)
--- NOTE | 2018-03-31 10:43 | PN ---
Physical Exam: SUBJECTIVE: Patient seen and examined, awake, responds to questions, no pain. OBJECTIVE: Vital Signs Period Temp Pulse Resp BP Sys/Franco Pulse Ox Last 24 Hr 97.1 F-98.2 F 70-96 18-20 136-151/53-86 100 GENERAL: cachectic female in bed in no acute distress Chest: decreased effort, no rales or wheezing Abdomen:soft, NT, PEG in place Extremities: cachectic, in contractures neck: soft, supple Laboratory Results - last 24 hr 03/30/18 03/30/18 03/30/18 11:20 16:29 22:08 POC Glucometer 98 149 126 03/31/18 06:46 POC Glucometer 99 Active Medications Generic Name Dose Route Start Last Admin Trade Name Freq PRN Reason Stop Dose Admin Acetaminophen 650 mg 03/23/18 19:18 03/27/18 12:13 Tylenol Oral Solution - GT 650 mg Q6H PRN Administration FEVER Amino Acids 30 ml 03/26/18 17:30 03/31/18 08:45 Prosource No Carb Liquid Pkt [facility] 30 ml BID@0800,1730 [facility] Administration Amlodipine Besylate 10 mg 03/24/18 10:00 03/31/18 09:02 Norvasc - GT 10 mg DAILY [facility] Administration Collagenase 1 applic 03/24/18 10:00 03/31/18 09:03 Santyl - TP 1 applic DAILY [facility] Administration Protocol Docusate Sodium 100 mg 03/23/18 19:18 03/29/18 10:34 Colace Liquid - GT 100 mg DAILY PRN Administration CONSTIPATION Emollient Ointment 1 applic 03/24/18 10:00 03/31/18 09:02 Aquaphor - TP 1 applic DAILY [facility] Administration Glucagon 1 mg 03/23/18 19:18 Glucagon - SQ Q15M PRN HYPOGLYCEMIA Insulin Aspart 1 vial 03/23/18 22:00 03/31/18 07:12 Novolog Vial Sliding Scale - SQ Not Given ACHS [facility] Protocol Lactobacillus Acidophilus 1 tab 03/24/18 10:00 03/31/18 09:02 Bacid - GT 1 tab DAILY [facility] Administration Metoprolol Tartrate 25 mg 03/23/18 22:00 03/31/18 09:02 Lopressor - GT 25 mg BID [facility] Administration Mirtazapine 15 mg 03/23/18 22:00 03/30/18 22:09 Remeron - GT 15 mg HS [facility] Administration Senna 2 tab 03/23/18 19:18 Senna - PO HS PRN CONSTIPATION Vancomycin HCl 125 mg 03/25/18 17:30 03/31/18 09:02 Vancomycin Oral Solution PO 125 mg Q3D@1000 [facility] Administration ASSESSMENT/PLAN: 77 yo F with reportedly prolonged stay at [facility] for PNA, cdiff (requiring fecal transplant), 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 Will space out tube feeds (too close lunch and dinner hours) s/p PEG 03/18. Tolerating tube feeds. Bolus feeds Twocal 1 can TID 50 ml water flush before and after each can of enteral feeding and 100 ml additional TID. Prosource BID and dysphagia nectar thick. Repeat CT with no signs of OM. Local wound care, frequent turning, not candidate for wound vac. Psych input noted. Continue remeron. Ethics committe meeting on 03/13, Son Aries reports patient clearly expressing "I want to live' in her lucid states and would want PEG and aggressive measures respecting patient wishes. Son Constantin in agreement of the same. Palliative care input noted. Nutrition consult. Continue HD. Epogen per renal. Vascular surgery input noted. outpatient follow up for HD access. DVTPPX SCDs, given recent large Diverticular bleed. Patient is medically appropriate for d/c. However social work unable to reach family. Multiple attempts have been made to reach son/family, unsuccessful. Will continue to attempt. Visit type - Emergency Visit Emergency Visit: Yes ED Registration Date: 02/27/18 Care time: The patient presented to the Emergency Department on the above date and was hospitalized for further evaluation of their emergent condition. - New Patient This patient is new to me today: No - Critical Care Critical Care patient: No - Discharge Referral Referred to [facility] Med P.C.: No
[2018-03-31] MEDS ORDERED: SODIUM CHLORIDE 250 ML IV PRN (15:39)
--- NOTE | 2018-03-31 15:39 | PN ---
Progress Note, Physician History of Present Illness: Pt seen and examined at bedside. She is awake and appears comfortable. - Current Medication List Current Medications: Active Medications Acetaminophen (Tylenol Oral Solution -) 650 mg GT Q6H PRN PRN Reason: FEVER Last Admin: 03/27/18 12:13 Dose: 650 mg Amino Acids (Prosource No Carb Liquid Pkt) 30 ml GT BID@0800,1730 [facility] Last Admin: 03/31/18 08:45 Dose: 30 ml Amlodipine Besylate (Norvasc -) 10 mg GT DAILY [facility] Last Admin: 03/31/18 09:02 Dose: 10 mg Collagenase (Santyl -) 1 applic TP DAILY [facility]; Protocol Last Admin: 03/31/18 09:03 Dose: 1 applic Docusate Sodium (Colace Liquid -) 100 mg GT DAILY PRN PRN Reason: CONSTIPATION Last Admin: 03/29/18 10:34 Dose: 100 mg Emollient Ointment (Aquaphor -) 1 applic TP DAILY [facility] Last Admin: 03/31/18 09:02 Dose: 1 applic Glucagon (Glucagon -) 1 mg SQ Q15M PRN PRN Reason: HYPOGLYCEMIA Insulin Aspart (Novolog Vial Sliding Scale -) 1 vial SQ ACHS [facility]; Protocol Last Admin: 03/31/18 12:10 Dose: Not Given Lactobacillus Acidophilus (Bacid -) 1 tab GT DAILY [facility] Last Admin: 03/31/18 09:02 Dose: 1 tab Metoprolol Tartrate (Lopressor -) 25 mg GT BID [facility] Last Admin: 03/31/18 09:02 Dose: 25 mg Mirtazapine (Remeron -) 15 mg GT HS [facility] Last Admin: 03/30/18 22:09 Dose: 15 mg Senna (Senna -) 2 tab PO HS PRN PRN Reason: CONSTIPATION Vancomycin HCl (Vancomycin Oral Solution) 125 mg PO Q3D@1000 [facility] Last Admin: 03/31/18 09:02 Dose: 125 mg - Objective Vital Signs: Vital Signs Temperature 97.6 F 03/31/18 14:56 Pulse Rate 74 03/31/18 14:56 Respiratory Rate 18 03/31/18 14:56 Blood Pressure 142/75 03/31/18 14:56 O2 Sat by Pulse Oximetry (%) 100 03/30/18 21:00 Constitutional: Yes: Calm Eyes: Yes: Conjunctiva Clear HENT: Yes: Atraumatic Cardiovascular: Yes: S1, S2 Respiratory: Yes: CTA Bilaterally Gastrointestinal: Yes: Soft, Other (peg) Genitourinary: Yes: Incontinence Edema: No Neurological: Yes: Confusion Labs: CBC, BMP 03/29/18 13:10 03/29/18 13:10 INR, PTT INR 1.13 (0.83-1.09) H 03/18/18 06:00 Problem List - Problems (1) ESRD (end stage renal disease) on dialysis Code(s): N18.6 - END STAGE RENAL DISEASE; Z99.2 - DEPENDENCE ON RENAL DIALYSIS (2) Sacral decubitus ulcer Code(s): L89.159 - PRESSURE ULCER OF SACRAL REGION, UNSPECIFIED STAGE Qualifiers: Pressure injury stage: stage 4 Qualified Code(s): L89.154 - Pressure ulcer of sacral region, stage 4 Assessment/Plan Current Medications Generic Name Dose Route Start Last Admin Trade Name Freq PRN Reason Stop Dose Admin Acetaminophen 650 mg 03/23/18 19:18 03/27/18 12:13 Tylenol Oral Solution - GT 650 mg Q6H PRN Administration FEVER Amino Acids 30 ml 03/26/18 17:30 03/31/18 08:45 Prosource No Carb Liquid Pkt GT 30 ml BID@0800,1730 [facility] Administration Amlodipine Besylate 10 mg 03/24/18 10:00 03/31/18 09:02 Norvasc - GT 10 mg DAILY [facility] Administration Collagenase 1 applic 03/24/18 10:00 03/31/18 09:03 Santyl - TP 1 applic DAILY [facility] Administration Protocol Docusate Sodium 100 mg 03/23/18 19:18 03/29/18 10:34 Colace Liquid - GT 100 mg DAILY PRN Administration CONSTIPATION Emollient Ointment 1 applic 03/24/18 10:00 03/31/18 09:02 Aquaphor - TP 1 applic DAILY [facility] Administration Glucagon 1 mg 03/23/18 19:18 Glucagon - SQ Q15M PRN HYPOGLYCEMIA Insulin Aspart 1 vial 03/23/18 22:00 03/31/18 12:10 Novolog Vial Sliding Scale - SQ Not Given ACHS [facility] Protocol Lactobacillus Acidophilus 1 tab 03/24/18 10:00 03/31/18 09:02 Bacid - GT 1 tab DAILY [facility] Administration Metoprolol Tartrate 25 mg 03/23/18 22:00 03/31/18 09:02 Lopressor - GT 25 mg BID [facility] Administration Mirtazapine 15 mg 03/23/18 22:00 03/30/18 22:09 Remeron - GT 15 mg HS [facility] Administration Senna 2 tab 03/23/18 19:18 Senna - PO HS PRN CONSTIPATION Vancomycin HCl 125 mg 03/25/18 17:30 03/31/18 09:02 Vancomycin Oral Solution PO 125 mg Q3D@1000 [facility] Administration Impression 1. ESRD 2. failed kidney transplant 3. hx DM 4. Hx HTN 5. sacral ulcer 6. post op infection 7. c.diff 8. a-fib 9. failure to thrive 10.malnutrition 11. anemia 12. GI bleed 13. PNA Plan - HD in am - will order pre-hd labs - cont epo for anemia - cont tube feeds - will check potassium - will need placement - epogen for anemia - will follow Dr Winters
[2018-03-31] MEDS: ACETAMINOPHEN 650 MG/20.3 ML ORAL SOLUTION (CUPS) GT PRN (21:36)
[2018-03-31] MEDS: MIRTAZAPINE 15 MG TABLET (FP) GT SCH (21:36)
[2018-04-01] MEDS: INSULIN SLIDING SCALE (NOVOLOG) 1 VIAL SQ SCH ×4 (06:04→22:44)
--- NOTE | 2018-04-01 08:12 | PN ---
Teaching Attending Note Name of Resident: Fernando Ricci ATTENDING PHYSICIAN STATEMENT I saw and evaluated the patient. I reviewed the resident's note and discussed the case with the resident. I agree with the resident's findings and plan as documented with exceptions below. SUBJECTIVE: Patient seen and examined. Opens eyes, responds, no pain or new complaints. poor interaction noted. OBJECTIVE: Vital Signs Period Temp Pulse Resp BP Sys/Franco Pulse Ox Last 24 Hr 97.2 F-97.9 F 73-96 16-20 124-151/61-86 92-100 Intake & Output 03/29/18 03/30/18 03/31/18 04/01/18 23:59 23:59 23:59 23:59 Intake Total 6168 546 9216 Output Total 100 Balance 7353 179 0352 General: lying in bed, minimal interaction, no acute distress Chest: poor effort Abdomen:Soft, NT, PEG in place Extremities: contractures, no edema Active Medications Acetaminophen (Tylenol Oral Solution -) 650 mg GT Q6H PRN PRN Reason: FEVER Last Admin: 03/31/18 21:36 Dose: 650 mg Amino Acids (Prosource No Carb Liquid Pkt) 30 ml GT BID@0800,1730 [facility] Last Admin: 03/31/18 17:49 Dose: 30 ml Amlodipine Besylate (Norvasc -) 10 mg GT DAILY [facility] Last Admin: 03/31/18 09:02 Dose: 10 mg Collagenase (Santyl -) 1 applic TP DAILY [facility]; Protocol Last Admin: 03/31/18 09:03 Dose: 1 applic Docusate Sodium (Colace Liquid -) 100 mg GT DAILY PRN PRN Reason: CONSTIPATION Last Admin: 03/29/18 10:34 Dose: 100 mg Emollient Ointment (Aquaphor -) 1 applic TP DAILY [facility] Last Admin: 03/31/18 09:02 Dose: 1 applic Epoetin Abe (Procrit -) 10,000 unit IVPUSH ONCE ONE Stop: 04/01/18 15:40 Glucagon (Glucagon -) 1 mg SQ Q15M PRN PRN Reason: HYPOGLYCEMIA Sodium Chloride (Normal Saline -) 250 mls @ 3,000 mls/hr IV PRN PRN PRN Reason: Hypotension during Dialysis Stop: 04/01/18 15:39 Insulin Aspart (Novolog Vial Sliding Scale -) 1 vial SQ ACHS [facility]; Protocol Last Admin: 04/01/18 06:04 Dose: Not Given Lactobacillus Acidophilus (Bacid -) 1 tab GT DAILY [facility] Last Admin: 03/31/18 09:02 Dose: 1 tab Metoprolol Tartrate (Lopressor -) 25 mg GT BID [facility] Last Admin: 03/31/18 21:36 Dose: 25 mg Mirtazapine (Remeron -) 15 mg GT HS [facility] Last Admin: 03/31/18 21:36 Dose: 15 mg Senna (Senna -) 2 tab PO HS PRN PRN Reason: CONSTIPATION Vancomycin HCl (Vancomycin Oral Solution) 125 mg PO Q3D@1000 [facility] Last Admin: 03/31/18 09:02 Dose: 125 mg Laboratory Results - last 24 hr 03/31/18 03/31/18 03/31/18 12:02 16:23 21:43 POC Glucometer 89 83 150 04/01/18 05:35 POC Glucometer 95 ASSESSMENT AND PLAN: 77 yo F with reportedly prolonged stay at [facility] for PNA, cdiff (requiring fecal transplant), also with failed transplant kidney in 09/2017 s/p removal/off immunosuppressants on HD, GI diverticular bleed presented to the ER after sacral wound -Sacral wound -Severe malnutrition -Depression -Hypoglycemia, from poor oral intake -Recent PNA, likely aspiration, off abx -C difficile diarrhea, s/p vanco taper -Anemia -ESRD on HD via permacath, vein mapping done -Hypokalemia Plan: Episode of vomiting with feeds. Tube feeds spaced out. Discussed with nutrition. Aspiration precautions and head end elevation for now. s/p PEG 03/18. Bolus feeds Twocal 1 can TID 50 ml water flush before and after each can of enteral feeding and 100 ml additional TID. Prosource BID and dysphagia nectar thick. Repeat CT with no signs of OM. Local wound care, frequent turning, not candidate for wound vac. Psych input noted. Continue remeron. Ethics committe meeting on 03/13, Son Aries reports patient clearly expressing "I want to live' in her lucid states and would want PEG and aggressive measures respecting patient wishes. Son Constantin in agreement of the same. Palliative care input noted. Nutrition consult. Continue HD. Epogen per renal. Vascular surgery input noted. outpatient follow up for HD access. DVTPPX SCDs, given recent large Diverticular bleed. Patient is medically appropriate for d/c. However social work was unable to reach family. Multiple attempts have been made to reach son/family, today finally able to reach family. Plan for d/c home tomorrow with services
[2018-04-01] MEDS: AMINO ACIDS/PROTEIN HYDROLYS 30 ML LIQUID.PKT GT SCH ×2 (09:00→17:21)
[2018-04-01] MEDS ORDERED: PT OWN MED DRAWER 7, Y5N ONE (09:16)
[2018-04-01] MEDS: LACTOBACILLUS ACIDOPHILUS 1 TABLET GT SCH (09:18)
[2018-04-01] MEDS: METOPROLOL TARTRATE 25 MG TABLET (FP) GT SCH ×2 (09:18→22:43)
[2018-04-01] MEDS: amLODIPine BESYLATE 10 MG TABLET (FP) GT SCH (09:18)
[2018-04-01] MEDS: MINERAL OIL/PET HY-PHL TOPICAL OINTMENT 454 GM JAR TP SCH (11:21)
[2018-04-01] MEDS: COLLAGENASE CLOSTRIDIUM HIST. 30 GRAMS TUBE TP SCH (11:22)
--- NOTE | 2018-04-01 12:02 | PN ---
Physical Exam: SUBJECTIVE: Patient seen and examined at bedside. Episode of vomiting yesterday afternoon. No acute events overnight. OBJECTIVE: Vital Signs Period Temp Pulse Resp BP Sys/Franco Pulse Ox Last 24 Hr 97.2 F-97.7 F 73-89 16-20 124-144/61-80 92-93 GENERAL: Frail, cachechtic HEAD: NC/AT EYES: EOMI, Conjunctiva clear ENT: MMM NECK: Supple LUNGS: Poor inspiratory effort. HEART: RRR No MRG appreciated ABDOMEN: PEG in place, no erythema or signs of infection around site. Bowel sounds present. EXTREMITIES: Muscle atrophy, frail. Laboratory Results - last 24 hr 03/31/18 03/31/18 03/31/18 12:02 16:23 21:43 POC Glucometer 89 83 150 04/01/18 04/01/18 05:35 11:27 POC Glucometer 95 79 Active Medications Generic Name Dose Route Start Last Admin Trade Name Freq PRN Reason Stop Dose Admin Acetaminophen 650 mg 03/23/18 19:18 03/31/18 21:36 Tylenol Oral Solution - GT 650 mg Q6H PRN Administration FEVER Amino Acids 30 ml 03/26/18 17:30 04/01/18 09:00 Prosource No Carb Liquid Pkt GT 30 ml BID@0800,1730 [facility] Administration Amlodipine Besylate 10 mg 03/24/18 10:00 04/01/18 09:18 Norvasc - GT 10 mg DAILY [facility] Administration Collagenase 1 applic 03/24/18 10:00 04/01/18 11:22 Santyl - TP Not Given DAILY [facility] Protocol Docusate Sodium 100 mg 03/23/18 19:18 03/29/18 10:34 Colace Liquid - GT 100 mg DAILY PRN Administration CONSTIPATION Emollient Ointment 1 applic 03/24/18 10:00 04/01/18 11:21 Aquaphor - TP Not Given DAILY [facility] Epoetin Abe 10,000 unit 04/01/18 15:39 Procrit - IVPUSH 04/01/18 15:40 ONCE ONE Glucagon 1 mg 03/23/18 19:18 Glucagon - SQ Q15M PRN HYPOGLYCEMIA Sodium Chloride 250 mls @ 3,000 mls/hr 03/31/18 15:39 Normal Saline - IV 04/01/18 15:39 PRN PRN Hypotension during Dialysis Insulin Aspart 1 vial 03/23/18 22:00 04/01/18 06:04 Novolog Vial Sliding Scale - SQ Not Given ACHS [facility] Protocol Lactobacillus Acidophilus 1 tab 03/24/18 10:00 04/01/18 09:18 Bacid - GT 1 tab DAILY [facility] Administration Metoprolol Tartrate 25 mg 03/23/18 22:00 04/01/18 09:18 Lopressor - GT 25 mg BID [facility] Administration Mirtazapine 15 mg 03/23/18 22:00 03/31/18 21:36 Remeron - GT 15 mg HS [facility] Administration Senna 2 tab 03/23/18 19:18 Senna - PO HS PRN CONSTIPATION Vancomycin HCl 125 mg 03/25/18 17:30 03/31/18 09:02 Vancomycin Oral Solution PO 125 mg Q3D@1000 [facility] Administration ASSESSMENT/PLAN: Patient is a 77 year old female with history of ESRD on HD Mon, Wed, Sun, s/p kidney transplant 10/08, diabetes mellitus, hypertension, Afib not on anticoagulation due to GI bleed on prior admission, recently discharged from [facility], presents for complaint of sacral ulcer, requiring wound care. #Malnutrition Tolerating tube feeds. Bolus feeds Twocal 1 can TID 50 ml water flush before and after each can of enteral feeding and 100 ml additional TID. -Social Work on board and has reached out to family to confirm. -[facility] aware faxed d/c summary and HD flowsheets to [facility] to reinstate patient's Dialysis schedule. Pt set up for HD at [facility]. #Stage IV sacral decubitus ulcer -Surgery--> Santyl to sacrum daily, Alleven over sacrum, Alleven over b/l heels , Offload pressure areas with frequent repositioning, 02/26/18 CT Abd/Pelvis--> No CT Evidence of osteomyelitis. #ESRD on hemodialysis -Nephrology-Dr Winters on board. - Epogen per renal. -HD as outpatient. Will attend [facility] -HD 03/29/18---> 1.5 KG WT REMOVED -Potassium 03/29/18 5.4. #C. Difficile infection -Vanco 125 po every 2 days per week for 2 weeks. -Contact precautions #Atrial fibrillation -Lopressor 25 po bid -No AC at this time due to h/o G.I bleed on last admission. #Hypertension -Continue Norvasc 10 mg PO daily #FEN No I.V access, no fluids Monitor electrolytes Tube Feeds. Per RD--> Dysphagia Renal/chopped/nectar thick liquids PO diet Prophylaxis No anticoagulation in light of G.I bleed on previous admission. Disposition- Pending DC tomorrow Visit type - Emergency Visit Emergency Visit: Yes ED Registration Date: 02/27/18 Care time: The patient presented to the Emergency Department on the above date and was hospitalized for further evaluation of their emergent condition. - New Patient This patient is new to me today: No - Critical Care Critical Care patient: No - Discharge Referral Referred to [facility] Med P.C.: No
--- NOTE | 2018-04-01 14:30 | PN ---
Progress Note, Physician History of Present Illness: Pt seen and examined at bedside. She appears comfortable. - Current Medication List Current Medications: Active Medications Acetaminophen (Tylenol Oral Solution -) 650 mg GT Q6H PRN PRN Reason: FEVER Last Admin: 03/31/18 21:36 Dose: 650 mg Amino Acids (Prosource No Carb Liquid Pkt) 30 ml GT BID@0800,1730 [facility] Last Admin: 04/01/18 09:00 Dose: 30 ml Amlodipine Besylate (Norvasc -) 10 mg GT DAILY [facility] Last Admin: 04/01/18 09:18 Dose: 10 mg Collagenase (Santyl -) 1 applic TP DAILY [facility]; Protocol Last Admin: 04/01/18 11:22 Dose: Not Given Docusate Sodium (Colace Liquid -) 100 mg GT DAILY PRN PRN Reason: CONSTIPATION Last Admin: 03/29/18 10:34 Dose: 100 mg Emollient Ointment (Aquaphor -) 1 applic TP DAILY [facility] Last Admin: 04/01/18 11:21 Dose: Not Given Epoetin Abe (Procrit -) 10,000 unit IVPUSH ONCE ONE Stop: 04/01/18 15:40 Glucagon (Glucagon -) 1 mg SQ Q15M PRN PRN Reason: HYPOGLYCEMIA Sodium Chloride (Normal Saline -) 250 mls @ 3,000 mls/hr IV PRN PRN PRN Reason: Hypotension during Dialysis Stop: 04/01/18 15:39 Insulin Aspart (Novolog Vial Sliding Scale -) 1 vial SQ ACHS [facility]; Protocol Last Admin: 04/01/18 12:20 Dose: Not Given Lactobacillus Acidophilus (Bacid -) 1 tab GT DAILY [facility] Last Admin: 04/01/18 09:18 Dose: 1 tab Metoprolol Tartrate (Lopressor -) 25 mg GT BID [facility] Last Admin: 04/01/18 09:18 Dose: 25 mg Mirtazapine (Remeron -) 15 mg GT HS [facility] Last Admin: 03/31/18 21:36 Dose: 15 mg Senna (Senna -) 2 tab PO HS PRN PRN Reason: CONSTIPATION Vancomycin HCl (Vancomycin Oral Solution) 125 mg PO Q3D@1000 [facility] Last Admin: 03/31/18 09:02 Dose: 125 mg - Objective Vital Signs: Vital Signs Temperature 97.7 F 04/01/18 13:28 Pulse Rate 73 12/10/18 13:28 Respiratory Rate 18 04/01/18 13:28 Blood Pressure 139/78 04/01/18 13:28 O2 Sat by Pulse Oximetry (%) 93 L 04/01/18 09:21 Constitutional: Yes: Calm Eyes: Yes: Conjunctiva Clear HENT: Yes: Atraumatic Cardiovascular: Yes: S1, S2 Respiratory: Yes: CTA Bilaterally Gastrointestinal: Yes: Soft, Other (peg) Genitourinary: Yes: Incontinence Musculoskeletal: Yes: Muscle Weakness Edema: No Neurological: Yes: Confusion Labs: CBC, BMP 03/29/18 13:10 03/29/18 13:10 INR, PTT INR 1.13 (0.83-1.09) H 03/18/18 06:00 Problem List - Problems (1) ESRD (end stage renal disease) on dialysis Code(s): N18.6 - END STAGE RENAL DISEASE; Z99.2 - DEPENDENCE ON RENAL DIALYSIS (2) Sacral decubitus ulcer Code(s): L89.159 - PRESSURE ULCER OF SACRAL REGION, UNSPECIFIED STAGE Qualifiers: Pressure injury stage: stage 4 Qualified Code(s): L89.154 - Pressure ulcer of sacral region, stage 4 Assessment/Plan Current Medications Generic Name Dose Route Start Last Admin Trade Name Freq PRN Reason Stop Dose Admin Acetaminophen 650 mg 03/23/18 19:18 03/31/18 21:36 Tylenol Oral Solution - GT 650 mg Q6H PRN Administration FEVER Amino Acids 30 ml 03/26/18 17:30 04/01/18 09:00 Prosource No Carb Liquid Pkt GT 30 ml BID@0800,1730 [facility] Administration Amlodipine Besylate 10 mg 03/24/18 10:00 04/01/18 09:18 Norvasc - GT 10 mg DAILY [facility] Administration Collagenase 1 applic 03/24/18 10:00 04/01/18 11:22 Santyl - TP Not Given DAILY [facility] Protocol Docusate Sodium 100 mg 03/23/18 19:18 03/29/18 10:34 Colace Liquid - GT 100 mg DAILY PRN Administration CONSTIPATION Emollient Ointment 1 applic 03/24/18 10:00 04/01/18 11:21 Aquaphor - TP Not Given DAILY [facility] Epoetin Abe 10,000 unit 04/01/18 15:39 Procrit - IVPUSH 04/01/18 15:40 ONCE ONE Glucagon 1 mg 03/23/18 19:18 Glucagon - SQ Q15M PRN HYPOGLYCEMIA Sodium Chloride 250 mls @ 3,000 mls/hr 03/31/18 15:39 Normal Saline - IV 04/01/18 15:39 PRN PRN Hypotension during Dialysis Insulin Aspart 1 vial 03/23/18 22:00 04/01/18 12:20 Novolog Vial Sliding Scale - SQ Not Given ACHS [facility] Protocol Lactobacillus Acidophilus 1 tab 03/24/18 10:00 04/01/18 09:18 Bacid - GT 1 tab DAILY [facility] Administration Metoprolol Tartrate 25 mg 03/23/18 22:00 04/01/18 09:18 Lopressor - GT 25 mg BID [facility] Administration Mirtazapine 15 mg 03/23/18 22:00 03/31/18 21:36 Remeron - GT 15 mg HS [facility] Administration Senna 2 tab 03/23/18 19:18 Senna - PO HS PRN CONSTIPATION Vancomycin HCl 125 mg 03/25/18 17:30 03/31/18 09:02 Vancomycin Oral Solution PO 125 mg Q3D@1000 [facility] Administration Impression 1. ESRD 2. failed kidney transplant 3. hx DM 4. Hx HTN 5. sacral ulcer 6. post op infection 7. c.diff 8. a-fib 9. failure to thrive 10.malnutrition 11. anemia 12. GI bleed 13. PNA Plan - HD today - epogen for anemia - follow labs - cont tube feeds - will need placement - will follow Dr Winters
[2018-04-01] MEDS ORDERED: EPOETIN ALFA 10,000 UNIT/1 ML VIAL IVPUSH ONE (15:39)
[2018-04-01 19:07] LABS: HEMATOCRIT 24.5 % (32.4-45.2); HEMOGLOBIN 8.5 GM/dL (10.7-15.3); MCH 33.9 pg (25.7-33.7); MCHC 34.6 g/dl (32.0-36.0); MEAN CELL VOLUME 98.2 fl (80-96); PLATELET COUNT 321 K/MM3 (134-434); RDW 18.9 % (11.6-15.6); WHITE BLOOD COUNT 9.2 K/mm3 (4.0-10.0)
[2018-04-01 19:44] LABS: ALBUMIN 1.6 g/dl (3.4-5.0); ALK PHOS 199 U/L (45-117); ANION GAP 5 MMOL/L (8-16); BILIRUBIN,TOTAL 0.3 mg/dL (0.2-1); BLOOD UREA NITROGEN 76 mg/dL (7-18); CALCIUM 8.3 mg/dL (8.5-10.1); CHLORIDE 97 mmol/L (98-107); CO2 34 mmol/L (21-32); CREATININE 4.2 mg/dL (0.55-1.3); GLUCOSE,RANDOM 127 mg/dL (74-106); MAGNESIUM 2.3 mg/dL (1.8-2.4); SGOT/AST 67 U/L (15-37); SGPT/ALT 25 U/L (13-61); SODIUM 137 mmol/L (136-145); TOT PROT 6.8 g/dl (6.4-8.2)
[2018-04-01 19:46] LABS: POTASSIUM 6.4 mmol/L (3.5-5.1)
[2018-04-01] MEDS: MIRTAZAPINE 15 MG TABLET (FP) GT SCH (22:43)
[2018-04-01] MEDS: ACETAMINOPHEN 650 MG/20.3 ML ORAL SOLUTION (CUPS) GT PRN (22:47)
[2018-04-01 22:53] LABS: CREATININE 1.2 mg/dL (0.55-1.3)
[2018-04-02] MEDS: INSULIN SLIDING SCALE (NOVOLOG) 1 VIAL SQ SCH ×4 (06:16→21:45)
[2018-04-02] MEDS ORDERED: PT OWN MED DRAWER 7, Y5N ONE (08:51)
[2018-04-02] MEDS: METOPROLOL TARTRATE 25 MG TABLET (FP) GT SCH ×2 (09:49→21:22)
[2018-04-02] MEDS: AMINO ACIDS/PROTEIN HYDROLYS 30 ML LIQUID.PKT GT SCH (09:49)
[2018-04-02] MEDS: ACETAMINOPHEN 650 MG/20.3 ML ORAL SOLUTION (CUPS) GT PRN ×2 (09:49→17:48)
[2018-04-02] MEDS: LACTOBACILLUS ACIDOPHILUS 1 TABLET GT SCH (09:49)
[2018-04-02] MEDS: amLODIPine BESYLATE 10 MG TABLET (FP) GT SCH (09:49)
[2018-04-02] MEDS: MINERAL OIL/PET HY-PHL TOPICAL OINTMENT 454 GM JAR TP SCH (11:25)
[2018-04-02] MEDS: COLLAGENASE CLOSTRIDIUM HIST. 30 GRAMS TUBE TP SCH (11:25)
--- NOTE | 2018-04-02 11:59 | PN ---
Teaching Attending Note Name of Resident: Fernando Ricci ATTENDING PHYSICIAN STATEMENT I saw and evaluated the patient. I reviewed the resident's note and discussed the case with the resident. I agree with the resident's findings and plan as documented. SUBJECTIVE:resting comfortable. no complaints OBJECTIVE: Last Vital Signs Temp Pulse Resp BP Pulse Ox 97.7 F 73 20 159/69 93 L 04/02/18 06:00 04/02/18 06:00 04/02/18 06:00 04/02/18 06:00 04/01/18 21:00 General NAD ASSESSMENT AND PLAN: 77 yo F with reportedly prolonged stay at [facility] for PNA, cdiff (requiring fecal transplant), 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 Sacral wound-repeat CT showing no signs of OM. cont with local wound care, frequent turning. not a candidate for wound vac. 2. Severe malnutrition- as evident by body habitus and low BMI. s/p PEG 03/18. tolerating TF. continue bolus feeds. no episodes of nausea or vomiting. recreational feeds. 3. Ileus- due to lack of GI nutrition and movement for extended period of time. continuing to tolerate. 4. hypokalemia- was hyperkalemic yesterday. received HD 5. depression-continues to refuse treatment intermittently. 6. Hypoglycemia- having periods of hypoglycemia due to poor oral intake. cont BGM Q6H, D50 prn 7. PNA- likely aspiration. no peripheral access. completed abx course. monitor off abx 8. Cdiff- no more diarrhea. on vanco Q48H x1 month. contact precautions 9. Anemia- Hgb stable. no indication for transfusion. epogen 10. ESRD on HD- cont per normal schedule via permacath. vein maping completed. 11. DVT ppx- SCD. would hold pharmacolgic anticoagulation with recent large GI bleed 12.pt has been discharged since 03/29/18 as she is medically stable for discharge. family has refused to berry picker the patient. spoke with SW who is reporting to [facility]
--- NOTE | 2018-04-02 12:29 | PN ---
Progress Note, Physician History of Present Illness: Pt seen and examined at bedside. No great change overnight. She tolerated HD yesterday. - Current Medication List Current Medications: Active Medications Acetaminophen (Tylenol Oral Solution -) 650 mg GT Q6H PRN PRN Reason: FEVER Last Admin: 04/02/18 09:49 Dose: 650 mg Amino Acids (Prosource No Carb Liquid Pkt) 30 ml GT BID@0800,1730 [facility] Last Admin: 04/02/18 09:49 Dose: 30 ml Amlodipine Besylate (Norvasc -) 10 mg GT DAILY [facility] Last Admin: 04/02/18 09:49 Dose: 10 mg Collagenase (Santyl -) 1 applic TP DAILY [facility]; Protocol Last Admin: 04/01/18 11:22 Dose: Not Given Docusate Sodium (Colace Liquid -) 100 mg GT DAILY PRN PRN Reason: CONSTIPATION Last Admin: 03/29/18 10:34 Dose: 100 mg Emollient Ointment (Aquaphor -) 1 applic TP DAILY [facility] Last Admin: 04/01/18 11:21 Dose: Not Given Glucagon (Glucagon -) 1 mg SQ Q15M PRN PRN Reason: HYPOGLYCEMIA Insulin Aspart (Novolog Vial Sliding Scale -) 1 vial SQ ACHS [facility]; Protocol Last Admin: 04/02/18 06:16 Dose: Not Given Lactobacillus Acidophilus (Bacid -) 1 tab GT DAILY [facility] Last Admin: 04/02/18 09:49 Dose: 1 tab Metoprolol Tartrate (Lopressor -) 25 mg GT BID [facility] Last Admin: 04/02/18 09:49 Dose: 25 mg Mirtazapine (Remeron -) 15 mg GT HS [facility] Last Admin: 04/01/18 22:43 Dose: 15 mg Senna (Senna -) 2 tab PO HS PRN PRN Reason: CONSTIPATION - Objective Vital Signs: Vital Signs Temperature 97.7 F 04/02/18 06:00 Pulse Rate 73 04/02/18 06:00 Respiratory Rate 20 04/02/18 06:00 Blood Pressure 159/69 04/02/18 06:00 O2 Sat by Pulse Oximetry (%) 93 L 04/01/18 21:00 Constitutional: Yes: Calm Eyes: Yes: Conjunctiva Clear HENT: Yes: Atraumatic Cardiovascular: Yes: S1, S2 Respiratory: Yes: CTA Bilaterally Gastrointestinal: Yes: Other (peg) Genitourinary: Yes: Incontinence Musculoskeletal: Yes: Muscle Weakness Edema: No Neurological: Yes: Confusion Labs: CBC, BMP 04/01/18 19:00 04/01/18 21:30 INR, PTT INR 1.13 (0.83-1.09) H 03/18/18 06:00 Problem List - Problems (1) ESRD (end stage renal disease) on dialysis Code(s): N18.6 - END STAGE RENAL DISEASE; Z99.2 - DEPENDENCE ON RENAL DIALYSIS (2) Sacral decubitus ulcer Code(s): L89.159 - PRESSURE ULCER OF SACRAL REGION, UNSPECIFIED STAGE Qualifiers: Pressure injury stage: stage 4 Qualified Code(s): L89.154 - Pressure ulcer of sacral region, stage 4 Assessment/Plan Current Medications Generic Name Dose Route Start Last Admin Trade Name Freq PRN Reason Stop Dose Admin Acetaminophen 650 mg 03/23/18 19:18 04/02/18 09:49 Tylenol Oral Solution - GT 650 mg Q6H PRN Administration FEVER Amino Acids 30 ml 03/26/18 17:30 04/02/18 09:49 Prosource No Carb Liquid Pkt GT 30 ml BID@0800,1730 [facility] Administration Amlodipine Besylate 10 mg 03/24/18 10:00 04/02/18 09:49 Norvasc - GT 10 mg DAILY [facility] Administration Collagenase 1 applic 03/24/18 10:00 04/01/18 11:22 Santyl - TP Not Given DAILY [facility] Protocol Docusate Sodium 100 mg 03/23/18 19:18 03/29/18 10:34 Colace Liquid - GT 100 mg DAILY PRN Administration CONSTIPATION Emollient Ointment 1 applic 03/24/18 10:00 04/01/18 11:21 Aquaphor - TP Not Given DAILY [facility] Glucagon 1 mg 03/23/18 19:18 Glucagon - SQ Q15M PRN HYPOGLYCEMIA Insulin Aspart 1 vial 03/23/18 22:00 04/02/18 06:16 Novolog Vial Sliding Scale - SQ Not Given ACHS [facility] Protocol Lactobacillus Acidophilus 1 tab 03/24/18 10:00 04/02/18 09:49 Bacid - GT 1 tab DAILY [facility] Administration Metoprolol Tartrate 25 mg 03/23/18 22:00 04/02/18 09:49 Lopressor - GT 25 mg BID [facility] Administration Mirtazapine 15 mg 03/23/18 22:00 04/01/18 22:43 Remeron - GT 15 mg HS [facility] Administration Senna 2 tab 03/23/18 19:18 Senna - PO HS PRN CONSTIPATION Laboratory Tests 03/27/18 03/29/18 04/01/18 15:00 13:10 19:00 Potassium 3.5 5.4 H 6.4 H* Impression 1. ESRD 2. failed kidney transplant 3. hx DM 4. Hx HTN 5. sacral ulcer 6. post op infection 7. c.diff 8. a-fib 9. failure to thrive 10.malnutrition 11. anemia 12. GI bleed 13. PNA 14. hyperkalemia Plan - pt tolerated HD yesterday - switch feeds to nepro as her current feeds are causing hyperkalemia, the potassium was pre-hd from yesterday - next HD in am - epogen for anemia - follow labs - will follow Dr Winters
--- NOTE | 2018-04-02 16:29 | PN ---
Physical Exam: SUBJECTIVE: Patient seen and examined at bedside. No acute events overnight. OBJECTIVE: Vital Signs Period Temp Pulse Resp BP Sys/Franco Pulse Ox Last 24 Hr 97.7 F-98.9 F 71-98 16-20 107-159/45-89 93 GENERAL: Cachechtic, responds to verbal stimuli HEAD: NC/AT EYES: EOMI, Conjunctiva clear ENT: MMM NECK: Supple LUNGS: Poor inspiratory effort. HEART: RRR ABDOMEN: Abdominal binder in place. PEG intact, no signs of infection. EXTREMITIES: Muscle atrophy, frail. Laboratory Results - last 24 hr 04/01/18 04/01/18 04/01/18 19:00 19:00 21:30 WBC 9.2 RBC 2.50 L Hgb 8.5 L Hct 24.5 L D MCV 98.2 H MCH 33.9 H MCHC 34.6 RDW 18.9 H Plt Count 321 D MPV 10.0 Sodium 137 Potassium 6.4 H* Chloride 97 L Carbon Dioxide 34 H Anion Gap 5 L BUN 76 H 15 Creatinine 4.2 H 1.2 Creat Clearance w eGFR 10.24 POC Glucometer Random Glucose 127 H Calcium 8.3 L Phosphorus 4.0 Magnesium 2.3 Total Bilirubin 0.3 AST 67 H ALT 25 Alkaline Phosphatase 199 H Total Protein 6.8 Albumin 1.6 L 04/01/18 04/02/18 04/02/18 21:37 05:16 12:40 WBC RBC Hgb Hct MCV MCH MCHC RDW Plt Count MPV Sodium Potassium Chloride Carbon Dioxide Anion Gap BUN Creatinine Creat Clearance w eGFR POC Glucometer 120 66 85 Random Glucose Calcium Phosphorus Magnesium Total Bilirubin AST ALT Alkaline Phosphatase Total Protein Albumin Active Medications Generic Name Dose Route Start Last Admin Trade Name Freq PRN Reason Stop Dose Admin Acetaminophen 650 mg 03/23/18 19:18 04/02/18 09:49 Tylenol Oral Solution - GT 650 mg Q6H PRN Administration FEVER Amino Acids 30 ml 04/03/18 08:00 Prosource No Carb Liquid Pkt GT DAILY@0800 [facility] Amlodipine Besylate 10 mg 03/24/18 10:00 04/02/18 09:49 Norvasc - GT 10 mg DAILY [facility]AL Administration Collagenase 1 applic 03/24/18 10:00 04/02/18 11:25 Santyl - TP 1 applic DAILY [facility]ARPAL Administration Protocol Docusate Sodium 100 mg 03/23/18 19:18 03/29/18 10:34 Colace Liquid - GT 100 mg DAILY PRN Administration CONSTIPATION Emollient Ointment 1 applic 03/24/18 10:00 04/02/18 11:25 Aquaphor - TP 1 applic DAILY [facility]ARPAL Administration Epoetin Abe 11,000 unit 04/03/18 12:29 Epogen - IVPUSH 04/03/18 12:30 ONCE ONE Glucagon 1 mg 03/23/18 19:18 Glucagon - SQ Q15M PRN HYPOGLYCEMIA Sodium Chloride 250 mls @ 3,000 mls/hr 04/02/18 12:29 Normal Saline - IV 04/03/18 12:29 PRN PRN Hypotension during Dialysis Insulin Aspart 1 vial 03/23/18 22:00 04/02/18 12:43 Novolog Vial Sliding Scale - SQ Not Given ACHS [facility]ARPAL Protocol Lactobacillus Acidophilus 1 tab 03/24/18 10:00 04/02/18 09:49 Bacid - GT 1 tab DAILY [facility]ARPAL Administration Metoprolol Tartrate 25 mg 03/23/18 22:00 04/02/18 09:49 Lopressor - GT 25 mg BID [facility]ARPAL Administration Mirtazapine 15 mg 03/23/18 22:00 04/01/18 22:43 Remeron - GT 15 mg HS HARPAL Administration Senna 2 tab 03/23/18 19:18 Senna - PO HS PRN CONSTIPATION ASSESSMENT/PLAN: Patient is a 77 year old female with history of ESRD on HD Mon, Wed, Fri, s/p kidney transplant 10/08, diabetes mellitus, hypertension, Afib not on anticoagulation due to GI bleed on prior admission, recently discharged from [facility], presents for complaint of sacral ulcer, requiring wound care. #Malnutrition Tolerating tube feeds. Feeds changed to Nepro in light of hyperkalemia. -Social Work on board and has reached out to family to confirm. -[facility] aware faxed d/c summary and HD flowsheets to [facility] HD to reinstate patient's Dialysis schedule. Pt set up for HD at [facility] Dialysis. #Stage IV sacral decubitus ulcer -Surgery--> Santyl to sacrum daily, Alleven over sacrum, Alleven over b/l heels , Offload pressure areas with frequent repositioning, 02/26/18 CT Abd/Pelvis--> No CT Evidence of osteomyelitis. #ESRD on hemodialysis -Nephrology-Dr Winters on board. - Epogen per renal. -HD as outpatient. Will attend [facility] Dialysis -HD 04/01/18---> 1.5 KG WT REMOVED -Potassium 04/01/18 6.4 #C. Difficile infection -Vanco 125 po every 2 days per week for 2 weeks. -Contact precautions #Atrial fibrillation -Lopressor 25 po bid -No AC at this time due to h/o G.I bleed on last admission. #Hypertension -Continue Norvasc 10 mg PO daily #FEN No I.V access, no fluids Monitor electrolytes Nepro Tube Feeds. Per RD--> Dysphagia Renal/chopped/nectar thick liquids PO diet Prophylaxis No anticoagulation in light of G.I bleed on previous admission. Disposition- Pending DC tomorrow Visit type - Emergency Visit Emergency Visit: Yes ED Registration Date: 02/27/18 Care time: The patient presented to the Emergency Department on the above date and was hospitalized for further evaluation of their emergent condition. - New Patient This patient is new to me today: No - Critical Care Critical Care patient: No - Discharge Referral Referred to [facility] Med P.C.: No
[2018-04-02] MEDS: MIRTAZAPINE 15 MG TABLET (FP) GT SCH (21:22)
[2018-04-03] MEDS: ACETAMINOPHEN 650 MG/20.3 ML ORAL SOLUTION (CUPS) GT PRN ×2 (02:21→10:32)
[2018-04-03] MEDS: INSULIN SLIDING SCALE (NOVOLOG) 1 VIAL SQ SCH ×4 (08:02→21:44)
[2018-04-03] MEDS ORDERED: PT OWN MED DRAWER 7, Y5N ONE (10:22)
[2018-04-03] MEDS: AMINO ACIDS/PROTEIN HYDROLYS 30 ML LIQUID.PKT GT SCH (10:28)
[2018-04-03] MEDS: amLODIPine BESYLATE 10 MG TABLET (FP) GT SCH (10:28)
[2018-04-03] MEDS: LACTOBACILLUS ACIDOPHILUS 1 TABLET GT SCH (10:28)
[2018-04-03] MEDS: METOPROLOL TARTRATE 25 MG TABLET (FP) GT SCH ×2 (10:28→21:34)
[2018-04-03] MEDS: COLLAGENASE CLOSTRIDIUM HIST. 30 GRAMS TUBE TP SCH (10:29)
[2018-04-03] MEDS: MINERAL OIL/PET HY-PHL TOPICAL OINTMENT 454 GM JAR TP SCH (10:29)
--- NOTE | 2018-04-03 10:51 | PN ---
Progress Note, Physician History of Present Illness: Pt seen and examined at bedside. She appears comfortable. Her feeds were changed to nepro. - Current Medication List Current Medications: Active Medications Acetaminophen (Tylenol Oral Solution -) 650 mg GT Q6H PRN PRN Reason: FEVER Last Admin: 04/03/18 10:32 Dose: 650 mg Amino Acids (Prosource No Carb Liquid Pkt) 30 ml GT DAILY@0800 [facility]ARPAL Last Admin: 04/03/18 10:28 Dose: 30 ml Amlodipine Besylate (Norvasc -) 10 mg GT DAILY [facility] Last Admin: 04/03/18 10:28 Dose: 10 mg Collagenase (Santyl -) 1 applic TP DAILY HARPAL; Protocol Last Admin: 04/03/18 10:29 Dose: 1 applic Docusate Sodium (Colace Liquid -) 100 mg GT DAILY PRN PRN Reason: CONSTIPATION Last Admin: 03/29/18 10:34 Dose: 100 mg Emollient Ointment (Aquaphor -) 1 applic TP DAILY [facility]ARPAL Last Admin: 04/03/18 10:29 Dose: 1 applic Epoetin Abe (Epogen -) 11,000 unit IVPUSH ONCE ONE Stop: 04/03/18 12:30 Glucagon (Glucagon -) 1 mg SQ Q15M PRN PRN Reason: HYPOGLYCEMIA Sodium Chloride (Normal Saline -) 250 mls @ 3,000 mls/hr IV PRN PRN PRN Reason: Hypotension during Dialysis Stop: 04/03/18 12:29 Insulin Aspart (Novolog Vial Sliding Scale -) 1 vial SQ ACHS HARPAL; Protocol Last Admin: 04/03/18 08:02 Dose: Not Given Lactobacillus Acidophilus (Bacid -) 1 tab GT DAILY [facility]ARPAL Last Admin: 04/03/18 10:28 Dose: 1 tab Metoprolol Tartrate (Lopressor -) 25 mg GT BID HARPAL Last Admin: 04/03/18 10:28 Dose: 25 mg Mirtazapine (Remeron -) 15 mg GT HS HARPAL Last Admin: 04/02/18 21:22 Dose: 15 mg Senna (Senna -) 2 tab PO HS PRN PRN Reason: CONSTIPATION - Objective Vital Signs: Vital Signs Temperature 97.5 F L 04/03/18 06:00 Pulse Rate 74 04/03/18 06:00 Respiratory Rate 16 04/03/18 06:00 Blood Pressure 145/65 04/03/18 06:00 O2 Sat by Pulse Oximetry (%) 93 L 04/02/18 21:00 Constitutional: Yes: Calm Eyes: Yes: Conjunctiva Clear HENT: Yes: Atraumatic Neck: Yes: Supple Cardiovascular: Yes: S1, S2 Respiratory: Yes: CTA Bilaterally Gastrointestinal: Yes: Other (peg) Genitourinary: Yes: Incontinence Musculoskeletal: Yes: Muscle Weakness Edema: No Neurological: Yes: Confusion Labs: CBC, BMP 04/01/18 19:00 04/01/18 21:30 INR, PTT INR 1.13 (0.83-1.09) H 03/18/18 06:00 Problem List - Problems (1) ESRD (end stage renal disease) on dialysis Code(s): N18.6 - END STAGE RENAL DISEASE; Z99.2 - DEPENDENCE ON RENAL DIALYSIS (2) Sacral decubitus ulcer Code(s): L89.159 - PRESSURE ULCER OF SACRAL REGION, UNSPECIFIED STAGE Qualifiers: Pressure injury stage: stage 4 Qualified Code(s): L89.154 - Pressure ulcer of sacral region, stage 4 Assessment/Plan Current Medications Generic Name Dose Route Start Last Admin Trade Name Freq PRN Reason Stop Dose Admin Acetaminophen 650 mg 03/23/18 19:18 04/03/18 10:32 Tylenol Oral Solution - GT 650 mg Q6H PRN Administration FEVER Amino Acids 30 ml 04/03/18 08:00 04/03/18 10:28 Prosource No Carb Liquid Pkt GT 30 ml DAILY@0800 HARPAL Administration Amlodipine Besylate 10 mg 03/24/18 10:00 04/03/18 10:28 Norvasc - GT 10 mg DAILY HARPAL Administration Collagenase 1 applic 03/24/18 10:00 04/03/18 10:29 Santyl - TP 1 applic DAILY HARPAL Administration Protocol Docusate Sodium 100 mg 03/23/18 19:18 03/29/18 10:34 Colace Liquid - GT 100 mg DAILY PRN Administration CONSTIPATION Emollient Ointment 1 applic 03/24/18 10:00 04/03/18 10:29 Aquaphor - TP 1 applic DAILY HARPAL Administration Epoetin Abe 11,000 unit 04/03/18 12:29 Epogen - IVPUSH 04/03/18 12:30 ONCE ONE Glucagon 1 mg 03/23/18 19:18 Glucagon - SQ Q15M PRN HYPOGLYCEMIA Sodium Chloride 250 mls @ 3,000 mls/hr 04/02/18 12:29 Normal Saline - IV 04/03/18 12:29 PRN PRN Hypotension during Dialysis Insulin Aspart 1 vial 03/23/18 22:00 04/03/18 08:02 Novolog Vial Sliding Scale - SQ Not Given ACHS HARPAL Protocol Lactobacillus Acidophilus 1 tab 03/24/18 10:00 04/03/18 10:28 Bacid - GT 1 tab DAILY HARPAL Administration Metoprolol Tartrate 25 mg 03/23/18 22:00 04/03/18 10:28 Lopressor - GT 25 mg BID HARPAL Administration Mirtazapine 15 mg 03/23/18 22:00 04/02/18 21:22 Remeron - GT 15 mg HS HARPAL Administration Senna 2 tab 03/23/18 19:18 Senna - PO HS PRN CONSTIPATION Impression 1. ESRD 2. failed kidney transplant 3. hx DM 4. Hx HTN 5. sacral ulcer 6. post op infection 7. c.diff 8. a-fib 9. failure to thrive 10.malnutrition 11. anemia 12. GI bleed 13. PNA 14. hyperkalemia Plan - HD today - check bmp - feeds switched to nepro yesterday - will need nepro as feeds - epogen for anemia - follow labs - will follow Dr Winters
[2018-04-03] MEDS ORDERED: SODIUM CHLORIDE 250 ML IV PRN (13:57)
[2018-04-03] MEDS ORDERED: EPOETIN ALFA 20,000 UNIT/1 ML VIAL IVPUSH ONE (14:00)
[2018-04-03 15:09] LABS: HEMATOCRIT 30.3 % (32.4-45.2); HEMOGLOBIN 9.6 GM/dL (10.7-15.3); MCH 31.5 pg (25.7-33.7); MCHC 31.6 g/dl (32.0-36.0); MEAN CELL VOLUME 99.7 fl (80-96); MEAN PLT VOLUME 9.6 fl (7.5-11.1); PLATELET COUNT 262 K/MM3 (134-434); RBC 3.04 M/mm3 (3.60-5.2); WHITE BLOOD COUNT 9.5 K/mm3 (4.0-10.0)
--- NOTE | 2018-04-03 18:43 | PN ---
Teaching Attending Note Name of Resident: Fernando Ricci ATTENDING PHYSICIAN STATEMENT I saw and evaluated the patient. I reviewed the resident's note and discussed the case with the resident. I agree with the resident's findings and plan as documented. SUBJECTIVE: Patient awake and alert. She reports having lower abdominal pain. OBJECTIVE: Vital Signs Period Temp Pulse Resp BP Sys/Franco Pulse Ox Last 24 Hr 97.2 F-98.2 F 71-91 16-18 123-150/65-100 93-93 HEART: S1S2, RRR LUNGS: Clear ABDOMEN: Soft, non-tender, non-distended, normal BS EXTREMITIES: No edema Laboratory Results - last 24 hr 04/02/18 04/03/18 04/03/18 21:57 05:50 10:59 WBC RBC Hgb Hct MCV MCH MCHC RDW Plt Count MPV POC Glucometer 87 78 85 04/03/18 04/03/18 14:30 16:53 WBC 9.5 RBC 3.04 L Hgb 9.6 L Hct 30.3 L D MCV 99.7 H MCH 31.5 MCHC 31.6 L RDW 20.0 H Plt Count 262 MPV 9.6 POC Glucometer 113 Current Medications Generic Name Dose Route Start Last Admin Trade Name Freq PRN Reason Stop Dose Admin Acetaminophen 650 mg 03/23/18 19:18 04/03/18 10:32 Tylenol Oral Solution - GT 650 mg Q6H PRN Administration FEVER Amino Acids 30 ml 04/03/18 08:00 04/03/18 10:28 Prosource No Carb Liquid Pkt GT 30 ml DAILY@0800 HARPAL Administration Amlodipine Besylate 10 mg 03/24/18 10:00 04/03/18 10:28 Norvasc - GT 10 mg DAILY HARPAL Administration Collagenase 1 applic 03/24/18 10:00 04/03/18 10:29 Santyl - TP 1 applic DAILY HARPAL Administration Protocol Docusate Sodium 100 mg 03/23/18 19:18 03/29/18 10:34 Colace Liquid - GT 100 mg DAILY PRN Administration CONSTIPATION Emollient Ointment 1 applic 03/24/18 10:00 04/03/18 10:29 Aquaphor - TP 1 applic DAILY HARPAL Administration Glucagon 1 mg 03/23/18 19:18 Glucagon - SQ Q15M PRN HYPOGLYCEMIA Insulin Aspart 1 vial 03/23/18 22:00 12/12/18 17:28 Novolog Vial Sliding Scale - SQ Not Given ACHS [facility] Protocol Lactobacillus Acidophilus 1 tab 03/24/18 10:00 04/03/18 10:28 Bacid - GT 1 tab DAILY HARPAL Administration Metoprolol Tartrate 25 mg 03/23/18 22:00 04/03/18 10:28 Lopressor - GT 25 mg BID HARPAL Administration Mirtazapine 15 mg 03/23/18 22:00 04/02/18 21:22 Remeron - GT 15 mg HS HARPAL Administration Senna 2 tab 03/23/18 19:18 Senna - PO HS PRN CONSTIPATION ASSESSMENT AND PLAN: This is a 77 year old woman with a history of ESRD, failed kidney transplant, fecal transplant for C. difficile colitis, depression, HTN, type 2 DM, atrial fib, diverticular bleed who presented to the ED for evaluation of a sacral wound. 1. Stage 4 sacral pressure ulcer - No evidence of osteomyelitis - Continue local wound care with Santyl 2. Severe protein calorie malnutrition - s/p PEG 03/18 - Continue Nepro PEG feeds, ProSource 3. Ileus - Resolved 4. Hypokalemia/hyperkalemia - Improved 5. Depression - Continue Remeron 6. Pneumonia, probable aspiration - Completed antibiotics 7. C. difficile colitis - s/p fecal transplant - Completed course of Vancomycin 8. Anemia - Hemoglobin stable 9. ESRD - s/p failed renal transplant - Continue HD 10. HTN - Continue Lopressor, Norvasc 11. History of atrial fib - Remains in sinus rhythm - Continue Lopressor - Not on anticoagulation secondary to recent GI bleed 12. Type 2 DM - Continue Novolog sliding scale - Continue to monitor for hypoglycemia - Glucagon as needed
[2018-04-03 19:12] LABS: ANION GAP 8 MMOL/L (8-16); BLOOD UREA NITROGEN 42 mg/dL (7-18); CALCIUM 8.2 mg/dL (8.5-10.1); CHLORIDE 99 mmol/L (98-107); CO2 30 mmol/L (21-32); GLUCOSE,RANDOM 65 mg/dL (74-106); PHOSPHOROUS 5.1 mg/dL (2.5-4.9); POTASSIUM 5.1 mmol/L (3.5-5.1); SODIUM 137 mmol/L (136-145)
[2018-04-03 19:13] LABS: ALBUMIN 1.6 g/dl (3.4-5.0); ALK PHOS 185 U/L (45-117); BILIRUBIN,TOTAL 0.3 mg/dL (0.2-1); SGOT/AST 49 U/L (15-37); SGPT/ALT 23 U/L (13-61); TOT PROT 6.9 g/dl (6.4-8.2)
--- NOTE | 2018-04-03 19:54 | PN ---
Physical Exam: SUBJECTIVE: Patient seen and examined at bedside. No acute events overnight. Episode of vomiting this afternoon. OBJECTIVE: Vital Signs Period Temp Pulse Resp BP Sys/Franco Pulse Ox Last 24 Hr 97.2 F-98.2 F 71-91 16-18 123-150/65-100 93-93 GENERAL: Resting in bed NAD. Frail, Cachechtic HEAD: NC/AT EYES: EOMI ENT: MMM LUNGS: Poor inspiratory effort . HEART: Regular rate and rhythm, S1, S2 without murmur, rub or gallop. ABDOMEN: PEG in place, no signs of infection around site. Bowel sounds appreciated, Soft EXTREMITIES: Frail, diffuse muscle atrophy . Laboratory Results - last 24 hr 04/02/18 04/03/18 04/03/18 21:57 05:50 10:59 WBC RBC Hgb Hct MCV MCH MCHC RDW Plt Count MPV Sodium Potassium Chloride Carbon Dioxide Anion Gap BUN Creatinine Creat Clearance w eGFR POC Glucometer 87 78 85 Random Glucose Calcium Phosphorus Total Bilirubin AST ALT Alkaline Phosphatase Total Protein Albumin 04/03/18 04/03/18 04/03/18 14:30 14:30 16:53 WBC 9.5 RBC 3.04 L Hgb 9.6 L Hct 30.3 L D MCV 99.7 H MCH 31.5 MCHC 31.6 L RDW 20.0 H Plt Count 262 MPV 9.6 Sodium 137 Potassium 5.1 Chloride 99 Carbon Dioxide 30 Anion Gap 8 BUN 42 H Creatinine 3.0 H Creat Clearance w eGFR 15.09 POC Glucometer 113 Random Glucose 65 L Calcium 8.2 L Phosphorus 5.1 H Total Bilirubin 0.3 AST 49 H ALT 23 Alkaline Phosphatase 185 H Total Protein 6.9 Albumin 1.6 L Active Medications Generic Name Dose Route Start Last Admin Trade Name Freq PRN Reason Stop Dose Admin Acetaminophen 650 mg 03/23/18 19:18 04/03/18 10:32 Tylenol Oral Solution - GT 650 mg Q6H PRN Administration FEVER Amino Acids 30 ml 04/03/18 08:00 04/03/18 10:28 Prosource No Carb Liquid Pkt GT 30 ml DAILY@0800 HARPAL Administration Amlodipine Besylate 10 mg 03/24/18 10:00 04/03/18 10:28 Norvasc - GT 10 mg DAILY HARPAL Administration Collagenase 1 applic 03/24/18 10:00 04/03/18 10:29 Santyl - TP 1 applic DAILY HARPAL Administration Protocol Docusate Sodium 100 mg 03/23/18 19:18 03/29/18 10:34 Colace Liquid - GT 100 mg DAILY PRN Administration CONSTIPATION Emollient Ointment 1 applic 03/24/18 10:00 04/03/18 10:29 Aquaphor - TP 1 applic DAILY HARPAL Administration Glucagon 1 mg 03/23/18 19:18 Glucagon - SQ Q15M PRN HYPOGLYCEMIA Insulin Aspart 1 vial 03/23/18 22:00 04/03/18 17:28 Novolog Vial Sliding Scale - SQ Not Given ACHS [facility] Protocol Lactobacillus Acidophilus 1 tab 03/24/18 10:00 04/03/18 10:28 Bacid - GT 1 tab DAILY HARPAL Administration Metoprolol Tartrate 25 mg 03/23/18 22:00 04/03/18 10:28 Lopressor - GT 25 mg BID HARPAL Administration Mirtazapine 15 mg 03/23/18 22:00 04/02/18 21:22 Remeron - GT 15 mg HS HARPAL Administration Senna 2 tab 03/23/18 19:18 Senna - PO HS PRN CONSTIPATION ASSESSMENT/PLAN: Patient is a 77 year old female with history of ESRD on HD Mon, Wed, Sun, s/p kidney transplant 10/08, diabetes mellitus, hypertension, Afib not on anticoagulation due to GI bleed on prior admission, recently discharged from [facility], presents for complaint of sacral ulcer, requiring wound care. #Malnutrition Tolerating tube feeds. Feeds changed to Nepro in light of hyperkalemia. -Social Work on board and has reached out to family to confirm. -[facility] aware faxed d/c summary and HD flowsheets to [facility] HD to reinstate patient's Dialysis schedule. Pt set up for HD at [facility] Dialysis. -Episode of Vomiting: approx 12:30pm patient vomited approx. moderate amount of undigested feed--> D/C delayed #Stage IV sacral decubitus ulcer -Surgery--> Santyl to sacrum daily, Alleven over sacrum, Alleven over b/l heels , Offload pressure areas with frequent repositioning, 02/26/18 CT Abd/Pelvis--> No CT Evidence of osteomyelitis. #ESRD on hemodialysis -Nephrology-Dr Winters on board. - Epogen per renal. -HD as outpatient. Will attend [facility] Dialysis -HD today 04/03/18---> WELL TOLERATED. VSS. 1.5 KG WT REMOVED. -Potassium 04/01/18 6.4, Potassium today 04/03/18 5.1 #C. Difficile infection -Vanco 125 po every 2 days per week for 2 weeks. -Contact precautions #Atrial fibrillation -Lopressor 25 po bid -No AC at this time due to h/o G.I bleed on last admission. #Hypertension -Continue Norvasc 10 mg PO daily #FEN No I.V access, no fluids Monitor electrolytes Nepro Tube Feeds. Per RD--> Dysphagia Renal/chopped/nectar thick liquids PO diet Prophylaxis No anticoagulation in light of G.I bleed on previous admission. Disposition- Pending DC tomorrow Visit type - Emergency Visit Emergency Visit: Yes ED Registration Date: 02/27/18 Care time: The patient presented to the Emergency Department on the above date and was hospitalized for further evaluation of their emergent condition. - New Patient This patient is new to me today: No - Critical Care Critical Care patient: No - Discharge Referral Referred to [facility] Med P.C.: No
[2018-04-03] MEDS: MIRTAZAPINE 15 MG TABLET (FP) GT SCH (21:34)
[2018-04-04] MEDS: INSULIN SLIDING SCALE (NOVOLOG) 1 VIAL SQ SCH ×4 (06:20→21:53)
[2018-04-04] MEDS: LACTOBACILLUS ACIDOPHILUS 1 TABLET GT SCH (09:26)
[2018-04-04] MEDS: AMINO ACIDS/PROTEIN HYDROLYS 30 ML LIQUID.PKT GT SCH (09:26)
[2018-04-04] MEDS: METOPROLOL TARTRATE 25 MG TABLET (FP) GT SCH ×2 (09:27→21:26)
[2018-04-04] MEDS: amLODIPine BESYLATE 10 MG TABLET (FP) GT SCH (09:27)
[2018-04-04] MEDS: COLLAGENASE CLOSTRIDIUM HIST. 30 GRAMS TUBE TP SCH (09:27)
[2018-04-04] MEDS: MINERAL OIL/PET HY-PHL TOPICAL OINTMENT 454 GM JAR TP SCH (09:31)
--- NOTE | 2018-04-04 13:06 | PN ---
Progress Note, Physician History of Present Illness: Pt seen and examined at bedside. She is awake and appears comfortable. - Current Medication List Current Medications: Active Medications Acetaminophen (Tylenol Oral Solution -) 650 mg GT Q6H PRN PRN Reason: FEVER Last Admin: 04/03/18 10:32 Dose: 650 mg Amino Acids (Prosource No Carb Liquid Pkt) 30 ml GT DAILY@0800 [facility] Last Admin: 04/04/18 09:26 Dose: 30 ml Amlodipine Besylate (Norvasc -) 10 mg GT DAILY [facility]ARPAL Last Admin: 04/04/18 09:27 Dose: 10 mg Collagenase (Santyl -) 1 applic TP DAILY [facility]; Protocol Last Admin: 04/04/18 09:27 Dose: 1 applic Docusate Sodium (Colace Liquid -) 100 mg GT DAILY PRN PRN Reason: CONSTIPATION Last Admin: 03/29/18 10:34 Dose: 100 mg Emollient Ointment (Aquaphor -) 1 applic TP DAILY [facility] Last Admin: 04/04/18 09:31 Dose: 1 applic Glucagon (Glucagon -) 1 mg SQ Q15M PRN PRN Reason: HYPOGLYCEMIA Insulin Aspart (Novolog Vial Sliding Scale -) 1 vial SQ ACHS [facility]; Protocol Last Admin: 04/04/18 12:10 Dose: Not Given Lactobacillus Acidophilus (Bacid -) 1 tab GT DAILY [facility] Last Admin: 04/04/18 09:26 Dose: 1 tab Metoprolol Tartrate (Lopressor -) 25 mg GT BID [facility] Last Admin: 04/04/18 09:27 Dose: 25 mg Mirtazapine (Remeron -) 15 mg GT HS [facility] Last Admin: 04/03/18 21:34 Dose: 15 mg Senna (Senna -) 2 tab PO HS PRN PRN Reason: CONSTIPATION - Objective Vital Signs: Vital Signs Temperature 98.1 F 04/04/18 09:34 Pulse Rate 77 04/04/18 09:34 Respiratory Rate 18 04/04/18 09:34 Blood Pressure 150/81 04/04/18 09:34 O2 Sat by Pulse Oximetry (%) 100 04/04/18 09:00 Constitutional: Yes: Calm Eyes: Yes: Conjunctiva Clear HENT: Yes: Atraumatic Neck: Yes: Supple Cardiovascular: Yes: S1, S2 Respiratory: Yes: CTA Bilaterally Gastrointestinal: Yes: Other (peg) Genitourinary: Yes: Incontinence Musculoskeletal: Yes: Muscle Weakness Edema: No Neurological: Yes: Confusion Labs: CBC, BMP 04/03/18 14:30 04/03/18 14:30 INR, PTT INR 1.13 (0.83-1.09) H 03/18/18 06:00 Problem List - Problems (1) ESRD (end stage renal disease) on dialysis Code(s): N18.6 - END STAGE RENAL DISEASE; Z99.2 - DEPENDENCE ON RENAL DIALYSIS (2) Sacral decubitus ulcer Code(s): L89.159 - PRESSURE ULCER OF SACRAL REGION, UNSPECIFIED STAGE Qualifiers: Pressure injury stage: stage 4 Qualified Code(s): L89.154 - Pressure ulcer of sacral region, stage 4 Assessment/Plan Current Medications Generic Name Dose Route Start Last Admin Trade Name Freq PRN Reason Stop Dose Admin Acetaminophen 650 mg 03/23/18 19:18 04/03/18 10:32 Tylenol Oral Solution - GT 650 mg Q6H PRN Administration FEVER Amino Acids 30 ml 04/03/18 08:00 04/04/18 09:26 Prosource No Carb Liquid Pkt GT 30 ml DAILY@0800 [facility]ARPAL Administration Amlodipine Besylate 10 mg 03/24/18 10:00 04/04/18 09:27 Norvasc - GT 10 mg DAILY [facility] Administration Collagenase 1 applic 03/24/18 10:00 04/04/18 09:27 Santyl - TP 1 applic DAILY [facility] Administration Protocol Docusate Sodium 100 mg 03/23/18 19:18 03/29/18 10:34 Colace Liquid - GT 100 mg DAILY PRN Administration CONSTIPATION Emollient Ointment 1 applic 03/24/18 10:00 04/04/18 09:31 Aquaphor - TP 1 applic DAILY [facility]AL Administration Glucagon 1 mg 03/23/18 19:18 Glucagon - SQ Q15M PRN HYPOGLYCEMIA Insulin Aspart 1 vial 03/23/18 22:00 04/04/18 12:10 Novolog Vial Sliding Scale - SQ Not Given ACHS [facility] Protocol Lactobacillus Acidophilus 1 tab 03/24/18 10:00 04/04/18 09:26 Bacid - GT 1 tab DAILY [facility]ARP[facility] Administration Metoprolol Tartrate 25 mg 03/23/18 22:00 04/04/18 09:27 Lopressor - GT 25 mg BID HARPAL Administration Mirtazapine 15 mg 03/23/18 22:00 04/03/18 21:34 Remeron - GT 15 mg HS [facility]ARPAL Administration Senna 2 tab 03/23/18 19:18 Senna - PO HS PRN CONSTIPATION Impression 1. ESRD 2. failed kidney transplant 3. hx DM 4. Hx HTN 5. sacral ulcer 6. post op infection 7. c.diff 8. a-fib 9. failure to thrive 10.malnutrition 11. anemia 12. GI bleed 13. PNA 14. hyperkalemia Plan - pt tolerated HD yesterday - use nepro for feeds secondary to hyperkalemia - epogen for anemia - follow labs - will follow Dr Winters
--- NOTE | 2018-04-04 14:56 | PN ---
Physical Exam: SUBJECTIVE: Patient seen and examined at bedside. Episode of vomiting early this am. OBJECTIVE: Vital Signs Period Temp Pulse Resp BP Sys/Franco Pulse Ox Last 24 Hr 97.5 F-98.7 F 74-91 16-18 130-150/66-100 95-100 GENERAL: NAD HEAD: NC/AT EYES: EOMI ENT: MMM LUNGS: Poor inspiratory effort . HEART: RRR No MRG appreciated ABDOMEN: Nontender Nondistended PEg intact EXTREMITIES: Frail, diffuse muscle atrophy . Laboratory Results - last 24 hr 04/03/18 04/03/18 04/03/18 14:30 14:30 16:53 WBC 9.5 RBC 3.04 L Hgb 9.6 L Hct 30.3 L D MCV 99.7 H MCH 31.5 MCHC 31.6 L RDW 20.0 H Plt Count 262 MPV 9.6 Sodium 137 Potassium 5.1 Chloride 99 Carbon Dioxide 30 Anion Gap 8 BUN 42 H Creatinine 3.0 H Creat Clearance w eGFR 15.09 POC Glucometer 113 Random Glucose 65 L Calcium 8.2 L Phosphorus 5.1 H Total Bilirubin 0.3 AST 49 H ALT 23 Alkaline Phosphatase 185 H Total Protein 6.9 Albumin 1.6 L 04/03/18 04/04/18 04/04/18 21:37 05:03 06:12 WBC RBC Hgb Hct MCV MCH MCHC RDW Plt Count MPV Sodium Potassium Chloride Carbon Dioxide Anion Gap BUN Creatinine Creat Clearance w eGFR POC Glucometer 124 72 85 Random Glucose Calcium Phosphorus Total Bilirubin AST ALT Alkaline Phosphatase Total Protein Albumin 04/04/18 11:33 WBC RBC Hgb Hct MCV MCH MCHC RDW Plt Count MPV Sodium Potassium Chloride Carbon Dioxide Anion Gap BUN Creatinine Creat Clearance w eGFR POC Glucometer 72 Random Glucose Calcium Phosphorus Total Bilirubin AST ALT Alkaline Phosphatase Total Protein Albumin Active Medications Generic Name Dose Route Start Last Admin Trade Name Freq PRN Reason Stop Dose Admin Acetaminophen 650 mg 03/23/18 19:18 04/03/18 10:32 Tylenol Oral Solution - GT 650 mg Q6H PRN Administration FEVER Amino Acids 30 ml 04/03/18 08:00 04/04/18 09:26 Prosource No Carb Liquid Pkt GT 30 ml DAILY@0800 [facility] Administration Amlodipine Besylate 10 mg 03/24/18 10:00 04/04/18 09:27 Norvasc - GT 10 mg DAILY [facility] Administration Collagenase 1 applic 03/24/18 10:00 04/04/18 09:27 Santyl - TP 1 applic DAILY [facility] Administration Protocol Docusate Sodium 100 mg 03/23/18 19:18 03/29/18 10:34 Colace Liquid - GT 100 mg DAILY PRN Administration CONSTIPATION Emollient Ointment 1 applic 03/24/18 10:00 04/04/18 09:31 Aquaphor - TP 1 applic DAILY [facility] Administration Epoetin Abe 11,000 unit 04/05/18 13:06 Epogen - IVPUSH 04/05/18 13:07 ONCE ONE Glucagon 1 mg 03/23/18 19:18 Glucagon - SQ Q15M PRN HYPOGLYCEMIA Sodium Chloride 250 mls @ 3,000 mls/hr 04/04/18 13:06 Normal Saline - IV 04/05/18 13:06 PRN PRN Hypotension during Dialysis Insulin Aspart 1 vial 03/23/18 22:00 04/04/18 12:10 Novolog Vial Sliding Scale - SQ Not Given ACHS [facility] Protocol Lactobacillus Acidophilus 1 tab 03/24/18 10:00 04/04/18 09:26 Bacid - GT 1 tab DAILY [facility] Administration Metoprolol Tartrate 25 mg 03/23/18 22:00 04/04/18 09:27 Lopressor - GT 25 mg BID [facility] Administration Mirtazapine 15 mg 03/23/18 22:00 04/03/18 21:34 Remeron - GT 15 mg HS [facility] Administration Senna 2 tab 03/23/18 19:18 Senna - PO HS PRN CONSTIPATION ASSESSMENT/PLAN: Patient is a 77 year old female with history of ESRD on HD Mon, Wed, Fri, s/p kidney transplant 10/08, diabetes mellitus, hypertension, Afib not on anticoagulation due to GI bleed on prior admission, recently discharged from [facility], presents for complaint of sacral ulcer, requiring wound care. #Malnutrition Tolerating tube feeds. Feeds changed to Nepro in light of hyperkalemia. -Social Work on board and has reached out to family to confirm. -[facility] aware faxed d/c summary and HD flowsheets to [facility] to reinstate patient's Dialysis schedule. Pt set up for HD at [facility]. -Episode of Vomiting: yesterday approx 12:30pm patient vomited approx. moderate amount of undigested feed -Episode of vomiting early this am, 04/04/18. -Per cage unloader---> TF Nepro 4 x daily with 225 ml each feeding ( 6 am, 11 am, 3pm, 6 pm) with 50 ml water before and after. Recommend decreasing additional water to 100 ml once daily. Recommend adding Reglan to improve motility #Stage IV sacral decubitus ulcer -Surgery--> Santyl to sacrum daily, Alleven over sacrum, Alleven over b/l heels , Offload pressure areas with frequent repositioning, 02/26/18 CT Abd/Pelvis--> No CT Evidence of osteomyelitis. #ESRD on hemodialysis -Nephrology-Dr Winters on board. - Epogen per renal. -HD as outpatient. Will attend [facility] -HD 04/03/18---> WELL TOLERATED. VSS. 1.5 KG WT REMOVED. -Potassium 04/01/18 6.4, Potassium 04/03/18 5.1 #C. Difficile infection -Vanco 125 po every 2 days per week for 2 weeks. -Contact precautions #Atrial fibrillation -Lopressor 25 po bid -No AC at this time due to h/o G.I bleed on last admission. #Hypertension -Continue Norvasc 10 mg PO daily #FEN No I.V access, no fluids Monitor electrolytes Nepro Tube Feeds. Per RD--> Dysphagia Renal/chopped/nectar thick liquids PO diet Prophylaxis No anticoagulation in light of G.I bleed on previous admission. Disposition- Med-Surg Visit type - Emergency Visit Emergency Visit: Yes ED Registration Date: 02/27/18 Care time: The patient presented to the Emergency Department on the above date and was hospitalized for further evaluation of their emergent condition. - New Patient This patient is new to me today: No - Critical Care Critical Care patient: No - Discharge Referral Referred to [facility] Med P.C.: No
--- NOTE | 2018-04-04 17:45 | PN ---
Teaching Attending Note Name of Resident: Fernando Ricci ATTENDING PHYSICIAN STATEMENT I saw and evaluated the patient. I reviewed the resident's note and discussed the case with the resident. I agree with the resident's findings and plan as documented. SUBJECTIVE: Patient vomited this morning. OBJECTIVE: Vital Signs Period Temp Pulse Resp BP Sys/Franco Pulse Ox Last 24 Hr 97.5 F-98.7 F 75-84 16-18 130-150/66-82 95-100 HEART: S1S2, RRR LUNGS: Clear ABDOMEN: Soft, non-tender, non-distended, normal BS EXTREMITIES: No edema Laboratory Results - last 24 hr 04/03/18 04/03/18 04/04/18 14:30 21:37 05:03 Sodium 137 Potassium 5.1 Chloride 99 Carbon Dioxide 30 Anion Gap 8 BUN 42 H Creatinine 3.0 H Creat Clearance w eGFR 15.09 POC Glucometer 124 72 Random Glucose 65 L Calcium 8.2 L Phosphorus 5.1 H Total Bilirubin 0.3 AST 49 H ALT 23 Alkaline Phosphatase 185 H Total Protein 6.9 Albumin 1.6 L 04/04/18 04/04/18 06:12 11:33 Sodium Potassium Chloride Carbon Dioxide Anion Gap BUN Creatinine Creat Clearance w eGFR POC Glucometer 85 72 Random Glucose Calcium Phosphorus Total Bilirubin AST ALT Alkaline Phosphatase Total Protein Albumin Current Medications Generic Name Dose Route Start Last Admin Trade Name Freq PRN Reason Stop Dose Admin Acetaminophen 650 mg 03/23/18 19:18 04/03/18 10:32 Tylenol Oral Solution - GT 650 mg Q6H PRN Administration FEVER Amino Acids 30 ml 04/03/18 08:00 04/04/18 09:26 Prosource No Carb Liquid Pkt GT 30 ml DAILY@0800 [facility] Administration Amlodipine Besylate 10 mg 03/24/18 10:00 04/04/18 09:27 Norvasc - GT 10 mg DAILY HARPAL Administration Collagenase 1 applic 03/24/18 10:00 04/04/18 09:27 Santyl - TP 1 applic DAILY [facility] Administration Protocol Docusate Sodium 100 mg 03/23/18 19:18 03/29/18 10:34 Colace Liquid - GT 100 mg DAILY PRN Administration CONSTIPATION Emollient Ointment 1 applic 03/24/18 10:00 04/04/18 09:31 Aquaphor - TP 1 applic DAILY [facility] Administration Epoetin Abe 11,000 unit 12/14/18 13:06 Epogen - IVPUSH 04/05/18 13:07 ONCE ONE Glucagon 1 mg 03/23/18 19:18 Glucagon - SQ Q15M PRN HYPOGLYCEMIA Sodium Chloride 250 mls @ 3,000 mls/hr 04/04/18 13:06 Normal Saline - IV 04/05/18 13:06 PRN PRN Hypotension during Dialysis Insulin Aspart 1 vial 03/23/18 22:00 04/04/18 17:04 Novolog Vial Sliding Scale - SQ Not Given ACHS HARPAL Protocol Lactobacillus Acidophilus 1 tab 03/24/18 10:00 04/04/18 09:26 Bacid - GT 1 tab DAILY [facility] Administration Metoprolol Tartrate 25 mg 03/23/18 22:00 04/04/18 09:27 Lopressor - GT 25 mg BID HARPAL Administration Mirtazapine 15 mg 03/23/18 22:00 04/03/18 21:34 Remeron - GT 15 mg HS HARPAL Administration Senna 2 tab 03/23/18 19:18 Senna - PO HS PRN CONSTIPATION ASSESSMENT AND PLAN: This is a 77 year old woman with a history of ESRD, failed kidney transplant, fecal transplant for C. difficile colitis, depression, HTN, type 2 DM, atrial fib, diverticular bleed who presented to the ED for evaluation of a sacral wound. 1. Stage 4 sacral pressure ulcer - No evidence of osteomyelitis - Continue local wound care with Santyl 2. Severe protein calorie malnutrition - s/p PEG 03/18 - Hold feeds secondary to vomiting - dietitian recommends changing to Nepro gravity feeds 225 cc 4x daily 3. Ileus - Patient vomited yesterday afternoon and again this morning - Check abdominal x-rays 4. Hypokalemia/hyperkalemia - Improved 5. Depression - Continue Remeron 6. Pneumonia, probable aspiration - Completed antibiotics 7. C. difficile colitis - s/p fecal transplant - Completed course of Vancomycin 8. Anemia - Hemoglobin stable - Continue Epogen 9. ESRD - s/p failed renal transplant - Continue HD 10. HTN - Continue Lopressor, Norvasc 11. History of atrial fib - Remains in sinus rhythm - Continue Lopressor - Not on anticoagulation secondary to recent GI bleed 12. Type 2 DM - Continue Novolog sliding scale - Continue to monitor for hypoglycemia - Glucagon as needed
[2018-04-04] MEDS: MIRTAZAPINE 15 MG TABLET (FP) GT SCH (21:26)
[2018-04-05] MEDS: INSULIN SLIDING SCALE (NOVOLOG) 1 VIAL SQ SCH ×4 (06:03→21:37)
[2018-04-05] MEDS ORDERED: SODIUM CHLORIDE 250 ML IV PRN (08:00)
[2018-04-05] MEDS: AMINO ACIDS/PROTEIN HYDROLYS 30 ML LIQUID.PKT GT SCH (08:31)
[2018-04-05 08:57] LABS: HEMATOCRIT 30.8 % (32.4-45.2); HEMOGLOBIN 9.8 GM/dL (10.7-15.3); MCH 32.1 pg (25.7-33.7); MEAN CELL VOLUME 100.3 fl (80-96); MEAN PLT VOLUME 9.2 fl (7.5-11.1); PLATELET COUNT 256 K/MM3 (134-434); RBC 3.07 M/mm3 (3.60-5.2); RDW 19.7 % (11.6-15.6); WHITE BLOOD COUNT 5.7 K/mm3 (4.0-10.0)
[2018-04-05] MEDS ORDERED: EPOETIN ALFA IVPUSH ONE (09:00)
[2018-04-05 09:17] LABS: ALBUMIN 1.6 g/dl (3.4-5.0); ALK PHOS 173 U/L (45-117); ANION GAP 8 MMOL/L (8-16); BILIRUBIN,TOTAL 0.4 mg/dL (0.2-1); BLOOD UREA NITROGEN 26 mg/dL (7-18); CALCIUM 8.2 mg/dL (8.5-10.1); CHLORIDE 101 mmol/L (98-107); CO2 31 mmol/L (21-32); CREATININE 2.6 mg/dL (0.55-1.3); GLUCOSE,RANDOM 75 mg/dL (74-106); POTASSIUM 3.8 mmol/L (3.5-5.1); SGOT/AST 34 U/L (15-37); SGPT/ALT 19 U/L (13-61); SODIUM 140 mmol/L (136-145); TOT PROT 6.9 g/dl (6.4-8.2)
--- NOTE | 2018-04-05 10:43 | PN ---
Progress Note, Physician History of Present Illness: Pt seen and examined at bedside. She is tolerating HD. - Current Medication List Current Medications: Active Medications Acetaminophen (Tylenol Oral Solution -) 650 mg GT Q6H PRN PRN Reason: FEVER Last Admin: 04/03/18 10:32 Dose: 650 mg Amino Acids (Prosource No Carb Liquid Pkt) 30 ml GT DAILY@0800 [facility] Last Admin: 04/04/18 09:26 Dose: 30 ml Amlodipine Besylate (Norvasc -) 10 mg GT DAILY [facility] Last Admin: 04/04/18 09:27 Dose: 10 mg Collagenase (Santyl -) 1 applic TP DAILY [facility]ARP[facility]; Protocol Last Admin: 04/04/18 09:27 Dose: 1 applic Docusate Sodium (Colace Liquid -) 100 mg GT DAILY PRN PRN Reason: CONSTIPATION Last Admin: 03/29/18 10:34 Dose: 100 mg Emollient Ointment (Aquaphor -) 1 applic TP DAILY [facility] Last Admin: 04/04/18 09:31 Dose: 1 applic Glucagon (Glucagon -) 1 mg SQ Q15M PRN PRN Reason: HYPOGLYCEMIA Sodium Chloride (Normal Saline -) 250 mls @ 3,000 mls/hr IV PRN PRN PRN Reason: Hypotension during Dialysis Stop: 04/05/18 16:00 Insulin Aspart (Novolog Vial Sliding Scale -) 1 vial SQ ACHS [facility]; Protocol Last Admin: 04/05/18 06:03 Dose: Not Given Lactobacillus Acidophilus (Bacid -) 1 tab GT DAILY [facility] Last Admin: 04/04/18 09:26 Dose: 1 tab Metoprolol Tartrate (Lopressor -) 25 mg GT BID [facility] Last Admin: 04/04/18 21:26 Dose: 25 mg Mirtazapine (Remeron -) 15 mg GT HS [facility] Last Admin: 04/04/18 21:26 Dose: 15 mg Senna (Senna -) 2 tab PO HS PRN PRN Reason: CONSTIPATION - Objective Vital Signs: Vital Signs Temperature 97.8 F 04/05/18 07:46 Pulse Rate 74 04/05/18 09:45 Respiratory Rate 18 04/05/18 09:45 Blood Pressure 131/76 04/05/18 09:45 O2 Sat by Pulse Oximetry (%) 92 L 04/05/18 07:47 Constitutional: Yes: Calm Eyes: Yes: Conjunctiva Clear HENT: Yes: Atraumatic Neck: Yes: Supple Cardiovascular: Yes: S1, S2 Respiratory: Yes: CTA Bilaterally Gastrointestinal: Yes: WNL Genitourinary: Yes: Incontinence Musculoskeletal: Yes: Muscle Weakness Edema: No Neurological: Yes: Confusion Labs: CBC, BMP 04/05/18 07:15 04/05/18 08:11 INR, PTT INR 1.13 (0.83-1.09) H 03/18/18 06:00 Problem List - Problems (1) ESRD (end stage renal disease) on dialysis Code(s): N18.6 - END STAGE RENAL DISEASE; Z99.2 - DEPENDENCE ON RENAL DIALYSIS (2) Sacral decubitus ulcer Code(s): L89.159 - PRESSURE ULCER OF SACRAL REGION, UNSPECIFIED STAGE Qualifiers: Pressure injury stage: stage 4 Qualified Code(s): L89.154 - Pressure ulcer of sacral region, stage 4 Assessment/Plan Current Medications Generic Name Dose Route Start Last Admin Trade Name Freq PRN Reason Stop Dose Admin Acetaminophen 650 mg 03/23/18 19:18 04/03/18 10:32 Tylenol Oral Solution - GT 650 mg Q6H PRN Administration FEVER Amino Acids 30 ml 04/03/18 08:00 04/04/18 09:26 Prosource No Carb Liquid Pkt GT 30 ml DAILY@0800 [facility] Administration Amlodipine Besylate 10 mg 03/24/18 10:00 04/04/18 09:27 Norvasc - GT 10 mg DAILY [facility] Administration Collagenase 1 applic 03/24/18 10:00 04/04/18 09:27 Santyl - TP 1 applic DAILY [facility] Administration Protocol Docusate Sodium 100 mg 03/23/18 19:18 03/29/18 10:34 Colace Liquid - GT 100 mg DAILY PRN Administration CONSTIPATION Emollient Ointment 1 applic 03/24/18 10:00 04/04/18 09:31 Aquaphor - TP 1 applic DAILY [facility] Administration Glucagon 1 mg 03/23/18 19:18 Glucagon - SQ Q15M PRN HYPOGLYCEMIA Sodium Chloride 250 mls @ 3,000 mls/hr 04/05/18 08:00 Normal Saline - IV 04/05/18 16:00 PRN PRN Hypotension during Dialysis Insulin Aspart 1 vial 03/23/18 22:00 04/05/18 06:03 Novolog Vial Sliding Scale - SQ Not Given ACHS [facility] Protocol Lactobacillus Acidophilus 1 tab 03/24/18 10:00 04/04/18 09:26 Bacid - GT 1 tab DAILY [facility] Administration Metoprolol Tartrate 25 mg 03/23/18 22:00 04/04/18 21:26 Lopressor - GT 25 mg BID [facility] Administration Mirtazapine 15 mg 03/23/18 22:00 04/04/18 21:26 Remeron - GT 15 mg HS [facility] Administration Senna 2 tab 03/23/18 19:18 Senna - PO HS PRN CONSTIPATION Impression 1. ESRD 2. failed kidney transplant 3. hx DM 4. Hx HTN 5. sacral ulcer 6. post op infection 7. c.diff 8. a-fib 9. failure to thrive 10.malnutrition 11. anemia 12. GI bleed 13. PNA 14. hyperkalemia Plan - HD today - pt pending placement - cont nepro - encourage PO intake - use nepro for feeds secondary to hyperkalemia - epogen for anemia - will follow Dr Winters
[2018-04-05] MEDS: LACTOBACILLUS ACIDOPHILUS 1 TABLET GT SCH (11:31)
[2018-04-05] MEDS: MINERAL OIL/PET HY-PHL TOPICAL OINTMENT 454 GM JAR TP SCH (11:32)
[2018-04-05] MEDS: COLLAGENASE CLOSTRIDIUM HIST. 30 GRAMS TUBE TP SCH (11:32)
[2018-04-05] MEDS: amLODIPine BESYLATE 10 MG TABLET (FP) GT SCH (11:32)
[2018-04-05] MEDS: METOPROLOL TARTRATE 25 MG TABLET (FP) GT SCH ×2 (11:32→21:36)
[2018-04-05] MEDS ORDERED: EPOETIN ALFA 2,000 UNIT/1 ML VIAL IVPUSH ONE (13:06)
[2018-04-05] MEDS ORDERED: INSULIN SLIDING SCALE (NOVOLOG) 1 VIAL SQ ONE (17:20)
[2018-04-05] MEDS ORDERED: PT OWN MED DRAWER 7, Y5N ONE (17:21)
--- NOTE | 2018-04-05 17:57 | PN ---
Teaching Attending Note Name of Resident: Fernando Ricci ATTENDING PHYSICIAN STATEMENT I saw and evaluated the patient. I reviewed the resident's note and discussed the case with the resident. I agree with the resident's findings and plan as documented. SUBJECTIVE: Feels okay - no further vomiting since yesterday. HD ongoing. No abdominal pain. OBJECTIVE: Afebrile, Hemodynamically stable. Last Vital Signs Temp Pulse Resp BP Pulse Ox 98.1 F 75 18 157/76 92 L 04/05/18 16:45 04/05/18 16:45 04/05/18 16:45 04/05/18 16:45 04/05/18 07:47 HEENT - Atraumatic, Normocephalic Heart - loud SM Lungs - clear to auscultation. R permacath Abdomen - soft, non-tender. Bowel Sounds normal. PEG site clean. Extremities - no edema. No calf tenderness Laboratory Results - last 24 hr 04/04/18 04/05/18 04/05/18 21:35 05:23 07:15 WBC 5.7 RBC 3.07 L Hgb 9.8 L Hct 30.8 L MCV 100.3 H MCH 32.1 MCHC 32.0 RDW 19.7 H Plt Count 256 MPV 9.2 Sodium Potassium Chloride Carbon Dioxide Anion Gap BUN Creatinine Creat Clearance w eGFR POC Glucometer 83 75 Random Glucose Calcium Total Bilirubin AST ALT Alkaline Phosphatase Total Protein Albumin 04/05/18 04/05/18 04/05/18 08:11 12:23 16:29 WBC RBC Hgb Hct MCV MCH MCHC RDW Plt Count MPV Sodium 140 Potassium 3.8 Chloride 101 Carbon Dioxide 31 Anion Gap 8 BUN 26 H Creatinine 2.6 H Creat Clearance w eGFR 17.80 POC Glucometer 89 82 Random Glucose 75 Calcium 8.2 L Total Bilirubin 0.4 AST 34 ALT 19 Alkaline Phosphatase 173 H Total Protein 6.9 Albumin 1.6 L Current Medications Generic Name Dose Route Start Last Admin Trade Name Freq PRN Reason Stop Dose Admin Acetaminophen 650 mg 03/23/18 19:18 04/03/18 10:32 Tylenol Oral Solution - GT 650 mg Q6H PRN Administration FEVER Amino Acids 30 ml 04/03/18 08:00 04/05/18 08:31 Prosource No Carb Liquid Pkt GT 30 ml DAILY@0800 [facility] Administration Amlodipine Besylate 10 mg 03/24/18 10:00 04/05/18 11:32 Norvasc - GT 10 mg DAILY [facility] Administration Collagenase 1 applic 03/24/18 10:00 04/05/18 11:32 Santyl - TP 1 applic DAILY [facility] Administration Protocol Docusate Sodium 100 mg 03/23/18 19:18 03/29/18 10:34 Colace Liquid - GT 100 mg DAILY PRN Administration CONSTIPATION Emollient Ointment 1 applic 03/24/18 10:00 04/05/18 11:32 Aquaphor - TP 1 applic DAILY [facility] Administration Glucagon 1 mg 03/23/18 19:18 Glucagon - SQ Q15M PRN HYPOGLYCEMIA Insulin Aspart 1 vial 03/23/18 22:00 04/05/18 17:12 Novolog Vial Sliding Scale - SQ Not Given ACHS [facility] Protocol Lactobacillus Acidophilus 1 tab 03/24/18 10:00 04/05/18 11:31 Bacid - GT 1 tab DAILY [facility] Administration Metoprolol Tartrate 25 mg 03/23/18 22:00 04/05/18 11:32 Lopressor - GT 25 mg BID [facility] Administration Mirtazapine 15 mg 03/23/18 22:00 04/04/18 21:26 Remeron - GT 15 mg HS [facility] Administration Senna 2 tab 03/23/18 19:18 Senna - PO HS PRN CONSTIPATION ASSESSMENT AND PLAN: 77 year old female with ESRD on HD, s/p failed kidney transplant, s/p fecal transplant for C. difficile colitis, depression, HTN, DM 2, Atrial fibrillation , diverticular bleed who presented to the ED for evaluation of a sacral wound. 1. Stage 4 sacral decubitus ulcer - No evidence of osteomyelitis. Continue local wound care with Santyl. 2. Failure to thrive/Severe protein calorie malnutrition s/p PEG 03/18 Tolerating feeds without vomiting overnight or today - Nepro gravity feeds 225 cc 4x daily AXR - no obstruction/perforation Medically stable for discharge. 3. Hypokalemia/hyperkalemia - resolved on HD 4. Depression - Continue Remeron 5. Pneumonia, probable aspiration - Completed antibiotic course. 6. History of C. difficile colitis s/p fecal transplant. Completed course of Vancomycin. 7. Anemia secondary to ESRD - H/H stable. Continue Epogen. 8. ESRD s/p failed renal transplant - Continue HD 9. HTN - Continue Lopressor, Norvasc 10. History of Atrial fibrillation - in SR - Continue Lopressor. Not on anticoagulation secondary to recent GI bleed. 11. DM 2 - Continue Novolog sliding scale.
--- NOTE | 2018-04-05 18:07 | PN ---
Physical Exam: SUBJECTIVE: Patient seen and examined at bedside. No vomiting overnight. HD today. OBJECTIVE: Vital Signs Period Temp Pulse Resp BP Sys/Franco Pulse Ox Last 24 Hr 97.8 F-98.9 F 60-92 16-18 101-161/62-88 92-92 GENERAL: NAD, Resting in bed HEAD: Atraumatic Normocephalic EYES: EOMI ENT: MMM LUNGS: Poor inspiratory effort . HEART: RRR SM? ABDOMEN: Nontender Nondistended PEG intact, no erythema or signs of infection. EXTREMITIES: Frail, diffuse muscle atrophy . Laboratory Results - last 24 hr 04/04/18 04/05/18 04/05/18 21:35 05:23 07:15 WBC 5.7 RBC 3.07 L Hgb 9.8 L Hct 30.8 L MCV 100.3 H MCH 32.1 MCHC 32.0 RDW 19.7 H Plt Count 256 MPV 9.2 Sodium Potassium Chloride Carbon Dioxide Anion Gap BUN Creatinine Creat Clearance w eGFR POC Glucometer 83 75 Random Glucose Calcium Total Bilirubin AST ALT Alkaline Phosphatase Total Protein Albumin 04/05/18 04/05/18 04/05/18 08:11 12:23 16:29 WBC RBC Hgb Hct MCV MCH MCHC RDW Plt Count MPV Sodium 140 Potassium 3.8 Chloride 101 Carbon Dioxide 31 Anion Gap 8 BUN 26 H Creatinine 2.6 H Creat Clearance w eGFR 17.80 POC Glucometer 89 82 Random Glucose 75 Calcium 8.2 L Total Bilirubin 0.4 AST 34 ALT 19 Alkaline Phosphatase 173 H Total Protein 6.9 Albumin 1.6 L Active Medications Generic Name Dose Route Start Last Admin Trade Name Earleq PRN Reason Stop Dose Admin Acetaminophen 650 mg 03/23/18 19:18 04/03/18 10:32 Tylenol Oral Solution - GT 650 mg Q6H PRN Administration FEVER Amino Acids 30 ml 04/03/18 08:00 04/05/18 08:31 Prosource No Carb Liquid Pkt GT 30 ml DAILY@0800 [facility] Administration Amlodipine Besylate 10 mg 03/24/18 10:00 04/05/18 11:32 Norvasc - GT 10 mg DAILY [facility] Administration Collagenase 1 applic 03/24/18 10:00 04/05/18 11:32 Santyl - TP 1 applic DAILY [facility] Administration Protocol Docusate Sodium 100 mg 03/23/18 19:18 03/29/18 10:34 Colace Liquid - GT 100 mg DAILY PRN Administration CONSTIPATION Emollient Ointment 1 applic 03/24/18 10:00 04/05/18 11:32 Aquaphor - TP 1 applic DAILY [facility] Administration Glucagon 1 mg 03/23/18 19:18 Glucagon - SQ Q15M PRN HYPOGLYCEMIA Insulin Aspart 1 vial 03/23/18 22:00 04/05/18 17:12 Novolog Vial Sliding Scale - SQ Not Given ACHS [facility] Protocol Lactobacillus Acidophilus 1 tab 03/24/18 10:00 04/05/18 11:31 Bacid - GT 1 tab DAILY [facility] Administration Metoprolol Tartrate 25 mg 03/23/18 22:00 04/05/18 11:32 Lopressor - GT 25 mg BID [facility] Administration Mirtazapine 15 mg 03/23/18 22:00 04/04/18 21:26 Remeron - GT 15 mg HS [facility] Administration Senna 2 tab 03/23/18 19:18 Senna - PO HS PRN CONSTIPATION ASSESSMENT/PLAN: Patient is a 77 year old female with history of ESRD on HD Mon, Wed, Sun, s/p kidney transplant 10/08, diabetes mellitus, hypertension, Afib not on anticoagulation due to GI bleed on prior admission, recently discharged from [facility], presents for complaint of sacral ulcer, requiring wound care. #Malnutrition Tolerating tube feeds. Feeds changed to Nepro in light of hyperkalemia. -Social Work on board and has reached out to family to confirm. -[facility] aware faxed d/c summary and HD flowsheets to [facility] to reinstate patient's Dialysis schedule. Pt set up for HD at [facility]. -Episode of vomiting 04/04/18. -Per data warehousing manager---> TF Nepro 4 x daily with 225 ml each feeding ( 6 am, 11 am, 3pm, 6 pm) with 50 ml water before and after. Recommend decreasing additional water to 100 ml once daily. Recommend adding Reglan to improve motility -KUB --> No obstruction/perforation. #Stage IV sacral decubitus ulcer -Surgery--> Santyl to sacrum daily, Alleven over sacrum, Alleven over b/l heels , Offload pressure areas with frequent repositioning, 02/26/18 CT Abd/Pelvis--> No CT Evidence of osteomyelitis. #ESRD on hemodialysis -Nephrology-Dr Winters on board. -Epogen per renal. -HD as outpatient. Will attend [facility] -HD today 04/05/18 -Potassium today 04/05/18 3.8, Potassium 04/03/18--> 5.1 #C. Difficile infection -Completed course #Atrial fibrillation -Lopressor 25 po bid -No AC at this time due to h/o G.I bleed on last admission. #Hypertension -Continue Norvasc 10 mg PO daily #FEN No I.V access, no fluids Monitor electrolytes Nepro Tube Feeds. Per --> Dysphagia Renal/chopped/nectar thick liquids PO diet Prophylaxis No anticoagulation in light of G.I bleed on previous admission. Disposition- Med-Surg. Visit type - Emergency Visit Emergency Visit: Yes ED Registration Date: 02/27/18 Care time: The patient presented to the Emergency Department on the above date and was hospitalized for further evaluation of their emergent condition. - New Patient This patient is new to me today: No - Critical Care Critical Care patient: No - Discharge Referral Referred to [facility] Med P.C.: No
[2018-04-05] MEDS: MIRTAZAPINE 15 MG TABLET (FP) GT SCH (21:37)
[2018-04-06] MEDS: INSULIN SLIDING SCALE (NOVOLOG) 1 VIAL SQ SCH ×4 (08:08→21:39)
[2018-04-06] MEDS: AMINO ACIDS/PROTEIN HYDROLYS 30 ML LIQUID.PKT GT SCH (09:00)
[2018-04-06] MEDS ORDERED: PT OWN MED DRAWER 7, Y5N ONE (09:59)
[2018-04-06] MEDS: MINERAL OIL/PET HY-PHL TOPICAL OINTMENT 454 GM JAR TP SCH (10:01)
[2018-04-06] MEDS: COLLAGENASE CLOSTRIDIUM HIST. 30 GRAMS TUBE TP SCH (10:01)
[2018-04-06] MEDS: LACTOBACILLUS ACIDOPHILUS 1 TABLET GT SCH (10:02)
[2018-04-06] MEDS: METOPROLOL TARTRATE 25 MG TABLET (FP) GT SCH ×2 (10:02→21:39)
[2018-04-06] MEDS: amLODIPine BESYLATE 10 MG TABLET (FP) GT SCH (10:02)
--- NOTE | 2018-04-06 18:16 | PN ---
Progress Note (short form) - Note Progress Note: 77 year old female with ESRD on HD, s/p failed kidney transplant, s/p fecal transplant for C. difficile colitis, depression, HTN, DM 2, Atrial fibrillation , history of diverticular bleed who presented to the ED for evaluation of a sacral wound. Feels okay. No complaints. Denies any discomfort. No further vomiting since . PHYSICAL EXAMINATION Afebrile, Hemodynamically Stable, Frail Last Vital Signs Temp Pulse Resp BP Pulse Ox 98.2 F 82 16 150/75 93 L 04/06/18 14:15 04/06/18 14:15 04/06/18 14:15 04/06/18 14:15 04/06/18 09:00 Neuro - AAO x 1-2. Moves all 4 extremities. HEENT - Atraumatic, Normocephalic Heart - S1, S2, RRR Lungs - few basal crackles Abdomen - Soft, non-tender. PEG site clean. Bowel Sounds normal. Extremities - no edema. No calf tenderness Laboratory Results - last 24 hr 04/05/18 04/05/18 04/06/18 08:11 21:35 05:57 Sodium 140 Potassium 3.8 Chloride 101 Carbon Dioxide 31 Anion Gap 8 BUN 26 H Creatinine 2.6 H Creat Clearance w eGFR 17.80 POC Glucometer 114 72 Random Glucose 75 Calcium 8.2 L Total Bilirubin 0.4 AST 34 ALT 19 Alkaline Phosphatase 173 H Total Protein 6.9 Albumin 1.6 L Vitamin B12 871 Serum Folate 10 04/06/18 04/06/18 11:24 16:52 Sodium Potassium Chloride Carbon Dioxide Anion Gap BUN Creatinine Creat Clearance w eGFR POC Glucometer 126 89 Random Glucose Calcium Total Bilirubin AST ALT Alkaline Phosphatase Total Protein Albumin Vitamin B12 Serum Folate Home Medications Medication Instructions Recorded Lactobacillus Acidophilus [Bacid -] 1 tab PO DAILY #30 tab 02/11/18 Metoprolol Tartrate [Lopressor -] 25 mg PO BID #60 tablet 02/11/18 Miscellaneous Medical Supply 1 each SQ ASDIR #1 kit 02/16/18 [Glucometer Device] Miscellaneous Medical Supply 1 each SQ ASDIR #1 box 02/16/18 [Glucometer Test Strips #50] Miscellaneous Medical Supply 1 each SQ ASDIR #1 box 02/16/18 [Lancets] Miscellaneous Medical Supply 1 each MC ASDIR #1 misc 02/16/18 [Outpatient Order] Amino Acids/Protein Hydrolys 30 ml PO BID #30 liquid.pkt 02/22/18 [Prosource No Carb Liquid Pkt] Amlodipine Besylate [Norvasc -] 10 mg PO DAILY #30 tablet 02/22/18 Collagenase Clostridium Hist. 1 bottle TP DAILY #5 oint...g. 02/22/18 [Santyl] Gauze Bandage [Gauze] 1 each TP DAILY #30 bandage 02/22/18 Nut.tx.imp.renal Fxn,Lac-Reduc 237 ml PO DAILY #30 liquid 02/22/18 [Nepro Carb Steady] Foam Bandage [Allevyn Gentle 1 each TP DAILY #30 bandage 03/28/18 Border Heel] Mirtazapine [Remeron -] 15 mg GT HS #10 tablet 03/28/18 Silver Sulfadiaz/Foam Bandage 1 each TP DAILY #30 bandage 03/28/18 [Allevyn Ag Adhesive 5"X5"] Vancomycin Oral Solution 125 mg PO Q3D@1000 #9 ml 03/28/18 ASSESSMENT/PLAN 77 year old female with ESRD on HD, s/p failed kidney transplant, s/p fecal transplant for C. difficile colitis, depression, HTN, DM 2, Atrial fibrillation , history of diverticular bleed who presented to the ED for evaluation of a sacral wound. 1. Stage 4 sacral decubitus ulcer - No evidence of osteomyelitis. Continue local wound care with Santyl. 2. Failure to thrive/Severe protein calorie malnutrition s/p PEG 03/18 Tolerating feeds without vomiting since 04/04 - Nepro gravity feeds 225 cc 4x daily AXR - no obstruction/perforation Medically stable for discharge. Discharge postponed yesterday as case management was not able to contact patient 's sons. This appears to be the case again today. 3. Hypokalemia/hyperkalemia - resolved on HD 4. Depression - Continue Remeron 5. Pneumonia, probable aspiration - Completed antibiotic course. 6. History of C. difficile colitis s/p fecal transplant. On maintenance Vancomycin q3d. 7. Anemia secondary to ESRD - H/H stable. Continue Epogen. 8. ESRD s/p failed renal transplant - Continue HD 9. HTN - Continue Lopressor, Norvasc 10. History of Atrial fibrillation - in SR - Continue Lopressor. Not on anticoagulation secondary to history of GI bleed. 11. DM 2 - Continue Novolog sliding scale. 12. Cognitive Impairment, likely Dementia without behavioral disturbance. Oriented x 1-2 (knows she is in hospital but thinks its [facility] despite being corrected daily). Continue Remeron. 13. Macrocytic Anemia- B12 and Folate wnl. May benefit from out-patient Hematology evaluation. DVT Px - SCDs Visit type - Emergency Visit Emergency Visit: Yes ED Registration Date: 02/27/18 Care time: The patient presented to the Emergency Department on the above date and was hospitalized for further evaluation of their emergent condition. - New Patient This patient is new to me today: No - Critical Care Critical Care patient: No - Discharge Referral Referred to [facility] Med P.C.: No
[2018-04-06] MEDS: MIRTAZAPINE 15 MG TABLET (FP) GT SCH (21:38)
[2018-04-07] MEDS: INSULIN SLIDING SCALE (NOVOLOG) 1 VIAL SQ SCH ×4 (06:13→21:20)
[2018-04-07] MEDS: LACTOBACILLUS ACIDOPHILUS 1 TABLET GT SCH (09:33)
[2018-04-07] MEDS: METOPROLOL TARTRATE 25 MG TABLET (FP) GT SCH ×2 (09:33→21:14)
[2018-04-07] MEDS: amLODIPine BESYLATE 10 MG TABLET (FP) GT SCH (09:33)
[2018-04-07] MEDS: ACETAMINOPHEN 650 MG/20.3 ML ORAL SOLUTION (CUPS) GT PRN (09:34)
[2018-04-07] MEDS: MINERAL OIL/PET HY-PHL TOPICAL OINTMENT 454 GM JAR TP SCH (09:36)
[2018-04-07] MEDS: AMINO ACIDS/PROTEIN HYDROLYS 30 ML LIQUID.PKT GT SCH (09:36)
[2018-04-07] MEDS: COLLAGENASE CLOSTRIDIUM HIST. 30 GRAMS TUBE TP SCH (09:36)
--- NOTE | 2018-04-07 14:43 | PN ---
Teaching Attending Note Name of Resident: Fernando Ricci ATTENDING PHYSICIAN STATEMENT I saw and evaluated the patient. I reviewed and discussed the case with the resident. I agree with the resident's findings and plan as documented. SUBJECTIVE: Feels okay - complains of discomfort from decubitus ulcer. No further vomiting. no fever/chills. No abdominal pain. OBJECTIVE: Afebrile, Hemodynamically Stable. Cachectic. Last Vital Signs Temp Pulse Resp BP Pulse Ox 97.8 F 82 16 128/76 93 L 04/07/18 08:04 04/07/18 08:04 04/07/18 08:04 04/07/18 08:04 04/07/18 08:03 Neuro AAO x 1-2. Slow to respond. Moving all 4 extremities. HEENT - Atraumatic, Normocephalic. Heart - S1, S2, RRR Lungs - clear to auscultation. Abdomen - PEG site clean. Soft, non-tender. Bowel Sounds normal. Extremities - no edema. No calf tenderness. Laboratory Results - last 24 hr 04/06/18 04/06/18 04/07/18 16:52 20:27 05:46 POC Glucometer 89 182 82 04/07/18 11:35 POC Glucometer 106 Current Medications Generic Name Dose Route Start Last Admin Trade Name Freq PRN Reason Stop Dose Admin Acetaminophen 650 mg 03/23/18 19:18 04/07/18 09:34 Tylenol Oral Solution - GT 650 mg Q6H PRN Administration FEVER Amino Acids 30 ml 04/03/18 08:00 04/07/18 09:36 Prosource No Carb Liquid Pkt GT 30 ml DAILY@0800 [facility] Administration Amlodipine Besylate 10 mg 03/24/18 10:00 04/07/18 09:33 Norvasc - GT 10 mg DAILY [facility] Administration Collagenase 1 applic 03/24/18 10:00 04/07/18 09:36 Santyl - TP 1 applic DAILY [facility] Administration Protocol Docusate Sodium 100 mg 03/23/18 19:18 03/29/18 10:34 Colace Liquid - GT 100 mg DAILY PRN Administration CONSTIPATION Emollient Ointment 1 applic 03/24/18 10:00 04/07/18 09:36 Aquaphor - TP 1 applic DAILY [facility] Administration Glucagon 1 mg 03/23/18 19:18 Glucagon - SQ Q15M PRN HYPOGLYCEMIA Insulin Aspart 1 vial 03/23/18 22:00 04/07/18 11:40 Novolog Vial Sliding Scale - SQ Not Given ACHS [facility] Protocol Lactobacillus Acidophilus 1 tab 03/24/18 10:00 04/07/18 09:33 Bacid - GT 1 tab DAILY [facility] Administration Metoprolol Tartrate 25 mg 03/23/18 22:00 04/07/18 09:33 Lopressor - GT 25 mg BID [facility] Administration Mirtazapine 15 mg 03/23/18 22:00 04/06/18 21:38 Remeron - GT 15 mg HS [facility] Administration Senna 2 tab 03/23/18 19:18 Senna - PO HS PRN CONSTIPATION ASSESSMENT AND PLAN: 77 year old female with ESRD on HD, s/p failed kidney transplant, s/p fecal transplant for C. difficile colitis, depression, HTN, DM 2, Atrial fibrillation , history of diverticular bleed who presented to the ED for evaluation of a sacral wound. 1. Stage 4 sacral decubitus ulcer - No evidence of osteomyelitis. Continue local wound care with Santyl. Patient complains of pain associated with ulcer. Will resume morphine po prn. 2. Failure to thrive/Severe protein calorie malnutrition s/p PEG 03/18/Frail Tolerating feeds without vomiting since 04/04 - Nepro gravity feeds 225 cc 4x daily AXR - no obstruction/perforation Medically stable for discharge. Discharge postponed for the past 3 days as case management was not able to contact patient's sons. Will need extensive supportive care including wound care, PEG management, nutrition administration supervision, regular turning, regular personal hygiene , HD management - will discuss with case management re: viable disposition plan. Palliative Care consulted 3. Hypokalemia/hyperkalemia - resolved on HD 4. Depression - Continue Remeron 5. Pneumonia, probable aspiration - Completed antibiotic course. 6. History of C. difficile colitis s/p fecal transplant. Previously on Vancomycin. 7. Anemia secondary to ESRD - H/H stable. Continue Epogen as per Renal. 8. ESRD s/p failed renal transplant - Continue HD 9. HTN - Continue Lopressor, Norvasc 10. History of Atrial fibrillation - in SR - Continue Lopressor. Not on anticoagulation secondary to history of GI bleed. 11. DM 2 - Continue Novolog sliding scale. 12. Cognitive Impairment, likely Dementia without behavioral disturbance. Oriented x 1-2 (knows she is in hospital but does not know which one. Continue Remeron. 13. Macrocytic Anemia- B12 and Folate wnl. May benefit from out-patient Hematology evaluation. DVT Px - SCDs
--- NOTE | 2018-04-07 16:38 | PN ---
Physical Exam: SUBJECTIVE: Patient seen and examined at bedside. C/o back pain. No acute events overnight. OBJECTIVE: Vital Signs Period Temp Pulse Resp BP Sys/Franco Pulse Ox Last 24 Hr 97.8 F-98.3 F 71-82 16-16 128-139/60-76 93-93 GENERAL: AAO x 1-2, Facial grimacing to pain HEAD: Atraumatic Normocephalic EYES: EOMI ENT: MMM LUNGS: Poor inspiratory effort . HEART: RRR ABDOMEN: PEG tube intact and working. No signs of infection or erythema around site EXTREMITIES: Cachechtic, frail, diffuse muscle atrophy/wasting Laboratory Results - last 24 hr 04/06/18 04/06/18 04/07/18 16:52 20:27 05:46 POC Glucometer 89 182 82 04/07/18 11:35 POC Glucometer 106 Active Medications Generic Name Dose Route Start Last Admin Trade Name Freq PRN Reason Stop Dose Admin Acetaminophen 650 mg 03/23/18 19:18 04/07/18 09:34 Tylenol Oral Solution - GT 650 mg Q6H PRN Administration FEVER Amino Acids 30 ml 04/03/18 08:00 04/07/18 09:36 Prosource No Carb Liquid Pkt GT 30 ml DAILY@0800 [facility] Administration Amlodipine Besylate 10 mg 03/24/18 10:00 04/07/18 09:33 Norvasc - GT 10 mg DAILY [facility] Administration Collagenase 1 applic 03/24/18 10:00 04/07/18 09:36 Santyl - TP 1 applic DAILY [facility] Administration Protocol Docusate Sodium 100 mg 03/23/18 19:18 03/29/18 10:34 Colace Liquid - GT 100 mg DAILY PRN Administration CONSTIPATION Emollient Ointment 1 applic 03/24/18 10:00 04/07/18 09:36 Aquaphor - TP 1 applic DAILY [facility] Administration Glucagon 1 mg 03/23/18 19:18 Glucagon - SQ Q15M PRN HYPOGLYCEMIA Insulin Aspart 1 vial 03/23/18 22:00 04/07/18 11:40 Novolog Vial Sliding Scale - SQ Not Given ACHS [facility] Protocol Lactobacillus Acidophilus 1 tab 03/24/18 10:00 04/07/18 09:33 Bacid - GT 1 tab DAILY [facility] Administration Metoprolol Tartrate 25 mg 03/23/18 22:00 04/07/18 09:33 Lopressor - GT 25 mg BID [facility] Administration Mirtazapine 15 mg 03/23/18 22:00 04/06/18 21:38 Remeron - GT 15 mg HS [facility] Administration Senna 2 tab 03/23/18 19:18 Senna - PO HS PRN CONSTIPATION ASSESSMENT/PLAN: Patient is a 77 year old female with history of ESRD on HD Mon, Wed, Fri, s/p kidney transplant 10/08, diabetes mellitus, hypertension, Afib not on anticoagulation due to GI bleed on prior admission, recently discharged from [facility], presents for complaint of sacral ulcer, requiring wound care. #Malnutrition Tolerating tube feeds. Feeds changed to Nepro in light of hyperkalemia. -Social Work on board and has reached out to family to confirm. -[facility] aware faxed d/c summary and HD flowsheets to [facility] to reinstate patient's Dialysis schedule. Pt set up for HD at [facility]. -Episode of vomiting 04/04/18. -Per patient resource coordinator---> TF Nepro 4 x daily with 225 ml each feeding ( 6 am, 11 am, 3pm, 6 pm) with 50 ml water before and after. Recommend decreasing additional water to 100 ml once daily. Recommend adding Reglan to improve motility -Discharge postponed for the past 3 days as case management was not able to contact patient's sons. #Stage IV sacral decubitus ulcer -Surgery--> Santyl to sacrum daily, Alleven over sacrum, Alleven over b/l heels , Offload pressure areas with frequent repositioning, 02/26/18 CT Abd/Pelvis--> No CT Evidence of osteomyelitis. #ESRD on hemodialysis -Nephrology-Dr Winters on board. -Epogen per renal. -HD as outpatient. Will attend [facility] -HD today 04/05/18 -Potassium 04/05/18 3.8, Potassium 04/03/18--> 5.1 #C. Difficile infection -Completed course #Atrial fibrillation -Lopressor 25 po bid -No AC at this time due to h/o G.I bleed on last admission. #Hypertension -Continue Norvasc 10 mg PO daily #FEN No I.V access, no fluids Monitor electrolytes Nepro Tube Feeds. Per RD--> Dysphagia Renal/chopped/nectar thick liquids PO diet Prophylaxis No anticoagulation in light of G.I bleed on previous admission. Disposition- Tele Visit type - Emergency Visit Emergency Visit: Yes ED Registration Date: 02/27/18 Care time: The patient presented to the Emergency Department on the above date and was hospitalized for further evaluation of their emergent condition. - New Patient This patient is new to me today: No - Critical Care Critical Care patient: No - Discharge Referral Referred to [facility] Med P.C.: No
[2018-04-07] MEDS ORDERED: PT OWN MED DRAWER 7, Y5N ONE (17:07)
[2018-04-07] MEDS: MIRTAZAPINE 15 MG TABLET (FP) GT SCH (21:14)
[2018-04-08] MEDS: INSULIN SLIDING SCALE (NOVOLOG) 1 VIAL SQ SCH ×3 (06:04→17:07)
[2018-04-08] MEDS: ACETAMINOPHEN 650 MG/20.3 ML ORAL SOLUTION (CUPS) GT PRN (09:13)
[2018-04-08] MEDS: METOPROLOL TARTRATE 25 MG TABLET (FP) GT SCH (09:14)
[2018-04-08] MEDS: AMINO ACIDS/PROTEIN HYDROLYS 30 ML LIQUID.PKT GT SCH (09:14)
[2018-04-08] MEDS: LACTOBACILLUS ACIDOPHILUS 1 TABLET GT SCH (09:14)
[2018-04-08] MEDS: COLLAGENASE CLOSTRIDIUM HIST. 30 GRAMS TUBE TP SCH (09:14)
[2018-04-08] MEDS: MINERAL OIL/PET HY-PHL TOPICAL OINTMENT 454 GM JAR TP SCH (09:14)
[2018-04-08] MEDS: amLODIPine BESYLATE 10 MG TABLET (FP) GT SCH (09:14)
[2018-04-08] MEDS ORDERED: SODIUM CHLORIDE 250 ML IV PRN (13:23)
[2018-04-08] MEDS ORDERED: EPOETIN ALFA 2,000 UNIT/1 ML VIAL IVPUSH ONE (13:23)
--- NOTE | 2018-04-08 13:23 | PN ---
Progress Note, Physician History of Present Illness: Pt seen and examined at bedside. She remains confused. - Current Medication List Current Medications: Active Medications Acetaminophen (Tylenol Oral Solution -) 650 mg GT Q6H PRN PRN Reason: FEVER Last Admin: 04/08/18 09:13 Dose: 650 mg Amino Acids (Prosource No Carb Liquid Pkt) 30 ml GT DAILY@0800 [facility] Last Admin: 04/08/18 09:14 Dose: 30 ml Amlodipine Besylate (Norvasc -) 10 mg GT DAILY [facility] Last Admin: 04/08/18 09:14 Dose: 10 mg Collagenase (Santyl -) 1 applic TP DAILY [facility]; Protocol Last Admin: 04/08/18 09:14 Dose: 1 applic Docusate Sodium (Colace Liquid -) 100 mg GT DAILY PRN PRN Reason: CONSTIPATION Last Admin: 03/29/18 10:34 Dose: 100 mg Emollient Ointment (Aquaphor -) 1 applic TP DAILY [facility] Last Admin: 04/08/18 09:14 Dose: 1 applic Glucagon (Glucagon -) 1 mg SQ Q15M PRN PRN Reason: HYPOGLYCEMIA Insulin Aspart (Novolog Vial Sliding Scale -) 1 vial SQ ACHS [facility]; Protocol Last Admin: 04/08/18 12:30 Dose: Not Given Lactobacillus Acidophilus (Bacid -) 1 tab GT DAILY [facility] Last Admin: 04/08/18 09:14 Dose: 1 tab Metoprolol Tartrate (Lopressor -) 25 mg GT BID [facility] Last Admin: 04/08/18 09:14 Dose: 25 mg Mirtazapine (Remeron -) 15 mg GT HS [facility] Last Admin: 04/07/18 21:14 Dose: 15 mg Senna (Senna -) 2 tab PO HS PRN PRN Reason: CONSTIPATION - Objective Vital Signs: Vital Signs Temperature 97.8 F 04/08/18 10:00 Pulse Rate 64 04/08/18 10:00 Respiratory Rate 20 04/08/18 10:00 Blood Pressure 128/78 04/08/18 10:00 O2 Sat by Pulse Oximetry (%) 93 L 04/08/18 08:51 Constitutional: Yes: Calm Eyes: Yes: Conjunctiva Clear HENT: Yes: Atraumatic Neck: Yes: Supple Cardiovascular: Yes: S1, S2 Respiratory: Yes: CTA Bilaterally Gastrointestinal: Yes: Soft Genitourinary: Yes: Incontinence Musculoskeletal: Yes: Muscle Weakness Edema: No Neurological: Yes: Oriented, Confusion Labs: CBC, BMP 04/05/18 07:15 04/05/18 08:11 INR, PTT INR 1.13 (0.83-1.09) H 03/18/18 06:00 Problem List - Problems (1) ESRD (end stage renal disease) on dialysis Code(s): N18.6 - END STAGE RENAL DISEASE; Z99.2 - DEPENDENCE ON RENAL DIALYSIS (2) Sacral decubitus ulcer Code(s): L89.159 - PRESSURE ULCER OF SACRAL REGION, UNSPECIFIED STAGE Qualifiers: Pressure injury stage: stage 4 Qualified Code(s): L89.154 - Pressure ulcer of sacral region, stage 4 Assessment/Plan Current Medications Generic Name Dose Route Start Last Admin Trade Name Freq PRN Reason Stop Dose Admin Acetaminophen 650 mg 03/23/18 19:18 04/08/18 09:13 Tylenol Oral Solution - GT 650 mg Q6H PRN Administration FEVER Amino Acids 30 ml 04/03/18 08:00 04/08/18 09:14 Prosource No Carb Liquid Pkt GT 30 ml DAILY@0800 [facility] Administration Amlodipine Besylate 10 mg 03/24/18 10:00 04/08/18 09:14 Norvasc - GT 10 mg DAILY [facility] Administration Collagenase 1 applic 03/24/18 10:00 04/08/18 09:14 Santyl - TP 1 applic DAILY [facility] Administration Protocol Docusate Sodium 100 mg 03/23/18 19:18 03/29/18 10:34 Colace Liquid - GT 100 mg DAILY PRN Administration CONSTIPATION Emollient Ointment 1 applic 03/24/18 10:00 04/08/18 09:14 Aquaphor - TP 1 applic DAILY [facility] Administration Glucagon 1 mg 03/23/18 19:18 Glucagon - SQ Q15M PRN HYPOGLYCEMIA Insulin Aspart 1 vial 03/23/18 22:00 04/08/18 12:30 Novolog Vial Sliding Scale - SQ Not Given ACHS [facility] Protocol Lactobacillus Acidophilus 1 tab 03/24/18 10:00 04/08/18 09:14 Bacid - GT 1 tab DAILY [facility] Administration Metoprolol Tartrate 25 mg 03/23/18 22:00 04/08/18 09:14 Lopressor - GT 25 mg BID [facility] Administration Mirtazapine 15 mg 03/23/18 22:00 04/07/18 21:14 Remeron - GT 15 mg HS [facility] Administration Senna 2 tab 03/23/18 19:18 Senna - PO HS PRN CONSTIPATION Impression 1. ESRD 2. failed kidney transplant 3. hx DM 4. Hx HTN 5. sacral ulcer 6. post op infection 7. c.diff 8. a-fib 9. failure to thrive 10.malnutrition 11. anemia 12. GI bleed 13. PNA 14. hyperkalemia Plan - will arrange for HD today - use nepro for feeds secondary to hyperkalemia - epogen for anemia - pending placement - will follow Dr Winters
[2018-04-08] MEDS ORDERED: EPOETIN ALFA IVPUSH ONE (14:15)
[2018-04-08 15:15] VITALS: TEMP 98.4
--- NOTE | 2018-04-08 15:26 | PN ---
Teaching Attending Note Name of Resident: Amado Ruiz ATTENDING PHYSICIAN STATEMENT I saw and evaluated the patient. I reviewed the resident's note and discussed the case with the resident. I agree with the resident's findings and plan as documented. SUBJECTIVE: Feels okay. Complains of tiredness. No vomiting. OBJECTIVE: Afebrile/Hemodynamically Stable. Frail, cachectic. Last Vital Signs Temp Pulse Resp BP Pulse Ox 98.4 F 80 18 110/64 93 L 04/08/18 14:35 04/08/18 15:10 04/08/18 15:10 04/08/18 15:10 04/08/18 08:51 HEENT - Atraumatic, NOrmocephalic. Neuro - AAO 1-2. Moving all 4 extremities. Heart - S1, S2, RRR Lungs - clear to auscultation. R permacath Abdomen - soft, non-tender. PEG site clean. Extremities - wasting. No calf tenderness. No edema. Stage 4 decubitus on sacrum present on admission. Laboratory Results - last 24 hr 04/07/18 04/07/18 04/08/18 17:00 21:19 05:38 POC Glucometer 114 101 73 04/08/18 11:47 POC Glucometer 72 Current Medications Generic Name Dose Route Start Last Admin Trade Name Berta PRN Reason Stop Dose Admin Acetaminophen 650 mg 03/23/18 19:18 04/08/18 09:13 Tylenol Oral Solution - GT 650 mg Q6H PRN Administration FEVER Amino Acids 30 ml 04/03/18 08:00 04/08/18 09:14 Prosource No Carb Liquid Pkt GT 30 ml DAILY@0800 [facility] Administration Amlodipine Besylate 10 mg 03/24/18 10:00 04/08/18 09:14 Norvasc - GT 10 mg DAILY [facility] Administration Collagenase 1 applic 03/24/18 10:00 04/08/18 09:14 Santyl - TP 1 applic DAILY [facility] Administration Protocol Docusate Sodium 100 mg 03/23/18 19:18 03/29/18 10:34 Colace Liquid - GT 100 mg DAILY PRN Administration CONSTIPATION Emollient Ointment 1 applic 03/24/18 10:00 04/08/18 09:14 Aquaphor - TP 1 applic DAILY [facility] Administration Glucagon 1 mg 03/23/18 19:18 Glucagon - SQ Q15M PRN HYPOGLYCEMIA Sodium Chloride 250 mls @ 3,000 mls/hr 04/08/18 13:23 Normal Saline - IV 04/09/18 13:23 PRN PRN Hypotension during Dialysis Insulin Aspart 1 vial 03/23/18 22:00 04/08/18 12:30 Novolog Vial Sliding Scale - SQ Not Given ACHS [facility] Protocol Lactobacillus Acidophilus 1 tab 03/24/18 10:00 04/08/18 09:14 Bacid - GT 1 tab DAILY [facility] Administration Metoprolol Tartrate 25 mg 03/23/18 22:00 04/08/18 09:14 Lopressor - GT 25 mg BID [facility] Administration Mirtazapine 15 mg 03/23/18 22:00 04/07/18 21:14 Remeron - GT 15 mg HS [facility] Administration Senna 2 tab 03/23/18 19:18 Senna - PO HS PRN CONSTIPATION ASSESSMENT AND PLAN: 77 year old female with ESRD on HD, s/p failed kidney transplant, s/p fecal transplant for C. difficile colitis, depression, HTN, DM 2, Atrial fibrillation , history of diverticular bleed who presented to the ED for evaluation of a sacral wound. 1. Stage 4 sacral decubitus ulcer - No evidence of osteomyelitis. Continue local wound care with Santyl. For ongoing wound care at home by visiting nurse. 2. Failure to thrive/Severe protein calorie malnutrition s/p PEG 03/18/Frail Tolerating feeds without vomiting since 04/04 - Nepro gravity feeds 225 cc 4x daily AXR - no obstruction/perforation Medically stable for discharge with ongoing bolus PEG feeds at home. Visiting Nurse, visiting physician, wound care, PEG care all arranged by CM. 3. Hypokalemia/hyperkalemia - resolved on HD 4. Depression - Continue Remeron 5. Pneumonia, probable aspiration - Completed antibiotic course. 6. History of C. difficile colitis s/p fecal transplant - no further diarrhea Previously on Vancomycin. 7. Anemia secondary to ESRD - H/H stable. Continue Epogen as per Renal. 8. ESRD s/p failed renal transplant - Continue outpatient HD MWF. 9. HTN - Continue Lopressor, Norvasc 10. History of Atrial fibrillation - in SR - Continue Lopressor. Not on anticoagulation secondary to history of GI bleed. 11. DM 2 - Continue Novolog sliding scale. 12. Cognitive Impairment, likely Dementia without behavioral disturbance. Oriented x 1-2 (knows she is in hospital but does not know which one). Continue Remeron. 13. Macrocytic Anemia- B12 and Folate wnl. May benefit from out-patient Hematology evaluation. Medically optimized for discharge with home services and out-patient follow up with HD, PCP, visiting nurse, visiting Physician, Nephrology follow up.
--- NOTE | 2018-04-08 15:28 | DS ---
Physical Exam: SUBJECTIVE: Patient seen and examined at bedside this morning. No acute overnight events. She denies any complaints today. OBJECTIVE: Vital Signs Period Temp Pulse Resp BP Sys/Franco Pulse Ox Last 24 Hr 97.5 F-98.4 F 60-80 18-20 110-154/63-85 93-93 PHYSICAL EXAM GENERAL: Cachectic, frail female. Awake, alert, and oriented to self. HEAD: Normal with no signs of trauma. EYES: PERRL, extraocular movements intact, sclera anicteric, conjunctiva clear. ENT: Oropharynx clear without exudates, moist mucous membranes. NECK: Trachea midline, supple without lymphadenopathy LUNGS: Poor inspiratory effort. Breath sounds equal, no wheezes, no crackles B/ L. No accessory muscle use. HEART: Regular rate and rhythm, S1, S2 auscultated without murmur. ABDOMEN: Soft, nontender. PEG tube site clean, dry without erythema, drainage, or discharge. No guarding, do rebound tenderness. EXTREMITIES: 2+ radial and pulses, warm, well-perfused, no edema. NEUROLOGICAL: Cranial nerves II through XII grossly intact. Normal speech, gait not observed. SKIN: Warm, dry. Sacral ulcer dressed with Santyl. LABS Laboratory Results - last 24 hr 04/07/18 04/07/18 04/08/18 17:00 21:19 05:38 POC Glucometer 114 101 73 04/08/18 11:47 POC Glucometer 72 HOSPITAL COURSE: Date of Admission:02/27/18 Date of Discharge: 04/08/18 Patient is a 77 year old female with history of end stage renal disease with failed kidney transplant,C. difficile collitis s/p fecal transplant, diverticular bleed, hypertension, diabetes mellitus II, Afib presented with complaint of sacral wound. Per investigation with ID, no evidence of osteomyelitis was found. Sacral ulcer was managed with wound care, Santyl dressings. After discussion with family and machine package sealer, PEG tube was placed for Nepro tube feeds, for improved nutrition and wound healing. Patient received hemodialysis, and Epogen for anemia per nephrology recommendations. Patient completed course of Vancomycin for C. difficile. Remeron per psychiatry recommendations. Ethics committee meeting was held with patient's son Aries, where goals of care were addressed. Discharged home with VNS services with follow up appointments to primary care physician (Dr. Bruno) and nephrology ( Dr. Winters). VNS for wound care, instructions provided in discharge plan. Minutes to complete discharge: 35 Discharge Summary Reason For Visit: STAGE 4 SKIN ULCER OF SACRAL REGION/END STAGE VEEAN Current Active Problems ESRD (end stage renal disease) on dialysis (Chronic) Failure to thrive in adult (Chronic) History of ESBL E. coli infection (Chronic) Sacral decubitus ulcer (Chronic) Stage 4 skin ulcer of sacral region (Chronic) Condition: Stable - Instructions Diet, Activity, Other Instructions: You were admitted to [facility] on 02/19/18 for a sacral decubitus ulcer on the lower backside of your body that was noticed by a visiting nurse at your home. While you were admitted to our hospital, you were treated with antibiotics for your stomach infection (Clostridum Difficile) and your sacral wound was cared for and treated with a topical medication daily. Please discuss with your doctor about arranging for a laboratory specialist who makes house calls who can also monitor the wound. Please continue to take remeron per G tube as prescribed. Please continue with your regular scheduled dialysis Sunday Dietary It is very important that you increase your calorie intake to promote good wound healing. TF Nepro 4 x daily with 225 ml each feeding ( 6 am, 11 am, 3pm, 6 pm) with 50 ml water before and after. Additional water 100 ml once daily Prosource 30 ml daily Continue Dysphagia nectar thick/renal diet as tolerated. You were receiving Hemodialysis during your hospital stay. You will continue to require HD after you leave the hospital. You have a seat ready for you at [facility] located at [address] [place] [address]. PHONE: [phone] Referrals - Please follow up with your Product Development Consultant within 1 week: Dr Winters. His contact information will be attached to your discharge papers/ - Please follow up with your primary care physician within 1 week. If you do not have a primary care physician, you may follow up at our clinic located at [address] [place] [address]. Contact information will be provided for you in your discharge papers. Home VNS has been arranged to address wound care. Please see directions below: Please follow the following wound care instructions for your sacral ulcer, Right hip ulcer, and for any other pressure sites. 1) Santyl to sacrum daily, 2) Allevyn over sacrum, bilateral hips (over greater trochanter) daily 3) Allevyn over bilateral heels daily 4) Offload pressure areas with frequent repositioning daily Return to the emergency department if you experience any shortness of breath, chest pain, fever, chills, nausea, or vomiting. Referrals: Milton Bruno MD [Staff Physician] - 1 Week Danielle Winters MD [Staff Physician] - 1 Week Disposition: VNS/HOME HEALTH CARE - Home Medications Comprehensive Discharge Medication List: Ambulatory Orders Lactobacillus Acidophilus [Bacid -] 1 tab PO DAILY #30 tab 02/11/18 Metoprolol Tartrate [Lopressor -] 25 mg PO BID #60 tablet 02/11/18 Miscellaneous Medical Supply [Glucometer Device] 1 each SQ ASDIR #1 kit Miscellaneous Medical Supply [Glucometer Test Strips #50] 1 each SQ ASDIR #1 box 02/16/18 Miscellaneous Medical Supply [Lancets] 1 each SQ ASDIR #1 box 02/16/18 Miscellaneous Medical Supply [Outpatient Order] 1 each ASDIR #1 misc Amino Acids/Protein Hydrolys [Prosource No Carb Liquid Pkt] 30 ml PO BID #30 liquid.pkt 02/22/18 Amlodipine Besylate [Norvasc -] 10 mg PO DAILY #30 tablet 02/22/18 Collagenase Clostridium Hist. [Santyl] 1 bottle TP DAILY #5 oint...g. 02/22/18 Gauze Bandage [Gauze] 1 each TP DAILY #30 bandage 02/22/18 Nut.tx.imp.renal Fxn,Lac-Reduc [Nepro Carb Steady] 237 ml PO DAILY #30 liquid Foam Bandage [Allevyn Gentle Border Heel] 1 each TP DAILY #30 bandage 03/28/18 Mirtazapine [Remeron -] 15 mg GT HS #10 tablet 03/28/18 Silver Sulfadiaz/Foam Bandage [Allevyn Ag Adhesive 5"X5"] 1 each TP DAILY #30 bandage 03/28/18 Vancomycin Oral Solution 125 mg PO Q3D@1000 #9 ml 03/28/18 Nut.tx.imp.renal Fxn,Lac-Reduc [Nepro Carb Steady] 225 ml PO QID 30 Days #120 liquid 04/08/18 This patient is new to me today: No Emergency Visit: Yes ED Registration Date: 02/27/18 Care time: The patient presented to the Emergency Department on the above date and was hospitalized for further evaluation of their emergent condition. Critical Care patient: No - Discharge Referral Referred to [facility] No Physician Referral: Rubén Calhoun MD ([facility])
[2018-04-08 15:52] LABS: HEMATOCRIT 30.1 % (32.4-45.2); HEMOGLOBIN 10.5 GM/dL (10.7-15.3); MCH 34.1 pg (25.7-33.7); MCHC 34.8 g/dl (32.0-36.0); MEAN CELL VOLUME 98.1 fl (80-96); MEAN PLT VOLUME 9.3 fl (7.5-11.1); PLATELET COUNT 247 K/MM3 (134-434); RBC 3.07 M/mm3 (3.60-5.2); RDW 19.9 % (11.6-15.6); WHITE BLOOD COUNT 5.4 K/mm3 (4.0-10.0)
[2018-04-08 16:28] LABS: ANION GAP 8 MMOL/L (8-16); BLOOD UREA NITROGEN 45 mg/dL (7-18); CALCIUM 8.7 mg/dL (8.5-10.1); CHLORIDE 99 mmol/L (98-107); CO2 30 mmol/L (21-32); CREATININE 3.9 mg/dL (0.55-1.3); GLUCOSE,RANDOM 78 mg/dL (74-106); SODIUM 137 mmol/L (136-145)
[2018-04-08] MEDS ORDERED: PT OWN MED DRAWER 7, Y5N ONE (17:09)
[2018-04-08 18:20] VITALS: BP 131/71; PULSE 81
== END 2018-04-08 18:46 | disposition home health service (06) | DRG 592 ==
LOC: JER 17:05 → JERBED 22:48 → J7W 02-20 01:35 → INTOOBSV 02-27 15:49 → OBSVTOIN 02-27 15:49 → J4S 03-23 00:16
PROVIDERS: ADMIT Internal Medicine
PROC: 06HM33Z Insertion of Infusion Device into Right Femoral Vein, Percutaneous Approach (ICD-10-PCS; 2018-03-16)
PROC: B54BZZA Ultrasonography of Right Lower Extremity Veins, Guidance (ICD-10-PCS; 2018-03-16)
PROC: 3E0G76Z Introduction of Nutritional Substance into Upper GI, Via Natural or Artificial Opening (ICD-10-PCS; 2018-03-18)
PROC: 0DB68ZX Excision of Stomach, Via Natural or Artificial Opening Endoscopic, Diagnostic (ICD-10-PCS; 2018-03-18)
PROC: 0DH63UZ Insertion of Feeding Device into Stomach, Percutaneous Approach (ICD-10-PCS; principal; 2018-03-18 11:00)
PROC: 5A1D70Z Performance of Urinary Filtration, Intermittent, Less than 6 Hours Per Day (ICD-10-PCS; 2018-03-26)
DX: L89.154 Pressure ulcer of sacral region, stage 4 (principal); E43 Unspecified severe protein-calorie malnutrition; N18.6 End stage renal disease; J69.0 Pneumonitis due to inhalation of food and vomit; R64 Cachexia; Z94.0 Kidney transplant status; Z68.1 Body mass index [BMI] 19.9 or less, adult; A04.72 Enterocolitis due to Clostridium difficile, not specified as recurrent; I12.0 Hypertensive chronic kidney disease with stage 5 chronic kidney disease or end stage renal disease; K56.7 Ileus, unspecified; E11.22 Type 2 diabetes mellitus with diabetic chronic kidney disease; I48.91 Unspecified atrial fibrillation; D64.9 Anemia, unspecified; R62.7 Adult failure to thrive; Z99.2 Dependence on renal dialysis; E11.649 Type 2 diabetes mellitus with hypoglycemia without coma; R33.9 Retention of urine, unspecified; F32.9 Major depressive disorder, single episode, unspecified; K44.9 Diaphragmatic hernia without obstruction or gangrene; K29.60 Other gastritis without bleeding; R13.10 Dysphagia, unspecified; E87.6 Hypokalemia; E87.5 Hyperkalemia; D63.1 Anemia in chronic kidney disease; F03.90 Unspecified dementia, unspecified severity, without behavioral disturbance, psychotic disturbance, mood disturbance, and anxiety
CPT/HCPCS: 36415; 71045-TC-FY; 72148-TC; 72170-TC-FY; 72192-TC; 72195-TC; 74018-TC-FY; 80048; 80053; 82550; 82565; 82607; 82746; 82962; 83735; 84100; 84484; 84520; 85025; 85027; 85610; 85651; 85730; 86140; 86704; 86706; 86708; 86803; 86850; 86870; 86880; 86900; 86901; 86902; 87040; 87070; 87186; 87205; 87340; 87899; 88305-TC; 93005; 93010; 93931; 93971; 97161-GP; 99285-25; G0378; G0480; J0885

== ENCOUNTER 2018-04-20 08:03 | Inpatient (IN) | payer OTHER, BC ==
--- NOTE | 2018-04-20 08:51 | PDOC ---
History of Present Illness - General Chief Complaint: Dialysis Shunt Problem Stated Complaint: PCP SENT Time Seen by Provider: 04/20/18 08:30 - History of Present Illness Initial Comments: 04/20/18 09:21 The patient is a 77 year old female with a history of HTN, HLD, DM, Dementia, ESRD on Dialysis (MWF), C-diff who presents for evaluation of a dialysis catheter problem. The patient is accompanied by her son (Aries De La Vega ) who assists in providing the history. They report that the patient received dialysis 1 day ago, however they received a call from the patient's glass beveler Dr. Feliciano today stating that the patient should present to the ED due to a dialysis catheter problem. The patient's son also reports that the patient has been having a non-productive cough for several days with associated profuse watery diarrhea and chest pain. They otherwise deny fevers, chills, SOB , nausea, vomiting, abdominal pain, or changes with urination. Past History - Past Medical History Allergies/Adverse Reactions: Allergies Allergy/AdvReac Type Severity Reaction Status Date / Time No Known Allergies Allergy Verified 04/20/18 08:11 Home Medications: Ambulatory Orders Lactobacillus Acidophilus [Bacid -] 1 each PO DAILY 30 Days #30 tab 04/08/18 Mirtazapine [Remeron -] 15 mg GT DAILY 30 Days #30 tablet 04/08/18 Amlodipine Besylate [Norvasc -] 5 mg PO DAILY 04/20/18 Metoprolol Tartrate [Lopressor -] 25 mg GT BID 04/20/18 Nut.tx.imp.renal Fxn,Lac-Reduc [Nepro Carb Steady] 236 ml PO TID 04/20/18 Vancomycin Oral Solution [Vancocin *Oral Solution*] 125 mg GT Q2D 04/20/18 Anemia: No Asthma: No Cancer: No Cardiac Disorders: No CVA: No COPD: No CHF: No Dementia: Yes Diabetes: Yes Dialysis: Yes GI Disorders: Yes (hx -diff) Disorders: No HTN: Yes Hypercholesterolemia: Yes Seizures: No Thyroid Disease: No - Immunization History Immunization Up to Date: Yes - Suicide/Smoking/Psychosocial Hx Smoking History: Never smoked Have you smoked in the past 12 months: No Hx Alcohol Use: No Drug/Substance Use Hx: No Substance Use Type: None Hx Substance Use Treatment: No Review of Systems - Review of Systems Comments:: 04/20/18 09:28 Constitutional: No fevers, chills, fatigue, malaise HEENT: No Rhinorrhea, nasal congestion, visual changes Cardiovascular: Chest pain. No syncope, palpitations, lightheadedness Respiratory: Cough. No SOB, Hemoptysis, Gastrointestinal: Diarrhea. No Abdominal pain, Nausea, Vomiting, Constipation, Melena Genitourinary: No Dysuria, Frequency, Urgency, Hesitancy, Hematuria, Flank pain Musculoskeletal: No Myalgia, arthralgia Skin: No rashes, itching, bruising, pallor Neurologic: No Headache, Dizziness, Numbness, Weakness, or Tingling Psychiatric: No Hallucinations. No SI or HI *Physical Exam - Vital Signs Last Vital Signs Temp Pulse Resp BP Pulse Ox 97 F L 73 18 142/73 99 04/20/18 08:05 04/20/18 08:05 04/20/18 08:05 04/20/18 08:05 04/20/18 08:05 - Physical Exam Comments: 04/20/18 09:28 General Appearance: Nourished. No Apparent Distress HEENT: No Pharyngeal Erythema, Tonsillar Exudate, Tonsillar Erythema Neck: No Cervical Lymphadenopathy Respiratory/Chest: Rhonchi noted on exam. No Crackles, Rales, Cardiovascular: Regular Rhythm, Regular Rate. No Murmur, Gallops, Rubs Gastrointestinal/Abdominal: Normal Bowel Sounds, Soft. No Guarding, Rebound, Tenderness Musculoskeletal: No CVA Tenderness Extremity: Normal Capillary Refill Integumentary: Normal Color, Dry, Warm Neurologic: Fully Oriented, Alert, Normal Mood/Affect, Normal Response, Moderate Sedation - Procedure Monitoring Vital Signs: Procedure Monitoring Vital Signs Temperature 97 F L 04/20/18 08:05 Pulse Rate 73 04/20/18 08:05 Respiratory Rate 18 04/20/18 08:05 Blood Pressure 142/73 04/20/18 08:05 O2 Sat by Pulse Oximetry (%) 99 04/20/18 08:05 ED Treatment Course - LABORATORY CBC & Chemistry Diagram: 04/20/18 09:15 04/20/18 09:15 Medical Decision Making - Medical Decision Making 04/20/18 09:29 The patient is a 77 year old female with a history of HTN, HLD, DM, Dementia, ESRD on Dialysis (MWF), C-diff who presents for evaluation of a dialysis catheter problem. Given the patient's history and physical exam, we will obtain a cbc, cmp, troponin, bnp, ekg, chest plain film, ua, c-diff antigen to evaluate further. We contact Dr. Fagan regarding the patient's dialysis catheter and continue to monitor and reassess while here in the ED. 04/20/18 18:43 CBC demonstrates a HGB of 9.4. CMP demonstrates a creatinine of 2.3. Troponin is unremarkable. BNP is unremarkable. Chest plain film demonstrates a possible left lower lobe infiltrate as read by our radiologist. Given the patient's lack of an elevated wbc and lack of a fever, we will not treat with antibiotics at this time. The patient will require admission for further monitoring and management. We discussed the case with the admitting team who accepted the patient for admission. *DC/Admit/Observation/Transfer Diagnosis at time of Disposition: ESRD (end stage renal disease) on dialysis, Dialysis catheter clot or failure Chest pain Qualifiers: Chest pain type: unspecified Qualified Code(s): R07.9 - Chest pain, unspecified Diarrhea Qualifiers: Diarrhea type: unspecified type Qualified Code(s): R19.7 - Diarrhea, unspecified - Discharge Dispostion Condition at time of disposition: Stable Decision to Admit order: Yes - Referrals - Patient Instructions - Post Discharge Activity
--- NOTE | 2018-04-20 08:55 | PDOC ---
Attending Attestation - Resident Resident Name: GabbiSudheer - ED Attending Attestation I have performed the following: I have examined & evaluated the patient, The case was reviewed & discussed with the resident, I agree w/resident's findings & plan, Exceptions are as noted - HPI HPI: 04/20/18 10:23 Ms De La Vega presents to the ER upon the recommendation of Renal specialist due to dialysis cathether dysfunction She has h/o HTN, HLD, DM, Dementia, ESRD on Dialysis (MWF), C-diff She also reports non-productive cough for several days with associated profuse watery diarrhea and chest pain. No fevers, chills, SOB No nausea, vomiting, abdominal pain - Physicial Exam PE: 04/24/18 09:50 Constitutional: Yes: Calm, Cachectic Eyes: No: Sclera Icterus HENT: Yes: Atraumatic, Normocephalic Cardiovascular: Yes: Regular Rate and Rhythm, Murmur (3/6 Sm at RUSb and LLSB), S1, S2 Respiratory: Yes: CTA Bilaterally, Other (decreased breath sounds at bases), no wheezing Gastrointestinal: Yes: Normal Bowel Sounds, Soft, mildly tender to palpation Extremities: No: Cold, Edema, Erythema, Pallor Integumentary: No erythema around subclavian line Neurological: Yes: Alert, Moving all extremities - Medical Decision Making 04/20/18 11:41 Laboratory Tests 04/20/18 04/20/18 09:15 09:15 WBC 4.4 Hgb 9.4 L Hct 26.6 L Plt Count 201 Neutrophils % 51.3 D Lymphocytes % 28.8 D Potassium 3.3 L BUN 18 Creatinine 2.3 H Creatine Kinase 28 Troponin I 0.05 EKG: NSR rate of 74 bpm, axis nml, no st elevation or depression, intervals abnormal - pr:202ms, QTc: 512ms CXR - left basilar infiltrate, possibly Pt has no fever, leukocystosis to suggest pneumonia Lungs rhoncherous ? on the basis of CHF / fluid overloading Cautious to give abx as this patient has had h/o c diff Pt cathether seems to be in place (? slightly out? pt has previously pulled out her cathether) Pt has diarrhea, sample ordered will admit
[2018-04-20 09:49] LABS: BASO % 1.9 % (0-2.0); EOS % 5.9 % (0-4.5); HEMATOCRIT 26.6 % (32.4-45.2); HEMOGLOBIN 9.4 GM/dL (10.7-15.3); LYMPH % 28.8 % (8-40); MCH 33.7 pg (25.7-33.7); MCHC 35.4 g/dl (32.0-36.0); MEAN CELL VOLUME 95.1 fl (80-96); MEAN PLT VOLUME 8.6 fl (7.5-11.1); MONO % 12.1 % (3.8-10.2); NEUT % 51.3 % (42.8-82.8); PLATELET COUNT 201 K/MM3 (134-434); RBC 2.79 M/mm3 (3.60-5.2); RDW 18.2 % (11.6-15.6); WHITE BLOOD COUNT 4.4 K/mm3 (4.0-10.0)
[2018-04-20 10:06] LABS: INR 0.97 (0.83-1.09); PROTHROMBIN TIME (PATIENT) 11.5 SEC (9.7-13.0)
[2018-04-20 11:15] LABS: ALBUMIN 1.9 g/dl (3.4-5.0); ALK PHOS 186 U/L (45-117); ANION GAP 7 MMOL/L (8-16); BILIRUBIN,TOTAL 0.6 mg/dL (0.2-1); BLOOD UREA NITROGEN 18 mg/dL (7-18); CALCIUM 8.1 mg/dL (8.5-10.1); CHLORIDE 102 mmol/L (98-107); CO2 27 mmol/L (21-32); CREATININE 2.3 mg/dL (0.55-1.3); GLUCOSE,RANDOM 69 mg/dL (74-106); POTASSIUM 3.3 mmol/L (3.5-5.1); SGOT/AST 38 U/L (15-37); SGPT/ALT 19 U/L (13-61); SODIUM 136 mmol/L (136-145); TOT PROT 7.2 g/dl (6.4-8.2)
[2018-04-20 11:18] LABS: ACTIVATED PTT 125.4 SECONDS (25.2-36.5)
--- NOTE | 2018-04-20 13:25 | EKG ---
Test Reason : Blood Pressure : / mmHG Vent. Rate : 074 BPM Atrial Rate : 074 BPM P-R Int : 202 ms QRS Dur : 102 ms QT Int : 462 ms P-R-T Axes : 078 021 046 degrees QTc Int : 512 ms NORMAL SINUS RHYTHM ANTEROSEPTAL INFARCT (CITED ON OR BEFORE 25-MAR-2018) PROLONGED QT ABNORMAL ECG WHEN COMPARED WITH ECG OF 27-MAR-2018 12:39, QUESTIONABLE CHANGE IN QRS AXIS NONSPECIFIC T WAVE ABNORMALITY NO LONGER EVIDENT IN INFERIOR LEADS QT HAS LENGTHENED Confirmed by MARCELLO JOSÉ, FRANCES ([id number]) on 04/20/2018 1:25:10 PM Referred By: Confirmed By:FRANCES ARMENDARIZ MD
[2018-04-20] MEDS ORDERED: amLODIPine BESYLATE 5 MG TABLET (FP) PEG ONE (15:58)
[2018-04-20] MEDS ORDERED: METOPROLOL TARTRATE 25 MG TABLET (FP) PEG ONE (15:58)
--- NOTE | 2018-04-20 16:01 | HP ---
Admitting History and Physical - Primary Care Physician PCP: Milton Bruno - Admission History Source: Patient - Past Medical History Cardiovascular: Yes: HTN, Hyperlipdemia Renal/: Yes: Renal Failure, Renal Inusuff, Hemodialysis Heme/Onc: Yes: Anemia Infectious Disease: Yes: C-Diff, Other (ecoli esbl wound infection) Endocrine: Yes: Diabetes Mellitus - Past Surgical History Past Surgical History: Yes: Kidney Transplant - Smoking History Smoking history: Never smoked Have you smoked in the past 12 months: No - Alcohol/Substance Use Hx Alcohol Use: No - Social History ADL: Family Assistance History of Recent Travel: No Home Medications - Allergies Allergies/Adverse Reactions: Allergies Allergy/AdvReac Type Severity Reaction Status Date / Time No Known Allergies Allergy Verified 04/20/18 08:11 - Home Medications Home Medications: Ambulatory Orders Lactobacillus Acidophilus [Bacid -] 1 each PO DAILY 30 Days #30 tab 04/08/18 Mirtazapine [Remeron -] 15 mg GT DAILY 30 Days #30 tablet 04/08/18 Amlodipine Besylate [Norvasc -] 5 mg PO DAILY 04/20/18 Metoprolol Tartrate [Lopressor -] 25 mg GT BID 04/20/18 Nut.tx.imp.renal Fxn,Lac-Reduc [Nepro Carb Steady] 236 ml PO TID 04/20/18 Vancomycin Oral Solution [Vancocin *Oral Solution*] 125 mg GT Q2D 04/20/18 Physical Examination Vital Signs: Vital Signs Temperature 97.5 F L 04/20/18 09:30 Pulse Rate 69 04/20/18 12:50 Respiratory Rate 20 04/20/18 12:50 Blood Pressure 169/85 04/20/18 12:50 O2 Sat by Pulse Oximetry (%) 96 04/20/18 12:50 Labs: CBC, BMP 04/20/18 09:15 04/20/18 09:15
--- NOTE | 2018-04-20 16:12 | HP ---
Admitting History and Physical - Admission Chief Complaint: diarrhea , HD cath problem, and cough History of Present Illness: 77 y/o lady withh/o dementia , recurrent C diff, s/p fecal transplant,currently o n vanco taper , HTN, HLP, DM, ESRD on MWF schedule , s/p failed renal Tx, depression, A fib, GI bleed , who presented after Dr. Winters recommended admission for evaluation of HD catheter . Son provided the history. she had water diarrhea x 5 days while on vanco taper q OD for now. she has had a productive cough x 3 days . no fever or chills. she did not have any complaints. HD yesterday was completed but they received a call from Dr. Winters indicating cahteter problem ( pulled out partiallY ) . of note , pt was here last month, for c diff, evaluation of decub ulcer but no OM was found. she had PEG placed for nutrition and was dc few days earlier . 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 s/p fecal transplant) Renal/: Yes: Renal Failure, Renal Inusuff, Hemodialysis, Other (failed renal transplant) Heme/Onc: Yes: Anemia Infectious Disease: Yes: C-Diff, Other (ecoli esbl wound infection) Endocrine: Yes: Diabetes Mellitus - Past Surgical History Past Surgical History: Yes: Kidney Transplant - Smoking History Smoking history: Never smoked Have you smoked in the past 12 months: No - Alcohol/Substance Use Hx Alcohol Use: No History of Substance Use: reports: None - Social History Usual Living Arrangement: Yes: With Child ADL: Family Assistance History of Recent Travel: No Home Medications - Allergies Allergies/Adverse Reactions: Allergies Allergy/AdvReac Type Severity Reaction Status Date / Time No Known Allergies Allergy Verified 04/20/18 08:11 - Home Medications Home Medications: Ambulatory Orders Lactobacillus Acidophilus [Bacid -] 1 each PO DAILY 30 Days #30 tab 04/08/18 Mirtazapine [Remeron -] 15 mg GT DAILY 30 Days #30 tablet 04/08/18 Amlodipine Besylate [Norvasc -] 5 mg PO DAILY 04/20/18 Metoprolol Tartrate [Lopressor -] 25 mg GT BID 04/20/18 Nut.tx.imp.renal Fxn,Lac-Reduc [Nepro Carb Steady] 236 ml PO TID 04/20/18 Vancomycin Oral Solution [Vancocin *Oral Solution*] 125 mg GT Q2D 04/20/18 Family Disease History - Family Disease History Family History: Unable to Obtain Review of Systems Unable to obtain ROS, reason: due to dementia . Physical Examination Vital Signs: Vital Signs Temperature 97.5 F L 04/20/18 09:30 Pulse Rate 69 04/20/18 12:50 Respiratory Rate 20 04/20/18 12:50 Blood Pressure 169/85 04/20/18 12:50 O2 Sat by Pulse Oximetry (%) 96 04/20/18 12:50 Constitutional: Yes: Calm, Cachectic, Thin Eyes: No: Sclera Icterus HENT: Yes: Atraumatic, Normocephalic, Other (MMM). No: Drooling Neck: Yes: Supple, Trachea Midline Cardiovascular: Yes: Regular Rate and Rhythm, Murmur (3/6 Sm at RUSb and LLSB), S1, S2 Respiratory: Yes: CTA Bilaterally, Other (decreased breath sounds at bases). No : Cough, Dullness, Rhonchi, Stridor, Wheezes Gastrointestinal: Yes: Normal Bowel Sounds, Soft, Tenderness (generalized .), Other (PEG tube in). No: Distention Musculoskeletal: No: Joint Swelling Extremities: No: Cold, Cyanosis, Erythema, Pallor Edema: No Integumentary: Yes: Other (anterior chest catheter with intact skin) Wound/Incision: Yes: Other (sacral decub 2x2 cm and no drainage withclean base) Neurological: Yes: Alert, Other (mves all her extremities. contracted in bed.). No: Dysarthria, Facial Droop Labs: CBC, BMP 04/20/18 09:15 04/20/18 09:15 Imaging - Results Chest X-ray: Report Reviewed, Other (can't open image) EKG: Report Reviewed, Image Reviewed Assessment/Plan 77 y/o lady withh/o dementia , recurrent C diff, s/p fecal transplant,currently o n vanco taper , HTN, HLP, DM, ESRD on MWF schedule , s/p failed renal Tx, depression, A fib, GI bleed , who presented after Dr. Winters recommended admission for evaluation of HD catheter . she also has diarrhea and cough . 1- HD cath malfunction: Dr. Neri consulted 2- diarrhea ; concern for c diff. given history and recent hospitalization - give vanco through GT QID pending c diff toxin. if neg can continue her taper QOD -check stool cx 3- Cough , with productive cough . no fever or leukocytosis. no crackles on exam. cxray reported LLL infiltrate. Not sure if she has aspirated , but no clinical signs of PNA. I will avoid Abx in setting of diarrhea and recurrent c diff, unless she starts to develop signs of PNA 4- HTN urgency. BP in 180s in ER. - give her am meds now - cont home meds of norvasc and lopressor 5- nutrition : cont nepro TID olus. and cont po intake - dietitian erin; - speech eval 6- ESRD : consult renal for HD tomorrow DVT PX meds were confirmed with son and reconciled in EMR Visit type - Emergency Visit Emergency Visit: Yes Care time: The patient presented to the Emergency Department on the above date and was hospitalized for further evaluation of their emergent condition. - New Patient This patient is new to me today: Yes Date on this admission: 04/20/18 - Critical Care Critical Care patient: No
[2018-04-20] MEDS ORDERED: METOPROLOL TARTRATE 25 MG TABLET (FP) ONE (17:23)
[2018-04-20] MEDS ORDERED: amLODIPine BESYLATE 5 MG TABLET (FP) ONE (17:23)
--- NOTE | 2018-04-20 17:34 | CONSULT ---
Consult Consult Specialty:: Nephrology Reason for Consultation:: ESRD - History of Present Illness Chief Complaint: sent in for access evaluation History of Present Illness: Pt is a 77 year old female with pmhx of ESRD, HLD, DM, Dementia and c.diff who I sent in to ER for vascular to evaluate her catheter. Pt has a chest wal permacath. The cuff does not appear to be in place. She is at baseline. She has been getting outpt HD. Pt has however had a cough for the last few days. She has also had diarrhea. Family however deny fevers or chills. 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 s/p fecal transplant) Renal/: Yes: Renal Failure, Renal Inusuff, Hemodialysis, Other (failed renal transplant) Infectious Disease: Yes: C-Diff, Other (ecoli esbl wound infection) Endocrine: Yes: Diabetes Mellitus - Past Surgical History Past Surgical History: Yes: Kidney Transplant - Alcohol/Substance Use Hx Alcohol Use: No History of Substance Use: reports: None - Smoking History Smoking history: Never smoked Have you smoked in the past 12 months: No - Social History Usual Living Arrangement: With Significant Other ADL: Family Assistance History of Recent Travel: No Home Medications - Allergies Allergies/Adverse Reactions: Allergies Allergy/AdvReac Type Severity Reaction Status Date / Time No Known Allergies Allergy Verified 04/20/18 08:11 - Home Medications Home Medications: Ambulatory Orders Lactobacillus Acidophilus [Bacid -] 1 each PO DAILY 30 Days #30 tab 04/08/18 Mirtazapine [Remeron -] 15 mg GT DAILY 30 Days #30 tablet 04/08/18 Amlodipine Besylate [Norvasc -] 5 mg PO DAILY 04/20/18 Metoprolol Tartrate [Lopressor -] 25 mg GT BID 04/20/18 Nut.tx.imp.renal Fxn,Lac-Reduc [Nepro Carb Steady] 236 ml PO TID 04/20/18 Vancomycin Oral Solution [Vancocin *Oral Solution*] 125 mg GT Q2D 04/20/18 Family Disease History - Family Disease History Family History: Denies Review of Systems - Review of Systems Constitutional: reports: No Symptoms Eyes: reports: No Symptoms HENT: reports: No Symptoms Neck: reports: No Symptoms Cardiovascular: reports: No Symptoms Respiratory: reports: Cough Gastrointestinal: reports: No Symptoms Genitourinary: reports: No Symptoms Musculoskeletal: reports: Muscle Weakness Integumentary: reports: Other (sacral decub) Hematology/Lymphatic: reports: No Symptoms Psychiatric: reports: No Symptoms Physical Exam Vital Signs: Vital Signs Temperature 97.5 F L 04/20/18 09:30 Pulse Rate 69 04/20/18 12:50 Respiratory Rate 20 04/20/18 12:50 Blood Pressure 169/85 04/20/18 12:50 O2 Sat by Pulse Oximetry (%) 96 04/20/18 12:50 Constitutional: Yes: Calm Eyes: Yes: Conjunctiva Clear HENT: Yes: Atraumatic Cardiovascular: Yes: S1, S2 Respiratory: Yes: Regular Gastrointestinal: Yes: Soft Renal/: Yes: Incontinence Musculoskeletal: Yes: Muscle Weakness Edema: No Neurological: Yes: Pre-Existing Deficit Labs: CBC, BMP 04/20/18 09:15 04/20/18 09:15 Imaging - Results Chest X-ray: Report Reviewed, Image Reviewed Problem List - Problems (1) Dialysis catheter clot or failure Code(s): [id number] - (2) ESRD (end stage renal disease) on dialysis Code(s): N18.6 - END STAGE RENAL DISEASE; Z99.2 - DEPENDENCE ON RENAL DIALYSIS Assessment/Plan Current Medications Generic Name Dose Route Start Last Admin Trade Name Freq PRN Reason Stop Dose Admin Amlodipine Besylate 5 mg 04/21/18 10:00 Norvasc - GT DAILY [facility] Heparin Sodium (Porcine) 5,000 unit 04/20/18 22:00 Heparin - SQ TID [facility] Lactobacillus Acidophilus 1 tab 04/21/18 10:00 Bacid - GT DAILY [facility] Metoprolol Tartrate 25 mg 04/20/18 22:00 Lopressor - GT BID [facility] Mirtazapine 15 mg 04/21/18 10:00 Remeron - GT DAILY [facility] Vancomycin HCl 125 mg 04/20/18 18:00 Vancomycin Oral Solution GT Q6HPO [facility] Impression 1. ESRD 2. failed kidney transplant 3. hx DM 4. Hx HTN 5. sacral ulcer 6. post op infection 7. c.diff 8. a-fib 9. failure to thrive 10.malnutrition 11. anemia 12. GI bleed 13. PNA Plan - HD in am - vascular eval - monitor bp - will follow - will order pre-hd labs Dr Winters
[2018-04-20] MEDS: VANCOMYCIN 250 MG/5 ML ORAL SOLUTION GT SCH (20:39)
[2018-04-20] MEDS ORDERED: PATIENT'S OWN MEDICATION (NON-FORMULARY) (Nut.Tx.Imp.Renal Fxn,Lac-Reduc [Nepro Carb Stead PO SCH (22:00)
[2018-04-20] MEDS: HEPARIN NA (PORCINE) 5,000 UNITS/ML 1ML VIAL SQ SCH (23:33)
[2018-04-21] MEDS ORDERED: METOPROLOL TARTRATE 25 MG TABLET (FP) ONE ×2 (00:20→00:24)
[2018-04-21] MEDS ORDERED: HEPARIN NA (PORCINE) 5,000 UNITS/ML 1ML VIAL ONE ×2 (00:21→05:30)
[2018-04-21] MEDS: METOPROLOL TARTRATE 25 MG TABLET (FP) GT SCH ×3 (00:34→21:30)
[2018-04-21] MEDS: VANCOMYCIN 250 MG/5 ML ORAL SOLUTION GT SCH ×4 (00:35→18:38)
[2018-04-21] MEDS: HEPARIN NA (PORCINE) 5,000 UNITS/ML 1ML VIAL SQ SCH ×3 (05:34→21:30)
[2018-04-21 06:34] LABS: HEMATOCRIT 31.9 % (32.4-45.2); HEMOGLOBIN 10.5 GM/dL (10.7-15.3); MCH 31.7 pg (25.7-33.7); MCHC 32.9 g/dl (32.0-36.0); MEAN CELL VOLUME 96.3 fl (80-96); MEAN PLT VOLUME 8.8 fl (7.5-11.1); PLATELET COUNT 228 K/MM3 (134-434); RBC 3.31 M/mm3 (3.60-5.2); WHITE BLOOD COUNT 5.8 K/mm3 (4.0-10.0)
[2018-04-21 07:25] LABS: ANION GAP 11 MMOL/L (8-16); BLOOD UREA NITROGEN 26 mg/dL (7-18); CALCIUM 9.2 mg/dL (8.5-10.1); CHLORIDE 100 mmol/L (98-107); CO2 26 mmol/L (21-32); CREATININE 3.1 mg/dL (0.55-1.3); MAGNESIUM 2.3 mg/dL (1.8-2.4); PHOSPHOROUS 3.1 mg/dL (2.5-4.9); POTASSIUM 3.6 mmol/L (3.5-5.1); SODIUM 136 mmol/L (136-145)
[2018-04-21 07:40] LABS: GLUCOSE,RANDOM 43 mg/dL (74-106)
[2018-04-21] MEDS ORDERED: DEXTROSE 50%-WATER 25 GM/50 ML DISP.SYRIN ONE (07:41)
[2018-04-21] MEDS ORDERED: DEXTROSE 50%-WATER - 25 GM/50 ML VIAL IVPUSH ONE (08:06)
[2018-04-21] MEDS: LACTOBACILLUS ACIDOPHILUS 1 TABLET GT SCH (12:38)
[2018-04-21] MEDS: MIRTAZAPINE 15 MG TABLET (FP) GT SCH (12:39)
[2018-04-21] MEDS: amLODIPine BESYLATE 5 MG TABLET (FP) GT SCH (12:39)
--- NOTE | 2018-04-21 14:50 | PN ---
Progress Note (short form) - Note Progress Note: Subjective: can't obtain an y hx form patient due to dementia was hypoglycemic in morning and dextrose was given Objective: Vital Signs: Last Vital Signs Temp Pulse Resp BP Pulse Ox 97.5 F L 68 20 151/92 97 04/21/18 12:07 04/21/18 12:07 04/21/18 12:07 04/21/18 12:07 04/21/18 12:07 Laboratory Results - last 24 hr 04/21/18 04/21/18 05:30 05:30 WBC 5.8 RBC 3.31 L Hgb 10.5 L Hct 31.9 L D MCV 96.3 H MCH 31.7 MCHC 32.9 RDW 18.0 H Plt Count 228 MPV 8.8 Sodium 136 Potassium 3.6 Chloride 100 Carbon Dioxide 26 Anion Gap 11 BUN 26 H Creatinine 3.1 H Creat Clearance w eGFR 14.53 Random Glucose 43 L* Calcium 9.2 Phosphorus 3.1 Magnesium 2.3 Physical Exam: NAD , awake, alert Cv: RRR, 3/6 Sm at LLSB Lungs: CTAB Abd: sfot, NT, ND , N LBS Ext : no edema Lines: R upper chest HD cath partially pulled out Assessment/Plan: 77 y/o lady with h/o dementia , recurrent C diff, s/p fecal transplant, currently o n vanco taper , HTN, HLP, DM, ESRD on MWF schedule , s/p failed renal Tx, depression, A fib, GI bleed , who presented after Dr. Winters recommended admission for evaluation of HD catheter . she also has diarrhea and cough . 1- HD cath malfunction: will change number operator a wire by IR tomorrow 2- diarrhea ; - cont empiric vanco and follow c diff toxin . abd exam benign 3- Cough, monitor . repeat cxray reviewed. will repeat after HD. 4- HTN urgency. cont home meds norvasc and lopressor 5- nutrition : cont nepro TID bolus. and cont po intake - dietitian eval - speech eval 6- ESRD: HD per renal DVT PX Visit type - Emergency Visit Emergency Visit: Yes ED Registration Date: 04/20/18 Care time: The patient presented to the Emergency Department on the above date and was hospitalized for further evaluation of their emergent condition. - New Patient This patient is new to me today: No - Critical Care Critical Care patient: No
--- NOTE | 2018-04-21 15:03 | PN ---
Progress Note, Physician History of Present Illness: Pt seen and examined at bedside. She is awake and appears comfortable. - Current Medication List Current Medications: Active Medications Amlodipine Besylate (Norvasc -) 5 mg GT DAILY [facility] Last Admin: 04/21/18 12:39 Dose: 5 mg Epoetin Abe (Epogen -) 10,000 unit IVPUSH ONCE ONE Stop: 04/21/18 17:41 Heparin Sodium (Porcine) (Heparin -) 5,000 unit SQ TID [facility] Last Admin: 04/21/18 05:34 Dose: 5,000 unit Sodium Chloride (Normal Saline -) 250 mls @ 3,000 mls/hr IV PRN PRN PRN Reason: Hypotension during Dialysis Stop: 04/21/18 17:40 Lactobacillus Acidophilus (Bacid -) 1 tab GT DAILY [facility] Last Admin: 04/21/18 12:38 Dose: Not Given Metoprolol Tartrate (Lopressor -) 25 mg GT BID [facility] Last Admin: 04/21/18 12:39 Dose: 25 mg Mirtazapine (Remeron -) 15 mg GT DAILY [facility] Last Admin: 04/21/18 12:39 Dose: 15 mg Vancomycin HCl (Vancomycin Oral Solution) 125 mg GT Q6HPO [facility] Last Admin: 04/21/18 12:39 Dose: 125 mg - Objective Vital Signs: Vital Signs Temperature 97.5 F L 04/21/18 12:07 Pulse Rate 68 04/21/18 12:07 Respiratory Rate 20 04/21/18 12:07 Blood Pressure 151/92 04/21/18 12:07 O2 Sat by Pulse Oximetry (%) 97 04/21/18 12:07 Constitutional: Yes: Calm Eyes: Yes: Conjunctiva Clear HENT: Yes: Atraumatic Cardiovascular: Yes: S1, S2 Respiratory: Yes: CTA Bilaterally Gastrointestinal: Yes: Soft, Other (peg) Genitourinary: Yes: Incontinence Musculoskeletal: Yes: Muscle Weakness Edema: No Neurological: Yes: Confusion Labs: CBC, BMP 04/21/18 05:30 04/21/18 05:30 INR, PTT INR 0.97 (0.83-1.09) 04/20/18 09:15 Problem List - Problems (1) Dialysis catheter clot or failure Code(s): [id number] - (2) ESRD (end stage renal disease) on dialysis Code(s): N18.6 - END STAGE RENAL DISEASE; Z99.2 - DEPENDENCE ON RENAL DIALYSIS Assessment/Plan Current Medications Generic Name Dose Route Start Last Admin Trade Name Freq PRN Reason Stop Dose Admin Amlodipine Besylate 5 mg 04/21/18 10:00 04/21/18 12:39 Norvasc - GT 5 mg DAILY [facility] Administration Epoetin Abe 10,000 unit 04/21/18 17:40 Epogen - IVPUSH 04/21/18 17:41 ONCE ONE Heparin Sodium (Porcine) 5,000 unit 04/20/18 22:00 04/21/18 05:34 Heparin - SQ 5,000 unit TID [facility] Administration Sodium Chloride 250 mls @ 3,000 mls/hr 04/20/18 17:40 Normal Saline - IV 04/21/18 17:40 PRN PRN Hypotension during Dialysis Lactobacillus Acidophilus 1 tab 04/21/18 10:00 04/21/18 12:38 Bacid - GT Not Given DAILY [facility] Metoprolol Tartrate 25 mg 04/20/18 22:00 04/21/18 12:39 Lopressor - GT 25 mg BID [facility] Administration Mirtazapine 15 mg 04/21/18 10:00 04/21/18 12:39 Remeron - GT 15 mg DAILY [facility] Administration Vancomycin HCl 125 mg 04/20/18 18:00 04/21/18 12:39 Vancomycin Oral Solution GT 125 mg Q6HPO [facility] Administration Impression 1. ESRD 2. failed kidney transplant 3. hx DM 4. Hx HTN 5. sacral ulcer 6. post op infection 7. c.diff 8. a-fib 9. failure to thrive 10.malnutrition 11. anemia 12. GI bleed 13. PNA Plan - permacath change - will need HD likely tomorrow - vascular eval as fistula has thrill and bruit - monitor bp - will follow Dr Winters
[2018-04-22] MEDS: HEPARIN NA (PORCINE) 5,000 UNITS/ML 1ML VIAL SQ SCH ×3 (06:21→22:03)
[2018-04-22] MEDS: VANCOMYCIN 250 MG/5 ML ORAL SOLUTION GT SCH ×4 (06:22→17:29)
[2018-04-22] MEDS: METOPROLOL TARTRATE 25 MG TABLET (FP) GT SCH ×2 (09:45→22:03)
[2018-04-22] MEDS: amLODIPine BESYLATE 5 MG TABLET (FP) GT SCH (09:45)
[2018-04-22] MEDS: MIRTAZAPINE 15 MG TABLET (FP) GT SCH (09:45)
[2018-04-22] MEDS: LACTOBACILLUS ACIDOPHILUS 1 TABLET GT SCH (09:46)
--- NOTE | 2018-04-22 12:10 | PN ---
Teaching Attending Note Name of Resident: Joya Haddad ATTENDING PHYSICIAN STATEMENT I saw and evaluated the patient. I reviewed the resident's note and discussed the case with the resident. I agree with the resident's findings and plan as documented. SUBJECTIVE: she denies any pain. RN reports productive cough . OBJECTIVE: NAD , awake, alert Cv: RRR, 3/6 SM at LLSB Lungs: CTAB Abd: soft, NT, ND, NL BS Ext: no edema Lines: R upper chest HD cath partially pulled out Assessment/Plan: 77 y/o lady with h/o dementia , recurrent C diff, s/p fecal transplant, currently o n vanco taper , HTN, HLP, DM, ESRD on MWF schedule , s/p failed renal Tx, depression, A fib, GI bleed , who presented after Dr. Winters recommended admission for evaluation of HD catheter . she also has diarrhea and cough . 1- HD cath malfunction: will place change roof bolter a wire by IR 2- Diarrhea; resolved , no recurence in Hospital - no stool for c diff sample was obtained as not stooling. will change po vanco to home dose QOD to complete her taper 3- Cough, will get CT of chest 4- HTN urgency. cont home meds norvasc and lopressor 5- nutrition : cont nepro TID bolus. and cont po intake puree with thick liquids . - dietitian eval - speech eval 6- ESRD: HD per jennifer 7- hypoglycemia: due to poor nutrition. dispo depends on w/u . lives at home with son with services. will dc home when w /u is done .? later today
--- NOTE | 2018-04-22 16:02 | CONSULT ---
Admitting History and Physical - Admission Chief Complaint: Dementia History Source: Medical Record (Pt. 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 s/p fecal transplant) Renal/: Yes: Renal Failure, Renal Inusuff, Hemodialysis, Other (failed renal transplant) Heme/Onc: Yes: Anemia Infectious Disease: Yes: C-Diff, Other (ecoli esbl wound infection) Endocrine: Yes: Diabetes Mellitus - Past Surgical History Past Surgical History: Yes: Kidney Transplant - Smoking History Smoking history: Never smoked Have you smoked in the past 12 months: No - Alcohol/Substance Use Hx Alcohol Use: No History of Substance Use: reports: None - Social History ADL: Family Assistance History of Recent Travel: No History - Admission Reason For Visit: DIALYSIS CATHERER CLOT/FAILURE - Hearing Hearing: Normal Hearing Aide: No With Patient: No Speech Evaluation - Communication Primary Language: KYRGYZ Communication: Yes: Simple Responses Oral Expression Ability: Yes: Moderate Impairment (Does nt respond to questions asked. Tangential with confabulations. Frequently dropped her head and became noncommunicative and would then respond again.) - Speech Production Able to Make Needs Known: Yes: Mildly Impaired Intelligibility: Yes: Mildly Impaired - Speech Characteristics Voice Loudness: Moderately Soft/Quiet Voice Pitch: Yes: Normal Voice Phonatory-based Quality: Yes: Normal Speech Pattern: Normal Speech Clarity: < 75% Nasal Resonance: Normal Articulation: Yes: Precise Voice, Other Observations: Yes: Progressively Weak Voice - Language/Auditory Comprehension Observation: Able to respond to yes/no queries: Yes, Yes/No Confusion: Yes, Comprehends Conversational Speech: Yes (With frequent repetition.), Benefits from Repetiton: Yes - Language/Verbal Expression Able to Respond to Simple Queries: Yes: Mildly Impaired Able to Communicate Wants and Needs: Yes: Mildly Impaired Functional Communication Status: Yes: Mildly Impaired Aware of Errors: No Attention: Yes: Moderate Impairment (Reqired frequent re-direction.) - Swallow Evaluation/Bedside Assessment Current Nutritional Intake: Honey Textured Liquids Oral Secretions: Yes: WFL (No drooling or pooling noted.) Dentition: Yes: Adequate Facial Symmetry at Rest: Facial Droop Right (Mild.) Lingual Speed of Movement: Normal Lingual Movement Strgth Against Opposition: Reduced Lingual Movement Characteristics: Normal Lingual Comment: Able to imitate lingual movements. Soft Palate Description: Normal Color Hard Palate Description: Normal Color Velopharyngeal Movement: Normal Laryngeal Movement: Other (Pt. refused.) Needs Assistance: Yes A-P Transit: WFL Other Findings/Remarks: Pt. refused PO trials. She verbalized, "I don't want to do it, I'm sorry" Recommendations - Speech Evaluation, Impression/Plan Impression: Pt. awake but minimally alert. Required repetition and maximum prompting in order to cooperate. Pt. answered a few questions but ultimately refused PO trials during this evaluation stating "I really don't want to do it, I'm sorry." When communciating with Pt., keep sentences short and to the point. She requires re-statement, re-direction and cues to stay on topic. Recommended Therapies: Other (Spech therapy not indicated at this time.) - Disposition Discharge to: Home with Assist - Dysphagia Impressions/Plan Dysphagia Impressions: Refused PO Trials - Recommendations Diet Consistency: Dysphagia Pureed Liquids: Honey Thick (Supervision during meals. Discussed with Nurse.)
--- NOTE | 2018-04-22 16:25 | PN ---
Progress Note, Physician History of Present Illness: Pt seen and examined at bedside. She had permacath changed today. - Current Medication List Current Medications: Active Medications Amlodipine Besylate (Norvasc -) 5 mg GT DAILY [facility] Last Admin: 04/22/18 09:45 Dose: 5 mg Epoetin Abe (Epogen -) 10,000 unit IVPUSH ONCE ONE Stop: 04/21/18 17:41 Heparin Sodium (Porcine) (Heparin -) 5,000 unit SQ TID [facility] Last Admin: 04/22/18 14:09 Dose: 5,000 unit Sodium Chloride (Normal Saline -) 250 mls @ 3,000 mls/hr IV PRN PRN PRN Reason: Hypotension during Dialysis Stop: 04/21/18 17:40 Lactobacillus Acidophilus (Bacid -) 1 tab GT DAILY [facility] Last Admin: 04/22/18 09:46 Dose: 1 tab Metoprolol Tartrate (Lopressor -) 25 mg GT BID [facility] Last Admin: 04/22/18 09:45 Dose: 25 mg Mirtazapine (Remeron -) 15 mg GT DAILY [facility] Last Admin: 04/22/18 09:45 Dose: 15 mg Vancomycin HCl (Vancomycin Oral Solution) 125 mg GT Q6HPO [facility] Last Admin: 04/22/18 13:57 Dose: 125 mg - Objective Vital Signs: Vital Signs Temperature 97.8 F 04/22/18 08:55 Pulse Rate 70 04/22/18 08:55 Respiratory Rate 18 04/22/18 08:55 Blood Pressure 148/72 04/22/18 08:55 O2 Sat by Pulse Oximetry (%) 95 04/22/18 09:00 Constitutional: Yes: Calm Eyes: Yes: Conjunctiva Clear Cardiovascular: Yes: S1, S2 Respiratory: Yes: CTA Bilaterally Gastrointestinal: Yes: Normal Bowel Sounds, Soft, Other (peg) Musculoskeletal: Yes: Muscle Weakness Edema: No Integumentary: Yes: Pressure Ulcer Neurological: Yes: Confusion Labs: CBC, BMP 04/21/18 05:30 04/21/18 05:30 INR, PTT INR 0.97 (0.83-1.09) 04/20/18 09:15 Problem List - Problems (1) Dialysis catheter clot or failure Code(s): [id number] - (2) ESRD (end stage renal disease) on dialysis Code(s): N18.6 - END STAGE RENAL DISEASE; Z99.2 - DEPENDENCE ON RENAL DIALYSIS Assessment/Plan Current Medications Generic Name Dose Route Start Last Admin Trade Name Freq PRN Reason Stop Dose Admin Amlodipine Besylate 5 mg 04/21/18 10:00 04/22/18 09:45 Norvasc - GT 5 mg DAILY [facility] Administration Epoetin Abe 10,000 unit 04/21/18 17:40 Epogen - IVPUSH 04/21/18 17:41 ONCE ONE Heparin Sodium (Porcine) 5,000 unit 04/20/18 22:00 04/22/18 14:09 Heparin - SQ 5,000 unit TID [facility] Administration Sodium Chloride 250 mls @ 3,000 mls/hr 04/20/18 17:40 Normal Saline - IV 04/21/18 17:40 PRN PRN Hypotension during Dialysis Lactobacillus Acidophilus 1 tab 04/21/18 10:00 04/22/18 09:46 Bacid - GT 1 tab DAILY [facility] Administration Metoprolol Tartrate 25 mg 04/20/18 22:00 04/22/18 09:45 Lopressor - GT 25 mg BID [facility] Administration Mirtazapine 15 mg 04/21/18 10:00 04/22/18 09:45 Remeron - GT 15 mg DAILY [facility] Administration Vancomycin HCl 125 mg 04/20/18 18:00 04/22/18 13:57 Vancomycin Oral Solution GT 125 mg Q6HPO [facility] Administration Impression 1. ESRD 2. failed kidney transplant 3. hx DM 4. Hx HTN 5. sacral ulcer 6. post op infection 7. c.diff 8. a-fib 9. failure to thrive 10.malnutrition 11. anemia 12. GI bleed 13. PNA Plan - HD after permacath change - discussed with IR - will need vascular eval for fistula - HD today - will follow Dr Winters
[2018-04-22] MEDS ORDERED: SODIUM CHLORIDE 250 ML IV PRN (16:38)
[2018-04-22] MEDS ORDERED: EPOETIN ALFA 10,000 UNIT/1 ML VIAL IVPUSH ONE (16:45)
--- NOTE | 2018-04-22 17:20 | PN ---
Physical Exam: SUBJECTIVE: Patient seen and examined at bedside this morning. No acute events overnight. She is awake, not talking. Not complaining of anything. OBJECTIVE: Vital Signs Period Temp Pulse Resp BP Sys/Franco Pulse Ox Last 24 Hr 97.7 F-98.1 F 70-77 18-20 118-167/60-88 95-99 GENERAL: Lying in bed, in no acute distress. LUNGS: Breath sounds clear to auscultation bilaterally. HEART: Regular rate and rhythm, S1, S2 without murmur, rub or gallop. ABDOMEN: Soft, nontender, nondistended, normoactive bowel sounds, +open wound on the RLQ, clean, dry, intact, no purulent discharge. EXTREMITIES: palpable DP pulses bilaterally, warm, well-perfused, no edema. SKIN: Warm, dry, normal turgor Laboratory Results - last 24 hr 04/22/18 04/22/18 10:00 14:29 POC Glucometer 65 97 Active Medications Generic Name Dose Route Start Last Admin Trade Name Freq PRN Reason Stop Dose Admin Amlodipine Besylate 5 mg 04/21/18 10:00 04/22/18 09:45 Norvasc - GT 5 mg DAILY [facility] Administration Heparin Sodium (Porcine) 5,000 unit 04/20/18 22:00 04/22/18 14:09 Heparin - SQ 5,000 unit TID [facility] Administration Sodium Chloride 250 mls @ 3,000 mls/hr 04/22/18 16:38 Normal Saline - IV PRN PRN Hypotension during Dialysis Lactobacillus Acidophilus 1 tab 04/21/18 10:00 04/22/18 09:46 Bacid - GT 1 tab DAILY [facility] Administration Metoprolol Tartrate 25 mg 04/20/18 22:00 04/22/18 09:45 Lopressor - GT 25 mg BID [facility] Administration Mirtazapine 15 mg 04/21/18 10:00 04/22/18 09:45 Remeron - GT 15 mg DAILY [facility] Administration Vancomycin HCl 125 mg 04/20/18 18:00 04/22/18 13:57 Vancomycin Oral Solution GT 125 mg Q6HPO [facility] Administration ASSESSMENT/PLAN: Patient is a 77 year old female with past medical history of dementia, 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 #ESRD on HD (MWF): HD catheter malfunction -IR-guided catheter placement done. -patient received dialysis today. #Cough -rule out pneumonia -CXR: left lower lobe infiltrate -Chest CT: small bilateral pleural effusions with compression atelectasis/ scarring at both bases. #Diarrhea -Stool cx ordered but no patient had no bowel movements since admission -resume Vancomycin taper 125mg PO Q2D #FEN -not on any standing fluids -electrolytes wnl, routine bmp monitoring -Pureed diet, with thickened liquids #Prophylaxis -Heparin 5000units sq tid #Disposition -full code -med-surg Visit type - Emergency Visit Emergency Visit: Yes ED Registration Date: 04/22/18 Care time: The patient presented to the Emergency Department on the above date and was hospitalized for further evaluation of their emergent condition. - New Patient This patient is new to me today: Yes Date on this admission: 04/22/18 - Critical Care Critical Care patient: No
[2018-04-23] MEDS: VANCOMYCIN 250 MG/5 ML ORAL SOLUTION GT SCH ×2 (00:10→05:48)
[2018-04-23 02:19] VITALS: BMI 14.8
[2018-04-23] MEDS: HEPARIN NA (PORCINE) 5,000 UNITS/ML 1ML VIAL SQ SCH ×3 (05:48→22:23)
[2018-04-23] MEDS: MIRTAZAPINE 15 MG TABLET (FP) GT SCH (10:43)
[2018-04-23] MEDS: amLODIPine BESYLATE 5 MG TABLET (FP) GT SCH (10:43)
[2018-04-23] MEDS: METOPROLOL TARTRATE 25 MG TABLET (FP) GT SCH ×2 (10:44→22:23)
[2018-04-23] MEDS: LACTOBACILLUS ACIDOPHILUS 1 TABLET GT SCH (10:44)
--- NOTE | 2018-04-23 12:30 | PN ---
Progress Note, Physician History of Present Illness: Pt seen and examined at bedside. She is awake and appears comfortable. - Current Medication List Current Medications: Active Medications Amlodipine Besylate (Norvasc -) 5 mg GT DAILY [facility] Last Admin: 04/23/18 10:43 Dose: 5 mg Heparin Sodium (Porcine) (Heparin -) 5,000 unit SQ TID [facility] Last Admin: 04/23/18 05:48 Dose: 5,000 unit Sodium Chloride (Normal Saline -) 250 mls @ 3,000 mls/hr IV PRN PRN PRN Reason: Hypotension during Dialysis Lactobacillus Acidophilus (Bacid -) 1 tab GT DAILY [facility] Last Admin: 04/23/18 10:44 Dose: 1 tab Metoprolol Tartrate (Lopressor -) 25 mg GT BID [facility] Last Admin: 04/23/18 10:44 Dose: 25 mg Mirtazapine (Remeron -) 15 mg GT DAILY [facility] Last Admin: 04/23/18 10:43 Dose: 15 mg Vancomycin HCl (Vancomycin Oral Solution) 125 mg GT Q6HPO [facility] Last Admin: 04/23/18 05:48 Dose: 125 mg - Objective Vital Signs: Vital Signs Temperature 97.4 F L 04/23/18 06:50 Pulse Rate 74 04/23/18 06:50 Respiratory Rate 20 04/23/18 06:50 Blood Pressure 109/79 04/23/18 06:50 O2 Sat by Pulse Oximetry (%) 95 04/22/18 21:00 Constitutional: Yes: Calm Eyes: Yes: Conjunctiva Clear Cardiovascular: Yes: S1, S2 Respiratory: Yes: CTA Bilaterally Gastrointestinal: Yes: Soft, Other (peg) Genitourinary: Yes: Incontinence Musculoskeletal: Yes: Muscle Weakness Edema: No Neurological: Yes: Confusion Labs: CBC, BMP 04/21/18 05:30 04/21/18 05:30 INR, PTT INR 0.97 (0.83-1.09) 04/20/18 09:15 Problem List - Problems (1) Dialysis catheter clot or failure Code(s): [id number] - (2) ESRD (end stage renal disease) on dialysis Code(s): N18.6 - END STAGE RENAL DISEASE; Z99.2 - DEPENDENCE ON RENAL DIALYSIS Assessment/Plan Current Medications Generic Name Dose Route Start Last Admin Trade Name Freq PRN Reason Stop Dose Admin Amlodipine Besylate 5 mg 04/21/18 10:00 04/23/18 10:43 Norvasc - GT 5 mg DAILY [facility] Administration Heparin Sodium (Porcine) 5,000 unit 04/20/18 22:00 04/23/18 05:48 Heparin - SQ 5,000 unit TID [facility] Administration Sodium Chloride 250 mls @ 3,000 mls/hr 04/22/18 16:38 Normal Saline - IV PRN PRN Hypotension during Dialysis Lactobacillus Acidophilus 1 tab 04/21/18 10:00 04/23/18 10:44 Bacid - GT 1 tab DAILY [facility] Administration Metoprolol Tartrate 25 mg 04/20/18 22:00 04/23/18 10:44 Lopressor - GT 25 mg BID [facility] Administration Mirtazapine 15 mg 04/21/18 10:00 04/23/18 10:43 Remeron - GT 15 mg DAILY [facility] Administration Vancomycin HCl 125 mg 04/20/18 18:00 04/23/18 05:48 Vancomycin Oral Solution GT 125 mg Q6HPO [facility] Administration Impression 1. ESRD 2. failed kidney transplant 3. hx DM 4. Hx HTN 5. sacral ulcer 6. post op infection 7. c.diff 8. a-fib 9. failure to thrive 10.malnutrition 11. anemia 12. GI bleed 13. PNA Plan - pt tolerated HD yesterday - pt has HD set up as outpt - will need vascular follow up after discharge - will follow Dr Winters
[2018-04-23] MEDS ORDERED: ALBUTEROL SO4 8 GM HFA INHALER IH PRN (13:24)
--- NOTE | 2018-04-23 15:36 | PN ---
Progress Note (short form) - Note Progress Note: Subjective: No events over night. no hx obtained due to dementia did not have diarrhea yesterday or over night. spoke to son: she has diarrhea with the nepro , and he requested changing to another supplement. He also reports out pt treatment of cipro and bactrim that started recently by the visiting doctor for positive wound cx . he thinks wound is infected and requests a wound cx Objective: Vital Signs: Last Vital Signs Temp Pulse Resp BP Pulse Ox 97.4 F L 74 20 109/79 95 04/23/18 06:50 04/23/18 06:50 04/23/18 06:50 04/23/18 06:50 04/22/18 21:00 Laboratory Results - last 24 hr 04/22/18 04/22/18 04/23/18 17:17 22:06 05:50 POC Glucometer 87 72 60 04/23/18 11:22 POC Glucometer 73 Physical Exam: NAD , awake, alert Cv: RRR, 3/6 SM at LLSB Lungs: CTAB Abd: soft, NT, ND, NL BS Ext: no edema Lines: R upper chest HD cath partially pulled out Assessment/Plan: 77 y/o lady with h/o dementia , recurrent C diff, s/p fecal transplant, currently o n vanco taper , HTN, HLP, DM, ESRD on MWF schedule , s/p failed renal Tx, depression, A fib, GI bleed, who presented after Dr. Winters recommended admission for evaluation of HD catheter . she also has diarrhea and cough . 1- HD cath malfunction:changed by IR yesterday. functional. need f/u with Dr. day after dc to assess her fistula 2- Diarrhea; resolved , no recurrence in Hospital but has not been taking her Nepro due t error in order. after discussion with son, her diarhea might be due to the TF and due to the recent out pt abx she was given for + wound cx . - spoke to dietitian who recommended changing to Two Jaxson TF, one can TID with 50 cc of free water flushs before and after each feeding . - vanco QOD per a out patient taper - follow with ID as out pt for c diff management ( son aware ) 3- Cough, No ct evidence of PNA 4- HTN: cont home meds norvasc and lopressor 5- sacral decub: son requests wound cx as out pt wound cx was + and she was started on heraclio and bactrim. - avoid unnecessary Abx especially with recurrent c diff infections . - Spoke to Dr. Azevedo to evaluate wound. If no signs of infection, will avoid repeat cx as wound is probably colonized 6- ESRD: HD per jennifer 7- hypoglycemia: TF Lives with son, who could not manage her diarrhea at home. now TF were changed and will monitor for diarrhea till tomorrow . sacral decub eval by ID dc home tomorrow . social work for services . Visit type - Emergency Visit Emergency Visit: Yes ED Registration Date: 04/22/18 Care time: The patient presented to the Emergency Department on the above date and was hospitalized for further evaluation of their emergent condition. - New Patient This patient is new to me today: No - Critical Care Critical Care patient: No
--- NOTE | 2018-04-23 18:32 | PN ---
Progress Note (short form) - Note Progress Note: ID consult dictated Sacral decubitus ulcer not clinically infected No evidence of systemic infection Hx C difficile colitis ESRD Observe off antibiotics Continue po vancomycin Repeat C difficile for persistant diarrhea Wound care
[2018-04-24] MEDS: HEPARIN NA (PORCINE) 5,000 UNITS/ML 1ML VIAL SQ SCH ×3 (06:45→21:40)
[2018-04-24] MEDS ORDERED: INSULIN (LEVEMIR) 100 UNITS/ML UNITS SQ ONE (07:41)
--- NOTE | 2018-04-24 09:32 | CONS ---
DATE OF CONSULTATION: 04/23/2018 The patient is a 77-year-old female who was evaluated for decubitus ulcer. History was obtained from the chart and hospitalist as she cannot give a history. The patient had a recent prolonged hospitalization at [facility] from February 27 through April 08. At that time she was evaluated for a nonhealing sacral ulcer. A CAT scan of the sacrum showed no evidence of sacral osteomyelitis. Her course was complicated by C. difficile colitis for which she required a slow vancomycin taper. She was readmitted from the senior living after difficulties with her dialysis catheter. Infectious disease consultation was requested for evaluation of her sacral ulcer. Patient has a history of recurrent C. difficile colitis. She was treated in the past and required a fecal transplant at one point, currently on a vancomycin taper. She had watery diarrhea for approximately 5 days prior to her readmission while on vancomycin taper. She is awake; however, unable to offer any additional history. Denies any abdominal pain. No reports of fever or elevated white blood cell count. No reports of purulent wound drainage from the sacral decubitus ulcer. PAST MEDICAL HISTORY: Positive for dementia, hypertension, hyperlipidemia, diabetes mellitus, end-stage renal disease, history of refractory/recurrent C. difficile colitis. ALLERGIES: No known allergies. MEDICATIONS: Albuterol, amlodipine, lactobacillus, metoprolol, vancomycin. SOCIAL HISTORY: Resides in a snf facility. No active tobacco or alcohol use. REVIEW OF SYSTEMS: Neurologic: Positive for dementia. Cardiac: Negative chest pain or palpitations. Respiratory: Negative cough or sputum production. Gastrointestinal: As per HPI. Genitourinary: End-stage renal disease on dialysis. LABORATORY DATA: White count 5.8, hematocrit 31.9, platelet count 228. BUN 26, creatinine 3.1. Blood cultures preliminarily negative. PHYSICAL EXAMINATION: General: She is awake, confused, supine in bed. Vital Signs: Temperature 97.4, blood pressure 109/79, pulse 74, regular respirations 20 per minute. HEENT: Sclerae are anicteric. Oropharynx negative. Cardiovascular: Heart sounds S1, S2. Positive murmur. Lungs: Grossly clear. Poor inspiratory effort. Abdomen: Soft. No tenderness elicited. Feeding gastrostomy tube is in place. Extremities: Examination negative for edema. There is a superficial left ischial ulcer approximately 1 cm without evidence of infection. In the sacral area there is a deeper decubitus ulcer approximately 3 cm in diameter with granulation tissue. There was no purulent drainage or foul odor. No surrounding erythema. IMPRESSION: 1. Sacral decubitus ulcer not clinically infected. 2. No evidence of systemic infection. 3. History of recurrent Clostridium difficile colitis. 4. End-stage renal disease on hemodialysis. Would observe off systemic antibiotics, obtain surgical evaluation for wound care. Repeat C. difficile for persistent diarrhea. Continue oral vancomycin, contact precautions. May require repeat treatment for C. difficile colitis with long vancomycin taper. Thank you for the kind referral. BARBI ALCALA M.D. [id number]
[2018-04-24] MEDS ORDERED: VANCOMYCIN 250 MG/5 ML ORAL SOLUTION PO SCH (10:00)
[2018-04-24] MEDS: amLODIPine BESYLATE 5 MG TABLET (FP) GT SCH (10:10)
[2018-04-24] MEDS: MIRTAZAPINE 15 MG TABLET (FP) GT SCH (10:10)
[2018-04-24] MEDS: LACTOBACILLUS ACIDOPHILUS 1 TABLET GT SCH (10:10)
[2018-04-24] MEDS: METOPROLOL TARTRATE 25 MG TABLET (FP) GT SCH ×2 (10:10→21:40)
--- NOTE | 2018-04-24 12:46 | PN ---
Progress Note, Physician History of Present Illness: Pt seen and examined at bedside. She is awake and appears comfortable. - Current Medication List Current Medications: Active Medications Albuterol Sulfate (Ventolin Hfa Inhaler -) 2 puff IH Q4H PRN PRN Reason: SHORT OF BREATH/WHEEZING Amlodipine Besylate (Norvasc -) 5 mg GT DAILY [facility] Last Admin: 04/24/18 10:10 Dose: 5 mg Epoetin Abe (Procrit -) 10,000 unit IVPUSH ONCE ONE Stop: 04/24/18 12:31 Heparin Sodium (Porcine) (Heparin -) 5,000 unit SQ TID [facility] Last Admin: 04/24/18 06:45 Dose: 5,000 unit Sodium Chloride (Normal Saline -) 250 mls @ 3,000 mls/hr IV PRN PRN PRN Reason: Hypotension during Dialysis Sodium Chloride (Normal Saline -) 250 mls @ 3,000 mls/hr IV PRN PRN PRN Reason: Hypotension during Dialysis Stop: 04/24/18 12:30 Lactobacillus Acidophilus (Bacid -) 1 tab GT DAILY [facility] Last Admin: 04/24/18 10:10 Dose: 1 tab Metoprolol Tartrate (Lopressor -) 25 mg GT BID [facility] Last Admin: 04/24/18 10:10 Dose: 25 mg Mirtazapine (Remeron -) 15 mg GT DAILY [facility] Last Admin: 04/24/18 10:10 Dose: 15 mg Vancomycin HCl (Vancomycin Oral Solution) 125 mg PO Q48H [facility] Last Admin: 04/24/18 10:10 Dose: 125 mg - Objective Vital Signs: Vital Signs Temperature 97.5 F L 04/24/18 06:37 Pulse Rate 74 04/24/18 06:37 Respiratory Rate 20 04/24/18 06:37 Blood Pressure 186/93 H 04/24/18 06:37 O2 Sat by Pulse Oximetry (%) 95 04/23/18 21:00 Constitutional: Yes: Calm Eyes: Yes: Conjunctiva Clear HENT: Yes: Atraumatic Neck: Yes: Supple Cardiovascular: Yes: S1, S2 Respiratory: Yes: CTA Bilaterally Gastrointestinal: Yes: Soft Genitourinary: Yes: Incontinence Musculoskeletal: Yes: Muscle Weakness Edema: No Neurological: Yes: Confusion Labs: CBC, BMP 04/21/18 05:30 04/21/18 05:30 INR, PTT INR 0.97 (0.83-1.09) 04/20/18 09:15 Problem List - Problems (1) Dialysis catheter clot or failure Code(s): QGD0183 - (2) ESRD (end stage renal disease) on dialysis Code(s): N18.6 - END STAGE RENAL DISEASE; Z99.2 - DEPENDENCE ON RENAL DIALYSIS Assessment/Plan Current Medications Generic Name Dose Route Start Last Admin Trade Name Freq PRN Reason Stop Dose Admin Albuterol Sulfate 2 puff 04/23/18 13:24 Ventolin Hfa Inhaler - IH Q4H PRN SHORT OF BREATH/WHEEZING Amlodipine Besylate 5 mg 04/21/18 10:00 04/24/18 10:10 Norvasc - GT 5 mg DAILY H[facility] Administration Epoetin Abe 10,000 unit 04/24/18 12:30 Procrit - IVPUSH 04/24/18 12:31 ONCE ONE Heparin Sodium (Porcine) 5,000 unit 04/20/18 22:00 04/24/18 06:45 Heparin - SQ 5,000 unit TID HARPAL Administration Sodium Chloride 250 mls @ 3,000 mls/hr 04/22/18 16:38 Normal Saline - IV PRN PRN Hypotension during Dialysis Sodium Chloride 250 mls @ 3,000 mls/hr 04/23/18 12:30 Normal Saline - IV 04/24/18 12:30 PRN PRN Hypotension during Dialysis Lactobacillus Acidophilus 1 tab 04/21/18 10:00 04/24/18 10:10 Bacid - GT 1 tab DAILY [facility] Administration Metoprolol Tartrate 25 mg 04/20/18 22:00 04/24/18 10:10 Lopressor - GT 25 mg BID HARPAL Administration Mirtazapine 15 mg 04/21/18 10:00 04/24/18 10:10 Remeron - GT 15 mg DAILY [facility] Administration Vancomycin HCl 125 mg 04/24/18 10:00 04/24/18 10:10 Vancomycin Oral Solution PO 125 mg Q48H HARPAL Administration Impression 1. ESRD 2. failed kidney transplant 3. hx DM 4. Hx HTN 5. sacral ulcer 6. post op infection 7. c.diff 8. a-fib 9. failure to thrive 10.malnutrition 11. anemia 12. GI bleed 13. PNA Plan - HD today - vascular follow up for fistula - epogen for anemia - pt has HD set up as outpt - will follow Dr Winters
[2018-04-24] MEDS ORDERED: EPOETIN ALFA 10,000 UNIT/1 ML VIAL IVPUSH ONE (14:45)
[2018-04-24] MEDS ORDERED: SODIUM CHLORIDE 250 ML IV PRN (14:45)
[2018-04-24 15:39] LABS: HEMATOCRIT 28.1 % (32.4-45.2); HEMOGLOBIN 9.1 GM/dL (10.7-15.3); MCH 31.3 pg (25.7-33.7); MCHC 32.4 g/dl (32.0-36.0); MEAN CELL VOLUME 96.8 fl (80-96); PLATELET COUNT 183 K/MM3 (134-434); WHITE BLOOD COUNT 5.1 K/mm3 (4.0-10.0)
[2018-04-24 16:16] LABS: ANION GAP 4 MMOL/L (8-16); BLOOD UREA NITROGEN 22 mg/dL (7-18); CALCIUM 8.5 mg/dL (8.5-10.1); CHLORIDE 103 mmol/L (98-107); CO2 31 mmol/L (21-32); CREATININE 3.7 mg/dL (0.55-1.3); GLUCOSE,RANDOM 94 mg/dL (74-106); POTASSIUM 4.3 mmol/L (3.5-5.1); SODIUM 139 mmol/L (136-145)
--- NOTE | 2018-04-24 17:11 | DS ---
Physical Exam: SUBJECTIVE: Patient seen and examined at bedside this morning. No acute events overnight. Patient has no new complaints and expresses her wish to go home. OBJECTIVE: Vital Signs Period Temp Pulse Resp BP Sys/Franco Pulse Ox Last 24 Hr 97.5 F-97.6 F 74-110 20-20 156-186/88-99 94-95 PHYSICAL EXAM GENERAL: The patient is awake, alert, and fully oriented, in no acute distress. NECK: Trachea midline, full range of motion, supple. LUNGS: Breath sounds equal, clear to auscultation bilaterally. HEART: Regular rate and rhythm, S1, S2 without murmur, rub or gallop. ABDOMEN: Soft, nontender, nondistended, normoactive bowel sounds. EXTREMITIES: 2+ pulses, warm, well-perfused, no edema. NEUROLOGICAL: Cranial nerves II through XII grossly intact. Normal speech, gait not observed. PSYCH: Normal mood, normal affect. SKIN: Warm, dry, normal turgor, no rashes or lesions noted. LABS Laboratory Results - last 24 hr 04/23/18 04/23/18 04/24/18 17:06 22:24 06:42 WBC RBC Hgb Hct MCV MCH MCHC RDW Plt Count MPV Sodium Potassium Chloride Carbon Dioxide Anion Gap BUN Creatinine Creat Clearance w eGFR POC Glucometer 80 79 74 Random Glucose Calcium 04/24/18 04/24/18 04/24/18 11:02 15:00 15:00 WBC 5.1 RBC 2.90 L Hgb 9.1 L Hct 28.1 L MCV 96.8 H MCH 31.3 MCHC 32.4 RDW 18.0 H Plt Count 183 MPV 9.0 Sodium 139 Potassium 4.3 Chloride 103 Carbon Dioxide 31 Anion Gap 4 L BUN 22 H Creatinine 3.7 H Creat Clearance w eGFR 11.85 POC Glucometer 107 Random Glucose [address]: small bilateral pleural effusions with compression atelectasis/ scarring at both bases. HOSPITAL COURSE: Date of Admission:04/22/18 Date of Discharge: 04/24/18 Patient is a 77 year old female with past medical history of dementia, recurrent C. diff on vanco taper, ESRD (HD on MWF, s/p failed renal transplant) , HTN, HLD, DM, depression, A.fib, GI bleed, presented to the ED for evaluation of hemodialysis catheter. Son also reported patient had few days history of cough and watery diarrhea. ID and Nephrology consulted. HD catheter changed and patient received hemodialysis during her hospital stay. Chest CT was done to rule out pneumonia and was negative of any concerns. Tube feeds were also changed to Two Jaxson as son was reporting the nepro was causing the patient diarrhea. Patient has had no episodes of diarrhea during her hospital stay and PO vancomycin taper were resumed. Minutes to complete discharge: 35 Discharge Summary Reason For Visit: DIALYSIS CATHERER CLOT/FAILURE Current Active Problems ESRD (end stage renal disease) on dialysis (Chronic) Condition: Stable - Instructions Diet, Activity, Other Instructions: Your visit You were admitted to the hospital because you had problems with your dialysis catheter. Your catheter was changed and you received dialysis while you were in the hospital. While you were here, you were also seen by an infection doctor to have your wound evaluated. There was no sign of infection. Medications Please resume all your home medications. We have resumed your home dose of Vancomycin 125mg every other day. Care Continue hemodialysis as scheduled (MWF). Follow-up Please follow up with the following doctors: -your infectious disease physician (Dr. Winters) within 1-2 weeks. -Follow-up with your primary care doctor within 1 week. Additional info -Call 911 or go to the ED if with any worsening fever, chills, headache, nausea , vomiting, chest pain, shortness of breath, belly pain, or any new concerns noted. Referrals: Simeon Neri MD [Staff Physician] - 1 Week Danielle Winters MD [Staff Physician] - 1 Week Disposition: HOME - Home Medications Comprehensive Discharge Medication List: Ambulatory Orders Lactobacillus Acidophilus [Bacid -] 1 each PO DAILY 30 Days #30 tab 04/08/18 Mirtazapine [Remeron -] 15 mg GT DAILY 30 Days #30 tablet 04/08/18 Amlodipine Besylate [Norvasc -] 5 mg PO DAILY 04/20/18 Metoprolol Tartrate [Lopressor -] 25 mg GT BID 04/20/18 Nut.tx.imp.renal Fxn,Lac-Reduc [Nepro Carb Steady] 236 ml PO TID 04/20/18 Vancomycin Oral Solution 125 mg GT Q2D 04/20/18 This patient is new to me today: No Emergency Visit: Yes ED Registration Date: 04/22/18 Care time: The patient presented to the Emergency Department on the above date and was hospitalized for further evaluation of their emergent condition. Critical Care patient: No - Discharge Referral Referred to [facility] No
--- NOTE | 2018-04-24 19:14 | PN ---
Teaching Attending Note Name of Resident: Marisela Simmons ATTENDING PHYSICIAN STATEMENT I saw and evaluated the patient. I reviewed the resident's note and discussed the case with the resident. I agree with the resident's findings and plan as documented. SUBJECTIVE: Patient is feeling better. OBJECTIVE: Vital Signs Temperature 97.5 F L 04/24/18 06:37 Pulse Rate 74 04/24/18 18:58 Respiratory Rate 18 04/24/18 18:58 Blood Pressure 148/103 H 04/24/18 18:58 O2 Sat by Pulse Oximetry (%) 94 L 04/24/18 09:00 GENERAL: The patient is awake, alert, and fully oriented, NAD. NECK: Trachea midline, full range of motion, supple. LUNGS: Breath sounds equal, clear to auscultation bilaterally. HEART: Regular rate and rhythm, S1, S2 without murmur, rub or gallop. ABDOMEN: Soft, nontender, nondistended, normoactive bowel sounds. EXTREMITIES: 2+ pulses, warm, well-perfused, no edema. NEUROLOGICAL: Cranial nerves II through XII grossly intact. PSYCH: Normal mood, normal affect. SKIN: Warm, dry, normal turgor, no rashes or lesions noted. positive for decubitus ulcer stage 3, came from home. CBCD WBC 5.1 K/mm3 (4.0-10.0) 04/24/18 15:00 RBC 2.90 M/mm3 (3.60-5.2) L 04/24/18 15:00 Hgb 9.1 GM/dL (10.7-15.3) L 04/24/18 15:00 Hct 28.1 % (32.4-45.2) L 04/24/18 15:00 MCV 96.8 fl (80-96) H 04/24/18 15:00 MCHC 32.4 g/dl (32.0-36.0) 04/24/18 15:00 RDW 18.0 % (11.6-15.6) H 04/24/18 15:00 Plt Count 183 K/MM3 (134-434) 04/24/18 15:00 MPV 9.0 fl (7.5-11.1) 04/24/18 15:00 CMP Sodium 139 mmol/L (136-145) 04/24/18 15:00 Potassium 4.3 mmol/L (3.5-5.1) 04/24/18 15:00 Chloride 103 mmol/L (98-107) 04/24/18 15:00 Carbon Dioxide 31 mmol/L (21-32) 04/24/18 15:00 Anion Gap 4 MMOL/L (8-16) L 04/24/18 15:00 BUN 22 mg/dL (7-18) H 04/24/18 15:00 Creatinine 3.7 mg/dL (0.55-1.3) H 04/24/18 15:00 Creat Clearance w eGFR 11.85 (>60) 04/24/18 15:00 Random Glucose 94 mg/dL (74-106) 04/24/18 15:00 Calcium 8.5 mg/dL (8.5-10.1) 04/24/18 15:00 Total Bilirubin 0.6 mg/dL (0.2-1) 04/20/18 09:15 AST 38 U/L (15-37) H 04/20/18 09:15 ALT 19 U/L (13-61) 04/20/18 09:15 Alkaline Phosphatase 186 U/L (45-117) H 04/20/18 09:15 Total Protein 7.2 g/dl (6.4-8.2) 04/20/18 09:15 Albumin 1.9 g/dl (3.4-5.0) L 04/20/18 09:15 CARDIAC ENZYMES Creatine Kinase 28 IU/L (26-192) 04/20/18 09:15 Troponin I 0.05 ng/ml (0.00-0.05) 04/20/18 09:15 Current Medications Generic Name Dose Route Start Last Admin Trade Name Freq PRN Reason Stop Dose Admin Albuterol Sulfate 2 puff 04/23/18 13:24 Ventolin Hfa Inhaler - IH Q4H PRN SHORT OF BREATH/WHEEZING Amlodipine Besylate 5 mg 04/21/18 10:00 04/24/18 10:10 Norvasc - GT 5 mg DAILY HARP[facility] Administration Heparin Sodium (Porcine) 5,000 unit 04/20/18 22:00 04/24/18 15:12 Heparin - SQ Not Given TID HARPAL Lactobacillus Acidophilus 1 tab 04/21/18 10:00 04/24/18 10:10 Bacid - GT 1 tab DAILY [facility] Administration Metoprolol Tartrate 25 mg 04/20/18 22:00 04/24/18 10:10 Lopressor - GT 25 mg BID H[facility] Administration Mirtazapine 15 mg 04/21/18 10:00 04/24/18 10:10 Remeron - GT 15 mg DAILY [facility] Administration Vancomycin HCl 125 mg 04/24/18 10:00 04/24/18 10:10 Vancomycin Oral Solution PO 125 mg Q48H HARPAL Administration ASSESSMENT AND PLAN: Patient is a 77 y/o lady with PMHx of dementia , recurrent C diff, s/p fecal transplant, currently on oral vanco taper, HTN, HLP, DM, ESRD on MWF schedule , s/p failed renal Tx, depression, A fib, GI bleed, who presented for evaluation of HD catheter . # Malfunction of HD cath :changed by IR yesterday. functional. need f/u with Dr. day after dc to assess her fistula # Acute Diarrhea; resolved. Her diarrhea might be due to the TF and due to the recent out pt abx she was given for her decubitus ulcer. suggested to dietitian to change the Tube feed which changed to Two Jaxson TF, one can TID with 50 cc of free water flushs before and after each feeding . Vanco QOD per a out patient taper ,follow with ID as out pt for c diff management as an outpatient. (son is aware ) # Cough, No ct evidence of PNA # HTN: cont home meds norvasc and lopressor # sacral decub: son requests wound cx as out pt wound cx was positive and she was started on heraclio and bactrim. - avoid unnecessary Abx especially with recurrent c diff infections . As per Dr. Azevedo , decubitus ulcer no need for antibiotic at this time. # ESRD: on HD continue as per renal # hypoglycemia: continue TF Patinet lives with son, who could not manage her diarrhea at home. now TF were changed and will monitor for diarrhea till tomorrow . dc patient home.
[2018-04-25] MEDS: HEPARIN NA (PORCINE) 5,000 UNITS/ML 1ML VIAL SQ SCH (05:55)
[2018-04-25] MEDS: amLODIPine BESYLATE 5 MG TABLET (FP) GT SCH (09:01)
[2018-04-25] MEDS: LACTOBACILLUS ACIDOPHILUS 1 TABLET GT SCH (09:01)
[2018-04-25] MEDS: MIRTAZAPINE 15 MG TABLET (FP) GT SCH (09:01)
[2018-04-25] MEDS: METOPROLOL TARTRATE 25 MG TABLET (FP) GT SCH (09:01)
--- NOTE | 2018-04-25 09:38 | PN ---
Teaching Attending Note Name of Resident: Marisela Simmons ATTENDING PHYSICIAN STATEMENT I saw and evaluated the patient. I reviewed the resident's note and discussed the case with the resident. I agree with the resident's findings and plan as documented. SUBJECTIVE: Patient is comfortable, no acute distress. OBJECTIVE: Vital Signs Temperature 98.2 F 04/25/18 06:08 Pulse Rate 80 04/25/18 06:08 Respiratory Rate 20 04/25/18 06:08 Blood Pressure 130/88 04/25/18 06:08 O2 Sat by Pulse Oximetry (%) 95 04/24/18 21:00 GENERAL: The patient is awake, alert, and fully oriented, in no acute distress. NECK: Trachea midline, full range of motion, supple. LUNGS: Breath sounds equal, clear to auscultation bilaterally. HEART: Regular rate and rhythm, S1, S2 without murmur, rub or gallop. ABDOMEN: Soft, nontender, nondistended, normoactive bowel sounds. EXTREMITIES: 2+ pulses, warm, well-perfused, no edema. NEUROLOGICAL: Cranial nerves II through XII grossly intact. Normal speech, gait not observed. PSYCH: Normal mood, normal affect. SKIN: Warm, dry, normal turgor, no rashes or lesions noted. CBCD WBC 5.1 K/mm3 (4.0-10.0) 04/24/18 15:00 RBC 2.90 M/mm3 (3.60-5.2) L 04/24/18 15:00 Hgb 9.1 GM/dL (10.7-15.3) L 04/24/18 15:00 Hct 28.1 % (32.4-45.2) L 04/24/18 15:00 MCV 96.8 fl (80-96) H 04/24/18 15:00 MCHC 32.4 g/dl (32.0-36.0) 04/24/18 15:00 RDW 18.0 % (11.6-15.6) H 04/24/18 15:00 Plt Count 183 K/MM3 (134-434) 04/24/18 15:00 MPV 9.0 fl (7.5-11.1) 04/24/18 15:00 CMP Sodium 139 mmol/L (136-145) 04/24/18 15:00 Potassium 4.3 mmol/L (3.5-5.1) 04/24/18 15:00 Chloride 103 mmol/L (98-107) 04/24/18 15:00 Carbon Dioxide 31 mmol/L (21-32) 04/24/18 15:00 Anion Gap 4 MMOL/L (8-16) L 04/24/18 15:00 BUN 22 mg/dL (7-18) H 04/24/18 15:00 Creatinine 3.7 mg/dL (0.55-1.3) H 04/24/18 15:00 Creat Clearance w eGFR 11.85 (>60) 04/24/18 15:00 Random Glucose 94 mg/dL (74-106) 04/24/18 15:00 Calcium 8.5 mg/dL (8.5-10.1) 04/24/18 15:00 Total Bilirubin 0.6 mg/dL (0.2-1) 04/20/18 09:15 AST 38 U/L (15-37) H 04/20/18 09:15 ALT 19 U/L (13-61) 04/20/18 09:15 Alkaline Phosphatase 186 U/L (45-117) H 04/20/18 09:15 Total Protein 7.2 g/dl (6.4-8.2) 04/20/18 09:15 Albumin 1.9 g/dl (3.4-5.0) L 04/20/18 09:15 CARDIAC ENZYMES Creatine Kinase 28 IU/L (26-192) 04/20/18 09:15 Troponin I 0.05 ng/ml (0.00-0.05) 04/20/18 09:15 Current Medications Generic Name Dose Route Start Last Admin Trade Name Freq PRN Reason Stop Dose Admin Albuterol Sulfate 2 puff 04/23/18 13:24 Ventolin Hfa Inhaler - IH Q4H PRN SHORT OF BREATH/WHEEZING Amlodipine Besylate 5 mg 04/21/18 10:00 04/25/18 09:01 Norvasc - GT 5 mg DAILY HARPAL Administration Heparin Sodium (Porcine) 5,000 unit 04/20/18 22:00 04/25/18 05:55 Heparin - SQ 5,000 unit TID HARPAL Administration Lactobacillus Acidophilus 1 tab 04/21/18 10:00 04/25/18 09:01 Bacid - GT 1 tab DAILY [facility] Administration Metoprolol Tartrate 25 mg 04/20/18 22:00 04/25/18 09:01 Lopressor - GT 25 mg BID H[facility]AL Administration Mirtazapine 15 mg 04/21/18 10:00 04/25/18 09:01 Remeron - GT 15 mg DAILY H[facility] Administration Vancomycin HCl 125 mg 04/24/18 10:00 04/24/18 10:10 Vancomycin Oral Solution PO 125 mg Q48H H[facility] Administration Home Medications Medication Instructions Recorded Lactobacillus Acidophilus [Bacid -] 1 each PO DAILY 30 Days #30 tab 04/08/18 Mirtazapine [Remeron -] 15 mg GT DAILY 30 Days #30 tablet 04/08/18 Amlodipine Besylate [Norvasc -] 5 mg PO DAILY 04/20/18 Metoprolol Tartrate [Lopressor -] 25 mg GT BID 04/20/18 Nut.tx.imp.renal Fxn,Lac-Reduc 236 ml PO TID 04/20/18 [Nepro Carb Steady] Vancomycin Oral Solution 125 mg GT Q2D 04/20/18 Miscellaneous Medical Supply 1 each ASDIR #1 misc 04/25/18 [Outpatient Order] ASSESSMENT AND PLAN: Patient is a 77 y/o lady with PMHx of dementia , recurrent C diff, s/p fecal transplant, currently on oral vanco taper, HTN, HLP, DM, ESRD on MWF schedule , s/p failed renal Tx, depression, A fib, GI bleed, who presented for evaluation of HD catheter . # Malfunction of HD cath :changed by IR . functional now. need f/u with Dr. day after dc to assess her fistula. # Acute Diarrhea; resolved post changing the tube feed. all the neccessary prescription for supplies was send [facility]. # Cough, No ct evidence of PNA # HTN: cont home meds norvasc and lopressor # sacral decub: not infected clean wound stage 3, seen by wound care nursepati for one week, follwed by collagen , vit c and zinc ordered. As per Dr. Azevedo , decubitus ulcer no need for antibiotic at this time. # ESRD: on HD continue as per renal # hypoglycemia: continue TF Lives with son, dc patient home.
[2018-04-25 10:36] VITALS: BP 160/89; PULSE 68; TEMP 98.7
[2018-04-25] MEDS ORDERED: COLLAGENASE CLOSTRIDIUM HIST. 30 GRAMS TUBE TP SCH (12:45)
== END 2018-04-25 13:15 | disposition home or self-care (01) | DRG 314 ==
LOC: JER 08:03 → JERBED 16:00 → J6S 04-21 23:26 → OBSVTOIN 04-22 12:27
PROVIDERS: ADMIT Internal Medicine; ATTEND Internal Medicine
PROC: 0J2SXYZ Change Other Device in Head and Neck Subcutaneous Tissue and Fascia, External Approach (ICD-10-PCS; principal; 2018-04-22)
PROC: B518ZZA Fluoroscopy of Superior Vena Cava, Guidance (ICD-10-PCS; 2018-04-22)
PROC: 5A1D70Z Performance of Urinary Filtration, Intermittent, Less than 6 Hours Per Day (ICD-10-PCS; 2018-04-22)
PROC: 5A1D70Z Performance of Urinary Filtration, Intermittent, Less than 6 Hours Per Day (ICD-10-PCS; 2018-04-22)
DX: T82.41XA Breakdown (mechanical) of vascular dialysis catheter, initial encounter (principal); L89.153 Pressure ulcer of sacral region, stage 3; N18.6 End stage renal disease; I12.0 Hypertensive chronic kidney disease with stage 5 chronic kidney disease or end stage renal disease; T86.12 Kidney transplant failure; E46 Unspecified protein-calorie malnutrition; J98.11 Atelectasis; R64 Cachexia; Z68.1 Body mass index [BMI] 19.9 or less, adult; J90 Pleural effusion, not elsewhere classified; Z94.0 Kidney transplant status; E11.22 Type 2 diabetes mellitus with diabetic chronic kidney disease; Z99.2 Dependence on renal dialysis; E78.5 Hyperlipidemia, unspecified; I48.91 Unspecified atrial fibrillation; F32.9 Major depressive disorder, single episode, unspecified; G30.9 Alzheimer's disease, unspecified; F02.80 Dementia in other diseases classified elsewhere, unspecified severity, without behavioral disturbance, psychotic disturbance, mood disturbance, and anxiety; D64.9 Anemia, unspecified; R19.7 Diarrhea, unspecified; R62.7 Adult failure to thrive; I16.0 Hypertensive urgency; E11.649 Type 2 diabetes mellitus with hypoglycemia without coma; L89.222 Pressure ulcer of left hip, stage 2; Y83.8 Other surgical procedures as the cause of abnormal reaction of the patient, or of later complication, without mention of misadventure at the time of the procedure
CPT/HCPCS: 36415; 36581; 71045-TC-FY; 71250-TC; 77001-TC-FY; 80048; 80053; 82550; 82962; 83735; 84100; 84484; 85025; 85027; 85610; 85730; 87040; 93005; 93010; 99284-25; C1751; C1769; G0378; J0885; J1644

== ENCOUNTER 2018-05-17 14:13 | Inpatient (IN) | payer OTHER, BC ==
[2018-05-17] MEDS ORDERED: PANTOPRAZOLE SODIUM 40 MG in SODIUM CHLORIDE 100 ML IVPB ONE (14:35)
--- NOTE | 2018-05-17 14:35 | PDOC ---
Rapid Medical Evaluation Time Seen by Provider: 05/17/18 14:29 Medical Evaluation: Allergies Allergy/AdvReac Type Severity Reaction Status Date / Time No Known Allergies Allergy Verified 04/20/18 08:11 05/17/18 14:30 Pt c/o: Weakness, vomiting, upper abd pain on hd ( last 05/06), has PEG, no diarrhea, no fever Pt on brief exam: vss, lcta, tenderness to epigastric area, peg tube site intact Pt ordered for: labs, urine, cxr, ekg, protonix iv Pt to proceed to the ED Discharge Disposition - Diagnosis Weakness - Referrals - Patient Instructions - Post Discharge Activity
[2018-05-17 14:36] VITALS: BMI 17.6
--- NOTE | 2018-05-17 15:32 | PDOC ---
History of Present Illness - History of Present Illness Initial Comments: 05/17/18 15:23 The patient is a 78 year old female with a PMH of C Diff, HTN, ESRD (on HD T, , Sat s/p failed renal transplant), sacral decub ulcer, GI bleed, AFib (not on A /C), PNA (2017 - with antibiotic associated C Diff) feeding tube presents to the ED c/o 3 day h/o productive cough and subjective dyspnea as well as abdominal pain and one episode of NBNB emesis. Son @ bedside assists with history. States patient first started coughing 3 days ago and then complained of shortness of breath over the last two days. C/o diffuse abdominal pain and one episode of NBNB emesis yesterday. Patient's daughter in law (hospitalist at [facility]) and patient's visiting nurse both advised that patient come to the ED. No fevers/chills, chest pain, palpatations, lightheadedness. Son cannot recall patient's medications but notes she is on outpatient Vancomycin for an extended course of C. Diff. Also notes that patient was born with one kidney and is s/p transplant 7-8 years ago with renal failure and nephrectomy in 2017. NKDA Surgical: renal transplant, nephrectomy Social: lifetime non-smoker, no other toxic habits PMD: [facility] As per EMR, patient evaluated in our ED on 04/20/18 for concern of displaced catheter and acute diarrhea. Tube feeds adjusted and blood cultures negative. <Jaclyn Carpenter - Last Filed: 05/17/18 21:13> <Marifer Esquivel - Last Filed: 05/19/18 07:17> - General Chief Complaint: Nausea/Vomiting Stated Complaint: SICK Time Seen by Provider: 05/17/18 14:29 Past History - Past Medical History Anemia: No Asthma: No Cancer: No Cardiac Disorders: No CVA: No COPD: No CHF: No Dementia: Yes Diabetes: Yes Dialysis: Yes GI Disorders: Yes (hx -diff) Disorders: No HTN: Yes Hypercholesterolemia: Yes Seizures: No Thyroid Disease: No Other medical history: esrd on hd t th and sun - Immunization History Immunization Up to Date: Yes - Suicide/Smoking/Psychosocial Hx Smoking History: Unknown if ever smoked Have you smoked in the past 12 months: No Hx Alcohol Use: No Drug/Substance Use Hx: No Substance Use Type: None Hx Substance Use Treatment: No <Jaclyn Carpenter - Last Filed: 05/17/18 21:13> <Marifer Esquivel - Last Filed: 05/19/18 07:17> - Past Medical History Allergies/Adverse Reactions: Allergies Allergy/AdvReac Type Severity Reaction Status Date / Time No Known Allergies Allergy Verified 05/17/18 14:30 Home Medications: Ambulatory Orders Lactobacillus Acidophilus [Bacid -] 1 each PO DAILY 30 Days #30 tab 04/08/18 Mirtazapine [Remeron -] 15 mg GT DAILY 30 Days #30 tablet 04/08/18 Amlodipine Besylate [Norvasc -] 5 mg PO DAILY 04/20/18 Metoprolol Tartrate [Lopressor -] 25 mg GT BID 04/20/18 Nut.tx.imp.renal Fxn,Lac-Reduc [Nepro Carb Steady] 236 ml PO TID 04/20/18 Vancomycin Oral Solution 125 mg GT Q2D 04/20/18 Ascorbate Calcium [Vitamin C] 500 mg PO DAILY #30 tablet 04/25/18 Collagenase Clostridium Hist. [Santyl] 1 applic TP DAILY #1 applic 04/25/18 Miscellaneous Medical Supply [Outpatient Order] 1 each ASDIR #1 misc Zinc 50 mg PO DAILY #30 tablet 04/25/18 Review of Systems - Review of Systems Constitutional: No: Chills, Fever HEENTM: No: Recent change in vision Respiratory: Yes: Cough, Shortness of Breath, Hemoptysis Cardiac (ROS): Yes: Chest Pain. No: Lightheadedness, Palpitations, Syncope ABD/GI: Yes: Vomiting, Abdominal cramping. No: Constipated, Diarrhea, Nausea : No: Burning, Dysuria <JaydenAbdoul craneica - Last Filed: 05/17/18 21:13> *Physical Exam - Vital Signs Last Vital Signs Temp Pulse Resp BP Pulse Ox 97.9 F 86 22 H 180/92 H 99 05/17/18 14:34 05/17/18 14:34 05/17/18 14:34 05/17/18 14:34 05/17/18 14:34 - Physical Exam General Appearance: Yes: Nourished, Thin HEENT: positive: Normal Voice, Hearing Grossly Normal. negative: Pharyngeal Erythema, TM Bulging, TM Dull, TM Erythema Neck: positive: Trachea midline, Supple Respiratory/Chest: positive: Other (Diffuse wheezes, more pronounced in lower lung wright; anterior chest wall tenderness) Cardiovascular: positive: S1, S2. negative: Edema Vascular Pulses: Dorsalis-Pedis (R): 2+, Doralis-Pedis (L): 2+ Gastrointestinal/Abdominal: positive: Normal Bowel Sounds, Soft, Tenderness ( RUQ TTP on deep palpation - attending exam) Extremity: positive: Normal Capillary Refill, Normal Inspection Integumentary: positive: Normal Color, Dry, Warm, Other (1 cm oval Stage 3 sacral decub ulcer; G tube C/D/I) Neurologic: positive: Fully Oriented, Alert <Jaclyn Carpenter - Last Filed: 05/17/18 21:13> - Vital Signs Last Vital Signs Temp Pulse Resp BP Pulse Ox 97.5 F L 86 18 180/92 H 92 L 05/18/18 20:00 05/18/18 20:00 05/18/18 20:00 05/18/18 20:00 05/18/18 20:32 <Marifer Esquivel - Last Filed: 05/19/18 07:17> Moderate Sedation - Procedure Monitoring Vital Signs: Procedure Monitoring Vital Signs Temperature 97.9 F 05/17/18 14:34 Pulse Rate 86 05/17/18 14:34 Respiratory Rate 22 H 05/17/18 14:34 Blood Pressure 180/92 H 05/17/18 14:34 O2 Sat by Pulse Oximetry (%) 99 05/17/18 14:34 <Jaclyn Carpenter - Last Filed: 05/17/18 21:13> - Procedure Monitoring Vital Signs: Procedure Monitoring Vital Signs Temperature 97.5 F L 05/18/18 20:00 Pulse Rate 86 05/18/18 20:00 Respiratory Rate 18 05/18/18 20:00 Blood Pressure 180/92 H 05/18/18 20:00 O2 Sat by Pulse Oximetry (%) 92 L 05/18/18 20:32 <Marifer Esquivel - Last Filed: 05/19/18 07:17> ED Treatment Course - LABORATORY CBC & Chemistry Diagram: 05/17/18 15:30 05/17/18 16:25 <Jaclyn Carpenter - Last Filed: 05/17/18 21:13> - LABORATORY CBC & Chemistry Diagram: 05/18/18 15:35 05/18/18 05:30 - ADDITIONAL ORDERS Additional order review: 05/17/18 15:30 RBC 3.40 L MCV 97.3 H MCHC 34.9 RDW 20.1 H MPV 9.0 Neutrophils % 64.3 D Lymphocytes % 24.8 Monocytes % 6.2 Eosinophils % 3.3 Basophils % 1.4 - RADIOLOGY Radiology Studies Ordered: Category Date Time Status ABDOMEN US -LIMITED [US] Stat Ultrasound 05/17/18 16:03 Completed - Medications Given in the ED: ED Medications Discontinued Medications Generic Name Dose Route Start Last Admin Trade Name Freq PRN Reason Stop Dose Admin Ceftriaxone Sodium 1,000 mg 05/17/18 19:36 05/17/18 20:16 Rocephin - IVPUSH 05/17/18 19:37 Not Given ONCE ONE Hydralazine HCl 10 mg 05/17/18 21:15 05/17/18 22:49 Apresoline Injection - IVPUSH 05/17/18 21:16 10 mg ONCE ONE Administration Hydralazine HCl 10 mg 05/17/18 23:36 05/18/18 00:41 Apresoline Injection - IVPUSH 05/17/18 23:37 Not Given ONCE ONE Pantoprazole Sodium 40 mg/ 100 mls @ 200 mls/hr 05/17/18 14:35 05/17/18 15:26 Sodium Chloride IVPB 05/17/18 15:04 Not Given ONCE ONE Metronidazole 500 mg in 100 mls @ 100 mls/hr 05/17/18 18:42 05/17/18 19:45 Flagyl 500mg Premixed Ivpb - IVPB 05/17/18 19:41 100 mls/hr ONCE ONE Administration Ceftriaxone Sodium 1 gm/ 50 mls @ 100 mls/hr 05/17/18 20:00 05/17/18 20:16 Dextrose IVPB 05/17/18 20:29 100 mls/hr ONCE ONE Administration Piperacillin Sod/Tazobactam 50 mls @ 100 mls/hr 05/17/18 21:15 05/18/18 16:49 Sod 2.25 gm/ Dextrose IVPB Not Given Q8H-IV HARPAL Protocol Piperacillin Sod/Tazobactam 50 mls @ 100 mls/hr 05/18/18 02:00 05/18/18 03:44 Sod 2.25 gm/ Dextrose IVPB 05/18/18 18:29 100 mls/hr Q8H-IV HARPAL Administration Protocol Doxycycline Hyclate 100 mg/ 100 mls @ 50 mls/hr 05/18/18 02:00 05/18/18 14:00 Dextrose IVPB 50 mls/hr BID HARPAL Administration Meropenem 500 mg/ Dextrose 100 mls @ 200 mls/hr 05/18/18 04:45 05/18/18 16:49 IVPB Not Given Q12H HARPAL Meropenem 500 mg/ Dextrose 100 mls @ 400 mls/hr 05/18/18 07:00 05/18/18 10:00 IVPB 05/18/18 07:14 400 mls/hr ONCE ONE Administration Sodium Chloride 500 ml 05/17/18 16:02 05/17/18 19:06 Normal Saline - IV 05/17/18 16:03 500 ml ONCE ONE Administration Vancomycin HCl 1,000 mg 05/17/18 21:14 05/17/18 22:48 Vancomycin (Pre-Docked) IVPB 05/17/18 21:15 1,000 mg ONCE ONE Administration Protocol <Marifer Esquivel - Last Filed: 05/19/18 07:17> Medical Decision Making - Medical Decision Making 05/17/18 15:48 78 year old female with productive cough, shortness of breath, chest pain. VS remarkable for HTN (180/92) - patient on HD, other VS stable including rectal temp 98.2. Frontal diagnosis: r/o ACS, r/o PE, PNA, Bronchitis, Viral Syndrome , Influenza as well as acute cholecystitis, early appendicitis, gastroenteritis. Will obtain basic labs, D-Dimer, Troponin, CXR, EKG. Will also obtain wound culture for sacral decub ulcer. Reassess. 05/17/18 16:31 No leukocytosis Mildly hyponatremic (131) likely 2/2 to poor nutrition/improper tube feed Cr 2.0 - patient on HD Multiple attempts at IV access with [address] Esquivel in RUE. CXR shows RUQ infiltrate ? 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 Kelly, will admit for cholecystitis tomorrow Hospitalist paged Called patient's son to update on plan of care. Metronizadole 05/17/18 19:31 Repeat BP 195/94 Case d/w hospitalist team - will admit Med/Surg <Jaclyn Carpenter - Last Filed: 05/17/18 21:13> *DC/Admit/Observation/Transfer <Jaclyn Carpenter - Last Filed: 05/17/18 21:13> - Discharge Dispostion Decision to Admit order: Yes <Marifer Esquivel - Last Filed: 05/19/18 07:17> Diagnosis at time of Disposition: Weakness, UTI (urinary tract infection), Cholecystitis, ESRD (end stage renal disease) on dialysis - Discharge Dispostion Condition at time of disposition: Guarded
[2018-05-17 15:59] LABS: URINE APPEARANCE CLOUDY; URINE BILIRUBIN NEGATIVE (<2.0 mg/dL); URINE GLUCOSE (UA) NEGATIVE (NEGATIVE); URINE KETONE NEGATIVE (NEGATIVE); URINE LEUK ESTERASE 3+ (NEGATIVE); URINE NITRITE NEGATIVE (NEGATIVE); URINE PROTEIN 2+ (NEGATIVE); URINE UROBILINOGEN NEGATIVE mg/dL (0.2-1.0)
[2018-05-17 16:01] LABS: URINE COLOR YELLOW
[2018-05-17 16:02] LABS: BASO % 1.4 % (0-2.0); EOS % 3.3 % (0-4.5); HEMOGLOBIN 11.5 GM/dL (10.7-15.3); LYMPH % 24.8 % (8-40); MCHC 34.9 g/dl (32.0-36.0); MEAN CELL VOLUME 97.3 fl (80-96); MONO % 6.2 % (3.8-10.2); NEUT % 64.3 % (42.8-82.8); PLATELET COUNT 278 K/MM3 (134-434); RDW 20.1 % (11.6-15.6); WHITE BLOOD COUNT 5.5 K/mm3 (4.0-10.0)
[2018-05-17] MEDS ORDERED: SODIUM CHLORIDE 0.9% 500 ML INFUS.BAG IV ONE (16:02)
[2018-05-17 16:05] LABS: EPI CELLS RARE /HPF (FEW); URINE BACTERIA FEW /hpf (NONE SEEN); URINE MUCUS RARE
--- NOTE | 2018-05-17 16:06 | PDOC ---
Attending Attestation - Resident Resident Name: Jaclyn Carpenter - ED Attending Attestation I have performed the following: I have examined & evaluated the patient, The case was reviewed & discussed with the resident, I agree w/resident's findings & plan - HPI HPI: 05/17/18 16:26 Ms. Kandi De La Vega is a 78 year old female with past medical history significant for ESRD (on HD //), s/p failed renal transplant, anemia, FTT/malnutrition with PEG tube in place, HTN, HLD, DM, Afib (no AC), prior DVT?, recurrent C- diff s/p fecal transplant, sacral decub ulcer wound and dementia presents to the emergency department with generalized weakness, upper abd/chest pain, vomiting, congestion and coughing up blood/sob x 2-3 days. +coughing up blood streaked sputum and progressive SOB x 2 days, worse today. +RUQ/epigastric pain with intermittent vomiting, last episode last night.. +immobilization, [facility] at home now, [facility]Dr. Winters) Allergies: NKDA Social history: None reported Surgical history: Renal transplant, fecal transplant, and nephrectomy. Tunnel cath for HD. 05/17/18 18:04 - Physicial Exam PE: 05/17/18 16:27 NAD, demented, pleasant. PERRL, EOMI, dry membranes, nl conjunctiva, anicteric; neck supple. right chest wall dialysis tunnel catheter. lungs with right basilar crackles, RRR, +holosystolic murmur, abdomen soft nondistended, +RUQ and epigastric Tenderness. PEG tube in place, nontender, no skin changes or discharge around insertion site. COLLINS x4, no focal neuro deficits. No peripheral edema, no calf tenderness. normal color for ethnicity, WWP. +sacral decub ulcer. - Medical Decision Making 05/17/18 16:29 See HPI for details DDx. ACS, PE, angina, influenza, pneumonia, bronchitis, bronchiectasis, pleural effusion, pleurisy. electrolyte/metabolic derangements, dehydration. cholecystitis, cholelithiasis, biliary colic, pancreatitis, hepatitis, PUD, Gastritis. Vital signs reviewed, wnl. mild tachypnea, normal HR and BP. normal sats on RA Prior notes reviewed, including admissions, discharges and consultations. laboratory results and imaging reviewed, basic labs and lytes wnl, notable for baseline elevated Cr c/w ESRD influenza neg UA_+WBCs, leuk esterase, treating as UTI. CXR_atelectasis vs infiltrate on left; however more symptoms found on right as documented. Cardiac panel_neg trop. EKG normal sinus rhythm, no interval abnormalities, narrow QRS, ST and T wave segments and morphology normal. Nonspecific T wave abnormalities, LV strain pattern, similar to prior EKG ED course: PIV placed by me for access. RUQ sono with biliary sludge, but no stones, borderline diffuse GB wall thickening and overdistension; normal CBD, concerning for Acute cholecystitis, may need HIDA to better differentiate. - right upper and epigastric tenderness noted, correlating with symptoms and US findings. - surgery cs, d/w Dr Kelly, will evaluate and appreciate recs. -covered with IV ceftriaxone/flagyl for cholecystitis, pneumonia/aspiration and GNR/anaerobe coverage. also for UTI. sx and findings more on right side (CXR noted left sided infiltrate?), covered for aspiration pna. - hemoptysis likely infectious, less likely PE given alternative etiology. could also be bisi lala with vomiting episodes and AP. unlikely boarhaave's - gentle IV hydration; pt does not appear septic, no fevers or wbc ct. Admit to Med/Surg for possible acute cesar, infection (UTI, right sided pneumonia) 05/19/18 07:20 05/19/18 07:22 05/19/18 07:24 Heart Score/ECG Review - ECG Impressions Normal ECG: No Comment:: 05/17/18 16:36 EKG normal sinus rhythm, no interval abnormalities, narrow QRS, ST and T wave segments and morphology normal. Nonspecific T wave abnormalities, LV strain pattern, similar to prior EKG
[2018-05-17 17:50] LABS: ALBUMIN 2.1 g/dl (3.4-5.0); ALK PHOS 147 U/L (45-117); ANION GAP 5 MMOL/L (8-16); BILIRUBIN,TOTAL 0.5 mg/dL (0.2-1); BLOOD UREA NITROGEN 21 mg/dL (7-18); CALCIUM 8.3 mg/dL (8.5-10.1); CHLORIDE 96 mmol/L (98-107); CO2 30 mmol/L (21-32); GLUCOSE,RANDOM 78 mg/dL (74-106); POTASSIUM 3.7 mmol/L (3.5-5.1); SGOT/AST 20 U/L (15-37); SGPT/ALT 12 U/L (13-61); SODIUM 131 mmol/L (136-145); TOT PROT 7.9 g/dl (6.4-8.2)
--- NOTE | 2018-05-17 19:37 | PN ---
Teaching Attending Note Name of Resident: Amado Ruiz ATTENDING PHYSICIAN STATEMENT I saw and evaluated the patient. I reviewed the resident's note and discussed the case with the resident. I agree with the resident's findings and plan as documented. SUBJECTIVE: Seen and examined with resident; please see their documentation for further historical info. Briefly, she presents with weakness, vomiting, productive cough (yellow with streaks of dark blood with one episode of red blood), abdominal pain to the ER after HD (last 05/06). She is afebrile and hemodynamically stable on presentation. Unfortunately she is a poor historian; her son was present at the start of our visit for when the ER was obtaining history but unfortunately was gone when I came to assess the patient. She has a complex history and is well-known to the medicine service. She has productive cough, abdominal pain. She is found to have potential L-sided infiltrate on CXR alongside potential cholecystitis on CT/US. Sgy and ID to see. She is hypoxic; BNP pending but she is of course at risk of fluid overload. This is especially true given that she was in hypertensive emergency when she presented to the ER, though this resolved with 10 of IV hydralazine. 10 sys ROS done and negative aside from HPI PMH (Cdif, ESRD on TTS with failed renal transplant 2018, HTN, multiple prolonged admissions to multiple facilities, mitigaing social issues, GI bleed, Afib not on AC, dysphagia, failure to thrive) and PSH (failed renal transplant, nephrectomy) reviewed FH aksed and noncontributory Social hx reviewed; please see previous admissions for futher documentation regarding significant social issues related to discharge on the last admissions. Medications reviewed; reconciliation pending OBJECTIVE: VS, labs, imaging reviewed ( on presentation) Mild distress, resting in bed, following commands, awake and alert Normal HR with no mgr new from last encounter Lungs with scattered crackles near bases, mild, good air movement though, w/ sym exp Mild R-sided tenderness, ND, +BS Could not flip to see decub given staffing; will assess when we can get more nursing given her frail state CN2-12 wnl, no fnd HD cath in place Labs show no white count with mild macrocytosis to 97, hyponatremia to 131 with hypochloremia to 96 and BUN/Cr 21/2.0 (baseline is erratic but appears to be about 3). Bili and AST/ALT unremarkable, lipase cancelled (rechecking; pending ) and albumin is 2.1 with Alk phos 147 (baseline is elevated actually higher than this). UA with 3+ LE and negative nitrate with 98 wbc and rare epithelial cells. Influenza negative CXR shows b/l pleural effusions, R-jugular line, and b/l effusions with basilar changes increasing slightly since the prior study. Atelectatic findings with ? infiltrate on left. shows mild nonspecific gallbladder overdistention with associated borderline wall thickness; recommends HIDA if continued concern. No obvious cholilithiasis no definite obstruction or dilatiation. Multiple pancreatic cysts seen and 2cm is noted containing a .5x.3 nodule; recommended endoscopic evaluation when the patient's condition permits this. Did comment that R- pleural effusion seen ASSESSMENT AND PLAN: This is a chronically ill 78 y/o female well-known to the medicine service presenting for a variety of issues; she is short of breath (with possible infiltrate-would be HAP) with suspected cholecystitis and a positive UA. Cultures are pending. She will be monitored in the ER until bed becomes available. Admitting on the medicine service with surgical consult (discussed with ER), ID consult, Nephrology consult. Furthermore, multiple pancreatic cysts are seen (lipase pending, GI consult pending) She is ill with a guarded condition. 1) Suspected Cholecystitis -No WBC, no fever. No obvious cholelithiasis on imaging with wall thickening. Sgy to see; appreciate their expert opinion. Overall, in this frail women with multiple comorbidities, she has several points of clinical infection evident on labs and imaging and though her WBC count is wnl and she is afebrile, given her risk of decompensation we will at least cover broadly overnight until the specialty services are able to determine the overall course of tx in the AM. Abx will be vancomycin and merrem (at risk for HAP with potential L-sided infiltrate on CXR, she has a +UA and has grown out ESBL+ E. Coli). -Consult ID; appreciate expert opinion -Followup cultures -NPO 2) Acute Hypoxic Respiratory Failure 2/2 HAP, likely fluid overload -PRN O2; treat the underlying suspected PNAs. ABG reviewed; alkalotic with good O2. Continue to monitor; don't overload with O2 as would actually supress her respiratory drive. Check Sputum cx, viral PCR, influenza, and place on incentive spirometry -No WBC or fever; monitor CBC and VS. On broad spectrum abx; ID consult pending. She had CT in March; reluctant to repeat it but may be useful to help further delineate the new L-sided findings read by radiology on CXR. -Fluid removal per nephrology; checking BNP (though she has renal failure the overall trend could be useful) 3) Postiive UA -Previous cultures noted; covered by aforementioned abx. Follow cx's. Could be colonization. She is at risk for resistent organisms and has produced ESBL+ E. Coli in 12/2017. [address] her on meropenem as opposed to zosyn and consult ID. 4) Hypertensive Emergency -BP corrected from >200 SBP after 10mg hydralazine push; ensure proper cuff size (quite small arms) and continue home medications. Monitor on telemetry. 5) Multiple Pancreatic cysts/Nodule -Recomended endoscopic evaluation when permitted; chronically elevated alk phos noted. Nodule noted. Trend CMP and consult GI. Followup lipase. 6) Hyponatremia -Serum/Urine osm and Urine Na pending; followup. Could be from overload. 7) ESRD on HD -Consulting nephrology; she has HD via permacath. She still makes some urine -Monitor BMP, UOP 8) Afib not on AC -Continue home meds; no acute issues 9) Hx GIB -Monitor H/H; noted with #7 10) Hemoptysis -Recent CT noted; could be related to the underlying possible pneumonia or fluid overload. 11) Dysphagia s/p PEG -Consult nutrition; continue home feeds 12) Chronically elevated Alk Phos -Monitor especially given #1 13) Chronically low albumin -Trend, consider nutrition consult and checking prealbumin. 14) Hx CDif -Will elucidate the course of the vancomycin taper she was recently discharged on; ID will be following. Unfortunately the son left before we were able to ask him if she followed up recently with ID and if she had completed the OP taper. Per Dr. Ross's note from last admission regarding the diarrhea: "no recurrence in Hospital but has not been taking her Nepro due t error in order. after discussion with son, her diarhea might be due to the TF and due to the recent out pt abx she was given for + wound cx" -It doesn't appear that stool was retested last admit with the diarrhea. The plan at the time of DC per the notes was to complete the OP taper. We need to elucidate where she is along the course of this taper. 15) Sacral Ulcer -Wound Care consult FENA -PO -PRN replete -Resume home nutrition; consider consut given profound low alb. -As tolerated Code Status unchanged from prior visit
[2018-05-17] MEDS ORDERED: CEFTRIAXONE 1 GM in DEXTROSE 5%-WATER - 50 ML IVPB ONE (20:00)
--- NOTE | 2018-05-17 20:24 | HP ---
CHIEF COMPLAINT: abdominal pain PCP: HISTORY OF PRESENT ILLNESS: Patient is a 78 year old female with history of ESRD on HD , , Sun, s/ p kidney transplant 10/08, diabetes mellitus, hypertension, Afib not on anticoagulation due to GI bleed on prior admission with colonscopy significant for diverticulosis, dementia, presents with complaint of abdominal pain. Patient is unable to give history, and further details obtained from patient's son, who states that patient has been experiencing abdominal pain and generalized weakness for the past two days. He denies inciting factors, provocative, or palliative features. Pain is described as diffuse, intermittent and associated with clear, frothy, billious, non bloody vomitus (two episodes yesterday, and one episode today). Further, he admits cough productive with yellow colored sputum that is brown-tinged. Denies fevers, chills. He denies any changes in her diet (via PEG tube). Endorses last bowel movement was yesterday evening, solid, without melena or hematochezia. Last hemodialysis was 05/16/2018. ER course was notable for: (1) RUQ US shows mild nonspecific gallbladder over-distension with borderline wall thickening. No obvious cholelithiasis, or biliary tract dilation noted. (2) Chest Xray (3) Flagyl 500mg IV, IV NS 500mL Recent Travel: PAST MEDICAL HISTORY: ESRD, diabetes mellitus, hypertension, Afib, diverticulosis PAST SURGICAL HISTORY: renal transplant 09/2017, former AV fistula placement, permacath placement, Social History: Smoking: denies Alcohol: denies Drugs: denies Family History: Allergies No Known Allergies Allergy (Verified 05/17/18 14:30) HOME MEDICATIONS: Home Medications Medication Instructions Recorded Lactobacillus Acidophilus [Bacid -] 1 each PO DAILY 30 Days #30 tab 04/08/18 Mirtazapine [Remeron -] 15 mg GT DAILY 30 Days #30 tablet 04/08/18 Amlodipine Besylate [Norvasc -] 5 mg PO DAILY 04/20/18 Metoprolol Tartrate [Lopressor -] 25 mg GT BID 04/20/18 Nut.tx.imp.renal Fxn,Lac-Reduc 236 ml PO TID 04/20/18 [Nepro Carb Steady] Vancomycin Oral Solution 125 mg GT Q2D 04/20/18 Ascorbate Calcium [Vitamin C] 500 mg PO DAILY #30 tablet 04/25/18 Collagenase Clostridium Hist. 1 applic TP DAILY #1 applic 04/25/18 [Santyl] Miscellaneous Medical Supply 1 each ASDIR #1 misc 04/25/18 [Outpatient Order] Zinc 50 mg PO DAILY #30 tablet 04/25/18 REVIEW OF SYSTEMS As per HPI. Unable to obtain further review of systems due to patient's mental status. PHYSICAL EXAMINATION Vital Signs - 24 hr 05/17/18 05/17/18 05/17/18 14:34 15:26 15:41 Temperature 97.9 F 98.3 F 98.3 F Pulse Rate 86 73 Pulse Rate [ Left Apical] Respiratory 22 H 16 Rate Blood Pressure 180/92 H Blood Pressure [Left Arm] O2 Sat by Pulse 99 96 Oximetry (%) 05/17/18 19:04 Temperature 98.3 F Pulse Rate Pulse Rate [ 76 Left Apical] Respiratory 16 Rate Blood Pressure Blood Pressure 206/93 H [Left Arm] O2 Sat by Pulse 96 Oximetry (%) GENERAL: Awake, alert, and oriented to person and place, in no acute distress. HEAD: Normocephalic, atraumatic EYES: Pupils equal, round and reactive to light, extraocular movements intact b/ l without nystagus. Conjunctiva not injected. EARS, NOSE, THROAT: Oropharynx clear without exudates without lesions. Dry mucous membranes. NECK: Supple without lymphadenopathy, or JVD LUNGS: Good inspiratory effort. Bibasilar crackles auscultated left > right with faint expiratory wheezing bilaterally. Patient is not using accessory muscles of respiration. HEART: Regular rate and rhythm, normal S1 and S2 without murmur, rub or gallop. ABDOMEN: Soft, diffusely tender to deep palpation, most pronounced at right upper quadrants. Normoactive bowel sounds X4 quadrants. No rebound tenderness. No hepatomegaly palpated or percussed. MUSCULOSKELETAL: Thin, emaciated b/l upper and lower extremities. UPPER EXTREMITIES: 2+ radial pulses b/l, warm, well-perfused. LOWER EXTREMITIES: 2+ dorsalis pedis pulses b/l, warm, well-perfused. No pitting edema b/l. NEUROLOGICAL: Cranial nerves II-XII grossly intact. Normal speech. Unable to observe gait as patient is bed-bound. PSYCHIATRIC: Cooperative. Appropriate mood and affect upon my encounter. SKIN: Sacral ulcer approx 2cm x 2cm, bandaged clean, dry, nonerythematous, nondraining. Laboratory Results - last 24 hr 05/17/18 05/17/18 05/17/18 15:04 15:04 15:25 WBC RBC Hgb Hct MCV MCH MCHC RDW Plt Count MPV Absolute Neuts (auto) Neutrophils % Lymphocytes % Monocytes % Eosinophils % Basophils % Nucleated RBC % D-Dimer Sodium Cancelled Potassium Cancelled Chloride Cancelled Carbon Dioxide Cancelled Anion Gap Cancelled BUN Cancelled Creatinine Cancelled Creat Clearance w eGFR Cancelled Random Glucose Cancelled Calcium Cancelled Magnesium Cancelled Total Bilirubin Cancelled AST Cancelled ALT Cancelled Alkaline Phosphatase Cancelled Creatine Kinase Cancelled Troponin I Cancelled Total Protein Cancelled Albumin Cancelled Lipase Cancelled Cancelled Urine Color Urine Appearance Urine pH Ur Specific [place] Urine Protein Urine Glucose (UA) Urine Ketones Urine Blood Urine Nitrite Urine Bilirubin Urine Urobilinogen Ur Leukocyte Esterase Urine WBC (Auto) Urine RBC (Auto) Ur Epithelial Cells Urine Bacteria Urine Mucus Influenza A (Rapid) Negative Influenza B (Rapid) Negative 05/17/18 05/17/18 05/17/18 15:30 15:48 16:13 WBC 5.5 RBC 3.40 L Hgb 11.5 Hct 33.0 D MCV 97.3 H MCH 34.0 H MCHC 34.9 RDW 20.1 H Plt Count 278 D MPV 9.0 Absolute Neuts (auto) 3.5 Neutrophils % 64.3 D Lymphocytes % 24.8 Monocytes % 6.2 Eosinophils % 3.3 Basophils % 1.4 Nucleated RBC % 0 D-Dimer Cancelled Sodium Potassium Chloride Carbon Dioxide Anion Gap BUN Creatinine Creat Clearance w eGFR Random Glucose Calcium Magnesium Total Bilirubin AST ALT Alkaline Phosphatase Creatine Kinase Troponin I Total Protein Albumin Lipase Urine Color Yellow Urine Appearance Cloudy Urine pH 9.0 H D Ur Specific [place] 1.011 Urine Protein 2+ H Urine Glucose (UA) Negative Urine Ketones Negative Urine Blood 2+ H Urine Nitrite Negative Urine Bilirubin Negative Urine Urobilinogen Negative Ur Leukocyte Esterase 3+ H Urine WBC (Auto) 98 Urine RBC (Auto) 4 Ur Epithelial Cells Rare Urine Bacteria Few Urine Mucus Rare Influenza A (Rapid) Influenza B (Rapid) 05/17/18 16:25 WBC RBC Hgb Hct MCV MCH MCHC RDW Plt Count MPV Absolute Neuts (auto) Neutrophils % Lymphocytes % Monocytes % Eosinophils % Basophils % Nucleated RBC % D-Dimer Sodium 131 L Potassium 3.7 Chloride 96 L Carbon Dioxide 30 Anion Gap 5 L BUN 21 H Creatinine 2.0 H Creat Clearance w eGFR 24.03 Random Glucose 78 Calcium 8.3 L Magnesium Total Bilirubin 0.5 AST 20 ALT 12 L Alkaline Phosphatase 147 H Creatine Kinase Troponin I Total Protein 7.9 Albumin 2.1 L Lipase Urine Color Urine Appearance Urine pH Ur Specific [place] Urine Protein Urine Glucose (UA) Urine Ketones Urine Blood Urine Nitrite Urine Bilirubin Urine Urobilinogen Ur Leukocyte Esterase Urine WBC (Auto) Urine RBC (Auto) Ur Epithelial Cells Urine Bacteria Urine Mucus Influenza A (Rapid) Influenza B (Rapid) ASSESSMENT/PLAN: Patient is a 78 year old female with history of ESRD on HD , , Sun, s/ p kidney transplant, diabetes mellitus, hypertension, Afib not on anticoagulation presents with complaint of abdominal pain. Cholecystitis, questionable -Right upper quadrant US shows mild nonspecific gallbladder over-distension with borderline wall thickening. No obvious cholelithiasis, or definite biliary tract dilation noted. -NPO pending surgical evaluation -Surgical consult (Dr. Kelly) Acute hypoxic respiratory failure, secondary to healthcare associated pneumonia -Chest xray shows questionable infiltrate left lung. Patient has been taking oral Vancomycin at home for recurrent C. difficile infection. -F/U ABG -Vancomycin 1000mg IV one time dose -Zosyn 2.25grams IV Q8H renally dosed -Doxycycline 100mg IV BID -Patient is currently on face mask saturating 100% -ID consult Dr. Azevedo Hypertensive Urgency -BP was 206/ 93 in ED -Hydralazine 10mg IV push x1 -BP improved to 157/79 -Follow vital signs closely, manual BP -Continue home Amlodipine, Metoprolol Afib- currently not on anticoagulation -Metoprolol 25mg GT BID for rate control Diabetes mellitus -Fingerstick blood glucose monitoring ACHS -Insulin sliding scale ACHS ESRD on HD , , Sun -Nephrology consult (Dr. Winters) to reinstate hemodialysis while inpatient. -Follow CBC, CMP Sacral decubitus ulcer -Clean, dry, no acute signs of infection -Continue santyl dressing -Wound care consult (Dr. Neri) Hyponatremia -Likely secondary to fluid overload. -Follow urine sodium, creatinine to calculate FeNa -Patient for hemodialysis tomorrow. Dementia -Remeron 15mg GT daily FEN -No IV fluids indicated -follow CMP -NPO pending Disposition -Admit to telemetry floor Visit type - Emergency Visit Emergency Visit: Yes ED Registration Date: 05/17/18 Care time: The patient presented to the Emergency Department on the above date and was hospitalized for further evaluation of their emergent condition. - New Patient This patient is new to me today: No - Critical Care Critical Care patient: No
[2018-05-17] MEDS ORDERED: VANCOMYCIN 1 GM in D5W (PRE-DOCKED) 1,000 MG/250 ML IVPB ONE (21:14)
[2018-05-17] MEDS ORDERED: hydrALAZINE HCL 20 MG/ML VIAL IVPUSH ONE ×2 (21:15→23:36)
[2018-05-17] MEDS ORDERED: PIPERACILLIN/TAZOB 2.25 GM 2.25 GM/50 ML BAG IVPB ONE (22:26)
[2018-05-17] MEDS: PIPERACILLIN/TAZOB 2.25 GM 2.25 GM in DEXTROSE 5%-WATER - 50 ML IVPB SCH (22:49)
[2018-05-17 23:04] LABS: ARTERIAL BLOOD GAS BASE EXCESS 5.9 meq/l (-2-2); ARTERIAL BLOOD GAS PCO2 31.6 mmHg (35-45); ARTERIAL BLOOD GAS pH 7.56 (7.35-7.45)
[2018-05-17 23:07] LABS: ALLENS TEST POSITIVE
[2018-05-18] MEDS ORDERED: hydrALAZINE HCL 20 MG/ML VIAL ONE (00:08)
[2018-05-18] MEDS ORDERED: PIPERACILLIN/TAZOB 2.25 GM 2.25 GM in DEXTROSE 5%-WATER - 50 ML IVPB SCH (02:00)
[2018-05-18] MEDS ORDERED: PIPERACILLIN/TAZOB 2.25 GM 2.25 GM/50 ML BAG IVPB ONE (03:37)
[2018-05-18] MEDS ORDERED: DOXYCYCLINE HYCLATE 100 MG VIAL ONE (04:38)
[2018-05-18] MEDS ORDERED: MEROPENEM 500 MG in DEXTROSE 5%-WATER 100 ML IVPB SCH (04:45)
[2018-05-18] MEDS: DOXYCYCLINE INJECTION 100 MG in DEXTROSE 5%-WATER - 100 ML IVPB SCH ×2 (04:47→14:00)
[2018-05-18 04:53] LABS: LIPASE 275 U/L (73-393); MAGNESIUM 1.8 mg/dL (1.8-2.4)
[2018-05-18 05:54] LABS: HEMATOCRIT 22.6 % (32.4-45.2); MCH 33.7 pg (25.7-33.7); MCHC 35.4 g/dl (32.0-36.0); MEAN CELL VOLUME 95.3 fl (80-96); MEAN PLT VOLUME 8.1 fl (7.5-11.1); PLATELET COUNT 238 K/MM3 (134-434); RBC 2.37 M/mm3 (3.60-5.2); RDW 19.3 % (11.6-15.6); WHITE BLOOD COUNT 5.3 K/mm3 (4.0-10.0)
[2018-05-18 06:36] LABS: INR 1.02 (0.83-1.09)
[2018-05-18 06:39] LABS: ACTIVATED PTT 31.8 SECONDS (25.2-36.5)
[2018-05-18 06:42] LABS: ALBUMIN 2.1 g/dl (3.4-5.0); ALK PHOS 135 U/L (45-117); ANION GAP 7 MMOL/L (8-16); BILIRUBIN,TOTAL 0.8 mg/dL (0.2-1); BLOOD UREA NITROGEN 24 mg/dL (7-18); CHLORIDE 97 mmol/L (98-107); CO2 27 mmol/L (21-32); CREATININE 2.4 mg/dL (0.55-1.3); GLUCOSE,RANDOM 77 mg/dL (74-106); MAGNESIUM 1.9 mg/dL (1.8-2.4); PHOSPHOROUS 2.1 mg/dL (2.5-4.9); POTASSIUM 3.7 mmol/L (3.5-5.1); SGOT/AST 19 U/L (15-37); SGPT/ALT 12 U/L (13-61); SODIUM 132 mmol/L (136-145); TOT PROT 7.9 g/dl (6.4-8.2)
[2018-05-18] MEDS ORDERED: MEROPENEM 500 MG in DEXTROSE 5%-WATER 100 ML IVPB ONE (07:00)
[2018-05-18 08:59] LABS: LIPASE 105 U/L (73-393)
--- NOTE | 2018-05-18 09:20 | PN ---
Physical Exam: SUBJECTIVE: Patient seen and examined. She is confused. She denies pain. OBJECTIVE: Vital Signs Period Temp Pulse Resp BP Sys/Franco Pulse Ox Last 24 Hr 97.9 F-98.3 F 73-86 16-22 131-206/49-93 96-100 GENERAL: The patient is awake, alert, confused, coughing. LUNGS: Breath sounds equal, bibasilar crackles, no accessory muscle use. HEART: Regular rate and rhythm, S1, S2 without murmur, rub or gallop. ABDOMEN: Soft, nontender, nondistended, normoactive bowel sounds, no guarding, no rebound, no hepatosplenomegaly, no masses. EXTREMITIES: 2+ pulses, warm, well-perfused, no edema. Laboratory Results - last 24 hr 05/17/18 05/17/18 05/17/18 15:04 15:04 15:25 WBC RBC Hgb Hct MCV MCH MCHC RDW Plt Count MPV Absolute Neuts (auto) Neutrophils % Lymphocytes % Monocytes % Eosinophils % Basophils % Nucleated RBC % PT with INR INR PTT (Actin FS) D-Dimer Anticoagulation Therapy Puncture Site ABG pH ABG pCO2 at Pt Temp ABG pO2 at Pt Temp ABG HCO3 ABG O2 Sat (Measured) ABG O2 Content ABG Base Excess Suresh Test O2 Delivery Device Oxygen Flow Rate Vent Mode Vent Rate Mechanical Rate Pressure Support Vent Sodium Cancelled Potassium Cancelled Chloride Cancelled Carbon Dioxide Cancelled Anion Gap Cancelled BUN Cancelled Creatinine Cancelled Creat Clearance w eGFR Cancelled Random Glucose Cancelled Calcium Cancelled Phosphorus Magnesium Cancelled Total Bilirubin Cancelled AST Cancelled ALT Cancelled Alkaline Phosphatase Cancelled Creatine Kinase Cancelled Troponin I Cancelled Total Protein Cancelled Albumin Cancelled Lipase Cancelled Cancelled Urine Color Urine Appearance Urine pH Ur Specific [place] Urine Protein Urine Glucose (UA) Urine Ketones Urine Blood Urine Nitrite Urine Bilirubin Urine Urobilinogen Ur Leukocyte Esterase Urine WBC (Auto) Urine RBC (Auto) Ur Epithelial Cells Urine Bacteria Urine Mucus Influenza A (Rapid) Negative Influenza B (Rapid) Negative Blood Type Antibody Screen 05/17/18 05/17/18 05/17/18 15:30 15:48 16:13 WBC 5.5 RBC 3.40 L Hgb 11.5 Hct 33.0 D MCV 97.3 H MCH 34.0 H MCHC 34.9 RDW 20.1 H Plt Count 278 D MPV 9.0 Absolute Neuts (auto) 3.5 Neutrophils % 64.3 D Lymphocytes % 24.8 Monocytes % 6.2 Eosinophils % 3.3 Basophils % 1.4 Nucleated RBC % 0 PT with INR INR PTT (Actin FS) D-Dimer Cancelled Anticoagulation Therapy Puncture Site ABG pH ABG pCO2 at Pt Temp ABG pO2 at Pt Temp ABG HCO3 ABG O2 Sat (Measured) ABG O2 Content ABG Base Excess Suresh Test O2 Delivery Device Oxygen Flow Rate Vent Mode Vent Rate Mechanical Rate Pressure Support Vent Sodium Potassium Chloride Carbon Dioxide Anion Gap BUN Creatinine Creat Clearance w eGFR Random Glucose Calcium Phosphorus Magnesium Total Bilirubin AST ALT Alkaline Phosphatase Creatine Kinase Troponin I Total Protein Albumin Lipase Urine Color Yellow Urine Appearance Cloudy Urine pH 9.0 H D Ur Specific [place] 1.011 Urine Protein 2+ H Urine Glucose (UA) Negative Urine Ketones Negative Urine Blood 2+ H Urine Nitrite Negative Urine Bilirubin Negative Urine Urobilinogen Negative Ur Leukocyte Esterase 3+ H Urine WBC (Auto) 98 Urine RBC (Auto) 4 Ur Epithelial Cells Rare Urine Bacteria Few Urine Mucus Rare Influenza A (Rapid) Influenza B (Rapid) Blood Type Antibody Screen 05/17/18 05/17/18 05/18/18 16:25 22:52 05:30 WBC 5.3 RBC 2.37 L Hgb 8.0 L Hct 22.6 L D MCV 95.3 MCH 33.7 MCHC 35.4 RDW 19.3 H Plt Count 238 MPV 8.1 Absolute Neuts (auto) Neutrophils % Lymphocytes % Monocytes % Eosinophils % Basophils % Nucleated RBC % PT with INR INR PTT (Actin FS) D-Dimer Anticoagulation Therapy No Result Required. Puncture Site Left brachial ABG pH 7.56 H ABG pCO2 at Pt Temp 31.6 L ABG pO2 at Pt Temp 188.0 H* ABG HCO3 28.3 H ABG O2 Sat (Measured) 100.0 H* ABG O2 Content 10.7 L ABG Base Excess 5.9 H Suresh Test Positive O2 Delivery Device Non- breather Oxygen Flow Rate 100% Vent Mode No Result Required. Vent Rate No Result Required. Mechanical Rate No Result Required. Pressure Support Vent No Result Required. Sodium 131 L Potassium 3.7 Chloride 96 L Carbon Dioxide 30 Anion Gap 5 L BUN 21 H Creatinine 2.0 H Creat Clearance w eGFR 24.03 Random Glucose 78 Calcium 8.3 L Phosphorus Magnesium 1.8 Total Bilirubin 0.5 AST 20 ALT 12 L Alkaline Phosphatase 147 H Creatine Kinase 32 Troponin I 0.06 H Total Protein 7.9 Albumin 2.1 L Lipase 275 Urine Color Urine Appearance Urine pH Ur Specific [place] Urine Protein Urine Glucose (UA) Urine Ketones Urine Blood Urine Nitrite Urine Bilirubin Urine Urobilinogen Ur Leukocyte Esterase Urine WBC (Auto) Urine RBC (Auto) Ur Epithelial Cells Urine Bacteria Urine Mucus Influenza A (Rapid) Influenza B (Rapid) Blood Type Antibody Screen 05/18/18 05/18/18 05/18/18 05:30 05:30 05:30 WBC RBC Hgb Hct MCV MCH MCHC RDW Plt Count MPV Absolute Neuts (auto) Neutrophils % Lymphocytes % Monocytes % Eosinophils % Basophils % Nucleated RBC % PT with INR 12.00 INR 1.02 PTT (Actin FS) 31.8 D-Dimer Anticoagulation Therapy Puncture Site ABG pH ABG pCO2 at Pt Temp ABG pO2 at Pt Temp ABG HCO3 ABG O2 Sat (Measured) ABG O2 Content ABG Base Excess Suresh Test O2 Delivery Device Oxygen Flow Rate Vent Mode Vent Rate Mechanical Rate Pressure Support Vent Sodium 132 L Potassium 3.7 Chloride 97 L Carbon Dioxide 27 Anion Gap 7 L BUN 24 H Creatinine 2.4 H Creat Clearance w eGFR 19.47 Random Glucose 77 Calcium 8.0 L Phosphorus 2.1 L Magnesium 1.9 Total Bilirubin 0.8 AST 19 ALT 12 L Alkaline Phosphatase 135 H Creatine Kinase Troponin I Total Protein 7.9 Albumin 2.1 L Lipase 105 Urine Color Urine Appearance Urine pH Ur Specific [place] Urine Protein Urine Glucose (UA) Urine Ketones Urine Blood Urine Nitrite Urine Bilirubin Urine Urobilinogen Ur Leukocyte Esterase Urine WBC (Auto) Urine RBC (Auto) Ur Epithelial Cells Urine Bacteria Urine Mucus Influenza A (Rapid) Influenza B (Rapid) Blood Type O POSITIVE Antibody Screen Positive Active Medications Generic Name Dose Route Start Last Admin Trade Name Freq PRN Reason Stop Dose Admin Amlodipine Besylate 5 mg 05/18/18 10:00 Norvasc - PO DAILY HARPAL Collagenase 1 applic 05/18/18 10:00 Santyl - TP DAILY HARPAL Protocol Piperacillin Sod/Tazobactam 50 mls @ 100 mls/hr 05/17/18 21:15 05/17/18 22:49 Sod 2.25 gm/ Dextrose IVPB 100 mls/hr Q8H-IV HARPAL Administration Protocol Doxycycline Hyclate 100 mg/ 100 mls @ 50 mls/hr 05/18/18 02:00 05/18/18 04:47 Dextrose IVPB 50 mls/hr BID HARPAL Administration Meropenem 500 mg/ Dextrose 100 mls @ 200 mls/hr 05/18/18 04:45 IVPB Q12H HARPAL Lactobacillus Acidophilus 1 tab 05/18/18 10:00 Bacid - PO DAILY HARPAL Metoprolol Tartrate 25 mg 05/18/18 10:00 Lopressor - GT BID HARPAL Mirtazapine 15 mg 05/18/18 22:00 Remeron - GT HS HARPAL ASSESSMENT/PLAN: This is a 77 year old woman with a history of ESRD, failed kidney transplant, fecal transplant for C. difficile colitis, dementia, depression, HTN, type 2 DM , atrial fib, diverticular bleed who presented to the ED with abdominal pain. 1. Acute hypoxic respiratory failure secondary to healthcare associated pneumonia, possible aspiration pneumonia - Zosyn, Vancomycin given x 1 in ED - Discontinue doxycycline - Zosyn, Merrem ordered - awaiting ID evaluation - Oxygen to maintain saturation >90% 2. Possible acute cholecystitis - Awaiting surgery evaluation 3. Hypertensive urgency - BP improved - Continue Norvasc, Lopressor 4. Stage 4 sacral pressure ulcer - Continue local wound care with Santyl 5. Severe protein calorie malnutrition - Has PEG - feedings on hold until evaluated by surgery 6. Hyponatremia - Possibly secondary to fluid overload - Monitor electrolytes 7. Dementia with depression - Continue Remeron 8. History of C. difficile colitis - History fecal transplant - Completed course of Vancomycin 9. Anemia - Continue Epogen 10. ESRD - History of failed renal transplant - Nephrology consult for HD 11. HTN - Continue Lopressor, Norvasc 12. History of atrial fib - Currently in sinus rhythm - Continue Lopressor - Not on anticoagulation secondary to history GI bleed 13. Type 2 DM - Fingersticks with Novolog sliding scale Visit type - Emergency Visit Emergency Visit: Yes ED Registration Date: 05/17/18 Care time: The patient presented to the Emergency Department on the above date and was hospitalized for further evaluation of their emergent condition. - New Patient This patient is new to me today: Yes Date on this admission: 05/18/18 - Critical Care Critical Care patient: No - Discharge Referral Referred to [facility] Med [facility] No
[2018-05-18] MEDS: LACTOBACILLUS ACIDOPHILUS 1 TABLET PO SCH (10:00)
[2018-05-18] MEDS: METOPROLOL TARTRATE 25 MG TABLET (FP) GT SCH ×2 (10:00→23:53)
[2018-05-18] MEDS: amLODIPine BESYLATE 5 MG TABLET (FP) PO SCH (12:00)
[2018-05-18] MEDS: INSULIN SLIDING SCALE (NOVOLOG) 1 VIAL SQ SCH ×2 (12:30→17:44)
--- NOTE | 2018-05-18 13:15 | EKG ---
Test Reason : Blood Pressure : / mmHG Vent. Rate : 073 BPM Atrial Rate : 073 BPM P-R Int : 180 ms QRS Dur : 104 ms QT Int : 432 ms P-R-T Axes : 061 068 056 degrees QTc Int : 475 ms NORMAL SINUS RHYTHM NON-SPECIFIC INTRA-VENTRICULAR CONDUCTION DELAY CANNOT RULE OUT ANTERIOR INFARCT , AGE UNDETERMINED Confirmed by BARBI LANG MD ([id number]) on 05/18/2018 1:15:42 PM Referred By: Confirmed By:BARBI LANG MD
--- NOTE | 2018-05-18 13:20 | CON.NEP ---
Consult Consult Specialty:: nephrology - History of Present Illness Chief Complaint: abd pain History of Present Illness: Patient is a 78 year old female with history of ESRD on HD , , Sat, s/ p kidney transplant 10/08, diabetes mellitus, hypertension, Afib not on anticoagulation due to GI bleed on prior admission with colonscopy significant for diverticulosis, dementia, presents with complaint of abdominal pain. She is confused, smiling, saying there are things in front of her that are hers. States that she has back pain due to an ulceration. - History Source History Provided By: Patient, Medical Record Limitations to Obtaining History: Dementia - Past Medical History [employer]: Yes: Alzheimer's Cardio/Vascular: Yes: HTN, Hyperlipdemia Gastrointestinal: Yes: Other (recurrent c diff. s/p fecal transplant) Renal/: Yes: Renal Failure, Renal Inusuff, Hemodialysis, Other (failed renal transplant) Infectious Disease: Yes: C-Diff, Other (ecoli esbl wound infection) Endocrine: Yes: Diabetes Mellitus - Past Surgical History Past Surgical History: Yes: Kidney Transplant - Alcohol/Substance Use Hx Alcohol Use: No History of Substance Use: reports: None - Smoking History Smoking history: Unknown if ever smoked Have you smoked in the past 12 months: No - Social History Usual Living Arrangement: With Significant Other ADL: Family Assistance History of Recent Travel: No Home Medications - Allergies Allergies/Adverse Reactions: Allergies Allergy/AdvReac Type Severity Reaction Status Date / Time No Known Allergies Allergy Verified 05/17/18 14:30 - Home Medications Home Medications: Ambulatory Orders Lactobacillus Acidophilus [Bacid -] 1 each PO DAILY 30 Days #30 tab 04/08/18 Mirtazapine [Remeron -] 15 mg GT DAILY 30 Days #30 tablet 04/08/18 Amlodipine Besylate [Norvasc -] 5 mg PO DAILY 04/20/18 Metoprolol Tartrate [Lopressor -] 25 mg GT BID 04/20/18 Nut.tx.imp.renal Fxn,Lac-Reduc [Nepro Carb Steady] 236 ml PO TID 04/20/18 Vancomycin Oral Solution 125 mg GT Q2D 04/20/18 Ascorbate Calcium [Vitamin C] 500 mg PO DAILY #30 tablet 04/25/18 Collagenase Clostridium Hist. [Santyl] 1 applic TP DAILY #1 applic 04/25/18 Miscellaneous Medical Supply [Outpatient Order] 1 each ASDIR #1 misc Zinc 50 mg PO DAILY #30 tablet 04/25/18 Review of Systems - Review of Systems Constitutional: reports: Loss of Appetite Eyes: reports: No Symptoms HENT: reports: No Symptoms Neck: reports: No Symptoms Cardiovascular: reports: No Symptoms Respiratory: reports: Cough, Wheezing Gastrointestinal: reports: Abdominal Pain Genitourinary: reports: No Symptoms Breasts: reports: No Symptoms Reported Musculoskeletal: reports: Back Pain Integumentary: reports: No Symptoms Neurological: reports: No Symptoms Endocrine: reports: No Symptoms Hematology/Lymphatic: reports: No Symptoms Nephrology Consult - Height Height: 5 ft 3 in - Weight Weight: 100 lb - BMI Body Mass Index (BMI): 17.6 - Lab Results CBC,BMP: CBC, BMP 05/18/18 05:30 05/18/18 05:30 Anion Gap: Anion Gap Anion Gap 7 MMOL/L (8-16) L 05/18/18 05:30 - Imaging Chest X-ray: Report Reviewed Ultrasound: Report Reviewed - Physical Examination Vital Signs: Vital Signs Temperature 97.2 F L 05/18/18 10:33 Pulse Rate 81 05/18/18 10:33 Respiratory Rate 22 H 05/18/18 10:33 Blood Pressure 184/85 H 05/18/18 10:33 O2 Sat by Pulse Oximetry (%) 97 05/18/18 10:33 Constitutional: Yes: No Distress, Calm, Thin Eyes: Yes: Conjunctiva Clear HENT: Yes: Atraumatic, Normocephalic Neck: Yes: Supple, Trachea Midline Cardiovascular: Yes: Regular Rate and Rhythm Respiratory: Yes: Rhonchi, Wheezes Gastrointestinal: Yes: Normal Bowel Sounds Renal/: Yes: WNL Access for Hemodialysis: Permacath Musculoskeletal: Yes: WNL Extremities: Yes: WNL Edema: No Wound/Incision: Yes: Well Approximated Neurological: Yes: Alert, Confusion Psychiatric: Yes: Alert Assessment/Plan IMPRESSION CKD requiring hd s/p failed kidney transplant Cdiff on chronic vanco htn uncontrolled anemia worsening- unclear if from blood loss that is unrecognized PLAN will order hd for today repeat cbc and transfuse if necessary surgery to see patient no heparin MV
--- NOTE | 2018-05-18 15:20 | CONSULT ---
- Consultation REQUESTING PROVIDER: Marifer Esquivel MD CONSULT REQUEST: We have been asked to surgically evaluate this patient for possible cholecystitis. PCP:Oumar West MD HISTORY OF PRESENT ILLNESS: ? abdominal pain and cough and fever; patient is being admitted to the medical service; I last saw her 01/16/18; she has # comorbidities; she has PEG; she is bed bound and is on HD for ESRD after a failed renal transplant; she was at [facility] last year for > 100 dyas; she has no c/ o to me; I spoke w/her son as well. PMHx: ESRD/HTN PSHx: renal transplanr, PEG other unknown Home Medications Medication Instructions Recorded Lactobacillus Acidophilus [Bacid -] 1 each PO DAILY 30 Days #30 tab 04/08/18 Mirtazapine [Remeron -] 15 mg GT DAILY 30 Days #30 tablet 04/08/18 Amlodipine Besylate [Norvasc -] 5 mg PO DAILY 04/20/18 Metoprolol Tartrate [Lopressor -] 25 mg GT BID 04/20/18 Nut.tx.imp.renal Fxn,Lac-Reduc 236 ml PO TID 04/20/18 [Nepro Carb Steady] Vancomycin Oral Solution 125 mg GT Q2D 04/20/18 Ascorbate Calcium [Vitamin C] 500 mg PO DAILY #30 tablet 04/25/18 Collagenase Clostridium Hist. 1 applic TP DAILY #1 applic 04/25/18 [Santyl] Miscellaneous Medical Supply 1 each ASDIR #1 misc 04/25/18 [Outpatient Order] Zinc 50 mg PO DAILY #30 tablet 04/25/18 Allergies Allergy/AdvReac Type Severity Reaction Status Date / Time No Known Allergies Allergy Verified 05/17/18 14:30 PHYSICAL EXAM: GENERAL: Awake, alert, and fully oriented, in no acute distress. HEAD: Normal with no signs of trauma. EYES: sclera anicteric, conjunctiva clear. NECK: Normal ROM, supple without lymphadenopathy, JVD, or masses. ABDOMEN: Soft, ? slight RUQ tenderness, not distended, normoactive bowel sounds , slight guarding, no rebound, no masses. No organomegaly. No hernias; midline PEG MUSCULOSKELETAL: Normal ROM at all joints. No bony deformities or tenderness. No CVA tenderness. UPPER EXTREMITIES: 2+ pulses, warm, well-perfused. No cyanosis. Cap refill <2 seconds. No peripheral edema. LOWER EXTREMITIES: 2+ pulses, warm, well-perfused. No calf tenderness. No peripheral edema. NEUROLOGICAL: Normal speech, gait not observed. PSYCH: Cooperative. Good eye contact. Appropriate mood and affect. SKIN: Warm, dry, normal turgor, no rashes or lesions noted. Vital Signs Temperature 97.2 F L 05/18/18 10:33 Pulse Rate 81 05/18/18 10:33 Respiratory Rate 22 H 05/18/18 10:33 Blood Pressure 184/85 H 05/18/18 10:33 O2 Sat by Pulse Oximetry (%) 97 05/18/18 10:33 Lab Results WBC 5.3 K/mm3 (4.0-10.0) 05/18/18 05:30 RBC 2.37 M/mm3 (3.60-5.2) L 05/18/18 05:30 Hgb 8.0 GM/dL (10.7-15.3) L 05/18/18 05:30 Hct 22.6 % (32.4-45.2) L D 05/18/18 05:30 MCV 95.3 fl (80-96) 05/18/18 05:30 MCHC 35.4 g/dl (32.0-36.0) 05/18/18 05:30 RDW 19.3 % (11.6-15.6) H 05/18/18 05:30 Plt Count 238 K/MM3 (134-434) 05/18/18 05:30 Sodium 132 mmol/L (136-145) L 05/18/18 05:30 Potassium 3.7 mmol/L (3.5-5.1) 05/18/18 05:30 Chloride 97 mmol/L (98-107) L 05/18/18 05:30 Carbon Dioxide 27 mmol/L (21-32) 05/18/18 05:30 Anion Gap 7 MMOL/L (8-16) L 05/18/18 05:30 BUN 24 mg/dL (7-18) H 05/18/18 05:30 Creatinine 2.4 mg/dL (0.55-1.3) H 05/18/18 05:30 Random Glucose 77 mg/dL (74-106) 05/18/18 05:30 Calcium 8.0 mg/dL (8.5-10.1) L 05/18/18 05:30 Blood Type O POSITIVE 05/18/18 05:30 Antibody Screen Positive 05/18/18 05:30 INR 1.02 (0.83-1.09) 05/18/18 05:30 US-sludge in the gallbladder IMP: sludge filled gallbladder PLAN:Suggest trial of clear liquids; IVABS and IVF; sheisnot a candidate for lap cesar which is not even indicated at this time h/e if needed suggest percutaneous cholecystostomy. Joaquin Kelly MD FACS
[2018-05-18 16:21] LABS: HEMOGLOBIN 7.8 GM/dL (10.7-15.3); MCH 33.8 pg (25.7-33.7); MCHC 35.5 g/dl (32.0-36.0); MEAN CELL VOLUME 95.1 fl (80-96); MEAN PLT VOLUME 8.7 fl (7.5-11.1); PLATELET COUNT 230 K/MM3 (134-434); RBC 2.31 M/mm3 (3.60-5.2); RDW 19.6 % (11.6-15.6)
--- NOTE | 2018-05-18 16:36 | PN ---
Progress Note (short form) - Note Progress Note: ID CONSULT DICTATED R/O CHOLECYSTITIS R/O PNEUMONIA ESRD HX C DIFFICILE COLITIS AWAIT C/S EMPIRIC CEFTRIAXONE/FLAGYL
[2018-05-18] MEDS: PIPERACILLIN/TAZOB 2.25 GM 2.25 GM in DEXTROSE 5%-WATER - 50 ML IVPB SCH (16:49)
[2018-05-18 17:00] LABS: N-TERMINAL BNP 166255.2 pg/ml (5-450)
[2018-05-18] MEDS ORDERED: SODIUM CHLORIDE 250 ML IV PRN (17:19)
--- NOTE | 2018-05-18 18:37 | CONS ---
DATE OF CONSULTATION: DATE OF DICTATION: 05/18/2018 HISTORY OF PRESENT ILLNESS: The patient is a 78-year-old female evaluated for possible sepsis. Her history is obtained from the chart as well as from the patient's son, who was present at the time of the examination. The patient was admitted to the hospital on May 17, 2018 with a several-day history of worsening generalized weakness, cough, dyspnea and abdominal pain. The patient was noted to have a cough productive of blood-streaked sputum. She was also noted to be dyspneic. The patient had complained of upper abdominal pain and was noted to have nonbloody, nonbilious vomiting. She presented to the emergency room where a rapid flu test was negative. A chest x-ray showed possible infiltrate. An ultrasound of the abdomen showed a distended gallbladder. There was no obvious cholelithiasis and no biliary tract dilation. According to the chart, the patient has had a recent history of Clostridium difficile colitis and was on a prolonged course of vancomycin through a feeding tube. PAST MEDICAL HISTORY: Positive for end-stage renal disease, recent C. difficile colitis, hypertension, sacral decubitus ulcer, gastrointestinal bleeding, atrial fibrillation. PAST SURGICAL HISTORY: Status post feeding gastrostomy, history of failed renal transplant. ALLERGIES: No known drug allergies. MEDICATIONS: Amlodipine, hydralazine, insulin, metoprolol, Remeron. SOCIAL HISTORY: She was living in a jail facility. However, according to the notes, she is now living at home. Nonsmoker, nondrinker. REVIEW OF SYSTEMS: Neurologic: No loss of consciousness, seizure or focal weakness. Cardiac: Negative for chest pain or palpitations. Respiratory: As per HPI. Gastrointestinal: As per HPI. Genitourinary: End-stage renal disease on hemodialysis. LABORATORY DATA: White count 5.3, hematocrit 22.6, platelet count 238, creatinine 2.4, total bilirubin 0.8, alkaline phosphatase 135, AST 19. Cultures are pending. A urinalysis showed 98 white cells. PHYSICAL EXAMINATION: General: The patient is awake. She is receiving hemodialysis. She is in no acute distress. Vital Signs: Temperature 97.5, pulse 75 and regular, blood pressure 179/96, respiratory rate 18 per minute. HEENT:: Sclerae anicteric. Heart: Heart sounds S1, S2. Lungs: Clear bilaterally. No wheezes, rales or rhonchi. Abdomen: Soft. No tenderness elicited. Extremities: Negative for edema. There is a sacral decubitus ulcer present. No drainage noted. IMPRESSION: 1. Rule out cholecystitis. 2. Rule out pneumonia. 3. End-stage renal disease on hemodialysis. 4. History of Clostridium difficile colitis. PLAN: 1. Await sepsis workup. Empiric antibiotic coverage of lung and biliary tract pathogens with ceftriaxone and Flagyl. 2. Monitor for recurrent diarrhea. The patient and her son deny any diarrhea at this time. BARBI ALCALA M.D. [id number]
[2018-05-18] MEDS: COLLAGENASE CLOSTRIDIUM HIST. 30 GRAMS TUBE TP SCH (19:10)
[2018-05-18] MEDS: MIRTAZAPINE 15 MG TABLET (FP) GT SCH (23:53)
[2018-05-19] MEDS: INSULIN SLIDING SCALE (NOVOLOG) 1 VIAL SQ SCH ×5 (07:19→23:02)
[2018-05-19 07:58] LABS: ANION GAP 7 MMOL/L (8-16); BLOOD UREA NITROGEN 11 mg/dL (7-18); CALCIUM 8.4 mg/dL (8.5-10.1); CHLORIDE 99 mmol/L (98-107); CO2 30 mmol/L (21-32); CREATININE 1.7 mg/dL (0.55-1.3); GLUCOSE,RANDOM 72 mg/dL (74-106); POTASSIUM 3.2 mmol/L (3.5-5.1); SODIUM 136 mmol/L (136-145)
[2018-05-19 08:15] LABS: BASO % 1.5 % (0-2.0); EOS % 6.2 % (0-4.5); HEMATOCRIT 23.6 % (32.4-45.2); HEMOGLOBIN 8.3 GM/dL (10.7-15.3); LYMPH % 20.3 % (8-40); MCH 33.7 pg (25.7-33.7); MEAN CELL VOLUME 96.1 fl (80-96); MEAN PLT VOLUME 8.7 fl (7.5-11.1); MONO % 7.6 % (3.8-10.2); NEUT % 64.4 % (42.8-82.8); PLATELET COUNT 230 K/MM3 (134-434); RBC 2.46 M/mm3 (3.60-5.2); WHITE BLOOD COUNT 4.6 K/mm3 (4.0-10.0)
--- NOTE | 2018-05-19 09:04 | PN ---
Physical Exam: SUBJECTIVE: Patient seen and examined. No acute events overnight. Offers no complaints. OBJECTIVE: Vital Signs Period Temp Pulse Resp BP Sys/Franco Pulse Ox Last 24 Hr 97.2 F-97.9 F 75-86 18-22 167-194/85-108 90-97 GENERAL: confused, frail appearing EYES:conjunctiva clear. ENT: moist mucous membranes. NECK: supple. LUNGS: cta b/l, no wheezing, rales HEART: RRR, no murmurs appreciated ABDOMEN: Soft, nondistended, RUQ tenderness to palpation. no guarding. +Peg EXTREMITIES: 2+ pulses, warm, well-perfused, no edema. Laboratory Results - last 24 hr 05/18/18 05/18/18 05/18/18 05:30 05:30 09:10 WBC RBC Hgb Hct MCV MCH MCHC RDW Plt Count MPV Absolute Neuts (auto) Neutrophils % Lymphocytes % Monocytes % Eosinophils % Basophils % Nucleated RBC % Sodium 132 L Potassium 3.7 Chloride 97 L Carbon Dioxide 27 Anion Gap 7 L BUN 24 H Creatinine 2.4 H Creat Clearance w eGFR 19.47 POC Glucometer Random Glucose 77 Lactic Acid 1.1 Calcium 8.0 L Phosphorus 2.1 L Magnesium 1.9 Total Bilirubin 0.8 AST 19 ALT 12 L Alkaline Phosphatase 135 H Creatine Kinase Troponin I 0.06 H B-Natriuretic Peptide Total Protein 7.9 Albumin 2.1 L Lipase 105 Antibody Identification Lc Antigen Identification c Antigen - NEGATIVE 05/18/18 05/18/18 05/18/18 14:18 15:35 15:35 WBC 7.0 RBC 2.31 L Hgb 7.8 L Hct 22.0 L MCV 95.1 MCH 33.8 H MCHC 35.5 RDW 19.6 H Plt Count 230 MPV 8.7 Absolute Neuts (auto) Neutrophils % Lymphocytes % Monocytes % Eosinophils % Basophils % Nucleated RBC % Sodium Potassium Chloride Carbon Dioxide Anion Gap BUN Creatinine Creat Clearance w eGFR POC Glucometer 103.43704 Random Glucose Lactic Acid Calcium Phosphorus Magnesium Total Bilirubin AST ALT Alkaline Phosphatase Creatine Kinase 42 Troponin I 0.08 H B-Natriuretic Peptide 717251.2 H Total Protein Albumin Lipase Antibody Identification Antigen Identification 05/18/18 05/18/18 05/19/18 17:44 23:55 07:00 WBC 4.6 RBC 2.46 L Hgb 8.3 L Hct 23.6 L MCV 96.1 H MCH 33.7 MCHC 35.0 RDW 20.0 H Plt Count 230 MPV 8.7 Absolute Neuts (auto) 2.9 Neutrophils % 64.4 Lymphocytes % 20.3 Monocytes % 7.6 Eosinophils % 6.2 H D Basophils % 1.5 Nucleated RBC % 0 Sodium Potassium Chloride Carbon Dioxide Anion Gap BUN Creatinine Creat Clearance w eGFR POC Glucometer 118 83 Random Glucose Lactic Acid Calcium Phosphorus Magnesium Total Bilirubin AST ALT Alkaline Phosphatase Creatine Kinase Troponin I B-Natriuretic Peptide Total Protein Albumin Lipase Antibody Identification Antigen Identification 05/19/18 07:00 WBC RBC Hgb Hct MCV MCH MCHC RDW Plt Count MPV Absolute Neuts (auto) Neutrophils % Lymphocytes % Monocytes % Eosinophils % Basophils % Nucleated RBC % Sodium 136 Potassium 3.2 L Chloride 99 Carbon Dioxide 30 Anion Gap 7 L BUN 11 Creatinine 1.7 H Creat Clearance w eGFR 28.99 POC Glucometer Random Glucose 72 L Lactic Acid Calcium 8.4 L Phosphorus Magnesium Total Bilirubin AST ALT Alkaline Phosphatase Creatine Kinase Troponin I B-Natriuretic Peptide Total Protein Albumin Lipase Antibody Identification Antigen Identification Active Medications Generic Name Dose Route Start Last Admin Trade Name Freq PRN Reason Stop Dose Admin Amlodipine Besylate 5 mg 05/18/18 10:00 05/18/18 12:00 Norvasc - PO Not Given DAILY HARPAL Collagenase 1 applic 05/18/18 10:00 05/18/18 19:10 Santyl - TP 1 applic DAILY HARPAL Administration Protocol Sodium Chloride 250 mls @ 3,000 mls/hr 05/18/18 17:19 Normal Saline - IV 05/19/18 17:18 PRN PRN Hypotension during Dialysis Ceftriaxone Sodium 1 gm/ 100 mls @ 200 mls/hr 05/19/18 10:00 Dextrose IVPB DAILY HARPAL Protocol Metronidazole 500 mg in 100 mls @ 100 mls/hr 05/18/18 18:00 05/19/18 02:17 Flagyl 500mg Premixed Ivpb - IVPB 100 mls/hr Q8H-IV HARPAL Administration Insulin Aspart 1 vial 05/18/18 11:00 05/19/18 00:00 Novolog Vial Sliding Scale - SQ Not Given ACHS HARPAL Protocol Lactobacillus Acidophilus 1 tab 05/18/18 10:00 05/18/18 10:00 Bacid - PO 1 tab DAILY HARPAL Administration Metoprolol Tartrate 25 mg 05/18/18 10:00 05/18/18 23:53 Lopressor - GT 25 mg BID HARPAL Administration Mirtazapine 15 mg 05/18/18 22:00 05/18/18 23:53 Remeron - GT 15 mg HS HARPAL Administration ASSESSMENT/PLAN: This is a 77 year old woman with a history of ESRD, failed kidney transplant, fecal transplant for C. difficile colitis, dementia, depression, HTN, type 2 DM , atrial fib, diverticular bleed who presented to the ED with abdominal pain. #Acute hypoxic respiratory failure secondary to healthcare associated pneumonia , possible aspiration pneumonia -Maintaing saturation on RA -IV abx: ceftriaxone, flagyl -ID on board -Follow cultures -Oxygen to maintain saturation >90% #Possible acute cholecystitis -Sx consulted -No sx intervention at this time -IV abx #Hypertensive urgency -resolved -Continue Norvasc, Lopressor #Stage 4 sacral pressure ulcer -Continue local wound care with Santyl -Follow cultures #Severe protein calorie malnutrition -PEG - resume feeds #Dementia with depression -Continue Remeron #History of C. difficile colitis #History fecal transplant #Completed course of Vancomycin #Anemia -Continue Epogen #ESRD -History of failed renal transplant -Nephrology consult for HD #HTN -Continue Lopressor, Norvasc #History of atrial fib -in sinus rhythm -Continue Lopressor -Not on anticoagulation secondary to history GI bleed #Type 2 DM -Fingersticks with Novolog sliding scale #FEN -no iv fluids -monitor -tube feeds Visit type - Emergency Visit Emergency Visit: Yes ED Registration Date: 05/17/18 Care time: The patient presented to the Emergency Department on the above date and was hospitalized for further evaluation of their emergent condition. - New Patient This patient is new to me today: Yes Date on this admission: 05/19/18 - Critical Care Critical Care patient: No
[2018-05-19] MEDS ORDERED: cefTRIAXone SODIUM 1 GM VIAL ONE (09:35)
[2018-05-19] MEDS ORDERED: DEXTROSE 5%-WATER - 50 ML IVPB ONE (09:35)
[2018-05-19] MEDS: CEFTRIAXONE 1 GM in DEXTROSE 5%-WATER - 50 ML IVPB SCH (10:20)
[2018-05-19] MEDS: amLODIPine BESYLATE 5 MG TABLET (FP) PO SCH (10:21)
[2018-05-19] MEDS: METOPROLOL TARTRATE 25 MG TABLET (FP) GT SCH ×2 (10:21→22:55)
[2018-05-19] MEDS: LACTOBACILLUS ACIDOPHILUS 1 TABLET PO SCH (10:21)
[2018-05-19] MEDS: COLLAGENASE CLOSTRIDIUM HIST. 30 GRAMS TUBE TP SCH (10:21)
--- NOTE | 2018-05-19 12:49 | PN ---
Progress Note (short form) - Note Progress Note: RENAL awake and alert comfortable though states her hands hurt son by bedside Last Vital Signs Temp Pulse Resp BP Pulse Ox 97.5 F L 86 18 180/92 H 92 L 05/18/18 20:00 05/18/18 20:00 05/18/18 20:00 05/18/18 20:00 05/18/18 20:32 lungs clear cvs s1s2 rr abd soft ext no edema neuro a+ox3 CBC, BMP 05/19/18 07:00 05/19/18 07:00 Current Medications Generic Name Dose Route Start Last Admin Trade Name Freq PRN Reason Stop Dose Admin Amlodipine Besylate 5 mg 05/18/18 10:00 05/19/18 10:21 Norvasc - PO 5 mg DAILY HARPAL Administration Collagenase 1 applic 05/18/18 10:00 05/19/18 10:21 Santyl - TP 1 applic DAILY HARPAL Administration Protocol Sodium Chloride 250 mls @ 3,000 mls/hr 05/18/18 17:19 Normal Saline - IV 05/19/18 17:18 PRN PRN Hypotension during Dialysis Ceftriaxone Sodium 1 gm/ 50 mls @ 100 mls/hr 05/19/18 10:00 05/19/18 10:20 Dextrose IVPB 100 mls/hr DAILY HARPAL Administration Protocol Metronidazole 500 mg in 100 mls @ 100 mls/hr 05/18/18 18:00 05/19/18 10:21 Flagyl 500mg Premixed Ivpb - IVPB 100 mls/hr Q8H-IV HARPAL Administration Insulin Aspart 1 vial 05/18/18 11:00 05/19/18 11:45 Novolog Vial Sliding Scale - SQ Not Given ACHS HARPAL Protocol Lactobacillus Acidophilus 1 tab 05/18/18 10:00 05/19/18 10:21 Bacid - PO 1 tab DAILY HARPAL Administration Metoprolol Tartrate 25 mg 05/18/18 10:00 05/19/18 10:21 Lopressor - GT 25 mg BID HARPAL Administration Mirtazapine 15 mg 05/18/18 22:00 05/18/18 23:53 Remeron - GT 15 mg HS HARPAL Administration IMPRESSION esrd despite low creat. She has no muscle mass, very emaciated r/o pneumonia, r/o cholecystitis hgb stable after initial drop PLAN she was dialyzed yesterday continue antibiotics per id PT monitor hemoglobin, intial drop may have been dilutional but she has a history of GIB MV
[2018-05-19] MEDS ORDERED: amLODIPine BESYLATE 5 MG TABLET (FP) PO ONE (15:57)
--- NOTE | 2018-05-19 18:29 | PN ---
Teaching Attending Note Name of Resident: Aldo Lorenzo ATTENDING PHYSICIAN STATEMENT I saw and evaluated the patient. I reviewed the resident's note and discussed the case with the resident. I agree with the resident's findings and plan as documented. SUBJECTIVE: Patient is confused. She denies pain. OBJECTIVE: Vital Signs Period Temp Pulse Resp BP Sys/Franco Pulse Ox Last 24 Hr 97.3 F-97.5 F 76-86 16-18 167-196/86-95 92-93 HEART: S1S2, RRR LUNGS: Clear ABDOMEN: Soft, non-distended, normal BS, (+) PEG EXTREMITIES: No edema Laboratory Results - last 24 hr 05/18/18 05/19/18 05/19/18 23:55 07:00 07:00 WBC 4.6 RBC 2.46 L Hgb 8.3 L Hct 23.6 L MCV 96.1 H MCH 33.7 MCHC 35.0 RDW 20.0 H Plt Count 230 MPV 8.7 Absolute Neuts (auto) 2.9 Neutrophils % 64.4 Lymphocytes % 20.3 Monocytes % 7.6 Eosinophils % 6.2 H D Basophils % 1.5 Nucleated RBC % 0 Sodium 136 Potassium 3.2 L Chloride 99 Carbon Dioxide 30 Anion Gap 7 L BUN 11 Creatinine 1.7 H Creat Clearance w eGFR 28.99 POC Glucometer 83 Random Glucose 72 L Calcium 8.4 L 05/19/18 16:56 WBC RBC Hgb Hct MCV MCH MCHC RDW Plt Count MPV Absolute Neuts (auto) Neutrophils % Lymphocytes % Monocytes % Eosinophils % Basophils % Nucleated RBC % Sodium Potassium Chloride Carbon Dioxide Anion Gap BUN Creatinine Creat Clearance w eGFR POC Glucometer 83 Random Glucose Calcium Current Medications Generic Name Dose Route Start Last Admin Trade Name Earleq PRN Reason Stop Dose Admin Amlodipine Besylate 5 mg 05/18/18 10:00 05/19/18 10:21 Norvasc - PO 5 mg DAILY HARPAL Administration Collagenase 1 applic 05/18/18 10:00 05/19/18 10:21 Santyl - TP 1 applic DAILY HARPAL Administration Protocol Ceftriaxone Sodium 1 gm/ 50 mls @ 100 mls/hr 05/19/18 10:00 05/19/18 10:20 Dextrose IVPB 100 mls/hr DAILY HARPAL Administration Protocol Metronidazole 500 mg in 100 mls @ 100 mls/hr 05/18/18 18:00 05/19/18 17:08 Flagyl 500mg Premixed Ivpb - IVPB 100 mls/hr Q8H-IV HARPAL Administration Insulin Aspart 1 vial 05/18/18 11:00 05/19/18 16:57 Novolog Vial Sliding Scale - SQ Not Given ACHS HARPAL Protocol Lactobacillus Acidophilus 1 tab 05/18/18 10:00 05/19/18 10:21 Bacid - PO 1 tab DAILY HARPAL Administration Metoprolol Tartrate 25 mg 05/18/18 10:00 05/19/18 10:21 Lopressor - GT 25 mg BID HARPAL Administration Mirtazapine 15 mg 05/18/18 22:00 05/18/18 23:53 Remeron - GT 15 mg HS HARPAL Administration ASSESSMENT AND PLAN: This is a 77 year old woman with a history of ESRD, failed kidney transplant, fecal transplant for C. difficile colitis, dementia, depression, HTN, type 2 DM , atrial fib, diverticular bleed who presented to the ED with abdominal pain. 1. Acute hypoxic respiratory failure secondary to healthcare associated pneumonia, possible aspiration pneumonia - Continue ceftriaxone, Flagyl - Oxygen as needed to maintain saturation >90% 2. Possible acute cholecystitis - Continue ceftriaxone, Flagyl 3. Hypertensive urgency - BP improved - Continue Norvasc, Lopressor 4. Stage 4 sacral pressure ulcer - Continue local wound care with Santyl 5. Severe protein calorie malnutrition - Has PEG - Continue Nepro in addition to PO 6. Hyponatremia - Possibly secondary to fluid overload - Improved with HD 7. Hypokalemia 8. Dementia with depression - Continue Remeron 9. History of C. difficile colitis - History fecal transplant - Completed course of Vancomycin 10. Anemia - Continue Epogen 11. ESRD - History of failed renal transplant - Nephrology consult for HD 12. HTN - Continue Lopressor, Norvasc 13. History of atrial fib - Currently in sinus rhythm - Continue Lopressor - Not on anticoagulation secondary to history of GI bleed 14. Type 2 DM - Fingersticks with Novolog sliding scale
[2018-05-19] MEDS: MIRTAZAPINE 15 MG TABLET (FP) GT SCH (22:55)
[2018-05-19] MEDS ORDERED: ACETAMINOPHEN 325 MG TABLET (FP) PO ONE (23:17)
[2018-05-20] MEDS: INSULIN SLIDING SCALE (NOVOLOG) 1 VIAL SQ SCH ×4 (06:01→21:59)
--- NOTE | 2018-05-20 07:37 | PN ---
Teaching Attending Note Name of Resident: Amado Ruiz ATTENDING PHYSICIAN STATEMENT I saw and evaluated the patient. I reviewed the resident's note and discussed the case with the resident. I agree with the resident's findings and plan as documented. SUBJECTIVE:Still c/o mild Epigastrium pain OBJECTIVE: Vital Signs Period Temp Pulse Resp BP Sys/Franco Pulse Ox Last 24 Hr 97.3 F-97.9 F 71-86 16-20 101-196/51-95 93-95 Elderly sick looking F not in distress HEENT: Mm moist, mild anemia NECK: No JVd No Bruit CHEST: Minimal basal creprts CVS: S1S2 R ABD: Soft PEG at place, mild epigastric tenderness EXT: Trace edema, no calf tenderness DEOILING MACHINE OPERATOR: Non focal CBC, BMP 05/20/18 06:17 05/20/18 06:17 ASSESSMENT AND PLAN:77 year old woman with a history of ESRD, failed kidney transplant, fecal transplant for C. difficile colitis, dementia, depression, HTN , type 2 DM, atrial fib, diverticular bleed who presented to the ED with abdominal pain. Patient remained afebrile hemodynamicaly stable , TWBC normal; Plan: Cont current management Problem List - Problems (1) Acute respiratory failure with hypoxia Assessment/Plan: Due to HCAP improving on current abx cultures are -ve Code(s): J96.01 - ACUTE RESPIRATORY FAILURE WITH HYPOXIA (2) UTI (urinary tract infection) Assessment/Plan: With E Colli cont current abx Code(s): N39.0 - URINARY TRACT INFECTION, SITE NOT SPECIFIED (3) Sepsis Assessment/Plan: Due to UTI cont current abx Code(s): A41.9 - SEPSIS, UNSPECIFIED ORGANISM (4) Malnutrition Assessment/Plan: Nutritional consult cont PEG feeding. Code(s): E46 - UNSPECIFIED PROTEIN-CALORIE MALNUTRITION (5) HTN (hypertension) Assessment/Plan: Well controlled on current meds Code(s): I10 - ESSENTIAL (PRIMARY) HYPERTENSION (6) ESRD (end stage renal disease) on dialysis Assessment/Plan: On HD will F/U renal recommendations. Code(s): N18.6 - END STAGE RENAL DISEASE; Z99.2 - DEPENDENCE ON RENAL DIALYSIS (7) Cholecystitis Assessment/Plan: not a surgery candidate evaluated on IV abx. Code(s): K81.9 - CHOLECYSTITIS, UNSPECIFIED (8) Sacral decubitus ulcer, stage III Assessment/Plan: Grew ESBL and MRSA presemptive will discuss with ID for abx once we get final culture at present patient is afebrile TWBC normal Code(s): L89.153 - PRESSURE ULCER OF SACRAL REGION, STAGE 3
[2018-05-20 08:01] LABS: BASO % 2.2 % (0-2.0); EOS % 7.1 % (0-4.5); HEMATOCRIT 23.3 % (32.4-45.2); HEMOGLOBIN 8.2 GM/dL (10.7-15.3); LYMPH % 20.8 % (8-40); MCH 33.8 pg (25.7-33.7); MCHC 35.3 g/dl (32.0-36.0); MEAN CELL VOLUME 95.8 fl (80-96); MEAN PLT VOLUME 8.7 fl (7.5-11.1); MONO % 8.1 % (3.8-10.2); NEUT % 61.8 % (42.8-82.8); PLATELET COUNT 235 K/MM3 (134-434); RBC 2.43 M/mm3 (3.60-5.2); RDW 20.2 % (11.6-15.6); WHITE BLOOD COUNT 4.8 K/mm3 (4.0-10.0)
[2018-05-20 08:34] LABS: ALBUMIN 2.2 g/dl (3.4-5.0); ALK PHOS 130 U/L (45-117); ANION GAP 7 MMOL/L (8-16); BILIRUBIN,TOTAL 0.6 mg/dL (0.2-1); BLOOD UREA NITROGEN 18 mg/dL (7-18); CALCIUM 8.3 mg/dL (8.5-10.1); CHLORIDE 99 mmol/L (98-107); CO2 29 mmol/L (21-32); CREATININE 2.6 mg/dL (0.55-1.3); GLUCOSE,RANDOM 82 mg/dL (74-106); POTASSIUM 3.2 mmol/L (3.5-5.1); SGOT/AST 16 U/L (15-37); SGPT/ALT 8 U/L (13-61); SODIUM 136 mmol/L (136-145); TOT PROT 7.8 g/dl (6.4-8.2)
[2018-05-20] MEDS ORDERED: DEXTROSE 5%-WATER - 50 ML IVPB ONE (08:40)
[2018-05-20] MEDS ORDERED: cefTRIAXone SODIUM 1 GM VIAL ONE (08:40)
[2018-05-20] MEDS: LACTOBACILLUS ACIDOPHILUS 1 TABLET PO SCH (09:03)
[2018-05-20] MEDS: CEFTRIAXONE 1 GM in DEXTROSE 5%-WATER - 50 ML IVPB SCH (09:03)
[2018-05-20] MEDS: amLODIPine BESYLATE 5 MG TABLET (FP) PO SCH (09:03)
[2018-05-20] MEDS: METOPROLOL TARTRATE 25 MG TABLET (FP) GT SCH ×2 (09:03→21:59)
[2018-05-20] MEDS: COLLAGENASE CLOSTRIDIUM HIST. 30 GRAMS TUBE TP SCH (09:12)
--- NOTE | 2018-05-20 14:11 | PN ---
Physical Exam: SUBJECTIVE: Patient seen and examined at bedside this morning. Patient endorses cough, and diffuse pain "everywhere". Denies subjective fevers, chills. OBJECTIVE: Vital Signs Period Temp Pulse Resp BP Sys/Franco Pulse Ox Last 24 Hr 97.3 F-97.9 F 71-86 16-20 101-175/51-88 95-95 GENERAL: Awake, alert, and oriented to person and place, in no acute distress. HEAD: Normocephalic, atraumatic EYES: Pupils equal, round and reactive to light, extraocular movements intact b/ l without nystagus. Conjunctiva not injected. EARS, NOSE, THROAT: Oropharynx clear without exudates without lesions. Dry mucous membranes. NECK: Supple without lymphadenopathy, or JVD LUNGS: Good inspiratory effort. Bibasilar crackles auscultated left > right with faint expiratory wheezing bilaterally. Patient is not using accessory muscles of respiration. HEART: Regular rate and rhythm, normal S1 and S2 without murmur, rub or gallop. ABDOMEN: Soft, diffusely tender to deep palpation, most pronounced at right upper quadrants. Normoactive bowel sounds X4 quadrants. No rebound tenderness. No hepatomegaly palpated or percussed. MUSCULOSKELETAL: Thin, emaciated b/l upper and lower extremities. UPPER EXTREMITIES: 2+ radial pulses b/l, warm, well-perfused. LOWER EXTREMITIES: 2+ dorsalis pedis pulses b/l, warm, well-perfused. No pitting edema b/l. NEUROLOGICAL: Cranial nerves II-XII grossly intact. Normal speech. Unable to observe gait as patient is bed-bound. PSYCHIATRIC: Cooperative. Appropriate mood and affect upon my encounter. SKIN: Sacral ulcer approx 2cm x 2cm, bandaged clean, dry, nonerythematous, nondraining. Laboratory Results - last 24 hr 05/18/18 05/19/18 05/19/18 15:35 16:56 22:58 WBC RBC Hgb Hct MCV MCH MCHC RDW Plt Count MPV Absolute Neuts (auto) Neutrophils % Lymphocytes % Monocytes % Eosinophils % Basophils % Nucleated RBC % Sodium Potassium Chloride Carbon Dioxide Anion Gap BUN Creatinine Creat Clearance w eGFR POC Glucometer 83 76 Random Glucose Calcium Total Bilirubin AST ALT Alkaline Phosphatase Total Protein Albumin Hep C Ab Diagnostic 0.2 05/20/18 05/20/18 05/20/18 04:51 06:17 06:17 WBC 4.8 RBC 2.43 L Hgb 8.2 L Hct 23.3 L MCV 95.8 MCH 33.8 H MCHC 35.3 RDW 20.2 H Plt Count 235 MPV 8.7 Absolute Neuts (auto) 3.0 Neutrophils % 61.8 Lymphocytes % 20.8 Monocytes % 8.1 Eosinophils % 7.1 H Basophils % 2.2 H Nucleated RBC % 0 Sodium 136 Potassium 3.2 L Chloride 99 Carbon Dioxide 29 Anion Gap 7 L BUN 18 Creatinine 2.6 H Creat Clearance w eGFR 17.76 POC Glucometer 74 Random Glucose 82 Calcium 8.3 L Total Bilirubin 0.6 AST 16 ALT 8 L Alkaline Phosphatase 130 H Total Protein 7.8 Albumin 2.2 L Hep C Ab Diagnostic 05/20/18 12:14 WBC RBC Hgb Hct MCV MCH MCHC RDW Plt Count MPV Absolute Neuts (auto) Neutrophils % Lymphocytes % Monocytes % Eosinophils % Basophils % Nucleated RBC % Sodium Potassium Chloride Carbon Dioxide Anion Gap BUN Creatinine Creat Clearance w eGFR POC Glucometer 90 Random Glucose Calcium Total Bilirubin AST ALT Alkaline Phosphatase Total Protein Albumin Hep C Ab Diagnostic Active Medications Generic Name Dose Route Start Last Admin Trade Name Freq PRN Reason Stop Dose Admin Amlodipine Besylate 5 mg 05/20/18 10:00 05/20/18 09:03 Norvasc - PO 5 mg DAILY HARPAL Administration Collagenase 1 applic 05/20/18 10:00 05/20/18 09:12 Santyl - TP 1 applic DAILY HARPAL Administration Protocol Ceftriaxone Sodium 1 gm/ 50 mls @ 100 mls/hr 05/19/18 10:00 05/20/18 09:03 Dextrose IVPB 100 mls/hr DAILY HARPAL Administration Protocol Metronidazole 500 mg in 100 mls @ 100 mls/hr 05/18/18 18:00 05/20/18 09:04 Flagyl 500mg Premixed Ivpb - IVPB 100 mls/hr Q8H-IV HARPAL Administration Insulin Aspart 1 vial 05/20/18 11:00 05/20/18 13:05 Novolog Vial Sliding Scale - SQ Not Given ACHS HARPAL Protocol Lactobacillus Acidophilus 1 tab 05/20/18 10:00 05/20/18 09:03 Bacid - PO 1 tab DAILY HARPAL Administration Metoprolol Tartrate 25 mg 05/20/18 10:00 05/20/18 09:03 Lopressor - GT 25 mg BID HARPAL Administration Mirtazapine 15 mg 05/20/18 22:00 Remeron - GT HS HARPAL ASSESSMENT/PLAN: Patient is a 78 year old female with history of ESRD on HD Sun, s/ p kidney transplant, diabetes mellitus, hypertension, Afib not on anticoagulation presents with complaint of abdominal pain. Cholecystitis, questionable -Right upper quadrant US shows mild nonspecific gallbladder over-distension with borderline wall thickening. No obvious cholelithiasis, or definite biliary tract dilation noted. -Surgical consult (Dr. Kelly). No acute surgical intervention at this time. Acute hypoxic respiratory failure, secondary to healthcare associated pneumonia -Chest xray shows ateletcatic changes with questionable infiltrate left lung. -Rocephin 1 gram IV daily -Flagyl 500mg IV Q8H -Doxycycline 100mg IV BID -Patient is currently on face mask saturating 100% -ID consult (Dr. Azevedo) appreciated Hypertensive Urgency -resolved -Amlodipine 5mg GT daily -Metoprolol 25mg GT BID -Follow vital signs closely, manual BP Afib- currently not on anticoagulation -Metoprolol 25mg GT BID for rate control Diabetes mellitus -Fingerstick blood glucose monitoring ACHS -Insulin sliding scale ACHS ESRD on HD , , Sun -Nephrology consult (Dr. Winters) appreciated -Follow CBC, CMP Sacral decubitus ulcer -Clean, dry, no acute signs of infection -Continue santyl dressing daily -Wound care consult (Dr. Neri) -Follow wound culture Dementia -Remeron 15mg GT daily FEN -No IV fluids indicated -Follow CMP -Nepro tube feed Disposition -Continue care in telemetry floor. Visit type - Emergency Visit Emergency Visit: Yes ED Registration Date: 05/17/18 Care time: The patient presented to the Emergency Department on the above date and was hospitalized for further evaluation of their emergent condition. - New Patient This patient is new to me today: No - Critical Care Critical Care patient: No - Discharge Referral Referred to [facility] No
--- NOTE | 2018-05-20 14:28 | PN ---
Progress Note, Physician History of Present Illness: Pt seen and examined at bedside. She is awake and appears comfortable. - Current Medication List Current Medications: Active Medications Amlodipine Besylate (Norvasc -) 5 mg PO DAILY HARPAL Last Admin: 05/20/18 09:03 Dose: 5 mg Collagenase (Santyl -) 1 applic TP DAILY HARPAL; Protocol Last Admin: 05/20/18 09:12 Dose: 1 applic Ceftriaxone Sodium 1 gm/ (Dextrose) 50 mls @ 100 mls/hr IVPB DAILY HARPAL; Protocol Last Admin: 05/20/18 09:03 Dose: 100 mls/hr Metronidazole (Flagyl 500mg Premixed Ivpb -) 500 mg in 100 mls @ 100 mls/hr IVPB Q8H-IV HARPAL Last Admin: 05/20/18 09:04 Dose: 100 mls/hr Insulin Aspart (Novolog Vial Sliding Scale -) 1 vial SQ ACHS HARPAL; Protocol Last Admin: 05/20/18 13:05 Dose: Not Given Lactobacillus Acidophilus (Bacid -) 1 tab PO DAILY HARPAL Last Admin: 05/20/18 09:03 Dose: 1 tab Metoprolol Tartrate (Lopressor -) 25 mg GT BID HARPAL Last Admin: 05/20/18 09:03 Dose: 25 mg Mirtazapine (Remeron -) 15 mg GT HS HARPAL - Objective Vital Signs: Vital Signs Temperature 97.5 F L 05/20/18 11:00 Pulse Rate 78 05/20/18 11:00 Respiratory Rate 20 05/20/18 11:00 Blood Pressure 166/85 05/20/18 11:00 O2 Sat by Pulse Oximetry (%) 95 05/20/18 11:00 Constitutional: Yes: Calm Eyes: Yes: Conjunctiva Clear Cardiovascular: Yes: S1, S2 Gastrointestinal: Yes: Soft Genitourinary: Yes: Incontinence Musculoskeletal: Yes: Muscle Weakness Edema: No Neurological: Yes: Confusion Labs: CBC, BMP 05/20/18 06:17 05/20/18 06:17 INR, PTT INR 1.02 (0.83-1.09) 05/18/18 05:30 Problem List - Problems (1) Cholecystitis Code(s): K81.9 - CHOLECYSTITIS, UNSPECIFIED (2) HTN (hypertension) Code(s): I10 - ESSENTIAL (PRIMARY) HYPERTENSION (3) ESRD (end stage renal disease) on dialysis Code(s): N18.6 - END STAGE RENAL DISEASE; Z99.2 - DEPENDENCE ON RENAL DIALYSIS Assessment/Plan Current Medications Generic Name Dose Route Start Last Admin Trade Name Berta PRN Reason Stop Dose Admin Amlodipine Besylate 5 mg 05/20/18 10:00 05/20/18 09:03 Norvasc - PO 5 mg DAILY HARPAL Administration Collagenase 1 applic 05/20/18 10:00 05/20/18 09:12 Santyl - TP 1 applic DAILY HARPAL Administration Protocol Ceftriaxone Sodium 1 gm/ 50 mls @ 100 mls/hr 05/19/18 10:00 05/20/18 09:03 Dextrose IVPB 100 mls/hr DAILY HARPAL Administration Protocol Metronidazole 500 mg in 100 mls @ 100 mls/hr 05/18/18 18:00 05/20/18 09:04 Flagyl 500mg Premixed Ivpb - IVPB 100 mls/hr Q8H-IV HARPAL Administration Insulin Aspart 1 vial 05/20/18 11:00 05/20/18 13:05 Novolog Vial Sliding Scale - SQ Not Given ACHS HARPAL Protocol Lactobacillus Acidophilus 1 tab 05/20/18 10:00 05/20/18 09:03 Bacid - PO 1 tab DAILY HARPAL Administration Metoprolol Tartrate 25 mg 05/20/18 10:00 05/20/18 09:03 Lopressor - GT 25 mg BID HARPAL Administration Mirtazapine 15 mg 05/20/18 22:00 Remeron - GT HS HARPAL Impression 1. ESRD 2. failed kidney transplant 3. hx DM 4. Hx HTN 5. sacral ulcer 6. post op infection 7. c.diff 8. a-fib 9. failure to thrive 10.malnutrition 11. anemia 12. GI bleed 13. r/o cholecystitis Plan - HD tomorrow - cont medical workup - orders written - 3 k bath - monitor hg - epogen for anemia
[2018-05-20] MEDS ORDERED: MIRTAZAPINE 15 MG TABLET (FP) GT SCH (22:00)
[2018-05-21] MEDS: INSULIN SLIDING SCALE (NOVOLOG) 1 VIAL SQ SCH ×2 (06:09→12:06)
[2018-05-21] MEDS ORDERED: SODIUM CHLORIDE 250 ML IV PRN (10:20)
[2018-05-21] MEDS: METOPROLOL TARTRATE 25 MG TABLET (FP) GT SCH (10:30)
[2018-05-21] MEDS ORDERED: EPOETIN ALFA 10,000 UNIT/1 ML VIAL IVPUSH ONE (11:00)
[2018-05-21 11:17] LABS: HEMATOCRIT 23.4 % (32.4-45.2); MCH 33.1 pg (25.7-33.7); MCHC 34.2 g/dl (32.0-36.0); MEAN CELL VOLUME 96.6 fl (80-96); MEAN PLT VOLUME 8.5 fl (7.5-11.1); PLATELET COUNT 227 K/MM3 (134-434); RBC 2.42 M/mm3 (3.60-5.2); RDW 20.3 % (11.6-15.6); WHITE BLOOD COUNT 5.2 K/mm3 (4.0-10.0)
[2018-05-21 11:45] LABS: ANION GAP 8 MMOL/L (8-16); BLOOD UREA NITROGEN 31 mg/dL (7-18); CALCIUM 8.4 mg/dL (8.5-10.1); CHLORIDE 101 mmol/L (98-107); CO2 30 mmol/L (21-32); CREATININE 3.4 mg/dL (0.55-1.3); GLUCOSE,RANDOM 106 mg/dL (74-106); POTASSIUM 3.2 mmol/L (3.5-5.1); SODIUM 139 mmol/L (136-145)
--- NOTE | 2018-05-21 11:58 | PN ---
Progress Note, Physician History of Present Illness: Pt seen and examined at bedside. She is tolerating HD. She denies shortness of breath. - Current Medication List Current Medications: Active Medications Amlodipine Besylate (Norvasc -) 5 mg PO DAILY HARPAL Last Admin: 05/20/18 09:03 Dose: 5 mg Collagenase (Santyl -) 1 applic TP DAILY HARPAL; Protocol Last Admin: 05/20/18 09:12 Dose: 1 applic Ceftriaxone Sodium 1 gm/ (Dextrose) 50 mls @ 100 mls/hr IVPB DAILY HARPAL; Protocol Last Admin: 05/20/18 09:03 Dose: 100 mls/hr Metronidazole (Flagyl 500mg Premixed Ivpb -) 500 mg in 100 mls @ 100 mls/hr IVPB Q8H-IV HARPAL Last Admin: 05/21/18 01:20 Dose: 100 mls/hr Insulin Aspart (Novolog Vial Sliding Scale -) 1 vial SQ ACHS HARPAL; Protocol Last Admin: 05/21/18 06:09 Dose: Not Given Lactobacillus Acidophilus (Bacid -) 1 tab PO DAILY HARPAL Last Admin: 05/20/18 09:03 Dose: 1 tab Metoprolol Tartrate (Lopressor -) 25 mg GT BID HARPAL Last Admin: 05/20/18 21:59 Dose: 25 mg Mirtazapine (Remeron -) 15 mg GT HS HARPAL Last Admin: 05/20/18 21:59 Dose: 15 mg - Objective Vital Signs: Vital Signs Temperature 97.5 F L 05/21/18 10:00 Pulse Rate 70 05/21/18 10:05 Respiratory Rate 18 05/21/18 10:05 Blood Pressure 152/74 05/21/18 10:05 O2 Sat by Pulse Oximetry (%) 95 05/21/18 09:00 Constitutional: Yes: Calm Eyes: Yes: Conjunctiva Clear HENT: Yes: Atraumatic Cardiovascular: Yes: S1, S2 Respiratory: Yes: CTA Bilaterally Gastrointestinal: Yes: Soft Genitourinary: Yes: Incontinence Musculoskeletal: Yes: Muscle Weakness Edema: No Neurological: Yes: Oriented Labs: CBC, BMP 05/21/18 10:15 05/21/18 10:15 INR, PTT INR 1.02 (0.83-1.09) 05/18/18 05:30 Problem List - Problems (1) Cholecystitis Code(s): K81.9 - CHOLECYSTITIS, UNSPECIFIED (2) HTN (hypertension) Code(s): I10 - ESSENTIAL (PRIMARY) HYPERTENSION (3) ESRD (end stage renal disease) on dialysis Code(s): N18.6 - END STAGE RENAL DISEASE; Z99.2 - DEPENDENCE ON RENAL DIALYSIS Assessment/Plan Current Medications Generic Name Dose Route Start Last Admin Trade Name Berta PRN Reason Stop Dose Admin Amlodipine Besylate 5 mg 05/20/18 10:00 05/20/18 09:03 Norvasc - PO 5 mg DAILY HARPAL Administration Collagenase 1 applic 05/20/18 10:00 05/20/18 09:12 Santyl - TP 1 applic DAILY HARPAL Administration Protocol Ceftriaxone Sodium 1 gm/ 50 mls @ 100 mls/hr 05/19/18 10:00 05/20/18 09:03 Dextrose IVPB 100 mls/hr DAILY HARPAL Administration Protocol Metronidazole 500 mg in 100 mls @ 100 mls/hr 05/18/18 18:00 05/21/18 01:20 Flagyl 500mg Premixed Ivpb - IVPB 100 mls/hr Q8H-IV HARPAL Administration Insulin Aspart 1 vial 05/20/18 11:00 05/21/18 06:09 Novolog Vial Sliding Scale - SQ Not Given ACHS HARPAL Protocol Lactobacillus Acidophilus 1 tab 05/20/18 10:00 05/20/18 09:03 Bacid - PO 1 tab DAILY HARPAL Administration Metoprolol Tartrate 25 mg 05/20/18 10:00 05/20/18 21:59 Lopressor - GT 25 mg BID HARPAL Administration Mirtazapine 15 mg 05/20/18 22:00 05/20/18 21:59 Remeron - GT 15 mg HS HARPAL Administration Impression 1. ESRD 2. failed kidney transplant 3. hx DM 4. Hx HTN 5. sacral ulcer 6. post op infection 7. c.diff 8. a-fib 9. failure to thrive 10.malnutrition 11. anemia 12. GI bleed 13. r/o cholecystitis Plan - HD today - monitor bp, increase amlodipine to 10 mg if bp elevated - 3 k bath on hd - epogen for anemia - pt has HD set up as outpt Dr Winters
[2018-05-21] MEDS: COLLAGENASE CLOSTRIDIUM HIST. 30 GRAMS TUBE TP SCH (12:00)
[2018-05-21] MEDS: CEFTRIAXONE 1 GM in DEXTROSE 5%-WATER - 50 ML IVPB SCH (12:50)
--- NOTE | 2018-05-21 13:10 | PN ---
Teaching Attending Note Name of Resident: Amado Ruiz ATTENDING PHYSICIAN STATEMENT I saw and evaluated the patient. I reviewed the resident's note and discussed the case with the resident. I agree with the resident's findings and plan as documented. SUBJECTIVE: Feels okay - no complaints. OBJECTIVE: Afebrile. resting comfortably during HD Last Vital Signs Temp Pulse Resp BP Pulse Ox 97.5 F L 79 18 174/87 H 95 05/21/18 10:00 05/21/18 12:05 05/21/18 12:05 05/21/18 12:05 05/21/18 09:00 HEENT - Atraumatic, Normocephalic. Heart - S1, S2, soft SM Lungs - no crackles/wheeze. R SC permacath. Abdomen - PEG site clean - soft, non-tender, bowel Sounds normal. Extremities - no calf tenderness. Neuro - AAO x 1. Moves all 4 extremities. Laboratory Results - last 24 hr 05/18/18 05/20/18 05/20/18 15:35 16:15 21:57 WBC RBC Hgb Hct MCV MCH MCHC RDW Plt Count MPV Sodium Potassium Chloride Carbon Dioxide Anion Gap BUN Creatinine Creat Clearance w eGFR POC Glucometer 114 94 Random Glucose Calcium Hep C Ab Diagnostic 0.2 05/21/18 05/21/18 05/21/18 05:48 10:15 10:15 WBC 5.2 RBC 2.42 L Hgb 8.0 L Hct 23.4 L MCV 96.6 H MCH 33.1 MCHC 34.2 RDW 20.3 H Plt Count 227 MPV 8.5 Sodium 139 Potassium 3.2 L Chloride 101 Carbon Dioxide 30 Anion Gap 8 BUN 31 H Creatinine 3.4 H Creat Clearance w eGFR 13.03 POC Glucometer 75 Random Glucose 106 Calcium 8.4 L Hep C Ab Diagnostic 05/21/18 11:59 WBC RBC Hgb Hct MCV MCH MCHC RDW Plt Count MPV Sodium Potassium Chloride Carbon Dioxide Anion Gap BUN Creatinine Creat Clearance w eGFR POC Glucometer 141 Random Glucose Calcium Hep C Ab Diagnostic Current Medications Generic Name Dose Route Start Last Admin Trade Name Freq PRN Reason Stop Dose Admin Amlodipine Besylate 5 mg 05/20/18 10:00 05/20/18 09:03 Norvasc - PO 5 mg DAILY HARPAL Administration Collagenase 1 applic 05/20/18 10:00 05/20/18 09:12 Santyl - TP 1 applic DAILY HARPAL Administration Protocol Ceftriaxone Sodium 1 gm/ 50 mls @ 100 mls/hr 05/19/18 10:00 05/20/18 09:03 Dextrose IVPB 100 mls/hr DAILY HARPAL Administration Protocol Metronidazole 500 mg in 100 mls @ 100 mls/hr 05/18/18 18:00 05/21/18 01:20 Flagyl 500mg Premixed Ivpb - IVPB 100 mls/hr Q8H-IV HARPAL Administration Insulin Aspart 1 vial 05/20/18 11:00 05/21/18 12:06 Novolog Vial Sliding Scale - SQ Not Given ACHS HARPAL Protocol Lactobacillus Acidophilus 1 tab 05/20/18 10:00 05/20/18 09:03 Bacid - PO 1 tab DAILY HARPAL Administration Metoprolol Tartrate 25 mg 05/20/18 10:00 05/20/18 21:59 Lopressor - GT 25 mg BID HARPAL Administration Mirtazapine 15 mg 05/20/18 22:00 05/20/18 21:59 Remeron - GT 15 mg HS HARPAL Administration ASSESSMENT AND PLAN: 77 year old female with history of ESRD on HD s/p failed kidney transplant, s/p fecal transplant for C. difficile colitis, dementia, depression, HTN, DM 2, atrial fib, history of diverticular bleed who presented with abdominal pain, found to have Pneumonia. 1. Acute hypoxic respiratory failure secondary to healthcare associated pneumonia, possible aspiration pneumonia Treated with 4 days of Ceftriaxone and Flagyl Will treat for an additional 3 days on discharge with Levofloxacin and Flagyl to complete a 7 day course. Afebrile, hemodynamically stable. 2. Non-specific abdominal pain sec to UTI - resolved. Urine Cx positive for EColi - on Day 4 Ceftriaxone Treated for possible acute cholecystitis covered by Ceftriaxone and Flagyl Abdominal imaging negative. 3. Hypertensive urgency - BP improving Will continue Norvasc, Lopressor - will increase dose of Norvasc to 10mg if BP remains elevated . 4. Stage 4 sacral pressure ulcer - Continue local wound care with Santyl. Wound Cx pos for MRSA and EColi - likely colonizers. 5. Severe protein calorie malnutrition - Continue Nepro via PEG 6. Hyponatremia sec to fluid overload, improved with HD. 7. Dementia with depression - Continue Remeron. No psychosis. 8. History of C. difficile colitis s/p fecal transplant. On Flagyl currently while on Abx therapy. Continue probiotics on discharge 9. Chronic Anemia sec to ESRD - Continue Epogen 10. ESRD s/p failed renal transplant - continue HD vis R permacath. 11. History of atrial fib - Currently in sinus rhythm - Continue Lopressor - not on anticoagulation secondary to history of GI bleed 12. DM 2 - resume home anti-diabetic regimen on discharge. Medically Stable for discharge in the care of her son with home VNA.
[2018-05-21 13:17] LABS: HBSAG SCREEN Negative (Negative); HEP A AB, IGM Negative (Negative); HEP B CORE AB, TOT Negative (Negative)
--- NOTE | 2018-05-21 13:19 | PN ---
Physical Exam: SUBJECTIVE: Patient seen and examined at bedside this morning. She denies acute complaints today. OBJECTIVE: Vital Signs Period Temp Pulse Resp BP Sys/Franco Pulse Ox Last 24 Hr 97.3 F-97.9 F 67-79 18-20 140-174/70-98 94-95 GENERAL: Awake, alert, and oriented to person and place, in no acute distress. HEAD: Normocephalic, atraumatic EYES: Pupils equal, round and reactive to light, extraocular movements intact b/ l without nystagus. Conjunctiva not injected. EARS, NOSE, THROAT: Oropharynx clear without exudates without lesions. Dry mucous membranes. NECK: Supple without lymphadenopathy, or JVD LUNGS: Good inspiratory effort. Bibasilar crackles auscultated left > right auscultated. Patient is not using accessory muscles of respiration. HEART: Regular rate and rhythm, normal S1 and S2 without murmur, rub or gallop. ABDOMEN: Soft, diffusely tender to deep palpation, most pronounced at right upper quadrant. Normoactive bowel sounds X4 quadrants. No rebound tenderness. No hepatomegaly palpated or percussed. PEG tube site noted clean, dry, nondraining. MUSCULOSKELETAL: Thin, emaciated b/l upper and lower extremities. UPPER EXTREMITIES: 2+ radial pulses b/l, warm, well-perfused. LOWER EXTREMITIES: 1+ dorsalis pedis pulses b/l, warm, well-perfused. No pitting edema b/l. NEUROLOGICAL: Cranial nerves II-XII grossly intact. Normal speech. PSYCHIATRIC: Cooperative. Appropriate mood and affect upon my encounter. SKIN: Sacral ulcer bandaged clean, dry. Laboratory Results - last 24 hr 05/18/18 05/20/18 05/20/18 15:35 16:15 21:57 WBC RBC Hgb Hct MCV MCH MCHC RDW Plt Count MPV Sodium Potassium Chloride Carbon Dioxide Anion Gap BUN Creatinine Creat Clearance w eGFR POC Glucometer 114 94 Random Glucose Calcium Hep A IgM Ab Confirm Negative Hepatitis A Ab Total Positive H Hep Bs Antigen Negative Hep Bs Antibody Reactive Hep B Core Total Ab Negative 05/21/18 05/21/18 05/21/18 05:48 10:15 10:15 WBC 5.2 RBC 2.42 L Hgb 8.0 L Hct 23.4 L MCV 96.6 H MCH 33.1 MCHC 34.2 RDW 20.3 H Plt Count 227 MPV 8.5 Sodium 139 Potassium 3.2 L Chloride 101 Carbon Dioxide 30 Anion Gap 8 BUN 31 H Creatinine 3.4 H Creat Clearance w eGFR 13.03 POC Glucometer 75 Random Glucose 106 Calcium 8.4 L Hep A IgM Ab Confirm Hepatitis A Ab Total Hep Bs Antigen Hep Bs Antibody Hep B Core Total Ab 05/21/18 11:59 WBC RBC Hgb Hct MCV MCH MCHC RDW Plt Count MPV Sodium Potassium Chloride Carbon Dioxide Anion Gap BUN Creatinine Creat Clearance w eGFR POC Glucometer 141 Random Glucose Calcium Hep A IgM Ab Confirm Hepatitis A Ab Total Hep Bs Antigen Hep Bs Antibody Hep B Core Total Ab Active Medications Generic Name Dose Route Start Last Admin Trade Name Freq PRN Reason Stop Dose Admin Amlodipine Besylate 5 mg 05/20/18 10:00 05/20/18 09:03 Norvasc - PO 5 mg DAILY HARPAL Administration Collagenase 1 applic 05/20/18 10:00 05/20/18 09:12 Santyl - TP 1 applic DAILY HARPAL Administration Protocol Ceftriaxone Sodium 1 gm/ 50 mls @ 100 mls/hr 05/19/18 10:00 05/20/18 09:03 Dextrose IVPB 100 mls/hr DAILY HARPAL Administration Protocol Metronidazole 500 mg in 100 mls @ 100 mls/hr 05/18/18 18:00 05/21/18 01:20 Flagyl 500mg Premixed Ivpb - IVPB 100 mls/hr Q8H-IV HARPAL Administration Insulin Aspart 1 vial 05/20/18 11:00 05/21/18 12:06 Novolog Vial Sliding Scale - SQ Not Given ACHS HARPAL Protocol Lactobacillus Acidophilus 1 tab 05/20/18 10:00 05/20/18 09:03 Bacid - PO 1 tab DAILY HARPAL Administration Metoprolol Tartrate 25 mg 05/20/18 10:00 05/20/18 21:59 Lopressor - GT 25 mg BID HARPAL Administration Mirtazapine 15 mg 05/20/18 22:00 05/20/18 21:59 Remeron - GT 15 mg HS HARPAL Administration ASSESSMENT/PLAN: Patient is a 78 year old female with history of ESRD on HD Tues, Th, Sat, s/ p kidney transplant, diabetes mellitus, hypertension, Afib not on anticoagulation presents with complaint of abdominal pain. Cholecystitis, questionable -Right upper quadrant US shows mild nonspecific gallbladder over-distension with borderline wall thickening. No obvious cholelithiasis, or definite biliary tract dilation noted. -Surgical consult (Dr. Kelly). No acute surgical intervention at this time. Acute hypoxic respiratory failure, secondary to healthcare associated pneumonia -Chest xray shows ateletcatic changes with questionable infiltrate left lung. -Rocephin 1 gram IV daily (day #4) -Flagyl 500mg IV Q8H (day #4) -Patient currently saturating well on room air. No respiratory distress. -Repeat chest Xray today. -ID consult (Dr. Azevedo) appreciated Urinary tract infection -Urine culture is growing E. coli (sensitive to Ceftriaxone) -Patient is already receiving Ceftriaxone 1 gram IV daily (day #4) Hypertensive Urgency -resolved -Amlodipine 5mg GT daily -Metoprolol 25mg GT BID -Follow vital signs closely, manual BP Afib- currently not on anticoagulation -Metoprolol 25mg GT BID for rate control Diabetes mellitus -Fingerstick blood glucose monitoring ACHS -Insulin sliding scale ACHS ESRD on HD , , Sun -Nephrology consult (Dr. Winters) appreciated -Patient for HD today with goal 1kg fluid removal. -Epoetin Abe 10,000 units Iv today. Sacral decubitus ulcer -Clean, dry, no acute signs of infection -Continue santyl dressing daily -Wound care consult (Dr. Neri) -Follow wound culture Dementia, depression -Remeron 15mg GT daily History of C. difficile collitis -Patient has completed outaptient Vancomycin therapy -Currently receiving Flagyl 500mg IV Q8H (day #4) FEN -No IV fluids indicated -Follow CMP -Nepro tube feeds Disposition -Continue care in telemetry floor. Visit type - Emergency Visit Emergency Visit: Yes ED Registration Date: 05/17/18 Care time: The patient presented to the Emergency Department on the above date and was hospitalized for further evaluation of their emergent condition. - New Patient This patient is new to me today: No - Critical Care Critical Care patient: No - Discharge Referral Referred to [facility] No
[2018-05-21] MEDS ORDERED: cefTRIAXone SODIUM 1 GM VIAL ONE (13:21)
[2018-05-21] MEDS ORDERED: DEXTROSE 5%-WATER - 50 ML IVPB ONE (13:21)
[2018-05-21] MEDS: LACTOBACILLUS ACIDOPHILUS 1 TABLET PO SCH (13:47)
[2018-05-21] MEDS: amLODIPine BESYLATE 5 MG TABLET (FP) PO SCH (13:47)
--- NOTE | 2018-05-21 15:30 | DS ---
Physical Exam: SUBJECTIVE: Patient seen and examined at bedside this morning. She denies acute complaints today. OBJECTIVE: Vital Signs Period Temp Pulse Resp BP Sys/Franco Pulse Ox Last 24 Hr 97.3 F-97.9 F 67-79 18-20 140-180/70-98 94-95 PHYSICAL EXAM GENERAL: Awake, alert, and oriented to person and place, in no acute distress. HEAD: Normocephalic, atraumatic EYES: Pupils equal, round and reactive to light, extraocular movements intact b/ l without nystagus. Conjunctiva not injected. EARS, NOSE, THROAT: Oropharynx clear without exudates without lesions. Dry mucous membranes. NECK: Supple without lymphadenopathy, or JVD LUNGS: Good inspiratory effort. Bibasilar crackles auscultated left > right auscultated. Patient is not using accessory muscles of respiration. HEART: Regular rate and rhythm, normal S1 and S2 without murmur, rub or gallop. ABDOMEN: Soft, diffusely tender to deep palpation, most pronounced at right upper quadrant. Normoactive bowel sounds X4 quadrants. No rebound tenderness. No hepatomegaly palpated or percussed. PEG tube site noted clean, dry, nondraining. MUSCULOSKELETAL: Thin, emaciated b/l upper and lower extremities. UPPER EXTREMITIES: 2+ radial pulses b/l, warm, well-perfused. LOWER EXTREMITIES: 1+ dorsalis pedis pulses b/l, warm, well-perfused. No pitting edema b/l. NEUROLOGICAL: Cranial nerves II-XII grossly intact. Normal speech. PSYCHIATRIC: Cooperative. Appropriate mood and affect upon my encounter. SKIN: Sacral ulcer bandaged clean, dry. LABS Laboratory Results - last 24 hr 05/18/18 05/20/18 05/20/18 15:35 16:15 21:57 WBC RBC Hgb Hct MCV MCH MCHC RDW Plt Count MPV Sodium Potassium Chloride Carbon Dioxide Anion Gap BUN Creatinine Creat Clearance w eGFR POC Glucometer 114 94 Random Glucose Calcium Hep A IgM Ab Confirm Negative Hepatitis A Ab Total Positive H Hep Bs Antigen Negative Hep Bs Antibody Reactive Hep B Core Total Ab Negative 05/21/18 05/21/18 05/21/18 05:48 10:15 10:15 WBC 5.2 RBC 2.42 L Hgb 8.0 L Hct 23.4 L MCV 96.6 H MCH 33.1 MCHC 34.2 RDW 20.3 H Plt Count 227 MPV 8.5 Sodium 139 Potassium 3.2 L Chloride 101 Carbon Dioxide 30 Anion Gap 8 BUN 31 H Creatinine 3.4 H Creat Clearance w eGFR 13.03 POC Glucometer 75 Random Glucose 106 Calcium 8.4 L Hep A IgM Ab Confirm Hepatitis A Ab Total Hep Bs Antigen Hep Bs Antibody Hep B Core Total Ab 05/21/18 11:59 WBC RBC Hgb Hct MCV MCH MCHC RDW Plt Count MPV Sodium Potassium Chloride Carbon Dioxide Anion Gap BUN Creatinine Creat Clearance w eGFR POC Glucometer 141 Random Glucose Calcium Hep A IgM Ab Confirm Hepatitis A Ab Total Hep Bs Antigen Hep Bs Antibody Hep B Core Total Ab HOSPITAL COURSE: Date of Admission:05/17/18 Date of Discharge: 05/21/18 Patient is a 78 year old female with history of ESRD on HD , , Sun, s/ p kidney transplant, diabetes mellitus, hypertension, Afib not on anticoagulation presents with complaint of abdominal pain. Hypertensive urgency upon admission controlled with Hydralazine one time dose, and home medications Norvasc, and Lopressor. Right upper quadrant US showed mild nonspecific gallbladder over-distension with borderline wall thickening. No obvious cholelithiasis, or definite biliary tract dilation noted. Surgical consult discussed no acute surgical intervention at this time. Nepro tube feeds reinstated. Patient also complained of shortness of breath with productive cough. Chest xray showed ateletcatic changes with questionable infiltrate left lung. Acute hypoxic respiratory failure secondary to healthcare associated pneumonia managed with Rocephin and Flagyl with ID recommendation. No growth on blood cultures. Urine culture grew E.coli that was sensitive to Rocephin. Patient was evaluated by hardboard grinder, received Epogen, and hemodialysis reinstated while hospitalized, resolving her hyponatremia. Afib rate controlled with Metoprolol. Insulin sliding scale for diabetes mellitus. Remeron reinstated for dementia, depression. Santyl dressings changed daily for sacral wound. Patient discharged to continue home medications, and Levaquin, Flagyl. Discharged home with VNS services. Follow up with primary care physician, nephrology, and wound care. Minutes to complete discharge: 45 Discharge Summary Reason For Visit: CHOLECYSTITIS Current Active Problems Acute respiratory failure with hypoxia (Acute) Cholecystitis (Acute) HTN (hypertension) (Acute) Malnutrition (Acute) Sacral decubitus ulcer, stage III (Acute) Sepsis (Acute) UTI (urinary tract infection) (Acute) Weakness (Acute) ESRD (end stage renal disease) on dialysis (Chronic) Condition: Stable - Instructions Diet, Activity, Other Instructions: You were admitted to hospital with abdominal pain. You were evaluated by general surgeon who recommended no surgical intervention at this time. Chest Xray shows possible pneumonia within the lung and you were treated with IV antibiotics. You are being discharged home Continue taking your home medications as directed. You will take antibiotic Levaquin 750mg daily for the next 7 days. Continue taking antibiotic Flagyl 500mg every 8 hours for the next 7 days. Follow up with your primary care physician within two- three days of discharge. A referral to [facility] [place] [facility] has been provided. Follow up with hardboard grinder Dr. Winters) within one week of discharge. Follow up with wound care clinic (Dr. Neri) within one week of discharge. Continue your Hemodialysis appointments Sunday, , Sunday as scheduled. Please follow the following wound care instructions for your sacral ulcer, for any other pressure sites. 1) Santyl to sacrum daily, 2) Allevyn over sacrum, daily 3) Allevyn over bilateral heels daily 4) Offload pressure areas with frequent repositioning daily Return to the nearest Emergency Department if you experience any worsening symptoms, fevers, chills ,shortness of breath, chest pain, palpitations, abdominal pain, nausea, vomiting. Referrals: [facility] [place] [Provider Group] Simeon Neri MD [Staff Physician] - Danielle Winters MD [Staff Physician] - Disposition: VNS/HOME HEALTH CARE - Home Medications Comprehensive Discharge Medication List: Ambulatory Orders Lactobacillus Acidophilus [Bacid -] 1 each PO DAILY 30 Days #30 tab 04/08/18 Mirtazapine [Remeron -] 15 mg GT DAILY 30 Days #30 tablet 04/08/18 Amlodipine Besylate [Norvasc -] 5 mg PO DAILY 04/20/18 Metoprolol Tartrate [Lopressor -] 25 mg GT BID 04/20/18 Nut.tx.imp.renal Fxn,Lac-Reduc [Nepro Carb Steady] 236 ml PO TID 04/20/18 Ascorbate Calcium [Vitamin C] 500 mg PO DAILY #30 tablet 04/25/18 Collagenase Clostridium Hist. [Santyl -] 1 applic TP DAILY #1 applic 04/25/18 Miscellaneous Medical Supply [Outpatient Order] 1 each ASDIR #1 misc Zinc 50 mg PO DAILY #30 tablet 04/25/18 Collagenase Clostridium Hist. [Santyl -] 1 applic TP DAILY #1 bottle 05/21/18 Foam Bandage [Allevyn Gentle Border Heel] 1 each TP DAILY #30 bandage 05/21/18 Levofloxacin [Levaquin] 750 mg GT DAILY 7 Days #7 tablet 05/21/18 Nut.tx.imp.renal Fxn,Lac-Reduc [Nepro Carb Steady] 237 ml PO TID 30 Days #90 bottle 05/21/18 metroNIDAZOLE [Flagyl -] 500 mg GT Q8H 7 Days #21 tablet 05/21/18 This patient is new to me today: No Emergency Visit: Yes ED Registration Date: 05/17/18 Care time: The patient presented to the Emergency Department on the above date and was hospitalized for further evaluation of their emergent condition. Critical Care patient: No - Discharge Referral Referred to [facility] No
[2018-05-21 15:43] VITALS: BP 158/92; PULSE 74; TEMP 97.6
== END 2018-05-21 16:20 | disposition home health service (06) | DRG 871 ==
LOC: JER 14:13 → JERBED 19:12 → J4S 05-18 14:51
PROVIDERS: ADMIT Internal Medicine
PROC: 5A1D70Z Performance of Urinary Filtration, Intermittent, Less than 6 Hours Per Day (ICD-10-PCS; principal; 2018-05-21)
DX: A41.9 Sepsis, unspecified organism (principal); L89.154 Pressure ulcer of sacral region, stage 4; J69.0 Pneumonitis due to inhalation of food and vomit; N18.6 End stage renal disease; E43 Unspecified severe protein-calorie malnutrition; J18.9 Pneumonia, unspecified organism; J96.01 Acute respiratory failure with hypoxia; I12.0 Hypertensive chronic kidney disease with stage 5 chronic kidney disease or end stage renal disease; Z68.1 Body mass index [BMI] 19.9 or less, adult; I16.1 Hypertensive emergency; E87.1 Hypo-osmolality and hyponatremia; K81.0 Acute cholecystitis; N39.0 Urinary tract infection, site not specified; Z93.1 Gastrostomy status; F03.90 Unspecified dementia, unspecified severity, without behavioral disturbance, psychotic disturbance, mood disturbance, and anxiety; D63.1 Anemia in chronic kidney disease; I48.91 Unspecified atrial fibrillation; R62.7 Adult failure to thrive; E87.6 Hypokalemia; F32.9 Major depressive disorder, single episode, unspecified; E11.9 Type 2 diabetes mellitus without complications; E87.70 Fluid overload, unspecified; Z99.2 Dependence on renal dialysis
CPT/HCPCS: 36415; 36600; 71045-TC-FY; 76705-TC; 80048; 80053; 81003; 81015; 82550; 82803; 82962; 83605; 83690; 83735; 83880; 84100; 84484; 85025; 85027; 85610; 85730; 86704; 86706; 86708; 86803; 86850; 86870; 86900; 86901; 86902; 87040; 87070; 87086; 87186; 87205; 87252; 87254; 87340; 87804; 93005; 93010; 97161-GP; 99285-25; J0885

== ENCOUNTER 2018-05-31 19:12 | Emergency (ER) | payer OTHER, BC ==
[2018-05-31 19:40] VITALS: BP 192/97; PULSE 74; TEMP 96.4; BMI 25.0
--- NOTE | 2018-05-31 19:43 | PDOC ---
History of Present Illness - General Chief Complaint: Injury Stated Complaint: FALL Time Seen by Provider: 05/31/18 19:43 History Source: Patient Exam Limitations: No Limitations - History of Present Illness Initial Comments: 05/31/18 20:01 Patient is a 78 yo F with PMH of ESRD on HD (//Sun) s/p kidney transplant , DM, HTN, AF not on ac due to GIB, diverticulosis, dementia, who presents s/ p unwitnessed fall at home. Patient fell out of bed in her sleep, hitting L side of her body including forehead, L arm and leg. She is usually wheel chair bound, was unable to get up after the fall. denies LOC, h/a, neck pain, change in vision, ringing in ears, vertigo. complains of pain in L femur and L humerus. 05/31/18 20:26 05/31/18 20:28 Past History - Past Medical History Allergies/Adverse Reactions: Allergies Allergy/AdvReac Type Severity Reaction Status Date / Time No Known Allergies Allergy Verified 05/31/18 19:40 Home Medications: Ambulatory Orders Lactobacillus Acidophilus [Bacid -] 1 each PO DAILY 30 Days #30 tab 04/08/18 Mirtazapine [Remeron -] 15 mg GT DAILY 30 Days #30 tablet 04/08/18 Amlodipine Besylate [Norvasc -] 5 mg PO DAILY 04/20/18 Metoprolol Tartrate [Lopressor -] 25 mg GT BID 04/20/18 Nut.tx.imp.renal Fxn,Lac-Reduc [Nepro Carb Steady] 236 ml PO TID 04/20/18 Ascorbate Calcium [Vitamin C] 500 mg PO DAILY #30 tablet 04/25/18 Collagenase Clostridium Hist. [Santyl -] 1 applic TP DAILY #1 applic 04/25/18 Miscellaneous Medical Supply [Outpatient Order] 1 each ASDIR #1 misc Zinc 50 mg PO DAILY #30 tablet 04/25/18 Collagenase Clostridium Hist. [Santyl -] 1 applic TP DAILY #1 bottle 05/21/18 Foam Bandage [Allevyn Gentle Border Heel] 1 each TP DAILY #30 bandage 05/21/18 Levofloxacin [Levaquin] 750 mg GT DAILY 7 Days #7 tablet 05/21/18 Nut.tx.imp.renal Fxn,Lac-Reduc [Nepro Carb Steady] 237 ml PO TID 30 Days #90 bottle 05/21/18 metroNIDAZOLE [Flagyl -] 500 mg GT Q8H 7 Days #21 tablet 05/21/18 Anemia: No Asthma: No Cancer: No Cardiac Disorders: No CVA: No COPD: No CHF: No Dementia: Yes Diabetes: Yes Dialysis: Yes GI Disorders: Yes (hx c-diff, GI bleed) Disorders: No HTN: Yes Hypercholesterolemia: Yes Seizures: No Thyroid Disease: No - Immunization History Immunization Up to Date: Yes - Suicide/Smoking/Psychosocial Hx Smoking History: Unknown if ever smoked Have you smoked in the past 12 months: No Information on smoking cessation initiated: No Hx Alcohol Use: No Drug/Substance Use Hx: No Substance Use Type: None Hx Substance Use Treatment: No Review of Systems - Review of Systems Able to Perform ROS?: Yes Is the patient limited [place] proficient: No Constitutional: No: Chills, Fever HEENTM: No: Blurred Vision, Double Vision, Nose Congestion, Nose Bleeding, Throat Pain Respiratory: No: Cough, Orthopnea, Shortness of Breath Cardiac (ROS): No: Chest Pain, Edema, Lightheadedness, Palpitations, Syncope ABD/GI: No: Constipated, Diarrhea, Nausea, Vomiting, Abdominal cramping : No: Dysuria Musculoskeletal: No: Back Pain, Joint Pain, Neck Pain Neurological: No: Headache, Numbness, Paresthesia *Physical Exam - Vital Signs Last Vital Signs Temp Pulse Resp BP Pulse Ox 96.4 F L 74 16 192/97 H 96 05/31/18 19:12 05/31/18 19:12 05/31/18 19:12 05/31/18 19:12 05/31/18 19:12 - Physical Exam General Appearance: Yes: Appropriately Dressed, Mild Distress, Cachetic HEENT: positive: EOMI, LIZET, Normal Voice. negative: Scleral Icterus (R), Scleral Icterus (L) Neck: positive: Trachea midline, Supple, Other (no cervical paraspinal pain). negative: Tender Respiratory/Chest: positive: Lungs Clear, Normal Breath Sounds Cardiovascular: positive: Regular Rhythm, Regular Rate, S1, S2. negative: Edema , JVD Gastrointestinal/Abdominal: positive: Normal Bowel Sounds, Flat, Soft, Other ( peg in place). negative: Tender Musculoskeletal: negative: CVA Tenderness Extremity: positive: Tender (very tender L femur, mildly tender L humerus. 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 LE pain liklely mostly due to decubitus ulcer. CT head and cervical spine unremarkable for acute pathology BP baseline high, elevated further by pain will dc home 05/31/18 23:24 *DC/Admit/Observation/Transfer Diagnosis at time of Disposition: Sacral decubitus ulcer, stage III, ESRD (end stage renal disease) on dialysis, Failure to thrive in adult, Sacral decubitus ulcer Fall Qualifiers: Encounter type: initial encounter Qualified Code(s): W19.XXXA - Unspecified fall, initial encounter - Discharge Dispostion Disposition: HOME Condition at time of disposition: Stable Decision to Admit order: No - Referrals - Patient Instructions Printed Discharge Instructions: How to Prevent Pressure Ulcers, How to Prevent Falls Additional Instructions: head ct was negative for bleeding but because of Mrs Nick age she is still at some risk for bleeding in the brain. Velvet watch her closely overnight, and wake her up every 4 hr to make sure she is arousable. if she exhibits any change in mental status bring her back to ED - Post Discharge Activity
--- NOTE | 2018-05-31 19:56 | PDOC ---
Attending Attestation - HPI HPI: 05/31/18 20:35 The patient is a 78 year old female, with a significant PMH of ESRD (on dialysis ) s/p kidney transplant 10/08, DM, hypertension, atrial fibrillation (not on anticoagulation due to GI bleed on prior admission with colonoscopy significant for diverticulosis), dementia, who presents to the emergency department for evaluation s/p unwitnessed fall at home. The patient states she was getting out of bed when she fell hitting the left side of her body. The patient denies any LOC. The patient states she was unable to get up from the ground by herself. The patient endorses pain in the left hip. The patient denies any neck or back pain. Denies any bowel or bladder incontinence. The patient denies chest pain, shortness of breath, headache and dizziness. Denies fever, chills, nausea, vomit, diarrhea and constipation. Denies dysuria, frequency, urgency and hematuria. Allergies: NKA Documentation prepared by Mor Graham, acting as medical oncology physician for Wanda Hanson MD. - Physicial Exam PE: 05/31/18 20:36 GENERAL: (+) Catechetic. Awake, alert, and fully oriented, in no acute distress HEAD: No signs of trauma EYES: PERRLA, EOMI, sclera anicteric, conjunctiva clear ENT: Auricles normal inspection, hearing grossly normal, nares patent, oropharynx clear without exudates. Moist mucosa NECK: Normal ROM, supple, no lymphadenopathy, JVD, or masses LUNGS: Breath sounds equal, clear to auscultation bilaterally. No wheezes, and no crackles HEART: Regular rate and rhythm, normal S1 and S2, no murmurs, rubs or gallops ABDOMEN: Soft, nontender, normoactive bowel sounds. No guarding, no rebound. No masses BACK: (+) Ulcer on lower back sacral area. EXTREMITIES: (+) Pain on left leg posterior aspect upper and lower. Normal range of motion, no edema. No clubbing or cyanosis. No cords, erythema, or tenderness NEUROLOGICAL: Cranial nerves II through XII grossly intact. Normal speech. SKIN: Warm, Dry, normal turgor, no rashes or lesions noted. <Mor Graham - Last Filed: 05/31/18 20:45> - Resident Resident Name: Cosmo Tonymila - ED Attending Attestation I have performed the following: I have examined & evaluated the patient, The case was reviewed & discussed with the resident, I agree w/resident's findings & plan - Medical Decision Making 06/01/18 00:40 Pt has a normal head CT as well as normal c spine CT. She has questionable minimal compression at C1, by reading, however, nothing on physical exam. 06/01/18 03:51 I spoke to pt's son at home and he is awaiting mom's arrival by EMS transport. Pt is stable for discharge home. <Wanda Hanson - Last Filed: 06/01/18 03:52>
[2018-05-31] MEDS ORDERED: ACETAMINOPHEN 325 MG TABLET (FP) PO ONE (20:14)
[2018-05-31] MEDS ORDERED: morphine CARPU-JECT 2 MG/1 ML DISP.SYRIN IM ONE (20:14)
[2018-05-31] MEDS ORDERED: ACETAMINOPHEN 325 MG TABLET (FP) ONE (20:30)
[2018-05-31] MEDS ORDERED: MORPHINE SULFATE 2 MG/ML VIAL ONE (20:31)
== END 2018-06-01 02:52 | disposition home or self-care (01) ==
LOC: JER 19:12
PROC: 3E0233Z Introduction of Anti-inflammatory into Muscle, Percutaneous Approach (ICD-10-PCS; principal; 2018-05-31)
DX: M25.552 Pain in left hip (principal); M79.662 Pain in left lower leg; M79.652 Pain in left thigh; W06.XXXA Fall from bed, initial encounter; Y93.89 Activity, other specified; Y92.013 Bedroom of single-family (private) house as the place of occurrence of the external cause; Y99.8 Other external cause status; I12.0 Hypertensive chronic kidney disease with stage 5 chronic kidney disease or end stage renal disease; E11.22 Type 2 diabetes mellitus with diabetic chronic kidney disease; N18.6 End stage renal disease; N17.8 Other acute kidney failure; Z99.2 Dependence on renal dialysis; Z94.0 Kidney transplant status; F03.90 Unspecified dementia, unspecified severity, without behavioral disturbance, psychotic disturbance, mood disturbance, and anxiety; I48.91 Unspecified atrial fibrillation; Z99.3 Dependence on wheelchair; R62.7 Adult failure to thrive; Z68.25 Body mass index [BMI] 25.0-25.9, adult; R64 Cachexia; L89.153 Pressure ulcer of sacral region, stage 3
CPT/HCPCS: 70450-TC; 72125-TC; 73060-TC-LT-FY; 73502-TC-LT-FY; 73552-TC-LT-FY; 73560-TC-LT-FY; 96372; 99282-25